=== PATIENT | female | born 1980 | race Caucasian/White ===

== ENCOUNTER 2016-12-04 10:29 | Emergency (ER) | payer OTHER ==
[~2016-12-04] VITALS: Ht 160 cm; Wt 52.0 kg
[~2016-12-04 10:29] MED LIST: ACET-1256 PO; IMT100 PO; METH500T37 PO; ONDA-63 PO; PRT/40 PO; SUCR5SUS PO; TRAM-10 PO
[2016-12-04 10:33] VITALS: TEMP 37; Ht 160 cm; Wt 52.0 kg
[2016-12-04] MEDS ORDERED: XYLOCAINE 1%/SOD BICARB 20 ML VIAL INFIL ONE (10:44)
[2016-12-04] MEDS ORDERED: HYDROCODONE/ACETAMOPHEN 5/325MG TAB PO ONE (11:45)
[2016-12-04] MEDS ORDERED: CEPHALEXIN MONOHYDRATE 250 MG CAP PO ONE (11:45)
[2016-12-04] MEDS ORDERED: ONDANSETRON 4MG OD TAB ONE (11:49)
[2016-12-04] MEDS ORDERED: HYDR-5688 PO (12:19)
[2016-12-04] MEDS ORDERED: CEPH500C PO (12:19)
--- NOTE | 2016-12-04 12:20 | EMERGENCY ROOM VISIT NOTE ---
ED Visit Note First contact with patient: 11:21 Chief Complaint: RIGHT Foot Laceration History of Present Illness: This patient is a 35-year-old female who presents to the Emergency Department this morning for evaluation of their RIGHT foot laceration. Patient sustained the laceration while stepping on broken glass in her garage at approximately 4:30 this morning. She did not feel the laceration was as bad at that point which delayed her visit to the emergency department. They report a moderate amount of bleeding initially. They deny any numbness or tingling into the distal extremity. They have tried nothing for the pain. Patient rates her current discomfort as an 8/10. Patient's Tetanus status is currently up-to-date. Medications: Reviewed and discussed with the patient. Allergies: Morphine PMH: No pertinent past medical history. SHx: Patient is a 35-year-old female who lives locally. ROS: All pertinent positive and negative review of systems are appropriately documented in the History of Present Illness. Physical Exam: VITAL SIGNS - Vital signs and nursing notes were reviewed. GENERAL - 35-year-old female appearing her stated age who is in no acute distress. Communicates well with provider and answers questions appropriately. SKIN - There is a 5.0 cm long laceration noted to the plantar surface of the mid foot. The edges gape apart with traction. No foreign bodies appreciated. Upon further examination there are no deep structures including vessel, tendon, or bony structures appreciated. There is no active bleeding noted. MUSCULOSKELETAL -full range of motion of the RIGHT foot and toes appreciated. + 5/5 strength appreciated bilaterally. NEUROLOGIC - Spinothalamic tract was found to be intact with ability to discriminate sharp versus dull sensation at the level of hip joint down do the great toe. No sensory defects of the dorsal column were appreciated utilizing light touch for evaluation. VASCULAR - Capillary refill was brisk. IMAGING: RIGHT FOOT MIN 3 VIEWS ROUTINE CLINICAL HISTORY: Right foot pain status post trauma. COMPARISON: None. DISCUSSION: No acute fractures are visualized. There is a mild first metatarsal bunion deformity. Soft tissue irregularity involving the mid plantar aspect of the foot may be secondary to a laceration. No radiopaque foreign bodies are evident. IMPRESSION: No fractures or dislocations are visualized. No radiopaque foreign bodies are evident. ED Course: Patient was seen and evaluated by myself. Patient was provided one Valatie for pain. Costs and benefits of performing primary wound closure versus no repair were discussed with the patient who verbalizes understanding. Verbal consent was obtained prior to performing the procedure. 5.0 cc of 1% buffered lidocaine was used to anesthetize the right foot laceration. The wound was cleansed and prepped in the typical sterile fashion utilizing normal saline and Betadine. The wound was sterilely draped. Once proper anesthetization was established, the wound was further examined and demonstrated a full-thickness laceration. No foreign bodies appreciated. No deep structures injured. The wound was copiously irrigated with normal saline and Betadine. The wound was closed using 9 simple, 4-0 nylon sutures with the wound edges being loosely approximated. Patient tolerated the procedure well. No complications were met. The wound was cleansed and dressed with a Bacitracin dressing. X-ray was obtained of the affected foot. No foreign bodies noted. Patient was treated with Keflex. She' ll follow closely with orthopedic surgery for evaluation secondary to extended laceration and delayed wound closure. She was provided postop shoe and crutches. Patient educated on worrisome symptoms for return visit to the Emergency Department. Patient discharged to home in good condition. Impression: RIGHT Foot Laceration with Delayed Closure Discharge Instructions: You have received 9 sutures on your RIGHT Foot. These sutures are NOT dissolvable and WILL need to be removed by a health care provider in 12-14 days. You can return to the Emergency Department or contact your Primary Care Provider to have the sutures removed. Please use the splint and crutches until you're able to ambulate without a limp. Please follow-up ortho as discussed. Proper wound care is essential for adequate wound healing and infection prevention. You can shower and clean the wound with soap and water. Do not scour over the wound, pat dry with a towel. Do not submerse the wound (i.e. bathe or dish wash) until the sutures have been removed. You can use an antibiotic ointment with a dressing over the wound for the next 3-4 days. After this time you may leave the wound dry and open to the air. If crust develops over the wound you can use a Q-tip to apply a 1:1 peroxide:water solution to clean the wound. Look for signs of infection of the wound including: increased pain, swelling, foul discharge, streaking, or increased temperature. If any of these are noticed you should return to the Emergency Department for further assessment and treatment. As with any laceration you may have received nerve damage to the surrounding tissues. This damage may or may not be permanent. You should keep the area covered with sunscreen for the first 6 months to 1 year when at risk for exposure to help minimize scarring. You can also use scar reducing creams or Vitamin E oil to help minimize scarring. You have been prescribed Valatie to be used for pain control. This is a narcotic medication. You cannot drive or consume alcohol while on this medicine. This medicine should only be used for pain that cannot be controlled with over-the- counter pain medicines. You were prescribed Keflex to be taken as prescribed. This is an antibiotic. All antibiotics have the potential to cause diarrhea. Stop this medication and contact a medical provider if you were to develop any significant adverse side effects including: wheezing, shortness of breath, passing out, vomiting, or a diffuse rash. Always take antibiotics as directed and COMPLETE the ENTIRE course regardless of the improvement of your symptoms. For pain control, you can use the following [id number] medicines (if >12 yo): - Regular strength (325mg/tab) Tylenol (acetaminophen) 2 tabs every 4-6 hours as needed. Do not exceed 12 tablets in a 24 hour period. Avoid taking more than 4 grams (4000 mg) of Tylenol per day. This includes any other sources of acetaminophen you may take on a regular basis. - Regular strength (200 mg/tab) Advil (ibuprofen) 1-2 tabs every 4-6 hours as needed. Do not exceed a dose of 3200 mg per day. Return to the emergency department if your symptoms worsen despite treatment course outlined above. 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 (2) Gastroesophageal reflux disease Status: Chronic (3) Hiatal hernia Status: Chronic (4) Major depressive disorder Status: Chronic (5) Migraines Status: Chronic Surgical Problems: (1) S/P lumpectomy of breast Status: Chronic Current/Historical Medications Scheduled Cephalexin Monohydrate (Keflex), 500 MG PO QID Methocarbamol (Robaxin), 500 MG PO DAILY Pantoprazole (Pantoprazole Sodium), 40 MG PO BID Scheduled PRN Acetaminophen (Tylenol), 1,000 MG PO Q6H PRN for Pain Hydrocodone/Acetaminophen 5MG/325MG (Valatie 5MG/325MG), 1-2 TABLET PO Q4H PRN for Pain Ondansetron (Ondansetron HCl), 8 MG PO Q12 PRN for Nausea or Vomiting Sumatriptan Succinate (Imitrex), 100 MG PO UD PRN for Migraine Allergies Coded Allergies: Morphine (Unverified Adverse Reaction, Unknown, "MAKES ME SICK(VOMITING)" , 12/04/16) Vital Signs Date Time Temp Pulse Resp B/P Pulse Ox O2 Delivery O2 Flow Rate FiO2 12/04/16 12:44 94 18 123/82 96 Room Air 12/04/16 10:33 37.0 117 16 118/77 95 Room Air Medications Administered Medications (Trade) Dose Ordered Sig/Salo Route Start Time Stop Time Status Last Admin Dose Admin Acetaminophen/ Hydrocodone Bitart (Valatie 5/325 Tab) 1 tab NOW ONCE PO 12/04/16 11:45 12/04/16 11:46 DC 12/04/16 11:41 1 TAB Cephalexin Monohydrate (Keflex Cap) 500 mg NOW ONCE PO 12/04/16 11:45 12/04/16 11:46 DC 12/04/16 11:41 500 MG Ondansetron HCl (Zofran Odt) 4 mg STK-MED ONCE .ROUTE 12/04/16 11:49 12/04/16 11:52 DC 12/04/16 11:56 4 MG Departure Information Impression Primary Impression: Laceration of foot Dispostion Home / Self-Care Condition GOOD Prescriptions Hydrocodone/Acetaminophen 5MG/325MG (Valatie 5MG/325MG) Tab 1-2 TABLET PO Q4H Y for Pain, #20 TAB For Initial Treatment Prov: Zay Yang PA-C 12/04/16 Cephalexin Monohydrate (Keflex) 500 Mg Cap 500 MG PO QID for 5 Days, #20 CAP Prov: Zay Yang PA-C 12/04/16 Referrals Nacho Forrseter III, CRNP (PCP) Enrique Anderson D.O. Patient Instructions ED Laceration Foot, [facility] Additional Instructions You have received 9 sutures on your RIGHT Foot. These sutures are NOT dissolvable and WILL need to be removed by a health care provider in 12-14 days. You can return to the Emergency Department or contact your Primary Care Provider to have the sutures removed. Please use the splint and crutches until you're able to ambulate without a limp. Please follow-up ortho as discussed. Proper wound care is essential for adequate wound healing and infection prevention. You can shower and clean the wound with soap and water. Do not scour over the wound, pat dry with a towel. Do not submerse the wound (i.e. bathe or dish wash) until the sutures have been removed. You can use an antibiotic ointment with a dressing over the wound for the next 3-4 days. After this time you may leave the wound dry and open to the air. If crust develops over the wound you can use a Q-tip to apply a 1:1 peroxide:water solution to clean the wound. Look for signs of infection of the wound including: increased pain, swelling, foul discharge, streaking, or increased temperature. If any of these are noticed you should return to the Emergency Department for further assessment and treatment. As with any laceration you may have received nerve damage to the surrounding tissues. This damage may or may not be permanent. You should keep the area covered with sunscreen for the first 6 months to 1 year when at risk for exposure to help minimize scarring. You can also use scar reducing creams or Vitamin E oil to help minimize scarring. You have been prescribed Valatie to be used for pain control. This is a narcotic medication. You cannot drive or consume alcohol while on this medicine. This medicine should only be used for pain that cannot be controlled with over-the- counter pain medicines. You were prescribed Keflex to be taken as prescribed. This is an antibiotic. All antibiotics have the potential to cause diarrhea. Stop this medication and contact a medical provider if you were to develop any significant adverse side effects including: wheezing, shortness of breath, passing out, vomiting, or a diffuse rash. Always take antibiotics as directed and COMPLETE the ENTIRE course regardless of the improvement of your symptoms. For pain control, you can use the following [id number]-xor-yfybrog medicines (if >12 yo): - Regular strength (325mg/tab) Tylenol (acetaminophen) 2 tabs every 4-6 hours as needed. Do not exceed 12 tablets in a 24 hour period. Avoid taking more than 4 grams (4000 mg) of Tylenol per day. This includes any other sources of acetaminophen you may take on a regular basis. - Regular strength (200 mg/tab) Advil (ibuprofen) 1-2 tabs every 4-6 hours as needed. Do not exceed a dose of 3200 mg per day. Return to the emergency department if your symptoms worsen despite treatment course outlined above. Problem Qualifiers Primary Impression: Laceration of foot Encounter type: initial encounter Laterality: right Qualified Codes: S91.311A - Laceration without foreign body, right foot, initial encounter
--- NOTE | 2016-12-04 12:38 | DIAGNOSTIC IMAGING REPORT ---
RIGHT FOOT MIN 3 VIEWS ROUTINE CLINICAL HISTORY: Right foot pain status post trauma. COMPARISON: None. DISCUSSION: No acute fractures are visualized. There is a mild first metatarsal bunion deformity. Soft tissue irregularity involving the mid plantar aspect of the foot may be secondary to a laceration. No radiopaque foreign bodies are evident. IMPRESSION: No fractures or dislocations are visualized. No radiopaque foreign bodies are evident. Electronically signed by: Willis Virgen M.D. 12/04/2016 12:36 PM Dictated Date/Time: 12/04/2016 12:35 PM
[2016-12-04 12:44] VITALS: BP 123/82; PULSE 94; O2SAT 96
== END 2016-12-04 12:47 | disposition home or self-care (01) ==
LOC: C.EDB 10:31 → C.EDD 12:47
DX: S91.311A Laceration without foreign body, right foot, initial encounter (principal); W25.XXXA Contact with sharp glass, initial encounter; Y92.015 Private garage of single-family (private) house as the place of occurrence of the external cause; K21.9 Gastro-esophageal reflux disease without esophagitis; F32.9 Major depressive disorder, single episode, unspecified; Z79.899 Other long term (current) drug therapy

== ENCOUNTER → 2016-12-19 | Outpatient (CLI) | payer OTHER ==
[~2016-12-19] MED LIST changes: +HYDR-5688 PO; -SUCR5SUS PO; -TRAM-10 PO
[2016-12-19 11:50] LABS: ALT/SGPT 29 U/L (12-78); BLOOD UREA NITROGEN 17 mg/dl (7-18); BUN/CREATININE RATIO 23.6 (10-20); CALCIUM 9.1 mg/dl (8.5-10.1); CARBON DIOXIDE 31 mmol/L (21-32); CHLORIDE 99 mmol/L (98-107); GLUCOSE 149 mg/dl (70-99); POTASSIUM 3.8 mmol/L (3.5-5.1); SODIUM 137 mmol/L (136-145)
[2016-12-19 12:01] LABS: ALB/GLOB RATIO 1.1 (0.9-2); ALKALINE PHOSPHATASE 104 U/L (45-117); AST/SGOT 24 U/L (15-37)
== END | disposition home or self-care (01) ==
LOC: C.LAB1850 10:12
PROVIDERS: ATTEND Nurse Practitioner Family
DX: F32.9 Major depressive disorder, single episode, unspecified (principal); R74.8 Abnormal levels of other serum enzymes; Z87.19 Personal history of other diseases of the digestive system

== ENCOUNTER → 2016-12-24 | Outpatient (CLI) | payer OTHER ==
[~2016-12-24] MED LIST changes: +PANT40TA2 PO; -PRT/40 PO
== END | disposition home or self-care (01) ==
LOC: C.PAPS 14:42
PROVIDERS: ATTEND Physician Assistant
DX: Z12.4 Encounter for screening for malignant neoplasm of cervix (principal)

== ENCOUNTER 2017-09-22 08:41 | Emergency (ER) | payer OTHER ==
[~2017-09-22] VITALS: Ht 160 cm; Wt 52.0 kg
[~2017-09-22 08:41] MED LIST changes: -HYDR-5688 PO
[2017-09-22 08:44] VITALS: TEMP 36.6; Ht 160 cm; Wt 52.0 kg
[2017-09-22] MEDS ORDERED: ONDANSETRON INJ 2 MG/ML 2 ML VIAL IV STA (08:50)
[2017-09-22] MEDS ORDERED: SODIUM CHLORIDE 0.9% 1000ML 1,000 ML IV STA ×2 (08:50→10:26)
--- NOTE | 2017-09-22 09:19 | EMERGENCY ROOM VISIT NOTE ---
History Report prepared by Sherif: Kourtney Savage Under the Supervision of: Dr. Austin Church M.D. First contact with patient: 08:47 Chief Complaint: GI ASSESSMENT Stated Complaint: EXTREME PAIN/VOMITING Nursing Triage Summary: pt ot the ED with c/o epigastric pain with n/v since yesterday History of Present Illness The patient is a 36 year old female who presents to the Emergency Room with complaints of constant epigastric pain beginning two days ago. The patient states she has also had nausea and vomiting. She rates her pain as a 9/10. She denies any blood in her vomit or stool. The patient has a history of pancreatitis. She reports she was supposed to have her gallbladder removed a year ago but didn't end up needing too because she changed her eating habits. The patient notes increased stress over the past two weeks. The patient notes decreased appetite but denies diarrhea or fever. She reports taking Tylenol, Zofran, and Protonix with no relief. She denies any chance of . She has been using some alcohol over the holidays. Source of History: patient Onset: two days ago Position: other (epigatric) Symptom Intensity: 9/10 Timing: constant Associated Symptoms: + nausea, + vomiting, No fevers, No diarrhea Review of Systems See HPI for pertinent positives & negatives. A total of 10 systems reviewed and were otherwise negative. Past Medical & Surgical Medical Problems: (1) Acute gallstone pancreatitis (2) Drug overdose (3) Epigastric abdominal pain (4) Gastroesophageal reflux disease (5) Hiatal hernia (6) Major depressive disorder (7) Migraines (8) Peptic ulcer disease (9) RUQ abdominal pain Surgical Problems: (1) S/P lumpectomy of breast Family History Cancer Diabetes mellitus Gastric ulcer Heart disease Hypertension FATHER Kidney disease Kidney stones Stroke FATHER Social History Smoking Status: Never Smoker Alcohol Use: occasionally Drug Use: none Marital Status: single Housing Status: lives alone Occupation Status: unemployed Current/Historical Medications Scheduled Cephalexin Monohydrate (Keflex), 500 MG PO TID Methocarbamol (Robaxin), 500 MG PO DAILY Pantoprazole (Pantoprazole Sodium), 40 MG PO BID Scheduled PRN Acetaminophen (Tylenol), 1,000 MG PO Q6H PRN for Pain Ondansetron (Ondansetron HCl), 8 MG PO Q12 PRN for Nausea or Vomiting Oxycodone Ir (Roxicodone Ir), 1-2 TAB PO Q4H PRN for Pain Promethazine Hcl (Phenergan), 25 MG PO Q6H PRN for Nausea Sumatriptan Succinate (Imitrex), 100 MG PO UD PRN for Migraine Allergies Coded Allergies: Morphine (Unverified Adverse Reaction, Unknown, "MAKES ME SICK(VOMITING)" , 09/22/17) Physical Exam Vital Signs Date Time Temp Pulse Resp B/P (MAP) Pulse Ox O2 Delivery O2 Flow Rate FiO2 09/22/17 10:23 86 18 129/8 98 Room Air 09/22/17 08:44 36.6 98 16 132/92 98 Room Air Physical Exam GENERAL: Patient is in no acute distress. HEENT: No acute trauma, normocephalic atraumatic, mucous membranes dry, no nasal congestion, no scleral icterus. NECK: No stridor, no adenopathy, no meningismus, trachea is midline. LUNGS: Clear to auscultation bilaterally, no wheeze, no rhonchi, breath sounds equal. HEART: Without murmurs gallops or rubs, regular rate and rhythm. ABDOMEN: Moderately tender to epigastric region. Soft, bowel sounds positive, no hernias, no peritonitis. EXTREMITIES: No cyanosis or edema, full range of motion of all the joints without pain or difficulty, no signs for acute trauma. NEUROLOGIC: Oriented x 3, no acute motor or sensory deficits, no focal weakness. SKIN: No rash, no jaundice, no diaphoresis. Medical Decision & Procedures ER Provider Diagnostic Interpretation: Radiology results as stated below per my review and radiologist interpretation: ABDOMEN 2VIEW W/PA CHEST RTN FINDINGS: Cardiomediastinal silhouette normal. Lungs and pleural spaces clear. Nonobstructive bowel gas pattern. No gross pneumoperitoneum. Allowing for bowel gas and stool, no calcifications to suggest nephrolithiasis. Multiple pelvic phleboliths noted. Osseous structures normal. IMPRESSION: 1. No acute cardiopulmonary disease. 2. No radiographic evidence of acute intra-abdominal pathology. Electronically signed by: Enrique Mast M.D. GALLBLADDER-ABD LIMITED FINDINGS: Pancreas: Visualized portions of the pancreatic head and body normal. Mildly prominent ducts though within the range of normal. Liver: Moderately hyperechogenic parenchyma with partial obscuration of the right hemidiaphragm, likely indicating moderate steatosis. The liver measures 16 cm in maximal sagittal dimension. No sonographic evidence of hepatic mass. Main portal vein patent with normal directional flow. Biliary: No intrahepatic biliary ductal dilatation. Common bile duct measures up to 6 mm in diameter. Gallbladder: Gallbladder sludge may be present. No evidence of gallstones, gallbladder wall thickening, gallbladder distention, or pericholecystic fluid or inflammatory change. Right kidney: Normal in appearance. No hydronephrosis. Ascites: None. IMPRESSION: 1. Hepatic steatosis. Correlate with liver function tests to exclude steatohepatitis as a cause for abdominal pain. 2. No cholelithiasis or biliary ductal dilatation. Electronically signed by: Enrique Mast M.D. Laboratory Results 09/22/17 09:10 Red Blood Count 4.54, Mean Corpuscular Volume 100.9, Mean Corpuscular Hemoglobin 34.4, Mean Corpuscular Hemoglobin Concent 34.1, Mean Platelet Volume 9.5, Neutrophils (%) (Auto) 63.5, Lymphocytes (%) (Auto) 21.6, Monocytes (%) ( Auto) 14.2, Eosinophils (%) (Auto) 0.2, Basophils (%) (Auto) 0.3, Neutrophils # (Auto) 4.11, Lymphocytes # (Auto) 1.40, Monocytes # (Auto) 0.92, Eosinophils # ( Auto) 0.01, Basophils # (Auto) 0.02 09/22/17 09:10 Test 09/22/17 09:10 09/22/17 10:42 White Blood Count 6.47 K/uL (4.8-10.8) Red Blood Count 4.54 M/uL (4.2-5.4) Hemoglobin 15.6 g/dL (12.0-16.0) Hematocrit 45.8 % (37-47) Mean Corpuscular Volume 100.9 fL (80-100) Mean Corpuscular Hemoglobin 34.4 pg (25-34) Mean Corpuscular Hemoglobin Concent 34.1 g/dl (32-36) Platelet Count 258 K/uL (130-400) Mean Platelet Volume 9.5 fL (7.4-10.4) Neutrophils (%) (Auto) 63.5 % Lymphocytes (%) (Auto) 21.6 % Monocytes (%) (Auto) 14.2 % Eosinophils (%) (Auto) 0.2 % Basophils (%) (Auto) 0.3 % Neutrophils # (Auto) 4.11 K/uL (1.4-6.5) Lymphocytes # (Auto) 1.40 K/uL (1.2-3.4) Monocytes # (Auto) 0.92 K/uL (0.11-0.59) Eosinophils # (Auto) 0.01 K/uL (0-0.5) Basophils # (Auto) 0.02 K/uL (0-0.2) RDW Standard Deviation 48.1 fL (36.4-46.3) RDW Coefficient of Variation 13.2 % (11.5-14.5) Immature Granulocyte % (Auto) 0.2 % Immature Granulocyte # (Auto) 0.01 K/uL (0.00-0.02) Urine Color SULY Urine Appearance CLOUDY (CLEAR) Urine pH 5.0 (4.5-7.5) Urine Specific [place] 1.043 (1.000-1.030) Urine Protein 1+ (NEG) Urine Glucose (UA) NEG (NEG) Urine Ketones 4+ (NEG) Urine Occult Blood 2+ (NEG) Urine Nitrite POS (NEG) Urine Bilirubin NEG (NEG) Urine Urobilinogen NEG (NEG) Urine Leukocyte Esterase TRACE (NEG) Urine WBC (Auto) 1-5 /hpf (0-5) Urine RBC (Auto) 10-30 /hpf (0-4) Urine Hyaline Casts (Auto) 1-5 /lpf (0-5) Urine Epithelial Cells (Auto) >30 /lpf (0-5) Urine Bacteria (Auto) 1+ (NEG) Urine Pathogenic Casts /lpf (0) Urine Mucus PRESENT (NONE PRSENT) Anion Gap 12.0 mmol/L (3-11) Est Creatinine Clear Calc Drug Dose 94.4 ml/min Estimated GFR () 130.1 Estimated GFR (Non- 112.3 BUN/Creatinine Ratio 13.2 (10-20) Calcium Level 8.8 mg/dl (8.5-10.1) Magnesium Level 2.0 mg/dl (1.8-2.4) Total Bilirubin 1.2 mg/dl (0.2-1) Direct Bilirubin 0.3 mg/dl (0-0.2) Aspartate Amino Transf (AST/SGOT) 155 U/L (15-37) Alanine Aminotransferase (ALT/SGPT) 136 U/L (12-78) Alkaline Phosphatase 193 U/L (45-117) Troponin I < 0.015 ng/ml (0-0.045) Total Protein 7.6 gm/dl (6.4-8.2) Albumin 4.1 gm/dl (3.4-5.0) Lipase 358 U/L (73-393) Human Chorionic Gonadotropin, Qual NEG (NEG) Hepatitis B Surface Antigen NEG (NEG) Hepatitis C Antibody NEG (NEG) Laboratory results reviewed by me. Medications Administered Medications (Trade) Dose Ordered Sig/Salo Route Start Time Stop Time Status Last Admin Dose Admin Ondansetron HCl (Zofran Inj) 4 mg NOW STAT IV 09/22/17 08:50 09/22/17 08:55 DC 09/22/17 09:20 4 MG Sodium Chloride 1,000 ml @ 999 mls/hr Q1H1M STAT IV 09/22/17 08:50 09/22/17 09:50 DC 09/22/17 09:21 999 MLS/HR Hydromorphone HCl (Dilaudid Inj) 1 mg Q30M PRN IV 09/22/17 09:00 09/22/17 12:00 DC 09/22/17 10:11 1 MG Promethazine HCl 12.5 mg/Sodium Chloride 50.5 ml @ 204 mls/hr NOW STAT IV 09/22/17 10:05 09/22/17 10:19 DC 09/22/17 10:23 204 MLS/HR Ceftriaxone Sodium (Rocephin Inj) 1 gm NOW STAT IV 09/22/17 10:13 09/22/17 10:14 DC 09/22/17 10:33 1 GM Sodium Chloride 1,000 ml @ 999 mls/hr Q1H1M STAT IV 09/22/17 10:26 09/22/17 11:26 DC 09/22/17 10:30 999 MLS/HR Promethazine HCl (Phenergan Tab) 100 mg NOW ONCE PO 09/22/17 11:30 09/22/17 11:31 DC 09/22/17 11:43 100 MG Oxycodone HCl (Roxicodone Immediate Rel 5MG Home Pack) 1 homepack UD ONCE PO 09/22/17 11:30 09/22/17 11:31 DC 09/22/17 11:42 1 HOMEPACK Oxycodone HCl (Roxicodone Immediate Rel 5MG Home Pack) 1 homepack UD ONCE PO 09/22/17 11:30 09/22/17 11:31 DC 09/22/17 11:44 1 HOMEPACK Cephalexin Monohydrate (Keflex 500MG Home Pack) 1 homepack NOW ONCE PO 09/22/17 11:30 09/22/17 11:31 DC 09/22/17 11:43 1 HOMEPACK ED Course 0849: The patient was evaluated in room B7. A complete history and physical exam was performed. 0850: Ordered Sodium Chloride 1000 ml @ 999 mls/hr IV, Zofran Inj 4 mg IV. 0900: Ordered Dilaudid Inj 1 mg IV. 1003: The patient is still vomiting. 1005: Ordered Promethazine HCl 12.5 mg/Sodium Chloride 50.5 ml @ 204 mls/hr IV. 1013: Ordered Rocephin Inj 1 gm IV. 1024: I updated the patient and she is feeling a little better. I talked to her about staying in the hospital and she would like to go home. She would like to talk to her GI doctor tomorrow. 1026: Ordered Sodium Chloride 1000 ml @ 999 mls/hr IV. 1109: The patient is feeling better and is resting comfortably. 1130: Ordered Cephalexin Monohydrate 1 homepack PO, Oxycodone HCl 1 homepack PO , Oxycodone HCl 1 homepack PO, Phenergan Tab 100 mg PO. 1140: The patient is doing well and would like to go home. 1145: Reevaluated the patient. Discussed results and discharge instructions: She verbalized understanding and agreement. The patient is ready for discharge. Medical Decision Differential diagnoses include: bowel obstruction, gastritis, pancreatitis, biliary colic, acute cholecystitis, UTI, dehydration, electrolyte imbalance, viral illness, food borne illness. There is no leukocytosis or concerning anemia. No significant electrolyte abnormality or kidney failure. No evidence for pancreatitis. EKG shows a sinus rhythm, no acute ischemia. Cardiac enzyme testing times one is not consistent with acute cardiac injury. Liver enzyme testing does show elevations consistent with a hepatitis. Obstruction series shows no bowel obstruction or free air, no pneumonia. Gallbladder ultrasound did not show evidence for acute cholecystitis or for gallstones. Urinalysis is suggestive of infection. Urine culture is pending. The patient received IV saline, IV Zofran and IV Dilaudid. She was given IV Phenergan and IV ceftriaxone. I talked to the patient about staying in the hospital because of the liver enzyme elevations, she does not want to stay. She will contact her GI doctor tomorrow. She wants to go home as it is . The patient will be discharged on Keflex for the urinary infection, Phenergan for nausea and oxycodone for pain. She will stick to a very bland diet. She will stay hydrated. If she is worsening, she has agreed to return for reassessment. I suspect her gallbladder is responsible for her presentation today although the UTI could be contributing. She has had issues similar to today's in the past. [place] Drug Monitoring Program Search Results: patient reviewed within database, no issues identified Medication Reconcilliation Current Medication List: was personally reviewed by me Blood Pressure Screening Patient's blood pressure: Elevated blood pressure Blood pressure disposition: Elevated BP felt to be situational Impression Primary Impression: Nausea & vomiting Additional Impressions: Dehydration Hepatitis UTI (urinary tract infection) Scribe Attestation The scribe's documentation has been prepared under my direction and personally reviewed by me in its entirety. I confirm that the note above accurately reflects all work, treatment, procedures, and medical decision making performed by me. Departure Information Dispostion Home / Self-Care Prescriptions Oxycodone Ir (Roxicodone Ir) 5 Mg Tab 1-2 TAB PO Q4H Y for Pain, #6 TAB Prov: Austin Church M.D. 09/22/17 Promethazine Hcl (Phenergan) 25 Mg Tab 25 MG PO Q6H Y for Nausea, #12 TAB Prov: Austin Church M.D. 09/22/17 Cephalexin Monohydrate (Keflex) 500 Mg Cap 500 MG PO TID for 7 Days, #21 CAP Prov: Austin Church M.D. 09/22/17 Referrals Nacho Forrester III, CRNP (PCP) Forms HOME CARE DOCUMENTATION FORM, IMPORTANT VISIT INFORMATION Patient Instructions My [facility] Additional Instructions phenergan 1 tab every 6 hours for nausea bland diet--crackers, soup, toast, gatorade oxy ir 1-2 tab every 4 hours for pain keflex 1 tab 3x per day for [address] Kelley tomorrow return for fever, worsening symptoms or persistent vomiting Problem Qualifiers
[2017-09-22] MEDS: HYDROmorphone INJ 2 MG/ML SYR/VIAL IV PRN ×2 (09:20→10:11)
[2017-09-22 09:25] LABS: BASO % 0.3 %; BASO ABS # 0.02 K/uL (0-0.2); COMPLETE YES; EOS % 0.2 %; HEMATOCRIT 45.8 % (37-47); IG% 0.2 %; LYMPH % 21.6 %; MEAN CELL VOLUME 100.9 fL (80-100); MEAN CORPUSCULAR HEMOGLOBIN 34.4 pg (25-34); MEAN CORPUSCULAR HGB CONC 34.1 g/dl (32-36); MEAN PLATELET VOLUME 9.5 fL (7.4-10.4); MONO % 14.2 %; NEUT % 63.5 %; PLATELET COUNT 258 K/uL (130-400); RED BLOOD COUNT 4.54 M/uL (4.2-5.4); WHITE BLOOD COUNT 6.47 K/uL (4.8-10.8)
[2017-09-22 09:29] LABS: URINE APPEARANCE CLOUDY (CLEAR); URINE EPITHELIAL CELL AUTO >30 /lpf (0-5); URINE NITRITE POS (NEG); URINE SPECIFIC GRAVITY 1.043 (1.000-1.030); UROBILINOGEN NEG (NEG)
[2017-09-22 09:39] LABS: MANUAL MICROSCOPIC REQUIRED? NO; REVIEW REQ? YES
[2017-09-22 09:41] LABS: ALT/SGPT 136 U/L (12-78); BLOOD UREA NITROGEN 9 mg/dl (7-18); BUN/CREATININE RATIO 13.2 (10-20); CALCIUM 8.8 mg/dl (8.5-10.1); CARBON DIOXIDE 28 mmol/L (21-32); CHLORIDE 93 mmol/L (98-107); CREATININE 0.67 mg/dl (0.60-1.20); GLUCOSE 97 mg/dl (70-99); POTASSIUM 3.5 mmol/L (3.5-5.1); SODIUM 133 mmol/L (136-145); URINE BILIRUBIN NEG (NEG); URINE COLOR AMBER
[2017-09-22 09:46] LABS: ALKALINE PHOSPHATASE 193 U/L (45-117); AST/SGOT 155 U/L (15-37)
[2017-09-22 09:50] LABS: URINE MUCUS PRESENT (NONE PRSENT)
[2017-09-22 09:52] LABS: ZZUR CULT IF INDIC CLEAN CATCH YES
[2017-09-22 09:53] LABS: PREG INTERNAL NEGATIVE QC NEG CLEAR BACKGROUND; PREG INTERNAL POSITIVE QC POS CONTROL LINE
[2017-09-22] MEDS ORDERED: PROMETHAZINE HCL INJ 12.5 MG in SODIUM CHLORIDE 0.9% 50ML 50 ML IV STA (10:05)
--- NOTE | 2017-09-22 10:06 | DIAGNOSTIC IMAGING REPORT ---
GALLBLADDER-ABD LIMITED CLINICAL HISTORY: 36 years-old Female presenting with ABDOMINAL PAIN/GI. TECHNIQUE: Real-time grayscale and limited color Doppler ultrasound imaging of the abdomen limited to the right upper quadrant was performed. COMPARISON: 08/16/2016. FINDINGS: Pancreas: Visualized portions of the pancreatic head and body normal. Mildly prominent ducts though within the range of normal. Liver: Moderately hyperechogenic parenchyma with partial obscuration of the right hemidiaphragm, likely indicating moderate steatosis. The liver measures 16 cm in maximal sagittal dimension. No sonographic evidence of hepatic mass. Main portal vein patent with normal directional flow. Biliary: No intrahepatic biliary ductal dilatation. Common bile duct measures up to 6 mm in diameter. Gallbladder: Gallbladder sludge may be present. No evidence of gallstones, gallbladder wall thickening, gallbladder distention, or pericholecystic fluid or inflammatory change. Right kidney: Normal in appearance. No hydronephrosis. Ascites: None. IMPRESSION: 1. Hepatic steatosis. Correlate with liver function tests to exclude steatohepatitis as a cause for abdominal pain. 2. No cholelithiasis or biliary ductal dilatation. Electronically signed by: Enrique Mast M.D. 09/22/2017 10:05 AM Dictated Date/Time: 09/22/2017 9:55 AM
--- NOTE | 2017-09-22 10:07 | DIAGNOSTIC IMAGING REPORT ---
ABDOMEN 2VIEW W/PA CHEST RTN CLINICAL HISTORY: 36 years-old Female presenting with vomiting, epigastric pain. TECHNIQUE: PA view of the chest and supine and upright views of the abdomen were obtained. COMPARISON: 02/25/2016. FINDINGS: Cardiomediastinal silhouette normal. Lungs and pleural spaces clear. Nonobstructive bowel gas pattern. No gross pneumoperitoneum. Allowing for bowel gas and stool, no calcifications to suggest nephrolithiasis. Multiple pelvic phleboliths noted. Osseous structures normal. IMPRESSION: 1. No acute cardiopulmonary disease. 2. No radiographic evidence of acute intra-abdominal pathology. Electronically signed by: Enrique Mast M.D. 09/22/2017 10:06 AM Dictated Date/Time: 09/22/2017 10:05 AM
[2017-09-22] MEDS ORDERED: CEFTRIAXONE SOD INJ 1 GM ADDVIAL IV STA (10:13)
[2017-09-22 10:23] VITALS: BP 129/8; PULSE 86; O2SAT 98
[2017-09-22] MEDS ORDERED: CEPHALEXIN 500MG HOME PACK 1 EA BTL PO ONE (11:30)
[2017-09-22] MEDS ORDERED: PROMETHAZINE HCL 25 MG TAB PO ONE (11:30)
[2017-09-22] MEDS ORDERED: OXYCODONE IR HOME PACK PO ONE ×2 (11:30)
[2017-09-22] MEDS ORDERED: CEPH500C PO (11:32)
[2017-09-22] MEDS ORDERED: PROM25TA9 PO (11:32)
[2017-09-22] MEDS ORDERED: OXYC1TAB3 PO (11:32)
[2017-09-22] MEDS ORDERED: EMPTY 8 DRAM VIAL ONE (11:34)
== END 2017-09-22 11:51 | disposition home or self-care (01) ==
LOC: C.EDB 08:43
DX: R11.2 Nausea with vomiting, unspecified (principal); E86.0 Dehydration; K75.9 Inflammatory liver disease, unspecified; N39.0 Urinary tract infection, site not specified; K21.9 Gastro-esophageal reflux disease without esophagitis; Z87.19 Personal history of other diseases of the digestive system; Z87.11 Personal history of peptic ulcer disease; Z80.9 Family history of malignant neoplasm, unspecified; Z83.3 Family history of diabetes mellitus; Z83.79 Family history of other diseases of the digestive system; Z82.49 Family history of ischemic heart disease and other diseases of the circulatory system; Z84.1 Family history of disorders of kidney and ureter; Z82.3 Family history of stroke

== ENCOUNTER 2018-04-26 16:18 | Emergency (ER) | payer OTHER ==
[~2018-04-26] VITALS: Ht 160 cm; Wt 50.7 kg
[2018-04-26 16:24] VITALS: O2SAT 100; Ht 160 cm; Wt 50.7 kg
[2018-04-26] MEDS ORDERED: SODIUM CHLORIDE 0.9% 1000ML 1,000 ML IV STA (16:36)
[2018-04-26] MEDS ORDERED: SODIUM CHLORIDE 0.9% 1000ML 1,000 ML IV ONE (16:36)
--- NOTE | 2018-04-26 16:37 | EMERGENCY ROOM VISIT NOTE ---
History Report prepared by Sherif: Singh Marmolejo Under the Supervision of: Dr. Fernando Euceda M.D. First contact with patient: 16:24 Chief Complaint: SYNCOPE Stated Complaint: SYNCOPE OR SEIZURE History of Present Illness The patient is a 37 year old female who presents to the Emergency Room with complaints of a resolved syncopal episode that occurred prior to arrival. 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 She reports she was at work today when she walked into the kitchen and felt warm. The patient notes the next thing she remembered she was on the ground with cooks around her. She states she does not remember being laid down. The patient reports she was told she was out for 1 minute. She notes she did not eat much yesterday, and she did not eat today. The patient states she was too nervous last night to sleep. She reports she recently started BuSpar and Zoloft a few days ago, and she has not felt herself. The patient notes she did not take BuSpar today. She states a history of migraines and used Imitrex a few days ago. The patient denies recent sickness, a history of these symptoms, a history of seizures, a history of heart problems, fevers, numbness, weakness, headache, biting her tongue, incontinent of urine, shortness of breath, chest pain, abdominal pain, control use, chance of , alcohol dependency, taking extra medication, and history of thyroid problems. 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 All other systems reviewed were negative unless otherwise stated in history. At least 10 were reviewed Past Medical & Surgical Medical Problems: (1) Acute gallstone pancreatitis (2) Drug overdose (3) Epigastric abdominal pain (4) Gastroesophageal reflux disease (5) Hiatal hernia (6) Major depressive disorder (7) Migraines (8) Peptic ulcer disease (9) RUQ abdominal pain Surgical Problems: (1) S/P lumpectomy of breast Old medical records were reviewed. Nurse's notes were reviewed and I agree with. Family History Cancer Diabetes mellitus Gastric ulcer Heart disease Hypertension FATHER Kidney disease Kidney stones Stroke FATHER Social History Smoking Status: Never Smoker Alcohol Use: occasionally Drug Use: none Marital Status: single Housing Status: lives alone Occupation Status: unemployed Current/Historical Medications Scheduled Buspirone HCl (Buspirone HCl), 5 MG PO BID Methocarbamol (Robaxin), 500 MG PO DAILY Pantoprazole (Pantoprazole Sodium), 40 MG PO BID Sertraline (Zoloft), 100 MG PO DAILY Scheduled PRN Acetaminophen (Tylenol), 1,000 MG PO Q6H PRN for Pain Ondansetron (Ondansetron HCl), 8 MG PO Q12 PRN for Nausea or Vomiting Sumatriptan Succinate (Imitrex), 100 MG PO UD PRN for Migraine Allergies Coded Allergies: Morphine (Unverified Adverse Reaction, Unknown, "MAKES ME SICK(VOMITING)" , 04/26/18) Physical Exam Vital Signs Date Time Temp Pulse Resp B/P (MAP) Pulse Ox O2 Delivery O2 Flow Rate FiO2 04/26/18 20:54 36.9 95 21 121/81 100 04/26/18 19:49 96 22 118/78 100 Room Air 04/26/18 18:36 99 18 118/77 99 Room Air 04/26/18 18:01 106 16 109/76 100 Room Air 04/26/18 16:56 122 18 137/82 100 Room Air 04/26/18 16:30 125 04/26/18 16:24 36.9 125 12 143/101 99 Room Air 04/26/18 16:24 100 Room Air Physical Exam General: Non-ill appearing, mildly shaking with movements, young female in no acute distress. HEENT: Normal cephalic atraumatic. Pupils are equal round and reactive to light. Extraocular movements are intact. Oropharynx is pink with moist mucous membranes. No swelling of the mouth or lips. Abrasion to the left lateral tongue. Neck: Supple with a midline trachea. No meningeal signs or stiffness, no JVD or bruits. No Stridor. Chest: Clear to auscultation bilaterally. No wheezes or rhonchi. No increased work of breathing. Heart: Tachycardic rate and regular rhythm. Abdomen: Soft nontender, nondistended without rebound guarding or rigidity. Extremities: No cyanosis clubbing or edema. No calf tenderness or assymetry Spine/Back. Non tender to palpation. No CVA tenderness Skin: Good turgor without rashes. Neurologic exam: Alert and oriented x3, answers questions appropriately. Cranial nerves two through 12 are intact. Motor and sensation are intact and symmetrical throughout. Medical Decision & Procedures ER Provider Diagnostic Interpretation: Radiology results as stated below per my review and radiologist interpretation: HEAD WITHOUT CONTRAST (CT) CT DOSE: 537.48 mGy.cm HISTORY: Mental status change seizure TECHNIQUE: Multiaxial CT images of the head were performed without the use of intravenous contrast. A dose lowering technique was utilized adhering to the principles of ALARA. Comparison: 08/14/2011 Findings: The paranasal sinuses and mastoid air cells are clear. The calvarium and skull base are intact. The ventricles and sulci are within normal limits. There is no mass, hematoma, midline shift, or acute infarct. Impression: No acute intracranial abnormality. The above report was generated using voice recognition software. It may contain grammatical, syntax or spelling errors. Electronically signed by: Mike Del Rio M.D. 04/26/2018 5:26 PM Dictated Date/Time: 04/26/2018 5:25 PM ECTOPIC CLINICAL HISTORY: eval for ectopic pain TECHNIQUE: Ultrasound COMPARISON STUDY: None FINDINGS: An intrauterine gestational sac is identified. A yolk sac is present. pole cannot be confirmed on this may be secondary to the very early gestational age of 5 weeks 2 days. The right ovary measures 2.9 cm. Left ovary measures 2.5 cm. Several small subcentimeter follicular cysts. IMPRESSION: Intrauterine gestational sac. A pole cannot be identified although this may be secondary to the early gestational age. Follow-up scanning in 2 weeks is suggested to confirm viability. The above report was generated using voice recognition software. It may contain grammatical, syntax or spelling errors. Electronically signed by: Mike Del Rio M.D. 04/26/2018 7:38 PM Dictated Date/Time: 04/26/2018 7:37 PM Laboratory Results 04/26/18 16:46 Red Blood Count 4.04, Mean Corpuscular Volume 97.5, Mean Corpuscular Hemoglobin 34.4, Mean Corpuscular Hemoglobin Concent 35.3, Mean Platelet Volume 9.0, Neutrophils (%) (Auto) 78.8, Lymphocytes (%) (Auto) 10.7, Monocytes (%) (Auto) 9.8, Eosinophils (%) (Auto) 0.1, Basophils (%) (Auto) 0.5, Neutrophils # (Auto) 5.78, Lymphocytes # (Auto) 0.79, Monocytes # (Auto) 0.72, Eosinophils # (Auto) 0.01, Basophils # (Auto) 0.04 04/26/18 16:46 Test 04/26/18 16:40 04/26/18 16:46 Urine Test POS (NEG) White Blood Count 7.35 K/uL (4.8-10.8) Red Blood Count 4.04 M/uL (4.2-5.4) Hemoglobin 13.9 g/dL (12.0-16.0) Hematocrit 39.4 % (37-47) Mean Corpuscular Volume 97.5 fL (80-100) Mean Corpuscular Hemoglobin 34.4 pg (25-34) Mean Corpuscular Hemoglobin Concent 35.3 g/dl (32-36) Platelet Count 244 K/uL (130-400) Mean Platelet Volume 9.0 fL (7.4-10.4) Neutrophils (%) (Auto) 78.8 % Lymphocytes (%) (Auto) 10.7 % Monocytes (%) (Auto) 9.8 % Eosinophils (%) (Auto) 0.1 % Basophils (%) (Auto) 0.5 % Neutrophils # (Auto) 5.78 K/uL (1.4-6.5) Lymphocytes # (Auto) 0.79 K/uL (1.2-3.4) Monocytes # (Auto) 0.72 K/uL (0.11-0.59) Eosinophils # (Auto) 0.01 K/uL (0-0.5) Basophils # (Auto) 0.04 K/uL (0-0.2) RDW Standard Deviation 44.2 fL (36.4-46.3) RDW Coefficient of Variation 12.5 % (11.5-14.5) Immature Granulocyte % (Auto) 0.1 % Immature Granulocyte # (Auto) 0.01 K/uL (0.00-0.02) Anion Gap 14.0 mmol/L (3-11) Est Creatinine Clear Calc Drug Dose 86.0 ml/min Estimated GFR () 125.2 Estimated GFR (Non- 108.1 BUN/Creatinine Ratio 10.5 (10-20) Calcium Level 8.5 mg/dl (8.5-10.1) Total Bilirubin 0.8 mg/dl (0.2-1) Direct Bilirubin 0.3 mg/dl (0-0.2) Aspartate Amino Transf (AST/SGOT) 176 U/L (15-37) Alanine Aminotransferase (ALT/SGPT) 144 U/L (12-78) Alkaline Phosphatase 180 U/L (45-117) Total Protein 7.0 gm/dl (6.4-8.2) Albumin 3.6 gm/dl (3.4-5.0) Lipase 175 U/L (73-393) Thyroid Stimulating Hormone (TSH) 3.220 uIu/ml (0.300-4.500) Human Chorionic Gonadotropin, Quant 9403 mIU/mL Laboratory studies as stated above per my review. Medications Administered Medications (Trade) Dose Ordered Sig/Salo Route Start Time Stop Time Status Last Admin Dose Admin Sodium Chloride 1,000 ml @ 999 mls/hr Q1H1M STAT IV 04/26/18 16:36 04/26/18 17:36 DC 04/26/18 16:50 999 MLS/HR Diphenhydramine HCl (Benadryl Cap) 25 mg NOW ONCE PO 04/26/18 19:00 04/26/18 19:01 DC 04/26/18 18:53 25 MG ECG Per My Interpretation Indication: syncope Rate (beats per minute): 123 Rhythm: sinus tachycardia Findings: no acute ischemic change, other (Low voltage) Comparison ECG Date: 02/22/2016 Change: Rate has increased. ED Course 1626: Past medical records reviewed. The patient was evaluated in room B06, and a complete history and physical examination were performed. 1636: Ordered Sodium Chloride 1000 ml @ 999 mls/hr IV 1730: I reevaluated the patient, answered all of her questions, and she appears comfortable. 174: I reevaluated the patient. She is comfortable and on her way to ultrasound. 0: Ordered Benadryl 25mg PO 1937: I attempted to reevaluate the patient. She was not back from ultrasound yet. 1958: I reevaluated the patient and updated her of her current test results. She is 100% sure she does not want to keep this . She is absolute sure she wants an . 2000: I discussed the patient's case with the pharmacist. I asked her to review the patient's medication. 2008: I discussed the patient's case with Dr. Brewer, [facility]. He will follow- up with the patient as an outpatient. 2024: I spoke with Betty, the pharmacist. She states if Zoloft is a starting dose, it should be lower to 25. She notes every psychiatric drug has a chance of a syncopal or seizure episode. The Robaxin is the worst for her , and she should stop it if she wants to continue the . 2032: Upon reevaluation, the patient is resting. I discussed the results and treatment plan with her. She verbalized agreement of the treatment plan. The patient was discharged home. Medical Decision Differentials include, but are not limited to; electrolyte or metabolic abnormality, syncope, seizure, medication side-effect, dehydration, endocrinological trouble, toxicology. This patient comes in as described above. She is at work and had an episode where she apparently got stiff and looked like she was in a pass out and they helped her to the ground. She does not remember it. There was no postictal period. She did have some mild abrasions on her tongue and she may have bit her tongue. There was no incontinence. She did not sleep last night and is also on Friday psychiatric medicine. At present she feels mildly diffusely weak but has a nonfocal neurologic exam. She has nothing to suggest stroke or TIA. She has nothing to suggest infection. She has no headache. There is no trauma. IV access established hydrated IV normal saline bolus. EKG was obtained as well as CAT scan of her head and multiple blood testing and chest x- ray. I have discussed her care with her mother who is at the bedside as well. She was reassessed frequently. She was found to have a positive urine test in light of this I did a serum and it was over 8000. CAT scan of her head was done and we shielded her abdomen it was negative. EKG shows tachycardia without any significantly prolonged QT. She was very anxious initially. She has mildly low potassium and sodium and she says this is chronic. None of these are levels that would cause her symptoms. Her liver functions are mildly elevated and again this appears to be chronic. She has no abdominal pain. Ultrasound shows gestational sac that is intrauterine but no definite pole. She has had some vaginal bleeding. She asked for anxiety medication and was given Benadryl here 25 mg. she seemed to calm down after this she had minimal tremor her vital signs normalized and she is no longer significantly tachycardic. At this point, I do not think is likely a serotonin syndrome and if it was it was of mild and she has no altered mental status or clonus. I did talk to our pharmacist and shesaid that multiple medications that she is on could all cause either syncope or seizure. The patient told me that the Zoloft and BuSpar was started on these recently. The pharmacist recommended cutting the Zoloft down to 25 mg. And I also recommend the patient hold the BuSpar. In regards to , I talked to Dr. Brewer and she is to follow-up with them is unclear whether this is going to be a viable . The patient expresses to me that she has no desire to keep this and is 100% certain. she wants to terminate the . She is going to follow- up with Dr. Brewer's office and they can refer her if that is her wish. She was Rh+. In regard to her psychiatric medications, I do think she is to follow- up with her regular doctor who prescribes these. At this point, I think this is more likely medication related and not from an underlying seizure disorder. I told her that she is to be careful over the next couple days to the recheck her and she should not do any activities where she could hurt herself if she ate passed out or had another seizure. This would include swimming and driving. She and the mother were happy the plan and she was discharged to home. Medication Reconcilliation Current Medication List: was personally reviewed by me Blood Pressure Screening Patient's blood pressure: Normal blood pressure Blood pressure disposition: Did not require urgent referral Consults Consulting Physician: Betty, the pharmacist Returned Call: 2000 I discussed the patient's case with the pharmacist. I asked her to review the patient's medication. 2024: I spoke with Betty, the pharmacist. She states if Zoloft is a starting dose, it should be lower to 25. She notes every psychiatric drug has a chance of a syncopal or seizure episode. The Robaxin is the worst for her , and she should stop it if she wants to continue the . Additional Consults: Time Called: 2002 Consulted Physician: Dr. Brewer, [facility] Returned Call: 2008 Additional Comments: I discussed the patient's case with Dr. Brewer, [facility]. He will follow-up with the patient as an outpatient. Impression Primary Impression: Syncope Additional Impression: Scribe Attestation The scribe's documentation has been prepared under my direction and personally reviewed by me in its entirety. I confirm that the note above accurately reflects all work, treatment, procedures, and medical decision making performed by me. Departure Information Dispostion Home / Self-Care Referrals Diane Sorenson MD (PCP) Forms HOME CARE DOCUMENTATION FORM, IMPORTANT VISIT INFORMATION Patient Instructions My [facility] Additional Instructions Rest. Drink plenty of fluids. Ensure that you sleep adequately Hold your BuSpar- take for now Decreased your Zoloft back to 25 mg from [address] or swim or do any other activities where if you passed out or had a seizure you could hurt others until rechecked and cleared by your doctor Follow-up with your [facility] this week for recheck and possibly referral for an . If you reconsider and want to keep the do not take the Robaxin because it is potentially harmful to the fetus Follow-up with your regular doctor this week on Friday or Friday for recheck and further medication changes Problem Qualifiers Additional Impression: Weeks of gestation: less than 8 weeks Qualified Codes: Z3A.01 - Less than 8 weeks gestation of
[2018-04-26] MEDS ORDERED: BSP/5 PO (16:50)
[2018-04-26] MEDS ORDERED: SERT-234 PO (16:50)
[2018-04-26 16:55] LABS: BASO % 0.5 %; BASO ABS # 0.04 K/uL (0-0.2); EOS % 0.1 %; EOS ABS # 0.01 K/uL (0-0.5); HEMATOCRIT 39.4 % (37-47); HEMOGLOBIN 13.9 g/dL (12.0-16.0); IG# 0.01 K/uL (0.00-0.02); LYMPH % 10.7 %; LYMPH ABS # 0.79 K/uL (1.2-3.4); MEAN CELL VOLUME 97.5 fL (80-100); MEAN CORPUSCULAR HEMOGLOBIN 34.4 pg (25-34); MEAN CORPUSCULAR HGB CONC 35.3 g/dl (32-36); MONO % 9.8 %; MONO ABS # 0.72 K/uL (0.11-0.59); NEUT % 78.8 %; NEUT ABS # 5.78 K/uL (1.4-6.5); PLATELET COUNT 244 K/uL (130-400); RED CELL DISTRIBUTION WIDTH CV 12.5 % (11.5-14.5); RED CELL DISTRIBUTION WIDTH SD 44.2 fL (36.4-46.3); WHITE BLOOD COUNT 7.35 K/uL (4.8-10.8)
[2018-04-26 17:27] LABS: ALBUMIN 3.6 gm/dl (3.4-5.0); CALCIUM 8.5 mg/dl (8.5-10.1); CREATININE 0.71 mg/dl (0.60-1.20); POTASSIUM 3.3 mmol/L (3.5-5.1)
--- NOTE | 2018-04-26 17:28 | DIAGNOSTIC IMAGING REPORT ---
HEAD WITHOUT CONTRAST (CT) CT DOSE: 537.48 mGy.cm HISTORY: Mental status change seizure TECHNIQUE: Multiaxial CT images of the head were performed without the use of intravenous contrast. A dose lowering technique was utilized adhering to the principles of ALARA. Comparison: 08/14/2011 Findings: The paranasal sinuses and mastoid air cells are clear. The calvarium and skull base are intact. The ventricles and sulci are within normal limits. There is no mass, hematoma, midline shift, or acute infarct. Impression: No acute intracranial abnormality. The above report was generated using voice recognition software. It may contain grammatical, syntax or spelling errors. Electronically signed by: Mike Del Rio M.D. 04/26/2018 5:26 PM Dictated Date/Time: 04/26/2018 5:25 PM
--- NOTE | 2018-04-26 19:39 | DIAGNOSTIC IMAGING REPORT ---
ECTOPIC CLINICAL HISTORY: eval for ectopic pain TECHNIQUE: Ultrasound COMPARISON STUDY: None FINDINGS: An intrauterine gestational sac is identified. A yolk sac is present. pole cannot be confirmed on this may be secondary to the very early gestational age of 5 weeks 2 days. The right ovary measures 2.9 cm. Left ovary measures 2.5 cm. Several small subcentimeter follicular cysts. IMPRESSION: Intrauterine gestational sac. A pole cannot be identified although this may be secondary to the early gestational age. Follow-up scanning in 2 weeks is suggested to confirm viability. The above report was generated using voice recognition software. It may contain grammatical, syntax or spelling errors. Electronically signed by: Mike Del Rio M.D. 04/26/2018 7:38 PM Dictated Date/Time: 04/26/2018 7:37 PM
[2018-04-26 20:54] VITALS: BP 121/81; PULSE 95; TEMP 36.9; O2SAT 100
== END 2018-04-26 20:55 | disposition home or self-care (01) ==
LOC: EDBD 16:18 → C.EDB 16:18
DX: R55 Syncope and collapse (principal); Z33.1 Pregnant state, incidental; F32.9 Major depressive disorder, single episode, unspecified; Z79.899 Other long term (current) drug therapy; Z88.5 Allergy status to narcotic agent

== ENCOUNTER → 2018-05-01 | Outpatient (CLI) | payer OTHER ==
[~2018-05-01] MED LIST changes: +BSP/5 PO; +SERT-234 PO
== END | disposition home or self-care (01) ==
LOC: C.LAB 10:08
PROVIDERS: ATTEND Obstetrics & Gynecology
DX: O20.0 Threatened abortion (principal); Z3A.00 Weeks of gestation of pregnancy not specified

== ENCOUNTER 2018-11-12 07:24 | Inpatient (IN) ==
[2018-11-12] MEDS ORDERED: SODIUM CHLORIDE 0.9% 1000ML 2,000 ML IV ONE (07:58)
[2018-11-12] MEDS ORDERED: ONDANSETRON INJ 2 MG/ML 2 ML VIAL IV STA ×2 (07:58→09:26)
[2018-11-12] MEDS ORDERED: HYDROmorphone INJ 1 MG/ML SYRINGE IV STA ×3 (07:58→10:08)
--- NOTE | 2018-11-12 08:18 | XRay Report ---
XR chest 1V portable CLINICAL HISTORY: epigastric pain COMPARISON STUDY: 09/22/2017 FINDINGS: The cardiac and mediastinal contours are normal. There is no evidence of focal pulmonary co nsolidation. There is no evidence of failure. No pleural effusions are visualized.[ There is no free intraperitoneal air. There are peritendinous calcifications present within each shoulder. This likely secondary to calcific tendinosis. IMPRESSION: No active disease in the chest. Electronically signed by: Willis Virgen M.D. 11/12/2018 8:17 AM
[2018-11-12 08:25] LABS: Basophils # (auto) 0.07 K/uL (0-0.2); Basophils % (auto) 1.1 %; Eosinophils % (auto) 1.5 %; Hemoglobin 14.3 g/dL (12.0-16.0); Immature Granulocytes # (auto) 0.01 K/uL (0.00-0.02); Immature Granulocytes % (auto) 0.2 %; Lymphocytes # (auto) 1.92 K/uL (1.2-3.4); Lymphocytes % (auto) 29.6 %; Mean Corpuscular Hgb Conc 33.3 g/dL (32-36); Mean Corpuscular Volume 102.1 fL (80-100); Mean Platelet Volume 9.5 fL (7.4-10.4); Monocytes # (auto) 0.58 K/uL (0.11-0.59); Neutrophils % (auto) 58.6 %; Platelet Count 275 K/uL (130-400); RDW Coefficient of Variation 13.2 % (11.5-14.5); RDW Standard Deviation 49.5 fL (36.4-46.3); Red Blood Count 4.21 M/uL (4.2-5.4); White Blood Count 6.48 K/uL (4.8-10.8)
[2018-11-12 08:42] LABS: Albumin Level 4.1 gm/dl (3.4-5.0); BUN Creatinine Ratio 10.8 (10-20); Calcium 8.6 mg/dl (8.5-10.1); Creatinine Clr Calc Pharmacy 94.2 ml/min; Est GFR (African American) 129.2; Est GFR (Non-African American) 111.5; Potassium 3.7 mmol/L (3.5-5.1)
[2018-11-12 08:45] LABS: Albumin Globulin Ratio 1.1 (0.9-2); Bilirubin,Total 0.4 mg/dl (0.2-1); Globulin 3.6 gm/dl (2.5-4.0); Total Protein 7.7 gm/dl (6.4-8.2)
[2018-11-12] MEDS ORDERED: IOVERSOL 100ml IV PRN (09:50)
--- NOTE | 2018-11-12 10:02 | CT Scan Report ---
CT abd pelvis IV con only CT DOSE: 295.00 mGy.cm HISTORY: Pancreatitis. Pain. eval for pancreatitis TECHNIQUE: Multiaxial CT images of the abdomen and pelvis were performed following the use of intrave nous contrast. A dose lowering technique was utilized adhering to the principles of ALARA. COMPARISON STUDY: 08/17/2016 FINDINGS: Lung bases are clear. Mild fatty replacement of the liver. Kidneys negative for hydronephro sis. Mild edematous change of the pancreatic head and uncinate process with a trace amount of peripancreat ic fluid. Interval cholecystectomy. Slight wall thickening transverse colon possibly reactive. No evidence for abscess collection or pseudocyst. Mid and lower abdominal bowel pattern is nonobstructive. Bladder is midline. Normal appendix. IMPRESSION: 1. Findings of developing pancreatitis primarily involving the pancreatic head and uncinate process. 2. Trace amount of peripancreatic infiltrative change with mild reactive edematous change of the rutledge sverse colonic wall. 3. No evidence for abscess collection or pseudocyst at the current time. 4. Fatty infiltration of liver. IMPRESSION: No significant abnormality identified within the abdomen or pelvis. The above report was generated using voice recognition software. It may contain grammatical, syntax or spelling errors. Electronically signed by: Mike Del Rio M.D. 11/12/2018 10:00 AM
--- NOTE | 2018-11-12 11:27 | History & Physical Report ---
Date of Service November 12, 2018 Assessment & Plan (1) Pancreatitis: 37 y/o F Hx Migraines, gastric ulcers, GERD, hiatal hernia, gall stone pancreatitis, depression. Presented with moderate to severe upper abdominal pain primarily in the epigastric region. Describes nausea without vomiting. Denies SOB, CP or fevers. Labs are notable for LFT elevation and an elevated lipase. A CT of the abdomen was obtained demonstrating developing pancreatitis primarily involving the pancreatic head and uncinate process. 1) Pancreatitis - she had a cholecystectomy and there is no evidence of obstruction on CT. Her LFTs are elevated however. We will request a GI consult. Triglyceride level is ordered as she does have evidence of a fatty liver. She will be kept NPO, provided with IVF, narcotics and antiemetics as needed. 2) History of GERD and ulcers - cont Protonix 3) Depression is in remission and not presently treated. Full code - Lovenox prophylaxis Total time for this admit including review of labs, meds, imaging, records - discussion with pt and ER attending - 35 min Present on Admission?: Yes History of Present Illness Chief Complaint: Abdominal pain Primary Care Provider: Diane Sorenson MD 37 y/o F Hx Migraines, gastric ulcers, GERD, hiatal hernia, gallstone pancreatitis, depression. Presented with moderate to severe upper abdominal pain primarily in the epigastric region. Describes nausea without vomiting. Denies SOB, CP or fevers. Labs are notable for LFT elevation and an elevated lipase. A CT of the abdomen was obtained demonstrating developing pancreatitis primarily involving the pancreatic head and uncinate process. 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 Family: Father with history of CAD/ID/CVA Grandmother with history of pancreatic CA and CAD/ID Allergies Allergy/AdvReac Type Severity Reaction Status Date / Time buspirone [From BuSpar] AdvReac Severe Unconscious Unverified 11/12/18 08:43 quetiapine [From Seroquel] AdvReac Severe Unconscious Unverified 11/12/18 08:43 morphine AdvReac Unknown "MAKES ME Unverified 11/12/18 08:43 SICK(VOMITING)" Home Medications Home Medications Medication Instructions Recorded Confirmed Type acetaminophen [Tylenol Arthritis 650 mg PO DAILY 11/12/18 11/12/18 History Pain] cyanocobalamin (vitamin B-12) 0 mcg PO QAM 11/12/18 11/12/18 History [Vitamin B-12] magnesium 0 mg PO QAM 11/12/18 11/12/18 History methocarbamol 500 mg PO QAM 11/12/18 11/12/18 History ondansetron 8 mg PO Q12H PRN 11/12/18 11/12/18 History pantoprazole [Protonix] 40 mg PO QAM 11/12/18 11/12/18 History pediatric multivitamin [Gummi Bear 1 tab PO QAM 11/12/18 11/12/18 History Multivitamin] riboflavin (vitamin B2) [Vitamin 0 mg PO QAM 11/12/18 11/12/18 History B-2] sumatriptan succinate [Imitrex] 100 mg PO UD PRN 11/12/18 11/12/18 History Past Med/Surg History Medical History Migraines (Chronic) Hiatal hernia (Chronic) Acute gallstone pancreatitis Pancreatitis Peptic ulcer disease Social History Feels Safe at Home: Yes Smoking Status: Former smoker Preferred Language: Syriac Review of Systems Gen: Denies fevers, night sweats, rigors, fatigue, malaise, weight loss/gain ENT: Denies congestion, throat pain, hearing loss Eyes: Denies acute visual changes CV: Denies CP, palpitations Pulmonary: Denies SOB, cough, wheezing GI: Nausea and abdominal pain as above Neuro: Denies acute or unilateral weakness, acute gait impairment, headache or acute visual changes Musculoskeletal: Denies joint pain, inflammation Endocrine: Denies polydipsia, polyuria Skin: Denies acute rashes or ulcers Physical Exam 2 Vital Signs (Past 24 Hours): Last Vital Signs Temp 36.5 C 11/12/18 07:32 Pulse 97 H 11/12/18 10:19 Resp 20 11/12/18 10:19 BP 122/90 11/12/18 10:19 Pulse Ox 98 11/12/18 10:19 Physical Exam: General: AAO x 3, no distress ENT: No erythema or exudates, no thrush Eyes: HANH, EOMI Head and neck: Normocephalic, atraumatic, No JVD, neck is supple. Chest/heart: Nontender, S1,2, RRR, no murmurs, no gallops Lungs: CTAB, no wheezing or crackles Abdomen: Tenderness is primarily epigastric Neuro: AAO x 3, speech is clear, no unilateral weakness or loss of sensation, coordination intact Musculoskeletal: No joint inflammation, muscle tenderness, FROM Skin: No acute rashes or ulcers Extremities: No clubbing, cyanosis, edema Results & Data Diagnostic Findings 1. Findings of developing pancreatitis primarily involving the pancreatic head and uncinate process. 2. Trace amount of peripancreatic infiltrative change with mild reactive edematous change of the transverse colonic wall. 3. No evidence for abscess collection or pseudocyst at the current time. 4. Fatty infiltration of liver. _ (1) Pancreatitis Acute pancreatitis complication: no infection or necrosis Chronicity: acute Pancreatitis type: unspecified pancreatitis type Qualified Code(s): K85.90 - Acute pancreatitis without necrosis or infection, unspecified
[2018-11-12 11:29] LABS: Appearance Urine Clear (Clear); Bilirubin Urine Negative (Negative); Color Urine Yellow; Glucose Urine UA Negative (Negative); Ketones Urine Negative (Negative); Leukocyte Esterase Urine Negative (Negative); Nitrite Urine Negative (Negative); Protein Urine Negative (Negative); Specific Gravity Urine > 1.045 (1.000-1.030); Urobilinogen Urine Negative (Negative)
[2018-11-12] MEDS ORDERED: HYDROmorphone INJ 0.5 MG/0.5 ML SYR ONE (12:17)
[2018-11-12] MEDS ORDERED: ZOLPIDEM TARTRATE 5 MG TAB PO PRN (13:37)
[2018-11-12 14:21] LABS: Prothrombin Time 10.3 Seconds (9.0-12.0)
[2018-11-12] MEDS ORDERED: LORazepam 0.5 MG/1 ML VIAL IV ONE (14:30)
[2018-11-12] MEDS: D5W AND LACTATED RINGERS 1,000 ML IV SCH ×3 (14:39→23:45)
--- NOTE | 2018-11-12 14:40 | Gastrointestinal Consultation ---
Date of Consultation November 12, 2018 Assessment & Plan (1) Pancreatitis: Pt is a 37y/o female w epigastric pain, n/v found to have LFTs, Lipase elevations and CT evidence of pancreatitis w/o abscess or pseudocyst. She is s/ p cholecystectomy, previous LFT elevation mild compared to currently. She has hx of PUD, gastritis but denies NSAIDs uses. Does take APAP on daily basis for migraines and admits to ETOH & marijuana uses. - Continue IVF resuscitation. - Obtain MRCP to r/o choledocholithiasis. - Tenatively made her NPO except sips and chip, NPO after midnight. If MRCP showed signs of choledocholithiasis will plan for ERCP tomorrow. This has been reviewed w pt. - Check Acetaminophen and ETOH level - Monitor LFTs - Recommend avoidance of ETOH. Present on Admission?: Yes Supervising Physician Co-Signing Physician Notes Late entry: Patient was seen and examined with MARYBEL Henry on 11/12. Her note reflects our findings and plan. ETOH. Imaging consistent with pancreatitis and pseudocyst. Having pain. Abd tender but exam otherwise normal. Needs adequate IVF resuscitation. PRN analgesia and anti-emetics. Bowel rest. Labs wiht 2:1 AST:ALT consistent with ETOH. AP and bili up a bit. Will await MRCP before additional plans for ERCP discussed. History of Present Illness Reason for Consultation: Pancreatitis Requesting Physician: Dr. Werner Jones Attending Physician: Dr. Jane Acosta History of Present Illness Pt is a 37 y/o female w PMHx of migraines, GERD, hx of gastric ulcer, gastritis , depression who presented to ED w c/o epigastric pain and n/v since last night. Did see some blood mixed in emesis after several bouts of vomiting but denies any shelly hematemesis. Denies any associated fever, chills, CP, SOB, bowel habit changes or sick contact. Upon eval found to have stable VS, no leukocytosis, or anemia. LFTs and Lipase were elevated: Tbili 0.4, AST 318, ALT 142, Alk phos 226, Lipase 1211. CT abd/pelvis w signs of edematous changes in pancreatic head and uncinate process w trace amt of peripancreatic fluid consistent w pancreatitis but no abscess or pseudocyst, + mild fatty liver, slight wall thickening transverse colon possibly reactive. She is s/p cholecystectomy 09/2017. Known hx of mild LFT elevation and hx of ? gallstone pancreatitis in the past. This time LFT elevation is worse than prior. Pt quit smoking tobacco 1 yr ago. She admits to smoke marijuana, said has medical card. 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 She takes Tylenol on daily basis for migraines. Hx of PUD and gastritis, denies any NSAIDs. Allergies Allergy/AdvReac Type Severity Reaction Status Date / Time buspirone [From BuSpar] AdvReac Severe Unconscious Unverified 11/12/18 08:43 quetiapine [From Seroquel] AdvReac Severe Unconscious Unverified 11/12/18 08:43 morphine AdvReac Unknown "MAKES ME Unverified 11/12/18 08:43 SICK(VOMITING)" Home Medications Home Medications Medication Instructions Recorded Confirmed Type acetaminophen [Tylenol Arthritis 650 mg PO DAILY 11/12/18 11/12/18 History Pain] cyanocobalamin (vitamin B-12) 0 mcg PO QAM 11/12/18 11/12/18 History [Vitamin B-12] magnesium 0 mg PO QAM 11/12/18 11/12/18 History methocarbamol 500 mg PO QAM 11/12/18 11/12/18 History ondansetron 8 mg PO Q12H PRN 11/12/18 11/12/18 History pantoprazole [Protonix] 40 mg PO QAM 11/12/18 11/12/18 History pediatric multivitamin [Gummi Bear 1 tab PO QAM 11/12/18 11/12/18 History Multivitamin] riboflavin (vitamin B2) [Vitamin 0 mg PO QAM 11/12/18 11/12/18 History B-2] sumatriptan succinate [Imitrex] 100 mg PO UD PRN 11/12/18 11/12/18 History Patient History Medical History Migraines (Chronic) Hiatal hernia (Chronic) Acute gallstone pancreatitis Pancreatitis (Acute) Peptic ulcer disease Arthritis Hepatitis Surgical History History of lumpectomy of right breast Social History Current Living Situation: Alone Feels Safe at Home: Yes Safety Concerns: Feels Safe At This Time Smoking Status: Former smoker Do You Dip or Chew Tobacco: No Smoking End Date: Sep, 2016 Second Hand Exposure: No Tobacco Cessation Education Requested by Patient: No Hx Alcohol Use: Yes Alcohol type: wine Alcohol Intake Frequency: other Hx Substance Use: Yes substance use type: marijuana Substance Use Type Other:: medically prescribed Beliefs That Will Affect Care: Moravian Moravian Beliefs: Mandaen Preferred Language: Lao Communication Ability: Effective Machine Hostler Required: No Review of Systems Constitutional: as per Subjective / HPI Respiratory: no cough and no dyspnea Cardiovascular: no chest pain, no lightheadedness and no edema Gastrointestinal: + abdominal pain (epigastric ), + nausea and + vomiting Physical Exam 2 Vital Signs (Past 24 Hours): Last Vital Signs Temp 36.8 C 11/12/18 13:47 Pulse 94 H 11/12/18 13:47 Resp 18 11/12/18 13:47 BP 126/88 11/12/18 13:47 Pulse Ox 96 11/12/18 13:47 Constitutional: well developed, well nourished, well groomed, cooperative and + in distress (c/o abd pain ) Eyes: PERRL, conjunctivae normal, anicteric sclerae ENMT: external ear and nose normal, oropharynx normal Respiratory: normal respiratory effort, lungs clear to auscultation Cardiovascular: RRR, no murmur, no edema Gastrointestinal (Abdomen): Inspection/Auscultation: + hypoactive bowel sounds Percussion/Palpation: + abdomen tender and abdomen soft; no guarding Skin: no rashes, warm and dry no jaundice Neurologic: Motor/Sensory: no asterixis Psychiatric: A+Ox3, euthymic affect Lymphatic: no lymphedema Results & Data Laboratory Results Laboratory Results - last 72 hr 11/12/18 11/12/18 11/12/18 08:10 08:10 08:10 WBC 6.48 RBC 4.21 Hgb 14.3 Hct 43.0 MCV 102.1 H MCH 34.0 MCHC 33.3 RDW Std Deviation 49.5 H RDW Coeff of Jessica 13.2 Plt Count 275 MPV 9.5 Immature Gran % (Auto) 0.2 Neut % (Auto) 58.6 Lymph % (Auto) 29.6 [place] % (Auto) 9.0 Eos % (Auto) 1.5 Baso % (Auto) 1.1 Immature Gran # (Auto) 0.01 Neut # (Auto) 3.80 Lymph # (Auto) 1.92 [place] # (Auto) 0.58 Eos # (Auto) 0.10 Baso # (Auto) 0.07 PT 10.3 INR 1.0 Sodium 140 Potassium 3.7 Chloride 104 Carbon Dioxide 26 Anion Gap 10.0 BUN 7 Creatinine 0.67 Est Cr Clr Drug Dosing 94.2 Est GFR ( Amer) 129.2 Est GFR (Non-Af Amer) 111.5 BUN/Creatinine Ratio 10.8 Glucose 133 H Calcium 8.6 Total Bilirubin 0.4 AST 318 H ALT 142 H Alkaline Phosphatase 226 H Total Protein 7.7 Albumin 4.1 Globulin 3.6 Albumin/Globulin Ratio 1.1 Lipase 1211 H Urine Color Urine Appearance Urine pH Ur Specific [place] Urine Protein Urine Glucose (UA) Urine Ketones Urine Blood Urine Nitrite Urine Bilirubin Urine Urobilinogen Ur Leukocyte Esterase POC Ur Test 11/12/18 11/12/18 11:10 11:10 WBC RBC Hgb Hct MCV MCH MCHC RDW Std Deviation RDW Coeff of Jessica Plt Count MPV Immature Gran % (Auto) Neut % (Auto) Lymph % (Auto) [place] % (Auto) Eos % (Auto) Baso % (Auto) Immature Gran # (Auto) Neut # (Auto) Lymph # (Auto) [place] # (Auto) Eos # (Auto) Baso # (Auto) PT INR Sodium Potassium Chloride Carbon Dioxide Anion Gap BUN Creatinine Est Cr Clr Drug Dosing Est GFR ( Amer) Est GFR (Non-Af Amer) BUN/Creatinine Ratio Glucose Calcium Total Bilirubin AST ALT Alkaline Phosphatase Total Protein Albumin Globulin Albumin/Globulin Ratio Lipase Urine Color Yellow Urine Appearance Clear Urine pH 5.0 Ur Specific [place] > 1.045 H Urine Protein Negative Urine Glucose (UA) Negative Urine Ketones Negative Urine Blood Negative Urine Nitrite Negative Urine Bilirubin Negative Urine Urobilinogen Negative Ur Leukocyte Esterase Negative POC Ur Test NEG Diagnostic Findings CT abd/pelvis w contrast as noted in HPI above
--- NOTE | 2018-11-12 14:45 | Emergency Department Note ---
Entered by Sharita Gonzales acting as a scribe for Fernando Euceda MD History of Present Illness General Chief complaint: Abdominal Pain Stated complaint: SICK/SEVERE PAIN Time Seen by Provider: 11/12/18 07:45 Source: patient Mode of arrival: ambulatory Limitations: no limitations History of Present Illness Provider complaint: abdominal pain Onset (ago): month(s) 1 Location: abdomen (mid upper) Pain Consistency: + other (persistent) Maximum Pain Intensity: 10 Quality: + other (persistent) Exacerbated By: + movement Associated symptoms: + other (vomiting blood. Denies: diarrhea, dark or bloody stools, difficulty moving bowels) The patient is a 37 year old female who presents to the Emergency Room with complaints of persistent, upper mid-abdominal pain beginning 1 month ago. She reports movement exacerbates the pain. The patient states she has been vomiting for 5 hours, and has been vomiting blood. She denies diarrhea, dark or bloody stools, or difficulty moving her bowels. The patient states her last bowel movement was about 1 hour ago, and was normal. She notes she was diagnosed with ulcers 1-2 years ago and had a cholecystectomy last year. The patient reports a history of pancreatitis. She sees Dr. Sorenson as her PCP. Home Medications Home Medications Medication Instructions Recorded Confirmed Type acetaminophen [Tylenol Arthritis 650 mg PO DAILY 11/12/18 11/12/18 History Pain] cyanocobalamin (vitamin B-12) 0 mcg PO QAM 11/12/18 11/12/18 History [Vitamin B-12] magnesium 0 mg PO QAM 11/12/18 11/12/18 History methocarbamol 500 mg PO QAM 11/12/18 11/12/18 History ondansetron 8 mg PO Q12H PRN 11/12/18 11/12/18 History pantoprazole [Protonix] 40 mg PO QAM 11/12/18 11/12/18 History pediatric multivitamin [Gummi Bear 1 tab PO QAM 11/12/18 11/12/18 History Multivitamin] riboflavin (vitamin B2) [Vitamin 0 mg PO QAM 11/12/18 11/12/18 History B-2] sumatriptan succinate [Imitrex] 100 mg PO UD PRN 11/12/18 11/12/18 History Allergies Allergy/AdvReac Type Severity Reaction Status Date / Time buspirone [From BuSpar] AdvReac Severe Unconscious Unverified 11/12/18 08:43 quetiapine [From Seroquel] AdvReac Severe Unconscious Unverified 11/12/18 08:43 morphine AdvReac Unknown "MAKES ME Unverified 11/12/18 08:43 SICK(VOMITING)" Past Med/Surg History Medical History Migraines (Chronic) Hiatal hernia (Chronic) Acute gallstone pancreatitis Pancreatitis (Acute) Peptic ulcer disease Arthritis Hepatitis Surgical History History of lumpectomy of right breast Social History Current Living Situation: Alone Feels Safe at Home: Yes Safety Concerns: Feels Safe At This Time Smoking Status: Former smoker Do You Dip or Chew Tobacco: No Smoking End Date: Sep, 2016 Second Hand Exposure: No Tobacco Cessation Education Requested by Patient: No Hx Alcohol Use: Yes Alcohol type: wine Alcohol Intake Frequency: other Hx Substance Use: Yes substance use type: marijuana Substance Use Type Other:: medically prescribed Beliefs That Will Affect Care: Roman Catholic Roman Catholic Beliefs: Islam Preferred Language: Bulgarian Communication Ability: Effective Pot Builder Required: No Review of Systems See HPI for pertinent positives & negatives. and A total of 10 systems reviewed and were otherwise negative Physical Exam Vital Signs Vital Signs - 24 hr 11/12/18 07:32 11/12/18 08:13 11/12/18 09:32 Temperature 36.5 C Temperature Source Oral Sepsis Recent Fever Within 48 Hours No Sepsis New/Unexplained Change in Mental Status No Sepsis Action Taken by Nursing No Action Required Pulse Rate 113 H Pulse Rate [Apical] 110 H Pulse Rhythm [Apical] Regular Pulse Strength [Apical] Normal Respiratory Rate 18 20 Respiratory Effort / Characteristics Non-Labored Spontaneous Respiratory Depth Normal Respiratory Pattern Blood Pressure 127/86 Blood Pressure [Right Arm] 133/81 Blood Pressure Mean 99 Blood Pressure Mean [Right Arm] 98 Blood Pressure Position Sitting Blood Pressure Position [Right Arm] Sitting Pulse Oximetry 100 99 Oxygen Delivery Method Room Air Room Air Room Air 11/12/18 10:19 11/12/18 10:30 11/12/18 11:06 Temperature Temperature Source Sepsis Recent Fever Within 48 Hours Sepsis New/Unexplained Change in Mental Status Sepsis Action Taken by Nursing Pulse Rate 103 H 101 H Pulse Rate [Apical] 97 H Pulse Rhythm [Apical] Regular Pulse Strength [Apical] Normal Respiratory Rate 20 16 15 Respiratory Effort / Characteristics Non-Labored Spontaneous Respiratory Depth Normal Respiratory Pattern Regular Blood Pressure Blood Pressure [Right Arm] 122/90 Blood Pressure Mean Blood Pressure Mean [Right Arm] 100 Blood Pressure Position Blood Pressure Position [Right Arm] Lying Pulse Oximetry 98 Oxygen Delivery Method Room Air 11/12/18 11:30 11/12/18 11:58 11/12/18 12:00 Temperature Temperature Source Sepsis Recent Fever Within 48 Hours Sepsis New/Unexplained Change in Mental Status Sepsis Action Taken by Nursing Pulse Rate 101 H 96 H 98 H Pulse Rate [Apical] Pulse Rhythm [Apical] Pulse Strength [Apical] Respiratory Rate 15 12 16 Respiratory Effort / Characteristics Respiratory Depth Respiratory Pattern Blood Pressure 120/85 Blood Pressure [Right Arm] Blood Pressure Mean 96 Blood Pressure Mean [Right Arm] Blood Pressure Position Blood Pressure Position [Right Arm] Pulse Oximetry Oxygen Delivery Method 11/12/18 12:01 11/12/18 12:07 11/12/18 13:22 Temperature Temperature Source Sepsis Recent Fever Within 48 Hours Sepsis New/Unexplained Change in Mental Status Sepsis Action Taken by Nursing Pulse Rate 90 Pulse Rate [Apical] 103 H Pulse Rhythm [Apical] Pulse Strength [Apical] Respiratory Rate 20 20 Respiratory Effort / Characteristics Respiratory Depth Respiratory Pattern Regular Blood Pressure 121/83 Blood Pressure [Right Arm] 120/85 Blood Pressure Mean Blood Pressure Mean [Right Arm] 96 Blood Pressure Position Blood Pressure Position [Right Arm] Pulse Oximetry 96 96 Oxygen Delivery Method Room Air Room Air Room Air 11/12/18 13:47 Temperature 36.8 C Temperature Source Oral Sepsis Recent Fever Within 48 Hours Sepsis New/Unexplained Change in Mental Status Sepsis Action Taken by Nursing Pulse Rate Pulse Rate [Apical] 94 H Pulse Rhythm [Apical] Pulse Strength [Apical] Respiratory Rate 18 Respiratory Effort / Characteristics Respiratory Depth Respiratory Pattern Blood Pressure Blood Pressure [Right Arm] 126/88 Blood Pressure Mean Blood Pressure Mean [Right Arm] 100 Blood Pressure Position Blood Pressure Position [Right Arm] Lying Pulse Oximetry 96 Oxygen Delivery Method Room Air General:Uncomfortable appearing young female complaining of epigastric pain. HEENT: Normal cephalic atraumatic. Pupils are equal round and reactive to light. Extraocular movements are intact. Oropharynx is pink with moist mucous membranes. No swelling of the mouth lips or tongue. Neck: Supple with a midline trachea. No meningeal signs or stiffness, no JVD or bruits. No Stridor. Chest: Clear to auscultation bilaterally. No wheezes or rhonchi. No increased work of breathing. Heart: regular rate and rhythm. Abdomen: Soft, nondistended without rebound guarding or rigidity. Mildly tender in epigastric area without peritonitis, no lower abdominal tenderness Extremities: No cyanosis clubbing or edema. No calf tenderness or assymetry Spine/Back. Non tender to palpation. No CVA tenderness Skin: Good turgor without rashes. Neurologic exam: Cranial nerves two through 12 are intact. Motor and sensation are intact and symmetrical throughout. Course 0749: Past medical records reviewed. The patient was evaluated in room B9, and a complete history and physical examination were performed. 0922: I reevaluated and updated the patient. 1008: Upon reevaluation, the patient is still having pain. 1054: I reviewed the patient's case with Dr. Jones, [facility] hospitalist. He will evaluate the patient for further management. 1057: Upon reevaluation, the patient is resting. I discussed test results. She verbalized agreement with the treatment plan. The patient will be admitted for further evaluation. Consultations Consultation #1: Dr. Jones, [facility] hospitalist. Time: 10:54 Administered Medications Dextrose/Lactated Ringer's (D5w And Lactated Ringers) 1,000 mls @ 175 mls/hr IV .Q5H43M [facility] Stop: 11/13/18 06:45 Last Admin: 11/12/18 14:39 Dose: 175 mls/hr Discontinued Medications Hydromorphone HCl (Dilaudid) 1 mg IV NOW STA Stop: 11/12/18 07:59 Last Admin: 11/12/18 08:14 Dose: 1 mg Hydromorphone HCl (Dilaudid) 1 mg IV NOW STA Stop: 11/12/18 09:23 Last Admin: 11/12/18 09:30 Dose: 1 mg Hydromorphone HCl (Dilaudid) 1 mg IV NOW STA Stop: 11/12/18 10:09 Last Admin: 11/12/18 10:16 Dose: 1 mg Hydromorphone HCl (Dilaudid) Confirm Administered Dose 0.5 mg .ROUTE .STK-MED ONE Stop: 11/12/18 12:18 Last Admin: 11/12/18 12:24 Dose: 0.5 mg Sodium Chloride (Nss 1000ml) 2,000 mls @ 999 mls/hr IV .Q2H1M ONE Stop: 11/12/18 09:58 Last Infusion: 11/12/18 10:19 Dose: 0 mls/hr Admin: 11/12/18 08:14 Dose: 999 mls/hr Ioversol (Optiray 320 100ml) 92 ml IV ONCE PRN PRN Reason: Interaction Checking Stop: 11/16/18 09:49 Last Admin: 11/12/18 09:51 Dose: 92 ml Ondansetron HCl (Zofran) 4 mg IV NOW STA Stop: 11/12/18 07:59 Last Admin: 11/12/18 08:14 Dose: 4 mg Ondansetron HCl (Zofran) 4 mg IV NOW STA Stop: 11/12/18 09:27 Last Admin: 11/12/18 09:30 Dose: 4 mg Medical Decision Making Differential Diagnosis Etiologies considered include peptic ulcer disease, GI bleed, varices, pancreatitis, viral illness, electrolyte or metabolic abnormality. Medical Records Attestation: I reviewed the patient's medical records. Home Medications Current Medication List: was personally reviewed by me Laboratory Data Attestation: I reviewed the patient's lab results. Result diagrams: 11/12/18 08:10 11/12/18 08:10 Lab Results 11/12/18 11/12/18 11/12/18 Range/Units 08:10 08:10 08:10 WBC 6.48 (4.8-10.8) K/uL RBC 4.21 (4.2-5.4) M/uL Hgb 14.3 (12.0-16.0) g/dL Hct 43.0 (37-47) % MCV 102.1 H (80-100) fL MCH 34.0 (25-34) pg MCHC 33.3 (32-36) g/dL RDW Std Deviation 49.5 H (36.4-46.3) fL RDW Coeff of Jessica 13.2 (11.5-14.5) % Plt Count 275 (130-400) K/uL MPV 9.5 (7.4-10.4) fL Immature Gran % (Auto) 0.2 % Neut % (Auto) 58.6 % Lymph % (Auto) 29.6 % Grayson % (Auto) 9.0 % Eos % (Auto) 1.5 % Baso % (Auto) 1.1 % Immature Gran # (Auto) 0.01 (0.00-0.02) K/uL Neut # (Auto) 3.80 (1.4-6.5) K/uL Lymph # (Auto) 1.92 (1.2-3.4) K/uL Grayson # (Auto) 0.58 (0.11-0.59) K/uL Eos # (Auto) 0.10 (0-0.5) K/uL Baso # (Auto) 0.07 (0-0.2) K/uL PT 10.3 (9.0-12.0) Seconds INR 1.0 (0.9-1.1) Sodium 140 (136-145) mmol/L Potassium 3.7 (3.5-5.1) mmol/L Chloride 104 (98-107) mmol/L Carbon Dioxide 26 (21-32) mmol/L Anion Gap 10.0 (3-11) BUN 7 (7-18) mg/dl Creatinine 0.67 (0.6-1.2) mg/dl Est Cr Clr Drug Dosing 94.2 ml/min Est GFR ( Amer) 129.2 Est GFR (Non-Af Amer) 111.5 BUN/Creatinine Ratio 10.8 (10-20) Glucose 133 H (70-99) mg/dl Calcium 8.6 (8.5-10.1) mg/dl Total Bilirubin 0.4 (0.2-1) mg/dl AST 318 H (15-37) U/L ALT 142 H (12-78) U/L Alkaline Phosphatase 226 H (45-117) U/L Total Protein 7.7 (6.4-8.2) gm/dl Albumin 4.1 (3.4-5.0) gm/dl Globulin 3.6 (2.5-4.0) gm/dl Albumin/Globulin Ratio 1.1 (0.9-2) Lipase 1211 H (73-393) U/L Urine Color Urine Appearance (Clear) Urine pH (4.5-7.5) Ur Specific [place] (1.000-1.030) Urine Protein (Negative) Urine Glucose (UA) (Negative) Urine Ketones (Negative) Urine Blood (Negative) Urine Nitrite (Negative) Urine Bilirubin (Negative) Urine Urobilinogen (Negative) Ur Leukocyte Esterase (Negative) POC Ur Test (NEG) 11/12/18 11/12/18 Range/Units 11:10 11:10 WBC (4.8-10.8) K/uL RBC (4.2-5.4) M/uL Hgb (12.0-16.0) g/dL Hct (37-47) % MCV (80-100) fL MCH (25-34) pg MCHC (32-36) g/dL RDW Std Deviation (36.4-46.3) fL RDW Coeff of Jessica (11.5-14.5) % Plt Count (130-400) K/uL MPV (7.4-10.4) fL Immature Gran % (Auto) % Neut % (Auto) % Lymph % (Auto) % Grayson % (Auto) % Eos % (Auto) % Baso % (Auto) % Immature Gran # (Auto) (0.00-0.02) K/uL Neut # (Auto) (1.4-6.5) K/uL Lymph # (Auto) (1.2-3.4) K/uL Grayson # (Auto) (0.11-0.59) K/uL Eos # (Auto) (0-0.5) K/uL Baso # (Auto) (0-0.2) K/uL PT (9.0-12.0) Seconds INR (0.9-1.1) Sodium (136-145) mmol/L Potassium (3.5-5.1) mmol/L Chloride (98-107) mmol/L Carbon Dioxide (21-32) mmol/L Anion Gap (3-11) BUN (7-18) mg/dl Creatinine (0.6-1.2) mg/dl Est Cr Clr Drug Dosing ml/min Est GFR ( Amer) Est GFR (Non-Af Amer) BUN/Creatinine Ratio (10-20) Glucose (70-99) mg/dl Calcium (8.5-10.1) mg/dl Total Bilirubin (0.2-1) mg/dl AST (15-37) U/L ALT (12-78) U/L Alkaline Phosphatase (45-117) U/L Total Protein (6.4-8.2) gm/dl Albumin (3.4-5.0) gm/dl Globulin (2.5-4.0) gm/dl Albumin/Globulin Ratio (0.9-2) Lipase (73-393) U/L Urine Color Yellow Urine Appearance Clear (Clear) Urine pH 5.0 (4.5-7.5) Ur Specific [place] > 1.045 H (1.000-1.030) Urine Protein Negative (Negative) Urine Glucose (UA) Negative (Negative) Urine Ketones Negative (Negative) Urine Blood Negative (Negative) Urine Nitrite Negative (Negative) Urine Bilirubin Negative (Negative) Urine Urobilinogen Negative (Negative) Ur Leukocyte Esterase Negative (Negative) POC Ur Test NEG (NEG) Imaging Data Radiologist's Impression: Radiology results as stated below per my review and the radiologist's interpretation: CT abd pelvis IV con only CT DOSE: 295.00 mGy.cm HISTORY: Pancreatitis. Pain. eval for pancreatitis TECHNIQUE: Multiaxial CT images of the abdomen and pelvis were performed following the use of intravenous contrast. A dose lowering technique was utilized adhering to the principles of ALARA. COMPARISON STUDY: 08/17/2016 FINDINGS: Lung bases are clear. Mild fatty replacement of the liver. Kidneys negative for hydronephrosis. Mild edematous change of the pancreatic head and uncinate process with a trace amount of peripancreatic fluid. Interval cholecystectomy. Slight wall thickening transverse colon possibly reactive. No evidence for abscess collection or pseudocyst. Mid and lower abdominal bowel pattern is nonobstructive. Bladder is midline. Normal appendix. IMPRESSION: 1. Findings of developing pancreatitis primarily involving the pancreatic head and uncinate process. 2. Trace amount of peripancreatic infiltrative change with mild reactive edematous change of the transverse colonic wall. 3. No evidence for abscess collection or pseudocyst at the current time. 4. Fatty infiltration of liver. IMPRESSION: No significant abnormality identified within the abdomen or pelvis. The above report was generated using voice recognition software. It may contain grammatical, syntax or spelling errors. Electronically signed by: Mike Del Rio M.D. 11/12/2018 10:00 AM XR chest 1V portable CLINICAL HISTORY: epigastric pain COMPARISON STUDY: 09/22/2017 FINDINGS: The cardiac and mediastinal contours are normal. There is no evidence of focal pulmonary consolidation. There is no evidence of failure. No pleural effusions are visualized.[ There is no free intraperitoneal air. There are peritendinous calcifications present within each shoulder. This likely secondary to calcific tendinosis. IMPRESSION: No active disease in the chest. Electronically signed by: Willis Virgen M.D. 11/12/2018 8:17 AM ECG Data Attestation: I personally reviewed and interpreted this ECG as follows: Indication: abdominal pain Rate (beats per minute): 103 Rhythm: sinus tachycardia Findings: no PAC, no PVC, no ST depression and no ST elevation Comparison ECG Date: from (04/26/18) Change: the following changes noted (Rate has decreased slightly) Blood Pressure Blood Pressure Findings: Normal blood pressure Blood Pressure Disposition: did not require urgent referral MDM Narrative This patient comes in as described above. She has epigastric abdominal pain and vomiting. on my exam she looks very uncomfortable and is asking for pain medication. she is in no respiratory distress but appears in a significant discomfort. IV access was established and we worked quickly to give her relief. She was given several liters of IV normal saline for hydration while she was here. she also receive Dilaudid 1 mg IV and Zofran 4 mg IV. She did require multiple additional doses of Dilaudid IV and Zofran IV. Chest x-ray is unremarkable specifically is no free air. Her lipase is elevated at over 1100 consistent with pancreatitis. I did a CAT scan with IV contrast is also consistent with pancreatitis, there is no pseudocyst seen. She has no significant electrolyte or metabolic abnormalities otherwise. She has had her gallbladder removed previously. She denies that she drinks significant amounts of alcohol. There is been no trauma. I do think she needs to be admitted/ observe for IV hydration, IV pain medication, and further treatment and evaluation of her pancreatitis and abdominal pain. I have consulted Dr. Lorenz to see her in the ER for these measures. Impression & Plan Pancreatitis, Epigastric abdominal pain, Vomiting, Acute dehydration Discharge Plan Visit Data *Final* Discharge Date/Time: 11/12/18 13:22 Chief Complaint: Abdominal Pain Stated Complaint: SICK/SEVERE PAIN ED Provider: Fernando Euceda Discharge Problem: Pancreatitis, Epigastric abdominal pain, Vomiting, Acute dehydration Patient Disposition: Admitted As Inpatient Discharge Instructions Interventions: ED Discharge Assessment Last Done: 11/12/18 13:22 The scribe's documentation has been prepared under my direction and personally reviewed by me in its entirety. I confirm that the note above accurately reflects all work, treatment, procedures, and medical decision making performed by me.
[2018-11-12] MEDS: ONDANSETRON INJ 2 MG/ML 2 ML VIAL IV PRN ×2 (15:38→21:37)
[2018-11-12] MEDS: HYDROmorphone INJ 0.5 MG/0.5 ML SYR IV PRN ×3 (16:34→23:44)
[2018-11-12] MEDS: ENOXAPARIN INJ 30 MG/0.3 ML SYR SQ SCH (16:36)
--- NOTE | 2018-11-12 16:38 | Magnetic Resonance Report ---
MR MRCP HISTORY: r/o gallstone pancreatitis TECHNIQUE: MRCP was performed without intravenous contrast according to standard departmental protoco l. COMPARISON STUDY: Abdomen and pelvis CT 11/12/2018. FINDINGS: The lung bases appear clear. The liver, spleen, adrenal glands, and kidneys are unremarkabl e. No retroperitoneal lymphadenopathy. There is edema surrounding the pancreatic head and duodenum co nsistent with acute pancreatitis. The common bile duct is normal in course and caliber measuring up t o 6 mm. No stones identified within the common bile duct. The main pancreatic duct is normal in calib er. The distal main pancreatic duct is suboptimally evaluated due to the edematous pancreatic head bu t appears to demonstrate normal course. No definite evidence for pancreas divisum. IMPRESSION: 1. Redemonstration of the acute pancreatitis. 2. Normal caliber common bile duct. No stones identified within the common bile duct. 3. The visualized main pancreatic duct appears normal in course and caliber. Of note, the distal main pancreatic duct is suboptimally evaluated due to the edematous pancreatic head. However, no evidence for pancreas divisum. Electronically signed by: Bunny Doherty M.D. 11/12/2018 4:37 PM
[2018-11-12] MEDS: PANTOprazole 40 MG in SYRINGE 0 ML IV SCH (21:36)
[2018-11-13] MEDS ORDERED: PROMETHAZINE HCL 12.5 MG in SODIUM CHLORIDE 0.9% 50 ML IV ONE (00:15)
[2018-11-13] MEDS: HYDROmorphone INJ 0.5 MG/0.5 ML SYR IV PRN ×4 (03:39→17:39)
[2018-11-13] MEDS: ONDANSETRON INJ 2 MG/ML 2 ML VIAL IV PRN ×3 (03:47→17:38)
[2018-11-13 04:43] LABS: Amphetamines+Metham, Urine Neg (Neg); Barbiturates, Urine Neg (Neg); Benzodiazepine, Urine Neg (Neg); Cocaine, Urine Neg (Neg); MDMA (Ecstacy), Urine Neg (Neg); Methadone, Urine Neg (Neg); Opiate, Urine Pos (Neg); Phencyclidine, Urine Neg (Neg)
[2018-11-13] MEDS ORDERED: INDOMETHACIN 50 MG SUPP PR SCH (06:00)
[2018-11-13 06:45] LABS: Albumin Level 2.9 gm/dl (3.4-5.0); Bilirubin Direct 0.2 mg/dl (0-0.2); Bilirubin,Total 0.6 mg/dl (0.2-1); Calcium 7.1 mg/dl (8.5-10.1); Creatinine Clr Calc Pharmacy 128.8 ml/min; Est GFR (African American) 143.2; Est GFR (Non-African American) 123.6; Potassium 3.1 mmol/L (3.5-5.1); Total Protein 5.7 gm/dl (6.4-8.2)
[2018-11-13] MEDS ORDERED: PROMETHAZINE HCL 25 MG in SODIUM CHLORIDE 0.9% 50 ML IV ONE (08:15)
[2018-11-13] MEDS: POTASSIUM CHLORIDE / WTR 10 MEQ/100 ML PLCT IV SCH ×6 (09:06→13:47)
[2018-11-13] MEDS: PANTOprazole 40 MG in SYRINGE 0 ML IV SCH ×2 (10:28→20:33)
[2018-11-13] MEDS ORDERED: PANTOprazole 40 MG in SYRINGE 0 ML IV SCH (11:00)
[2018-11-13] MEDS: LACTATED RINGER'S 1,000 ML IV SCH ×3 (11:27→20:32)
[2018-11-13] MEDS ORDERED: LORazepam 0.5 MG TAB PO STA (13:18)
[2018-11-13] MEDS ORDERED: INDOMETHACIN 50 MG SUPP PR ONE (13:30)
--- NOTE | 2018-11-13 17:08 | Hospitalist Progress Note ---
Date of Service November 13, 2018 Assessment & Plan (1) Pancreatitis: 37 y/o F Hx Migraines, gastric ulcers, GERD, hiatal hernia, gallstone pancreatitis, depression admitted November 12, 2018 because of acute pancreatitis per report: has moderate to severe upper abdominal pain primarily in the epigastric region. asso nausea without vomiting. A CT of the abdomen was obtained demonstrating developing pancreatitis primarily involving the pancreatic head and uncinate process. Pancreatitis hx of cholecystectomy and there is no evidence of obstruction on CT. 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 Full code - Lovenox prophylaxis Primary Care Provider: Diane Sorenson MD Subjective Report nauseated during this morning required Phenergan in addition to Zofran Still has abdominal pain, no vomiting denies diarrhea, denies blood per rectum Review of Systems Constitutional: Positive weakness, or fatigue Respiratory: no cough, sputum, wheezing, or dyspnea on exertion Cardiac: No chest pain, No orthopnea, No PND, No claudication, No palpitations , Abdomen: See HPI Musculoskeletal: No joint pain, No muscle pain, No swelling, No calf pain, No problem reported : No dysuria, No urinary frequency, No incontinence, No hematuria Neurologic: No paralysis, No weakness, No numbness/tingling, No vertigo, No balance problems Psychiatric: Poor mild anxious, no depression symptoms, No anhedonism, Heme: No abnormal bleeding/bruising, No clotting problems, Skin: No rash, No itch, No new/changing skin lesions, Physical Exam 2 Vital Signs (Past 24 Hours): Last Vital Signs Temp 37.0 C 11/13/18 15:50 Pulse 88 11/13/18 15:50 Resp 20 11/13/18 15:50 BP 128/84 11/13/18 15:50 Pulse Ox 97 11/13/18 15:50 Physical Exam: General: Mildly anxious, repolarization, AAO x 3, no distress ENT: No erythema or exudates, no thrush Eyes: HANH, EOMI Head and neck: Normocephalic, atraumatic, No JVD, neck is supple. Chest/heart: Nontender, S1,2, RRR, no murmurs, no gallops Lungs: CTAB, no wheezing or crackles Abdomen: mild Tenderness is primarily epigastric area Neuro: AAO x 3, speech is clear, no unilateral weakness or loss of sensation, coordination intact Musculoskeletal: No joint inflammation, muscle tenderness, FROM Skin: No acute rashes or ulcers Extremities: No clubbing, cyanosis, edema Results & Data Laboratory Results Laboratory Results - last 24 hr 11/13/18 11/13/18 11/13/18 05:29 05:29 05:29 Sodium 135 L Potassium 3.1 L D Chloride 100 Carbon Dioxide 29 Anion Gap 6.0 BUN 4 L Creatinine 0.49 L Est Cr Clr Drug Dosing 128.8 Est GFR ( Amer) 143.2 Est GFR (Non-Af Amer) 123.6 BUN/Creatinine Ratio 8.0 L Glucose 114 H Calcium 7.1 L D Total Bilirubin 0.6 Direct Bilirubin 0.2 AST 104 H ALT 78 Alkaline Phosphatase 151 H Total Protein 5.7 L D Albumin 2.9 L Triglycerides 155 H Lipase 346 Urine Opiates Screen Ur Methadone, Qual Urine Barbiturates Ur Phencyclidine (PCP) U Amphetamin/Meth Scrn MDMA (Ecstasy) Screen U Benzodiazepines Scrn Ur Cocaine Metabolite U Marijuana (THC) Screen 11/13/18 Unknown Sodium Potassium Chloride Carbon Dioxide Anion Gap BUN Creatinine Est Cr Clr Drug Dosing Est GFR ( Amer) Est GFR (Non-Af Amer) BUN/Creatinine Ratio Glucose Calcium Total Bilirubin Direct Bilirubin AST ALT Alkaline Phosphatase Total Protein Albumin Triglycerides Lipase Urine Opiates Screen Pos H Ur Methadone, Qual Neg Urine Barbiturates Neg Ur Phencyclidine (PCP) Neg U Amphetamin/Meth Scrn Neg MDMA (Ecstasy) Screen Neg U Benzodiazepines Scrn Neg Ur Cocaine Metabolite Neg U Marijuana (THC) Screen Pos H _ (1) Pancreatitis Acute pancreatitis complication: no infection or necrosis Chronicity: acute Pancreatitis type: unspecified pancreatitis type Qualified Code(s): K85.90 - Acute pancreatitis without necrosis or infection, unspecified
[2018-11-13] MEDS: ENOXAPARIN INJ 30 MG/0.3 ML SYR SQ SCH (17:39)
[2018-11-14] MEDS: ONDANSETRON INJ 2 MG/ML 2 ML VIAL IV PRN ×2 (00:21→06:25)
[2018-11-14] MEDS: HYDROmorphone INJ 0.5 MG/0.5 ML SYR IV PRN ×2 (00:21→06:24)
[2018-11-14] MEDS: LACTATED RINGER'S 1,000 ML IV SCH ×2 (01:35→05:52)
[2018-11-14 05:59] LABS: Basophils # (auto) 0.02 K/uL (0-0.2); Basophils % (auto) 0.3 %; Eosinophils # (auto) 0.15 K/uL (0-0.5); Eosinophils % (auto) 2.5 %; Hematocrit (blood only) 37.1 % (37-47); Hemoglobin 12.3 g/dL (12.0-16.0); Lymphocytes # (auto) 2.23 K/uL (1.2-3.4); Lymphocytes % (auto) 37.8 %; Mean Corpuscular Hgb Conc 33.2 g/dL (32-36); Mean Corpuscular Volume 102.5 fL (80-100); Mean Platelet Volume 9.5 fL (7.4-10.4); Monocytes % (auto) 10.2 %; Neutrophils % (auto) 49.2 %; Platelet Count 204 K/uL (130-400); RDW Coefficient of Variation 12.5 % (11.5-14.5); RDW Standard Deviation 47.5 fL (36.4-46.3); Red Blood Count 3.62 M/uL (4.2-5.4)
[2018-11-14 06:34] LABS: BUN Creatinine Ratio 2.5 (10-20); Bilirubin Direct 0.3 mg/dl (0-0.2); Bilirubin,Total 0.8 mg/dl (0.2-1); Calcium 8.3 mg/dl (8.5-10.1); Creatinine Clr Calc Pharmacy 121.3 ml/min; Est GFR (African American) 140.5; Est GFR (Non-African American) 121.2; Magnesium 1.4 mg/dl (1.8-2.4); Phosphorus 3.1 mg/dl (2.5-4.9); Potassium 3.4 mmol/L (3.5-5.1); Total Protein 5.9 gm/dl (6.4-8.2)
[2018-11-14] MEDS ORDERED: MAGNESIUM SULFATE / D5W 1 GM/100 ML BAG IV ONE (08:00)
[2018-11-14] MEDS: PANTOprazole 40 MG in SYRINGE 0 ML IV SCH (08:17)
--- NOTE | 2018-11-14 08:30 | Gastroenterology Progress Note ---
Date of Service November 14, 2018 Assessment & Plan (1) Pancreatitis: Pt is a 37y/o female w epigastric pain, n/v found to have LFTs, Lipase elevations and CT evidence of pancreatitis w/o abscess or pseudocyst. She is s/ p cholecystectomy, previous LFT elevation mild compared to currently. She has hx of PUD, gastritis but denies NSAIDs uses. Does take APAP on daily basis for migraines and admits to ETOH & marijuana uses. Labs consistent with ETOH pancreatitis. No CBD obstruction on imaging. - Will manage conservatively. - no plan for EUS or ERCP as an inpatient. Will arrange an outpatient EUS in 8 weeks to further evaluate the pancreas and ducts. - Please call with questions. - Needs to refrain from ETOH and APAP, and NSAIDS Subjective Less pain. Mild nausea. hungry Physical Exam 2 Vital Signs (Past 24 Hours): Last Vital Signs Temp 36.8 C 11/14/18 08:12 Pulse 81 11/14/18 08:12 Resp 18 11/14/18 08:12 BP 116/80 11/14/18 08:12 Pulse Ox 96 11/14/18 08:12 Constitutional: well developed, well nourished, well groomed, cooperative and + in distress (c/o abd pain ) Eyes: PERRL, conjunctivae normal, anicteric sclerae ENMT: external ear and nose normal, oropharynx normal Respiratory: normal respiratory effort, lungs clear to auscultation Cardiovascular: RRR, no murmur, no edema Gastrointestinal (Abdomen): Inspection/Auscultation: + hypoactive bowel sounds Percussion/Palpation: + abdomen tender and abdomen soft; no guarding Skin: no rashes, warm and dry no jaundice Neurologic: Motor/Sensory: no asterixis Psychiatric: A+Ox3, euthymic affect Lymphatic: no lymphedema
[2018-11-14] MEDS ORDERED: LORazepam 0.5 MG TAB PO STA (08:56)
[2018-11-14] MEDS ORDERED: LORazepam 0.5 MG TAB ONE (09:03)
--- NOTE | 2018-11-14 16:00 | Discharge Summary ---
Date of Service November 14, 2018 Admission HPI Per Admitting Provider 37 y/o F Hx Migraines, gastric ulcers, GERD, hiatal hernia, gallstone pancreatitis, depression. Presented with moderate to severe upper abdominal pain primarily in the epigastric region. Describes nausea without vomiting. Denies SOB, CP or fevers. Labs are notable for LFT elevation and an elevated lipase. A CT of the abdomen was obtained demonstrating developing pancreatitis primarily involving the pancreatic head and uncinate process. 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 Family: Father with history of CAD/OH/CVA Grandmother with history of pancreatic CA and CAD/OH Principal Diagnosis no Discharge Data Allergies Allergy/AdvReac Type Severity Reaction Status Date / Time buspirone [From BuSpar] AdvReac Severe Unconscious Unverified 11/12/18 08:43 quetiapine [From Seroquel] AdvReac Severe Unconscious Unverified 11/12/18 08:43 morphine AdvReac Unknown "MAKES ME Unverified 11/12/18 08:43 SICK(VOMITING)" Consultations 11/12/18 10:09 ED Decision to Admit Stat 11/12/18 13:37 Consult Gastroenterology Routine Procedures Performed Operation Date: 11/13/18 13:30 <No data on this case meets the specified criteria> Ordered Studies 11/12/18 09:25 CT abd pelvis IV con only Stat 11/12/18 14:26 MR MRCP Stat 11/12/18 14:44 FL fluoroscopy <1hr Routine Hospital Course (1) Pancreatitis: 37 y/o F Hx Migraines, gastric ulcers, GERD, hiatal hernia, gallstone pancreatitis, depression admitted November 12, 2018 because of acute pancreatitis per report: has moderate to severe upper abdominal pain primarily in the epigastric region. asso nausea without vomiting. A CT of the abdomen was obtained demonstrating developing pancreatitis primarily involving the pancreatic head and uncinate process. Pancreatitis , likely alcoholic pancreatitis Hx of cholecystectomy and there is no evidence of obstruction on CT. hx of alcohol intake GI on case, treated symptomatically, was on NPO, provided with IVF, narcotics and antiemetics as needed, follow-up lipase which has been resolved,, GI feel do not need ERCP in this admission History of GERD and ulcers - cont Protonix Depression is in remission and not presently treated. Today advance diet, patient tolerated well, up and walk, feeling okay to discharge home, has adviced to continue Protonix, adn to follow up with your primary care physician in 1 week, check labs of bmp, mag in the follow up visit, also advised to follow-up with GI service In this hospitalization has counseling about alcohol abstinence, discussed about inpatient or outpatient alcohol rehab, offered help, patient said she will discuss with PCP Full code - Lovenox prophylaxis Primary Care Provider: Diane Sorenson MD Subjective upon discharge: no more n/c, no abdominal pain, denies diarrhea, denies blood per rectum Has been up and walk Review of Systems upon discharge Constitutional: Positive weakness, or fatigue Respiratory: no cough, sputum, wheezing, or dyspnea on exertion Cardiac: No chest pain, No orthopnea, No PND, No claudication, No palpitations , Abdomen: See HPI Musculoskeletal: No joint pain, No muscle pain, No swelling, No calf pain, No problem reported : No dysuria, No urinary frequency, No incontinence, No hematuria Neurologic: No paralysis, No weakness, No numbness/tingling, No vertigo, No balance problems Psychiatric: mild anxious, no depression symptoms, No anhedonism, Heme: No abnormal bleeding/bruising, No clotting problems, Skin: No rash, No itch, No new/changing skin lesions, Physical Exam upon discharge General: Mildly anxious, repolarization, AAO x 3, no distress ENT: No erythema or exudates, no thrush Eyes: HANH, EOMI Head and neck: Normocephalic, atraumatic, No JVD, neck is supple. Chest/heart: Nontender, S1,2, RRR, no murmurs, no gallops Lungs: CTAB, no wheezing or crackles Abdomen: mild Tenderness is primarily epigastric area Neuro: AAO x 3, speech is clear, no unilateral weakness or loss of sensation, coordination intact Musculoskeletal: No joint inflammation, muscle tenderness, FROM Skin: No acute rashes or ulcers Extremities: No clubbing, cyanosis, edema Lab data upon discharge Laboratory Results - last 24 hr 11/14/18 11/14/18 11/14/18 05:23 05:23 07:54 WBC 5.90 RBC 3.62 L Hgb 12.3 Hct 37.1 MCV 102.5 H MCH 34.0 MCHC 33.2 RDW Std Deviation 47.5 H RDW Coeff of Jessica 12.5 Plt Count 204 MPV 9.5 Immature Gran % (Auto) 0.0 Neut % (Auto) 49.2 Lymph % (Auto) 37.8 Nicol[place] % (Auto) 10.2 Eos % (Auto) 2.5 Baso % (Auto) 0.3 Immature Gran # (Auto) 0.00 Neut # (Auto) 2.90 Lymph # (Auto) 2.23 [place] # (Auto) 0.60 H Eos # (Auto) 0.15 Baso # (Auto) 0.02 Sodium 136 Potassium 3.4 L Chloride 100 Carbon Dioxide 30 Anion Gap 6.0 BUN 1 L Creatinine 0.52 L Est Cr Clr Drug Dosing 121.3 Est GFR ( Amer) 140.5 Est GFR (Non-Af Amer) 121.2 BUN/Creatinine Ratio 2.5 L Glucose 83 Calcium 8.3 L D Phosphorus 3.1 Magnesium 1.4 L 1.3 L Total Bilirubin 0.8 Direct Bilirubin 0.3 H AST 80 H ALT 65 Alkaline Phosphatase 161 H Total Protein 5.9 L Albumin 3.0 L Lipase 264 Total Time Total Time Spent Total Time Spent (In Minutes): 35 Total Time Includes: Examination of the Patient, Discharge Planning, Medication Reconciliation and Communication With Other Providers Discharge Plan Discharge Items Patient Disposition: Home - Self-Care Reason For Visit: PANCREATITIS Discharge Diagnosis: alcoholic pancreatitis Condition: Fair Discharge Goals: Decrease discomfort, Diagnostic testing and Improve disease control Activity: Resume your previous activity Non-emergency contact: Primary Care Provider and Electronic Tester Call non-emergency contact if: you have any medication questions Diet: Low Fat Addtl Provider Instructions: you have alcoholic Pancreatitis you have History of GERD and ulcers - continue Protonix you need to follow up with your primary care physician in 1 week, check labs of bmp, mag in the follow up visit take medication as instructed, never overdose or any misuse, or take with alcohol, or illicit drug, because misuse of medicine may cause organ damage or , call me, or your primary care physician if have questions of discharge medicaitons. - call your primary care physician, or go to local emergency room if has any fever/chill, chest pain, shortness of breathing, nausea/vomiting/abdominal pain , facial droop/slurry speech/local weakness, or if has any questions. - fall precaution - diet as instructed - you need to follow up with your subspecialist, such as Dr. Crawley Gastroenteroligit in 3-4 weeks Prescriptions: New ondansetron HCl [Zofran] 4 mg tablet 4 mg PO Q8H Qty: 7 RF: 0 tramadol 50 mg tablet 50 mg PO Q8H PRN (Reason: pain) Qty: 7 RF: 0 Continue methocarbamol 500 mg Tablet 500 mg PO QAM RF: 0 riboflavin (vitamin B2) [Vitamin B-2] 25 mg Tablet PO QAM RF: 0 sumatriptan succinate [Imitrex] 100 mg Tablet 100 mg PO UD PRN (Reason: Migraine Headache) RF: 0 pediatric multivitamin [Gummi Bear Multivitamin] Tablet,Chewable 1 tab PO QAM RF: 0 cyanocobalamin (vitamin B-12) [Vitamin B-12] 1,000 mcg Tablet PO QAM RF: 0 ondansetron 8 mg Tablet,Disintegrating 8 mg PO Q12H PRN (Reason: Nausea And Vomiting) RF: 0 pantoprazole [Protonix] 40 mg Tablet,Delayed Release (Dr/Ec) 40 mg PO QAM RF: 0 magnesium 30 mg Tablet PO QAM RF: 0 Discontinued acetaminophen [Tylenol Arthritis Pain] 650 mg Tablet Extended Release 650 mg PO DAILY RF: 0 Stand-Alone Forms: [facility] Discharge Orders: Discharge Order (Routine); Ordered 11/14/18 Ordered By: Jesse Marquez Admission Data Admit Date/Time: 11/12/18 11:48 Attending Provider: Jesse Marquez Admit Provider: Werner Jones Primary Care Provider: Diane Sorenson Other Providers: Werner Jones ; Jane Acosta Service: Medical Other Interventions: Discharge Summary Assessment (RN) Last Done: 11/14/18 12:55 DC Date/Time DO NOT enter until pt leaves facility: 11/14/18 13:20
[2018-11-17 15:32] LABS: Hydrocodone Urine NEGATIVE NG/ML (CUTOFF=50); Hydromor Urine 3910 NG/ML (CUTOFF=50); Marijuana Quant, GCMS Urine 324 NG/ML (CUTOFF=5); Morphine Urine NEGATIVE NG/ML (CUTOFF=50); Norhydrocodone Conf Ur NEGATIVE NG/ML (CUTOFF=50); Noroxycodone Urine NEGATIVE NG/ML (CUTOFF=50); Oxycodone Urine NEGATIVE NG/ML (CUTOFF=50)
== END 2018-11-14 13:20 | disposition home or self-care (01) | DRG 440 ==
LOC: ED 07:24 → 4E 11:48 → SUATTDRO 11:48 → 4E 13:22

== ENCOUNTER 2019-06-28 08:46 | Inpatient (IN) ==
[2019-06-28] MEDS ORDERED: ACETAMINOPHEN 1,000 MG/100 ML VIAL IV STA (09:39)
[2019-06-28] MEDS ORDERED: SODIUM CHLORIDE 0.9% 1000ML 1,000 ML IV ONE (09:39)
[2019-06-28] MEDS ORDERED: ONDANSETRON INJ 2 MG/ML 2 ML VIAL IV STA (09:39)
[2019-06-28] MEDS ORDERED: KETOROLAC TROMETHAMINE 15 MG/ML VIAL IV STA (09:39)
--- NOTE | 2019-06-28 09:52 | XRay Report ---
XR chest 1V portable CLINICAL HISTORY: Chest pain. COMPARISON STUDY: Chest radiograph March 15, 2019. FINDINGS: Lung volumes are normal. Lungs are clear. There is no pneumothorax or pleural effusion. Car diac size is normal. Mediastinal contours are normal. There is no evidence for pulmonary edema. IMPRESSION: No acute cardiopulmonary findings. Electronically signed by: José Miguel Bruno M.D. 06/28/2019 9:51 AM
[2019-06-28 09:55] LABS: Basophils # (auto) 0.02 K/uL (0-0.2); Basophils % (auto) 0.3 %; Eosinophils # (auto) 0.15 K/uL (0-0.5); Eosinophils % (auto) 2.5 %; Hematocrit (blood only) 47.7 % (37-47); Immature Granulocytes # (auto) 0.01 K/uL (0.00-0.02); Immature Granulocytes % (auto) 0.2 %; Lymphocytes % (auto) 23.6 %; Mean Corpuscular Hemoglobin 34.8 pg (25-34); Mean Corpuscular Hgb Conc 33.5 g/dL (32-36); Mean Corpuscular Volume 103.7 fL (80-100); Monocytes # (auto) 0.42 K/uL (0.11-0.59); Monocytes % (auto) 7.1 %; Neutrophils # (auto) 3.93 K/uL (1.4-6.5); Neutrophils % (auto) 66.3 %; Platelet Count 349 K/uL (130-400); RDW Standard Deviation 48.6 fL (36.4-46.3); White Blood Count 5.93 K/uL (4.8-10.8)
[2019-06-28] MEDS: HYDROmorphone INJ 0.5 MG/0.5 ML SYR IV PRN ×3 (10:07→12:56)
[2019-06-28 10:10] LABS: Alanine Aminotransferase 69 U/L (12-78); Albumin Level 3.6 gm/dl (3.4-5.0); Aspartate Aminotransferase 64 U/L (15-37); BUN Creatinine Ratio 6.9 (10-20); Blood Urea Nitrogen 5 mg/dl (7-18); Carbon Dioxide 30 mmol/L (21-32); Chloride 101 mmol/L (98-107); Creatinine Clr Calc Pharmacy 94.7 ml/min; Est GFR (Non-African American) 111.3; Glucose 130 mg/dl (70-99); Lipase 238 U/L (73-393); Magnesium 1.6 mg/dl (1.8-2.4); Potassium 2.9 mmol/L (3.5-5.1); Sodium 140 mmol/L (136-145)
[2019-06-28 10:15] LABS: Alkaline Phosphatase 329 U/L (45-117); Bilirubin,Total 0.6 mg/dl (0.2-1); Globulin 3.6 gm/dl (2.5-4.0); Total Protein 7.2 gm/dl (6.4-8.2); Troponin I < 0.015 ng/ml (0-0.045)
[2019-06-28 10:23] LABS: Pregnancy Test, Serum Negative (Negative)
[2019-06-28 10:33] LABS: Appearance Urine Clear (Clear); Bilirubin Urine Negative (Negative); Blood Urine 1+ (Negative); Color Urine Yellow; Glucose Urine UA Negative (Negative); Ketones Urine Negative (Negative); Leukocyte Esterase Urine Negative (Negative); Nitrite Urine Negative (Negative); Protein Urine Negative (Negative); Specific Gravity Urine 1.004 (1.000-1.030); Urobilinogen Urine Negative (Negative)
[2019-06-28 10:42] LABS: RBC Urine 0-4 /hpf (0-4)
[2019-06-28 10:43] LABS: Bacteria Urine 2+ (Negative)
[2019-06-28] MEDS ORDERED: IOVERSOL 100ml IV PRN (10:43)
[2019-06-28] MEDS ORDERED: POTASSIUM CHLORIDE / WTR 10 MEQ/100 ML PLCT IV ONE (11:09)
[2019-06-28] MEDS ORDERED: MAGNESIUM SULFATE / D5W 1 GM/100 ML BAG IV ONE (11:09)
--- NOTE | 2019-06-28 11:23 | CT Scan Report ---
CT OF THE ABDOMEN AND PELVIS WITH CONTRAST CLINICAL HISTORY: Epigastric pain. Possible pancreatitis. COMPARISON STUDY: CT of the abdomen and pelvis and MRCP November 12, 2018.] Ultrasound March 15, 2019 . TECHNIQUE: Following IV administration of 94 mL of Optiray-320, axial images of the abdomen and pelvi s were obtained from the lung bases to the proximal femurs. Images were reviewed in the axial, sagitt al, and coronal planes. IV contrast was administered without complication. Automated exposure contro l was utilized for the study. A dose lowering technique was utilized adhering to the principles of A KELLEE. CT DOSE: 290.87 mGycm FINDINGS: Lung bases are unremarkable. No pneumatosis, free air or portal venous gas is present. Comm on bile duct is mildly dilated, measuring 8 mm, following cholecystectomy. There is no pancreatic stephy raoul dilatation. There is minimal infiltration adjacent to the duodenum. Note is made of nonocclusive thrombus which measures 1.1 cm within the proximal main portal vein. This finding is new since CT of November 12, 2018. There is also mild narrowing at the portosplenic confluence. Superior mesenteric v ein and splenic vein are patent. There has been interval development of a 1.4 cm cystic lesion within the pancreatic neck and a 0.9 cm cystic lesion within the pancreatic head since CT of November 12 019. No additional lesions are noted. The spleen, adrenal glands and kidneys are normal. There is no hydronephrosis. The appendix is normal. No evidence for a bowel obstruction. No suspicious osseous le sions are present. IMPRESSION: 1. Mild infiltration adjacent to the duodenum, a nonspecific finding which be correlated with lipase level. 2. Interval development of nonocclusive thrombus within the main portal vein since CT of November 12, 2018. 3. Two small cystic pancreatic lesions, new since CT of November 12, 2018. These favor intrapancreati c pseudocysts. Mild mass effect upon the portosplenic confluence. An underlying neoplasm is considere d unlikely however short-term imaging follow-up or EUS is recommended to exclude this possibility. 4. Mild dilatation of the common bile duct measuring 8 mm. Electronically signed by: José Miguel Bruno M.D. 06/28/2019 11:22 AM
[2019-06-28] MEDS ORDERED: ENOXAPARIN 1 MG/KG SQ SCH (12:30)
[2019-06-28 12:35] LABS: INR 1.1 (0.9-1.1); Partial Thromboplastin Ratio 0.9; Partial Thromboplastin Time 25.4 Seconds (21.0-31.0); Prothrombin Time 10.9 Seconds (9.0-12.0)
--- NOTE | 2019-06-28 12:48 | History & Physical Report ---
Date of Service June 28, 2019 Assessment & Plan (1) Portal vein thrombosis: Admit to PCU on telemetry for observation Vital signs every 4 hours Started Lovenox therapeutic dose 1 mg/kg twice a day then start Warfarin Would repeat ultrasound of the abdomen the recommendation of the CT scan pain management. replenish lytes Start banana bag Continue with thiamine, folic acid, pantoprazole 40 mg BID [facility] protocol for impending alcohol withdrawal DVT ppx -Lovenox 1 mg /kg BID for portal thrombosis. Possibly due to liver cirrhoiss. Liver sono pending. hematology consult for unexpected thrombosis in young pt. Full code. Present on Admission?: Yes (2) Hypomagnesemia: Monitor Magnesium and replenish as needed. Present on Admission?: Yes (3) Acute hypokalemia: Monitor K, and replanish as needed. Most likely due to persistent vomiting. Present on Admission?: Yes (4) Alcohol abuse: Pt advised to quit drinking alcohol and join AA. [facility] banana bag, Famotidine 20 mg IV BID support Present on Admission?: Yes (5) Migraines: stable now, continue home meds as needed. Present on Admission?: Yes (6) Urinary tract infection: F/u Ucx started ceftriaxone empirically. Present on Admission?: Yes History of Present Illness Chief Complaint: partal vein thrombosis Primary Care Provider: Norberto Harrington DO Patient is a 38 years old female with past medical history of migraine, posttraumatic stress disorder, hiatal hernia, gallstone pancreatitis, alcohol abuse, GERD, acne vulgaris, who presents with severe abdominal pain that started this morning and it was worsening. Patient is unable to eat anything to have dry heaves. She is not vomiting in the present. Patient says she had one bowel movement this morning that it was diarrhea but normal in color patient reports there is no blood in there. Patient says she feels miserable. 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 She did mention that she drank a lot hard liquors in the past week, but did not drink anything in the past few days. Patient denies fever chills headache, chest pain, frequency, urgency, shortness of breath, hematuria, hematemesis, hematochezia, hemoptysis. Labs are reviewed: WBC 5.93, hemoglobin 16, hematocrit 47.7, platelets 349, PT 10.9, INR 1.1, APTT 25.4. Sodium 140, potassium 2.9, chloride 101, BUN 5, creatinine 0.66 EGFR one 1.3, glucose 130, magnesium 1.6, AST 64, ALT 69, alkaline phosphatase 329, troponin 0 0.015, beta- hCG negative, lipase 238. Patient has 5-10 white blood cells in urine, 2+ bacteria negative, negative nitrates, negative leukocyte esterase. Chest x- rays: No cardiopulmonary finding. Abdominal CT: Mild infiltration adjacent to the duodenum, a nonspecific finding which could be correlated with lipase level. Interval development of nonocclusive thrombus with the main portal vein since CT scan of November 12, 2018. 2 small cystic pancreatic lesion. New since CT of November 12, 2018. These favor intra-pancreatic pseudocysts. Mild mass affect upon the portal splenic confluence. A an underlying neoplasm is considered unlikely however short-term imaging follow-up or ultrasound is recommended. Mild dilatation of the common bile duct measuring 8 mm. Decision was made to admit patient for observation on telemetry to treat portal vein thrombosis with anticoagulation. Allergies Allergy/AdvReac Type Severity Reaction Status Date / Time buspirone [From BuSpar] Allergy Severe Unconscious, Verified 06/28/19 09:26 seizures quetiapine [From Seroquel] Allergy Severe Unconscious, Verified 06/28/19 09:26 seizures citalopram [From Celexa] AdvReac Intermediate Vomiting Verified 06/28/19 09:26 fluoxetine [From Prozac] AdvReac Intermediate VIOLENT Verified 06/28/19 09:26 VOMITING morphine AdvReac Intermediate "MAKES ME Verified 06/28/19 09:26 SICK(VOMITING)" vilazodone [From Viibryd] AdvReac Vomiting Verified 06/28/19 09:26 Home Medications Home Medications Medication Instructions Recorded Confirmed Type methocarbamol 500 mg tablet 500 mg PO BID PRN tab 03/16/19 06/28/19 History multivitamin 1 tab PO DAILY 03/18/19 06/28/19 History thiamine HCl (vitamin B1) [Vitamin 100 mg PO DAILY 03/18/19 06/28/19 History B-1] clindamycin HCl 300 mg capsule 300 mg PO QID #28 cap 03/26/19 06/28/19 Rx sumatriptan 100 mg tablet 100 mg PO UD PRN #30 tab 04/28/19 06/28/19 Rx ondansetron 4 mg disintegrating 4 mg PO Q6H #120 tab 05/14/19 06/28/19 Rx tablet cyanocobalamin (vit B-12) 250 mcg 250 mcg PO DAILY 06/01/19 06/28/19 History tablet magnesium oxide 400 mg (241.3 mg 400 mg PO DAILY tab 06/01/19 06/28/19 History magnesium) tablet medroxyprogesterone 150 mg/mL 150 mg IM .COMPLEX ml 06/01/19 06/28/19 History intramuscular suspension clonazepam 1 mg tablet 1 mg PO QID PRN #120 tab 06/28/19 Rx naproxen 500 mg tablet 500 mg PO BID #60 tab 06/28/19 Rx pantoprazole 40 mg tablet,delayed 40 mg PO BID #180 tab 06/28/19 Rx release Past Med/Surg History Medical History Back pain, chronic (Acute) Chronic neck pain (Acute) Depression with anxiety (Chronic) Insomnia (Acute) PTSD (post-traumatic stress disorder) (Acute) Migraines (Chronic) Hiatal hernia (Chronic) Acute gallstone pancreatitis Peptic ulcer disease 2 YEARS AGO DX Acne GERD (gastroesophageal reflux disease) 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) Liver enzyme elevation Pancreatitis alcoholic Panic attacks Surgical History "LAST APRIL" History of cholecystectomy History of esophagogastroduodenoscopy (EGD) History of lumpectomy of right breast BENIGN History of tooth extraction Family History Father Family history of diabetes mellitus Myocardial infarction Stroke Hypertension Grandfather (Maternal) Family history of diabetes mellitus Grandmother (Maternal) Family history of diabetes mellitus Hypertension Cancer Mother Hypothyroidism Grandfather Cancer Heart problem Social History Preferred Language: Burkinan Communication Ability: Effective 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 Operator Required: No Beliefs That Will Affect Care: None marital status: Single Current Living Situation: Parent current occupational status: unemployed Other Information That Helps Us Care for You: Yes (has counsellor) Feels Safe at Home: Yes Safety Concerns: Feels Safe At This Time Smoking Status: Current every day smoker Tobacco Type: cigarettes ; Cigarettes Per Day: 7 ; Do You Dip or Chew Tobacco: No ; Second Hand Exposure: No ; Tobacco Cessation Education Requested by Patient: No Hx Alcohol Use: Yes Alcohol type: wine Hx Substance Use: No Dental Care, Regularly: Yes Physical Activity Frequency: Does not Exercise Seatbelt Use: always Sunscreen Use: Yes Review of Systems Review of Systems: All systems reviewed & are unremarkable except as noted in HPI & below Physical Exam Constitutional: WD/WN, vitals as above well developed and + ill appearing Eyes: PERRL, conjunctivae normal, anicteric sclerae ENMT: external ear and nose normal, oropharynx normal Neck: trachea midline, no thyromegaly Respiratory: normal respiratory effort, lungs clear to auscultation Cardiovascular: RRR, no murmur, no edema Chest (Breasts): normal inspection/palpation of breasts Gastrointestinal (Abdomen): Inspection/Auscultation: abdomen normal to inspection and normal bowel sounds Percussion/Palpation: + abdomen tender, abdomen soft and normal to percussion Musculoskeletal: no cyanosis or clubbing, extremities motor strength 5/5 Skin: no rashes, warm and dry Neurologic: patellar DTR's 2+ bilat, sensation intact Psychiatric: A+Ox3, euthymic affect Lymphatic: no cervical or axillary lymphadenopathy Results & Data Vital Signs (Past 12 Hours) Vital Signs Temp Pulse Resp BP Pulse Ox 06/28/19 10:31 94 H 16 113/74 95 06/28/19 10:19 88 17 109/84 96 06/28/19 09:46 99 06/28/19 08:55 36.7 C 119 H 16 102/69 100 Code Status & VTE Plan Code Status Full code VTE Prophylaxis Plan VTE Prophylaxis will be ordered: Yes PG Care Time/CCT Total # of Minutes Spent Total Time Spent with Patient: Total time spent is greater than 50% in coordination of care (as documented) at patient's floor/unit and/or counseling patient:
[2019-06-28] MEDS ORDERED: cefTRIAXone SODIUM 1,000 MG/50 ML BAG IV STA (13:24)
[2019-06-28] MEDS ORDERED: LORazepam 1 MG/2 ML VIAL IV PRN (13:24)
[2019-06-28] MEDS ORDERED: ALUMINUM/MAGNESIUM SUSP 30 ML UDC PO PRN (13:24)
[2019-06-28] MEDS ORDERED: ZOLPIDEM TARTRATE 5 MG TAB PO PRN (13:24)
[2019-06-28] MEDS ORDERED: ACETAMINOPHEN 325 MG TAB PO PRN (13:24)
[2019-06-28] MEDS ORDERED: POLYETHYLENE (MIRALAX) 17 GM PACK PO PRN (13:24)
[2019-06-28] MEDS ORDERED: MAGNESIUM HYDROXIDE SUSP 30 ML UDC PO PRN (13:24)
[2019-06-28] MEDS ORDERED: MULTI-VITAMIN INFUSION 10 ML, THIAMINE HCL 100 MG, FOLIC ACID 1 MG in SODIUM CHLORIDE 0... IV ONE (13:24)
[2019-06-28] MEDS ORDERED: SUMAtriptan succinate 100 MG TAB PO PRN (13:24)
[2019-06-28 13:39] LABS: Amphetamines+Metham, Urine Neg (Neg); Barbiturates, Urine Neg (Neg); Benzodiazepine, Urine Neg (Neg); Cocaine, Urine Neg (Neg); MDMA (Ecstacy), Urine Neg (Neg); Methadone, Urine Neg (Neg); Opiate, Urine Pos (Neg); Phencyclidine, Urine Neg (Neg)
[2019-06-28] MEDS ORDERED: PROMETHAZINE HCL 25 MG in SODIUM CHLORIDE 0.9% 50 ML IV STA (13:41)
[2019-06-28 14:46] LABS: Folate (Folic Acid) 8.77 ng/ml (>5.38)
[2019-06-28] MEDS: PANTOprazole 40 MG TAB PO SCH ×2 (16:08→20:34)
[2019-06-28] MEDS: NSS + 20MEQ KCL 20 MEQ/1,000 ML BAG IV SCH (16:08)
[2019-06-28] MEDS: ENOXAPARIN INJ 60 MG/0.6 ML SYR SQ SCH ×2 (16:10→20:34)
[2019-06-28] MEDS: HYDROmorphone INJ 1 MG/ML SYRINGE IV PRN ×2 (16:15→20:33)
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
[2019-06-28] MEDS: ONDANSETRON INJ 2 MG/ML 2 ML VIAL IV PRN (18:09)
[2019-06-28] MEDS: clonazePAM 1 MG TAB PO PRN (20:46)
[2019-06-28] MEDS: FAMOTIDINE 20 MG in SYRINGE 3 ML IV SCH (20:46)
[2019-06-28] MEDS: PROMETHAZINE HCL 25 MG in SODIUM CHLORIDE 0.9% 50 ML IV PRN (20:47)
[2019-06-28] MEDS ORDERED: FAMOTIDINE 10 MG/ML 2ML VIAL IV SCH (21:00)
[2019-06-29] MEDS: HYDROmorphone INJ 1 MG/ML SYRINGE IV PRN ×7 (00:38→23:29)
[2019-06-29] MEDS: ONDANSETRON INJ 2 MG/ML 2 ML VIAL IV PRN ×2 (00:38→19:40)
[2019-06-29] MEDS: PROMETHAZINE HCL 25 MG in SODIUM CHLORIDE 0.9% 50 ML IV PRN (04:40)
[2019-06-29] MEDS: NSS + 20MEQ KCL 20 MEQ/1,000 ML BAG IV SCH (05:03)
[2019-06-29 07:01] LABS: INR 1.1 (0.9-1.1); Prothrombin Time 11.4 Seconds (9.0-12.0)
[2019-06-29 07:03] LABS: Basophils # (auto) 0.04 K/uL (0-0.2); Basophils % (auto) 0.5 %; Eosinophils # (auto) 0.37 K/uL (0-0.5); Hematocrit (blood only) 38.5 % (37-47); Hemoglobin 12.6 g/dL (12.0-16.0); Immature Granulocytes # (auto) 0.01 K/uL (0.00-0.02); Immature Granulocytes % (auto) 0.1 %; Lymphocytes # (auto) 2.46 K/uL (1.2-3.4); Lymphocytes % (auto) 33.3 %; Mean Corpuscular Hemoglobin 34.7 pg (25-34); Mean Corpuscular Hgb Conc 32.7 g/dL (32-36); Mean Corpuscular Volume 106.1 fL (80-100); Mean Platelet Volume 9.9 fL (7.4-10.4); Monocytes # (auto) 0.41 K/uL (0.11-0.59); Monocytes % (auto) 5.5 %; Neutrophils % (auto) 55.6 %; Platelet Count 277 K/uL (130-400); RDW Standard Deviation 50.7 fL (36.4-46.3); Red Blood Count 3.63 M/uL (4.2-5.4); White Blood Count 7.39 K/uL (4.8-10.8)
[2019-06-29 07:24] LABS: Alanine Aminotransferase 43 U/L (12-78); Albumin Level 2.6 gm/dl (3.4-5.0); Aspartate Aminotransferase 31 U/L (15-37); BUN Creatinine Ratio 5.9 (10-20); Blood Urea Nitrogen 2 mg/dl (7-18); Calcium 7.7 mg/dl (8.5-10.1); Carbon Dioxide 27 mmol/L (21-32); Chloride 108 mmol/L (98-107); Creatinine Clr Calc Pharmacy 164.4 ml/min; Est GFR (African American) > 150.0; Est GFR (Non-African American) 133.4; Glucose 70 mg/dl (70-99); Magnesium 1.8 mg/dl (1.8-2.4); Potassium 3.2 mmol/L (3.5-5.1); Sodium 143 mmol/L (136-145)
[2019-06-29 07:28] LABS: Alkaline Phosphatase 200 U/L (45-117); Bilirubin,Total 0.4 mg/dl (0.2-1); Globulin 2.7 gm/dl (2.5-4.0); Total Protein 5.3 gm/dl (6.4-8.2)
[2019-06-29] MEDS: FAMOTIDINE 20 MG in SYRINGE 3 ML IV SCH ×2 (08:19→21:11)
[2019-06-29] MEDS: FOLIC ACID 1 MG in SYRINGE 9.8 ML IV SCH (08:20)
[2019-06-29] MEDS: PANTOprazole 40 MG TAB PO SCH ×2 (08:20→19:45)
[2019-06-29] MEDS: ENOXAPARIN INJ 60 MG/0.6 ML SYR SQ SCH ×2 (08:20→19:44)
[2019-06-29] MEDS: clonazePAM 1 MG TAB PO PRN (08:21)
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
[2019-06-29] MEDS ORDERED: THIAMINE HCL 100 MG in SYRINGE 9 ML IV SCH (09:00)
[2019-06-29] MEDS ORDERED: cefTRIAXone SODIUM 1,000 MG/50 ML BAG IV SCH (09:00)
[2019-06-29] MEDS ORDERED: MAGNESIUM SULFATE / D5W 1 GM/100 ML BAG IV ONE (09:26)
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
--- NOTE | 2019-06-29 09:37 | Ultrasound Report ---
ULTRASOUND RIGHT UPPER QUADRANT ABDOMEN CLINICAL HISTORY: Alcohol abuse. Portal vein thrombus. COMPARISON STUDY: Abdominal CT dated 06/28/2019. TECHNIQUE: Real-time, grayscale, and color flow sonography of the right upper quadrant of the abdomen was performed. Images are reviewed in the transverse and longitudinal planes. FINDINGS: Liver: The liver is normal in size and demonstrates heterogeneously increased echotexture consistent with steatosis. Mild nodularity of the hepatic surface contour suggests early change of cirrhosis. Th ere is no intrahepatic biliary ductal dilatation. The main portal vein is patent. Gallbladder: The gallbladder is surgically absent. The common bile duct measures up to 0.8 cm in diam eter. Pancreas: Visualized portions of the pancreatic head and body are normal in appearance. The splenic v ein appears patent. Right kidney: Survey images of the right kidney demonstrate normal size and echotexture. There is no hydronephrosis. Ascites: None. IMPRESSION: 1. The liver shows evidence of steatosis an early changes of cirrhosis. 2. Status post cholecystectomy. 3. The portal vein thrombus seen by CT was not visualized by ultrasound. This was much better assesse d on yesterday's CT scan. Electronically signed by: Austin Hines M.D. 06/29/2019 9:36 AM
[2019-06-29] MEDS: POTASSIUM CHLORIDE / WTR 10 MEQ/100 ML PLCT IV SCH ×4 (09:57→14:00)
[2019-06-29] MEDS ORDERED: WARFARIN SOD 10 MG TAB PO STA (11:46)
[2019-06-29] MEDS: CYANOCOBALAMIN 500 MCG TABLET (VITAMIN B-12) PO SCH ×2 (12:18→19:45)
[2019-06-29] MEDS: THIAMINE HCL 500 MG in SODIUM CHLORIDE 0.9% 50 ML IV SCH ×2 (15:06→23:29)
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
[2019-06-29] MEDS ORDERED: Nursing to Pharmacy Communication ONE (15:42)
[2019-06-30] MEDS: PROMETHAZINE HCL 25 MG in SODIUM CHLORIDE 0.9% 50 ML IV PRN ×3 (00:08→18:26)
[2019-06-30 07:06] LABS: Basophils # (auto) 0.03 K/uL (0-0.2); Basophils % (auto) 0.5 %; Eosinophils # (auto) 0.37 K/uL (0-0.5); Eosinophils % (auto) 5.8 %; Hematocrit (blood only) 38.7 % (37-47); Hemoglobin 12.9 g/dL (12.0-16.0); Immature Granulocytes # (auto) 0.01 K/uL (0.00-0.02); Immature Granulocytes % (auto) 0.2 %; Lymphocytes # (auto) 1.84 K/uL (1.2-3.4); Lymphocytes % (auto) 28.9 %; Mean Corpuscular Hemoglobin 34.9 pg (25-34); Mean Corpuscular Hgb Conc 33.3 g/dL (32-36); Mean Corpuscular Volume 104.6 fL (80-100); Monocytes # (auto) 0.57 K/uL (0.11-0.59); Neutrophils # (auto) 3.54 K/uL (1.4-6.5); Neutrophils % (auto) 55.6 %; Platelet Count 233 K/uL (130-400); RDW Standard Deviation 49.7 fL (36.4-46.3); White Blood Count 6.36 K/uL (4.8-10.8)
[2019-06-30 07:18] LABS: INR 1.2 (0.9-1.1); Prothrombin Time 11.8 Seconds (9.0-12.0)
[2019-06-30] MEDS: CYANOCOBALAMIN 500 MCG TABLET (VITAMIN B-12) PO SCH ×2 (07:28→20:58)
[2019-06-30] MEDS: PANTOprazole 40 MG TAB PO SCH ×2 (07:28→20:57)
[2019-06-30] MEDS: clonazePAM 1 MG TAB PO PRN ×2 (07:28→12:00)
[2019-06-30] MEDS: ENOXAPARIN INJ 60 MG/0.6 ML SYR SQ SCH ×2 (07:29→20:57)
[2019-06-30] MEDS: ONDANSETRON INJ 2 MG/ML 2 ML VIAL IV PRN ×2 (07:31→20:56)
[2019-06-30] MEDS: FAMOTIDINE 20 MG in SYRINGE 3 ML IV SCH (07:38)
[2019-06-30] MEDS: FOLIC ACID 1 MG in SYRINGE 9.8 ML IV SCH (07:39)
[2019-06-30 07:41] LABS: Alanine Aminotransferase 38 U/L (12-78); Albumin Level 2.7 gm/dl (3.4-5.0); Aspartate Aminotransferase 37 U/L (15-37); BUN Creatinine Ratio 4.1 (10-20); Blood Urea Nitrogen 2 mg/dl (7-18); Calcium 8.6 mg/dl (8.5-10.1); Carbon Dioxide 27 mmol/L (21-32); Chloride 106 mmol/L (98-107); Creatinine Clr Calc Pharmacy 160.2 ml/min; Est GFR (African American) > 150.0; Est GFR (Non-African American) 132.3; Glucose 78 mg/dl (70-99); Potassium 3.5 mmol/L (3.5-5.1); Sodium 139 mmol/L (136-145)
[2019-06-30 07:44] LABS: Alkaline Phosphatase 195 U/L (45-117); Bilirubin,Total 0.3 mg/dl (0.2-1); Globulin 2.8 gm/dl (2.5-4.0); Total Protein 5.5 gm/dl (6.4-8.2)
[2019-06-30] MEDS ORDERED: THIAMINE HCL 200 MG in SODIUM CHLORIDE 0.9% 50 ML IV SCH (09:00)
[2019-06-30] MEDS: THIAMINE HCL 500 MG in SODIUM CHLORIDE 0.9% 50 ML IV SCH (09:41)
[2019-06-30] MEDS: HYDROmorphone INJ 1 MG/ML SYRINGE IV PRN ×4 (09:41→20:56)
--- NOTE | 2019-06-30 14:13 | Family Medicine Progress Note ---
Date of Service June 30, 2019 Assessment & Plan (1) Portal vein thrombosis: Gely is a 38-year-old female with a past medical history of migraines, PTSD, gallstone pancreatitis, alcohol abuse, and anxiety who presented with several days of severe abdominal pain and decreased appetite into has been found to have a portal vein thrombosis on admission. Portal vein thrombosis CTA/P: Mild duodenal infiltration, nonocclusive thrombus of the main portal vein new since 11/12/2018, 2 small cystic pancreatic lesions new since 11/12/2018 suggestive of intrapancreatic pseudocysts. Mild mass-effect on portal splenic confluence. Dilation of common bile duct to 8 mm. Heme-onc consulted. Suspect due to compression, family history of thrombosis suggests possible genetic coagulopathy. Therapeutic Lovenox 1mpk twice daily, bridge to warfarin. Family history of coagulopathy. Recommend screening for factor V Leiden, prothrombin, and antiphospholipid antibodies per heme-onc. May screen for protein C, protein S, and Antithrombin III once she has completed and come off anticoagulation. Appreciate recommendations. Abdominal pain Ultrasound shows fatty liver changes with mild cirrhosis CT results as above Lipase normal Pain control with APAP 650 mg p.o. every 4 hours (no recent active alcohol use), received 1 dose of Toradol in the ED. Hydromorphone 1 mg IV ordered for breakthrough - Zofran/Phenergan for nausea PRN - PO intake improving History of alcohol abuse - AWSS/CIWA scoring protocol. No Chlordiazepoxide/Gabapentin protocol at this time. No history of withdrawal symptoms, reported last drink several days ago. Discussed with nursing staff who expressed concern for hallucinations/AMS - Thiamine high dose protocol. 500mg IV TID x1 day --> 200mg IV QD x1 day --> 100mg PO daily Folic acid 1mg daily - On clonazepam QID PRN [employer]. Protonix 40 mg p.o. twice daily, famotidine 20 mg IV twice daily Occult blood pending PTSD/anxiety Pt has substantial psychosocial stress Discussed with patient, feels overwhelmed at this time and would like to follow-up with her therapist Pt requested to speak with psychiatry while admitted, on further discussion with care team would like to followup with her outpatient provider and declines to be seen by inpt psych at this time. Migraines Continue [employer]IST sumatriptan as needed Asymptomatic Bacteruria UA suggestive of infection UC ng - No abx at this time Hypomagnesemia, acute hypokalemia MG 1.6 on admit, received 1 g magnesium in ED - Potassium normalized today, mg normalized today BMP daily FEN GI: Regular Diet DVT prophylaxis: On therapeutic Lovenox CODE STATUS: Full code Disposition: Ongoing Supervising Physician Co-Signing Physician Notes I personally examined the patient and verified all hammonds points of history and exam, discussed case, and agree with decision making with Dr Myers. Overall feeling better. Back pain significantly better, abdominal pain and nausea also a good deal better. Still anxious but seems more calm. Vitals noted, in general she is awake and alert pleasant for less anxious and in no distress. HEENT normal cephalic atraumatic mucous members moist. Breathing unlabored no accessory muscle use good effort. Skin shows no rashes no pallor or icterus. Portal vein thrombosislikely relates to distorted anatomy of the portal venous system as it goes around her pancreatic cysts. Continue Lovenox bridge to Coumadin Abdominal pain/back pain either relates to above, gastritis, or boththis is improving. Continue management for both.. She probably has some degree of chronic pancreatitis, but with a normal lipase, there is really not likely much of any acute. Anxiety/PTSDreassurance, supportive care. Doing better today. Was unable to get back in with her prior therapist, asks if psychiatry can help her with the referral process Otherwise as above Subjective Gely reports she feels better today. She continues to have some abdominal pain and nausea, but improved from prior. Denies fever, chills, sweats. No chest pain, chest pressure, shortness of breath, dyspnea this morning. No signs of bleeding. No questions or concerns at time of visit this morning. Would like to followup with her outpatient psychiatrist, declines psych evaluation here today. Review of Systems Review of Systems: Constitutional: Denies fever, chills. Endorses anxiety Eyes: Denies vision change ENT: Denies ear pain, sore throat, sinus pain Cardiovascular: Denies Chest pain, chest pressure, extremely swollen Respiratory: Denies shortness of breath, cough, sputum production, difficulty breathing Gastrointestinal: Endorses abdominal pain, nausea as noted in subjective. Denies constipation, diarrhea Genitourinary: Denies dysuria/urinary symptoms Musculoskeletal: Endorses back pain, chronic, as noted in HPI Integumentary:Denies rash, lesions, bruising Neurological: Denies headache today. denies numbness, tingling, focal weakness Physical Exam Physical Exam: General: A&Ox3. Mood 'anxious'. Appears anxious. Cooperative. Follows commands. No tremors. Not responding to internal stimuli. HEENT: Atraumatic, normocephalic. Pupils equal and reactive to light and accommodation. EOM intact. Visual acuity grossly intact. Pulm: CTAB A&P. -wheezes, -rales, -rhonchi. Symmetrical chest rise. No increase work of breathing. No respiratory distress. Cardiac: RRR, -mrg. Radial pulses intact and symmetrical. Abdominal: Mild Epigastric tenderness to palpation. Mild Upper/lower quadrant tenderness to palpation, improved from prior. Nondistended, soft. No rebound tenderness. Aparicio's negative. Results & Data Vital Signs (Past 12 Hours) Vital Signs Temp Pulse Pulse Resp BP Pulse Ox 06/30/19 10:59 36.4 C L 83 20 119/83 99 06/30/19 08:00 77 06/30/19 07:48 36.9 C 87 20 124/86 100 06/30/19 02:58 36.6 C 69 16 123/85 93 PG Care Time/CCT Total # of Minutes Spent Total Time Spent with Patient: Total time spent is greater than 50% in coordination of care (as documented) at patient's floor/unit and/or counseling patient: Resident Activity Tracking Resident Involvement: Resident Care Provided Care Provided: Adult Hospital Medicine
[2019-06-30] MEDS ORDERED: WARFARIN SOD 10 MG TAB PO ONE (16:00)
[2019-06-30] MEDS ORDERED: WARFARIN SOD 5 MG TAB PO SCH (16:00)
[2019-06-30] MEDS: FAMOTIDINE 20 MG TAB PO SCH (20:57)
[2019-07-01] MEDS: PROMETHAZINE HCL 25 MG in SODIUM CHLORIDE 0.9% 50 ML IV PRN ×3 (00:29→14:19)
[2019-07-01] MEDS: HYDROmorphone INJ 1 MG/ML SYRINGE IV PRN ×7 (00:30→22:50)
[2019-07-01] MEDS: ONDANSETRON INJ 2 MG/ML 2 ML VIAL IV PRN (05:02)
[2019-07-01 07:22] LABS: Basophils # (auto) 0.05 K/uL (0-0.2); Basophils % (auto) 0.8 %; Eosinophils # (auto) 0.33 K/uL (0-0.5); Eosinophils % (auto) 5.1 %; Hematocrit (blood only) 40.8 % (37-47); Hemoglobin 13.4 g/dL (12.0-16.0); Immature Granulocytes # (auto) 0.01 K/uL (0.00-0.02); Immature Granulocytes % (auto) 0.2 %; Lymphocytes # (auto) 1.84 K/uL (1.2-3.4); Lymphocytes % (auto) 28.5 %; Mean Corpuscular Hemoglobin 34.5 pg (25-34); Mean Corpuscular Hgb Conc 32.8 g/dL (32-36); Mean Corpuscular Volume 105.2 fL (80-100); Mean Platelet Volume 9.8 fL (7.4-10.4); Monocytes # (auto) 0.64 K/uL (0.11-0.59); Monocytes % (auto) 9.9 %; Neutrophils # (auto) 3.58 K/uL (1.4-6.5); Neutrophils % (auto) 55.5 %; Platelet Count 231 K/uL (130-400); RDW Coefficient of Variation 13.1 % (11.5-14.5); RDW Standard Deviation 50.7 fL (36.4-46.3); Red Blood Count 3.88 M/uL (4.2-5.4); White Blood Count 6.45 K/uL (4.8-10.8)
[2019-07-01 07:29] LABS: INR 1.6 (0.9-1.1)
[2019-07-01] MEDS: PANTOprazole 40 MG TAB PO SCH ×2 (07:47→22:45)
[2019-07-01] MEDS: CYANOCOBALAMIN 500 MCG TABLET (VITAMIN B-12) PO SCH ×2 (07:47→22:45)
[2019-07-01] MEDS: FOLIC ACID 1 MG TAB PO SCH (07:47)
[2019-07-01] MEDS: FAMOTIDINE 20 MG TAB PO SCH ×2 (07:47→22:45)
[2019-07-01] MEDS: ENOXAPARIN INJ 60 MG/0.6 ML SYR SQ SCH (07:48)
[2019-07-01 07:51] LABS: Albumin Level 2.9 gm/dl (3.4-5.0); BUN Creatinine Ratio 4.3 (10-20); Calcium 8.7 mg/dl (8.5-10.1); Creatinine Clr Calc Pharmacy 127.5 ml/min; Est GFR (African American) 142.2; Est GFR (Non-African American) 122.7; Potassium 3.8 mmol/L (3.5-5.1)
[2019-07-01 07:53] LABS: Bilirubin,Total 0.2 mg/dl (0.2-1); Globulin 2.9 gm/dl (2.5-4.0); Total Protein 5.8 gm/dl (6.4-8.2)
[2019-07-01] MEDS ORDERED: THIAMINE HCL 200 MG in SODIUM CHLORIDE 0.9% 50 ML IV SCH (09:00)
[2019-07-01] MEDS ORDERED: THIAMINE HCL 100 MG TAB PO SCH (09:00)
[2019-07-01 10:49] LABS: Codeine Urine NEGATIVE NG/ML (CUTOFF=50); Hydrocodone Urine NEGATIVE NG/ML (CUTOFF=50); Hydromor Urine 802 NG/ML (CUTOFF=50); Marijuana Quant, GCMS Urine 309 NG/ML (CUTOFF=5); Morphine Urine NEGATIVE NG/ML (CUTOFF=50); Norhydrocodone Conf Ur NEGATIVE NG/ML (CUTOFF=50); Noroxycodone Urine NEGATIVE NG/ML (CUTOFF=50); Oxycodone Urine NEGATIVE NG/ML (CUTOFF=50); Oxymorph Urine NEGATIVE NG/ML (CUTOFF=50)
[2019-07-01] MEDS: ONDANSETRON INJ 2 MG/ML 2 ML VIAL IV SCH ×2 (12:12→19:25)
[2019-07-01] MEDS: clonazePAM 1 MG TAB PO PRN ×2 (12:16→17:00)
--- NOTE | 2019-07-01 13:32 | Gastrointestinal Consultation ---
Date of Consultation July 01, 2019 Assessment & Plan (1) Abdominal pain: EGD tomorrow by Dr. Willett. This is needed to r/o ulcers, potential bleeding lesions in light of anticoagulation for PVT and t/o r/o esophageal varices and portal hypertensive gastropathy in light of US with suggestion of early cirrhosis. If esophageal varices are present, we would like to band those, therefore, will hold anticoagulation until after EGD. Further recommendations to follow EGD. Add: I interviewed and examined pt, reviewed chart and labs. Pt with h/o heavy alcohol, prior episode of alcoholic pancreatitis now with 2 weeks of chest pain that worsens with deep breath and marked nausea that worsens with PO. She also has a h/o heavy NSAID use. She had CT on admission which shows pseudocyst x 2 in the panc head, thrombosis of portal vein adjacent to pancreas. Imaging does not show ascites/bowel wall thickening, varices, splenomegaly or bowel wall thickening. Her labs show recent onset of alk phos with normal bili; normal lipase; nl WBC/plts. On my exam today, is anxious and intermittently crying, she has no ascites, abd tenderness, lower extrem edema. I reviewed her films with radiologist. 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 Agree with hypercoag w/u suggested by heme; would recommend consideration for PNH and myeloprolif sydnrome as well, but will defer to heme. Agree with anticoagulation; pt needs variceal screening as well and serologic w/u for liver disease as well. Discussed need for EtOH cessation; PCP has d/w pt as well. She reports food intolerance; although mesenteric ischemia (gastroparesis?) is possible, I suspect that this is may be more likely related to NSAID enteropathy, chan given lack of other imaging findings suggestive of mesenteric ischemia. 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 Will request MRCP to look for ampullary obstruction or ductal disruption; of note, she has no amaury dil or PD dilation on imaging. - Regarding LFT elevation: Her alk phos elevation is likely related to portal cholangiopathy. MRCP will evaluate this. Will hold anti-coag overnight pending EGD. Of note, she initially described pleuritic CP to me, although she is an inconsistent historian. Would ask primary service to consider PE protocol CT. Present on Admission?: Yes (2) Cirrhosis of liver: US with suggestion of early cirrhosis. Regarding cause of cirrhosis: - Will need ongoing OP GI. Present on Admission?: Yes History of Present Illness Reason for Consultation: persist stomach pain, past hematemesis, ?EGD Requesting Physician: Dr. Enrique Myers Attending Physician: Narinder Calhoun, History of Present Illness Ms. Nadja Pete is a 38 yr old female with a hx of anxiety, pancreatitis, migraines, chronic pain, PTSD and increased alcohol intake. When asked about alcohol intake, she reports significantly decreasing her intake which currently is about 2 beers/week. She presented on 06/28 for abdominal pain. GI is consulted for abdominal pain. Ms. Pete tells Dr. Willett and I that she has had abdominal pain for a few weeks, much worse in the last two days, radiating to the mid/upper back and associated with nausea. Pain is worse after eating. On one occasion she vomited up a small amt of coffee grounds type emesis. On arrival Hb 16, US suggests early cirrhosis; Non contrast CT of the abdomen/pelvis with nonocclusive thrombus within the main portal vein, two small cystic pancreatic lesions, (? pseudocysts) and mild mass effect upon the portosplenic confluence. Since arrival, pain continues, w/o gross GI bleeding. Hb with dilutional effect 16->13.4. Placed on warfarin and enoxaparin. INR today 1.6. BUN has not been elevated. Most recent prior endoscopy in August 2017 for abdominal pain by Dr. Soliz with gastritis. In 2015, she underwent EUS for f/u pancreatitis with gallbladder sludge, no other significant abnormalities and in 09/2017 underwent Lap Choley. Allergies Allergy/AdvReac Type Severity Reaction Status Date / Time buspirone [From BuSpar] Allergy Severe Unconscious, Verified 06/28/19 09:26 seizures quetiapine [From Seroquel] Allergy Severe Unconscious, Verified 06/28/19 09:26 seizures citalopram [From Celexa] AdvReac Intermediate Vomiting Verified 06/28/19 09:26 fluoxetine [From Prozac] AdvReac Intermediate VIOLENT Verified 06/28/19 09:26 VOMITING morphine AdvReac Intermediate "MAKES ME Verified 06/28/19 09:26 SICK(VOMITING)" [facility] AdvReac Vomiting Verified 06/28/19 09:26 Home Medications Home Medications Medication Instructions Recorded Confirmed Type methocarbamol 500 mg tablet 500 mg PO BID PRN tab 03/16/19 06/28/19 History multivitamin 1 tab PO DAILY 03/18/19 06/28/19 History thiamine HCl (vitamin B1) [Vitamin 100 mg PO DAILY 03/18/19 06/28/19 History B-1] clindamycin HCl 300 mg capsule 300 mg PO QID #28 cap 03/26/19 06/28/19 Rx sumatriptan 100 mg tablet 100 mg PO UD PRN #30 tab 04/28/19 06/28/19 Rx cyanocobalamin (vit B-12) 250 mcg 250 mcg PO DAILY 06/01/19 06/28/19 History tablet magnesium oxide 400 mg (241.3 mg 400 mg PO DAILY tab 06/01/19 06/28/19 History magnesium) tablet medroxyprogesterone 150 mg/mL 150 mg IM .COMPLEX ml 06/01/19 06/28/19 History intramuscular suspension clonazepam 1 mg tablet 1 mg PO QID PRN #120 tab 06/28/19 Rx naproxen 500 mg tablet 500 mg PO BID #60 tab 06/28/19 Rx pantoprazole 40 mg tablet,delayed 40 mg PO BID #180 tab 06/28/19 Rx release ondansetron 4 mg disintegrating 4 mg PO Q6H #120 tab 06/29/19 Rx tablet cyanocobalamin (vitamin B-12) 500 mcg PO BID 30 Days #60 tab 07/01/19 Rx enoxaparin 60 mg SUBCUT BID 5 Days #10 syr 07/01/19 Rx folic acid 1 mg PO QAM 30 Days #30 tab 07/01/19 Rx thiamine HCl (vitamin B1) [Vitamin 100 mg PO DAILY 30 Days #30 tab 07/01/19 Rx B-1] warfarin [Coumadin] 5 mg PO DAILY@1600 30 Days #3 tab 07/01/19 Rx Patient History Medical History Back pain, chronic (Acute) Chronic neck pain (Acute) Depression with anxiety (Chronic) Insomnia (Acute) PTSD (post-traumatic stress disorder) (Acute) Migraines (Chronic) Hiatal hernia (Chronic) Acute gallstone pancreatitis Peptic ulcer disease 2 YEARS AGO DX Acne GERD (gastroesophageal reflux disease) Kidney failure 2009 (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) Liver enzyme elevation Pancreatitis alcoholic Panic attacks Surgical History "LAST APRIL" History of cholecystectomy History of esophagogastroduodenoscopy (EGD) History of lumpectomy of right breast BENIGN History of tooth extraction Family History Father Family history of diabetes mellitus Myocardial infarction Stroke Hypertension Grandfather (Maternal) Family history of diabetes mellitus Grandmother (Maternal) Family history of diabetes mellitus Hypertension Cancer Mother Hypothyroidism Grandfather Cancer Heart problem Social History Preferred Language: Togolese Communication Ability: Effective Real Estate Representative Required: No Beliefs That Will Affect Care: None marital status: Single Current Living Situation: Parent current occupational status: unemployed Feels Safe at Home: Yes Smoking Status: Current every day smoker Tobacco Type: cigarettes ; Cigarettes Per Day: 7 ; Second Hand Exposure: No ; Hx Alcohol Use: Yes Alcohol type: wine Hx Substance Use: No Dental Care, Regularly: Yes Physical Activity Frequency: Does not Exercise Seatbelt Use: always Sunscreen Use: Yes Review of Systems Review of Systems: ROS: Gen: + stress/anxiety. Reports 7 lbs weight loss in about 2 weeks. Denies weakness, fevers Eyes: No eye redness, or pain, no recent vision changes Resp: No SOB, no cough Cardio: No palpitations/irregular beats, no chest pain GI: + upper abdomen pain, + nausea, one episode of vomiting. : Denies pain on urination Skin: No jaundice, itching or new rashes Physical Exam Constitutional: WD/WN, vitals as above Eyes: PERRL, conjunctivae normal, anicteric sclerae ENMT: external ear and nose normal, oropharynx normal Neck: trachea midline, no thyromegaly Respiratory: normal respiratory effort, lungs clear to auscultation Cardiovascular: RRR, no murmur, no edema Gastrointestinal (Abdomen): Inspection/Auscultation: abdomen normal to inspection and normal bowel sounds; abdomen not distended Percussion/Palpation: + abdomen tender (mild, upper abdomen) and abdomen soft; no hepatosplenomegaly Skin: no jaundice cystic acne Neurologic: PERRL, EOMI, accommodation nl, no face palsy, no dysarthria Psychiatric: Orientation: alert and oriented x 3 Tearful at times Lymphatic: no cervical or axillary lymphadenopathy Results & Data Vital Signs (Past 12 Hours) Vital Signs Temp Pulse Resp BP Pulse Ox 07/01/19 11:27 36.8 C 86 18 109/74 96 07/01/19 07:09 36.4 C L 73 18 117/81 97 07/01/19 03:08 36.5 C 89 17 116/81 94 Diagnostic Findings Non contrast CT abd/pelvis 07/28/19: Mild nodularity of the hepatic surface contour suggests early change of cirrhosis. 1. Mild infiltration adjacent to the duodenum, a nonspecific finding which be correlated with lipase level. 2. Interval development of nonocclusive thrombus within the main portal vein since CT of November 12, 2018. 3. Two small cystic pancreatic lesions, new since CT of November 12, 2018. These favor intrapancreatic pseudocysts. Mild mass effect upon the portosplenic confluence. An underlying neoplasm is considered unlikely however short-term imaging follow-up or EUS is recommended to exclude this possibility. 4. Mild dilatation of the common bile duct measuring 8 mm. Liver US 06/28/19: 1. The liver shows evidence of steatosis an early changes of cirrhosis. 2. Status post cholecystectomy. 3. The portal vein thrombus seen by CT was not visualized by ultrasound. This was much better assessed on yesterday's CT scan. (1) Abdominal pain Abdominal location: unspecified location Qualified Code(s): R10.9 - Unspecified abdominal pain
--- NOTE | 2019-07-01 13:40 | Family Medicine Progress Note ---
Date of Service July 01, 2019 Assessment & Plan (1) Portal vein thrombosis: Gely is a 38-year-old female with a past medical history of migraines, PTSD, gallstone pancreatitis, alcohol abuse, and anxiety who presented with several days of severe abdominal pain and decreased appetite into has been found to have a portal vein thrombosis on admission. Portal vein thrombosis CTA/P: Mild duodenal infiltration, nonocclusive thrombus of the main portal vein new since 11/12/2018, 2 small cystic pancreatic lesions new since 11/12/2018 suggestive of intrapancreatic pseudocysts. Mild mass-effect on portal splenic confluence. Dilation of common bile duct to 8 mm. Heme-onc consulted. Suspect due to compression, family history of thrombosis suggests possible genetic coagulopathy. Therapeutic Lovenox 1mpk twice daily, bridging to warfarin. - Warfarin 5mg PO daily Family history of coagulopathy. Recommend screening for factor V Leiden, prothrombin, and antiphospholipid antibodies per heme-onc. May screen for protein C, protein S, and Antithrombin III once she has completed and come off anticoagulation. Appreciate recommendations. Abdominal pain Ultrasound shows fatty liver changes with mild cirrhosis CT results as above Lipase normal Pain control with APAP 650 mg p.o. every 4 hours (no recent active alcohol use), received 1 dose of Toradol in the ED. Hydromorphone 1 mg IV ordered for breakthrough - Zofran CIRO for nausea, phenergan PRN - Persistent epigastric pain limiting PO intake with hx of hematemesis and high NSAID use. Occult blood still pending. GI Consulted. - NPO @ 0000, EGD tomorrow History of alcohol abuse - AWSS/CIWA scoring protocol. No Chlordiazepoxide/Gabapentin protocol at this time. No history of withdrawal symptoms, reported last drink several days ago. Discussed with nursing staff who expressed concern for hallucinations/AMS - Thiamine high dose protocol. 500mg IV TID x1 day --> 200mg IV QD x1 day --> 100mg PO daily Folic acid 1mg daily - On clonazepam QID PRN OPHTHALMIC ASST. Protonix 40 mg p.o. twice daily, famotidine 20 mg IV twice daily PTSD/anxiety Pt endorses high psychosocial stress Pt requested to speak with psychiatry on admission admitted, on further discussion with care team would like to followup with her outpatient provider and declines to be seen by inpt psych at this time. Migraines Continue OPHTHALMIC ASST sumatriptan as needed Asymptomatic Bacteruria UA suggestive of infection UC ng - No abx at this time Hypomagnesemia, acute hypokalemia, improved MG 1.6 on admit, received 1 g magnesium in ED BMP daily FEN GI: Regular Diet, NPO if pending EGD per GI DVT prophylaxis: On therapeutic Lovenox CODE STATUS: Full code Disposition: Ongoing Supervising Physician Co-Signing Physician Notes I personally examined the patient and verified all hammonds points of history and exam, discussed case, and agree with decision making with Dr Myers. Pain generally seems better, although still present. Her biggest problem is that the nausea seems to have gotten worse to the point that she is really not able to eat anything. Vitals noted, in general she is awake and alert pleasant but anxious and in no distress. HEENT normal cephalic atraumatic mucous members moist. Breathing unlabored no accessory muscle use good effort. Skin shows no rashes no pallor or icterus. Epigastric tenderness to palpation without guarding rebound or rigidity. Portal vein thrombosislikely relates to distorted anatomy of the portal venous system as it goes around her pancreatic cysts. Continue Lovenox bridge to Coumadin (okay to hold for EGD) Abdominal pain/back pain and nausea either relates to above, gastritis, or bothpain is improved, exam does not show any catastrophes, but nausea is worseninghence GI consult, anticipate EGD, appreciate further assistance as well.. She probably has some degree of chronic pancreatitis, but with a normal lipase, there is really not likely much of any acute. Anxiety/PTSDreassurance, supportive care. Will need outpatient follow-up in this regard. Otherwise as above Lacho Wick is seen at the bedside today. She reports she felt well this morning, but as soon as he tried to eat she continued to have severe epigastric abdominal pain. He is unable to tolerate more than a couple of bites of food due to her stomach pain. She has been getting tonics twice daily and famotidine. She is frustrated by her pain. She reports she has had multiple EGDs in the past, but the last was over a year and a half ago. She reports she has had hematemesis in the past, none since admission. She had been taking high doses of NSAIDs for pain prior to admission. Denies fever, chills, sweats, shortness of breath, difficulty breathing, chest pain, chest pressure. She has not yet had a bowel movement, has not noticed any bright red blood per rectum or melena recently. Review of Systems Review of Systems: Constitutional: Denies fever, chills. Endorses anxiety Eyes: Denies vision change ENT: Denies ear pain, sore throat, sinus pain Cardiovascular: Denies Chest pain, chest pressure, extremely swollen Respiratory: Denies shortness of breath, cough, sputum production, difficulty breathing Gastrointestinal: Endorses abdominal pain, as noted in subjective. Endorses nausea. Denies constipation, diarrhea. Endorses small hematemesis in the month prior to admission. Genitourinary: Denies dysuria/urinary symptoms Musculoskeletal: Endorses back pain, chronic, as noted in HPI Integumentary:Denies rash, lesions, bruising Neurological: Denies headache today. denies numbness, tingling, focal weakness Physical Exam Physical Exam: General: A&Ox3. Appears anxious. Cooperative. Follows commands. No tremors. Not responding to internal stimuli. HEENT: Atraumatic, normocephalic. Pupils equal and reactive to light and accommodation. Visual acuity grossly intact. Pulm: CTAB A&P. -wheezes, -rales, -rhonchi. Symmetrical chest rise. No increase work of breathing. No respiratory distress. Cardiac: RRR, -mrg. Radial pulses intact and symmetrical. Abdominal: Epigastric tenderness to palpation. Nondistended, soft. No rebound tenderness. Nonrigid. Aparicio's negative. Results & Data Vital Signs (Past 12 Hours) Vital Signs Temp Pulse Resp BP Pulse Ox 07/01/19 11:27 36.8 C 86 18 109/74 96 07/01/19 07:09 36.4 C L 73 18 117/81 97 07/01/19 03:08 36.5 C 89 17 116/81 94 PG Care Time/CCT Total # of Minutes Spent Total Time Spent with Patient: Total time spent is greater than 50% in coordination of care (as documented) at patient's floor/unit and/or counseling patient: Resident Activity Tracking Resident Involvement: Resident Care Provided Care Provided: Adult Hospital Medicine
[2019-07-01] MEDS: WARFARIN SOD 5 MG TAB PO SCH (16:49)
[2019-07-01] MEDS ORDERED: LORazepam 1 MG/2 ML VIAL IV SCH (17:00)
[2019-07-01] MEDS ORDERED: LORazepam 1 MG/2 ML VIAL IV PRN (17:00)
[2019-07-01] MEDS: METHOCARBAMOL 500 MG TABLET PO PRN (22:46)
--- NOTE | 2019-07-01 22:52 | Magnetic Resonance Report ---
MR MRCP CLINICAL HISTORY: Pancreatitis and portal vein thrombosis. Evaluate for malignancy. COMPARISON STUDY: 11/12/2018, CT scan dated 06/28/2019 FINDINGS: A breath-hold MRCP was performed. MIP images were acquired. The gallbladder is surgically absent. There is no intra or extrahepatic biliary ductal dilatation. There is irregular narrowing of the distal common bile duct. There is no pancreatic ductal edema. There is mild enlargement of the pancreatic head. There is peripancreatic edema surrounding the pancr eatic head. There are 2 dominant T2 bright pancreatic head lesions measuring 14 mm and 9 mm respectiv maty. There is equivocal thrombus at the splenoportal venous confluence IMPRESSION: 1. Mild enlargement of the pancreatic head with peripancreatic edema 2. There are 2 dominant T2 bright pancreatic head lesions, possibly representing the sequela of pancr eatitis (intrapancreatic pseudocyst) 3. Irregular narrowing of the distal common bile duct without evidence for proximal ductal dilatation . While this likely is the sequela of pancreatitis, neoplasm cannot be excluded. 4. No evidence of pancreatic ductal dilatation 5. Surgically absent gallbladder 6. Probable small portal vein thrombus Electronically signed by: Willis Virgen M.D. 07/01/2019 10:51 PM
[2019-07-02] MEDS: PROMETHAZINE HCL 25 MG in SODIUM CHLORIDE 0.9% 50 ML IV PRN ×3 (00:13→17:13)
[2019-07-02] MEDS: ONDANSETRON INJ 2 MG/ML 2 ML VIAL IV SCH ×4 (01:00→18:56)
[2019-07-02] MEDS: HYDROmorphone INJ 1 MG/ML SYRINGE IV PRN ×6 (01:02→20:07)
[2019-07-02] MEDS: FOLIC ACID 1 MG TAB PO SCH (08:47)
[2019-07-02] MEDS: FAMOTIDINE 20 MG TAB PO SCH ×2 (08:48→20:50)
[2019-07-02] MEDS: PANTOprazole 40 MG TAB PO SCH ×2 (08:48→20:51)
[2019-07-02] MEDS: THIAMINE HCL 100 MG TAB PO SCH (08:49)
[2019-07-02] MEDS: CYANOCOBALAMIN 500 MCG TABLET (VITAMIN B-12) PO SCH ×2 (08:49→20:52)
[2019-07-02 09:43] LABS: Prothrombin Time 19.6 Seconds (9.0-12.0)
--- NOTE | 2019-07-02 10:46 | Anesthesiology Consultation ---
Date of Service July 02, 2019 Assessment & Plan (1) Encounter for pre-operative examination: Chart Review Chart Review: Acceptable Risk for Surgery and Patient NOT seen in Pre Admission Testing Consults Requested none History Surgery Operation Date: 07/02/19 09:00 Proposed Procedures p Esophagogastroduodenoscopy Dr Otto Willett Height/Weight Height: 5 ft 3 in Weight: 56.6 kg Allergies Allergy/AdvReac Type Severity Reaction Status Date / Time buspirone [From BuSpar] Allergy Severe Unconscious, Verified 07/02/19 11:19 seizures quetiapine [From Seroquel] Allergy Severe Unconscious, Verified 07/02/19 11:19 seizures citalopram [From Celexa] AdvReac Intermediate Vomiting Verified 07/02/19 11:19 fluoxetine [From Prozac] AdvReac Intermediate VIOLENT Verified 07/02/19 11:19 VOMITING morphine AdvReac Intermediate "MAKES ME Verified 07/02/19 11:19 SICK(VOMITING)" vilazodone [From Viibryd] AdvReac Vomiting Verified 07/02/19 11:19 Medications Home Medications Medication Instructions Recorded Confirmed Last Taken methocarbamol 500 mg tablet 500 mg PO BID PRN tab 03/16/19 06/28/19 06/27/19 multivitamin 1 tab PO DAILY 03/18/19 06/28/19 06/27/19 thiamine HCl (vitamin B1) [Vitamin 100 mg PO DAILY 03/18/19 06/28/19 06/27/19 B-1] clindamycin HCl 300 mg capsule 300 mg PO QID #28 cap 03/26/19 06/28/19 06/27/19 sumatriptan 100 mg tablet 100 mg PO UD PRN #30 tab 04/28/19 06/28/19 06/27/19 cyanocobalamin (vit B-12) 250 mcg 250 mcg PO DAILY 06/01/19 06/28/19 06/27/19 tablet magnesium oxide 400 mg (241.3 mg 400 mg PO DAILY tab 06/01/19 06/28/19 06/27/19 magnesium) tablet medroxyprogesterone 150 mg/mL 150 mg IM .COMPLEX ml 06/01/19 06/28/19 06/27/19 intramuscular suspension clonazepam 1 mg tablet 1 mg PO QID PRN #120 tab 06/28/19 Unknown naproxen 500 mg tablet 500 mg PO BID #60 tab 06/28/19 Unknown pantoprazole 40 mg tablet,delayed 40 mg PO BID #180 tab 06/28/19 Unknown release ondansetron 4 mg disintegrating 4 mg PO Q6H #120 tab 06/29/19 Unknown tablet cyanocobalamin (vitamin B-12) 500 mcg PO BID 30 Days #60 tab 07/01/19 Unknown enoxaparin 60 mg SUBCUT BID 5 Days #10 syr 07/01/19 Unknown folic acid 1 mg PO QAM 30 Days #30 tab 07/01/19 Unknown thiamine HCl (vitamin B1) [Vitamin 100 mg PO DAILY 30 Days #30 tab 07/01/19 Unknown B-1] warfarin [Coumadin] 5 mg PO DAILY@1600 30 Days #3 tab 07/01/19 Unknown Active Medications Generic Name Dose Route Start Last Admin Trade Name Freq PRN Reason Stop Dose Admin Acetaminophen 650 mg 06/28/19 13:24 07/02/19 02:32 Tylenol PO 07/28/19 13:23 650 mg Q4H PRN Administration Pain or Fever Clonazepam 1 mg 06/28/19 20:08 07/01/19 17:00 Klonopin PO 07/28/19 20:07 1 mg QID PRN Administration anxiety Cyanocobalamin 500 mcg 06/29/19 10:00 07/02/19 08:49 Vitamin B-12 PO 07/05/19 21:01 500 mcg BID CIRO Administration Enoxaparin Sodium 60 mg 06/28/19 14:00 07/01/19 07:48 Lovenox SQ 07/28/19 13:59 60 mg BID CIRO Administration Famotidine 20 mg 06/30/19 21:00 07/02/19 08:48 Pepcid PO 07/30/19 20:59 20 mg BID CIRO Administration Folic Acid 1 mg 07/01/19 09:00 07/02/19 08:47 Folvite PO 07/31/19 08:59 1 mg QAM CIRO Administration Promethazine HCl 25 mg/ Sodium 51 mls @ 204 mls/hr 06/28/19 17:45 07/02/19 00:40 Chloride IV 07/28/19 17:44 Infused Q4H PRN Infusion Nausea And Vomiting Ondansetron HCl 4 mg 07/01/19 13:00 07/02/19 06:15 Zofran IV 07/31/19 12:59 4 mg Q6H CIRO Administration Pantoprazole Sodium 40 mg 06/28/19 13:24 07/02/19 08:48 Protonix PO 07/28/19 13:23 40 mg BID CIRO Administration Thiamine HCl 100 mg 07/02/19 09:00 07/02/19 08:49 Vitamin B-1 PO 08/01/19 08:59 100 mg DAILY CIRO Administration Warfarin Sodium 5 mg 07/01/19 16:00 07/01/19 16:49 Coumadin PO 07/31/19 15:59 5 mg DAILY@1600 CIRO Administration Past Medical History Medical History Back pain, chronic (Acute) Chronic neck pain (Acute) Depression with anxiety (Chronic) Insomnia (Acute) PTSD (post-traumatic stress disorder) (Acute) Migraines (Chronic) Hiatal hernia (Chronic) Acute gallstone pancreatitis Peptic ulcer disease 2 YEARS AGO DX Acne GERD (gastroesophageal reflux disease) 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) Liver enzyme elevation Pancreatitis alcoholic Panic attacks Exercise / Class Metabolic Activity II 4-5 Yardwork/Stairs/Walk up hill Past Family History Family History Father Family history of diabetes mellitus Myocardial infarction Stroke Hypertension Grandfather (Maternal) Family history of diabetes mellitus Grandmother (Maternal) Family history of diabetes mellitus Hypertension Cancer Mother Hypothyroidism Grandfather Cancer Heart problem Past Surgical History Surgical History "LAST APRIL" History of cholecystectomy History of esophagogastroduodenoscopy (EGD) History of lumpectomy of right breast BENIGN History of tooth extraction Past Anesthesia History No Hx of Anesthesia Complications and Difficult Airway History of PONV No Hx of PONV and No Hx of Motion Sickness Social History Smoking Status: Current every day smoker tobacco type: cigarettes Smoking cigarettes per day: 7 Do You Dip or Chew Tobacco: No Hx Alcohol Use: Yes Alcohol type: wine alcohol intake frequency: a few times a month Alcohol Intake Frequency Comment: last drink a few days ago per patient history Hx Substance Use: No substance use type: prescription drug Substance Use Type Other:: medically prescribed Last Used Substance: Unknown Physical Exam Vital Signs Last Vital Signs Temp 36.9 C 07/02/19 06:47 Pulse 80 07/02/19 06:47 Resp 20 07/02/19 06:47 BP 105/72 07/02/19 06:47 Pulse Ox 96 07/02/19 06:47 Testing Laboratory Results 07/01/19 07:10 07/01/19 07:10 PT 19.6 Seconds (9.0-12.0) H 07/02/19 09:03 INR 2.0 (0.9-1.1) H 07/02/19 09:03 APTT 25.4 Seconds (21.0-31.0) 06/28/19 09:37 Urine Color Yellow 06/28/19 09:37 Urine Appearance Clear (Clear) 06/28/19 09:37 Urine pH 7.0 (4.5-7.5) 06/28/19 09:37 Ur Specific Hayden 1.004 (1.000-1.030) 06/28/19 09:37 Urine Protein Negative (Negative) 06/28/19 09:37 Urine Glucose (UA) Negative (Negative) 06/28/19 09:37 Urine Ketones Negative (Negative) 06/28/19 09:37 Urine Nitrite Negative (Negative) 06/28/19 09:37 Ur Leukocyte Esterase Negative (Negative) 06/28/19 09:37 Urine RBC 0-4 /hpf (0-4) 06/28/19 09:37 Urine WBC 5-10 /hpf (0-5) H 06/28/19 09:37 Ur Epithelial Cells 10-20 /lpf (0-5) H 06/28/19 09:37 06/28/19 09:37 Urine Culture - Final Urine,Clean Catch Three types of organisms present, all low counts probable skin abhishek. No further identifications or sensitivities to follow. Electrocardiogram Date: 06/28/19 Findings: + NSR @ (92) Normal sinus rhythm Nonspecific T wave abnormality When compared with ECG of 15-MAR-2019 14:11, No significant change Confirmed by Damion Gallardo ([id number]) on 06/28/2019 7:00:23 PM Chest X-Ray Date: 06/28/19 XR chest 1V portable CLINICAL HISTORY: Chest pain. COMPARISON STUDY: Chest radiograph March 15, 2019. FINDINGS: Lung volumes are normal. Lungs are clear. There is no pneumothorax or pleural effusion. Cardiac size is normal. Mediastinal contours are normal. There is no evidence for pulmonary edema. IMPRESSION: No acute cardiopulmonary findings.
--- NOTE | 2019-07-02 11:12 | History & Physical Report ---
Date of Service July 02, 2019 History of Present Illness Primary Care Provider: Norberto Harrington DO Portal vein thrombosis, abd pain CV: RRR Resp: CTA Abd: soft, mild tendrness epigastrium Extrem: no edema A/P: Plan EGD for variceal screen, r/o PUD Allergies Allergy/AdvReac Type Severity Reaction Status Date / Time buspirone [From BuSpar] Allergy Severe Unconscious, Verified 06/28/19 09:26 seizures quetiapine [From Seroquel] Allergy Severe Unconscious, Verified 06/28/19 09:26 seizures citalopram [From Celexa] AdvReac Intermediate Vomiting Verified 06/28/19 09:26 fluoxetine [From Prozac] AdvReac Intermediate VIOLENT Verified 06/28/19 09:26 VOMITING morphine AdvReac Intermediate "MAKES ME Verified 06/28/19 09:26 SICK(VOMITING)" vilazodone [From Viibryd] AdvReac Vomiting Verified 06/28/19 09:26 Home Medications Home Medications Medication Instructions Recorded Confirmed Type methocarbamol 500 mg tablet 500 mg PO BID PRN tab 03/16/19 06/28/19 History multivitamin 1 tab PO DAILY 03/18/19 06/28/19 History thiamine HCl (vitamin B1) [Vitamin 100 mg PO DAILY 03/18/19 06/28/19 History B-1] clindamycin HCl 300 mg capsule 300 mg PO QID #28 cap 03/26/19 06/28/19 Rx sumatriptan 100 mg tablet 100 mg PO UD PRN #30 tab 04/28/19 06/28/19 Rx cyanocobalamin (vit B-12) 250 mcg 250 mcg PO DAILY 06/01/19 06/28/19 History tablet magnesium oxide 400 mg (241.3 mg 400 mg PO DAILY tab 06/01/19 06/28/19 History magnesium) tablet medroxyprogesterone 150 mg/mL 150 mg IM .COMPLEX ml 06/01/19 06/28/19 History intramuscular suspension clonazepam 1 mg tablet 1 mg PO QID PRN #120 tab 06/28/19 Rx naproxen 500 mg tablet 500 mg PO BID #60 tab 06/28/19 Rx pantoprazole 40 mg tablet,delayed 40 mg PO BID #180 tab 06/28/19 Rx release ondansetron 4 mg disintegrating 4 mg PO Q6H #120 tab 06/29/19 Rx tablet cyanocobalamin (vitamin B-12) 500 mcg PO BID 30 Days #60 tab 07/01/19 Rx enoxaparin 60 mg SUBCUT BID 5 Days #10 syr 07/01/19 Rx folic acid 1 mg PO QAM 30 Days #30 tab 07/01/19 Rx thiamine HCl (vitamin B1) [Vitamin 100 mg PO DAILY 30 Days #30 tab 07/01/19 Rx B-1] warfarin [Coumadin] 5 mg PO DAILY@1600 30 Days #3 tab 07/01/19 Rx Past Med/Surg History Medical History Back pain, chronic (Acute) Chronic neck pain (Acute) Depression with anxiety (Chronic) Insomnia (Acute) PTSD (post-traumatic stress disorder) (Acute) Migraines (Chronic) Hiatal hernia (Chronic) Acute gallstone pancreatitis Peptic ulcer disease 2 YEARS AGO DX Acne GERD (gastroesophageal reflux disease) 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) Liver enzyme elevation Pancreatitis alcoholic Panic attacks Surgical History "LAST APRIL" History of cholecystectomy History of esophagogastroduodenoscopy (EGD) History of lumpectomy of right breast BENIGN History of tooth extraction Family History Father Family history of diabetes mellitus Myocardial infarction Stroke Hypertension Grandfather (Maternal) Family history of diabetes mellitus Grandmother (Maternal) Family history of diabetes mellitus Hypertension Cancer Mother Hypothyroidism Grandfather Cancer Heart problem Social History Preferred Language: Syriac Communication Ability: Effective Laboratory Miller Required: No Beliefs That Will Affect Care: None marital status: Single Current Living Situation: Parent current occupational status: unemployed Feels Safe at Home: Yes Smoking Status: Current every day smoker Tobacco Type: cigarettes ; Cigarettes Per Day: 7 ; Second Hand Exposure: No ; Hx Alcohol Use: Yes Alcohol type: wine Hx Substance Use: No Dental Care, Regularly: Yes Physical Activity Frequency: Does not Exercise Seatbelt Use: always Sunscreen Use: Yes Results & Data Vital Signs (Past 12 Hours) Vital Signs Temp Pulse Resp BP BP Pulse Ox 07/02/19 06:47 36.9 C 80 20 105/72 96 07/01/19 23:53 36.4 C L 73 20 104/71 98 Code Status & VTE Plan VTE Prophylaxis Plan VTE Prophylaxis will be ordered: Yes
[2019-07-02] MEDS ORDERED: MIDAZOLAM HCL 1 MG/ML 2ML VIAL ONE (11:15)
[2019-07-02] MEDS ORDERED: LIDOCAINE HCL 2% 2 ML VIAL/AMP(20MG/ML) INFIL ONE (11:16)
[2019-07-02] MEDS ORDERED: PROPOFOL IV EMULSION 10 MG/ML 20 ML VIAL IV ONE (11:16)
[2019-07-02] MEDS ORDERED: ONDANSETRON INJ 2 MG/ML 2 ML VIAL ONE (11:16)
--- NOTE | 2019-07-02 11:46 | GI REPORT ---
Patient Name: Nadja Pete Procedure Date: 07/02/2019 11:24 AM Date of : 1980 Admit Type: Inpatient Age: 38 Gender: Female Attending MD: Gala Willett MD Procedure: Upper GI endoscopy Providers: Gala Willett MD Referring MD: Narinder Calhoun Indications: Portal hypertension rule out esophageal varices Medicines: See the Anesthesia note for documentation of the administered medications Complications: No immediate complications. Estimated Blood Loss: Estimated blood loss: none. Procedure: Pre-Anesthesia Assessment: - ASA Grade Assessment: III - A patient with severe systemic disease. After obtaining informed consent, the endoscope was passed under direct vision. Throughout the procedure, the patient's blood pressure, pulse, and oxygen saturations were monitored continuously. The Endoscope was introduced through the mouth, and advanced to the fourth part of duodenum. The upper GI endoscopy was accomplished without difficulty. The patient tolerated the procedure well. Findings: There was a faint GE junction ring; otherwise the examined esophagus was normal. Mild edema of body of stomach, possibly consistent with portal gastropathy. The remainder of the stomach was normal. There were no gastric varices. The duodenum was normal. The ampulla appeared grossly normal when evaluated with a forward viewing scope. The duodenum was deeply intubated; and there was no obstruction or duodenitis. Impression: No esophageal or gastric varices. No gastric or duodenal ulcer. No evidence of gastric outlet obstruction or duodenitis. Recommendation: - Discharge patient to floor. - Resume anticoagulation. - Diet as tolerated. - [facility]. Mick Whitmore MD 07/02/2019 11:45:44 AM This report has been signed electronically. Note Initiated On: 07/02/2019 11:24 AM Number of Addenda: 0 I attest to the content of the Intraoperative Record and orders documented therein, exceptions below {[id number]}
--- NOTE | 2019-07-02 12:46 | Gastroenterology Progress Note ---
Date of Service July 02, 2019 Subjective Pt continues to have nausea and subxiphoid pain. On exam, she remains anxious appearing. She has tenderness with light palpation in epigastrium. Labs reviewed MRI reviewed with radiologist -- there is no apparent stricture of PD and no Fluid collection do not appear connected to the main PD, and there is no ductal disruption. CBD is focally narrowed. A/P: Abdominal pain CT showing pseudocyst/WOPN in head x 2, imaging suggests groove pancreatitis/pancreatitis of head No PD dilation PVT just above confluence of PVT and splenic vein Unremarkable EGD without varices, GOO - DDX persistent nausea - related to chronic pain, functional d/o, cannabinoid hyperemesis, gastric emptying delay. Agree with PPI BID. Will try to advance diet and begin scheduled Reglan at low dose; will monitor for possible worsening anxiety/depression. if she fails reglan, would consider Remeron. - Regarding PVT - presumably related to pancreatitis. As mentioned yesterday, would consider w/u MPS and PNH, but will defer to heme. Agree with anti-coag. - Regarding alk phos elevation - likely related to CBD compression by chornic panc. I was concerned about portal cholangiopathy, but this seems much less likely in absence of other ssx of portal HTN. Her bili is normal; no need for intervention. Results & Data Vital Signs (Past 12 Hours) Vital Signs Temp Pulse Pulse Resp BP BP Pulse Ox 07/02/19 12:17 73 20 123/85 97 07/02/19 12:04 75 20 112/76 95 07/02/19 11:52 87 16 97/55 L 96 07/02/19 11:09 37.1 C 92 H 92 H 18 127/74 95 07/02/19 06:47 36.9 C 80 20 105/72 96
--- NOTE | 2019-07-02 14:05 | Anesthesiology Progress Note ---
Date of Service July 02, 2019 Anesthesia Post Procedure Vital Signs Vital Signs: Temp Pulse Pulse Resp BP BP Pulse Ox 07/02/19 12:17 73 20 123/85 97 07/02/19 12:04 75 20 112/76 95 07/02/19 11:52 87 16 97/55 L 96 07/02/19 11:09 37.1 C 92 H 92 H 18 127/74 95 07/02/19 06:47 36.9 C 80 20 105/72 96 07/01/19 23:53 36.4 C L 73 20 104/71 98 07/01/19 15:16 36.4 C L 96 H 18 105/76 97 Pain Intensity Right Upper Abdomen: Pain Intensity: 4 Bilateral Back: Pain Intensity: 5 Medial Generalized: Pain Intensity: 5 Transfer of Care Handoff Completed per policy Notes Mental Status: alert / awake / arousable and participated in evaluation Patient Amnestic to Procedure: Yes Nausea / Vomiting: adequately controlled Pain: adequately controlled Airway Patency, RR, SpO2: stable & adequate BP & HR: stable & adequate Hydration State: stable & adequate Anesthetic Complications: no major complications apparent and Pt Satisfied with anesthetic care
--- NOTE | 2019-07-02 16:04 | Family Medicine Progress Note ---
Date of Service July 02, 2019 Assessment & Plan (1) Portal vein thrombosis: Gely is a 38-year-old female with a past medical history of migraines, PTSD, gallstone pancreatitis, alcohol abuse, and anxiety who presented with several days of severe abdominal pain and decreased appetite into has been found to have a portal vein thrombosis on admission. Portal vein thrombosis CTA/P: Mild duodenal infiltration, nonocclusive thrombus of the main portal vein new since 11/12/2018, 2 small cystic pancreatic lesions new since 11/12/2018 suggestive of intrapancreatic pseudocysts. Mild mass-effect on portal splenic confluence. Dilation of common bile duct to 8 mm. Heme-onc consulted. Suspect due to compression, family history of thrombosis suggests possible genetic coagulopathy. Therapeutic Lovenox 1mpk twice daily, bridging to warfarin. D/c Lovenox 07/03/2019. - Warfarin 5mg PO daily Family history of coagulopathy. Recommend screening for factor V Leiden, prothrombin, and antiphospholipid antibodies per heme-onc. May screen for protein C, protein S, and Antithrombin III once she has completed and come off anticoagulation. Appreciate recommendations. Abdominal pain 2/2 Chronic Pancreatitis & PVT Ultrasound shows fatty liver changes with mild cirrhosis CT results as above Pain control with APAP 650 mg p.o. every 4 hours (no recent active alcohol use), received 1 dose of Toradol in the ED. Hydromorphone 0.5 mg IV ordered for breakthrough - Zofran CIRO for nausea/phenergan PRN. - Persistent epigastric pain limiting PO intake with hx of hematemesis and high NSAID use. GI Consulted. - EGD shows no ulceration, no gastritis. MRCP consistent with chronic pancreatitis - Creon 3caps OPENED with meals History of alcohol abuse -No history of withdrawal symptoms, reported last drink several days prior to admission. 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 Protonix 40 mg p.o. twice daily, famotidine 20 mg IV twice daily PTSD/anxiety Pt endorses high psychosocial stress Pt requested to speak with psychiatry on admission admitted, on further discussion with care team would like to followup with her outpatient provider and declines to be seen by inpt psych at this time. - Added remeron daily. - Pt allergic to buspar Migraines Continue IRON INSTALLER sumatriptan as needed Asymptomatic Bacteruria UA suggestive of infection UC ng - No abx at this time Hypomagnesemia, acute hypokalemia, improved MG 1.6 on admit, received 1 g magnesium in ED BMP daily FEN GI: Regular Diet DVT prophylaxis: Warfarin, Lovenox as above CODE STATUS: Full code Disposition: Ongoing Supervising Physician Co-Signing Physician Notes I personally examined the patient and verified all hammonds points of history and exam, discussed case, and agree with decision making with Dr Myers. Nauseated not able to eat well. Extremely anxious. Case discussed with GI, input greatly appreciated. Vitals noted, in general she is awake and alert and very anxious. HEENT normoephalic atraumatic mucous members moist. Breathing unlabored no accessory muscle use good effort. Skin shows no rashes no pallor or icterus. Portal vein thrombosislikely relates to distorted anatomy of the portal venous system as it goes around her pancreatic cysts. Today will be the last day of overlap with Lovenox to Coumadin, her INR is therapeutic. Continue Coumadin and follow INR. Epigastric pain and nauseaseems like it probably relates to the portal vein thrombosis as well as chronic pancreatitis as well as her severe anxiety. For the portal vein thrombosis she is now adequately anticoagulated, but symptoms will take a while, for the chronic pancreatitis, we have recommended alcohol cessation and after discussion with GI will initiate pancreatic enzyme supplementation in the hopes that it may help her symptoms some. For the anxiety, see below Anxiety/PTSDextensive discussions, tried to start to change her perspective on feelings of panic, as right now she seems to mostly try to run from or suppress themand this leads to her being on a never-ending cycle of looking to find a medicine to quiet her anxiety sensation. We discussed the nature of panic attacks, and the fact that while they feel like they will kill you they will not, and that it would be okay to not have to constantly suppress the symptomsespecially given that that would then leave her at high risk for alcohol abuse relapse after she is out of the hospital. Further we discussed the up cycle that often happens with benzodiazepines followed by physical dependence, followed by worsening anxiety making benzodiazepines only generally an acceptable option for extremely intermittent rare use. We discussed the right now certainly would not be the right time to start to wean her current benzos. Will give trial of Remeron given that it may help some, and hopefully will help with her anxiety some. Definitely will need extensive outpatient follow-up. Otherwise as above Subjective Gely is seen at the bedside today. She reports she is extremely anxious, and has had abdominal pain difficult to control with Dilaudid and Phenergan. She reports that during her MRI last night she did not notice any unusual abdominal pain. She denies fever, chills, sweats. Continues to endorse intermittent stomach pain and difficulty tolerating p.o. Redirects conversation to Phenergan and Dilaudid dosing regimens, discussed anxiety at length and that her pain was likely a combination of from her pancreatitis, venous thrombosis, and also anxiety but that regular use of Phenergan and benzodiazepines are likely to worsen her anxiety in the long run despite providing short-term relief. Review of Systems Review of Systems: Constitutional: Denies fever, chills. Endorses anxiety Eyes: Denies vision change ENT: Denies ear pain, sore throat, sinus pain Cardiovascular: Denies Chest pain, chest pressure, extremely swollen Respiratory: Denies shortness of breath, cough, sputum production, difficulty breathing Gastrointestinal: Endorses abdominal pain, as noted in subjective. Endorses nausea. Genitourinary: Denies dysuria/urinary symptoms Integumentary:Denies rash, lesions, bruising Neurological: Denies headache. denies numbness, tingling, focal weakness Physical Exam Physical Exam: General: A&Ox3. Appears anxious, tearful. Cooperative. Follows commands. No tremors. Not responding to internal stimuli. HEENT: Atraumatic, normocephalic. Pupils equal and reactive to light and accommodation. Visual acuity grossly intact. Pulm: CTAB A&P. -wheezes, -rales, -rhonchi. Symmetrical chest rise. No increase work of breathing. No respiratory distress. Cardiac: RRR, -mrg. Radial pulses intact and symmetrical. Abdominal: Epigastric tenderness to palpation. Nondistended, soft. No rebound tenderness. Nonrigid. Aparicio's negative. Results & Data Vital Signs (Past 12 Hours) Vital Signs Temp Pulse Pulse Resp BP BP Pulse Ox 07/02/19 15:49 36.5 C 71 18 114/50 L 93 07/02/19 12:17 73 20 123/85 97 07/02/19 12:04 75 20 112/76 95 07/02/19 11:52 87 16 97/55 L 96 07/02/19 11:09 37.1 C 92 H 92 H 18 127/74 95 07/02/19 06:47 36.9 C 80 20 105/72 96 PG Care Time/CCT Total # of Minutes Spent Total Time Spent with Patient: Total time spent is greater than 50% in coordination of care (as documented) at patient's floor/unit and/or counseling patient: Resident Activity Tracking Resident Involvement: Resident Care Provided Care Provided: Adult Hospital Medicine
[2019-07-02] MEDS: PANCREAZE (LIPASE 10,500U) CAP PO SCH (17:12)
[2019-07-02] MEDS: WARFARIN SOD 5 MG TAB PO SCH (17:12)
[2019-07-02] MEDS: METOCLOPRAMIDE HCL 5 MG TABLET PO SCH (20:49)
[2019-07-02] MEDS ORDERED: MIRTAZAPINE TAB 15 MG TAB PO SCH (21:00)
[2019-07-02] MEDS: ENOXAPARIN INJ 60 MG/0.6 ML SYR SQ SCH (22:07)
[2019-07-03] MEDS: ONDANSETRON INJ 2 MG/ML 2 ML VIAL IV SCH ×2 (00:36→06:40)
[2019-07-03] MEDS: HYDROmorphone INJ 1 MG/ML SYRINGE IV PRN ×3 (00:37→07:37)
[2019-07-03] MEDS: clonazePAM 1 MG TAB PO PRN (06:40)
[2019-07-03] MEDS: METHOCARBAMOL 500 MG TABLET PO PRN (06:49)
[2019-07-03] MEDS: THIAMINE HCL 100 MG TAB PO SCH (07:38)
[2019-07-03] MEDS: FOLIC ACID 1 MG TAB PO SCH (07:38)
[2019-07-03] MEDS: CYANOCOBALAMIN 500 MCG TABLET (VITAMIN B-12) PO SCH (07:38)
[2019-07-03] MEDS: METOCLOPRAMIDE HCL 5 MG TABLET PO SCH (07:38)
[2019-07-03] MEDS: PANTOprazole 40 MG TAB PO SCH (07:38)
[2019-07-03] MEDS: FAMOTIDINE 20 MG TAB PO SCH (07:39)
[2019-07-03] MEDS: PANCREAZE (LIPASE 10,500U) CAP PO SCH (07:39)
[2019-07-03 09:15] LABS: INR 2.2 (0.9-1.1); Prothrombin Time 21.4 Seconds (9.0-12.0)
--- NOTE | 2019-07-03 09:57 | Discharge Summary ---
Date of Service July 03, 2019 Admission HPI Per Admitting Provider Patient is a 38 years old female with past medical history of migraine, posttraumatic stress disorder, hiatal hernia, gallstone pancreatitis, alcohol abuse, GERD, acne vulgaris, who presents with severe abdominal pain that started this morning and it was worsening. Patient is unable to eat anything to have dry heaves. She is not vomiting in the present. Patient says she had one bowel movement this morning that it was diarrhea but normal in color patient reports there is no blood in there. Patient says she feels miserable. 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 She did mention that she drank a lot hard liquors in the past week, but did not drink anything in the past few days. Patient denies fever chills headache, chest pain, frequency, urgency, shortness of breath, hematuria, hematemesis, hematochezia, hemoptysis. Labs are reviewed: WBC 5.93, hemoglobin 16, hematocrit 47.7, platelets 349, PT 10.9, INR 1.1, APTT 25.4. Sodium 140, potassium 2.9, chloride 101, BUN 5, creatinine 0.66 EGFR one 1.3, glucose 130, magnesium 1.6, AST 64, ALT 69, alkaline phosphatase 329, troponin 0 0.015, beta- hCG negative, lipase 238. Patient has 5-10 white blood cells in urine, 2+ bacteria negative, negative nitrates, negative leukocyte esterase. Chest x- rays: No cardiopulmonary finding. Abdominal CT: Mild infiltration adjacent to the duodenum, a nonspecific finding which could be correlated with lipase level. Interval development of nonocclusive thrombus with the main portal vein since CT scan of November 12, 2018. 2 small cystic pancreatic lesion. New since CT of November 12, 2018. These favor intra-pancreatic pseudocysts. Mild mass affect upon the portal splenic confluence. A an underlying neoplasm is considered unlikely however short-term imaging follow-up or ultrasound is recommended. Mild dilatation of the common bile duct measuring 8 mm. Decision was made to admit patient for observation on telemetry to treat portal vein thrombosis with anticoagulation. Admission Exam Per Admitting Provider Constitutional: WD/WN, vitals as above well developed and + ill appearing Eyes: PERRL, conjunctivae normal, anicteric sclerae ENMT: external ear and nose normal, oropharynx normal Neck: trachea midline, no thyromegaly Respiratory: normal respiratory effort, lungs clear to auscultation Cardiovascular: RRR, no murmur, no edema Chest (Breasts): normal inspection/palpation of breasts Gastrointestinal (Abdomen): Inspection/Auscultation: abdomen normal to inspection and normal bowel sounds Percussion/Palpation: + abdomen tender, abdomen soft and normal to percussion Musculoskeletal: no cyanosis or clubbing, extremities motor strength 5/5 Skin: no rashes, warm and dry Neurologic: patellar DTR's 2+ bilat, sensation intact Psychiatric: A+Ox3, euthymic affect Lymphatic: no cervical or axillary lymphadenopathy Principal Diagnosis Portal vein thrombosis Pancreatitis Discharge Exam General: Alert, oriented. No acute distress resting comfortably in bed. HEENT: NC/AT, PERRLA, EOMI, oropharynx moist. Chest: Nontender to palpation. CV: RRR, Normal s1, s2. No murmurs appreciated Resp: Breath sounds clear bilaterally, no increased effort of breathing. No crackles/rhonchi/rales. Abdomen: BS+. Soft, nontender, nondistended. No guarding. No organomegaly appreciated. Extremities: No edema in lower extremities bilaterally. No calf tenderness bilaterally. Discharge Data Allergies Allergy/AdvReac Type Severity Reaction Status Date / Time buspirone [From BuSpar] Allergy Severe Unconscious, Verified 07/02/19 11:19 seizures quetiapine [From Seroquel] Allergy Severe Unconscious, Verified 07/02/19 11:19 seizures citalopram [From Celexa] AdvReac Intermediate Vomiting Verified 07/02/19 11:19 fluoxetine [From Prozac] AdvReac Intermediate VIOLENT Verified 07/02/19 11:19 VOMITING morphine AdvReac Intermediate "MAKES ME Verified 07/02/19 11:19 SICK(VOMITING)" vilazodone [From Viibryd] AdvReac Vomiting Verified 07/02/19 11:19 Consultations 06/28/19 11:36 ED Decision to Admit Stat 06/28/19 13:24 Consult Case Management - Discharge Planning Routine 06/28/19 13:33 Consult Hematology Routine 06/29/19 10:24 Consult Psychiatry Routine 07/01/19 11:59 Consult Gastroenterology Routine Procedures Performed Operation Date: 07/02/19 09:00 Actual Procedures p Esophagogastroduodenoscopy - Gala Willett Ordered Studies 06/28/19 09:39 CT abd pelvis IV con only Stat 06/29/19 01:54 US liver Routine 07/01/19 15:34 MR MRCP Routine Hospital Course (1) Portal vein thrombosis: Gely is a 38-year-old female with a PMHx of alcohol abuse, gallstone pancreatitis, migraines, PTSD and anxiety who presented with several days of severe abdominal pain and decreased appetite. Was admitted on on Jun 28 for portal vein thrombosis and discharged on Jul 03. Portal vein thrombosis CTA/P: Mild duodenal infiltration, nonocclusive thrombus of the main portal vein new since 11/12/2018, 2 small cystic pancreatic lesions new since 11/12/2018 suggestive of intrapancreatic pseudocysts. Mild mass-effect on portal splenic confluence. Dilation of common bile duct to 8 mm. Heme-onc consulted. Suspect due to compression, family history of thrombosis suggests possible genetic coagulopathy. Therapeutic Lovenox 1mg/kg twice daily while hospitalized and bridging to warfarin. D/c Lovenox 07/03/2019. - Warfarin 5mg PO daily, also after discharge. Close PCP and anticoagulation clinic followup advised-appts scheduled after discharge. Family history of coagulopathy. Recommend screening for factor V Leiden, prothrombin, and antiphospholipid antibodies per heme-onc. May screen for prote in C, protein S, and Antithrombin III once she has completed and come off anticoagulation. Abdominal pain 2/2 Chronic Pancreatitis & Portal vein thrombosis Ultrasound shows fatty liver changes with mild cirrhosis CT results as above Pain control with APAP 650 mg p.o. every 4 hours (no recent active alcohol use), received 1 dose of Toradol in the ED. Hydromorphone 0.5 mg IV ordered for breakthrough - Zofran CIRO for nausea/phenergan PRN. - Persistent epigastric pain limiting PO intake with hx of hematemesis and high NSAID use. GI Consulted. - EGD shows no ulceration, no gastritis. MRCP consistent with chronic pancreatitis - Creon 3caps OPENED with meals-discharged with prescription. -Was able to tolerate meals on discharge with mild nausea. History of alcohol abuse -No history of withdrawal symptoms, reported last drink several days prior to admission. 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 Protonix 40 mg p.o. twice daily, famotidine 20 mg IV twice daily -discharged with thiamine, folic acid and Vit b12 therapy PTSD/anxiety Pt endorses high psychosocial stress Pt requested to speak with psychiatry on admission admitted, on further discussion with care team would like to followup with her outpatient provider and declines to be seen by inpt psych at this time. - Added remeron daily while hospitalized- and discharged with it as well. - Pt allergic to buspar Migraines Continue RELATIONSHIP SPECIALIST sumatriptan as needed Asymptomatic Bacteruria UA suggestive of infection UC ng - No abx at this time Hypomagnesemia, acute hypokalemia -Resolved on discharge. Total Time Total Time Spent Total Time Spent (In Minutes): 30 Discharge Plan Discharge Items Patient Disposition: Home - Self-Care Reason For Visit: ABDOMINAL PAIN, PORTAL VEIN THROMBOSIS Discharge Diagnosis: Portal Vein Thrombosis Activity: Per Instructions section Non-emergency contact: Primary Care Provider and Cutter Grinder Operator Call non-emergency contact if: you have any medication questions, your symptoms worsen, your pain is not controlled, your pain is worsening, your pain is unusual for you, your pain is concerning for you and you have a fever Follow-up/Referrals: [facility] [Provider Group] - 07/05/19 8:45 am (Please, follow up at [facility] on FridayJuly 05 at 9:00 am (arrive 8:45 am). *The clinic is located in the rear of this [facility]. Park BEHIND the hospital in [address] and enter via [facility]. If you need to change this appointment, call the clinic at [phone].) Norberto Harrington, DO [Primary Care Provider] - 07/06/19 9:15 am (Please, follow up with Dr. Norberto Harrington on FridayJuly 06 at 9:15 am. *If you need to change this appointment, call the office at [phone]. ) Diet: Regular Addtl Attending Provider Instructions: You were seen in the hospital for abdominal pain. You were found to have a portal vein thrombosis, a type of blood clot. You have been treated with a blood thinner, and will need to remain on a blood thinner for at least 3-6 months. You were clinically improving at time of discharge, but will require close followup with your primary care provider. You will also need the thinness of your blood to be checked and have your blood thinner adjusted as needed at regular followup appointments, as noted below. You have had medication changes as noted below. You have been prescribed a blood thinner, warfarin. Please take warfarin 5mg daily in the afternoon. This medication is a blood thinner. You will bleed more easily while on this medication, if you get a small cut apply direct pressure for at least 10 minutes WITHOUT checking the wound (checking to early can cause the clot to break off and restart from scratch). If you have persistent bleeding or more than small bleeding please call you primary care physician, or call 911 for transport to the emergency department if you are concerned. Your dose of warfarin will need to be adjusted. Please followup with the anticoagulation clinic as below for blood checks and medication adjustments. You're scheduled with the anticoagulation clinic, starting friday, to keep a close follow up of your PT/INR (how thin your blood is on the coumadin) - please keep all of these appointments so that the coumadin can be as closely regulated as possible (which minimizes the risk of progressing the clot or of having higher risk of bleeding). To clarify - when Dr Myers was first putting together your discharge instructions and prescriptions, we were going to still need a period of overlap where you would have been on both the coumadin (which you'll still be taking) and the enoxaparin (the injectable blood thinner we were using until your blood was thin enough on the coumadin). your blood is now thin enough that the enoxaparin is not needed; we removed it from your med list, but when you get to the pharmacy they may still have it listed with you -- let them know that you do not need it//don't picking table worker that particular medicine. You have been prescribed vitamin B12, thiamine, and folic acid. Please take vitamin B12 500 mcg twice daily, folic acid 1 mg daily, and thiamine 100 mg daily. You have had a followup appointment scheduled for you with your primary care physician, Dr. Harrington, on 07/06/2019 at 9:15 AM. If you need to cancel or change this appointment, please call his office at [phone]. You have had a followup appointment scheduled for you with the anticoagulation clinic on 07/05/2019 at 8:45am. They will help you adjust your warfarin and check your blood thinness. If you need to cancel or change this appointment, please call their office at [phone]. We'll also want you closely following with [facility] throughout this situation. Please call this coming week to get scheduled. If you develop any fevers, chills, sweats, lightheadedness, dizziness, chest pain, chest pressure, shortness of breath, difficulty breathing, bleeding, worsening abdominal pain, bloody vomit, bloody or black bowel movements, or other new or concerning symptoms please contact your primary care physician at the number above, or call 911 for transport and evaluation in the emergency department if you are concerned. We've started pancreatic enzyme supplements to try to help with some of the nausea/food intolerance - take them at each meal (before you eat) and to try to reduce the pain, we'll have you open the capsule before taking it, as taking it "uncoated" may have a better chance at reducing the pain. We've prescribed phenergan to take as needed for nausea, please be careful when you take it as it certainly can cause sedation (ie definitely don't drive when you take it) We're giving trial to the remeron to try to help your appetite some, as well as hopefully help quell the anxiety, even a little. We definitely support you getting back involved with counselling for your anxiety. As we discussed, while it's hard to do, start to try to work on not feeling like you have to suppress the anxious feelings; in the long run you'll be able to get ahead of things more if you work through the feelings (although, admittedly, that can be quite painful; but if your main strategy for the anxiety is to suppress it at all costs, you'll be really unlikely to ever truly improve things. also, as we discussed, try to limit the use of the clonazepam - remember the analogy we made about coffee and not being a morning person --> once somebody's body "gets used" to medicines like clonazepam in their system, it can be truly impossible to distinguish if you feel anxious because you feel anxious, or if you feel anxious because your brain cells are starting to show subtle hints of clonazepam withdrawal) Pending Studies at Discharge: Yes Studies:: INR Checks Stand-Alone Forms: Call Back Authorization, [facility] Medications and DC Order Prescriptions: New thiamine HCl (vitamin B1) [Vitamin B-1] 100 mg Tablet 100 mg PO DAILY 30 Days Qty: 30 RF: 1 cyanocobalamin (vitamin B-12) 500 mcg Tablet 500 mcg PO BID 30 Days Qty: 60 RF: 1 warfarin [Coumadin] 5 mg Tablet 5 mg PO DAILY@1600 30 Days Qty: 3 RF: 1 folic acid 1 mg Tablet 1 mg PO QAM 30 Days Qty: 30 RF: 1 promethazine 25 mg tablet 25 mg PO TID PRN (Reason: nausea) Qty: 30 RF: 0 mirtazapine 15 mg Tablet 15 mg PO HS Qty: 30 RF: 0 Creon 36,000-114,000- 180,000 unit Capsule,Delayed Release(Dr/Ec) 3 cap PO AC Qty: 270 RF: 0 Continued sumatriptan succinate [Imitrex] 100 mg tablet 100 mg PO UD PRN (Reason: Migraine Headache) Qty: 30 RF: 5 naproxen 500 mg tablet 500 mg PO BID Qty: 60 RF: 2 clonazepam 1 mg tablet 1 mg PO QID PRN (Reason: anxiety) Qty: 120 RF: 0 pantoprazole [Protonix] 40 mg tablet,delayed release (DR/EC) 40 mg PO BID Qty: 180 RF: 0 ondansetron 4 mg tablet,disintegrating 4 mg PO Q6H Qty: 120 RF: 1 Vitamin B-12 250 mcg tablet 250 mcg PO DAILY RF: 0 magnesium oxide 400 mg (241.3 mg magnesium) tablet 400 mg PO DAILY RF: 0 medroxyprogesterone 150 mg/mL suspension 150 mg IM .COMPLEX RF: 0 methocarbamol 500 mg tablet 500 mg PO BID PRN (Reason: PAIN) RF: 0 multivitamin Tablet 1 tab PO DAILY RF: 0 thiamine HCl (vitamin B1) [Vitamin B-1] 100 mg Tablet 100 mg PO DAILY RF: 0 Discontinued clindamycin HCl 300 mg capsule 300 mg PO QID Qty: 28 RF: 0 Discharge Orders: Discharge Order (Routine); Ordered 07/03/19 Ordered By: Narinder Calhoun Admission Data Admit Date/Time: 06/29/19 15:26 Attending Provider: Narinder Calhoun Admit Provider: Kori Anderson Primary Care Provider: Norberto Harrington. Other Providers: Kori Anderson ; Rey Garcia ; Gil Obando I ; Gala Willett Other Interventions: Discharge Summary Assessment (RN) Last Done: 07/03/19 11:11 DC Date/Time DO NOT enter until pt leaves facility: 07/03/19 11:28 Supervising Physician Co-Signing Physician Notes I personally examined the patient and verified all hammonds points of history and exam, discussed case, and agree with decision making with Dr Carbajal. Eating much better! Slept well! Feeling reasonably well and would like to go home. Does still have some epigastric discomfort and nausea but doing much better than before. Vitals noted, in general she is awake and alert extremely pleasant, walking around the room and looking out the window. No distress.. HEENT normoephalic atraumatic mucous members moist. Breathing unlabored no accessory muscle use good effort. Skin shows no rashes no pallor or icterus. Portal vein thrombosislikely relates to distorted anatomy of the portal venous system as it goes around her pancreatic cysts. Had Lovenox bridging for 5 days, now therapeutic INR. Continue Coumadin. Next INR Friday. Epigastric pain and nauseaseems like it probably relates to the portal vein thrombosis as well as chronic pancreatitis as well as her severe anxiety. For the portal vein thrombosis she is now adequately anticoagulated, but symptoms will take a while, for the chronic pancreatitis, we have recommended alcohol cessation and pancreatic enzyme supplementationseems to be helping symptoms some. For the anxiety, see below Anxiety/PTSDextensive discussions, tried to start to change her perspective on feelings of panic, as right now she seems to mostly try to run from or suppress themand this leads to her being on a never-ending cycle of looking to find a medicine to quiet her anxiety sensation. We discussed the nature of panic attacks, and the fact that while they feel like they will kill you they will not, and that it would be okay to not have to constantly suppress the symptomsespecially given that that would then leave her at high risk for alc ohol abuse relapse after she is out of the hospital. Further, yesterday we discussed the up cycle that often happens with benzodiazepines followed by physical dependence, followed by worsening anxiety making benzodiazepines only generally an acceptable option for extremely intermittent rare use. We discussed the right now certainly would not be the right time to start to wean her current benzos. Remeron seems to be helping with sleep, and may be with appetite, hopefully it may start to help with anxiety and depression some. In regards to thinking her way through her panic attacks, we did discuss that if anything seemed truly worrisome it would certainly be okay to be evaluated, but I also recommended getting a pulse oximeter for home, so that if she feels like she cannot breathe, but sees that her pulse ox is actually okay, and it may help her think her way through some of her episodes. Otherwise as above Resident Activity Tracking Resident Involvement: Resident Care Provided Care Provided: Adult Hospital Medicine
[2019-07-06] MEDS ORDERED: CYANOCOBALAMIN 500 MCG TABLET (VITAMIN B-12) PO SCH (09:00)
== END 2019-07-03 11:28 | disposition home or self-care (01) | DRG 441 ==
LOC: ED 08:46 → 2S 08:46 → SUATTDRO 12:23 → 2S 13:13 → 4W 07-01 14:52

== ENCOUNTER 2019-09-10 01:44 | Inpatient (IN) ==
[2019-09-10] MEDS ORDERED: DiphenhydrAMINE HCL 50 MG/ML VIAL IV STA (02:05)
[2019-09-10] MEDS ORDERED: ACETAMINOPHEN 1,000 MG/100 ML VIAL IV STA (02:05)
[2019-09-10] MEDS ORDERED: DICYCLOMINE HCL 10 MG/ML 2 ML AMP/VIAL IM ONE (02:05)
[2019-09-10] MEDS ORDERED: PROCHLORPERAZINE 2 ML IV ONE (02:05)
[2019-09-10] MEDS ORDERED: SODIUM CHLORIDE 0.9% 1000ML 1,000 ML IV SCH (02:15)
[2019-09-10 02:35] LABS: Appearance Urine Clear (Clear); Bacteria Urine Automated 2+ (Negative); Bilirubin Urine Negative (Negative); Blood Urine Negative (Negative); Color Urine Yellow; Epithelial Cell Urine Auto >30 /lpf (0-5); Glucose Urine UA Negative (Negative); Ketones Urine Trace (Negative); Leukocyte Esterase Urine Trace (Negative); Nitrite Urine Negative (Negative); Protein Urine Trace (Negative); Specific Gravity Urine 1.023 (1.000-1.030); Urobilinogen Urine Negative (Negative); pH Urine 5.5 (4.5-7.5)
[2019-09-10 02:36] LABS: Basophils # (auto) 0.05 K/uL (0-0.2); Basophils % (auto) 0.3 %; Eosinophils # (auto) 0.43 K/uL (0-0.5); Eosinophils % (auto) 2.6 %; Hematocrit (blood only) 41.1 % (37-47); Hemoglobin 13.7 g/dL (12.0-16.0); Immature Granulocytes # (auto) 0.04 K/uL (0.00-0.02); Immature Granulocytes % (auto) 0.2 %; Lymphocytes # (auto) 2.26 K/uL (1.2-3.4); Lymphocytes % (auto) 13.9 %; Mean Corpuscular Hemoglobin 33.2 pg (25-34); Mean Corpuscular Hgb Conc 33.3 g/dL (32-36); Mean Corpuscular Volume 99.5 fL (80-100); Mean Platelet Volume 9.1 fL (7.4-10.4); Monocytes # (auto) 1.15 K/uL (0.11-0.59); Monocytes % (auto) 7.1 %; Neutrophils # (auto) 12.37 K/uL (1.4-6.5); Neutrophils % (auto) 75.9 %; Platelet Count 431 K/uL (130-400); RDW Coefficient of Variation 12.9 % (11.5-14.5); RDW Standard Deviation 46.8 fL (36.4-46.3); Red Blood Count 4.13 M/uL (4.2-5.4)
[2019-09-10 02:42] LABS: INR 2.4 (0.9-1.1); Partial Thromboplastin Ratio 1.2; Partial Thromboplastin Time 31.8 Seconds (21.0-31.0); Prothrombin Time 23.1 Seconds (9.0-12.0)
[2019-09-10 02:51] LABS: Alanine Aminotransferase 16 U/L (12-78); Albumin Level 3.6 gm/dl (3.4-5.0); Aspartate Aminotransferase 14 U/L (15-37); BUN Creatinine Ratio 16.6 (10-20); Blood Urea Nitrogen 10 mg/dl (7-18); Calcium 9.1 mg/dl (8.5-10.1); Carbon Dioxide 28 mmol/L (21-32); Chloride 110 mmol/L (98-107); Creatinine Clr Calc Pharmacy 100.8 ml/min; Est GFR (African American) 131.6; Est GFR (Non-African American) 113.6; Glucose 117 mg/dl (70-99); Potassium 3.9 mmol/L (3.5-5.1); Sodium 142 mmol/L (136-145)
[2019-09-10 02:56] LABS: Alkaline Phosphatase 111 U/L (45-117); Bilirubin,Total 0.2 mg/dl (0.2-1); Globulin 3.5 gm/dl (2.5-4.0); Total Protein 7.1 gm/dl (6.4-8.2); Troponin I < 0.015 ng/ml (0-0.045)
[2019-09-10] MEDS ORDERED: HYDROmorphone INJ 1 MG/ML SYRINGE IV STA (03:00)
[2019-09-10] MEDS ORDERED: IOVERSOL 100ml IV PRN (03:56)
[2019-09-10 04:02] LABS: Amphetamines+Metham, Urine Neg (Neg); Barbiturates, Urine Neg (Neg); Benzodiazepine, Urine Neg (Neg); Cocaine, Urine Neg (Neg); MDMA (Ecstacy), Urine Neg (Neg); Methadone, Urine Neg (Neg); Opiate, Urine Neg (Neg); Phencyclidine, Urine Neg (Neg)
--- NOTE | 2019-09-10 05:36 | History & Physical Report ---
Date of Service September 10, 2019 Assessment & Plan (1) Acute pancreatitis: Recurrent acute pancreatitis/alcohol abuse/history acute alcoholic pancreatitis/history of acute gallstone pancreatitis/pancreatic head pseudocyst- Given additional 1 L IV fluid bolus, then normal saline plus KCl 20 mEq at 200 mils per hour. Initial lipase 20,030 Full liquid diet. Follow serial CBC with differential, chemistry profile, lipase. Famotidine 20 mg IV every [address] Willett, who has seen her in the hospital in the past Present on Admission?: Yes (2) Cirrhosis of liver: As noted above, and per gastroenterology Present on Admission?: Yes (3) Alcohol abuse: Place on SS Present on Admission?: Yes (4) Portal vein thrombosis: Continue warfarin. INR therapeutic at 2.4 Present on Admission?: Yes (5) Pancreatic pseudocyst: As noted above. Present on Admission?: Yes (6) Nausea and vomiting: Zofran 4 mg IV every 6 hours PRN Present on Admission?: Yes (7) Abdominal pain: tramadol 50mg po q4h prn moderate pain Present on Admission?: Yes History of Present Illness Chief Complaint: Patient presents to the emergency department with severe abdominal discomfort with nausea and vomiting. Primary Care Provider: Diane Sorenson MD The patient is a 38-year-old female with a past medical history including alcoholic liver cirrhosis, alcohol abuse, portal vein thrombosis, alcoholic panc reatitis, depression with anxiety, PTSD, hiatal hernia, peptic ulcer disease and migraines. She reports that she had not been drinking for a while, but went to lunch with a girlfriend today and had 2 drinks, and developed severe pain shortly thereafter. In the emergency department, patient underwent laboratories showing a lipase of 20,030, and CT of abdomen pelvis suggestive of acute interstitial pancreatitis with at least 3 intra-parenchymal pancreatic pseudocysts. Allergies Allergy/AdvReac Type Severity Reaction Status Date / Time buspirone [From BuSpar] Allergy Severe Unconscious, Verified 09/10/19 04:32 seizures quetiapine [From Seroquel] Allergy Severe Unconscious, Verified 09/10/19 04:32 seizures citalopram [From Celexa] AdvReac Intermediate Vomiting Verified 09/10/19 04:32 fluoxetine [From Prozac] AdvReac Intermediate VIOLENT Verified 09/10/19 04:32 VOMITING morphine AdvReac Intermediate "MAKES ME Verified 09/10/19 04:32 SICK(VOMITING)" vilazodone [From Viibryd] AdvReac Vomiting Verified 09/10/19 04:32 Home Medications Home Medications Medication Instructions Recorded Confirmed Type methocarbamol 500 mg tablet 500 mg PO BID PRN tab 03/16/19 09/10/19 History multivitamin 1 tab PO DAILY 03/18/19 09/10/19 History sumatriptan succinate 100 mg tablet 100 mg PO UD PRN #30 tab 04/28/19 09/10/19 Rx magnesium oxide 400 mg (241.3 mg 400 mg PO DAILY tab 06/01/19 09/10/19 History magnesium) tablet pantoprazole 40 mg tablet,delayed 40 mg PO BID #180 tab 06/28/19 09/10/19 Rx release ondansetron 4 mg disintegrating 4 mg PO Q6H #120 tab 06/29/19 09/10/19 Rx tablet Creon 3 cap PO AC #270 cap 07/03/19 09/10/19 Rx medroxyprogesterone 150 mg/mL 150 mg IM .COMPLEX #1 ml 07/12/19 09/10/19 Rx intramuscular suspension mirtazapine 15 mg tablet 15 mg PO HS #30 tab 08/04/19 09/10/19 Rx promethazine 25 mg tablet 25 mg PO TID PRN #30 tab 08/06/19 09/10/19 Rx clonazepam 1 mg tablet 1 mg PO QID PRN #30 tab 08/09/19 09/10/19 Rx cyanocobalamin (vitamin B-12) 500 500 mcg PO BID #60 tab 08/10/19 09/10/19 Rx mcg tablet thiamine HCl (vitamin B1) 100 mg 100 mg PO DAILY #30 tab 08/10/19 09/10/19 Rx tablet clindamycin phosphate 1 % topical 1 appln TOP BID #30 gm 08/30/19 09/10/19 Rx gel folic acid 1 mg tablet 1 mg PO QAM 30 Days #30 tab 09/02/19 09/10/19 Rx warfarin 5 mg tablet 5 mg PO DAILY 30 Days #30 tab 09/03/19 09/10/19 Rx baclofen 10 mg tablet 10 mg PO TID #30 tab 09/08/19 09/10/19 Rx diclofenac sodium 1 % topical gel 2 gm TOP QID #100 gm 09/08/19 09/10/19 Rx Past Med/Surg History Family History (Updated 07/12/19 @ 14:13 by MARYBEL Osborne) Father Family history of diabetes mellitus Myocardial infarction Stroke Hypertension Grandfather (Maternal) Family history of diabetes mellitus Grandmother (Maternal) Family history of diabetes mellitus Hypertension Cancer Mother Hypothyroidism Grandfather Cancer Heart problem Social History (Updated 07/12/19 @ 14:13 by MARYBEL Osborne) Preferred Language: Spanish Communication Ability: Effective Visual Impairment: No Limitations Hearing Ability: Normal [employer] Worker Required: No Beliefs That Will Affect Care: None marital status: Single Current Living Situation: Parent current occupational status: employed Feels Safe at Home: Yes Smoking Status: Current every day smoker Tobacco Type: cigarettes ; Cigarettes Per Day: 7 ; Second Hand Exposure: No ; Hx Alcohol Use: Yes Alcohol type: wine Hx Substance Use: No Childhood Exposure to Second-Hand Smoke: No Dental Care, Regularly: Yes Physical Activity Frequency: Does not Exercise Seatbelt Use: always Sunscreen Use: Yes Do you think of yourself as: straight/heterosexual Review of Systems Review of Systems: The patient denies chest pain, palpitations, shortness of breath, dyspnea on exertion, cough, lower extremity swelling, sore throat, fevers, chills, sweats, diarrhea , constipation, blood in urine or stool, dysuria, urinary frequency or urgency, lightheadedness, dizziness, headache, memory loss, loss of consciousness, rash, imbalance, focal or generalized weakness, numbness or tingling in arms or legs, neck pain, or night sweats. The review of systems is otherwise negative other than for that already noted above, and at least 10 systems have been reviewed. Physical Exam Physical Exam: The patient is awake, alert and oriented 3, looks chronically ill, normocephalic and atraumatic, lying in bed and in no acute distress. HEENT--PERRL, EOMI, mucous membranes and oropharynx dry. Neck--supple. No JVD. No bruits. Thyroid normal, trachea midline, no adenopathy. Heart--normal S1 and S2. No murmurs, rubs or gallops. Lungs--clear bilaterally, no respiratory distress, no accessory muscle use. Abdomen--normal bowel sounds and soft. Generalized tenderness. Extremities--no cyanosis or clubbing. No edema. Dermatologic--normal skin turgor, normal color, no abnormal lymph nodes, no rash. Neurologic--cranial nerves II through XII grossly intact. Rheumatologic--normal range of motion. Psychiatric--normal affect. Results & Data Vital Signs (Past 12 Hours) Vital Signs Temp Pulse Resp BP Pulse Ox 09/10/19 05:00 85 16 126/83 96 09/10/19 04:30 84 13 119/79 96 09/10/19 04:00 92 H 15 121/84 96 09/10/19 03:30 90 14 123/81 94 09/10/19 03:11 96 09/10/19 03:00 85 15 125/101 H 99 09/10/19 02:39 100 09/10/19 02:30 80 17 129/89 100 09/10/19 02:22 86 16 118/78 100 09/10/19 01:52 97.3 F L 91 H 24 137/92 100 Laboratory Results Laboratory Results WBC 16.30 K/uL (4.8-10.8) H 09/10/19 02:14 RBC 4.13 M/uL (4.2-5.4) L 09/10/19 02:14 Hgb 13.7 g/dL (12.0-16.0) 09/10/19 02:14 Hct 41.1 % (37-47) 09/10/19 02:14 MCV 99.5 fL (80-100) 09/10/19 02:14 MCH 33.2 pg (25-34) 09/10/19 02:14 MCHC 33.3 g/dL (32-36) 09/10/19 02:14 RDW Std Deviation 46.8 fL (36.4-46.3) H 09/10/19 02:14 RDW Coeff of Jessica 12.9 % (11.5-14.5) 09/10/19 02:14 Plt Count 431 K/uL (130-400) H 09/10/19 02:14 MPV 9.1 fL (7.4-10.4) 09/10/19 02:14 Immature Gran % (Auto) 0.2 % 09/10/19 02:14 Neut % (Auto) 75.9 % 09/10/19 02:14 Lymph % (Auto) 13.9 % 09/10/19 02:14 [place] % (Auto) 7.1 % 09/10/19 02:14 Eos % (Auto) 2.6 % 09/10/19 02:14 Baso % (Auto) 0.3 % 09/10/19 02:14 Immature Gran # (Auto) 0.04 K/uL (0.00-0.02) H 09/10/19 02:14 Neut # (Auto) 12.37 K/uL (1.4-6.5) H 09/10/19 02:14 Lymph # (Auto) 2.26 K/uL (1.2-3.4) 09/10/19 02:14 [place] # (Auto) 1.15 K/uL (0.11-0.59) H 09/10/19 02:14 Eos # (Auto) 0.43 K/uL (0-0.5) 09/10/19 02:14 Baso # (Auto) 0.05 K/uL (0-0.2) 09/10/19 02:14 PT 23.1 Seconds (9.0-12.0) H 09/10/19 02:14 INR 2.4 (0.9-1.1) H 09/10/19 02:14 APTT 31.8 Seconds (21.0-31.0) H 09/10/19 02:14 PTT Ratio 1.2 09/10/19 02:14 Sodium 142 mmol/L (136-145) 09/10/19 02:14 Potassium 3.9 mmol/L (3.5-5.1) 09/10/19 02:14 Chloride 110 mmol/L (98-107) H 09/10/19 02:14 Carbon Dioxide 28 mmol/L (21-32) 09/10/19 02:14 Anion Gap 4.0 (3-11) 09/10/19 02:14 BUN 10 mg/dl (7-18) 09/10/19 02:14 Creatinine 0.62 mg/dl (0.6-1.2) 09/10/19 02:14 Est Cr Clr Drug Dosing 100.8 ml/min 09/10/19 02:14 Est GFR ( Amer) 131.6 09/10/19 02:14 Est GFR (Non-Af Amer) 113.6 09/10/19 02:14 BUN/Creatinine Ratio 16.6 (10-20) 09/10/19 02:14 Glucose 117 mg/dl (70-99) H 09/10/19 02:14 Calcium 9.1 mg/dl (8.5-10.1) 09/10/19 02:14 Total Bilirubin 0.2 mg/dl (0.2-1) 09/10/19 02:14 AST 14 U/L (15-37) L 09/10/19 02:14 ALT 16 U/L (12-78) 09/10/19 02:14 Alkaline Phosphatase 111 U/L (45-117) 09/10/19 02:14 Troponin I < 0.015 ng/ml (0-0.045) 09/10/19 02:14 Total Protein 7.1 gm/dl (6.4-8.2) 09/10/19 02:14 Albumin 3.6 gm/dl (3.4-5.0) 09/10/19 02:14 Globulin 3.5 gm/dl (2.5-4.0) 09/10/19 02:14 Albumin/Globulin Ratio 1.0 (0.9-2) 09/10/19 02:14 Lipase 33520 U/L (73-393) H 09/10/19 02:14 Urine Color Yellow 09/10/19 02:15 Urine Appearance Clear (Clear) 09/10/19 02:15 Urine pH 5.5 (4.5-7.5) 09/10/19 02:15 Ur Specific [place] 1.023 (1.000-1.030) 09/10/19 02:15 Urine Protein Trace (Negative) H 09/10/19 02:15 Urine Glucose (UA) Negative (Negative) 09/10/19 02:15 Urine Ketones Trace (Negative) H 09/10/19 02:15 Urine Blood Negative (Negative) 09/10/19 02:15 Urine Nitrite Negative (Negative) 09/10/19 02:15 Urine Bilirubin Negative (Negative) 09/10/19 02:15 Urine Urobilinogen Negative (Negative) 09/10/19 02:15 Ur Leukocyte Esterase Trace (Negative) H 09/10/19 02:15 Urine WBC (Auto) 10-30 /hpf (0-5) H 09/10/19 02:15 Urine RBC (Auto) 5-10 /hpf (0-4) H 09/10/19 02:15 U Hyaline Cast (Auto) 5-10 /lpf (0-5) H 09/10/19 02:15 U Epithel Cells (Auto) >30 /lpf (0-5) H 09/10/19 02:15 Urine Bacteria (Auto) 2+ (Negative) H 09/10/19 02:15 POC Ur Test NEG (NEG) 09/10/19 02:15 Urine Opiates Screen Neg (Neg) 09/10/19 02:15 Ur Methadone, Qual Neg (Neg) 09/10/19 02:15 Urine Barbiturates Neg (Neg) 09/10/19 02:15 Ur Phencyclidine (PCP) Neg (Neg) 09/10/19 02:15 U Amphetamin/Meth Scrn Neg (Neg) 09/10/19 02:15 MDMA (Ecstasy) Screen Neg (Neg) 09/10/19 02:15 U Benzodiazepines Scrn Neg (Neg) 09/10/19 02:15 Ur Cocaine Metabolite Neg (Neg) 09/10/19 02:15 U Marijuana (THC) Screen Pos (Neg) H 09/10/19 02:15 Diagnostic Findings [facility] Patient: ADA DYSON (Female) : 78 test: [id number] Status: ER Date: 09/10/19 03:59 Room #: History: GENERALIZED ABDOMINAL PAIN, APPENDIX PRESENT Slices: [phone] Priors: Tech: Mary Ellen Desai @ [id number] Exams: CT ABDOMEN & PELVIS With Contrast Contrast: IV Amt: 93 CC'S Accession Numbers: [id number] Preliminary Findings Only See Final Report For Complete Findings CT ABDOMEN & PELVIS With Contrast: Mild inflammatory changes around the pancreatic head suggestive of acute interstitial pancreatitis. Correlate with lipase levels. There are at least 3 intraparenchymal pseudocysts in the pancreatic head the largest measuring 1.9 cm on image 3-166. Mucosal thickening in the right hemicolon, possibly mild nonspecific colitis in the appropriate clinical setting. Cholecystectomy. Radiologist: Abhi Bob MD Study ready at 04:06 and initial results transmitted at 04:31 *This report constitutes a preliminary interpretation only. Non-acute findings felt to be unrelated to the clinical presentation may not be discussed in this report. The study will be interpreted and a final report will be generated by the local Radiologist the following shift. To reach the hospital radiology department call [phone]. If a discrepancy is found between the preliminary and final interpretations of this study, please notify us via our Client Portal at [email or web address] under QA Exams.You can also fax this report with a description of the discrepancy, or include the final report, to our daytime fax number [phone].If faxing, please indicate the severity of discrepancy using one of the following categories: [ ] 1 - Agree/Informational [ ] 2 - Unlikely to Affect Management [ ] 3 - Possible Eventual Change of Management [ ] 4 - Probable Immediate Change of Management For all other patient related information, please fax us at [phone]. [id number] Code Status & VTE Plan Code Status Full code VTE Prophylaxis Plan VTE Prophylaxis will be ordered: Yes PG Care Time/CCT Total # of Minutes Spent Total Time Spent with Patient: Total time spent is greater than 50% in coordination of care (as documented) at patient's floor/unit and/or counseling patient: (1) Acute pancreatitis Acute pancreatitis complication: unspecified Pancreatitis type: unspecified pancreatitis type Qualified Code(s): K85.90 - Acute pancreatitis without necrosis or infection, unspecified
[2019-09-10] MEDS ORDERED: LORazepam 1 MG TAB PO PRN (05:46)
[2019-09-10] MEDS ORDERED: TRAMADOL HCL 50 MG TABLET PO PRN (05:53)
[2019-09-10] MEDS ORDERED: ONDANSETRON HOME PACK 4MG OD TAB PO ONE (06:00)
--- NOTE | 2019-09-10 06:26 | Emergency Department Note ---
History of Present Illness General Chief complaint: Chest Pain Stated complaint: CHEST PAIN,STOMACH Time Seen by Provider: 09/10/19 01:58 History of Present Illness Maximum Pain Intensity: 7 This is a 38-year-old female presenting to the emergency department for evaluation of diffuse abdominal pain worsening over the past several hours. The patient has significant nausea with scant emesis. She reports a recent diagnosis of portal venous thrombosis and has been on Coumadin for this. She states that she had this diagnosis in June, and did not drink any alcohol until today, when she had 2 drinks around lunchtime. The patient has not had fevers or chills. No chest pain, chest tightness, or shortness of breath. She does have a past history of somatic disorder and has been on long-term opioids in the past. There is concern for alcohol and marijuana use/abuse. The patient rates her current discomfort a 10/10, sharp, and diffuse. She denies chance of . Home Medications Home Medications Medication Instructions Recorded Confirmed Type methocarbamol 500 mg tablet 500 mg PO BID PRN tab 03/16/19 09/10/19 History multivitamin 1 tab PO DAILY 03/18/19 09/10/19 History sumatriptan succinate 100 mg tablet 100 mg PO UD PRN #30 tab 04/28/19 09/10/19 Rx magnesium oxide 400 mg (241.3 mg 400 mg PO DAILY tab 06/01/19 09/10/19 History magnesium) tablet pantoprazole 40 mg tablet,delayed 40 mg PO BID #180 tab 06/28/19 09/10/19 Rx release ondansetron 4 mg disintegrating 4 mg PO Q6H #120 tab 06/29/19 09/10/19 Rx tablet Creon 3 cap PO AC #270 cap 07/03/19 09/10/19 Rx medroxyprogesterone 150 mg/mL 150 mg IM .COMPLEX #1 ml 07/12/19 09/10/19 Rx intramuscular suspension mirtazapine 15 mg tablet 15 mg PO HS #30 tab 08/04/19 09/10/19 Rx promethazine 25 mg tablet 25 mg PO TID PRN #30 tab 08/06/19 09/10/19 Rx clonazepam 1 mg tablet 1 mg PO QID PRN #30 tab 08/09/19 09/10/19 Rx cyanocobalamin (vitamin B-12) 500 500 mcg PO BID #60 tab 08/10/19 09/10/19 Rx mcg tablet thiamine HCl (vitamin B1) 100 mg 100 mg PO DAILY #30 tab 08/10/19 09/10/19 Rx tablet clindamycin phosphate 1 % topical 1 appln TOP BID #30 gm 08/30/19 09/10/19 Rx gel folic acid 1 mg tablet 1 mg PO QAM 30 Days #30 tab 09/02/19 09/10/19 Rx warfarin 5 mg tablet 5 mg PO DAILY 30 Days #30 tab 09/03/19 09/10/19 Rx baclofen 10 mg tablet 10 mg PO TID #30 tab 09/08/19 09/10/19 Rx diclofenac sodium 1 % topical gel 2 gm TOP QID #100 gm 09/08/19 09/10/19 Rx ondansetron 4 mg PO Q6H PRN #12 tab 09/10/19 Rx Allergies Allergy/AdvReac Type Severity Reaction Status Date / Time buspirone [From BuSpar] Allergy Severe Unconscious, Verified 09/10/19 04:32 seizures quetiapine [From Seroquel] Allergy Severe Unconscious, Verified 09/10/19 04:32 seizures citalopram [From Celexa] AdvReac Intermediate Vomiting Verified 09/10/19 04:32 fluoxetine [From Prozac] AdvReac Intermediate VIOLENT Verified 09/10/19 04:32 VOMITING morphine AdvReac Intermediate "MAKES ME Verified 09/10/19 04:32 SICK(VOMITING)" vilazodone [From Viibryd] AdvReac Vomiting Verified 09/10/19 04:32 Past Med/Surg History Medical History Acne Acute gallstone pancreatitis Back pain, chronic (Acute) Chronic neck pain (Acute) Depression with anxiety (Chronic) GERD (gastroesophageal reflux disease) Hiatal hernia (Chronic) Insomnia (Acute) Kidney failure 2009 (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 Gala Willett History of lumpectomy of right breast BENIGN History of tooth extraction Family History Father Family history of diabetes mellitus Myocardial infarction Stroke Hypertension Grandfather (Maternal) Family history of diabetes mellitus Grandmother (Maternal) Family history of diabetes mellitus Hypertension Cancer Mother Hypothyroidism Grandfather Cancer Heart problem Social History Preferred Language: Ch[place] Communication Ability: Effective Visual Impairment: No Limitations Hearing Ability: Normal Window Shade Cutter And Mounter Required: No Beliefs That Will Affect Care: None marital status: Single Current Living Situation: Alone current occupational status: employed Feels Safe at Home: Yes Smoking Status: Current some day smoker Tobacco Type: cigarettes ; Cigarettes Per Day: 7 ; Second Hand Exposure: No ; Hx Alcohol Use: Yes Alcohol type: beer Hx Substance Use: Yes substance use type: marijuana and prescription drug Substance Use Type Other:: medically prescribed Last Used Substance: Unknown Childhood Exposure to Second-Hand Smoke: No Dental Care, Regularly: Yes Physical Activity Frequency: Does not Exercise Seatbelt Use: always Sunscreen Use: Yes Do you think of yourself as: straight/heterosexual Review of Systems A total of 10 systems reviewed and were otherwise negative Physical Exam Vital Signs Vital Signs - 24 hr 09/10/19 01:52 09/10/19 02:22 09/10/19 02:30 Temperature 36.3 C L Temperature Source Oral Pulse Rate 91 H 86 80 Pulse Rate from SpO2 Sensor 88 79 Pulse Rhythm Regular Respiratory Rate 24 16 17 Respiratory Effort / Characteristics Non-Labored Spontaneous Respiratory Depth Normal Respiratory Pattern Regular Blood Pressure 137/92 118/78 129/89 Blood Pressure Mean 107 86 100 Pulse Oximetry 100 100 100 Oxygen Delivery Method Room Air Sepsis Recent Fever Within 48 Hours No Sepsis New/Unexplained Change in Mental Status No Sepsis Action Taken by Nursing No Action Required 09/10/19 02:39 09/10/19 03:00 09/10/19 03:11 Temperature Temperature Source Pulse Rate 85 Pulse Rate from SpO2 Sensor 84 Pulse Rhythm Respiratory Rate 15 Respiratory Effort / Characteristics Respiratory Depth Respiratory Pattern Blood Pressure 125/101 H Blood Pressure Mean 107 Pulse Oximetry 100 99 96 Oxygen Delivery Method Room Air Room Air Sepsis Recent Fever Within 48 Hours Sepsis New/Unexplained Change in Mental Status Sepsis Action Taken by Nursing 09/10/19 03:30 09/10/19 04:00 09/10/19 04:30 Temperature Temperature Source Pulse Rate 90 92 H 84 Pulse Rate from SpO2 Sensor 89 92 H 84 Pulse Rhythm Respiratory Rate 14 15 13 Respiratory Effort / Characteristics Respiratory Depth Respiratory Pattern Blood Pressure 123/81 121/84 119/79 Blood Pressure Mean 91 90 82 Pulse Oximetry 94 96 96 Oxygen Delivery Method Sepsis Recent Fever Within 48 Hours Sepsis New/Unexplained Change in Mental Status Sepsis Action Taken by Nursing 09/10/19 05:00 Temperature Temperature Source Pulse Rate 85 Pulse Rate from SpO2 Sensor 86 Pulse Rhythm Respiratory Rate 16 Respiratory Effort / Characteristics Respiratory Depth Respiratory Pattern Blood Pressure 126/83 Blood Pressure Mean 88 Pulse Oximetry 96 Oxygen Delivery Method Sepsis Recent Fever Within 48 Hours Sepsis New/Unexplained Change in Mental Status Sepsis Action Taken by Nursing VITALS: Vitals are noted on the nurse's note and reviewed by myself. Vital signs stable. GENERAL: Well-developed, well-nourished, white female who appears in moderate to severe discomfort secondary to her stated complaint. Patient is cooperative with the examination. HEAD: Normocephalic atraumatic. EYES: Pupils equal round and reactive to light and accommodation. Conjunctivae without injection, sclerae without icterus. Extraocular movements intact. NECK: Supple without nuchal rigidity. No lymphadenopathy. No thyromegaly. Cervical spine is nontender. HEART: Regular rate and rhythm without murmurs gallops or rubs. LUNGS: Clear to auscultation bilaterally without wheezes, rales or rhonchi. No retractions or accessory muscle use. ABDOMEN: Positive normal bowel sounds x 4. Soft with diffuse tenderness. No distinct point tenderness. MUSCULOSKELETAL: No muscle atrophy, erythema, or edema noted. Full range of motion in all extremities. NEURO: Patient was alert and oriented to person place and time. CN II through XII grossly intact SKIN: The skin was without rashes, erythema, edema, or bruising. Capillary refill less than 2 seconds. Course Administered Medications Lipase/Protease/Amylase (Pancreaze (Lipase 10,500u)) 3 cap PO AC [facility]O Stop: 10/10/19 07:29 Last Admin: 09/10/19 16:00 Dose: 3 cap Documented by: [id number] Admin: 09/10/19 11:27 Dose: 3 cap Documented by: [id number] Admin: 09/10/19 08:02 Dose: 3 cap Documented by: [id number] Baclofen (Lioresal) 10 mg PO TID [facility] Stop: 10/10/19 08:59 Last Admin: 09/10/19 20:17 Dose: Not Given Documented by: [id number] Admin: 09/10/19 13:06 Dose: 10 mg Documented by: [id number] Admin: 09/10/19 08:40 Dose: 10 mg Documented by: [id number] Cyanocobalamin (Vitamin B-12) 500 mcg PO BID [facility] Stop: 10/10/19 08:59 Last Admin: 09/10/19 20:15 Dose: 500 mcg Documented by: [id number] Admin: 09/10/19 08:41 Dose: 500 mcg Documented by: [id number] Diclofenac Sodium (Voltaren 1% Top) 2 gm EXT QID [facility] Stop: 10/10/19 08:59 Last Admin: 09/10/19 20:15 Dose: Not Given Documented by: [id number] Admin: 09/10/19 16:02 Dose: Not Given Documented by: [id number] Admin: 09/10/19 12:39 Dose: 2 gm Documented by: [id number] Admin: 09/10/19 09:23 Dose: Not Given Documented by: [id number] Folic Acid (Folvite) 1 mg PO QAM [facility] Stop: 10/10/19 08:59 Last Admin: 09/10/19 08:40 Dose: 1 mg Documented by: [id number] Hydromorphone HCl (Dilaudid) 0.5 mg IV Q4 PRN PRN Reason: Pain Stop: 09/24/19 09:59 Last Admin: 09/10/19 18:33 Dose: 0.5 mg Documented by: [id number] Admin: 09/10/19 14:25 Dose: 0.5 mg Documented by: [id number] Admin: 09/10/19 10:15 Dose: 0.5 mg Documented by: [id number] Lactated Ringer's (Lr) 1,000 mls @ 200 mls/hr IV .Q5H [facility] Stop: 10/10/19 11:59 Last Admin: 09/10/19 21:41 Dose: 200 mls/hr Documented by: [id number] Infusion: 09/10/19 21:41 Dose: 200 mls/hr Documented by: [id number] Admin: 09/10/19 17:06 Dose: 200 mls/hr Documented by: [id number] Infusion: 09/10/19 17:06 Dose: 200 mls/hr Documented by: [id number] Admin: 09/10/19 12:34 Dose: 200 mls/hr Documented by: [id number] Ioversol (Optiray 320 100ml) 93 ml IV ONCE PRN PRN Reason: Interaction Checking Stop: 09/14/19 03:55 Last Admin: 09/10/19 03:56 Dose: 93 ml Documented by: [id number] Magnesium Oxide (Mag-Ox) 400 mg PO DAILY [facility]O Stop: 10/10/19 08:59 Last Admin: 09/10/19 08:40 Dose: 400 mg Documented by: [id number] Mirtazapine (Remeron) 15 mg PO HS [facility] Stop: 10/10/19 20:59 Last Admin: 09/10/19 20:15 Dose: 15 mg Documented by: [id number] Miscellaneous (Order Awaiting Action) 1 ea N/A QS [facility] Stop: 10/10/19 07:59 Last Admin: 09/10/19 16:00 Dose: Not Given Documented by: [id number] Admin: 09/10/19 07:58 Dose: Not Given Documented by: [id number] Multivitamins (Multivitamin Tab) 1 tab PO DAILY [facility] Stop: 10/10/19 08:59 Last Admin: 09/10/19 08:41 Dose: 1 tab Documented by: [id number] Ondansetron HCl (Zofran) 4 mg IV Q6H PRN PRN Reason: Nausea Stop: 10/10/19 07:09 Last Admin: 09/10/19 20:20 Dose: 4 mg Documented by: [id number] Admin: 09/10/19 14:25 Dose: 4 mg Documented by: [id number] Admin: 09/10/19 07:44 Dose: 4 mg Documented by: [id number] Pantoprazole Sodium (Protonix) 40 mg PO BID [facility] Stop: 10/10/19 08:59 Last Admin: 09/10/19 20:15 Dose: 40 mg Documented by: [id number] Admin: 09/10/19 08:41 Dose: 40 mg Documented by: [id number] Thiamine HCl (Vitamin B-1) 100 mg PO DAILY [facility] Stop: 10/10/19 08:59 Last Admin: 09/10/19 08:40 Dose: 100 mg Documented by: [id number] Tramadol HCl (Ultram) 50 mg PO Q4H PRN PRN Reason: Moderate Pain Stop: 10/10/19 05:52 Last Admin: 09/10/19 07:50 Dose: 50 mg Documented by: [id number] Warfarin Sodium (Coumadin) 5 mg PO DAILY@1600 [facility] Stop: 10/10/19 15:59 Last Admin: 09/10/19 16:01 Dose: 5 mg Documented by: [id number] Discontinued Medications Dicyclomine HCl (Bentyl) 20 mg IM NOW ONE Stop: 09/10/19 02:06 Last Admin: 09/10/19 02:12 Dose: 20 mg Documented by: [id number] Diphenhydramine HCl (Benadryl) 50 mg IV NOW STA Stop: 09/10/19 02:06 Last Admin: 09/10/19 02:11 Dose: 50 mg Documented by: [id number] Hydromorphone HCl (Dilaudid) 1 mg IV NOW STA Stop: 09/10/19 03:01 Last Admin: 09/10/19 03:06 Dose: 1 mg Documented by: [id number] Sodium Chloride (Nss 1000ml) 1,000 mls @ 999 mls/hr IV .Q1H1M [facility] Stop: 09/10/19 03:15 Last Infusion: 09/10/19 03:58 Dose: 0 mls/hr Documented by: [id number] Admin: 09/10/19 02:12 Dose: 999 mls/hr Documented by: [id number] Prochlorperazine (Compazine) 2 mls @ 1 mls/min IV ONE ONE Stop: 09/10/19 02:06 Last Admin: 09/10/19 02:12 Dose: 1 mls/min Documented by: [id number] Acetaminophen (Ofirmev) 1,000 mg in 100 mls @ 400 mls/hr IV NOW STA Stop: 09/10/19 02:19 Last Infusion: 09/10/19 02:38 Dose: 0 mls/hr Documented by: [id number] Admin: 09/10/19 02:11 Dose: 400 mls/hr Documented by: [id number] Sodium Chloride (Nss 1000ml) 1,000 mls @ 999 mls/hr IV .Q1H1M ONE Stop: 09/10/19 08:30 Last Infusion: 09/10/19 08:29 Dose: 0 mls/hr Documented by: [id number] Admin: 09/10/19 07:28 Dose: 999 mls/hr Documented by: [id number] Potassium Chloride/Sodium Chloride (Normal Saline W/20 Meq Kcl) 20 meq in 1,000 mls @ 200 mls/hr IV .Q5H [facility] Stop: 10/10/19 08:29 Last Infusion: 09/10/19 14:57 Dose: 0 mls/hr Documented by: [id number] Infusion: 09/10/19 12:34 Dose: 0 mls/hr Documented by: [id number] Admin: 09/10/19 08:38 Dose: 200 mls/hr Documented by: [id number] Ondansetron HCl (Zofran Odt 4mg Home Pack) 1 homepack PO NOW ONE Stop: 09/10/19 06:01 Last Admin: 09/10/19 06:30 Dose: Not Given Documented by: [id number] Medical Decision Making Differential Diagnosis Differential diagnosis: Etiologies such as biliary colic, cholecystitis, hepatitis, pancreatitis, cardiac disease, pancreatitis, gastritis, peptic ulcer disease, appendicitis, cystitis, diverticulitis, mesenteric ischemia, inflammatory bowel disease, ileus, bowel obstruction, testicular/adnexal torsion, aortic pathology, shingles, as well as others were considered Laboratory Data Result diagrams: 09/10/19 02:14 09/10/19 02:14 Lab Results 09/10/19 09/10/19 09/10/19 Range/Units 02:14 02:14 02:14 WBC 16.30 H (4.8-10.8) K/uL RBC 4.13 L (4.2-5.4) M/uL Hgb 13.7 (12.0-16.0) g/dL Hct 41.1 (37-47) % MCV 99.5 (80-100) fL MCH 33.2 (25-34) pg MCHC 33.3 (32-36) g/dL RDW Std Deviation 46.8 H (36.4-46.3) fL RDW Coeff of Jessica 12.9 (11.5-14.5) % Plt Count 431 H (130-400) K/uL MPV 9.1 (7.4-10.4) fL Immature Gran % (Auto) 0.2 % Neut % (Auto) 75.9 % Lymph % (Auto) 13.9 % [place] % (Auto) 7.1 % Eos % (Auto) 2.6 % Baso % (Auto) 0.3 % Immature Gran # (Auto) 0.04 H (0.00-0.02) K/uL Neut # (Auto) 12.37 H (1.4-6.5) K/uL Lymph # (Auto) 2.26 (1.2-3.4) K/uL [place] # (Auto) 1.15 H (0.11-0.59) K/uL Eos # (Auto) 0.43 (0-0.5) K/uL Baso # (Auto) 0.05 (0-0.2) K/uL PT 23.1 H (9.0-12.0) Seconds INR 2.4 H (0.9-1.1) APTT 31.8 H (21.0-31.0) Seconds PTT Ratio 1.2 Sodium 142 (136-145) mmol/L Potassium 3.9 (3.5-5.1) mmol/L Chloride 110 H (98-107) mmol/L Carbon Dioxide 28 (21-32) mmol/L Anion Gap 4.0 (3-11) BUN 10 (7-18) mg/dl Creatinine 0.62 (0.6-1.2) mg/dl Est Cr Clr Drug Dosing 100.8 ml/min Est GFR ( Amer) 131.6 Est GFR (Non-Af Amer) 113.6 BUN/Creatinine Ratio 16.6 (10-20) Glucose 117 H (70-99) mg/dl Calcium 9.1 (8.5-10.1) mg/dl Total Bilirubin 0.2 (0.2-1) mg/dl AST 14 L (15-37) U/L ALT 16 (12-78) U/L Alkaline Phosphatase 111 (45-117) U/L Troponin I < 0.015 (0-0.045) ng/ml Total Protein 7.1 (6.4-8.2) gm/dl Albumin 3.6 (3.4-5.0) gm/dl Globulin 3.5 (2.5-4.0) gm/dl Albumin/Globulin Ratio 1.0 (0.9-2) Lipase [id number] H (73-393) U/L Urine Color Urine Appearance (Clear) Urine pH (4.5-7.5) Ur Specific [place] (1.000-1.030) Urine Protein (Negative) Urine Glucose (UA) (Negative) Urine Ketones (Negative) Urine Blood (Negative) Urine Nitrite (Negative) Urine Bilirubin (Negative) Urine Urobilinogen (Negative) Ur Leukocyte Esterase (Negative) Urine WBC (Auto) (0-5) /hpf Urine RBC (Auto) (0-4) /hpf U Hyaline Cast (Auto) (0-5) /lpf U Epithel Cells (Auto) (0-5) /lpf Urine Bacteria (Auto) (Negative) POC Ur Test (NEG) Urine Opiates Screen (Neg) Ur Methadone, Qual (Neg) Urine Barbiturates (Neg) Ur Phencyclidine (PCP) (Neg) U Amphetamin/Meth Scrn (Neg) MDMA (Ecstasy) Screen (Neg) U Benzodiazepines Scrn (Neg) Ur Cocaine Metabolite (Neg) U Marijuana (THC) Screen (Neg) 09/10/19 09/10/19 09/10/19 Range/Units 02:15 02:15 02:15 WBC (4.8-10.8) K/uL RBC (4.2-5.4) M/uL Hgb (12.0-16.0) g/dL Hct (37-47) % MCV (80-100) fL MCH (25-34) pg MCHC (32-36) g/dL RDW Std Deviation (36.4-46.3) fL RDW Coeff of Jessica (11.5-14.5) % Plt Count (130-400) K/uL MPV (7.4-10.4) fL Immature Gran % (Auto) % Neut % (Auto) % Lymph % (Auto) % [place] % (Auto) % Eos % (Auto) % Baso % (Auto) % Immature Gran # (Auto) (0.00-0.02) K/uL Neut # (Auto) (1.4-6.5) K/uL Lymph # (Auto) (1.2-3.4) K/uL [place] # (Auto) (0.11-0.59) K/uL Eos # (Auto) (0-0.5) K/uL Baso # (Auto) (0-0.2) K/uL PT (9.0-12.0) Seconds INR (0.9-1.1) APTT (21.0-31.0) Seconds PTT Ratio Sodium (136-145) mmol/L Potassium (3.5-5.1) mmol/L Chloride (98-107) mmol/L Carbon Dioxide (21-32) mmol/L Anion Gap (3-11) BUN (7-18) mg/dl Creatinine (0.6-1.2) mg/dl Est Cr Clr Drug Dosing ml/min Est GFR ( Amer) Est GFR (Non-Af Amer) BUN/Creatinine Ratio (10-20) Glucose (70-99) mg/dl Calcium (8.5-10.1) mg/dl Total Bilirubin (0.2-1) mg/dl AST (15-37) U/L ALT (12-78) U/L Alkaline Phosphatase (45-117) U/L Troponin I (0-0.045) ng/ml Total Protein (6.4-8.2) gm/dl Albumin (3.4-5.0) gm/dl Globulin (2.5-4.0) gm/dl Albumin/Globulin Ratio (0.9-2) Lipase (73-393) U/L Urine Color Yellow Urine Appearance Clear (Clear) Urine pH 5.5 (4.5-7.5) Ur Specific [place] 1.023 (1.000-1.030) Urine Protein Trace H (Negative) Urine Glucose (UA) Negative (Negative) Urine Ketones Trace H (Negative) Urine Blood Negative (Negative) Urine Nitrite Negative (Negative) Urine Bilirubin Negative (Negative) Urine Urobilinogen Negative (Negative) Ur Leukocyte Esterase Trace H (Negative) Urine WBC (Auto) 10-30 H (0-5) /hpf Urine RBC (Auto) 5-10 H (0-4) /hpf U Hyaline Cast (Auto) 5-10 H (0-5) /lpf U Epithel Cells (Auto) >30 H (0-5) /lpf Urine Bacteria (Auto) 2+ H (Negative) POC Ur Test NEG (NEG) Urine Opiates Screen Neg (Neg) Ur Methadone, Qual Neg (Neg) Urine Barbiturates Neg (Neg) Ur Phencyclidine (PCP) Neg (Neg) U Amphetamin/Meth Scrn Neg (Neg) MDMA (Ecstasy) Screen Neg (Neg) U Benzodiazepines Scrn Neg (Neg) Ur Cocaine Metabolite Neg (Neg) U Marijuana (THC) Screen Pos H (Neg) Imaging Data Radiologist's Impression: Preliminary Findings Only See Final Report For Complete Findings CT ABDOMEN & PELVIS With Contrast: Mild inflammatory changes around the pancreatic head suggestive of acute interstitial pancreatitis. Correlate with lipase levels. There are at least 3 intraparenchymal pseudocysts in the pancreatic head the largest measuring 1.9 cm on image 3-166. Mucosal thickening in the right hemicolon, possibly mild nonspecific colitis in the appropriate clinical setting. Cholecystectomy. MDM Narrative Physical exam and history were performed. Nursing notes, EMR, and Medication List were personally reviewed. Patient appears to have general abdominal pain bringing her to the ER tonight. IV access was established and labs were obtained. The patient was placed on the cardiac rehabilitation program director. She was given IV Tylenol, IV Benadryl, IV Compazine, and IM Bentyl. She was hydrated with normal saline. Because of her symptoms she was sent to CT scan for further evaluation. The patient's blood work is as above and was reviewed. She does have an elevated white blood cell count of 16,000. She does not have significant electrolyte imbalance. Her INR is 2.4. Transaminases are not diagnostic. The patient does have a markedly elevated lipase of greater than 20,000. CT scan was reviewed by myself and radiology, and does appear consistent with an acute pancreatitis. Because of this the patient was given 1 mg IV Dilaudid. The patient remained in stable condition while here in the ER. We did continue to hydrate her. I discussed the case with the on-call hospitalist, who agreed to admit the patient. Evidently the patient had significant reservation about being admitted, and it took several hours for her to make a definitive decision about signing out AMA versus coming into the hospital. Ultimately she did sign AMA paperwork, and only after her IV was removed and she was given discharge paperwork, did she decide to stay in the hospital. A second IV was placed and the hospitalist team was contacted once again. Please see their dictation for further patient course, plan, and disposition. The chart was completed utilizing [employer] Speech Voice Recognition Software. Grammatical errors, random word insertions, pronoun errors, and incomplete sentences are an occasional consequence of this system due to software limitations, ambient noise, and hardware issues. Any formal questions or concerns about the content, text, or information contained within the body of this dictation should be directly addressed to the provider for clarification. . Impression & Plan Acute pancreatitis, Abdominal pain, Nausea and vomiting Discharge Plan Visit Data *Final* Discharge Date/Time: 09/10/19 05:55 Chief Complaint: Chest Pain Stated Complaint: CHEST PAIN,STOMACH ED Provider: Narinder Leyva ED Midlevel Provider: Gilbert Aguilera Discharge Problem: Acute pancreatitis, Abdominal pain, Nausea and vomiting Patient Disposition: Admitted As Inpatient Condition: Fair Discharge Instructions Interventions: ED Discharge Assessment Last Done: 09/10/19 05:55 Discharge Problem: Acute pancreatitis Qualifiers: Pancreatitis type: unspecified pancreatitis type Acute pancreatitis complication: unspecified Qualified Code(s): K85.90 - Acute pancreatitis without necrosis or infection, unspecified
[2019-09-10] MEDS ORDERED: MAGNESIUM HYDROXIDE SUSP 30 ML UDC PO PRN (07:10)
[2019-09-10] MEDS ORDERED: clonazePAM 1 MG TAB PO PRN (07:10)
[2019-09-10] MEDS ORDERED: PROMETHAZINE HCL 25 MG TAB PO PRN (07:10)
[2019-09-10] MEDS ORDERED: ALUMINUM/MAGNESIUM SUSP 30 ML UDC PO PRN (07:10)
[2019-09-10] MEDS ORDERED: ONDANSETRON 4 MG TAB PO PRN (07:10)
[2019-09-10] MEDS ORDERED: SUMAtriptan succinate 100 MG TAB PO PRN (07:10)
--- NOTE | 2019-09-10 07:12 | CT Scan Report ---
CT abd pelvis IV con only CLINICAL HISTORY: generalized abd pains COMPARISON STUDY: 06/28/2019 TECHNIQUE: The patient was scanned in a dynamic helical fashion during intravenous and ministration o f 93 cc of Optiray 320. A dose lowering technique was utilized adhering to the principles of ALARA. CT DOSE: 337.67 mGy.cm FINDINGS: Lower chest: There are dependent atelectatic changes. Liver: The contrast-enhanced liver is normal in size, contour, and attenuation. There is no intrahepa tic biliary ductal dilatation. The hepatic veins and portal veins are patent. Gallbladder: Surgically absent Spleen: Normal in size and attenuation. Pancreas: There is mild edema surrounding the pancreatic head. There is an enlarging 17 mm cystic les ion within the pancreatic head. There is a persistent 11 mm cystic lesion at the pancreatic head neck junction. There is no significant pancreatic ductal dilatation. Adrenal glands: Unremarkable. Kidneys: There is symmetric renal cortical enhancement. The kidneys are normal in size without hydron ephrosis. Bowel: There are no transition zones indicate bowel obstruction. There is no evidence of acute divert iculitis. The appendix appears normal. There is borderline bowel wall thickening involving the right colon. Peritoneum: There is no intraperitoneal free air or abdominal ascites. Vasculature: The abdominal aorta is normal in course and caliber. Adenopathy: None. Pelvic viscera: There is an 18 mm left ovarian follicle Skeletal structures: No destructive osseous lesions are seen. IMPRESSION: 1. Stable 11 mm cystic lesion at the pancreatic head neck junction 2. Enlarging cystic lesion within the pancreatic head measuring 17 mm. 3. Subtle inflammatory changes around the pancreatic head consistent with acute interstitial pancreat itis. 4. The pancreatic cystic lesions while nonspecific likely represent pseudocysts. Short-term follow-up will be necessary. 5. No evidence of bowel obstruction. No evidence of free air 6. Borderline bowel wall thickening involving the right colon Electronically signed by: Willis Virgen M.D. 09/10/2019 7:11 AM
[2019-09-10] MEDS ORDERED: SODIUM CHLORIDE 0.9% 1000ML 1,000 ML IV ONE (07:30)
[2019-09-10] MEDS: ONDANSETRON INJ 2 MG/ML 2 ML VIAL IV PRN ×3 (07:44→20:20)
[2019-09-10] MEDS: PANCREAZE (LIPASE 10,500U) CAP PO SCH ×3 (08:02→16:00)
[2019-09-10] MEDS ORDERED: NSS + 20MEQ KCL 20 MEQ/1,000 ML BAG IV SCH (08:30)
[2019-09-10] MEDS: MAGNESIUM OXIDE 400 MG TAB PO SCH (08:40)
[2019-09-10] MEDS: FOLIC ACID 1 MG TAB PO SCH (08:40)
[2019-09-10] MEDS: BACLOFEN 10 MG TAB PO SCH ×4 (08:40→20:17)
[2019-09-10] MEDS: THIAMINE HCL 100 MG TAB PO SCH (08:40)
[2019-09-10] MEDS: CYANOCOBALAMIN 500 MCG TABLET (VITAMIN B-12) PO SCH ×2 (08:41→20:15)
[2019-09-10] MEDS: PANTOprazole 40 MG TAB PO SCH ×2 (08:41→20:15)
[2019-09-10] MEDS: MULTIVITAMIN TAB PO SCH (08:41)
[2019-09-10] MEDS: DICLOFENAC SOD 1% GEL 100 GM TUBE EXT SCH ×4 (09:23→20:15)
[2019-09-10] MEDS: HYDROmorphone INJ 0.5 MG/0.5 ML SYR IV PRN ×4 (10:15→22:26)
--- NOTE | 2019-09-10 10:51 | Gastrointestinal Consultation ---
Date of Consultation September 10, 2019 Assessment & Plan (1) Acute pancreatitis: (2) Pancreatic pseudocyst: Pt is a 38 y/o female w suspected ETOH pancreatitis w pseudocyst formation - CL diet - Continue LR @ 200ml/hr - Antiemetics and analgesics prn - Abstain from ETOH and marijuana products recommended - Plan for EUS eval in 4-6 weeks time Supervising Physician Co-Signing Physician Notes I saw and evaluated the patient. She presents with acute pancreatitis thought to be related to alcohol use. The patient reports that she still has epigastric pain but it is slowly improving. Imaging studies do show a 17 mm cyst in the pancreatic head. Physical examination No obvious distress Mild epigastric tenderness Impression: Patient admitted with acute pancreatitis thought to be related to alcohol use. Would recommend continued IV hydration over the next 24 hours. If the patient starts to improve then you could slowly advance her to a low-fat diet in the next 24 to 48 hours. We should plan to do a follow-up endoscopic ultrasound in about 6 to 8 weeks given the pancreatic cysts seen during the recent CT scan. History of Present Illness Reason for Consultation: Pancreatitis Requesting Physician: Dr. Armand Salgado Attending Physician: Dr. Lisset Perez History of Present Illness Pt is a 38 y/o female who presented w c/o epigastric abd pain associated w nausea, vomiting. She has hx of fatty liver, ? early cirrhosis changes, PVT on Coumadin, hx of ETOH abuse, recurrent pancreatitis w pseudocyst formation. She had abstained from ETOH since June but had 2 beers yesterday at lunch w a girlfriend. Pain started then. She denies any associated bowel habit changes. Upon eval noted, WBC up 16K, H/H normal, BUN/Cr, LFTs are normal. Lipase was >20K, down to 12K today. She had CT abd/pelvis which showed 11mm cystic lesion on pancreas head neck junction, enlarging cystic lesion within pancreas head 17mm, + inflammatory changes in pancreas head consistent w acute interstitial pancreatitis. No signs of bowel obstruction or free air. + borderline bowel wall thickening on R colon. This AM she is still c/o diffuse abd pain, no n/v this AM. Is passing flatus but no bowel movements. + ETOH intake yesterday after being abstinent since June. She does use medical marijuana, denies any new meds or other illicit drugs, herbal supplements, NSAIDs. EGD 10/4/19 - no signs of varices, gastritis, duodenitis. Last EUS in 2016 - gallbladder sludge; she is s/p cholecystectomy in 2018 Allergies Allergy/AdvReac Type Severity Reaction Status Date / Time buspirone [From BuSpar] Allergy Severe Unconscious, Verified 09/10/19 04:32 seizures quetiapine [From Seroquel] Allergy Severe Unconscious, Verified 09/10/19 04:32 seizures citalopram [From Celexa] AdvReac Intermediate Vomiting Verified 09/10/19 04:32 fluoxetine [From Prozac] AdvReac Intermediate VIOLENT Verified 09/10/19 04:32 VOMITING morphine AdvReac Intermediate "MAKES ME Verified 09/10/19 04:32 SICK(VOMITING)" vilazodone [From Viibryd] AdvReac Vomiting Verified 09/10/19 04:32 Home Medications Home Medications Medication Instructions Recorded Confirmed Type methocarbamol 500 mg tablet 500 mg PO BID PRN tab 03/16/19 09/10/19 History multivitamin 1 tab PO DAILY 03/18/19 09/10/19 History sumatriptan succinate 100 mg tablet 100 mg PO UD PRN #30 tab 04/28/19 09/10/19 Rx magnesium oxide 400 mg (241.3 mg 400 mg PO DAILY tab 06/01/19 09/10/19 History magnesium) tablet pantoprazole 40 mg tablet,delayed 40 mg PO BID #180 tab 06/28/19 09/10/19 Rx release ondansetron 4 mg disintegrating 4 mg PO Q6H #120 tab 06/29/19 09/10/19 Rx tablet Creon 3 cap PO AC #270 cap 07/03/19 09/10/19 Rx medroxyprogesterone 150 mg/mL 150 mg IM .COMPLEX #1 ml 07/12/19 09/10/19 Rx intramuscular suspension mirtazapine 15 mg tablet 15 mg PO HS #30 tab 08/04/19 09/10/19 Rx promethazine 25 mg tablet 25 mg PO TID PRN #30 tab 08/06/19 09/10/19 Rx clonazepam 1 mg tablet 1 mg PO QID PRN #30 tab 08/09/19 09/10/19 Rx cyanocobalamin (vitamin B-12) 500 500 mcg PO BID #60 tab 08/10/19 09/10/19 Rx mcg tablet thiamine HCl (vitamin B1) 100 mg 100 mg PO DAILY #30 tab 08/10/19 09/10/19 Rx tablet clindamycin phosphate 1 % topical 1 appln TOP BID #30 gm 08/30/19 09/10/19 Rx gel folic acid 1 mg tablet 1 mg PO QAM 30 Days #30 tab 09/02/19 09/10/19 Rx warfarin 5 mg tablet 5 mg PO DAILY 30 Days #30 tab 09/03/19 09/10/19 Rx baclofen 10 mg tablet 10 mg PO TID #30 tab 09/08/19 09/10/19 Rx diclofenac sodium 1 % topical gel 2 gm TOP QID #100 gm 09/08/19 09/10/19 Rx ondansetron 4 mg PO Q6H PRN #12 tab 09/10/19 Rx Patient History Medical History Acne Acute gallstone pancreatitis Back pain, chronic (Acute) Chronic neck pain (Acute) Depression with anxiety (Chronic) GERD (gastroesophageal reflux disease) Hiatal hernia (Chronic) Insomnia (Acute) 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 Gala Willett History of lumpectomy of right breast BENIGN History of tooth extraction Family History Father Family history of diabetes mellitus Myocardial infarction Stroke Hypertension Grandfather (Maternal) Family history of diabetes mellitus Grandmother (Maternal) Family history of diabetes mellitus Hypertension Cancer Mother Hypothyroidism Grandfather Cancer Heart problem Social History Preferred Language: French Communication Ability: Effective Visual Impairment: No Limitations Hearing Ability: Normal Retail Team Leader Required: No Beliefs That Will Affect Care: None marital status: Single Current Living Situation: Alone current occupational status: employed Feels Safe at Home: Yes Smoking Status: Current some day smoker Tobacco Type: cigarettes ; Cigarettes Per Day: 7 ; Second Hand Exposure: No ; Hx Alcohol Use: Yes Alcohol type: beer Hx Substance Use: Yes substance use type: marijuana and prescription drug Substance Use Type Other:: medically prescribed Last Used Substance: Unknown Childhood Exposure to Second-Hand Smoke: No Dental Care, Regularly: Yes Physical Activity Frequency: Does not Exercise Seatbelt Use: always Sunscreen Use: Yes Do you think of yourself as: straight/heterosexual Review of Systems Review of Systems: All systems reviewed & are unremarkable except as noted in HPI & below Physical Exam Constitutional: WD/WN, vitals as above + in distress (c/o abd pain) Eyes: PERRL, conjunctivae normal, anicteric sclerae ENMT: external ear and nose normal, oropharynx normal Respiratory: normal respiratory effort, lungs clear to auscultation Cardiovascular: RRR, no murmur, no edema Gastrointestinal (Abdomen): Inspection/Auscultation: normal bowel sounds Percussion/Palpation: + abdomen tender (diffuse) and abdomen soft Skin: no rashes, warm and dry no jaundice Psychiatric: A+Ox3, euthymic affect Lymphatic: no lymphedema Results & Data Vital Signs (Past 12 Hours) Vital Signs Temp Pulse Pulse Resp BP BP Pulse Ox 09/10/19 07:17 36.6 C 67 18 119/80 97 09/10/19 07:00 37.1 C 84 16 141/92 H 100 09/10/19 05:55 74 16 119/82 97 09/10/19 05:30 82 13 119/82 96 09/10/19 05:00 85 16 126/83 96 09/10/19 04:30 84 13 119/79 96 09/10/19 04:00 92 H 15 121/84 96 09/10/19 03:30 90 14 123/81 94 09/10/19 03:11 96 09/10/19 03:00 85 15 125/101 H 99 09/10/19 02:39 100 09/10/19 02:30 80 17 129/89 100 09/10/19 02:22 86 16 118/78 100 09/10/19 01:52 36.3 C L 91 H 24 137/92 100 (1) Acute pancreatitis Acute pancreatitis complication: unspecified Pancreatitis type: unspecified pancreatitis type Qualified Code(s): K85.90 - Acute pancreatitis without necrosis or infection, unspecified
[2019-09-10] MEDS: LACTATED RINGER'S 1,000 ML IV SCH ×3 (12:34→21:41)
[2019-09-10] MEDS: WARFARIN SOD 5 MG TAB PO SCH (16:01)
[2019-09-10] MEDS: MIRTAZAPINE TAB 15 MG TAB PO SCH (20:15)
[2019-09-11] MEDS: LACTATED RINGER'S 1,000 ML IV SCH ×5 (01:27→20:19)
[2019-09-11] MEDS: HYDROmorphone INJ 0.5 MG/0.5 ML SYR IV PRN ×5 (02:54→21:46)
[2019-09-11] MEDS: ONDANSETRON INJ 2 MG/ML 2 ML VIAL IV PRN ×3 (07:37→20:07)
[2019-09-11] MEDS: THIAMINE HCL 100 MG TAB PO SCH (07:40)
[2019-09-11] MEDS: BACLOFEN 10 MG TAB PO SCH ×3 (07:40→20:08)
[2019-09-11] MEDS: PANCREAZE (LIPASE 10,500U) CAP PO SCH ×3 (07:40→17:25)
[2019-09-11] MEDS: PANTOprazole 40 MG TAB PO SCH ×2 (07:40→20:08)
[2019-09-11] MEDS: MULTIVITAMIN TAB PO SCH (07:40)
[2019-09-11] MEDS: FOLIC ACID 1 MG TAB PO SCH (07:41)
[2019-09-11] MEDS: CYANOCOBALAMIN 500 MCG TABLET (VITAMIN B-12) PO SCH ×2 (07:41→20:08)
[2019-09-11] MEDS: MAGNESIUM OXIDE 400 MG TAB PO SCH (07:41)
[2019-09-11] MEDS: DICLOFENAC SOD 1% GEL 100 GM TUBE EXT SCH ×4 (07:42→20:08)
[2019-09-11 09:21] LABS: Basophils # (auto) 0.03 K/uL (0-0.2); Basophils % (auto) 0.3 %; Eosinophils # (auto) 0.37 K/uL (0-0.5); Eosinophils % (auto) 4.2 %; Hematocrit (blood only) 35.7 % (37-47); Hemoglobin 11.7 g/dL (12.0-16.0); Immature Granulocytes # (auto) 0.01 K/uL (0.00-0.02); Immature Granulocytes % (auto) 0.1 %; Lymphocytes # (auto) 2.06 K/uL (1.2-3.4); Lymphocytes % (auto) 23.5 %; Mean Corpuscular Hemoglobin 32.4 pg (25-34); Mean Corpuscular Hgb Conc 32.8 g/dL (32-36); Mean Corpuscular Volume 98.9 fL (80-100); Mean Platelet Volume 9.1 fL (7.4-10.4); Monocytes # (auto) 0.78 K/uL (0.11-0.59); Monocytes % (auto) 8.9 %; Neutrophils # (auto) 5.53 K/uL (1.4-6.5); Platelet Count 327 K/uL (130-400); RDW Coefficient of Variation 12.6 % (11.5-14.5); RDW Standard Deviation 45.8 fL (36.4-46.3); Red Blood Count 3.61 M/uL (4.2-5.4); White Blood Count 8.78 K/uL (4.8-10.8)
--- NOTE | 2019-09-11 09:39 | Gastroenterology Progress Note ---
Date of Service September 11, 2019 Supervising Physician Co-Signing Physician Notes Would continue current inpatient plan outpatient EUS will be scheduled for her - she will be contacted by our office for this to be scheduled. Advance diet as tolerated. Subjective No acute complaints She doesn't like her tray of food so not eating this morning pain is improved with a pain shot this am Review of Systems Review of Systems: All systems reviewed & are unremarkable except as noted in HPI & below Physical Exam Physical Exam: Well nourished fm in nad Constitutional: WD/WN, vitals as above Eyes: PERRL, conjunctivae normal, anicteric sclerae Respiratory: normal respiratory effort, lungs clear to auscultation Cardiovascular: RRR, no murmur, no edema Gastrointestinal (Abdomen): normal bowel sounds, soft, nontender, no hepatosplenomegaly Musculoskeletal: no cyanosis or clubbing, extremities motor strength 5/5 Skin: no rashes, warm and dry Neurologic: CN's II-XI intact bilaterally Results & Data Vital Signs (Past 12 Hours) Vital Signs Temp Pulse Resp BP Pulse Ox 09/11/19 07:29 36.9 C 69 19 139/83 97 09/11/19 03:28 37.1 C 72 15 120/80 94 09/10/19 23:30 37.1 C 83 15 126/80 97 CBC reviewed
[2019-09-11 09:42] LABS: INR 2.1 (0.9-1.1); Partial Thromboplastin Ratio 1.3; Partial Thromboplastin Time 34.8 Seconds (21.0-31.0)
[2019-09-11 10:02] LABS: Albumin Globulin Ratio 0.9 (0.9-2); Albumin Level 2.6 gm/dl (3.4-5.0); BUN Creatinine Ratio 6.2 (10-20); Bilirubin,Total 0.5 mg/dl (0.2-1); Calcium 8.3 mg/dl (8.5-10.1); Creatinine Clr Calc Pharmacy 132.9 ml/min; Est GFR (African American) 144.2; Est GFR (Non-African American) 124.4; Total Protein 5.6 gm/dl (6.4-8.2)
[2019-09-11] MEDS: WARFARIN SOD 5 MG TAB PO SCH (17:24)
--- NOTE | 2019-09-11 17:24 | Hospitalist Progress Note ---
Date of Service September 11, 2019 Assessment & Plan (1) Acute pancreatitis: Recurrent acute pancreatitis/alcohol abuse/history acute alcoholic pancreatitis/history of acute gallstone pancreatitis/pancreatic head pseudocyst- Continue normal saline plus KCl 20 mEq at 200 mils per hour. Initial lipase 20,030-->517 Discharge home tomorrow Advance diet as tolerated Pressure GI recommendations (2) Cirrhosis of liver: As noted above, and per gastroenterology (3) Alcohol abuse: Place on AWSS (4) Portal vein thrombosis: Continue warfarin. INR therapeutic at 2.4 (5) Pancreatic pseudocyst: As noted above. (6) Nausea and vomiting: Improving, continue Zofran 4 mg IV every 6 hours PRN (7) Abdominal pain: Improving , continue tramadol 50mg po q4h prn moderate pain Subjective Patient seen and examined at the bedside. No acute event overnight. She is improving slowly and she reports her abdominal pain with being little bit better. Patient denies fever, chills, chest pain, shortness of breath, significant abdominal pain, frequency, urgency, diarrhea. Tolerated a low-fat for today. Review of Systems Review of Systems: All systems reviewed & are unremarkable except as noted in HPI & below Physical Exam Constitutional: WD/WN, vitals as above + in distress (c/o abd pain) Eyes: PERRL, conjunctivae normal, anicteric sclerae ENMT: external ear and nose normal, oropharynx normal Respiratory: normal respiratory effort, lungs clear to auscultation Cardiovascular: RRR, no murmur, no edema Gastrointestinal (Abdomen): normal bowel sounds, soft, nontender, no hepatosplenomegaly Inspection/Auscultation: normal bowel sounds Percussion/Palpation: + abdomen tender (diffuse) and abdomen soft Musculoskeletal: no cyanosis or clubbing, extremities motor strength 5/5 Skin: no rashes, warm and dry no jaundice Neurologic: CN's II-XI intact bilaterally Psychiatric: A+Ox3, euthymic affect Lymphatic: no lymphedema Results & Data Vital Signs (Past 12 Hours) Vital Signs Temp Pulse Resp BP BP Pulse Ox 09/11/19 15:20 37.2 C 80 16 114/75 98 09/11/19 11:54 36.7 C 66 18 133/86 98 09/11/19 07:29 36.9 C 69 19 139/83 97 PG Care Time/CCT Total # of Minutes Spent Total Time Spent with Patient: Total time spent is greater than 50% in coordination of care (as documented) at patient's floor/unit and/or counseling patient: (1) Acute pancreatitis Acute pancreatitis complication: unspecified Pancreatitis type: unspecified pancreatitis type Qualified Code(s): K85.90 - Acute pancreatitis without necrosis or infection, unspecified
[2019-09-11] MEDS: POTASSIUM CHLORIDE 20 MEQ TABCR PO SCH (18:53)
[2019-09-11] MEDS: MIRTAZAPINE TAB 15 MG TAB PO SCH (20:08)
[2019-09-12] MEDS: LACTATED RINGER'S 1,000 ML IV SCH ×2 (01:27→06:38)
[2019-09-12] MEDS: HYDROmorphone INJ 0.5 MG/0.5 ML SYR IV PRN ×2 (02:11→06:41)
[2019-09-12 05:25] LABS: Basophils # (auto) 0.02 K/uL (0-0.2); Basophils % (auto) 0.2 %; Eosinophils # (auto) 0.39 K/uL (0-0.5); Eosinophils % (auto) 4.7 %; Hematocrit (blood only) 37.7 % (37-47); Hemoglobin 12.6 g/dL (12.0-16.0); Immature Granulocytes # (auto) 0.01 K/uL (0.00-0.02); Immature Granulocytes % (auto) 0.1 %; Lymphocytes # (auto) 2.29 K/uL (1.2-3.4); Lymphocytes % (auto) 27.5 %; Mean Corpuscular Hemoglobin 32.4 pg (25-34); Mean Corpuscular Hgb Conc 33.4 g/dL (32-36); Mean Corpuscular Volume 96.9 fL (80-100); Mean Platelet Volume 9.4 fL (7.4-10.4); Monocytes # (auto) 0.87 K/uL (0.11-0.59); Monocytes % (auto) 10.4 %; Neutrophils # (auto) 4.75 K/uL (1.4-6.5); Neutrophils % (auto) 57.1 %; Platelet Count 340 K/uL (130-400); RDW Coefficient of Variation 12.7 % (11.5-14.5); RDW Standard Deviation 44.6 fL (36.4-46.3); Red Blood Count 3.89 M/uL (4.2-5.4); White Blood Count 8.33 K/uL (4.8-10.8)
[2019-09-12 05:33] LABS: INR 1.9 (0.9-1.1); Prothrombin Time 18.8 Seconds (9.0-12.0)
[2019-09-12 05:56] LABS: Albumin Level 2.8 gm/dl (3.4-5.0); BUN Creatinine Ratio 4.1 (10-20); Calcium 8.8 mg/dl (8.5-10.1); Creatinine Clr Calc Pharmacy 117.9 ml/min; Est GFR (African American) 138.6; Est GFR (Non-African American) 119.6; Potassium 3.8 mmol/L (3.5-5.1)
[2019-09-12 05:59] LABS: Albumin Globulin Ratio 0.9 (0.9-2); Bilirubin,Total 0.4 mg/dl (0.2-1); Total Protein 5.8 gm/dl (6.4-8.2)
[2019-09-12] MEDS: PANCREAZE (LIPASE 10,500U) CAP PO SCH (06:39)
[2019-09-12 07:47] VITALS: BP 136/81; PULSE 70; TEMP 98.4; O2SAT 96
[2019-09-12] MEDS: THIAMINE HCL 100 MG TAB PO SCH (09:28)
[2019-09-12] MEDS: POTASSIUM CHLORIDE 20 MEQ TABCR PO SCH (09:28)
[2019-09-12] MEDS: FOLIC ACID 1 MG TAB PO SCH (09:28)
[2019-09-12] MEDS: MULTIVITAMIN TAB PO SCH (09:29)
[2019-09-12] MEDS: BACLOFEN 10 MG TAB PO SCH (09:29)
[2019-09-12] MEDS: CYANOCOBALAMIN 500 MCG TABLET (VITAMIN B-12) PO SCH (09:29)
[2019-09-12] MEDS: DICLOFENAC SOD 1% GEL 100 GM TUBE EXT SCH (09:29)
[2019-09-12] MEDS: PANTOprazole 40 MG TAB PO SCH (09:29)
[2019-09-12] MEDS: MAGNESIUM OXIDE 400 MG TAB PO SCH (09:30)
--- NOTE | 2019-09-12 09:34 | Gastroenterology Progress Note ---
Date of Service September 12, 2019 Supervising Physician Co-Signing Physician Notes Admitted with pancreatitis- clinically improving Outpatient EUS will be arranged for her in 4-6 weeks (the [facility] GI office will contact her to schedule) OK to dc home from a gi perspective. Subjective no acute complaints Pain is improved Moving her bowels Feels like she pulled a muscle in her left upper chest Review of Systems Review of Systems: All systems reviewed & are unremarkable except as noted in HPI & below Physical Exam Physical Exam: Well nourished female in nad Constitutional: WD/WN, vitals as above well developed and well nourished; no acute distress Eyes: PERRL, conjunctivae normal, anicteric sclerae Gastrointestinal (Abdomen): normal bowel sounds, soft, nontender, no hepatosplenomegaly Skin: no rashes, warm and dry Neurologic: CN's II-XI intact bilaterally Psychiatric: A+Ox3, euthymic affect Results & Data Vital Signs (Past 12 Hours) Vital Signs Temp Pulse Resp BP Pulse Ox 09/12/19 07:46 36.9 C 70 18 136/81 96 09/11/19 23:27 36.7 C 77 18 114/76 95 labs reviewed - no signficant changes no new imaging
--- NOTE | 2019-09-12 11:47 | Hospitalist Progress Note ---
Date of Service September 12, 2019 Assessment & Plan (1) Acute pancreatitis: Recurrent acute pancreatitis/alcohol abuse/history acute alcoholic pancreatitis/history of acute gallstone pancreatitis/pancreatic head pseudocyst- Continue normal saline plus KCl 20 mEq at 200 mils per hour. Initial lipase 20,030-->517-->278 Discharge home today Left upper chest pain is atypical and resolved. Tolerated low-fat without issues Follow-up GI recommendations, and outpatient follow-up Follow-up with PCP within 7 days. (2) Cirrhosis of liver: As noted above, and per gastroenterology (3) Alcohol abuse: Place on AWSS (4) Portal vein thrombosis: Continue warfarin. INR subtherapeutic 1.9. Possibly patient missed the dose. Continue currently prescribed warfarin 5 mg p.o. daily and follow-up with Coumadin clinic within 3 days with new INR result. Adjust warfarin as needed per Coumadin clinic to achieve therapeutic INR of 2-3 for portal vein thrombosis. (5) Pancreatic pseudocyst: As noted above. (6) Nausea and vomiting: Improving, continue Zofran 4 mg IV every 6 hours PRN (7) Abdominal pain: Improving , continue tramadol 50mg po q4h prn moderate pain Subjective Pt is seen and examined at the bedside. No acute event over night. She is feeling much better. Patient had bowel movements. She complained of atypical left upper chest pain but that is now better. Patient denies fever, chills, abdominal pain, frequency, urgency, hematuria, dysuria. Review of Systems Review of Systems: All systems reviewed & are unremarkable except as noted in HPI & below Physical Exam Constitutional: WD/WN, vitals as above well developed Eyes: PERRL, conjunctivae normal, anicteric sclerae ENMT: external ear and nose normal, oropharynx normal Neck: trachea midline, no thyromegaly Respiratory: normal respiratory effort, lungs clear to auscultation Cardiovascular: RRR, no murmur, no edema Vessels: dorsalis pedis pulses present Gastrointestinal (Abdomen): normal bowel sounds, soft, nontender, no hepatosplenomegaly Inspection/Auscultation: normal bowel sounds Percussion/Palpation: abdomen soft Musculoskeletal: no cyanosis or clubbing, extremities motor strength 5/5 Skin: no rashes, warm and dry Neurologic: patellar DTR's 2+ bilat, sensation intact CN's II-XI intact bilaterally Psychiatric: A+Ox3, euthymic affect Genitourinary: no vaginal lesions, no adnexal mass Lymphatic: no cervical or axillary lymphadenopathy Results & Data Vital Signs (Past 12 Hours) Vital Signs Temp Pulse Resp BP Pulse Ox 09/12/19 07:46 36.9 C 70 18 136/81 96 PG Care Time/CCT Total # of Minutes Spent Total Time Spent with Patient: Total time spent is greater than 50% in coordination of care (as documented) at patient's floor/unit and/or counseling patient: (1) Acute pancreatitis Acute pancreatitis complication: unspecified Pancreatitis type: unspecified pancreatitis type Qualified Code(s): K85.90 - Acute pancreatitis without necrosis or infection, unspecified
--- NOTE | 2019-09-12 11:49 | Discharge Summary ---
Date of Service September 12, 2019 Admission HPI Per Admitting Provider The patient is a 38-year-old female with a past medical history including alcoholic liver cirrhosis, alcohol abuse, portal vein thrombosis, alcoholic pancreatitis, depression with anxiety, PTSD, hiatal hernia, peptic ulcer disease and migraines. She reports that she had not been drinking for a while, but went to lunch with a girlfriend today and had 2 drinks, and developed severe pain shortly thereafter. In the emergency department, patient underwent laboratories showing a lipase of 20,030, and CT of abdomen pelvis suggestive of acute interstitial pancreatitis with at least 3 intra-parenchymal pancreatic ps eudocysts. Principal Diagnosis none Discharge Exam Constitutional WD/WN, vitals as above well developed Eyes PERRL, conjunctivae normal, anicteric sclerae ENMT external ear and nose normal, oropharynx normal Neck trachea midline, no thyromegaly Respiratory normal respiratory effort, lungs clear to auscultation Cardiovascular RRR, no murmur, no edema Vessels: dorsalis pedis pulses present Gastrointestinal (Abdomen) normal bowel sounds, soft, nontender, no hepatosplenomegaly Inspection/Auscultation: normal bowel sounds Percussion/Palpation: abdomen soft Musculoskeletal no cyanosis or clubbing, extremities motor strength 5/5 Skin no rashes, warm and dry no jaundice Neurologic patellar DTR's 2+ bilat, sensation intact CN's II-XI intact bilaterally Psychiatric A+Ox3, euthymic affect Genitourinary no vaginal lesions, no adnexal mass Lymphatic no cervical or axillary lymphadenopathy no lymphedema Discharge Data Allergies Allergy/AdvReac Type Severity Reaction Status Date / Time buspirone [From BuSpar] Allergy Severe Unconscious, Verified 09/10/19 04:32 seizures quetiapine [From Seroquel] Allergy Severe Unconscious, Verified 09/10/19 04:32 seizures citalopram [From Celexa] AdvReac Intermediate Vomiting Verified 09/10/19 04:32 fluoxetine [From Prozac] AdvReac Intermediate VIOLENT Verified 09/10/19 04:32 VOMITING morphine AdvReac Intermediate "MAKES ME Verified 09/10/19 04:32 SICK(VOMITING)" vilazodone [From Viibryd] AdvReac Vomiting Verified 09/10/19 04:32 Consultations 09/10/19 04:38 ED Decision to Admit Stat 09/10/19 07:10 Consult Gastroenterology Routine Ordered Studies 09/10/19 02:05 CT abd pelvis IV con only Urgent Hospital Course (1) Acute pancreatitis: Recurrent acute pancreatitis/alcohol abuse/history acute alcoholic pancre atitis/history of acute gallstone pancreatitis/pancreatic head pseudocyst- Continue normal saline plus KCl 20 mEq at 200 mils per hour. Initial lipase 20,030-->517-->278 Discharge home today Left upper chest pain is atypical and resolved. Tolerated low-fat without issues Follow-up GI recommendations, and outpatient follow-up Follow-up with PCP within 7 days. (2) Cirrhosis of liver: As noted above, and per gastroenterology (3) Alcohol abuse: Place on SS (4) Portal vein thrombosis: Continue warfarin. INR subtherapeutic 1.9. Possibly patient missed the dose. Continue currently prescribed warfarin 5 mg p.o. daily and follow-up with Coumadin clinic within 3 days with new INR result. Adjust warfarin as needed per Coumadin clinic to achieve therapeutic INR of 2-3 for portal vein thrombosis. (5) Pancreatic pseudocyst: As noted above. (6) Nausea and vomiting: Improving, continue Zofran 4 mg IV every 6 hours PRN (7) Abdominal pain: Improving , continue tramadol 50mg po q4h prn moderate pain Total Time Total Time Spent Total Time Spent (In Minutes): over 30 min Discharge Plan Discharge Items Patient Disposition: Home - Self-Care Reason For Visit: PANCREATITIS Discharge Diagnosis: ACUTE ON CHRONIC PANCREATITIS Condition on Discharge: Good Health Concerns: Slightly Subtherapeutic INR of 1.9, needs to continue Warfarin 5 mg PO daily and follow up with Coumadin Clinic within 3 days. Activity: Resume your previous activity Non-emergency contact: Primary Care Provider and Railroad Inspector Call non-emergency contact if: you have any medication questions, your symptoms worsen, your pain is not controlled, your pain is worsening, your pain is unusual for you, your pain is concerning for you, you have a fever, your temperature is above 101 and your temperature is above 101.5 Follow-up/Referrals: Diane Sorenson MD [Primary Care Provider] - Diet: Low Fat Addtl Attending Provider Instructions: Please follow up with property damage claims adjustor as scheduled. Follow up with PCP within 7 days. Continue Warfarin as prescribed and follow up with warfarin clinic within next 3 days. Your INR is 1.9-slightly subtherapeutic today and needs to be between 2-3. Pending Studies at Discharge: No Stand-Alone Forms: Call Back Authorization, My [facility], Smoking Cessation Medications and DC Order Prescriptions: New ondansetron 4 mg tablet,disintegrating 4 mg PO Q6H PRN (Reason: nausea and vomiting) Qty: 12 RF: 0 Continued warfarin 5 mg tablet 5 mg PO DAILY 30 Days Qty: 30 RF: 0 sumatriptan succinate [Imitrex] 100 mg tablet 100 mg PO UD PRN (Reason: Migraine Headache) Qty: 30 RF: 5 pantoprazole [Protonix] 40 mg tablet,delayed release (DR/EC) 40 mg PO BID Qty: 180 RF: 0 ondansetron 4 mg tablet,disintegrating 4 mg PO Q6H Qty: 120 RF: 1 mirtazapine 15 mg tablet 15 mg PO HS Qty: 30 RF: 0 promethazine 25 mg tablet 25 mg PO TID PRN (Reason: nausea) Qty: 30 RF: 0 clonazepam 1 mg tablet 1 mg PO QID PRN (Reason: anxiety) Qty: 30 RF: 0 cyanocobalamin (vitamin B-12) [Vitamin B-12] 500 mcg tablet 500 mcg PO BID Qty: 60 RF: 5 thiamine HCl (vitamin B1) [Vitamin B-1] 100 mg tablet 100 mg PO DAILY Qty: 30 RF: 5 clindamycin phosphate 1 % gel 1 appln TOP BID Qty: 30 RF: 5 magnesium oxide 400 mg (241.3 mg magnesium) tablet 400 mg PO DAILY RF: 0 medroxyprogesterone 150 mg/mL suspension 150 mg IM .COMPLEX Qty: 1 RF: 4 folic acid 1 mg tablet 1 mg PO QAM 30 Days Qty: 30 RF: 1 diclofenac sodium 1 % gel 2 gm TOP QID Qty: 100 RF: 2 baclofen 10 mg tablet 10 mg PO TID Qty: 30 RF: 2 multivitamin Tablet 1 tab PO DAILY RF: 0 Creon 36,000-114,000- 180,000 unit Capsule,Delayed Release(Dr/Ec) 3 cap PO AC Qty: 270 RF: 0 Discontinued methocarbamol 500 mg tablet 500 mg PO BID PRN (Reason: PAIN) RF: 0 Hold Instructions: Home Medication placed on hold at Doctor's office Discharge Orders: Discharge Order (Routine); Ordered 09/12/19 Ordered By: Kori Anderson Admission Data Admit Date/Time: 09/10/19 05:25 Attending Provider: Kori Anderson Admit Provider: Arnoldo Gore Primary Care Provider: Diane Sorenson Other Providers: Arnoldo Gore ; Gala Willett
[2019-09-12 13:34] LABS: Marijuana Quant, GCMS Urine 1090 ng/mL (<5)
== END 2019-09-12 12:27 | disposition home or self-care (01) | DRG 438 ==
LOC: ED 01:44 → 3W 05:25 → SUATTDRO 05:25 → 3W 05:55
DX: Z82.49 Family history of ischemic heart disease and other diseases of the circulatory system; Z88.8 Allergy status to other drugs, medicaments and biological substances; K86.3 Pseudocyst of pancreas; K85.20 Alcohol induced acute pancreatitis without necrosis or infection; F41.8 Other specified anxiety disorders; I81 Portal vein thrombosis; F10.20 Alcohol dependence, uncomplicated; Z88.5 Allergy status to narcotic agent; F43.10 Post-traumatic stress disorder, unspecified; Z79.01 Long term (current) use of anticoagulants; F17.210 Nicotine dependence, cigarettes, uncomplicated; K70.30 Alcoholic cirrhosis of liver without ascites; Z83.3 Family history of diabetes mellitus; F12.90 Cannabis use, unspecified, uncomplicated

== ENCOUNTER 2019-11-12 18:13 | Inpatient (IN) ==
[2019-11-12] MEDS ORDERED: SODIUM CHLORIDE 0.9% 1000ML 1,000 ML IV ONE (19:01)
[2019-11-12] MEDS ORDERED: DiphenhydrAMINE HCL 50 MG/ML VIAL IV STA (19:06)
[2019-11-12] MEDS ORDERED: METOCLOPRAMIDE HCL INJ 5 MG/ML 2 ML VIAL IV STA (19:06)
[2019-11-12] MEDS ORDERED: FAMOTIDINE 20MG IV PUSH 20 MG/5 ML SYR IV STA (19:06)
--- NOTE | 2019-11-12 19:29 | XRay Report ---
SINGLE VIEW CHEST CLINICAL HISTORY: Atypical chest pain. FINDINGS: An AP, portable, upright chest radiograph is compared to study dated 06/28/2019. The cardiom ediastinal silhouette is unremarkable. The lungs and pleural spaces are clear. No pneumothorax is see n. The bony thorax is grossly intact. IMPRESSION: No active disease in the chest. ACT 112: Negative or not required by law. Electronically signed by: Austin Hines M.D. 11/12/2019 7:28 PM
[2019-11-12 19:52] LABS: Basophils # (auto) 0.01 K/uL (0-0.2); Basophils % (auto) 0.1 %; Hematocrit (blood only) 41.9 % (37-47); Hemoglobin 14.3 g/dL (12.0-16.0); Immature Granulocytes % (auto) 0.7 %; Lymphocytes # (auto) 2.18 K/uL (1.2-3.4); Lymphocytes % (auto) 15.6 %; Mean Corpuscular Hemoglobin 32.4 pg (25-34); Mean Corpuscular Hgb Conc 34.1 g/dL (32-36); Mean Platelet Volume 9.3 fL (7.4-10.4); Monocytes # (auto) 1.44 K/uL (0.11-0.59); Monocytes % (auto) 10.3 %; Neutrophils # (auto) 10.23 K/uL (1.4-6.5); Neutrophils % (auto) 73.3 %; Platelet Count 285 K/uL (130-400); RDW Coefficient of Variation 13.2 % (11.5-14.5); RDW Standard Deviation 45.9 fL (36.4-46.3); Red Blood Count 4.41 M/uL (4.2-5.4); White Blood Count 13.96 K/uL (4.8-10.8)
[2019-11-12 20:07] LABS: Appearance Urine Cloudy (Clear); Bacteria Urine Automated 1+ (Negative); Bilirubin Urine Negative (Negative); Blood Urine Trace (Negative); Color Urine Dark Yellow; Epithelial Cell Urine Auto >30 /lpf (0-5); Glucose Urine UA Negative (Negative); Ketones Urine Negative (Negative); Leukocyte Esterase Urine Negative (Negative); Nitrite Urine Negative (Negative); Protein Urine Trace (Negative); Specific Gravity Urine 1.031 (1.000-1.030); Urobilinogen Urine Negative (Negative)
[2019-11-12 20:14] LABS: Partial Thromboplastin Ratio 1.4; Prothrombin Time 72.4 Seconds (9.0-12.0)
[2019-11-12 20:16] LABS: Alanine Aminotransferase 40 U/L (12-78); Albumin Level 3.5 gm/dl (3.4-5.0); Aspartate Aminotransferase 38 U/L (15-37); BUN Creatinine Ratio 25.5 (10-20); Bilirubin Direct < 0.1 mg/dl (0-0.2); Blood Urea Nitrogen 19 mg/dl (7-18); Calcium 8.8 mg/dl (8.5-10.1); Carbon Dioxide 27 mmol/L (21-32); Chloride 103 mmol/L (98-107); Creatinine Clr Calc Pharmacy 83.3 ml/min; Est GFR (African American) 116.4; Est GFR (Non-African American) 100.4; Glucose 120 mg/dl (70-99); Lipase 704 U/L (73-393); Magnesium 2.1 mg/dl (1.8-2.4); Potassium 3.1 mmol/L (3.5-5.1); Pregnancy Test, Serum Negative (Negative); Sodium 139 mmol/L (136-145)
[2019-11-12 20:18] LABS: INR 8.2 (0.9-1.1)
[2019-11-12 20:24] LABS: Albumin Globulin Ratio 1.1 (0.9-2); Alkaline Phosphatase 111 U/L (45-117); Bilirubin,Total 0.5 mg/dl (0.2-1); Globulin 3.3 gm/dl (2.5-4.0); Phosphorus 2.5 mg/dl (2.5-4.9); Total Protein 6.8 gm/dl (6.4-8.2); Troponin I < 0.015 ng/ml (0-0.045)
[2019-11-12] MEDS ORDERED: IOVERSOL 100ml IV PRN (20:46)
--- NOTE | 2019-11-12 21:12 | CT Scan Report ---
CT SCAN OF THE ABDOMEN AND PELVIS WITH IV CONTRAST CLINICAL HISTORY: Upper abdominal pain. COMPARISON STUDY: Abdominal CT dated 09/10/2019. TECHNIQUE: Following the IV administration of 94 cc of Optiray 320, CT scan of the abdomen and pelvi s is performed from the lung bases to the proximal femora. Images are reviewed in the axial, sagittal , and coronal planes. IV contrast was administered without complication. A dose lowering technique wa s utilized adhering to the principles of ALARA. CT DOSE: 304.99 mGy.cm FINDINGS: Lung bases: The heart is normal in size and without pericardial effusion. The lung bases are clear no ting dependent atelectasis. Liver: The contrast-enhanced liver is enlarged, measuring 20.1 cm in length. Hepatic attenuation is s lightly heterogeneous.. There is no intrahepatic biliary ductal dilatation. The hepatic veins and por raoul veins are patent. Gallbladder: Surgically absent noting clips in the gallbladder fossa. Spleen: Normal in size and attenuation. Pancreas: There is inflammatory stranding identified around the pancreas, greatest involving the panc reatic head and neck. There is heterogeneously diminished enhancement of the pancreatic head and neck . The pancreatic cystic lesions seen on 06/28/2019 are no longer well-visualized. The pancreatic duct is normal in caliber. No organized peripancreatic fluid collection is identified on today's examinati on. The splenic vein is patent. Adrenal glands: Unremarkable. Kidneys: The contrast enhanced kidneys are normal in size and without hydronephrosis. The kidneys enh ance symmetrically. Small nonobstructing renal calculi are noted. Abdominal vasculature: The abdominal aorta is normal in course and caliber noting scattered foci of a therosclerotic calcification. Bowel: There is no bowel obstruction. Moderate fecal retention is noted in the colon. The appendix is well-visualized and normal. Peritoneum: There is no intraperitoneal free air or abdominal ascites. There is a small fat-containin g umbilical hernia. A naval piercing is noted. Lymphadenopathy: None. Pelvic viscera: The bladder is normal as visualized. Uterine fibroids are suspected. No adnexal lesio n is seen. Small ovarian follicles are incidentally noted. Skeletal structures: No lytic or blastic lesions are seen. IMPRESSION: 1. Findings are consistent with acute pancreatitis. 2. There is heterogeneously diminished perfusion of the pancreatic head and neck. Necrotizing pancrea titis is not excluded. 3. Small pancreatic cystic foci seen on prior examinations are no longer well delineated. 4. The liver is enlarged and mildly heterogeneous. 5. Suspect uterine fibroids. 6. Additional findings as above. ACT 112: Negative or not required by law. Electronically signed by: Austin Hines M.D. 11/12/2019 9:11 PM
[2019-11-12] MEDS ORDERED: MoRPHine SULFATE 10 MG/ML CARP/VIAL IV STA (22:19)
[2019-11-12] MEDS ORDERED: PROCHLORPERAZINE 2 ML IV ONE (22:19)
[2019-11-12] MEDS ORDERED: CAPSAICIN CR 0.075% 60 GM TUBE EXT STA ×2 (22:21→22:39)
--- NOTE | 2019-11-12 23:50 | Emergency Department Note ---
Entered by Sonido Cabello acting as a scribe for Bunny Israel MD History of Present Illness General Chief complaint: Abdominal Pain Stated complaint: SEVERE STOMACH PAIN, CHEST PAIN Time Seen by Provider: 11/12/19 18:45 Source: patient History of Present Illness Onset (ago): hour(s) 5 Location: abdomen Pain Consistency: + other (worsening) Maximum Pain Intensity: 10 Relieved By: + none Associated symptoms: + denies other symptoms (diarrhea), + nausea/vomiting and + shortness of breath; no fever/chills The patient is a 38 year old F who presents to the Emergency Room with co mplaints of worsening abdominal pain that started 5 hours ago. The patient states that yesterday, she had an emotional breakdown due to stress. She notes that she woke up today feeling normal. She adds that her pain started 5 hours ago. She notes that the last time she ate was yesterday. She adds that this is normal for her. She states that she is also currently experiencing shortness of breath, vomiting, and nausea. She denies currently experiencing a fever, chills, and diarrhea. She states that she has a history of a clot in her portal vein. She adds that she was diagnosed on June 2019. She notes that she does not know what caused her clot. She states that she is currently on Coumadin. She notes that her Coumadin check, last Friday, revealed an INR level of 2.9. She states that her INR level was 8.9 today. She notes that she fell, one month ago, on her driveway but no falls recently. She adds that she has a history of pancreatitis, a cholecystectomy, alcohol use, smoking, and medical marijuana use. She states that she only drinks alcohol socially. She adds that she uses medical marijuana once per day. Home Medications Home Medications Medication Instructions Recorded Confirmed Type multivitamin 1 tab PO DAILY 03/18/19 11/12/19 History clonazepam 0.5 mg PO TID PRN 11/10/19 11/12/19 History folic acid 1 mg PO DAILY 11/10/19 11/12/19 History [id number] [Creon] 3 cap PO TID PRN 11/10/19 11/12/19 History mecobalamin (vitamin B12) [B12 1,000 mcg PO PM 11/10/19 11/12/19 History Active] medroxyprogesterone 150 mg IM Q16W 11/10/19 11/12/19 History mirtazapine 15 mg PO HS 11/10/19 11/12/19 History omeprazole 10 mg PO DAILY 11/10/19 11/12/19 History oxycodone-acetaminophen [Percocet] 1 tab PO BID PRN 11/10/19 11/12/19 History promethazine 25 mg PO DAILY PRN 11/10/19 11/12/19 History warfarin 5 mg PO DAILY 11/10/19 11/12/19 History Allergies Allergy/AdvReac Type Severity Reaction Status Date / Time buspirone [From BuSpar] Allergy Severe Unconscious, Verified 11/12/19 18:56 seizures quetiapine [From Seroquel] Allergy Severe Unconscious, Verified 11/12/19 18:56 seizures citalopram [From Celexa] AdvReac Intermediate Vomiting Verified 11/12/19 18:56 fluoxetine [From Prozac] AdvReac Intermediate VIOLENT Verified 11/12/19 18:56 VOMITING morphine AdvReac Intermediate "MAKES ME Verified 11/12/19 18:56 SICK(VOMITING)" vilazodone [From Viibryd] AdvReac Vomiting Verified 11/12/19 18:56 Past Med/Surg History Medical History Acne Acute gallstone pancreatitis (Resolved) Acute pancreatitis (Inactive) Alcohol abuse Back pain, chronic (Acute) Chronic neck pain (Acute) Depression with anxiety (Chronic) GERD (gastroesophageal reflux disease) Hiatal hernia (Chronic) Insomnia (Acute) 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 Gala Willett History of lumpectomy of right breast BENIGN History of tooth extraction Family History Father Family history of diabetes mellitus Myocardial infarction Stroke Hypertension Grandfather (Maternal) Family history of diabetes mellitus Grandmother (Maternal) Family history of diabetes mellitus Hypertension Cancer Mother Hypothyroidism Grandfather Cancer Heart problem Denies family history of Ovarian cancer Prostate cancer Breast cancer Colorectal cancer Social History Preferred Language: Yemeni Communication Ability: Effective Visual Impairment: No Limitations Hearing Ability: Normal Creel Operator Required: No Beliefs That Will Affect Care: None marital status: Single Current Living Situation: Family current occupational status: employed Other Information That Helps Us Care for You: No Feels Safe at Home: Yes Safety Concerns: Feels Safe At This Time Smoking Status: Unknown if ever smoked Hx Alcohol Use: No Hx Substance Use: No Childhood Exposure to Second-Hand Smoke: No Dental Care, Regularly: Yes Physical Activity Frequency: Does not Exercise Seatbelt Use: always Sunscreen Use: Yes Do you think of yourself as: straight/heterosexual Review of Systems See HPI for pertinent positives & negatives. and A total of 10 systems reviewed and were otherwise negative Physical Exam Vital Signs Vital Signs - 24 hr 11/12/19 18:28 11/12/19 20:06 11/12/19 21:00 Temperature 37.5 C Temperature Source Oral Pulse Rate 57 L 47 L Pulse Rate [Apical] Pulse Rate from SpO2 Sensor 48 L Pulse Rhythm Regular Pulse Strength Normal Respiratory Rate 22 21 Respiratory Effort / Characteristics Non-Labored Spontaneous Respiratory Depth Normal Respiratory Pattern Regular Blood Pressure 147/95 H 158/94 H Blood Pressure [Left Arm] Blood Pressure Mean 112 104 Blood Pressure Mean [Left Arm] Blood Pressure Position Sitting Pulse Oximetry 99 98 98 Oxygen Delivery Method Room Air Room Air Sepsis Recent Fever Within 48 Hours No Sepsis New/Unexplained Change in Mental Status No Sepsis Action Taken by Nursing No Action Required 11/12/19 22:28 11/12/19 23:00 Temperature Temperature Source Pulse Rate Pulse Rate [Apical] 52 L 50 L Pulse Rate from SpO2 Sensor Pulse Rhythm Pulse Strength Respiratory Rate 17 18 Respiratory Effort / Characteristics Respiratory Depth Normal Respiratory Pattern Blood Pressure Blood Pressure [Left Arm] 164/83 H 140/86 Blood Pressure Mean Blood Pressure Mean [Left Arm] 110 104 Blood Pressure Position Pulse Oximetry 99 94 Oxygen Delivery Method Room Air Room Air Sepsis Recent Fever Within 48 Hours Sepsis New/Unexplained Change in Mental Status Sepsis Action Taken by Nursing GENERAL: Awake, alert, uncomfortable-appearing, in NAD. HENT: Normocephalic, atraumatic. Oropharynx with dry mucous membranes and other mcgrath unremarkable. EYES: Normal conjunctiva. Sclera non-icteric. NECK: Supple. No nuchal rigidity. FROM. No JVD. RESPIRATORY: CTAB CARDIAC: Regular rate, normal rhythm. Extremities warm and well perfused. Pulses equal. ABDOMEN: Soft, non-distended. Mild epigastric tenderness to palpation. No reboun d or guarding. No masses. RECTAL: Deferred. MUSCULOSKELETAL: Chest examination reveals no tenderness. The back is symmetrical on inspection without obvious abnormality. There is no CVA tenderness to palpation. No joint edema. LOWER EXTREMITIES: Calves are equal size bilaterally and non-tender. No edema. No discoloration. NEURO: Normal sensorium. No sensory or motor deficits noted. SKIN: No rash or jaundice noted. Course Course 1853: The patient was evaluated in room C5. A complete history and physical exam was performed. 2312: I reviewed the patient's case with Dr. Bojorquez, [facility] Hospitalist. He will evaluate the patient for further management. Administered Medications Clonazepam (Klonopin) 0.5 mg PO TID PRN PRN Reason: anxiety Stop: 12/13/19 11:59 Last Admin: 11/13/19 12:53 Dose: 0.5 mg Documented by: [id number] Hydromorphone HCl (Dilaudid) 0.5 mg IV Q3H PRN PRN Reason: Moderate Pain Stop: 11/27/19 01:27 Last Admin: 11/13/19 22:33 Dose: 0.5 mg Documented by: [id number] Hydromorphone HCl (Dilaudid) 1 mg IV Q3H PRN PRN Reason: Severe Pain Stop: 11/27/19 01:27 Last Admin: 11/13/19 14:50 Dose: 1 mg Documented by: [id number] Admin: 11/13/19 10:10 Dose: 1 mg Documented by: [id number] Admin: 11/13/19 06:16 Dose: 1 mg Documented by: [id number] Admin: 11/13/19 02:22 Dose: 1 mg Documented by: [id number] Lactated Ringer's (Lr) 1,000 mls @ 250 mls/hr IV .Q4H CIRO Stop: 12/13/19 01:27 Last Admin: 11/14/19 00:46 Dose: 250 mls/hr Documented by: [id number] Infusion: 11/14/19 00:28 Dose: 250 mls/hr Documented by: [id number] Admin: 11/13/19 20:28 Dose: 250 mls/hr Documented by: [id number] Infusion: 11/13/19 20:28 Dose: 250 mls/hr Documented by: [id number] Admin: 11/13/19 16:33 Dose: 250 mls/hr Documented by: [id number] Infusion: 11/13/19 16:33 Dose: 250 mls/hr Documented by: [id number] Admin: 11/13/19 13:03 Dose: 250 mls/hr Documented by: [id number] Infusion: 11/13/19 13:00 Dose: 250 mls/hr Documented by: [id number] Admin: 11/13/19 09:00 Dose: 250 mls/hr Documented by: [id number] Infusion: 11/13/19 09:00 Dose: 250 mls/hr Documented by: [id number] Admin: 11/13/19 06:14 Dose: 250 mls/hr Documented by: [id number] Infusion: 11/13/19 06:11 Dose: 250 mls/hr Documented by: [id number] Admin: 11/13/19 02:11 Dose: 250 mls/hr Documented by: [id number] Famotidine 20 mg/ Syringe 5 mls @ 2.5 mls/min IV BID CIRO Stop: 12/13/19 01:27 Last Admin: 11/13/19 20:29 Dose: 2.5 mls/min Documented by: [id number] Admin: 11/13/19 08:59 Dose: 2.5 mls/min Documented by: [id number] Admin: 11/13/19 02:22 Dose: 2.5 mls/min Documented by: [id number] Ketorolac Tromethamine (Toradol) 15 mg IV Q6H PRN PRN Reason: Mild pain/fever Stop: 11/18/19 01:27 Last Admin: 11/13/19 20:28 Dose: 15 mg Documented by: [id number] Mirtazapine (Remeron) 15 mg PO HS CIRO Stop: 12/13/19 20:59 Last Admin: 11/13/19 20:29 Dose: 15 mg Documented by: [id number] Ondansetron HCl (Zofran) 4 mg IV Q6H PRN PRN Reason: nausea or vomiting Stop: 12/13/19 01:27 Last Admin: 11/13/19 16:26 Dose: 4 mg Documented by: [id number] Admin: 11/13/19 10:10 Dose: 4 mg Documented by: [id number] Admin: 11/13/19 02:23 Dose: 4 mg Documented by: [id number] Discontinued Medications Capsaicin (Zostrix) 1 appln EXT NOW STA Stop: 11/12/19 22:40 Last Admin: 11/12/19 23:00 Dose: 1 appln Documented by: [id number] Diphenhydramine HCl (Benadryl) 25 mg IV NOW STA Stop: 11/12/19 19:07 Last Admin: 11/12/19 19:51 Dose: 25 mg Documented by: [id number] Diphenhydramine HCl (Benadryl Capsule) 25 mg PO NOW STA Stop: 11/14/19 00:12 Last Admin: 11/14/19 00:21 Dose: 25 mg Documented by: [id number] Sodium Chloride (Nss 1000ml) 1,000 mls @ 999 mls/hr IV .Q1H1M ONE Stop: 11/12/19 20:01 Last Infusion: 11/12/19 21:10 Dose: 0 mls/hr Documented by: [id number] Admin: 11/12/19 19:52 Dose: 999 mls/hr Documented by: [id number] Famotidine (Pepcid 20mg Iv Push) 20 mg in 5 mls @ 2.5 mls/min IV NOW STA Stop: 11/12/19 19:07 Last Admin: 11/12/19 19:51 Dose: 2.5 mls/min Documented by: [id number] Prochlorperazine (Compazine) 2 mls @ 1 mls/min IV ONE ONE Stop: 11/12/19 22:20 Last Admin: 11/12/19 22:28 Dose: 1 mls/min Documented by: [id number] Thiamine HCl 100 mg/ Syringe 10 mls @ 2 mls/min IV QAM CIRO Stop: 12/13/19 08:59 Last Admin: 11/13/19 08:59 Dose: 2 mls/min Documented by: [id number] Folic Acid 1 mg/ Syringe 10 mls @ 5 mls/min IV QAM CIRO Stop: 12/13/19 08:59 Last Admin: 11/13/19 08:59 Dose: 5 mls/min Documented by: [id number] Potassium Chloride (K Jose / Wtr) 10 meq in 100 mls @ 100 mls/hr IV Q1H CIRO Stop: 11/13/19 03:59 Last Infusion: 11/13/19 04:52 Dose: 0 mls/hr Documented by: [id number] Admin: 11/13/19 03:31 Dose: 100 mls/hr Documented by: [id number] Infusion: 11/13/19 03:22 Dose: 100 mls/hr Documented by: [id number] Admin: 11/13/19 02:22 Dose: 100 mls/hr Documented by: [id number] Ioversol (Optiray 320 100ml) 94 ml IV ONCE PRN PRN Reason: Interaction Checking Stop: 11/16/19 20:45 Last Admin: 11/12/19 20:46 Dose: 1 ml Documented by: [id number] Metoclopramide HCl (Reglan) 10 mg IV NOW STA Stop: 11/12/19 19:07 Last Admin: 11/12/19 19:51 Dose: 10 mg Documented by: [id number] Morphine Sulfate (Morphine Sulfate) 6 mg IV NOW STA Stop: 11/12/19 22:20 Last Admin: 11/12/19 22:28 Dose: 6 mg Documented by: [id number] Medical Decision Making Differential Diagnosis Differential diagnosis: Etiologies such as appendicitis, diverticulitis, PUD, biliary pathology, UTI, pancreatitis, obstruction, mesenteric ischemia, aortic pathology, infections, inflammatory bowel disease, renal colic, as well as others were entertained. Medical Records Attestation: I reviewed the patient's medical records. Home Medications Current Medication List: was personally reviewed by me Laboratory Data Attestation: I reviewed the patient's lab results. Result diagrams: 11/13/19 06:25 11/13/19 06:25 Lab Results 11/12/19 11/12/19 11/12/19 Range/Units 19:41 19:41 19:41 WBC 13.96 H (4.8-10.8) K/uL RBC 4.41 (4.2-5.4) M/uL Hgb 14.3 (12.0-16.0) g/dL Hct 41.9 (37-47) % MCV 95.0 (80-100) fL MCH 32.4 (25-34) pg MCHC 34.1 (32-36) g/dL RDW Std Deviation 45.9 (36.4-46.3) fL RDW Coeff of Jessica 13.2 (11.5-14.5) % Plt Count 285 (130-400) K/uL MPV 9.3 (7.4-10.4) fL Immature Gran % (Auto) 0.7 % Neut % (Auto) 73.3 % Lymph % (Auto) 15.6 % [place] % (Auto) 10.3 % Eos % (Auto) 0.0 % Baso % (Auto) 0.1 % Immature Gran # (Auto) 0.10 H (0.00-0.02) K/uL Neut # (Auto) 10.23 H (1.4-6.5) K/uL Lymph # (Auto) 2.18 (1.2-3.4) K/uL [place] # (Auto) 1.44 H (0.11-0.59) K/uL Eos # (Auto) 0.00 (0-0.5) K/uL Baso # (Auto) 0.01 (0-0.2) K/uL PT 72.4 H (9.0-12.0) Seconds INR 8.2 H* (0.9-1.1) APTT 37.0 H (21.0-31.0) Seconds PTT Ratio 1.4 Sodium 139 (136-145) mmol/L Potassium 3.1 L D (3.5-5.1) mmol/L Chloride 103 (98-107) mmol/L Carbon Dioxide 27 (21-32) mmol/L Anion Gap 8.0 (3-11) BUN 19 H (7-18) mg/dl Creatinine 0.75 (0.6-1.2) mg/dl Est Cr Clr Drug Dosing 83.3 ml/min Est GFR ( Amer) 116.4 Est GFR (Non-Af Amer) 100.4 BUN/Creatinine Ratio 25.5 H (10-20) Glucose 120 H (70-99) mg/dl Calcium 8.8 (8.5-10.1) mg/dl Phosphorus 2.5 (2.5-4.9) mg/dl Magnesium 2.1 (1.8-2.4) mg/dl Total Bilirubin 0.5 (0.2-1) mg/dl Direct Bilirubin < 0.1 (0-0.2) mg/dl AST 38 H (15-37) U/L ALT 40 (12-78) U/L Alkaline Phosphatase 111 (45-117) U/L Troponin I < 0.015 (0-0.045) ng/ml Total Protein 6.8 (6.4-8.2) gm/dl Albumin 3.5 (3.4-5.0) gm/dl Globulin 3.3 (2.5-4.0) gm/dl Albumin/Globulin Ratio 1.1 (0.9-2) Lipase 704 H (73-393) U/L TSH 3.260 (0.300-4.500) uIu/ml HCG, Qual (Negative) Urine Color Urine Appearance (Clear) Urine pH (4.5-7.5) Ur Specific [place] (1.000-1.030) Urine Protein (Negative) Urine Glucose (UA) (Negative) Urine Ketones (Negative) Urine Blood (Negative) Urine Nitrite (Negative) Urine Bilirubin (Negative) Urine Urobilinogen (Negative) Ur Leukocyte Esterase (Negative) Urine WBC (Auto) (0-5) /hpf Urine RBC (Auto) (0-4) /hpf U Hyaline Cast (Auto) (0-5) /lpf U Epithel Cells (Auto) (0-5) /lpf Urine Bacteria (Auto) (Negative) Ethyl Alcohol mg/dL (0-3) mg/dl 11/12/19 11/12/19 11/12/19 Range/Units 19:41 19:41 19:54 WBC (4.8-10.8) K/uL RBC (4.2-5.4) M/uL Hgb (12.0-16.0) g/dL Hct (37-47) % MCV (80-100) fL MCH (25-34) pg MCHC (32-36) g/dL RDW Std Deviation (36.4-46.3) fL RDW Coeff of Jessica (11.5-14.5) % Plt Count (130-400) K/uL MPV (7.4-10.4) fL Immature Gran % (Auto) % Neut % (Auto) % Lymph % (Auto) % [place] % (Auto) % Eos % (Auto) % Baso % (Auto) % Immature Gran # (Auto) (0.00-0.02) K/uL Neut # (Auto) (1.4-6.5) K/uL Lymph # (Auto) (1.2-3.4) K/uL [place] # (Auto) (0.11-0.59) K/uL Eos # (Auto) (0-0.5) K/uL Baso # (Auto) (0-0.2) K/uL PT (9.0-12.0) Seconds INR (0.9-1.1) APTT (21.0-31.0) Seconds PTT Ratio Sodium (136-145) mmol/L Potassium (3.5-5.1) mmol/L Chloride (98-107) mmol/L Carbon Dioxide (21-32) mmol/L Anion Gap (3-11) BUN (7-18) mg/dl Creatinine (0.6-1.2) mg/dl Est Cr Clr Drug Dosing ml/min Est GFR ( Amer) Est GFR (Non-Af Amer) BUN/Creatinine Ratio (10-20) Glucose (70-99) mg/dl Calcium (8.5-10.1) mg/dl Phosphorus (2.5-4.9) mg/dl Magnesium (1.8-2.4) mg/dl Total Bilirubin (0.2-1) mg/dl Direct Bilirubin (0-0.2) mg/dl AST (15-37) U/L ALT (12-78) U/L Alkaline Phosphatase (45-117) U/L Troponin I (0-0.045) ng/ml Total Protein (6.4-8.2) gm/dl Albumin (3.4-5.0) gm/dl Globulin (2.5-4.0) gm/dl Albumin/Globulin Ratio (0.9-2) Lipase (73-393) U/L TSH (0.300-4.500) uIu/ml HCG, Qual Negative (Negative) Urine Color Dark Yellow Urine Appearance Cloudy A (Clear) Urine pH 6.0 (4.5-7.5) Ur Specific [place] 1.031 H (1.000-1.030) Urine Protein Trace H (Negative) Urine Glucose (UA) Negative (Negative) Urine Ketones Negative (Negative) Urine Blood Trace H (Negative) Urine Nitrite Negative (Negative) Urine Bilirubin Negative (Negative) Urine Urobilinogen Negative (Negative) Ur Leukocyte Esterase Negative (Negative) Urine WBC (Auto) 1-5 (0-5) /hpf Urine RBC (Auto) 5-10 H (0-4) /hpf U Hyaline Cast (Auto) 1-5 (0-5) /lpf U Epithel Cells (Auto) >30 H (0-5) /lpf Urine Bacteria (Auto) 1+ H (Negative) Ethyl Alcohol mg/dL < 3.0 (0-3) mg/dl Imaging Data Radiologist's Impression: Radiology results as stated below per my review and the radiologist's interpretation: CT SCAN OF THE ABDOMEN AND PELVIS WITH IV CONTRAST CLINICAL HISTORY: Upper abdominal pain. COMPARISON STUDY: Abdominal CT dated 09/10/2019. TECHNIQUE: Following the IV administration of 94 cc of Optiray 320, CT scan of the abdomen and pelvis is performed from the lung bases to the proximal femora. Images are reviewed in the axial, sagittal, and coronal planes. IV contrast was administered without complication. A dose lowering technique was utilized adhering to the principles of ALARA. CT DOSE: 304.99 mGy.cm FINDINGS: Lung bases: The heart is normal in size and without pericardial effusion. The lung bases are clear noting dependent atelectasis. Liver: The contrast-enhanced liver is enlarged, measuring 20.1 cm in length. Hepatic attenuation is slightly heterogeneous.. There is no intrahepatic biliary ductal dilatation. The hepatic veins and portal veins are patent. Gallbladder: Surgically absent noting clips in the gallbladder fossa. Spleen: Normal in size and attenuation. Pancreas: There is inflammatory stranding identified around the pancreas, greatest involving the pancreatic head and neck. There is heterogeneously diminished enhancement of the pancreatic head and neck. The pancreatic cystic lesions seen on 06/28/2019 are no longer well-visualized. The pancreatic duct is normal in caliber. No organized peripancreatic fluid collection is identified on today's examination. The splenic vein is patent. Adrenal glands: Unremarkable. Kidneys: The contrast enhanced kidneys are normal in size and without hydronephrosis. The kidneys enhance symmetrically. Small nonobstructing renal calculi are noted. Abdominal vasculature: The abdominal aorta is normal in course and caliber noting scattered foci of atherosclerotic calcification. Bowel: There is no bowel obstruction. Moderate fecal retention is noted in the colon. The appendix is well-visualized and normal. Peritoneum: There is no intraperitoneal free air or abdominal ascites. There is a small fat-containing umbilical hernia. A naval piercing is noted. Lymphadenopathy: None. Pelvic viscera: The bladder is normal as visualized. Uterine fibroids are suspected. No adnexal lesion is seen. Small ovarian follicles are incidentally noted. Skeletal structures: No lytic or blastic lesions are seen. IMPRESSION: 1. Findings are consistent with acute pancreatitis. 2. There is heterogeneously diminished perfusion of the pancreatic head and neck. Necrotizing pancreatitis is not excluded. 3. Small pancreatic cystic foci seen on prior examinations are no longer well delineated. 4. The liver is enlarged and mildly heterogeneous. 5. Suspect uterine fibroids. 6. Additional findings as above. ACT 112: Negative or not required by law. Electronically signed by: Austin Hines M.D. 11/12/2019 9:11 PM SINGLE VIEW CHEST CLINICAL HISTORY: Atypical chest pain. FINDINGS: An AP, portable, upright chest radiograph is compared to study dated 06/28/2019. The cardiomediastinal silhouette is unremarkable. The lungs and pleural spaces are clear. No pneumothorax is seen. The bony thorax is grossly intact. IMPRESSION: No active disease in the chest. ACT 112: Negative or not required by law. Electronically signed by: Austin Hines M.D. 11/12/2019 7:28 PM ECG Data Attestation: I personally reviewed and interpreted this ECG as follows: Indication: + abdominal pain Rate (beats per minute): 49 Rhythm: + sinus bradycardia ECG [place]: + Normal ECG ST segments: no ST depression and no ST elevation ECG Findings: + Other (QTc 390, QRS 84); no PACs and no PVCs Blood Pressure Blood Pressure Findings: Elevated blood pressure Blood Pressure Disposition: elevated BP felt to be situational MDM Narrative The patient is a pleasant 38-year-old woman with a past medical history of alcohol abuse, alcoholic liver cirrhosis, portal vein thrombosis on Coumadin, history of pancreatitis who presents emergency department with acute onset epigastric pain per HPI. On arrival the patient is uncomfortable no acute dist ress, afebrile stable vital signs. Exam the patient has mild epigastric tenderness without guarding or rebound. EKG without overt acute ischemia. Chest x-ray negative for acute process. WBC 13.9, nonspecific. H/H and platelets within normal limits. INR is elevated at 8.2 however no evidence of active bleeding. Potassium 3.1. Chemistry without acidosis. Electrolytes otherwise unremarkable. AST slightly elevated at 38. The bilirubin within normal limits. Troponin negative/undetectable. Lipase 700. UA without convincing evidence of infection with epithelial cells present in the patient denying urinary symptoms. CT the abdomen pelvis performed and demonstrates findings suggestive of pancreatitis although somewhat similar from her CT performed in August. Given the patient's elevated lipase, while improved from her initial value of 20K this past August symptoms, certainly could be related to a flare of her pancreatitis. Patient denied any significant improvement after IV fluid hydration, Reglan, Pepcid. Patient was given additional medications including morphine and Compazine. However given the patient does report using marijuana daily she was additionally provided with topical capsaicin for possibility of a component of cannabinoid hyperemesis. Case was discussed [place] Bojorquez, [facility] [place], who evaluate the patient for admission. Impression & Plan Pancreatitis, Marijuana use, Cirrhosis of liver, Hypokalemia Discharge Plan Visit Data *Final* Discharge Date/Time: 11/13/19 01:14 Chief Complaint: Abdominal Pain Stated Complaint: SEVERE STOMACH PAIN, CHEST PAIN ED Provider: Bunny Israel Discharge Problem: Pancreatitis, Marijuana use, Cirrhosis of liver, Hypokalemia Patient Disposition: Admitted As Inpatient Discharge Instructions Interventions: ED Discharge Assessment Last Done: 11/13/19 01:14 Discharge Problem: Pancreatitis Qualifiers: Chronicity: chronic Pancreatitis type: unspecified pancreatitis type Qualified Code(s): K86.1 - Other chronic pancreatitis The scribe's documentation has been prepared under my direction and personally reviewed by me in its entirety. I confirm that the note above accurately reflects all work, treatment, procedures, and medical decision making performed by me.
--- NOTE | 2019-11-13 00:20 | History & Physical Report ---
Date of Service November 13, 2019 Assessment & Plan (1) Acute on chronic pancreatitis: Admit tele NPO Follow lipase level LR@250 Pain and nausea control DVT prophylaxis = SCDs and covered by warfarin. Hold Creon due to NPO (2) Cirrhosis of liver: (3) Portal vein thrombosis: Warfarin on hold due to INR of 8.2. No active bleeding. Will monitor INR daily. (4) Depression with anxiety: Remeron and clonazepam on hold due to NPO (5) Alcohol abuse: ETOH withdrawal precautions with IV Ativan prn IV Folic acid and IV Thiamine ordered. (6) Hypokalemia: replaced 10meq K-rider x2. recheck in am. History of Present Illness 38 y/o female presented to the ED with worsening epigastric pain of 5 hours duration. Pain was associated with nausea and vomiting. She also noted SOB. No chest pain, cough, F/C, diarrhea, dysuria or hematuria. She has been drinking ETOH this week but had none today. Primary Care Provider: Norberto Harrington, Allergies Allergy/AdvReac Type Severity Reaction Status Date / Time buspirone [From BuSpar] Allergy Severe Unconscious, Verified 11/12/19 18:56 seizures quetiapine [From Seroquel] Allergy Severe Unconscious, Verified 11/12/19 18:56 seizures citalopram [From Celexa] AdvReac Intermediate Vomiting Verified 11/12/19 18:56 fluoxetine [From Prozac] AdvReac Intermediate VIOLENT Verified 11/12/19 18:56 VOMITING morphine AdvReac Intermediate "MAKES ME Verified 11/12/19 18:56 SICK(VOMITING)" vilazodone [From Viibryd] AdvReac Vomiting Verified 11/12/19 18:56 Home Medications Home Medications Medication Instructions Recorded Confirmed Type multivitamin 1 tab PO DAILY 03/18/19 11/12/19 History clonazepam 0.5 mg PO TID PRN 11/10/19 11/12/19 History folic acid 1 mg PO DAILY 11/10/19 11/12/19 History [id number] [Creon] 3 cap PO TID PRN 11/10/19 11/12/19 History mecobalamin (vitamin B12) [B12 1,000 mcg PO PM 11/10/19 11/12/19 History Active] medroxyprogesterone 150 mg IM Q16W 11/10/19 11/12/19 History mirtazapine 15 mg PO HS 11/10/19 11/12/19 History omeprazole 10 mg PO DAILY 11/10/19 11/12/19 History oxycodone-acetaminophen [Percocet] 1 tab PO BID PRN 11/10/19 11/12/19 History promethazine 25 mg PO DAILY PRN 11/10/19 11/12/19 History warfarin 5 mg PO DAILY 11/10/19 11/12/19 History Past Med/Surg History Medical History Acne Acute gallstone pancreatitis (Resolved) Acute pancreatitis (Inactive) Alcohol abuse Back pain, chronic (Acute) Chronic neck pain (Acute) Depression with anxiety (Chronic) GERD (gastroesophageal reflux disease) Hiatal hernia (Chronic) Insomnia (Acute) 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 Gala Willett History of lumpectomy of right breast BENIGN History of tooth extraction Family History Father Family history of diabetes mellitus Myocardial infarction Stroke Hypertension Grandfather (Maternal) Family history of diabetes mellitus Grandmother (Maternal) Family history of diabetes mellitus Hypertension Cancer Mother Hypothyroidism Grandfather Cancer Heart problem Denies family history of Ovarian cancer Prostate cancer Breast cancer Colorectal cancer Social History Preferred Language: Jordanian Communication Ability: Effective Visual Impairment: No Limitations Hearing Ability: Normal Dental Amalgam Processor Required: No Beliefs That Will Affect Care: None marital status: Single Current Living Situation: Alone current occupational status: employed Feels Safe at Home: Yes Smoking Status: Current every day smoker Tobacco Type: cigarettes ; Cigarettes Per Day: 7 ; Second Hand Exposure: No ; Hx Alcohol Use: Yes Alcohol type: beer Hx Substance Use: Yes substance use type: marijuana and prescription drug Substance Use Type Other:: medically prescribed Last Used Substance: Unknown Childhood Exposure to Second-Hand Smoke: No Dental Care, Regularly: Yes Physical Activity Frequency: Does not Exercise Seatbelt Use: always Sunscreen Use: Yes Do you think of yourself as: straight/heterosexual Review of Systems Review of Systems: All systems reviewed & are unremarkable except as noted in HPI & below Physical Exam Physical Exam: General- adult female, NAD Head- atraumatic Eyes- PERRL, EOMI, anicteric ENT- oropharynx clear Neck- supple, no JVD, no adenopathy, no thyromegaly. Lungs- CTA b/l no R/R/W Heart- regular rhythm; no murmur, no gallop, no rub appreciated Abdomen- normal bowel sounds, soft, + tenderness to the epigastric region. Extremities- no pretibial edema, no calf tenderness; peripheral pulses intact Neuro- alert, oriented x 3; PERRL, EOMI; country singer II-XII grossly intact, non-focal. Skin- warm & dry Results & Data Vital Signs (Past 12 Hours) Vital Signs Temp Pulse Pulse Resp BP BP Pulse Ox 11/12/19 23:00 50 L 18 140/86 94 11/12/19 22:28 52 L 17 164/83 H 99 11/12/19 21:00 47 L 21 158/94 H 98 11/12/19 20:06 98 11/12/19 18:28 37.5 C 57 L 22 147/95 H 99 Laboratory Results Laboratory Results WBC 13.96 K/uL (4.8-10.8) H 11/12/19 19:41 RBC 4.41 M/uL (4.2-5.4) 11/12/19 19:41 Hgb 14.3 g/dL (12.0-16.0) 11/12/19 19:41 Hct 41.9 % (37-47) 11/12/19 19:41 MCV 95.0 fL (80-100) 11/12/19 19:41 MCH 32.4 pg (25-34) 11/12/19 19:41 MCHC 34.1 g/dL (32-36) 11/12/19 19:41 RDW Std Deviation 45.9 fL (36.4-46.3) 11/12/19 19:41 RDW Coeff of Jessica 13.2 % (11.5-14.5) 11/12/19 19:41 Plt Count 285 K/uL (130-400) 11/12/19 19:41 MPV 9.3 fL (7.4-10.4) 11/12/19 19:41 Immature Gran % (Auto) 0.7 % 11/12/19 19:41 Neut % (Auto) 73.3 % 11/12/19 19:41 Lymph % (Auto) 15.6 % 11/12/19 19:41 [place] % (Auto) 10.3 % 11/12/19 19:41 Eos % (Auto) 0.0 % 11/12/19 19:41 Baso % (Auto) 0.1 % 11/12/19 19:41 Immature Gran # (Auto) 0.10 K/uL (0.00-0.02) H 11/12/19 19:41 Neut # (Auto) 10.23 K/uL (1.4-6.5) H 11/12/19 19:41 Lymph # (Auto) 2.18 K/uL (1.2-3.4) 11/12/19 19:41 [place] # (Auto) 1.44 K/uL (0.11-0.59) H 11/12/19 19:41 Eos # (Auto) 0.00 K/uL (0-0.5) 11/12/19 19: Baso # (Auto) 0.01 K/uL (0-0.2) 11/12/19 19:41 PT 72.4 Seconds (9.0-12.0) H 11/12/19 19:41 INR 8.2 (0.9-1.1) H* 11/12/19 19:41 APTT 37.0 Seconds (21.0-31.0) H 11/12/19 19:41 PTT Ratio 1.4 11/12/19 19:41 Sodium 139 mmol/L (136-145) 11/12/19 19:41 Potassium 3.1 mmol/L (3.5-5.1) L D 11/12/19 19:41 Chloride 103 mmol/L (98-107) 11/12/19 19:41 Carbon Dioxide 27 mmol/L (21-32) 11/12/19 19:41 Anion Gap 8.0 (3-11) 11/12/19 19:41 BUN 19 mg/dl (7-18) H 11/12/19 19:41 Creatinine 0.75 mg/dl (0.6-1.2) 11/12/19 19:41 Est Cr Clr Drug Dosing 83.3 ml/min 11/12/19 19:41 Est GFR ( Amer) 116.4 11/12/19 19:41 Est GFR (Non-Af Amer) 100.4 11/12/19 19:41 BUN/Creatinine Ratio 25.5 (10-20) H 11/12/19 19:41 Glucose 120 mg/dl (70-99) H 11/12/19 19:41 Calcium 8.8 mg/dl (8.5-10.1) 11/12/19 19:41 Phosphorus 2.5 mg/dl (2.5-4.9) 11/12/19 19:41 Magnesium 2.1 mg/dl (1.8-2.4) 11/12/19 19:41 Total Bilirubin 0.5 mg/dl (0.2-1) 11/12/19 19:41 Direct Bilirubin < 0.1 mg/dl (0-0.2) 11/12/19 19:41 AST 38 U/L (15-37) H 11/12/19 19:41 ALT 40 U/L (12-78) 11/12/19 19:41 Alkaline Phosphatase 111 U/L (45-117) 11/12/19 19:41 Troponin I < 0.015 ng/ml (0-0.045) 11/12/19 19:41 Total Protein 6.8 gm/dl (6.4-8.2) 11/12/19 19:41 Albumin 3.5 gm/dl (3.4-5.0) 11/12/19 19:41 Globulin 3.3 gm/dl (2.5-4.0) 11/12/19 19:41 Albumin/Globulin Ratio 1.1 (0.9-2) 11/12/19 19:41 Lipase 704 U/L (73-393) H 11/12/19 19:41 TSH 3.260 uIu/ml (0.300-4.500) 11/12/19 19:41 HCG, Qual Negative (Negative) 11/12/19 19:41 Urine Color Dark Yellow 11/12/19 19:54 Urine Appearance Cloudy (Clear) A 11/12/19 19:54 Urine pH 6.0 (4.5-7.5) 11/12/19 19:54 Ur Specific [place] 1.031 (1.000-1.030) H 11/12/19 19:54 Urine Protein Trace (Negative) H 11/12/19 19:54 Urine Glucose (UA) Negative (Negative) 11/12/19 19:54 Urine Ketones Negative (Negative) 11/12/19 19:54 Urine Blood Trace (Negative) H 11/12/19 19:54 Urine Nitrite Negative (Negative) 11/12/19 19:54 Urine Bilirubin Negative (Negative) 11/12/19 19:54 Urine Urobilinogen Negative (Negative) 11/12/19 19:54 Ur Leukocyte Esterase Negative (Negative) 11/12/19 19:54 Urine WBC (Auto) 1-5 /hpf (0-5) 11/12/19 19:54 Urine RBC (Auto) 5-10 /hpf (0-4) H 11/12/19 19:54 U Hyaline Cast (Auto) 1-5 /lpf (0-5) 11/12/19 19:54 U Epithel Cells (Auto) >30 /lpf (0-5) H 11/12/19 19:54 Urine Bacteria (Auto) 1+ (Negative) H 11/12/19 19:54 Ethyl Alcohol mg/dL < 3.0 mg/dl (0-3) 11/12/19 19:41 Diagnostic Findings [place], [place] [phone] CT Scan Report Patient: ADA DYSON Date: 11/12/19 MR#: [id number]: [address] [facility] Acct ID:[id number]: Date: 1980City Zip: [place] [address] Age: 38Location: ED Sex: F Room/Bed: Att Phy:Diagnosis: SEVERE STOMACH PAIN, CHEST PAIN Felicitas Phy: Norberto Harrington GrahamSilvina, DOService Date: 11/12/19 [facility] Phy:Interpreting Phy: Austin Hines MD Admit Phy: Ordering Phy: Bunny Israel M.D. cc: ~ CT SCAN OF THE ABDOMEN AND PELVIS WITH IV CONTRAST CLINICAL HISTORY: Upper abdominal pain. COMPARISON STUDY: Abdominal CT dated 09/10/2019. TECHNIQUE: Following the IV administration of 94 cc of Optiray 320, CT scan of the abdomen and pelvis is performed from the lung bases to the proximal femora. Images are reviewed in the axial, sagittal, and coronal planes. IV contrast was administered without complication. A dose lowering technique was utilized adhering to the principles of ALARA. CT DOSE: 304.99 mGy.cm FINDINGS: Lung bases: The heart is normal in size and without pericardial effusion. The lung bases are clear noting dependent atelectasis. Liver: The contrast-enhanced liver is enlarged, measuring 20.1 cm in length. Hepatic attenuation is slightly heterogeneous.. There is no intrahepatic biliary ductal dilatation. The hepatic veins and portal veins are patent. Gallbladder: Surgically absent noting clips in the gallbladder fossa. Spleen: Normal in size and attenuation. Pancreas: There is inflammatory stranding identified around the pancreas, greatest involving the pancreatic head and neck. There is heterogeneously diminished enhancement of the pancreatic head and neck. The pancreatic cystic lesions seen on 06/28/2019 are no longer well-visualized. The pancreatic duct is normal in caliber. No organized peripancreatic fluid collection is identified on today's examination. The splenic vein is patent. Adrenal glands: Unremarkable. Kidneys: The contrast enhanced kidneys are normal in size and without hydrone phrosis. The kidneys enhance symmetrically. Small nonobstructing renal calculi are noted. Abdominal vasculature: The abdominal aorta is normal in course and caliber noting scattered foci of atherosclerotic calcification. Bowel: There is no bowel obstruction. Moderate fecal retention is noted in the colon. The appendix is well-visualized and normal. Peritoneum: There is no intraperitoneal free air or abdominal ascites. There is a small fat-containing umbilical hernia. A naval piercing is noted. Lymphadenopathy: None. Pelvic viscera: The bladder is normal as visualized. Uterine fibroids are suspected. No adnexal lesion is seen. Small ovarian follicles are incidentally noted. Skeletal structures: No lytic or blastic lesions are seen. IMPRESSION: 1. Findings are consistent with acute pancreatitis. 2. There is heterogeneously diminished perfusion of the pancreatic head and neck. Necrotizing pancreatitis is not excluded. 3. Small pancreatic cystic foci seen on prior examinations are no longer well delineated. 4. The liver is enlarged and mildly heterogeneous. 5. Suspect uterine fibroids. 6. Additional findings as above. ACT 112: Negative or not required by law. Electronically signed by: Austin Hines M.D. 11/12/2019 9:11 PM Dictated: 11/12/192102 Transcribed: 11/12/192102 Code Status & VTE Plan VTE Prophylaxis Plan VTE Prophylaxis will be ordered: Yes PG Care Time/CCT Total # of Minutes Spent Total Time Spent: 55 Total Time Spent with Patient: Total time spent is greater than 50% in coordination of care (as documented) at patient's floor/unit and/or counseling patient: Coding Level of Care Code 59403 Initial Inpt Care Lvl 3 Diagnoses Acute on chronic pancreatitis K85.90; K86.1 Cirrhosis of liver K74.60 Portal vein thrombosis I81 Depression with anxiety F41.8 Alcohol abuse F10.10 Hypokalemia E87.6
[2019-11-13] MEDS ORDERED: ATIVAN IV ALCOHOL WITHDRAWL IV PRN (01:28)
[2019-11-13] MEDS ORDERED: LORazepam 2 MG/4 ML VIAL IV PRN (01:28)
[2019-11-13] MEDS ORDERED: LORazepam 1 MG/2 ML VIAL IV PRN (01:28)
[2019-11-13] MEDS ORDERED: LORazepam 3 MG/6 ML VIAL IV PRN (01:28)
[2019-11-13] MEDS ORDERED: HydrALAZINE HCL 20 MG/ML VIAL IV PRN (01:56)
[2019-11-13] MEDS: LACTATED RINGER'S 1,000 ML IV SCH ×6 (02:11→20:28)
[2019-11-13] MEDS: FAMOTIDINE 20 MG in SYRINGE 3 ML IV SCH ×3 (02:22→20:29)
[2019-11-13] MEDS: POTASSIUM CHLORIDE / WTR 10 MEQ/100 ML PLCT IV SCH ×2 (02:22→03:31)
[2019-11-13] MEDS: HYDROmorphone INJ 1 MG/ML SYRINGE IV PRN ×4 (02:22→14:50)
[2019-11-13] MEDS: ONDANSETRON INJ 2 MG/ML 2 ML VIAL IV PRN ×3 (02:23→16:26)
[2019-11-13 07:09] LABS: Hematocrit (blood only) 38.5 % (37-47); Hemoglobin 12.8 g/dL (12.0-16.0); Mean Corpuscular Hemoglobin 31.8 pg (25-34); Mean Corpuscular Hgb Conc 33.2 g/dL (32-36); Mean Corpuscular Volume 95.8 fL (80-100); Mean Platelet Volume 9.4 fL (7.4-10.4); Platelet Count 260 K/uL (130-400); RDW Coefficient of Variation 13.2 % (11.5-14.5); RDW Standard Deviation 46.1 fL (36.4-46.3); Red Blood Count 4.02 M/uL (4.2-5.4)
[2019-11-13 07:30] LABS: INR 4.4 (0.9-1.1); Prothrombin Time 40.9 Seconds (9.0-12.0)
[2019-11-13 08:02] LABS: Calcium 8.3 mg/dl (8.5-10.1); Creatinine Clr Calc Pharmacy 127.5 ml/min; Est GFR (African American) 142.2; Est GFR (Non-African American) 122.7; Potassium 3.7 mmol/L (3.5-5.1)
[2019-11-13] MEDS ORDERED: FOLIC ACID 1 MG in SYRINGE 9.8 ML IV SCH (09:00)
[2019-11-13] MEDS ORDERED: THIAMINE HCL 100 MG in SYRINGE 9 ML IV SCH (09:00)
--- NOTE | 2019-11-13 11:56 | Gastrointestinal Consultation ---
Date of Consultation November 13, 2019 Assessment & Plan (1) Acute alcoholic pancreatitis: Very Mild attack, already feels better. Her labs are at the best this time, no leukocytosis or signs of sepsis to suggest necrotizing pancreatitis, the CT scan changes are likely related to recurrent pancreatitis in the head area. Recent EUS on 09/2019 showed changes of chronic pancreatitis in HOP area. Start clear liquid diet. Advance as tolerated. Strict alcohol cessation. No PVT on current CT scan, please discuss with Hematology duration of her AC. Currently has supreatherpeutic level. Prior Pseudocysts resolved, no ductal dilation and LFTs normal hence no evidence of biliary etiology. Elevated AST is likely related to alcoholic liver disease. Doubt prior impression of Groove pancreatitis. Recall GI if needed. (2) Portal vein thrombosis: (3) Abnormal LFTs: History of Present Illness Reason for Consultation: Acute pancreatitis Requesting Physician: Palma Gastelum MD Attending Physician: Saji Fuentes MD History of Present Illness 38 years old female patient with medical history of recurrent pancreatitis due to Alcohol use for the last few years, she is s/p cholecystectomy, Hx of PVT currently on Coumadin, presented to the hospital with acute epigastric abdominal pain, nausea and vomiting since last night, no fever or chills, no diarrhea or rectal bleeding. CT scan this time showed acute pancreatitis, resolution of the prior pancreatic cysts, perfusion changes ? necrosis, no biliary ductal dilation. She already feels better now, her symptoms resolved since admission, no abdominal pain, feels hungry. She is still drinking alcohol and drank Beer last week. Allergies Allergy/AdvReac Type Severity Reaction Status Date / Time buspirone [From BuSpar] Allergy Severe Unconscious, Verified 11/12/19 18:56 seizures quetiapine [From Seroquel] Allergy Severe Unconscious, Verified 11/12/19 18:56 seizures citalopram [From Celexa] AdvReac Intermediate Vomiting Verified 11/12/19 18:56 fluoxetine [From Prozac] AdvReac Intermediate VIOLENT Verified 11/12/19 18:56 VOMITING morphine AdvReac Intermediate "MAKES ME Verified 11/12/19 18:56 SICK(VOMITING)" vilazodone [From Viibryd] AdvReac Vomiting Verified 11/12/19 18:56 Home Medications Home Medications Medication Instructions Recorded Confirmed Type multivitamin 1 tab PO DAILY 03/18/19 11/12/19 History clonazepam 0.5 mg PO TID PRN 11/10/19 11/12/19 History folic acid 1 mg PO DAILY 11/10/19 11/12/19 History [id number]-[id number] [Creon] 3 cap PO TID PRN 11/10/19 11/12/19 History mecobalamin (vitamin B12) [B12 1,000 mcg PO PM 11/10/19 11/12/19 History Active] medroxyprogesterone 150 mg IM Q16W 11/10/19 11/12/19 History mirtazapine 15 mg PO HS 11/10/19 11/12/19 History omeprazole 10 mg PO DAILY 11/10/19 11/12/19 History oxycodone-acetaminophen [Percocet] 1 tab PO BID PRN 11/10/19 11/12/19 History promethazine 25 mg PO DAILY PRN 11/10/19 11/12/19 History warfarin 5 mg PO DAILY 11/10/19 11/12/19 History Patient History Medical History Acne Acute gallstone pancreatitis (Resolved) Acute pancreatitis (Inactive) Alcohol abuse Back pain, chronic (Acute) Chronic neck pain (Acute) Depression with anxiety (Chronic) GERD (gastroesophageal reflux disease) Hiatal hernia (Chronic) Insomnia (Acute) 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 Gala Willett History of lumpectomy of right breast BENIGN History of tooth extraction Family History Father Family history of diabetes mellitus Myocardial infarction Stroke Hypertension Grandfather (Maternal) Family history of diabetes mellitus Grandmother (Maternal) Family history of diabetes mellitus Hypertension Cancer Mother Hypothyroidism Grandfather Cancer Heart problem Denies family history of Ovarian cancer Prostate cancer Breast cancer Colorectal cancer Social History Preferred Language: Egyptian Communication Ability: Effective Visual Impairment: No Limitations Hearing Ability: Normal Ceramic Capacitor Processor Required: No Beliefs That Will Affect Care: None marital status: Single Current Living Situation: Family current occupational status: employed Other Information That Helps Us Care for You: No Feels Safe at Home: Yes Safety Concerns: Feels Safe At This Time Smoking Status: Unknown if ever smoked Hx Alcohol Use: No Hx Substance Use: No Childhood Exposure to Second-Hand Smoke: No Dental Care, Regularly: Yes Physical Activity Frequency: Does not Exercise Seatbelt Use: always Sunscreen Use: Yes Do you think of yourself as: straight/heterosexual Review of Systems Constitutional: no fever, no chills, no fatigue and no weight loss Eyes: no eye pain and no worsening vision Ear, Nose, Mouth, Throat: no tinnitus, no dizziness, no nasal discharge and no epistaxis Respiratory: no cough, no dyspnea, no dyspnea on exertion and no wheezing Cardiovascular: no chest pain, no orthopnea, no palpitations and no edema Gastrointestinal: as per Subjective / HPI Genitourinary: no dysuria, no urinary frequency, no urinary incontinence and no hematuria Musculoskeletal: no stiffness and no myalgia Neurologic: no localized weakness, no paralysis, no tremor(s) and no headache(s) Endocrine: no polydipsia and no polyuria Hematologic / Lymphatic: no easy bleeding and no night sweats Physical Exam Constitutional: + well hydrated, cooperative and comfortable Eyes: PERRL, conjunctivae normal, anicteric sclerae ENMT: external ear and nose normal, oropharynx normal Neck: normal visual inspection and trachea midline Respiratory: normal respiratory effort, lungs clear to auscultation Auscultation: no wheezes Cardiovascular: RRR, no murmur, no edema Gastrointestinal (Abdomen): normal bowel sounds, soft, nontender, no hepatosplenomegaly Musculoskeletal: no cyanosis or clubbing, extremities motor strength 5/5 Skin: no rashes, warm and dry Neurologic: awake; no focal motor deficits Motor/Sensory: no tremor Results & Data ([facility]) Vital Signs (Past 12 Hours) Vital Signs Temp Pulse Pulse Pulse Resp BP Pulse Ox 11/13/19 08:00 36.4 C L 58 L 18 131/76 93 11/13/19 07:15 56 L 11/13/19 03:04 48 L 11/13/19 02:11 37.2 C 50 L 19 149/85 H 95 11/13/19 01:46 36.9 C 50 L 18 152/89 H 98 11/13/19 00:50 48 L 18 151/84 H 95 11/13/19 00:19 52 L 18 152/89 H 95 Laboratory Results Laboratory Results - last 24 hr 11/12/19 11/12/19 11/12/19 19:41 19:41 19:41 WBC 13.96 H RBC 4.41 Hgb 14.3 Hct 41.9 MCV 95.0 MCH 32.4 MCHC 34.1 RDW Std Deviation 45.9 RDW Coeff of Jessica 13.2 Plt Count 285 MPV 9.3 Immature Gran % (Auto) 0.7 Neut % (Auto) 73.3 Lymph % (Auto) 15.6 [place] % (Auto) 10.3 Eos % (Auto) 0.0 Baso % (Auto) 0.1 Immature Gran # (Auto) 0.10 H Neut # (Auto) 10.23 H Lymph # (Auto) 2.18 [place] # (Auto) 1.44 H Eos # (Auto) 0.00 Baso # (Auto) 0.01 PT 72.4 H INR 8.2 H* APTT 37.0 H PTT Ratio 1.4 Sodium 139 Potassium 3.1 L D Chloride 103 Carbon Dioxide 27 Anion Gap 8.0 BUN 19 H Creatinine 0.75 Est Cr Clr Drug Dosing 83.3 Est GFR ( Amer) 116.4 Est GFR (Non-Af Amer) 100.4 BUN/Creatinine Ratio 25.5 H Glucose 120 H Calcium 8.8 Phosphorus 2.5 Magnesium 2.1 Total Bilirubin 0.5 Direct Bilirubin < 0.1 AST 38 H ALT 40 Alkaline Phosphatase 111 Troponin I < 0.015 Total Protein 6.8 Albumin 3.5 Globulin 3.3 Albumin/Globulin Ratio 1.1 Lipase 704 H TSH 3.260 HCG, Qual Urine Color Urine Appearance Urine pH Ur Specific [place] Urine Protein Urine Glucose (UA) Urine Ketones Urine Blood Urine Nitrite Urine Bilirubin Urine Urobilinogen Ur Leukocyte Esterase Urine WBC (Auto) Urine RBC (Auto) U Hyaline Cast (Auto) U Epithel Cells (Auto) Urine Bacteria (Auto) Ethyl Alcohol mg/dL 11/12/19 11/12/19 11/12/19 19:41 19:41 19:54 WBC RBC Hgb Hct MCV MCH MCHC RDW Std Deviation RDW Coeff of Jessica Plt Count MPV Immature Gran % (Auto) Neut % (Auto) Lymph % (Auto) [place] % (Auto) Eos % (Auto) Baso % (Auto) Immature Gran # (Auto) Neut # (Auto) Lymph # (Auto) [place] # (Auto) Eos # (Auto) Baso # (Auto) PT INR APTT PTT Ratio Sodium Potassium Chloride Carbon Dioxide Anion Gap BUN Creatinine Est Cr Clr Drug Dosing Est GFR ( Amer) Est GFR (Non-Af Amer) BUN/Creatinine Ratio Glucose Calcium Phosphorus Magnesium Total Bilirubin Direct Bilirubin AST ALT Alkaline Phosphatase Troponin I Total Protein Albumin Globulin Albumin/Globulin Ratio Lipase TSH HCG, Qual Negative Urine Color Dark Yellow Urine Appearance Cloudy A Urine pH 6.0 Ur Specific [place] 1.031 H Urine Protein Trace H Urine Glucose (UA) Negative Urine Ketones Negative Urine Blood Trace H Urine Nitrite Negative Urine Bilirubin Negative Urine Urobilinogen Negative Ur Leukocyte Esterase Negative Urine WBC (Auto) 1-5 Urine RBC (Auto) 5-10 H U Hyaline Cast (Auto) 1-5 U Epithel Cells (Auto) >30 H Urine Bacteria (Auto) 1+ H Ethyl Alcohol mg/dL < 3.0 11/13/19 11/13/19 11/13/19 06:25 06:25 06:25 WBC 9.70 RBC 4.02 L Hgb 12.8 Hct 38.5 MCV 95.8 MCH 31.8 MCHC 33.2 RDW Std Deviation 46.1 RDW Coeff of Jessica 13.2 Plt Count 260 MPV 9.4 Immature Gran % (Auto) Neut % (Auto) Lymph % (Auto) [place] % (Auto) Eos % (Auto) Baso % (Auto) Immature Gran # (Auto) Neut # (Auto) Lymph # (Auto) [place] # (Auto) Eos # (Auto) Baso # (Auto) PT 40.9 H INR 4.4 H APTT PTT Ratio Sodium 135 L Potassium 3.7 D Chloride 104 Carbon Dioxide 27 Anion Gap 5.0 BUN 13 Creatinine 0.49 L Est Cr Clr Drug Dosing 127.5 Est GFR ( Amer) 142.2 Est GFR (Non-Af Amer) 122.7 BUN/Creatinine Ratio 26.0 H Glucose 121 H Calcium 8.3 L Phosphorus Magnesium Total Bilirubin Direct Bilirubin AST ALT Alkaline Phosphatase Troponin I Total Protein Albumin Globulin Albumin/Globulin Ratio Lipase 1060 H TSH HCG, Qual Urine Color Urine Appearance Urine pH Ur Specific [place] Urine Protein Urine Glucose (UA) Urine Ketones Urine Blood Urine Nitrite Urine Bilirubin Urine Urobilinogen Ur Leukocyte Esterase Urine WBC (Auto) Urine RBC (Auto) U Hyaline Cast (Auto) U Epithel Cells (Auto) Urine Bacteria (Auto) Ethyl Alcohol mg/dL
[2019-11-13] MEDS: clonazePAM 0.5 MG TAB PO PRN (12:53)
--- NOTE | 2019-11-13 13:16 | Hospitalist Progress Note ---
Date of Service November 13, 2019 Assessment & Plan (1) Acute on chronic pancreatitis: - Reports episodes in the past - H/O alcohol abuse -- States she did quit drinking but due to social stressors she does admit to resumption of intake prior to this episode - CT - acute pancreatitis; heterogeneously diminished perfusion of the pancreatic head and neck; small pancreatic cystic foci on prior exam no longer well delineated; liver enlarged and mildly heterogenous; uterine fibroids noted - Had EUS on 09/2019 - pancreatic parenchymal abnormalities consisting of hyperechoic foci and shadowing foci were noted in pancreatic head - Lipase slightly increased from 700 to 1000 on AM labs - however clinically improving and will monitor - Started a clear liquid diet and will monitor tolerance; pain/nausea control ordered - LR at 250 mL/hr - Mild elevation of AST - likely related to alcohol consumption - GI consulted - appreciate input - favors mild pancreatitis - unlikely necrotizing - no leukocytosis no fever (2) Cirrhosis of liver: - In the setting of alcohol use - CT shows enlarged liver; slightly heterogenous - Encouraged alcohol cessation - patient agrees this needs to occur and reports stopping but recently resumed due to acute stressors (3) Portal vein thrombosis: - CT on admission reveals patent hepatic and portal veins - Diagnosed initially Jun 2019 - was evaluated by heme/onc and question culprit being compression from cysts/recurrent pancreatitis; mother did have a DVT/PE after surgery but no other family history of clots; was to have some hypercoaguable studies completed but I cannot find results and plan to run additional ones when off anticoagulation - Per Heme/Onc the plan was to F/U in November to discuss cessation of anticoagulation - Dr. Garcia recommending 3-6 months treatment - can arrange F/U - INR currently supratherapeutic at 4.4 which is improved from 8.2 - hold Warfarin today - Patient is on Depo and did discuss BC as a possible contributor to clot formation. Could consider IUD or lower dose BC but still this could be a risk factor for clot formation (4) Depression with anxiety: - Acute anxiety - requiring recent ED visit however also associated with alcohol consumption -- Reports have a stalker and had issues with this individual previously and he recent came back around. She is utilizing services through the [facility] and she feels this helps. She expresses guilt for resorting to alcohol consumption when she has increased stress/anxiety. She however expresses hope and excitement to get back to her job on Friday. She denies SI/HI - Continue Remeron 15 mg HS; Clonazepam PRN (5) Alcohol abuse: - AWSS protocol with Ativan if needed - some anxiety noted especially when discussing her current social situation however no tremor, sweats, etc to suggest active withdrawal at this time - Continue folic acid and thiamine Admission and Anticipated Discharge Date Admission Date: November 13, 2019 Anticipated date of discharge: 11/15/19 Supervising Physician Co-Signing Physician Notes PA Supervision Note: I did not personally see or examine the patient today, but I verified all hammonds points of JOJO Mojica's assessment and plan with the following exceptions/additions: None Subjective Reports feeling better today compared to yesterday. She reports she feels hungry and pain is getting better controlled that she can relax some. Her Lipase did trend up some but again clinically feeling better. She does report she has quit drinking but due to increased stress/anxiety she does report resorting to drinking alcohol to cope with the situation. She states she had a full nervous breakdown just a couple days ago. She was seen in the ED for this episode. She however denies suicidal thoughts. She feels guilt for relapsing but at the same time makes comments that she was able to stop this before so expresses hope. Review of Systems Constitutional: + fatigue; no fever, no chills and no anorexia Ear, Nose, Mouth, Throat: no nasal congestion and no sore throat Respiratory: no cough and no dyspnea Cardiovascular: no chest pain, no palpitations, no lightheadedness and no edema Gastrointestinal: + abdominal pain (improving) and + nausea (intermittent - currently resolved); no vomiting, no constipation and no diarrhea/loose stools Genitourinary: no dysuria Integumentary: no rash Physical Exam Constitutional: WD/WN, vitals as above Eyes: + anicteric sclerae ENMT: Ears: no hearing impairment Neck: trachea midline Respiratory: normal respiratory effort, lungs clear to auscultation Cardiovascular: RRR, no murmur, no edema Gastrointestinal (Abdomen): Inspection/Auscultation: + abnormal bowel sounds Percussion/Palpation: abdomen soft; abdomen nontender ecchymosis around lower abdomen due to Lovenox injections Musculoskeletal: Head/Neck/Chest: normocephalic and head atraumatic Skin: no rashes, warm and dry Neurologic: moves all extremities Psychiatric: A+Ox3, euthymic affect (mildly anxious) Results & Data ([facility]) Vital Signs (Past 12 Hours) Vital Signs Temp Pulse Pulse Pulse Resp BP Pulse Ox 11/13/19 12:00 36.8 C 61 18 145/87 H 97 11/13/19 08:00 36.4 C L 58 L 18 131/76 93 11/13/19 07:15 56 L 11/13/19 03:04 48 L 11/13/19 02:11 37.2 C 50 L 19 149/85 H 95 11/13/19 01:46 36.9 C 50 L 18 152/89 H 98 PG Care Time/CCT Total # of Minutes Spent Total Time Spent with Patient: Total time spent is greater than 50% in coordination of care (as documented) at patient's floor/unit and/or counseling patient: Coding Level of Care Code None Diagnoses Acute on chronic pancreatitis K85.90; K86.1 Cirrhosis of liver K74.60 Portal vein thrombosis I81 Depression with anxiety F41.8 Alcohol abuse F10.10
--- NOTE | 2019-11-13 19:38 | Electrocardiogram Report ---
Test Reason : Blood Pressure : / mmHG Vent. Rate : 049 BPM Atrial Rate : 049 BPM P-R Int : 124 ms QRS Dur : 084 ms QT Int : 432 ms P-R-T Axes : 069 076 071 degrees QTc Int : 390 ms Sinus bradycardia Otherwise normal ECG When compared with ECG of 10-SEP-2019 01:58, Vent. rate has decreased BY 29 BPM Confirmed by Niko Matthews ([id number]) on 11/13/2019 7:37:55 PM Referred By: REFERRED SELF Confirmed By:Niko Matthews
[2019-11-13] MEDS: KETOROLAC TROMETHAMINE 15 MG/ML VIAL IV PRN (20:28)
[2019-11-13] MEDS ORDERED: MIRTAZAPINE TAB 15 MG TAB PO SCH (21:00)
[2019-11-13] MEDS: HYDROmorphone INJ 0.5 MG/0.5 ML SYR IV PRN (22:33)
[2019-11-14] MEDS: LACTATED RINGER'S 1,000 ML IV SCH ×4 (00:46→12:29)
[2019-11-14] MEDS: HYDROmorphone INJ 0.5 MG/0.5 ML SYR IV PRN ×3 (03:21→13:54)
[2019-11-14 05:53] LABS: Hematocrit (blood only) 36.8 % (37-47); Hemoglobin 12.4 g/dL (12.0-16.0); Mean Corpuscular Hemoglobin 32.3 pg (25-34); Mean Corpuscular Hgb Conc 33.7 g/dL (32-36); Mean Corpuscular Volume 95.8 fL (80-100); Mean Platelet Volume 9.3 fL (7.4-10.4); Platelet Count 255 K/uL (130-400); RDW Coefficient of Variation 12.9 % (11.5-14.5); RDW Standard Deviation 45.1 fL (36.4-46.3); Red Blood Count 3.84 M/uL (4.2-5.4); White Blood Count 10.23 K/uL (4.8-10.8)
[2019-11-14 06:03] LABS: INR 1.6 (0.9-1.1); Prothrombin Time 15.9 Seconds (9.0-12.0)
[2019-11-14 06:25] LABS: BUN Creatinine Ratio 17.1 (10-20); Calcium 8.3 mg/dl (8.5-10.1); Creatinine Clr Calc Pharmacy 151.2 ml/min; Est GFR (African American) 146.3; Est GFR (Non-African American) 126.2; Potassium 3.1 mmol/L (3.5-5.1)
[2019-11-14] MEDS: clonazePAM 0.5 MG TAB PO PRN (08:31)
[2019-11-14] MEDS: FAMOTIDINE 20 MG in SYRINGE 3 ML IV SCH (08:57)
[2019-11-14] MEDS ORDERED: THIAMINE HCL 100 MG TAB PO SCH (09:00)
[2019-11-14] MEDS ORDERED: FOLIC ACID 1 MG TAB PO SCH (09:00)
[2019-11-14] MEDS ORDERED: POTASSIUM CHLORIDE 20 MEQ TABCR PO ONE (09:45)
[2019-11-14] MEDS ORDERED: clonazePAM 1 MG TAB PO PRN (10:48)
[2019-11-14] MEDS ORDERED: clonazePAM 0.5 MG TAB PO STA (10:50)
[2019-11-14] MEDS: ONDANSETRON INJ 2 MG/ML 2 ML VIAL IV PRN (10:54)
[2019-11-14] MEDS: PANCREAZE (LIPASE 10,500U) CAP PO PRN ×2 (12:29→17:07)
[2019-11-14] MEDS: KETOROLAC TROMETHAMINE 15 MG/ML VIAL IV PRN (13:34)
[2019-11-14] MEDS ORDERED: PROMETHAZINE HCL 12.5 MG in SODIUM CHLORIDE 0.9% 50 ML IV STA (13:59)
[2019-11-14] MEDS ORDERED: WARFARIN SOD 5 MG TAB PO ONE (17:45)
[2019-11-14] MEDS ORDERED: ACETAMINOPHEN 325 MG TAB PO PRN (19:30)
--- NOTE | 2019-11-14 19:31 | Discharge Summary ---
Date of Service November 14, 2019 Admission HPI Per Admitting Provider 38 y/o female presented to the ED with worsening epigastric pain of 5 hours duration. Pain was associated with nausea and vomiting. She also noted SOB. No chest pain, cough, F/C, diarrhea, dysuria or hematuria. She has been drinking ETOH this week but had none today. Principal Diagnosis Acute on Chronic Pancreatitis Discharge Exam Constitutional WD/WN, vitals as above Eyes + anicteric sclerae ENMT Ears: no hearing impairment Neck trachea midline Respiratory normal respiratory effort, lungs clear to auscultation Cardiovascular RRR, no murmur, no edema Gastrointestinal (Abdomen) Inspection/Auscultation: normal bowel sounds Percussion/Palpation: abdomen soft; abdomen nontender Musculoskeletal Head/Neck/Chest: normocephalic and head atraumatic Skin no rashes, warm and dry Neurologic moves all extremities Psychiatric A+Ox3, euthymic affect (mildly anxious) Discharge Data Allergies Allergy/AdvReac Type Severity Reaction Status Date / Time buspirone [From BuSpar] Allergy Severe Unconscious, Verified 11/12/19 18:56 seizures quetiapine [From Seroquel] Allergy Severe Unconscious, Verified 11/12/19 18:56 seizures citalopram [From Celexa] AdvReac Intermediate Vomiting Verified 11/12/19 18:56 fluoxetine [From Prozac] AdvReac Intermediate VIOLENT Verified 11/12/19 18:56 VOMITING morphine AdvReac Intermediate "MAKES ME Verified 11/12/19 18:56 SICK(VOMITING)" vilazodone [From Viibryd] AdvReac Vomiting Verified 11/12/19 18:56 Consultations 11/12/19 22:19 ED Decision to Admit Stat 11/13/19 08:12 Consult Gastroenterology Routine Ordered Studies 11/12/19 19:01 CT abd pelvis IV con only Stat Hospital Course (1) Acute on chronic pancreatitis: - Reports episodes in the past - H/O alcohol abuse -- States she did quit drinking but due to social stressors she does admit to resumption of intake prior to this episode - CT - acute pancreatitis; heterogeneously diminished perfusion of the pancreatic head and neck; small pancreatic cystic foci on prior exam no longer well delineated; liver enlarged and mildly heterogenous; uterine fibroids noted - Had EUS on 09/2019 - pancreatic parenchymal abnormalities consisting of hyperechoic foci and shadowing foci were noted in pancreatic head - Lipase slightly increased from 700 to 1000 initially now normal - overall pain improved, some discomfort after eating fried josseline for lunch but tolerated dinner better -- However she is very stressed and anxious and I think increasing some issues with nausea/abdominal pain - improved with Phenergan -- Given recent alcohol consumption possibly some gastritis? she states she cannot tolerate chalky things so did not want a GI cocktail - Mild elevation of AST - likely related to alcohol consumption - GI consulted - appreciate input - favors mild pancreatitis - unlikely necrotizing - no leukocytosis no fever (2) Cirrhosis of liver: - In the setting of alcohol use - CT shows enlarged liver; slightly heterogenous - Encouraged alcohol cessation - patient agrees this needs to occur and reports stopping but recently resumed due to acute stressors (3) Portal vein thrombosis: - CT on admission reveals patent hepatic and portal veins - Diagnosed initially Jun 2019 - was evaluated by heme/onc and question culprit being compression from cysts/recurrent pancreatitis; mother did have a DVT/PE after surgery but no other family history of clots; was to have some hypercoaguable studies completed but I cannot find results and plan to run additional ones when off anticoagulation - Per Heme/Onc the plan was to F/U in November to discuss cessation of anticoagulation - Dr. Garcia recommending 3-6 months treatment - can arrange F/U - INR currently subtherapeutic at 1.6 will resume Warfarin 5 mg today - she is to have INR checked tomorrow and if still low can consider bridging however CT reveals resolution of clot - Patient is on Depo and did discuss BC as a possible contributor to clot formation. Could consider IUD or lower dose BC but still this could be a risk factor for clot formation - advised her to talk with her GYNE (4) Depression with anxiety: - Acute anxiety - requiring recent ED visit however also associated with alcohol consumption -- Reports have a stalker and had issues with this individual previously and he recent came back around. She is utilizing services through the [facility] and she feels this helps. She expresses guilt for resorting to alcohol consumption when she has increased stress/anxiety. She however expresses hope and excitement to get back to her job on Friday (still is anxious due to a lot of work). She denies SI/HI. She expresses a good support system in her mother - She does seem to have increased upset stomach when she starts getting anxious - however no vomiting or other symptoms - seems to calm down when she is able to calm down. Discussed staying until the AM to monitor but she would like to return home. Clinically she is well and can be safely D/Cd home. She does report acute stressors and anxiety but is clear minded and denies suicidal thoughts. - Continue Remeron 15 mg HS; Clonazepam PRN (5) Alcohol abuse: - AWSS protocol with Ativan utilized but not needed. Did use her Clonazepam - some anxiety noted especially when discussing her current social situation however no tremor, sweats, etc to suggest active withdrawal at this time - Continue folic acid and thiamine Total Time Total Time Spent Total Time Spent (In Minutes): Greater than 30 minutes Discharge Plan Discharge Items Patient Disposition: Home - Self-Care Reason For Visit: ACUTE ON CHRONIC PANCREATITIS Discharge Diagnosis: Acute on Chronic Pancreatitis Condition on Discharge: Fair Activity: Resume your previous activity Non-emergency contact: Primary Care Provider Call non-emergency contact if: you have any medication questions, your symptoms worsen and you have a fever Follow-up/Referrals: Norberto Harrington, [Primary Care Provider] - Rey Garcia [Physician] - (Can wait until Late Oct or November) Diet: Low Fat Addtl Attending Provider Instructions: Pancreatitis: - This was likely induced by alcohol which we have talked about during this stay. Continue to stay away from this. I know with added stress right now it can be difficult. But thankfully you have been able to avoid this before and therefore you can be successful again. Set backs happen but you just move on fro m here. I would encourage you to continue to use the [facility] as talking with someone is beneficial. - Thankfully some good news is your CAT scan shows resolution of some of the cysts on prior imaging in the pancreas. Continue to follow with the GI doctors for ongoing monitoring of the pancreas and the liver. - Recommend to continue a low fat diet and take your Creon. Keeping the diet on the project finance analyst side for a few days may be beneficial. Eat slowly to not feel overfilled. - Continue to drink plenty of water. You want to keep your urine a pale yellow to clear color. If it starts getting darker you know you need to drink more water - In regards to stopping drinking alcohol: We do recommend continuing a Folic acid supplement and a thiamine supplement. These are two things that tend to be missing in the diets when alcohol is used. Would recommend to continue these supplements. Portal Vein Clot: - Thankfully we do not see this on the CAT scan and likely it is resolved. You saw Dr. Garcia (blood doctor) when this was first diagnosed. Their thought was this was likely induced by having pancreatitis. Anything that causes a lot of inflammation over time can increase your risk of clots. His initial plan was to complete 3-4 months of anticoagulation and to see you in November. Recommend to get a follow-up appointment with him. - For now, would recommend continuing the coumadin and have your INR checked on Friday as you normally would. Your INR is 1.6 today - Will resume Warfarin 5 mg daily with level check tomorrow Pending Studies at Discharge: No Stand-Alone Forms: My [facility] Fromography, Smoking Cessation Medications and DC Order Prescriptions: New thiamine HCl (vitamin B1) [Vitamin B-1] 100 mg Tablet 100 mg PO QAM 30 Days Qty: 30 RF: 0 oxycodone-acetaminophen [Percocet] 5-325 mg tablet 1 tab PO Q8H PRN (Reason: pain) 3 Days Qty: 9 RF: 0 Continued multivitamin Tablet 1 tab PO DAILY RF: 0 medroxyprogesterone 150 mg/mL syringe 150 mg IM Q16W RF: 0 mirtazapine 15 mg tablet 15 mg PO HS RF: 0 promethazine 25 mg tablet 25 mg PO DAILY PRN (Reason: Nausea) RF: 0 folic acid 1 mg tablet 1 mg PO DAILY RF: 0 Creon 36,000-114,000- 180,000 unit capsule,delayed release(DR/EC) 3 cap PO TID PRN (Reason: Abdominal Discomfort) RF: 0 omeprazole 10 mg Capsule,Delayed Release(Dr/Ec) 10 mg PO DAILY RF: 0 warfarin 5 mg Tablet 5 mg PO DAILY RF: 0 B12 Active 1,000 mcg Tablet,Chewable 1,000 mcg PO PM RF: 0 Changed clonazepam 1 mg tablet 1 mg PO TID PRN (Reason: anxiety) Qty: 0 RF: 0 Discontinued oxycodone-acetaminophen [Percocet] 5-325 mg tablet 1 tab PO BID PRN (Reason: pain) RF: 0 Discharge Orders: Discharge Order (Routine); Ordered 11/14/19 Ordered By: Palma Gastelum Admission Data Admit Date/Time: 11/13/19 00:15 Attending Provider: Palma Gastelum Admit Provider: Thad Bojorquez Primary Care Provider: Norberto Harrington Other Providers: Thad Bojorquez ; Saji Soliz Other Interventions: Discharge Summary Assessment (RN) Last Done: 11/14/19 19:36 DC Date/Time DO NOT enter until pt leaves facility: 11/14/19 20:27 Coding Level of Care Code D/C Day Management >30 mins Diagnoses Acute on chronic pancreatitis K85.90; K86.1 Cirrhosis of liver K74.60 Portal vein thrombosis I81 Depression with anxiety F41.8 Alcohol abuse F10.10
[2019-11-14] MEDS ORDERED: clonazePAM 1 MG TAB PO ONE (20:15)
== END 2019-11-14 20:27 | disposition home or self-care (01) | DRG 438 ==
LOC: ED 18:13 → 2N 11-13 00:15 → SUATTDRO 11-13 00:15 → 2N 11-13 01:14

== ENCOUNTER 2021-04-12 17:17 | Inpatient (IN) ==
[2021-04-12] MEDS ORDERED: LACTATED RINGER'S 1,000 ML IV ONE (19:24)
[2021-04-12] MEDS ORDERED: HYDROmorphone INJ 1 MG/ML SYRINGE IV STA (19:28)
[2021-04-12] MEDS: ONDANSETRON INJ 2 MG/ML 2 ML VIAL IV STA ×2 (19:43→19:44)
[2021-04-12 19:46] LABS: Basophils # (auto) 0.04 K/uL (0-0.2); Basophils % (auto) 0.5 %; Eosinophils # (auto) 0.09 K/uL (0-0.5); Hemoglobin 16.2 g/dL (12.0-16.0); Immature Granulocytes # (auto) 0.02 K/uL (0.00-0.02); Immature Granulocytes % (auto) 0.2 %; Lymphocytes # (auto) 3.31 K/uL (1.2-3.4); Lymphocytes % (auto) 38.1 %; Mean Corpuscular Hemoglobin 33.1 pg (25-34); Mean Corpuscular Hgb Conc 33.8 g/dL (32-36); Mean Corpuscular Volume 98.2 fL (80-100); Mean Platelet Volume 9.4 fL (7.4-10.4); Monocytes # (auto) 0.77 K/uL (0.11-0.59); Monocytes % (auto) 8.9 %; Neutrophils # (auto) 4.46 K/uL (1.4-6.5); Neutrophils % (auto) 51.3 %; Platelet Count 499 K/uL (130-400); RDW Coefficient of Variation 13.7 % (11.5-14.5); RDW Standard Deviation 49.1 fL (36.4-46.3); Red Blood Count 4.89 M/uL (4.2-5.4); White Blood Count 8.69 K/uL (4.8-10.8)
[2021-04-12 20:31] LABS: Albumin Globulin Ratio 1.1 (0.9-2); Albumin Level 4.5 gm/dl (3.4-5.0); BUN Creatinine Ratio 13.9 (10-20); Calcium 9.1 mg/dl (8.5-10.1); Creatinine Clr Calc Pharmacy 75.6 ml/min; Est GFR (African American) 104.6 ml/min; Est GFR (Non-African American) 90.2 ml/min; Globulin 4.1 gm/dl (2.5-4.0); Potassium 4.1 mmol/L (3.5-5.1); Total Protein 8.6 gm/dl (6.4-8.2)
--- NOTE | 2021-04-12 20:31 | Emergency Department Note ---
ED Visit Note This patient was seen in concert with Dr. Cuba and we discussed and agreed upon the history, physical, assessment and plan. See attending's note for details. Resident Activity Tracking Resident Involvement: Resident Care Provided Care Provided: Adult ED
[2021-04-12] MEDS ORDERED: FAMOTIDINE 20MG IV PUSH 20 MG/5 ML SYR IV STA (20:56)
--- NOTE | 2021-04-12 20:59 | Emergency Department Note ---
Impression & Plan Acute upper abdominal pain, Colitis, Nausea, vomiting, and diarrhea, Alcohol abuse ED Provider Note INFORMANT: Patient ED PROVIDER(S): Harjinder Cuba MD CHIEF COMPLAINT: Abdominal pain PLAN: Disposition: Admitted Condition: Good Outpatient prescription management: none Referral: None MEDICAL DECISION MAKING: Patient presented because of abdominal pain. She has a history of pancreatitis. She also has history of chronic alcohol abuse. A work-up was initiated. The patient's CBC, chemistry panel, LFTs and lipase were rather unremarkable. Her alcohol level was moderately elevated. The patient underwent CT imaging of the abdomen pelvis with IV and oral contrast. She received 2 doses of IV Dilaudid. The patient received several doses of IV Zofran. She had 2 episodes of vomiting in the emergency department. She underwent CT imaging and was found to have suspected colitis of the transverse colon. This would fit with her nausea, diarrhea, and location of pain. The patient was given additional nausea medication with Reglan and Benadryl. The patient denies any history of withdrawal however she was moderately tachycardic. She was given a banana bag and a dose of IV Ativan. As she is still nauseated and symptomatic the patient cannot be discharged. Consultation was made with Dr. Arnoldo Gore of the [facility] service. Patient was evaluated in the ER for further management. The patient was seen and examined with , resident physician. We discussed the case and treatments ordered, reviewed the results, and determine the disposition. I have been directly involved with the management and disposition as well as independently evaluated the patient as documented in this note. Triage Nursing notes reviewed and agree them. Vital Signs: reviewed and remarkable for no significant abnormalities Differential diagnosis: Pancreatitis, complication of alcohol abuse, appendicitis, ovarian cyst, ovarian torsion, ectopic , TOA, PID, infections, diverticulitis, UTI, obstruction, mesenteric ischemia, aortic pathology, inflammatory bowel disease, renal colic, PUD, biliary pathology, hernia, volvulus, constipation, as well as other pathologies. Diagnostics interpreted by me: ECG: none Cardiac Monitoring: Cardiac monitoring ordered by me: The patient was placed on continuous cardiac monitoring and observed. It revealed a normal sinus rhythm at 94 beats per minute without ectopy or evidence of dysrhythmia. Imaging studies: CT scan of the abdomen pelvis raises concerns for colitis. I refer you to the EMR for further details. HPI: The patient is a 40 year old female who presents to the Emergency Room with complaints of abdominal pain. This started 3 days ago and is severe and sharp. The patient also notes the following associated symptoms, nausea, vomiting. The patient has found no relieving factors. Current pain is rated as 10+/10. Hx of ETOH abuse and pancreatitis. Pt denies LOC, headache, fevers, chills, diaphoresis, visual changes, neck pain, chest pain, breathing difficulties, back pain, melena, hematochezia, urinary symptoms, numbness, weakness, lymphadenopathy, rash, or other complaints. ROS: See above HPI for pertinent positives & negatives. A total of 10 systems reviewed and were otherwise negative. PAST MEDICAL HISTORY:See Below , pancreatitis PAST SURGICAL HISTORY:See Below, GB FAMILY HISTORY:See Below SOCIAL HISTORY:See Below, +etoh HOME MEDICATIONS:See Below ALLERGIES:See Below VITALS:See Below PHYSICAL EXAMINATION: GENERAL: Awake, alert, uncomfortable-appearing, in no distress HENT: Normocephalic, atraumatic. Oropharynx unremarkable. EYES: Normal conjunctiva. Sclera non-icteric. NECK: Inspection normal. Non-tender. Supple. No nuchal rigidity. FROM. No masses. RESPIRATORY: Clear to auscultation. No wheezes. No rales. Normal respiratory effort. CARDIAC: Tachycardic rate. Normal rhythm. No murmurs. No rubs. Extremities warm and well perfused. Pulses equal. No JVD. GI: Soft, non-distended. Minimal epigastric tenderness to palpation. No rebound or guarding. No masses. RECTAL: Deferred. MUSCULOSKELETAL: Atraumatic. Chest examination reveals no tenderness. The back is symmetrical on inspection without obvious abnormality. There is no CVA tenderness to palpation. No joint edema. LOWER EXTREMITIES: Calves are equal size bilaterally and non-tender. No edema. No discoloration. NEURO: Normal sensorium. No sensory or motor deficits noted. SKIN: No rash or jaundice noted. Harjinder Cuba MD Past Med/Surg History Medical History Acne Acute gallstone pancreatitis Acute on chronic pancreatitis Acute pancreatitis Alcohol abuse Anxiety and depression Back pain, chronic Chronic neck pain Cough GERD (gastroesophageal reflux disease) Hiatal hernia Insomnia Kidney failure 2009 (RESOLVED/SAW A MOVIE [employer]OR) Liver enzyme elevation Marijuana use Migraines Nausea Pancreatic pseudocyst Pancreatitis alcoholic Pancreatitis, alcoholic, acute Panic attacks Peptic ulcer disease 2 YEARS AGO DX PTSD (post-traumatic stress disorder) Sleeping difficulty Surgical History "LAST APRIL" History of breast biopsy History of cholecystectomy History of esophagogastroduodenoscopy (EGD) History of esophagogastroduodenoscopy (EGD) 07/02/19- Dr. Gala Willett History of lumpectomy of right breast BENIGN History of tooth extraction Family History Father Family history of diabetes mellitus Myocardial infarction Stroke Hypertension Grandfather (Maternal) Family history of diabetes mellitus Grandmother (Maternal) Family history of diabetes mellitus Hypertension Cancer Mother Hypothyroidism Grandfather (Paternal) Cancer Heart problem Grandmother (Paternal) Hypertension Denies family history of Ovarian cancer Prostate cancer Breast cancer Colorectal cancer Social History Smoking Status: Current every day smoker Tobacco Type: Cigarettes Cigarettes Per Day: 7; Second Hand Exposure: No; Hx Alcohol Use: No Hx Substance Use: No Preferred Language: Dominican Communication Ability: Effective Visual Impairment: No Limitations Hearing Ability: Normal Survey Technologist Required: No Beliefs That Will Affect Care: None marital status: Single Current Living Situation: Family current occupational status: employed Feels Safe at Home: Yes Childhood Exposure to Second-Hand Smoke: No Dental Care, Regularly: Yes Physical Activity Frequency: Does not Exercise Seatbelt Use: always Sunscreen Use: Yes Do you think of yourself as: straight/heterosexual Assistive Devices: None Allergies Allergies Allergy/AdvReac Type Severity Reaction Status Date / Time buspirone [From BuSpar] Allergy Severe Unconscious, Verified 04/12/21 20:05 seizures quetiapine [From Seroquel] Allergy Severe Unconscious, Verified 04/12/21 20:05 seizures citalopram [From Celexa] AdvReac Intermediate Vomiting Verified 04/12/21 20:05 morphine AdvReac Intermediate "MAKES ME Verified 04/12/21 20:05 SICK(VOMITING)" vilazodone [From Viibryd] AdvReac Vomiting Verified 04/12/21 20:05 Home Meds Home Medications Medication Instructions Recorded Confirmed multivitamin 1 tab PO DAILY 03/18/19 04/12/21 mecobalamin (vitamin B12) 1,000 1,000 mcg PO PM 11/10/19 04/12/21 mcg chewable tablet (B12 Active) benzoyl peroxide 5 % topical 1 appln TOP DAILY PRN gm 03/15/20 04/12/21 cleanser magnesium 200 mg tablet 200 mg PO DAILY 03/15/20 04/12/21 thiamine HCl (vitamin B1) 100 mg 100 mg PO DAILY 03/15/20 04/12/21 tablet cannabidiol 100 mg/mL oral solution 1 mg PO DAILY PRN 02/27/21 04/12/21 apixaban 5 mg tablet (Eliquis) 5 mg PO Q12 04/12/21 04/12/21 ondansetron 4 mg disintegrating 4 mg PO Q6H PRN 04/12/21 04/12/21 tablet Previous Rx's Medication Instructions Recorded [id number] 3 cap PO TID 90 Days #810 cap 09/20/20 36,000-114,000-180,000 unit capsule,delay rel (Creon) hydroxyzine HCl 25 mg tablet 25 mg PO Q6H PRN #60 tab 10/03/20 folic acid 1 mg tablet 1 mg PO DAILY #90 tab 10/31/20 sumatriptan succinate 100 mg 100 mg PO UD PRN #16 tab 12/22/20 tablet (Imitrex) pantoprazole 40 mg tablet,delayed 40 mg PO BID #180 tab 01/24/21 release fluoxetine 10 mg capsule 10 mg PO DAILY #90 cap 02/28/21 hydrocodone 2.5 mg-acetaminophen 1 tab PO Q6H PRN #20 tab 03/02/21 325 mg tablet hydrocodone 5 mg-acetaminophen 325 1 tab PO Q6H PRN #20 tab 03/15/21 mg tablet clonazepam 2 mg tablet 2 mg PO BID PRN #60 tab 04/09/21 promethazine 25 mg tablet 25 mg PO DAILY PRN #30 tab 04/09/21 Results & Data (ED) Vital Signs Vital Signs - 24 hr 04/12/21 17:40 04/12/21 20:00 04/12/21 20:30 Temperature 36.9 C Temperature Source Temporal Artery Scan Pulse Rate 133 H 102 H 104 H Pulse Rate from SpO2 Sensor 104 H 104 H Respiratory Rate 18 16 18 Blood Pressure 134/96 132/91 122/89 Blood Pressure Mean 108 104 100 Pulse Oximetry 97 96 96 Oxygen Delivery Method Room Air Room Air Room Air Sepsis Recent Fever Within 48 Hours No Sepsis New/Unexplained Change in Mental Status N/A Sepsis Action Taken by Nursing No Action Required 04/12/21 21:00 04/12/21 21:30 04/12/21 23:00 Temperature Temperature Source Pulse Rate 94 H 95 H 106 H Pulse Rate from SpO2 Sensor 94 H 96 H 105 H Respiratory Rate 18 18 14 Blood Pressure 125/86 123/91 135/99 Blood Pressure Mean 99 101 111 Pulse Oximetry 94 92 98 Oxygen Delivery Method Room Air Sepsis Recent Fever Within 48 Hours Sepsis New/Unexplained Change in Mental Status Sepsis Action Taken by Nursing 04/12/21 23:34 04/13/21 00:00 04/13/21 00:30 Temperature Temperature Source Pulse Rate 97 H 94 H 96 H Pulse Rate from SpO2 Sensor 96 H 94 H Respiratory Rate 15 10 L 11 L Blood Pressure 115/80 127/86 150/90 H Blood Pressure Mean 91 99 110 Pulse Oximetry 98 98 96 Oxygen Delivery Method Room Air Room Air Room Air Sepsis Recent Fever Within 48 Hours Sepsis New/Unexplained Change in Mental Status Sepsis Action Taken by Nursing 04/13/21 01:03 04/13/21 01:30 04/13/21 02:00 Temperature Temperature Source Pulse Rate 105 H 101 H 99 H Pulse Rate from SpO2 Sensor 100 H 101 H 99 H Respiratory Rate 21 10 L 13 Blood Pressure 140/90 125/95 111/88 Blood Pressure Mean 106 105 95 Pulse Oximetry 97 94 96 Oxygen Delivery Method Room Air Sepsis Recent Fever Within 48 Hours Sepsis New/Unexplained Change in Mental Status Sepsis Action Taken by Nursing 04/13/21 02:30 Temperature Temperature Source Pulse Rate 94 H Pulse Rate from SpO2 Sensor 95 H Respiratory Rate 12 Blood Pressure 130/96 Blood Pressure Mean 107 Pulse Oximetry 94 Oxygen Delivery Method Sepsis Recent Fever Within 48 Hours Sepsis New/Unexplained Change in Mental Status Sepsis Action Taken by Nursing Laboratory Data Result diagrams: 04/12/21 19:31 04/12/21 19:31 Lab Results 04/12/21 04/12/21 04/12/21 Range/Units 19:31 19:31 19:55 WBC 8.69 (4.8-10.8) K/uL RBC 4.89 (4.2-5.4) M/uL Hgb 16.2 H (12.0-16.0) g/dL Hct 48.0 H (37-47) % MCV 98.2 (80-100) fL MCH 33.1 (25-34) pg MCHC 33.8 (32-36) g/dL RDW Std Deviation 49.1 H (36.4-46.3) fL RDW Coeff of Jessica 13.7 (11.5-14.5) % Plt Count 499 H (130-400) K/uL MPV 9.4 (7.4-10.4) fL Immature Gran % (Auto) 0.2 % Neut % (Auto) 51.3 % Lymph % (Auto) 38.1 % [place] % (Auto) 8.9 % Eos % (Auto) 1.0 % Baso % (Auto) 0.5 % Neut # (Auto) 4.46 (1.4-6.5) K/uL Lymph # (Auto) 3.31 (1.2-3.4) K/uL [place] # (Auto) 0.77 H (0.11-0.59) K/uL Eos # (Auto) 0.09 (0-0.5) K/uL Baso # (Auto) 0.04 (0-0.2) K/uL Immature Gran # (Auto) 0.02 (0.00-0.02) K/uL Sodium 140 (136-145) mmol/L Potassium 4.1 (3.5-5.1) mmol/L Chloride 107 (98-107) mmol/L Carbon Dioxide 24 (21-32) mmol/L Anion Gap 9.0 (3-11) BUN 11 (7-18) mg/dl Creatinine 0.81 (0.6-1.2) mg/dl Est Cr Clr Drug Dosing 75.6 ml/min Est GFR ( Amer) 104.6 ml/min Est GFR (Non-Af Amer) 90.2 ml/min BUN/Creatinine Ratio 13.9 (10-20) Glucose 98 (70-99) mg/dl Calcium 9.1 (8.5-10.1) mg/dl Total Bilirubin 1.0 (0.2-1) mg/dl AST 149 H (15-37) U/L ALT 74 (12-78) U/L Alkaline Phosphatase 197 H (45-117) U/L Total Protein 8.6 H (6.4-8.2) gm/dl Albumin 4.5 (3.4-5.0) gm/dl Globulin 4.1 H (2.5-4.0) gm/dl Albumin/Globulin Ratio 1.1 (0.9-2) Lipase 160 (73-393) U/L Specimen Hemolysis Ethyl Alcohol mg/dL 201.0 H (0-3) mg/dl Administered Medications Hydromorphone HCl (Hydromorphone Inj 0.5 Mg/0.5 Ml Syr) 0.5 mg IV Q15M PRN PRN Reason: Pain Stop: 04/26/21 22:27 Last Admin: 04/12/21 23:06 Dose: 0.5 mg Documented by: [id number] Discontinued Medications Diphenhydramine HCl (Diphenhydramine 50 Mg/Ml Vial) 25 mg IV NOW STA Stop: 04/13/21 00:59 Last Admin: 04/13/21 01:04 Dose: 25 mg Documented by: [id number] Hydromorphone HCl (Hydromorphone Inj 1 Mg/Ml Syringe) 1 mg IV NOW STA Stop: 04/12/21 19:29 Last Admin: 04/12/21 19:44 Dose: 1 mg Documented by: [id number] Lactated Ringer's (Lr) 1,000 mls @ 999 mls/hr IV .Q1H1M ONE Stop: 04/12/21 20:24 Last Infusion: 04/12/21 20:45 Dose: 0 mls/hr Documented by: [id number] Admin: 04/12/21 19:44 Dose: 999 mls/hr Documented by: [id number] Famotidine (Pepcid 20mg Iv Push) 20 mg in 5 mls @ 2.5 mls/min IV NOW STA Stop: 04/12/21 20:57 Last Admin: 04/12/21 21:38 Dose: 2.5 mls/min Documented by: [id number] Lorazepam (Ativan) 1 mg in 2 mls @ 2 mls/min IV NOW STA Stop: 04/13/21 01:19 Last Admin: 04/13/21 01:46 Dose: 2 mls/min Documented by: [id number] Multivitamins 10 ml/ Thiamine HCl 100 mg/ Folic Acid 1 mg/Sodium Chloride 1,011.2 mls @ 1,011.2 mls/hr IV .Q1H ONE Stop: 04/13/21 02:17 Last Admin: 04/13/21 02:23 Dose: 1,011.2 mls/hr Documented by: [id number] Ioversol (Optiray 320 100ml) 94 ml IV ONCE ONE Stop: 04/12/21 23:00 Last Admin: 04/12/21 22:59 Dose: 94 ml Documented by: [id number] Metoclopramide HCl (Metoclopramide Hcl Inj 5 Mg/Ml 2 Ml Vial) 5 mg IV ONE ONE Stop: 04/13/21 00:59 Last Admin: 04/13/21 01:06 Dose: 5 mg Documented by: [id number] Ondansetron HCl (Ondansetron Inj 2 Mg/Ml 2 Ml Vial) 4 mg IV NOW STA Stop: 04/12/21 19:29 Last Admin: 04/12/21 19:44 Dose: 4 mg Documented by: [id number] Admin: 04/12/21 19:43 Dose: 4 mg Documented by: [id number] Ondansetron HCl (Ondansetron Inj 2 Mg/Ml 2 Ml Vial) 4 mg IV NOW STA Stop: 04/12/21 22:29 Last Admin: 04/12/21 23:03 Dose: 4 mg Documented by: [id number] Discharge Plan Visit Data Chief Complaint: Abdominal Pain Stated Complaint: ABDOMINAL PAIN ED Provider: Harjinder Cuba ED Midlevel Provider: Brenda Kingston Discharge Problem: Acute upper abdominal pain, Colitis, Nausea, vomiting, and diarrhea, Alcohol abuse Forms Stand Alone Forms: [facility] Prescriptions Prescriptions: No Action Creon 36,000-114,000- 180,000 unit capsule,delayed release(DR/EC) 3 cap PO TID 90 Days Qty: 810 RF: 1 folic acid 1 mg tablet 1 mg PO DAILY Qty: 90 RF: 1 sumatriptan succinate [Imitrex] 100 mg tablet 100 mg PO UD PRN (Reason: Migraine Headache) Qty: 16 RF: 4 pantoprazole 40 mg tablet,delayed release (DR/EC) 40 mg PO BID Qty: 180 RF: 1 hydrocodone-acetaminophen 2.5-325 mg tablet 1 tab PO Q6H PRN (Reason: pain) Qty: 20 RF: 0 hydrocodone-acetaminophen 5-325 mg tablet 1 tab PO Q6H PRN (Reason: pain) Qty: 20 RF: 0 clonazepam 2 mg tablet 2 mg PO BID PRN (Reason: anxiety) Qty: 60 RF: 0 promethazine 25 mg tablet 25 mg PO DAILY PRN (Reason: Nausea) Qty: 30 RF: 5 fluoxetine 10 mg capsule 10 mg PO DAILY Qty: 90 RF: 3 benzoyl peroxide 5 % cleanser 1 appln TOP DAILY PRN (Reason: Skin Cleansing) RF: 0 thiamine HCl (vitamin B1) 100 mg tablet 100 mg PO DAILY RF: 0 magnesium 200 mg tablet 200 mg PO DAILY RF: 0 hydroxyzine HCl 25 mg tablet 25 mg PO Q6H PRN (Reason: anxiety) Qty: 60 RF: 3 multivitamin Tablet 1 tab PO DAILY RF: 0 B12 Active 1,000 mcg Tablet,Chewable 1,000 mcg PO PM RF: 0 cannabidiol 100 mg/mL Solution 1 mg PO DAILY PRN (Reason: Pain) RF: 0 Eliquis 5 mg tablet 5 mg PO Q12 RF: 0 ondansetron 4 mg tablet,disintegrating 4 mg PO Q6H PRN (Reason: Nausea) RF: 0 Referrals Referrals: Diane Sorenson MD [Primary Care Provider] -
[2021-04-12] MEDS ORDERED: ONDANSETRON INJ 2 MG/ML 2 ML VIAL IV STA (22:28)
[2021-04-12] MEDS ORDERED: HYDROmorphone INJ 0.5 MG/0.5 ML SYR IV PRN (22:28)
[2021-04-12] MEDS ORDERED: OPTIRAY 320 100ml IV ONE (22:59)
[2021-04-13] MEDS ORDERED: METOCLOPRAMIDE HCL INJ 5 MG/ML 2 ML VIAL IV ONE (00:58)
[2021-04-13] MEDS ORDERED: diphenhydrAMINE 50 MG/ML VIAL IV STA (00:58)
[2021-04-13] MEDS ORDERED: LORazepam 1 MG/2 ML VIAL IV STA (01:18)
[2021-04-13] MEDS ORDERED: MULTI-VITAMIN INFUSION 10 ML, THIAMINE HCL 100 MG, FOLIC ACID 1 MG in SODIUM CHLORIDE 0... IV ONE (01:18)
--- NOTE | 2021-04-13 02:26 | History & Physical Report ---
Date of Service April 13, 2021 Assessment & Plan (1) Colitis: (2) Alcohol abuse: (3) Anxiety and depression: (4) Cirrhosis of liver: Plan: 40-year-old female past medical history significant for alcohol use disorder, anxiety, depression, portal vein thrombosis on chronic Xarelto, liver cirrhosis admitted for nonspecific colitis with precautionary monitoring per AWSS protocol. Colitis: CTAP with findings suggestive of nonspecific colitis. N.p.o. except meds, NSS at 100 cc/h. Stool studies sent. Zofran as needed for nausea, advance diet as tolerated. Alcohol use disorder, liver cirrhosis: History of alcohol use disorder and has been admitted in the past for AWSS protocol. Patient alcohol level 201, incongruous with reported alcohol use history. We will start AWSS risk protocol; no current complaints of hallucinations, agitation, anxiety. Continue thiamine, folate, multivitamin. History of portal vein thrombosis: Continue Eliquis. Pancreatic abnormality: CTAP with hypodensity noted at the pancreatic body as well as dystrophic calcification of the pancreatic head. MRI abdomen performed 02/2021 showed 1 cm T2 isointense nonenhancing nodule at the pancreatic head neck junction. Consider further imaging; MRI abdomen report recommended follow-up imaging in 6 months. Anxiety, depression: Continue home fluoxetine, hydroxyzine. CODE STATUS: Full code FEN: N.p.o. except meds and sips, IV fluids and vitamins as above DVT prophylaxis: Eliquis Dispo: MedSurg History of Present Illness Chief Complaint: Nausea, vomiting, diarrhea Primary Care Provider: Diane Sorenson MD 40-year-old female past medical history significant for alcohol use disorder, anxiety, depression, portal vein thrombosis on chronic Xarelto, liver cirrhosis presented to the ER for several days of nausea, vomiting, and diarrhea. Does not recall any specific food that incited these symptoms. Has not had a change in her alcohol use; reports 2 to 3 glasses of wine a day, last drink today (only had one drink today per patient). No associated shortness of breath, chest pain, dizziness or headaches, fevers. Does endorse some chills and general malaise. No abdominal pain. In the ER patient had CTAP which showed findings suggestive of possible colitis, stable known hypodensity at the pancreatic body. Lab work without leukocytosis, no electrolyte abnormalities, AST 149, normal INR, normal lipase, EtOH level of 201. Patient received medications for nausea and IV fluids. Allergies Allergy/AdvReac Type Severity Reaction Status Date / Time buspirone [From BuSpar] Allergy Severe Unconscious, Verified 04/12/21 20:05 seizures quetiapine [From Seroquel] Allergy Severe Unconscious, Verified 04/12/21 20:05 seizures citalopram [From Celexa] AdvReac Intermediate Vomiting Verified 04/12/21 20:05 morphine AdvReac Intermediate "MAKES ME Verified 04/12/21 20:05 SICK(VOMITING)" vilazodone [From Viibryd] AdvReac Vomiting Verified 04/12/21 20:05 Home Medications Medication Instructions Recorded Confirmed Type multivitamin 1 tab PO DAILY 03/18/19 04/12/21 History mecobalamin (vitamin B12) 1,000 1,000 mcg PO PM 11/10/19 04/12/21 History mcg chewable tablet (B12 Active) benzoyl peroxide 5 % topical 1 appln TOP DAILY PRN gm 03/15/20 04/12/21 History cleanser magnesium 200 mg tablet 200 mg PO DAILY 03/15/20 04/12/21 History thiamine HCl (vitamin B1) 100 mg 100 mg PO DAILY 03/15/20 04/12/21 History tablet sderfa-[id number]-[id number] 3 cap PO TID 90 Days #810 cap 09/20/20 04/12/21 Rx 36,000-114,000-180,000 unit capsule,delay rel (Creon) hydroxyzine HCl 25 mg tablet 25 mg PO Q6H PRN #60 tab 10/03/20 04/12/21 Rx folic acid 1 mg tablet 1 mg PO DAILY #90 tab 10/31/20 04/12/21 Rx sumatriptan succinate 100 mg 100 mg PO UD PRN #16 tab 12/22/20 04/12/21 Rx tablet (Imitrex) pantoprazole 40 mg tablet,delayed 40 mg PO BID #180 tab 01/24/21 04/12/21 Rx release cannabidiol 100 mg/mL oral solution 1 mg PO DAILY PRN 02/27/21 04/12/21 History fluoxetine 10 mg capsule 10 mg PO DAILY #90 cap 02/28/21 04/12/21 Rx hydrocodone 2.5 mg-acetaminophen 1 tab PO Q6H PRN #20 tab 03/02/21 04/12/21 Rx 325 mg tablet hydrocodone 5 mg-acetaminophen 325 1 tab PO Q6H PRN #20 tab 03/15/21 04/12/21 Rx mg tablet clonazepam 2 mg tablet 2 mg PO BID PRN #60 tab 04/09/21 04/12/21 Rx promethazine 25 mg tablet 25 mg PO DAILY PRN #30 tab 04/09/21 04/12/21 Rx apixaban 5 mg tablet (Eliquis) 5 mg PO Q12 04/12/21 04/12/21 History ondansetron 4 mg disintegrating 4 mg PO Q6H PRN 04/12/21 04/12/21 History tablet Past Med/Surg History Medical History Acne Acute gallstone pancreatitis Acute on chronic pancreatitis Acute pancreatitis Alcohol abuse Anxiety and depression Back pain, chronic Chronic neck pain Cough GERD (gastroesophageal reflux disease) Hiatal hernia Insomnia 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 Gala Willett History of lumpectomy of right breast BENIGN History of tooth extraction Family History Father Family history of diabetes mellitus Myocardial infarction Stroke Hypertension Grandfather (Maternal) Family history of diabetes mellitus Grandmother (Maternal) Family history of diabetes mellitus Hypertension Cancer Mother Hypothyroidism Grandfather (Paternal) Cancer Heart problem Grandmother (Paternal) Hypertension Denies family history of Ovarian cancer Prostate cancer Breast cancer Colorectal cancer Social History Smoking Status: Current every day smoker Tobacco Type: Cigarettes Cigarettes Per Day: 7; Second Hand Exposure: No; Do You Dip or Chew Tobacco: No; Hx Alcohol Use: Yes Alcohol type: wine Hx Substance Use: Yes Last Used Substance: Days (ago) Last Used Substance Other:: MEDICAL MARIJAUNA PRESCRIBED Substance Use Type Other:: medicinal marijuana Preferred Language: German Communication Ability: Effective Visual Impairment: No Limitations Hearing Ability: Normal 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: No Beliefs That Will Affect Care: None marital status: Single Current Living Situation: Parent current occupational status: employed Other Information That Helps Us Care for You: No Feels Safe at Home: Yes Safety Concerns: Feels Safe At This Time Childhood Exposure to Second-Hand Smoke: No Dental Care, Regularly: Yes Physical Activity Frequency: Does not Exercise Seatbelt Use: always Sunscreen Use: Yes Do you think of yourself as: straight/heterosexual Assistive Devices: None Review of Systems Review of Systems: All systems reviewed & are unremarkable except as noted in HPI & below Constitutional: + malaise; no fever and no chills Respiratory: no cough and no dyspnea Cardiovascular: no chest pain, no palpitations and no edema Gastrointestinal: + nausea, + vomiting and + diarrhea/loose stools; no abdominal pain and no constipation Genitourinary: no dysuria and no hematuria Physical Exam Constitutional: WD/WN, vitals as above Eyes: PERRL, conjunctivae normal, anicteric sclerae ENMT: external ear and nose normal, oropharynx normal Neck: normal visual inspection Respiratory: normal respiratory effort, lungs clear to auscultation Cardiovascular: RRR, no murmur, no edema Gastrointestinal (Abdomen): normal bowel sounds, soft, nontender, no hepatos plenomegaly Musculoskeletal: no cyanosis or clubbing, extremities motor strength 5/5 Skin: no rashes, warm and dry Neurologic: Normal speech. No tremors. Psychiatric: A+Ox3, euthymic affect Results & Data Results & Data ([facility]) Vital Signs (Past 12 Hours) Vital Signs Temp Pulse Resp BP Pulse Ox 04/13/21 01:03 105 H 21 140/90 97 04/13/21 00:30 96 H 11 L 150/90 H 96 04/13/21 00:00 94 H 10 L 127/86 98 04/12/21 23:34 97 H 15 115/80 98 04/12/21 23:00 106 H 14 135/99 98 04/12/21 21:30 95 H 18 123/91 92 04/12/21 21:00 94 H 18 125/86 94 04/12/21 20:30 104 H 18 122/89 96 04/12/21 20:00 102 H 16 132/91 96 04/12/21 17:40 36.9 C 133 H 18 134/96 97 Code Status & VTE Plan VTE Prophylaxis Plan VTE Prophylaxis will be ordered: Yes Supervising Physician Co-Signing Physician Notes Attending addendum: I have physically seen this patient, have supervised the medical residents activities, and agree with the H&P unless as otherwise noted. Assessment and Plan: Alcohol withdrawal/alcohol abuse- AWSS protocol with IV Ativan Folic acid 1 mg p.o. daily Thiamine 100 mg p.o. daily Nephrocaps one p.o. daily Nonspecific colitis- N.p.o. except meds NSS 100 mils per hour Follow stool studies Zofran 4 mg IV every 6 hours as needed Portal vein thrombosis- Continue Eliquis Pancreatic lesion- Work-up as noted Remaining orders and notations as noted Resident Activity Tracking Resident Involvement: Resident Care Provided Care Provided: Adult Hospital Medicine
[2021-04-13] MEDS ORDERED: LORazepam 1 MG TAB PO PRN (05:53)
[2021-04-13] MEDS ORDERED: PROMETHAZINE HCL 25 MG TAB PO PRN (05:53)
[2021-04-13] MEDS ORDERED: HYDROCODONE/ACETAMOPHEN 5/325MG TAB PO PRN (05:53)
[2021-04-13] MEDS: SODIUM CHLORIDE 0.9% 1000ML 1,000 ML IV SCH ×2 (06:11→16:17)
[2021-04-13] MEDS: ONDANSETRON INJ 2 MG/ML 2 ML VIAL IV PRN ×3 (06:35→23:25)
[2021-04-13] MEDS: clonazePAM 1 MG TAB PO PRN ×2 (08:06→19:51)
[2021-04-13] MEDS: PANCREAZE (LIPASE 10,500U) CAP PO SCH ×3 (08:07→17:41)
[2021-04-13] MEDS: MULTIVITAMIN TAB PO SCH (08:07)
[2021-04-13] MEDS: APIXABAN 5 MG TABLET PO SCH ×2 (08:08→22:10)
[2021-04-13] MEDS: FLUoxetine HCL 10 MG CAP PO SCH (08:08)
[2021-04-13] MEDS: PANTOprazole 40 MG TAB PO SCH ×2 (08:08→22:10)
[2021-04-13] MEDS: THIAMINE HCL 100 MG TAB PO SCH (08:08)
[2021-04-13] MEDS: FOLIC ACID 1 MG TAB PO SCH (08:08)
--- NOTE | 2021-04-13 08:09 | CT Scan Report ---
CT abd pelvis oral and IV con CLINICAL HISTORY: Abdominal pain. History of chronic pancreatitis. COMPARISON STUDY: CT scan dated 11/12/2019, MRI dated 03/08/2021 TECHNIQUE: The patient was scanned following administration of dilute oral contrast. The patient had difficulty tolerating oral contrast and vomited some of the orally administered contrast. The patient was then scanned in a dynamic helical fashion during intravenous administration of 93 cc of Optiray 320. A dose lowering technique was utilized adhering to the principles of ALARA. CT DOSE: 264.10 mGy.cm FINDINGS: Lower chest: The heart is normal in size and configuration, without pericardial effusion. The lung ba ses and pleural spaces are clear. Liver: The contrast-enhanced liver is normal in size, contour, and attenuation. There is no intrahepa tic biliary ductal dilatation. The hepatic veins and portal veins are patent. Gallbladder: Surgically absent Spleen: Normal in size and attenuation. Pancreas: There is an indeterminate 12 mm lesion within the pancreas at the head neck junction. This appears smaller than a corresponding cystic lesion as visualized on a CT scan performed May 9. There are pancreatic head calcifications Adrenal glands: Unremarkable. Kidneys: There is symmetric renal cortical enhancement. The kidneys are normal in size without hydron ephrosis. Bowel: There are no transition zones indicate bowel obstruction. The appendix appears normal. There i s no acute diverticulitis. There is borderline pancreatic colonic wall thickening. This could be seco ndary to incomplete distention or a subtle colitis. Peritoneum: There is no intraperitoneal free air or abdominal ascites. Vasculature: The abdominal aorta is normal in course and caliber. Adenopathy: None. Pelvic viscera: There is an indwelling IUD. There is a 2 cm right ovarian follicle. Skeletal structures: No destructive osseous lesions are seen. IMPRESSION: 1. No evidence of bowel obstruction. No evidence of free air 2. Pancreatic head calcifications, likely secondary to chronic pancreatitis 3. Indeterminate 12 mm hypodense lesion within the pancreas head neck junction. It should be noted th at on a prior CT scan performed May 2019, there is a corresponding 14 mm cystic lesion at the s cj location. This would tend to favor a post inflammatory lesion. Close follow-up is however warrant ed. 4. Normal appendix 5. Mild colonic wall thickening, a finding which could represent underdistention, or a infectious/inf lammatory colitis ACT 112: Negative or not required by law. Electronically signed by: Willis Virgen M.D. 04/13/2021 8:08 AM
[2021-04-13] MEDS: LORazepam 1 MG TAB PO PRN (17:41)
[2021-04-13] MEDS: hydrOXYzine HCl 25 MG TAB PO PRN (18:31)
--- NOTE | 2021-04-13 23:55 | Communication Note ---
Date of Service: April 13, 2021 Saw patient early afternoon today. Was resting comfortably. Main complaint was that of anxiety. Multiple stressors outside of the hospital. No stool since getting to the floor. Nausea improved. No further vomiting. Asks for something to eat. Doesn't want clears or full liquids. VSS, afebrile gen - NAD mouth - MM dry heart - RRR, s1 s2 lungs - CTA b/l abd - mildly distended, BS+, NT ext - no edema labs reviewed imaging reviewed A/P: N/V/D c/w gastroenteritis. CT evidence of colitis. viral? c diff? bacterial? other? Chronic alcohol abuse - could have alcoholic gastritis causing abd pain and N/V. Allow limited amount of crackers/powerade/gatorade. If she does well can try tray of low fiber food. Cont IVF. Labs in am. await stool studies. Camilo Guajardo MD
[2021-04-14] MEDS: SODIUM CHLORIDE 0.9% 1000ML 1,000 ML IV SCH ×2 (01:56→12:55)
[2021-04-14] MEDS: hydrOXYzine HCl 25 MG TAB PO PRN ×2 (02:05→13:08)
[2021-04-14] MEDS: ONDANSETRON INJ 2 MG/ML 2 ML VIAL IV PRN (05:47)
--- NOTE | 2021-04-14 06:01 | Billing Data ---
Date of Service April 14, 2021 Coding Level of Care Code 81262 Initial Inpt Care Lvl 3
[2021-04-14 06:13] LABS: Basophils # (auto) 0.02 K/uL (0-0.2); Basophils % (auto) 0.3 %; Eosinophils # (auto) 0.15 K/uL (0-0.5); Eosinophils % (auto) 2.6 %; Hematocrit (blood only) 34.7 % (37-47); Hemoglobin 11.4 g/dL (12.0-16.0); Immature Granulocytes # (auto) 0.01 K/uL (0.00-0.02); Immature Granulocytes % (auto) 0.2 %; Lymphocytes % (auto) 45.1 %; Mean Corpuscular Hemoglobin 32.5 pg (25-34); Mean Corpuscular Hgb Conc 32.9 g/dL (32-36); Mean Corpuscular Volume 98.9 fL (80-100); Mean Platelet Volume 9.4 fL (7.4-10.4); Monocytes # (auto) 0.68 K/uL (0.11-0.59); Monocytes % (auto) 11.8 %; Platelet Count 326 K/uL (130-400); RDW Coefficient of Variation 13.6 % (11.5-14.5); RDW Standard Deviation 48.9 fL (36.4-46.3); Red Blood Count 3.51 M/uL (4.2-5.4); White Blood Count 5.76 K/uL (4.8-10.8)
[2021-04-14 06:48] LABS: Albumin Globulin Ratio 1.3 (0.9-2); BUN Creatinine Ratio 6.7 (10-20); Bilirubin,Total 1.1 mg/dl (0.2-1); Calcium 7.9 mg/dl (8.5-10.1); Creatinine Clr Calc Pharmacy 122.5 ml/min; Est GFR (African American) 139.3 ml/min; Est GFR (Non-African American) 120.2 ml/min; Globulin 2.3 gm/dl (2.5-4.0); Potassium 3.3 mmol/L (3.5-5.1); Total Protein 5.3 gm/dl (6.4-8.2)
[2021-04-14] MEDS: PANCREAZE (LIPASE 10,500U) CAP PO SCH ×2 (08:26→12:26)
[2021-04-14] MEDS: FLUoxetine HCL 10 MG CAP PO SCH (08:27)
[2021-04-14] MEDS: MULTIVITAMIN TAB PO SCH (08:27)
[2021-04-14] MEDS: THIAMINE HCL 100 MG TAB PO SCH (08:28)
[2021-04-14] MEDS: PANTOprazole 40 MG TAB PO SCH (08:28)
[2021-04-14] MEDS: FOLIC ACID 1 MG TAB PO SCH (08:28)
[2021-04-14] MEDS: APIXABAN 5 MG TABLET PO SCH (08:28)
[2021-04-14] MEDS: clonazePAM 1 MG TAB PO PRN (08:32)
[2021-04-14] MEDS ORDERED: POTASSIUM CHLORIDE CRTAB 20 MEQ TABCR PO STA (08:41)
[2021-04-14] MEDS ORDERED: THIAMINE HCL 100 MG TAB PO SCH (09:00)
[2021-04-14] MEDS: LORazepam 1 MG TAB PO PRN (12:20)
--- NOTE | 2021-04-14 13:12 | Discharge Summary ---
Date of Service date of admission - April 13, 2021 date of discharge - April 14, 2021 Admission HPI Per Admitting Provider 40-year-old female past medical history significant for alcohol use disorder, anxiety, depression, portal vein thrombosis on chronic Xarelto, liver cirrhosis presented to the ER for several days of nausea, vomiting, and diarrhea. Does not recall any specific food that incited these symptoms. Has not had a change in her alcohol use; reports 2 to 3 glasses of wine a day, last drink today (only had one drink today per patient). No associated shortness of breath, chest pain, dizziness or headaches, fevers. Does endorse some chills and general malaise. No abdominal pain. In the ER patient had CTAP which showed findings suggestive of possible colitis, stable known hypodensity at the pancreatic body. Lab work without leukocytosis, no electrolyte abnormalities, AST 149, normal INR, normal lipase, EtOH level of 201. Patient received medications for nausea and IV fluids. Principal Diagnosis colitis Discharge Exam gen: NAD, tearful at times, no evidence of withdrawal mouth: MMM heart: RRR, s1 s2, no murmur lungs: CTA b/l abd: soft, NT, ND, BS+, no HSM ext: no edema, pulses 2+ b/l psych: a/o x 3 Discharge Data Allergies Allergy/AdvReac Type Severity Reaction Status Date / Time buspirone [From BuSpar] Allergy Severe Unconscious, Verified 04/12/21 20:05 seizures quetiapine [From Seroquel] Allergy Severe Unconscious, Verified 04/12/21 20:05 seizures citalopram [From Celexa] AdvReac Intermediate Vomiting Verified 04/12/21 20:05 fluoxetine AdvReac Intermediate Migraine Verified 04/17/21 10:58 morphine AdvReac Intermediate "MAKES ME Verified 04/12/21 20:05 SICK(VOMITING)" vilazodone [From Viibryd] AdvReac Vomiting Verified 04/12/21 20:05 Ordered Studies Abdomen/Pelvis CT 04/12/21 20:16 CT abd pelvis oral and IV con CLINICAL HISTORY: Abdominal pain. History of chronic pancreatitis. COMPARISON STUDY: CT scan dated 11/12/2019, MRI dated 03/08/2021 TECHNIQUE: The patient was scanned following administration of dilute oral contrast. The patient had difficulty tolerating oral contrast and vomited some of the orally administered contrast. The patient was then scanned in a dynamic helical fashion during intravenous administration of 93 cc of Optiray 320. A dose lowering technique was utilized adhering to the principles of ALARA. CT DOSE: 264.10 mGy.cm FINDINGS: Lower chest: The heart is normal in size and configuration, without pericardial effusion. The lung bases and pleural spaces are clear. Liver: The contrast-enhanced liver is normal in size, contour, and attenuation. There is no intrahepatic biliary ductal dilatation. The hepatic veins and portal veins are patent. Gallbladder: Surgically absent Spleen: Normal in size and attenuation. Pancreas: There is an indeterminate 12 mm lesion within the pancreas at the head neck junction. This appears smaller than a corresponding cystic lesion as visualized on a CT scan performed May 2019. There are pancreatic head calcifications Adrenal glands: Unremarkable. Kidneys: There is symmetric renal cortical enhancement. The kidneys are normal in size without hydronephrosis. Bowel: There are no transition zones indicate bowel obstruction. The appendix appears normal. There is no acute diverticulitis. There is borderline pancreatic colonic wall thickening. This could be secondary to incomplete distention or a subtle colitis. Peritoneum: There is no intraperitoneal free air or abdominal ascites. Vasculature: The abdominal aorta is normal in course and caliber. Adenopathy: None. Pelvic viscera: There is an indwelling IUD. There is a 2 cm right ovarian follicle. Skeletal structures: No destructive osseous lesions are seen. IMPRESSION: 1. No evidence of bowel obstruction. No evidence of free air 2. Pancreatic head calcifications, likely secondary to chronic pancreatitis 3. Indeterminate 12 mm hypodense lesion within the pancreas head neck junction. It should be noted that on a prior CT scan performed May 2019, there is a corresponding 14 mm cystic lesion at the same location. This would tend to favor a post inflammatory lesion. Close follow-up is however warranted. 4. Normal appendix 5. Mild colonic wall thickening, a finding which could represent underdistention, or a infectious/inflammatory colitis ACT 112: Negative or not required by law. Electronically signed by: Willis Virgen M.D. 04/13/2021 8:08 AM Hospital Course (1) Colitis: (2) Anxiety and depression: (3) Smoker: (4) Pancreatic pseudocyst: (5) Abnormal LFTs: (6) Cirrhosis of liver: (7) Portal vein thrombosis: (8) Insomnia: (9) Hypokalemia: (10) Chronic pancreatitis: The patient's brief hospital stay was marked by fairly rapid improvement in all GI symptoms including her nausea, emesis, and diarrhea. CT abd/pelvis showed evidence of mild colitis, chronic pancreatitis, and what appears to be a small pancreatic cyst (12mm). The latter is likely chronic as it was present in 2019 on prior imaging. Stool culture was negative. Giardia testing was negative. She was able to tolerate a diet prior to discharge. She was given a prescription for c diff testing if her diarrhea persists. However, given the self-limited nature of her diarrhea, it is quite possible that the etiology was viral. She will remain on eliquis for prior history of PVT, creon for chronic pancreatitis, and potassium supplementation (K level was 3.3 while here). She was given a list of resources in the community available for individuals that are struggling with alcohol dependence. She was also given a list of possible counselors in the community. Finally, liver function tests were mildly elevated likely due to acute alcoholic hepatitis. The LFTs improved prior to discharge. She has close follow-up with her PCP shortly after discharge. Total Time Total Time Spent Total Time Spent (In Minutes): 35 Discharge Plan Discharge Items Patient Disposition: Home - Self-Care Reason For Visit: NAUSEA, VOMITING, DIARRHEA Discharge Diagnosis: 1. nausea, vomiting, and diarrhea due to colitis. Cause of colitis likely an infection. Most cases of colitis are caused by viruses but bacteria can also cause it. No bacteria thus far found. 2. chronic pancreatitis 3. cirrhosis of the liver Activity: Resume your previous activity Non-emergency contact: Primary Care Provider Call non-emergency contact if: you have any medication questions, your symptoms worsen and you have a fever Follow-up/Referrals: [facility] [Provider Group] (please stop by their office to establish care for medication management and counseling Patient needs to make a hospital follow up herself.) Diane Sorenson MD [Primary Care Provider] - 04/17/21 (see Dr Sorenson on Friday, 04/17 as scheduled Patient states she has a virtual appt with Dr. Sorenson on 04/17/21) Diet: Low Fiber Ambulatory Orders: Cdiff Toxin B Gene (2yr or >) (Routine) Timeframe: 2 Days Location: Determined by Patient Ordered By: Camilo Johnston Attending Provider Instructions: Ms Pete, You were admitted to the hospital for a GI illness. You were dehydrated and on CT scan of the abdomen you had evidence of colitis. Colitis is a medical term for an ill/sick/inflamed colon. Most cases of colitis are caused by infections - either due to viruses or bacteria. Your stool culture for bacteria is thus far negative. If your diarrhea comes back please collect a stool sample and drop it off to the lab at the hospital. We will check you for an infection called c.diff. Continue your usual medications including your potassium supplement. For counseling some options include - * [facility] in [place]; they can prescribe medications for your depression/anxiety/sleep and provide counseling * [facility]; [facility] - [phone] * [facility]; [facility] - [phone] I strongly encourage you to seek out one of the options for alcohol assistance as provided by our social services manager. Focus on good hydration today and tomorrow as you continue to recover. Consider taking a probiotic supplement ([id number]) for a week or two as your bowels completely recover. Return to [facility] if - * you have fevers over 100 degrees * you have severe abdominal pain * you have vomiting and can't keep anything down * you have bloody stools * any other concerns Feel better! Dr Guajardo Pending Studies at Discharge: Yes Studies:: Stool culture for bacteria but thus far negative Stand-Alone Forms: My [facility], Smoking Cessation Medications and DC Order Prescriptions: New potassium chloride [Klor-Con M20] 20 mEq tablet,ER particles/crystals 20 meq PO DAILY Qty: 1 RF: 0 Continued Creon 36,000-114,000- 180,000 unit capsule,delayed release(DR/EC) 3 cap PO TID 90 Days Qty: 810 RF: 1 sumatriptan succinate [Imitrex] 100 mg tablet 100 mg PO UD PRN (Reason: Migraine Headache) Qty: 16 RF: 4 pantoprazole 40 mg tablet,delayed release (DR/EC) 40 mg PO BID Qty: 180 RF: 1 clonazepam 2 mg tablet 2 mg PO BID PRN (Reason: anxiety) Qty: 60 RF: 0 promethazine 25 mg tablet 25 mg PO DAILY PRN (Reason: Nausea) Qty: 30 RF: 5 benzoyl peroxide 5 % cleanser 1 appln TOP DAILY PRN (Reason: Skin Cleansing) RF: 0 magnesium 200 mg tablet 200 mg PO DAILY RF: 0 multivitamin Tablet 1 tab PO DAILY RF: 0 B12 Active 1,000 mcg Tablet,Chewable 1,000 mcg PO PM RF: 0 cannabidiol 100 mg/mL Solution 1 mg PO DAILY PRN (Reason: Pain) RF: 0 Eliquis 5 mg tablet 5 mg PO Q12 RF: 0 ondansetron 4 mg tablet,disintegrating 4 mg PO Q6H PRN (Reason: Nausea) RF: 0 Discontinued hydrocodone-acetaminophen 2.5-325 mg tablet 1 tab PO Q6H PRN (Reason: pain) Qty: 20 RF: 0 fluoxetine 10 mg capsule 10 mg PO DAILY Qty: 90 RF: 3 No Action folic acid 1 mg tablet 1 mg PO DAILY Qty: 90 RF: 1 thiamine HCl (vitamin B1) 100 mg tablet 200 mg PO DAILY RF: 0 hydroxyzine HCl 50 mg tablet 50 mg PO Q6H PRN (Reason: anxiety) Qty: 60 RF: 3 Discharge Orders: Discharge Order (Routine); Ordered 04/14/21 Ordered By: Camilo Herrera/Other Patient Handouts: Low-Fiber Diet, Understanding Colitis Admission Data Admit Date/Time: 04/13/21 02:24 Attending Provider: Camilo Guajardo Admit Provider: Christianne Harrison Primary Care Provider: Diane Sorenson Other Providers: Brenda Kingston ; Christianne Harrison Other Interventions: Discharge Summary Assessment (RN) Last Done: 04/14/21 13:21 Coding Level of Care Code D/C DAY MANAGEMENT >30 MINS Diagnoses Colitis K52.9 Anxiety and depression F41.9; F32.9 Smoker F17.200 Pancreatic pseudocyst K86.3 Abnormal LFTs R94.5 Cirrhosis of liver K74.60 Portal vein thrombosis I81 Insomnia G47.00 Hypokalemia E87.6 Chronic pancreatitis K86.1
== END 2021-04-14 13:57 | disposition home or self-care (01) | DRG 392 ==
LOC: ED 17:17 → 3E 04-13 02:24 → SUATTDRO 04-13 02:24 → 3E 04-13 05:15
DX: F41.9 Anxiety disorder, unspecified; Z88.8 Allergy status to other drugs, medicaments and biological substances; F10.130 Alcohol abuse with withdrawal, uncomplicated; Z79.899 Other long term (current) drug therapy; F17.210 Nicotine dependence, cigarettes, uncomplicated; K52.9 Noninfective gastroenteritis and colitis, unspecified; Z86.718 Personal history of other venous thrombosis and embolism; Z79.01 Long term (current) use of anticoagulants; Z88.5 Allergy status to narcotic agent; F32.9 Major depressive disorder, single episode, unspecified; K70.30 Alcoholic cirrhosis of liver without ascites; Y90.7 Blood alcohol level of 200-239 mg/100 ml; K86.0 Alcohol-induced chronic pancreatitis

== ENCOUNTER 2022-04-10 12:10 | Inpatient (IN) ==
[2022-04-10] MEDS ORDERED: ONDANSETRON INJ 2 MG/ML 2 ML VIAL IV STA (13:04)
--- NOTE | 2022-04-10 13:09 | Emergency Department Note ---
History of Present Illness General Chief complaint: Vomiting Stated complaint: Vomit, Nausea Time Seen by Provider: 04/10/22 12:57 Source: patient History of Present Illness Provider complaint: Vomiting Onset (ago): month(s) Location: abdomen Pain Consistency: + intermittent Quality: + other (Vomiting) Relieved By: + none Associated symptoms: + nausea/vomiting and + other (Weight loss); no chest pain, no cough, no fever/chills or no shortness of breath This is a 41-year-old female presents with 1 month of vomiting. She states that she has trouble keeping things down. She is hardly able to eat anything. She throws up anytime she tries to eat. She is lost 22 pounds over the past month. She believes this is likely due to benzodiazepine withdrawal. She has been on Klonopin for Hanni anxiety and her doctor has been weaning her off of it for over 2 months now. She called her doctor today and states that she told her to go to the emergency department. She denies any abdominal pain. She has had no fevers, cough or cold symptoms, chest pain, shortness of breath or urinary symptoms. She does state that she is extremely anxious since being tapered on the benzodiazepine. She has a lot of stressors in her life. She denies any drug or alcohol use. She does states she uses medical marijuana. She denies any suicidal or homicidal ideation. She states she is trying to get into see a psychiatrist. Home Medications Medication Instructions Recorded Confirmed Type multivitamin 1 tab PO DAILY 03/18/19 04/10/22 History mecobalamin (vitamin B12) 1,000 1,000 mcg PO PM 11/10/19 04/10/22 History mcg chewable tablet (B12 Active) magnesium 200 mg tablet 200 mg PO DAILY 03/15/20 04/10/22 History cannabidiol 100 mg/mL oral solution 1 mg PO HS PRN Pain 02/27/21 04/10/22 History apixaban 5 mg tablet (Eliquis) 5 mg PO Q12 04/12/21 04/10/22 History potassium chloride 20 mEq 20 meq PO DAILY #1 tab 04/14/21 04/10/22 Rx tablet,extended release(part/cryst) (Klor-Con M) thiamine HCl (vitamin B1) 100 mg 200 mg PO DAILY 04/17/21 03/28/22 History tablet [id number] 3 cap PO TID Abdominal Discomfort 06/05/21 04/10/22 Rx 36,000-114,000-180,000 unit 90 days #810 caps capsule,delay rel (Creon) melatonin 10 mg capsule 10 mg PO HS PRN Insomnia 09/04/21 04/10/22 History clindamycin phosphate 1 % topical See Rx Instructions .Route 10/02/21 04/10/22 Rx gel .COMPLEX #30 grams hydroxyzine HCl 50 mg tablet 50 mg PO Q6H PRN anxiety #60 tabs 12/18/21 04/10/22 Rx sumatriptan succinate 100 mg 100 mg PO .COMPLEX PRN Migraine 12/18/21 04/10/22 Rx tablet (Imitrex) Headache #16 tabs ondansetron 4 mg disintegrating 4 mg PO Q6H PRN Nausea #30 tabs 02/15/22 04/10/22 Rx tablet baclofen 20 mg tablet 20 mg PO TID PRN muscle spasm and 03/22/22 04/10/22 Rx headaches #90 tabs folic acid 1 mg tablet 1 mg PO DAILY #90 tabs 03/22/22 04/10/22 Rx pantoprazole 40 mg tablet,delayed 40 mg PO BID #180 tabs 03/22/22 04/10/22 Rx release clonazepam 0.5 mg tablet See Rx Instructions PO .COMPLEX 04/05/22 04/10/22 Rx anxiety #45 tabs escitalopram oxalate 10 mg tablet 10 mg PO DAILY #30 tabs 04/10/22 Rx pantoprazole 20 mg tablet,delayed 20 mg PO DAILY #20 tabs 04/10/22 Rx release (Protonix) promethazine 12.5 mg tablet 12.5 mg PO QID PRN allergy 04/10/22 Rx symptoms #10 tabs promethazine 25 mg tablet 25 - 50 mg PO Q6H PRN Nausea 04/10/22 04/10/22 History Allergies Allergy/AdvReac Type Severity Reaction Status Date / Time buspirone [From BuSpar] Allergy Severe Unconscious, Verified 04/10/22 16:46 seizures quetiapine [From Seroquel] Allergy Severe Unconscious, Verified 04/10/22 16:46 seizures citalopram [From Celexa] AdvReac Intermediate Vomiting Verified 04/10/22 16:46 fluoxetine AdvReac Intermediate Migraine Verified 04/10/22 16:46 morphine AdvReac Intermediate "MAKES ME Verified 04/10/22 16:46 SICK(VOMITING)" vilazodone [From Viibryd] AdvReac Vomiting Verified 04/10/22 16:46 Past Med/Surg History Medical History Acne Acute gallstone pancreatitis Acute on chronic pancreatitis Acute pancreatitis Alcohol abuse Anxiety and depression Back pain, chronic Chronic neck pain GERD (gastroesophageal reflux disease) Hiatal hernia Insomnia Kidney failure 2009 (RESOLVED/SAW A [employer]) Liver enzyme elevation Marijuana use Migraines Nausea Pancreatic pseudocyst Pancreatitis alcoholic Pancreatitis, alcoholic, acute Panic attacks Peptic ulcer disease 2 YEARS AGO DX PTSD (post-traumatic stress disorder) Sleeping difficulty Toe fracture, left Surgical History "LAST APRIL" History of breast biopsy History of cholecystectomy History of esophagogastroduodenoscopy (EGD) History of esophagogastroduodenoscopy (EGD) 07/02/19- Dr. Gala Willett History of lumpectomy of right breast BENIGN History of tooth extraction Family History Father Family history of diabetes mellitus Myocardial infarction Stroke Hypertension Grandfather (Maternal) Family history of diabetes mellitus Grandmother (Maternal) Family history of diabetes mellitus Hypertension Cancer Mother Hypothyroidism Grandfather (Paternal) Cancer Heart problem Grandmother (Paternal) Hypertension Denies family history of Ovarian cancer Prostate cancer Breast cancer Colorectal cancer Social History Smoking Status: Current every day smoker Tobacco Type: Cigarettes Cigarettes Per Day: 7; Second Hand Exposure: No; Hx Alcohol Use: No Hx Substance Use: Yes Last Used Substance: Days (ago) Last Used Substance Other:: MEDICAL MARIJAUNA PRESCRIBED Substance Use Type Other:: medicinal marijuana Preferred Language: Gibraltarian Communication Ability: Effective Visual Impairment: No Limitations Hearing Ability: Normal Game Attendant Required: No Beliefs That Will Affect Care: None marital status: Single Current Living Situation: Parent current occupational status: employed Feels Safe at Home: Yes Childhood Exposure to Second-Hand Smoke: No Dental Care, Regularly: Yes Physical Activity Frequency: Does not Exercise Seatbelt Use: always Sunscreen Use: Yes Do you think of yourself as: straight/heterosexual Assistive Devices: None Review of Systems See HPI for pertinent positives & negatives. and A total of 10 systems reviewed and were otherwise negative Physical Exam Vital Signs Vital Signs - 24 hr 04/10/22 12:11 04/10/22 13:11 04/10/22 16:25 Temperature 36.6 C Temperature Source Temporal Artery Scan Pulse Rate 136 H Respiratory Rate 18 Blood Pressure 148/89 H Blood Pressure [Left Arm] 125/86 Blood Pressure Mean 108 Blood Pressure Mean [Left Arm] 99 Pulse Oximetry 95 Oxygen Delivery Method Room Air Sepsis Recent Fever Within 48 Hours No Sepsis New/Unexplained Change in Mental Status No Sepsis Action Taken by Nursing No Action Required Constitutional: Vital signs reviewed. Eyes: Pupils are equal round reactive to light. Conjunctiva are noninjected. ENT: Pharynx is clear without erythema or exudate. Mucous membranes are dry. Neck supple without meningeal signs. Respiratory: Clear to auscultation bilaterally. Breath sounds are equal bilaterally. Cardiovascular: Tachycardic. Regular rate. GI: Soft, nondistended and nontender. Bowel sounds are present. Musculoskeletal: No peripheral edema. No lower extremity tenderness. Integumentary: No cyanosis. or jaundice. Neurological: The patient is awake and alert. No focal deficits. Psychiatric: Anxious. Course Administered Medications Discontinued Medications Sodium Chloride (Nss 1000ml) 1,000 mls @ 999 mls/hr IV .Q1H1M CIRO Stop: 04/10/22 14:15 Last Infusion: 04/10/22 14:32 Dose: 0 mls/hr Documented By: Admin: 04/10/22 13:22 Dose: 999 mls/hr Documented By: AP Promethazine HCl (Phenergan) 12.5 mg in 50.5 mls @ 202 mls/hr IV NOW STA Stop: 04/10/22 14:27 Last Infusion: 04/10/22 15:02 Dose: 0 mls/hr Documented By: Admin: 04/10/22 14:42 Dose: 202 mls/hr Documented By: LUZ MARIA Promethazine HCl (Phenergan) 12.5 mg in 50.5 mls @ 202 mls/hr IV NOW STA Stop: 04/10/22 16:41 Last Admin: 04/10/22 16:54 Dose: 202 mls/hr Documented By: LUZ MARIA Sodium Chloride (Nss 1000ml) 500 mls @ 999 mls/hr IV .Q31M ONE Stop: 04/10/22 16:57 Last Admin: 04/10/22 16:55 Dose: 999 mls/hr Documented By: LUZ MARIA Ioversol (Optiray 320 100ml) 93 ml IV ONCE ONE Stop: 04/10/22 15:11 Last Admin: 04/10/22 15:10 Dose: 93 ml Documented By: FAVIO Lorazepam (Lorazepam 2 Mg/1 Ml Vial) 0.5 mg IV NOW STA; Protocol Stop: 04/10/22 14:49 Last Admin: 04/10/22 15:00 Dose: 0.5 mg Documented By: LUZ MARIA Ondansetron HCl (Ondansetron Inj 2 Mg/Ml 2 Ml Vial) 4 mg IV NOW STA Stop: 04/10/22 13:05 Last Admin: 04/10/22 13: Dose: 4 mg Documented By: LUZ MARIA Medical Decision Making Differential Diagnosis Benzodiazepine withdrawal, dehydration, metabolic derangement, gastritis, TEVIN Medical Records Attestation: I reviewed the patient's medical records. I did perform a limited focused review of portions of the patient's old chart on the electronic medical record. The patient was seen by her doctor on March 28 for similar symptoms. She has been complaining of withdrawing from her Klonopin. She complained of tachycardia into the 140s and significant increase in her anxiety and stressors at home.. She also saw her doctor on February 27. She is being tapered very slowly over months from her clonazepam and she was recommended to see a psychiatrist. Home Medications Current Medication List: was personally reviewed by me Laboratory Data Attestation: I reviewed the patient's lab results. Result diagrams: 04/10/22 12:38 04/10/22 12:38 Lab Results 04/10/22 04/10/22 04/10/22 Range/Units 12:38 12:38 12:38 WBC 8.58 (4.8-10.8) K/ul RBC 4.65 (3.93-5.22) M/uL Hgb 15.1 (12.0-16.0) g/dl Hct 43.4 (34.1-44.9) % MCV 93.3 (80.0-100.0) fL MCH 32.5 (25.0-34.0) pg MCHC 34.8 (32.0-36.0) g/dL RDW Std Deviation 52.6 H (36.4-46.3) fL RDW Coeff of Jessica 15.3 H (11.5-14.5) % Plt Count 247 (130-400) K/uL MPV 10.7 (9.4-12.3) fL Immature Gran % (Auto) 0.2 % Neut % (Auto) 71.6 % Lymph % (Auto) 16.7 % Crosby % (Auto) 10.6 % Eos % (Auto) 0.2 % Baso % (Auto) 0.7 % Neut # (Auto) 6.14 (1.4-6.5) K/uL Lymph # (Auto) 1.43 (1.2-3.4) K/uL Crosby # (Auto) 0.91 H (0.24-0.82) K/uL Eos # (Auto) 0.02 (0-0.50) K/uL Baso # (Auto) 0.06 (0-0.2) K/uL Immature Gran # (Auto) 0.02 (0.00-0.02) K/uL Sodium 137 (136-145) mmol/L Potassium 3.7 (3.5-5.1) mmol/L Chloride 100 (98-107) mmol/L Carbon Dioxide 23 (21-32) mmol/L Anion Gap 14 H (3-11) BUN 8 (6-23) mg/dl Creatinine 0.76 (0.6-1.2) mg/dl Est Cr Clr Drug Dosing 79.8 ml/min Est GFR ( Amer) 112.1 ml/min Est GFR (Non-Af Amer) 96.8 ml/min BUN/Creatinine Ratio 10.5 (10-20) Glucose 152 H (70-99(Fasting)) mg/dl Calcium 8.4 L (8.5-10.1) mg/dl Magnesium 1.8 (1.7-2.4) mg/dl Total Bilirubin 0.8 (0.2-1.0) mg/dl AST 208 H (13-39) U/L ALT 97 H (7-52) U/L Alkaline Phosphatase 286 H (34-104) U/L Total Protein 6.3 (6.0-8.3) gm/dl Albumin 3.6 (3.4-5.0) gm/dl Globulin 2.7 (2.5-4.0) gm/dl Albumin/Globulin Ratio 1.3 (0.9-2) Lipase 102 H (11-82) U/L TSH 4.321 (0.300-4.500) uIu/ml HCG, Qual (Negative) Urine Color Urine Appearance (Clear) Urine pH (4.5-7.5) Ur Specific [employer] (1.000-1.030) Urine Protein (Negative) Urine Glucose (UA) (Negative) Urine Ketones (Negative) Urine Blood (Negative) Urine Nitrite (Negative) Urine Bilirubin (Negative) Urine Urobilinogen (Negative) Ur Leukocyte Esterase (Negative) Urine WBC (Auto) (0-5) /hpf Urine RBC (Auto) (0-4) /hpf U Hyaline Cast (Auto) (0-5) /lpf U Epithel Cells (Auto) (0-5) /lpf Urine Bacteria (Auto) (Negative) 04/10/22 04/10/22 04/10/22 Range/Units 12:38 12:38 15:11 WBC (4.8-10.8) K/ul RBC (3.93-5.22) M/uL Hgb (12.0-16.0) g/dl Hct (34.1-44.9) % MCV (80.0-100.0) fL MCH (25.0-34.0) pg MCHC (32.0-36.0) g/dL RDW Std Deviation (36.4-46.3) fL RDW Coeff of Jessica (11.5-14.5) % Plt Count (130-400) K/uL MPV (9.4-12.3) fL Immature Gran % (Auto) % Neut % (Auto) % Lymph % (Auto) % Crosby % (Auto) % Eos % (Auto) % Baso % (Auto) % Neut # (Auto) (1.4-6.5) K/uL Lymph # (Auto) (1.2-3.4) K/uL [place]by # (Auto) (0.24-0.82) K/uL Eos # (Auto) (0-0.50) K/uL Baso # (Auto) (0-0.2) K/uL Immature Gran # (Auto) (0.00-0.02) K/uL Sodium (136-145) mmol/L Potassium (3.5-5.1) mmol/L Chloride (98-107) mmol/L Carbon Dioxide (21-32) mmol/L Anion Gap (3-11) BUN (6-23) mg/dl Creatinine (0.6-1.2) mg/dl Est Cr Clr Drug Dosing ml/min Est GFR ( Amer) ml/min Est GFR (Non-Af Amer) ml/min BUN/Creatinine Ratio (10-20) Glucose (70-99(Fasting)) mg/dl Calcium (8.5-10.1) mg/dl Magnesium (1.7-2.4) mg/dl Total Bilirubin (0.2-1.0) mg/dl AST (13-39) U/L ALT (7-52) U/L Alkaline Phosphatase (34-104) U/L Total Protein (6.0-8.3) gm/dl Albumin (3.4-5.0) gm/dl Globulin (2.5-4.0) gm/dl Albumin/Globulin Ratio (0.9-2) Lipase (11-82) U/L TSH (0.300-4.500) uIu/ml HCG, Qual Negative (Negative) Urine Color Dark Yellow Dark Yellow Urine Appearance Cloudy A Clear (Clear) Urine pH 7.0 7.5 (4.5-7.5) Ur Specific [employer] 1.026 1.022 (1.000-1.030) Urine Protein 1+ H Trace H (Negative) Urine Glucose (UA) Negative Negative (Negative) Urine Ketones 1+ H Trace H (Negative) Urine Blood Trace H Negative (Negative) Urine Nitrite Negative Negative (Negative) Urine Bilirubin Negative Negative (Negative) Urine Urobilinogen Negative Negative (Negative) Ur Leukocyte Esterase Trace H Trace H (Negative) Urine WBC (Auto) 10-30 H 5-10 H (0-5) /hpf Urine RBC (Auto) 5-10 H 0-4 (0-4) /hpf U Hyaline Cast (Auto) 10-30 H 5-10 H (0-5) /lpf U Epithel Cells (Auto) >30 H >30 H (0-5) /lpf Urine Bacteria (Auto) 4+ H 1+ H (Negative) Imaging Data Radiologist's Impression: Abdomen/Pelvis CT 04/10/22 14:13 CT SCAN OF THE ABDOMEN AND PELVIS WITH IV CONTRAST CLINICAL HISTORY: Nausea and vomiting. Clinical concern for acute pancreatitis. COMPARISON STUDY: Abdominal CT dated 04/12/2021. TECHNIQUE: Following the IV administration of 93 cc of Optiray 320, CT scan of the abdomen and pelvis is performed from the lung bases to the proximal femora. Images are reviewed in the axial, sagittal, and coronal planes. IV contrast was administered without complication. A dose lowering technique was utilized adhering to the principles of ALARA. There is streak artifact from a naval piercing. CT DOSE: 442.07 mGycm FINDINGS: Lung bases: The heart is normal in size and without pericardial effusion. The lung bases are clear. Liver: The contrast-enhanced liver is enlarged, measuring 20 cm in length. The liver demonstrates diffusely diminished attenuation consistent with severe hepatic steatosis. There is no intrahepatic biliary ductal dilatation. The hepatic veins and portal veins are patent. Gallbladder: Surgically absent noting clips in the gallbladder fossa. Spleen: Normal in size and attenuation. Pancreas: The pancreas is atrophic for age. Calcifications in the region of the pancreatic head are unchanged and suggest chronic pancreatitis. There is no peripancreatic fluid or inflammation. The duct is normal in caliber. The low- attenuation lesion in the pancreatic neck seen on 04/10/2021 is no longer identified and there is more focal glandular atrophy at this site. A 1.4 cm low- attenuation focus adjacent to uncinate process on image #166 has also decreased in size from previous. This is also likely inflammatory. Adrenal glands: Unremarkable. Kidneys: The contrast enhanced kidneys are normal in size and without hydronephrosis. The kidneys enhance symmetrically. There are punctate nonobstructing renal calculi seen bilaterally. Abdominal vasculature: The abdominal aorta is normal in course and caliber noting mild to moderate atherosclerotic calcification. Bowel: The gastric mucosa appears thickened and hyperemic suggesting gastritis. There is no bowel obstruction. Submucosal fat deposition throughout the colon is nonspecific but has been described in the setting of chronic inflammation. The appendix is well-visualized and normal. Peritoneum: There is no intraperitoneal free air or abdominal ascites. Lymphadenopathy: None. Pelvic viscera: The bladder is decompressed and not well assessed. The uterus is normal as visualized noting an intrauterine device in place. There are small ovarian follicles. Skeletal structures: No lytic or blastic lesions are seen. IMPRESSION: 1. The pancreas is atrophic with chronic parenchymal changes as above and evidence of chronic pancreatitis. There is no CT evidence of acute pancreatitis on today's examination. 2. Hepatomegaly and severe hepatic steatosis. 3. Findings suggest gastritis. Clinical correlation will be required. 4. Bilateral nephrolithiasis. 5. Additional findings as above.. ACT 112: Negative or not required by law. Electronically signed by: Austin Hines M.D. 04/10/2022 3:30 PM ECG Data Attestation: I personally reviewed and interpreted this ECG as follows: Indication: + tachycardia Rate (beats per minute): 117 Rhythm: + sinus tachycardia ECG [place]: + Normal ECG ST segments: no ST elevation ECG Findings: no PVCs Comparison ECG Date: from (August 06, 2021) Change: no significant change MDM Narrative I did evaluate the patient as noted above. She is presenting with severe anxiety with vomiting and intermittent diarrhea. She has no abdominal pain. She has been complaining of weight loss over the past month. She has been sick for a month and she has been placed on a tapering dose of clonazepam over the past 2 months. IV access was established. I did treat her with a liter normal saline IV and Zofran IV. She was given phenergan as well because she was still nauseated. I did place an order for continuous cardiac monitoring. The monitor showed sinus tachycardia at a rate of 116 bpm. I did order and personally review the patient's 12-lead EKG as described above. She has sinus tachycardia without acute ischemia. I did order a urine analysis. Urine analysis looks contaminated. She has been having intermittent diarrhea. A repeat urinalysis was obtained and this showed similar signs of contamination with greater than 30 epithelial cells but less signs of infection. She denies having any urinary symptoms and so I did not feel antibiotics were indicated, especially since they would likely worsen her vomiting and diarrhea. She I did order and review the patient's blood work as noted in the electronic medical record. CBC shows no leukocytosis or anemia. Platelets are 247. CMP demonstrates elevation of her AST and ALT at 208 and 97. Her alk phos is 286. TSH is within normal limits. Serum test is negative. Lipase is elevated at 102. She is followed by [facility] gastroenterology for history of chronic pancreatitis. She has not had exacerbation since she stopped drinking alcohol. I did order a CT of the abdomen and pelvis. She would not go to the CAT scan without anxiety medicine and so she could have an Ativan 0.5 mg IV. I did review the images myself as well as the radiology report as described above. She appears to have gastritis on CT. She does have hepatomegaly and hepatic steatosis. There are no findings of acute pancreatitis. The pancreas is atrophic and consistent with chronic pancreatitis. I did reassess the patient. She states that she is too sick to go home. She is extremely nauseated. She did request some Coca-Cola. I did explain to her that there is currently no indication for hospitalization but the patient stated that she could not go home. She then vomited several times in the ED. She stated there was some blood in the vomitus but she had flushed it down the toilet. She is still tachycardic. Her blood pressure is normal. She was given Phenergan 12.5 mg IV. I did continue her on normal saline and discussed case with the hospitalist and case management social worker. Impression & Plan Chronic pancreatitis, Abnormal LFTs, Gastritis, Anxiety, Diarrhea, Intractable vomiting Discharge Plan Visit Data Chief Complaint: Vomiting Stated Complaint: Vomit, Nausea ED Provider: Damian Sharma Discharge Problem: Chronic pancreatitis, Abnormal LFTs, Gastritis, Anxiety, Diarrhea, Intractable vomiting Patient Disposition: Being Evaluated by Hospitalist Condition: Good Discharge Instructions Javier/Other Patient Handouts: ED [facility] Vomiting Activity Restrictions/Additional Instructions: You have been examined and treated today on an emergency basis only. This is not a substitute for, or an effort to provide, complete comprehensive medical care. It is impossible to recognize and treat all injuries or illnesses in a single emergency department visit. It is therefore important that you follow up closely with your physician tomorrow. Call as soon as possible for an appointment. Discuss any test results from today with your doctor which may include incidental findings not brought up by the physician today. Return for worsening symptoms or if you develop fever, abdominal pain or any other concerning symptoms. Forms Stand Alone Forms: [facility], Virtual Emergency Department, Important Visit Information Prescriptions Prescriptions: New promethazine 12.5 mg tablet 12.5 mg PO QID PRN (Reason: allergy symptoms) Qty: 10 0RF Rx Instructions: 3 doses during day; last dose no later than 4 hr before bedtime pantoprazole [Protonix] 20 mg tablet,delayed release (DR/EC) 20 mg PO DAILY Qty: 20 0RF No Action Creon 36,000-114,000- 180,000 unit capsule,delayed release(DR/EC) 3 cap PO TID 90 Days Qty: 810 3RF clindamycin phosphate 1 % gel See Rx Instructions .ROUTE .COMPLEX Qty: 30 0RF Dose Instruction: APPLY TOPICALLY DAILY FOR ACNE Rx Instructions: APPLY TOPICALLY DAILY FOR ACNE hydroxyzine HCl 50 mg tablet 50 mg PO Q6H PRN (Reason: anxiety) Qty: 60 3RF sumatriptan succinate [Imitrex] 100 mg tablet 100 mg PO .COMPLEX PRN (Reason: Migraine Headache) Qty: 16 4RF Rx Instructions: TAKE 1 TAB BY MOUTH NEEDED xMIGRAINE HEADACHE, may repeat 100mg x1 2 hrs after 1st dose. Max 200mg/24hr ondansetron 4 mg tablet,disintegrating 4 mg PO Q6H PRN (Reason: Nausea) Qty: 30 0RF folic acid 1 mg tablet 1 mg PO DAILY Qty: 90 1RF baclofen 20 mg tablet 20 mg PO TID PRN (Reason: muscle spasm and headaches) Qty: 90 0RF pantoprazole 40 mg tablet,delayed release (DR/EC) 40 mg PO BID Qty: 180 1RF clonazepam 0.5 mg tablet See Rx Instructions PO .COMPLEX Qty: 45 0RF Rx Instructions: PO; 0.25mg in am and 0.5mg in pm PO; escitalopram oxalate 10 mg tablet 10 mg PO DAILY Qty: 30 5RF magnesium 200 mg tablet 200 mg PO DAILY thiamine HCl (vitamin B1) 100 mg tablet 200 mg PO DAILY melatonin 10 mg capsule 10 mg PO HS PRN (Reason: Insomnia) multivitamin Tablet 1 tab PO DAILY B12 Active 1,000 mcg Tablet,Chewable 1,000 mcg PO PM cannabidiol 100 mg/mL Solution 1 mg PO HS PRN (Reason: Pain) Label Comments: Patient has card Eliquis 5 mg tablet 5 mg PO Q12 potassium chloride [Klor-Con M20] 20 mEq tablet,ER particles/crystals 20 meq PO DAILY Qty: 1 0RF promethazine 25 mg tablet 25 - 50 mg PO Q6H PRN (Reason: Nausea) Referrals Referrals: Diane Sorenson MD [Primary Care Provider] -
[2022-04-10] MEDS ORDERED: SODIUM CHLORIDE 0.9% 1000ML 1,000 ML IV SCH (13:15)
[2022-04-10 13:19] LABS: Basophils # (auto) 0.06 K/uL (0-0.2); Basophils % (auto) 0.7 %; Eosinophils # (auto) 0.02 K/uL (0-0.50); Eosinophils % (auto) 0.2 %; Hematocrit (blood only) 43.4 % (34.1-44.9); Hemoglobin 15.1 g/dl (12.0-16.0); Immature Granulocytes # (auto) 0.02 K/uL (0.00-0.02); Immature Granulocytes % (auto) 0.2 %; Lymphocytes # (auto) 1.43 K/uL (1.2-3.4); Lymphocytes % (auto) 16.7 %; Mean Corpuscular Hemoglobin 32.5 pg (25.0-34.0); Mean Corpuscular Hgb Conc 34.8 g/dL (32.0-36.0); Mean Corpuscular Volume 93.3 fL (80.0-100.0); Mean Platelet Volume 10.7 fL (9.4-12.3); Monocytes # (auto) 0.91 K/uL (0.24-0.82); Monocytes % (auto) 10.6 %; Neutrophils # (auto) 6.14 K/uL (1.4-6.5); Neutrophils % (auto) 71.6 %; Platelet Count 247 K/uL (130-400); RDW Coefficient of Variation 15.3 % (11.5-14.5); RDW Standard Deviation 52.6 fL (36.4-46.3); Red Blood Count 4.65 M/uL (3.93-5.22); White Blood Count 8.58 K/ul (4.8-10.8)
[2022-04-10 13:26] LABS: Pregnancy Test, Serum Negative (Negative)
[2022-04-10 13:29] LABS: Albumin Level 3.6 gm/dl (3.4-5.0); Bilirubin,Total 0.8 mg/dl (0.2-1.0); Calcium 8.4 mg/dl (8.5-10.1); Magnesium 1.8 mg/dl (1.7-2.4); Potassium 3.7 mmol/L (3.5-5.1)
[2022-04-10 13:35] LABS: Albumin Globulin Ratio 1.3 (0.9-2); Appearance Urine Cloudy (Clear); BUN Creatinine Ratio 10.5 (10-20); Bacteria Urine Automated 4+ (Negative); Bilirubin Urine Negative (Negative); Blood Urine Trace (Negative); Color Urine Dark Yellow; Creatinine Clr Calc Pharmacy 79.8 ml/min; Epithelial Cell Urine Auto >30 /lpf (0-5); Est GFR (African American) 112.1 ml/min; Est GFR (Non-African American) 96.8 ml/min; Globulin 2.7 gm/dl (2.5-4.0); Glucose Urine UA Negative (Negative); Ketones Urine 1+ (Negative); Leukocyte Esterase Urine Trace (Negative); Nitrite Urine Negative (Negative); Protein Urine 1+ (Negative); Specific Gravity Urine 1.026 (1.000-1.030); Total Protein 6.3 gm/dl (6.0-8.3); Urobilinogen Urine Negative (Negative)
[2022-04-10] MEDS ORDERED: PROMETHAZINE 12.5 MG/50.5 ML BAG IV STA ×2 (14:13→16:27)
--- NOTE | 2022-04-10 14:45 | Electrocardiogram Report ---
Test Reason : Blood Pressure : / mmHG Vent. Rate : 117 BPM Atrial Rate : 117 BPM P-R Int : 134 ms QRS Dur : 072 ms QT Int : 304 ms P-R-T Axes : 054 067 031 degrees QTc Int : 424 ms Sinus tachycardia Possible Left atrial enlargement Borderline ECG When compared with ECG of 06-AUG-2021 12:17, No significant change was found Confirmed by Magen Mello ([id number]) on 04/10/2022 2:44:42 PM Referred By: REFERRED SELF Confirmed By:Salvador Mello
[2022-04-10] MEDS ORDERED: LORazepam 2 MG/1 ML VIAL IV STA (14:48)
[2022-04-10] MEDS ORDERED: OPTIRAY 320 100ml IV ONE (15:10)
--- NOTE | 2022-04-10 15:32 | CT Scan Report ---
CT SCAN OF THE ABDOMEN AND PELVIS WITH IV CONTRAST CLINICAL HISTORY: Nausea and vomiting. Clinical concern for acute pancreatitis. COMPARISON STUDY: Abdominal CT dated 04/12/2021. TECHNIQUE: Following the IV administration of 93 cc of Optiray 320, CT scan of the abdomen and pelvi s is performed from the lung bases to the proximal femora. Images are reviewed in the axial, sagittal , and coronal planes. IV contrast was administered without complication. A dose lowering technique wa s utilized adhering to the principles of ALARA. There is streak artifact from a naval piercing. CT DOSE: 442.07 mGycm FINDINGS: Lung bases: The heart is normal in size and without pericardial effusion. The lung bases are clear. Liver: The contrast-enhanced liver is enlarged, measuring 20 cm in length. The liver demonstrates dif fusely diminished attenuation consistent with severe hepatic steatosis. There is no intrahepatic bili trish ductal dilatation. The hepatic veins and portal veins are patent. Gallbladder: Surgically absent noting clips in the gallbladder fossa. Spleen: Normal in size and attenuation. Pancreas: The pancreas is atrophic for age. Calcifications in the region of the pancreatic head are u nchanged and suggest chronic pancreatitis. There is no peripancreatic fluid or inflammation. The duct is normal in caliber. The low-attenuation lesion in the pancreatic neck seen on 04/10/2021 is no long er identified and there is more focal glandular atrophy at this site. A 1.4 cm low-attenuation focus adjacent to uncinate process on image #166 has also decreased in size from previous. This is also lik maty inflammatory. Adrenal glands: Unremarkable. Kidneys: The contrast enhanced kidneys are normal in size and without hydronephrosis. The kidneys enh ance symmetrically. There are punctate nonobstructing renal calculi seen bilaterally. Abdominal vasculature: The abdominal aorta is normal in course and caliber noting mild to moderate at herosclerotic calcification. Bowel: The gastric mucosa appears thickened and hyperemic suggesting gastritis. There is no bowel obs truction. Submucosal fat deposition throughout the colon is nonspecific but has been described in the setting of chronic inflammation. The appendix is well-visualized and normal. Peritoneum: There is no intraperitoneal free air or abdominal ascites. Lymphadenopathy: None. Pelvic viscera: The bladder is decompressed and not well assessed. The uterus is normal as visualized noting an intrauterine device in place. There are small ovarian follicles. Skeletal structures: No lytic or blastic lesions are seen. IMPRESSION: 1. The pancreas is atrophic with chronic parenchymal changes as above and evidence of chronic pancrea titis. There is no CT evidence of acute pancreatitis on today's examination. 2. Hepatomegaly and severe hepatic steatosis. 3. Findings suggest gastritis. Clinical correlation will be required. 4. Bilateral nephrolithiasis. 5. Additional findings as above.. ACT 112: Negative or not required by law. Electronically signed by: Austin Hines M.D. 04/10/2022 3:30 PM
[2022-04-10 15:50] LABS: Appearance Urine Clear (Clear); Bacteria Urine Automated 1+ (Negative); Bilirubin Urine Negative (Negative); Blood Urine Negative (Negative); Color Urine Dark Yellow; Epithelial Cell Urine Auto >30 /lpf (0-5); Glucose Urine UA Negative (Negative); Ketones Urine Trace (Negative); Leukocyte Esterase Urine Trace (Negative); Nitrite Urine Negative (Negative); RBC Urine Automated 0-4 /hpf (0-4); Specific Gravity Urine 1.022 (1.000-1.030); Urobilinogen Urine Negative (Negative); pH Urine 7.5 (4.5-7.5)
[2022-04-10 16:03] LABS: Protein Urine Trace (Negative)
[2022-04-10] MEDS ORDERED: SODIUM CHLORIDE 0.9% 1000ML 500 ML IV ONE (16:27)
[2022-04-10] MEDS ORDERED: PANTOprazole 40 MG in SYRINGE 0 ML IV ONE (16:48)
--- NOTE | 2022-04-10 17:58 | History & Physical Report ---
Date of Service April 10, 2022 Assessment & Plan (1) Gastritis: Plan: Gastritis with nausea and vomiting that she has been unable to control at home - clear bland diet- no carbonated beverages - Protonix 40mg IV BID, Carafate 1GM now then TID- can increase if needed - Continue CREON - Exacerbated with ETOH use, poor diet choices, Says her marijuana has not changed and she does not get vomiting from this - Consider GI consultation or discuss with her [facility] gastro - Thiamin 300mg IV TID - Urine TOX screen pending (2) GERD (gastroesophageal reflux disease): Plan: As above (3) Anxiety: Plan: Continue with her Clonazepam and her Hydroxyzine - avoid further dosing as she is being weaned off - If remaining inpatient consider psych consultation - may benefit with casework supervisor to get her appointment scheduled (4) Chronic migraine: Plan: Continue sumitritan (5) Chronic pancreatitis: Plan: Continue Creon - lipase 102 likely related to her volume status - ringers lactate overnight (6) Cirrhosis of liver: Plan: Chronic- AST 208 ALT 97 - increased from previous with normal bilirubin - hydrate and control nausea as above, follow in morning History of Present Illness Chief Complaint: "I'm so sick" Primary Care Provider: Diane Sorenson MD 41 YOF with medcial history of: Acne, anxiety, benzodiazepine withdraw, back pain, gastroenteritis, chronic pancreatitis, pancreatic cyst. Patient comes to the EMD today for complaints of nausea with vomiting, abdominal pain that has been ongoing for the past 2 weeks. She was treated with multiple antinausea medications and CT scan of her abdomen and pelvis. Upon getting ready for discharge patient reportedly had some blood in her emisis. Her CT scan of her abdomen reveals gastritis. Overall the patient has had chronic nausea and vomitting secondary to her chronic pancreatitis- she follows with [facility], she has follow up with them in 6 months. She has not reached out to them since her onset of her symptoms. The patient endorses that she has only draink 1-2 sips of alcohol to help calm her nerves and stomach down over the past couple of days. Endorses that she had Vodka and Pedialyte. She endorses continuing to smoke, as well as medical marijuana. She states that she has been referred to psych at [place], but has been "playing phone tag" and has yet to get an appointment. She endorses 15 pound weight loss over the past 3 weeks. She last tried to eat Friday and has tried gingerale and coke as her fluids. Patient has multiple agents exacerbating her previous symptoms. Will observe overnight. Her lipase is 102 and is likely reflective of her hydration status. Change her Protonix to BID IV 40mg with dose now, initiate Carfate, will tier her antinausea medications, would greatly benefit from follow up of her GI and evaluation by psychiatry as she could benefit with better coping strategies. COVID test: Pending on admission Allergies Allergy/AdvReac Type Severity Reaction Status Date / Time buspirone [From BuSpar] Allergy Severe Unconscious, Verified 04/10/22 16:46 seizures quetiapine [From Seroquel] Allergy Severe Unconscious, Verified 04/10/22 16:46 seizures citalopram [From Celexa] AdvReac Intermediate Vomiting Verified 04/10/22 16:46 fluoxetine AdvReac Intermediate Migraine Verified 04/10/22 16:46 morphine AdvReac Intermediate "MAKES ME Verified 04/10/22 16:46 SICK(VOMITING)" vilazodone [From Viibryd] AdvReac Vomiting Verified 04/10/22 16:46 Home Medications Medication Instructions Recorded Confirmed Type multivitamin 1 tab PO DAILY 03/18/19 04/10/22 History mecobalamin (vitamin B12) 1,000 1,000 mcg PO PM 11/10/19 04/10/22 History mcg chewable tablet (B12 Active) magnesium 200 mg tablet 200 mg PO DAILY 03/15/20 04/10/22 History cannabidiol 100 mg/mL oral solution 1 mg PO HS PRN Pain 02/27/21 04/10/22 History apixaban 5 mg tablet (Eliquis) 5 mg PO Q12 04/12/21 04/10/22 History potassium chloride 20 mEq 20 meq PO DAILY #1 tab 04/14/21 04/10/22 Rx tablet,extended release(part/cryst) (Klor-Con M) thiamine HCl (vitamin B1) 100 mg 200 mg PO DAILY 04/17/21 03/28/22 History tablet [id number] 3 cap PO TID Abdominal Discomfort 06/05/21 04/10/22 Rx 36,000-114,000-180,000 unit 90 days #810 caps capsule,delay rel (Creon) melatonin 10 mg capsule 10 mg PO HS PRN Insomnia 09/04/21 04/10/22 History clindamycin phosphate 1 % topical See Rx Instructions .Route 10/02/21 04/10/22 Rx gel .COMPLEX #30 grams hydroxyzine HCl 50 mg tablet 50 mg PO Q6H PRN anxiety #60 tabs 12/18/21 04/10/22 Rx sumatriptan succinate 100 mg 100 mg PO .COMPLEX PRN Migraine 12/18/21 04/10/22 Rx tablet (Imitrex) Headache #16 tabs ondansetron 4 mg disintegrating 4 mg PO Q6H PRN Nausea #30 tabs 02/15/22 04/10/22 Rx tablet baclofen 20 mg tablet 20 mg PO TID PRN muscle spasm and 03/22/22 04/10/22 Rx headaches #90 tabs folic acid 1 mg tablet 1 mg PO DAILY #90 tabs 03/22/22 04/10/22 Rx pantoprazole 40 mg tablet,delayed 40 mg PO BID #180 tabs 03/22/22 04/10/22 Rx release clonazepam 0.5 mg tablet See Rx Instructions PO .COMPLEX 04/05/22 04/10/22 Rx anxiety #45 tabs escitalopram oxalate 10 mg tablet 10 mg PO DAILY #30 tabs 04/10/22 Rx pantoprazole 20 mg tablet,delayed 20 mg PO DAILY #20 tabs 04/10/22 Rx release (Protonix) promethazine 12.5 mg tablet 12.5 mg PO QID PRN allergy 04/10/22 Rx symptoms #10 tabs promethazine 25 mg tablet 25 - 50 mg PO Q6H PRN Nausea 04/10/22 04/10/22 History Past Med/Surg History Medical History Acne Acute gallstone pancreatitis Acute on chronic pancreatitis Acute pancreatitis Alcohol abuse Anxiety and depression Back pain, chronic Chronic neck pain GERD (gastroesophageal reflux disease) Hiatal hernia Insomnia Kidney failure 2009 (RESOLVED/SAW A [employer]LLING [employer]) Liver enzyme elevation Marijuana use Migraines Nausea Pancreatic pseudocyst Pancreatitis alcoholic Pancreatitis, alcoholic, acute Panic attacks Peptic ulcer disease 2 YEARS AGO DX PTSD (post-traumatic stress disorder) Sleeping difficulty Toe fracture, left Surgical History "LAST APRIL" History of breast biopsy History of cholecystectomy History of esophagogastroduodenoscopy (EGD) History of esophagogastroduodenoscopy (EGD) 07/02/19- Dr. Gala Willett History of lumpectomy of right breast BENIGN History of tooth extraction Family History Father Family history of diabetes mellitus Myocardial infarction Stroke Hypertension Grandfather (Maternal) Family history of diabetes mellitus Grandmother (Maternal) Family history of diabetes mellitus Hypertension Cancer Mother Hypothyroidism Grandfather (Paternal) Cancer Heart problem Grandmother (Paternal) Hypertension Denies family history of Ovarian cancer Prostate cancer Breast cancer Colorectal cancer Social History Smoking Status: Current every day smoker Tobacco Type: Cigarettes Cigarettes Per Day: 7; Second Hand Exposure: No; Hx Alcohol Use: No Hx Substance Use: Yes Last Used Substance: Days (ago) Last Used Substance Other:: MEDICAL MARIJAUNA PRESCRIBED Substance Use Type Other:: medicinal marijuana Preferred Language: Bahraini Communication Ability: Effective Visual Impairment: No Limitations Hearing Ability: Normal Yardage Estimator Required: No Beliefs That Will Affect Care: None marital status: Single Current Living Situation: Parent current occupational status: employed Feels Safe at Home: Yes Childhood Exposure to Second-Hand Smoke: No Dental Care, Regularly: Yes Physical Activity Frequency: Does not Exercise Seatbelt Use: always Sunscreen Use: Yes Do you think of yourself as: straight/heterosexual Assistive Devices: None Review of Systems Review of Systems: REVIEW OF SYSTEMS: Constitutional: No fever, sweats or chills Eyes: No diplopia, no worsening or blurred vision ENT: normal hearing, no trouble swallowing Respiratory: No cough, sputum, dyspnea at rest or on exertion Cardiovascular: No chest pain, tightness or palpitations Abdomen: (+) pain, nausea, vomiting, NO diarrhea or constipation Musculoskeletal: No joint pain, calf pain, swelling Neurologic: No weakness, numbness/tingling, or balance problems Psychiatric: (+) anxiety or depression Skin:(+) acne Physical Exam Physical Exam: PHYSICAL EXAM: General: awake, alert, Head: Normocephalic, atraumatic ENT: PERRL, EOMI, no pharyngeal exudate, mucous membranes dry, poor dentition Neuro: AAO x 3, speech clear and appropriate, strength intact bilaterally 5/5, sensation intact and equal all extremities and dermatomes, no pronator drift Chest: equal rise and fall of the chest, no accessory muscle use, no heaves or thrills, Clear to auscultation, on room air, Cardiac: Regular rate and rhythm, telemetry reviewed, skin warm dry, cap refill <3 seconds, peripheral pulses +2 no JVD, no murmur, no edema GI: NABS x 4 quadrants, soft, tender to palpation upper gastric, no rebound, guarding or tenderness : Spontaneously voiding, no pain, no CVA tenderness, Extremities: Normal inspection, no peripheral edema or erythema, calfs nontender to palpation Psych: visible agitation and fixated on antinausea medication Skin: no rash or erythema Results & Data Results & Data ([facility]) Vital Signs (Past 12 Hours) Vital Signs Temp Pulse Resp BP BP Pulse Ox O2 Del Method 04/10/22 16:25 125/86 04/10/22 13:11 Room Air 04/10/22 12:11 36.6 C 136 H 18 148/89 H 95 Laboratory Results Abnormal lab results 04/10/22 04/10/22 04/10/22 Range/Units 12:38 12:38 12:38 RDW Std Deviation 52.6 H (36.4-46.3) fL RDW Coeff of Jessica 15.3 H (11.5-14.5) % Ritchie # (Auto) 0.91 H (0.24-0.82) K/uL Anion Gap 14 H (3-11) Glucose 152 H (70-99(Fasting)) mg/dl Calcium 8.4 L (8.5-10.1) mg/dl AST 208 H (13-39) U/L ALT 97 H (7-52) U/L Alkaline Phosphatase 286 H (34-104) U/L Lipase 102 H (11-82) U/L Urine Appearance Cloudy A (Clear) Urine Protein 1+ H (Negative) Urine Ketones 1+ H (Negative) Urine Blood Trace H (Negative) Ur Leukocyte Esterase Trace H (Negative) Urine WBC (Auto) 10-30 H (0-5) /hpf Urine RBC (Auto) 5-10 H (0-4) /hpf U Hyaline Cast (Auto) 10-30 H (0-5) /lpf U Epithel Cells (Auto) >30 H (0-5) /lpf Urine Bacteria (Auto) 4+ H (Negative) 04/10/22 Range/Units 15:11 RDW Std Deviation (36.4-46.3) fL RDW Coeff of Jessica (11.5-14.5) % Ritchie # (Auto) (0.24-0.82) K/uL Anion Gap (3-11) Glucose (70-99(Fasting)) mg/dl Calcium (8.5-10.1) mg/dl AST (13-39) U/L ALT (7-52) U/L Alkaline Phosphatase (34-104) U/L Lipase (11-82) U/L Urine Appearance (Clear) Urine Protein Trace H (Negative) Urine Ketones Trace H (Negative) Urine Blood (Negative) Ur Leukocyte Esterase Trace H (Negative) Urine WBC (Auto) 5-10 H (0-5) /hpf Urine RBC (Auto) (0-4) /hpf U Hyaline Cast (Auto) 5-10 H (0-5) /lpf U Epithel Cells (Auto) >30 H (0-5) /lpf Urine Bacteria (Auto) 1+ H (Negative) Diagnostic Findings Abdomen/Pelvis CT 04/10/22 14:13 CT SCAN OF THE ABDOMEN AND PELVIS WITH IV CONTRAST CLINICAL HISTORY: Nausea and vomiting. Clinical concern for acute pancreatitis. COMPARISON STUDY: Abdominal CT dated 04/12/2021. TECHNIQUE: Following the IV administration of 93 cc of Optiray 320, CT scan of the abdomen and pelvis is performed from the lung bases to the proximal femora. Images are reviewed in the axial, sagittal, and coronal planes. IV contrast was administered without complication. A dose lowering technique was utilized adhering to the principles of ALARA. There is streak artifact from a naval piercing. CT DOSE: 442.07 mGycm FINDINGS: Lung bases: The heart is normal in size and without pericardial effusion. The lung bases are clear. Liver: The contrast-enhanced liver is enlarged, measuring 20 cm in length. The liver demonstrates diffusely diminished attenuation consistent with severe hep atic steatosis. There is no intrahepatic biliary ductal dilatation. The hepatic veins and portal veins are patent. Gallbladder: Surgically absent noting clips in the gallbladder fossa. Spleen: Normal in size and attenuation. Pancreas: The pancreas is atrophic for age. Calcifications in the region of the pancreatic head are unchanged and suggest chronic pancreatitis. There is no peripancreatic fluid or inflammation. The duct is normal in caliber. The low- attenuation lesion in the pancreatic neck seen on 04/10/2021 is no longer identified and there is more focal glandular atrophy at this site. A 1.4 cm low- attenuation focus adjacent to uncinate process on image #166 has also decreased in size from previous. This is also likely inflammatory. Adrenal glands: Unremarkable. Kidneys: The contrast enhanced kidneys are normal in size and without hydronephrosis. The kidneys enhance symmetrically. There are punctate nonobstructing renal calculi seen bilaterally. Abdominal vasculature: The abdominal aorta is normal in course and caliber noting mild to moderate atherosclerotic calcification. Bowel: The gastric mucosa appears thickened and hyperemic suggesting gastritis. There is no bowel obstruction. Submucosal fat deposition throughout the colon is nonspecific but has been described in the setting of chronic inflammation. The appendix is well-visualized and normal. Peritoneum: There is no intraperitoneal free air or abdominal ascites. Lymphadenopathy: None. Pelvic viscera: The bladder is decompressed and not well assessed. The uterus is normal as visualized noting an intrauterine device in place. There are small ovarian follicles. Skeletal structures: No lytic or blastic lesions are seen. IMPRESSION: 1. The pancreas is atrophic with chronic parenchymal changes as above and evidence of chronic pancreatitis. There is no CT evidence of acute pancreatitis on today's examination. 2. Hepatomegaly and severe hepatic steatosis. 3. Findings suggest gastritis. Clinical correlation will be required. 4. Bilateral nephrolithiasis. 5. Additional findings as above.. ACT 112: Negative or not required by law. Electronically signed by: Austin Hines M.D. 04/10/2022 3:30 PM Medications Administered Home Medications multivitamin 1 tab PO DAILY 03/18/19 [History Confirmed 04/10/22] mecobalamin (vitamin B12) 1,000 mcg chewable tablet (B12 Active) 1,000 mcg PO PM 11/10/19 [History Confirmed 04/10/22] magnesium 200 mg tablet 200 mg PO DAILY 03/15/20 [History Confirmed 04/10/22] cannabidiol 100 mg/mL oral solution 1 mg PO HS PRN Pain 02/27/21 [History Confirmed 04/10/22] apixaban 5 mg tablet (Eliquis) 5 mg PO Q12 04/12/21 [History Confirmed 04/10/22] potassium chloride 20 mEq tablet,extended release(part/cryst) (Klor-Con M) 20 meq PO DAILY #1 tab 04/14/21 [Rx Confirmed 04/10/22] thiamine HCl (vitamin B1) 100 mg tablet 200 mg PO DAILY 04/17/21 [History Confirmed 03/28/22] bussol-jnrdqsry-jvhhwek 36,000-114,000-180,000 unit capsule,delay rel (Creon) 3 cap PO TID Abdominal Discomfort 90 days #810 caps 06/05/21 [Rx Confirmed 04/10/22] melatonin 10 mg capsule 10 mg PO HS PRN Insomnia 09/04/21 [History Confirmed 04/10/22] clindamycin phosphate 1 % topical gel See Rx Instructions .Route .COMPLEX #30 grams 10/02/21 [Rx Confirmed 04/10/22] hydroxyzine HCl 50 mg tablet 50 mg PO Q6H PRN anxiety #60 tabs 12/18/21 [Rx Confirmed 04/10/22] sumatriptan succinate 100 mg tablet (Imitrex) 100 mg PO .COMPLEX PRN Migraine Headache #16 tabs 12/18/21 [Rx Confirmed 04/10/22] ondansetron 4 mg disintegrating tablet 4 mg PO Q6H PRN Nausea #30 tabs 02/15/22 [Rx Confirmed 04/10/22] baclofen 20 mg tablet 20 mg PO TID PRN muscle spasm and headaches #90 tabs 03/22/22 [Rx Confirmed 04/10/22] folic acid 1 mg tablet 1 mg PO DAILY #90 tabs 03/22/22 [Rx Confirmed 04/10/22] pantoprazole 40 mg tablet,delayed release 40 mg PO BID #180 tabs 03/22/22 [Rx Confirmed 04/10/22] clonazepam 0.5 mg tablet See Rx Instructions PO .COMPLEX anxiety #45 tabs 04/05/22 [Rx Confirmed 04/10/22] escitalopram oxalate 10 mg tablet 10 mg PO DAILY #30 tabs 04/10/22 [Rx] pantoprazole 20 mg tablet,delayed release (Protonix) 20 mg PO DAILY #20 tabs 04/10/22 [Rx] promethazine 12.5 mg tablet 12.5 mg PO QID PRN allergy symptoms #10 tabs 04/10/22 [Rx] promethazine 25 mg tablet 25 - 50 mg PO Q6H PRN Nausea 04/10/22 [History Confirmed 04/10/22] Discontinued Medications Sodium Chloride (Nss 1000ml) 1,000 mls @ 999 mls/hr IV .Q1H1M CIRO Stop: 04/10/22 14:15 Last Infusion: 04/10/22 14:32 Dose: 0 mls/hr Documented By: Admin: 04/10/22 13:22 Dose: 999 mls/hr Documented By: AP Promethazine HCl (Phenergan) 12.5 mg in 50.5 mls @ 202 mls/hr IV NOW STA Stop: 04/10/22 14:27 Last Infusion: 04/10/22 15:02 Dose: 0 mls/hr Documented By: Admin: 04/10/22 14:42 Dose: 202 mls/hr Documented By: AP Promethazine HCl (Phenergan) 12.5 mg in 50.5 mls @ 202 mls/hr IV NOW STA Stop: 04/10/22 16:41 Last Admin: 04/10/22 16:54 Dose: 202 mls/hr Documented By: AP Sodium Chloride (Nss 1000ml) 500 mls @ 999 mls/hr IV .Q31M ONE Stop: 04/10/22 16:57 Last Admin: 04/10/22 16:55 Dose: 999 mls/hr Documented By: LUZ MARIA Ioversol (Optiray 320 100ml) 93 ml IV ONCE ONE Stop: 04/10/22 15:11 Last Admin: 04/10/22 15:10 Dose: 93 ml Documented By: ALMAF Lorazepam (Lorazepam 2 Mg/1 Ml Vial) 0.5 mg IV NOW STA; Protocol Stop: 04/10/22 14:49 Last Admin: 04/10/22 15:00 Dose: 0.5 mg Documented By: LUZ MARIA Ondansetron HCl (Ondansetron Inj 2 Mg/Ml 2 Ml Vial) 4 mg IV NOW STA Stop: 04/10/22 13:05 Last Admin: 04/10/22 13:22 Dose: 4 mg Documented By: AP ECG Additional Comments: Sinus tachycardia Possible Left atrial enlargement Borderline ECG When compared with ECG of 06-AUG-2021 12:17, No significant change was found Code Status & VTE Plan Code Status CODE: DNR/DNI VTE: SCDS, ambulation VTE Prophylaxis Plan VTE Prophylaxis will be ordered: Yes Supervising Physician Co-Signing Physician Notes Discussed case with MATERIAL MAN and reviewed documentation, agree with his note above. Patient presented with intractable nausea, was admitted to be discharged but then had an episode hematemesis. Plan to treat with IV Protonix twice daily along with Carafate. Consult GI with consideration for EGD. Hemoglobin appropriate, continue to monitor. PG Care Time/CCT Total # of Minutes Spent Total Time Spent with Patient: Total time spent is greater than 50% in coordination of care (as documented) at patient's floor/unit and/or counseling patient: Coding Level of Care Code INT OBSERVATION CARE 50M LVL 2 Diagnoses Gastritis K29.70 GERD (gastroesophageal reflux disease) K21.9 Anxiety F41.9 Chronic migraine G43.709 Chronic pancreatitis K86.1 Cirrhosis of liver K74.60
[2022-04-10 20:05] LABS: Amphetamines+Metham, Urine Neg (Neg); Barbiturates, Urine Neg (Neg); Benzodiazepine, Urine Neg (Neg); Cocaine, Urine Neg (Neg); MDMA (Ecstacy), Urine Neg (Neg); Methadone, Urine Neg (Neg); Opiate, Urine Neg (Neg); Phencyclidine, Urine Neg (Neg)
[2022-04-10] MEDS ORDERED: SUMAtriptan succinate 100 MG TAB PO PRN (21:18)
[2022-04-10] MEDS ORDERED: SUCRALFATE 1 GM TAB PO STA (21:18)
[2022-04-10] MEDS ORDERED: hydrOXYzine HCl 25 MG TAB PO PRN (21:18)
[2022-04-10] MEDS: clonazePAM 0.5 MG TAB PO SCH (21:54)
[2022-04-10] MEDS: PANTOprazole 40 MG in SYRINGE 0 ML IV SCH (21:57)
[2022-04-10] MEDS: LACTATED RINGER'S 1,000 ML IV SCH (22:00)
[2022-04-10] MEDS: ONDANSETRON INJ 2 MG/ML 2 ML VIAL IV PRN (22:01)
[2022-04-10] MEDS: APIXABAN 5 MG TABLET PO SCH (22:04)
[2022-04-10] MEDS: PANCREAZE (LIPASE 10,500U) CAP PO SCH (22:04)
[2022-04-10] MEDS: MAGNESIUM SULFATE / D5W 1 GM/100 ML BAG IV SCH (22:13)
[2022-04-10] MEDS: THIAMINE HCL 300 MG in SODIUM CHLORIDE 0.9% 50 ML IV SCH (22:49)
[2022-04-10] MEDS: METOCLOPRAMIDE HCL INJ 5 MG/ML 2 ML VIAL IV PRN (22:49)
[2022-04-11] MEDS: MAGNESIUM SULFATE / D5W 1 GM/100 ML BAG IV SCH (00:11)
[2022-04-11] MEDS: PROMETHAZINE HCL 12.5 MG in SODIUM CHLORIDE 0.9% 50 ML IV PRN ×3 (02:46→20:30)
[2022-04-11] MEDS: ONDANSETRON INJ 2 MG/ML 2 ML VIAL IV PRN ×3 (05:00→22:14)
[2022-04-11] MEDS: THIAMINE HCL 300 MG in SODIUM CHLORIDE 0.9% 50 ML IV SCH ×3 (05:02→21:05)
[2022-04-11 05:29] LABS: Basophils # (auto) 0.05 K/uL (0-0.2); Basophils % (auto) 0.9 %; Eosinophils # (auto) 0.15 K/uL (0-0.50); Eosinophils % (auto) 2.6 %; Hematocrit (blood only) 36.2 % (34.1-44.9); Hemoglobin 12.3 g/dl (12.0-16.0); Immature Granulocytes # (auto) 0.01 K/uL (0.00-0.02); Immature Granulocytes % (auto) 0.2 %; Lymphocytes # (auto) 1.73 K/uL (1.2-3.4); Lymphocytes % (auto) 29.7 %; Mean Corpuscular Hemoglobin 32.3 pg (25.0-34.0); Mean Platelet Volume 10.4 fL (9.4-12.3); Monocytes # (auto) 0.59 K/uL (0.24-0.82); Monocytes % (auto) 10.1 %; Neutrophils % (auto) 56.5 %; Platelet Count 192 K/uL (130-400); RDW Coefficient of Variation 15.2 % (11.5-14.5); Red Blood Count 3.81 M/uL (3.93-5.22); White Blood Count 5.83 K/ul (4.8-10.8)
[2022-04-11] MEDS: LACTATED RINGER'S 1,000 ML IV SCH ×2 (06:03→14:19)
[2022-04-11 06:15] LABS: Albumin Level 2.9 gm/dl (3.4-5.0); BUN Creatinine Ratio 7.7 (10-20); Bilirubin Direct 0.3 mg/dl (0-0.2); Calcium 7.5 mg/dl (8.5-10.1); Creatinine Clr Calc Pharmacy 93.3 ml/min; Est GFR (African American) 126.9 ml/min; Est GFR (Non-African American) 109.5 ml/min; Magnesium 2.3 mg/dl (1.7-2.4); Phosphorus 2.8 mg/dl (2.5-4.9); Potassium 3.4 mmol/L (3.5-5.1); Total Protein 4.9 gm/dl (6.0-8.3)
[2022-04-11] MEDS: METOCLOPRAMIDE HCL INJ 5 MG/ML 2 ML VIAL IV PRN ×2 (07:28→18:49)
[2022-04-11] MEDS: BACLOFEN 20 MG TAB PO PRN ×3 (07:31→23:33)
--- NOTE | 2022-04-11 08:30 | Hospitalist Progress Note ---
Date of Service April 11, 2022 Assessment & Plan (1) Gastritis: Plan: Gastritis with nausea and vomiting that she has been unable to control at home Does have history of medical marijuana use for her anxiety -- consider cyclic vomiting (states MMJ use not changed and does not get vomiting from this, however would still consider) Try topical capsaicin to see if any increased benefit CTAP with evidence for chronic pancreatitis, no evidence for acute pancreatitis. +Gastritis. Hepatomegaly and severe hepatic steatosis. Bilateral nephrolithiasis. Continue Protonix 40mg IV BID, added Carafate TID Clear diet -- advance as tolerated LR @ 125cc/hr -- will complete after current bag for ~2.5L total volume as patient wanting to try advancing diet. +nausea but no further emesis 04/11 Antiemetics prn -- Zofran, Phenergan, Reglan prn Follows with [facility] -- discussed no acute inpatient plans for scope given stability and likely outpatient basis and patient ok w/ holding GI consult for now given will be [facility] and will f/u [facility] Regarding alcohol use -- continue IV thiamine daily. Added folate/B12 Continue Creon for chronic pancreatitis Educated to avoid ETOH use. Tox screen without alcohol but does endorse "sips" at home for nerves Also, patient denied "urinary symptoms" per say, but n/v and cx + x2 --> give Rocephin IV x 1 today, Keflex PO tomorrow and monitor response. Lot of patient's symptoms do also seem to be related to panic attacks/anxiety wh ile decreasing her outpatient benzodiazepines Tachycardic/abd discomfort/nausea/vomiting/sweaty palms and endorsed prior issues with anxiety/panic attacks. Issues with getting into psych outpatient Psych liason consulted and assisting to see about sooner outpatient follow up care Had been on cymbalta earlier this year, short term. Recent prozac use in February, discontinued due to no effect. Would help with benzo withdrawal if effective Currently on klonopin 0.25mg QAM, 0.5mg QPM (prior 2mg BID dosing in past). Given 0.25mg x 1 dose this morning and discussed Vistaril increase to avoid backpedaling work of PCP. Patient agreeable Increased Vistaril to 75mg and made scheduled three times daily Continued monitoring (2) Anxiety: Plan: Previously on larger amounts of Klonopin 2mg BID, recently titrating down with PCP and currently on 0.25mg QAM, 0.5mg QPM Additional 0.25mg x 1 given this morning but discussed not wanting to backpedal Previously trial/weaned off cymbalta per PCP notes. Patient also stated trial Prozac, discontinued in February On Vistaril prn --> discussed changing to 75mg TID scheduled and monitor Also uses [facility] for her anxiety symptoms -- added topical capsaicin ?effective for possible cyclic vomiting syndrome Psych liaison consulted to see about assisting patient with follow up care TSH wnl B12/folate wnl but continue supp given etoh use Melatonin HS Monitor (3) Portal vein thrombosis: Plan: Hx portal vein thrombosis, continues on eliquis 5mg BID ?further imaging if issues persist however NON-TENDER ON EXAM (4) Chronic pancreatitis: Plan: Continue Creon - lipase 102 likely related to her volume status, LR overnight, wanting to eat and d/c IVF this afternoon (5) Cirrhosis of liver: Plan: Chronic- AST 208 ALT 97, ALP 286 on admit Increased from prior levels -- hydration with IVF as above, likely from etoh use as well TB wnl -- hx cholecystectomy LFTs improved --> AST 151, ALT 68, ALP 224 Check hepatitis panel Encourage cessation from alcohol use Monitor (6) GERD (gastroesophageal reflux disease): Plan: As above, protonix BID and would continue with carafate at d/c F/u [facility] at d/c (7) Chronic migraine: Plan: Continue sumitritan (8) Hypokalemia: Plan: K 3.4 on AM labs, likely from GI losses from prior n/v 2K riders ordered given nausea/v reported to nursing however denied any vomiting to myself Mag wnl Monitor in AM Plan continued inpatient stay possible d/c in next 24-48 hours Admission and Anticipated Discharge Date Admission Date: April 10, 2022 Subjective patient evaluated this afternoon +nausea but no emesis. generalized abdominal discomfort, no pain. Discussed THC use -- has MMJ card. States never tried capcacisin in the past but discussed cyclic vomiting syndrome. Agreeable to try topical agent to see if effective. Lost friend this morning -- of friend called after not showing up to court and had been for 2 weeks. She states her anxiety has been increasingly worse and PCP titrating outpatient. Got 1x 0.25mg dose in addition to 0.25mg QAM dose and discussed wanting to avoid back peddling PCP w/ titration and discussed vistaril use (of note, states duloxetine was a while back, prozac this summer d/c abrupt in February after GI symptoms and no help with anxiety). She does discuss was on higher dose opiates for back pain in past and titrated off successfully as she didn't want to be on them any longer. Discussed increasing Vistaril and monitor anxiety, psych liaison also consulted. Having issues getting into f/u with [facility]. Nowhere w/ [facility]. She is very frustrated and feeling like needing psychiatry follow up. No SI/HI currently. Appreciative for time spent discussing with patient/providing reassurance. Avoiding GI consult currently and discussed continuing PPI BID and carafate and can have usual f/u [facility] for outpatient scope in follow up unless symptoms change. No fever/chills, chest pain (outside of tightness w/ panic attacks), no dysuria or burning however repeat UA still w/ bacteria and will treat given n/v and monitor response. Agreeable. Review of Systems Review of Systems: All systems reviewed & are unremarkable except as noted in HPI & below Physical Exam Physical Exam: General: WD/WN female, looks older than state, NAD but tearful about anxiety symptoms/panic attack HEENT: head normocephalic, atraumatic, eyes anicteric, mmm, trachea midline without deviation Resp: CTAB, no w/c/r on room air CV: tachycardic (rate 104bpm), regular, no m/r/g, no calf edema/tenderness, pulses palpable GI: +BS, soft, nontender : no murillo MSK/Neuro: moves all extremities, no focal deficit Psych: aox3, anxious appearing but cooperative Skin: warm, dry Results & Data Results & Data ([facility]) Vital Signs (Past 12 Hours) Vital Signs Temp Pulse Resp BP BP BP Pulse Ox 04/11/22 07:15 36.7 C 106 H 16 132/94 99 04/10/22 23:10 129/88 04/10/22 21:37 96 H 115/81 04/10/22 21:19 36.8 C 101 H 18 158/107 H 98 04/10/22 21:01 111/93 04/10/22 21:01 97 04/10/22 21:00 93 04/10/22 20:30 92 O2 Del Method 04/11/22 07:15 Room Air 04/10/22 23:10 04/10/22 21:37 04/10/22 21:19 Room Air 04/10/22 21:01 04/10/22 21:01 04/10/22 21:00 04/10/22 20:30 Laboratory Results 04/11/22 04/11/22 04/10/22 Range/Units 05:12 05:12 17:50 WBC 5.83 (4.8-10.8) K/ul RBC 3.81 L (3.93-5.22) M/uL Hgb 12.3 (12.0-16.0) g/dl Hct 36.2 (34.1-44.9) % MCV 95.0 (80.0-100.0) fL MCH 32.3 (25.0-34.0) pg MCHC 34.0 (32.0-36.0) g/dL RDW Std Deviation 53.0 H (36.4-46.3) fL RDW Coeff of Jessica 15.2 H (11.5-14.5) % Plt Count 192 (130-400) K/uL MPV 10.4 (9.4-12.3) fL Immature Gran % (Auto) 0.2 % Neut % (Auto) 56.5 % Lymph % (Auto) 29.7 % [place] % (Auto) 10.1 % Eos % (Auto) 2.6 % Baso % (Auto) 0.9 % Neut # (Auto) 3.30 (1.4-6.5) K/uL Lymph # (Auto) 1.73 (1.2-3.4) K/uL [place] # (Auto) 0.59 (0.24-0.82) K/uL Eos # (Auto) 0.15 (0-0.50) K/uL Baso # (Auto) 0.05 (0-0.2) K/uL Immature Gran # (Auto) 0.01 (0.00-0.02) K/uL Sodium 135 L (136-145) mmol/L Potassium 3.4 L (3.5-5.1) mmol/L Chloride 103 (98-107) mmol/L Carbon Dioxide 26 (21-32) mmol/L Anion Gap 6 (3-11) BUN 5 L (6-23) mg/dl Creatinine 0.65 (0.6-1.2) mg/dl Est Cr Clr Drug Dosing 93.3 ml/min Est GFR ( Amer) 126.9 ml/min Est GFR (Non-Af Amer) 109.5 ml/min BUN/Creatinine Ratio 7.7 L (10-20) Glucose 90 (70-99(Fasting)) mg/dl Calcium 7.5 L (8.5-10.1) mg/dl Phosphorus 2.8 (2.5-4.9) mg/dl Magnesium 2.3 (1.7-2.4) mg/dl Total Bilirubin 1.0 (0.2-1.0) mg/dl Direct Bilirubin 0.3 H (0-0.2) mg/dl AST 151 H (13-39) U/L ALT 68 H (7-52) U/L Alkaline Phosphatase 224 H (34-104) U/L Total Protein 4.9 L D (6.0-8.3) gm/dl Albumin 2.9 L (3.4-5.0) gm/dl Globulin (2.5-4.0) gm/dl Albumin/Globulin Ratio (0.9-2) Lipase (11-82) U/L TSH (0.300-4.500) uIu/ml HCG, Qual (Negative) Urine Color Urine Appearance (Clear) Urine pH (4.5-7.5) Ur Specific [place] (1.000-1.030) Urine Protein (Negative) Urine Glucose (UA) (Negative) Urine Ketones (Negative) Urine Blood (Negative) Urine Nitrite (Negative) Urine Bilirubin (Negative) Urine Urobilinogen (Negative) Ur Leukocyte Esterase (Negative) Urine WBC (Auto) (0-5) /hpf Urine RBC (Auto) (0-4) /hpf U Hyaline Cast (Auto) (0-5) /lpf U Epithel Cells (Auto) (0-5) /lpf Urine Bacteria (Auto) (Negative) Urine Opiates Screen (Neg) Ur Methadone, Qual (Neg) Urine Barbiturates (Neg) Ur Phencyclidine (PCP) (Neg) U Amphetamin/Meth Scrn (Neg) MDMA (Ecstasy) Screen (Neg) U Benzodiazepines Scrn (Neg) Ur Cocaine Metabolite (Neg) U Marijuana (THC) Screen (Neg) U Marijuana THC Carboxy Drug Screen Comment SARS-CoV-2, RNA, NAAT NEGATIVE (NEGATIVE) 04/10/22 04/10/22 04/10/22 Range/Units 15:11 12:38 12:38 WBC (4.8-10.8) K/ul RBC (3.93-5.22) M/uL Hgb (12.0-16.0) g/dl Hct (34.1-44.9) % MCV (80.0-100.0) fL MCH (25.0-34.0) pg MCHC (32.0-36.0) g/dL RDW Std Deviation (36.4-46.3) fL RDW Coeff of Jessica (11.5-14.5) % Plt Count (130-400) K/uL MPV (9.4-12.3) fL Immature Gran % (Auto) % Neut % (Auto) % Lymph % (Auto) % [place] % (Auto) % Eos % (Auto) % Baso % (Auto) % Neut # (Auto) (1.4-6.5) K/uL Lymph # (Auto) (1.2-3.4) K/uL [place] # (Auto) (0.24-0.82) K/uL Eos # (Auto) (0-0.50) K/uL Baso # (Auto) (0-0.2) K/uL Immature Gran # (Auto) (0.00-0.02) K/uL Sodium (136-145) mmol/L Potassium (3.5-5.1) mmol/L Chloride (98-107) mmol/L Carbon Dioxide (21-32) mmol/L Anion Gap (3-11) BUN (6-23) mg/dl Creatinine (0.6-1.2) mg/dl Est Cr Clr Drug Dosing ml/min Est GFR ( Amer) ml/min Est GFR (Non-Af Amer) ml/min BUN/Creatinine Ratio (10-20) Glucose (70-99(Fasting)) mg/dl Calcium (8.5-10.1) mg/dl Phosphorus (2.5-4.9) mg/dl Magnesium (1.7-2.4) mg/dl Total Bilirubin (0.2-1.0) mg/dl Direct Bilirubin (0-0.2) mg/dl AST (13-39) U/L ALT (7-52) U/L Alkaline Phosphatase (34-104) U/L Total Protein (6.0-8.3) gm/dl Albumin (3.4-5.0) gm/dl Globulin (2.5-4.0) gm/dl Albumin/Globulin Ratio (0.9-2) Lipase (11-82) U/L TSH (0.300-4.500) uIu/ml HCG, Qual (Negative) Urine Color Dark Yellow Urine Appearance Clear (Clear) Urine pH 7.5 (4.5-7.5) Ur Specific [place] 1.022 (1.000-1.030) Urine Protein Trace H (Negative) Urine Glucose (UA) Negative (Negative) Urine Ketones Trace H (Negative) Urine Blood Negative (Negative) Urine Nitrite Negative (Negative) Urine Bilirubin Negative (Negative) Urine Urobilinogen Negative (Negative) Ur Leukocyte Esterase Trace H (Negative) Urine WBC (Auto) 5-10 H (0-5) /hpf Urine RBC (Auto) 0-4 (0-4) /hpf U Hyaline Cast (Auto) 5-10 H (0-5) /lpf U Epithel Cells (Auto) >30 H (0-5) /lpf Urine Bacteria (Auto) 1+ H (Negative) Urine Opiates Screen Neg (Neg) Ur Methadone, Qual Neg (Neg) Urine Barbiturates Neg (Neg) Ur Phencyclidine (PCP) Neg (Neg) U Amphetamin/Meth Scrn Neg (Neg) MDMA (Ecstasy) Screen Neg (Neg) U Benzodiazepines Scrn Neg (Neg) Ur Cocaine Metabolite Neg (Neg) U Marijuana (THC) Screen Pos H (Neg) U Marijuana THC Carboxy Pending Drug Screen Comment Pending SARS-CoV-2, RNA, NAAT (NEGATIVE) 04/10/22 04/10/22 04/10/22 Range/Units 12:38 12:38 12:38 WBC (4.8-10.8) K/ul RBC (3.93-5.22) M/uL Hgb (12.0-16.0) g/dl Hct (34.1-44.9) % MCV (80.0-100.0) fL MCH (25.0-34.0) pg MCHC (32.0-36.0) g/dL RDW Std Deviation (36.4-46.3) fL RDW Coeff of Jessica (11.5-14.5) % Plt Count (130-400) K/uL MPV (9.4-12.3) fL Immature Gran % (Auto) % Neut % (Auto) % Lymph % (Auto) % [place] % (Auto) % Eos % (Auto) % Baso % (Auto) % Neut # (Auto) (1.4-6.5) K/uL Lymph # (Auto) (1.2-3.4) K/uL [place] # (Auto) (0.24-0.82) K/uL Eos # (Auto) (0-0.50) K/uL Baso # (Auto) (0-0.2) K/uL Immature Gran # (Auto) (0.00-0.02) K/uL Sodium (136-145) mmol/L Potassium (3.5-5.1) mmol/L Chloride (98-107) mmol/L Carbon Dioxide (21-32) mmol/L Anion Gap (3-11) BUN (6-23) mg/dl Creatinine (0.6-1.2) mg/dl Est Cr Clr Drug Dosing ml/min Est GFR ( Amer) ml/min Est GFR (Non-Af Amer) ml/min BUN/Creatinine Ratio (10-20) Glucose (70-99(Fasting)) mg/dl Calcium (8.5-10.1) mg/dl Phosphorus (2.5-4.9) mg/dl Magnesium (1.7-2.4) mg/dl Total Bilirubin (0.2-1.0) mg/dl Direct Bilirubin (0-0.2) mg/dl AST (13-39) U/L ALT (7-52) U/L Alkaline Phosphatase (34-104) U/L Total Protein (6.0-8.3) gm/dl Albumin (3.4-5.0) gm/dl Globulin (2.5-4.0) gm/dl Albumin/Globulin Ratio (0.9-2) Lipase (11-82) U/L TSH 4.321 (0.300-4.500) uIu/ml HCG, Qual Negative (Negative) Urine Color Dark Yellow Urine Appearance Cloudy A (Clear) Urine pH 7.0 (4.5-7.5) Ur Specific [place] 1.026 (1.000-1.030) Urine Protein 1+ H (Negative) Urine Glucose (UA) Negative (Negative) Urine Ketones 1+ H (Negative) Urine Blood Trace H (Negative) Urine Nitrite Negative (Negative) Urine Bilirubin Negative (Negative) Urine Urobilinogen Negative (Negative) Ur Leukocyte Esterase Trace H (Negative) Urine WBC (Auto) 10-30 H (0-5) /hpf Urine RBC (Auto) 5-10 H (0-4) /hpf U Hyaline Cast (Auto) 10-30 H (0-5) /lpf U Epithel Cells (Auto) >30 H (0-5) /lpf Urine Bacteria (Auto) 4+ H (Negative) Urine Opiates Screen (Neg) Ur Methadone, Qual (Neg) Urine Barbiturates (Neg) Ur Phencyclidine (PCP) (Neg) U Amphetamin/Meth Scrn (Neg) MDMA (Ecstasy) Screen (Neg) U Benzodiazepines Scrn (Neg) Ur Cocaine Metabolite (Neg) U Marijuana (THC) Screen (Neg) U Marijuana THC Carboxy Drug Screen Comment SARS-CoV-2, RNA, NAAT (NEGATIVE) 04/10/22 04/10/22 Range/Units 12:38 12:38 WBC 8.58 (4.8-10.8) K/ul RBC 4.65 (3.93-5.22) M/uL Hgb 15.1 (12.0-16.0) g/dl Hct 43.4 (34.1-44.9) % MCV 93.3 (80.0-100.0) fL MCH 32.5 (25.0-34.0) pg MCHC 34.8 (32.0-36.0) g/dL RDW Std Deviation 52.6 H (36.4-46.3) fL RDW Coeff of Jessica 15.3 H (11.5-14.5) % Plt Count 247 (130-400) K/uL MPV 10.7 (9.4-12.3) fL Immature Gran % (Auto) 0.2 % Neut % (Auto) 71.6 % Lymph % (Auto) 16.7 % [place] % (Auto) 10.6 % Eos % (Auto) 0.2 % Baso % (Auto) 0.7 % Neut # (Auto) 6.14 (1.4-6.5) K/uL Lymph # (Auto) 1.43 (1.2-3.4) K/uL [place] # (Auto) 0.91 H (0.24-0.82) K/uL Eos # (Auto) 0.02 (0-0.50) K/uL Baso # (Auto) 0.06 (0-0.2) K/uL Immature Gran # (Auto) 0.02 (0.00-0.02) K/uL Sodium 137 (136-145) mmol/L Potassium 3.7 (3.5-5.1) mmol/L Chloride 100 (98-107) mmol/L Carbon Dioxide 23 (21-32) mmol/L Anion Gap 14 H (3-11) BUN 8 (6-23) mg/dl Creatinine 0.76 (0.6-1.2) mg/dl Est Cr Clr Drug Dosing 79.8 ml/min Est GFR ( Amer) 112.1 ml/min Est GFR (Non-Af Amer) 96.8 ml/min BUN/Creatinine Ratio 10.5 (10-20) Glucose 152 H (70-99(Fasting)) mg/dl Calcium 8.4 L (8.5-10.1) mg/dl Phosphorus (2.5-4.9) mg/dl Magnesium 1.8 (1.7-2.4) mg/dl Total Bilirubin 0.8 (0.2-1.0) mg/dl Direct Bilirubin (0-0.2) mg/dl AST 208 H (13-39) U/L ALT 97 H (7-52) U/L Alkaline Phosphatase 286 H (34-104) U/L Total Protein 6.3 (6.0-8.3) gm/dl Albumin 3.6 (3.4-5.0) gm/dl Globulin 2.7 (2.5-4.0) gm/dl Albumin/Globulin Ratio 1.3 (0.9-2) Lipase 102 H (11-82) U/L TSH (0.300-4.500) uIu/ml HCG, Qual (Negative) Urine Color Urine Appearance (Clear) Urine pH (4.5-7.5) Ur Specific [place] (1.000-1.030) Urine Protein (Negative) Urine Glucose (UA) (Negative) Urine Ketones (Negative) Urine Blood (Negative) Urine Nitrite (Negative) Urine Bilirubin (Negative) Urine Urobilinogen (Negative) Ur Leukocyte Esterase (Negative) Urine WBC (Auto) (0-5) /hpf Urine RBC (Auto) (0-4) /hpf U Hyaline Cast (Auto) (0-5) /lpf U Epithel Cells (Auto) (0-5) /lpf Urine Bacteria (Auto) (Negative) Urine Opiates Screen (Neg) Ur Methadone, Qual (Neg) Urine Barbiturates (Neg) Ur Phencyclidine (PCP) (Neg) U Amphetamin/Meth Scrn (Neg) MDMA (Ecstasy) Screen (Neg) U Benzodiazepines Scrn (Neg) Ur Cocaine Metabolite (Neg) U Marijuana (THC) Screen (Neg) U Marijuana THC Carboxy Drug Screen Comment SARS-CoV-2, RNA, NAAT (NEGATIVE) Diagnostic Findings Abdomen/Pelvis CT 04/10/22 14:13 CT SCAN OF THE ABDOMEN AND PELVIS WITH IV CONTRAST CLINICAL HISTORY: Nausea and vomiting. Clinical concern for acute pancreatitis. COMPARISON STUDY: Abdominal CT dated 04/12/2021. TECHNIQUE: Following the IV administration of 93 cc of Optiray 320, CT scan of the abdomen and pelvis is performed from the lung bases to the proximal femora. Images are reviewed in the axial, sagittal, and coronal planes. IV contrast was administered without complication. A dose lowering technique was utilized adhering to the principles of ALARA. There is streak artifact from a naval piercing. CT DOSE: 442.07 mGycm FINDINGS: Lung bases: The heart is normal in size and without pericardial effusion. The lung bases are clear. Liver: The contrast-enhanced liver is enlarged, measuring 20 cm in length. The liver demonstrates diffusely diminished attenuation consistent with severe hepatic steatosis. There is no intrahepatic biliary ductal dilatation. The hepatic veins and portal veins are patent. Gallbladder: Surgically absent noting clips in the gallbladder fossa. Spleen: Normal in size and attenuation. Pancreas: The pancreas is atrophic for age. Calcifications in the region of the pancreatic head are unchanged and suggest chronic pancreatitis. There is no peripancreatic fluid or inflammation. The duct is normal in caliber. The low- attenuation lesion in the pancreatic neck seen on 04/10/2021 is no longer honey ntified and there is more focal glandular atrophy at this site. A 1.4 cm low- attenuation focus adjacent to uncinate process on image #166 has also decreased in size from previous. This is also likely inflammatory. Adrenal glands: Unremarkable. Kidneys: The contrast enhanced kidneys are normal in size and without hydronephrosis. The kidneys enhance symmetrically. There are punctate nonobstructing renal calculi seen bilaterally. Abdominal vasculature: The abdominal aorta is normal in course and caliber noting mild to moderate atherosclerotic calcification. Bowel: The gastric mucosa appears thickened and hyperemic suggesting gastritis. There is no bowel obstruction. Submucosal fat deposition throughout the colon is nonspecific but has been described in the setting of chronic inflammation. The appendix is well-visualized and normal. Peritoneum: There is no intraperitoneal free air or abdominal ascites. Lymphadenopathy: None. Pelvic viscera: The bladder is decompressed and not well assessed. The uterus is normal as visualized noting an intrauterine device in place. There are small ovarian follicles. Skeletal structures: No lytic or blastic lesions are seen. IMPRESSION: 1. The pancreas is atrophic with chronic parenchymal changes as above and evidence of chronic pancreatitis. There is no CT evidence of acute pancreatitis on today's examination. 2. Hepatomegaly and severe hepatic steatosis. 3. Findings suggest gastritis. Clinical correlation will be required. 4. Bilateral nephrolithiasis. 5. Additional findings as above.. ACT 112: Negative or not required by law. Electronically signed by: Austin Hines M.D. 04/10/2022 3:30 PM PG Care Time/CCT Total # of Minutes Spent Total Time Spent with Patient: Total time spent is greater than 50% in coordination of care (as documented) at patient's floor/unit and/or counseling patient: Coding Level of Care Code 61688 Subseq Obs Care Lvl 3 Diagnoses Gastritis K29.70 Anxiety F41.9 Portal vein thrombosis I81 Chronic pancreatitis K86.1 Cirrhosis of liver K74.60 GERD (gastroesophageal reflux disease) K21.9 Chronic migraine G43.709 Hypokalemia E87.6
[2022-04-11] MEDS ORDERED: clonazePAM 0.25 MG TAB PO STA (08:43)
[2022-04-11] MEDS: clonazePAM 0.25 MG TAB PO SCH (08:48)
[2022-04-11] MEDS: APIXABAN 5 MG TABLET PO SCH ×2 (08:48→20:12)
[2022-04-11] MEDS: PANTOprazole 40 MG in SYRINGE 0 ML IV SCH ×2 (08:49→20:13)
[2022-04-11] MEDS: SUCRALFATE 1 GM TAB PO SCH ×3 (08:50→16:11)
[2022-04-11 09:20] LABS: Folate (Folic Acid) > 22.30 ng/ml (>5.38); Vitamin B12 > 1500 pg/ml (180-914)
[2022-04-11] MEDS: PANCREAZE (LIPASE 10,500U) CAP PO SCH ×3 (09:41→16:10)
[2022-04-11] MEDS: POTASSIUM CHLORIDE / WTR 10 MEQ/100 ML PLCT IV SCH ×2 (09:45→10:45)
[2022-04-11] MEDS: CYANOCOBALAMIN (B-12) 500 MCG TABLET PO SCH (10:34)
[2022-04-11] MEDS: FOLIC ACID 1 MG in SYRINGE 9.8 ML IV SCH (10:34)
[2022-04-11] MEDS ORDERED: cefTRIAXone SODIUM 1,000 MG in DEXTROSE 5% 50 ML IV ONE (12:30)
[2022-04-11] MEDS: hydrOXYzine HCl 25 MG TAB PO PRN ×2 (14:37→22:14)
[2022-04-11] MEDS: CAPSAICIN CR 0.075% 60 GM TUBE EXT SCH ×2 (15:01→20:13)
[2022-04-11] MEDS: clonazePAM 0.5 MG TAB PO SCH (20:12)
[2022-04-12] MEDS: METOCLOPRAMIDE HCL INJ 5 MG/ML 2 ML VIAL IV PRN ×3 (01:52→23:15)
[2022-04-12] MEDS: ONDANSETRON INJ 2 MG/ML 2 ML VIAL IV PRN ×3 (04:46→21:36)
[2022-04-12] MEDS: THIAMINE HCL 300 MG in SODIUM CHLORIDE 0.9% 50 ML IV SCH ×3 (05:45→23:09)
[2022-04-12] MEDS: CAPSAICIN CR 0.075% 60 GM TUBE EXT SCH ×3 (07:45→19:59)
[2022-04-12 08:21] LABS: HBSAG NON-REACTIVE (NON-REACTIVE); Hepatitis A Antibody IgM NON-REACTIVE (NON-REACTIVE); Hepatitis B Core Antibody IgM NON-REACTIVE (NON-REACTIVE)
--- NOTE | 2022-04-12 08:25 | Hospitalist Progress Note ---
Date of Service April 12, 2022 Assessment & Plan (1) Gastritis: Plan: Gastritis with nausea and vomiting that she has been unable to control at home Does have history of medical marijuana use for her anxiety -- consider cyclic vomiting (states MMJ use not changed and does not get vomiting from this, however would still consider) Try topical capsaicin to see if any increased benefit CTAP with evidence for chronic pancreatitis, no evidence for acute pancreatitis. +Gastritis. Hepatomegaly and severe hepatic steatosis. Bilateral nephrolithiasis. PPI IV BID -- will transition to PO as diet advance to bland and no further emesis Continue carafate No further IVF Antiemetics prn Follows with [facility] -- discussed no acute inpatient plans for scope given stability and likely outpatient basis and patient ok w/ holding GI consult for now given will be [facility] and will f/u [facility] Regarding alcohol use -- denies recent use but prior reports "sips" for nerves Continue thiamine, folate, B12 Continue creon, continued etoh cessation encouraged LFTs elevated on admit --> trending down but ALP still about the same. Vit D checked/normal (kidney stones on imaging), s/p cholecystectomy Electrolyte replacement --K 3.2, ordered 40meq (on PO supp at home) Will give dose spironolactone 12.5mg x 1 given elevated BPs as well Tx for UTI (denied "symptoms" but n/v/frequency 04/11) urine cx staph species-- rocephin x 1 on 04/11, complete course with Keflex Continued inpatient monitoring (2) Anxiety: Plan: Previously on larger amounts of Klonopin 2mg BID, recently titrating down with PCP and currently on 0.25mg QAM, 0.5mg QPM Additional 0.5mg x 1 given this morning but discussed not wanting to backpedal Previously trial/weaned off Cymbalta per PCP notes. Patient also stated trial Prozac, discontinued in February TSH wnl, B12/folate wnl given etoh hx Also uses MMJ for anxiety symptoms at home. Did try topical capsaicin x1, burning, discontinued On Vistaril 50mg tid prn --> increased to 75mg TID scheduled and can further titrate outpt f/u Psych liaison consulted -- outpt f/u [facility] for April 24 -- psych provider agree to continue current Klonopin dosing 0.25mg QAM, 0.5mg PM (3) Portal vein thrombosis: Plan: Hx portal vein thrombosis, continues on eliquis 5mg BID ?further imaging if issues persist however NON-TENDER ON EXAM (4) Chronic pancreatitis: Plan: Continue Creon - lipase 102 likely related to her volume status, LR overnight, wanting to eat and d/c IVF this afternoon No abdominal pain reported (5) Cirrhosis of liver: Plan: Chronic elevations- AST 208 ALT 97, ALP 286 on admit Increased from prior levels -- hydration with IVF as above, likely from etoh use as well as n/v prior to admit TB wnl -- hx cholecystectomy LFTs improved --> AST 116, AST 68, however ALP 250 (vit d wnl) INR 1.1 (blood tinge emesis in ER on admit, non further, hgb stable) Encourage cessation from alcohol use although reports has not drank like prior Given spironolactone 12.5mg x 1 today for elevated BP (reportedly asymptomatic but consistently elevated) however should help with hypokalemia as well Consider daily spironolactone at d/c vs discussion with [facility] in follow up (6) GERD (gastroesophageal reflux disease): Plan: As above, protonix BID and would continue with carafate at d/c F/u [facility] at d/c (7) Chronic migraine: Plan: Continue sumitritan (8) Hypokalemia: Plan: K 3.2 on AM labs, likely from GI losses from prior n/v and is on daily supplementation at home 40meq PO ordered. Mag wnl with persistent HTN -- ?if ever checked for primary aldosteronism given HTN as well however given dose spironolactone so results may be skewed if checked. Monitor AM labs but resumed 20meq PO QAM given taking improved PO Plan continued inpatient stay likely d/c next 24-48 hours Admission and Anticipated Discharge Date Admission Date: April 10, 2022 Subjective Patient evaluated this morning. Ate turkey and mashed potatoes/gravy last evening. No further emesis, no abdominal pain but does have some nausea. Given dose 0.5mg Klonopin this morning and psych working for outpatient tx. Had trial capsaicin but had abdominal burning, will not continue. Denies using any extra benzo outpatient off street. Discussed MMJ and inpatient topical/tinctures if have/can contact security to bring in future. No one able to bring. No fever/chills, chest pain. Does have occasional tightness w/ panic symptoms. No abdominal pain, vomiting or dysuria reported today. Discussed carafate to help relining of esophagus as well as PPI and continued abstinence of alcohol which she states she has been since last July. Was able to sleep some last night, approx 1-2 hours and felt like best sleep she has gotten in a while and thankful for that with the increased dose of vistaril and will continue. Repeat EKG w/ acceptable QTC Working on outpt psych follow up but will monitor on diet and consider d/c over the weekend. Review of Systems Review of Systems: All systems reviewed & are unremarkable except as noted in HPI & below Physical Exam Physical Exam: General: WD/WN female, looks older than state, NAD sitting up in bed HEENT: head normocephalic, atraumatic, eyes anicteric, mmm, trachea midline without deviation Resp: CTAB, no w/c/r on room air CV: regular (96bpm) rate and rhythm, no m/r/g, no calf edema GI: +BS, soft, nontender : no Chinchilla MSK/Neuro: moves all extremities, no focal deficit Psych: aox3, anxious but much more calm today Skin: warm, dry Results & Data Results & Data ([facility]) Vital Signs (Past 12 Hours) Vital Signs Temp Pulse Resp BP BP Pulse Ox O2 Del Method 04/12/22 07:34 36.4 C L 112 H 16 119/91 96 Room Air 04/11/22 22:20 36.8 C 103 H 16 134/89 96 Room Air Laboratory Results 04/12/22 04/12/22 04/12/22 Range/Units 08:13 08:13 08:13 WBC 7.45 (4.8-10.8) K/ul RBC 4.50 (3.93-5.22) M/uL Hgb 14.5 (12.0-16.0) g/dl Hct 42.6 (34.1-44.9) % MCV 94.7 (80.0-100.0) fL MCH 32.2 (25.0-34.0) pg MCHC 34.0 (32.0-36.0) g/dL RDW Std Deviation 54.2 H (36.4-46.3) fL RDW Coeff of Jessica 15.6 H (11.5-14.5) % Plt Count 245 (130-400) K/uL MPV 10.8 (9.4-12.3) fL Immature Gran % (Auto) 0.4 % Neut % (Auto) 59.5 % Lymph % (Auto) 28.7 % Mcleod % (Auto) 8.7 % Eos % (Auto) 2.0 % Baso % (Auto) 0.7 % Neut # (Auto) 4.43 (1.4-6.5) K/uL Lymph # (Auto) 2.14 (1.2-3.4) K/uL Mcleod # (Auto) 0.65 (0.24-0.82) K/uL Eos # (Auto) 0.15 (0-0.50) K/uL Baso # (Auto) 0.05 (0-0.2) K/uL Immature Gran # (Auto) 0.03 H (0.00-0.02) K/uL PT 11.4 (9.0-12.0) Seconds INR 1.1 (0.9-1.1) Sodium (136-145) mmol/L Potassium (3.5-5.1) mmol/L Chloride (98-107) mmol/L Carbon Dioxide (21-32) mmol/L Anion Gap (3-11) BUN (6-23) mg/dl Creatinine (0.6-1.2) mg/dl Est Cr Clr Drug Dosing ml/min Est GFR ( Amer) ml/min Est GFR (Non-Af Amer) ml/min BUN/Creatinine Ratio (10-20) Glucose (70-99(Fasting)) mg/dl Calcium (8.5-10.1) mg/dl Magnesium (1.7-2.4) mg/dl Total Bilirubin (0.2-1.0) mg/dl Direct Bilirubin (0-0.2) mg/dl AST (13-39) U/L ALT (7-52) U/L Alkaline Phosphatase (34-104) U/L Total Protein (6.0-8.3) gm/dl Albumin (3.4-5.0) gm/dl 25-OH Vitamin D Total 41.9 (30-100) ng/ml Hepatitis A IgM Ab (NON-REACTIVE) Hep Bs Antigen (NON-REACTIVE) Hep Bs Ag Confirmation Hep B Core IgM Ab (NON-REACTIVE) Hepatitis C Ab (EIA) (NON-REACTIVE) Hep C Ab Signal/Cutoff (<1.00) 04/12/22 04/11/22 Range/Units 08:13 13:06 WBC (4.8-10.8) K/ul RBC (3.93-5.22) M/uL Hgb (12.0-16.0) g/dl Hct (34.1-44.9) % MCV (80.0-100.0) fL MCH (25.0-34.0) pg MCHC (32.0-36.0) g/dL RDW Std Deviation (36.4-46.3) fL RDW Coeff of Jessica (11.5-14.5) % Plt Count (130-400) K/uL MPV (9.4-12.3) fL Immature Gran % (Auto) % Neut % (Auto) % Lymph % (Auto) % Mcleod % (Auto) % Eos % (Auto) % Baso % (Auto) % Neut # (Auto) (1.4-6.5) K/uL Lymph # (Auto) (1.2-3.4) K/uL Mcleod # (Auto) (0.24-0.82) K/uL Eos # (Auto) (0-0.50) K/uL Baso # (Auto) (0-0.2) K/uL Immature Gran # (Auto) (0.00-0.02) K/uL PT (9.0-12.0) Seconds INR (0.9-1.1) Sodium 140 (136-145) mmol/L Potassium 3.2 L (3.5-5.1) mmol/L Chloride 103 (98-107) mmol/L Carbon Dioxide 27 (21-32) mmol/L Anion Gap 10 (3-11) BUN 2 L (6-23) mg/dl Creatinine 0.67 (0.6-1.2) mg/dl Est Cr Clr Drug Dosing 90.5 ml/min Est GFR ( Amer) 125.7 ml/min Est GFR (Non-Af Amer) 108.4 ml/min BUN/Creatinine Ratio 3.0 L (10-20) Glucose 119 H (70-99(Fasting)) mg/dl Calcium 8.2 L (8.5-10.1) mg/dl Magnesium 2.0 (1.7-2.4) mg/dl Total Bilirubin 0.8 (0.2-1.0) mg/dl Direct Bilirubin 0.2 (0-0.2) mg/dl AST 116 H (13-39) U/L ALT 68 H (7-52) U/L Alkaline Phosphatase 250 H (34-104) U/L Total Protein 6.4 D (6.0-8.3) gm/dl Albumin 3.6 (3.4-5.0) gm/dl 25-OH Vitamin D Total (30-100) ng/ml Hepatitis A IgM Ab NON-REACTIVE (NON-REACTIVE) Hep Bs Antigen NON-REACTIVE (NON-REACTIVE) Hep Bs Ag Confirmation TNP Hep B Core IgM Ab NON-REACTIVE (NON-REACTIVE) Hepatitis C Ab (EIA) NON-REACTIVE (NON-REACTIVE) Hep C Ab Signal/Cutoff 0.00 (<1.00) PG Care Time/CCT Total # of Minutes Spent Total Time Spent with Patient: Total time spent is greater than 50% in coordination of care (as documented) at patient's floor/unit and/or counseling patient: Coding Level of Care Code 58857 Subseq Obs Care Lvl 3 Diagnoses Gastritis K29.70 Anxiety F41.9 Portal vein thrombosis I81 Chronic pancreatitis K86.1 Cirrhosis of liver K74.60 GERD (gastroesophageal reflux disease) K21.9 Chronic migraine G43.709 Hypokalemia E87.6
[2022-04-12] MEDS: hydrOXYzine HCl 25 MG TAB PO PRN ×2 (08:50→15:13)
[2022-04-12] MEDS: clonazePAM 0.25 MG TAB PO SCH (08:50)
[2022-04-12] MEDS: SUCRALFATE 1 GM TAB PO SCH ×3 (08:51→17:25)
[2022-04-12] MEDS: FOLIC ACID 1 MG in SYRINGE 9.8 ML IV SCH (08:51)
[2022-04-12] MEDS: APIXABAN 5 MG TABLET PO SCH ×2 (08:51→20:01)
[2022-04-12] MEDS: CYANOCOBALAMIN (B-12) 500 MCG TABLET PO SCH (08:52)
[2022-04-12] MEDS: PANCREAZE (LIPASE 10,500U) CAP PO SCH ×3 (08:53→17:25)
[2022-04-12] MEDS: PANTOprazole 40 MG in SYRINGE 0 ML IV SCH (08:53)
[2022-04-12 09:03] LABS: Basophils # (auto) 0.05 K/uL (0-0.2); Basophils % (auto) 0.7 %; Eosinophils # (auto) 0.15 K/uL (0-0.50); Hematocrit (blood only) 42.6 % (34.1-44.9); Hemoglobin 14.5 g/dl (12.0-16.0); Immature Granulocytes # (auto) 0.03 K/uL (0.00-0.02); Immature Granulocytes % (auto) 0.4 %; Lymphocytes # (auto) 2.14 K/uL (1.2-3.4); Lymphocytes % (auto) 28.7 %; Mean Corpuscular Hemoglobin 32.2 pg (25.0-34.0); Mean Corpuscular Volume 94.7 fL (80.0-100.0); Mean Platelet Volume 10.8 fL (9.4-12.3); Monocytes # (auto) 0.65 K/uL (0.24-0.82); Monocytes % (auto) 8.7 %; Neutrophils # (auto) 4.43 K/uL (1.4-6.5); Neutrophils % (auto) 59.5 %; Platelet Count 245 K/uL (130-400); RDW Coefficient of Variation 15.6 % (11.5-14.5); RDW Standard Deviation 54.2 fL (36.4-46.3); White Blood Count 7.45 K/ul (4.8-10.8)
[2022-04-12 09:08] LABS: INR 1.1 (0.9-1.1); Prothrombin Time 11.4 Seconds (9.0-12.0)
[2022-04-12 09:47] LABS: Albumin Level 3.6 gm/dl (3.4-5.0); Bilirubin Direct 0.2 mg/dl (0-0.2); Bilirubin,Total 0.8 mg/dl (0.2-1.0); Calcium 8.2 mg/dl (8.5-10.1); Creatinine Clr Calc Pharmacy 90.5 ml/min; Est GFR (African American) 125.7 ml/min; Est GFR (Non-African American) 108.4 ml/min; Potassium 3.2 mmol/L (3.5-5.1); Total Protein 6.4 gm/dl (6.0-8.3)
[2022-04-12] MEDS ORDERED: POTASSIUM CHLORIDE CRTAB 20 MEQ TABCR PO STA (09:49)
[2022-04-12] MEDS ORDERED: clonazePAM 0.5 MG TAB PO STA (10:59)
[2022-04-12] MEDS: cephALEXin 500 MG CAP PO SCH ×3 (13:08→23:16)
[2022-04-12] MEDS: BACLOFEN 20 MG TAB PO PRN (13:15)
[2022-04-12] MEDS ORDERED: STAT IV STA (14:18)
[2022-04-12] MEDS ORDERED: SPIRONOLACTONE 12.5 MG TAB PO ONE (14:30)
[2022-04-12] MEDS ORDERED: CALCIUM GLUCONATE 10% 1,000 MG in DEXTROSE 5% 50 ML IV ONE (14:45)
[2022-04-12] MEDS: PROMETHAZINE HCL 12.5 MG in SODIUM CHLORIDE 0.9% 50 ML IV PRN (17:41)
--- NOTE | 2022-04-12 18:10 | Electrocardiogram Report ---
Test Reason : Blood Pressure : / mmHG Vent. Rate : 093 BPM Atrial Rate : 093 BPM P-R Int : 148 ms QRS Dur : 070 ms QT Int : 370 ms P-R-T Axes : 060 028 027 degrees QTc Int : 460 ms Normal sinus rhythm Low voltage QRS Nonspecific T wave abnormality Prolonged QT Abnormal ECG When compared with ECG of 10-APR-2022 13:27, T wave inversion now evident in Anterior leads Confirmed by Magen Mello [id number] on 04/12/2022 6:09:54 PM Referred By: REFERRED SELF Confirmed By:Salvador Mello
[2022-04-12] MEDS: PANTOprazole 40 MG TAB PO SCH (20:01)
[2022-04-12] MEDS: clonazePAM 0.5 MG TAB PO SCH (20:01)
[2022-04-12] MEDS ORDERED: ACETAMINOPHEN 1,000 MG/100 ML VIAL IV ONE (22:01)
[2022-04-12] MEDS: MELATONIN 3 MG TAB PO PRN (22:32)
[2022-04-12] MEDS ORDERED: ALUMINUM/MAGNESIUM SUSP 18 ML, LIDOCAINE VISCOUS 2% SOLN 6 ML, BARCODE IDENTIFIER 1 EACH PO ONE (23:30)
[2022-04-13] MEDS: BACLOFEN 20 MG TAB PO PRN (00:55)
[2022-04-13] MEDS: THIAMINE HCL 300 MG in SODIUM CHLORIDE 0.9% 50 ML IV SCH ×3 (05:30→21:09)
[2022-04-13] MEDS: hydrOXYzine HCl 25 MG TAB PO PRN ×2 (05:33→15:29)
[2022-04-13] MEDS: cephALEXin 500 MG CAP PO SCH ×4 (05:34→23:32)
[2022-04-13] MEDS ORDERED: ALUMINUM/MAGNESIUM SUSP 18 ML, LIDOCAINE VISCOUS 2% SOLN 6 ML, BARCODE IDENTIFIER 1 EACH PO ONE (05:38)
[2022-04-13] MEDS: PROMETHAZINE HCL 12.5 MG in SODIUM CHLORIDE 0.9% 50 ML IV PRN (06:07)
[2022-04-13 07:07] LABS: Basophils # (auto) 0.04 K/uL (0-0.2); Basophils % (auto) 0.7 %; Eosinophils # (auto) 0.13 K/uL (0-0.50); Eosinophils % (auto) 2.2 %; Hematocrit (blood only) 38.6 % (34.1-44.9); Hemoglobin 13.1 g/dl (12.0-16.0); Immature Granulocytes # (auto) 0.03 K/uL (0.00-0.02); Immature Granulocytes % (auto) 0.5 %; Lymphocytes # (auto) 1.75 K/uL (1.2-3.4); Mean Corpuscular Hemoglobin 32.8 pg (25.0-34.0); Mean Corpuscular Hgb Conc 33.9 g/dL (32.0-36.0); Mean Corpuscular Volume 96.7 fL (80.0-100.0); Mean Platelet Volume 10.4 fL (9.4-12.3); Monocytes # (auto) 0.71 K/uL (0.24-0.82); Monocytes % (auto) 12.2 %; Neutrophils # (auto) 3.17 K/uL (1.4-6.5); Neutrophils % (auto) 54.4 %; Platelet Count 182 K/uL (130-400); RDW Coefficient of Variation 15.4 % (11.5-14.5); Red Blood Count 3.99 M/uL (3.93-5.22); White Blood Count 5.83 K/ul (4.8-10.8)
[2022-04-13 07:35] LABS: Albumin Level 3.1 gm/dl (3.4-5.0); BUN Creatinine Ratio 3.3 (10-20); Bilirubin Direct 0.2 mg/dl (0-0.2); Bilirubin,Total 0.6 mg/dl (0.2-1.0); Calcium 8.1 mg/dl (8.5-10.1); Est GFR (African American) 130.3 ml/min; Est GFR (Non-African American) 112.4 ml/min; Magnesium 1.8 mg/dl (1.7-2.4); Potassium 3.6 mmol/L (3.5-5.1); Total Protein 5.5 gm/dl (6.0-8.3)
[2022-04-13] MEDS: PANCREAZE (LIPASE 10,500U) CAP PO SCH ×3 (08:14→17:37)
[2022-04-13] MEDS: APIXABAN 5 MG TABLET PO SCH ×2 (08:14→21:07)
[2022-04-13] MEDS: FOLIC ACID 1 MG in SYRINGE 9.8 ML IV SCH (08:14)
[2022-04-13] MEDS: CYANOCOBALAMIN (B-12) 500 MCG TABLET PO SCH (08:15)
[2022-04-13] MEDS: SUCRALFATE 1 GM TAB PO SCH ×3 (08:15→17:36)
[2022-04-13] MEDS: PANTOprazole 40 MG TAB PO SCH (08:16)
[2022-04-13] MEDS: clonazePAM 0.25 MG TAB PO SCH (08:21)
[2022-04-13] MEDS: CAPSAICIN CR 0.075% 60 GM TUBE EXT SCH ×2 (08:24→13:47)
--- NOTE | 2022-04-13 08:45 | Hospitalist Progress Note ---
Date of Service April 13, 2022 Assessment & Plan (1) Pancreatitis: Plan: admitted w/ gastritis/nausea/vomiting, no evidence on initial imaging however repeated for 9/10 epigastric pain See below (2) Gastritis: Plan: Gastritis with nausea and vomiting that she has been unable to control at home Does have history of medical marijuana use for her anxiety -- consider cyclic vomiting (states MMJ use not changed and does not get vomiting from this however still considered) Capsacin ineffective Initial CTAP on admit with evidence for gastritis, no evidence for acute pancreatitis Antiemetics provided, diet advanced and was tolerating with some nausea however with increased abdominal pain (WAS NOT HAVING PAIN PRIOR) and repeat CTAP requested AM 04/13 CTAP consistent w/ acute on chronic pancreatitis, no abscess. Lipase 152 ?if increased dose of vistaril as used for anxiety culprit however was improving her anxiety symptoms Make NPO LR @ 125cc/hr for now Change Protonix back to IV BID, continue carafate for gastritis Pain control -- allergy to morphine, IV dilaudid available but limit to as needed 0.5-1mg as needed Follows with [facility] and was planning for outpatient follow up but given next pancreatitis while not drinking in hospital likely medication related but consult placed per patient request to see about changing follow up as she states difficulty with follow up at [facility] and timing and elevated LFTs although improving and patient s/p cholecystectomy. ?stricture/need for EUS/ERCP Supportive care/electrolyte replacement as needed Monitor lab (3) Anxiety: Plan: Previously on larger amounts of Klonopin 2mg BID, recently titrating down with PCP and currently on 0.25mg QAM, 0.5mg QPM. Previously trial/weaned off Cymbalta per PCP notes. Patient also stated trial Prozac, discontinued in February TSH wnl, B12/folate wnl given etoh hx Additional 0.5mg x 1 given AM 7/15 but discussed not wanting to backpedal and patient was having improvement in anxiety with increased Vistaril while inpatient * increased to 75mg TID scheduled and can further titrate outpt f/u however now with acute on chronic pancreatitis and could be from such? changed back to 50mg dosing and changed to prn however anxiety symptoms were improved on increased dose Also uses MMJ for anxiety symptoms at home. Did try topical capsaicin x1, burning, discontinued Psych liaison consulted -- outpt f/u [place] for April 24 -- psych provider agree to continue current Klonopin dosing 0.25mg QAM, 0.5mg PM (4) Portal vein thrombosis: Plan: Hx portal vein thrombosis, continues on eliquis 5mg BID ?further imaging --> consulted GI and defer repeat imaging for such to them given remains on AC w/ eliquis (5) Chronic pancreatitis: Plan: Continue Creon No evidence on initial imaging and was only having nausea --> NOW w/ pain 04/13 and repeat imaging consistent with such See above Monitor levels in AM (6) Cirrhosis of liver: Plan: Chronic elevations- AST 208 ALT 97, ALP 286 on admit which were increased from prior CTAP w/o acute pancreatitis/issue on admit TB wnl in pt w/ hx emery Hep panel negative, added CMV/EBV INR 1.1 LFTs improving and will monitor Given spironolactone 12.5mg x 1 04/12, 04/13 and to help with BP/hypokalemia No ascites on imaging/exam Monitor BP (7) GERD (gastroesophageal reflux disease): Plan: As above, protonix BID and would continue with carafate at d/c (8) Chronic migraine: Plan: Continue sumatriptan prn but would be cautious w/ BP (9) Hypokalemia: Plan: Low, on supp at home K stable on AM labs (given spironolactone as above) ?primary db given HTN however testing to be skewed if obtained given already given dose spironolactone. Consider in outpt f/u BMP in AM Tx for UTI (denied "symptoms" but n/v/frequency 04/11) urine cx staph species-- rocephin x 1 on 04/11, complete course with Keflex Plan continued inpatient stay likely d/c next 24-48 hours Admission and Anticipated Discharge Date Admission Date: April 10, 2022 Subjective patient evaluated this morning having abdominal disomforts for about four hours, epigastric and esophageal in nature. No radiation. Nauseated but no emesis this morning (reported last evening), repeat imaging for diffuse abdominal pain reveals pancreatitis.Made NPO and pain medication and IVF ordered and GI consulted. Patient feeling relieved about help but frustrated as not drinking. Discussed could be from increasing her dose of vistaril however the increase has helped with anxiety symptoms. Review of Systems Review of Systems: All systems reviewed & are unremarkable except as noted in HPI & below Physical Exam Physical Exam: General: WD/WN female, mildly uncomfortable, NAD HEENT: head normocephalic, atraumatic, eyes anicteric, mmm, trachea midline without deviation Resp: CTAB, no w/c/r on room air CV: regular (95bpm) rate and rhythm, no m/r/g, no calf edema GI: +BS, diffusely tender, increased in epigastric region, no guarding/rebound : no Chinchilla MSK/Neuro: moves all extremities, no focal deficit Psych: aox3, cooperative Results & Data Results & Data ([facility]) Vital Signs (Past 12 Hours) Vital Signs Temp Pulse Resp BP BP Pulse Ox O2 Del Method 04/13/22 07:31 36.7 C 95 H 16 125/94 95 Room Air 04/12/22 22:27 36.8 C 105 H 18 133/93 97 Room Air Laboratory Results 04/13/22 04/13/22 04/13/22 Range/Units 10:34 10:34 06:54 WBC (4.8-10.8) K/ul RBC (3.93-5.22) M/uL Hgb (12.0-16.0) g/dl Hct (34.1-44.9) % MCV (80.0-100.0) fL MCH (25.0-34.0) pg MCHC (32.0-36.0) g/dL RDW Std Deviation (36.4-46.3) fL RDW Coeff of Jessica (11.5-14.5) % Plt Count (130-400) K/uL MPV (9.4-12.3) fL Immature Gran % (Auto) % Neut % (Auto) % Lymph % (Auto) % [place] % (Auto) % Eos % (Auto) % Baso % (Auto) % Neut # (Auto) (1.4-6.5) K/uL Lymph # (Auto) (1.2-3.4) K/uL [place] # (Auto) (0.24-0.82) K/uL Eos # (Auto) (0-0.50) K/uL Baso # (Auto) (0-0.2) K/uL Immature Gran # (Auto) (0.00-0.02) K/uL Sodium (136-145) mmol/L Potassium (3.5-5.1) mmol/L Chloride (98-107) mmol/L Carbon Dioxide (21-32) mmol/L Anion Gap (3-11) BUN (6-23) mg/dl Creatinine (0.6-1.2) mg/dl Est Cr Clr Drug Dosing ml/min Est GFR ( Amer) ml/min Est GFR (Non-Af Amer) ml/min BUN/Creatinine Ratio (10-20) Glucose (70-99(Fasting)) mg/dl POC Glucose (70-99) mg/dl Calcium (8.5-10.1) mg/dl Magnesium (1.7-2.4) mg/dl Total Bilirubin (0.2-1.0) mg/dl Direct Bilirubin (0-0.2) mg/dl AST (13-39) U/L ALT (7-52) U/L Alkaline Phosphatase (34-104) U/L Total Protein (6.0-8.3) gm/dl Albumin (3.4-5.0) gm/dl Lipase 152 H (11-82) U/L Renin Activity CMV IgM Ab Pending CMV IgG Ab/TORCH Pending EBV Capsid Ag IgG Ab Pending EBV Capsid Ag IgM Ab Pending EBV Nuclear Antigen Ab Pending EBV Antibody Interp Pending 04/13/22 04/13/22 04/13/22 Range/Units 06:54 06:54 06:54 WBC 5.83 (4.8-10.8) K/ul RBC 3.99 (3.93-5.22) M/uL Hgb 13.1 (12.0-16.0) g/dl Hct 38.6 (34.1-44.9) % MCV 96.7 (80.0-100.0) fL MCH 32.8 (25.0-34.0) pg MCHC 33.9 (32.0-36.0) g/dL RDW Std Deviation 55.0 H (36.4-46.3) fL RDW Coeff of Jessica 15.4 H (11.5-14.5) % Plt Count 182 (130-400) K/uL MPV 10.4 (9.4-12.3) fL Immature Gran % (Auto) 0.5 % Neut % (Auto) 54.4 % Lymph % (Auto) 30.0 % [place] % (Auto) 12.2 % Eos % (Auto) 2.2 % Baso % (Auto) 0.7 % Neut # (Auto) 3.17 (1.4-6.5) K/uL Lymph # (Auto) 1.75 (1.2-3.4) K/uL [place] # (Auto) 0.71 (0.24-0.82) K/uL Eos # (Auto) 0.13 (0-0.50) K/uL Baso # (Auto) 0.04 (0-0.2) K/uL Immature Gran # (Auto) 0.03 H (0.00-0.02) K/uL Sodium 138 (136-145) mmol/L Potassium 3.6 (3.5-5.1) mmol/L Chloride 105 (98-107) mmol/L Carbon Dioxide 28 (21-32) mmol/L Anion Gap 5 (3-11) BUN 2 L (6-23) mg/dl Creatinine 0.60 (0.6-1.2) mg/dl Est Cr Clr Drug Dosing 101.0 ml/min Est GFR ( Amer) 130.3 ml/min Est GFR (Non-Af Amer) 112.4 ml/min BUN/Creatinine Ratio 3.3 L (10-20) Glucose 108 H (70-99(Fasting)) mg/dl POC Glucose (70-99) mg/dl Calcium 8.1 L (8.5-10.1) mg/dl Magnesium 1.8 (1.7-2.4) mg/dl Total Bilirubin 0.6 (0.2-1.0) mg/dl Direct Bilirubin 0.2 (0-0.2) mg/dl AST 93 H (13-39) U/L ALT 52 (7-52) U/L Alkaline Phosphatase 198 H (34-104) U/L Total Protein 5.5 L (6.0-8.3) gm/dl Albumin 3.1 L (3.4-5.0) gm/dl Lipase (11-82) U/L Renin Activity Pending CMV IgM Ab CMV IgG Ab/TORCH EBV Capsid Ag IgG Ab EBV Capsid Ag IgM Ab EBV Nuclear Antigen Ab EBV Antibody Interp 04/13/22 Range/Units 05:37 WBC (4.8-10.8) K/ul RBC (3.93-5.22) M/uL Hgb (12.0-16.0) g/dl Hct (34.1-44.9) % MCV (80.0-100.0) fL MCH (25.0-34.0) pg MCHC (32.0-36.0) g/dL RDW Std Deviation (36.4-46.3) fL RDW Coeff of Jessica (11.5-14.5) % Plt Count (130-400) K/uL MPV (9.4-12.3) fL Immature Gran % (Auto) % Neut % (Auto) % Lymph % (Auto) % [place] % (Auto) % Eos % (Auto) % Baso % (Auto) % Neut # (Auto) (1.4-6.5) K/uL Lymph # (Auto) (1.2-3.4) K/uL [place] # (Auto) (0.24-0.82) K/uL Eos # (Auto) (0-0.50) K/uL Baso # (Auto) (0-0.2) K/uL Immature Gran # (Auto) (0.00-0.02) K/uL Sodium (136-145) mmol/L Potassium (3.5-5.1) mmol/L Chloride (98-107) mmol/L Carbon Dioxide (21-32) mmol/L Anion Gap (3-11) BUN (6-23) mg/dl Creatinine (0.6-1.2) mg/dl Est Cr Clr Drug Dosing ml/min Est GFR ( Amer) ml/min Est GFR (Non-Af Amer) ml/min BUN/Creatinine Ratio (10-20) Glucose (70-99(Fasting)) mg/dl POC Glucose 101 H (70-99) mg/dl Calcium (8.5-10.1) mg/dl Magnesium (1.7-2.4) mg/dl Total Bilirubin (0.2-1.0) mg/dl Direct Bilirubin (0-0.2) mg/dl AST (13-39) U/L ALT (7-52) U/L Alkaline Phosphatase (34-104) U/L Total Protein (6.0-8.3) gm/dl Albumin (3.4-5.0) gm/dl Lipase (11-82) U/L Renin Activity CMV IgM Ab CMV IgG Ab/TORCH EBV Capsid Ag IgG Ab EBV Capsid Ag IgM Ab EBV Nuclear Antigen Ab EBV Antibody Interp Diagnostic Findings Abdomen/Pelvis CT 04/13/22 09:[address] WITH IV CONTRAST CT DOSE: 278.40 mGy.cm HISTORY: hx pancreatitis/cyst, inc nausea/mid abdominal pain TECHNIQUE: Multiaxial CT images of the abdomen and pelvis were performed following the use of intravenous contrast. A dose lowering technique was utilized adhering to the principles of ALARA. COMPARISON STUDY: Abdomen and pelvis CT 04/10/2022. FINDINGS: A stable 3 mm nodule within the right middle lobe on image 21. This is likely benign given the long-term stability. Mild dependent changes seen within the lung bases. No pneumoperitoneum. No pneumatosis. No fractures within the visualized osseous structures. Hepatomegaly and hepatic steatosis again noted. Prior cholecystectomy. The main portal vein is patent. The spleen, adrenal glands, and kidneys are unremarkable. No hydronephrosis. No retroperitoneal lymphadenopathy. Normal caliber abdominal aorta. Punctate calcification at the uncinate process of the pancreas is again noted. There is minimal peripancreatic edema at the head an uncinate process of the pancreas which has developed in the interval. This is consistent with mild acute on chronic pancreatitis. Stable 1.4 cm cystic focus at the uncinate process of the pancreas. Minimal enhancement within the common bile duct wall remains unchanged and is likely reactive. The common bile duct is normal in caliber. Gastric wall thickening is likely due to underdistention. No adjacent inflammatory change to suggest a gastritis. No pelvic lymphadenopathy or pelvic free fluid. Small ovarian cysts measuring up to 1 cm. An intrauterine device is in good position. The bladder is decompressed but appears unremarkable. No bowel wall thickening or obstruction. Normal appendix. Mild submucosal fat deposition within the colon is likely chronic. IMPRESSION: 1. Interval development of mild peripancreatic inflammatory change/edema at the head/uncinate process of the pancreas. This is consistent with a mild acute pancreatitis. 2. No bowel wall thickening or obstruction. 3. Normal appendix. 4. Hepatic steatosis. 5. Prior cholecystectomy. ACT 112: Negative or not required by law. Electronically signed by: Bunny Doherty M.D. 04/13/2022 10:28 AM PG Care Time/CCT Total # of Minutes Spent Total Time Spent with Patient: Total time spent is greater than 50% in coordination of care (as documented) at patient's floor/unit and/or counseling patient: Coding Level of Care Code 50167 Subseq Hosp Care Lvl 3 Diagnoses Pancreatitis K85.90 Gastritis K29.70 Anxiety F41.9 Portal vein thrombosis I81 Chronic pancreatitis K86.1 Cirrhosis of liver K74.60 GERD (gastroesophageal reflux disease) K21.9 Chronic migraine G43.709 Hypokalemia E87.6
[2022-04-13] MEDS ORDERED: POTASSIUM CHLORIDE CRTAB 20 MEQ TABCR PO SCH (09:00)
[2022-04-13] MEDS ORDERED: MAGNESIUM OXIDE 400 MG TAB PO SCH (09:00)
[2022-04-13] MEDS: SPIRONOLACTONE 12.5 MG TAB PO SCH (09:26)
[2022-04-13] MEDS ORDERED: OPTIRAY 320 100ml IV ONE (10:20)
--- NOTE | 2022-04-13 10:32 | CT Scan Report ---
ABDOMEN AND PELVIS CT WITH IV CONTRAST CT DOSE: 278.40 mGy.cm HISTORY: hx pancreatitis/cyst, inc nausea/mid abdominal pain TECHNIQUE: Multiaxial CT images of the abdomen and pelvis were performed following the use of intrave nous contrast. A dose lowering technique was utilized adhering to the principles of ALARA. COMPARISON STUDY: Abdomen and pelvis CT 04/10/2022. FINDINGS: A stable 3 mm nodule within the right middle lobe on image 21. This is likely benign given the long-term stability. Mild dependent changes seen within the lung bases. No pneumoperitoneum. No p neumatosis. No fractures within the visualized osseous structures. Hepatomegaly and hepatic steatosis again noted. Prior cholecystectomy. The main portal vein is patent. The spleen, adrenal glands, and kidneys are unremarkable. No hydronephrosis. No retroperitoneal lymphadenopathy. Normal caliber abdom inal aorta. Punctate calcification at the uncinate process of the pancreas is again noted. There is m inimal peripancreatic edema at the head an uncinate process of the pancreas which has developed in e interval. This is consistent with mild acute on chronic pancreatitis. Stable 1.4 cm cystic focus at the uncinate process of the pancreas. Minimal enhancement within the common bile duct wall remains u nchanged and is likely reactive. The common bile duct is normal in caliber. Gastric wall thickening i s likely due to underdistention. No adjacent inflammatory change to suggest a gastritis. No pelvic ly mphadenopathy or pelvic free fluid. Small ovarian cysts measuring up to 1 cm. An intrauterine device is in good position. The bladder is decompressed but appears unremarkable. No bowel wall thickening o r obstruction. Normal appendix. Mild submucosal fat deposition within the colon is likely chronic. IMPRESSION: 1. Interval development of mild peripancreatic inflammatory change/edema at the head/uncinate process of the pancreas. This is consistent with a mild acute pancreatitis. 2. No bowel wall thickening or obstruction. 3. Normal appendix. 4. Hepatic steatosis. 5. Prior cholecystectomy. ACT 112: Negative or not required by law. Electronically signed by: Bunny Doherty M.D. 04/13/2022 10:28 AM
[2022-04-13] MEDS: LACTATED RINGER'S 1,000 ML IV SCH ×2 (11:02→19:43)
[2022-04-13] MEDS: METOCLOPRAMIDE HCL INJ 5 MG/ML 2 ML VIAL IV PRN ×2 (11:04→22:43)
[2022-04-13] MEDS ORDERED: MoRPHine SULFATE 2 MG/ML CARP IV PRN (11:46)
[2022-04-13] MEDS ORDERED: MoRPHine SULFATE 2 MG/ML CARP IV STA (11:46)
[2022-04-13] MEDS ORDERED: HYDROmorphone INJ 1 MG/ML SYRINGE ONE (12:06)
[2022-04-13] MEDS ORDERED: HYDROmorphone INJ 1 MG/ML SYRINGE IV ONE (12:08)
[2022-04-13 12:56] LABS: Marijuana Quant, GCMS Urine 265 ng/mL (<5)
[2022-04-13] MEDS: HYDROmorphone INJ 1 MG/ML SYRINGE IV PRN (17:40)
[2022-04-13] MEDS: SUCRALFATE 1 GM/10 ML UDC PO SCH ×2 (18:33→21:06)
[2022-04-13] MEDS: ONDANSETRON INJ 2 MG/ML 2 ML VIAL IV PRN (19:43)
[2022-04-13] MEDS ORDERED: SUCRALFATE 1 GM/10 ML UDC PO SCH (21:00)
[2022-04-13] MEDS: clonazePAM 0.5 MG TAB PO SCH (21:06)
[2022-04-13] MEDS: PANTOprazole 40 MG in SYRINGE 0 ML IV SCH (21:06)
[2022-04-13] MEDS: HYDROmorphone INJ 0.5 MG/0.5 ML SYR IV PRN (22:43)
[2022-04-13] MEDS: MELATONIN 3 MG TAB PO PRN (23:33)
[2022-04-14] MEDS: ONDANSETRON INJ 2 MG/ML 2 ML VIAL IV PRN (04:03)
[2022-04-14] MEDS: hydrOXYzine HCl 25 MG TAB PO PRN ×2 (04:03→12:06)
[2022-04-14] MEDS: cephALEXin 500 MG CAP PO SCH ×3 (05:15→16:44)
[2022-04-14] MEDS: HYDROmorphone INJ 0.5 MG/0.5 ML SYR IV PRN ×4 (05:15→21:18)
[2022-04-14] MEDS: THIAMINE HCL 300 MG in SODIUM CHLORIDE 0.9% 50 ML IV SCH ×3 (05:21→21:56)
[2022-04-14 07:11] LABS: Basophils # (auto) 0.05 K/uL (0-0.2); Basophils % (auto) 0.8 %; Eosinophils # (auto) 0.12 K/uL (0-0.50); Eosinophils % (auto) 1.8 %; Hematocrit (blood only) 35.2 % (34.1-44.9); Hemoglobin 11.6 g/dl (12.0-16.0); Immature Granulocytes # (auto) 0.03 K/uL (0.00-0.02); Immature Granulocytes % (auto) 0.5 %; Lymphocytes # (auto) 1.77 K/uL (1.2-3.4); Lymphocytes % (auto) 27.3 %; Mean Platelet Volume 10.5 fL (9.4-12.3); Monocytes # (auto) 0.77 K/uL (0.24-0.82); Monocytes % (auto) 11.9 %; Neutrophils # (auto) 3.75 K/uL (1.4-6.5); Neutrophils % (auto) 57.7 %; Platelet Count 186 K/uL (130-400); RDW Coefficient of Variation 15.6 % (11.5-14.5); RDW Standard Deviation 55.9 fL (36.4-46.3); Red Blood Count 3.63 M/uL (3.93-5.22); White Blood Count 6.49 K/ul (4.8-10.8)
[2022-04-14 07:51] LABS: Albumin Globulin Ratio 1.4 (0.9-2); Albumin Level 2.8 gm/dl (3.4-5.0); BUN Creatinine Ratio 6.3 (10-20); Bilirubin,Total 0.5 mg/dl (0.2-1.0); Calcium 7.8 mg/dl (8.5-10.1); Creatinine Clr Calc Pharmacy 126.3 ml/min; Est GFR (African American) 140.2 ml/min; Magnesium 1.7 mg/dl (1.7-2.4); Potassium 3.2 mmol/L (3.5-5.1); Total Protein 4.8 gm/dl (6.0-8.3)
[2022-04-14] MEDS: PANTOprazole 40 MG in SYRINGE 0 ML IV SCH ×2 (08:23→21:16)
[2022-04-14] MEDS: METOCLOPRAMIDE HCL INJ 5 MG/ML 2 ML VIAL IV PRN (08:23)
--- NOTE | 2022-04-14 08:23 | Gastrointestinal Consultation ---
Date of Consultation April 14, 2022 Assessment & Plan (1) Pancreatitis, chronic: Patient with a history of chronic pancreatitis, as her lipase is relatively normal today and she has no abdominal pain this is not likely related to her present admission. I would suggest that she follow-up with her usual GI prov ider at [facility] to determine if any further interventions are needed with regard to her chronic pancreatitis. (2) Nausea: Patient also has nausea, based on her history I wonder if this is related to a medication such as her cannabis use or perhaps of her antidepressant medications.'s having a psychiatrist involved in her care would be of some benefit for her. for the present time there would be no plan for endoscopic evaluation. I would recommend that the patient discontinue use of cannabis, alcohol and follow-up with her psychiatry provider to determine if any of her other medications such as Lexapro could be associated with her nausea. Please call with any questions or concerns GI to sign off History of Present Illness Reason for Consultation: Chronic pancreatitis Attending Physician: Damian Del Castillo MD History of Present Illness The patient is a 41-year-old female followed by [facility] and at [facility]. [facility] therefore we were asked to see the patient for assistance while an inpatient. Has a long history of substance abuse which includes the use of alcohol and had previously been seen by [facility] for chronic pancreatitis, pancreatic duct stricture and pseudocyst. He was doing fairly well until her clonazepam was being reduced by her psychiatry provider at which time she appears to have relapsed with alcohol use. Notes that her abdominal pain is significantly improved today. she also uses cannabis for control of anxiety. Her main complaint this morning includes nausea. Allergies Allergy/AdvReac Type Severity Reaction Status Date / Time buspirone [From BuSpar] Allergy Severe Unconscious, Verified 04/10/22 16:46 seizures quetiapine [From Seroquel] Allergy Severe Unconscious, Verified 04/10/22 16:46 seizures citalopram [From Celexa] AdvReac Intermediate Vomiting Verified 04/10/22 16:46 fluoxetine AdvReac Intermediate Migraine Verified 04/10/22 16:46 morphine AdvReac Intermediate "MAKES ME Verified 04/10/22 16:46 SICK(VOMITING)" vilazodone [From Viibryd] AdvReac Vomiting Verified 04/10/22 16:46 Home Medications Medication Instructions Recorded Confirmed Type multivitamin 1 tab PO DAILY 03/18/19 04/10/22 History mecobalamin (vitamin B12) 1,000 1,000 mcg PO PM 11/10/19 04/10/22 History mcg chewable tablet (B12 Active) magnesium 200 mg tablet 200 mg PO DAILY 03/15/20 04/10/22 History cannabidiol 100 mg/mL oral solution 1 mg PO HS PRN Pain 02/27/21 04/10/22 History apixaban 5 mg tablet (Eliquis) 5 mg PO Q12 04/12/21 04/10/22 History potassium chloride 20 mEq 20 meq PO DAILY #1 tab 04/14/21 04/10/22 Rx tablet,extended release(part/cryst) (Klor-Con M) thiamine HCl (vitamin B1) 100 mg 200 mg PO DAILY 04/17/21 03/28/22 History tablet [id number]-[id number] 3 cap PO TID Abdominal Discomfort 06/05/21 04/10/22 Rx 36,000-114,000-180,000 unit 90 days #810 caps capsule,delay rel (Creon) melatonin 10 mg capsule 10 mg PO HS PRN Insomnia 09/04/21 04/10/22 History clindamycin phosphate 1 % topical See Rx Instructions .Route 10/02/21 04/10/22 Rx gel .COMPLEX #30 grams hydroxyzine HCl 50 mg tablet 50 mg PO Q6H PRN anxiety #60 tabs 12/18/21 04/10/22 Rx sumatriptan succinate 100 mg 100 mg PO .COMPLEX PRN Migraine 12/18/21 04/10/22 Rx tablet (Imitrex) Headache #16 tabs ondansetron 4 mg disintegrating 4 mg PO Q6H PRN Nausea #30 tabs 02/15/22 04/10/22 Rx tablet baclofen 20 mg tablet 20 mg PO TID PRN muscle spasm and 03/22/22 04/10/22 Rx headaches #90 tabs folic acid 1 mg tablet 1 mg PO DAILY #90 tabs 03/22/22 04/10/22 Rx pantoprazole 40 mg tablet,delayed 40 mg PO BID #180 tabs 03/22/22 04/10/22 Rx release clonazepam 0.5 mg tablet See Rx Instructions PO .COMPLEX 04/05/22 04/10/22 Rx anxiety #45 tabs escitalopram oxalate 10 mg tablet 10 mg PO DAILY #30 tabs 04/10/22 Rx pantoprazole 20 mg tablet,delayed 20 mg PO DAILY #20 tabs 04/10/22 Rx release (Protonix) promethazine 12.5 mg tablet 12.5 mg PO QID PRN allergy 04/10/22 Rx symptoms #10 tabs promethazine 25 mg tablet 25 - 50 mg PO Q6H PRN Nausea 04/10/22 04/10/22 History Patient History Medical History Acne Acute gallstone pancreatitis Acute on chronic pancreatitis Acute pancreatitis Alcohol abuse Anxiety and depression Back pain, chronic Chronic neck pain GERD (gastroesophageal reflux disease) Hiatal hernia Insomnia Kidney failure 2009 (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 Gala Willett History of lumpectomy of right breast BENIGN History of tooth extraction Family History Father Family history of diabetes mellitus Myocardial infarction Stroke Hypertension Grandfather (Maternal) Family history of diabetes mellitus Grandmother (Maternal) Family history of diabetes mellitus Hypertension Cancer Mother Hypothyroidism Grandfather (Paternal) Cancer Heart problem Grandmother (Paternal) Hypertension Denies family history of Ovarian cancer Prostate cancer Breast cancer Colorectal cancer Social History Smoking Status: Current every day smoker Tobacco Type: Cigarettes Cigarettes Per Day: 7; Second Hand Exposure: No; Do You Dip or Chew Tobacco: No; Tobacco Cessation Education Requested by Patient: No Hx Alcohol Use: Yes (swig of wine or vodka a day for the past month) Alcohol type: wine and hard liquor Hx Substance Use: Yes Last Used Substance: Days (ago) Last Used Substance Other:: [facility] PRESCRIBED Substance Use Type Other:: Smokes Kurt Preferred Language: [place] Communication Ability: Effective Visual Impairment: No Limitations Hearing Ability: Normal Skilled Nursing Facilities Professional Required: No Beliefs That Will Affect Care: None marital status: Single Current Living Situation: Parent Current Living Situation Comment: lives at home with mom current occupational status: employed How many Children do You have: 0 Other Information That Helps Us Care for You: No Feels Safe at Home: No Is there a partner from a previous relationship who is making you feel unsafe now?: No Any Concerns about Your Family Situation: Yes (Mom has had 2 falls in the passed few weeks) Would You Like to Speak to Someone About Your Situation: No Safety Concerns: Feels Safe At This Time Childhood Exposure to Second-Hand Smoke: No Dental Care, Regularly: Yes Physical Activity Frequency: Does not Exercise Seatbelt Use: always Sunscreen Use: Yes Do you think of yourself as: straight/heterosexual Assistive Devices: None Review of Systems Constitutional: no sweats, no malaise and no weight loss Eyes: no diplopia Ear, Nose, Mouth, Throat: no ear pain Respiratory: no cough, no change in sputum and no dyspnea Cardiovascular: no chest pain with activity Gastrointestinal: + nausea; no abdominal pain and no bloating Genitourinary: no urinary frequency Musculoskeletal: no radicular pain Psychiatric: + change in appetite; no hopelessness and no suicidal ideation Endocrine: no polydipsia Hematologic / Lymphatic: no coagulopathy Physical Exam Constitutional: WD/WN, vitals as above Eyes: PERRL, conjunctivae normal, anicteric sclerae ENMT: external ear and nose normal, oropharynx normal Respiratory: Auscultation: + diminished lung sounds; no crackles and no rales Cardiovascular: Rate/Rhythm: regular rate and regular rhythm Gastrointestinal (Abdomen): Percussion/Palpation: abdomen soft; abdomen nontender, no guarding and no hepatosplenomegaly Skin: no rashes, warm and dry Results & Data ([facility]) Vital Signs (Past 12 Hours) Vital Signs Temp Pulse Resp BP Pulse Ox O2 Del Method 04/14/22 07:08 36.7 C 87 16 120/82 94 Room Air Laboratory Results Laboratory Results - last 24 hr 04/10/22 04/13/22 04/13/22 12:38 06:54 10:34 WBC RBC Hgb Hct MCV MCH MCHC RDW Std Deviation RDW Coeff of Jessica Plt Count MPV Immature Gran % (Auto) Neut % (Auto) Lymph % (Auto) [place] % (Auto) Eos % (Auto) Baso % (Auto) Neut # (Auto) Lymph # (Auto) [place] # (Auto) Eos # (Auto) Baso # (Auto) Immature Gran # (Auto) Sodium Potassium Chloride Carbon Dioxide Anion Gap BUN Creatinine Est Cr Clr Drug Dosing Est GFR ( Amer) Est GFR (Non-Af Amer) BUN/Creatinine Ratio Glucose Calcium Magnesium Total Bilirubin AST ALT Alkaline Phosphatase Total Protein Albumin Globulin Albumin/Globulin Ratio Lipase 152 H U Marijuana THC Carboxy 265 H Drug Screen Comment SEE NOTE CMV IgM Ab CMV IgG Ab/TORCH EBV Capsid Ag IgG Ab Pending EBV Capsid Ag IgM Ab Pending EBV Nuclear Antigen Ab Pending EBV Antibody Interp Pending 04/13/22 04/14/22 04/14/22 10:34 05:44 05:44 WBC 6.49 RBC 3.63 L Hgb 11.6 L Hct 35.2 MCV 97.0 MCH 32.0 MCHC 33.0 RDW Std Deviation 55.9 H RDW Coeff of Jessica 15.6 H Plt Count 186 MPV 10.5 Immature Gran % (Auto) 0.5 Neut % (Auto) 57.7 Lymph % (Auto) 27.3 [place] % (Auto) 11.9 Eos % (Auto) 1.8 Baso % (Auto) 0.8 Neut # (Auto) 3.75 Lymph # (Auto) 1.77 [place] # (Auto) 0.77 Eos # (Auto) 0.12 Baso # (Auto) 0.05 Immature Gran # (Auto) 0.03 H Sodium 136 Potassium 3.2 L Chloride 104 Carbon Dioxide 26 Anion Gap 6 BUN 3 L Creatinine 0.48 L Est Cr Clr Drug Dosing 126.3 Est GFR ( Amer) 140.2 Est GFR (Non-Af Amer) 121.0 BUN/Creatinine Ratio 6.3 L Glucose 86 Calcium 7.8 L Magnesium 1.7 Total Bilirubin 0.5 AST 81 H ALT 47 Alkaline Phosphatase 177 H Total Protein 4.8 L Albumin 2.8 L Globulin 2.0 L Albumin/Globulin Ratio 1.4 Lipase 94 H U Marijuana THC Carboxy Drug Screen Comment CMV IgM Ab Pending CMV IgG Ab/TORCH Pending EBV Capsid Ag IgG Ab EBV Capsid Ag IgM Ab EBV Nuclear Antigen Ab EBV Antibody Interp Diagnostic Findings ABDOMEN AND PELVIS CT WITH IV CONTRAST CT DOSE: 278.40 mGy.cm HISTORY: hx pancreatitis/cyst, inc nausea/mid abdominal pain TECHNIQUE: Multiaxial CT images of the abdomen and pelvis were performed following the use of intravenous contrast. A dose lowering technique was utilized adhering to the principles of ALARA. COMPARISON STUDY: Abdomen and pelvis CT 04/10/2022. FINDINGS: A stable 3 mm nodule within the right middle lobe on image 21. This is likely benign given the long-term stability. Mild dependent changes seen within the lung bases. No pneumoperitoneum. No pneumatosis. No fractures within the visualized osseous structures. Hepatomegaly and hepatic steatosis again noted. Prior cholecystectomy. The main portal vein is patent. The spleen, adrenal glands, and kidneys are unremarkable. No hydronephrosis. No retroperitoneal lymp hadenopathy. Normal caliber abdominal aorta. Punctate calcification at the uncinate process of the pancreas is again noted. There is minimal peripancreatic edema at the head an uncinate process of the pancreas which has developed in the interval. This is consistent with mild acute on chronic pancreatitis. Stable 1.4 cm cystic focus at the uncinate process of the pancreas. Minimal enhancement within the common bile duct wall remains unchanged and is likely reactive. The common bile duct is normal in caliber. Gastric wall thickening is likely due to underdistention. No adjacent inflammatory change to suggest a gastritis. No pelvic lymphadenopathy or pelvic free fluid. Small ovarian cysts measuring up to 1 cm. An intrauterine device is in good position. The bladder is decompressed but appears unremarkable. No bowel wall thickening or obstruction. Normal appendix. Mild submucosal fat deposition within the colon is likely chronic. IMPRESSION: 1. Interval development of mild peripancreatic inflammatory change/edema at the head/uncinate process of the pancreas. This is consistent with a mild acute pancreatitis. 2. No bowel wall thickening or obstruction. 3. Normal appendix. 4. Hepatic steatosis. 5. Prior cholecystectomy.
[2022-04-14] MEDS: PANCREAZE (LIPASE 10,500U) CAP PO SCH ×3 (08:24→16:44)
[2022-04-14] MEDS: SUCRALFATE 1 GM/10 ML UDC PO SCH ×4 (08:24→21:17)
[2022-04-14] MEDS: FOLIC ACID 1 MG in SYRINGE 9.8 ML IV SCH (08:24)
[2022-04-14] MEDS: SPIRONOLACTONE 12.5 MG TAB PO SCH (08:24)
[2022-04-14] MEDS: clonazePAM 0.25 MG TAB PO SCH (08:25)
[2022-04-14] MEDS: APIXABAN 5 MG TABLET PO SCH ×2 (08:25→21:16)
[2022-04-14] MEDS: POTASSIUM CHLORIDE / WTR 10 MEQ/100 ML PLCT IV SCH ×2 (08:33→09:54)
[2022-04-14] MEDS ORDERED: clonazePAM 0.5 MG TAB PO STA (09:40)
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
[2022-04-14] MEDS: HYDROmorphone INJ 1 MG/ML SYRINGE IV PRN (12:06)
--- NOTE | 2022-04-14 14:01 | Hospitalist Progress Note ---
Date of Service April 14, 2022 Assessment & Plan (1) Pancreatitis: Plan: admitted w/ gastritis/nausea/vomiting. CT repeated on 04/13/22 for 9/10 epigastric pain. This showed mild acute pancreatitis. ? related to Vistaril. Patient continues to c/o severe abdominal pain this morning, however, she denied pain with palpation of the abdomen on exam today. She feels anxiety may be contributing to her pain. See below. Patient stated this AM that she had been alcohol use free since July 2021 after attending rehab, but notes that over the past month she has been drinking "sips" here and there to cope with her anxiety. Patient evaluated by GI this AM. Noted to have chronic pancreatitis, but not felt to be a factor this admission as he lipase was relatively normal. It was noted that the patient was without abdominal pain during her GI visit this morning as well. It was recommended that the patient f/u with her usual GI provider in [place] upon discharge. (2) Gastritis: Plan: Gastritis with nausea and vomiting that she has been unable to control at home x 1 month. Patient does have history of medical marijuana use for her anxiety -- consider cyclic vomiting (states MMJ use not changed and does not get vomiting from this however still considered). Capsaicin ineffective Patient currently NPO for concerns of pancreatitis. She continues to c/o nausea, but denies vomiting. Will advance to a clear liquid diet today. Continue to advance if doing well. Lipase improved to 94 this AM. Change Protonix IV BID, continue carafate for gastritis Phenergan and Zofran ordered for nausea. Pain control -- allergy to morphine, IV dilaudid available but limit to as needed 0.5-1mg as needed----> decreased to 0.5mg order only on 04/14/22-- will try to wean off Follows with [facility]. Will need outpatient follow-up. Supportive care/electrolyte replacement as needed. Monitor labs. Repeat AST, ALT, Lipase, and BMP in AM. (3) Anxiety: Plan: Previously on larger amounts of Klonopin 2mg BID, recently titrating down with PCP and currently on 0.25mg QAM, 0.5mg QPM. Previously trial/weaned off Cymbalta per PCP notes. Patient also stated trial Prozac, discontinued in February TSH wnl, B12/folate wnl given etoh hx Additional 0.5mg x 1 given AM 04/14 as the patient felt she was having a panic attack and worsening anxiety. Psychiatric consult placed. Patient seen by Dr. Pike 04/14/22. It was recommended she continue mirtazapine 7.5 mg nightly in addition to Klonopin 0.25 mg qAM and 0.5 mg HS. Goal is to continue ongoing g radual taper over time. Dr. Pike did recommend if patient needed additionally dosed with Klonopin, it only be for 0.25 mg as to not exceed her previous dosing of 2 mg/day dose. Patient was having improvement in anxiety with increased Vistaril while inpatient * increased to 75mg TID scheduled and can further titrate outpt f/u --however now with acute on chronic pancreatitis and could be from such? changed back to 50mg dosing and changed to prn however anxiety symptoms were improved on increased dose--COULD CONSIDER INCREASING DOSE SINCE GI has ruled out acute Pancreatitis? Also uses MMJ for anxiety symptoms at home. Did try topical capsaicin x1, burning, discontinued Psych liaison consulted -- outpt f/u [facility] for April 24 -- psych provider agree to continue current Klonopin dosing 0.25mg QAM, 0.5mg PM (4) Portal vein thrombosis: Plan: Hx portal vein thrombosis, continues on eliquis 5mg BID ?further imaging --> consulted GI and defer repeat imaging for such to them given remains on AC w/ eliquis Follow-up with GI at [place] upon discharge. (5) Chronic pancreatitis: Plan: Continue Creon No evidence on initial imaging and was only having nausea --> Severe pain 04/13 and repeat imaging consistent with such See above Monitor levels in AM. Follow-up with [place] [facility] upon discharge. (6) Cirrhosis of liver: Plan: Chronic elevations- AST 208 ALT 97, ALP 286 on admit which were increased from prior CTAP w/o acute pancreatitis/issue on admit TB wnl in pt w/ hx emery Hep panel negative, added CMV/EBV pending INR 1.1 LFTs improving and will monitor. Given spironolactone 12.5mg x 1 04/12, 04/13 and to help with BP/hypokalemia No ascites on imaging/exam Monitor BP Patient admits to drinking "sips" of alcohol over the past month due to increased anxiety. She otherwise reports she had been alcohol free since discharge from rehab on July 2021. (7) GERD (gastroesophageal reflux disease): Plan: As above, protonix BID and would continue with carafate at d/c (8) Chronic migraine: Plan: Continue sumatriptan prn but would be cautious w/ BP (9) Hypokalemia: Plan: Low, on supp at home. Oral supplement held as she is currently NPO. Potassium decreased to 3.2 this AM. 20 MEQ K rider ordered. Repeat in AM. Plan Tx for UTI (denied "symptoms" but n/v/frequency 04/11) urine cx staph species-- rocephin x 1 on 04/11, complete course with Keflex continued inpatient stay likely d/c next 24-48 hours if anxiety and pain improving. Admission and Anticipated Discharge Date Admission Date: April 13, 2022 Subjective 41-year-old female admitted with pancreatitis and gastritis. Patient complaining of persistent nausea and abdominal pain this morning. She denies vomiting. She is currently NPO. Patient seen by GI Dr. Perez this morning. Pancreatitis not felt to be related to her present admission as lipase was improved to 94 this morning, and she had no abdominal pain when visited by GI. Suspected that her nausea was medication or cannabis induced. Patient c/o severe anxiety to me this AM, and felt she was experiencing a panic attack. She has an order for Klonopin. She is scheduled to f/u with [facility] for psychiatry on 04/24/22. She is open to a psychiatry consult while inpatient. Review of Systems Constitutional: no fever and no chills Respiratory: no dyspnea Cardiovascular: no chest pain Gastrointestinal: + abdominal pain and + nausea; no vomiting Genitourinary: no dysuria Neurologic: no dizziness Psychiatric: + anxiety and + panic attacks Physical Exam Physical Exam: Temp Pulse Resp BP Pulse Ox O2 Del Method 36.7 C 87 16 120/82 94 04/14/22 07:08 04/14/22 07:08 04/14/22 07:08 04/14/22 07:08 04/14/22 07:08 04/14/22 07:08 Patient is afebrile. Vital signs stable. Constitutional: + overweight; no acute distress Eyes: + anicteric sclerae ENMT: Ears: no hearing impairment Neck: normal visual inspection Respiratory: normal respiratory effort, lungs clear to auscultation Cardiovascular: Rate/Rhythm: regular rate and regular rhythm Vessels: no JVD Extremities: no edema Gastrointestinal (Abdomen): Inspection/Auscultation: normal bowel sounds Percussion/Palpation: abdomen soft; abdomen nontender Musculoskeletal: Head/Neck/Chest: normocephalic and head atraumatic Psychiatric: Orientation: alert, oriented x 3 and cooperative Eye Contact: good eye contact Affect: + anxious affect Results & Data Results & Data ([facility]) Vital Signs (Past 12 Hours) Vital Signs Temp Pulse Resp BP Pulse Ox O2 Del Method 04/14/22 07:08 36.7 C 87 16 120/82 94 Room Air PG Care Time/CCT Total # of Minutes Spent Total Time Spent with Patient: Total time spent is greater than 50% in coordination of care (as documented) at patient's floor/unit and/or counseling patient: Coding Level of Care Code 51557 Subseq Hosp Care Lvl 2 Medical Decision Making Moderate Complexity Diagnoses Pancreatitis K85.90 Gastritis K29.70 Anxiety F41.9 Portal vein thrombosis I81 Chronic pancreatitis K86.1 Cirrhosis of liver K74.60 GERD (gastroesophageal reflux disease) K21.9 Chronic migraine G43.709 Hypokalemia E87.6
[2022-04-14] MEDS: PROMETHAZINE HCL 12.5 MG in SODIUM CHLORIDE 0.9% 50 ML IV PRN (16:20)
[2022-04-14] MEDS ORDERED: MIRTAZAPINE TAB 15 MG TAB PO SCH (21:00)
[2022-04-14] MEDS: clonazePAM 0.5 MG TAB PO SCH (21:16)
[2022-04-14] MEDS: MELATONIN 3 MG TAB PO PRN (21:18)
[2022-04-15] MEDS: cephALEXin 500 MG CAP PO SCH ×3 (00:02→12:55)
[2022-04-15] MEDS: hydrOXYzine HCl 25 MG TAB PO PRN ×3 (00:04→13:40)
[2022-04-15] MEDS: HYDROmorphone INJ 0.5 MG/0.5 ML SYR IV PRN ×3 (05:48→13:39)
[2022-04-15] MEDS: ONDANSETRON INJ 2 MG/ML 2 ML VIAL IV PRN (05:48)
[2022-04-15] MEDS: THIAMINE HCL 300 MG in SODIUM CHLORIDE 0.9% 50 ML IV SCH ×2 (06:06→13:38)
[2022-04-15] MEDS: SUCRALFATE 1 GM/10 ML UDC PO SCH ×2 (09:00→12:56)
[2022-04-15] MEDS: PANCREAZE (LIPASE 10,500U) CAP PO SCH ×2 (09:00→12:56)
[2022-04-15] MEDS: FOLIC ACID 1 MG in SYRINGE 9.8 ML IV SCH (09:00)
[2022-04-15] MEDS: clonazePAM 0.25 MG TAB PO SCH (09:00)
[2022-04-15] MEDS: SPIRONOLACTONE 12.5 MG TAB PO SCH (09:00)
[2022-04-15] MEDS: PANTOprazole 40 MG in SYRINGE 0 ML IV SCH (09:00)
[2022-04-15] MEDS: APIXABAN 5 MG TABLET PO SCH (09:00)
[2022-04-15 09:42] LABS: BUN Creatinine Ratio 3.3 (10-20); Est GFR (African American) 130.3 ml/min; Est GFR (Non-African American) 112.4 ml/min
[2022-04-15] MEDS: METOCLOPRAMIDE HCL INJ 5 MG/ML 2 ML VIAL IV PRN (10:29)
[2022-04-15 13:22] LABS: CMV IgG Antibody <0.60 U/mL; CMV IgM Antibody <30.00 AU/mL
--- NOTE | 2022-04-15 13:35 | Discharge Summary ---
Date of Service April 15, 2022 Admission HPI Per Admitting Provider 41 YOF with medcial history of: Acne, anxiety, benzodiazepine withdraw, back pain, gastroenteritis, chronic pancreatitis, pancreatic cyst. Patient comes to the EMD today for complaints of nausea with vomiting, abdominal pain that has been ongoing for the past 2 weeks. She was treated with multiple antinausea medications and CT scan of her abdomen and pelvis. Upon getting ready for discharge patient reportedly had some blood in her emisis. Her CT scan of her abdomen reveals gastritis. Overall the patient has had chronic nausea and vomitting secondary to her chronic pancreatitis- she follows with [facility], she has follow up with them in 6 months. She has not reached out to them since her onset of her symptoms. The patient endorses that she has only draink 1-2 sips of alcohol to help calm her nerves and stomach down over the past couple of days. Endorses that she had Vodka and Pedialyte. She endorses continuing to smoke, as well as medical marijuana. She states that she has been referred to psych at [facility], but has been "playing phone tag" and has yet to get an appointment. She endorses 15 pound weight loss over the past 3 weeks. She last tried to eat Friday and has tried gingerale and coke as her fluids. Patient has multiple agents exacerbating her previous symptoms. Will observe overnight. Her lipase is 102 and is likely reflective of her hydration status. Change her Protonix to BID IV 40mg with dose now, initiate Carfate, will tier her antinausea medications, would greatly benefit from follow up of her GI and evaluation by psychiatry as she could benefit with better coping strategies. COVID test: Pending on admission Principal Diagnosis Pancreatitis Gastritis Anxiety Discharge Exam The patient appeared stable Vital signs as documented. Lungs are clear to auscultation and appear unlabored Cardiac exam, Rhythm is regular.. No murmurs, rubs or gallops. Abdominal exam reveals normal bowel sounds, soft non tender, no masses Extremities are nonedematous and both pedal pulses are normal. Neurologic exam is alert and oriented, no focal loss of strength or sensation Skin is without bruises or rashes Psychologically is with anxiety and concerns for substance abuse has psychiatry follow up scheuled Discharge Data Allergies Allergy/AdvReac Type Severity Reaction Status Date / Time buspirone [From BuSpar] Allergy Severe Unconscious, Verified 04/10/22 16:46 seizures quetiapine [From Seroquel] Allergy Severe Unconscious, Verified 04/10/22 16:46 seizures citalopram [From Celexa] AdvReac Intermediate Vomiting Verified 04/10/22 16:46 fluoxetine AdvReac Intermediate Migraine Verified 04/10/22 16:46 morphine AdvReac Intermediate "MAKES ME Verified 04/10/22 16:46 SICK(VOMITING)" vilazodone [From Viibryd] AdvReac Vomiting Verified 04/10/22 16:46 Consultations 04/10/22 16:27 ED Decision to Admit Stat 04/13/22 10:55 Consult Gastroenterology Routine 04/14/22 09:45 Consult Psychiatry Routine Ordered Studies 04/10/22 14:13 CT abd pelvis IV con only Stat 04/13/22 09:33 CT Abd and Pelvis [CT abd pelvis IV con only] Urgent Hospital Course (1) Pancreatitis: admitted w/ gastritis/nausea/vomiting, no evidence on initial imaging however repeated for 9/10 epigastric pain no evidence of chemical pancreatitis seen on lab work on the day of discharge (2) Gastritis: Does have history of medical marijuana use for her anxiety -- consider cyclic vomiting (states MMJ use not changed and does not get vomiting from this however still considered) Capsacin ineffective Initial CTAP on admit with evidence for gastritis, no evidence for acute pancre atitis treating symptomatically remains on PPI Follows with [facility] GI patient s/p cholecystectomy.maybe functional abdominal pain (3) Anxiety: Previously on larger amounts of Klonopin 2mg BID, recently titrating down with PCP and currently on 0.25mg QAM, 0.5mg QPM. Previously trial/weaned off Cymbalta per PCP notes. Patient also stated trial Prozac, discontinued in February TSH wnl, B12/folate wnl given etoh hx pt had poor response to vistaril, in the end will re increase clonazepam for symptom control to have patient out of hospital and hopefully [facility] will take the hand off and help decide if Psych liaison consulted -- outpt f/u [facility] for April 24 -- psych provider agree to continue current Klonopin dosing 0.25mg QAM, 0.5mg PM (4) Portal vein thrombosis: Hx portal vein thrombosis, continues on eliquis 5mg BID ?further imaging --> consulted GI and defer repeat imaging for such to them given remains on AC w/ eliquis (5) Chronic pancreatitis: Continue Creon No evidence on initial imaging and was only having nausea --> NOW w/ pain 04/13 and repeat imaging consistent with such See above Monitor levels in AM (6) Cirrhosis of liver: Chronic elevations- AST 208 ALT 97, ALP 286 on admit which were increased from prior CTAP w/o acute pancreatitis/issue on admit TB wnl in pt w/ hx emery Hep panel negative, added CMV/EBV INR 1.1 LFTs improving and will monitor Given spironolactone 12.5mg (7) GERD (gastroesophageal reflux disease): As above, protonix BID (8) Chronic migraine: Continue sumatriptan prn but would be cautious w/ BP (9) Hypokalemia: replete Tx for UTI (denied "symptoms" butfrequency 04/11) urine cx staph species-- rocephin x 1 on 04/11, complete course with Keflex Total Time Total Time Spent Total Time Spent (In Minutes): It required greater than 30 minutes to prepare this patient for discharge Discharge Plan Discharge Items Patient Disposition: Home - Self-Care Reason For Visit: NAUSEA,VOMITING,HEMATEMISIS? Discharge Diagnosis: pancreatitis anxiety chronic portal vein thrombosis Condition on Discharge: Good Activity: Resume your previous activity Non-emergency contact: Primary Care Provider Call non-emergency contact if: your symptoms worsen and you have a fever Follow-up/Referrals: Diane Sorenson MD [Primary Care Provider] - 04/18/22 9:20 am Diet: Low Fat [place] Attending Provider Instructions: please take your medicines carefully, follow up with Dr Pace soon after discharge [facility] [employer] Provider Instructions: Psychiatry: [facility] follow-up appointment on April 24. -Consider utilizing the mobile [email or web address] to track and reduce the frequency and intensity of your panic attacks using a cognitive behavioral therapy approach. Pending Studies at Discharge: No Stand-Alone Forms: My Simply [employer], Smoking Cessation Medications and DC Order Prescriptions: New promethazine 12.5 mg tablet 12.5 mg PO QID PRN (Reason: allergy symptoms) Qty: 10 0RF Rx Instructions: 3 doses during day; last dose no later than 4 hr before bedtime pantoprazole [Protonix] 20 mg tablet,delayed release (DR/EC) 20 mg PO DAILY Qty: 20 0RF cephalexin 500 mg Capsule 500 mg PO Q6 Qty: 12 0RF spironolactone 25 mg Tablet 12.5 mg PO DAILY Qty: 30 0RF mirtazapine 15 mg Tablet 7.5 mg PO HS Qty: 30 2RF clonazepam 1 mg tablet 1 mg PO BID Qty: 30 0RF Continued Creon 36,000-114,000- 180,000 unit capsule,delayed release(DR/EC) 3 cap PO TID 90 Days Qty: 810 3RF clindamycin phosphate 1 % gel See Rx Instructions .ROUTE .COMPLEX Qty: 30 0RF Dose Instruction: APPLY TOPICALLY DAILY FOR ACNE Rx Instructions: APPLY TOPICALLY DAILY FOR ACNE hydroxyzine HCl 50 mg tablet 50 mg PO Q6H PRN (Reason: anxiety) Qty: 60 3RF sumatriptan succinate [Imitrex] 100 mg tablet 100 mg PO .COMPLEX PRN (Reason: Migraine Headache) Qty: 16 4RF Rx Instructions: TAKE 1 TAB BY MOUTH NEEDED xMIGRAINE HEADACHE, may repeat 100mg x1 2 hrs after 1st dose. Max 200mg/24hr ondansetron 4 mg tablet,disintegrating 4 mg PO Q6H PRN (Reason: Nausea) Qty: 30 0RF folic acid 1 mg tablet 1 mg PO DAILY Qty: 90 1RF baclofen 20 mg tablet 20 mg PO TID PRN (Reason: muscle spasm and headaches) Qty: 90 0RF pantoprazole 40 mg tablet,delayed release (DR/EC) 40 mg PO BID Qty: 180 1RF thiamine HCl (vitamin B1) 100 mg tablet 200 mg PO DAILY melatonin 10 mg capsule 10 mg PO HS PRN (Reason: Insomnia) multivitamin Tablet 1 tab PO DAILY B12 Active 1,000 mcg Tablet,Chewable 1,000 mcg PO PM Eliquis 5 mg tablet 5 mg PO Q12 potassium chloride [Klor-Con M20] 20 mEq tablet,ER particles/crystals 20 meq PO DAILY Qty: 1 0RF Discontinued clonazepam 0.5 mg tablet See Rx Instructions PO .COMPLEX Qty: 45 0RF Rx Instructions: PO; 0.25mg in am and 0.5mg in pm PO; escitalopram oxalate 10 mg tablet 10 mg PO DAILY Qty: 30 5RF magnesium 200 mg tablet 200 mg PO DAILY cannabidiol 100 mg/mL Solution 1 mg PO HS PRN (Reason: Pain) Label Comments: Patient has card promethazine 25 mg tablet 25 - 50 mg PO Q6H PRN (Reason: Nausea) Discharge Orders: Discharge Order (Routine); Ordered 04/15/22 Ordered By: Damian Del Castillo Admission Data Admit Date/Time: 04/13/22 15:11 Attending Provider: Damian Del Castillo Admit Provider: Eliot Soliman Primary Care Provider: Diane Sorenson Other Providers: Eliot Soliman ; Lisset Perez ; Pam Pike ; Laura Grant ; Yi Singh Other Interventions: Discharge Summary Assessment (RN) Last Done: 04/15/22 15:15 Coding Level of Care Code D/C DAY MANAGEMENT >30 MINS Diagnoses Pancreatitis K85.90 Gastritis K29.70 Anxiety F41.9 Portal vein thrombosis I81 Chronic pancreatitis K86.1 Cirrhosis of liver K74.60 GERD (gastroesophageal reflux disease) K21.9 Chronic migraine G43.709 Hypokalemia E87.6
[2022-04-15 13:42] LABS: EBV Nuclear Ag Antibody <18.00 U/mL
[2022-04-15] MEDS ORDERED: clonazePAM 1 MG TAB PO SCH (21:00)
== END 2022-04-15 15:29 | disposition home or self-care (01) | DRG 438 ==
LOC: ED 12:10 → 3W 12:10 → SUATTDRO 17:18 → 3W 21:04

== ENCOUNTER 2022-04-18 03:41 | Inpatient (IN) ==
[2022-04-18 04:28] LABS: Appearance Urine Clear (Clear); Bilirubin Urine Negative (Negative); Blood Urine Negative (Negative); Color Urine Yellow; Glucose Urine UA Negative (Negative); Ketones Urine 2+ (Negative); Leukocyte Esterase Urine Negative (Negative); Nitrite Urine Negative (Negative); Protein Urine Negative (Negative); Urobilinogen Urine Negative (Negative); pH Urine >= 9.0 (4.5-7.5)
[2022-04-18 04:39] LABS: Basophils # (auto) 0.04 K/uL (0-0.2); Basophils % (auto) 0.6 %; Eosinophils # (auto) 0.09 K/uL (0-0.50); Eosinophils % (auto) 1.4 %; Hematocrit (blood only) 35.9 % (34.1-44.9); Immature Granulocytes # (auto) 0.03 K/uL (0.00-0.02); Immature Granulocytes % (auto) 0.5 %; Lymphocytes # (auto) 1.78 K/uL (1.2-3.4); Lymphocytes % (auto) 27.9 %; Mean Corpuscular Hemoglobin 32.4 pg (25.0-34.0); Mean Corpuscular Hgb Conc 33.4 g/dL (32.0-36.0); Mean Platelet Volume 9.8 fL (9.4-12.3); Monocytes # (auto) 1.06 K/uL (0.24-0.82); Monocytes % (auto) 16.6 %; Neutrophils # (auto) 3.39 K/uL (1.4-6.5); Platelet Count 314 K/uL (130-400); RDW Coefficient of Variation 15.8 % (11.5-14.5); RDW Standard Deviation 56.3 fL (36.4-46.3); White Blood Count 6.39 K/ul (4.8-10.8)
[2022-04-18 04:59] LABS: Albumin Globulin Ratio 1.3 (0.9-2); Albumin Level 3.1 gm/dl (3.4-5.0); BUN Creatinine Ratio 13.6 (10-20); Bilirubin,Total 0.5 mg/dl (0.2-1.0); Calcium 8.2 mg/dl (8.5-10.1); Creatinine Clr Calc Pharmacy 137.8 ml/min; Est GFR (African American) 144.3 ml/min; Est GFR (Non-African American) 124.5 ml/min; Globulin 2.4 gm/dl (2.5-4.0); Potassium 3.5 mmol/L (3.5-5.1); Total Protein 5.5 gm/dl (6.0-8.3)
[2022-04-18 05:11] LABS: Pregnancy Test, Serum Negative (Negative)
[2022-04-18] MEDS ORDERED: PROMETHAZINE 25 MG/51 ML BAG IV STA (06:50)
[2022-04-18] MEDS ORDERED: FAMOTIDINE 20MG IV PUSH 20 MG/5 ML SYR IV STA (06:50)
[2022-04-18] MEDS ORDERED: SODIUM CHLORIDE 0.9% 1000ML 1,000 ML IV ONE (06:50)
[2022-04-18] MEDS ORDERED: KETOROLAC 30 MG/ML VIAL IV STA (06:50)
--- NOTE | 2022-04-18 06:56 | Emergency Department Note ---
History of Present Illness General Chief complaint: Pain (Generalized) Stated complaint: HARD TO BREATHE, PAIN Time Seen by Provider: 04/18/22 06:35 History of Present Illness Maximum Pain Intensity: 10 41-year-old female presents to the ED with a chief complaint of ongoing epigastric pain, nausea and vomiting. The patient states that she was admitted last week for the same and discharged on Friday. The patient reports some additional nausea and vomiting starting on Friday, 2 days ago. She reports epigastric abdominal pain that radiates into her back. Previous history of alcoholism. Previous history of anxiety. She has been taking her home medications without much improvement. She states that the only thing that helped her when she was here was IV Dilaudid and IV Phenergan. She states that she was unhappy with the care that she received here. Home Medications Medication Instructions Recorded Confirmed Type multivitamin 1 tab PO DAILY 03/18/19 04/10/22 History mecobalamin (vitamin B12) 1,000 1,000 mcg PO PM 11/10/19 04/10/22 History mcg chewable tablet (B12 Active) apixaban 5 mg tablet (Eliquis) 5 mg PO Q12 04/12/21 04/10/22 History potassium chloride 20 mEq 20 meq PO DAILY #1 tab 04/14/21 04/10/22 Rx tablet,extended release(part/cryst) (Klor-Con M) thiamine HCl (vitamin B1) 100 mg 200 mg PO DAILY 04/17/21 03/28/22 History tablet [id number] 3 cap PO TID Abdominal Discomfort 06/05/21 04/10/22 Rx 36,000-114,000-180,000 unit 90 days #810 caps capsule,delay rel (Creon) melatonin 10 mg capsule 10 mg PO HS PRN Insomnia 09/04/21 04/10/22 History clindamycin phosphate 1 % topical See Rx Instructions .Route 10/02/21 04/10/22 Rx gel .COMPLEX #30 grams hydroxyzine HCl 50 mg tablet 50 mg PO Q6H PRN anxiety #60 tabs 12/18/21 04/10/22 Rx sumatriptan succinate 100 mg 100 mg PO .COMPLEX PRN Migraine 12/18/21 04/10/22 Rx tablet (Imitrex) Headache #16 tabs ondansetron 4 mg disintegrating 4 mg PO Q6H PRN Nausea #30 tabs 02/15/22 04/10/22 Rx tablet folic acid 1 mg tablet 1 mg PO DAILY #90 tabs 03/22/22 04/10/22 Rx pantoprazole 40 mg tablet,delayed 40 mg PO BID #180 tabs 03/22/22 04/10/22 Rx release pantoprazole 20 mg tablet,delayed 20 mg PO DAILY #20 tabs 04/10/22 Rx release (Protonix) promethazine 12.5 mg tablet 12.5 mg PO QID PRN allergy 04/10/22 Rx symptoms #10 tabs cephalexin 500 mg capsule 500 mg PO Q6 #12 caps 04/15/22 Rx clonazepam 1 mg tablet 1 mg PO BID #30 tabs 04/15/22 Rx mirtazapine 15 mg tablet 7.5 mg PO HS #30 tabs 04/15/22 Rx spironolactone 25 mg tablet 12.5 mg PO DAILY #30 tabs 04/15/22 Rx baclofen 20 mg tablet See Rx Instructions .Route 04/16/22 Rx .COMPLEX #90 tabs Allergies Allergy/AdvReac Type Severity Reaction Status Date / Time buspirone [From BuSpar] Allergy Severe Unconscious, Verified 04/10/22 16:46 seizures quetiapine [From Seroquel] Allergy Severe Unconscious, Verified 04/10/22 16:46 seizures citalopram [From Celexa] AdvReac Intermediate Vomiting Verified 04/10/22 16:46 fluoxetine AdvReac Intermediate Migraine Verified 04/10/22 16:46 morphine AdvReac Intermediate "MAKES ME Verified 04/10/22 16:46 SICK(VOMITING)" vilazodone [From Viibryd] AdvReac Vomiting Verified 04/10/22 16:46 Past Med/Surg History Medical History Acne Acute gallstone pancreatitis Acute on chronic pancreatitis Acute pancreatitis Alcohol abuse Anxiety and depression Back pain, chronic Chronic neck pain GERD (gastroesophageal reflux disease) Hiatal hernia Insomnia Kidney failure 2009 (RESOLVED/SAW A DIRECT[employer] OF [employer]NAG[employer]) Liver enzyme elevation Marijuana use Migraines Nausea Pancreatic pseudocyst Pancreatitis alcoholic Pancreatitis, alcoholic, acute Panic attacks Peptic ulcer disease 2 YEARS AGO DX PTSD (post-traumatic stress disorder) Sleeping difficulty Toe fracture, left Surgical History "LAST APRIL" History of breast biopsy History of cholecystectomy History of esophagogastroduodenoscopy (EGD) History of esophagogastroduodenoscopy (EGD) 07/02/19- Dr. Gala Willett History of lumpectomy of right breast BENIGN History of tooth extraction Family History Father Family history of diabetes mellitus Myocardial infarction Stroke Hypertension Grandfather (Maternal) Family history of diabetes mellitus Grandmother (Maternal) Family history of diabetes mellitus Hypertension Cancer Mother Hypothyroidism Grandfather (Paternal) Cancer Heart problem Grandmother (Paternal) Hypertension Denies family history of Ovarian cancer Prostate cancer Breast cancer Colorectal cancer Social History Smoking Status: Current every day smoker Tobacco Type: Cigarettes Cigarettes Per Day: 7; Second Hand Exposure: No; Hx Alcohol Use: Yes (swig of wine or vodka a day for the past month) Alcohol type: wine and hard liquor Hx Substance Use: Yes Last Used Substance: Days (ago) Last Used Substance O ther:: MEDICAL MARIJAUNA PRESCRIBED Substance Use Type Other:: Smokes Marijuanna Preferred Language: Irish Communication Ability: Effective Visual Impairment: No Limitations Hearing Ability: Normal Refrigeration Operator Required: No Beliefs That Will Affect Care: None marital status: Single Current Living Situation: Parent Current Living Situation Comment: lives at home with mom current occupational status: employed How many Children do You have: 0 Feels Safe at Home: Yes Childhood Exposure to Second-Hand Smoke: No Dental Care, Regularly: Yes Physical Activity Frequency: Does not Exercise Seatbelt Use: always Sunscreen Use: Yes Do you think of yourself as: straight/heterosexual Assistive Devices: None Review of Systems A total of 10 systems reviewed and were otherwise negative Physical Exam Vital Signs Vital Signs - 24 hr 04/18/22 03:44 04/18/22 06:39 Temperature 36.6 C Temperature Source Temporal Artery Scan Pulse Rate 107 H Pulse Rate [Finger] 87 Respiratory Rate 18 20 Respiratory Effort / Characteristics Non-Labored Spontaneous Non-Labored Spontaneous Respiratory Depth Normal Respiratory Pattern Regular Blood Pressure 144/97 H Blood Pressure [Right Arm] 144/95 H Blood Pressure Mean 112 Blood Pressure Mean [Right Arm] 111 Pulse Oximetry 97 96 Oxygen Delivery Method Room Air Room Air Sepsis Recent Fever Within 48 Hours No Sepsis New/Unexplained Change in Mental Status N/A Sepsis Action Taken by Nursing No Action Required CONSTITUTIONAL/VITAL SIGNS: Reviewed / noted above. GENERAL: Non-toxic in appearance. INTEGUMENTARY: Warm, dry, and [place]. HEAD: Normocephalic. EYES: without scleral icterus or trauma. ENT/OROPHARYNX: clear and moist. LYMPHADENOPATHY/NECK: Is supple without lymphadenopathy or meningismus. RESPIRATORY: Clear to auscultation bilaterally. No increased work of breathing. CARDIOVASCULAR: Regular rate and rhythm. GI/ABDOMEN: Soft and mildly tender diffusely. No organomegaly or pulsatile mass. EXTREMITIES: Warm and well perfused. BACK: No CVA tenderness. NEUROLOGICAL: Intact without focal deficits. PSYCHIATRIC: normal affect. MUSCULOSKELETAL: Normally developed with good muscle tone. TRIAGE NURSING DOCUMENTATION REVIEWED. Course Administered Medications Discontinued Medications Promethazine HCl (Phenergan) 25 mg in 51 mls @ 204 mls/hr IV NOW STA Stop: 04/18/22 07:04 Last Infusion: 04/18/22 07:25 Dose: 0 mls/hr Documented By: Admin: 04/18/22 07:09 Dose: 204 mls/hr Documented By: LIDIA Famotidine (Pepcid 20mg Iv Push) 20 mg in 5 mls @ 2.5 mls/min IV NOW STA Stop: 04/18/22 06:51 Last Admin: 04/18/22 07:08 Dose: 2.5 mls/min Documented By: LIDIA Sodium Chloride (Nss 1000ml) 1,000 mls @ 999 mls/hr IV .Q1H1M ONE Stop: 04/18/22 07:50 Last Infusion: 04/18/22 08:39 Dose: 0 mls/hr Documented By: Admin: 04/18/22 07:08 Dose: 999 mls/hr Documented By: LIDIA Ketorolac Tromethamine (Ketorolac 30 Mg/Ml Vial) 30 mg IV NOW STA Stop: 04/18/22 06:51 Last Admin: 04/18/22 07:08 Dose: 30 mg Documented By: LIDIA Medical Decision Making Differential Diagnosis Differential considered: pancreatitis, hepatitis, acute cholecystitis, AAA, UTI, pyelonephritis, kidney stones, appendicitis, diverticulitis, shingles, bowel obstruction, mesenteric ischemia, intussusception,hernia, ovarian torsion, ruptured ovarian cyst,ectopic , . Medical Records Attestation: I reviewed the patient's medical records. Home Medications Current Medication List: was personally reviewed by me Laboratory Data Attestation: I reviewed the patient's lab results. Result diagrams: 04/18/22 04:15 04/18/22 04:15 Lab Results 04/18/22 04/18/22 04/18/22 Range/Units 04:15 04:15 04:15 WBC 6.39 (4.8-10.8) K/ul RBC 3.70 L (3.93-5.22) M/uL Hgb 12.0 (12.0-16.0) g/dl Hct 35.9 (34.1-44.9) % MCV 97.0 (80.0-100.0) fL MCH 32.4 (25.0-34.0) pg MCHC 33.4 (32.0-36.0) g/dL RDW Std Deviation 56.3 H (36.4-46.3) fL RDW Coeff of Jessica 15.8 H (11.5-14.5) % Plt Count 314 (130-400) K/uL MPV 9.8 (9.4-12.3) fL Immature Gran % (Auto) 0.5 % Neut % (Auto) 53.0 % Lymph % (Auto) 27.9 % [place] % (Auto) 16.6 % Eos % (Auto) 1.4 % Baso % (Auto) 0.6 % Neut # (Auto) 3.39 (1.4-6.5) K/uL Lymph # (Auto) 1.78 (1.2-3.4) K/uL [place] # (Auto) 1.06 H (0.24-0.82) K/uL Eos # (Auto) 0.09 (0-0.50) K/uL Baso # (Auto) 0.04 (0-0.2) K/uL Immature Gran # (Auto) 0.03 H (0.00-0.02) K/uL Sodium 138 (136-145) mmol/L Potassium 3.5 (3.5-5.1) mmol/L Chloride 104 (98-107) mmol/L Carbon Dioxide 27 (21-32) mmol/L Anion Gap 7 (3-11) BUN 6 (6-23) mg/dl Creatinine 0.44 L (0.6-1.2) mg/dl Est Cr Clr Drug Dosing 137.8 ml/min Est GFR ( Amer) 144.3 ml/min Est GFR (Non-Af Amer) 124.5 ml/min BUN/Creatinine Ratio 13.6 (10-20) Glucose 91 (70-99(Fasting)) mg/dl Calcium 8.2 L (8.5-10.1) mg/dl Total Bilirubin 0.5 (0.2-1.0) mg/dl AST 34 (13-39) U/L ALT 34 (7-52) U/L Alkaline Phosphatase 144 H (34-104) U/L Total Protein 5.5 L (6.0-8.3) gm/dl Albumin 3.1 L (3.4-5.0) gm/dl Globulin 2.4 L (2.5-4.0) gm/dl Albumin/Globulin Ratio 1.3 (0.9-2) Lipase 91 H (11-82) U/L HCG, Qual Negative (Negative) Urine Color Urine Appearance (Clear) Urine pH (4.5-7.5) Ur Specific [place] (1.000-1.030) Urine Protein (Negative) Urine Glucose (UA) (Negative) Urine Ketones (Negative) Urine Blood (Negative) Urine Nitrite (Negative) Urine Bilirubin (Negative) Urine Urobilinogen (Negative) Ur Leukocyte Esterase (Negative) 04/18/22 Range/Units 04:15 WBC (4.8-10.8) K/ul RBC (3.93-5.22) M/uL Hgb (12.0-16.0) g/dl Hct (34.1-44.9) % MCV (80.0-100.0) fL MCH (25.0-34.0) pg MCHC (32.0-36.0) g/dL RDW Std Deviation (36.4-46.3) fL RDW Coeff of Jessica (11.5-14.5) % Plt Count (130-400) K/uL MPV (9.4-12.3) fL Immature Gran % (Auto) % Neut % (Auto) % Lymph % (Auto) % [place] % (Auto) % Eos % (Auto) % Baso % (Auto) % Neut # (Auto) (1.4-6.5) K/uL Lymph # (Auto) (1.2-3.4) K/uL [place] # (Auto) (0.24-0.82) K/uL Eos # (Auto) (0-0.50) K/uL Baso # (Auto) (0-0.2) K/uL Immature Gran # (Auto) (0.00-0.02) K/uL Sodium (136-145) mmol/L Potassium (3.5-5.1) mmol/L Chloride (98-107) mmol/L Carbon Dioxide (21-32) mmol/L Anion Gap (3-11) BUN (6-23) mg/dl Creatinine (0.6-1.2) mg/dl Est Cr Clr Drug Dosing ml/min Est GFR ( Amer) ml/min Est GFR (Non-Af Amer) ml/min BUN/Creatinine Ratio (10-20) Glucose (70-99(Fasting)) mg/dl Calcium (8.5-10.1) mg/dl Total Bilirubin (0.2-1.0) mg/dl AST (13-39) U/L ALT (7-52) U/L Alkaline Phosphatase (34-104) U/L Total Protein (6.0-8.3) gm/dl Albumin (3.4-5.0) gm/dl Globulin (2.5-4.0) gm/dl Albumin/Globulin Ratio (0.9-2) Lipase (11-82) U/L HCG, Qual (Negative) Urine Color Yellow Urine Appearance Clear (Clear) Urine pH >= 9.0 H (4.5-7.5) Ur Specific [place] 1.020 (1.000-1.030) Urine Protein Negative (Negative) Urine Glucose (UA) Negative (Negative) Urine Ketones 2+ H (Negative) Urine Blood Negative (Negative) Urine Nitrite Negative (Negative) Urine Bilirubin Negative (Negative) Urine Urobilinogen Negative (Negative) Ur Leukocyte Esterase Negative (Negative) Imaging Data Radiologist's Impression: Chest X-Ray 04/18/22 04:54 XR chest 1V portable CLINICAL HISTORY: sob TECHNIQUE: Single frontal radiograph of the chest was obtained. Comparison: Comparison is made to chest radiograph 08/06/2021 FINDINGS: No lines and tubes are seen. The cardiomediastinal silhouette is normal. The lungs are clear. No evidence of pleural effusion or pneumothorax. IMPRESSION: No acute chest disease. ACT 112: Negative or not required by law. Electronically signed by: Armand Cohen M.D. 04/18/2022 8:05 AM Abdomen/Pelvis CT 04/18/22 06:[address] WITHOUT CONTRAST CT DOSE: 292.47 mGy.cm HISTORY: Epigastric abdominal pain. TECHNIQUE: Multiaxial CT images of the abdomen and pelvis were performed without contrast. A dose lowering technique was utilized adhering to the principles of ALARA. COMPARISON STUDY: Abdomen and pelvis CT 04/13/2022. FINDINGS: Stable 3 mm nodule within the right middle lobe on image 62. Interval development of a few small patchy groundglass airspace opacities within the lung bases. This may represent a viral pneumonitis. No pneumoperitoneum. No pneum atosis. No fractures within the visualized osseous structures. Severe hepatic steatosis. Cholecystectomy. The spleen and adrenal glands unremarkable. There are few punctate bilateral renal calculi. No ureteral calculi. No hydronephrosis. Mild peripancreatic inflammatory change/edema at the pancreatic head/uncinate process consistent with an acute pancreatitis. This remains unchanged. There are punctate calcifications at the uncinate process of the pancreas which are also unchanged. No retroperitoneal lymphadenopathy. Normal caliber abdominal aorta. The bladder is unremarkable. An intrauterine device appears in good position. Suboptimal evaluation for bowel pathology due to the lack of intravenous and oral contrast. However, there is no definite bowel wall thickening or obstruction. Normal appendix. Moderate well-formed stool within the colon. IMPRESSION: 1. No significant change in the mild peripancreatic inflammatory change/edema co nsistent with a mild acute pancreatitis. 2. Bilateral nephrolithiasis. No ureteral stones. No hydronephrosis. 3. Severe hepatic steatosis. 4. A few small patchy groundglass airspace opacities within the lung bases which are new from the prior study. This may represent a viral pneumonitis. ACT 112: Negative or not required by law. Electronically signed by: Bunny Doherty M.D. 04/18/2022 7:47 AM MDM Narrative 41-year-old female presents to the ED with a chief complaint of epigastric abdominal pain. The patient reports associated nausea and vomiting. She was discharged 2 days ago with the same. Diagnosis was gastritis. She did have a transient elevation of her lipase while here which she reports was related to Vistaril. The patient's exam today shows some mild diffuse abdominal tenderness. She reports severe pain although her appearance does not suggest the same. The patient CBC and chemistry panel was normal. A lipase was 91. hCG is negative. Urine shows 2+ ketones. Chest x-ray was negative for acute disease. CT scan shows no significant change from her previous CT scan from 5 days ago. Possibly some mild peripancreatic inflammatory changes. The patient was treated with IV fluids, IV Pepcid, IV Toradol and IV Compazine. She appears to be more comfortable but states that she is unable to go home because she feels so ill. I did speak with the hospitalist about the patient. They will bring her in for observation. Impression & Plan Abdominal pain, epigastric Discharge Plan Visit Data Chief Complaint: Pain (Generalized) Stated Complaint: HARD TO BREATHE, PAIN ED Provider: Leonel Mackenzie Discharge Problem: Abdominal pain, epigastric Patient Disposition: Being Evaluated by Hospitalist Forms Stand Alone Forms: My [facility] [employer] Prescriptions Prescriptions: No Action Creon 36,000-114,000- 180,000 unit capsule,delayed release(DR/EC) 3 cap PO TID 90 Days Qty: 810 3RF clindamycin phosphate 1 % gel See Rx Instructions .ROUTE .COMPLEX Qty: 30 0RF Dose Instruction: APPLY TOPICALLY DAILY FOR ACNE Rx Instructions: APPLY TOPICALLY DAILY FOR ACNE hydroxyzine HCl 50 mg tablet 50 mg PO Q6H PRN (Reason: anxiety) Qty: 60 3RF sumatriptan succinate [Imitrex] 100 mg tablet 100 mg PO .COMPLEX PRN (Reason: Migraine Headache) Qty: 16 4RF Rx Instructions: TAKE 1 TAB BY MOUTH NEEDED xMIGRAINE HEADACHE, may repeat 100mg x1 2 hrs after 1st dose. Max 200mg/24hr ondansetron 4 mg tablet,disintegrating 4 mg PO Q6H PRN (Reason: Nausea) Qty: 30 0RF folic acid 1 mg tablet 1 mg PO DAILY Qty: 90 1RF pantoprazole 40 mg tablet,delayed release (DR/EC) 40 mg PO BID Qty: 180 1RF baclofen 20 mg tablet See Rx Instructions .ROUTE .COMPLEX Qty: 90 0RF Dose Instruction: TAKE 1 TABLET BY MOUTH 3 TIMES A DAY NEEDED FOR MUSCLE SPASM Rx Instructions: TAKE 1 TABLET BY MOUTH 3 TIMES A DAY NEEDED FOR MUSCLE SPASM thiamine HCl (vitamin B1) 100 mg tablet 200 mg PO DAILY melatonin 10 mg capsule 10 mg PO HS PRN (Reason: Insomnia) multivitamin Tablet 1 tab PO DAILY B12 Active 1,000 mcg Tablet,Chewable 1,000 mcg PO PM Eliquis 5 mg tablet 5 mg PO Q12 potassium chloride [Klor-Con M20] 20 mEq tablet,ER particles/crystals 20 meq PO DAILY Qty: 1 0RF promethazine 12.5 mg tablet 12.5 mg PO QID PRN (Reason: allergy symptoms) Qty: 10 0RF Rx Instructions: 3 doses during day; last dose no later than 4 hr before bedtime pantoprazole [Protonix] 20 mg tablet,delayed release (DR/EC) 20 mg PO DAILY Qty: 20 0RF cephalexin 500 mg Capsule 500 mg PO Q6 Qty: 12 0RF spironolactone 25 mg Tablet 12.5 mg PO DAILY Qty: 30 0RF mirtazapine 15 mg Tablet 7.5 mg PO HS Qty: 30 2RF clonazepam 1 mg tablet 1 mg PO BID Qty: 30 0RF Referrals Referrals: Diane Sorenson MD [Primary Care Provider] -
--- NOTE | 2022-04-18 07:50 | CT Scan Report ---
ABDOMEN AND PELVIS CT WITHOUT CONTRAST CT DOSE: 292.47 mGy.cm HISTORY: Epigastric abdominal pain. TECHNIQUE: Multiaxial CT images of the abdomen and pelvis were performed without contrast. A dose lo wering technique was utilized adhering to the principles of ALARA. COMPARISON STUDY: Abdomen and pelvis CT 04/13/2022. FINDINGS: Stable 3 mm nodule within the right middle lobe on image 62. Interval development of a few small patchy groundglass airspace opacities within the lung bases. This may represent a viral pneumon itis. No pneumoperitoneum. No pneumatosis. No fractures within the visualized osseous structures. Sev ere hepatic steatosis. Cholecystectomy. The spleen and adrenal glands unremarkable. There are few pun ctate bilateral renal calculi. No ureteral calculi. No hydronephrosis. Mild peripancreatic inflammato ry change/edema at the pancreatic head/uncinate process consistent with an acute pancreatitis. This r emains unchanged. There are punctate calcifications at the uncinate process of the pancreas which are also unchanged. No retroperitoneal lymphadenopathy. Normal caliber abdominal aorta. The bladder is u nremarkable. An intrauterine device appears in good position. Suboptimal evaluation for bowel patholo gy due to the lack of intravenous and oral contrast. However, there is no definite bowel wall thicken ing or obstruction. Normal appendix. Moderate well-formed stool within the colon. IMPRESSION: 1. No significant change in the mild peripancreatic inflammatory change/edema consistent with a mild acute pancreatitis. 2. Bilateral nephrolithiasis. No ureteral stones. No hydronephrosis. 3. Severe hepatic steatosis. 4. A few small patchy groundglass airspace opacities within the lung bases which are new from the luna or study. This may represent a viral pneumonitis. ACT 112: Negative or not required by law. Electronically signed by: Bunny Doherty M.D. 04/18/2022 7:47 AM
--- NOTE | 2022-04-18 08:07 | XRay Report ---
XR chest 1V portable CLINICAL HISTORY: sob TECHNIQUE: Single frontal radiograph of the chest was obtained. Comparison: Comparison is made to chest radiograph 08/06/2021 FINDINGS: No lines and tubes are seen. The cardiomediastinal silhouette is normal. The lungs are clear. No evid ence of pleural effusion or pneumothorax. IMPRESSION: No acute chest disease. ACT 112: Negative or not required by law. Electronically signed by: Armand Cohen M.D. 04/18/2022 8:05 AM
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
[2022-04-18] MEDS ORDERED: MAGNESIUM HYDROXIDE SUSP 30 ML UDC PO PRN (12:13)
[2022-04-18] MEDS ORDERED: LORazepam 0.5 MG in SYRINGE 0.25 ML IV PRN (12:13)
[2022-04-18] MEDS ORDERED: MAGNESIUM SULFATE / D5W 1 GM/100 ML BAG IV ONE (12:13)
[2022-04-18] MEDS ORDERED: ALUMINUM/MAGNESIUM SUSP 30 ML UDC PO PRN (12:13)
[2022-04-18] MEDS ORDERED: BACLOFEN 20 MG TAB PO PRN (12:13)
[2022-04-18] MEDS ORDERED: NSS + 20MEQ KCL 20 MEQ/1,000 ML BAG IV SCH (12:13)
[2022-04-18] MEDS ORDERED: ACETAMINOPHEN 500 MG TAB PO SCH (12:13)
[2022-04-18] MEDS ORDERED: traMADol HCL 50 MG TABLET PO PRN (12:44)
[2022-04-18] MEDS: PANTOprazole 40 MG in SYRINGE 0 ML IV SCH (12:53)
[2022-04-18] MEDS: POLYETHYLENE (MIRALAX) 17 GM PACK PO SCH (13:03)
[2022-04-18] MEDS: SENNA 8.6 MG TAB PO SCH (13:03)
[2022-04-18] MEDS: DOCUSATE SODIUM 100 MG CAP PO SCH ×2 (13:03→20:30)
[2022-04-18] MEDS: PANCREAZE (LIPASE 10,500U) CAP PO SCH ×2 (13:21→20:30)
[2022-04-18] MEDS: ONDANSETRON INJ 2 MG/ML 2 ML VIAL IV PRN (14:36)
[2022-04-18] MEDS: HYDROmorphone INJ 0.5 MG/0.5 ML SYR IV PRN ×2 (15:35→21:52)
[2022-04-18] MEDS: LACTATED RINGER'S 1,000 ML IV SCH (18:11)
[2022-04-18] MEDS ORDERED: PROMETHAZINE HCL 12.5 MG in SODIUM CHLORIDE 0.9% 50 ML IV STA (18:50)
[2022-04-18 19:21] LABS: Influenza A virus by PCR Negative (Neg); Influenza B virus by PCR Negative (Neg); RSV by PCR Negative (Neg); SARS CoV2 RNA(COVID-19) InHosp NEGATIVE (Negative)
[2022-04-18] MEDS: APIXABAN 5 MG TABLET PO SCH (20:30)
[2022-04-18] MEDS: AMPICILLIN/SULBACTAM SOD 3,000 MG in 0.9 % SODIUM CHLORIDE 100 ML IV SCH (21:03)
[2022-04-18] MEDS: clonazePAM 1 MG TAB PO SCH (21:03)
[2022-04-18] MEDS: MELATONIN 3 MG TAB PO PRN (21:51)
[2022-04-19] MEDS: LACTATED RINGER'S 1,000 ML IV SCH ×3 (00:09→10:56)
[2022-04-19] MEDS: AMPICILLIN/SULBACTAM SOD 3,000 MG in 0.9 % SODIUM CHLORIDE 100 ML IV SCH ×4 (04:08→20:18)
[2022-04-19] MEDS: ONDANSETRON INJ 2 MG/ML 2 ML VIAL IV PRN (04:11)
[2022-04-19] MEDS: HYDROmorphone INJ 0.5 MG/0.5 ML SYR IV PRN ×4 (04:17→18:28)
[2022-04-19] MEDS: PROMETHAZINE HCL 12.5 MG in SODIUM CHLORIDE 0.9% 50 ML IV PRN ×3 (08:07→22:23)
[2022-04-19] MEDS: PANTOprazole 40 MG in SYRINGE 0 ML IV SCH (08:07)
[2022-04-19] MEDS: clonazePAM 1 MG TAB PO SCH ×2 (08:07→20:21)
[2022-04-19] MEDS: POLYETHYLENE (MIRALAX) 17 GM PACK PO SCH (08:09)
[2022-04-19] MEDS: SENNA 8.6 MG TAB PO SCH (08:09)
[2022-04-19] MEDS: PANCREAZE (LIPASE 10,500U) CAP PO SCH ×3 (08:09→20:24)
[2022-04-19] MEDS: FOLIC ACID 1 MG TAB PO SCH (08:09)
[2022-04-19] MEDS: ADVANCED PROBIOTIC 1250 MG CAPSULE PO SCH (08:09)
[2022-04-19] MEDS: DOCUSATE SODIUM 100 MG CAP PO SCH ×2 (08:09→20:27)
[2022-04-19] MEDS: APIXABAN 5 MG TABLET PO SCH ×2 (08:09→20:27)
[2022-04-19] MEDS: MULTIVITAMIN TAB PO SCH (08:09)
[2022-04-19] MEDS ORDERED: THIAMINE HCL 100 MG TAB PO SCH (09:00)
[2022-04-19 09:26] LABS: Hematocrit (blood only) 33.8 % (34.1-44.9); Hemoglobin 11.1 g/dl (12.0-16.0); Mean Corpuscular Hemoglobin 32.4 pg (25.0-34.0); Mean Corpuscular Hgb Conc 32.8 g/dL (32.0-36.0); Mean Corpuscular Volume 98.5 fL (80.0-100.0); Mean Platelet Volume 9.5 fL (9.4-12.3); Platelet Count 339 K/uL (130-400); RDW Coefficient of Variation 15.9 % (11.5-14.5); RDW Standard Deviation 57.8 fL (36.4-46.3); Red Blood Count 3.43 M/uL (3.93-5.22); White Blood Count 5.79 K/ul (4.8-10.8)
[2022-04-19 09:50] LABS: Albumin Globulin Ratio 1.4 (0.9-2); Albumin Level 2.6 gm/dl (3.4-5.0); Bilirubin,Total 0.4 mg/dl (0.2-1.0); Calcium 7.4 mg/dl (8.5-10.1); Creatinine Clr Calc Pharmacy 131.8 ml/min; Est GFR (African American) 142.2 ml/min; Est GFR (Non-African American) 122.7 ml/min; Globulin 1.9 gm/dl (2.5-4.0); Magnesium 1.6 mg/dl (1.7-2.4); Phosphorus 3.8 mg/dl (2.5-4.9); Potassium 3.3 mmol/L (3.5-5.1); Total Protein 4.5 gm/dl (6.0-8.3)
[2022-04-19] MEDS: POTASSIUM CHLORIDE 20 MEQ in LACTATED RINGER'S 1,000 ML IV SCH ×2 (10:55→18:28)
[2022-04-19] MEDS: MAGNESIUM SULFATE / D5W 1 GM/100 ML BAG IV SCH ×2 (10:55→12:54)
[2022-04-19] MEDS: POTASSIUM CHLORIDE CRTAB 20 MEQ TABCR PO SCH ×3 (10:56→20:26)
[2022-04-19] MEDS: hydrOXYzine HCl 25 MG TAB PO PRN (12:54)
[2022-04-19] MEDS: THIAMINE HCL 100 MG TAB PO SCH (20:25)
[2022-04-19] MEDS ORDERED: HYDROmorphone INJ 0.5 MG/0.5 ML SYR IV PRN (21:39)
--- NOTE | 2022-04-19 21:41 | Communication Note ---
Date of Service: April 19, 2022 changed dilaudid from q4hprn to q3hprn for severe pain I am removing the prn ativan order at this time as per her previous admission last week, team was attempting to titrate down the clonazepam (2mg BID in past, weaned to .5mg qam and .25mg qhs, but reincreased to 1mg BID at discharge in hopes of bridging to rehab. Unfortunately, readmitted prior to getting to rehab. She currently has 1mg clonazepam BID scheduled. Informed by nursing overnight of crackles and SOB. 99% sat. Stopped IV fluids. Day team to assess as during my visit patient was asleep.
[2022-04-19] MEDS: MELATONIN 3 MG TAB PO PRN (22:23)
[2022-04-20] MEDS ORDERED: ONDANSETRON INJ 2 MG/ML 2 ML VIAL IV STA (00:28)
[2022-04-20] MEDS: HYDROmorphone INJ 0.5 MG/0.5 ML SYR IV PRN ×7 (00:59→21:27)
[2022-04-20] MEDS: POTASSIUM CHLORIDE 20 MEQ in LACTATED RINGER'S 1,000 ML IV SCH (01:02)
[2022-04-20] MEDS: AMPICILLIN/SULBACTAM SOD 3,000 MG in 0.9 % SODIUM CHLORIDE 100 ML IV SCH ×4 (03:33→21:27)
[2022-04-20] MEDS: hydrOXYzine HCl 25 MG TAB PO PRN ×2 (03:39→13:01)
[2022-04-20] MEDS: PROMETHAZINE HCL 12.5 MG in SODIUM CHLORIDE 0.9% 50 ML IV PRN ×3 (04:55→22:07)
[2022-04-20 06:56] LABS: BUN Creatinine Ratio 4.7 (10-20); Calcium 7.7 mg/dl (8.5-10.1); Est GFR (African American) 145.4 ml/min; Est GFR (Non-African American) 125.5 ml/min; Potassium 3.9 mmol/L (3.5-5.1)
[2022-04-20] MEDS: THIAMINE HCL 100 MG TAB PO SCH ×2 (08:02→21:01)
[2022-04-20] MEDS: APIXABAN 5 MG TABLET PO SCH ×2 (08:02→21:03)
[2022-04-20] MEDS: clonazePAM 1 MG TAB PO SCH ×2 (08:02→21:09)
[2022-04-20] MEDS: FOLIC ACID 1 MG TAB PO SCH (08:03)
[2022-04-20] MEDS: MULTIVITAMIN TAB PO SCH (08:03)
[2022-04-20] MEDS: PANCREAZE (LIPASE 10,500U) CAP PO SCH ×3 (08:03→21:01)
[2022-04-20] MEDS: ADVANCED PROBIOTIC 1250 MG CAPSULE PO SCH (08:03)
[2022-04-20] MEDS: PANTOprazole 40 MG in SYRINGE 0 ML IV SCH (08:03)
[2022-04-20] MEDS: DOCUSATE SODIUM 100 MG CAP PO SCH ×2 (08:03→21:02)
[2022-04-20] MEDS: SENNA 8.6 MG TAB PO SCH (08:03)
[2022-04-20] MEDS: POLYETHYLENE (MIRALAX) 17 GM PACK PO SCH (08:04)
[2022-04-20] MEDS ORDERED: PROMETHAZINE HCL 12.5 MG in SODIUM CHLORIDE 0.9% 50 ML IV STA (09:54)
--- NOTE | 2022-04-20 10:17 | Hospitalist Progress Note ---
Date of Service April 19, 2022 Assessment & Plan (1) Acute on chronic pancreatitis: Plan: acute component improving biochemically and, although still having nausea/pain, she looks better today. ok to advance diet to full liquids only. cont LR. while here should have triglycerides checked - last was 2019. she denies any recent etoh intake. perhaps the pneumonia we see is viral and the same virus caused pancreatitis flare?? (2) Pancreatitis, chronic: Plan: follows with [facility] [place] about [id number] cont creon see #1 above (3) Alcohol use disorder, moderate, in early remission: Plan: no signs of withdrawal she admitted to etoh intake in small quantities to admitting provider but denies such with me Continue folic acid/MVI/thiamine but increase latter to BID dosing (4) Generalized anxiety disorder with panic attacks: Plan: SEVERE she reports having an appoint in about 5 days with outpatient psychiatry to address this has been weaning on her klonipin prior to this admission add hydroxyzine for additional prn anxiety relief insomnia is severe - will ask psych to see to help with DURAN and her insomnia (5) Nausea: Plan: PRN phenergan stop zofran 2nd to #1, #2 (6) Portal vein thrombosis: Plan: Continue Eliquis 5mg BID Diagnosed at [facility] more than 1yr ago (7) Hypokalemia: Plan: Repleted Resolved Replete low mag repeat bmp and mag in am (8) GERD (gastroesophageal reflux disease): Plan: PPI (9) Abnormal LFTs: Plan: LFTs stable today (10) Back pain, chronic: Plan: PT, OT (11) Smoker: Plan: Encourage cessation - current use is 1/2 PPD Daily marijuana use (medicinally - Patient has marijuana card) (12) Weight loss: Plan: Likely due to recurrent vomiting and poor nutrition in setting of chronic pancreatitis Can't rule out other factors contributing (13) Lower extremity weakness: Plan: Patient reports bilateral lower extremity weakness over the past several weeks with 2 falls PT / OT consult requested for evaluation and management MRI from 09/2021 [facility] only --- no foramen narrowing or other pathology B12 level (most recent) wnl Consider checking a lyme as chronic lyme can cause radiculitis of lumbar spine Send B1 level as this can cause neuropathy Neuropathy of legs may be from chronic etoh however (14) DVT prophylaxis: Plan: Eliquis 5mg BID Plan change to full admission status today Admission and Anticipated Discharge Date Admission Date: April 19, 2022 Subjective very anxious stressed out over various issues outside the hospital - lack of employment, her general health, getting the help she needs for her various physical/mental health issues, etc she is sleeping poorly agreeable to speaking w/ psychiatry here continues with mild abd pain centrally continues with nausea doesn't like full liquids - wants diet advanced no BM since admission no new complaints otherwise Review of Systems Review of Systems: gen - fatigue; no fevers/chills cv - no cp pulm - no dyspnea GI - no vomiting today Physical Exam Physical Exam: gen - NAD, anxious mouth - MMM heart - RRR, s1 s2, no murmur lungs - fine b/l basilar rales, no wheeze, no increased work of breathing abd - soft, minimal tenderness epigastric region, BS+, no HSM ext - no edema, pulses 2+ b/l psych - a/o x 3, no signs of etoh withdrawal, very anxious Results & Data Results & Data ([facility]) Vital Signs (Past 12 Hours) Vital Signs Temp Pulse Resp BP Pulse Ox O2 Del Method 04/20/22 07:20 Room Air 04/20/22 07:47 37.0 C 78 16 122/82 96 Room Air 04/20/22 00:56 99 Room Air 04/19/22 23:44 36.6 C 71 16 115/81 94 Room Air Laboratory Results BMP wnl mag low at 1.6 lipase wnl today PG Care Time/CCT Total # of Minutes Spent Total Time Spent with Patient: Total time spent is greater than 50% in coordination of care (as documented) at patient's floor/unit and/or counseling patient: Coding Level of Care Code 53656 Subseq Hosp Care Lvl 3 Diagnoses Acute on chronic pancreatitis K85.90; K86.1 Pancreatitis, chronic K86.1 Alcohol use disorder, moderate, in early remission F10.21 Generalized anxiety disorder with panic attacks F41.1; F41.0 Nausea R11.0 Portal vein thrombosis I81 Hypokalemia E87.6 GERD (gastroesophageal reflux disease) K21.9 Abnormal LFTs R79.89 Back pain, chronic M54.9; G89.29 Smoker F17.200 Weight loss R63.4 Lower extremity weakness R29.898 DVT prophylaxis Z29.9
--- NOTE | 2022-04-20 11:39 | Psychiatric Consultation ---
Date of Consultation April 20, 2022 Impression / Recommendations Impression 41 yo woman with worsening anxiety and depression in context of multiple recent psychosocial stressors, physical pain, nausea and panic attacks with Klonopin taper. Diagnostically consistent with DURAN and MDD. Encouragingly her anxiety has improved with slightly higher dose of scheduled Klonopin BID and responded well to initial doses of mirtazapine. Will restart mirtazapine at qhs, schedule melatonin and agree with continuing Klonopin BID, would avoid any further dose escalations or additional benzos. Re-reviewed potential side effects, risks, benefits for mirtazapine and she would like to restart this. No SI, acute risk of self-harm remains low. Counseled again on risks of concurrent Klonopin and alcohol use, she feels stable in her alcohol use recovery. If additional medications are needed for anxiety could consider Vistaril prn (she is currently recieving, during last admission was concern this may have prompted episode of worsened epigastric pain so would monitor if she is using extensively) or option to try propranolol 10mg BID prn for additional anxiolytic if needed. (1) Adjustment disorder with depressed mood: (2) Generalized anxiety disorder with panic attacks: (3) PTSD (post-traumatic stress disorder): (4) Insomnia: (5) Alcohol use disorder, moderate, in early remission: (6) Acute on chronic pancreatitis: Plan -Restart mirtazapine 7.5 mg qhs -scheduled melatonin 9mg qhs -continue with Klonopin 1mg BID -has outpt psych follow-up Risk Factors Assessment Do You Have Access To A Gun?: No Psych History Identifying Data 41 yo with history of anxiety, depression, alcohol use disorder in early re mission, and pancreatitis re-admitted medically for worsening pain and nausea after discharge on 04/15/22. Psychiatry consulted for recommendations regarding anxiety. Chief Complaint "I was discharged too early". History of Present Illness Nadja is known to me from her recent psychiatry consult on 04/14/22 for anxiety and depression at which time I recommended she start Remeron and continue with Klonopin taper but slowing down given heightened panic attacks and anxiety. She re-presents for similar symptoms of acute pain, nausea and new shortness of breath which she states developed about 1-2 days after discharge. She is discouraged that she had to be re-admitted but feels she is receiving good care and is glad that she is no longer having any issues breathing. Reviewed that she found the Remeron "amazing" after we started it last week and is hopeful that it will automatic glove turner and former to be a good long-term medication option for her, she liked that it helped with nausea, decreased anxiety and helped with sleep. She would like to restart this here. She also requested to have her melatonin scheduled. She feels her anxiety and panic attacks have improved with increased Klonopin of 1mg BID. Eventually she wants to taper to discontinuation but feels she needs the Klonopin for now given multiple recent stressors and physical symptoms-see consult note on 04/14/22 for prior history and recent stressors. Endorses depression, largely related to stressors and physical symptoms with PHQ-9 score of 22 but 0 for Q9. Denies SI. Reviewed interim history and she denies any alcohol use between discharge and re-admission noting that she removed all alcohol from the house to ensure she was not tempted to drink anything given her physical symptoms, remains confident and feeling stable in her recovery. Past Psychiatric History Previous Psych History: anxiety Outpatient Services: upcoming intake at [facility], therapy intake at [facility] Previous Psych Admissions: 2004 [facility] Do You Have Access To A Gun?: No History of Previous Suicide Attempt: Yes Describe Attempts in the Past: 2004 via overdose Past Medication Trials: multiple SSRI and SNRI trials with adverse side effects, hx seroquel and depakote many years ago, hx buspar with poor response Allergies Allergy/AdvReac Type Severity Reaction Status Date / Time buspirone [From BuSpar] Allergy Severe Unconscious, Verified 04/18/22 11:26 seizures quetiapine [From Seroquel] Allergy Severe Unconscious, Verified 04/18/22 11:26 seizures citalopram [From Celexa] AdvReac Intermediate Vomiting Verified 04/18/22 11:26 fluoxetine AdvReac Intermediate Migraine Verified 04/18/22 11:26 morphine AdvReac Intermediate "MAKES ME Verified 04/18/22 11:26 SICK(VOMITING)" vilazodone [From Viibryd] AdvReac Vomiting Verified 04/18/22 11:26 Home Medications Medication Instructions Recorded Confirmed Type multivitamin 1 tab PO DAILY 03/18/19 04/18/22 History mecobalamin (vitamin B12) 1,000 1,000 mcg PO PM 11/10/19 04/18/22 History mcg chewable tablet (B12 Active) apixaban 5 mg tablet (Eliquis) 5 mg PO Q12 04/12/21 04/18/22 History potassium chloride 20 mEq 20 meq PO DAILY #1 tab 04/14/21 04/18/22 Rx tablet,extended release(part/cryst) (Klor-Con M) thiamine HCl (vitamin B1) 100 mg 200 mg PO DAILY 04/17/21 04/18/22 History tablet [id number] 3 cap PO TID Abdominal Discomfort 06/05/21 04/18/22 Rx 36,000-114,000-180,000 unit 90 days #810 caps capsule,delay rel (Creon) melatonin 10 mg capsule 10 mg PO HS PRN Insomnia 09/04/21 04/18/22 History hydroxyzine HCl 50 mg tablet 50 mg PO Q6H PRN anxiety #60 tabs 12/18/21 04/18/22 Rx sumatriptan succinate 100 mg 100 mg PO .COMPLEX PRN Migraine 12/18/21 04/18/22 Rx tablet (Imitrex) Headache #16 tabs ondansetron 4 mg disintegrating 4 mg PO Q6H PRN Nausea #30 tabs 02/15/22 04/18/22 Rx tablet folic acid 1 mg tablet 1 mg PO DAILY #90 tabs 03/22/22 04/18/22 Rx pantoprazole 40 mg tablet,delayed 40 mg PO BID #180 tabs 03/22/22 04/18/22 Rx release pantoprazole 20 mg tablet,delayed 20 mg PO DAILY #20 tabs 04/10/22 04/18/22 Rx release (Protonix) promethazine 12.5 mg tablet 12.5 mg PO QID PRN allergy 04/10/22 04/18/22 Rx symptoms #10 tabs cephalexin 500 mg capsule 500 mg PO Q6 #12 caps 04/15/22 04/18/22 Rx clonazepam 1 mg tablet 1 mg PO BID #30 tabs 04/15/22 04/18/22 Rx mirtazapine 15 mg tablet 7.5 mg PO HS #30 tabs 04/15/22 04/18/22 Rx spironolactone 25 mg tablet 12.5 mg PO DAILY #30 tabs 04/15/22 04/18/22 Rx baclofen 20 mg tablet 20 mg PO TID PRN Muscle Spasm 04/18/22 04/18/22 History clindamycin phosphate 1 % topical 1 applic topical DAILY 04/18/22 04/18/22 History gel Substance Abuse History alcohol in early remission Personal History Living Arrangements: Home Employment Status: [employer] Intern Employed Beliefs That Will Affect Care: None Patient History Medical History Acne Acute gallstone pancreatitis Acute on chronic pancreatitis Acute pancreatitis Alcohol abuse Anxiety and depression Back pain, chronic Chronic neck pain GERD (gastroesophageal reflux disease) Hiatal hernia Insomnia Kidney failure 2009 (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 Gala Willett History of lumpectomy of right breast BENIGN History of tooth extraction Family History Father Family history of diabetes mellitus Myocardial infarction Stroke Hypertension Grandfather (Maternal) Family history of diabetes mellitus Grandmother (Maternal) Family history of diabetes mellitus Hypertension Cancer Mother Hypothyroidism Grandfather (Paternal) Cancer Heart problem Grandmother (Paternal) Hypertension Denies family history of Ovarian cancer Prostate cancer Breast cancer Colorectal cancer Social History Smoking Status: Current every day smoker Tobacco Type: Cigarettes Cigarettes Per Day: less than 1/2 pack a day; Second Hand Exposure: No; Hx Alcohol Use: Yes Alcohol type: hard liquor Hx Substance Use: Yes Last Used Substance: Just Prior to Arrival Last Used Substance Other:: [facility], [facility] PRESCRIBED Substance Use Type Other:: Smokes Marijuanna Preferred Language: Spanish Communication Ability: Effective Visual Impairment: No Limitations Hearing Ability: Normal Histology Tech Required: No Beliefs That Will Affect Care: None marital status: Single Current Living Situation: Parent Current Living Situation Comment: lives at home with mom current occupational status: employed How many Children do You have: 0 Feels Safe at Home: Yes Safety Concerns: Feels Safe At This Time Childhood Exposure to Second-Hand Smoke: No Dental Care, Regularly: Yes Physical Activity Frequency: Does not Exercise Seatbelt Use: always Sunscreen Use: Yes Do you think of yourself as: straight/heterosexual Assistive Devices: None Physical Exam Psychiatric: Orientation: alert and oriented x 3 Apperance: appropriately dressed and appropriately groomed Eye Contact: good eye contact Motor Behavior: no abnormal motor movements Speech: normal rate/rhythm/volume of speech Affect: + depressed affect Mood: + depressed mood and + anxious mood Thought Process: goal directed thought process Thought Content: reality based without delusions Suicidal Thoughts: denies suicidal thoughts Homicidal Thoughts: denies homicidal thoughts Hallucinations: no auditory hallucinations and no visual hallucinations Cognition: recent memory grossly intact, remote memory grossly intact, attention grossly intact and language grossly intact Estimated Intelligence: consistent with education level Insight: + fair insight Judgement: + fair judgement Vital Signs (Past 24 Hours): Last Vital Signs Temp 37.0 C 04/20/22 07:47 Pulse 78 04/20/22 07:47 Resp 16 04/20/22 07:47 BP 122/82 04/20/22 07:47 Pulse Ox 96 04/20/22 07:47 O2 Del Method 04/20/22 07:47 Review of Systems All systems reviewed & are unremarkable except as noted in HPI & below (endorses nausea, periods of high pain) Results & Data (PSY) Medications Administered Lipase/Protease/Amylase (Pancreaze (Lipase 10,500u) Cap) 3 cap PO TID CIRO Stop: 05/18/22 13:59 Last Admin: 04/20/22 08:03 Dose: 3 cap Documented By: [id number] Admin: 04/19/22 20:24 Dose: 3 cap Documented By: Admin: 04/19/22 14:12 Dose: 3 cap Documented By: [id number] Admin: 04/19/22 08:09 Dose: 3 cap Documented By: [id number] Admin: 04/18/22 20:30 Dose: 3 cap Documented By: Admin: 04/18/22 13:21 Dose: Not Given Documented By: ALMA Apixaban (Apixaban 5 Mg Tablet) 5 mg PO Q12 CIRO Stop: 05/18/22 20:59 Last Admin: 04/20/22 08:02 Dose: 5 mg Documented By: [id number] Admin: 04/19/22 20:27 Dose: 5 mg Documented By: Admin: 04/19/22 08:09 Dose: 5 mg Documented By: [id number] Admin: 04/18/22 20:30 Dose: 5 mg Documented By: NADINE Clonazepam (Clonazepam 1 Mg Tab) 1 mg PO BID CIRO Stop: 05/18/22 20:59 Last Admin: 04/20/22 08:02 Dose: 1 mg Documented By: [id number] Admin: 04/19/22 20:21 Dose: 1 mg Documented By: Admin: 04/19/22 08:07 Dose: 1 mg Documented By: [id number] Admin: 04/18/22 21:03 Dose: 1 mg Documented By: [email or web address] Docusate Sodium (Docusate Sodium 100 Mg Cap) 100 mg PO BID [facility] Stop: 05/18/22 12:12 Last Admin: 04/20/22 08:03 Dose: 100 mg Documented By: [id number] Admin: 04/19/22 20:27 Dose: 100 mg Documented By: Admin: 04/19/22 08:09 Dose: 100 mg Documented By: [id number] Admin: 04/18/22 20:30 Dose: 100 mg Documented By: Admin: 04/18/22 13:03 Dose: 100 mg Documented By: ALMA Folic Acid (Folic Acid 1 Mg Tab) 1 mg PO DAILY [facility] Stop: 05/19/22 08:59 Last Admin: 04/20/22 08:03 Dose: 1 mg Documented By: [id number] Admin: 04/19/22 08:09 Dose: 1 mg Documented By: [id number] Hydromorphone HCl (Hydromorphone Inj 0.5 Mg/0.5 Ml Syr) 0.5 mg IV Q3H PRN PRN Reason: Severe Pain Stop: 05/03/22 07:45 Last Admin: 04/20/22 11:33 Dose: 0.5 mg Documented By: [id number] Admin: 04/20/22 08:04 Dose: 0.5 mg Documented By: [id number] Admin: 04/20/22 03:59 Dose: 0.5 mg Documented By: Admin: 04/20/22 00:59 Dose: 0.5 mg Documented By: YEN Hydroxyzine HCl (Hydroxyzine Hcl 25 Mg Tab) 25 mg PO Q6H PRN PRN Reason: anxiety Stop: 05/19/22 12:42 Last Admin: 04/20/22 03:39 Dose: 25 mg Documented By: Admin: 04/19/22 12:54 Dose: 25 mg Documented By: [id number] Pantoprazole Sodium 40 mg/ (Syringe) 10 mls @ 5 mls/min IV DAILY CIRO Stop: 05/18/22 12:12 Last Admin: 04/20/22 08:03 Dose: 5 mls/min Documented By: [id number] Admin: 04/19/22 08:07 Dose: 5 mls/min Documented By: [id number] Admin: 04/18/22 12:53 Dose: Not Given Documented By: ALMA Lorazepam 0.5 mg/ Syringe 0.5 mls @ 2 mls/min IV Q6H PRN PRN Reason: Anxiety Stop: 05/18/22 12:12 Last Admin: 04/19/22 16:05 Dose: 2 mls/min Documented By: [id number] Ampicillin Sodium/Sulbactam Sodium 3,000 mg/ Sodium Chloride 108 mls @ 200 mls/hr IV Q6H CIRO; Protocol Stop: 04/25/22 20:59 Last Infusion: 04/20/22 08:37 Dose: 0 mls/hr Documented By: [id number] Admin: 04/20/22 08:02 Dose: 200 mls/hr Documented By: [id number] Infusion: 04/20/22 04:25 Dose: 0 mls/hr Documented By: Admin: 04/20/22 03:33 Dose: 200 mls/hr Documented By: Infusion: 04/19/22 20:57 Dose: 0 mls/hr Documented By: Admin: 04/19/22 20:18 Dose: 200 mls/hr Documented By: Infusion: 04/19/22 14:50 Dose: 0 mls/hr Documented By: [id number] Admin: 04/19/22 14:12 Dose: 200 mls/hr Documented By: [id number] Infusion: 04/19/22 09:43 Dose: 0 mls/hr Documented By: [id number] Admin: 04/19/22 09:09 Dose: 200 mls/hr Documented By: [id number] Infusion: 04/19/22 04:55 Dose: 0 mls/hr Documented By: Admin: 04/19/22 04:08 Dose: 200 mls/hr Documented By: Infusion: 04/18/22 21:51 Dose: 0 mls/hr Documented By: Admin: 04/18/22 21:03 Dose: 200 mls/hr Documented By: [email or web address] Promethazine HCl 12.5 mg/ (Sodium Chloride) 50.5 mls @ 202 mls/hr IV Q6H PRN PRN Reason: Nausea And Vomiting Stop: 05/19/22 07:44 Last Infusion: 04/20/22 05:22 Dose: 0 mls/hr Documented By: Admin: 04/20/22 04:55 Dose: 202 mls/hr Documented By: Infusion: 04/19/22 22:43 Dose: 0 mls/hr Documented By: Admin: 04/19/22 22:23 Dose: 202 mls/hr Documented By: Infusion: 04/19/22 16:20 Dose: 0 mls/hr Documented By: [id number] Admin: 04/19/22 16:05 Dose: 202 mls/hr Documented By: [id number] Infusion: 04/19/22 08:28 Dose: 0 mls/hr Documented By: [id number] Admin: 04/19/22 08:07 Dose: 202 mls/hr Documented By: [id number] Potassium Chloride 20 meq/ (Lactated Ringer's) 1,010 mls @ 150 mls/hr IV .Q6H44M CIRO Stop: 05/19/22 10:59 Last Infusion: 04/20/22 01:16 Dose: 0 mls/hr Documented By: Admin: 04/20/22 01:02 Dose: 150 mls/hr Documented By: Infusion: 04/20/22 01:02 Dose: 150 mls/hr Documented By: Admin: 04/19/22 18:28 Dose: 150 mls/hr Documented By: [id number] Infusion: 04/19/22 17:54 Dose: 0 mls/hr Documented By: [id number] Admin: 04/19/22 10:55 Dose: 150 mls/hr Documented By: [id number] Lactobacillus Acidophilus (Advanced Probiotic 1250 Mg Capsule) 2 cap PO DAILY CIRO Stop: 05/19/22 08:59 Last Admin: 04/20/22 08:03 Dose: 2 cap Documented By: [id number] Admin: 04/19/22 08:09 Dose: 2 cap Documented By: [id number] Melatonin (Melatonin 3 Mg Tab) 9 mg PO HSZ PRN PRN Reason: Insomnia Stop: 05/18/22 12:24 Last Admin: 04/19/22 22:23 Dose: 9 mg Documented By: Admin: 04/18/22 21:51 Dose: 9 mg Documented By: NADINE Multivitamins (Multivitamin Tab) 1 tab PO DAILY CIRO Stop: 05/19/22 08:59 Last Admin: 04/20/22 08:03 Dose: 1 tab Documented By: [id number] Admin: 04/19/22 08:09 Dose: 1 tab Documented By: [id number] Polyethylene Glycol (Polyethylene (Miralax) 17 Gm Pack) 17 gm PO DAILY CIRO Stop: 05/18/22 12:12 Last Admin: 04/20/22 08:04 Dose: 17 gm Documented By: [id number] Admin: 04/19/22 08:09 Dose: 17 gm Documented By: [id number] Admin: 04/18/22 13:03 Dose: 17 gm Documented By: ALMA Sennosides (Senna 8.6 Mg Tab) 8.6 mg PO QAM CIRO Stop: 05/18/22 12:12 Last Admin: 04/20/22 08:03 Dose: 8.6 mg Documented By: [id number] Admin: 04/19/22 08:09 Dose: 8.6 mg Documented By: [id number] Admin: 04/18/22 13:03 Dose: 8.6 mg Documented By: ALMA Thiamine HCl (Thiamine Hcl 100 Mg Tab) 200 mg PO BID CIRO Stop: 05/19/22 20:59 Last Admin: 04/20/22 08:02 Dose: 200 mg Documented By: [id number] Admin: 04/19/22 20:25 Dose: 200 mg Documented By: YEN Coding Level of Care Code 71431 Inpt Consult Level 3 Diagnoses Adjustment disorder with depressed mood F43.21 Generalized anxiety disorder with panic attacks F41.1; F41.0 PTSD (post-traumatic stress disorder) F43.10 Insomnia G47.00 Alcohol use disorder, moderate, in early remission F10.21 Acute on chronic pancreatitis K85.90; K86.1
[2022-04-20 11:57] LABS: Lyme Ab IgG w/WB Rflx Negative (Negative); Lyme Ab IgM w/WB Rflx Negative (Negative)
[2022-04-20] MEDS: MELATONIN 3 MG TAB PO SCH (21:03)
[2022-04-20] MEDS: MIRTAZAPINE TAB 15 MG TAB PO SCH (21:04)
[2022-04-21] MEDS: HYDROmorphone INJ 0.5 MG/0.5 ML SYR IV PRN ×7 (00:40→22:25)
[2022-04-21] MEDS: hydrOXYzine HCl 25 MG TAB PO PRN ×3 (03:24→20:06)
[2022-04-21] MEDS: AMPICILLIN/SULBACTAM SOD 3,000 MG in 0.9 % SODIUM CHLORIDE 100 ML IV SCH ×4 (03:24→21:06)
[2022-04-21] MEDS: PROMETHAZINE HCL 12.5 MG in SODIUM CHLORIDE 0.9% 50 ML IV PRN ×3 (05:07→20:23)
[2022-04-21] MEDS: clonazePAM 1 MG TAB PO SCH ×2 (08:23→21:04)
[2022-04-21] MEDS: MULTIVITAMIN TAB PO SCH (08:24)
[2022-04-21] MEDS: THIAMINE HCL 100 MG TAB PO SCH ×2 (08:24→21:03)
[2022-04-21] MEDS: PANCREAZE (LIPASE 10,500U) CAP PO SCH ×3 (08:24→21:04)
[2022-04-21] MEDS: PANTOprazole 40 MG in SYRINGE 0 ML IV SCH (08:24)
[2022-04-21] MEDS: SENNA 8.6 MG TAB PO SCH (08:24)
[2022-04-21] MEDS: DOCUSATE SODIUM 100 MG CAP PO SCH ×2 (08:25→21:05)
[2022-04-21] MEDS: FOLIC ACID 1 MG TAB PO SCH (08:25)
[2022-04-21] MEDS: APIXABAN 5 MG TABLET PO SCH ×2 (08:25→21:05)
[2022-04-21] MEDS: ADVANCED PROBIOTIC 1250 MG CAPSULE PO SCH (08:25)
[2022-04-21] MEDS: POLYETHYLENE (MIRALAX) 17 GM PACK PO SCH (08:26)
[2022-04-21] MEDS ORDERED: FOLIC ACID 400 MCG TAB PO SCH (09:00)
--- NOTE | 2022-04-21 09:44 | Hospitalist Progress Note ---
Date of Service April 20, 2022 Assessment & Plan (1) Acute on chronic pancreatitis: Plan: acute component resolved biochemically and improving clinically. ok to advance diet to low fat. fluids stopped. while here should have triglycerides checked - last was 2018. she denies any recent etoh intake. perhaps the pneumonia we see is viral and the same virus caused pancreatitis flare?? (2) Pancreatitis, chronic: Plan: follows with [facility] in [place] about [id number] cont creon see #1 above (3) Alcohol use disorder, moderate, in early remission: Plan: no signs of withdrawal she admitted to etoh intake in small quantities to admitting provider but denies such with me denied such with psychiatry team Continue folic acid/MVI/thiamine but increase latter to BID dosing while awaiting her B1 level (4) Generalized anxiety disorder with panic attacks: Plan: SEVERE she reports having an appoint in about 5 days with outpatient psychiatry to address this has been weaning on her klonipin prior to this admission added hydroxyzine for additional prn anxiety relief insomnia is severe as well psych saw in consult -added back remeron - appreciate their advice / recs (5) Nausea: Plan: PRN phenergan 2nd to #1, #2 improving keeping food/beverage down (6) Portal vein thrombosis: Plan: Continue Eliquis 5mg BID Diagnosed at [facility] more than 1yr ago (7) Hypokalemia: Plan: Repleted Resolved mag wnl today (8) GERD (gastroesophageal reflux disease): Plan: PPI (9) Abnormal LFTs: Plan: LFTs stable on last check (10) Back pain, chronic: Plan: PT, OT (11) Smoker: Plan: Encourage cessation - current use is 1/2 PPD Daily marijuana use (medicinally - Patient has marijuana card) (12) Weight loss: Plan: Likely due to recurrent vomiting and poor nutrition in setting of chronic pancreatitis Can't rule out other factors contributing (13) Lower extremity weakness: Plan: Patient reports bilateral lower extremity weakness over the past several weeks with 2 falls PT / OT consult requested for evaluation and management MRI from 09/2021 [facility] only --- no foramen narrowing or other pathology B12 level (most recent) wnl Lyme titer/screen negative B1 level pending (B1 def can cause neuropathy); while awaiting level - thiamine 200mg BID Neuropathy of legs may be from chronic etoh however (14) DVT prophylaxis: Plan: Eliquis 5mg BID Plan progressing Admission and Anticipated Discharge Date Admission Date: April 19, 2022 Subjective pt feeling better today wishes to advance diet ongoing pain, but no worse than previous, and no vomiting ongoing nausea, however, and is taking phenergan prn for such she slept better last pm - probably the best sleep she has had in several weeks scant cough no dyspnea no chest symptoms Review of Systems Review of Systems: gen - no fevers or chills cv - no chest pain or tightness pulm - scant cough at most GI - per HPI Physical Exam Physical Exam: gen - NAD, looks better today mouth - MMM heart - RRR, s1 s2, no murmur lungs - fine b/l basilar rales but improved from yesterday's exam, no wheeze, no increased work of breathing abd - soft, NT, ND, BS+, no HSM ext - no edema, pulses 2+ b/l psych - a/o x 3, no signs of etoh withdrawal, less anxious today Results & Data Results & Data ([facility]) Vital Signs (Past 12 Hours) Vital Signs Temp Pulse Resp BP Pulse Ox O2 Del Method 04/21/22 07:04 37.3 C 92 H 16 111/76 92 Room Air 04/20/22 22:15 36.8 C 83 16 102/70 92 Room Air Laboratory Results lyme negative mag wnl bmp wnl PG Care Time/CCT Total # of Minutes Spent Total Time Spent with Patient: Total time spent is greater than 50% in coordination of care (as documented) at patient's floor/unit and/or counseling patient: Coding Level of Care Code 95811 Subseq Hosp Care Lvl 2 Diagnoses Acute on chronic pancreatitis K85.90; K86.1 Pancreatitis, chronic K86.1 Alcohol use disorder, moderate, in early remission F10.21 Generalized anxiety disorder with panic attacks F41.1; F41.0 Nausea R11.0 Portal vein thrombosis I81 Hypokalemia E87.6 GERD (gastroesophageal reflux disease) K21.9 Abnormal LFTs R79.89 Back pain, chronic M54.9; G89.29 Smoker F17.200 Weight loss R63.4 Lower extremity weakness R29.898 DVT prophylaxis Z29.9
[2022-04-21 14:30] LABS: D Dimer 310 ug/L FEU (0-500)
[2022-04-21 14:37] LABS: Lipase 36 U/L (11-82); Triglycerides 98 mg/dl (0-150)
[2022-04-21] MEDS: MIRTAZAPINE TAB 15 MG TAB PO SCH (21:03)
[2022-04-21] MEDS: MELATONIN 3 MG TAB PO SCH (21:05)
--- NOTE | 2022-04-21 21:11 | Hospitalist Progress Note ---
Date of Service April 21, 2022 Assessment & Plan (1) Chest pain: Plan: Self-resolved this am. Trop neg. d-dimer neg (suspicion for VTE low due to Eliquis use). EKG is quite worrisome given the T wave inversions. Her chronic tobacco & etoh use are her CAD risk factors. I told her I do not want to blame her chest pain on anxiety in light of her EKG changes. Plan - NPO after MN tonight; stress echo in am. (2) Acute on chronic pancreatitis: Plan: acute component resolved biochemically and improving clinically. cont low fat diet. lipase again wnl. fluids stopped. triglycerides negative. pt reports no alcohol in some time. perhaps the pneumonia we see is viral and the same virus caused pancreatitis flare?? (3) Pancreatitis, chronic: Plan: follows with [facility] in [place] about [id number] cont creon see #1 above (4) Alcohol use disorder, moderate, in early remission: Plan: no signs of withdrawal she admitted to etoh intake in small quantities to admitting provider but denies such with me denied such with psychiatry team Continue folic acid/MVI/thiamine but increase latter to BID dosing while awaiting her B1 level (5) Generalized anxiety disorder with panic attacks: Plan: SEVERE she reports having an appoint in about 5 days with outpatient psychiatry to address this has been weaning on her klonipin prior to this admission added hydroxyzine for additional prn anxiety relief insomnia is severe as well psych saw in consult -added back remeron - appreciate their advice / recs (6) Nausea: Plan: PRN phenergan 2nd to #1, #2 improving (7) Portal vein thrombosis: Plan: Continue Eliquis 5mg BID Diagnosed at [facility] more than 1yr ago (8) Hypokalemia: Plan: Repleted Resolved (9) GERD (gastroesophageal reflux disease): Plan: continue PPI (10) Abnormal LFTs: Plan: LFTs stable on last check (11) Back pain, chronic: Plan: PT, OT (12) Smoker: Plan: Encourage cessation - current use is 1/2 PPD Daily marijuana use (medicinally - Patient has marijuana card) (13) Weight loss: Plan: Likely due to recurrent vomiting and poor nutrition in setting of chronic pancreatitis Can't rule out other factors contributing (14) Lower extremity weakness: Plan: Patient reports bilateral lower extremity weakness over the past several weeks with 2 falls PT / OT consult requested for evaluation and management MRI from 09/2021 [facility] only --- no foramen narrowing or other pathology B12 level (most recent) wnl Lyme titer/screen negative B1 level pending (B1 def can cause neuropathy); while awaiting level - thiamine 200mg BID Neuropathy of legs may be from chronic etoh however she is ambulating without difficulty this admission (15) DVT prophylaxis: Plan: Eliquis 5mg BID Plan stress echo in am Admission and Anticipated Discharge Date Admission Date: April 19, 2022 Subjective patient states that she had an episode of chest pain - about 0500/0600 this am - that lasted 1-2 hours substernal and a little to the left blames it on anxiety no reflux symptoms during the spell had a similar spell a few days ago which was associated with dyspnea no vomiting this am's episode self- resolved she has had other chest pain episodes over the last few weeks - again blames it on anxiety no family h/o CAD to her knowledge no family h/o PEs no pleuritic pain today tolerating her diet no vomiting - still some nausea and abd pain at times Review of Systems Review of Systems: gen - no fevers pulm - minimal/scant cough, no dyspnea GI - nausea, pain continue but not as severe; no diarrhea; no BM CV - see HPI psych - sleep is improved; less anxiety Physical Exam Physical Exam: gen - NAD, continues to look better each day mouth - MMM heart - RRR, s1 s2, no murmur chest - no pain to palpation over chest wall lungs - fine b/l basilar rales - mild at best today; no wheeze, no increased work of breathing abd - soft, NT, ND, BS+, no HSM ext - no edema, pulses 2+ b/l psych - a/o x 3, no signs of etoh withdrawal, no anxiety today Results & Data Results & Data ([facility]) Vital Signs (Past 12 Hours) Vital Signs Temp Pulse Resp BP Pulse Ox O2 Del Method 04/21/22 15:45 37.0 C 84 16 109/75 94 Room Air Laboratory Results Laboratory Results - last 24 hr 04/21/22 04/21/22 04/21/22 14:06 14:06 14:06 D-Dimer 310 Troponin I High Sens 2.7 Triglycerides 98 Lipase 36 Diagnostic Findings EKG - my reading - NSR, T wave inversions anteriorly - new in comparison to 2020 EKGs PG Care Time/CCT Total # of Minutes Spent Total Time Spent with Patient: Total time spent is greater than 50% in coordination of care (as documented) at patient's floor/unit and/or counseling patient: Coding Level of Care Code 00684 Subseq Hosp Care Lvl 2 Diagnoses Chest pain R07.9 Acute on chronic pancreatitis K85.90; K86.1 Pancreatitis, chronic K86.1 Alcohol use disorder, moderate, in early remission F10.21 Generalized anxiety disorder with panic attacks F41.1; F41.0 Nausea R11.0 Portal vein thrombosis I81 Hypokalemia E87.6 GERD (gastroesophageal reflux disease) K21.9 Abnormal LFTs R79.89 Back pain, chronic M54.9; G89.29 Smoker F17.200 Weight loss R63.4 Lower extremity weakness R29.898 DVT prophylaxis Z29.9
[2022-04-22] MEDS ORDERED: ONDANSETRON INJ 2 MG/ML 2 ML VIAL IV STA (00:11)
[2022-04-22] MEDS: AMPICILLIN/SULBACTAM SOD 3,000 MG in 0.9 % SODIUM CHLORIDE 100 ML IV SCH ×4 (03:05→21:07)
[2022-04-22] MEDS: HYDROmorphone INJ 0.5 MG/0.5 ML SYR IV PRN ×5 (03:12→21:23)
[2022-04-22] MEDS: PROMETHAZINE HCL 12.5 MG in SODIUM CHLORIDE 0.9% 50 ML IV PRN ×2 (03:39→22:04)
[2022-04-22] MEDS: hydrOXYzine HCl 25 MG TAB PO PRN ×2 (06:04→13:19)
[2022-04-22] MEDS: ONDANSETRON INJ 2 MG/ML 2 ML VIAL IV PRN ×2 (06:36→12:06)
[2022-04-22] MEDS: clonazePAM 1 MG TAB PO SCH ×2 (07:33→21:22)
[2022-04-22] MEDS: PANTOprazole 40 MG in SYRINGE 0 ML IV SCH (07:34)
[2022-04-22] MEDS: ADVANCED PROBIOTIC 1250 MG CAPSULE PO SCH (07:34)
[2022-04-22] MEDS: THIAMINE HCL 100 MG TAB PO SCH ×2 (07:35→21:09)
[2022-04-22] MEDS: PANCREAZE (LIPASE 10,500U) CAP PO SCH ×3 (07:35→21:08)
[2022-04-22] MEDS: APIXABAN 5 MG TABLET PO SCH ×2 (07:35→21:08)
[2022-04-22] MEDS: DOCUSATE SODIUM 100 MG CAP PO SCH ×2 (07:36→21:08)
[2022-04-22] MEDS: MULTIVITAMIN TAB PO SCH (07:36)
[2022-04-22] MEDS: SENNA 8.6 MG TAB PO SCH (07:36)
[2022-04-22] MEDS: POLYETHYLENE (MIRALAX) 17 GM PACK PO SCH (07:37)
[2022-04-22] MEDS: FOLIC ACID 1 MG TAB PO SCH (07:37)
--- NOTE | 2022-04-22 14:15 | Electrocardiogram Report ---
Test Reason : Blood Pressure : / mmHG Vent. Rate : 087 BPM Atrial Rate : 087 BPM P-R Int : 146 ms QRS Dur : 082 ms QT Int : 360 ms P-R-T Axes : 057 044 046 degrees QTc Int : 433 ms Normal sinus rhythm T wave abnormality, consider anterior ischemia Abnormal ECG When compared with ECG of 12-APR-2022 11:23, Nonspecific T wave abnormality now evident in Lateral leads Confirmed by Bry Quintana ([id number]) on 04/22/2022 2:14:45 PM Referred By: REFERRED SELF Confirmed By:Bry Quintana
--- NOTE | 2022-04-22 15:30 | XCELERA ---
[id number]___[id number]
[2022-04-22] MEDS ORDERED: KETOROLAC 30 MG/ML VIAL IV ONE (17:01)
[2022-04-22 17:31] LABS: Basophils # (auto) 0.05 K/uL (0-0.2); Basophils % (auto) 0.5 %; Eosinophils % (auto) 1.1 %; Hematocrit (blood only) 37.4 % (34.1-44.9); Hemoglobin 12.2 g/dl (12.0-16.0); Immature Granulocytes # (auto) 0.02 K/uL (0.00-0.02); Immature Granulocytes % (auto) 0.2 %; Lymphocytes # (auto) 2.04 K/uL (1.2-3.4); Lymphocytes % (auto) 21.9 %; Mean Corpuscular Hemoglobin 32.6 pg (25.0-34.0); Mean Corpuscular Hgb Conc 32.6 g/dL (32.0-36.0); Mean Platelet Volume 9.4 fL (9.4-12.3); Monocytes # (auto) 0.91 K/uL (0.24-0.82); Monocytes % (auto) 9.8 %; Neutrophils % (auto) 66.5 %; Platelet Count 463 K/uL (130-400); RDW Coefficient of Variation 15.7 % (11.5-14.5); RDW Standard Deviation 57.8 fL (36.4-46.3); Red Blood Count 3.74 M/uL (3.93-5.22); White Blood Count 9.32 K/ul (4.8-10.8)
[2022-04-22] MEDS ORDERED: KETOROLAC TROMETHAMINE 15 MG/ML VIAL IV ONE (17:45)
[2022-04-22 18:27] LABS: Anion Gap 5 (3-11); BUN Creatinine Ratio 2.6 (10-20); Blood Urea Nitrogen 2 mg/dl (6-23); C Reactive Protein < 0.50 mg/dl (0-0.5); Calcium 8.3 mg/dl (8.5-10.1); Carbon Dioxide 29 mmol/L (21-32); Chloride 104 mmol/L (98-107); Creatinine Clr Calc Pharmacy 79.8 ml/min; Est GFR (African American) 112.1 ml/min; Est GFR (Non-African American) 96.8 ml/min; Glucose 114 mg/dl (70-99(Fasting)); Potassium 3.6 mmol/L (3.5-5.1); Sodium 138 mmol/L (136-145)
--- NOTE | 2022-04-22 20:00 | Hospitalist Progress Note ---
Date of Service April 22, 2022 Assessment & Plan (1) Abnormal EKG: Plan: stress echo NEGATIVE for ischemia and no evidence of any structural heart disease. given her episodes of pleuritic chest pain x 1-2 weeks (which are worse with laying flat and improved sitting up) along with her abnormal EKGs I believe she has pericarditis. probably viral in etiology as her recent CT chest showed pulmonary infiltrates that had a viral appearance. the T wave inversions suggest she is in the "later stages" of pericarditis. gave dose of toradol today, and will start colchicine 0.6mg BID. will ask cardiology for their opinion tomorrow. (2) Chest pain: Plan: Trop neg. d-dimer neg (suspicion for VTE low due to Eliquis use). EKGs - T wave inversions -- but NEGATIVE stress echo today. see #1 above. (3) Acute on chronic pancreatitis: Plan: acute component resolved clinically & biochemically. cont low fat diet. last 2 lipase levels wnl. IV fluids d/c. triglycerides negative. pt reports no alcohol in some time. perhaps the pneumonia we see is viral and the same virus caused pancreatitis flare?? (4) Pancreatitis, chronic: Plan: follows with [facility] in [place] about [id number] cont creon see #1 above (5) Alcohol use disorder, moderate, in early remission: Plan: no signs of withdrawal she admitted to etoh intake in small quantities to admitting provider but denies such with me denied such with psychiatry team Continue folic acid/MVI/thiamine but increase latter to BID dosing while awaiting her B1 level (6) Generalized anxiety disorder with panic attacks: Plan: SEVERE she reports having an appoint in about 5 days with outpatient psychiatry to address this has been weaning on her klonipin prior to this admission added hydroxyzine for additional prn anxiety relief insomnia is severe as well psych saw in consult -added back remeron - appreciate their advice / recs (7) Nausea: Plan: PRN phenergan 2nd to pancreatitis improved (8) Portal vein thrombosis: Plan: Continue Eliquis 5mg BID Diagnosed at [facility] more than 1yr ago (9) Hypokalemia: Plan: Repleted Resolved (10) GERD (gastroesophageal reflux disease): Plan: continue PPI (11) Abnormal LFTs: Plan: most recent LFTs stable/wnl (12) Back pain, chronic: Plan: PT, OT (13) Smoker: Plan: Encourage cessation - current use is 1/2 PPD Daily marijuana use (medicinally - Patient has marijuana card) (14) Weight loss: Plan: Likely due to recurrent vomiting and poor nutrition in setting of chronic pancreatitis Can't rule out other factors contributing (15) Lower extremity weakness: Plan: Patient reports bilateral lower extremity weakness over the past several weeks with 2 falls PT / OT consult requested for evaluation and management MRI from 09/2021 [facility] only --- no foramen narrowing or other pathology B12 level (most recent) wnl Lyme titer/screen negative B1 level pending (B1 def can cause neuropathy); while awaiting level - thiamine 200mg BID Neuropathy of legs may be from chronic etoh however she is ambulating without difficulty this admission (16) DVT prophylaxis: Plan: Eliquis 5mg BID Plan watch overnight cardiology consult AM Admission and Anticipated Discharge Date Admission Date: April 19, 2022 Subjective patient states that during the stress test she had NO chest pain, chest pressure or dyspnea HOWEVER - she continues with mild pleuritic type pain - definitely worse when laying in bed does not note the pain when standing during my visit I placed her flat in bed she had pleuritic pain in her chest with such it got better upon raising the bed EKG obtained -- still with T wave abnormalities in the anterior leads; EKG changes NOT present earlier this month she has had the pleuritic pain for about 1-2 weeks no cough cont with mild nausea and mild stomach pain at times but no worse than previous and tolerating solids Review of Systems Review of Systems: gen - no fevers, no chills cv - see HPI pulm - no dyspnea, scant cough GI - no vomiting today Physical Exam Physical Exam: gen - NAD, looks good mouth - MMM heart - RRR, s1 s2, no murmur chest - no pain to palpation over chest wall lungs - fine b/l basilar rales are improved; no wheeze, no increased work of breathing abd - soft, NT, ND, BS+, no HSM ext - no edema, pulses 2+ b/l psych - a/o x 3, still no signs of etoh withdrawal Results & Data Results & Data ([facility]) Vital Signs (Past 12 Hours) Vital Signs Temp Pulse Resp BP Pulse Ox O2 Del Method 04/22/22 13:51 37.2 C 98 H 16 102/72 93 Room Air Laboratory Results Laboratory Results - last 24 hr 04/22/22 04/22/22 04/22/22 17:07 17:07 17:07 WBC 9.32 RBC 3.74 L Hgb 12.2 Hct 37.4 MCV 100.0 MCH 32.6 MCHC 32.6 RDW Std Deviation 57.8 H RDW Coeff of Jessica 15.7 H Plt Count 463 H MPV 9.4 Immature Gran % (Auto) 0.2 Neut % (Auto) 66.5 Lymph % (Auto) 21.9 Jack % (Auto) 9.8 Eos % (Auto) 1.1 Baso % (Auto) 0.5 Neut # (Auto) 6.20 Lymph # (Auto) 2.04 Jack # (Auto) 0.91 H Eos # (Auto) 0.10 Baso # (Auto) 0.05 Immature Gran # (Auto) 0.02 ESR 9 Sodium 138 Potassium 3.6 Chloride 104 Carbon Dioxide 29 Anion Gap 5 BUN 2 L Creatinine 0.76 Est Cr Clr Drug Dosing 79.8 Est GFR ( Amer) 112.1 Est GFR (Non-Af Amer) 96.8 BUN/Creatinine Ratio 2.6 L Glucose 114 H Calcium 8.3 L C-Reactive Protein < 0.50 Procalcitonin 04/22/22 17:07 WBC RBC Hgb Hct MCV MCH MCHC RDW Std Deviation RDW Coeff of Jessica Plt Count MPV Immature Gran % (Auto) Neut % (Auto) Lymph % (Auto) Jack % (Auto) Eos % (Auto) Baso % (Auto) Neut # (Auto) Lymph # (Auto) Jack # (Auto) Eos # (Auto) Baso # (Auto) Immature Gran # (Auto) ESR Sodium Potassium Chloride Carbon Dioxide Anion Gap BUN Creatinine Est Cr Clr Drug Dosing Est GFR ( Amer) Est GFR (Non-Af Amer) BUN/Creatinine Ratio Glucose Calcium C-Reactive Protein Procalcitonin 0.17 Diagnostic Findings EKG - my reading - anterior T wave flattening or inversions present; limb leads wnl; NSR in comparison to 2020 EKGs and EKGs in early March - T wave changes are new stress echo findings noted - neg for ischemia no pericardial effusion PG Care Time/CCT Total # of Minutes Spent Total Time Spent with Patient: Total time spent is greater than 50% in coordination of care (as documented) at patient's floor/unit and/or counseling patient: Coding Level of Care Code 76150 Subseq Hosp Care Lvl 3 Diagnoses Abnormal EKG R94.31 Chest pain R07.9 Acute on chronic pancreatitis K85.90; K86.1 Pancreatitis, chronic K86.1 Alcohol use disorder, moderate, in early remission F10.21 Generalized anxiety disorder with panic attacks F41.1; F41.0 Nausea R11.0 Portal vein thrombosis I81 Hypokalemia E87.6 GERD (gastroesophageal reflux disease) K21.9 Abnormal LFTs R79.89 Back pain, chronic M54.9; G89.29 Smoker F17.200 Weight loss R63.4 Lower extremity weakness R29.898 DVT prophylaxis Z29.9
[2022-04-22] MEDS: MELATONIN 3 MG TAB PO SCH (21:08)
[2022-04-22] MEDS: MIRTAZAPINE TAB 15 MG TAB PO SCH (21:09)
[2022-04-22] MEDS: COLCHICINE 0.6 MG TAB PO SCH (21:22)
[2022-04-23] MEDS: AMPICILLIN/SULBACTAM SOD 3,000 MG in 0.9 % SODIUM CHLORIDE 100 ML IV SCH ×4 (03:53→21:41)
[2022-04-23] MEDS: HYDROmorphone INJ 0.5 MG/0.5 ML SYR IV PRN ×5 (04:02→21:59)
[2022-04-23] MEDS: ONDANSETRON INJ 2 MG/ML 2 ML VIAL IV PRN ×3 (04:02→19:43)
[2022-04-23] MEDS: clonazePAM 1 MG TAB PO SCH ×2 (07:34→21:48)
[2022-04-23] MEDS: PANTOprazole 40 MG in SYRINGE 0 ML IV SCH (07:34)
[2022-04-23] MEDS: APIXABAN 5 MG TABLET PO SCH ×2 (07:35→21:50)
[2022-04-23] MEDS: COLCHICINE 0.6 MG TAB PO SCH (07:35)
[2022-04-23] MEDS: PANCREAZE (LIPASE 10,500U) CAP PO SCH ×3 (07:35→21:49)
[2022-04-23] MEDS: FOLIC ACID 1 MG TAB PO SCH (07:35)
[2022-04-23] MEDS: ADVANCED PROBIOTIC 1250 MG CAPSULE PO SCH (07:36)
[2022-04-23] MEDS: THIAMINE HCL 100 MG TAB PO SCH ×2 (07:36→21:50)
[2022-04-23] MEDS: SENNA 8.6 MG TAB PO SCH (07:36)
[2022-04-23] MEDS: MULTIVITAMIN TAB PO SCH (07:36)
[2022-04-23] MEDS: POLYETHYLENE (MIRALAX) 17 GM PACK PO SCH (07:36)
[2022-04-23] MEDS: DOCUSATE SODIUM 100 MG CAP PO SCH ×2 (07:37→21:50)
[2022-04-23] MEDS: PROMETHAZINE HCL 12.5 MG in SODIUM CHLORIDE 0.9% 50 ML IV PRN ×3 (07:45→23:46)
--- NOTE | 2022-04-23 10:49 | Cardiology Consultation ---
Date of Consultation April 23, 2022 Assessment & Plan (1) Atypical chest pain: (2) Abnormal EKG: (3) Alcohol abuse: (4) Portal vein thrombosis: (5) Anticoagulant long-term use: Plan 41-year-old woman with history of alcohol overuse and multiple gastrointestinal issues who is chronically anticoagulated (apixaban) for portal vein thrombosis, presents with nonspecific symptoms which include pleuritic chest pain. ECG does not show ischemic changes, troponin was normal, and her stress echocardiogram showed no ischemia at higher heart rates. Thus, ischemic heart disease is not an active consideration for her ongoing symptoms. Pulmonary emboli seem very unlikely given her chronic anticoagulation, normal right heart findings, and negative D-dimer. Reassured patient regarding the absence of evidence for cardiac or pulmonary vascular pathology. No further cardiac work-up in the absence of progressive or more characteristic symptoms. Thank you for this consultation History of Present Illness Reason for Consultation: ?pericarditis, pleuritic CP, abnl EKG Requesting Physician: Camilo Martin MD Attending Physician: Camilo Martin MD History of Present Illness 41-year-old with history of GERD, peptic ulcer disease, portal venous thrombosis (on apixaban chronically), pancreatitis in the setting of EtOH overuse, and other medical problems who has noted several weeks of abdominal and chest discomfort with nausea and occasional vomiting and who was readmitted 04/18/2022 for these symptoms after brief hospitalization where she was treated with narcotics and antiemetics, given her chest discomfort cardiology evaluation was pursued as part of her work-up. Evaluation this admission included a negative D-dimer, ECG with only nonspecific T wave flattening, negative troponin, and a stress echocardiogram performed yesterday which showed no evidence of ischemia at a low workload (4 minutes on the Woodrow protocol) but appropriate heart rate (89% maximum predicted heart rate). Resting echo showed EF 60 to 65% with normal right ventricular size and function and no significant valvular pathology or wall motion abnormalities. She still felt weak and somewhat nauseous this morning. She still has chest and abdominal discomfort without abdominal tenderness. Her chest discomfort at times and a pleuritic component (worse on inspiration) but not a positional component. No relationship of chest symptoms to activity. No new somatic complaints at the time of our evaluation this morning Allergies Allergy/AdvReac Type Severity Reaction Status Date / Time buspirone [From BuSpar] Allergy Severe Unconscious, Verified 04/18/22 11:26 seizures quetiapine [From Seroquel] Allergy Severe Unconscious, Verified 04/18/22 11:26 seizures citalopram [From Celexa] AdvReac Intermediate Vomiting Verified 04/18/22 11:26 fluoxetine AdvReac Intermediate Migraine Verified 04/18/22 11:26 morphine AdvReac Intermediate "MAKES ME Verified 04/18/22 11:26 SICK(VOMITING)" vilazodone [From Viibryd] AdvReac Vomiting Verified 04/18/22 11:26 Home Medications Medication Instructions Recorded Confirmed Type multivitamin 1 tab PO DAILY 03/18/19 04/18/22 History mecobalamin (vitamin B12) 1,000 1,000 mcg PO PM 11/10/19 04/18/22 History mcg chewable tablet (B12 Active) apixaban 5 mg tablet (Eliquis) 5 mg PO Q12 04/12/21 04/18/22 History potassium chloride 20 mEq 20 meq PO DAILY #1 tab 04/14/21 04/18/22 Rx tablet,extended release(part/cryst) (Klor-Con M) thiamine HCl (vitamin B1) 100 mg 200 mg PO DAILY 04/17/21 04/18/22 History tablet pqjits-[id number]-mzknvtv 3 cap PO TID Abdominal Discomfort 06/05/21 04/18/22 Rx 36,000-114,000-180,000 unit 90 days #810 caps capsule,delay rel (Creon) melatonin 10 mg capsule 10 mg PO HS PRN Insomnia 09/04/21 04/18/22 History hydroxyzine HCl 50 mg tablet 50 mg PO Q6H PRN anxiety #60 tabs 12/18/21 04/18/22 Rx sumatriptan succinate 100 mg 100 mg PO .COMPLEX PRN Migraine 12/18/21 04/18/22 Rx tablet (Imitrex) Headache #16 tabs ondansetron 4 mg disintegrating 4 mg PO Q6H PRN Nausea #30 tabs 02/15/2204/18 Rx tablet folic acid 1 mg tablet 1 mg PO DAILY #90 tabs 03/22/22 04/18/22 Rx pantoprazole 40 mg tablet,delayed 40 mg PO BID #180 tabs 06/24/22 07/21/22 Rx release pantoprazole 20 mg tablet,delayed 20 mg PO DAILY #20 tabs 04/10/22 04/18/22 Rx release (Protonix) promethazine 12.5 mg tablet 12.5 mg PO QID PRN allergy 04/10/22 04/18/22 Rx symptoms #10 tabs cephalexin 500 mg capsule 500 mg PO Q6 #12 caps 04/15/22 04/18/22 Rx clonazepam 1 mg tablet 1 mg PO BID #30 tabs 04/15/22 04/18/22 Rx mirtazapine 15 mg tablet 7.5 mg PO HS #30 tabs 04/15/22 04/18/22 Rx spironolactone 25 mg tablet 12.5 mg PO DAILY #30 tabs 04/15/22 04/18/22 Rx baclofen 20 mg tablet 20 mg PO TID PRN Muscle Spasm 04/18/22 04/18/22 History clindamycin phosphate 1 % topical 1 applic topical DAILY 04/18/22 04/18/22 History gel Patient History Medical History (Updated 04/23/22 @ 10:46 by Armando Cedillo MD) Acne Acute gallstone pancreatitis Acute on chronic pancreatitis Acute pancreatitis Alcohol abuse Anxiety and depression Back pain, chronic Chronic neck pain GERD (gastroesophageal reflux disease) Hiatal hernia Insomnia 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 Gala Willett History of lumpectomy of right breast BENIGN History of tooth extraction Family History Father Family history of diabetes mellitus Myocardial infarction Stroke Hypertension Grandfather (Maternal) Family history of diabetes mellitus Grandmother (Maternal) Family history of diabetes mellitus Hypertension Cancer Mother Hypothyroidism Grandfather (Paternal) Cancer Heart problem Grandmother (Paternal) Hypertension Denies family history of Ovarian cancer Prostate cancer Breast cancer Colorectal cancer Social History Smoking Status: Current every day smoker Tobacco Type: Cigarettes Cigarettes Per Day: less than 1/2 pack a day; Second Hand Exposure: No; Hx Alcohol Use: Yes Alcohol type: hard liquor Hx Substance Use: Yes Last Used Substance: Just Prior to Arrival Last Used Substance Other:: MEDICAL MARIJAUNA PRESCRIBED Substance Use Type Other:: Smokes Marijuanna Preferred Language: Peruvian Communication Ability: Effective Visual Impairment: No Limitations Hearing Ability: Normal Biological Lab Technician Required: No Beliefs That Will Affect Care: None marital status: Single Current Living Situation: Parent Current Living Situation Comment: lives at home with mom current occupational status: employed How many Children do You have: 0 Feels Safe at Home: Yes Safety Concerns: Feels Safe At This Time Childhood Exposure to Second-Hand Smoke: No Dental Care, Regularly: Yes Physical Activity Frequency: Does not Exercise Seatbelt Use: always Sunscreen Use: Yes Do you think of yourself as: straight/heterosexual Assistive Devices: None Physical Exam Physical Exam: Adult white female in no acute distress. Normotensive. Pulse 92 bpm and regular. Respirations unlabored. Skin: no ecchymoses or generalized lesions. HEENT: unremarkable. Neck: Jugular is pulse difficult to evaluate but not obviously elevated, no carotid bruits. Lungs: clear. Cardiac: regular rhythm, normal S1 and S2, no obvious murmur or gallop. No rub. Abdomen: Nondistended and nontender. Extremities: no edema, pulses intact. Neurologic: normal affect and conversation, nonfocal. Results & Data ([facility]) Vital Signs (Past 12 Hours) Vital Signs Temp Pulse Resp BP Pulse Ox O2 Del Method 04/23/22 07:27 98.1 F 92 H 16 109/77 94 Room Air Laboratory Results Normal electrolytes, BUN 2, creatinine 0.76. High-sensitivity troponin negative Diagnostic Findings ECG showed sinus rhythm with nonspecific cardial T wave flattening, otherwise unremarkable. Compared with admission ECG, no dynamic changes. Chest x-ray showed no acute process. Stress echocardiogram as noted in HPI. PG Care Time/CCT Total # of Minutes Spent Total Time Spent with Patient: Total time spent is greater than 50% in coordination of care (as documented) at patient's floor/unit and/or counseling patient: Coding Level of Care Code 38134 Inpt Consult Level 4 Diagnoses Atypical chest pain R07.89 Abnormal EKG R94.31 Alcohol abuse F10.10 Portal vein thrombosis I81 Anticoagulant long-term use Z79.01
--- NOTE | 2022-04-23 12:27 | Electrocardiogram Report ---
Test Reason : Blood Pressure : / mmHG Vent. Rate : 093 BPM Atrial Rate : 093 BPM P-R Int : 142 ms QRS Dur : 082 ms QT Int : 346 ms P-R-T Axes : 041 007 017 degrees QTc Int : 430 ms Normal sinus rhythm Left atrial enlargement Low voltage QRS Nonspecific T wave abnormality Anterior leads Abnormal ECG When compared with ECG of 21-APR-2022 14:42, No significant change Confirmed by Armando Cedillo ([id number]) on 04/23/2022 12:27:32 PM Referred By: REFERRED SELF Confirmed By:Armando Cedillo
--- NOTE | 2022-04-23 12:39 | Electrocardiogram Report ---
Test Reason : Blood Pressure : / mmHG Vent. Rate : 089 BPM Atrial Rate : 089 BPM P-R Int : 140 ms QRS Dur : 074 ms QT Int : 352 ms P-R-T Axes : 048 -05 002 degrees QTc Int : 428 ms Normal sinus rhythm Left atrial enlargement Low voltage QRS Nonspecific T wave abnormality Anterior leads Abnormal ECG When compared with ECG of 22-APR-2022 16:53, No significant change was found Confirmed by Armando Cedillo ([id number]) on 04/23/2022 12:38:44 PM Referred By: REFERRED SELF Confirmed By:Armando Cedillo
[2022-04-23] MEDS: hydrOXYzine HCl 25 MG TAB PO PRN ×2 (13:46→23:46)
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
[2022-04-23] MEDS: GABAPENTIN 100 MG CAP PO SCH ×2 (16:56→21:48)
[2022-04-23] MEDS ORDERED: POTASSIUM CHLORIDE CRTAB 20 MEQ TABCR PO STA (17:00)
[2022-04-23] MEDS: MELATONIN 3 MG TAB PO SCH (21:48)
[2022-04-23] MEDS: MIRTAZAPINE TAB 15 MG TAB PO SCH (21:51)
[2022-04-24] MEDS: HYDROmorphone INJ 0.5 MG/0.5 ML SYR IV PRN ×2 (06:20→11:18)
[2022-04-24] MEDS: PROMETHAZINE HCL 12.5 MG in SODIUM CHLORIDE 0.9% 50 ML IV PRN ×3 (06:23→22:10)
[2022-04-24 07:30] LABS: Albumin Globulin Ratio 1.3 (0.9-2); Albumin Level 2.9 gm/dl (3.4-5.0); BUN Creatinine Ratio 3.4 (10-20); Bilirubin,Total 0.3 mg/dl (0.2-1.0); Calcium 8.2 mg/dl (8.5-10.1); Creatinine Clr Calc Pharmacy 104.5 ml/min; Est GFR (African American) 131.8 ml/min; Est GFR (Non-African American) 113.7 ml/min; Globulin 2.2 gm/dl (2.5-4.0); Magnesium 1.8 mg/dl (1.7-2.4); Phosphorus 3.7 mg/dl (2.5-4.9); Potassium 3.9 mmol/L (3.5-5.1); Total Protein 5.1 gm/dl (6.0-8.3)
[2022-04-24] MEDS: PANTOprazole 40 MG in SYRINGE 0 ML IV SCH (08:27)
[2022-04-24] MEDS: THIAMINE HCL 100 MG TAB PO SCH ×2 (08:27→21:38)
[2022-04-24] MEDS: ADVANCED PROBIOTIC 1250 MG CAPSULE PO SCH (08:27)
[2022-04-24] MEDS: APIXABAN 5 MG TABLET PO SCH ×2 (08:28→21:40)
[2022-04-24] MEDS: PANCREAZE (LIPASE 10,500U) CAP PO SCH ×3 (08:28→21:40)
[2022-04-24] MEDS: DOCUSATE SODIUM 100 MG CAP PO SCH ×2 (08:28→21:39)
[2022-04-24] MEDS: SENNA 8.6 MG TAB PO SCH (08:29)
[2022-04-24] MEDS: FOLIC ACID 1 MG TAB PO SCH (08:29)
[2022-04-24] MEDS: MULTIVITAMIN TAB PO SCH (08:29)
[2022-04-24] MEDS: GABAPENTIN 100 MG CAP PO SCH ×3 (08:29→21:38)
[2022-04-24] MEDS: POLYETHYLENE (MIRALAX) 17 GM PACK PO SCH (08:29)
[2022-04-24] MEDS: clonazePAM 1 MG TAB PO SCH ×2 (08:33→21:33)
[2022-04-24] MEDS: AMPICILLIN/SULBACTAM SOD 3,000 MG in 0.9 % SODIUM CHLORIDE 100 ML IV SCH ×3 (09:29→21:34)
[2022-04-24] MEDS: ONDANSETRON INJ 2 MG/ML 2 ML VIAL IV PRN ×2 (10:22→17:45)
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
[2022-04-24] MEDS: hydrOXYzine HCl 25 MG TAB PO PRN (13:39)
[2022-04-24] MEDS: oxyCODONE HCL IR 5 MG TAB (IMMEDIATE RELEASE) PO PRN ×2 (14:59→19:33)
[2022-04-24] MEDS: MELATONIN 3 MG TAB PO SCH (21:33)
[2022-04-24] MEDS: MIRTAZAPINE TAB 15 MG TAB PO SCH (21:39)
[2022-04-25] MEDS: oxyCODONE HCL IR 5 MG TAB (IMMEDIATE RELEASE) PO PRN ×4 (00:40→13:04)
[2022-04-25] MEDS: ONDANSETRON INJ 2 MG/ML 2 ML VIAL IV PRN ×2 (00:41→08:43)
[2022-04-25] MEDS: AMPICILLIN/SULBACTAM SOD 3,000 MG in 0.9 % SODIUM CHLORIDE 100 ML IV SCH ×3 (03:52→14:29)
[2022-04-25] MEDS: PROMETHAZINE HCL 12.5 MG in SODIUM CHLORIDE 0.9% 50 ML IV PRN ×2 (04:50→13:44)
[2022-04-25 07:10] LABS: Albumin Globulin Ratio 1.4 (0.9-2); Albumin Level 2.9 gm/dl (3.4-5.0); BUN Creatinine Ratio 8.5 (10-20); Bilirubin,Total 0.2 mg/dl (0.2-1.0); Calcium 8.1 mg/dl (8.5-10.1); Creatinine Clr Calc Pharmacy 102.8 ml/min; Est GFR (Non-African American) 113.1 ml/min; Globulin 2.1 gm/dl (2.5-4.0); Potassium 3.9 mmol/L (3.5-5.1)
[2022-04-25] MEDS: clonazePAM 1 MG TAB PO SCH (08:27)
[2022-04-25] MEDS: THIAMINE HCL 100 MG TAB PO SCH (08:27)
[2022-04-25] MEDS: PANTOprazole 40 MG in SYRINGE 0 ML IV SCH (08:27)
[2022-04-25] MEDS: MULTIVITAMIN TAB PO SCH (08:27)
[2022-04-25] MEDS: ADVANCED PROBIOTIC 1250 MG CAPSULE PO SCH (08:27)
[2022-04-25] MEDS: SENNA 8.6 MG TAB PO SCH (08:27)
[2022-04-25] MEDS: PANCREAZE (LIPASE 10,500U) CAP PO SCH ×2 (08:28→13:04)
[2022-04-25] MEDS: APIXABAN 5 MG TABLET PO SCH (08:28)
[2022-04-25] MEDS: GABAPENTIN 100 MG CAP PO SCH ×2 (08:28→13:05)
[2022-04-25] MEDS: FOLIC ACID 1 MG TAB PO SCH (08:28)
[2022-04-25] MEDS: POLYETHYLENE (MIRALAX) 17 GM PACK PO SCH (08:28)
[2022-04-25] MEDS: DOCUSATE SODIUM 100 MG CAP PO SCH (08:28)
[2022-04-25] MEDS: hydrOXYzine HCl 25 MG TAB PO PRN (13:04)
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
== END 2022-04-25 17:36 | disposition home or self-care (01) | DRG 438 ==
LOC: 3E 03:41 → ED 03:41 → 3E 11:43 → SUATTDRO 04-19 19:30
DX: F43.10 Post-traumatic stress disorder, unspecified; M54.9 Dorsalgia, unspecified; K21.9 Gastro-esophageal reflux disease without esophagitis; G47.00 Insomnia, unspecified; Z88.5 Allergy status to narcotic agent; K86.0 Alcohol-induced chronic pancreatitis; Z83.3 Family history of diabetes mellitus; J12.9 Viral pneumonia, unspecified; J69.0 Pneumonitis due to inhalation of food and vomit; F12.90 Cannabis use, unspecified, uncomplicated; K70.30 Alcoholic cirrhosis of liver without ascites; Z97.5 Presence of (intrauterine) contraceptive device; F17.210 Nicotine dependence, cigarettes, uncomplicated; F10.21 Alcohol dependence, in remission; K85.20 Alcohol induced acute pancreatitis without necrosis or infection; K86.1 Other chronic pancreatitis; F41.0 Panic disorder [episodic paroxysmal anxiety]; I81 Portal vein thrombosis; R07.89 Other chest pain; E87.6 Hypokalemia; F41.1 Generalized anxiety disorder; I31.9 Disease of pericardium, unspecified; Z79.01 Long term (current) use of anticoagulants

== ENCOUNTER 2022-11-12 08:31 | Inpatient (IN) ==
[2022-11-12] MEDS ORDERED: ONDANSETRON INJ 2 MG/ML 2 ML VIAL IV STA (09:12)
[2022-11-12] MEDS ORDERED: SODIUM CHLORIDE 0.9% 1000ML 1,000 ML IV ONE (09:12)
[2022-11-12] MEDS ORDERED: FAMOTIDINE 20MG IV PUSH 20 MG/5 ML SYR IV STA (09:12)
[2022-11-12 10:01] LABS: Basophils # (auto) 0.07 K/uL (0-0.2); Basophils % (auto) 0.5 %; Eosinophils # (auto) 0.03 K/uL (0-0.50); Eosinophils % (auto) 0.2 %; Hematocrit (blood only) 44.3 % (37.0-47.0); Hemoglobin 15.3 g/dl (12.0-16.0); Immature Granulocytes # (auto) 0.06 K/uL (0.01-0.20); Immature Granulocytes % (auto) 0.4 %; Lymphocytes # (auto) 1.25 K/uL (1.2-3.4); Lymphocytes % (auto) 8.9 %; Mean Corpuscular Hemoglobin 31.2 pg (25.0-34.0); Mean Corpuscular Hgb Conc 34.5 g/dL (32.0-36.0); Mean Corpuscular Volume 90.4 fL (80.0-100.0); Mean Platelet Volume 9.5 fL (9.4-12.4); Monocytes # (auto) 0.98 K/uL (0.11-0.59); Neutrophils # (auto) 11.65 K/uL (1.40-6.50); Platelet Count 315 K/uL (130-400); RDW Coefficient of Variation 16.5 % (11.5-14.5); RDW Standard Deviation 54.9 fL (36.4-46.3); White Blood Count 14.04 K/ul (4.8-10.8)
[2022-11-12 10:16] LABS: Pregnancy Test, Serum Negative (Negative)
[2022-11-12 10:20] LABS: Albumin Level 4.2 gm/dl (3.4-5.0); Calcium 9.3 mg/dl (8.5-10.1); Potassium 3.7 mmol/L (3.5-5.1)
[2022-11-12] MEDS ORDERED: diphenhydrAMINE 50 MG/ML VIAL IV STA (10:22)
[2022-11-12] MEDS ORDERED: PROCHLORPERAZINE 2 ML IV ONE (10:22)
[2022-11-12] MEDS ORDERED: MULTI-VITAMIN INFUSION 10 ML, THIAMINE HCL 100 MG, FOLIC ACID 1 MG in SODIUM CHLORIDE 0... IV ONE (10:22)
[2022-11-12] MEDS ORDERED: LORazepam 2 MG/1 ML VIAL IV STA (10:22)
[2022-11-12 10:27] LABS: Albumin Globulin Ratio 1.3 (0.9-2); BUN Creatinine Ratio 22.4 (10-20); Creatinine Clr Calc Pharmacy 104.5 ml/min; Est GFR (African American) 131.8 ml/min; Est GFR (Non-African American) 113.7 ml/min; Globulin 3.2 gm/dl (2.5-4.0); Total Protein 7.4 gm/dl (6.0-8.3)
[2022-11-12] MEDS ORDERED: ACETAMINOPHEN 1,000 MG/100 ML VIAL IV STA (10:27)
[2022-11-12 10:39] LABS: Influenza A virus by PCR Negative (Neg); Influenza B virus by PCR Negative (Neg); RSV by PCR Negative (Neg); SARS CoV2 RNA(COVID-19) Ceph NEGATIVE (Negative)
[2022-11-12 10:43] LABS: Appearance Urine Clear (Clear); Bacteria Urine Automated Negative (Negative); Blood Urine 1+ (Negative); Color Urine Dark Yellow; Epithelial Cell Urine Auto >30 /lpf (0-5); Glucose Urine UA Negative (Negative); Ketones Urine 3+ (Negative); Leukocyte Esterase Urine Trace (Negative); Nitrite Urine Negative (Negative); Protein Urine Trace (Negative); Specific Gravity Urine 1.022 (1.000-1.030); Urobilinogen Urine Negative (Negative); pH Urine 5.5 (4.5-7.5)
[2022-11-12 10:44] LABS: Bilirubin Urine 1+ (Negative)
--- NOTE | 2022-11-12 10:53 | XRay Report ---
XR wrist RT min 3V routine CLINICAL HISTORY: pain fall TECHNIQUE: 4 views of the right wrist were obtained. Comparison: None available at the time of this dictation. FINDINGS: Redemonstration of a minimally displaced intra-articular fracture of the distal radius. Joint spaces are well-preserved. Soft tissue swelling is seen about the wrist. IMPRESSION: Redemonstration of minimally displaced intra-articular distal radial fracture with associated soft ti ssue swelling. ACT 112: Negative or not required by law. Electronically signed by: Armand Cohen M.D. 11/12/2022 10:52 AM
[2022-11-12] MEDS ORDERED: OPTIRAY 350 100ml IV ONE ×2 (11:01→14:00)
--- NOTE | 2022-11-12 11:11 | XRay Report ---
SINGLE VIEW CHEST CLINICAL HISTORY: Generalized abdominal pain. Nausea and vomiting FINDINGS: An AP, portable, upright chest radiograph is compared to study dated 04/18/2022. The cardiom ediastinal silhouette is unremarkable. There is left basilar consolidation with elevation of the left hemidiaphragm. The right lung appears clear. No large pleural effusion or pneumothorax is seen. The bony thorax is grossly intact. IMPRESSION: Left basilar consolidation could represent atelectasis and/or pneumonia. Clinical correla tion will be required and radiographic follow-up to resolution is recommended. ACT 112: Negative or not required by law. Electronically signed by: Austin Hines M.D. 11/12/2022 11:10 AM
--- NOTE | 2022-11-12 11:20 | CT Scan Report ---
CT SCAN OF THE ABDOMEN AND PELVIS WITH IV CONTRAST CLINICAL HISTORY: Nausea and vomiting. Upper abdominal pain. COMPARISON STUDY: Abdominal CT dated 04/18/2022. TECHNIQUE: Following the IV administration of 91 cc of Optiray 350, CT scan of the abdomen and pelvi s is performed from the lung bases to the proximal femora. Images are reviewed in the axial, sagittal , and coronal planes. IV contrast was administered without complication. A dose lowering technique wa s utilized adhering to the principles of ALARA. CT DOSE: 300.34 mGy.cm FINDINGS: Lung bases: The heart is normal in size and without pericardial effusion. There is elevation of the l eft hemidiaphragm with subsegmental atelectasis at the left lung base. Patchy ground glass consolidat ion is seen at the right lung base. No pleural effusion is identified. Liver: The contrast-enhanced liver is top normal in size and demonstrates diffusely diminished attenu ation indicating severe steatosis. There is no intrahepatic biliary ductal dilatation. The hepatic ve ins and portal veins are patent. Gallbladder: Surgically absent noting clips in the gallbladder fossa. Spleen: Normal in size and attenuation. Pancreas: There is moderate glandular atrophy of the pancreas. Calcifications within the pancreatic h ead suggests chronic pancreatitis. There is mild infiltration and fluid adjacent to the pancreatic he ad suggesting mild acute pancreatitis. The gland enhances throughout. The duct is normal in caliber. No organized peripancreatic fluid collection is seen. Adrenal glands: Unremarkable. Kidneys: The contrast enhanced kidneys are normal in size and without hydronephrosis. The kidneys enh ance symmetrically. Small bilateral nonobstructing renal calculi measuring up to [address] one is seen. Abdominal vasculature: The abdominal aorta is normal in course and caliber noting mild age advanced a therosclerotic calcification. Bowel: There is no bowel obstruction. Some mucosal fat deposition throughout the colon is nonspecific and has been described in the setting of chronic inflammation. Question mild diffuse wall thickening of the colon versus underdistention. The appendix is well-visualized and normal. Peritoneum: There is no intraperitoneal free air or abdominal ascites. There is a small fat-containin g umbilical hernia with a navel piercing in place. Lymphadenopathy: None. Pelvic viscera: The bladder is normal as visualized. The uterus is normal in appearance noting an int rauterine device in place. No adnexal lesion is seen. A 2.5 cm dominant follicle is noted in the left ovary. Skeletal structures: No lytic or blastic lesions are seen. IMPRESSION: 1. Findings suggest mild acute on chronic pancreatitis. Correlate with clinical and laboratory findin gs. 2. Severe hepatic steatosis. 3. Mild patchy groundglass consolidation is seen at the right lung base. Correlate clinically for sherrie dence of a mild infectious/inflammatory pneumonitis. 4. Underdistention versus mild wall thickening of the colon. Correlate clinically for evidence of a m ild nonspecific colitis. 5. Bilateral nephrolithiasis. 6. Additional findings as above. ACT 112: Negative or not required by law. Electronically signed by: Austin Hines M.D. 11/12/2022 11:19 AM
[2022-11-12] MEDS ORDERED: HYDROmorphone INJ 0.5 MG/0.5 ML SYR IV STA ×2 (12:19→15:13)
[2022-11-12] MEDS ORDERED: PROMETHAZINE 25 MG/51 ML BAG IV STA (12:19)
--- NOTE | 2022-11-12 12:49 | History & Physical Report ---
Date of Service November 12, 2022 Assessment & Plan (1) Chronic pancreatitis: Plan: Acute on chronic pancreatitis, 2nd to recent alcohol use -- last etoh in March -- reports several glasses of wine daily over the past year w/ father new dx parkinsons. Associated n/v, diarrhea, elevated LFTs 2nd to alcohol. Hx cholecystecomy ~>5 years ago. Lipase normal on admit but CTAP c/w mild acute on chronic pancreatitis Admit to medical Additional 1L LR bolus now, continue LR @150cc/hr x 2 additional L NPO I&O Pain control -- got 0.25mg diluadid in ER. Reports issues /w morphine (avoiding given elevated LFTs) ordered 0.5mg IV q4h mild-moderate pain, 1mg q4h severe pain -- first dose 0.5mg x1 NOW ordered given pain level on exam/discomfort Antiemetics prn Protonix IV BID in meantime -- stat dose Check lipid panel w/ AM labs given prior elevation in TRG level, also check A1c Checking procalcitonin level given WBC elevation however no fevers and holding off on any abx at this time -- checking CT chest given new elevation hemidiaphragm to ensure no compression. Did have prior elevation on imaging Monitor labs in AM (2) Abnormal LFTs: Plan: TB wnl, elevated LFTs likely 2nd to alcohol use. Hx cholecystectomy Check lipid/A1c w/ AM labs Holding home baclofen Using Dilaudid instead of morphine Avoid hepatotoxic medications Rec avoidance of alcohol use, urine DS pending AWSS scale to monitor for any DT, ativan available as needed Monitor LFTs on repeat (3) GERD (gastroesophageal reflux disease): Plan: on daily PPI at home -- placed on PPI IV BID hx PUD Follows with [facility] and will need outpt f/u (4) Wrist fracture: Plan: secondary to fall pain control as above continue brace consulted Dr Martinez given patient following w/ him and worsening displacement on imaging (5) Diarrhea: Plan: reported diarrhea imaging w/ nonspecific colitis check stool PCR/monitor diarrhea (6) Portal vein thrombosis: Plan: hx of such, remains on eliquis 5mg BID -- continued as not actively vomiting can repeat portal vein US if warranted but she states she sees them routinely and likely remain on lifelong (7) Anxiety and depression: Plan: on clonazepam 1mg TID -- will continue prn ativan available as well for AWSS will hold fluoxetine/mirtazapine for now given LFTs -- hopefully can resume tomorrow (8) Marijuana use: Plan: medical marijuana use, ?cyclic vomiting however she reports hasn't used in several weeks (9) Elevated hemidiaphragm: Plan: ct chest for eval Plan DVT proph : continue home Eliquis BID as long as no vomiting -- if occurs can utilize chemo proph w/ Lovenox SQ History of Present Illness Chief Complaint: intractable n/v, etoh use Primary Care Provider: Diane Sorenson MD 41yo w/ PMHx significant for pancreatitis (due to alochol use) presented to ER w/ intractable nausea/vomiting for the past week after relapsing on alcohol use after father recently diagnosed with Parkinson's. Last etoh relapse in March last year. Patient seen in [facility], stating 9-10/10 abdominal pain. Generalized weakness from poor PO intake, nausea and vomiting over the past week. Stated has been having a couple glasses of wine daily since the news w/ reports of having several glasses of wine daily for about a week. She does have medical marijuana but hasn't used in a couple weeks and has been trying to stop. Noted cough at home but no sputum production. No reported fever but did have some peeling of her skin and her mother told her her fever must have broken. + diarrhea, no bleeding. No recent sick contacts. FLU/RSV/COVID testing negative. She states she has not had much appetite in the past several days/poor PO intake. She also states she had fall at home when putting blanket on the hardwood floors for her dog and got up and fell onto her right wrist again, which she had been following with Dr Martinez for in the past. She is on eliquis for Hx of what sounds like portal vein thrombosis and has been taking. She routinely follows with GI, Nahed Aguilera from [facility]. Lipase normal but CTAP w/ findings suggestive of mild acute on chronic pancreatitis. Imaging also with concerns Mild patchy ground glass consolidation is seen at the right lung base. Correlate clinically for evidence of a mild infectious/inflammatory pneumonitis.Underdistention vs mild wall thickening of colon, ?mild nonspecific colitis. B/l nephrolithiasis. CXR w/ Left basilar consolidation could represent atelectasis and/or pneumonia. Clinical correlation will be required and radiographic follow-up to resolution is recommended -- given n/v, ?aspiration. Following w/ Dr Martinez for orthopedic concerns-- imaging R wrist w/ re- demonstration of minimally displaced intra-articular distal radial fracture with associated soft tissue swelling. WBC elevation to 14k on admit -- ? reactive from n/v -- added procalcitonin to labs. Chemistry w/ Na 135, Chl 92, Anion gap 19 (likely from alcohol), normal BUN/Cr. LFT elevation w/ normal TB 1.0, but AST 247, ALT 101, ALP 223. Lipase 28. UA does not appear infected, no bacteria. Given benadryl, compazine, ativan, hydromorphone .25mg IV in ER, thiamin/MV, famotidine. Getting CT chest w/ contrast for new elevation L hemidiaphragm. If negative would get MRI. Denies any current chills. No chest pain but does have some reflux. Nausea, but no current vomiting. NAD at present but mildly uncomfortable appearing and requesting medication at this time. Allergies Allergy/AdvReac Type Severity Reaction Status Date / Time buspirone [From BuSpar] Allergy Severe Unconscious, Verified 10/25/22 14:46 seizures quetiapine [From Seroquel] Allergy Severe Unconscious, Verified 10/25/22 14:46 seizures citalopram [From Celexa] AdvReac Intermediate Vomiting Verified 10/25/22 14:46 morphine AdvReac Intermediate "MAKES ME Verified 10/25/22 14:46 SICK(VOMITING)" vilazodone [From Viibryd] AdvReac Vomiting Verified 10/25/22 14:46 Home Medications Medication Instructions Recorded Confirmed Type multivitamin 1 tab PO DAILY 03/18/19 10/25/22 History mecobalamin (vitamin B12) 1,000 1,000 mcg PO PM 11/10/19 10/25/22 History mcg chewable tablet (B12 Active) apixaban 5 mg tablet (Eliquis) 5 mg PO Q12 04/12/21 10/25/22 History potassium chloride 20 mEq 20 meq PO DAILY #1 tab 04/14/21 10/25/22 Rx tablet,extended release(part/cryst) (Klor-Con M) thiamine HCl (vitamin B1) 100 mg 200 mg PO DAILY 04/17/21 10/25/22 History tablet melatonin 10 mg capsule 10 mg PO HS PRN Insomnia 09/04/21 10/25/22 History pantoprazole 40 mg tablet,delayed 40 mg PO DAILY #90 tabs 05/09/22 10/25/22 Rx release magnesium citrate 100 mg tablet 300 mg PO DAILY 05/23/22 10/25/22 History baclofen 5 mg tablet 5 mg PO BID #60 tabs 05/27/22 10/25/22 Rx mirtazapine 15 mg tablet 15 mg PO HS #30 tabs 07/04/22 10/25/22 Rx fluticasone propionate 50 1 spray intranasal BID #16 grams 07/18/22 10/25/22 Rx mcg/actuation nasal spray,suspension prochlorperazine maleate 5 mg 5 mg PO Q6H PRN nausea and 07/30/22 10/25/22 Rx tablet (Compazine) vomiting #20 tabs clindamycin phosphate 1 % topical 1 applic topical DAILY #30 grams 09/04/22 10/25/22 Rx gel folic acid 1 mg tablet 1 mg PO DAILY #90 tabs 09/04/22 10/25/22 Rx COVID-19 antigen test (COVID-19 #8 ea 09/13/22 10/25/22 Rx At-Home Test kit) [id number] 3 cap PO TID Abdominal Discomfort 09/16/22 10/25/22 Rx 36,000-114,000-180,000 unit 90 days #810 caps capsule,delay rel (Creon) ondansetron 4 mg disintegrating See Rx Instructions .Route 09/25/22 10/25/22 Rx tablet .COMPLEX #30 tabs methocarbamol 750 mg tablet 750 mg PO TID #90 tabs 10/04/22 10/25/22 Rx sumatriptan succinate 100 mg tablet See Rx Instructions .Route 10/04/22 10/25/22 Rx .COMPLEX #16 tabs promethazine 25 mg tablet See Rx Instructions .Route 10/18/22 10/25/22 Rx .COMPLEX #10 tabs clonazepam 1 mg tablet 1 mg PO TID #90 tabs 10/25/22 10/25/22 Rx fluoxetine 40 mg capsule 40 mg PO DAILY #30 caps 10/25/22 10/25/22 Rx baclofen 20 mg tablet See Rx Instructions .Route 11/01/22 Rx .COMPLEX #90 tabs Past Med/Surg History Medical History Acne Acute gallstone pancreatitis Acute pancreatitis Alcohol abuse Anxiety and depression Back pain, chronic Chronic neck pain Distal radius fracture, right Fracture of distal phalanx of finger Fracture of middle phalanx of finger of right hand Fracture of third metacarpal bone of right hand GERD (gastroesophageal reflux disease) Hiatal hernia Insomnia Kidney failure 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 Gala Willett History of lumpectomy of right breast BENIGN History of tooth extraction Family History Father Family history of diabetes mellitus Myocardial infarction Stroke Hypertension Grandfather (Maternal) Family history of diabetes mellitus Grandmother (Maternal) Family history of diabetes mellitus Hypertension Cancer Mother Hypothyroidism Grandfather (Paternal) Cancer Heart problem Grandmother (Paternal) Hypertension Denies family history of Ovarian cancer Prostate cancer Breast cancer Colorectal cancer Social History Smoking Status: Current every day smoker Tobacco Type: Cigarettes Cigarettes Per Day: less than 1/2 pack a day; Second Hand Exposure: No; Hx Alcohol Use: Yes Alcohol type: hard liquor Hx Substance Use: Yes Last Used Substance: Just Prior to Arrival Last Used Substance Other:: [facility] PRESCRIBED Substance Use Type Other:: Smokes Marijuanna Preferred Language: Togolese Communication Ability: Effective Visual Impairment: No Limitations Hearing Ability: Normal Construction Area Manager Required: No Beliefs That Will Affect Care: None marital status: Single Current Living Situation: Parent Current Living Situation Comment: lives at home with mom current occupational status: employed How many Children do You have: 0 Feels Safe at Home: Yes Childhood Exposure to Second-Hand Smoke: No Diet Comment: regular Dental Care, Regularly: Yes Physical Activity Frequency: Does not Exercise Seatbelt Use: always Sunscreen Use: Yes Do you think of yourself as: straight/heterosexual Assistive Devices: None Review of Systems Review of Systems: All systems reviewed & are unremarkable except as noted in HPI & below Physical Exam Physical Exam: General: WD female sitting up in bed, appears slightly older than stated age, mildly uncomfortable appearing HEENT: eyes anicteric, pupils equal in size/reactive to light, trachea midline without deviation Resp: bibasilar crackles, elevation L hemidiaphragm, no cough, no rales, 97% on RA CV: regular, slightly tachycardic 105bpm, no significant m/r/g, no pitting edema/calf tenderness, pulses palpable GI: +BS throughout, generalized discomfort reported but tender to palpation epigastric region, voluntary guarding at times but no rigidity or rebound : no murillo MSK: moves all extremities, no focal deficits, R wrist in brace, decreased ability to squeeze hand secondary to pain but pulses palpable, fingers mobile and sensation intact CN intact grossly Psych: AOx3, cooperative Skin: cool, dry, perfused Results & Data Results & Data ([facility]) Vital Signs (Past 12 Hours) Vital Signs Temp Pulse Resp BP Pulse Ox O2 Del Method 11/12/22 12:00 105 H 22 127/88 97 11/12/22 10:30 112 H 19 118/96 95 11/12/22 10:26 113 H 11/12/22 09:38 111 H 20 119/98 98 11/12/22 08:42 36.5 C 136 H 20 140/90 95 Room Air Laboratory Results 11/12/22 11/12/22 11/12/22 Range/Units 12:10 12:10 10:40 WBC (4.8-10.8) K/ul RBC (4.20-5.40) M/uL Hgb (12.0-16.0) g/dl Hct (37.0-47.0) % MCV (80.0-100.0) fL MCH (25.0-34.0) pg MCHC (32.0-36.0) g/dL RDW Std Deviation (36.4-46.3) fL RDW Coeff of Jessica (11.5-14.5) % Plt Count (130-400) K/uL MPV (9.4-12.4) fL Immature Gran % (Auto) % Neut % (Auto) % Lymph % (Auto) % [place] % (Auto) % Eos % (Auto) % Baso % (Auto) % Neut # (Auto) (1.40-6.50) K/uL Lymph # (Auto) (1.2-3.4) K/uL [place] # (Auto) (0.11-0.59) K/uL Eos # (Auto) (0-0.50) K/uL Baso # (Auto) (0-0.2) K/uL Immature Gran # (Auto) (0.01-0.20) K/uL Sodium (136-145) mmol/L Potassium (3.5-5.1) mmol/L Chloride (98-107) mmol/L Carbon Dioxide (21-32) mmol/L Anion Gap (3-11) BUN (6-23) mg/dl Creatinine (0.6-1.2) mg/dl Est Cr Clr Drug Dosing ml/min Est GFR ( Amer) ml/min Est GFR (Non-Af Amer) ml/min BUN/Creatinine Ratio (10-20) Glucose (70-99(Fasting)) mg/dl Calcium (8.5-10.1) mg/dl Total Bilirubin (0.2-1.0) mg/dl AST (13-39) U/L ALT (7-52) U/L Alkaline Phosphatase (34-104) U/L Total Protein (6.0-8.3) gm/dl Albumin (3.4-5.0) gm/dl Globulin (2.5-4.0) gm/dl Albumin/Globulin Ratio (0.9-2) Lipase (11-82) U/L Procalcitonin HCG, Qual (Negative) Urine Color Urine Appearance (Clear) Urine pH (4.5-7.5) Ur Specific [place] (1.000-1.030) Urine Protein (Negative) Urine Glucose (UA) (Negative) Urine Ketones (Negative) Urine Blood (Negative) Urine Nitrite (Negative) Urine Bilirubin (Negative) Urine Urobilinogen (Negative) Ur Leukocyte Esterase (Negative) Urine WBC (Auto) (0-5) /hpf Urine RBC (Auto) (0-4) /hpf U Hyaline Cast (Auto) (0-5) /lpf U Epithel Cells (Auto) (0-5) /lpf Urine Bacteria (Auto) (Negative) Urine Opiates Screen Neg (Neg) Ur Methadone, Qual Neg (Neg) Urine Barbiturates Neg (Neg) Ur Phencyclidine (PCP) Neg (Neg) U Amphetamin/Meth Scrn Neg (Neg) MDMA (Ecstasy) Screen Neg (Neg) U Benzodiazepines Scrn Neg (Neg) Ur Cocaine Metabolite Neg (Neg) U Marijuana (THC) Screen Pos H (Neg) U Marijuana THC Carboxy Pending Drug Screen Comment Pending Ethyl Alcohol mg/dL < 10.0 (<10.0) mg/dl SARS-CoV-2 (PCR) (Negative) Influenza Type A (PCR) (Neg) Influenza Type B (PCR) (Neg) RSV (RT-PCR) (Neg) 11/12/22 11/12/22 11/12/22 Range/Units 09:40 09:30 09:30 WBC (4.8-10.8) K/ul RBC (4.20-5.40) M/uL Hgb (12.0-16.0) g/dl Hct (37.0-47.0) % MCV (80.0-100.0) fL MCH (25.0-34.0) pg MCHC (32.0-36.0) g/dL RDW Std Deviation (36.4-46.3) fL RDW Coeff of Jessica (11.5-14.5) % Plt Count (130-400) K/uL MPV (9.4-12.4) fL Immature Gran % (Auto) % Neut % (Auto) % Lymph % (Auto) % [place] % (Auto) % Eos % (Auto) % Baso % (Auto) % Neut # (Auto) (1.40-6.50) K/uL Lymph # (Auto) (1.2-3.4) K/uL [place] # (Auto) (0.11-0.59) K/uL Eos # (Auto) (0-0.50) K/uL Baso # (Auto) (0-0.2) K/uL Immature Gran # (Auto) (0.01-0.20) K/uL Sodium (136-145) mmol/L Potassium (3.5-5.1) mmol/L Chloride (98-107) mmol/L Carbon Dioxide (21-32) mmol/L Anion Gap (3-11) BUN (6-23) mg/dl Creatinine (0.6-1.2) mg/dl Est Cr Clr Drug Dosing ml/min Est GFR ( Amer) ml/min Est GFR (Non-Af Amer) ml/min BUN/Creatinine Ratio (10-20) Glucose (70-99(Fasting)) mg/dl Calcium (8.5-10.1) mg/dl Total Bilirubin (0.2-1.0) mg/dl AST (13-39) U/L ALT (7-52) U/L Alkaline Phosphatase (34-104) U/L Total Protein (6.0-8.3) gm/dl Albumin (3.4-5.0) gm/dl Globulin (2.5-4.0) gm/dl Albumin/Globulin Ratio (0.9-2) Lipase (11-82) U/L Procalcitonin Pending HCG, Qual (Negative) Urine Color Dark Yellow Urine Appearance Clear (Clear) Urine pH 5.5 (4.5-7.5) Ur Specific [place] 1.022 (1.000-1.030) Urine Protein Trace H (Negative) Urine Glucose (UA) Negative (Negative) Urine Ketones 3+ H (Negative) Urine Blood 1+ H (Negative) Urine Nitrite Negative (Negative) Urine Bilirubin 1+ H (Negative) Urine Urobilinogen Negative (Negative) Ur Leukocyte Esterase Trace H (Negative) Urine WBC (Auto) 1-5 (0-5) /hpf Urine RBC (Auto) 5-10 H (0-4) /hpf U Hyaline Cast (Auto) 1-5 (0-5) /lpf U Epithel Cells (Auto) >30 H (0-5) /lpf Urine Bacteria (Auto) Negative (Negative) Urine Opiates Screen (Neg) Ur Methadone, Qual (Neg) Urine Barbiturates (Neg) Ur Phencyclidine (PCP) (Neg) U Amphetamin/Meth Scrn (Neg) MDMA (Ecstasy) Screen (Neg) U Benzodiazepines Scrn (Neg) Ur Cocaine Metabolite (Neg) U Marijuana (THC) Screen (Neg) U Marijuana THC Carboxy Drug Screen Comment Ethyl Alcohol mg/dL (<10.0) mg/dl SARS-CoV-2 (PCR) NEGATIVE (Negative) Influenza Type A (PCR) Negative (Neg) Influenza Type B (PCR) Negative (Neg) RSV (RT-PCR) Negative (Neg) 11/12/22 11/12/22 11/12/22 Range/Units 09:30 09:30 09:30 WBC 14.04 H (4.8-10.8) K/ul RBC 4.90 (4.20-5.40) M/uL Hgb 15.3 (12.0-16.0) g/dl Hct 44.3 (37.0-47.0) % MCV 90.4 (80.0-100.0) fL MCH 31.2 (25.0-34.0) pg MCHC 34.5 (32.0-36.0) g/dL RDW Std Deviation 54.9 H (36.4-46.3) fL RDW Coeff of Jessica 16.5 H (11.5-14.5) % Plt Count 315 (130-400) K/uL MPV 9.5 (9.4-12.4) fL Immature Gran % (Auto) 0.4 % Neut % (Auto) 83.0 % Lymph % (Auto) 8.9 % [place] % (Auto) 7.0 % Eos % (Auto) 0.2 % Baso % (Auto) 0.5 % Neut # (Auto) 11.65 H (1.40-6.50) K/uL Lymph # (Auto) 1.25 (1.2-3.4) K/uL [place] # (Auto) 0.98 H (0.11-0.59) K/uL Eos # (Auto) 0.03 (0-0.50) K/uL Baso # (Auto) 0.07 (0-0.2) K/uL Immature Gran # (Auto) 0.06 (0.01-0.20) K/uL Sodium 135 L (136-145) mmol/L Potassium 3.7 (3.5-5.1) mmol/L Chloride 92 L (98-107) mmol/L Carbon Dioxide 24 (21-32) mmol/L Anion Gap 19 H (3-11) BUN 13 (6-23) mg/dl Creatinine 0.58 L (0.6-1.2) mg/dl Est Cr Clr Drug Dosing 104.5 ml/min Est GFR ( Amer) 131.8 ml/min Est GFR (Non-Af Amer) 113.7 ml/min BUN/Creatinine Ratio 22.4 H (10-20) Glucose 119 H (70-99(Fasting)) mg/dl Calcium 9.3 (8.5-10.1) mg/dl Total Bilirubin 1.0 (0.2-1.0) mg/dl AST 247 H (13-39) U/L ALT 101 H (7-52) U/L Alkaline Phosphatase 223 H (34-104) U/L Total Protein 7.4 (6.0-8.3) gm/dl Albumin 4.2 (3.4-5.0) gm/dl Globulin 3.2 (2.5-4.0) gm/dl Albumin/Globulin Ratio 1.3 (0.9-2) Lipase 28 (11-82) U/L Procalcitonin HCG, Qual Negative (Negative) Urine Color Urine Appearance (Clear) Urine pH (4.5-7.5) Ur Specific [place] (1.000-1.030) Urine Protein (Negative) Urine Glucose (UA) (Negative) Urine Ketones (Negative) Urine Blood (Negative) Urine Nitrite (Negative) Urine Bilirubin (Negative) Urine Urobilinogen (Negative) Ur Leukocyte Esterase (Negative) Urine WBC (Auto) (0-5) /hpf Urine RBC (Auto) (0-4) /hpf U Hyaline Cast (Auto) (0-5) /lpf U Epithel Cells (Auto) (0-5) /lpf Urine Bacteria (Auto) (Negative) Urine Opiates Screen (Neg) Ur Methadone, Qual (Neg) Urine Barbiturates (Neg) Ur Phencyclidine (PCP) (Neg) U Amphetamin/Meth Scrn (Neg) MDMA (Ecstasy) Screen (Neg) U Benzodiazepines Scrn (Neg) Ur Cocaine Metabolite (Neg) U Marijuana (THC) Screen (Neg) U Marijuana THC Carboxy Drug Screen Comment Ethyl Alcohol mg/dL (<10.0) mg/dl SARS-CoV-2 (PCR) (Negative) Influenza Type A (PCR) (Neg) Influenza Type B (PCR) (Neg) RSV (RT-PCR) (Neg) Diagnostic Findings Abdomen/Pelvis CT 11/12/22 10:22 CT SCAN OF THE ABDOMEN AND PELVIS WITH IV CONTRAST CLINICAL HISTORY: Nausea and vomiting. Upper abdominal pain. COMPARISON STUDY: Abdominal CT dated 04/18/2022. TECHNIQUE: Following the IV administration of 91 cc of Optiray 350, CT scan of the abdomen and pelvis is performed from the lung bases to the proximal femora. Images are reviewed in the axial, sagittal, and coronal planes. IV contrast was administered without complication. A dose lowering technique was utilized adhering to the principles of ALARA. CT DOSE: 300.34 mGy.cm FINDINGS: Lung bases: The heart is normal in size and without pericardial effusion. There is elevation of the left hemidiaphragm with subsegmental atelectasis at the left lung base. Patchy ground glass consolidation is seen at the right lung base. No pleural effusion is identified. Liver: The contrast-enhanced liver is top normal in size and demonstrates diffusely diminished attenuation indicating severe steatosis. There is no intrahepatic biliary ductal dilatation. The hepatic veins and portal veins are patent. Gallbladder: Surgically absent noting clips in the gallbladder fossa. Spleen: Normal in size and attenuation. Pancreas: There is moderate glandular atrophy of the pancreas. Calcifications within the pancreatic head suggests chronic pancreatitis. There is mild infiltration and fluid adjacent to the pancreatic head suggesting mild acute pancreatitis. The gland enhances throughout. The duct is normal in caliber. No organized peripancreatic fluid collection is seen. Adrenal glands: Unremarkable. Kidneys: The contrast enhanced kidneys are normal in size and without hydronephrosis. The kidneys enhance symmetrically. Small bilateral nonobstructing renal calculi measuring up to 3 mm. No ureteral stone is seen. Abdominal vasculature: The abdominal aorta is normal in course and caliber noting mild age advanced atherosclerotic calcification. Bowel: There is no bowel obstruction. Some mucosal fat deposition throughout the colon is nonspecific and has been described in the setting of chronic inflammation. Question mild diffuse wall thickening of the colon versus underdistention. The appendix is well-visualized and normal. Peritoneum: There is no intraperitoneal free air or abdominal ascites. There is a small fat-containing umbilical hernia with a navel piercing in place. Lymphadenopathy: None. Pelvic viscera: The bladder is normal as visualized. The uterus is normal in appearance noting an intrauterine device in place. No adnexal lesion is seen. A 2.5 cm dominant follicle is noted in the left ovary. Skeletal structures: No lytic or blastic lesions are seen. IMPRESSION: 1. Findings suggest mild acute on chronic pancreatitis. Correlate with clinical and laboratory findings. 2. Severe hepatic steatosis. 3. Mild patchy groundglass consolidation is seen at the right lung base. Correlate clinically for evidence of a mild infectious/inflammatory pneumonitis. 4. Underdistention versus mild wall thickening of the colon. Correlate clinically for evidence of a mild nonspecific colitis. 5. Bilateral nephrolithiasis. 6. Additional findings as above. ACT 112: Negative or not required by law. Electronically signed by: Austin Hines M.D. 11/12/2022 11:19 AM Chest X-Ray 11/12/22 10:22 SINGLE VIEW CHEST CLINICAL HISTORY: Generalized abdominal pain. Nausea and vomiting FINDINGS: An AP, portable, upright chest radiograph is compared to study dated 04/18/2022. The cardiomediastinal silhouette is unremarkable. There is left basilar consolidation with elevation of the left hemidiaphragm. The right lung appears clear. No large pleural effusion or pneumothorax is seen. The bony thorax is grossly intact. IMPRESSION: Left basilar consolidation could represent atelectasis and/or pneumonia. Clinical correlation will be required and radiographic follow-up to resolution is recommended. ACT 112: Negative or not required by law. Electronically signed by: Austin Hines M.D. 11/12/2022 11:10 AM Wrist X-Ray 11/12/22 10:27 XR wrist RT min 3V routine CLINICAL HISTORY: pain fall TECHNIQUE: 4 views of the right wrist were obtained. Comparison: None available at the time of this dictation. FINDINGS: Redemonstration of a minimally displaced intra-articular fracture of the distal radius. Joint spaces are well-preserved. Soft tissue swelling is seen about the wrist. IMPRESSION: Redemonstration of minimally displaced intra-articular distal radial fracture with associated soft tissue swelling. ACT 112: Negative or not required by law. Electronically signed by: Armand Cohen M.D. 11/12/2022 10:52 AM Supervising Physician Co-Signing Physician Notes I personally saw and examined the patient. I verified all hammonds points and agree with Alva Diaz PA-C with the following exceptions and/or additions: 41 year old female presents to the ER with 2 week of epigastric pain O/E HS RRR, no murmurs, Chest CTAB, Abdo epigastric, no rebound or guarding A/P Acute on chronic alcoholic pancreatitis - Additional LR bolus, then 150ml/hr overnight. NPO. Pain and anti-nausea medications. Elevated left hemidiaphragm - Not present on prior CXR in March 2022. On review of Abdo MRI in Jun appears to be present on that. Therefore occurred somewhere inbetween those images. 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
[2022-11-12 13:00] LABS: Amphetamines+Metham, Urine Neg (Neg); Barbiturates, Urine Neg (Neg); Benzodiazepine, Urine Neg (Neg); Cocaine, Urine Neg (Neg); MDMA (Ecstacy), Urine Neg (Neg); Methadone, Urine Neg (Neg); Opiate, Urine Neg (Neg); Phencyclidine, Urine Neg (Neg)
[2022-11-12] MEDS ORDERED: PANTOprazole 40 MG in SYRINGE 0 ML IV ONE (13:21)
--- NOTE | 2022-11-12 14:16 | CT Scan Report ---
CT chest diagnostic w con CLINICAL HISTORY: new L hemidiaphragm elevation TECHNIQUE: Multidetector row helical CT of the chest was performed with intravenous contrast. Coronal and sagittal reformations were obtained. Automated dose lowering techniques and/or adjustment accord ing to patient size were utilized for this exam. CT DOSE: 223.26 mGycm Comparison: Comparison is made to chest radiograph 11/12/2022 FINDINGS: Lungs and pleura: An azygos fissure is incidentally noted. Atelectasis is seen in the left lower lobe corresponding to opacity seen on prior chest radiograph. There are a few groundglass opacities favor ing the upper lobes Heart and pericardium: Heart size is normal. No pericardial effusion. Vessels: Unremarkable. Mediastinum and bj: Unremarkable. Chest wall and lower neck: Unremarkable. Abdomen: For findings below the diaphragm, please refer to CT of the abdomen dated the same. Bones: Degenerative changes in the thoracic spine. Anterior wedge deformity of T12 is noted. IMPRESSION: A few groundglass opacities are seen. The upper lobes, these may represent infectious/inflammatory pr ocess. Previously noted left lower lung airspace opacity represents atelectasis. ACT 112: Negative or not required by law. Electronically signed by: Armand Cohen M.D. 11/12/2022 2:15 PM
--- NOTE | 2022-11-12 14:49 | Emergency Department Note ---
Impression & Plan Acute on chronic pancreatitis, Intractable nausea and vomiting, Transaminitis, Leukocytosis ED Provider Note NAME: ADA DYSON AGE: 41 SEX: F ARRIVES VIA: Walk-In INFORMANT: Patient ED PROVIDER(S): Bunny Israel MD CHIEF COMPLAINT: n/v, abdominal pain. PLAN: Disposition: Admit MEDICAL DECISION MAKING: The patient is a pleasant 41-year-old woman with a past medical history of alcohol abuse/dependence, chronic pancreatitis, migraines, marijuana use diso rder, portal vein thrombosis who presents to the emergency department via walk- in for evaluation of intractable nausea and vomiting over the past week with upper abdominal pain in the setting of having a relapse of her alcohol consumption over the past week which she attributes to receiving news that her father has Parkinson's disease. She reports that she had been sober since March when she had her last relapse. As an aside she reports she did have a mechanical fall when she tripped over her dog several days ago onto her right hand which she had injured in June where she suffered a third metacarpal fracture and distal radius fracture. She is worried this could be broken again and has been wearing a wrist lacer. She denies any fevers, chills, new cough, congestion. She reports having loose stool. She denies bloody or black stool. On arrival the patient is uncomfortable but no acute distress, afebrile heart in the 130s and vital signs otherwise stable. She appears clinically dry. She has mild epigastric discomfort without discrete tenderness. Chest x-ray with question of left basilar consolidation better characterized on CT of the abdomen pelvis and chest which suggest more likely left basilar atelectasis though note is made of bilateral upper lobe groundglass opacity suggestive of pneumonia. CT and pelvis further demonstrates acute on chronic pancreatitis. WBC 14K nonspecific. H/H and platelets within normal limits. Chemistry without metabolic acidosis, with bicarbonate of 24. BUN/creatinine> 20 consistent with the patient's clinically dry appearance. LFTs are elevated compared to recent but within prior range of values with AST, ALT and alk phos: 247, 101, 223, respectively. Lipase is not elevated. Procalcitonin is not significantly elevated. hCG negative. UA with 3+ ketones consistent with the patient's dehydration otherwise no convincing evidence of infection. Urine drug screen was positive for THC and otherwise unremarkable. Medical alcohol was undetectable. COVID-19, influenza and RSV PCR's were negative. Upon reevaluation patient denied any significant treatment following 2L IV fluid hydration, famotidine, Zofran, diphenhydramine, Compazine, Ativan. Heart rate had improved however. Given the patient's acute on chronic pancreatitis she did agree with plan for admission for further management. Of note, x-ray of the patient's right wrist today demonstrates her previously noted distal radius fracture. Case discussed with Alva Diaz, PAC with [facility] Li hospitalist, who will evaluate the patient for admission. Further management per admitting team. Triage Nursing notes reviewed and agree them. Prior/outside medical records reviewed Vital Signs: reviewed Differential diagnosis: Gastroenteritis, food borne illness, infections, appendicitis, diverticulitis, inflammatory bowel disease, obstruction, GI bleed, biliary pathology, volvulus, as well as other pathologies. ER treatment provided: See below. Diagnostics interpreted by me: ECG: None Cardiac Monitoring: An order for continuous cardiac monitoring was placed and demonstrated sinus tachycardia, 133 bpm, no ectopy. Laboratory studies: See below Imaging studies: See below Consultation(s): CAROLINE Trejo with [facility] hospitalist. HPI: The patient is a pleasant 41-year-old woman with a past medical history of alcohol abuse/dependence, chronic pancreatitis, migraines, marijuana use disorder, portal vein thrombosis who presents to the emergency department via walk-in for evaluation of intractable nausea and vomiting over the past week with upper abdominal pain in the setting of having a relapse of her alcohol consumption over the past week which she attributes to receiving news that her father has Parkinson's disease. She reports that she had been sober since March when she had her last relapse. As an aside she reports she did have a mechanical fall when she tripped over her dog several days ago onto her right hand which she had injured in June where she suffered a third metacarpal fracture and distal radius fracture. She is worried this could be broken again and has been wearing a wrist lacer. She denies any fevers, chills, new cough, congestion. She reports having loose stool. She denies bloody or black stool. ROS: See above HPI for pertinent positives & negatives. A total of 10 systems reviewed and were otherwise negative. VITALS:See Below PHYSICAL EXAMINATION: GENERAL: Awake, alert, uncomfortable-appearing, in no distress HENT: Normocephalic, atraumatic. Oropharynx with dry mucous membranes and otherwise unremarkable. EYES: Normal conjunctiva. Sclera non-icteric. NECK: Supple. No nuchal rigidity. FROM. No JVD. RESPIRATORY: Clear to auscultation. CARDIAC: Regular rate, normal rhythm. Extremities warm and well perfused. Pulses equal. ABDOMEN: Soft, non-distended. Mild epigastric discomfort without discrete tenderness to palpation. No rebound or guarding. No masses. RECTAL: Deferred. MUSCULOSKELETAL: Chest examination reveals no tenderness. The back is symmetrical on inspection without obvious abnormality. There is no CVA tenderness to palpation. No joint edema. Mild ttp of the dorsal radial aspect of the right wrist. LOWER EXTREMITIES: Calves are equal size bilaterally and non-tender. No edema. No discoloration. NEURO: Normal sensorium. No sensory or motor deficits noted. SKIN: No rash or jaundice noted. 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 Gala Willett History of lumpectomy of right breast BENIGN History of tooth extraction Family History Father Family history of diabetes mellitus Myocardial infarction Stroke Hypertension Grandfather (Maternal) Family history of diabetes mellitus Grandmother (Maternal) Family history of diabetes mellitus Hypertension Cancer Mother Hypothyroidism Grandfather (Paternal) Cancer Heart problem Grandmother (Paternal) Hypertension Denies family history of Ovarian cancer Prostate cancer Breast cancer Colorectal cancer Social History Smoking Status: Current every day smoker Tobacco Type: Cigarettes Cigarettes Per Day: less than 1/2 pack a day; Second Hand Exposure: No; Hx Alcohol Use: Yes Alcohol type: hard liquor Hx Substance Use: Yes Last Used Substance: Just Prior to Arrival Last Used Substance Other:: MEDICAL MARIJAUNA PRESCRIBED Substance Use Type Other:: Smokes Kurt Preferred Language: Yakut Communication Ability: Effective Visual Impairment: No Limitations Hearing Ability: Normal Wound Care Specialist Required: No Beliefs That Will Affect Care: None marital status: Single Current Living Situation: Parent Current Living Situation Comment: lives at home with mom current occupational status: employed How many Children do You have: 0 Feels Safe at Home: Yes Childhood Exposure to Second-Hand Smoke: No Diet Comment: regular Dental Care, Regularly: Yes Physical Activity Frequency: Does not Exercise Seatbelt Use: always Sunscreen Use: Yes Do you think of yourself as: straight/heterosexual Assistive Devices: None Allergies Allergies Allergy/AdvReac Type Severity Reaction Status Date / Time buspirone [From BuSpar] Allergy Severe Unconscious, Verified 10/25/22 14:46 seizures quetiapine [From Seroquel] Allergy Severe Unconscious, Verified 10/25/22 14:46 seizures citalopram [From Celexa] AdvReac Intermediate Vomiting Verified 10/25/22 14:46 morphine AdvReac Intermediate "MAKES ME Verified 10/25/22 14:46 SICK(VOMITING)" vilazodone [From Viibryd] AdvReac Vomiting Verified 10/25/22 14:46 Home Meds Home Medications Medication Instructions Recorded Confirmed multivitamin 1 tab PO DAILY 03/18/19 10/25/22 mecobalamin (vitamin B12) 1,000 1,000 mcg PO PM 11/10/19 10/25/22 mcg chewable tablet (B12 Active) apixaban 5 mg tablet (Eliquis) 5 mg PO Q12 04/12/21 10/25/22 thiamine HCl (vitamin B1) 100 mg 200 mg PO DAILY 04/17/21 10/25/22 tablet melatonin 10 mg capsule 10 mg PO HS PRN Insomnia 09/04/21 10/25/22 magnesium citrate 100 mg tablet 300 mg PO DAILY 05/23/22 10/25/22 Previous Rx's Medication Instructions Recorded potassium chloride 20 mEq 20 meq PO DAILY #1 tab 04/14/21 tablet,extended release(part/cryst) (Klor-Con M) pantoprazole 40 mg tablet,delayed 40 mg PO DAILY #90 tabs 05/09/22 release baclofen 5 mg tablet 5 mg PO BID #60 tabs 05/27/22 mirtazapine 15 mg tablet 15 mg PO HS #30 tabs 07/04/22 fluticasone propionate 50 1 spray intranasal BID #16 grams 07/18/22 mcg/actuation nasal spray,suspension prochlorperazine maleate 5 mg 5 mg PO Q6H PRN nausea and 07/30/22 tablet (Compazine) vomiting #20 tabs clindamycin phosphate 1 % topical 1 applic topical DAILY #30 grams 09/04/22 gel folic acid 1 mg tablet 1 mg PO DAILY #90 tabs 09/04/22 COVID-19 antigen test (COVID-19 #8 ea 09/13/22 At-Home Test kit) plhtth-[id number] 3 cap PO TID Abdominal Discomfort 09/16/22 36,000-114,000-180,000 unit 90 days #810 caps capsule,delay rel (Creon) ondansetron 4 mg disintegrating See Rx Instructions .Route 09/25/22 tablet .COMPLEX #30 tabs methocarbamol 750 mg tablet 750 mg PO TID #90 tabs 10/04/22 sumatriptan succinate 100 mg tablet See Rx Instructions .Route 10/04/22 .COMPLEX #16 tabs promethazine 25 mg tablet See Rx Instructions .Route 10/18/22 .COMPLEX #10 tabs clonazepam 1 mg tablet 1 mg PO TID #90 tabs 10/25/22 fluoxetine 40 mg capsule 40 mg PO DAILY #30 caps 10/25/22 baclofen 20 mg tablet See Rx Instructions .Route 11/01/22 .COMPLEX #90 tabs Results & Data (ED) Vital Signs Vital Signs - 24 hr 11/12/22 08:42 11/12/22 09:38 11/12/22 10:26 Temperature 36.5 C Temperature Source Temporal Artery Scan Pulse Rate 136 H 111 H 113 H Pulse Rate from SpO2 Sensor 109 H Respiratory Rate 20 20 Respiratory Effort / Characteristics Non-Labored Respiratory Depth Normal Blood Pressure 140/90 119/98 Blood Pressure Mean 106 105 Pulse Oximetry 95 98 Oxygen Delivery Method Room Air Sepsis Recent Fever Within 48 Hours No Sepsis New/Unexplained Change in Mental Status N/A Sepsis Action Taken by Nursing No Action Required 11/12/22 10:30 11/12/22 12:00 Temperature Temperature Source Pulse Rate 112 H 105 H Pulse Rate from SpO2 Sensor 113 H Respiratory Rate 19 22 Respiratory Effort / Characteristics Respiratory Depth Blood Pressure 118/96 127/88 Blood Pressure Mean 103 101 Pulse Oximetry 95 97 Oxygen Delivery Method Sepsis Recent Fever Within 48 Hours Sepsis New/Unexplained Change in Mental Status Sepsis Action Taken by Nursing Laboratory Data Attestation: I reviewed the patient's lab results. 11/12/22 09:30 11/12/22 09:30 Lab Results 11/12/22 11/12/22 11/12/22 Range/Units 09:30 09:30 09:30 WBC 14.04 H (4.8-10.8) K/ul RBC 4.90 (4.20-5.40) M/uL Hgb 15.3 (12.0-16.0) g/dl Hct 44.3 (37.0-47.0) % MCV 90.4 (80.0-100.0) fL MCH 31.2 (25.0-34.0) pg MCHC 34.5 (32.0-36.0) g/dL RDW Std Deviation 54.9 H (36.4-46.3) fL RDW Coeff of Jessica 16.5 H (11.5-14.5) % Plt Count 315 (130-400) K/uL MPV 9.5 (9.4-12.4) fL Immature Gran % (Auto) 0.4 % Neut % (Auto) 83.0 % Lymph % (Auto) 8.9 % [place] % (Auto) 7.0 % Eos % (Auto) 0.2 % Baso % (Auto) 0.5 % Neut # (Auto) 11.65 H (1.40-6.50) K/uL Lymph # (Auto) 1.25 (1.2-3.4) K/uL [place] # (Auto) 0.98 H (0.11-0.59) K/uL Eos # (Auto) 0.03 (0-0.50) K/uL Baso # (Auto) 0.07 (0-0.2) K/uL Immature Gran # (Auto) 0.06 (0.01-0.20) K/uL Sodium 135 L (136-145) mmol/L Potassium 3.7 (3.5-5.1) mmol/L Chloride 92 L (98-107) mmol/L Carbon Dioxide 24 (21-32) mmol/L Anion Gap 19 H (3-11) BUN 13 (6-23) mg/dl Creatinine 0.58 L (0.6-1.2) mg/dl Est Cr Clr Drug Dosing 104.5 ml/min Est GFR ( Amer) 131.8 ml/min Est GFR (Non-Af Amer) 113.7 ml/min BUN/Creatinine Ratio 22.4 H (10-20) Glucose 119 H (70-99(Fasting)) mg/dl Calcium 9.3 (8.5-10.1) mg/dl Total Bilirubin 1.0 (0.2-1.0) mg/dl AST 247 H (13-39) U/L ALT 101 H (7-52) U/L Alkaline Phosphatase 223 H (34-104) U/L Total Protein 7.4 (6.0-8.3) gm/dl Albumin 4.2 (3.4-5.0) gm/dl Globulin 3.2 (2.5-4.0) gm/dl Albumin/Globulin Ratio 1.3 (0.9-2) Lipase 28 (11-82) U/L Procalcitonin (0-0.5) ng/ml HCG, Qual Negative (Negative) Urine Color Urine Appearance (Clear) Urine pH (4.5-7.5) Ur Specific [place] (1.000-1.030) Urine Protein (Negative) Urine Glucose (UA) (Negative) Urine Ketones (Negative) Urine Blood (Negative) Urine Nitrite (Negative) Urine Bilirubin (Negative) Urine Urobilinogen (Negative) Ur Leukocyte Esterase (Negative) Urine WBC (Auto) (0-5) /hpf Urine RBC (Auto) (0-4) /hpf U Hyaline Cast (Auto) (0-5) /lpf U Epithel Cells (Auto) (0-5) /lpf Urine Bacteria (Auto) (Negative) Urine Opiates Screen (Neg) Ur Methadone, Qual (Neg) Urine Barbiturates (Neg) Ur Phencyclidine (PCP) (Neg) U Amphetamin/Meth Scrn (Neg) MDMA (Ecstasy) Screen (Neg) U Benzodiazepines Scrn (Neg) Ur Cocaine Metabolite (Neg) U Marijuana (THC) Screen (Neg) Ethyl Alcohol mg/dL (<10.0) mg/dl SARS-CoV-2 (PCR) (Negative) Influenza Type A (PCR) (Neg) Influenza Type B (PCR) (Neg) RSV (RT-PCR) (Neg) 11/12/22 11/12/22 11/12/22 Range/Units 09:30 09:30 09:40 WBC (4.8-10.8) K/ul RBC (4.20-5.40) M/uL Hgb (12.0-16.0) g/dl Hct (37.0-47.0) % MCV (80.0-100.0) fL MCH (25.0-34.0) pg MCHC (32.0-36.0) g/dL RDW Std Deviation (36.4-46.3) fL RDW Coeff of Jessica (11.5-14.5) % Plt Count (130-400) K/uL MPV (9.4-12.4) fL Immature Gran % (Auto) % Neut % (Auto) % Lymph % (Auto) % [place] % (Auto) % Eos % (Auto) % Baso % (Auto) % Neut # (Auto) (1.40-6.50) K/uL Lymph # (Auto) (1.2-3.4) K/uL [place] # (Auto) (0.11-0.59) K/uL Eos # (Auto) (0-0.50) K/uL Baso # (Auto) (0-0.2) K/uL Immature Gran # (Auto) (0.01-0.20) K/uL Sodium (136-145) mmol/L Potassium (3.5-5.1) mmol/L Chloride (98-107) mmol/L Carbon Dioxide (21-32) mmol/L Anion Gap (3-11) BUN (6-23) mg/dl Creatinine (0.6-1.2) mg/dl Est Cr Clr Drug Dosing ml/min Est GFR ( Amer) ml/min Est GFR (Non-Af Amer) ml/min BUN/Creatinine Ratio (10-20) Glucose (70-99(Fasting)) mg/dl Calcium (8.5-10.1) mg/dl Total Bilirubin (0.2-1.0) mg/dl AST (13-39) U/L ALT (7-52) U/L Alkaline Phosphatase (34-104) U/L Total Protein (6.0-8.3) gm/dl Albumin (3.4-5.0) gm/dl Globulin (2.5-4.0) gm/dl Albumin/Globulin Ratio (0.9-2) Lipase (11-82) U/L Procalcitonin 0.07 (0-0.5) ng/ml HCG, Qual (Negative) Urine Color Dark Yellow Urine Appearance Clear (Clear) Urine pH 5.5 (4.5-7.5) Ur Specific [place] 1.022 (1.000-1.030) Urine Protein Trace H (Negative) Urine Glucose (UA) Negative (Negative) Urine Ketones 3+ H (Negative) Urine Blood 1+ H (Negative) Urine Nitrite Negative (Negative) Urine Bilirubin 1+ H (Negative) Urine Urobilinogen Negative (Negative) Ur Leukocyte Esterase Trace H (Negative) Urine WBC (Auto) 1-5 (0-5) /hpf Urine RBC (Auto) 5-10 H (0-4) /hpf U Hyaline Cast (Auto) 1-5 (0-5) /lpf U Epithel Cells (Auto) >30 H (0-5) /lpf Urine Bacteria (Auto) Negative (Negative) Urine Opiates Screen (Neg) Ur Methadone, Qual (Neg) Urine Barbiturates (Neg) Ur Phencyclidine (PCP) (Neg) U Amphetamin/Meth Scrn (Neg) MDMA (Ecstasy) Screen (Neg) U Benzodiazepines Scrn (Neg) Ur Cocaine Metabolite (Neg) U Marijuana (THC) Screen (Neg) Ethyl Alcohol mg/dL (<10.0) mg/dl SARS-CoV-2 (PCR) NEGATIVE (Negative) Influenza Type A (PCR) Negative (Neg) Influenza Type B (PCR) Negative (Neg) RSV (RT-PCR) Negative (Neg) 11/12/22 11/12/22 Range/Units 10:40 12:10 WBC (4.8-10.8) K/ul RBC (4.20-5.40) M/uL Hgb (12.0-16.0) g/dl Hct (37.0-47.0) % MCV (80.0-100.0) fL MCH (25.0-34.0) pg MCHC (32.0-36.0) g/dL RDW Std Deviation (36.4-46.3) fL RDW Coeff of Jessica (11.5-14.5) % Plt Count (130-400) K/uL MPV (9.4-12.4) fL Immature Gran % (Auto) % Neut % (Auto) % Lymph % (Auto) % [place] % (Auto) % Eos % (Auto) % Baso % (Auto) % Neut # (Auto) (1.40-6.50) K/uL Lymph # (Auto) (1.2-3.4) K/uL [place] # (Auto) (0.11-0.59) K/uL Eos # (Auto) (0-0.50) K/uL Baso # (Auto) (0-0.2) K/uL Immature Gran # (Auto) (0.01-0.20) K/uL Sodium (136-145) mmol/L Potassium (3.5-5.1) mmol/L Chloride (98-107) mmol/L Carbon Dioxide (21-32) mmol/L Anion Gap (3-11) BUN (6-23) mg/dl Creatinine (0.6-1.2) mg/dl Est Cr Clr Drug Dosing ml/min Est GFR ( Amer) ml/min Est GFR (Non-Af Amer) ml/min BUN/Creatinine Ratio (10-20) Glucose (70-99(Fasting)) mg/dl Calcium (8.5-10.1) mg/dl Total Bilirubin (0.2-1.0) mg/dl AST (13-39) U/L ALT (7-52) U/L Alkaline Phosphatase (34-104) U/L Total Protein (6.0-8.3) gm/dl Albumin (3.4-5.0) gm/dl Globulin (2.5-4.0) gm/dl Albumin/Globulin Ratio (0.9-2) Lipase (11-82) U/L Procalcitonin (0-0.5) ng/ml HCG, Qual (Negative) Urine Color Urine Appearance (Clear) Urine pH (4.5-7.5) Ur Specific [place] (1.000-1.030) Urine Protein (Negative) Urine Glucose (UA) (Negative) Urine Ketones (Negative) Urine Blood (Negative) Urine Nitrite (Negative) Urine Bilirubin (Negative) Urine Urobilinogen (Negative) Ur Leukocyte Esterase (Negative) Urine WBC (Auto) (0-5) /hpf Urine RBC (Auto) (0-4) /hpf U Hyaline Cast (Auto) (0-5) /lpf U Epithel Cells (Auto) (0-5) /lpf Urine Bacteria (Auto) (Negative) Urine Opiates Screen Neg (Neg) Ur Methadone, Qual Neg (Neg) Urine Barbiturates Neg (Neg) Ur Phencyclidine (PCP) Neg (Neg) U Amphetamin/Meth Scrn Neg (Neg) MDMA (Ecstasy) Screen Neg (Neg) U Benzodiazepines Scrn Neg (Neg) Ur Cocaine Metabolite Neg (Neg) U Marijuana (THC) Screen Pos H (Neg) Ethyl Alcohol mg/dL < 10.0 (<10.0) mg/dl SARS-CoV-2 (PCR) (Negative) Influenza Type A (PCR) (Neg) Influenza Type B (PCR) (Neg) RSV (RT-PCR) (Neg) Administered Medications Clonazepam (Clonazepam 1 Mg Tab) 1 mg PO TID PRN PRN Reason: anxiety Stop: 12/12/22 15:12 Last Admin: 11/12/22 16:31 Dose: 1 mg Documented By: MACARIO Lactated Ringer's (Lr) 1,000 mls @ 150 mls/hr IV .Q6H40M CIRO Stop: 11/13/22 04:32 Last Admin: 11/12/22 16:14 Dose: 150 mls/hr Documented By: MACARIO Ondansetron HCl (Ondansetron Inj 2 Mg/Ml 2 Ml Vial) 4 mg IV Q4H PRN PRN Reason: Nausea Stop: 12/12/22 15:12 Last Admin: 11/12/22 16:32 Dose: 4 mg Documented By: MACARIO Discontinued Medications Diphenhydramine HCl (Diphenhydramine 50 Mg/Ml Vial) 25 mg IV NOW STA Stop: 11/12/22 10:23 Last Admin: 11/12/22 10:43 Dose: 25 mg Documented By: MARYJANE Hydromorphone HCl (Hydromorphone Inj 0.5 Mg/0.5 Ml Syr) 0.25 mg IV NOW STA Stop: 11/12/22 12:20 Last Admin: 11/12/22 12:43 Dose: 0.25 mg Documented By: KAPIL Hydromorphone HCl (Hydromorphone Inj 0.5 Mg/0.5 Ml Syr) 0.5 mg IV NOW STA Stop: 11/12/22 15:14 Last Admin: 11/12/22 15:35 Dose: 0.5 mg Documented By: MACARIO Sodium Chloride (Nss 1000ml) 1,000 mls @ 999 mls/hr IV .Q1H1M ONE Stop: 11/12/22 10:12 Last Infusion: 11/12/22 11:20 Dose: 0 mls/hr Documented By: Admin: 11/12/22 09:33 Dose: 999 mls/hr Documented By: MARYJANE Famotidine (Pepcid 20mg Iv Push) 20 mg in 5 mls @ 2.5 mls/min IV NOW STA Stop: 11/12/22 09:13 Last Admin: 11/12/22 09:34 Dose: 2.5 mls/min Documented By: MARYJANE Multivitamins 10 ml/ Thiamine HCl 100 mg/ Folic Acid 1 mg/Sodium Chloride 1,011.2 mls @ 1,011.2 mls/hr IV .Q1H ONE Stop: 11/12/22 11:21 Last Infusion: 11/12/22 14:04 Dose: 0 mls/hr Documented By: Admin: 11/12/22 11:27 Dose: 1,011.2 mls/hr Documented By: MARYJANE Prochlorperazine (Compazine) 2 mls @ 1 mls/min IV ONE ONE Stop: 11/12/22 10:23 Last Admin: 11/12/22 10:44 Dose: 1 mls/min Documented By: MARYJANE Acetaminophen (Ofirmev) 1,000 mg in 100 mls @ 400 mls/hr IV NOW STA Stop: 11/12/22 10:41 Last Infusion: 11/12/22 11:20 Dose: 0 mls/hr Documented By: Admin: 11/12/22 10:42 Dose: 400 mls/hr Documented By: MARYJANE Promethazine HCl (Phenergan) 25 mg in 51 mls @ 204 mls/hr IV NOW STA Stop: 11/12/22 12:33 Last Infusion: 11/12/22 14:04 Dose: 0 mls/hr Documented By: Admin: 11/12/22 12:44 Dose: 204 mls/hr Documented By: KAPIL Pantoprazole Sodium 40 mg/ (Syringe) 10 mls @ 5 mls/min IV NOW ONE Stop: 11/12/22 13:22 Last Admin: 11/12/22 16:53 Dose: Not Given Documented By: MACARIO Lactated Ringer's (Lr) 1,000 mls @ 999 mls/hr IV .Q1H1M ONE Stop: 11/12/22 16:13 Last Infusion: 11/12/22 17:15 Dose: 0 mls/hr Documented By: Admin: 11/12/22 16:14 Dose: 999 mls/hr Documented By: MACARIO Ioversol (Optiray 350 100ml) 91 ml IV ONCE ONE Stop: 11/12/22 11:02 Last Admin: 11/12/22 11:02 Dose: 91 ml Documented By: FAVIO Ioversol (Optiray 350 100ml) 94 ml IV ONCE ONE Stop: 11/12/22 14:01 Last Admin: 11/12/22 14:00 Dose: 94 ml Documented By: AURELIO Lorazepam (Lorazepam 2 Mg/1 Ml Vial) 1 mg IV NOW STA Stop: 11/12/22 10:23 Last Admin: 11/12/22 10:42 Dose: 1 mg Documented By: MARYJANE Ondansetron HCl (Ondansetron Inj 2 Mg/Ml 2 Ml Vial) 4 mg IV NOW STA Stop: 11/12/22 09:13 Last Admin: 11/12/22 09:35 Dose: 4 mg Documented By: MARYJANE Imaging Data Radiologist's Impression: Abdomen/Pelvis CT 11/12/22 10:22 CT SCAN OF THE ABDOMEN AND PELVIS WITH IV CONTRAST CLINICAL HISTORY: Nausea and vomiting. Upper abdominal pain. COMPARISON STUDY: Abdominal CT dated 04/18/2022. TECHNIQUE: Following the IV administration of 91 cc of Optiray 350, CT scan of the abdomen and pelvis is performed from the lung bases to the proximal femora. Images are reviewed in the axial, sagittal, and coronal planes. IV contrast was administered without complication. A dose lowering technique was utilized adhering to the principles of ALARA. CT DOSE: 300.34 mGy.cm FINDINGS: Lung bases: The heart is normal in size and without pericardial effusion. There is elevation of the left hemidiaphragm with subsegmental atelectasis at the left lung base. Patchy ground glass consolidation is seen at the right lung base. No pleural effusion is identified. Liver: The contrast-enhanced liver is top normal in size and demonstrates diffusely diminished attenuation indicating severe steatosis. There is no intrahepatic biliary ductal dilatation. The hepatic veins and portal veins are patent. Gallbladder: Surgically absent noting clips in the gallbladder fossa. Spleen: Normal in size and attenuation. Pancreas: There is moderate glandular atrophy of the pancreas. Calcifications within the pancreatic head suggests chronic pancreatitis. There is mild infiltration and fluid adjacent to the pancreatic head suggesting mild acute pancreatitis. The gland enhances throughout. The duct is normal in caliber. No organized peripancreatic fluid collection is seen. Adrenal glands: Unremarkable. Kidneys: The contrast enhanced kidneys are normal in size and without hydronephrosis. The kidneys enhance symmetrically. Small bilateral nonobstructing renal calculi measuring up to 3 mm. No ureteral stone is seen. Abdominal vasculature: The abdominal aorta is normal in course and caliber noting mild age advanced atherosclerotic calcification. Bowel: There is no bowel obstruction. Some mucosal fat deposition throughout the colon is nonspecific and has been described in the setting of chronic inflammation. Question mild diffuse wall thickening of the colon versus underdistention. The appendix is well-visualized and normal. Peritoneum: There is no intraperitoneal free air or abdominal ascites. There is a small fat-containing umbilical hernia with a navel piercing in place. Lymphadenopathy: None. Pelvic viscera: The bladder is normal as visualized. The uterus is normal in appearance noting an intrauterine device in place. No adnexal lesion is seen. A 2.5 cm dominant follicle is noted in the left ovary. Skeletal structures: No lytic or blastic lesions are seen. IMPRESSION: 1. Findings suggest mild acute on chronic pancreatitis. Correlate with clinical and laboratory findings. 2. Severe hepatic steatosis. 3. Mild patchy groundglass consolidation is seen at the right lung base. Correlate clinically for evidence of a mild infectious/inflammatory pneumonitis. 4. Underdistention versus mild wall thickening of the colon. Correlate clinically for evidence of a mild nonspecific colitis. 5. Bilateral nephrolithiasis. 6. Additional findings as above. ACT 112: Negative or not required by law. Electronically signed by: Austin Hines M.D. 11/12/2022 11:19 AM Chest X-Ray 11/12/22 10:22 SINGLE VIEW CHEST CLINICAL HISTORY: Generalized abdominal pain. Nausea and vomiting FINDINGS: An AP, portable, upright chest radiograph is compared to study dated 04/18/2022. The cardiomediastinal silhouette is unremarkable. There is left basilar consolidation with elevation of the left hemidiaphragm. The right lung appears clear. No large pleural effusion or pneumothorax is seen. The bony thorax is grossly intact. IMPRESSION: Left basilar consolidation could represent atelectasis and/or pneumonia. Clinical correlation will be required and radiographic follow-up to resolution is recommended. ACT 112: Negative or not required by law. Electronically signed by: Austin Hines M.D. 11/12/2022 11:10 AM Wrist X-Ray 11/12/22 10:27 XR wrist RT min 3V routine CLINICAL HISTORY: pain fall TECHNIQUE: 4 views of the right wrist were obtained. Comparison: None available at the time of this dictation. FINDINGS: Redemonstration of a minimally displaced intra-articular fracture of the distal radius. Joint spaces are well-preserved. Soft tissue swelling is seen about the wrist. IMPRESSION: Redemonstration of minimally displaced intra-articular distal radial fracture with associated soft tissue swelling. ACT 112: Negative or not required by law. Electronically signed by: Armand Cohen M.D. 11/12/2022 10:[address] 11/12/22 13:06 CT chest diagnostic w con CLINICAL HISTORY: new L hemidiaphragm elevation TECHNIQUE: Multidetector row helical CT of the chest was performed with intravenous contrast. Coronal and sagittal reformations were obtained. Automated dose lowering techniques and/or adjustment according to patient size were utilized for this exam. CT DOSE: 223.26 mGycm Comparison: Comparison is made to chest radiograph 11/12/2022 FINDINGS: Lungs and pleura: An azygos fissure is incidentally noted. Atelectasis is seen in the left lower lobe corresponding to opacity seen on prior chest radiograph. There are a few groundglass opacities favoring the upper lobes Heart and pericardium: Heart size is normal. No pericardial effusion. Vessels: Unremarkable. Mediastinum and bj: Unremarkable. Chest wall and lower neck: Unremarkable. Abdomen: For findings below the diaphragm, please refer to CT of the abdomen dated the same. Bones: Degenerative changes in the thoracic spine. Anterior wedge deformity of T12 is noted. IMPRESSION: A few groundglass opacities are seen. The upper lobes, these may represent infectious/inflammatory process. Previously noted left lower lung airspace opacity represents atelectasis. ACT 112: Negative or not required by law. Electronically signed by: Armand Cohen M.D. 11/12/2022 2:15 PM Discharge Plan Visit Data Chief Complaint: Abdominal Pain Stated Complaint: R WRIST PAIN ED Provider: Bunny Israel Discharge Problem: Acute on chronic pancreatitis, Intractable nausea and vomiting, Transaminitis, Leukocytosis Patient Disposition: Admitted As Inpatient Discharge Instructions Interventions: ED Discharge Assessment Last Done: 11/12/22 14:49
[2022-11-12] MEDS ORDERED: LORazepam 2 MG/1 ML VIAL IV PRN (15:13)
[2022-11-12] MEDS ORDERED: HYDROmorphone INJ 0.5 MG/0.5 ML SYR IV PRN (15:13)
[2022-11-12] MEDS ORDERED: LACTATED RINGER'S 1,000 ML IV ONE (15:13)
[2022-11-12] MEDS: LACTATED RINGER'S 1,000 ML IV SCH ×2 (16:14→21:57)
[2022-11-12] MEDS: clonazePAM 1 MG TAB PO PRN ×2 (16:31→23:59)
[2022-11-12] MEDS: ONDANSETRON INJ 2 MG/ML 2 ML VIAL IV PRN ×2 (16:32→20:25)
[2022-11-12 19:49] LABS: Magnesium 1.7 mg/dl (1.7-2.4)
[2022-11-12] MEDS: HYDROmorphone INJ 1 MG/ML SYRINGE IV PRN (20:17)
[2022-11-12] MEDS: PANTOprazole 40 MG in SYRINGE 0 ML IV SCH (20:17)
[2022-11-12] MEDS: APIXABAN 5 MG TABLET PO SCH (20:22)
[2022-11-12] MEDS ORDERED: MIRTAZAPINE TAB 15 MG TAB PO SCH (21:00)
[2022-11-13] MEDS ORDERED: PROMETHAZINE HCL 25 MG TAB PO ONE (00:06)
[2022-11-13] MEDS ORDERED: PROMETHAZINE HCL 12.5 MG in SODIUM CHLORIDE 0.9% 50 ML IV PRN (01:53)
[2022-11-13] MEDS: HYDROmorphone INJ 1 MG/ML SYRINGE IV PRN ×5 (03:22→23:46)
[2022-11-13] MEDS: ONDANSETRON INJ 2 MG/ML 2 ML VIAL IV PRN ×5 (03:25→23:46)
[2022-11-13 08:30] LABS: Basophils # (auto) 0.04 K/uL (0-0.2); Basophils % (auto) 0.6 %; Eosinophils % (auto) 2.8 %; Hematocrit (blood only) 39.5 % (37.0-47.0); Hemoglobin 13.3 g/dl (12.0-16.0); Immature Granulocytes # (auto) 0.03 K/uL (0.01-0.20); Immature Granulocytes % (auto) 0.4 %; Lymphocytes # (auto) 2.04 K/uL (1.2-3.4); Lymphocytes % (auto) 28.9 %; Mean Corpuscular Hemoglobin 31.4 pg (25.0-34.0); Mean Corpuscular Hgb Conc 33.7 g/dL (32.0-36.0); Mean Corpuscular Volume 93.2 fL (80.0-100.0); Mean Platelet Volume 9.8 fL (9.4-12.4); Monocytes # (auto) 0.64 K/uL (0.11-0.59); Monocytes % (auto) 9.1 %; Neutrophils % (auto) 58.2 %; Platelet Count 221 K/uL (130-400); RDW Coefficient of Variation 15.9 % (11.5-14.5); Red Blood Count 4.24 M/uL (4.20-5.40); White Blood Count 7.05 K/ul (4.8-10.8)
[2022-11-13 08:41] LABS: Prothrombin Time 10.9 Seconds (9.0-12.0)
[2022-11-13 08:53] LABS: Albumin Globulin Ratio 1.5 (0.9-2); Albumin Level 3.7 gm/dl (3.4-5.0); BUN Creatinine Ratio 10.6 (10-20); Bilirubin,Total 0.9 mg/dl (0.2-1.0); Calcium 8.6 mg/dl (8.5-10.1); Chol HDL Ratio 1.8 (0-5); Est GFR (African American) 141.2 ml/min; Est GFR (Non-African American) 121.8 ml/min; Globulin 2.5 gm/dl (2.5-4.0); Magnesium 1.6 mg/dl (1.7-2.4); Potassium 3.6 mmol/L (3.5-5.1); Total Protein 6.2 gm/dl (6.0-8.3)
[2022-11-13] MEDS ORDERED: FOLIC ACID 1 MG in SYRINGE 9.8 ML IV SCH (09:00)
[2022-11-13] MEDS ORDERED: THIAMINE HCL 100 MG in SYRINGE 9 ML IV SCH (09:00)
[2022-11-13 09:06] LABS: Thyroid Stimulating Hormone 5.896 uIu/ml (0.300-4.500)
[2022-11-13] MEDS: PANTOprazole 40 MG in SYRINGE 0 ML IV SCH ×2 (09:06→20:37)
[2022-11-13] MEDS: APIXABAN 5 MG TABLET PO SCH ×2 (09:06→20:37)
[2022-11-13 09:18] LABS: Vitamin B12 > 1500 pg/ml (180-914)
[2022-11-13 09:21] LABS: Vitamin D, 25 Hydrox 31.5 ng/ml (30-100)
[2022-11-13 09:41] LABS: T4 Free Thyroxine 0.88 ng/dl (0.61-1.60)
[2022-11-13] MEDS: clonazePAM 1 MG TAB PO PRN ×2 (10:35→15:52)
--- NOTE | 2022-11-13 15:37 | Hospitalist Progress Note ---
Date of Service November 13, 2022 Assessment & Plan (1) Chronic pancreatitis: Plan: Acute on chronic pancreatitis, 2nd to recent alcohol use this past week. ( last etoh prior was in March) Admitted to several glasses of wine daily over the past week. She states she was upset with her father's new dx parkinsons. Associated n/v, diarrhea, elevated LFTs 2nd to alcohol. Hx cholecystecomy ~>5 years ago. Lipase normal on admit but CTAP c/w mild acute on chronic pancreatitis Admit to medical Had several bags of LR in ER and last night Patient states urinating multiple times and clear Advanced diet from NPO to clears this AM and patient tolerated so then advanced to a low fat diet for dinner I&O Pain control -- got 0.25mg diluadid in ER. Reports issues /w morphine (avoiding given elevated LFTs) ordered 0.5mg IV q4h mild-moderate pain, 1mg q4h severe pain still has been requiring IV Dilaudid Antiemetics (Zofran) prn Protonix IV BID Lipid panel - TG level was normal at 91 Procalcitonin - 0.07 Patient stated that she takes Creon for her chronic pancreatitis and will order Creon one with meals Monitor labs in AM (2) Abnormal LFTs: Plan: TB wnl, elevated LFTs likely 2nd to alcohol use (AST>ALT) Hx cholecystectomy. Bilirubin normal Holding home baclofen Using Dilaudid instead of morphine Avoid hepatotoxic medications Rec avoidance of alcohol use Urine drug screen - + Marijuana LFTs improving but still elevated AWSS scale to monitor for any DT, ativan available as needed Monitor LFTs on repeat in AM (3) GERD (gastroesophageal reflux disease): Plan: on daily PPI at home -- placed on PPI IV BID hx PUD Follows with [facility] and will need outpt f/u May eventually need EUS to evaluate the pancreas further Also discussed fatty liver and the need to abstain from ALL Etoh and low fat diet and exercise for the hepatic steatosis (4) Wrist fracture: Plan: secondary to fall pain control as above continue brace consulted Dr Martinez given patient following w/ him and worsening displacement on imaging (5) Diarrhea: Plan: reported diarrhea imaging w/ nonspecific colitis check stool PCR/monitor diarrhea Resolved (6) Portal vein thrombosis: Plan: hx of such, remains on eliquis 5mg BID -- continued as not actively vomiting can repeat portal vein US if warranted but she states she sees them routinely and likely remain on lifelong (7) Anxiety and depression: Plan: on clonazepam 1mg TID -- will continue prn ativan available as well for AWSS Continue to hold fluoxetine/mirtazapine for now given LFTs -- hopefully can resume tomorrow (8) Marijuana use: Plan: medical marijuana use, ?cyclic vomiting however she reports hasn't used in several weeks Has not had any vomiting since admission and only mild nausea and resolves with Zofran + marijuana in UDS Marijuana THC Carboxy pending (9) Elevated hemidiaphragm: Plan: CT chest - A few groundglass opacities are seen. The upper lobes, these may represent infectious/inflammatory process. Previously noted left lower lung airspace opacity represents atelectasis. + tobacco abuse afebrile, procalcitonin 0.07, Saturating in mid 90s on RA (10) Hypomagnesemia: Plan: Replace today and repeat labs in AM Plan DVT proph : continue home Eliquis BID as long as no vomiting -- if occurs can utilize chemo proph w/ Lovenox SQ Admission and Anticipated Discharge Date Admission Date: November 12, 2022 Subjective Patient is awake in bed. She stated her abdominal pain is slightly improved and she was able to tolerate clear liquids. She had some nausea but no vomiting. She states her worse pain is her right wrist pain. She is wearing the thumb spica brace. A Consult was placed with Dr Martinez. Review of Systems Review of Systems: All ROS negative unless stated + above Physical Exam Constitutional: Patient sitting upright in bed. Neck: trachea midline, no thyromegaly Respiratory: normal respiratory effort, lungs clear to auscultation Cardiovascular: RRR, no murmur, no edema Gastrointestinal (Abdomen): + BS soft and mild tender to palpation epigastric area, no R/R. Some mild voluntary guarding Musculoskeletal: thumb spica brace right wrist Skin: no rashes, warm and dry Neurologic: PERRL, EOMI, accommodation nl, no face palsy, no dysarthria Psychiatric: A+Ox3, euthymic affect Apperance: appropriately dressed and appropriately groomed Mood: + anxious mood Results & Data Results & Data ([facility]) Vital Signs (Past 12 Hours) Vital Signs Temp Pulse Resp BP Pulse Ox O2 Del Method 11/13/22 15:33 36.7 C 102 H 16 112/76 94 Room Air 11/13/22 11:00 36.6 C 108 H 16 138/91 93 Room Air 11/13/22 08:48 36.7 C 104 H 18 138/91 94 Room Air 11/13/22 03:57 36.5 C 94 H 16 129/87 95 Room Air Laboratory Results Abnormal lab results 11/13/22 11/13/22 11/13/22 Range/Units 08:09 08:09 08:09 RDW Std Deviation 55.0 H (36.4-46.3) fL RDW Coeff of Jessica 15.9 H (11.5-14.5) % Hayes # (Auto) 0.64 H (0.11-0.59) K/uL Sodium 135 L (136-145) mmol/L Chloride 94 L (98-107) mmol/L BUN 5 L (6-23) mg/dl Creatinine 0.47 L (0.6-1.2) mg/dl Magnesium 1.6 L (1.7-2.4) mg/dl AST 170 H (13-39) U/L ALT 82 H (7-52) U/L Alkaline Phosphatase 186 H (34-104) U/L Vitamin B12 > 1500 H (180-914) pg/ml TSH (0.300-4.500) uIu/ml 11/13/22 Range/Units 08:09 RDW Std Deviation (36.4-46.3) fL RDW Coeff of Jessica (11.5-14.5) % Hayes # (Auto) (0.11-0.59) K/uL Sodium (136-145) mmol/L Chloride (98-107) mmol/L BUN (6-23) mg/dl Creatinine (0.6-1.2) mg/dl Magnesium (1.7-2.4) mg/dl AST (13-39) U/L ALT (7-52) U/L Alkaline Phosphatase (34-104) U/L Vitamin B12 (180-914) pg/ml TSH 5.896 H (0.300-4.500) uIu/ml PG Care Time/CCT Total # of Minutes Spent Total Time Spent with Patient: Total time spent is greater than 50% in coordination of care (as documented) at patient's floor/unit and/or counseling patient: Coding Level of Care Code 95577 SUB INP/OBS CARE 350MIN Diagnoses Chronic pancreatitis K86.1 Abnormal LFTs R94.5 GERD (gastroesophageal reflux disease) K21.9 Wrist fracture S62.109A Diarrhea R19.7 Portal vein thrombosis I81 Anxiety and depression F41.9; F32.9 Marijuana use F12.90 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
[2022-11-13] MEDS: MAGNESIUM OXIDE 400 MG TAB PO SCH (16:37)
[2022-11-14] MEDS: clonazePAM 1 MG TAB PO PRN ×2 (02:11→10:35)
[2022-11-14] MEDS: ONDANSETRON INJ 2 MG/ML 2 ML VIAL IV PRN ×3 (04:12→12:45)
[2022-11-14] MEDS: HYDROmorphone INJ 1 MG/ML SYRINGE IV PRN ×3 (04:13→12:44)
--- NOTE | 2022-11-14 07:01 | Orthopedic Consultation ---
Date of Service November 14, 2022 Assessment & Plan (1) Wrist fracture: She is doing with acute on chronic nondisplaced distal radius fracture and third metacarpal fracture. This can certainly be treated conservatively. She is already wearing a well fitted wrist splint. She is already scheduled to follow-up with Dr. Chaparro in the office in about a week. I do not see any surgical indications. I recommended that she keep her follow-up appointment and Dr. Chaparro can continue treatment of her wrist pain. History of Present Illness Reason for Consultation: Right wrist pain. Requesting Physician: . Attending Physician: Ariel Hong is a 41-year-old female who initially fell and injured her right wrist back in June. She has been followed up in our office by Dr. Chaparro. She had a small cortical fracture on the dorsal aspect of her distal radius and a minimally displaced third metacarpal fracture. She has been treated with cast and splint immobilization. She was doing better at her last visit in August. Unfortunately she fell again. She landed on her right outstretched hand. She reinjured her right wrist. She came to the emergency room and was admitted to the hospital for medical reasons. She is wearing a wrist splint. X-rays done on this most recent visit confirm a small cortical fracture on the dorsal aspect of the distal radius. Orthopedics was consulted to evaluate and treat.. Allergies Allergy/AdvReac Type Severity Reaction Status Date / Time buspirone [From BuSpar] Allergy Severe Unconscious, Verified 10/25/22 14:46 seizures quetiapine [From Seroquel] Allergy Severe Unconscious, Verified 10/25/22 14:46 seizures citalopram [From Celexa] AdvReac Intermediate Vomiting Verified 10/25/22 14:46 morphine AdvReac Intermediate "MAKES ME Verified 10/25/22 14:46 SICK(VOMITING)" vilazodone [From Viibryd] AdvReac Vomiting Verified 10/25/22 14:46 Home Medications Medication Instructions Recorded Confirmed Type multivitamin 1 tab PO DAILY 03/18/19 10/25/22 History mecobalamin (vitamin B12) 1,000 1,000 mcg PO PM 11/10/19 10/25/22 History mcg chewable tablet (B12 Active) apixaban 5 mg tablet (Eliquis) 5 mg PO Q12 04/12/21 10/25/22 History potassium chloride 20 mEq 20 meq PO DAILY #1 tab 04/14/21 10/25/22 Rx tablet,extended release(part/cryst) (Klor-Con M) thiamine HCl (vitamin B1) 100 mg 200 mg PO DAILY 04/17/21 10/25/22 History tablet melatonin 10 mg capsule 10 mg PO HS PRN Insomnia 09/04/21 10/25/22 History pantoprazole 40 mg tablet,delayed 40 mg PO DAILY #90 tabs 05/09/22 10/25/22 Rx release magnesium citrate 100 mg tablet 300 mg PO DAILY 05/23/22 10/25/22 History baclofen 5 mg tablet 5 mg PO BID #60 tabs 05/27/22 10/25/22 Rx mirtazapine 15 mg tablet 15 mg PO HS #30 tabs 07/04/22 10/25/22 Rx fluticasone propionate 50 1 spray intranasal BID #16 grams 07/18/22 10/25/22 Rx mcg/actuation nasal spray,suspension prochlorperazine maleate 5 mg 5 mg PO Q6H PRN nausea and 07/30/22 10/25/22 Rx tablet (Compazine) vomiting #20 tabs clindamycin phosphate 1 % topical 1 applic topical DAILY #30 grams 09/04/22 10/25/22 Rx gel folic acid 1 mg tablet 1 mg PO DAILY #90 tabs 09/04/22 10/25/22 Rx COVID-19 antigen test (COVID-19 #8 ea 09/13/22 10/25/22 Rx At-Home Test kit) [id number] 3 cap PO TID Abdominal Discomfort 09/16/22 10/25/22 Rx 36,000-114,000-180,000 unit 90 days #810 caps capsule,delay rel (Creon) ondansetron 4 mg disintegrating See Rx Instructions .Route 09/25/22 10/25/22 Rx tablet .COMPLEX #30 tabs methocarbamol 750 mg tablet 750 mg PO TID #90 tabs 10/04/22 10/25/22 Rx sumatriptan succinate 100 mg tablet See Rx Instructions .Route 10/04/22 10/25/22 Rx .COMPLEX #16 tabs promethazine 25 mg tablet See Rx Instructions .Route 10/18/22 10/25/22 Rx .COMPLEX #10 tabs clonazepam 1 mg tablet 1 mg PO TID #90 tabs 10/25/22 10/25/22 Rx fluoxetine 40 mg capsule 40 mg PO DAILY #30 caps 10/25/22 10/25/22 Rx baclofen 20 mg tablet See Rx Instructions .Route 11/01/22 Rx .COMPLEX #90 tabs Past Med/Surg History Medical History Acne Acute gallstone pancreatitis Acute pancreatitis Alcohol abuse Anxiety and depression Back pain, chronic Chronic neck pain Distal radius fracture, right Fracture of distal phalanx of finger Fracture of middle phalanx of finger of right hand Fracture of third metacarpal bone of right hand GERD (gastroesophageal reflux disease) Hiatal hernia Insomnia Kidney failure 2009 (RESOLVED/SAW A CURATOR HERBARIUM) Liver enzyme elevation Marijuana use MCL sprain of right knee Migraines Pancreatic pseudocyst Pancreatitis alcoholic Pancreatitis, alcoholic, acute Panic attacks Peptic ulcer disease 2 YEARS AGO DX PTSD (post-traumatic stress disorder) Sleeping difficulty Tendinitis of right rotator cuff Toe fracture, left Surgical History "LAST APRIL" History of breast biopsy History of cholecystectomy History of esophagogastroduodenoscopy (EGD) History of esophagogastroduodenoscopy (EGD) 07/02/19- Dr. Gala Willett History of lumpectomy of right breast BENIGN History of tooth extraction Family History Father Family history of diabetes mellitus Myocardial infarction Stroke Hypertension Grandfather (Maternal) Family history of diabetes mellitus Grandmother (Maternal) Family history of diabetes mellitus Hypertension Cancer Mother Hypothyroidism Grandfather (Paternal) Cancer Heart problem Grandmother (Paternal) Hypertension Denies family history of Ovarian cancer Prostate cancer Breast cancer Colorectal cancer Social History Smoking Status: Current every day smoker Tobacco Type: Cigarettes Cigarettes Per Day: less than 1/2 pack a day; Second Hand Exposure: No; Hx Alcohol Use: Yes Alcohol type: hard liquor Hx Substance Use: Yes Last Used Substance: Just Prior to Arrival Last Used Substance Other:: [facility] PRESCRIBED Substance Use Type Other:: Smokes Kurt Preferred Language: Albanian Communication Ability: Effective Visual Impairment: No Limitations Hearing Ability: Normal 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 Required: No Beliefs That Will Affect Care: None marital status: Single Current Living Situation: Parent Current Living Situation Comment: lives at home with mom current occupational status: employed How many Children do You have: 0 Feels Safe at Home: Yes Childhood Exposure to Second-Hand Smoke: No Diet Comment: regular Dental Care, Regularly: Yes Physical Activity Frequency: Does not Exercise Seatbelt Use: always Sunscreen Use: Yes Do you think of yourself as: straight/heterosexual Assistive Devices: None Review of Systems All systems reviewed & are unremarkable except as noted in HPI & below. Physical Exam On physical examination the right wrist, she is wearing a wrist splint. She has tenderness to palpation mostly over the radiocarpal joint. She is a little bit of pain over the third metacarpal but not as much. She has motion of all of her fingers but she says it is painful when she moves them.. Constitutional WD/WN, vitals as above Eyes PERRL, conjunctivae normal, anicteric sclerae ENMT external ear and nose normal, oropharynx normal Neck trachea midline, no thyromegaly Respiratory normal respiratory effort, lungs clear to auscultation Cardiovascular RRR, no murmur, no edema Gastrointestinal (Abdomen) normal bowel sounds, soft, nontender, no hepatosplenomegaly Skin no rashes, warm and dry Psychiatric A+Ox3, euthymic affect Results & Data Results & Data Laboratory Results . Diagnostic Findings X-rays of the right wrist do show a small nondisplaced cortical fracture of the dorsal aspect of the distal radius. It appears relatively unchanged from previous x-rays. There is also a oblique fracture of the third metacarpal. There is some healing on the AP x-rays. There is still slight displacement on the lateral x-rays.. PG Care Time/CCT Total # of Minutes Spent Total Time Spent with Patient: Total time spent is greater than 50% in coordination of care (as documented) at patient's floor/unit and/or counseling patient: Coding Level of Care Code INP/OBS CONSULT LVL 4, 60 MIN Diagnoses Wrist fracture S62.109A
[2022-11-14] MEDS ORDERED: PANCREAZE (LIPASE 10,500U) CAP PO SCH (07:30)
[2022-11-14] MEDS ORDERED: Nursing to Pharmacy Communication SCH (08:15)
[2022-11-14] MEDS: PANCREAZE (LIPASE 10,500U) CAP PO SCH ×2 (08:54→11:38)
[2022-11-14 08:57] LABS: Basophils # (auto) 0.03 K/uL (0-0.2); Basophils % (auto) 0.5 %; Eosinophils # (auto) 0.15 K/uL (0-0.50); Eosinophils % (auto) 2.3 %; Hematocrit (blood only) 40.6 % (37.0-47.0); Hemoglobin 13.7 g/dl (12.0-16.0); Immature Granulocytes # (auto) 0.03 K/uL (0.01-0.20); Immature Granulocytes % (auto) 0.5 %; Lymphocytes # (auto) 1.65 K/uL (1.2-3.4); Lymphocytes % (auto) 24.9 %; Mean Corpuscular Hemoglobin 31.4 pg (25.0-34.0); Mean Corpuscular Hgb Conc 33.7 g/dL (32.0-36.0); Mean Corpuscular Volume 92.9 fL (80.0-100.0); Mean Platelet Volume 10.2 fL (9.4-12.4); Monocytes # (auto) 0.59 K/uL (0.11-0.59); Monocytes % (auto) 8.9 %; Neutrophils # (auto) 4.17 K/uL (1.40-6.50); Neutrophils % (auto) 62.9 %; Platelet Count 207 K/uL (130-400); RDW Coefficient of Variation 15.9 % (11.5-14.5); RDW Standard Deviation 54.4 fL (36.4-46.3); Red Blood Count 4.37 M/uL (4.20-5.40); White Blood Count 6.62 K/ul (4.8-10.8)
[2022-11-14] MEDS ORDERED: THIAMINE HCL 100 MG TAB PO SCH (09:00)
[2022-11-14] MEDS ORDERED: FOLIC ACID 1 MG TAB PO SCH (09:00)
[2022-11-14 09:13] LABS: Albumin Globulin Ratio 1.4 (0.9-2); Albumin Level 3.6 gm/dl (3.4-5.0); BUN Creatinine Ratio 7.1 (10-20); Bilirubin Direct 0.2 mg/dl (0-0.2); Bilirubin,Total 0.7 mg/dl (0.2-1.0); Calcium 8.9 mg/dl (8.5-10.1); Creatinine Clr Calc Pharmacy 108.3 ml/min; Est GFR (African American) 133.3 ml/min; Globulin 2.6 gm/dl (2.5-4.0); Magnesium 1.6 mg/dl (1.7-2.4); Potassium 3.4 mmol/L (3.5-5.1); Total Protein 6.2 gm/dl (6.0-8.3)
[2022-11-14] MEDS: APIXABAN 5 MG TABLET PO SCH (09:29)
[2022-11-14] MEDS: MAGNESIUM OXIDE 400 MG TAB PO SCH (09:29)
[2022-11-14] MEDS: PANTOprazole 40 MG in SYRINGE 0 ML IV SCH (09:29)
--- NOTE | 2022-11-14 11:02 | Discharge Summary ---
Date of Service November 14, 2022 Admission HPI Per Admitting Provider 41yo w/ PMHx significant for pancreatitis (due to alochol use) presented to ER w/ intractable nausea/vomiting for the past week after relapsing on alcohol use after father recently diagnosed with Parkinson's. Last etoh relapse in March last year. Patient seen in C6, stating 9-10/10 abdominal pain. Generalized weakness from poor PO intake, nausea and vomiting over the past week. Stated has been having a couple glasses of wine daily since the news w/ reports of having several glasses of wine daily for about a week. She does have medical marijuana but hasn't used in a couple weeks and has been trying to stop. Noted cough at home but no sputum production. No reported fever but did have some peeling of her skin and her mother told her her fever must have broken. + diarrhea, no bleeding. No recent sick contacts. FLU/RSV/COVID testing negative. She states she has not had much appetite in the past several days/poor PO intake. She also states she had fall at home when putting blanket on the hardwood floors for her dog and got up and fell onto her right wrist again, which she had been following with Dr Martinez for in the past. She is on eliquis for Hx of what sounds like portal vein thrombosis and has been taking. She routinely follows with [facility], Nahed Aguilera from [facility]. Lipase normal but CTAP w/ findings suggestive of mild acute on chronic pancreatitis. Imaging also with concerns Mild patchy ground glass consolidation is seen at the right lung base. Correlate clinically for evidence of a mild infectious/inflammatory pneumonitis.Underdistention vs mild wall thickening of colon, ?mild nonspecific colitis. B/l nephrolithiasis. CXR w/ Left basilar consolidation could represent atelectasis and/or pneumonia. Clinical correlation will be required and radiographic follow-up to resolution is recommended -- given n/v, ?aspiration. Following w/ Dr Martinez for orthopedic concerns-- imaging R wrist w/ re- demonstration of minimally displaced intra-articular distal radial fracture with associated soft tissue swelling. WBC elevation to 14k on admit -- ? reactive from n/v -- added procalcitonin to labs. Chemistry w/ Na 135, Chl 92, Anion gap 19 (likely from alcohol), normal BUN/Cr. LFT elevation w/ normal TB 1.0, but AST 247, ALT 101, ALP 223. Lipase 28. UA does not appear infected, no bacteria. Given benadryl, compazine, ativan, hydromorphone .25mg IV in ER, thiamin/MV, famotidine. Getting CT chest w/ contrast for new elevation L hemidiaphragm. If negative would get MRI. Denies any current chills. No chest pain but does have some reflux. Nausea, but no current vomiting. NAD at present but mildly uncomfortable appearing and requesting medication at this time. Principal Diagnosis 1. Acute on chronic pancreatitis secondary to alcohol 2. Right wrist fracture POA 3. Pneumonitis Discharge Exam GENERAL: 41 yo Well-developed, well-nourished WF. NAD. LUNGS: Clear to auscultation bilaterally. CARDIOVASCULAR: Regular rate and rhythm. ABDOMEN: Soft, non-tender and non-distended. Bs normoactive x 4 quad. Discharge Data Allergies Allergy/AdvReac Type Severity Reaction Status Date / Time buspirone [From BuSpar] Allergy Severe Unconscious, Verified 11/15/22 09:01 seizures quetiapine [From Seroquel] Allergy Severe Unconscious, Verified 11/15/22 09:01 seizures citalopram [From Celexa] AdvReac Intermediate Vomiting Verified 11/15/22 09:01 morphine AdvReac Intermediate "MAKES ME Verified 11/15/22 09:01 SICK(VOMITING)" vilazodone [From Viibryd] AdvReac Vomiting Verified 11/15/22 09:01 Consultations 11/12/22 12:20 ED Decision to Admit Stat 11/12/22 13:17 Consult Orthopedic Surgery Routine Ordered Studies Abdomen/Pelvis CT 11/12/22 10:22 CT SCAN OF THE ABDOMEN AND PELVIS WITH IV CONTRAST CLINICAL HISTORY: Nausea and vomiting. Upper abdominal pain. COMPARISON STUDY: Abdominal CT dated 04/18/2022. TECHNIQUE: Following the IV administration of 91 cc of Optiray 350, CT scan of the abdomen and pelvis is performed from the lung bases to the proximal femora. Images are reviewed in the axial, sagittal, and coronal planes. IV contrast was administered without complication. A dose lowering technique was utilized adhering to the principles of ALARA. CT DOSE: 300.34 mGy.cm FINDINGS: Lung bases: The heart is normal in size and without pericardial effusion. There is elevation of the left hemidiaphragm with subsegmental atelectasis at the left lung base. Patchy ground glass consolidation is seen at the right lung base. No pleural effusion is identified. Liver: The contrast-enhanced liver is top normal in size and demonstrates diffusely diminished attenuation indicating severe steatosis. There is no intrahepatic biliary ductal dilatation. The hepatic veins and portal veins are patent. Gallbladder: Surgically absent noting clips in the gallbladder fossa. Spleen: Normal in size and attenuation. Pancreas: There is moderate glandular atrophy of the pancreas. Calcifications within the pancreatic head suggests chronic pancreatitis. There is mild infiltration and fluid adjacent to the pancreatic head suggesting mild acute pancreatitis. The gland enhances throughout. The duct is normal in caliber. No organized peripancreatic fluid collection is seen. Adrenal glands: Unremarkable. Kidneys: The contrast enhanced kidneys are normal in size and without hydronephrosis. The kidneys enhance symmetrically. Small bilateral nonobstructing renal calculi measuring up to 3 mm. No ureteral stone is seen. Abdominal vasculature: The abdominal aorta is normal in course and caliber noting mild age advanced atherosclerotic calcification. Bowel: There is no bowel obstruction. Some mucosal fat deposition throughout the colon is nonspecific and has been described in the setting of chronic inflammation. Question mild diffuse wall thickening of the colon versus underdistention. The appendix is well-visualized and normal. Peritoneum: There is no intraperitoneal free air or abdominal ascites. There is a small fat-containing umbilical hernia with a navel piercing in place. Lymphadenopathy: None. Pelvic viscera: The bladder is normal as visualized. The uterus is normal in appearance noting an intrauterine device in place. No adnexal lesion is seen. A 2.5 cm dominant follicle is noted in the left ovary. Skeletal structures: No lytic or blastic lesions are seen. IMPRESSION: 1. Findings suggest mild acute on chronic pancreatitis. Correlate with clinical and laboratory findings. 2. Severe hepatic steatosis. 3. Mild patchy groundglass consolidation is seen at the right lung base. Correlate clinically for evidence of a mild infectious/inflammatory pneumonitis. 4. Underdistention versus mild wall thickening of the colon. Correlate clinically for evidence of a mild nonspecific colitis. 5. Bilateral nephrolithiasis. 6. Additional findings as above. ACT 112: Negative or not required by law. Electronically signed by: Austin Hines M.D. 11/12/2022 11:19 AM Chest X-Ray 11/12/22 10:22 SINGLE VIEW CHEST CLINICAL HISTORY: Generalized abdominal pain. Nausea and vomiting FINDINGS: An AP, portable, upright chest radiograph is compared to study dated 04/18/2022. The cardiomediastinal silhouette is unremarkable. There is left basilar consolidation with elevation of the left hemidiaphragm. The right lung appears clear. No large pleural effusion or pneumothorax is seen. The bony thorax is grossly intact. IMPRESSION: Left basilar consolidation could represent atelectasis and/or pneumonia. Clinical correlation will be required and radiographic follow-up to resolution is recommended. ACT 112: Negative or not required by law. Electronically signed by: Austin Hines M.D. 11/12/2022 11:10 AM Wrist X-Ray 11/12/22 10:27 XR wrist RT min 3V routine CLINICAL HISTORY: pain fall TECHNIQUE: 4 views of the right wrist were obtained. Comparison: None available at the time of this dictation. FINDINGS: Redemonstration of a minimally displaced intra-articular fracture of the distal radius. Joint spaces are well-preserved. Soft tissue swelling is seen about the wrist. IMPRESSION: Redemonstration of minimally displaced intra-articular distal radial fracture with associated soft tissue swelling. ACT 112: Negative or not required by law. Electronically signed by: Armand Cohen M.D. 11/12/2022 10:[address] 11/12/22 13:06 CT chest diagnostic w con CLINICAL HISTORY: new L hemidiaphragm elevation TECHNIQUE: Multidetector row helical CT of the chest was performed with intravenous contrast. Coronal and sagittal reformations were obtained. Automated dose lowering techniques and/or adjustment according to patient size were utilized for this exam. CT DOSE: 223.26 mGycm Comparison: Comparison is made to chest radiograph 11/12/2022 FINDINGS: Lungs and pleura: An azygos fissure is incidentally noted. Atelectasis is seen in the left lower lobe corresponding to opacity seen on prior chest radiograph. There are a few groundglass opacities favoring the upper lobes Heart and pericardium: Heart size is normal. No pericardial effusion. Vessels: Unremarkable. Mediastinum and bj: Unremarkable. Chest wall and lower neck: Unremarkable. Abdomen: For findings below the diaphragm, please refer to CT of the abdomen dated the same. Bones: Degenerative changes in the thoracic spine. Anterior wedge deformity of T12 is noted. IMPRESSION: A few groundglass opacities are seen. The upper lobes, these may represent infectious/inflammatory process. Previously noted left lower lung airspace opacity represents atelectasis. ACT 112: Negative or not required by law. Electronically signed by: Armand Cohen M.D. 11/12/2022 2:15 PM Hospital Course (1) Chronic pancreatitis: Admitted to med/surg Had several bags of LR throughout hospitalization Patient states urinating multiple times and clear Kept NPO initially but has been advanced to low fat Pain control -- got 0.25mg diluadid in ER. Reports issues w/ morphine (avoiding given elevated LFTs) ordered 0.5mg IV q4h mild-moderate pain, 1mg q4h severe pain still has been requiring IV Dilaudid Antiemetics (Zofran) prn Protonix IV BID TG normal at 91 Resumed Creon Diet advancement tolerating, she will be discharged home today (2) Abnormal LFTs: TB wnl, elevated LFTs likely 2nd to alcohol use (AST>ALT) Hx cholecystectomy. Bilirubin normal Held home baclofen Using Dilaudid instead of morphine Avoid hepatotoxic medications Rec avoidance of alcohol use Urine drug screen - + Marijuana Also w/ hepatic steatosis, follow low fat diet and exercise LFTs slowly improving (3) GERD (gastroesophageal reflux disease): on daily PPI at home -- placed on PPI IV BID hx PUD Follows with [facility] --> has an o/p follow up scheduled with [facility] May eventually need EUS to evaluate the pancreas further (4) Wrist fracture: secondary to fall pain control & wrist splint consulted Dr Martinez - advised ongoing conservative management with wrist splint and f/u with Dr. Vyas (5) Diarrhea: reported diarrhea imaging w/ nonspecific colitis check stool PCR/monitor diarrhea Resolved (6) Portal vein thrombosis: hx of such, remains on eliquis 5mg BID -- continued as not actively vomiting can repeat portal vein US if warranted but she states she sees them routinely and likely remain on lifelong (7) Anxiety and depression: on clonazepam 1mg TID -- will continue prn ativan available as well for AWSS Fluoxetine and Mirtazapine were held d/t elevated LFTs, will resume upon dc (8) Marijuana use: medical marijuana use, ?cyclic vomiting however she reports hasn't used in several weeks Has not had any vomiting since admission and only mild nausea and resolves with Zofran + marijuana in UDS (9) Elevated hemidiaphragm: CT chest - A few groundglass opacities are seen. The upper lobes, these may represent infectious/inflammatory process. Previously noted left lower lung airspace opacity represents atelectasis. + tobacco abuse, afebrile, procalcitonin 0.07, normal wbc count, and normal O2 sats No need for antibiotics (10) Hypomagnesemia: Replacement ordered today Plan Patient is medically and hemodynamically stable for discharge home today. She has a follow up scheduled with GI which she has been told to keep as well as a follow up with ortho. She is to continue to wear her wrist splint and would avoid use of her right wrist for now or as otherwise instructed by orthopedics. She needs to abstain from alcohol also. She is to f/u with her pcp within 1 week. Plan of care has been d/w Dr. Chavez who has also seen and evaluated this patient and agrees with aforementioned. Total Time Total Time Spent Total Time Spent (In Minutes): >30 minutes Discharge Plan Discharge Items Patient Disposition: Home - Self-Care Reason For Visit: ACUTE ON CHRONIC PANCREATITIS Discharge Diagnosis: pancreatitis Activity: Resume your previous activity Non-emergency contact: Primary Care Provider and Engine Boss Call non-emergency contact if: you have any medication questions Follow-up/Referrals: Diane Sorenson MD [Primary Care Provider] - 11/20/22 12:00 pm Diet: Low Fat Addtl Attending Provider Instructions: You were hospitalized due to acute on chronic inflammation of the pancreas. You were placed on IV fluids, pain medications, and anti nausea medications. You were incidentally noted to have evidence of inflammation in your lungs; however, given you are not having respiratory symptoms, do not have a fever, or abnormal labs, this likely does not reflect a bacterial pneumonia and therefore will not be prescribed antibiotics. You have responded well to conservative treatment and your diet has been advanced, which you have continued to tolerate. You already have a follow up established with gastroenterology with Nahed Aguilera, please keep this appointment as scheduled. It is strongly advised that you continue to work on alcohol cessation. Keep your follow up as scheduled with Dr. Mckenzie (orthopedics) for your fractured wrist. Continue to use wrist splint that is currently in place. Prescription for Tramadol has been sent to your pharmacy. Use as directed, do not drive or operate machinery while taking this medication. You will need to follow up with your family physician/provider within 1 week of discharge. In the event that you have any questions or concerns following your discharge, feel free to contact the nonemergency number listed on your discharge paperwork. In the event of a medical emergency, call 911. Pending Studies at Discharge: No Stand-Alone Forms: [facility], Smoking Cessation Medications and DC Order Prescriptions: Continued pantoprazole 40 mg tablet,delayed release (DR/EC) 40 mg PO DAILY Qty: 90 1RF baclofen 5 mg tablet 5 mg PO BID Qty: 60 2RF Rx Instructions: Take 5mg pill with morning and pm dose of baclofen x tot of 70mg daily folic acid 1 mg tablet 1 mg PO DAILY Qty: 90 1RF Creon 36,000-114,000- 180,000 unit capsule,delayed release(DR/EC) 3 cap PO TID 90 Days Qty: 810 3RF methocarbamol 750 mg tablet 750 mg PO TID Qty: 90 1RF baclofen 20 mg tablet See Rx Instructions .ROUTE .COMPLEX Qty: 90 1RF Dose Instruction: TAKE 1 AND 1/2 TABLET BY MOUTH TWICE A DAY Rx Instructions: TAKE 1 AND 1/2 TABLET BY MOUTH TWICE A DAY fluticasone propionate 50 mcg/actuation spray,suspension 1 spray intranasal BID Qty: 16 0RF Rx Instructions: administer into each nostril clonazepam 1 mg tablet 1 mg PO TID Qty: 90 0RF fluoxetine 40 mg capsule 40 mg PO DAILY Qty: 30 5RF thiamine HCl (vitamin B1) 100 mg tablet 200 mg PO DAILY melatonin 10 mg capsule 10 mg PO HS PRN (Reason: Insomnia) magnesium citrate 100 mg tablet 300 mg PO DAILY prochlorperazine maleate [Compazine] 5 mg tablet 5 mg PO Q6H PRN (Reason: nausea and vomiting) Qty: 20 0RF mirtazapine 15 mg tablet 15 mg PO HS Qty: 30 5RF multivitamin Tablet 1 tab PO DAILY mecobalamin (vitamin B12) [B12 Active] 1,000 mcg Tablet,Chewable 1,000 mcg PO PM Eliquis 5 mg tablet 5 mg PO Q12 potassium chloride [Klor-Con M20] 20 mEq tablet,ER particles/crystals 20 meq PO DAILY Qty: 1 0RF No Action clindamycin phosphate 1 % gel 1 applic topical DAILY Qty: 30 1RF Rx Instructions: APPLY TOPICALLY DAILY FOR [facility] (DME) COVID-19 At-Home Test Kit See Rx Instructions .Route Qty: 8 0RF Rx Instructions: As directed/8 per month as needed ondansetron 4 mg tablet,disintegrating See Rx Instructions .ROUTE .COMPLEX Qty: 30 0RF Dose Instruction: TAKE 1 TABLET BY MOUTH EVERY 6 HOURS NEEDED FOR NAUSEA Rx Instructions: TAKE 1 TABLET BY MOUTH EVERY 6 HOURS NEEDED FOR NAUSEA promethazine 25 mg tablet See Rx Instructions .ROUTE .COMPLEX Qty: 10 0RF Dose Instruction: TAKE 1 TABLET BY MOUTH FOUR TIMES A DAY NEEDED FOR NAUSEA Rx Instructions: TAKE 1 TABLET BY MOUTH FOUR TIMES A DAY NEEDED FOR NAUSEA sumatriptan succinate 100 mg tablet See Rx Instructions .ROUTE .COMPLEX Qty: 16 4RF Dose Instruction: TAKE 1 TABLET BY MOUTH NEEDED FOR MIGRAINE/HEADACHE. MAY REPEAT 1 DOSE AFTER 1-2 HOURS Rx Instructions: TAKE 1 TABLET BY MOUTH NEEDED FOR MIGRAINE/HEADACHE. MAY REPEAT 1 DOSE AFTER 1-2 HOURS oxycodone 5 mg tablet 5 mg PO TID PRN (Reason: pain) Qty: 30 0RF Discharge Orders: Discharge Order (Routine); Ordered 11/14/22 Ordered By: Poly Wick Admission Data Admit Date/Time: 11/12/22 13:12 Attending Provider: Ariel Chavez Admit Provider: Camilo Martin Primary Care Provider: Diane Sorenson Other Providers: Fernando Martinez ; Camilo Martin Other Interventions: Discharge Summary Assessment (RN) Last Done: 11/14/22 13:59 Coding Level of Care Code HOSP INP/OBS DISCH >30 MIN Diagnoses Chronic pancreatitis K86.1 Abnormal LFTs R94.5 GERD (gastroesophageal reflux disease) K21.9 Wrist fracture S62.109A Diarrhea R19.7 Portal vein thrombosis I81 Anxiety and depression F41.9; F32.9 Marijuana use F12.90 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
[2022-11-14] MEDS ORDERED: MAGNESIUM SULFATE / D5W 1 GM/100 ML BAG IV ONE (11:20)
[2022-11-15 08:26] LABS: Marijuana Quant, GCMS Urine 35 ng/mL (<5)
== END 2022-11-14 14:46 | disposition home or self-care (01) | DRG 439 ==
LOC: 3W 08:31 → ED 08:31 → OBSVTOIN 13:12 → SUATTDRO 13:12 → 3W 14:49

== ENCOUNTER 2023-02-17 09:08 | Inpatient (IN) ==
[2023-02-17] MEDS ORDERED: ONDANSETRON INJ 2 MG/ML 2 ML VIAL IV STA ×2 (09:38→15:01)
[2023-02-17] MEDS ORDERED: SODIUM CHLORIDE 0.9% 1000ML 1,000 ML IV STA (09:38)
[2023-02-17] MEDS ORDERED: PANTOprazole 40 MG in SYRINGE 0 ML IV ONE (09:38)
[2023-02-17] MEDS ORDERED: fentaNYL citrate PF 100 MCG/2 ML VIAL IV PRN (09:38)
--- NOTE | 2023-02-17 09:42 | Emergency Department Note ---
Impression & Plan Acute pancreatitis, Abdominal pain, Nausea & vomiting ED Provider Note NAME: ADA DYSON AGE: 42 SEX: F : 1980 ARRIVES VIA: Walk-In INFORMANT: Patient, ED PROVIDER(S): Damon Tolliver DO CHIEF COMPLAINT: Vomiting HPI: The patient is a 42-year-old female who presented to the emergency department for an evaluation of abdominal pain nausea vomiting. The patient has a history of chronic alcohol abuse as well as pancreatitis. She did drink alcohol yesterday and thinks this is why she is having pain now. She denies having any hematemesis. She denies having any lower GI bleeding or black stool. Patient has not been seen by her family doctor for the symptoms. She denies having any fever. She denies having any recent trauma. She does have a history of gallstone pancreatitis as well. ROS: See above HPI for pertinent positives & negatives. A total of 10 systems reviewed and were otherwise negative. PAST MEDICAL HISTORY: See Below PAST SURGICAL HISTORY: See Below FAMILY HISTORY: See Below SOCIAL HISTORY: See Below HOME MEDICATIONS: See Below ALLERGIES: See Below VITALS: See Below PHYSICAL EXAMINATION: GENERAL: The patient is awake and alert. She is very anxious appearing. She appears to be uncomfortable. EYES: The conjunctivae are clear. The pupils are round and reactive. EARS, NOSE, MOUTH AND THROAT: The nose is without any evidence of any deformity. NECK: The neck is nontender and supple. RESPIRATORY: Normal respiratory effort is noted there is no evidence of wheezing rhonchi or rales CARDIOVASCULAR: Regular rate and rhythm noted there no murmurs rubs or gallops normal S1 normal S2. GASTROINTESTINAL: The abdomen is soft. Abdomen is nontender. MUSCULOSKELETAL/EXTREMITIES: There is no evidence of gross deformity full range of motion is noted in the hips and shoulders. SKIN: There is no obvious evidence of any rash. There are no petechiae, pallor or cyanosis noted. NEUROLOGIC: Patient is awake alert and oriented x3 strength is symmetric patellar reflexes are 2+ bilaterally MEDICAL DECISION MAKING: The patient is a 42-year-old female who presented to the emergency department for an evaluation of nausea vomiting and upper abdominal pain. She has a history of pancreatitis. She did admit to alcohol use over the weekend. The patient was treated with IV fluids and IV pain medication in the emergency department. She was reevaluated multiple times. She was found to have a very elevated white blood cell count. For this reason CT of the abdomen and pelvis was obtained. This appears to be consistent with pancreatitis. The patient was reevaluated multiple times. Given her findings I do feel the patient may be a better candidate for inpatient management. For this reason I discussed her condition with the on-call [facility]ist. They have agreed to evaluate the patient in the emergency department for further management and disposition. Triage Nursing notes reviewed. Prior medical records reviewed Vital Signs: reviewed and remarkable for tachycardia. Differential diagnosis: Gastroenteritis, food borne illness, infections, appendicitis, diverticulitis, inflammatory bowel disease, obstruction, GI bleed, biliary pathology, volvulus, as well as other pathologies. ER treatment provided: See below Diagnostics interpreted by me: ECG: EKG was obtained in the emergency department. My interpretation is normal sinus rhythm at 98 bpm. There is no ectopy. There is no acute ST segment abnormalities noted. This was compared to a tracing from April 23, 2022. No changes were noted. Cardiac Monitoring: An order was placed for continuous cardiac monitoring. The monitor shows a rate of 101 bpm with sinus tachycardia. Laboratory studies: As stated above and show below. Imaging studies: See below. Radiographic imaging was reviewed by myself Consultation(s): I discussed this case with Dr. Diaz who is on-call for the [facility]ist group. Past Med/Surg History Medical History (Updated 02/17/23 @ 13:51 by Damon Tolliver DO) Acne Acute gallstone pancreatitis Acute pancreatitis Alcohol abuse Anxiety and depression Back pain, chronic Chronic neck pain Distal radius fracture, right Fracture of distal phalanx of finger Fracture of middle phalanx of finger of right hand Fracture of third metacarpal bone of right hand GERD (gastroesophageal reflux disease) Hiatal hernia Insomnia Kidney failure 2009 (RESOLVED/SAW A [employer]) Liver enzyme elevation Marijuana use MCL sprain of right knee Migraines Pancreatic pseudocyst Pancreatitis alcoholic Pancreatitis, alcoholic, acute Panic attacks Peptic ulcer disease 2 YEARS AGO DX PTSD (post-traumatic stress disorder) Sleeping difficulty Tendinitis of right rotator cuff Toe fracture, left Surgical History "LAST APRIL" History of breast biopsy History of cholecystectomy History of esophagogastroduodenoscopy (EGD) History of esophagogastroduodenoscopy (EGD) 07/02/19- Dr. Gala Willett History of lumpectomy of right breast BENIGN History of tooth extraction Family History Father Family history of diabetes mellitus Myocardial infarction Stroke Hypertension Grandfather (Maternal) Family history of diabetes mellitus Grandmother (Maternal) Family history of diabetes mellitus Hypertension Cancer Mother Hypothyroidism Grandfather (Paternal) Cancer Heart problem Grandmother (Paternal) Hypertension Denies family history of Ovarian cancer Prostate cancer Breast cancer Colorectal cancer Social History Smoking Status: Current every day smoker Tobacco Type: Cigarettes Cigarettes Per Day: less than 1/2 pack a day; Second Hand Exposure: No; Do You Dip or Chew Tobacco: No; Hx Alcohol Use: No Hx Substance Use: Yes Last Used Substance: Just Prior to Arrival Last Used Substance Other:: [facility] PRESCRIBED Substance Use Type Other:: Smokes [employer] [facility] Preferred Language: [place] Communication Ability: Effective Visual Impairment: No Limitations Hearing Ability: Normal Electronic Technician Required: No Beliefs That Will Affect Care: None marital status: Single Current Living Situation: Parent Current Living Situation Comment: lives at home with mom current occupational status: employed How many Children do You have: 0 Feels Safe at Home: Yes Childhood Exposure to Second-Hand Smoke: No Diet: regular Diet Comment: regular Dental Care, Regularly: Yes Physical Activity Frequency: Does not Exercise Seatbelt Use: always Sunscreen Use: Yes Do you think of yourself as: straight/heterosexual Assistive Devices: None Allergies Allergies Allergy/AdvReac Type Severity Reaction Status Date / Time buspirone [From BuSpar] Allergy Severe Unconscious, Verified 02/17/23 12:57 seizures quetiapine [From Seroquel] Allergy Severe Unconscious, Verified 02/17/23 12:57 seizures citalopram [From Celexa] AdvReac Intermediate Vomiting Verified 02/17/23 12:57 morphine AdvReac Intermediate "MAKES ME Verified 02/17/23 12:57 SICK(VOMITING)" vilazodone [From Viibryd] AdvReac Vomiting Verified 02/17/23 12:57 Home Meds Home Medications Medication Instructions Recorded Confirmed multivitamin 1 tab PO QAM 03/18/19 02/17/23 mecobalamin (vitamin B12) 1,000 1,000 mcg PO QAM 11/10/19 02/17/23 mcg chewable tablet (B12 Active) apixaban 5 mg tablet (Eliquis) 5 mg PO Q12 04/12/21 02/17/23 thiamine HCl (vitamin B1) 100 mg 300 mg PO QAM 04/17/21 02/17/23 tablet melatonin 10 mg capsule 10 mg PO HS PRN Insomnia 09/04/21 02/17/23 magnesium citrate 100 mg tablet 100 mg PO QAM 05/23/22 02/17/23 baclofen 20 mg tablet See Rx Instructions .Route .COMPLEX 02/17/23 02/17/23 baclofen 5 mg tablet See Rx Instructions .Route .COMPLEX 02/17/23 02/17/23 clindamycin phosphate 1 % topical 1 applic topical DAILY PRN Acne 02/17/23 02/17/23 gel folic acid 1 mg tablet 1 mg PO QAM 02/17/23 02/17/23 potassium chloride 20 mEq 20 meq PO QAM 02/17/23 02/17/23 tablet,extended release(part/cryst) (Magnolia Chavez) Previous Rx's Medication Instructions Recorded fluticasone propionate 50 1 spray intranasal BID #16 grams 07/18/22 mcg/actuation nasal spray,suspension [id number] 3 cap PO TID Abdominal Discomfort 09/16/22 36,000-114,000-180,000 unit 90 days #810 caps capsule,delay rel (Creon) COVID-19 antigen test (COVID-19 #8 ea 11/18/22 At-Home Test kit) sumatriptan succinate 100 mg tablet See Rx Instructions .Route 11/18/22 .COMPLEX #16 tabs methocarbamol 750 mg tablet 750 mg PO TID #90 tabs 12/11/22 clonazepam 1 mg tablet 1 mg PO TID #90 tabs 01/09/23 ondansetron 4 mg disintegrating See Rx Instructions .Route 01/22/23 tablet .COMPLEX #30 tabs promethazine 25 mg tablet See Rx Instructions .Route 01/22/23 .COMPLEX #10 tabs pantoprazole 40 mg tablet,delayed 40 mg PO BID #180 tabs 01/23/23 release Results & Data (ED) Vital Signs Vital Signs - 24 hr 02/17/23 09:18 02/17/23 09:37 02/17/23 10:02 Temperature 36.5 C Temperature Source Temporal Artery Scan Pulse Rate 129 H Pulse Rate [Apical] 122 H 113 H Respiratory Rate 20 18 18 Respiratory Effort / Characteristics Non-Labored Spontaneous Spontaneous Respiratory Depth Normal Normal Blood Pressure 141/92 H Blood Pressure [Left Arm] 145/103 H 132/101 H Blood Pressure Mean 108 Blood Pressure Mean [Left Arm] 117 111 Pulse Oximetry 99 96 95 Oxygen Delivery Method Room Air Room Air Room Air Sepsis Recent Fever Within 48 Hours No Sepsis New/Unexplained Change in Mental Status No Sepsis Action Taken by Nursing No Action Required 02/17/23 09:46 02/17/23 11:00 02/17/23 11:27 Temperature Temperature Source Pulse Rate 120 H Pulse Rate [Apical] 97 H 109 H Respiratory Rate 18 18 Respiratory Effort / Characteristics Non-Labored Non-Labored Respiratory Depth Normal Normal Blood Pressure Blood Pressure [Left Arm] 145/97 H 122/94 Blood Pressure Mean Blood Pressure Mean [Left Arm] 113 103 Pulse Oximetry 95 96 Oxygen Delivery Method Room Air Room Air Sepsis Recent Fever Within 48 Hours Sepsis New/Unexplained Change in Mental Status Sepsis Action Taken by Nursing 02/17/23 13:12 02/17/23 13:47 Temperature Temperature Source Pulse Rate 101 H Pulse Rate [Apical] 105 H Respiratory Rate 18 Respiratory Effort / Characteristics Non-Labored Respiratory Depth Normal Blood Pressure Blood Pressure [Left Arm] 113/94 Blood Pressure Mean Blood Pressure Mean [Left Arm] 100 Pulse Oximetry 95 Oxygen Delivery Method Room Air Sepsis Recent Fever Within 48 Hours Sepsis New/Unexplained Change in Mental Status Sepsis Action Taken by Skilled Nursing Medications Current Medication List: was personally reviewed by me Laboratory Data Attestation: I reviewed the patient's lab results. 02/17/23 09:35 02/17/23 09:35 Lab Results 02/17/23 02/17/23 02/17/23 Range/Units 09:35 09:35 09:35 WBC 17.19 H (4.8-10.8) K/ul RBC 5.28 (4.20-5.40) M/uL Hgb 16.2 H (12.0-16.0) g/dl Hct 47.2 H (37.0-47.0) % MCV 89.4 (80.0-100.0) fL MCH 30.7 (25.0-34.0) pg MCHC 34.3 (32.0-36.0) g/dL RDW Std Deviation 59.0 H (36.4-46.3) fL RDW Coeff of Jessica 18.4 H (11.5-14.5) % Plt Count 329 (130-400) K/uL MPV 10.2 (9.4-12.4) fL Immature Gran % (Auto) 0.3 % Neut % (Auto) 86.1 % Lymph % (Auto) 9.5 % [place] % (Auto) 3.7 % Eos % (Auto) 0.1 % Baso % (Auto) 0.3 % Neut # (Auto) 14.78 H (1.40-6.50) K/uL Lymph # (Auto) 1.64 (1.2-3.4) K/uL [place] # (Auto) 0.64 H (0.11-0.59) K/uL Eos # (Auto) 0.02 (0-0.50) K/uL Baso # (Auto) 0.05 (0-0.2) K/uL Immature Gran # (Auto) 0.06 (0.01-0.20) K/uL Sodium 136 (136-145) mmol/L Potassium 3.3 L (3.5-5.1) mmol/L Chloride 93 L (98-107) mmol/L Carbon Dioxide 30 (21-32) mmol/L Anion Gap 13 H (3-11) BUN 10 (6-23) mg/dl Creatinine 0.74 (0.6-1.2) mg/dl Est Cr Clr Drug Dosing 81.1 ml/min Est GFR ( Amer) 115.0 ml/min Est GFR (Non-Af Amer) 99.2 ml/min BUN/Creatinine Ratio 13.5 (10-20) Glucose 139 H (70-99(Fasting)) mg/dl Calcium 9.5 (8.6-10.3) mg/dl Total Bilirubin 0.8 (0.2-1.0) mg/dl AST 59 H (13-39) U/L ALT 42 (7-52) U/L Alkaline Phosphatase 321 H (34-104) U/L Troponin I High Sens 4.4 (0-14) pg/ml Total Protein 7.8 (6.0-8.3) gm/dl Albumin 4.6 (3.4-5.0) gm/dl Globulin 3.2 (2.5-4.0) gm/dl Albumin/Globulin Ratio 1.4 (0.9-2) Lipase 71 (11-82) U/L HCG, Qual Negative (Negative) Urine Color Urine Appearance (Clear) Urine pH (4.5-7.5) Ur Specific [place] (1.000-1.030) Urine Protein (Negative) Urine Glucose (UA) (Negative) Urine Ketones (Negative) Urine Blood (Negative) Urine Nitrite (Negative) Urine Bilirubin (Negative) Urine Urobilinogen (Negative) Ur Leukocyte Esterase (Negative) Urine WBC (Auto) (0-5) /hpf Urine RBC (Auto) (0-4) /hpf U Hyaline Cast (Auto) (0-5) /lpf U Epithel Cells (Auto) (0-5) /lpf Urine Bacteria (Auto) (Negative) Ethyl Alcohol mg/dL (<10.0) mg/dl SARS-CoV-2, RNA, NAAT (NEGATIVE) 02/17/23 02/17/23 02/17/23 Range/Units 09:54 10:03 11:34 WBC (4.8-10.8) K/ul RBC (4.20-5.40) M/uL Hgb (12.0-16.0) g/dl Hct (37.0-47.0) % MCV (80.0-100.0) fL MCH (25.0-34.0) pg MCHC (32.0-36.0) g/dL RDW Std Deviation (36.4-46.3) fL RDW Coeff of Jessica (11.5-14.5) % Plt Count (130-400) K/uL MPV (9.4-12.4) fL Immature Gran % (Auto) % Neut % (Auto) % Lymph % (Auto) % [place] % (Auto) % Eos % (Auto) % Baso % (Auto) % Neut # (Auto) (1.40-6.50) K/uL Lymph # (Auto) (1.2-3.4) K/uL [place] # (Auto) (0.11-0.59) K/uL Eos # (Auto) (0-0.50) K/uL Baso # (Auto) (0-0.2) K/uL Immature Gran # (Auto) (0.01-0.20) K/uL Sodium (136-145) mmol/L Potassium (3.5-5.1) mmol/L Chloride (98-107) mmol/L Carbon Dioxide (21-32) mmol/L Anion Gap (3-11) BUN (6-23) mg/dl Creatinine (0.6-1.2) mg/dl Est Cr Clr Drug Dosing ml/min Est GFR ( Amer) ml/min Est GFR (Non-Af Amer) ml/min BUN/Creatinine Ratio (10-20) Glucose (70-99(Fasting)) mg/dl Calcium (8.6-10.3) mg/dl Total Bilirubin (0.2-1.0) mg/dl AST (13-39) U/L ALT (7-52) U/L Alkaline Phosphatase (34-104) U/L Troponin I High Sens (0-14) pg/ml Total Protein (6.0-8.3) gm/dl Albumin (3.4-5.0) gm/dl Globulin (2.5-4.0) gm/dl Albumin/Globulin Ratio (0.9-2) Lipase (11-82) U/L HCG, Qual (Negative) Urine Color Yellow Urine Appearance Clear (Clear) Urine pH 7.5 (4.5-7.5) Ur Specific [place] 1.024 (1.000-1.030) Urine Protein Negative (Negative) Urine Glucose (UA) Negative (Negative) Urine Ketones Negative (Negative) Urine Blood Trace H (Negative) Urine Nitrite Negative (Negative) Urine Bilirubin Negative (Negative) Urine Urobilinogen Negative (Negative) Ur Leukocyte Esterase Negative (Negative) Urine WBC (Auto) 1-5 (0-5) /hpf Urine RBC (Auto) 0-4 (0-4) /hpf U Hyaline Cast (Auto) 0 (0-5) /lpf U Epithel Cells (Auto) 0-5 (0-5) /lpf Urine Bacteria (Auto) Negative (Negative) Ethyl Alcohol mg/dL < 10.0 (<10.0) mg/dl SARS-CoV-2, RNA, NAAT NEGATIVE (NEGATIVE) Administered Medications Fentanyl Citrate (Fentanyl Citrate Pf 100 Mcg/2 Ml Vial) 50 mcg IV Q15M PRN PRN Reason: Pain Stop: 03/03/23 09:37 Last Admin: 02/17/23 09:57 Dose: 50 mcg Documented By: ELLI Hydromorphone HCl (Hydromorphone Inj 0.5 Mg/0.5 Ml Syr) 0.5 mg IV Q15M PRN PRN Reason: Pain Stop: 03/03/23 10:53 Last Admin: 02/17/23 10:59 Dose: 0.5 mg Documented By: ELLI Discontinued Medications Sodium Chloride (Nss 1000ml) 1,000 mls @ 999 mls/hr IV .Q1H1M STA Stop: 02/17/23 10:38 Last Infusion: 02/17/23 10:45 Dose: 0 mls/hr Documented By: Admin: 02/17/23 09:57 Dose: 999 mls/hr Documented By: ELLI Pantoprazole Sodium 40 mg/ (Syringe) 10 mls @ 5 mls/min IV NOW ONE Stop: 02/17/23 09:39 Last Admin: 02/17/23 10:38 Dose: 5 mls/min Documented By: ELLI Promethazine HCl 12.5 mg/ (Sodium Chloride) 50.5 mls @ 202 mls/hr IV NOW STA Stop: 02/17/23 12:43 Last Infusion: 02/17/23 13:12 Dose: 0 mls/hr Documented By: Admin: 02/17/23 12:57 Dose: 202 mls/hr Documented By: SARA Ioversol (Optiray 320 100ml) 89 ml IV ONCE ONE Stop: 02/17/23 11:23 Last Admin: 02/17/23 11:16 Dose: 89 ml Documented By: HATTIE Lorazepam (Lorazepam 2 Mg/1 Ml Vial) 1 mg IV NOW STA Stop: 02/17/23 12:30 Last Admin: 02/17/23 12:43 Dose: 1 mg Documented By: SARA Ondansetron HCl (Ondansetron Inj 2 Mg/Ml 2 Ml Vial) 4 mg IV NOW STA Stop: 02/17/23 09:39 Last Admin: 02/17/23 09:57 Dose: 4 mg Documented By: ELLI Imaging Data Attestation: I personally reviewed and interpreted this imaging study as follows: My Impression: CT of the abdomen and pelvis was obtained in the emergency department. My interpretation is no free air, no signs of obstruction, final report below. Radiologist's Impression: Abdomen/Pelvis CT 02/17/23 10:54 CT abd pelvis IV con only CLINICAL HISTORY: upper abd pain TECHNIQUE: Helical axial images of the abdomen and pelvis were obtained and displayed. Automated dose lowering techniques and/or adjustment according to patient size were utilized for this exam. This exam was performed with intravenous contrast. CT DOSE: 562.00 mGy.cm COMPARISON: Comparison is made to CT abdomen pelvis 11/12/2022 FINDINGS: Lower chest: Groundglass opacities are seen in the lower lungs. Atelectasis is noted at the left lung base. Liver: Hepatic steatosis is noted. Gallbladder and biliary tree: Patient is status post cholecystectomy. No intra- or extrahepatic biliary ductal dilation. Pancreas: Peripancreatic fat stranding is seen about the head and proximal body. No evidence of pancreatic necrosis. A few calcifications are seen. Spleen: Unremarkable. Adrenals: Unremarkable. Kidneys and ureters: Nonobstructive nephrolithiasis is seen. Bladder: Unremarkable. Reproductive organs: Intrauterine device is noted. Bowel: Unremarkable. Submucosal fat deposition throughout the colon is again seen, nonspecific. Mild prominence of the colonic wall is unchanged. Lymph nodes Retroperitoneal: Unremarkable. Pelvic: Unremarkable. Mesenteric: Unremarkable. Peritoneum: Normal. Vessels: Atherosclerotic calcifications are seen. Abdominal wall: Unremarkable. Bones: Degenerative changes in the visualized spine. IMPRESSION: 1. Pancreatitis without evidence of pancreatic necrosis or peripancreatic fluid collections. 2. Groundglass opacities in the right lower lung are somewhat more prominent than in the prior exam compatible with pneumonia. 3. Hepatic steatosis. 4. Status post cholecystectomy. 5. Normal appendix. 6. Additional findings as above. ACT 112: Negative or not required by law. Electronically signed by: Armand Cohen M.D. 02/17/2023 12:05 PM Discharge Plan Visit Data Chief Complaint: Vomiting Stated Complaint: VOMITING ED Provider: Damon Tolliver Discharge Problem: Acute pancreatitis, Abdominal pain, Nausea & vomiting Patient Disposition: Being Evaluated by Hospitalist Forms Stand Alone Forms: My [facility] [employer] Prescriptions Prescriptions: No Action Creon 36,000-114,000- 180,000 unit capsule,delayed release(DR/EC) 3 cap PO TID 90 Days Qty: 810 3RF (DME) COVID-19 At-Home Test Kit See Rx Instructions .Route Qty: 8 0RF Rx Instructions: As directed/8 per month as needed sumatriptan succinate 100 mg tablet See Rx Instructions .ROUTE .COMPLEX Qty: 16 4RF Dose Instruction: TAKE 1 TABLET BY MOUTH NEEDED FOR MIGRAINE/HEADACHE. MAY REPEAT 1 DOSE AFTER 1-2 HOURS Rx Instructions: TAKE 1 TABLET BY MOUTH NEEDED FOR MIGRAINE/HEADACHE. MAY REPEAT 1 DOSE AFTER 1-2 HOURS methocarbamol 750 mg tablet 750 mg PO TID Qty: 90 1RF ondansetron 4 mg tablet,disintegrating See Rx Instructions .ROUTE .COMPLEX Qty: 30 0RF Dose Instruction: TAKE 1 TABLET BY MOUTH EVERY 6 HOURS NEEDED FOR NAUSEA Rx Instructions: TAKE 1 TABLET BY MOUTH EVERY 6 HOURS NEEDED FOR NAUSEA promethazine 25 mg tablet See Rx Instructions .ROUTE .COMPLEX Qty: 10 0RF Dose Instruction: TAKE 1 TABLET BY MOUTH FOUR TIMES A DAY NEEDED FOR NAUSEA Rx Instructions: TAKE 1 TABLET BY MOUTH FOUR TIMES A DAY NEEDED FOR NAUSEA pantoprazole 40 mg tablet,delayed release (DR/EC) 40 mg PO BID Qty: 180 1RF fluticasone propionate 50 mcg/actuation spray,suspension 1 spray intranasal BID Qty: 16 0RF Rx Instructions: administer into each nostril thiamine HCl (vitamin B1) 100 mg tablet 300 mg PO QAM melatonin 10 mg capsule 10 mg PO HS PRN (Reason: Insomnia) magnesium citrate 100 mg tablet 100 mg PO QAM clonazepam 1 mg tablet 1 mg PO TID Qty: 90 0RF multivitamin Tablet 1 tab PO QAM mecobalamin (vitamin B12) [B12 Active] 1,000 mcg Tablet,Chewable 1,000 mcg PO QAM Eliquis 5 mg tablet 5 mg PO Q12 baclofen 20 mg tablet See Rx Instructions .ROUTE .COMPLEX Rx Instructions: Take 40mg by mouth w/ 5mg tablet twice daily to equal 45mg with each dose. potassium chloride [Klor-Con M20] 20 mEq tablet,ER particles/crystals 20 meq PO QAM clindamycin phosphate 1 % gel 1 applic topical DAILY PRN (Reason: Acne) Rx Instructions: APPLY TOPICALLY DAILY FOR ACNE folic acid 1 mg tablet 1 mg PO QAM baclofen 5 mg tablet See Rx Instructions .ROUTE .COMPLEX Rx Instructions: Take 5mg pill with 40mg dose of baclofen twice daily to equal 45mg with each dose Referrals Referrals: Diane Sorenson MD [Primary Care Provider] - Acute pancreatitis Qualifiers: Pancreatitis type: unspecified pancreatitis type Acute pancreatitis co mplication: unspecified Qualified Code(s): K85.90 - Acute pancreatitis without necrosis or infection, unspecified Abdominal pain Qualifiers: Abdominal location: epigastric Qualified Code(s): R10.13 - Epigastric pain Nausea & vomiting Qualifiers: Vomiting type: unspecified Qualified Code(s): R11.2 - Nausea with vomiting, unspecified
[2023-02-17 09:49] LABS: Basophils # (auto) 0.05 K/uL (0-0.2); Basophils % (auto) 0.3 %; Eosinophils # (auto) 0.02 K/uL (0-0.50); Eosinophils % (auto) 0.1 %; Hematocrit (blood only) 47.2 % (37.0-47.0); Hemoglobin 16.2 g/dl (12.0-16.0); Immature Granulocytes # (auto) 0.06 K/uL (0.01-0.20); Immature Granulocytes % (auto) 0.3 %; Lymphocytes # (auto) 1.64 K/uL (1.2-3.4); Lymphocytes % (auto) 9.5 %; Mean Corpuscular Hemoglobin 30.7 pg (25.0-34.0); Mean Corpuscular Hgb Conc 34.3 g/dL (32.0-36.0); Mean Corpuscular Volume 89.4 fL (80.0-100.0); Mean Platelet Volume 10.2 fL (9.4-12.4); Monocytes # (auto) 0.64 K/uL (0.11-0.59); Monocytes % (auto) 3.7 %; Neutrophils # (auto) 14.78 K/uL (1.40-6.50); Neutrophils % (auto) 86.1 %; Platelet Count 329 K/uL (130-400); RDW Coefficient of Variation 18.4 % (11.5-14.5); Red Blood Count 5.28 M/uL (4.20-5.40); White Blood Count 17.19 K/ul (4.8-10.8)
[2023-02-17 10:05] LABS: Pregnancy Test, Serum Negative (Negative)
[2023-02-17 10:11] LABS: Albumin Globulin Ratio 1.4 (0.9-2); Albumin Level 4.6 gm/dl (3.4-5.0); BUN Creatinine Ratio 13.5 (10-20); Bilirubin,Total 0.8 mg/dl (0.2-1.0); Calcium 9.5 mg/dl (8.6-10.3); Creatinine Clr Calc Pharmacy 81.1 ml/min; Est GFR (Non-African American) 99.2 ml/min; Globulin 3.2 gm/dl (2.5-4.0); Potassium 3.3 mmol/L (3.5-5.1); Total Protein 7.8 gm/dl (6.0-8.3)
[2023-02-17 10:16] LABS: Troponin I High Sensitivity 4.4 pg/ml (0-14)
[2023-02-17] MEDS: HYDROmorphone INJ 0.5 MG/0.5 ML SYR IV PRN ×2 (10:59→15:11)
[2023-02-17] MEDS ORDERED: OPTIRAY 320 100ml IV ONE (11:22)
--- NOTE | 2023-02-17 12:06 | CT Scan Report ---
CT abd pelvis IV con only CLINICAL HISTORY: upper abd pain TECHNIQUE: Helical axial images of the abdomen and pelvis were obtained and displayed. Automated dose lowering techniques and/or adjustment according to patient size were utilized for this exam. This e xam was performed with intravenous contrast. CT DOSE: 562.00 mGy.cm COMPARISON: Comparison is made to CT abdomen pelvis 11/12/2022 FINDINGS: Lower chest: Groundglass opacities are seen in the lower lungs. Atelectasis is noted at the left ryan g base. Liver: Hepatic steatosis is noted. Gallbladder and biliary tree: Patient is status post cholecystectomy. No intra- or extrahepatic bilia ry ductal dilation. Pancreas: Peripancreatic fat stranding is seen about the head and proximal body. No evidence of pancr eatic necrosis. A few calcifications are seen. Spleen: Unremarkable. Adrenals: Unremarkable. Kidneys and ureters: Nonobstructive nephrolithiasis is seen. Bladder: Unremarkable. Reproductive organs: Intrauterine device is noted. Bowel: Unremarkable. Submucosal fat deposition throughout the colon is again seen, nonspecific. Mild prominence of the colonic wall is unchanged. Lymph nodes Retroperitoneal: Unremarkable. Pelvic: Unremarkable. Mesenteric: Unremarkable. Peritoneum: Normal. Vessels: Atherosclerotic calcifications are seen. Abdominal wall: Unremarkable. Bones: Degenerative changes in the visualized spine. IMPRESSION: 1. Pancreatitis without evidence of pancreatic necrosis or peripancreatic fluid collections. 2. Groundglass opacities in the right lower lung are somewhat more prominent than in the prior exam compatible with pneumonia. 3. Hepatic steatosis. 4. Status post cholecystectomy. 5. Normal appendix. 6. Additional findings as above. ACT 112: Negative or not required by law. Electronically signed by: Armand Cohen M.D. 02/17/2023 12:05 PM
[2023-02-17 12:21] LABS: Appearance Urine Clear (Clear); Bacteria Urine Automated Negative (Negative); Bilirubin Urine Negative (Negative); Blood Urine Trace (Negative); Cast Urine Automated 0 /lpf (0-5); Color Urine Yellow; Epithelial Cell Urine Auto 0-5 /lpf (0-5); Glucose Urine UA Negative (Negative); Ketones Urine Negative (Negative); Leukocyte Esterase Urine Negative (Negative); Nitrite Urine Negative (Negative); Protein Urine Negative (Negative); RBC Urine Automated 0-4 /hpf (0-4); Specific Gravity Urine 1.024 (1.000-1.030); Urobilinogen Urine Negative (Negative); pH Urine 7.5 (4.5-7.5)
[2023-02-17] MEDS ORDERED: LORazepam 2 MG/1 ML VIAL IV STA (12:29)
[2023-02-17] MEDS ORDERED: PROMETHAZINE HCL 12.5 MG in SODIUM CHLORIDE 0.9% 50 ML IV STA (12:29)
--- NOTE | 2023-02-17 13:05 | History & Physical Report ---
Date of Service February 17, 2023 Assessment & Plan (1) Acute on chronic pancreatitis: Plan: Acute on Chronic pancreatitis With relapse of alcohol use approximately 1 week ago for several days, gradual progression of pain similar to prior pancreatitis pain since drinking alcohol MRI with and without contrast 06/2022 showed chronic pancreatitis, is on surveillance monitoring On admission leukocytosis new of 17.19, lipase is not elevated at 71. ALT is normal, trace AST elevation of 59 alk phos 321 and bilirubin is normal at 0.8. Patient does appear hemoconcentrated with elevated Hgb as well Potassium low at 3.3 CT-A/P: 1. Pancreatitis without evidence of pancreatic necrosis or peripancreatic fluid collections. 2. Groundglass opacities in the right lower lung are somewhat more prominent than in the prior exam compatible with pneumonia. 3. Hepatic steatosis.4. Status post cholecystectomy.5. Normal appendix.6. Additional findings as above. N.p.o. Acute pain control Dilaudid 0.25-0.5 mg every 4 hours scaled analgesia Zofran as needed Protonix IV twice daily due to concurrent GERD symptoms and anticoagulation history Pro-Rivera pending Alcohol on admission negative COVID-negative on admission UA bland on admission Avoid hepatotoxic medications N.p.o., LR 125 cc/h. Patient received initiated fluids resuscitation of 1 L NSS, appears slightly dry and mildly tachycardic, 500 cc additional bolus and then maintenance. Rebolus as needed on clinical reassessment No evidence of necrosis/peripancreatic fluid collections are noted. , GERD With? Exacerbation from alcohol No melena, no bright red blood per rectum, no bloody emesis Hemoglobin increased from prior, patient appears hemoconcentrated We will trend H&H, follow clinically for signs of melena/bleeding, continue PPI IV twice daily Patient is pending a EGD and gastric emptying study as outpatient in the next 2 weeks. No signs of acute bleeding on admission, suspect current symptoms are due to acute on chronic pancreatitis rather than gastroparesis. Bibasilar GGO, cough Present for about 1 week, mild without sputum production Patient feels flushed and intermittently feverish with her pain, denies fevers at home. No shortness of breath or difficulty breathing Given GGO's above and possibility for aspiration in the setting of alcohol use/vomiting will obtain CXR and Pro-Rivera, give 24hrs dose of empiric unasyn and hold additional pending fever curve/WBC pend/Pro-Rivera. Rocephin deferred 10/31 LR. Hepatic steatosis Negative AFP and fibrosis testing 06/2022 In the setting of alcohol us use Transaminitis is improved compared to prior We will trend CMP, if stable can start dose reduced Tylenol 2 g daily max tomorrow Ongoing nausea/vomiting Symptomatic care for pancreatitis as above Portal vein thrombosis, chronic Eliquis 5 mg twice daily held, patient is not able to keep pills down. Switched to heparin gtt. until tolerating p.o. DVT prophylaxis: Switched from DOAC to heparin CODE STATUS: Full code Disposition: Medical/telemetry Diet: N.p.o., LR (2) GERD (gastroesophageal reflux disease): (3) Generalized anxiety disorder with panic attacks: (4) PTSD (post-traumatic stress disorder): (5) Smoker: History of Present Illness Primary Care Provider: Diane Sorenson MD Nadja is a 42-year-old female with past medical history of chronic pancreatitis, gastritis, generalized anxiety disorder with panic on fluoxetine/clonazepam with recently discontinued mirtazapine 1 month ago, alcohol abuse, tobacco use, portal venous thrombosis on long-term anticoagulation with peptic ulcer disease and GERD last seen by GI on 11/18/2022 who noted she had slipped with regard to alcohol cessation and having 3 to 4 glasses of wine per day due to recent diagnosis of Parkinson's in her father. She not had melena/hematochezia at that time. Nadja reprots she has had a few days of abdominal pain similar to prior episodes of pancreatitis Reports she does not drink anymore but had a few mishap a few days ago with recurrence of pain then no ETOH for a while but then last week had some alcohol and started to get pain again. Notes that apast stalker popped back up in her life which caused her stress last week and started drinking again 4-5 days ago. Since then was drinking everyday wine ~3-4 glasses per day. Has chronic pancreatitis and notes does not take much to cause severe irritation of pain. Last drink yesterday 5pm. No hx of withdrawal. Prior to last week has had acid reflux with meals for which she sees GI as outpatient. Was pending an EGD this week as outpatient and nuclear gastric emptying study next week. She does not remember what day, does not have her demand planner with her. Was supposed to go to PT today for R repeat wrist fracture. no bloody or black bowel movements. No chest pain or chest pressure +severe abdominal pain in LUQ and epigastrum which is worsened with deep breathing Still taking eliquis. Missed her morning dose day and took only once yesterday b/c she was nauseus and vomiting. +mild cough x7 days 'didn't really notice much.' No sputum production Intermittent warmth/flushing and maybe feverish with lip peeling earlier in the week, no chills/night sweats "I don't need alcohol conversion. I made a mistake but now I'm in a lot of pain." Dilaudid helped in the past No dysuria Medical History: Reviewed Medications: Reviewed Surgical History: Reviewed Family history: Reviewed Allergies: Reviewed. Morphing makes nauseus/vomit. Social History: ETOH as noted. Cigarettes0.5ppd. Code Status: Full Code Allergies Allergy/AdvReac Type Severity Reaction Status Date / Time buspirone [From BuSpar] Allergy Severe Unconscious, Verified 02/17/23 12:57 seizures quetiapine [From Seroquel] Allergy Severe Unconscious, Verified 02/17/23 12:57 seizures citalopram [From Celexa] AdvReac Intermediate Vomiting Verified 02/17/23 12:57 morphine AdvReac Intermediate "MAKES ME Verified 02/17/23 12:57 SICK(VOMITING)" vilazodone [From Viibryd] AdvReac Vomiting Verified 02/17/23 12:57 Home Medications Medication Instructions Recorded Confirmed Type multivitamin 1 tab PO QAM 03/18/19 02/17/23 History mecobalamin (vitamin B12) 1,000 1,000 mcg PO QAM 11/10/19 02/17/23 History mcg chewable tablet (B12 Active) apixaban 5 mg tablet (Eliquis) 5 mg PO Q12 04/12/21 02/17/23 History thiamine HCl (vitamin B1) 100 mg 300 mg PO QAM 04/17/21 02/17/23 History tablet melatonin 10 mg capsule 10 mg PO HS PRN Insomnia 09/04/21 02/17/23 History magnesium citrate 100 mg tablet 100 mg PO QAM 05/23/22 02/17/23 History fluticasone propionate 50 1 spray intranasal BID #16 grams 07/18/22 02/17/23 Rx mcg/actuation nasal spray,suspension [id number] 3 cap PO TID Abdominal Discomfort 09/16/22 02/17/23 Rx 36,000-114,000-180,000 unit 90 days #810 caps capsule,delay rel (Creon) COVID-19 antigen test (COVID-19 #8 ea 11/18/22 01/24/23 Rx At-Home Test kit) sumatriptan succinate 100 mg tablet See Rx Instructions .Route 11/18/22 02/17/23 Rx .COMPLEX #16 tabs methocarbamol 750 mg tablet 750 mg PO TID #90 tabs 12/11/22 02/17/23 Rx clonazepam 1 mg tablet 1 mg PO TID #90 tabs 01/09/23 02/17/23 Rx ondansetron 4 mg disintegrating See Rx Instructions .Route 01/22/23 02/17/23 Rx tablet .COMPLEX #30 tabs promethazine 25 mg tablet See Rx Instructions .Route 01/22/23 02/17/23 Rx .COMPLEX #10 tabs pantoprazole 40 mg tablet,delayed 40 mg PO BID #180 tabs 01/23/23 02/17/23 Rx release baclofen 20 mg tablet See Rx Instructions .Route .COMPLEX 02/17/23 02/17/23 History baclofen 5 mg tablet See Rx Instructions .Route .COMPLEX 02/17/23 02/17/23 History clindamycin phosphate 1 % topical 1 applic topical DAILY PRN Acne 02/17/23 02/17/23 History gel folic acid 1 mg tablet 1 mg PO QAM 02/17/23 02/17/23 History potassium chloride 20 mEq 20 meq PO QAM 02/17/23 02/17/23 History tablet,extended release(part/cryst) (Klor-Con M) Past Med/Surg History Medical History (Updated 02/17/23 @ 13:20 by Enrique Myers MD) Acne Acute gallstone pancreatitis Acute pancreatitis Alcohol abuse Anxiety and depression Back pain, chronic Chronic neck pain Distal radius fracture, right Fracture of distal phalanx of finger Fracture of middle phalanx of finger of right hand Fracture of third metacarpal bone of right hand GERD (gastroesophageal reflux disease) Hiatal hernia Insomnia Kidney failure 2009 (RESOLVED/SAW A FREQUENCY CHECKER) Liver enzyme elevation Marijuana use MCL sprain of right knee Migraines Pancreatic pseudocyst Pancreatitis alcoholic Pancreatitis, alcoholic, acute Panic attacks Peptic ulcer disease 2 YEARS AGO DX PTSD (post-traumatic stress disorder) Sleeping difficulty Tendinitis of right rotator cuff Toe fracture, left Surgical History "LAST APRIL" History of breast biopsy History of cholecystectomy History of esophagogastroduodenoscopy (EGD) History of esophagogastroduodenoscopy (EGD) 07/02/19- Dr. Gala iWllett History of lumpectomy of right breast BENIGN History of tooth extraction Family History Father Family history of diabetes mellitus Myocardial infarction Stroke Hypertension Grandfather (Maternal) Family history of diabetes mellitus Grandmother (Maternal) Family history of diabetes mellitus Hypertension Cancer Mother Hypothyroidism Grandfather (Paternal) Cancer Heart problem Grandmother (Paternal) Hypertension Denies family history of Ovarian cancer Prostate cancer Breast cancer Colorectal cancer Social History Smoking Status: Current every day smoker Tobacco Type: Cigarettes Cigarettes Per Day: less than 1/2 pack a day; Second Hand Exposure: No; Do You Dip or Chew Tobacco: No; Hx Alcohol Use: No Hx Substance Use: Yes Last Used Substance: Just Prior to Arrival Last Used Substance Other:: [facility] PRESCRIBED Substance Use Type Other:: Smokes Marijuanna Preferred Language: Swedish Communication Ability: Effective Visual Impairment: No Limitations Hearing Ability: Normal Rn Transitional Required: No Beliefs That Will Affect Care: None marital status: Single Current Living Situation: Parent Current Living Situation Comment: lives at home with mom current occupational status: employed How many Children do You have: 0 Feels Safe at Home: Yes Childhood Exposure to Second-Hand Smoke: No Diet: regular Diet Comment: regular Dental Care, Regularly: Yes Physical Activity Frequency: Does not Exercise Seatbelt Use: always Sunscreen Use: Yes Do you think of yourself as: straight/heterosexual Assistive Devices: None Review of Systems Review of Systems: All systems reviewed & are unremarkable except as noted in HPI & below Physical Exam Physical Exam: General: A&Ox3. NAD. Cooperative. HEENT: Atraumatic, normocephalic. Pulm: CTAB A&P. -wheezes, -rales, -rhonchi. Symmetrical chest rise. No increased work of breathing. No respiratory distress. Cardiac: regular, tachycardic, -mrg. Radial pulses intact and symmetrical. Abdominal: +epigastric and LUQ TTP. No lower TTP. No rebound/guarding. BS present. Ext: Moves all extremities equally. Soft touch intact in hands and feet Results & Data Results & Data Vital Signs (Past 12 Hours) Vital Signs Temp Pulse Pulse Resp BP BP Pulse Ox 02/17/23 11:27 109 H 18 122/94 96 02/17/23 11:00 97 H 18 145/97 H 95 02/17/23 09:46 120 H 02/17/23 10:02 113 H 18 132/101 H 95 02/17/23 09:37 122 H 18 145/103 H 96 02/17/23 09:18 36.5 C 129 H 20 141/92 H 99 O2 Del Method 02/17/23 11:27 Room Air 02/17/23 11:00 Room Air 02/17/23 09:46 02/17/23 10:02 Room Air 02/17/23 09:37 Room Air 02/17/23 09:18 Room Air PG Care Time/CCT Total # of Minutes Spent Total Time Spent with Patient: Total time spent is greater than 50% in coordination of care (as documented) at patient's floor/unit and/or counseling patient: Coding Level of Care Code 56656 INT INP/OBS CARE 2/55MIN Diagnoses Acute on chronic pancreatitis K85.90; K86.1 GERD (gastroesophageal reflux disease) K21.9 Generalized anxiety disorder with panic attacks F41.1; F41.0 PTSD (post-traumatic stress disorder) F43.10 Smoker F17.200
[2023-02-17] MEDS ORDERED: Heparin IV Adult Wt-Based Standard *NO* Bolus Protocol IV SCH (13:52)
[2023-02-17] MEDS ORDERED: HEPARIN 25000 UNIT/500 ML D5W IV ONE (13:58)
[2023-02-17] MEDS: HEPARIN SODIUM/DEXTROSE 25,000 UNITS/500 ML BAG IV SCH (14:12)
--- NOTE | 2023-02-17 14:43 | Electrocardiogram Report ---
Test Reason : Blood Pressure : / mmHG Vent. Rate : 098 BPM Atrial Rate : 098 BPM P-R Int : 130 ms QRS Dur : 082 ms QT Int : 340 ms P-R-T Axes : 065 037 037 degrees QTc Int : 434 ms Normal sinus rhythm Normal ECG When compared with ECG of 23-APR-2022 08:26, Criteria for Inferior infarct are no longer Present T wave inversion no longer evident in Inferior leads Nonspecific T wave abnormality no longer evident in Anterior leads Confirmed by Damon Menendez ([id number]) on 02/17/2023 2:43:09 PM Referred By: REFERRED SELF Confirmed By:Damon Menendez
[2023-02-17 15:00] LABS: Partial Thromboplastin Time 29.2 Seconds (21.0-31.0); Prothrombin Time 10.9 Seconds (9.0-12.0)
[2023-02-17] MEDS ORDERED: LACTATED RINGER'S 500 ML IV ONE ×2 (15:39→20:08)
[2023-02-17] MEDS ORDERED: HYDROmorphone INJ 0.5 MG/0.5 ML SYR IV PRN (15:39)
[2023-02-17] MEDS: AMPICILLIN/SULBACTAM SOD 3,000 MG in 0.9 % SODIUM CHLORIDE 100 ML IV SCH ×2 (16:31→23:48)
[2023-02-17] MEDS: LORazepam 2 MG/1 ML VIAL IV PRN (17:33)
[2023-02-17] MEDS: LACTATED RINGER'S 1,000 ML IV SCH (17:34)
[2023-02-17] MEDS: HYDROmorphone INJ 1 MG/ML SYRINGE IV PRN ×2 (18:31→21:54)
[2023-02-17 20:53] LABS: Partial Thromboplastin Time 55.2 Seconds (21.0-31.0)
--- NOTE | 2023-02-17 20:59 | XRay Report ---
XR chest 2V PA/lateral HISTORY: ?aspiration COMPARISON: Abdomen and pelvis CT 02/17/2023. Chest x-ray 11/12/2022. FINDINGS: No pneumothorax. No pleural effusions. There is mild elevation left hemidiaphragm, unchange d. The heart is normal in size. Left basilar linear densities persist and favor scarring or subsegmen raoul atelectasis. There are hazy patchy airspace opacities within the right mid to lower lung zone. Th is is similar to the prior abdomen and pelvis CT and likely represents a pneumonia. IMPRESSION: Redemonstration of the hazy airspace opacities within the right mid to lower lung zone. This likely r epresents a pneumonia. ACT 112: Negative or not required by law. Electronically signed by: Bunny Doherty M.D. 02/17/2023 8:58 PM
[2023-02-17] MEDS: ONDANSETRON INJ 2 MG/ML 2 ML VIAL IV PRN (21:54)
[2023-02-17] MEDS: PANTOprazole 40 MG in SYRINGE 0 ML IV SCH (21:55)
[2023-02-18] MEDS ORDERED: HYDROmorphone INJ 0.5 MG/0.5 ML SYR IV STA (00:14)
[2023-02-18] MEDS: LACTATED RINGER'S 1,000 ML IV SCH ×5 (00:37→21:26)
[2023-02-18] MEDS: LORazepam 2 MG/1 ML VIAL IV PRN ×2 (00:51→18:30)
[2023-02-18] MEDS: HYDROmorphone INJ 1 MG/ML SYRINGE IV PRN ×5 (02:57→20:42)
[2023-02-18] MEDS: AMPICILLIN/SULBACTAM SOD 3,000 MG in 0.9 % SODIUM CHLORIDE 100 ML IV SCH ×2 (03:50→08:55)
[2023-02-18] MEDS: ONDANSETRON INJ 2 MG/ML 2 ML VIAL IV PRN ×3 (03:54→17:15)
[2023-02-18 07:19] LABS: Basophils # (auto) 0.03 K/uL (0-0.2); Basophils % (auto) 0.3 %; Eosinophils # (auto) 0.11 K/uL (0-0.50); Eosinophils % (auto) 1.2 %; Hematocrit (blood only) 35.9 % (37.0-47.0); Hemoglobin 11.7 g/dl (12.0-16.0); Immature Granulocytes # (auto) 0.05 K/uL (0.01-0.20); Immature Granulocytes % (auto) 0.5 %; Lymphocytes # (auto) 2.16 K/uL (1.2-3.4); Lymphocytes % (auto) 23.4 %; Mean Corpuscular Hemoglobin 30.5 pg (25.0-34.0); Mean Corpuscular Hgb Conc 32.6 g/dL (32.0-36.0); Mean Corpuscular Volume 93.5 fL (80.0-100.0); Mean Platelet Volume 10.3 fL (9.4-12.4); Monocytes % (auto) 4.3 %; Neutrophils # (auto) 6.49 K/uL (1.40-6.50); Neutrophils % (auto) 70.3 %; Platelet Count 218 K/uL (130-400); RDW Coefficient of Variation 17.7 % (11.5-14.5); RDW Standard Deviation 60.5 fL (36.4-46.3); Red Blood Count 3.84 M/uL (4.20-5.40); White Blood Count 9.24 K/ul (4.8-10.8)
[2023-02-18 07:26] LABS: Albumin Globulin Ratio 1.6 (0.9-2); Albumin Level 3.3 gm/dl (3.4-5.0); Bilirubin,Total 0.6 mg/dl (0.2-1.0); Calcium 8.6 mg/dl (8.6-10.3); Creatinine Clr Calc Pharmacy 105.3 ml/min; Est GFR (African American) 131.6 ml/min; Est GFR (Non-African American) 113.5 ml/min; Globulin 2.1 gm/dl (2.5-4.0); Magnesium 1.6 mg/dl (1.7-2.4); Potassium 3.3 mmol/L (3.5-5.1); Total Protein 5.4 gm/dl (6.0-8.3)
[2023-02-18 07:53] LABS: Partial Thromboplastin Ratio 2.3; Prothrombin Time 11.2 Seconds (9.0-12.0)
[2023-02-18 07:55] LABS: Partial Thromboplastin Time 65.4 Seconds (21.0-31.0)
[2023-02-18] MEDS: MAGNESIUM SULFATE / D5W 1 GM/100 ML BAG IV SCH ×2 (08:54→10:53)
[2023-02-18] MEDS: PANTOprazole 40 MG in SYRINGE 0 ML IV SCH ×2 (08:55→20:04)
[2023-02-18] MEDS: POTASSIUM CHLORIDE / WTR 10 MEQ/100 ML PLCT IV SCH ×2 (09:53→11:18)
--- NOTE | 2023-02-18 12:31 | Hospitalist Progress Note ---
Date of Service February 18, 2023 Assessment & Plan (1) Acute on chronic pancreatitis: Plan: Acute on Chronic pancreatitis With relapse of alcohol use approximately 1 week ago for several days, gradual progression of pain similar to prior pancreatitis pain since drinking alcohol; Alcohol on admission negative MRI with and without contrast 06/2022 showed chronic pancreatitis, is on surveillance monitoring On admission leukocytosis new of 17.19, lipase is not elevated at 71. ALT is normal, trace AST elevation of 59 alk phos 321 and bilirubin is normal at 0.8. Patient does appear hemoconcentrated with elevated Hgb as well CT-A/P: 1. Pancreatitis without evidence of pancreatic necrosis or peripancreatic fluid collections. 2. Groundglass opacities in the right lower lung are somewhat more prominent than in the prior exam compatible with pneumonia. 3. Hepatic steatosis.4. Status post cholecystectomy.5. Normal appendix.6. Additional findings as above. Acute pain control Dilaudid 0.25-0.5 mg every 4 hours scaled analgesia Zofran as needed Protonix IV twice daily due to concurrent GERD symptoms and anticoagulation history Patient received initiated fluids resuscitation of 1 L NSS, appears slightly dry and mildly tachycardic, 500 cc additional bolus and then maintenance. Cont. LR 200 cc/h. - started clear liquid diet, advance as tolerated. GERD With? Exacerbation from alcohol No melena, no bright red blood per rectum, no bloody emesis Trend H&H, follow clinically for signs of melena/bleeding, continue PPI IV twice daily Patient is pending a EGD and gastric emptying study as outpatient in the next 2 weeks. No signs of acute bleeding on admission, suspect current symptoms are due to acute on chronic pancreatitis vs gastroparesis. Bibasilar ground glass opacities, Cough acute on chronic cough present for about 1 week, mild without sputum production Given GGO's above and possibility for aspiration in the setting of alcohol use/vomiting - procal neg - given 1 dose unasyn on admission. Discontinued abx at this time due to low suspicion for bacterial pneumonia. - may need outpatient evaluation for chronic lung abnormalities including chest CT and PFTs. Hepatic steatosis Negative AFP and fibrosis testing 06/2022 In the setting of alcohol use Transaminitis is improved compared to prior Trend CMP, if stable can start dose reduced Tylenol 2 g daily max Portal vein thrombosis, chronic Eliquis 5 mg twice daily held, patient is not able to keep pills down. Switched to heparin gtt. until tolerating p.o. DVT prophylaxis: Switched from DOAC to heparin, cont. CODE STATUS: Full code Disposition: Med tele Diet: Clears (2) GERD (gastroesophageal reflux disease): (3) Generalized anxiety disorder with panic attacks: (4) PTSD (post-traumatic stress disorder): (5) Smoker: Admission and Anticipated Discharge Date Admission Date: February 17, 2023 Supervising Physician Co-Signing Physician Notes I personally examined the patient and verified all hammonds points of history and exam, discussed case, and agree with decision making with Dr Jimenez Feeling a bit better already. Pain improving. Upset with herself about her relapse. Vitals noted, in general she is awake and alert pleasant no distress. HEENT normocephalic atraumatic mucous membranes moist. Breathing unlabored no accessory muscle use good effort. Skin shows no rashes no pallor or icterus. Recurrent pancreatitisdue to alcohol. Offered empathy and supportshe is going to quit drinking again, and only suffered a small relapse due to high life stressors. IV fluids, supportive care, pain control, advance diet. Hopefully home soon. Otherwise as above. Subjective Patient seen at bedside this morning. Still a little nauseas but abd pain doing better. Would like to intake fluids orally and try to advance diet. No longer s ob. Denies chest pain, headache, vomiting, constipation, diarrhea, congestion. Review of Systems Review of Systems: All systems reviewed & are unremarkable except as noted in HPI & below Physical Exam Physical Exam: General: A&Ox3. NAD. Cooperative. HEENT: Atraumatic, normocephalic. Pulm: CTAB. -wheezes, -rales, -rhonchi. Symmetrical chest rise. No increased work of breathing. No respiratory distress. Cardiac: RRR, -mrg. Radial pulses intact and symmetrical. Abdominal: mild diffuse abd tenderness. No guarding. BS present. Results & Data Results & Data Vital Signs (Past 12 Hours) Vital Signs Temp Pulse Resp BP Pulse Ox O2 Del Method 02/18/23 07:40 36.7 C 99 H 18 120/84 93 Room Air Laboratory Results 02/18/23 02/18/23 02/18/23 Range/Units 06:45 06:45 06:45 WBC 9.24 (4.8-10.8) K/ul RBC 3.84 L (4.20-5.40) M/uL Hgb 11.7 L D (12.0-16.0) g/dl Hct 35.9 L (37.0-47.0) % MCV 93.5 (80.0-100.0) fL MCH 30.5 (25.0-34.0) pg MCHC 32.6 (32.0-36.0) g/dL RDW Std Deviation 60.5 H (36.4-46.3) fL RDW Coeff of Jessica 17.7 H (11.5-14.5) % Plt Count 218 (130-400) K/uL MPV 10.3 (9.4-12.4) fL Immature Gran % (Auto) 0.5 % Neut % (Auto) 70.3 % Lymph % (Auto) 23.4 % Garvin % (Auto) 4.3 % Eos % (Auto) 1.2 % Baso % (Auto) 0.3 % Neut # (Auto) 6.49 (1.40-6.50) K/uL Lymph # (Auto) 2.16 (1.2-3.4) K/uL Garvin # (Auto) 0.40 (0.11-0.59) K/uL Eos # (Auto) 0.11 (0-0.50) K/uL Baso # (Auto) 0.03 (0-0.2) K/uL Immature Gran # (Auto) 0.05 (0.01-0.20) K/uL PT 11.2 (9.0-12.0) Seconds INR 1.0 (0.9-1.1) APTT 65.4 H* (21.0-31.0) Seconds PTT Ratio 2.3 Sodium 139 (136-145) mmol/L Potassium 3.3 L (3.5-5.1) mmol/L Chloride 101 (98-107) mmol/L Carbon Dioxide 33 H (21-32) mmol/L Anion Gap 5 (3-11) BUN 4 L (6-23) mg/dl Creatinine 0.57 L (0.6-1.2) mg/dl Est Cr Clr Drug Dosing 105.3 ml/min Est GFR ( Amer) 131.6 ml/min Est GFR (Non-Af Amer) 113.5 ml/min BUN/Creatinine Ratio 7.0 L (10-20) Glucose 87 (70-99(Fasting)) mg/dl Calcium 8.6 (8.6-10.3) mg/dl Magnesium 1.6 L (1.7-2.4) mg/dl Total Bilirubin 0.6 (0.2-1.0) mg/dl AST 30 (13-39) U/L ALT 25 (7-52) U/L Alkaline Phosphatase 208 H (34-104) U/L Total Protein 5.4 L D (6.0-8.3) gm/dl Albumin 3.3 L (3.4-5.0) gm/dl Globulin 2.1 L (2.5-4.0) gm/dl Albumin/Globulin Ratio 1.6 (0.9-2) Procalcitonin (0-0.5) ng/ml 02/17/23 02/17/23 02/17/23 Range/Units 20:00 09:35 09:35 WBC (4.8-10.8) K/ul RBC (4.20-5.40) M/uL Hgb (12.0-16.0) g/dl Hct (37.0-47.0) % MCV (80.0-100.0) fL MCH (25.0-34.0) pg MCHC (32.0-36.0) g/dL RDW Std Deviation (36.4-46.3) fL RDW Coeff of Jessica (11.5-14.5) % Plt Count (130-400) K/uL MPV (9.4-12.4) fL Immature Gran % (Auto) % Neut % (Auto) % Lymph % (Auto) % Garvin % (Auto) % Eos % (Auto) % Baso % (Auto) % Neut # (Auto) (1.40-6.50) K/uL Lymph # (Auto) (1.2-3.4) K/uL Garvin # (Auto) (0.11-0.59) K/uL Eos # (Auto) (0-0.50) K/uL Baso # (Auto) (0-0.2) K/uL Immature Gran # (Auto) (0.01-0.20) K/uL PT 10.9 (9.0-12.0) Seconds INR 1.0 (0.9-1.1) APTT 55.2 H* 29.2 (21.0-31.0) Seconds PTT Ratio 2.0 1.0 Sodium (136-145) mmol/L Potassium (3.5-5.1) mmol/L Chloride (98-107) mmol/L Carbon Dioxide (21-32) mmol/L Anion Gap (3-11) BUN (6-23) mg/dl Creatinine (0.6-1.2) mg/dl Est Cr Clr Drug Dosing ml/min Est GFR ( Amer) ml/min Est GFR (Non-Af Amer) ml/min BUN/Creatinine Ratio (10-20) Glucose (70-99(Fasting)) mg/dl Calcium (8.6-10.3) mg/dl Magnesium (1.7-2.4) mg/dl Total Bilirubin (0.2-1.0) mg/dl AST (13-39) U/L ALT (7-52) U/L Alkaline Phosphatase (34-104) U/L Total Protein (6.0-8.3) gm/dl Albumin (3.4-5.0) gm/dl Globulin (2.5-4.0) gm/dl Albumin/Globulin Ratio (0.9-2) Procalcitonin < 0.05 (0-0.5) ng/ml Resident Activity Tracking Resident Involvement: Resident Care Provided Care Provided: Adult Hospital Medicine
[2023-02-18] MEDS: PROMETHAZINE HCL 25 MG TAB PO PRN (13:48)
[2023-02-18] MEDS: HEPARIN SODIUM/DEXTROSE 25,000 UNITS/500 ML BAG IV SCH (17:55)
--- NOTE | 2023-02-18 18:13 | Billing Data ---
Date of Service February 18, 2023 Coding Level of Care Code 31720 SUB INP/OBS CARE
[2023-02-18] MEDS: PANCREAZE (LIPASE 10,500U) CAP PO SCH (19:10)
[2023-02-18] MEDS: MELATONIN 3 MG TAB PO PRN (21:59)
[2023-02-19] MEDS: ONDANSETRON INJ 2 MG/ML 2 ML VIAL IV PRN (01:21)
[2023-02-19] MEDS: HYDROmorphone INJ 1 MG/ML SYRINGE IV PRN ×4 (01:21→17:51)
[2023-02-19] MEDS: LACTATED RINGER'S 1,000 ML IV SCH ×2 (02:48→07:43)
[2023-02-19] MEDS: LORazepam 2 MG/1 ML VIAL IV PRN (02:49)
[2023-02-19] MEDS: PROMETHAZINE HCL 25 MG TAB PO PRN (05:51)
[2023-02-19] MEDS: PANTOprazole 40 MG in SYRINGE 0 ML IV SCH (07:44)
[2023-02-19] MEDS: PANCREAZE (LIPASE 10,500U) CAP PO SCH ×3 (07:44→16:24)
[2023-02-19 08:23] LABS: Basophils # (auto) 0.03 K/uL (0-0.2); Basophils % (auto) 0.4 %; Eosinophils # (auto) 0.13 K/uL (0-0.50); Eosinophils % (auto) 1.6 %; Hematocrit (blood only) 35.7 % (37.0-47.0); Hemoglobin 11.4 g/dl (12.0-16.0); Immature Granulocytes # (auto) 0.04 K/uL (0.01-0.20); Immature Granulocytes % (auto) 0.5 %; Lymphocytes # (auto) 1.89 K/uL (1.2-3.4); Lymphocytes % (auto) 23.4 %; Mean Corpuscular Hemoglobin 29.7 pg (25.0-34.0); Mean Corpuscular Hgb Conc 31.9 g/dL (32.0-36.0); Mean Platelet Volume 10.3 fL (9.4-12.4); Monocytes # (auto) 0.46 K/uL (0.11-0.59); Monocytes % (auto) 5.7 %; Neutrophils # (auto) 5.54 K/uL (1.40-6.50); Neutrophils % (auto) 68.4 %; Platelet Count 208 K/uL (130-400); RDW Coefficient of Variation 17.7 % (11.5-14.5); RDW Standard Deviation 60.8 fL (36.4-46.3); Red Blood Count 3.84 M/uL (4.20-5.40); White Blood Count 8.09 K/ul (4.8-10.8)
[2023-02-19 08:44] LABS: Alanine Aminotransferase 26 U/L (7-52); Albumin Globulin Ratio 1.4 (0.9-2); Albumin Level 3.1 gm/dl (3.4-5.0); Alkaline Phosphatase 185 U/L (34-104); Anion Gap 6 (3-11); Aspartate Aminotransferase 34 U/L (13-39); Bilirubin,Total 0.4 mg/dl (0.2-1.0); Blood Urea Nitrogen < 2 mg/dl (6-23); Calcium 8.6 mg/dl (8.6-10.3); Carbon Dioxide 35 mmol/L (21-32); Chloride 99 mmol/L (98-107); Creatinine Clr Calc Pharmacy 113.2 ml/min; Est GFR (African American) 134.8 ml/min; Est GFR (Non-African American) 116.3 ml/min; Globulin 2.2 gm/dl (2.5-4.0); Glucose 97 mg/dl (70-99(Fasting)); Magnesium 1.7 mg/dl (1.7-2.4); Potassium 3.2 mmol/L (3.5-5.1); Sodium 140 mmol/L (136-145); Total Protein 5.3 gm/dl (6.0-8.3)
[2023-02-19] MEDS ORDERED: POTASSIUM CHLORIDE 20 MEQ/15 ML UDC PO STA (08:45)
[2023-02-19 09:12] LABS: Partial Thromboplastin Time 55.4 Seconds (21.0-31.0)
[2023-02-19] MEDS ORDERED: HYDROmorphone INJ 0.5 MG/0.5 ML SYR IV PRN (10:12)
[2023-02-19] MEDS ORDERED: ACETAMINOPHEN 325 MG TAB PO PRN (10:12)
--- NOTE | 2023-02-19 10:13 | Hospitalist Progress Note ---
Date of Service February 19, 2023 Assessment & Plan (1) Acute on chronic pancreatitis: Plan: #Acute on Chronic pancreatitis With relapse of alcohol use approximately 1 week ago for several days, gradual progression of pain similar to prior pancreatitis pain since drinking alcohol; Alcohol on admission negative MRI with and without contrast 06/2022 showed chronic pancreatitis, is on surveillance monitoring On admission leukocytosis new of 17.19, lipase is not elevated at 71. ALT is normal, trace AST elevation of 59 alk phos 321 and bilirubin is normal at 0.8. Patient did appear hemoconcentrated with elevated Hgb as well which has improved with fluids. CT-A/P: Pancreatitis without evidence of pancreatic necrosis or peripancreatic fluid collections. Acute pain control Dilaudid 0.5-1 mg every 6 hours scaled analgesia Zofran as needed Initially received fluids resuscitation of 1.5 L NSS and then maintenance. Fluids d/c'd, now tolerating some po intake. - advancing diet as tolerated. #GERD With? Exacerbation from alcohol No melena, no bright red blood per rectum, no bloody emesis Trend H&H, follow clinically for signs of melena/bleeding, continue PPI bid daily. Added pepcid and carafate. Patient is pending a EGD and gastric emptying study as outpatient in the next 2 weeks. No signs of acute bleeding on admission, suspect current symptoms are due to acute on chronic pancreatitis vs gastroparesis. #Bibasilar ground glass opacities #Atelectasis #Cough acute on chronic cough present for about 1 week, mild without sputum production - CT A/P: Groundglass opacities in the right lower lung are somewhat more prominent than in the prior exam compatible with pneumonia - CXR: atelectasis left lower lobe - procal neg - given 1 dose unasyn on admission. Discontinued abx at this time due to low suspicion for bacterial pneumonia. - may need outpatient evaluation for chronic lung abnormalities including chest CT and PFTs. Hepatic steatosis, chronic Negative AFP and fibrosis testing 06/2022 In the setting of alcohol use Transaminitis is improved compared to prior Trend CMP Portal vein thrombosis, chronic - heparin d/c'd - restarted home eliquis DVT prophylaxis: Eliquis CODE STATUS: full code Disposition: med tele Diet: low fat (2) GERD (gastroesophageal reflux disease): (3) Generalized anxiety disorder with panic attacks: (4) PTSD (post-traumatic stress disorder): (5) Smoker: Admission and Anticipated Discharge Date Admission Date: February 17, 2023 Supervising Physician Co-Signing Physician Notes I personally examined the patient and verified all hammonds points of history and exam, discussed case, and agree with decision making with Dr Jimenez Not tolerating p.o. intake well. Ate and then had nausea and abdominal pain afteralmost immediately. Vitals noted, in general she is awake and alert pleasant no distress. HEENT normocephalic atraumatic mucous membranes moist. Epigastric and left upper quadrant tenderness greater than elsewhere, no guarding rebound or rigidity no lower abdominal tenderness. Recurrent pancreatitisdue to alcohol. I suspect she also has some alcohol related gastritis given her immediate postprandial pain, overall mild appearance of pancreatitis, and epigastric tendernessProtonix twice daily, Pepcid twice daily, Carafate 4 times daily. Hopefully home soon. Subjective Patient seen at bedside this morning. Still a little nauseas but abd pain doing better. Able to keep down broth and some oral meds yesterday. Denies chest pain, sob, headache, vomiting, constipation, diarrhea. Review of Systems Review of Systems: All systems reviewed & are unremarkable except as noted in HPI & below Physical Exam Physical Exam: General: A&Ox3. NAD. Cooperative. HEENT: Atraumatic, normocephalic. Pulm: CTAB. Mildly diminished breath sounds left lower lobe. -wheezes, -rales, - rhonchi. Symmetrical chest rise. No increased work of breathing. No respiratory distress. Cardiac: RRR, -mrg. Radial pulses intact and symmetrical. Abdominal: Mild epigastric tenderness with deep palpation, soft, nondistended. No guarding. BS present. Results & Data Results & Data Vital Signs (Past 12 Hours) Vital Signs Temp Pulse Resp BP 02/19/23 07:54 36.5 C 98 H 18 120/83 Laboratory Results 02/19/23 02/19/23 02/19/23 Range/Units 08:00 08:00 08:00 WBC 8.09 (4.8-10.8) K/ul RBC 3.84 L (4.20-5.40) M/uL Hgb 11.4 L (12.0-16.0) g/dl Hct 35.7 L (37.0-47.0) % MCV 93.0 (80.0-100.0) fL MCH 29.7 (25.0-34.0) pg MCHC 31.9 L (32.0-36.0) g/dL RDW Std Deviation 60.8 H (36.4-46.3) fL RDW Coeff of Jessica 17.7 H (11.5-14.5) % Plt Count 208 (130-400) K/uL MPV 10.3 (9.4-12.4) fL Immature Gran % (Auto) 0.5 % Neut % (Auto) 68.4 % Lymph % (Auto) 23.4 % Garvin % (Auto) 5.7 % Eos % (Auto) 1.6 % Baso % (Auto) 0.4 % Neut # (Auto) 5.54 (1.40-6.50) K/uL Lymph # (Auto) 1.89 (1.2-3.4) K/uL Garvin # (Auto) 0.46 (0.11-0.59) K/uL Eos # (Auto) 0.13 (0-0.50) K/uL Baso # (Auto) 0.03 (0-0.2) K/uL Immature Gran # (Auto) 0.04 (0.01-0.20) K/uL APTT 55.4 H* (21.0-31.0) Seconds PTT Ratio 2.0 Sodium 140 (136-145) mmol/L Potassium 3.2 L (3.5-5.1) mmol/L Chloride 99 (98-107) mmol/L Carbon Dioxide 35 H (21-32) mmol/L Anion Gap 6 (3-11) BUN < 2 L (6-23) mg/dl Creatinine 0.53 L (0.6-1.2) mg/dl Est Cr Clr Drug Dosing 113.2 ml/min Est GFR ( Amer) 134.8 ml/min Est GFR (Non-Af Amer) 116.3 ml/min BUN/Creatinine Ratio TNP Glucose 97 (70-99(Fasting)) mg/dl Calcium 8.6 (8.6-10.3) mg/dl Magnesium 1.7 (1.7-2.4) mg/dl Total Bilirubin 0.4 (0.2-1.0) mg/dl AST 34 (13-39) U/L ALT 26 (7-52) U/L Alkaline Phosphatase 185 H (34-104) U/L Total Protein 5.3 L (6.0-8.3) gm/dl Albumin 3.1 L (3.4-5.0) gm/dl Globulin 2.2 L (2.5-4.0) gm/dl Albumin/Globulin Ratio 1.4 (0.9-2) Resident Activity Tracking Resident Involvement: Resident Care Provided Care Provided: [facility]
[2023-02-19] MEDS: APIXABAN 5 MG TABLET PO SCH ×2 (11:01→19:44)
[2023-02-19] MEDS: ONDANSETRON 4 MG OD TAB PO PRN ×3 (11:05→21:28)
[2023-02-19] MEDS: clonazePAM 1 MG TAB PO PRN ×2 (11:53→21:32)
[2023-02-19] MEDS ORDERED: ACETAMINOPHEN 500 MG TAB PO PRN (15:56)
[2023-02-19] MEDS ORDERED: FAMOTIDINE 40 MG TABLET PO SCH (16:00)
[2023-02-19] MEDS: SUCRALFATE 1 GM/10 ML UDC PO SCH ×2 (16:23→19:45)
[2023-02-19] MEDS ORDERED: FAMOTIDINE 20 MG in SYRINGE 3 ML IV ONE (19:19)
--- NOTE | 2023-02-19 19:20 | Billing Data ---
Date of Service February 19, 2023 Coding Level of Care Code 29892 SUB INP/OBS CARE
[2023-02-19] MEDS: PANTOprazole 40 MG TAB PO SCH (19:44)
[2023-02-19] MEDS: FAMOTIDINE 20 MG in SYRINGE 3 ML IV SCH (21:28)
[2023-02-19] MEDS: MELATONIN 3 MG TAB PO PRN (21:28)
[2023-02-20] MEDS: HYDROmorphone INJ 1 MG/ML SYRINGE IV PRN ×3 (00:27→13:16)
[2023-02-20] MEDS: ONDANSETRON 4 MG OD TAB PO PRN ×2 (05:26→10:14)
[2023-02-20] MEDS: PROMETHAZINE HCL 25 MG TAB PO PRN ×2 (07:26→13:19)
[2023-02-20] MEDS: PANCREAZE (LIPASE 10,500U) CAP PO SCH ×2 (08:16→11:54)
[2023-02-20] MEDS: PANTOprazole 40 MG TAB PO SCH (08:16)
[2023-02-20] MEDS: APIXABAN 5 MG TABLET PO SCH (08:16)
[2023-02-20] MEDS: SUCRALFATE 1 GM/10 ML UDC PO SCH ×2 (08:16→11:54)
[2023-02-20] MEDS: FAMOTIDINE 20 MG in SYRINGE 3 ML IV SCH (08:19)
[2023-02-20 09:15] LABS: Alanine Aminotransferase 27 U/L (7-52); Albumin Globulin Ratio 1.5 (0.9-2); Albumin Level 3.5 gm/dl (3.4-5.0); Alkaline Phosphatase 192 U/L (34-104); Anion Gap 6 (3-11); Aspartate Aminotransferase 27 U/L (13-39); Bilirubin,Total 0.4 mg/dl (0.2-1.0); Blood Urea Nitrogen < 2 mg/dl (6-23); Calcium 9.1 mg/dl (8.6-10.3); Carbon Dioxide 33 mmol/L (21-32); Chloride 98 mmol/L (98-107); Creatinine Clr Calc Pharmacy 115.4 ml/min; Est GFR (African American) 135.6 ml/min; Globulin 2.4 gm/dl (2.5-4.0); Glucose 88 mg/dl (70-99(Fasting)); Magnesium 1.8 mg/dl (1.7-2.4); Potassium 3.4 mmol/L (3.5-5.1); Sodium 137 mmol/L (136-145); Total Protein 5.9 gm/dl (6.0-8.3)
[2023-02-20] MEDS ORDERED: POTASSIUM CHLORIDE CRTAB 20 MEQ TABCR PO STA (09:20)
[2023-02-20 09:30] LABS: Basophils # (auto) 0.03 K/uL (0-0.2); Basophils % (auto) 0.4 %; Eosinophils # (auto) 0.12 K/uL (0-0.50); Eosinophils % (auto) 1.6 %; Hematocrit (blood only) 40.6 % (37.0-47.0); Hemoglobin 13.3 g/dl (12.0-16.0); Immature Granulocytes # (auto) 0.03 K/uL (0.01-0.20); Immature Granulocytes % (auto) 0.4 %; Lymphocytes # (auto) 2.12 K/uL (1.2-3.4); Lymphocytes % (auto) 27.4 %; Mean Corpuscular Hemoglobin 30.3 pg (25.0-34.0); Mean Corpuscular Hgb Conc 32.8 g/dL (32.0-36.0); Mean Corpuscular Volume 92.5 fL (80.0-100.0); Mean Platelet Volume 10.7 fL (9.4-12.4); Monocytes # (auto) 0.83 K/uL (0.11-0.59); Monocytes % (auto) 10.7 %; Neutrophils # (auto) 4.61 K/uL (1.40-6.50); Neutrophils % (auto) 59.5 %; Platelet Count 219 K/uL (130-400); RDW Coefficient of Variation 17.5 % (11.5-14.5); RDW Standard Deviation 59.7 fL (36.4-46.3); Red Blood Count 4.39 M/uL (4.20-5.40); White Blood Count 7.74 K/ul (4.8-10.8)
[2023-02-20] MEDS: clonazePAM 1 MG TAB PO PRN (10:14)
--- NOTE | 2023-02-20 13:01 | Discharge Summary ---
Date of Service February 20, 2023 Admission HPI Per Admitting Provider Nadja is a 42-year-old female with past medical history of chronic pancreatitis, gastritis, generalized anxiety disorder with panic on fluoxetine/clonazepam with recently discontinued mirtazapine 1 month ago, alcohol abuse, tobacco use, portal venous thrombosis on long-term anticoagulation with peptic ulcer disease and GERD last seen by GI on 11/18/2022 who noted she had slipped with regard to alcohol cessation and having 3 to 4 glasses of wine per day due to recent diagnosis of Parkinson's in her father. She not had melena/hematochezia at that time. Nadja reprots she has had a few days of abdominal pain similar to prior episodes of pancreatitis Reports she does not drink anymore but had a few mishap a few days ago with recurrence of pain then no ETOH for a while but then last week had some alcohol and started to get pain again. Notes that apast stalker popped back up in her life which caused her stress last week and started drinking again 4-5 days ago. Since then was drinking everyday wine ~3-4 glasses per day. Has chronic pancreatitis and notes does not take much to cause severe irritation of pain. Last drink yesterday 5pm. No hx of withdrawal. Prior to last week has had acid reflux with meals for which she sees GI as outpatient. Was pending an EGD this week as outpatient and nuclear gastric emptying study next week. She does not remember what day, does not have her mechanical planner with her. Was supposed to go to PT today for R repeat wrist fracture. no bloody or black bowel movements. No chest pain or chest pressure +severe abdominal pain in LUQ and epigastrum which is worsened with deep b reathing Still taking eliquis. Missed her morning dose day and took only once yesterday b/c she was nauseus and vomiting. +mild cough x7 days 'didn't really notice much.' No sputum production Intermittent warmth/flushing and maybe feverish with lip peeling earlier in the week, no chills/night sweats "I don't need alcohol conversion. I made a mistake but now I'm in a lot of pain." Dilaudid helped in the past No dysuria Medical History: Reviewed Medications: Reviewed Surgical History: Reviewed Family history: Reviewed Allergies: Reviewed. Morphing makes nauseus/vomit. Social History: ETOH as noted. Cigarettes0.5ppd. Code Status: Full Code Principal Diagnosis Alcohol induced pancreatitis and gastritis Discharge Exam General: A&Ox3. NAD. Cooperative. HEENT: Atraumatic, normocephalic. Pulm: CTAB. Mildly diminished breath sounds left lower lobe. -wheezes, -rales, - rhonchi. Symmetrical chest rise. No increased work of breathing. No respiratory distress. Cardiac: RRR, -mrg. Radial pulses intact and symmetrical. Abdominal: Mild epigastric tenderness with deep palpation, soft, nondistended. No guarding. BS present. Discharge Data Allergies Allergy/AdvReac Type Severity Reaction Status Date / Time buspirone [From BuSpar] Allergy Severe Unconscious, Verified 02/17/23 12:57 seizures quetiapine [From Seroquel] Allergy Severe Unconscious, Verified 02/17/23 12:57 seizures citalopram [From Celexa] AdvReac Intermediate Vomiting Verified 02/17/23 12:57 morphine AdvReac Intermediate "MAKES ME Verified 02/17/23 12:57 SICK(VOMITING)" vilazodone [From Viibryd] AdvReac Vomiting Verified 02/17/23 12:57 Consultations 02/17/23 12:42 ED Decision to Admit Stat Ordered Studies Laboratory Results WBC 7.74 K/ul (4.8-10.8) 02/20/23 07: RBC 4.39 M/uL (4.20-5.40) 02/20/23 07:28 Hgb 13.3 g/dl (12.0-16.0) 02/20/23 07:28 Hct 40.6 % (37.0-47.0) 02/20/23 07:28 MCV 92.5 fL (80.0-100.0) 02/20/23 07:28 MCH 30.3 pg (25.0-34.0) 02/20/23 07:28 MCHC 32.8 g/dL (32.0-36.0) 02/20/23 07:28 RDW Std Deviation 59.7 fL (36.4-46.3) H 02/20/23 07:28 RDW Coeff of Jessica 17.5 % (11.5-14.5) H 02/20/23 07:28 Plt Count 219 K/uL (130-400) 02/20/23 07:28 MPV 10.7 fL (9.4-12.4) 02/20/23 07:28 Immature Gran % (Auto) 0.4 % 02/20/23 07:28 Neut % (Auto) 59.5 % 02/20/23 07: Lymph % (Auto) 27.4 % 02/20/23 07:28 Sargent % (Auto) 10.7 % 02/20/23 07: Eos % (Auto) 1.6 % 02/20/23 07:28 Baso % (Auto) 0.4 % 02/20/23 07:28 Neut # (Auto) 4.61 K/uL (1.40-6.50) 02/20/23 07: Lymph # (Auto) 2.12 K/uL (1.2-3.4) 02/20/23 07:28 Sargent # (Auto) 0.83 K/uL (0.11-0.59) H 02/20/23 07: Eos # (Auto) 0.12 K/uL (0-0.50) 02/20/23 07:28 Baso # (Auto) 0.03 K/uL (0-0.2) 02/20/23 07: Immature Gran # (Auto) 0.03 K/uL (0.01-0.20) 02/20/23 07:28 PT 11.2 Seconds (9.0-12.0) 02/18/23 06:45 INR 1.0 (0.9-1.1) 02/18/23 06:45 APTT 55.4 Seconds (21.0-31.0) H* 02/19/23 08:00 PTT Ratio 2.0 02/19/23 08:00 Sodium 137 mmol/L (136-145) 02/20/23 07:28 Potassium 3.4 mmol/L (3.5-5.1) L 02/20/23 07: Chloride 98 mmol/L (98-107) 02/20/23 07: Carbon Dioxide 33 mmol/L (21-32) H 02/20/23 07:28 Anion Gap 6 (3-11) 02/20/23 07:28 BUN < 2 mg/dl (6-23) L 02/20/23 07:28 Creatinine 0.52 mg/dl (0.6-1.2) L 02/20/23 07:28 Est Cr Clr Drug Dosing 115.4 ml/min 02/20/23 07:28 Est GFR ( Amer) 135.6 ml/min 02/20/23 07:28 Est GFR (Non-Af Amer) 117.0 ml/min 02/20/23 07:28 BUN/Creatinine Ratio TNP 02/20/23 07:28 Glucose 88 mg/dl (70-99(Fasting)) 02/20/23 07:28 Calcium 9.1 mg/dl (8.6-10.3) 02/20/23 07: Magnesium 1.8 mg/dl (1.7-2.4) 02/20/23 07: Total Bilirubin 0.4 mg/dl (0.2-1.0) 02/20/23 07:28 AST 27 U/L (13-39) 02/20/23 07: ALT 27 U/L (7-52) 02/20/23 07:28 Alkaline Phosphatase 192 U/L (34-104) H 02/20/23 07:28 Troponin I High Sens 4.4 pg/ml (0-14) 02/17/23 09:35 Total Protein 5.9 gm/dl (6.0-8.3) L 02/20/23 07:28 Albumin 3.5 gm/dl (3.4-5.0) 02/20/23 07: Globulin 2.4 gm/dl (2.5-4.0) L 02/20/23 07:28 Albumin/Globulin Ratio 1.5 (0.9-2) 02/20/23 07:28 Lipase 71 U/L (11-82) 02/17/23 09:35 Procalcitonin < 0.05 ng/ml (0-0.5) 02/17/23 09:35 HCG, Qual Negative (Negative) 02/17/23 09:35 Urine Color Yellow 02/17/23 11:34 Urine Appearance Clear (Clear) 02/17/23 11:34 Urine pH 7.5 (4.5-7.5) 02/17/23 11:34 Ur Specific [place] 1.024 (1.000-1.030) 02/17/23 11:34 Urine Protein Negative (Negative) 02/17/23 11:34 Urine Glucose (UA) Negative (Negative) 02/17/23 11:34 Urine Ketones Negative (Negative) 02/17/23 11:34 Urine Blood Trace (Negative) H 02/17/23 11:34 Urine Nitrite Negative (Negative) 02/17/23 11:34 Urine Bilirubin Negative (Negative) 02/17/23 11:34 Urine Urobilinogen Negative (Negative) 02/17/23 11:34 Ur Leukocyte Esterase Negative (Negative) 02/17/23 11:34 Urine WBC (Auto) 1-5 /hpf (0-5) 02/17/23 11:34 Urine RBC (Auto) 0-4 /hpf (0-4) 02/17/23 11:34 U Hyaline Cast (Auto) 0 /lpf (0-5) 02/17/23 11:34 U Epithel Cells (Auto) 0-5 /lpf (0-5) 02/17/23 11:34 Urine Bacteria (Auto) Negative (Negative) 02/17/23 11:34 Ethyl Alcohol mg/dL < 10.0 mg/dl (<10.0) 02/17/23 09:54 SARS-CoV-2, RNA, NAAT NEGATIVE (NEGATIVE) 02/17/23 10:03 Impressions Abdomen/Pelvis CT 02/17/23 10:54 CT abd pelvis IV con only CLINICAL HISTORY: upper abd pain TECHNIQUE: Helical axial images of the abdomen and pelvis were obtained and displayed. Automated dose lowering techniques and/or adjustment according to patient size were utilized for this exam. This exam was performed with intravenous contrast. CT DOSE: 562.00 mGy.cm COMPARISON: Comparison is made to CT abdomen pelvis 11/12/2022 FINDINGS: Lower chest: Groundglass opacities are seen in the lower lungs. Atelectasis is noted at the left lung base. Liver: Hepatic steatosis is noted. Gallbladder and biliary tree: Patient is status post cholecystectomy. No intra- or extrahepatic biliary ductal dilation. Pancreas: Peripancreatic fat stranding is seen about the head and proximal body. No evidence of pancreatic necrosis. A few calcifications are seen. Spleen: Unremarkable. Adrenals: Unremarkable. Kidneys and ureters: Nonobstructive nephrolithiasis is seen. Bladder: Unremarkable. Reproductive organs: Intrauterine device is noted. Bowel: Unremarkable. Submucosal fat deposition throughout the colon is again seen, nonspecific. Mild prominence of the colonic wall is unchanged. Lymph nodes Retroperitoneal: Unremarkable. Pelvic: Unremarkable. Mesenteric: Unremarkable. Peritoneum: Normal. Vessels: Atherosclerotic calcifications are seen. Abdominal wall: Unremarkable. Bones: Degenerative changes in the visualized spine. IMPRESSION: 1. Pancreatitis without evidence of pancreatic necrosis or peripancreatic fluid collections. 2. Groundglass opacities in the right lower lung are somewhat more prominent than in the prior exam compatible with pneumonia. 3. Hepatic steatosis. 4. Status post cholecystectomy. 5. Normal appendix. 6. Additional findings as above. ACT 112: Negative or not required by law. Electronically signed by: Armand Cohen M.D. 02/17/2023 12:05 PM Chest X-Ray 02/17/23 15:39 XR chest 2V PA/lateral HISTORY: ?aspiration COMPARISON: Abdomen and pelvis CT 02/17/2023. Chest x-ray 11/12/2022. FINDINGS: No pneumothorax. No pleural effusions. There is mild elevation left hemidiaphragm, unchanged. The heart is normal in size. Left basilar linear densities persist and favor scarring or subsegmental atelectasis. There are hazy patchy airspace opacities within the right mid to lower lung zone. This is similar to the prior abdomen and pelvis CT and likely represents a pneumonia. IMPRESSION: Redemonstration of the hazy airspace opacities within the right mid to lower lung zone. This likely represents a pneumonia. ACT 112: Negative or not required by law. Electronically signed by: Bunny Doherty M.D. 02/17/2023 8:58 PM Hospital Course (1) Acute on chronic pancreatitis: #Acute on Chronic pancreatitis With relapse of alcohol use approximately 1 week ago for several days, gradual progression of pain similar to prior pancreatitis pain since drinking alcohol; Alcohol on admission negative MRI with and without contrast 06/2022 showed chronic pancreatitis, is on surveillance monitoring On admission leukocytosis new of 17.19, lipase is not elevated at 71. ALT is normal, trace AST elevation of 59 alk phos 321 and bilirubin is normal at 0.8. Patient did appear hemoconcentrated with elevated Hgb as well which has improved with fluids. CT-A/P: Pancreatitis without evidence of pancreatic necrosis or peripancreatic fluid collections. Discharge on zofran, phenergan, oxycodone, pantoprazole, famotidine, tylenol, carafate. Advance diet as tolerated. F/u pcp next week. #GERD #Gastritis With? Exacerbation from alcohol No melena, no bright red blood per rectum, no bloody emesis continue pantoprazole, pepcid, and carafate. Patient is pending a EGD and gastric emptying study as outpatient in the next 2 weeks. No signs of acute bleeding on admission, suspect current symptoms are due to acute on chronic pancreatitis vs gastritis. #Bibasilar ground glass opacities #Atelectasis #Cough acute on chronic cough present for about 1 week, mild without sputum production - CT A/P: Groundglass opacities in the right lower lung are somewhat more prominent than in the prior exam compatible with pneumonia - CXR: atelectasis left lower lobe - procal neg - given 1 dose unasyn on admission. Discontinued abx at this time due to low suspicion for bacterial pneumonia. - may need outpatient evaluation for chronic lung abnormalities including chest CT and PFTs. Hepatic steatosis, chronic Negative AFP and fibrosis testing 06/2022 In the setting of alcohol use Transaminitis is improved compared to prior Portal vein thrombosis, chronic - cont, home Eliquis Alcoholism -discussed cessation -good support system at home (2) GERD (gastroesophageal reflux disease): (3) Generalized anxiety disorder with panic attacks: (4) PTSD (post-traumatic stress disorder): (5) Smoker: Total Time Total Time Spent Total Time Spent (In Minutes): <30 Discharge Plan Discharge Items Patient Disposition: Home - Self-Care Reason For Visit: ACUTE ON CHRONIC PANCREATITIS Discharge Diagnosis: acute pancreatitis, gastritis Activity: Per Instructions section Non-emergency contact: Primary Care Provider and Interventional Physiatrist Call non-emergency contact if: you have any medication questions and your symptoms worsen Follow-up/Referrals: Diane Sorenson MD [Primary Care Provider] - Diet: Regular Addtl Attending Provider Instructions: You presented to the hospital with nausea and abdominal pain. We believe your symptoms are multifactorial including a mild case of pancreatitis along with gastritis which is irritation to your stomach lining both of which can be caused by alcohol use. Throughout your hospitalization it appears you have improved since when you first arrived therefore we will discharge you home on medications to relieve your nausea, pain, and stomach irritation. These medications will be listed below. You should follow-up with your primary care provider next week. We will also follow-up in a couple weeks to get your EGD and gastric emptying study. At home advance your diet as tolerated. Tylenol 1000mg three times a day Pherergan 25mg every 6 hours as needed Zofran 4mg every 4 hours as needed Oxycodone 5mg every 8 hours as needed Carafate syrup before meals Pantoprazole 40mg twice a day Famotidine 20mg twice a day Pending Studies at Discharge: No Stand-Alone Forms: My [facility] [employer], Smoking Cessation Medications and DC Order Prescriptions: New oxycodone 5 mg tablet 5 mg PO Q8H PRN (Reason: pain, severe) Qty: 10 0RF sucralfate 100 mg/mL Suspension 1 g PO QID 15 Days Qty: 600 0RF promethazine 25 mg Tablet 25 mg PO Q6H PRN (Reason: nausea and vomiting) Qty: 30 0RF famotidine 20 mg tablet 20 mg PO BID Qty: 30 0RF acetaminophen [Tylenol Extra Strength] 500 mg Tablet 1,000 mg PO Q8H PRN (Reason: pain) Qty: 30 0RF Continued Creon 36,000-114,000- 180,000 unit capsule,delayed release(DR/EC) 3 cap PO TID 90 Days Qty: 810 3RF (DME) COVID-19 At-Home Test Kit See Rx Instructions .Route Qty: 8 0RF Rx Instructions: As directed/8 per month as needed sumatriptan succinate 100 mg tablet See Rx Instructions .ROUTE .COMPLEX Qty: 16 4RF Dose Instruction: TAKE 1 TABLET BY MOUTH NEEDED FOR MIGRAINE/HEADACHE. MAY REPEAT 1 DOSE AFTER 1-2 HOURS Rx Instructions: TAKE 1 TABLET BY MOUTH NEEDED FOR MIGRAINE/HEADACHE. MAY REPEAT 1 DOSE AFTER 1-2 HOURS methocarbamol 750 mg tablet 750 mg PO TID Qty: 90 1RF fluticasone propionate 50 mcg/actuation spray,suspension 1 spray intranasal BID Qty: 16 0RF Rx Instructions: administer into each nostril thiamine HCl (vitamin B1) 100 mg tablet 300 mg PO QAM melatonin 10 mg capsule 10 mg PO HS PRN (Reason: Insomnia) magnesium citrate 100 mg tablet 100 mg PO QAM clonazepam 1 mg tablet 1 mg PO TID Qty: 90 0RF multivitamin Tablet 1 tab PO QAM mecobalamin (vitamin B12) [B12 Active] 1,000 mcg Tablet,Chewable 1,000 mcg PO QAM Eliquis 5 mg tablet 5 mg PO Q12 baclofen 20 mg tablet See Rx Instructions .ROUTE .COMPLEX Rx Instructions: Take 40mg by mouth w/ 5mg tablet twice daily to equal 45mg with each dose. potassium chloride [Klor-Con M20] 20 mEq tablet,ER particles/crystals 20 meq PO QAM clindamycin phosphate 1 % gel 1 applic topical DAILY PRN (Reason: Acne) Rx Instructions: APPLY TOPICALLY DAILY FOR ACNE folic acid 1 mg tablet 1 mg PO QAM baclofen 5 mg tablet See Rx Instructions .ROUTE .COMPLEX Rx Instructions: Take 5mg pill with 40mg dose of baclofen twice daily to equal 45mg with each dose pantoprazole 40 mg tablet,delayed release (DR/EC) 40 mg PO BID Qty: 30 1RF ondansetron 4 mg tablet,disintegrating See Rx Instructions .ROUTE .COMPLEX Qty: 30 0RF Dose Instruction: TAKE 1 TABLET BY MOUTH EVERY 6 HOURS NEEDED FOR NAUSEA Rx Instructions: TAKE 1 TABLET BY MOUTH EVERY 6 HOURS NEEDED FOR NAUSEA Discontinued promethazine 25 mg tablet See Rx Instructions .ROUTE .COMPLEX Qty: 10 0RF Dose Instruction: TAKE 1 TABLET BY MOUTH FOUR TIMES A DAY NEEDED FOR NAUSEA Rx Instructions: TAKE 1 TABLET BY MOUTH FOUR TIMES A DAY NEEDED FOR NAUSEA Discharge Orders: Discharge Order (Routine); Ordered 02/20/23 Ordered By: Gary Jimenez Admission Data Admit Date/Time: 02/17/23 13:16 Attending Provider: Narinder Calhoun Admit Provider: Enrique Myers Primary Care Provider: Diane Sorenson Other Providers: Enrique Myers ; Ariel Chavez Supervising Physician Co-Signing Physician Notes I personally examined the patient and verified all hammonds points of history and exam, discussed case, and agree with decision making with Dr Jimenez Doing better with p.o. intake, feels up to going home. Vitals noted, in general she is awake and alert pleasant no distress. HEENT normocephalic atraumatic mucous membranes moist. Breathing unlabored no accessory muscle use good effort. No focal neurologic deficits. Recurrent pancreatitisdue to alcohol. I suspect she also has some alcohol related gastritis given her immediate postprandial pain, overall mild appearance of pancreatitis, and epigastric tendernessdoing better. Discussed that I will probably take a week or so for her to feel back to normal, but that it would be safe for her to go home. From a pancreatitis standpointalcohol cessation. Oxycodone up to 3 times daily as needed (limited prescription provided) and Zofran as needed. From a gastritis standpoint, Zofran as needed as well, Protonix twice daily Pepcid twice daily and Carafate before every mealwean Carafate and acid suppression over the next 1-2 weeks as tolerated. Sees GI for an EGD in the near future as well Resident Activity Tracking Resident Involvement: Resident Care Provided Care Provided: Adult Hospital Medicine
--- NOTE | 2023-02-20 13:08 | Billing Data ---
Date of Service February 20, 2023 Coding Level of Care Code 33562 IN/OBS DISCH 30 MIN/LESS
== END 2023-02-20 14:36 | disposition home or self-care (01) | DRG 438 ==
LOC: ED 09:08 → EDINP 13:16 → SUATTDRO 13:16 → 3N 15:40

== ENCOUNTER 2023-08-18 06:11 | Inpatient (IN) ==
--- OUTSIDE RECORDS SUMMARY | 2023-08-18 06:17 | External Medical Summary | Continuity of Care Document ---
Author Name Unknown Organization [id number] Address [address] [place] [address] [id number] Care Team Providers Care Patrol Conductor Name Role Phone Sorenson Diane Whitlock Primary Care Physician [phone] [id number] Date(s): 08/11/23 - 08/11/23 [id number] Medicine [address] [place] [address] Encounter Diagnosis Hallux valgus, bilateral(Discharge Diagnosis) - 08/11/23 Metatarsalgia of both feet(Discharge Diagnosis) - 08/11/23 Callus(Discharge Diagnosis) - 08/11/23 Pain in both feet(Discharge Diagnosis) - 08/11/23 Discharge Disposition: Home or Self Care Attending Physician: JEFF Bai Christina L Referring Physician: DO Keller Thomas Allergies, Adverse Reactions, Alerts Substance Reaction Severity Status busPIRone Extreme weakness Active morphine vomiting Active CeleXA sick Active Assessment and Plan Extracted from: Title:Orthopaedics Office Visit Note Author:Deuce Lawrence DPM, Christina L Date:08/11/23 1.Hallux valgus, bilateral Discussed with patient that her calluses are not fungal in nature they are secondary to the way she walks from her bunions recommend Aquaphor twice per day with pumice stone or emery board shoes with wide soft supportcan consider bunion corrective surgery in the future patient declines at this time. Recommend follow-up in 6 months. 20-minute initial visit, 5 chart review, 15 minutes [id number] 2.Metatarsalgia of both feet 3.Callus 4.Pain in both feet Medications BACLOFEN 20 MG TABLET BACLOFEN 20 MG TABLET, TAKE 2 TABLETS BY MOUTH TWICE A DAY Start Date: 07/23/23 Status: Ordered calcium (as carbonate) 600 mg oral tablet Start: 06/13/22 14:52:00 EDT Start Date: 06/13/22 Status: Ordered clonazePAM 0.1 mg/mL oral suspension (compound) Start: 04/14/23 10:10:00 EDT, 36 each, TAKE 1 TABLET ORALLY THREE TIMES A DAY FOR 12 DAYS Start Date: 04/14/23 Status: Ordered Compazine 10 mg oral tablet Start: 11/18/22 13:29:00 EST, 1 tab, PO, tid, Disp# 30 tab, Refills: 0, PRN: as needed for nausea/vomiting, Pharmacy: [facility] [id number] Start Date: 11/18/22 Status: Ordered Creon 36,000 units oral delayed release capsule Start: 10/01/21 9:43:00 EST, 3 cap, PO, ac Start Date: 10/01/21 Status: Ordered cyanocobalamin 250 mcg oral tablet Start: 07/28/19 16:39:00 EDT, 1 tab, PO, Daily Start Date: 07/28/19 Status: Ordered Eliquis 5 mg oral tablet Start: 10/01/21 9:43:00 EST, 1 tab, PO, bid Start Date: 10/01/21 Status: Ordered FLUoxetine 40 mg oral capsule TAKE 1 CAPSULE BY MOUTH DAILY Start Date: 07/23/23 Status: Ordered folic acid 1 mg oral tablet Start: 10/01/21 9:43:00 EST, 1 tab, PO, Daily Start Date: 10/01/21 Status: Ordered Klor-Con M20 oral tablet, extended release Start: 10/01/21 9:43:00 EST, 1 tab, PO, Daily Start Date: 10/01/21 Status: Ordered magnesium oxide 250 mg oral tablet Start: 07/28/19 16:38:00 EDT, 1 tab, PO, Daily Start Date: 07/28/19 Status: Ordered melatonin Start: 05/30/22 8:54:00 EDT Start Date: 05/30/22 Status: Ordered multivitamin Start: 07/28/19 16:37:00 EDT, 1 tab, PO, Daily Start Date: 07/28/19 Status: Ordered ondansetron 4 mg oral tablet, disintegrating Start: 10/01/21 9:43:00 EST, 1 tab, PO, q8h, PRN: as needed for nausea/vomiting Start Date: 10/01/21 Status: Ordered pantoprazole 40 mg oral delayed release tablet Start: 10/01/21 9:43:00 EST, 1 tab, PO, bid Start Date: 10/01/21 Status: Ordered Robaxin-750 oral tablet Start: 06/13/22 14:50:00 EDT, 2 tab, PO, tid Start Date: 06/13/22 Status: Ordered sucralfate 1 g/10 mL oral suspension TAKE 10 ML BY MOUTH 4 TIMES A DAY Start Date: 07/23/23 Status: Ordered SUMAtriptan 100 mg oral tablet Start: 10/01/21 9:43:00 EST, 1 tab, PO, ONCE, PRN: as needed for migraine headache Start Date: 10/01/21 Status: Ordered Tylenol Start: 12/03/21 13:21:00 EST, PRN: as needed for pain Start Date: 12/03/21 Status: Ordered Vitamin B1 100 mg oral tablet 1 tab, PO, Daily Start Date: 07/28/19 Status: Ordered Vitamin D3 10,000 intl units (250 mcg) oral capsule Start: 07/23/23 9:49:00 EDT, 1 cap, PO, Daily Start Date: 07/23/23 Status: Ordered Mental Status 08/11/23 Barriers to Learning one year None evide nt Mandatory Health Literacy Documentation Yes Health Literacy Communication Barriers N ever Primary Language Welsh Problem List Condition Confirmation Course Effective Dates Status H ealth Status Informant Back pain Confirmed Active Callus Confirmed Active Chronic pancreatitis Confirmed Active Pancreatic cyst Confirmed Active Dysfunction of right rotator cuff Confirmed Active Pain in both feet Confirmed Active Gastroparesis Confirmed Active Hallux valgus, bilateral Confirmed Active Metatarsalgia of both feet Confirmed Active Neck pain Confirmed Active Portal vein thrombosis Confirmed Active Fatty liver Confirmed Active Common bile duct stricture Confirmed Active Tobacco user Confirmed Active Diagnosis Diagnosis Type Effective Dates Health Status Clinical Service Informant Metatarsalgia of both feet Discharge Diagnosis 08/11/23 Callus Discharge Diagnosis 08/11/23 Hallux valgus, bilateral Discharge Diagnosis 08/11/23 Pain in both feet Discharge Diagnosis 08/11/23 Procedures Procedure Date Related Diagnosis Body Site Status Gastric emptying study 1 07/09/[address] of abdomen and pelvis 2 05/16/23 Completed EKG finding 3 05/16/23 Completed Esophagogastroduodenoscopy 4 04/07/23 Completed Chest X-ray 5 02/17/[address] of abdomen and pelvis 6 02/17/23 Completed MRI of abdomen 7 07/05/22 Complete d Ultrasound 8 07/05/22 Completed Breast biopsy and related procedures--right breast Complet ed Cholecystectomy Completed Upper GI endoscopy Comple syeda 1IMPRESSION: Delayed gastric emptying as described above. 21) [id number] colonic and rectal wall thickening, consistent with proctocolitis. This may be related to to infectious etiology or inflammatory bowel. 2) Stomach not well distended with relative moderate gastric fold prominence. Underlying gastritis cannot be excluded. Recommend correlation wt clinical findings. 3) S/P cholecystectomy. Unchanged dilated extrahepatic/common bile duct. No calcified stones. 4) Unchagned punctate calcifications in the pancreatic head region, consistent with sequela prior pancreatitis/chronic pancreatitis. 5) Increased lelevated left hemidiaphragm, as noted above. 3Sinus tachycardia Otherwise normal ECG. 4EGD 2nd duod nl bx, antrum nl bx, erythema body bx, 5Redeomonstartion of the hazy airspace opacities within the right mid to lower lung zone. This likely represents a pneumonia 61) Pancreatitis without evidence of pancreatic necrosis or peripantreatic fluid collections. 2) Groundglass opacities in the right lower lung are somewhat more prominent than in the prior examcompatible with pneumonia. 3) Hepatic steatosis 4) S/P cholecystectomy 5) Normal appendix 6) Additional findings as above. 71) No change in smooth narrowing of the distal common bile duct and the pancreatic duct since MRI of March 08, 2021 2) Decrrease in conspicuity of the previously described nodule at the pancreatic head/nexk juntion MRI March 08, 2021. This likely reflected a peripancreatic lymph node. 3) SLight heterogeneity of the uncinate process which likley reflects swquela of chronic pancreatitis. 4) Caliber of CBD at the upper limits of normal following cholecystectomy. No CBD calculi 81) Mild hepatic steatosis 2) Prior cholecystectomy 3) The pancreas was obscured by overly gas pattern Social History Social History Type Response Smoking Status Current every day he juwan smoker Sex Female Ortho Outpt Note * JEFF Bai, Selene L: PERFORM Event Display: Ortho Outpt Note Authored Date: [id number] Primary Care Provider MD Sorenson Tania S Referring Provider DO Keller Thomas Chief Complaint left foot second and third burning sensation,, was concerned about a fungus. has since resolved since washing shoes History of Present Illness Is a very pleasant 42-year-old female presenting today for an initial evaluation of the left foot. Notes left foot second and third burning sensation was concerned about a fungus this has resolved since washing the shoes Patient works at [employer] There is a history of left foot pain months ago is when it occurrednot sure howhours it is painful it is under the left foot toe does not movesitting take his shoes off improves the pain shoes on will worsen the pain Past medical historyback pain pancreatitisfatty liver gastroparesishistory of portal vein thrombosis Medicationsreviewed and includes Eliquisfor portal vein thrombosis Historycholecystectomy breast biopsy Allergiesreviewed Social historypositive for smoking half pack per daydenies alcohol use denies a chemical tendency denies Family historyno pertinent positive Review of Systems Kidney stones decreased vision arthritis anxietystomach pain persistent vomiting blood thinner use patient takes Eliquis Physical Exam Problem focused bilateral feet: Dorsalis pedis pulse palpable 2-4, posterior tibial is palpable 2 out of 4, capillary fill less than 2 seconds, skin turgor tolerance of both feet pedal hair is present. Neurovascular statusgrossly intact to all digits of both feet. Skin clean dry and intact without maceration or breakdown there are no open wounds present. Bilaterally moderate to severe hallux valgus deformitywith dorsal medial exostosis nontender to patientthere is some hammering of second digit secondary to the bunion deformity. This is secondary to metatarsalgia. No metatarsal pain noted. Calluses present on the medial aspect of the hallux plantar medial aspect of the first metatarsal secondary to pressure recommend Aquaphor twice per day and use a pumice stone or emery board. There is an irritated area of the second interspace left footlikely secondary to neuroma-like symptoms from hallux valgus deformity currently nontender. Assessment/Plan 1.Hallux valgus, bilateral Discussed with patient that her calluses are not fungal in nature they are secondary to the way shewalks from her bunions recommend Aquaphor twice per day with pumice stone or emery board shoes withwide soft supportcan consider bunion corrective surgery in the future patient declines at this time. Recommend follow-up in 6 months. 20-minute initial visit, 5 chart review, 15 minutes [id number] 2.Metatarsalgia of both feet 3.Callus 4.Pain in both feet Problem List/Past Medical History Ongoing Abdominal pain Back pain Callus Chronic pancreatitis Common bile duct stricture Dysfunction of right rotator cuff Fatty liver Gastroparesis Hallux valgus, bilateral Metatarsalgia of both feet Neck pain Pain in both feet Pancreatic cyst Portal vein thrombosis Tobacco user Procedure/Surgical History Gastric emptying study (07/09/2023)EKG finding (05/16/2023)CT of abdomen and pelvis (05/16/2023)Esophagogastroduodenoscopy (04/07/2023)Chest X-ray (02/17/2023)CT of abdomen and pelvis (02/17/2023)MRI of abdomen (07/05/2022)Ultrasound (07/05/2022)Breast biopsy and related procedures--right breastUpper GI endoscopyCholecystectomy Medications acetaminophen(Tylenol), PRN apixaban(Eliquis 5 mg oral tablet), 5 mg= 1 tab, PO, bid calcium carbonate(calcium (as carbonate) 600 mg oral tablet) cholecalciferol(Vitamin D3 10,000 intl units (250 mcg) oral capsule), 250 mcg= 1 cap, PO, Daily clonazePAM(clonazePAM 0.1 mg/mL oral suspension (compound)) cyanocobalamin(cyanocobalamin 250 mcg oral tablet), 250 mcg= 1 tab, PO, Daily FLUoxetine(FLUoxetine 40 mg oral capsule) folic acid(folic acid 1 mg oral tablet), 1 mg= 1 tab, PO, Daily magnesium oxide(magnesium oxide 250 mg oral tablet), 250 mg= 1 tab, PO, Daily melatonin methocarbamol(Robaxin-750 oral tablet), 1500 mg= 2 tab, PO, tid multivitamin, 1 tab, PO, Daily ondansetron(ondansetron 4 mg oral tablet, disintegrating), 4 mg= 1 tab, PO, q8h, PRN pancrelipase(Creon 36,000 units oral delayed release capsule), 3 cap, PO, ac pantoprazole(pantoprazole 40 mg oral delayed release tablet), 40 mg= 1 tab, PO, bid potassium chloride(Klor-Con M20 oral tablet, extended release), 20 mEq= 1 tab, PO, Daily prochlorperazine(Compazine 10 mg oral tablet), 10 mg= 1 tab, PO, tid, PRN sucralfate(sucralfate 1 g/10 mL oral suspension) SUMAtriptan(SUMAtriptan 100 mg oral tablet), 100 mg= 1 tab, PO, ONCE, PRN thiamine(Vitamin B1 100 mg oral tablet), 100 mg= 1 tab, PO, Daily unlisted medication(BACLOFEN 20 MG TABLET) Allergies CeleXAsick busPIRoneExtreme weakness morphinevomiting Social History Smoking Status Current every day heavy smoker Family History Cancer: MGM and PGF. Diabetes: MGF and MGM. Heart attack: Father. Heart disease: PGF. Hypertension: Father and MGM. Hypothyroidism: Mother. Stroke: Father. Health Status Family Member(s) Recommendations Health Maintenance Pending(in the next year) OverDue Adult Influenza Vaccine due03/29/23and every 1year Due Adult COVID-19 Vaccination due08/11/23Unknown Frequency Adult Folic Acid Supplementation due08/11/23and every 3year Adult Tdap/Td Vaccine due08/11/23Unknown Frequency Cervical Cancer Screening due08/11/23Unknown Frequency Lipid Screening due08/11/23Unknown Frequency Due In Future Body Mass Index not due until07/22/24and every 1year Satisfied(in the past 1 year) Satisfied Body Mass Index on07/23/23.Satisfied by [facility] Erin Electronic Signature on File CC: Diane Sorenson MD [id number] [facility] [id number] * Electronically Reviewed/Signed by: Selene Bai DPM Author Signature Dt/Tm:08/11/2023 10:34 AM Division of Sports Medicine CLR * JEFF Bai, Selene Avery: PERFORM Event Display: Ortho Outpt Note Authored Date: [id number] Name:ADA DYSON Patient Number:[id number] :[id number] Date of Service:06/26/2023 patient was a no show today Electronic Signature on File Electronically Reviewed/Signed by: Selene Bai DPM Author Signature Dt/Tm:06/26/2023 03:19 PM Division of Sports Medicine CLR Patient Care team information Care Team Personnel Name: MD Delta, Diane Whitlock Position: Referring Member Role: Primary Care Provider Address: Address: [address] [place] [address], [place] [address] Care Team Related Persons Name: MANNY DYSON Address: home [address] [facility] [place], [place] [id number]
[2023-08-18] MEDS ORDERED: SODIUM CHLORIDE 0.9% 1,000 ML IV ONE (07:16)
[2023-08-18] MEDS ORDERED: DROPERIDOL 5 MG/2 ML VIAL IV STA (07:32)
[2023-08-18 07:33] LABS: Basophils # (auto) 0.05 K/uL (0.00-0.20); Basophils % (auto) 0.7 %; Eosinophils # (auto) 0.01 K/uL (0.00-0.50); Eosinophils % (auto) 0.1 %; Hematocrit (blood only) 42.5 % (37.0-47.0); Hemoglobin 14.3 g/dl (12.0-16.0); Immature Granulocytes # (auto) 0.03 K/uL (0.01-0.20); Immature Granulocytes % (auto) 0.4 %; Lymphocytes # (auto) 2.02 K/uL (1.20-3.40); Lymphocytes % (auto) 27.2 %; Mean Corpuscular Hemoglobin 29.7 pg (25.0-34.0); Mean Corpuscular Hgb Conc 33.6 g/dL (32.0-36.0); Mean Corpuscular Volume 88.4 fL (80.0-100.0); Mean Platelet Volume 9.7 fL (9.4-12.4); Monocytes # (auto) 0.51 K/uL (0.11-0.59); Monocytes % (auto) 6.9 %; Neutrophils % (auto) 64.7 %; Platelet Count 526 K/uL (130-400); RDW Coefficient of Variation 14.2 % (11.5-14.5); RDW Standard Deviation 46.2 fL (36.4-46.3); Red Blood Count 4.81 M/uL (4.20-5.40); White Blood Count 7.42 K/ul (4.8-10.8)
[2023-08-18 07:55] LABS: Albumin Level 4.2 gm/dl (3.4-5.0); Bilirubin Direct 0.1 mg/dl (0-0.2); Bilirubin,Total 0.4 mg/dl (0.2-1.0); Calcium 8.9 mg/dl (8.6-10.3); Potassium 3.1 mmol/L (3.5-5.1)
[2023-08-18 07:58] LABS: Pregnancy Test, Serum Negative (Negative)
[2023-08-18 08:01] LABS: BUN Creatinine Ratio 36.4 (10-20); Creatinine Clr Calc Pharmacy 90.9 ml/min; Est GFR (African American) 125.4 ml/min; Est GFR (Non-African American) 108.2 ml/min
--- NOTE | 2023-08-18 08:28 | Emergency Department Note ---
Impression & Plan Chronic pancreatitis ED Provider Note NAME: ADA DYSON AGE: 42 SEX: F : 1980 ARRIVES VIA: Walk-In INFORMANT: Patient, ED PROVIDER(S): Chauncey Garcia MD CHIEF COMPLAINT: Nausea vomiting, abdominal pain HPI: This is a 41-year-old female with history of cyclic vomiting syndrome, pancreatitis, alcohol use disorder, marijuana use disorder presenting for nausea vomiting. Patient states that over the past 3 days she has noticed increasing abdominal pain diffusely. She also notes vomiting persistently that over the past 3 days. She repeats she states this happened previously in the past. She notes that it feels somewhat like gastritis. He notes that she does smoke marijuana daily, which is less than previously. Otherwise she notes that she did drink alcohol last night and states that she has not drank alcohol since May otherwise. ROS: See above HPI for pertinent positives & negatives. A total of 10 systems reviewed and were otherwise negative. PAST MEDICAL HISTORY: See Below PAST SURGICAL HISTORY: See Below FAMILY HISTORY: See Below SOCIAL HISTORY: See Below HOME MEDICATIONS: See Below ALLERGIES: See Below VITALS: See Below PHYSICAL EXAMINATION: General: resting comfortably in no acute distress, dehydrated Head: Normocephalic and atraumatic Eyes: Normal inspection, extraocular muscles intact Ear, nose, throat: Normal external exam Neck: Normal range of motion Respiratory: lungs clear to auscultation bilaterally Cardiovascular: Regular rate/rhythm, no murmur GI: soft, nontender, no guarding or rebound Extremities: nontender, moves all extremities Neuro: The patient awake and alert, appropriately conversive, no focal deficits, symmetric faces Skin: Warm, dry, and intact MEDICAL DECISION MAKING: This is a 41-year-old female history of cyclic vomiting, pancreatitis, alcohol use, marijuana use disorder presenting for nausea vomiting and abdominal pain. Patient vital signs are reassuring upon arrival. Patient does appear somewhat clinically dehydrated. We will give fluid resuscitation, electrolyte repletion, droperidol for nausea vomiting. Patient's blood work is reviewed showing hypokalemia, will replete here. Otherwise thrombocytosis. Patient with slight anion gap, likely starvation versus alcoholic ketosis patient's alcohol is also elevated over 100. Give D5 NS. Patient has significant change from droperidol, will give Reglan. Patient request multiple times that she specifically needs Dilaudid for her pain as this helped in the past. Patient's lipase nonelevated here. After negative work-up, negative blood work and no nausea or vomiting here, patient continues to describe abdominal pain. Despite his reassuring exam, will do CT abdomen/pelvis. CT abdomen pelvis reveals a possible mild pancreatitis. No small bowel obstruction. Patient continues to have no emesis here. Will admit for pain control at this time. Triage Nursing notes reviewed. Prior medical records reviewed Vital Signs: reviewed and remarkable for no significant abnormalities Differential diagnosis: Appendicitis, ovarian cyst, ovarian torsion, ectopic , TOA, PID, diverticulitis, UTI, obstruction, mesenteric ischemia, aortic pathology, inflammatory bowel disease, renal colic, PUD, pancreatitis, biliary pathology, hernia, volvulus, constipation, as well as other pathologies. ER treatment provided: See below Diagnostics interpreted by me: ECG: None Cardiac Monitoring: An order was placed for continuous cardiac monitoring. The monitor shows a rate of 90 with sinus rhythm Laboratory studies: As stated above and show below. Imaging studies: See below. Radiographic imaging was reviewed by myself Consultation(s): None Past Med/Surg History Medical History Fracture of middle phalanx of finger of right hand Fracture of third metacarpal bone of right hand Distal radius fracture, right Fracture of distal phalanx of finger MCL sprain of right knee Toe fracture, left Sleeping difficulty Anxiety and depression Marijuana use Tendinitis of right rotator cuff Pancreatic pseudocyst Acute pancreatitis Alcohol abuse Pancreatitis alcoholic Acne Kidney failure 2009 (RESOLVED/SAW A [employer]ER) Liver enzyme elevation GERD (gastroesophageal reflux disease) Panic attacks Back pain, chronic Chronic neck pain Insomnia PTSD (post-traumatic stress disorder) Pancreatitis, alcoholic, acute Peptic ulcer disease 2 YEARS AGO DX Acute gallstone pancreatitis Hiatal hernia Migraines Surgical History History of breast biopsy History of esophagogastroduodenoscopy (EGD) 07/02/19- Dr. Gala Willett "LAST APRIL" History of esophagogastroduodenoscopy (EGD) History of cholecystectomy History of tooth extraction History of lumpectomy of right breast BENIGN Family History Father Family history of diabetes mellitus Myocardial infarction Stroke Hypertension Grandfather (Maternal) Family history of diabetes mellitus Grandmother (Maternal) Family history of diabetes mellitus Hypertension Cancer Mother Hypothyroidism Grandfather (Paternal) Cancer Heart problem Grandmother (Paternal) Hypertension Denies family history of Ovarian cancer Prostate cancer Breast cancer Colorectal cancer Social History Smoking Status: Current every day smoker Tobacco Type: Cigarettes Cigarettes Per Day: Half a pack a day.; Second Hand Exposure: Yes; Do You Dip or Chew Tobacco: No; Hx Alcohol Use: Yes Alcohol type: hard liquor Hx Substance Use: Yes Last Used Substance: Days (ago) Last Used Substance Other:: yesterday Substance Use Type Other:: Smokes Kurt Preferred Language: [place] Communication Ability: Effective Visual Impairment: No Limitations Hearing Ability: Normal 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 Beliefs That Will Affect Care: None marital status: Single Current Living Situation: Parent Current Living Situation Comment: lives at home with mom current occupational status: employed current occupation: at [employer] How many Children do You have: 0 Feels Safe at Home: Yes Childhood Exposure to Second-Hand Smoke: No Diet: regular Diet Comment: regular Dental Care, Regularly: Yes Physical Activity Frequency: Does not Exercise Seatbelt Use: always Sunscreen Use: Yes Do you think of yourself as: straight/heterosexual Assistive Devices: None Allergies Allergies Allergy/AdvReac Type Severity Reaction Status Date / Time buspirone [From BuSpar] Allergy Severe Unconscious, Verified 08/18/23 12:35 seizures quetiapine [From Seroquel] Allergy Severe Unconscious, Verified 08/18/23 12:35 seizures citalopram [From Celexa] AdvReac Intermediate Vomiting Verified 08/18/23 12:35 morphine AdvReac Intermediate "MAKES ME Verified 08/18/23 12:35 SICK(VOMITING)" vilazodone [From Viibryd] AdvReac Vomiting Verified 08/18/23 12:35 Home Meds Home Medications Medication Instructions Recorded Confirmed multivitamin 1 tab PO QAM 03/18/19 08/18/23 mecobalamin (vitamin B12) 1,000 1,000 mcg PO QAM 11/10/19 08/18/23 mcg chewable tablet (B12 Active) apixaban 5 mg tablet (Eliquis) 5 mg PO BID 04/12/21 08/18/23 thiamine HCl (vitamin B1) 100 mg 300 mg PO QAM 04/17/21 08/18/23 tablet magnesium citrate 100 mg tablet 100 mg PO QAM 05/23/22 08/18/23 clindamycin phosphate 1 % topical 1 applic topical DAILY PRN Acne 02/17/23 08/18/23 gel medical marijuana 1 puff inhalation HS PRN Sleep 05/21/23 08/18/23 melatonin 10 mg capsule 10 mg PO HS PRN Sleep 05/21/23 08/18/23 baclofen 20 mg tablet 20 mg PO BID 08/18/23 08/18/23 calcium carbonate 600 mg calcium 600 mg PO QAM 08/18/23 08/18/23 (1,500 mg) tablet cholecalciferol (vitamin D3) 250 250 mcg PO QAM 08/18/23 08/18/23 mcg (10,000 unit) capsule fluoxetine 40 mg capsule 40 mg PO QAM 08/18/23 08/18/23 methocarbamol 750 mg tablet 750 mg PO TID 08/18/23 08/18/23 ondansetron 4 mg disintegrating 4 mg PO Q6H PRN Nausea And Vomiting 08/18/23 08/18/23 tablet pantoprazole 40 mg tablet,delayed 40 mg PO BID 08/18/23 08/18/23 release promethazine 25 mg tablet 25 mg PO Q6H PRN Nausea And 08/18/23 08/18/23 Vomiting sucralfate 100 mg/mL oral 1,000 mg PO QID PRN stomach pain 08/18/23 08/18/23 suspension sumatriptan succinate 100 mg tablet 100 mg PO DAILY PRN 08/18/23 08/18/23 migraine/headache Previous Rx's Medication Instructions Recorded [id number] 3 cap PO TID Abdominal Discomfort 09/16/22 36,000-114,000-180,000 unit 90 days #810 caps capsule,delay rel (Creon) TENS unit and electrodes combo pack #1 ea 07/10/23 clonazepam 1 mg tablet 0.5 mg (1/2 x 1 mg) PO BID 30 days 07/22/23 #30 tabs potassium chloride 20 mEq 20 meq PO QAM #30 tabs 08/12/23 tablet,extended release(part/cryst) (Klor-Con M) folic acid 1 mg tablet See Rx Instructions .Route 08/18/23 .COMPLEX #90 tabs Results & Data (ED) Vital Signs Vital Signs - 24 hr 08/18/23 06:20 08/18/23 08:02 08/18/23 10:38 Temperature 36.5 C Temperature Source Temporal Artery Scan Pulse Rate 117 H Pulse Rate [Apical] 98 H 75 Pulse Rhythm [Apical] Pulse Strength [Apical] Respiratory Rate 18 16 16 Respiratory Effort / Characteristics Non-Labored Spontaneous Respiratory Depth Normal Respiratory Pattern Blood Pressure 123/85 Blood Pressure [Left Arm] 123/84 Blood Pressure Mean 97 Blood Pressure Mean [Left Arm] 97 Blood Pressure Position [Left Arm] Pulse Oximetry 100 98 96 Oxygen Delivery Method Room Air Room Air Room Air Sepsis New/Unexplained Change in Mental Status N/A Sepsis Action Taken by Nursing No Action Required 08/18/23 11:00 08/18/23 13:00 08/18/23 15:00 Temperature Temperature Source Pulse Rate Pulse Rate [Apical] 89 89 90 Pulse Rhythm [Apical] Regular Regular Regular Pulse Strength [Apical] Normal Normal Normal Respiratory Rate 20 18 20 Respiratory Effort / Characteristics Non-Labored Spontaneous Non-Labored Spontaneous Non-Labored Spontaneous Respiratory Depth Normal Normal Normal Respiratory Pattern Regular Regular Regular Blood Pressure Blood Pressure [Left Arm] 121/79 134/91 129/82 Blood Pressure Mean Blood Pressure Mean [Left Arm] 93 105 97 Blood Pressure Position [Left Arm] Sitting Sitting Sitting Pulse Oximetry 96 96 96 Oxygen Delivery Method Room Air Room Air Room Air Sepsis New/Unexplained Change in Mental Status Sepsis Action Taken by Nursing Laboratory Data 08/18/23 06:42 08/18/23 06:42 Lab Results 08/18/23 08/18/23 Range/Units 06:42 07:29 WBC 7.42 (4.8-10.8) K/ul RBC 4.81 (4.20-5.40) M/uL Hgb 14.3 (12.0-16.0) g/dl Hct 42.5 (37.0-47.0) % MCV 88.4 (80.0-100.0) fL MCH 29.7 (25.0-34.0) pg MCHC 33.6 (32.0-36.0) g/dL RDW Std Deviation 46.2 (36.4-46.3) fL RDW Coeff of Jessica 14.2 (11.5-14.5) % Plt Count 526 H (130-400) K/uL MPV 9.7 (9.4-12.4) fL Immature Gran % (Auto) 0.4 % Neut % (Auto) 64.7 % Lymph % (Auto) 27.2 % [place] % (Auto) 6.9 % Eos % (Auto) 0.1 % Baso % (Auto) 0.7 % Neut # (Auto) 4.80 (1.40-6.50) K/uL Lymph # (Auto) 2.02 (1.20-3.40) K/uL [place] # (Auto) 0.51 (0.11-0.59) K/uL Eos # (Auto) 0.01 (0.00-0.50) K/uL Baso # (Auto) 0.05 (0.00-0.20) K/uL Immature Gran # (Auto) 0.03 (0.01-0.20) K/uL Sodium 140 (136-145) mmol/L Potassium 3.1 L (3.5-5.1) mmol/L Chloride 102 (98-107) mmol/L Carbon Dioxide 23 (21-32) mmol/L Anion Gap 15 H (3-11) BUN 24 H (6-23) mg/dl Creatinine 0.66 (0.6-1.2) mg/dl Est Cr Clr Drug Dosing 90.9 ml/min Est GFR ( Amer) 125.4 ml/min Est GFR (Non-Af Amer) 108.2 ml/min BUN/Creatinine Ratio 36.4 H (10-20) Glucose 112 H (70-99(Fasting)) mg/dl Calcium 8.9 (8.6-10.3) mg/dl Phosphorus 1.9 L (2.5-4.9) mg/dl Magnesium 2.0 (1.7-2.4) mg/dl Total Bilirubin 0.4 (0.2-1.0) mg/dl Direct Bilirubin 0.1 (0-0.2) mg/dl AST 15 (13-39) U/L ALT 11 (7-52) U/L Alkaline Phosphatase 108 H (34-104) U/L Total Protein 7.0 (6.0-8.3) gm/dl Albumin 4.2 (3.4-5.0) gm/dl Lipase 27 (11-82) U/L HCG, Qual Negative (Negative) Urine Color Yellow Urine Appearance Clear (Clear) Urine pH 7.5 (4.5-7.5) Ur Specific [place] 1.029 (1.000-1.030) Urine Protein Trace H (Negative) Urine Glucose (UA) Negative (Negative) Urine Ketones Trace H (Negative) Urine Blood Negative (Negative) Urine Nitrite Negative (Negative) Urine Bilirubin Negative (Negative) Urine Urobilinogen Negative (Negative) Ur Leukocyte Esterase Negative (Negative) Urine WBC (Auto) 1-5 (0-5) /hpf Urine RBC (Auto) 5-10 H (0-4) /hpf U Hyaline Cast (Auto) 1-5 (0-5) /lpf U Epithel Cells (Auto) >30 H (0-5) /lpf Urine Bacteria (Auto) Negative (Negative) Ethyl Alcohol mg/dL 100.6 H (<10.0) mg/dl Administered Medications Lactated Ringer's (Lr) 1,000 mls @ 125 mls/hr IV .Q8H CIRO Stop: 08/19/23 13:59 Last Admin: 08/18/23 14:03 Dose: 125 mls/hr Documented By: QGV Discontinued Medications Droperidol (Droperidol 5 Mg/2 Ml Vial) 2.5 mg IV ONE STA Stop: 08/18/23 07:33 Last Admin: 08/18/23 08:01 Dose: 2.5 mg Documented By: BONY Hydromorphone HCl (Hydromorphone Inj 0.5 Mg/0.5 Ml Syr) 0.5 mg IV NOW STA Stop: 08/18/23 10:29 Last Admin: 08/18/23 10:35 Dose: 0.5 mg Documented By: BONY Hydromorphone HCl (Hydromorphone Inj 0.5 Mg/0.5 Ml Syr) 0.5 mg IV NOW STA Stop: 08/18/23 12:28 Last Admin: 08/18/23 13:03 Dose: 0.5 mg Documented By: WILLIE Sodium Chloride (Nss) 1,000 mls @ 999 mls/hr IV .Q1H1M ONE Stop: 08/18/23 08:16 Last Infusion: 08/18/23 09:46 Dose: Infused Documented By: Admin: 08/18/23 08:01 Dose: 999 mls/hr Documented By: KV Dextrose/Sodium Chloride (D5w And Nss) 1,000 mls @ 125 mls/hr IV .Q8H CIRO Stop: 09/17/23 08:44 Last Infusion: 08/18/23 14:04 Dose: Infused Documented By: Admin: 08/18/23 10:35 Dose: 125 mls/hr Documented By: KV Acetaminophen (Ofirmev) 1,000 mg in 100 mls @ 400 mls/hr IV NOW STA Stop: 08/18/23 09:52 Last Infusion: 08/18/23 10:09 Dose: Infused Documented By: Admin: 08/18/23 09:46 Dose: 400 mls/hr Documented By: KV Pantoprazole Sodium 40 mg/ (Syringe) 10 mls @ 5 mls/min IV NOW STA Stop: 08/18/23 13:51 Last Admin: 08/18/23 14:13 Dose: 5 mls/min Documented By: QGV Famotidine 20 mg/ Syringe 5 mls @ 2.5 mls/min IV ONE STA Stop: 08/18/23 13:51 Last Admin: 08/18/23 14:12 Dose: 2.5 mls/min Documented By: QGV Ioversol (Optiray 320 500ml) 97 ml IV ONCE ONE Stop: 08/18/23 12:05 Last Admin: 08/18/23 12:05 Dose: 97 ml Documented By: KSF Potassium Chloride (Potassium Chloride Crtab 20 Meq Tabcr) 40 meq PO NOW STA Stop: 08/18/23 08:43 Last Admin: 08/18/23 09:46 Dose: 40 meq Documented By: KV Imaging Data Radiologist's Impression: Abdomen/Pelvis CT 08/18/23 11:22 CT SCAN OF THE ABDOMEN AND PELVIS WITH IV CONTRAST CLINICAL HISTORY: Generalized abdominal pain. Nausea. Vomiting. COMPARISON STUDY: Abdominal CT dated 02/17/2023. TECHNIQUE: Following the IV administration of 97 cc of Optiray 320, CT scan of the abdomen and pelvis is performed from the lung bases to the proximal femora. Images are reviewed in the axial, sagittal, and coronal planes. IV contrast was administered without complication. A dose lowering technique was utilized adhering to the principles of ALARA. CT DOSE: 634.56 mGy.cm FINDINGS: Lung bases: The heart is normal in size and without pericardial effusion. There is left basilar scarring/atelectasis. A 3 mm right middle lobe pulmonary nodule on image #32 is unchanged. There is no airspace consolidation typical for pneumonia or pleural effusion. Liver: The contrast-enhanced liver is normal in size, contour, and attenuation. There is no intrahepatic biliary ductal dilatation. The hepatic veins and portal veins are patent. Gallbladder: Surgically absent noting clips in the gallbladder fossa. Spleen: Normal in size and attenuation. Pancreas: Parenchymal calcifications are again seen in the uncinate process with mild fatty infiltration. The pancreas is otherwise normal as imaged. The gland enhances throughout. The duct is normal in caliber and there is no peripancreatic fluid collection Adrenal glands: Small bilateral adrenal adenomas are unchanged. Kidneys: The contrast enhanced kidneys are normal in size and without hydronephrosis. The kidneys enhance symmetrically. There small nonobstructing left renal calculi measuring up to 3 mm. No right renal calculi are clearly seen on this contrast-enhanced examination. There is no ureteral stone. Abdominal vasculature: The abdominal aorta is normal in course and caliber noting mild to moderate atherosclerotic calcification. Bowel: There is no bowel obstruction. Submucosal fat deposition is seen throughout the colon. This is a nonspecific finding but is been described in the setting of chronic inflammation. No acute inflammation is identified. The appendix is well-visualized and normal. Peritoneum: There is no intraperitoneal free air or abdominal ascites. A navel piercing is noted. Lymphadenopathy: None. Pelvic viscera: The bladder is decompressed and grossly unremarkable. The uterus is normal as visualized noting an intrauterine device in place. No adnexal lesion is seen. Skeletal structures: No lytic or blastic lesions are seen. IMPRESSION: 1. Question mild acute pancreatitis. Correlate with clinical and laboratory findings. 2. There is no bowel obstruction. 3. Additional findings as above. ACT 112: Negative or not required by law. Electronically signed by: Austin Hines M.D. 08/18/2023 12:44 PM Discharge Plan Visit Data Chief Complaint: Vomiting Stated Complaint: CAN'T STOP VOMITING ED Provider: Chauncey Garcia Discharge Problem: Chronic pancreatitis Patient Disposition: Admitted As Inpatient Discharge Instructions Interventions: ED Discharge Assessment Last Done: 08/18/23 15:13 Forms Stand Alone Forms: [facility] [place] Prescriptions Prescriptions: No Action melatonin 10 mg capsule 10 mg PO HS PRN (Reason: Sleep) medical marijuana 1 puff inhalation HS PRN (Reason: Sleep) Rx Instructions: ROBERTO Milton 36,000-114,000- 180,000 unit capsule,delayed release(DR/EC) 3 cap PO TID 90 Days Qty: 810 3RF Rx Instructions: With meals clonazepam 1 mg tablet 0.5 mg PO BID 30 Days Qty: 30 0RF potassium chloride [Klor-Con M20] 20 mEq tablet,ER particles/crystals 20 meq PO QAM Qty: 30 2RF folic acid 1 mg tablet See Rx Instructions .ROUTE .COMPLEX Qty: 90 3RF Dose Instruction: TAKE 1 TABLET BY MOUTH EVERY DAY IN THE MORNING Rx Instructions: TAKE 1 TABLET BY MOUTH EVERY DAY IN THE MORNING thiamine HCl (vitamin B1) 100 mg tablet 300 mg PO QAM magnesium citrate 100 mg tablet 100 mg PO QAM (DME) TENS unit and electrodes Combo Pack See Rx Instructions .Route Qty: 1 0RF Rx Instructions: As directed multivitamin Tablet 1 tab PO QAM mecobalamin (vitamin B12) [B12 Active] 1,000 mcg Tablet,Chewable 1,000 mcg PO QAM Eliquis 5 mg tablet 5 mg PO BID clindamycin phosphate 1 % gel 1 applic topical DAILY PRN (Reason: Acne) Rx Instructions: APPLY TOPICALLY DAILY FOR ACNE fluoxetine 40 mg capsule 40 mg PO QAM sumatriptan succinate 100 mg tablet 100 mg PO DAILY PRN (Reason: migraine/headache) Rx Instructions: TAKE 1 TABLET BY MOUTH NEEDED FOR MIGRAINE/HEADACHE. MAY REPEAT 1 DOSE AFTER 1-2 HOURS sucralfate 100 mg/mL suspension 1,000 mg PO QID PRN (Reason: stomach pain) baclofen 20 mg tablet 20 mg PO BID Rx Instructions: TAKE 2 TABLETS BY MOUTH TWICE A DAY FOR 30 DAYS calcium carbonate 600 mg calcium (1,500 mg) tablet 600 mg PO QAM methocarbamol 750 mg tablet 750 mg PO TID Rx Instructions: TAKE 1 TABLET BY MOUTH THREE TIMES A DAY pantoprazole 40 mg tablet,delayed release (DR/EC) 40 mg PO BID promethazine 25 mg tablet 25 mg PO Q6H PRN (Reason: Nausea And Vomiting) Rx Instructions: TAKE 1 TABLET BY MOUTH EVERY 6 HOURS NEEDED FOR NAUSEA AND VOMITING ondansetron 4 mg tablet,disintegrating 4 mg PO Q6H PRN (Reason: Nausea And Vomiting) Rx Instructions: TAKE 1 TABLET BY MOUTH EVERY 6 HOURS NEEDED FOR NAUSEA cholecalciferol (vitamin D3) 250 mcg (10,000 unit) capsule 250 mcg PO QAM Referrals Referrals: Damian Keller DO [Primary Care Provider] -
[2023-08-18] MEDS ORDERED: POTASSIUM CHLORIDE CRTAB 20 MEQ TABCR PO STA (08:42)
[2023-08-18] MEDS ORDERED: D5W AND NSS 1,000 ML IV SCH (08:45)
[2023-08-18 08:55] LABS: Appearance Urine Clear (Clear); Bacteria Urine Automated Negative (Negative); Bilirubin Urine Negative (Negative); Blood Urine Negative (Negative); Color Urine Yellow; Epithelial Cell Urine Auto >30 /lpf (0-5); Glucose Urine UA Negative (Negative); Ketones Urine Trace (Negative); Leukocyte Esterase Urine Negative (Negative); Nitrite Urine Negative (Negative); Specific Gravity Urine 1.029 (1.000-1.030); Urobilinogen Urine Negative (Negative); pH Urine 7.5 (4.5-7.5)
[2023-08-18 09:07] LABS: Protein Urine Trace (Negative)
[2023-08-18] MEDS ORDERED: ACETAMINOPHEN 1,000 MG/100 ML VIAL IV STA (09:38)
[2023-08-18] MEDS ORDERED: HYDROmorphone INJ 0.5 MG/0.5 ML SYR IV STA ×2 (10:28→12:27)
[2023-08-18] MEDS ORDERED: OPTIRAY 320 500ml IV ONE (12:04)
--- NOTE | 2023-08-18 12:45 | CT Scan Report ---
CT SCAN OF THE ABDOMEN AND PELVIS WITH IV CONTRAST CLINICAL HISTORY: Generalized abdominal pain. Nausea. Vomiting. COMPARISON STUDY: Abdominal CT dated 02/17/2023. TECHNIQUE: Following the IV administration of 97 cc of Optiray 320, CT scan of the abdomen and pelvi s is performed from the lung bases to the proximal femora. Images are reviewed in the axial, sagittal , and coronal planes. IV contrast was administered without complication. A dose lowering technique wa s utilized adhering to the principles of ALARA. CT DOSE: 634.56 mGy.cm FINDINGS: Lung bases: The heart is normal in size and without pericardial effusion. There is left basilar scarr ing/atelectasis. A 3 mm right middle lobe pulmonary nodule on image #32 is unchanged. There is no air space consolidation typical for pneumonia or pleural effusion. Liver: The contrast-enhanced liver is normal in size, contour, and attenuation. There is no intrahepa tic biliary ductal dilatation. The hepatic veins and portal veins are patent. Gallbladder: Surgically absent noting clips in the gallbladder fossa. Spleen: Normal in size and attenuation. Pancreas: Parenchymal calcifications are again seen in the uncinate process with mild fatty infiltrat ion. The pancreas is otherwise normal as imaged. The gland enhances throughout. The duct is normal in caliber and there is no peripancreatic fluid collection Adrenal glands: Small bilateral adrenal adenomas are unchanged. Kidneys: The contrast enhanced kidneys are normal in size and without hydronephrosis. The kidneys enh ance symmetrically. There small nonobstructing left renal calculi measuring up to 3 mm. No right laura l calculi are clearly seen on this contrast-enhanced examination. There is no ureteral stone. Abdominal vasculature: The abdominal aorta is normal in course and caliber noting mild to moderate at herosclerotic calcification. Bowel: There is no bowel obstruction. Submucosal fat deposition is seen throughout the colon. This is a nonspecific finding but is been described in the setting of chronic inflammation. No acute inflamm ation is identified. The appendix is well-visualized and normal. Peritoneum: There is no intraperitoneal free air or abdominal ascites. A navel piercing is noted. Lymphadenopathy: None. Pelvic viscera: The bladder is decompressed and grossly unremarkable. The uterus is normal as visuali zed noting an intrauterine device in place. No adnexal lesion is seen. Skeletal structures: No lytic or blastic lesions are seen. IMPRESSION: 1. Question mild acute pancreatitis. Correlate with clinical and laboratory findings. 2. There is no bowel obstruction. 3. Additional findings as above. ACT 112: Negative or not required by law. Electronically signed by: Austin Hines M.D. 08/18/2023 12:44 PM
[2023-08-18] MEDS ORDERED: PANTOprazole 40 MG in SYRINGE 0 ML IV STA (13:50)
[2023-08-18] MEDS ORDERED: FAMOTIDINE 20 MG in SYRINGE 3 ML IV STA (13:50)
[2023-08-18] MEDS: LACTATED RINGER'S 1,000 ML IV SCH ×2 (14:03→23:13)
[2023-08-18 14:50] LABS: Phosphorus 1.9 mg/dl (2.5-4.9)
--- NOTE | 2023-08-18 14:52 | History & Physical Report ---
Date of Service August 18, 2023 Assessment & Plan (1) Acute pancreatitis: Plan: Epigastric pain with findings on CT. Possible no significant rise in lipase due to acute on chronic nature. Multiple prior triglyceride levels normal. Suspect alcohol induced. IV fluids, clear liquid diet, advance as tolerated Avoid alcohol (2) Gastritis: Plan: Not taken her usual pantoprazole for a few days due to N/V although managed to drink alcohol Pantoprazole 40mg IV BID, famotidine 20mg IV BID, Carafate (3) Cannabis use disorder: Plan: Cessation advised due to possiblity of causing cyclic vomiting syndrome (4) Alcohol intoxication: Plan: No current concern for withdrawal Will utilize AWSS and at risk lorazepam protocol with should be changed if she does start going through withdrawal (5) Nausea & vomiting: Plan: Differential gastritis/pancreatitis/gastroparesis (6) Generalized anxiety disorder with panic attacks: Plan: Continue her routine medications with fluoxetine and clonazepam (7) Portal vein thrombosis: Plan: History of such - continue Eliquis Plan VTE Prophylaxis - Eliquis Diet - clear liquid, advance as tolerated Disposition -observation to med/surg Admission and Anticipated Discharge Date Admission Date: August 18, 2023 History of Present Illness Chief Complaint: Abdominal pain Primary Care Provider: DO Kenrick Yatesivana Pete is a 42 year old female with alcohol use disorder and multiple admissions for pancreatitis who presents to the ER with abdominal pain. CT in the ER concerning for possible mild pancreatitis. She reports increasing abdominal pain over the last 2 days. Unable to keep down anything orally today. Her alcohol level was elevated on admission and she does admit to having a small glass of alcohol last night to help calm her stomach although denies use since May otherwise. She continues to smoke marijuana daily. No change in bowel movements. She reports this feels more like her gastritis than prior episodes of pancreatitis and she has not taken her pantoprazole for the last 2 days. Allergies Allergy/AdvReac Type Severity Reaction Status Date / Time buspirone [From BuSpar] Allergy Severe Unconscious, Verified 08/18/23 12:35 seizures quetiapine [From Seroquel] Allergy Severe Unconscious, Verified 08/18/23 12:35 seizures citalopram [From Celexa] AdvReac Intermediate Vomiting Verified 08/18/23 12:35 morphine AdvReac Intermediate "MAKES ME Verified 08/18/23 12:35 SICK(VOMITING)" vilazodone [From Viibryd] AdvReac Vomiting Verified 08/18/23 12:35 Home Medications Medication Instructions Recorded Confirmed Type multivitamin 1 tab PO QAM 03/18/19 08/18/23 History mecobalamin (vitamin B12) 1,000 1,000 mcg PO QAM 11/10/19 08/18/23 History mcg chewable tablet (B12 Active) apixaban 5 mg tablet (Eliquis) 5 mg PO BID 04/12/21 08/18/23 History thiamine HCl (vitamin B1) 100 mg 300 mg PO QAM 04/17/21 08/18/23 History tablet magnesium citrate 100 mg tablet 100 mg PO QAM 05/23/22 08/18/23 History vqloxw-xmoutgxh-tkowdsy 3 cap PO TID Abdominal Discomfort 09/16/22 08/18/23 Rx 36,000-114,000-180,000 unit 90 days #810 caps capsule,delay rel (Creon) clindamycin phosphate 1 % topical 1 applic topical DAILY PRN Acne 02/17/2307/31 History gel medical marijuana 1 puff inhalation HS PRN Sleep 05/21/23 08/18/23 History melatonin 10 mg capsule 10 mg PO HS PRN Sleep 05/21/23 08/18/23 History TENS unit and electrodes combo pack #1 ea 07/10/23 08/13/23 Rx clonazepam 1 mg tablet 0.5 mg (1/2 x 1 mg) PO BID 30 days 07/22/23 08/18/23 Rx #30 tabs potassium chloride 20 mEq 20 meq PO QAM #30 tabs 08/12/23 08/18/23 Rx tablet,extended release(part/cryst) (Klor-Con M) baclofen 20 mg tablet 20 mg PO BID 08/18/23 08/18/23 History calcium carbonate 600 mg calcium 600 mg PO QAM 08/18/23 08/18/23 History (1,500 mg) tablet cholecalciferol (vitamin D3) 250 250 mcg PO QAM 08/18/23 08/18/23 History mcg (10,000 unit) capsule fluoxetine 40 mg capsule 40 mg PO QAM 08/18/23 08/18/23 History folic acid 1 mg tablet See Rx Instructions .Route 08/18/23 Rx .COMPLEX #90 tabs methocarbamol 750 mg tablet 750 mg PO TID 08/18/23 08/18/23 History ondansetron 4 mg disintegrating 4 mg PO Q6H PRN Nausea And Vomiting 08/18/23 08/18/23 History tablet pantoprazole 40 mg tablet,delayed 40 mg PO BID 08/18/23 08/18/23 History release promethazine 25 mg tablet 25 mg PO Q6H PRN Nausea And 08/18/23 08/18/23 History Vomiting sucralfate 100 mg/mL oral 1,000 mg PO QID PRN stomach pain 08/18/23 08/18/23 History suspension sumatriptan succinate 100 mg tablet 100 mg PO DAILY PRN 08/18/23 08/18/23 History migraine/headache Past Med/Surg History Medical History Fracture of middle phalanx of finger of right hand Fracture of third metacarpal bone of right hand Distal radius fracture, right Fracture of distal phalanx of finger MCL sprain of right knee Toe fracture, left Sleeping difficulty Anxiety and depression Marijuana use Tendinitis of right rotator cuff Pancreatic pseudocyst Acute pancreatitis Alcohol abuse Pancreatitis alcoholic Acne Kidney failure 2009 (RESOLVED/SAW A [employer]ING [employer]ING [employer]) Liver enzyme elevation GERD (gastroesophageal reflux disease) Panic attacks Back pain, chronic Chronic neck pain Insomnia PTSD (post-traumatic stress disorder) Pancreatitis, alcoholic, acute Peptic ulcer disease 2 YEARS AGO DX Acute gallstone pancreatitis Hiatal hernia Migraines Surgical History History of breast biopsy History of esophagogastroduodenoscopy (EGD) 07/02/19- Dr. Gala Willett "LAST APRIL" History of esophagogastroduodenoscopy (EGD) History of cholecystectomy History of tooth extraction History of lumpectomy of right breast BENIGN Family History Father Family history of diabetes mellitus Myocardial infarction Stroke Hypertension Grandfather (Maternal) Family history of diabetes mellitus Grandmother (Maternal) Family history of diabetes mellitus Hypertension Cancer Mother Hypothyroidism Grandfather (Paternal) Cancer Heart problem Grandmother (Paternal) Hypertension Denies family history of Ovarian cancer Prostate cancer Breast cancer Colorectal cancer Social History Smoking Status: Current every day smoker Tobacco Type: Cigarettes Cigarettes Per Day: Half a pack a day.; Second Hand Exposure: Yes; Do You Dip or Chew Tobacco: No; Hx Alcohol Use: Yes Alcohol type: wine Hx Substance Use: Yes Last Used Substance: Days (ago) Last Used Substance Other:: yesterday Substance Use Type Other:: Smokes Dignajuanna Preferred Language: Greenlandic Communication Ability: Effective Visual Impairment: No Limitations Hearing Ability: Normal Clerk Carrier Required: No Beliefs That Will Affect Care: None marital status: Single Current Living Situation: Parent Current Living Situation Comment: lives at home with mom current occupational status: employed current occupation: at [employer] How many Children do You have: 0 Other Information That Helps Us Care for You: No Feels Safe at Home: Yes Safety Concerns: Feels Safe At This Time Childhood Exposure to Second-Hand Smoke: No Diet: regular Diet Comment: regular Dental Care, Regularly: Yes Physical Activity Frequency: Does not Exercise Seatbelt Use: always Sunscreen Use: Yes Do you think of yourself as: straight/heterosexual Assistive Devices: Glasses Review of Systems Review of Systems: All systems reviewed & are unremarkable except as noted in HPI & below Physical Exam Constitutional: WD/WN, vitals as above Eyes: + anicteric sclerae; normal pupil size ENMT: external ear and nose normal, oropharynx normal Neck: trachea midline, no thyromegaly Respiratory: normal respiratory effort, lungs clear to auscultation Cardiovascular: RRR, no murmur, no edema Gastrointestinal (Abdomen): Inspection/Auscultation: abdomen normal to inspection; abdomen not distended Percussion/Palpation: + abdomen tender (generalized but especially over epigastric area), + guarding and abdomen soft; abdomen not rigid Musculoskeletal: no cyanosis or clubbing, extremities motor strength 5/5 Skin: no rashes, warm and dry Neurologic: moves all extremities and awake; not confused Psychiatric: A+Ox3, euthymic affect Genitourinary: no CVA tenderness Results & Data Results & Data Vital Signs (Past 12 Hours) Vital Signs Temp Pulse Pulse Resp BP BP Pulse Ox 08/18/23 13:00 89 18 134/91 96 08/18/23 11:00 89 20 121/79 96 08/18/23 10:38 75 16 96 08/18/23 08:02 98 H 16 123/84 98 08/18/23 06:20 36.5 C 117 H 18 123/85 100 O2 Del Method 08/18/23 13:00 Room Air 08/18/23 11:00 Room Air 08/18/23 10:38 Room Air 08/18/23 08:02 Room Air 08/18/23 06:20 Room Air Laboratory Results Abnormal lab results 08/18/23 08/18/23 Range/Units 06:42 07:29 Plt Count 526 H (130-400) K/uL Potassium 3.1 L (3.5-5.1) mmol/L Anion Gap 15 H (3-11) BUN 24 H (6-23) mg/dl BUN/Creatinine Ratio 36.4 H (10-20) Glucose 112 H (70-99(Fasting)) mg/dl Alkaline Phosphatase 108 H (34-104) U/L Urine Protein Trace H (Negative) Urine Ketones Trace H (Negative) Urine RBC (Auto) 5-10 H (0-4) /hpf U Epithel Cells (Auto) >30 H (0-5) /lpf Ethyl Alcohol mg/dL 100.6 H (<10.0) mg/dl Diagnostic Findings CT SCAN OF THE ABDOMEN AND PELVIS WITH IV CONTRAST CLINICAL HISTORY: Generalized abdominal pain. Nausea. Vomiting. COMPARISON STUDY: Abdominal CT dated 02/17/2023. TECHNIQUE: Following the IV administration of 97 cc of Optiray 320, CT scan of the abdomen and pelvis is performed from the lung bases to the proximal femora. Images are reviewed in the axial, sagittal, and coronal planes. IV contrast was administered without complication. A dose lowering technique was utilized adhering to the principles of ALARA. CT DOSE: 634.56 mGy.cm FINDINGS: Lung bases: The heart is normal in size and without pericardial effusion. There is left basilar scarring/atelectasis. A 3 mm right middle lobe pulmonary nodule on image #32 is unchanged. There is no airspace consolidation typical for pneumonia or pleural effusion. Liver: The contrast-enhanced liver is normal in size, contour, and attenuation. There is no intrahepatic biliary ductal dilatation. The hepatic veins and portal veins are patent. Gallbladder: Surgically absent noting clips in the gallbladder fossa. Spleen: Normal in size and attenuation. Pancreas: Parenchymal calcifications are again seen in the uncinate process with mild fatty infiltration. The pancreas is otherwise normal as imaged. The gland enhances throughout. The duct is normal in caliber and there is no peripancreatic fluid collection Adrenal glands: Small bilateral adrenal adenomas are unchanged. Kidneys: The contrast enhanced kidneys are normal in size and without hydronephrosis. The kidneys enhance symmetrically. There small nonobstructing left renal calculi measuring up to 3 mm. No right renal calculi are clearly seen on this contrast-enhanced examination. There is no ureteral stone. Abdominal vasculature: The abdominal aorta is normal in course and caliber noting mild to moderate atherosclerotic calcification. Bowel: There is no bowel obstruction. Submucosal fat deposition is seen throughout the colon. This is a nonspecific finding but is been described in the setting of chronic inflammation. No acute inflammation is identified. The appendix is well-visualized and normal. Peritoneum: There is no intraperitoneal free air or abdominal ascites. A navel piercing is noted. Lymphadenopathy: None. Pelvic viscera: The bladder is decompressed and grossly unremarkable. The uterus is normal as visualized noting an intrauterine device in place. No adnexal lesion is seen. Skeletal structures: No lytic or blastic lesions are seen. IMPRESSION: 1. Question mild acute pancreatitis. Correlate with clinical and laboratory findings. 2. There is no bowel obstruction. 3. Additional findings as above. Medications Administered ER Medications Given: Normal saline 1000ml bolus Droperidol 2.5 mg IV Potassium 40 meq PO Acetaminophen 1000mg IV Dilaudid 0.5mg IV x2 Code Status & VTE Plan Code Status Full VTE Prophylaxis Plan VTE Prophylaxis will be ordered: Yes PG Care Time/CCT Total # of Minutes Spent Total Time Spent with Patient: Total time spent is greater than 50% in coordination of care (as documented) at patient's floor/unit and/or counseling patient: Coding Level of Care Code 01727 INT INP/OBS CARE 2MIN Diagnoses Acute pancreatitis K85.90 Acute pancreatitis complication: unspecified Pancreatitis type: unspecified pancreatitis type Acute alcoholic gastritis without hemorrhage K29.20 Gastritis type: alcoholic Chronicity: acute Gastritis bleeding: without bleeding Cannabis use disorder F12.90 Alcohol intoxication F10.920 Complication of substance-induced condition: uncomplicated Nausea & vomiting R11.2 Vomiting type: unspecified Generalized anxiety disorder with panic attacks F41.1; F41.0 Portal vein thrombosis I81 (1) Acute pancreatitis Acute pancreatitis complication: unspecified Pancreatitis type: unspecified pancreatitis type Qualified Code(s): K85.90 - Acute pancreatitis without necrosis or infection, unspecified (2) Gastritis Gastritis type: alcoholic Chronicity: acute Gastritis bleeding: without bleeding Qualified Code(s): K29.20 - Alcoholic gastritis without bleeding (4) Alcohol intoxication Complication of substance-induced condition: uncomplicated Qualified Code(s): F10.920 - Alcohol use, unspecified with intoxication, uncomplicated (5) Nausea & vomiting Vomiting type: unspecified Qualified Code(s): R11.2 - Nausea with vomiting, unspecified
[2023-08-18] MEDS ORDERED: LORazepam 1 MG in SYRINGE 0.5 ML IV PRN (16:56)
[2023-08-18] MEDS ORDERED: ONDANSETRON INJ 2 MG/ML 2 ML VIAL IV PRN (16:56)
[2023-08-18] MEDS ORDERED: HYDROmorphone INJ 0.5 MG/0.5 ML SYR IV PRN (17:42)
[2023-08-18] MEDS: HYDROmorphone INJ 0.5 MG/0.5 ML SYR IV PRN ×2 (18:43→21:56)
[2023-08-18] MEDS: PANCREAZE (LIPASE 10,500U) CAP PO SCH (21:13)
[2023-08-18] MEDS: SUCRALFATE 1 GM/10 ML UDC PO SCH (21:13)
[2023-08-18] MEDS: PANTOprazole 40 MG in SYRINGE 0 ML IV SCH (21:13)
[2023-08-18] MEDS: APIXABAN 5 MG TABLET PO SCH (21:14)
[2023-08-18] MEDS: FAMOTIDINE 20 MG in SYRINGE 3 ML IV SCH (21:14)
[2023-08-18] MEDS: METHOCARBAMOL 750 MG TABLET PO SCH (21:15)
[2023-08-18] MEDS: BACLOFEN 20 MG TAB PO SCH (21:15)
[2023-08-18] MEDS: PROMETHAZINE HCL 25 MG TAB PO PRN (21:16)
[2023-08-18] MEDS: clonazePAM 0.5 MG TAB PO SCH (21:17)
[2023-08-19] MEDS: HYDROmorphone INJ 0.5 MG/0.5 ML SYR IV PRN ×7 (01:07→22:53)
[2023-08-19] MEDS: PROMETHAZINE HCL 25 MG TAB PO PRN ×2 (03:35→13:25)
[2023-08-19] MEDS: LACTATED RINGER'S 1,000 ML IV SCH (07:28)
[2023-08-19] MEDS: BACLOFEN 20 MG TAB PO SCH ×2 (08:01→22:52)
[2023-08-19] MEDS: THIAMINE HCL 100 MG TAB PO SCH (08:02)
[2023-08-19] MEDS: FOLIC ACID 1 MG TAB PO SCH (08:02)
[2023-08-19] MEDS: PANCREAZE (LIPASE 10,500U) CAP PO SCH ×3 (08:02→17:10)
[2023-08-19] MEDS: APIXABAN 5 MG TABLET PO SCH ×2 (08:02→22:53)
[2023-08-19] MEDS: PANTOprazole 40 MG in SYRINGE 0 ML IV SCH ×2 (08:02→22:50)
[2023-08-19] MEDS: FLUoxetine HCL 20 MG CAP PO SCH (08:02)
[2023-08-19] MEDS: SUCRALFATE 1 GM/10 ML UDC PO SCH ×4 (08:03→22:51)
[2023-08-19] MEDS: METHOCARBAMOL 750 MG TABLET PO SCH ×3 (08:03→22:52)
[2023-08-19 08:06] LABS: Basophils # (auto) 0.05 K/uL (0.00-0.20); Basophils % (auto) 0.6 %; Eosinophils # (auto) 0.08 K/uL (0.00-0.50); Eosinophils % (auto) 0.9 %; Hematocrit (blood only) 37.7 % (37.0-47.0); Hemoglobin 12.5 g/dl (12.0-16.0); Immature Granulocytes # (auto) 0.02 K/uL (0.01-0.20); Immature Granulocytes % (auto) 0.2 %; Lymphocytes # (auto) 2.18 K/uL (1.20-3.40); Lymphocytes % (auto) 24.6 %; Mean Corpuscular Hemoglobin 29.6 pg (25.0-34.0); Mean Corpuscular Hgb Conc 33.2 g/dL (32.0-36.0); Mean Corpuscular Volume 89.3 fL (80.0-100.0); Mean Platelet Volume 9.7 fL (9.4-12.4); Monocytes # (auto) 0.76 K/uL (0.11-0.59); Monocytes % (auto) 8.6 %; Neutrophils # (auto) 5.78 K/uL (1.40-6.50); Neutrophils % (auto) 65.1 %; Platelet Count 402 K/uL (130-400); RDW Coefficient of Variation 14.3 % (11.5-14.5); RDW Standard Deviation 46.5 fL (36.4-46.3); Red Blood Count 4.22 M/uL (4.20-5.40); White Blood Count 8.87 K/ul (4.8-10.8)
[2023-08-19] MEDS: clonazePAM 0.5 MG TAB PO SCH ×2 (08:06→22:52)
[2023-08-19] MEDS: FAMOTIDINE 20 MG in SYRINGE 3 ML IV SCH ×2 (08:06→22:50)
[2023-08-19 09:05] LABS: Albumin Globulin Ratio 1.6 (0.9-2); Albumin Level 3.6 gm/dl (3.4-5.0); BUN Creatinine Ratio 9.4 (10-20); Bilirubin,Total 0.9 mg/dl (0.2-1.0); Calcium 8.4 mg/dl (8.6-10.3); Creatinine Clr Calc Pharmacy 113.2 ml/min; Est GFR (African American) 134.8 ml/min; Est GFR (Non-African American) 116.3 ml/min; Globulin 2.3 gm/dl (2.5-4.0); Potassium 3.3 mmol/L (3.5-5.1); Total Protein 5.9 gm/dl (6.0-8.3)
[2023-08-19] MEDS ORDERED: POTASSIUM CHLORIDE 20 MEQ in LACTATED RINGER'S 1,000 ML IV SCH (09:28)
[2023-08-19] MEDS: NICOTINE 21 MG/24 HR TDSY TD SCH (11:23)
[2023-08-19] MEDS: DICLOFENAC SOD 1% GEL 100 GM TUBE EXT SCH ×3 (13:21→22:51)
[2023-08-19] MEDS: GABAPENTIN 100 MG CAP PO SCH ×2 (13:21→22:53)
[2023-08-19] MEDS: ACETAMINOPHEN 500 MG TAB PO PRN (13:24)
--- NOTE | 2023-08-19 20:43 | Hospitalist Progress Note ---
Date of Service August 19, 2023 Assessment & Plan (1) Acute pancreatitis: Plan: acute on chronic acute - improving but would not advance to low fat diet today; full liquids is reasonable cont LR hydration pain meds prn cont creon for chronic pancreatitis (2) Gastritis: Plan: Could be contributing to her abdominal pain Continue pantoprazole 40mg IV BID, famotidine 20mg IV BID, Carafate (3) Cannabis use disorder: Plan: Cessation advised by admitting MD due to possibility of causing cyclic vomiting syndrome (4) Alcohol intoxication: Plan: No signs of etoh withdrawal today but continue AWSS and at risk lorazepam protocol for symptoms, if needed cont thiamine supplementation (5) Nausea & vomiting: Plan: Could be 1 or more of the following --> gastritis/pancreatitis/gastroparesis symptoms are improved allow full liquids diet anti-emetics as needed (6) Generalized anxiety disorder with panic attacks: Plan: Continue her routine medications with fluoxetine and clonazepam (7) Portal vein thrombosis: Plan: History of such - continue Eliquis (8) Degeneration of thoracolumbar intervertebral disc: Plan: follows with orthopedics, Dr Santana pain meds prn (9) Other cervical disc degeneration at C5-C6 level: Plan: pain meds prn (10) Chronic pancreatitis: Plan: cont creon (11) Hypokalemia: Plan: replace repeat BMP am mag level normal on 08/18 Admission and Anticipated Discharge Date Admission Date: August 18, 2023 Subjective pt c/o both abdominal pain - central - along with nausea abd pain is worse than the nausea fortunately no emesis since admission despite the pain she asks for a turkey sandwich and reports that the clear liquids does NOT make the abd pain worse has had stool today - no melena, no BRBPR denies fevers Review of Systems Review of Systems: gen - no fevers cv - no chest pain pulm - no dyspnea or cough GI - no vomiting Physical Exam Physical Exam: gen - NAD, no signs of withdrawal from etoh neck - no JVD mouth - MMM heart - RRR, s1 s2, no murmur lungs - CTA b/l abd - soft NT ND BS+; no HSM ext - no edema, pulses 2+ b/l Results & Data Results & Data Vital Signs (Past 12 Hours) Vital Signs Temp Pulse Resp BP Pulse Ox O2 Del Method 08/19/23 16:07 36.8 C 86 16 133/89 99 Room Air Laboratory Results Laboratory Results 08/18/23 08/19/23 06:42 07:51 WBC 8.87 RBC 4.22 Hgb 12.5 Hct 37.7 MCV 89.3 MCH 29.6 MCHC 33.2 RDW Std Deviation 46.5 H RDW Coeff of Jessica 14.3 Plt Count 402 H MPV 9.7 Immature Gran % (Auto) 0.2 Neut % (Auto) 65.1 Lymph % (Auto) 24.6 [place] % (Auto) 8.6 Eos % (Auto) 0.9 Baso % (Auto) 0.6 Neut # (Auto) 5.78 Lymph # (Auto) 2.18 [place] # (Auto) 0.76 H Eos # (Auto) 0.08 Baso # (Auto) 0.05 Immature Gran # (Auto) 0.02 Sodium 140 Potassium 3.3 L Chloride 105 Carbon Dioxide 31 Anion Gap 4 BUN 5 L Creatinine 0.53 L Est Cr Clr Drug Dosing 113.2 Est GFR ( Amer) 134.8 Est GFR (Non-Af Amer) 116.3 BUN/Creatinine Ratio 9.4 L Glucose 96 Calcium 8.4 L Phosphorus 1.9 L Magnesium 2.0 Total Bilirubin 0.9 D AST 27 ALT 16 Alkaline Phosphatase 120 H Total Protein 5.9 L Albumin 3.6 Globulin 2.3 L Albumin/Globulin Ratio 1.6 Lipase 14 PG Care Time/CCT Total # of Minutes Spent Total Time Spent with Patient: Total time spent is greater than 50% in coordination of care (as documented) at patient's floor/unit and/or counseling patient: Coding Level of Care Code 28442 SUB INP/OBS CARE MIN Diagnoses Acute pancreatitis K85.90 Acute pancreatitis complication: unspecified Pancreatitis type: unspecified pancreatitis type Acute alcoholic gastritis without hemorrhage K29.20 Chronicity: acute Gastritis bleeding: without bleeding Gastritis type: alcoholic Cannabis use disorder F12.90 Alcohol intoxication F10.920 Complication of substance-induced condition: uncomplicated Nausea & vomiting R11.2 Vomiting type: unspecified Generalized anxiety disorder with panic attacks F41.1; F41.0 Portal vein thrombosis I81 Degeneration of thoracolumbar intervertebral disc M51.35 Other cervical disc degeneration at C5-C6 level M50.322 Chronic pancreatitis K86.1 Hypokalemia E87.6 (1) Acute pancreatitis Acute pancreatitis complication: unspecified Pancreatitis type: unspecified pancreatitis type Qualified Code(s): K85.90 - Acute pancreatitis without necrosis or infection, unspecified (2) Gastritis Chronicity: acute Gastritis bleeding: without bleeding Gastritis type: alcoholic Qualified Code(s): K29.20 - Alcoholic gastritis without bleeding (4) Alcohol intoxication Complication of substance-induced condition: uncomplicated Qualified Code(s): F10.920 - Alcohol use, unspecified with intoxication, uncomplicated (5) Nausea & vomiting Vomiting type: unspecified Qualified Code(s): R11.2 - Nausea with vomiting, unspecified
[2023-08-20] MEDS: PROMETHAZINE HCL 25 MG TAB PO PRN ×3 (00:23→23:03)
[2023-08-20] MEDS: HYDROmorphone INJ 0.5 MG/0.5 ML SYR IV PRN ×6 (05:13→21:25)
[2023-08-20 06:39] LABS: Hematocrit (blood only) 39.1 % (37.0-47.0); Mean Corpuscular Hemoglobin 29.7 pg (25.0-34.0); Mean Corpuscular Hgb Conc 33.2 g/dL (32.0-36.0); Mean Corpuscular Volume 89.3 fL (80.0-100.0); Mean Platelet Volume 9.9 fL (9.4-12.4); Platelet Count 403 K/uL (130-400); RDW Coefficient of Variation 14.1 % (11.5-14.5); RDW Standard Deviation 45.5 fL (36.4-46.3); Red Blood Count 4.38 M/uL (4.20-5.40)
[2023-08-20 07:07] LABS: BUN Creatinine Ratio 9.1 (10-20); Calcium 8.7 mg/dl (8.6-10.3); Creatinine Clr Calc Pharmacy 109.1 ml/min; Est GFR (African American) 133.1 ml/min; Est GFR (Non-African American) 114.9 ml/min; Potassium 3.1 mmol/L (3.5-5.1)
[2023-08-20] MEDS: PANCREAZE (LIPASE 10,500U) CAP PO SCH ×3 (08:25→16:34)
[2023-08-20] MEDS: METHOCARBAMOL 750 MG TABLET PO SCH ×3 (08:26→21:22)
[2023-08-20] MEDS: BACLOFEN 20 MG TAB PO SCH ×2 (08:26→21:24)
[2023-08-20] MEDS: FOLIC ACID 1 MG TAB PO SCH (08:27)
[2023-08-20] MEDS: GABAPENTIN 100 MG CAP PO SCH ×3 (08:27→21:24)
[2023-08-20] MEDS: THIAMINE HCL 100 MG TAB PO SCH (08:27)
[2023-08-20] MEDS: FLUoxetine HCL 20 MG CAP PO SCH (08:27)
[2023-08-20] MEDS: APIXABAN 5 MG TABLET PO SCH ×2 (08:27→21:22)
[2023-08-20] MEDS: DICLOFENAC SOD 1% GEL 100 GM TUBE EXT SCH ×4 (08:28→21:24)
[2023-08-20] MEDS: SUCRALFATE 1 GM/10 ML UDC PO SCH ×4 (08:28→21:19)
[2023-08-20] MEDS: PANTOprazole 40 MG in SYRINGE 0 ML IV SCH ×2 (08:28→21:25)
[2023-08-20] MEDS: NICOTINE 21 MG/24 HR TDSY TD SCH (08:28)
[2023-08-20] MEDS: FAMOTIDINE 20 MG in SYRINGE 3 ML IV SCH ×2 (08:31→21:25)
[2023-08-20] MEDS: clonazePAM 0.5 MG TAB PO SCH ×2 (08:31→21:21)
[2023-08-20] MEDS: ACETAMINOPHEN 500 MG TAB PO PRN ×2 (09:54→16:33)
[2023-08-20] MEDS: POTASSIUM CHLORIDE CRTAB 20 MEQ TABCR PO SCH ×3 (09:56→21:23)
[2023-08-20] MEDS ORDERED: ALBUTEROL HFA 8 GM INHALER INH ONE (17:32)
--- NOTE | 2023-08-20 19:19 | XRay Report ---
TWO VIEW CHEST CLINICAL HISTORY: Dyspnea. FINDINGS: PA and lateral chest radiographs are compared to study dated 06/26/2023 and correlated with chest CT dated 07/03/2023. The cardiomediastinal silhouette is unremarkable. There is elevation of the left hemidiaphragm with left basilar scarring/atelectasis. This is similar to previous. The lungs an d pleural spaces are otherwise clear. An accessory azygos fissure is incidentally noted. There is no pneumothorax. The bony thorax appears intact. Cholecystectomy clips are noted in the right upper quad rant. IMPRESSION: No active disease in the chest. ACT 112: Negative or not required by law. Electronically signed by: Austin Hines M.D. 08/20/2023 7:18 PM
--- NOTE | 2023-08-20 21:08 | Hospitalist Progress Note ---
Date of Service August 20, 2023 Assessment & Plan (1) Acute pancreatitis: Plan: acute on chronic acute - improving/resolving; no tenderness; no N/V; can advance to low fat diet stop IV Fluids pain meds prn cont creon for chronic pancreatitis (2) Gastritis: Plan: Could be contributing to her abdominal pain Continue pantoprazole 40mg IV BID, famotidine 20mg IV BID, Carafate plan to convert to PO tomorrow (3) Cannabis use disorder: Plan: Cessation advised by admitting MD due to possibility of causing cyclic vomiting syndrome (4) Alcohol intoxication: Plan: No signs of etoh withdrawal today but continue AWSS and at risk lorazepam protocol for symptoms, if needed cont thiamine supplementation (5) Nausea & vomiting: Plan: resolved Could be 1 or more of the following --> gastritis/pancreatitis/gastroparesis symptoms are improved allow low fat diet anti-emetics as needed (6) Generalized anxiety disorder with panic attacks: Plan: Continue her routine medications with fluoxetine and clonazepam (7) Portal vein thrombosis: Plan: History of such - continue Eliquis 5mg BID (8) Degeneration of thoracolumbar intervertebral disc: Plan: follows with orthopedics, Dr Santana pain meds prn (9) Other cervical disc degeneration at C5-C6 level: Plan: pain meds prn added gabapentin 100mg TID ideally would do a short-course of PO steroids but with her gastritis and other GI issues will hold off for now already on large doses of muscle relaxers poor candidate for NSAIDs would send back to pain management at d/c for consideration of epidural steroid injection at C6 on left (10) Chronic pancreatitis: Plan: cont creon (11) Hypokalemia: Plan: replace - K-dur 40meq TID x 3 doses repeat BMP am (12) Chest pain, pleuritic: Plan: symptoms not c/w pericarditis EKG w/o ischemic changes not musculoskeletal esophageal in etiology? will follow cont acid reducers if symptoms persist consider echo, etc (13) Dyspnea: Plan: start with cxr, 2-view, and go from there albuterol 2 puffs now, then qid thereafter - given prior h/o asthma as well as smoking likely has bronchial inflammation Plan progressing home tomorrow? home 08/22? Admission and Anticipated Discharge Date Admission Date: August 20, 2023 Subjective c/o dyspnea and a pleuritic type central pain with deep breaths NOT worse when laying down in bed denies significant cough tolerating diet no vomiting moving bowels although stools are small still requiring dilaudid IV frequently Review of Systems Review of Systems: gen - no fevers or chills cv - see HPI; no orthopnea; no PND neck - c/o ongoing pain L side of neck with radiation of pain down the L arm - unchanged pulm - no cough; she states she had asthma as a child Physical Exam Physical Exam: gen - NAD, no signs of withdrawal from etoh neck - no JVD mouth - MMM chest - no reproducible pain to palpation along sternal border heart - RRR, s1 s2, no murmur; no rub lungs - CTA b/l; perhaps scant wheeze end-exp bases abd - soft NT ND BS+; no HSM ext - no edema, pulses 2+ b/l psych - a/o x 3 neuro - strength 5/5 x 4 exts Results & Data Results & Data Vital Signs (Past 12 Hours) Vital Signs Temp Pulse Resp BP Pulse Ox O2 Del Method 08/20/23 15:07 36.7 C 91 H 15 129/86 95 Room Air Laboratory Results Laboratory Results 08/20/23 06:01 WBC 9.10 RBC 4.38 Hgb 13.0 Hct 39.1 MCV 89.3 MCH 29.7 MCHC 33.2 RDW Std Deviation 45.5 RDW Coeff of Jessica 14.1 Plt Count 403 H MPV 9.9 Sodium 139 Potassium 3.1 L Chloride 102 Carbon Dioxide 31 Anion Gap 6 BUN 5 L Creatinine 0.55 L Est Cr Clr Drug Dosing 109.1 Est GFR ( Amer) 133.1 Est GFR (Non-Af Amer) 114.9 BUN/Creatinine Ratio 9.1 L Glucose 120 H Calcium 8.7 Magnesium C-Reactive Protein Diagnostic Findings EKG - my reading - NSR, no ST changes Chest X-Ray 08/20/23 17:26 TWO VIEW CHEST CLINICAL HISTORY: Dyspnea. FINDINGS: PA and lateral chest radiographs are compared to study dated 06/26/2023 and correlated with chest CT dated 07/03/2023. The cardiomediastinal silhouette is unremarkable. There is elevation of the left hemidiaphragm with left basilar scarring/atelectasis. This is similar to previous. The lungs and pleural spaces are otherwise clear. An accessory azygos fissure is incidentally noted. There is no pneumothorax. The bony thorax appears intact. Cholecystectomy clips are noted in the right upper quadrant. IMPRESSION: No active disease in the chest. ACT 112: Negative or not required by law. Electronically signed by: Austin Hines M.D. 08/20/2023 7:18 PM PG Care Time/CCT Total # of Minutes Spent Total Time Spent with Patient: Total time spent is greater than 50% in coordination of care (as documented) at patient's floor/unit and/or counseling patient: Coding Level of Care Code 45649 SUB INP/OBS CARE 3/50MIN Diagnoses Acute pancreatitis K85.90 Acute pancreatitis complication: unspecified Pancreatitis type: unspecified pancreatitis type Acute alcoholic gastritis without hemorrhage K29.20 Chronicity: acute Gastritis bleeding: without bleeding Gastritis type: alcoholic Cannabis use disorder F12.90 Alcohol intoxication F10.920 Complication of substance-induced condition: uncomplicated Nausea & vomiting R11.2 Vomiting type: unspecified Generalized anxiety disorder with panic attacks F41.1; F41.0 Portal vein thrombosis I81 Degeneration of thoracolumbar intervertebral disc M51.35 Other cervical disc degeneration at C5-C6 level M50.322 Chronic pancreatitis K86.1 Hypokalemia E87.6 Chest pain, pleuritic R07.81 Dyspnea R06.00 (1) Acute pancreatitis Acute pancreatitis complication: unspecified Pancreatitis type: unspecified pancreatitis type Qualified Code(s): K85.90 - Acute pancreatitis without necrosis or infection, unspecified (2) Gastritis Chronicity: acute Gastritis bleeding: without bleeding Gastritis type: alcoholic Qualified Code(s): K29.20 - Alcoholic gastritis without bleeding (4) Alcohol intoxication Complication of substance-induced condition: uncomplicated Qualified Code(s): F10.920 - Alcohol use, unspecified with intoxication, uncomplicated (5) Nausea & vomiting Vomiting type: unspecified Qualified Code(s): R11.2 - Nausea with vomiting, unspecified
[2023-08-20] MEDS: oxyCODONE HCL IR 5 MG TAB (IMMEDIATE RELEASE) PO PRN (23:02)
[2023-08-21] MEDS: oxyCODONE HCL IR 5 MG TAB (IMMEDIATE RELEASE) PO PRN ×4 (05:56→18:19)
[2023-08-21] MEDS: PROMETHAZINE HCL 25 MG TAB PO PRN ×2 (05:57→12:48)
[2023-08-21] MEDS: ALBUTEROL HFA 8 GM INHALER INH SCH ×4 (07:49→19:49)
[2023-08-21] MEDS: PANTOprazole 40 MG in SYRINGE 0 ML IV SCH (08:01)
[2023-08-21] MEDS: BACLOFEN 20 MG TAB PO SCH ×2 (08:02→20:05)
[2023-08-21] MEDS: METHOCARBAMOL 750 MG TABLET PO SCH ×3 (08:02→20:05)
[2023-08-21] MEDS: POTASSIUM CHLORIDE CRTAB 20 MEQ TABCR PO SCH (08:02)
[2023-08-21] MEDS: THIAMINE HCL 100 MG TAB PO SCH (08:02)
[2023-08-21] MEDS: NICOTINE 21 MG/24 HR TDSY TD SCH (08:02)
[2023-08-21] MEDS: APIXABAN 5 MG TABLET PO SCH ×2 (08:02→20:06)
[2023-08-21] MEDS: SUCRALFATE 1 GM/10 ML UDC PO SCH ×4 (08:02→20:03)
[2023-08-21] MEDS: GABAPENTIN 100 MG CAP PO SCH ×3 (08:02→20:03)
[2023-08-21] MEDS: PANCREAZE (LIPASE 10,500U) CAP PO SCH ×3 (08:02→18:16)
[2023-08-21] MEDS: FLUoxetine HCL 20 MG CAP PO SCH (08:02)
[2023-08-21] MEDS: FOLIC ACID 1 MG TAB PO SCH (08:02)
[2023-08-21] MEDS: DICLOFENAC SOD 1% GEL 100 GM TUBE EXT SCH ×5 (08:03→20:05)
[2023-08-21] MEDS: clonazePAM 0.5 MG TAB PO SCH ×2 (08:14→20:09)
[2023-08-21] MEDS: FAMOTIDINE 20 MG in SYRINGE 3 ML IV SCH (08:14)
[2023-08-21] MEDS: HYDROmorphone INJ 0.5 MG/0.5 ML SYR IV PRN ×4 (08:15→20:23)
[2023-08-21] MEDS: ACETAMINOPHEN 500 MG TAB PO PRN (10:12)
--- NOTE | 2023-08-21 12:51 | Electrocardiogram Report ---
Test Reason : Blood Pressure : / mmHG Vent. Rate : 096 BPM Atrial Rate : 096 BPM P-R Int : 138 ms QRS Dur : 082 ms QT Int : 342 ms P-R-T Axes : 064 026 043 degrees QTc Int : 432 ms Normal sinus rhythm Normal ECG When compared with ECG of 05-AUG-2023 01:18, No significant change was found Confirmed by Damon Menendez ([id number]) on 08/21/2023 12:50:27 PM Referred By: REFERRED SELF Confirmed By:Damon Menendez
[2023-08-21 13:17] LABS: C Reactive Protein 0.76 mg/dl (0-0.5); Calcium 9.2 mg/dl (8.6-10.3); Creatinine Clr Calc Pharmacy 89.6 ml/min; Est GFR (African American) 124.8 ml/min; Est GFR (Non-African American) 107.7 ml/min; Magnesium 1.8 mg/dl (1.7-2.4); Potassium 4.3 mmol/L (3.5-5.1)
--- NOTE | 2023-08-21 14:01 | Hospitalist Progress Note ---
Date of Service August 21, 2023 Assessment & Plan (1) Acute pancreatitis: Plan: acute on chronic acute - had been improving/resolving and abd pain/tenderness had resolved however, now having nausea and pain again with low fat diet continues to require frequent narcotics - both PO and IV if pain worsens/persists would need to downgrade diet and resume IV fluids checked KUB x-ray -- no fecal impaction or constipation prominent colonic gas -- mild, low-grade colonic ileus? follow for now cont creon for chronic pancreatitis repeat a lipase and LFTs in am (2) Gastritis: Plan: Could be contributing to her abdominal pain but doubt given the amount of acid reducers she is on (and also had been receiving IV pepcid) Continue pantoprazole 40mg BID and Carafate QID (3) Cannabis use disorder: Plan: Cessation advised by admitting MD due to possibility of causing cyclic vomiting syndrome (4) Alcohol intoxication: Plan: No signs of etoh withdrawal today but continue AWSS and at risk lorazepam protocol for symptoms, if needed cont thiamine supplementation did have elevated etoh level (100) at time of this admission (5) Nausea & vomiting: Plan: resolved now with nausea again Could be 1 or more of the following --> gastritis/pancreatitis/gastroparesis if symptoms worsen/persist then downgrade diet x-rays today of abdomen w/o obstruction (6) Generalized anxiety disorder with panic attacks: Plan: Continue her routine medications with fluoxetine and clonazepam (7) Portal vein thrombosis: Plan: History of such - continue Eliquis 5mg BID (8) Degeneration of thoracolumbar intervertebral disc: Plan: follows with orthopedics, Dr Santana pain meds prn (9) Other cervical disc degeneration at C5-C6 level: Plan: pain meds prn added gabapentin 100mg TID - started 08/19/23 plan to increase to 300mg TID starting in am tomorrow ideally would do a short-course of PO steroids but with her gastritis and other GI issues will hold off for now already on large doses of muscle relaxers poor candidate for NSAIDs would send back to pain management at d/c for consideration of epidural steroid injection at C6 on left (10) Chronic pancreatitis: Plan: cont creon calcifications of pancreas on CT a/p consistent with chronic pancreatitis (11) Hypokalemia: Plan: replaced resolved d/c K supplementation (12) Chest pain, pleuritic: Plan: symptoms not c/w pericarditis EKG w/o ischemic changes cxr negative not musculoskeletal esophageal in etiology? doubt given how much acid reduction she is on check echo to be complete if echo is negative and symptoms persist consider CTA chest (13) Dyspnea: Plan: suspect due to obstructive disease as her symptoms are improved with albuterol see #12 above Plan increase oxycodone to 10mg for neck/abdominal pain limit dilaudid usage if possible needs urine HCG Admission and Anticipated Discharge Date Admission Date: August 20, 2023 Subjective ate small amount of breakfast - had no problems with such ate Thanksgiving meal at lunch - ate large amount of food - felt sick and had mild abd pain following lunch she had a small stool this am she continues to require frequent dilaudid IV no fevers no hematemesis or coffee-ground emesis or melena stool continues with neck pain and frequent episodes of sharp, shooting pain encompassing the entire L arm down to the hand some pins/needles feeling has tried albuterol for her dyspnea/chest symptoms and albuterol IS helping [id number] her chest continues to feel tight Review of Systems Review of Systems: gen - no fevers or chills cv - no orthopnea pulm - no sputum GI - no vomiting today - just nausea - no LUTS Physical Exam Physical Exam: gen - NAD, no signs of withdrawal from etoh, comfortable-appearing neck - no JVD mouth - MMM heart - RRR, s1 s2, no murmur; no rub lungs - CTA b/l; good airation today; no rales; no wheezing; no increased work of breathing abd - soft NT ND BS+; no HSM ext - no edema, pulses 2+ b/l psych - a/o x 3 Results & Data Results & Data Vital Signs (Past 12 Hours) Vital Signs Temp Pulse Resp BP Pulse Ox O2 Del Method 08/21/23 10:49 16 98 Room Air 08/21/23 08:11 36.7 C 102 H 16 130/97 97 Room Air 08/21/23 07:53 98 H 16 97 Room Air Laboratory Results Laboratory Results - last 24 hr 08/21/23 12:41 Sodium 139 Potassium 4.3 D Chloride 103 Carbon Dioxide 30 Anion Gap 6 BUN 6 Creatinine 0.67 Est Cr Clr Drug Dosing 89.6 Est GFR ( Amer) 124.8 Est GFR (Non-Af Amer) 107.7 BUN/Creatinine Ratio 9.0 L Glucose 134 H Calcium 9.2 Magnesium 1.8 C-Reactive Protein 0.76 H Diagnostic Findings KUB X-Ray 08/21/23 13:52 XR KUB/Abdomen 1 view CLINICAL HISTORY: abd pain, constipation? TECHNIQUE: 1 view of the abdomen was obtained. Comparison: Comparison is made to abdomen radiograph 08/05/2023 FINDINGS: Lung bases are unremarkable. The osseous structures are grossly unremarkable. The bowel gas pattern is nonobstructive. Prominent colonic gas is seen. No significant stool burden is seen and no fecal impaction. IUD is incidentally noted. IMPRESSION: Prominent colonic gas with no evidence of fecal impaction or significant stool burden. ACT 112: Negative or not required by law. Electronically signed by: Armand Cohen M.D. 08/21/2023 2:19 PM PG Care Time/CCT Total # of Minutes Spent Total Time Spent with Patient: Total time spent is greater than 50% in coordination of care (as documented) at patient's floor/unit and/or counseling patient: Coding Level of Care Code 88164 SUB INP/OBS CARE 3/50MIN Diagnoses Acute pancreatitis K85.90 Acute pancreatitis complication: unspecified Pancreatitis type: unspecified pancreatitis type Acute alcoholic gastritis without hemorrhage K29.20 Chronicity: acute Gastritis bleeding: without bleeding Gastritis type: alcoholic Cannabis use disorder F12.90 Alcohol intoxication F10.920 Complication of substance-induced condition: uncomplicated Nausea & vomiting R11.2 Vomiting type: unspecified Generalized anxiety disorder with panic attacks F41.1; F41.0 Portal vein thrombosis I81 Degeneration of thoracolumbar intervertebral disc M51.35 Other cervical disc degeneration at C5-C6 level M50.322 Chronic pancreatitis K86.1 Hypokalemia E87.6 Chest pain, pleuritic R07.81 Dyspnea R06.00 (1) Acute pancreatitis Acute pancreatitis complication: unspecified Pancreatitis type: unspecified pancreatitis type Qualified Code(s): K85.90 - Acute pancreatitis without necrosis or infection, unspecified (2) Gastritis Chronicity: acute Gastritis bleeding: without bleeding Gastritis type: alcoholic Qualified Code(s): K29.20 - Alcoholic gastritis without bleeding (4) Alcohol intoxication Complication of substance-induced condition: uncomplicated Qualified Code(s): F10.920 - Alcohol use, unspecified with intoxication, uncomplicated (5) Nausea & vomiting Vomiting type: unspecified Qualified Code(s): R11.2 - Nausea with vomiting, unspecified
--- NOTE | 2023-08-21 14:21 | XRay Report ---
XR KUB/Abdomen 1 view CLINICAL HISTORY: abd pain, constipation? TECHNIQUE: 1 view of the abdomen was obtained. Comparison: Comparison is made to abdomen radiograph 08/05/2023 FINDINGS: Lung bases are unremarkable. The osseous structures are grossly unremarkable. The bowel gas pattern i s nonobstructive. Prominent colonic gas is seen. No significant stool burden is seen and no fecal imp action. IUD is incidentally noted. IMPRESSION: Prominent colonic gas with no evidence of fecal impaction or significant stool burden. ACT 112: Negative or not required by law. Electronically signed by: Armand Cohen M.D. 08/21/2023 2:19 PM
[2023-08-21] MEDS: PANTOprazole 40 MG TAB PO SCH (20:04)
[2023-08-22] MEDS: oxyCODONE HCL IR 5 MG TAB (IMMEDIATE RELEASE) PO PRN ×5 (01:43→18:39)
[2023-08-22] MEDS: PROMETHAZINE HCL 25 MG TAB PO PRN ×2 (01:43→16:20)
[2023-08-22] MEDS: HYDROmorphone INJ 0.5 MG/0.5 ML SYR IV PRN ×3 (02:38→11:58)
[2023-08-22 06:43] LABS: Basophils # (auto) 0.07 K/uL (0.00-0.20); Basophils % (auto) 0.5 %; Eosinophils # (auto) 0.19 K/uL (0.00-0.50); Eosinophils % (auto) 1.5 %; Hematocrit (blood only) 38.2 % (37.0-47.0); Hemoglobin 12.5 g/dl (12.0-16.0); Immature Granulocytes # (auto) 0.05 K/uL (0.01-0.20); Immature Granulocytes % (auto) 0.4 %; Lymphocytes # (auto) 3.38 K/uL (1.20-3.40); Mean Corpuscular Hemoglobin 29.6 pg (25.0-34.0); Mean Corpuscular Hgb Conc 32.7 g/dL (32.0-36.0); Mean Corpuscular Volume 90.3 fL (80.0-100.0); Mean Platelet Volume 9.7 fL (9.4-12.4); Monocytes # (auto) 0.94 K/uL (0.11-0.59); Monocytes % (auto) 7.2 %; Neutrophils # (auto) 8.36 K/uL (1.40-6.50); Neutrophils % (auto) 64.4 %; Platelet Count 387 K/uL (130-400); RDW Coefficient of Variation 14.4 % (11.5-14.5); RDW Standard Deviation 47.7 fL (36.4-46.3); Red Blood Count 4.23 M/uL (4.20-5.40); White Blood Count 12.99 K/ul (4.8-10.8)
[2023-08-22 07:09] LABS: Albumin Globulin Ratio 1.5 (0.9-2); Albumin Level 3.7 gm/dl (3.4-5.0); BUN Creatinine Ratio 13.7 (10-20); Bilirubin,Total 0.4 mg/dl (0.2-1.0); Calcium 9.2 mg/dl (8.6-10.3); Creatinine Clr Calc Pharmacy 117.7 ml/min; Est GFR (African American) 136.5 ml/min; Est GFR (Non-African American) 117.8 ml/min; Globulin 2.4 gm/dl (2.5-4.0); Potassium 4.2 mmol/L (3.5-5.1); Total Protein 6.1 gm/dl (6.0-8.3)
[2023-08-22 07:15] LABS: Troponin I High Sensitivity 2.7 pg/ml (0-14)
[2023-08-22] MEDS: ALBUTEROL HFA 8 GM INHALER INH SCH ×4 (07:31→19:54)
[2023-08-22] MEDS: PANTOprazole 40 MG TAB PO SCH ×2 (07:40→20:25)
[2023-08-22] MEDS: FOLIC ACID 1 MG TAB PO SCH (07:40)
[2023-08-22] MEDS: NICOTINE 21 MG/24 HR TDSY TD SCH (07:40)
[2023-08-22] MEDS: METHOCARBAMOL 750 MG TABLET PO SCH ×3 (07:40→20:24)
[2023-08-22] MEDS: BACLOFEN 20 MG TAB PO SCH ×2 (07:40→20:24)
[2023-08-22] MEDS: APIXABAN 5 MG TABLET PO SCH ×2 (07:40→20:25)
[2023-08-22] MEDS: FLUoxetine HCL 20 MG CAP PO SCH (07:40)
[2023-08-22] MEDS: DICLOFENAC SOD 1% GEL 100 GM TUBE EXT SCH ×4 (07:41→20:24)
[2023-08-22] MEDS: PANCREAZE (LIPASE 10,500U) CAP PO SCH ×3 (07:41→16:54)
[2023-08-22] MEDS: THIAMINE HCL 100 MG TAB PO SCH (07:41)
[2023-08-22] MEDS: clonazePAM 0.5 MG TAB PO SCH ×2 (07:41→20:24)
[2023-08-22] MEDS: SUCRALFATE 1 GM/10 ML UDC PO SCH ×4 (07:42→20:26)
[2023-08-22] MEDS: GABAPENTIN 300 MG CAP PO SCH ×3 (08:52→20:26)
[2023-08-22] MEDS: ACETAMINOPHEN 500 MG TAB PO PRN ×2 (09:01→17:03)
[2023-08-22 09:22] LABS: Pregnancy Test, Urine Negative (Negative)
--- NOTE | 2023-08-22 12:14 | XCELERA ---
[id number]
--- NOTE | 2023-08-22 19:15 | Hospitalist Progress Note ---
Date of Service August 22, 2023 Assessment & Plan (1) Acute pancreatitis: Plan: acute on chronic acute - symptoms largely resolved had good day today with no pain, tolerating diet, no vomiting if pain were to recur would need to downgrade diet and resume IV fluids cont creon for chronic pancreatitis of note - she denies chronic, daily pain from her chronic pancreatitis she denies chronic diarrhea/steatorrhea stop IV dilaudid just use oxycodone PO prn anti-emetics prn (2) Gastritis: Plan: 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 Continue pantoprazole 40mg BID and Carafate QID (3) Cannabis use disorder: Plan: Cessation advised by admitting MD due to possibility of causing cyclic vomiting syndrome (4) Alcohol intoxication: Plan: only potential sign of etoh withdrawal is mild tachycardic at times otherwise, no tremors, diaphoresis, chills, altered MS, etc cont thiamine supplementation did have elevated etoh level (100) at time of this admission (5) Nausea & vomiting: Plan: no vomiting - but remains with intermittent nausea -- suspect due to gastroparesis (not pancreatitis) recent x-rays today of abdomen w/o obstruction cont phenergan prn cont zofran prn (6) Generalized anxiety disorder with panic attacks: Plan: Continue her routine medications with fluoxetine and clonazepam (7) Portal vein thrombosis: Plan: History of such - continue Eliquis 5mg BID (8) Degeneration of thoracolumbar intervertebral disc: Plan: follows with orthopedics, Dr Santana pain meds prn (9) Other cervical disc degeneration at C5-C6 level: Plan: pain meds prn added gabapentin 100mg TID - started 08/19/23 plan to increase to 300mg TID today ideally would do a short-course of PO steroids but with her gastritis history and other GI issues will hold off for now already on large doses of muscle relaxers poor candidate for NSAIDs would send back to pain management at d/c for consideration of epidural steroid injection at C6 on left (10) Chronic pancreatitis: Plan: cont creon calcifications of pancreas on CT a/p consistent with chronic pancreatitis (11) Hypokalemia: Plan: replaced resolved (12) Chest pain, pleuritic: Plan: symptoms not c/w pericarditis EKG w/o ischemic changes cxr negative patient is on chronic Eliquis making VTE highly unlikely not musculoskeletal esophageal in etiology? doubt given how much acid reduction she is on checked echo - normal EF, normal valves, no effusion she reports improvement in all chest symptoms with albuterol suggesting a primary pulmonary cause of her symptoms (Bronchitis, etc) she is a current smoker and had asthma earlier in life could easily have obstructive lung disease (13) Dyspnea: Plan: suspect due to obstructive disease as her symptoms are improved with albuterol see #12 above Plan if she feels well tomorrow without any pain can d/c home on low fat diet Admission and Anticipated Discharge Date Admission Date: August 20, 2023 Subjective feeling good today minimal to no abdominal pain no pain with eating food or drinking fluids passing flatus no vomiting today tolerating diet still with nausea and continues with needing phenergan continues with neck pain radiating into the left arm (shooting pains / neuropathic pains from C6 radiculopathy) no better, no worse than prior visits she is hoping to go home soon but is worried about going home today denies any dizziness/lightheadedness Review of Systems Review of Systems: gen - no fevers or chills cv - no chest pain (has not recurred) pulm - dyspnea is improved GI - no coffee-ground emesis, no blood in stool Physical Exam Physical Exam: gen - NAD, no signs of withdrawal from etoh, comfortable-appearing - looks good today neck - no JVD mouth - MMM heart - RRR, s1 s2, no murmur; no rub lungs - CTA b/l; normal airation abd - soft NT ND BS+; no HSM ext - no edema, pulses 2+ b/l psych - a/o x 3 Results & Data Results & Data Vital Signs (Past 12 Hours) Vital Signs Temp Pulse Resp BP Pulse Ox O2 Del Method 08/22/23 16:09 99 H 16 98 Room Air 08/22/23 14:37 36.5 C 107 H 15 112/77 95 Room Air 08/22/23 11:57 115 H 18 96 Room Air 08/22/23 07:32 95 H 18 98 Room Air Laboratory Results Laboratory Results - last 24 hr 08/22/23 08/22/23 06:08 08:45 WBC 12.99 H RBC 4.23 Hgb 12.5 Hct 38.2 MCV 90.3 MCH 29.6 MCHC 32.7 RDW Std Deviation 47.7 H RDW Coeff of Jessica 14.4 Plt Count 387 MPV 9.7 Immature Gran % (Auto) 0.4 Neut % (Auto) 64.4 Lymph % (Auto) 26.0 Gordon % (Auto) 7.2 Eos % (Auto) 1.5 Baso % (Auto) 0.5 Neut # (Auto) 8.36 H Lymph # (Auto) 3.38 Gordon # (Auto) 0.94 H Eos # (Auto) 0.19 Baso # (Auto) 0.07 Immature Gran # (Auto) 0.05 Sodium 139 Potassium 4.2 Chloride 103 Carbon Dioxide 29 Anion Gap 7 BUN 7 Creatinine 0.51 L Est Cr Clr Drug Dosing 117.7 Est GFR ( Amer) 136.5 Est GFR (Non-Af Amer) 117.8 BUN/Creatinine Ratio 13.7 Glucose 98 Calcium 9.2 Total Bilirubin 0.4 AST 12 L ALT 9 Alkaline Phosphatase 110 H Troponin I High Sens 2.7 Total Protein 6.1 Albumin 3.7 Globulin 2.4 L Albumin/Globulin Ratio 1.5 Lipase 12 Urine Test Negative PG Care Time/CCT Total # of Minutes Spent Total Time Spent with Patient: Total time spent is greater than 50% in coordination of care (as documented) at patient's floor/unit and/or counseling patient: Coding Level of Care Code 61545 SUB INP/OBS CARE MIN Diagnoses Acute pancreatitis K85.90 Acute pancreatitis complication: unspecified Pancreatitis type: unspecified pancreatitis type Acute alcoholic gastritis without hemorrhage K29.20 Chronicity: acute Gastritis bleeding: without bleeding Gastritis type: alcoholic Cannabis use disorder F12.90 Alcohol intoxication F10.920 Complication of substance-induced condition: uncomplicated Nausea & vomiting R11.2 Vomiting type: unspecified Generalized anxiety disorder with panic attacks F41.1; F41.0 Portal vein thrombosis I81 Degeneration of thoracolumbar intervertebral disc M51.35 Other cervical disc degeneration at C5-C6 level M50.322 Chronic pancreatitis K86.1 Hypokalemia E87.6 Chest pain, pleuritic R07.81 Dyspnea R06.00 (1) Acute pancreatitis Acute pancreatitis complication: unspecified Pancreatitis type: unspecified pancreatitis type Qualified Code(s): K85.90 - Acute pancreatitis without necrosis or infection, unspecified (2) Gastritis Chronicity: acute Gastritis bleeding: without bleeding Gastritis type: alcoholic Qualified Code(s): K29.20 - Alcoholic gastritis without bleeding (4) Alcohol intoxication Complication of substance-induced condition: uncomplicated Qualified Code(s): F10.920 - Alcohol use, unspecified with intoxication, uncomplicated (5) Nausea & vomiting Vomiting type: unspecified Qualified Code(s): R11.2 - Nausea with vomiting, unspecified
[2023-08-23] MEDS: PROMETHAZINE HCL 25 MG TAB PO PRN ×3 (00:13→12:12)
[2023-08-23] MEDS: oxyCODONE HCL IR 5 MG TAB (IMMEDIATE RELEASE) PO PRN ×6 (00:13→20:45)
[2023-08-23] MEDS: ACETAMINOPHEN 500 MG TAB PO PRN ×3 (01:44→18:22)
[2023-08-23] MEDS: ALBUTEROL HFA 8 GM INHALER INH SCH ×4 (07:44→19:33)
[2023-08-23] MEDS: GABAPENTIN 300 MG CAP PO SCH ×3 (07:58→20:00)
[2023-08-23] MEDS: clonazePAM 0.5 MG TAB PO SCH ×2 (07:59→20:01)
[2023-08-23] MEDS: PANTOprazole 40 MG TAB PO SCH ×2 (07:59→20:02)
[2023-08-23] MEDS: FLUoxetine HCL 20 MG CAP PO SCH (07:59)
[2023-08-23] MEDS: NICOTINE 21 MG/24 HR TDSY TD SCH (08:00)
[2023-08-23] MEDS: APIXABAN 5 MG TABLET PO SCH ×2 (08:00→20:02)
[2023-08-23] MEDS: THIAMINE HCL 100 MG TAB PO SCH (08:00)
[2023-08-23] MEDS: FOLIC ACID 1 MG TAB PO SCH (08:00)
[2023-08-23] MEDS: DICLOFENAC SOD 1% GEL 100 GM TUBE EXT SCH ×4 (08:01→20:02)
[2023-08-23] MEDS: METHOCARBAMOL 750 MG TABLET PO SCH ×3 (08:01→19:59)
[2023-08-23] MEDS: SUCRALFATE 1 GM/10 ML UDC PO SCH ×4 (08:01→20:02)
[2023-08-23] MEDS: BACLOFEN 20 MG TAB PO SCH ×2 (08:02→19:59)
[2023-08-23] MEDS: PANCREAZE (LIPASE 10,500U) CAP PO SCH ×4 (08:02→16:34)
[2023-08-23 09:38] LABS: Basophils # (auto) 0.08 K/uL (0.00-0.20); Basophils % (auto) 0.8 %; Eosinophils # (auto) 0.19 K/uL (0.00-0.50); Eosinophils % (auto) 1.8 %; Hematocrit (blood only) 38.6 % (37.0-47.0); Hemoglobin 12.6 g/dl (12.0-16.0); Immature Granulocytes # (auto) 0.05 K/uL (0.01-0.20); Immature Granulocytes % (auto) 0.5 %; Lymphocytes # (auto) 2.63 K/uL (1.20-3.40); Lymphocytes % (auto) 24.7 %; Mean Corpuscular Hemoglobin 29.8 pg (25.0-34.0); Mean Corpuscular Hgb Conc 32.6 g/dL (32.0-36.0); Mean Corpuscular Volume 91.3 fL (80.0-100.0); Mean Platelet Volume 9.9 fL (9.4-12.4); Monocytes # (auto) 1.01 K/uL (0.11-0.59); Monocytes % (auto) 9.5 %; Neutrophils # (auto) 6.68 K/uL (1.40-6.50); Neutrophils % (auto) 62.7 %; Platelet Count 363 K/uL (130-400); RDW Coefficient of Variation 14.6 % (11.5-14.5); RDW Standard Deviation 48.8 fL (36.4-46.3); Red Blood Count 4.23 M/uL (4.20-5.40); White Blood Count 10.64 K/ul (4.8-10.8)
[2023-08-23] MEDS ORDERED: HYDROmorphone INJ 0.5 MG/0.5 ML SYR IV STA (13:18)
[2023-08-23] MEDS ORDERED: FAMOTIDINE 20 MG in SYRINGE 3 ML IV ONE (13:30)
[2023-08-23 14:24] LABS: Albumin Globulin Ratio 1.6 (0.9-2); Albumin Level 3.8 gm/dl (3.4-5.0); BUN Creatinine Ratio 13.1 (10-20); Bilirubin,Total 0.3 mg/dl (0.2-1.0); Calcium 9.6 mg/dl (8.6-10.3); Creatinine Clr Calc Pharmacy 98.4 ml/min; Est GFR (African American) 128.7 ml/min; Globulin 2.4 gm/dl (2.5-4.0); Total Protein 6.2 gm/dl (6.0-8.3)
[2023-08-23 15:16] LABS: Appearance Urine Clear (Clear); Bacteria Urine Automated Negative (Negative); Bilirubin Urine Negative (Negative); Blood Urine Negative (Negative); Cast Urine Automated 0 /lpf (0-5); Color Urine Yellow; Epithelial Cell Urine Auto >30 /lpf (0-5); Glucose Urine UA Negative (Negative); Ketones Urine Negative (Negative); Leukocyte Esterase Urine 2+ (Negative); Nitrite Urine Negative (Negative); Protein Urine Negative (Negative); RBC Urine Automated 0-4 /hpf (0-4); Specific Gravity Urine 1.005 (1.000-1.030); Urobilinogen Urine Negative (Negative); pH Urine 7.5 (4.5-7.5)
[2023-08-23] MEDS ORDERED: OPTIRAY 320 500ml IV ONE (17:45)
--- NOTE | 2023-08-23 18:56 | CT Scan Report ---
ABDOMEN AND PELVIS CT WITH IV AND ORAL CONTRAST CT DOSE: 578.44 mGy.cm HISTORY: ongoing abd pain, acute/chronic pancreatitis TECHNIQUE: Multiaxial CT images of the abdomen and pelvis were performed following the use of intrave nous and oral contrast. A dose lowering technique was utilized adhering to the principles of ALARA. COMPARISON STUDY: Abdomen and pelvis CT 08/18/2023. FINDINGS: Stable 3 mm right middle lobe nodule on image 34. There are few small groundglass airspace opacities seen within the right middle lobe and lingula which have progressed. Focal consolidation wi thin the base of the left lower lobe which may represent atelectasis. A pneumonia could also have a s imilar appearance. There is mild elevation of the left hemidiaphragm, unchanged no pneumoperitoneum. No pneumatosis. No acute fractures identified. The stomach is distended and filled with contrast. How ever, no transition point to suggest a gastric outlet obstruction. The small bowel is normal in cours e and caliber. No evidence for a bowel obstruction. Normal appendix. Moderate fecal retention. No bow el wall thickening. No pelvic free fluid or pelvic lymphadenopathy. The bladder is unremarkable. An i ntrauterine device is in good position. No retroperitoneal lymphadenopathy. Mild calcified plaque wit hin the normal caliber abdominal aorta. Prior cholecystectomy. The liver, spleen, and adrenal glands are within normal limits. Bilateral nephrolithiasis. No ureteral stones. No hydronephrosis. A cluster of calcifications seen within the uncinate process of the pancreas with minimal adjacent inflammator y change/edema. This is similar to the prior study and raises the possibility of a focal acute on chr onic pancreatitis. No peripancreatic fluid collections identified. There is mild mass effect at the p ortosplenic confluence from the adjacent pancreas. However, these venous structures appear patent. Th is is best seen on image 121. This has slightly progressed. This could be due to the suspected acute pancreatitis. However, consider follow-up endoscopic ultrasound to exclude the less likely possibilit y of underlying pancreatic lesion. IMPRESSION: 1. A cluster of calcifications seen within the uncinate process of the pancreas with minimal adjacent inflammatory change/edema. This is similar to the prior study and raises the possibility of a focal acute on chronic pancreatitis. No peripancreatic fluid collections identified. 2. The pancreatic head/uncinate process results in mild mass effect along the adjacent portosplenic c onfluence. However, these venous structures remain patent. This is likely due to the suspected acute pancreatitis. However, consider follow-up endoscopic ultrasound to exclude the less likely possibilit y of underlying pancreatic lesion. 3. Focal consolidation within the base of the left lower lobe which favors atelectasis. A pneumonia c ould also have a similar appearance. 4. Small groundglass airspace opacities within the right middle lobe and lingula. This may represent a viral pneumonitis. 5. Moderate fecal retention. 6. Bilateral nephrolithiasis. No hydronephrosis. 7. Additional findings as described above ACT 112: Negative or not required by law. Electronically signed by: Bunny Doherty M.D. 08/23/2023 6:54 PM
--- NOTE | 2023-08-23 19:40 | Hospitalist Progress Note ---
Date of Service August 23, 2023 Assessment & Plan (1) Abdominal pain: Plan: presumed due to acute on chronic pancreatitis. abd pain has improved/resolved, but now has returned despite multiple days of supportive care. appearance of pancreas largely unchanged from prior CT. LFTs and lipase along with CBC wnl today. urine HCG neg. u/a not suggestive of UTI. CT a/p findings noted - something other than focal acute pancreatitis of the pancreatic head ?? need for MRCP? plan - * downgrade diet to full liquids * restart fluids * pain meds * pepcid x 1 now in the event this is gastritis causing pain but doubt * strongly consider MRCP for more information (2) Acute pancreatitis: Plan: acute on chronic acute - see #1 above cont creon for chronic pancreatitis of note - she denies chronic, daily pain from her chronic pancreatitis she denies chronic diarrhea/steatorrhea (3) Chronic pancreatitis: Plan: cont creon calcifications of pancreas on CT a/p consistent with chronic pancreatitis (4) Pneumonia: Plan: b/l infiltrates on CT lung cuts today she had had cardiopulmonary symptoms earlier this week likely from the pneumonia seen today probably viral, but can't rule out bacterial start omnicef 300mg BID check a COVID test (5) Gastritis: Plan: 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 Continue pantoprazole 40mg BID and Carafate QID Pepcid x 1 now see #1 above (6) Cannabis use disorder: Plan: Cessation advised by admitting MD due to possibility of causing cyclic vomiting syndrome (7) Alcohol intoxication: Plan: only potential sign of etoh withdrawal is mild tachycardic at times otherwise, no tremors, diaphoresis, chills, altered MS, etc cont thiamine supplementation did have elevated etoh level (100) at time of this admission (8) Nausea & vomiting: Plan: no vomiting - but remains with intermittent nausea -- suspect due to gastroparesis +/- pancreatitis see #1 above cont phenergan prn (9) Generalized anxiety disorder with panic attacks: Plan: Continue her routine medications with fluoxetine and clonazepam (10) Portal vein thrombosis: Plan: History of such - continue Eliquis 5mg BID see CT a/p today - "mild mass effect along the adjacent portosplenic confluence. However, these venous structures remain patent." etiology?? consider MRCP as stated above (11) Degeneration of thoracolumbar intervertebral disc: Plan: follows with orthopedics, Dr Santana pain meds prn (12) Other cervical disc degeneration at C5-C6 level: Plan: pain meds prn added gabapentin 100mg TID - started 08/19/23 increased to 300mg TID 08/22/23 ideally would do a short-course of PO steroids but with her gastritis history and other GI issues will hold off for now already on large doses of muscle relaxers poor candidate for NSAIDs would send back to pain management at d/c for consideration of epidural steroid injection at C6 on left (13) Hypokalemia: Plan: replaced resolved (14) Chest pain, pleuritic: Plan: symptoms not c/w pericarditis EKG w/o ischemic changes cxr negative patient is on chronic Eliquis making VTE highly unlikely not musculoskeletal esophageal in etiology? doubt given how much acid reduction she is on checked echo - normal EF, normal valves, no effusion she reports improvement in all chest symptoms with albuterol suggesting a primary pulmonary cause of her symptoms (Bronchitis, etc) CT a/p - lung cuts show b/l pneumonia see above discussion thus, pain was likely due to whatever pathogen was causing pneumonia (15) Dyspnea: Plan: see "pneumonia" and "chest pain" above Plan no discharge due to #1 Admission and Anticipated Discharge Date Admission Date: August 20, 2023 Subjective patient reports recurrent abdominal pain she did not eat much breakfast, but did eat a full lunch eating lunch did not bring on any pain the pain is random, even had it at night last pm ongoing intermittent nausea no vomiting passing flatus no fevers denied any cardiopulmonary complaints Review of Systems Review of Systems: gen - no fevers or chills cv - no chest pain, no orthopnea musculo - ongoing neck pain neuro - ongoing radicular pain of left arm - no change GI - see subjective portion of note; no bloody stools, etc Physical Exam Physical Exam: gen - NAD, no signs of withdrawal from etoh, comfortable-appearing despite c/o abd pain neck - no JVD mouth - MMM heart - RRR, s1 s2, no murmur; no rub lungs - CTA b/l; normal airation abd - soft NT ND BS+; no HSM; no peritoneal signs ext - no edema, pulses 2+ b/l psych - a/o x 3 Results & Data Results & Data Vital Signs (Past 12 Hours) Vital Signs Temp Pulse Resp BP Pulse Ox O2 Del Method 08/23/23 19:34 98 H 16 94 Room Air 08/23/23 15:30 101 H 16 94 Room Air 08/23/23 15:06 36.8 C 94 H 16 110/77 98 Room Air 08/23/23 10:43 110 H 18 94 Room Air 08/23/23 07:50 36.6 C 92 H 16 121/84 96 Room Air 08/23/23 07:44 90 16 96 Room Air Laboratory Results Laboratory Results - last 24 hr 08/23/23 08/23/23 08/23/23 09:05 09:09 14:50 WBC 10.64 RBC 4.23 Hgb 12.6 Hct 38.6 MCV 91.3 MCH 29.8 MCHC 32.6 RDW Std Deviation 48.8 H RDW Coeff of Jessica 14.6 H Plt Count 363 MPV 9.9 Immature Gran % (Auto) 0.5 Neut % (Auto) 62.7 Lymph % (Auto) 24.7 [place] % (Auto) 9.5 Eos % (Auto) 1.8 Baso % (Auto) 0.8 Neut # (Auto) 6.68 H Lymph # (Auto) 2.63 [place] # (Auto) 1.01 H Eos # (Auto) 0.19 Baso # (Auto) 0.08 Immature Gran # (Auto) 0.05 Sodium 140 Potassium 4.0 Chloride 101 Carbon Dioxide 34 H Anion Gap 5 BUN 8 Creatinine 0.61 Est Cr Clr Drug Dosing 98.4 Est GFR ( Amer) 128.7 Est GFR (Non-Af Amer) 111.0 BUN/Creatinine Ratio 13.1 Glucose 80 Calcium 9.6 Total Bilirubin 0.3 AST 11 L ALT 8 Alkaline Phosphatase 98 Total Protein 6.2 Albumin 3.8 Globulin 2.4 L Albumin/Globulin Ratio 1.6 Lipase 7 L Urine Color Yellow Urine Appearance Clear Urine pH 7.5 Ur Specific [place] 1.005 Urine Protein Negative Urine Glucose (UA) Negative Urine Ketones Negative Urine Blood Negative Urine Nitrite Negative Urine Bilirubin Negative Urine Urobilinogen Negative Ur Leukocyte Esterase 2+ H Urine WBC (Auto) 5-10 H Urine RBC (Auto) 0-4 U Hyaline Cast (Auto) 0 U Epithel Cells (Auto) >30 H Urine Bacteria (Auto) Negative Diagnostic Findings Abdomen/Pelvis CT 11/25/23 14:[address] WITH IV AND ORAL CONTRAST CT DOSE: 578.44 mGy.cm HISTORY: ongoing abd pain, acute/chronic pancreatitis TECHNIQUE: Multiaxial CT images of the abdomen and pelvis were performed following the use of intravenous and oral contrast. A dose lowering technique was utilized adhering to the principles of ALARA. COMPARISON STUDY: Abdomen and pelvis CT 08/18/2023. FINDINGS: Stable 3 mm right middle lobe nodule on image 34. There are few small groundglass airspace opacities seen within the right middle lobe and lingula which have progressed. Focal consolidation within the base of the left lower lobe which may represent atelectasis. A pneumonia could also have a similar appearance. There is mild elevation of the left hemidiaphragm, unchanged no pneumoperitoneum. No pneumatosis. No acute fractures identified. The stomach is distended and filled with contrast. However, no transition point to suggest a gastric outlet obstruction. The small bowel is normal in course and caliber. No evidence for a bowel obstruction. Normal appendix. Moderate fecal retention. No bowel wall thickening. No pelvic free fluid or pelvic lymphadenopathy. The bladder is unremarkable. An intrauterine device is in good position. No retroperitoneal lymphadenopathy. Mild calcified plaque within the normal caliber abdominal aorta. Prior cholecystectomy. The liver, spleen, and adrenal glands are within normal limits. Bilateral nephrolithiasis. No ureteral stones. No hydronephrosis. A cluster of calcifications seen within the uncinate process of the pancreas with minimal adjacent inflammatory change/edema. This is similar to the prior study and raises the possibility of a focal acute on chronic pancreatitis. No peripancreatic fluid collections identified. There is mild mass effect at the portosplenic confluence from the adjacent pancreas. However, these venous structures appear patent. This is best seen on image 121. This has slightly progressed. This could be due to the suspected acute pancreatitis. However, consider follow-up endoscopic ultrasound to exclude the less likely possibility of underlying pancreatic lesion. IMPRESSION: 1. A cluster of calcifications seen within the uncinate process of the pancreas with minimal adjacent inflammatory change/edema. This is similar to the prior study and raises the possibility of a focal acute on chronic pancreatitis. No peripancreatic fluid collections identified. 2. The pancreatic head/uncinate process results in mild mass effect along the adjacent portosplenic confluence. However, these venous structures remain patent. This is likely due to the suspected acute pancreatitis. However, consider follow-up endoscopic ultrasound to exclude the less likely possibility of underlying pancreatic lesion. 3. Focal consolidation within the base of the left lower lobe which favors atelectasis. A pneumonia could also have a similar appearance. 4. Small groundglass airspace opacities within the right middle lobe and lingula. This may represent a viral pneumonitis. 5. Moderate fecal retention. 6. Bilateral nephrolithiasis. No hydronephrosis. 7. Additional findings as described above ACT 112: Negative or not required by law. Electronically signed by: Bunny Doherty M.D. 08/23/2023 6:54 PM PG Care Time/CCT Total # of Minutes Spent Total Time Spent with Patient: Total time spent is greater than 50% in coordination of care (as documented) at patient's floor/unit and/or counseling patient: Coding Level of Care Code 51044 SUB INP/OBS CARE 3/50MIN Diagnoses Abdominal pain R10.13 Abdominal location: epigastric Acute pancreatitis K85.90 Acute pancreatitis complication: unspecified Pancreatitis type: unspecified pancreatitis type Chronic pancreatitis K86.1 Pneumonia J18.9 Acute alcoholic gastritis without hemorrhage K29.20 Chronicity: acute Gastritis bleeding: without bleeding Gastritis type: alcoholic Cannabis use disorder F12.90 Alcohol intoxication F10.920 Complication of substance-induced condition: uncomplicated Nausea & vomiting R11.2 Vomiting type: unspecified Generalized anxiety disorder with panic attacks F41.1; F41.0 Portal vein thrombosis I81 Degeneration of thoracolumbar intervertebral disc M51.35 Other cervical disc degeneration at C5-C6 level M50.322 Hypokalemia E87.6 Chest pain, pleuritic R07.81 Dyspnea R06.00 (1) Abdominal pain Abdominal location: epigastric Qualified Code(s): R10.13 - Epigastric pain (2) Acute pancreatitis Acute pancreatitis complication: unspecified Pancreatitis type: unspecified pancreatitis type Qualified Code(s): K85.90 - Acute pancreatitis without necrosis or infection, unspecified (5) Gastritis Chronicity: acute Gastritis bleeding: without bleeding Gastritis type: alcoholic Qualified Code(s): K29.20 - Alcoholic gastritis without bleeding (7) Alcohol intoxication Complication of substance-induced condition: uncomplicated Qualified Code(s): F10.920 - Alcohol use, unspecified with intoxication, uncomplicated (8) Nausea & vomiting Vomiting type: unspecified Qualified Code(s): R11.2 - Nausea with vomiting, unspecified
[2023-08-23] MEDS: POLYETHYLENE (MIRALAX) 17 GM PACK PO SCH (19:59)
[2023-08-23] MEDS: SODIUM CHLORIDE 0.9% 1,000 ML IV SCH (19:59)
[2023-08-23] MEDS: CEFDINIR 300 MG CAP PO SCH (19:59)
[2023-08-23] MEDS: HYDROmorphone INJ 0.5 MG/0.5 ML SYR IV PRN ×2 (20:06→21:40)
[2023-08-24] MEDS: oxyCODONE HCL IR 5 MG TAB (IMMEDIATE RELEASE) PO PRN ×5 (01:07→23:48)
[2023-08-24] MEDS: HYDROmorphone INJ 0.5 MG/0.5 ML SYR IV PRN ×3 (04:51→21:57)
[2023-08-24] MEDS: ALBUTEROL HFA 8 GM INHALER INH SCH ×4 (06:58→20:19)
[2023-08-24] MEDS: PROMETHAZINE HCL 25 MG TAB PO PRN ×2 (07:27→14:02)
[2023-08-24] MEDS: SODIUM CHLORIDE 0.9% 1,000 ML IV SCH (07:28)
[2023-08-24] MEDS: DICLOFENAC SOD 1% GEL 100 GM TUBE EXT SCH ×4 (08:02→19:29)
[2023-08-24] MEDS: PANCREAZE (LIPASE 10,500U) CAP PO SCH ×3 (08:02→16:33)
[2023-08-24] MEDS: POLYETHYLENE (MIRALAX) 17 GM PACK PO SCH ×2 (08:05→19:29)
[2023-08-24] MEDS: GABAPENTIN 300 MG CAP PO SCH ×3 (08:06→19:30)
[2023-08-24] MEDS: PANTOprazole 40 MG TAB PO SCH ×2 (08:06→19:30)
[2023-08-24] MEDS: NICOTINE 21 MG/24 HR TDSY TD SCH (08:06)
[2023-08-24] MEDS: SUCRALFATE 1 GM/10 ML UDC PO SCH ×4 (08:06→19:29)
[2023-08-24] MEDS: clonazePAM 0.5 MG TAB PO SCH ×2 (08:06→19:28)
[2023-08-24] MEDS: METHOCARBAMOL 750 MG TABLET PO SCH ×3 (08:07→19:28)
[2023-08-24] MEDS: THIAMINE HCL 100 MG TAB PO SCH (08:07)
[2023-08-24] MEDS: FLUoxetine HCL 20 MG CAP PO SCH (08:07)
[2023-08-24] MEDS: FOLIC ACID 1 MG TAB PO SCH (08:07)
[2023-08-24] MEDS: APIXABAN 5 MG TABLET PO SCH ×2 (08:07→19:30)
[2023-08-24] MEDS: BACLOFEN 20 MG TAB PO SCH ×2 (08:07→19:28)
[2023-08-24] MEDS: CEFDINIR 300 MG CAP PO SCH ×2 (08:07→19:29)
--- NOTE | 2023-08-24 14:08 | Hospitalist Progress Note ---
Date of Service August 24, 2023 Assessment & Plan (1) Abdominal pain: Plan: presumed due to acute on chronic pancreatitis. abd pain has improved/resolved, but now has returned despite multiple days of supportive care. appearance of pancreas largely unchanged from prior CT. LFTs and lipase and CBCs remain normal. urine HCG neg. u/a not suggestive of UTI. CT a/p findings noted - something other than focal acute pancreatitis of the pancreatic head ?? pt was due for MRI abdomen with and w/o contrast - ordered by [facility] - will obtain this today. plan - * try low fat diet again * stop fluids * pain meds prn; wean dilaudid OFF (2) Acute pancreatitis: Plan: acute on chronic acute - see #1 above cont creon for chronic pancreatitis of note - she denies chronic, daily pain from her chronic pancreatitis she denies chronic diarrhea/steatorrhea (3) Chronic pancreatitis: Plan: cont creon calcifications of pancreas on CT a/p consistent with chronic pancreatitis (4) Pneumonia: Plan: b/l infiltrates on CT lung cuts yesterday URI symptoms likely viral; can't rule out bacterial cause she had had cardiopulmonary symptoms earlier this week likely from the pneumonia seen day #2 omnicef 300mg BID COVID test negative (5) Gastritis: Plan: 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 Continue pantoprazole 40mg BID and Carafate QID (6) Cannabis use disorder: Plan: Cessation advised by admitting MD due to possibility of causing cyclic vomiting syndrome (7) Alcohol intoxication: Plan: only potential sign of etoh withdrawal is mild tachycardic at times otherwise, no tremors, diaphoresis, chills, altered MS, etc cont thiamine supplementation did have elevated etoh level (100) at time of this admission (8) Nausea & vomiting: Plan: no vomiting - but remains with nausea -- suspect due to gastroparesis trial of reglan 5mg AC check EKG am - QTc see #1 above cont phenergan prn (9) Generalized anxiety disorder with panic attacks: Plan: Continue her routine medications with fluoxetine and clonazepam (10) Portal vein thrombosis: Plan: History of such - continue Eliquis 5mg BID see CT a/p today - "mild mass effect along the adjacent portosplenic confluence. However, these venous structures remain patent." etiology?? MRI abdomen (11) Degeneration of thoracolumbar intervertebral disc: Plan: follows with orthopedics, Dr Santana pain meds prn (12) Other cervical disc degeneration at C5-C6 level: Plan: pain meds prn added gabapentin 100mg TID - started 08/19/23 increased to 300mg TID 08/22/23 ideally would do a short-course of PO steroids but with her gastritis history and other GI issues will hold off for now already on large doses of muscle relaxers poor candidate for NSAIDs would send back to pain management at d/c for consideration of epidural steroid injection at C6 on left (13) Hypokalemia: Plan: replaced resolved (14) Chest pain, pleuritic: Plan: pain resolved symptoms were not c/w pericarditis EKG w/o ischemic changes cxr negative patient is on chronic Eliquis making VTE highly unlikely not musculoskeletal esophageal in etiology? doubt given how much acid reduction she is on checked echo - normal EF, normal valves, no effusion she reports improvement in all chest symptoms with albuterol suggesting a primary pulmonary cause of her symptoms (Bronchitis, etc) CT a/p - lung cuts show b/l pneumonia see above discussion thus, pain was likely due to whatever pathogen was causing pneumonia (15) Dyspnea: Plan: see "pneumonia" and "chest pain" above Plan no discharge today but hopefully tomorrow Admission and Anticipated Discharge Date Admission Date: August 20, 2023 Subjective pt reports that abd pain is better - 2-3/10 on pain scale at most the most painful area is her neck and left arm still with nausea - it is nearly constant taking phenergan multiple times each day tolerating full liquids w/o pain moved her bowels having more URI symptoms today Review of Systems Review of Systems: gen - no fevers cv - no pains pulm - coughing, no dyspnea GI - no vomiting despite the nausea Physical Exam Physical Exam: gen - NAD, no signs of withdrawal from etoh, comfortable-appearing, sniffling & coughing neck - no JVD mouth - MMM heart - RRR, s1 s2, no murmur; no rub lungs - CTA b/l; normal airation; scant rales bases abd - soft NT ND BS+; no HSM; no peritoneal signs ext - no edema, pulses 2+ b/l psych - a/o x 3 Results & Data Results & Data Vital Signs (Past 12 Hours) Vital Signs Temp Pulse Resp BP Pulse Ox O2 Del Method 08/24/23 11:33 102 H 18 91 Room Air 08/24/23 08:00 Room Air 08/24/23 07:04 36.7 C 97 H 16 122/86 95 Room Air 08/24/23 06:58 94 H 18 96 Room Air Laboratory Results Laboratory Results - last 48 hr 08/23/23 08/23/23 08/24/23 09:09 14:50 01:15 Sodium 140 Potassium 4.0 Chloride 101 Carbon Dioxide 34 H Anion Gap 5 BUN 8 Creatinine 0.61 Est Cr Clr Drug Dosing 98.4 Est GFR ( Amer) 128.7 Est GFR (Non-Af Amer) 111.0 BUN/Creatinine Ratio 13.1 Glucose 80 Calcium 9.6 Total Bilirubin 0.3 AST 11 L ALT 8 Alkaline Phosphatase 98 Total Protein 6.2 Albumin 3.8 Globulin 2.4 L Albumin/Globulin Ratio 1.6 Lipase 7 L Urine Color Yellow Urine Appearance Clear Urine pH 7.5 Ur Specific [place] 1.005 Urine Protein Negative Urine Glucose (UA) Negative Urine Ketones Negative Urine Blood Negative Urine Nitrite Negative Urine Bilirubin Negative Urine Urobilinogen Negative Ur Leukocyte Esterase 2+ H Urine WBC (Auto) 5-10 H Urine RBC (Auto) 0-4 U Hyaline Cast (Auto) 0 U Epithel Cells (Auto) >30 H Urine Bacteria (Auto) Negative SARS-CoV-2 (PCR) NEGATIVE PG Care Time/CCT Total # of Minutes Spent Total Time Spent with Patient: Total time spent is greater than 50% in coordination of care (as documented) at patient's floor/unit and/or counseling patient: Coding Level of Care Code 65991 SUB INP/OBS CARE 3/50MIN Diagnoses Abdominal pain R10.13 Abdominal location: epigastric Acute pancreatitis K85.90 Acute pancreatitis complication: unspecified Pancreatitis type: unspecified pancreatitis type Chronic pancreatitis K86.1 Pneumonia J18.9 Acute alcoholic gastritis without hemorrhage K29.20 Chronicity: acute Gastritis bleeding: without bleeding Gastritis type: alcoholic Cannabis use disorder F12.90 Alcohol intoxication F10.920 Complication of substance-induced condition: uncomplicated Nausea & vomiting R11.2 Vomiting type: unspecified Generalized anxiety disorder with panic attacks F41.1; F41.0 Portal vein thrombosis I81 Degeneration of thoracolumbar intervertebral disc M51.35 Other cervical disc degeneration at C5-C6 level M50.322 Hypokalemia E87.6 Chest pain, pleuritic R07.81 Dyspnea R06.00 (1) Abdominal pain Abdominal location: epigastric Qualified Code(s): R10.13 - Epigastric pain (2) Acute pancreatitis Acute pancreatitis complication: unspecified Pancreatitis type: unspecified pancreatitis type Qualified Code(s): K85.90 - Acute pancreatitis without necrosis or infection, unspecified (5) Gastritis Chronicity: acute Gastritis bleeding: without bleeding Gastritis type: alcoholic Qualified Code(s): K29.20 - Alcoholic gastritis without bleeding (7) Alcohol intoxication Complication of substance-induced condition: uncomplicated Qualified Code(s): F10.920 - Alcohol use, unspecified with intoxication, uncomplicated (8) Nausea & vomiting Vomiting type: unspecified Qualified Code(s): R11.2 - Nausea with vomiting, unspecified
[2023-08-24] MEDS ORDERED: clonazePAM 1 MG TAB PO STA (15:31)
[2023-08-24] MEDS ORDERED: GADOBUTROL 30ML VIAL IV ONE (16:07)
[2023-08-24] MEDS: METOCLOPRAMIDE HCL 5 MG TABLET PO SCH (16:32)
--- NOTE | 2023-08-24 17:23 | Magnetic Resonance Report ---
MR abdomen wo/w con CLINICAL HISTORY: acute/chronic pancreatitis, pancreatic head mass? TECHNIQUE: Multiplanar multisequence images were obtained of the abdomen with and without the adminis tration of contrast. COMPARISON: Comparison is made to CT abdomen pelvis 08/23/2023 FINDINGS: Lower chest: No acute abnormality Liver: Unremarkable. No focal lesions are seen. Gallbladder and biliary tree: Patient is status post cholecystectomy. Physiologic prominence of the b iliary ducts is noted. Pancreas: Mild susceptibility artifact about the pancreatic head compatible with calcifications. Spleen: Unremarkable. Adrenals: Unremarkable. Kidneys and ureters: Unremarkable. Bowel: Unremarkable. Lymph nodes Retroperitoneal: There is a 9 mm lymph node adjacent to the pancreatic head. Mesenteric: Unremarkable. Peritoneum: Normal Vessels: Mild narrowing of the portal splenic confluence is again seen with no mass lesions seen. Abdominal wall: Unremarkable. Bones: Unremarkable. IMPRESSION: 1. No acute abnormality and in particular no evidence of pancreatic head mass. Subcentimeter retrope ritoneal lymph nodes are seen. No acute abnormalities are seen. 2. Mild narrowing of the portal splenic confluence is again seen without evidence of mass lesion. 3. Findings suggestive of chronic pancreatitis. ACT 112: Negative or not required by law. Electronically signed by: Armand Cohen M.D. 08/24/2023 5:21 PM
[2023-08-25] MEDS: oxyCODONE HCL IR 5 MG TAB (IMMEDIATE RELEASE) PO PRN ×2 (04:06→10:35)
[2023-08-25] MEDS: HYDROmorphone INJ 0.5 MG/0.5 ML SYR IV PRN (05:28)
[2023-08-25] MEDS: ALBUTEROL HFA 8 GM INHALER INH SCH ×2 (07:25→11:44)
[2023-08-25 07:42] LABS: BUN Creatinine Ratio 14.8 (10-20); Calcium 9.5 mg/dl (8.6-10.3); Creatinine Clr Calc Pharmacy 111.1 ml/min; Est GFR (Non-African American) 115.6 ml/min; Potassium 3.6 mmol/L (3.5-5.1)
[2023-08-25] MEDS: DICLOFENAC SOD 1% GEL 100 GM TUBE EXT SCH ×2 (08:40→12:32)
[2023-08-25] MEDS: GABAPENTIN 300 MG CAP PO SCH ×2 (08:42→14:00)
[2023-08-25] MEDS: POLYETHYLENE (MIRALAX) 17 GM PACK PO SCH (08:42)
[2023-08-25] MEDS: PANTOprazole 40 MG TAB PO SCH (08:43)
[2023-08-25] MEDS: APIXABAN 5 MG TABLET PO SCH (08:43)
[2023-08-25] MEDS: BACLOFEN 20 MG TAB PO SCH (08:43)
[2023-08-25] MEDS: FLUoxetine HCL 20 MG CAP PO SCH (08:43)
[2023-08-25] MEDS: CEFDINIR 300 MG CAP PO SCH (08:44)
[2023-08-25] MEDS: METHOCARBAMOL 750 MG TABLET PO SCH ×2 (08:44→14:01)
[2023-08-25] MEDS: THIAMINE HCL 100 MG TAB PO SCH (08:45)
[2023-08-25] MEDS: NICOTINE 21 MG/24 HR TDSY TD SCH (08:45)
[2023-08-25] MEDS: FOLIC ACID 1 MG TAB PO SCH (08:45)
[2023-08-25] MEDS: METOCLOPRAMIDE HCL 5 MG TABLET PO SCH ×2 (08:46→12:32)
[2023-08-25] MEDS: SUCRALFATE 1 GM/10 ML UDC PO SCH ×2 (08:46→12:31)
[2023-08-25] MEDS: PANCREAZE (LIPASE 10,500U) CAP PO SCH ×2 (08:46→12:33)
[2023-08-25] MEDS: clonazePAM 0.5 MG TAB PO SCH (08:53)
--- NOTE | 2023-08-25 19:33 | Electrocardiogram Report ---
Test Reason : Blood Pressure : / mmHG Vent. Rate : 090 BPM Atrial Rate : 090 BPM P-R Int : 146 ms QRS Dur : 080 ms QT Int : 366 ms P-R-T Axes : 063 070 057 degrees QTc Int : 447 ms Normal sinus rhythm Normal ECG When compared with ECG of 20-AUG-2023 17:47, No significant change was found Confirmed by Magen Mello ([id number]) on 08/25/2023 7:32:52 PM Referred By: REFERRED SELF Confirmed By:Salvador Mello
--- NOTE | 2023-08-27 15:51 | Discharge Summary ---
Date of Service date of admission - August 18, 2023 date of discharge - August 25, 2023 Admission HPI Per Admitting Provider Nadja Pete is a 42 year old female with alcohol use disorder and multiple admissions for pancreatitis who presents to the ER with abdominal pain. CT in ER concerning for possible mild pancreatitis. She reports increasing abdominal pain over the last 2 days. Unable to keep down anything orally today. Her alcohol level was elevated on admission and she does admit to having a small glass of alcohol last night to help calm her stomach although denies use since May otherwise. She continues to smoke marijuana daily. No change in bowel movements. She reports this feels more like her gastritis than prior episodes of pancreatitis and she has not taken her pantoprazole for the last 2 days. Principal Diagnosis 1. acute on chronic pancreatitis 2. C6 radiculopathy on left 3. gastroparesis 4. mild pneumonia 5. constipation 6. h/o etoh abuse 7. h/o tobacco abuse Discharge Exam gen - NAD, no signs of withdrawal from etoh, comfortable-appearing, best she has looked since admission neck - no JVD mouth - MMM heart - RRR, s1 s2, no murmur; no rub lungs - CTA b/l; normal airation abd - soft NT ND BS+; no HSM; no peritoneal signs ext - no edema, pulses 2+ b/l psych - a/o x 3 Discharge Data Allergies Allergy/AdvReac Type Severity Reaction Status Date / Time buspirone [From BuSpar] Allergy Severe Unconscious, Verified 08/27/23 13:41 seizures quetiapine [From Seroquel] Allergy Severe Unconscious, Verified 08/27/23 13:41 seizures citalopram [From Celexa] AdvReac Intermediate Vomiting Verified 08/27/23 13:41 morphine AdvReac Intermediate "MAKES ME Verified 08/27/23 13:41 SICK(VOMITING)" vilazodone [From Viibryd] AdvReac Vomiting Verified 08/27/23 13:41 Procedures Performed Echocardiogram: EF 60-65% normal valve function no regional wall motion abnormalities no pericardial effusion Ordered Studies Abdomen/Pelvis CT 08/18/23 11:22 CT SCAN OF THE ABDOMEN AND PELVIS WITH IV CONTRAST CLINICAL HISTORY: Generalized abdominal pain. Nausea. Vomiting. COMPARISON STUDY: Abdominal CT dated 02/17/2023. TECHNIQUE: Following the IV administration of 97 cc of Optiray 320, CT scan of the abdomen and pelvis is performed from the lung bases to the proximal femora. Images are reviewed in the axial, sagittal, and coronal planes. IV contrast was administered without complication. A dose lowering technique was utilized adhering to the principles of ALARA. CT DOSE: 634.56 mGy.cm FINDINGS: Lung bases: The heart is normal in size and without pericardial effusion. There is left basilar scarring/atelectasis. A 3 mm right middle lobe pulmonary nodule on image #32 is unchanged. There is no airspace consolidation typical for pneumonia or pleural effusion. Liver: The contrast-enhanced liver is normal in size, contour, and attenuation. There is no intrahepatic biliary ductal dilatation. The hepatic veins and portal veins are patent. Gallbladder: Surgically absent noting clips in the gallbladder fossa. Spleen: Normal in size and attenuation. Pancreas: Parenchymal calcifications are again seen in the uncinate process with mild fatty infiltration. The pancreas is otherwise normal as imaged. The gland enhances throughout. The duct is normal in caliber and there is no peripanc reatic fluid collection Adrenal glands: Small bilateral adrenal adenomas are unchanged. Kidneys: The contrast enhanced kidneys are normal in size and without hydronephrosis. The kidneys enhance symmetrically. There small nonobstructing left renal calculi measuring up to 3 mm. No right renal calculi are clearly seen on this contrast-enhanced examination. There is no ureteral stone. Abdominal vasculature: The abdominal aorta is normal in course and caliber noting mild to moderate atherosclerotic calcification. Bowel: There is no bowel obstruction. Submucosal fat deposition is seen throug hout the colon. This is a nonspecific finding but is been described in the setting of chronic inflammation. No acute inflammation is identified. The appendix is well-visualized and normal. Peritoneum: There is no intraperitoneal free air or abdominal ascites. A navel piercing is noted. Lymphadenopathy: None. Pelvic viscera: The bladder is decompressed and grossly unremarkable. The uterus is normal as visualized noting an intrauterine device in place. No adnexal lesion is seen. Skeletal structures: No lytic or blastic lesions are seen. IMPRESSION: 1. Question mild acute pancreatitis. Correlate with clinical and laboratory findings. 2. There is no bowel obstruction. 3. Additional findings as above. ACT 112: Negative or not required by law. Electronically signed by: Austin Hines M.D. 08/18/2023 12:44 PM Chest X-Ray 08/20/23 17:26 TWO VIEW CHEST CLINICAL HISTORY: Dyspnea. FINDINGS: PA and lateral chest radiographs are compared to study dated 06/26/2023 and correlated with chest CT dated 07/03/2023. The cardiomediastinal silhouette is unremarkable. There is elevation of the left hemidiaphragm with left basilar scarring/atelectasis. This is similar to previous. The lungs and pleural spaces are otherwise clear. An accessory azygos fissure is incidentally noted. There is no pneumothorax. The bony thorax appears intact. Cholecystectomy clips are noted in the right upper quadrant. IMPRESSION: No active disease in the chest. ACT 112: Negative or not required by law. Electronically signed by: Austin Hines M.D. 08/20/2023 7:18 PM KUB X-Ray 08/21/23 13:52 XR KUB/Abdomen 1 view CLINICAL HISTORY: abd pain, constipation? TECHNIQUE: 1 view of the abdomen was obtained. Comparison: Comparison is made to abdomen radiograph 08/05/2023 FINDINGS: Lung bases are unremarkable. The osseous structures are grossly unremarkable. The bowel gas pattern is nonobstructive. Prominent colonic gas is seen. No significant stool burden is seen and no fecal impaction. IUD is incidentally noted. IMPRESSION: Prominent colonic gas with no evidence of fecal impaction or significant stool burden. ACT 112: Negative or not required by law. Electronically signed by: Armand Cohen M.D. 08/21/2023 2:19 PM Abdomen/Pelvis CT 08/23/23 14:[address] WITH IV AND ORAL CONTRAST CT DOSE: 578.44 mGy.cm HISTORY: ongoing abd pain, acute/chronic pancreatitis TECHNIQUE: Multiaxial CT images of the abdomen and pelvis were performed foll owing the use of intravenous and oral contrast. A dose lowering technique was utilized adhering to the principles of ALARA. COMPARISON STUDY: Abdomen and pelvis CT 08/18/2023. FINDINGS: Stable 3 mm right middle lobe nodule on image 34. There are few small groundglass airspace opacities seen within the right middle lobe and lingula which have progressed. Focal consolidation within the base of the left lower lobe which may represent atelectasis. A pneumonia could also have a similar appearance. There is mild elevation of the left hemidiaphragm, unchanged no pneumoperitoneum. No pneumatosis. No acute fractures identified. The stomach is distended and filled with contrast. However, no transition point to suggest a gastric outlet obstruction. The small bowel is normal in course and caliber. No evidence for a bowel obstruction. Normal appendix. Moderate fecal retention. No bowel wall thickening. No pelvic free fluid or pelvic lymphadenopathy. The bladder is unremarkable. An intrauterine device is in good position. No retroperitoneal lymphadenopathy. Mild calcified plaque within the normal caliber abdominal aorta. Prior cholecystectomy. The liver, spleen, and adrenal glands are within normal limits. Bilateral nephrolithiasis. No ureteral stones. No hydronephrosis. A cluster of calcifications seen within the uncinate process of the pancreas with minimal adjacent inflammatory change/edema. This is similar to the prior study and raises the possibility of a focal acute on chronic pancreatitis. No peripancreatic fluid collections identified. There is mild mass effect at the portosplenic confluence from the adjacent pancreas. However, these venous structures appear patent. This is best seen on image 121. This has slightly progressed. This could be due to the suspected acute pancreatitis. However, consider follow-up endoscopic ultrasound to exclude the less likely possibility of underlying pancreatic lesion. IMPRESSION: 1. A cluster of calcifications seen within the uncinate process of the pancreas with minimal adjacent inflammatory change/edema. This is similar to the prior study and raises the possibility of a focal acute on chronic pancreatitis. No peripancreatic fluid collections identified. 2. The pancreatic head/uncinate process results in mild mass effect along the adjacent portosplenic confluence. However, these venous structures remain patent. This is likely due to the suspected acute pancreatitis. However, consider follow-up endoscopic ultrasound to exclude the less likely possibility of underlying pancreatic lesion. 3. Focal consolidation within the base of the left lower lobe which favors atelectasis. A pneumonia could also have a similar appearance. 4. Small groundglass airspace opacities within the right middle lobe and lingula. This may represent a viral pneumonitis. 5. Moderate fecal retention. 6. Bilateral nephrolithiasis. No hydronephrosis. 7. Additional findings as described above ACT 112: Negative or not required by law. Electronically signed by: Bunny Doherty M.D. 08/23/2023 6:54 PM Abdomen MRI 08/24/23 14:06 MR abdomen wo/w con CLINICAL HISTORY: acute/chronic pancreatitis, pancreatic head mass? TECHNIQUE: Multiplanar multisequence images were obtained of the abdomen with and without the administration of contrast. COMPARISON: Comparison is made to CT abdomen pelvis 08/23/2023 FINDINGS: Lower chest: No acute abnormality Liver: Unremarkable. No focal lesions are seen. Gallbladder and biliary tree: Patient is status post cholecystectomy. Physiologic prominence of the biliary ducts is noted. Pancreas: Mild susceptibility artifact about the pancreatic head compatible with calcifications. Spleen: Unremarkable. Adrenals: Unremarkable. Kidneys and ureters: Unremarkable. Bowel: Unremarkable. Lymph nodes Retroperitoneal: There is a 9 mm lymph node adjacent to the pancreatic head. Mesenteric: Unremarkable. Peritoneum: Normal Vessels: Mild narrowing of the portal splenic confluence is again seen with no mass lesions seen. Abdominal wall: Unremarkable. Bones: Unremarkable. IMPRESSION: 1. No acute abnormality and in particular no evidence of pancreatic head mass. Subcentimeter retroperitoneal lymph nodes are seen. No acute abnormalities are seen. 2. Mild narrowing of the portal splenic confluence is again seen without evidence of mass lesion. 3. Findings suggestive of chronic pancreatitis. ACT 112: Negative or not required by law. Electronically signed by: Armand Cohen M.D. 08/24/2023 5:21 PM Hospital Course (1) Abdominal pain: At admission her pain was presumed due to acute on chronic pancreatitis based on her admission CT. Her abdominal pain had improved/resolved with bowel rest, IV fluids, pain meds, etc. Diet was resumed and ultimately advanced to low fat diet. She was tolerating such, but then her pain returned. A repeat CT abd/pelvis was obtained and the appearance of the pancreas was largely unchanged from prior CT done on day of admission. Despite her pain returning her LFTs, lipase and CBCs remained normal. Urine HCG neg. u/a not suggestive of UTI. Ms Pete was actually due for an outpatient MRI of the abdomen with contrast and, in light of ongoing abdominal pain, this was obtained. Results as above. Fortunately no pancreatic mass was seen. No new thrombus seen. No pseudocyst formation, necrosis, or other acute pathology was found on the MRI. She was advanced once again back to low fat diet. She was finally tolerating this prior to discharge. Nausea was better with reglan. Bowels were moving as well. She should follow-up with [facility] as outpatient. She should continue creon with meals. (2) Acute pancreatitis: acute on chronic see #1 above (3) Chronic pancreatitis: cont creon calcifications of pancreas on CT a/p consistent with chronic pancreatitis of note - she denies chronic, daily pain from her chronic pancreatitis she denies chronic diarrhea/steatorrhea (4) Pneumonia: About midway through the stay Ms Pete began to complain of chest tightness with mild dyspnea. Chest x-ray was negative. Echo was normal. EKG was normal. She had no symptoms/signs of pericarditis. She is on chronic Eliquis thus PE was unlikely. Symptoms improved with albuterol. When the repeat CT of the abd/pelvis was obtained due to ongoing abdominal pain b/l infiltrates were seen in the lung bases on the lung cuts. She also began to develop URI symptoms about this time. COVID testing was negative. The CT findings were suggestive of pneumonia. Although her symptoms & signs were likely viral, a bacterial cause could not be excluded. Thus, she was placed on omnicef 300mg BID x 7 days. She never had an O2 requirement while here. (5) Gastritis: 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 Continue pantoprazole 40mg BID and Carafate QID (6) Cannabis use disorder: Cessation advised by admitting MD due to possibility of causing cyclic vomiting syndrome (7) Alcohol intoxication: Patient had an elevated etoh level of 100 at time of admission. She did not show any significant signs of etoh withdrawal during the stay except for mild tachycardia. Otherwise, no tremors, diaphoresis, chills, altered MS, etc were seen. Cont thiamine supplementation. (8) Nausea & vomiting: No vomiting during the hospitalization but she had refractory nausea nearly the entire stay. Suspect her nausea was due to multiple factors but gastroparesis was probably the largest culprit. She was trialed on reglan 5mg AC with excellent results. EKG showed normal QTc. At discharge she was continued on reglan 5mg before meals. f/u with [facility]. (9) Generalized anxiety disorder with panic attacks: Continue her routine medications with fluoxetine and clonazepam (10) Portal vein thrombosis: History of such - continue Eliquis 5mg BID. CT a/p with "mild mass effect along the adjacent portosplenic confluence. However, these venous structures remain patent." MRI abdomen with contrast, however, did not show any worrisome arterial/venous abnormalities. (11) Degeneration of thoracolumbar intervertebral disc: follows with orthopedics, Dr Santana pain meds prn (12) Other cervical disc degeneration at C5-C6 level: pain meds prn added gabapentin 100mg TID - started 08/19/23 increased to 300mg TID 08/22/23 ideally would do a short-course of PO steroids but with her gastritis history and other GI issues I held off while here already on large doses of muscle relaxers poor candidate for NSAIDs would send back to pain management at d/c for consideration of epidural steroid injection at C6 on left (13) Hypokalemia: replaced resolved (14) Chest pain, pleuritic: pain resolved symptoms were not c/w pericarditis EKG w/o ischemic changes cxr negative patient is on chronic Eliquis making VTE highly unlikely not musculoskeletal esophageal in etiology? doubt given how much acid reduction she is on checked echo - normal EF, normal valves, no effusion she reported improvement in all chest symptoms with albuterol suggesting a primary pulmonary cause of her symptoms (Bronchitis, etc) CT a/p - lung cuts showed b/l pneumonia see above discussion thus, pain was likely due to her pneumonia (15) Dyspnea: see "pneumonia" and "chest pain" above (16) Tobacco abuse: counseled to quit nicoderm patch given at discharge Total Time Total Time Spent Total Time Spent (In Minutes): 50 Discharge Plan Discharge Items Patient Disposition: Home - Self-Care Reason For Visit: ACUTE/CHRONIC PANCREATITIS Discharge Diagnosis: 1. acute on chronic pancreatitis; the acute component is resolved 2. severe neck pain with left arm pain - suspected to be due to "pinched" nerve at C6 on the left 3. gastroparesis 4. mild pneumonia 5. constipation Activity: Per Instructions section Lifting: No more than 10 pounds Exercise/Sports: Wait until after follow-up appointment Driving/Machine Use: NO DRIVING if taking narcotic pain killer meds OR muscle relaxers Non-emergency contact: Primary Care Provider and Specialist Call non-emergency contact if: you have any medication questions, your symptoms worsen, your pain is not controlled and your pain is worsening Follow-up/Referrals: Eleuterio Lewis DO [Physician] - 08/29/23 1:20 pm (APPOINTMENT WITH [facility]) Leslie Herrera DO [Physician] - 09/02/23 8:30 am Damian Keller DO [Primary Care Provider] - 09/01/23 2:00 pm Diet: Low Fat Diet Comment: small meals are best with gastroparesis Addtl Attending Provider Instructions: Ms Pete, You were treated for acute on chronic pancreatitis. The acute pancreatitis caused much of your abdominal pain, vomiting, and some of the nausea. During your stay we also treated a mild pneumonia (seen on CT scan) with antibiotics, your gastroparesis, and started new medication for your neck problem. With time all of the above issues improved with the exception of your neck pain. Recommendations - 1. low fat diet due to pancreatitis and gastroparesis 2. metoclopramide 5mg about 30 minutes before meals; this medicine is for gastroparesis (see handouts) * please avoid using promethazine and ondansetron since you are now on metoclopramide 3. for constipation - ghgk-yxh-xvmdwke miralax once daily 4. for nerve pain from the pinched nerve in your neck - gabapentin 300mg three times each day 5. for pain that is not responding to bizb-fvy-zhezwmi tylenol or your muscle relaxers - * oxycodone 5mg every 4 hours as needed * this medication will make you constipated * it will also WORSEN your gastroparesis & nausea * do not drive a car if taking this medicine * do not drink alcohol with oxycodone as this could lead to lethargy or even 6. for pneumonia - cefdinir 300mg twice daily x 5 days, first dose tonight 7. albuterol - use with plastic spacer device - 2 puffs every 4 hours as needed for cough / shortness of breath / wheezing Please talk with your family doctor about ways to maintain sobriety from the alcohol and also ways to stay smoke-free. Return to [facility] if - * you have uncontrollable vomiting * you have uncontrolled pain in your abdomen, chest or neck * you have worsening shortness of breath * you have weakness of your arms or legs * any other concerns It was our pleasure to care for you! Pending Studies at Discharge: No Stand-Alone Forms: My [facility], Pain - Opioid Pain Management, Smoking Cessation Medications and DC Order Prescriptions: New polyethylene glycol 3350 [Miralax] 17 gram Powder In Packet 17 g PO DAILY Qty: 1 0RF Rx Instructions: purchase [id number]-[id number] metoclopramide HCl 5 mg Tablet 5 mg PO AC Qty: 30 0RF Rx Instructions: for nausea/gastroparesis gabapentin 300 mg Capsule 300 mg PO TID Qty: 30 0RF cefdinir 300 mg Capsule 300 mg PO BID 5 Days Qty: 10 0RF Continued medical marijuana 1 puff inhalation HS PRN (Reason: Sleep) Rx Instructions: VAPE Creon 36,000-114,000- 180,000 unit capsule,delayed release(DR/EC) 3 cap PO TID 90 Days Qty: 810 3RF Rx Instructions: With meals potassium chloride [Klor-Con M20] 20 mEq tablet,ER particles/crystals 20 meq PO QAM Qty: 30 2RF folic acid 1 mg tablet See Rx Instructions .ROUTE .COMPLEX Qty: 90 3RF Dose Instruction: TAKE 1 TABLET BY MOUTH EVERY DAY IN THE MORNING Rx Instructions: TAKE 1 TABLET BY MOUTH EVERY DAY IN THE MORNING thiamine HCl (vitamin B1) 100 mg tablet 300 mg PO QAM magnesium citrate 100 mg tablet 100 mg PO QAM (DME) TENS unit and electrodes Combo Pack See Rx Instructions .Route Qty: 1 0RF Rx Instructions: As directed multivitamin Tablet 1 tab PO QAM mecobalamin (vitamin B12) [B12 Active] 1,000 mcg Tablet,Chewable 1,000 mcg PO QAM Eliquis 5 mg tablet 5 mg PO BID clindamycin phosphate 1 % gel 1 applic topical DAILY PRN (Reason: Acne) Rx Instructions: APPLY TOPICALLY DAILY FOR ACNE sumatriptan succinate 100 mg tablet 100 mg PO DAILY PRN (Reason: migraine/headache) Rx Instructions: TAKE 1 TABLET BY MOUTH NEEDED FOR MIGRAINE/HEADACHE. MAY REPEAT 1 DOSE AFTER 1-2 HOURS sucralfate 100 mg/mL suspension 1,000 mg PO QID PRN (Reason: stomach pain) calcium carbonate 600 mg calcium (1,500 mg) tablet 600 mg PO QAM pantoprazole 40 mg tablet,delayed release (DR/EC) 40 mg PO BID cholecalciferol (vitamin D3) 250 mcg (10,000 unit) capsule 250 mcg PO QAM Changed baclofen 20 mg tablet 20 mg PO BID PRN (Reason: neck pain/muscle spasm) Qty: 1 0RF methocarbamol 750 mg tablet 750 mg PO TID PRN (Reason: muscle pain/spasm) Qty: 1 0RF Discontinued promethazine 25 mg tablet 25 mg PO Q6H PRN (Reason: Nausea And Vomiting) Rx Instructions: TAKE 1 TABLET BY MOUTH EVERY 6 HOURS NEEDED FOR NAUSEA AND VOMITING ondansetron 4 mg tablet,disintegrating 4 mg PO Q6H PRN (Reason: Nausea And Vomiting) Rx Instructions: TAKE 1 TABLET BY MOUTH EVERY 6 HOURS NEEDED FOR NAUSEA No Action methylprednisolone 4 mg tablets,dose pack 4 mg PO .COMPLEX Qty: 21 0RF Rx Instructions: 4 mg PO Use as directed; clonazepam 1 mg tablet 0.5 mg PO BID 30 Days Qty: 30 0RF albuterol sulfate [Ventolin HFA] 90 mcg/actuation HFA aerosol inhaler 2 puff inhalation Q4H PRN (Reason: cough/wheeze/shortness of breath) Qty: 1 0RF nicotine [Nicoderm CQ] 21 mg/24 hr patch 24 hour 21 mg transdermal QAM 7 Days Qty: 7 0RF ondansetron 4 mg tablet,disintegrating 4 mg PO Q6H PRN (Reason: Nausea And Vomiting) 30 Days Qty: 60 2RF Rx Instructions: TAKE 1 TABLET BY MOUTH EVERY 6 HOURS NEEDED FOR NAUSEA fluoxetine 60 mg tablet 60 mg PO QAM Qty: 90 3RF Discharge Orders: Discharge Order (Routine); Ordered 08/25/23 Ordered By: Camilo Herrera/Other Patient Handouts: Metoclopramide Oral Tablet, Gastroparesis, Understanding Pancreatitis Admission Data Admit Date/Time: 08/20/23 17:54 Attending Provider: Camilo Guajardo Admit Provider: Camilo Guajardo Primary Care Provider: Damian Keller Other Providers: Camilo Martin Other Interventions: Discharge Summary Assessment (RN) Last Done: 08/25/23 14:29 Coding Level of Care Code 51486 INP/OBS DISCH >30 MIN Diagnoses Abdominal pain R10.13 Abdominal location: epigastric Acute pancreatitis K85.90 Acute pancreatitis complication: unspecified Pancreatitis type: unspecified pancreatitis type Chronic pancreatitis K86.1 Pneumonia J18.9 Acute alcoholic gastritis without hemorrhage K29.20 Chronicity: acute Gastritis bleeding: without bleeding Gastritis type: alcoholic Cannabis use disorder F12.90 Alcohol intoxication F10.920 Complication of substance-induced condition: uncomplicated Nausea & vomiting R11.2 Vomiting type: unspecified Generalized anxiety disorder with panic attacks F41.1; F41.0 Portal vein thrombosis I81 Degeneration of thoracolumbar intervertebral disc M51.35 Other cervical disc degeneration at C5-C6 level M50.322 Hypokalemia E87.6 Chest pain, pleuritic R07.81 Dyspnea R06.00 Tobacco abuse Z72.0
== END 2023-08-25 15:02 | disposition home or self-care (01) | DRG 438 ==
LOC: ED 06:11 → 3E 06:11 → SUATTDRO 13:52 → 3E 15:13
DX: Z79.01 Long term (current) use of anticoagulants; Z79.899 Other long term (current) drug therapy; M51.35 Other intervertebral disc degeneration, thoracolumbar region; Z91.148 Patient's other noncompliance with medication regimen for other reason; E87.6 Hypokalemia; F10.90 Alcohol use, unspecified, uncomplicated; Z88.5 Allergy status to narcotic agent; K85.90 Acute pancreatitis without necrosis or infection, unspecified; M50.322 Other cervical disc degeneration at C5-C6 level; J18.9 Pneumonia, unspecified organism; T47.8X6A Underdosing of other agents primarily affecting gastrointestinal system, initial encounter; F41.1 Generalized anxiety disorder; F17.210 Nicotine dependence, cigarettes, uncomplicated; K29.70 Gastritis, unspecified, without bleeding; I81 Portal vein thrombosis; K86.1 Other chronic pancreatitis; F12.90 Cannabis use, unspecified, uncomplicated; Y90.5 Blood alcohol level of 100-119 mg/100 ml; Z88.8 Allergy status to other drugs, medicaments and biological substances; F41.0 Panic disorder [episodic paroxysmal anxiety]

== ENCOUNTER 2023-10-05 13:59 | Observation (INO) ==
[2023-10-05] MEDS ORDERED: ONDANSETRON INJ 2 MG/ML 2 ML VIAL IV STA (14:34)
[2023-10-05] MEDS ORDERED: SODIUM CHLORIDE 0.9% 1,000 ML IV STA (14:34)
--- NOTE | 2023-10-05 14:34 | ED Triage Note ---
Date of Service October 05, 2023 Provider in Triage Author: Nacho Us History of Present Illness This patient was briefly evaluated while in triage. An abbreviated physical exam was performed. This patient is a 42-year-old Female who presents to the ED for evaluation of persistent nausea, vomiting and diarrhea. The patient reports that her mother recently got flu, and the patient developed similar symptoms. Patient has generalized abdominal pain. Patient is able to keep mason alka down. Patient also reports notable weakness. The patient rates her discomfort a 5 out of 10. Physical Exam CONSTITUTIONAL: Healthy and well nourished. Patient does not appear toxic. HEENT: Mucous membranes are dry. RESPIRATORY: Clear to auscultation bilaterally with no wheezing, crackles, rhonchi or stridor. CARDIOVASCULAR: Regular rate and rhythm with no murmurs, rubs or gallops. GASTROINTESTINAL: Bowel sounds present in all quadrants. Patient has generalized abdominal tenderness to palpation. INTEGUMENTARY: No rash or other significant dermatologic conditions noted. HEMATOLOGIC: No ecchymosis or petechiae. PSYCHIATRIC: Positive affect. NEUROLOGIC: No focal neurologic deficits noted. Initial orders for labs and / or imaging were placed and patient was placed in the waiting area until a bed is available. Please see further documentation for the full ED course.
[2023-10-05 14:57] LABS: Eosinophils # (auto) 0.05 K/uL (0.00-0.50); Eosinophils % (auto) 0.5 %; Hematocrit (blood only) 42.5 % (37.0-47.0); Hemoglobin 14.5 g/dl (12.0-16.0); Immature Granulocytes # (auto) 0.03 K/uL (0.01-0.20); Immature Granulocytes % (auto) 0.3 %; Lymphocytes # (auto) 3.19 K/uL (1.20-3.40); Lymphocytes % (auto) 30.8 %; Mean Corpuscular Hemoglobin 28.7 pg (25.0-34.0); Mean Corpuscular Hgb Conc 34.1 g/dL (32.0-36.0); Mean Corpuscular Volume 84.2 fL (80.0-100.0); Mean Platelet Volume 9.2 fL (9.4-12.4); Monocytes # (auto) 0.97 K/uL (0.11-0.59); Monocytes % (auto) 9.4 %; Neutrophils # (auto) 6.01 K/uL (1.40-6.50); Platelet Count 561 K/uL (130-400); RDW Coefficient of Variation 14.9 % (11.5-14.5); RDW Standard Deviation 45.3 fL (36.4-46.3); Red Blood Count 5.05 M/uL (4.20-5.40); White Blood Count 10.35 K/ul (4.8-10.8)
[2023-10-05 15:12] LABS: Albumin Globulin Ratio 1.5 (0.9-2); Albumin Level 4.6 gm/dl (3.4-5.0); Bilirubin,Total 0.6 mg/dl (0.2-1.0); Calcium 9.3 mg/dl (8.6-10.3); Creatinine Clr Calc Pharmacy 82.2 ml/min; Est GFR (African American) 116.9 ml/min; Est GFR (Non-African American) 100.9 ml/min; Globulin 3.1 gm/dl (2.5-4.0); Potassium 4.3 mmol/L (3.5-5.1); Total Protein 7.7 gm/dl (6.0-8.3)
[2023-10-05 15:28] LABS: Influenza A virus by PCR Negative (Neg); Influenza B virus by PCR Negative (Neg); RSV by PCR Negative (Neg); SARS CoV2 RNA(COVID-19) Ceph NEGATIVE (Negative)
[2023-10-05] MEDS ORDERED: OPTIRAY 320 500ml IV ONE (16:56)
--- NOTE | 2023-10-05 17:11 | Emergency Department Note ---
Impression & Plan Nausea & vomiting, Abdominal pain ED Provider Note HISTORY OF PRESENT ILLNESS: Patient is a 42-year-old female presenting with vomiting, diarrhea and abdominal pain. Patient reports that her she has been around her mother who was sick with the flu last week. She reports that she started having nausea, vomiting and diarrhea starting 7 days ago. She reports she is not getting any better. Has been unable to tolerate oral intake. She also been having generalized abdominal pain. Locates the pain diffusely across her abdomen and states "it feels like when I last had ulcers." Denies any melena or hematochezia. She states she has been feeling persistently nauseous. Denies any headache or changes in vision. Reports a fever 2 days ago. Denies any dysuria or hematuria. Denies any chest pain or shortness of breath. ROS: as above PHYSICAL EXAM: Constitutional: Patient appears in no acute distress. HENT: Head: Normocephalic and atraumatic. Eyes: EOMI, PERRL Mouth/Throat: Mucous membranes moist. Neck: Trachea midline. Neck supple. Cardiovascular: Tachycardic with regular rhythm. No murmurs, rubs or gallops. Intact distal pulses. Pulmonary/Chest: No respiratory distress. Breath sounds clear and equal bilaterally. No wheezes or rales. Abdominal: Abdomen soft, no rebound or guarding. Generalized tenderness to palpation. Musculoskeletal: No edema, tenderness or deformity noted. Skin: Warm and dry. No rash, erythema, pallor or cyanosis Psychiatric: Appropriate mood and affect for situation. Neurological: Alert and keenly responsive. CN II-XII grossly intact, moving all extremities equally and fully. MDM: - Vitals signs showed tachycardic. - History obtained via patient. Patient presents with vomiting, diarrhea and abdominal pain. Patient reports that her mother was sick with the flu last week. She reports that 7 days ago she started having similar symptoms of nausea, vomiting and diarrhea. She complains of generalized abdominal pain. Reports a fever 2 days ago. Denies any dysuria or hematuria. Denies any chest pain or shortness of breath. - Chronic conditions affecting care: PUD; chronic pancreatitis; anxiety/depression - Differential diagnoses include, but are not limited to: viral syndrome; cholecystitis; appendicitis; small bowel obstruction; electrolyte abnormality; dehydration - Order placed for continuous cardiac monitoring. At this time, monitor showed rate of 95 bpm with normal sinus rhythm, per my interpretation. - External medical records reviewed. - Laboratory workup interpreted by myself showed normal WBC; stable electrolytes; slightly elevated anion gap (13); normal lipase - Anion gap elevation likely secondary to recurrent vomiting - Viral respiratory panel negative - CT abdomen/pelvis with IV contrast negative for acute pathology. Noted to have findings consistent with chronic pancreatitis, but no evidence of peripancreatic inflammation or pseudocyst. - Patient given 1L NS and 4 mg IV zofran in ER. On reassessment, she is still complaining of nausea and pain. Given 1.25 mg IV droperidol. - Discussed results with the patient. She reports she no longer drinks and has had chronic pancreatitis for a number of years. After the droperidol dosing, patient reports still feeling nauseous and having abdominal pain. Discussed discharge with the patient, but she reports that she feels too sick to go home and she cannot go home like [id number] "will just be back." - Discussion was had with manager [employer] marketing about patient's case and need for admission for observation - Hospitalist consulted for admission - Patient admitted to [facility] service for further evaluation and management. ASSESSMENT AND PLAN: Diagnosis: nausea and vomiting; abdominal pain Plan: admit Past Med/Surg History Medical History (Updated 10/05/23 @ 20:07 by Kavitha Salgado MD) Cervical spondylosis Cervical radiculopathy Fracture of middle phalanx of finger of right hand Fracture of third metacarpal bone of right hand Distal radius fracture, right Fracture of distal phalanx of finger MCL sprain of right knee Toe fracture, left Sleeping difficulty Anxiety and depression Marijuana use Tendinitis of right rotator cuff Pancreatic pseudocyst Acute pancreatitis Alcohol abuse Pancreatitis alcoholic Acne Kidney failure 2009 (RESOLVED/SAW A MEAT [employer]RI[employer]) Liver enzyme elevation GERD (gastroesophageal reflux disease) Panic attacks Back pain, chronic Chronic neck pain Insomnia PTSD (post-traumatic stress disorder) Pancreatitis, alcoholic, acute Peptic ulcer disease 2 YEARS AGO DX Acute gallstone pancreatitis Hiatal hernia Migraines Surgical History History of breast biopsy History of esophagogastroduodenoscopy (EGD) History of esophagogastroduodenoscopy (EGD) History of cholecystectomy History of tooth extraction History of lumpectomy of right breast Family History Father Family history of diabetes mellitus Myocardial infarction Stroke Hypertension Grandfather (Maternal) Family history of diabetes mellitus Grandmother (Maternal) Family history of diabetes mellitus Hypertension Cancer Mother Hypothyroidism Grandfather (Paternal) Cancer Heart problem Grandmother (Paternal) Hypertension Denies family history of Ovarian cancer Prostate cancer Breast cancer Colorectal cancer Social History Smoking Status: Never smoker Tobacco Type: Cigarettes Cigarettes Per Day: Half a pack a day.; Second Hand Exposure: Yes; Do You Dip or Chew Tobacco: No; Hx Alcohol Use: Yes Alcohol type: wine Hx Substance Use: Yes Last Used Substance: Days (ago) Last Used Substance Other:: yesterday Substance Use Type Other:: Smokes [facility] Preferred Language: Serbian Communication Ability: Effective Visual Impairment: No Limitations Hearing Ability: Normal Press Assistant Required: No Beliefs That Will Affect Care: None marital status: Single Current Living Situation: Parent Current Living Situation Comment: lives at home with mom current occupational status: employed current occupation: at [employer] How many Children do You have: 0 Feels Safe at Home: Yes Childhood Exposure to Second-Hand Smoke: No Diet: regular Diet Comment: regular Dental Care, Regularly: Yes Physical Activity Frequency: Does not Exercise Seatbelt Use: always Sunscreen Use: Yes Do you think of yourself as: straight/heterosexual Assistive Devices: None Allergies Allergies Allergy/AdvReac Type Severity Reaction Status Date / Time buspirone [From BuSpar] Allergy Severe Unconscious, Verified 09/24/23 15:06 seizures quetiapine [From Seroquel] Allergy Severe Unconscious, Verified 09/24/23 15:06 seizures citalopram [From Celexa] AdvReac Intermediate Vomiting Verified 09/24/23 15:06 morphine AdvReac Intermediate "MAKES ME Verified 09/24/23 15:06 SICK(VOMITING)" vilazodone [From Viibryd] AdvReac Vomiting Verified 09/24/23 15:06 Home Meds Home Medications Medication Instructions Recorded Confirmed multivitamin 1 tab PO QAM 03/18/19 09/24/23 mecobalamin (vitamin B12) 1,000 1,000 mcg PO QAM 11/10/19 09/24/23 mcg chewable tablet (B12 Active) apixaban 5 mg tablet (Eliquis) 5 mg PO BID 04/12/21 09/24/23 thiamine HCl (vitamin B1) 100 mg 300 mg PO QAM 04/17/21 09/24/23 tablet magnesium citrate 100 mg tablet 100 mg PO QAM 05/23/22 09/24/23 clindamycin phosphate 1 % topical 1 applic topical DAILY PRN Acne 02/17/23 09/24/23 gel medical marijuana 1 puff inhalation HS PRN Sleep 05/21/23 09/24/23 calcium carbonate 600 mg calcium 600 mg PO QAM 08/18/23 09/24/23 (1,500 mg) tablet cholecalciferol (vitamin D3) 250 250 mcg PO QAM 08/18/23 09/24/23 mcg (10,000 unit) capsule pantoprazole 40 mg tablet,delayed 40 mg PO BID 08/18/23 09/24/23 release sucralfate 100 mg/mL oral 1,000 mg PO QID PRN stomach pain 08/18/23 09/24/23 suspension sumatriptan succinate 100 mg tablet 100 mg PO DAILY PRN 08/18/23 09/24/23 migraine/headache Previous Rx's Medication Instructions Recorded [id number] 3 cap PO TID Abdominal Discomfort 09/16/22 36,000-114,000-180,000 unit 90 days #810 caps capsule,delay rel (Creon) TENS unit and electrodes combo pack #1 ea 07/10/23 potassium chloride 20 mEq 20 meq PO QAM #30 tabs 08/12/23 tablet,extended release(part/cryst) (Klor-Con M) folic acid 1 mg tablet See Rx Instructions .Route 08/18/23 .COMPLEX #90 tabs baclofen 20 mg tablet 20 mg PO BID PRN neck pain/muscle 08/25/23 spasm #1 tab albuterol sulfate 90 mcg/actuation 2 puff inhalation Q4H PRN 08/27/23 aerosol inhaler (Ventolin HFA) cough/wheeze/shortness of breath #1 inhaler fluoxetine 60 mg tablet 60 mg PO QAM #90 tabs 08/27/23 ondansetron 4 mg disintegrating 4 mg PO Q6H PRN Nausea And 08/27/23 tablet Vomiting 30 days #60 tabs gabapentin 600 mg tablet 600 mg PO TID 30 days #90 tabs 09/02/23 promethazine 25 mg tablet 25 mg PO Q6H PRN nausea and 09/08/23 vomiting #30 tabs methocarbamol 750 mg tablet See Rx Instructions .Route 09/09/23 .COMPLEX #90 tabs nicotine 14 mg/24 hr daily 1 patch transdermal Q24H #14 ea 09/12/23 transdermal patch metoclopramide HCl 5 mg tablet 5 mg PO AC #30 tabs 09/17/23 clonazepam 1 mg tablet 0.5 mg (1/2 x 1 mg) PO BID 30 days 09/23/23 #30 tabs nicotine (polacrilex) 4 mg gum 4 mg buccal Q2H #20 ea 09/24/23 pneumoc 20-savannah conj-dip cr(PF) 0.5 0.5 ml IM ONCE #0.5 mL 09/24/23 mL IM syringe (Prevnar 20 (PF)) Results & Data (ED) Vital Signs Vital Signs - 24 hr 10/05/23 14:33 10/05/23 17:55 10/05/23 19:18 Temperature 36.7 C Temperature Source Temporal Artery Scan Pulse Rate 135 H Pulse Rate [Radial] 96 H 95 H Pulse Rhythm [Radial] Regular Regular Pulse Strength [Radial] Normal Respiratory Rate 18 18 18 Respiratory Effort / Characteristics Non-Labored Spontaneous Non-Labored Non-Labored Spontaneous Respiratory Depth Normal Normal Normal Respiratory Pattern Regular Regular Blood Pressure 127/86 Blood Pressure [Left Arm] 130/89 123/91 Blood Pressure Mean 99 Blood Pressure Mean [Left Arm] 102 101 Blood Pressure Position Sitting Pulse Oximetry 96 97 100 Oxygen Delivery Method Room Air Room Air Room Air Sepsis Recent Fever Within 48 Hours No Sepsis New/Unexplained Change in Mental Status No Sepsis Action Taken by Nursing No Action Required Laboratory Data 10/05/23 14:38 10/05/23 14:38 Lab Results 10/05/23 10/05/23 Range/Units 14:38 14:44 WBC 10.35 (4.8-10.8) K/ul RBC 5.05 (4.20-5.40) M/uL Hgb 14.5 (12.0-16.0) g/dl Hct 42.5 (37.0-47.0) % MCV 84.2 (80.0-100.0) fL MCH 28.7 (25.0-34.0) pg MCHC 34.1 (32.0-36.0) g/dL RDW Std Deviation 45.3 (36.4-46.3) fL RDW Coeff of Jessica 14.9 H (11.5-14.5) % Plt Count 561 H (130-400) K/uL MPV 9.2 L (9.4-12.4) fL Immature Gran % (Auto) 0.3 % Neut % (Auto) 58.0 % Lymph % (Auto) 30.8 % [place] % (Auto) 9.4 % Eos % (Auto) 0.5 % Baso % (Auto) 1.0 % Neut # (Auto) 6.01 (1.40-6.50) K/uL Lymph # (Auto) 3.19 (1.20-3.40) K/uL [place] # (Auto) 0.97 H (0.11-0.59) K/uL Eos # (Auto) 0.05 (0.00-0.50) K/uL Baso # (Auto) 0.10 (0.00-0.20) K/uL Immature Gran # (Auto) 0.03 (0.01-0.20) K/uL Sodium 140 (136-145) mmol/L Potassium 4.3 (3.5-5.1) mmol/L Chloride 100 (98-107) mmol/L Carbon Dioxide 27 (21-32) mmol/L Anion Gap 13 H (3-11) BUN 19 (6-23) mg/dl Creatinine 0.73 (0.6-1.2) mg/dl Est Cr Clr Drug Dosing 82.2 ml/min Est GFR ( Amer) 116.9 ml/min Est GFR (Non-Af Amer) 100.9 ml/min BUN/Creatinine Ratio 26.0 H (10-20) Glucose 94 (70-99(Fasting)) mg/dl Calcium 9.3 (8.6-10.3) mg/dl Total Bilirubin 0.6 (0.2-1.0) mg/dl AST 22 (13-39) U/L ALT 7 (7-52) U/L Alkaline Phosphatase 149 H (34-104) U/L Total Protein 7.7 (6.0-8.3) gm/dl Albumin 4.6 (3.4-5.0) gm/dl Globulin 3.1 (2.5-4.0) gm/dl Albumin/Globulin Ratio 1.5 (0.9-2) Lipase 53 (11-82) U/L Adenovirus (PCR) Not Detected (NotDetected) B. pertussis DNA (PCR) Not Detected (NotDetected) B.parapertussis DNA PCR Not Detected (NotDetected) C. pneumoniae DNA (PCR) Not Detected (NotDetected) Coronavirus OC43 (PCR) Not Detected (NotDetected) Coronavirus HKU1 (PCR) Not Detected (NotDetected) Coronavirus 229E (PCR) Not Detected (NotDetected) SARS-CoV-2 (PCR) NEGATIVE Not Detected (Negative) Coronavirus NL63 (PCR) Not Detected (NotDetected) Human Metapneumovir PCR Not Detected (NotDetected) Influenza Type A (PCR) Negative Not Detected (Neg) Influenza Type B (PCR) Negative Not Detected (Neg) M. pneumoniae (PCR) Not Detected (NotDetected) Parainfluenza 1 (PCR) Not Detected (NotDetected) Parainfluenza 2 (PCR) Not Detected (NotDetected) Parainfluenza 3 (PCR) Not Detected (NotDetected) Parainfluenza 4 (PCR) Not Detected (NotDetected) RSV (RT-PCR) Negative (Neg) RSV (PCR) Not Detected (NotDetected) Entero/Rhino (PCR) Not Detected (NotDetected) Administered Medications Sodium Chloride (Nss) 1,000 mls @ 999 mls/hr IV .Q1H1M ONE Stop: 10/05/23 20:11 Last Admin: 10/05/23 19:20 Dose: 999 mls/hr Documented By: RAJINDER Discontinued Medications Droperidol (Droperidol 5 Mg/2 Ml Vial) 1.25 mg IV ONE STA Stop: 10/05/23 18:36 Last Admin: 10/05/23 19:21 Dose: 1.25 mg Documented By: RAJINDER Sodium Chloride (Nss) 1,000 mls @ 999 mls/hr IV .Q1H1M STA Stop: 10/05/23 15:34 Last Infusion: 10/05/23 18:15 Dose: Infused Documented By: Admin: 10/05/23 16:26 Dose: 999 mls/hr Documented By: RAJINDER Pantoprazole Sodium 40 mg/ (Syringe) 10 mls @ 5 mls/min IV NOW ONE Stop: 10/05/23 17:24 Last Admin: 10/05/23 18:27 Dose: 5 mls/min Documented By: ESTUARDO Ioversol (Optiray 320 500ml) 88 ml IV ONCE ONE Stop: 10/05/23 16:57 Last Admin: 10/05/23 16:57 Dose: 88 ml Documented By: DAVION Ondansetron HCl (Ondansetron Inj 2 Mg/Ml 2 Ml Vial) 4 mg IV NOW STA Stop: 10/05/23 14:35 Last Admin: 10/05/23 16:26 Dose: 4 mg Documented By: RAJINDER Imaging Data Radiologist's Impression: Abdomen/Pelvis CT 10/05/23 16:41 CT OF THE ABDOMEN AND PELVIS WITH CONTRAST CLINICAL HISTORY: Generalized abdominal pain and vomiting. COMPARISON STUDY: CT of the abdomen and pelvis August 23, 2023. MRI of the abdomen August 24, 2023. TECHNIQUE: Following IV administration of 88 mL of Optiray, axial images of the abdomen and pelvis were obtained from the lung bases to the proximal femurs. Images were reviewed in the axial, sagittal, and coronal planes. IV contrast was administered without complication. Automated exposure control was utilized for the study. A dose lowering technique was utilized adhering to the principles of ALARA. CT DOSE: 527.55 mGy.cm FINDINGS: Lung bases are unremarkable. No pneumatosis, free air or venous gas is present. There is no significant biliary ductal dilatation status post cholecystectomy. Calcifications within the pancreatic head and uncinate process are unchanged. Apparent subtle stranding adjacent the pancreas is similar to prior exams. No definite peripancreatic inflammation. There is no pancreatic ductal dilatation. No peripancreatic fluid collections are present. Subtle mass effect upon the portosplenic confluence remains unchanged. Intrauterine device is in place. No evidence for a bowel obstruction. Apparent wall thickening of the left colon is likely due to underdistention. The appendix is normal. There is no hydronephrosis. Spleen, adrenal glands, kidneys are unremarkable. IMPRESSION: 1. No acute process within the abdomen or pelvis. 2. Findings consistent with chronic pancreatitis. Equivocal adjacent stranding adjacent to the pancreas is similar to prior exams. No definite peripancreatic inflammation. No peripancreatic fluid collections. 3. No bowel obstruction. No definite bowel wall thickening. Equivocal left colon wall thickening is likely due to underdistention. ACT 112: Negative or not required by law. Electronically signed by: José Miguel Bruno M.D. 10/05/2023 5:19 PM Discharge Plan Visit Data Chief Complaint: GI Assessment Stated Complaint: VOMITING, FEVER. DIARRHEA ED Provider: Kavitha Salgado Discharge Problem: Nausea & vomiting, Abdominal pain Forms Stand Alone Forms: [facility] [employer] Prescriptions Prescriptions: No Action medical marijuana 1 puff inhalation HS PRN (Reason: Sleep) Rx Instructions: VAPE Creon 36,000-114,000- 180,000 unit capsule,delayed release(DR/EC) 3 cap PO TID 90 Days Qty: 810 3RF Rx Instructions: With meals potassium chloride [Klor-Con M20] 20 mEq tablet,ER particles/crystals 20 meq PO QAM Qty: 30 2RF folic acid 1 mg tablet See Rx Instructions .ROUTE .COMPLEX Qty: 90 3RF Dose Instruction: TAKE 1 TABLET BY MOUTH EVERY DAY IN THE MORNING Rx Instructions: TAKE 1 TABLET BY MOUTH EVERY DAY IN THE MORNING gabapentin 600 mg tablet 600 mg PO TID 30 Days Qty: 90 0RF promethazine 25 mg tablet 25 mg PO Q6H PRN (Reason: nausea and vomiting) Qty: 30 3RF methocarbamol 750 mg tablet See Rx Instructions .ROUTE .COMPLEX Qty: 90 0RF Dose Instruction: TAKE 1 TABLET BY MOUTH THREE TIMES A DAY Rx Instructions: TAKE 1 TABLET BY MOUTH THREE TIMES A DAY nicotine 14 mg/24 hr patch 24 hour 1 patch transdermal Q24H Qty: 14 1RF metoclopramide HCl 5 mg tablet 5 mg PO AC Qty: 30 0RF Rx Instructions: for nausea/gastroparesis clonazepam 1 mg tablet 0.5 mg PO BID 30 Days Qty: 30 0RF albuterol sulfate [Ventolin HFA] 90 mcg/actuation HFA aerosol inhaler 2 puff inhalation Q4H PRN (Reason: cough/wheeze/shortness of breath) Qty: 1 0RF ondansetron 4 mg tablet,disintegrating 4 mg PO Q6H PRN (Reason: Nausea And Vomiting) 30 Days Qty: 60 2RF Rx Instructions: TAKE 1 TABLET BY MOUTH EVERY 6 HOURS NEEDED FOR NAUSEA fluoxetine 60 mg tablet 60 mg PO QAM Qty: 90 3RF thiamine HCl (vitamin B1) 100 mg tablet 300 mg PO QAM magnesium citrate 100 mg tablet 100 mg PO QAM nicotine (polacrilex) 4 mg gum 4 mg buccal Q2H Qty: 20 0RF Prevnar 20 (PF) 0.5 mL syringe 0.5 ml IM ONCE Qty: 0.5 0RF (DME) TENS unit and electrodes Combo Pack See Rx Instructions .Route Qty: 1 0RF Rx Instructions: As directed multivitamin Tablet 1 tab PO QAM mecobalamin (vitamin B12) [B12 Active] 1,000 mcg Tablet,Chewable 1,000 mcg PO QAM Eliquis 5 mg tablet 5 mg PO BID clindamycin phosphate 1 % gel 1 applic topical DAILY PRN (Reason: Acne) Rx Instructions: APPLY TOPICALLY DAILY FOR ACNE sumatriptan succinate 100 mg tablet 100 mg PO DAILY PRN (Reason: migraine/headache) Rx Instructions: TAKE 1 TABLET BY MOUTH NEEDED FOR MIGRAINE/HEADACHE. MAY REPEAT 1 DOSE AFTER 1-2 HOURS sucralfate 100 mg/mL suspension 1,000 mg PO QID PRN (Reason: stomach pain) calcium carbonate 600 mg calcium (1,500 mg) tablet 600 mg PO QAM pantoprazole 40 mg tablet,delayed release (DR/EC) 40 mg PO BID cholecalciferol (vitamin D3) 250 mcg (10,000 unit) capsule 250 mcg PO QAM baclofen 20 mg tablet 20 mg PO BID PRN (Reason: neck pain/muscle spasm) Qty: 1 0RF Referrals Referrals: Kenzie Bhatt CRNP [Primary Care Provider] -
--- NOTE | 2023-10-05 17:21 | CT Scan Report ---
CT OF THE ABDOMEN AND PELVIS WITH CONTRAST CLINICAL HISTORY: Generalized abdominal pain and vomiting. COMPARISON STUDY: CT of the abdomen and pelvis August 23, 2023. MRI of the abdomen August 24. TECHNIQUE: Following IV administration of 88 mL of Optiray, axial images of the abdomen and pelvis we re obtained from the lung bases to the proximal femurs. Images were reviewed in the axial, sagittal, and coronal planes. IV contrast was administered without complication. Automated exposure control wa s utilized for the study. A dose lowering technique was utilized adhering to the principles of ALARA . CT DOSE: 527.55 mGy.cm FINDINGS: Lung bases are unremarkable. No pneumatosis, free air or venous gas is present. There is no significant biliary ductal dilatation status post cholecystectomy. Calcifications within the pancrea tic head and uncinate process are unchanged. Apparent subtle stranding adjacent the pancreas is simil ar to prior exams. No definite peripancreatic inflammation. There is no pancreatic ductal dilatation. No peripancreatic fluid collections are present. Subtle mass effect upon the portosplenic confluence remains unchanged. Intrauterine device is in place. No evidence for a bowel obstruction. Apparent wa ll thickening of the left colon is likely due to underdistention. The appendix is normal. There is no hydronephrosis. Spleen, adrenal glands, kidneys are unremarkable. IMPRESSION: 1. No acute process within the abdomen or pelvis. 2. Findings consistent with chronic pancreatitis. Equivocal adjacent stranding adjacent to the pancre as is similar to prior exams. No definite peripancreatic inflammation. No peripancreatic fluid collec tions. 3. No bowel obstruction. No definite bowel wall thickening. Equivocal left colon wall thickening is l ikely due to underdistention. ACT 112: Negative or not required by law. Electronically signed by: José Miguel Bruno M.D. 10/05/2023 5:19 PM
[2023-10-05] MEDS ORDERED: PANTOprazole 40 MG in SYRINGE 0 ML IV ONE (17:23)
[2023-10-05 17:51] LABS: Adenovirus PCR Not Detected (NotDetected); Bordetella parapertussis PCR Not Detected (NotDetected); Bordetella pertussis PCR Not Detected (NotDetected); Chlamydia pneumoniae PCR Not Detected (NotDetected); Coronavirus 229E PCR Not Detected (NotDetected); Coronavirus CoV-2 (COVID19)PCR Not Detected (NotDetected); Coronavirus HKU1 PCR Not Detected (NotDetected); Coronavirus NL63 PCR Not Detected (NotDetected); Coronavirus OC43PCR Not Detected (NotDetected); Human Metapneumovirus PCR Not Detected (NotDetected); Influenza A PCR Not Detected (NotDetected); Influenza B PCR Not Detected (NotDetected); Mycoplasma pneumoniae PCR Not Detected (NotDetected); Parainfluenza Virus 1 PCR Not Detected (NotDetected); Parainfluenza Virus 2 PCR Not Detected (NotDetected); Parainfluenza Virus 3 PCR Not Detected (NotDetected); Parainfluenza Virus 4 PCR Not Detected (NotDetected); Respiratory Syncytial VirusPCR Not Detected (NotDetected); Rhinovirus/Enterovirus PCR Not Detected (NotDetected)
[2023-10-05] MEDS ORDERED: DROPERIDOL 5 MG/2 ML VIAL IV STA (18:35)
[2023-10-05] MEDS ORDERED: SODIUM CHLORIDE 0.9% 1,000 ML IV ONE (19:11)
--- NOTE | 2023-10-05 20:38 | History & Physical Report ---
Date of Service October 05, 2023 Assessment & Plan (1) Intractable nausea and vomiting: Plan: Abdominal pain and N/V/D x 1 week Patient's mother was recently sick with the flu No leukocytosis; afebrile BioFire negative Lipase WNL UA negative; urine hCG ordered, pending Electrolytes WNL; continue to monitor in the setting of GI losses EKG ordered, pending Elevated alk phos at 149 Suspect N/V secondary to viral infection +/- chronic pancreatitis; ?SMA syndrome Continuous telemetry monitoring Continue IV fluid resuscitation with LR at 150 mL/hr x 3 Protonix 40 mg IV BID IV acetaminophen as needed for pain/fever IV Zofran as needed for nausea/vomiting A.m. CBC, BMP (2) Abdominal pain: Plan: Generalized abdominal pain Patient is s/p cholecystectomy Abdomen/pelvic CT revealed no acute processes within the abdomen; normal appendix Clinically, suspect hyperalgesia with components of malabsorption and/or gastroparesis (patient began Reglan after [facility] admission Jul 2023) Celiac disease panel ordered, pending Acetaminophen IV (as above) (3) Chronic pancreatitis: Plan: Continue Creon (4) Tobacco abuse: Plan: Current tobacco cigarette smoker; 0.5 PPD Expiratory rhonchi and productive cough on physical exam; suspect potential asthmatic bronchitis CXR ordered, pending Declined nicotine patch as it keeps her up at night Counseling regarding smoking cessation Albuterol as needed (5) History of ETOH abuse: Plan: Patient denies recent alcohol use Last drink Jul 2023 (6) Anticoagulant long-term use: Plan: Patient is on Eliquis BID for a DVT 6-7y ago, per patient She denies history of PEs (7) GERD (gastroesophageal reflux disease): Plan: Pantoprazole (as above) (8) Generalized anxiety disorder with panic attacks: Plan: Continue fluoxetine Recent discussions with PCP about tapering down on clonazepam (9) Chronic neck pain: Plan: Continue gabapentin, Robaxin Baclofen as needed (10) Polypharmacy: (11) Back pain, chronic: Plan Disposition: Admit to MedSurg telemetry Full code Full liquid diet as tolerated (recommend celiac diet pending screening) VTE PPx: Continue Eliquis History of Present Illness Chief Complaint: Abdominal pain, N/V/D Primary Care Provider: MARYBEL Fuentes is a 42yo female with PMH of chronic pancreatitis, s/p cholecystectomy, alcohol use disorder, anxiety with panic attacks, GERD, gastritis, current tobacco cigarette smoker, chronic migraine, chronic neck pain, chronic back pain, and insomnia. She presented for abdominal pain and N/V/D x 1 week. She reports that she was recently with her mother, who had the flu. Patient endorses generalized abdominal pain, and characterizes it as dull, achy, constant. She rates the pain 8/10 at time of admission. She has been taking Phenergan at home for nausea. She also tried taking Tylenol, but reports she was unable to keep it down. Not tolerating solids. Tolerating some liquids. Patient manages her own medications. She reports that she took her morning medications, and did not throw them up. She denies any recent changes in medications. Patient is on Eliquis for DVT PPx; history of DVT. In regard to LMP, patient reports that she uses an IUD and does not have regular menstrual cycles. Patient is a current everyday tobacco cigarette smoker; 0.5 PPD; she also smokes medical marijuana. She has a history of alcohol abuse, but reports that she has no recent alcohol use and that she quit drinking. Patient had pneumonia 6 weeks ago. Patient's vitals are stable at time of admission. ED course: Pantoprazole 40 mg IV Droperidol 1.25 mg IV Acetaminophen 1000 mg IV NSS 1000 mL IV ROS: Patient endorses intermittent fever, chills, dizziness, lightheadedness, productive cough (dark green), chest pain with coughing, generalized abdominal pain, N/V/D, and numbness/tingling going down left arm (due to pinched nerve in neck, per patient). Patient denies nightsweats, HOU, chest palpitations, SOB, hematemesis, hemoptysis, or blood in the stool/urine, burning with urination, or dysuria. Please see Dr. Gore's attestation for any changes to treatment plan. Allergies Allergy/AdvReac Type Severity Reaction Status Date / Time buspirone [From BuSpar] Allergy Severe Unconscious, Verified 09/24/23 15:06 seizures quetiapine [From Seroquel] Allergy Severe Unconscious, Verified 09/24/23 15:06 seizures citalopram [From Celexa] AdvReac Intermediate Vomiting Verified 09/24/23 15:06 morphine AdvReac Intermediate "MAKES ME Verified 09/24/23 15:06 SICK(VOMITING)" vilazodone [From Viibryd] AdvReac Vomiting Verified 09/24/23 15:06 Home Medications Medication Instructions Recorded Confirmed Type multivitamin 1 tab PO QAM 03/18/19 10/05/23 History mecobalamin (vitamin B12) 1,000 1,000 mcg PO QAM 11/10/19 10/05/23 History mcg chewable tablet (B12 Active) apixaban 5 mg tablet (Eliquis) 5 mg PO BID 04/12/21 10/05/23 History thiamine HCl (vitamin B1) 100 mg 300 mg PO QAM 04/17/21 10/05/23 History tablet magnesium citrate 100 mg tablet 100 mg PO QAM 05/23/22 10/05/23 History ueeqyk-opsksycz-rqcnaxx 3 cap PO TID Abdominal Discomfort 09/16/22 10/05/23 Rx 36,000-114,000-180,000 unit 90 days #810 caps capsule,delay rel (Creon) clindamycin phosphate 1 % topical 1 applic topical DAILY PRN Acne 02/17/23 10/05/23 History gel medical marijuana 1 puff inhalation HS PRN Sleep 05/21/23 09/24/23 History TENS unit and electrodes combo pack #1 ea 07/10/23 09/05/23 Rx potassium chloride 20 mEq 20 meq PO QAM #30 tabs 08/12/23 10/05/23 Rx tablet,extended release(part/cryst) (Klor-Con M) calcium carbonate 600 mg calcium 600 mg PO QAM 08/18/23 10/05/23 History (1,500 mg) tablet cholecalciferol (vitamin D3) 250 250 mcg PO QAM 08/18/23 10/05/23 History mcg (10,000 unit) capsule folic acid 1 mg tablet See Rx Instructions .Route 08/18/23 10/05/23 Rx .COMPLEX #90 tabs pantoprazole 40 mg tablet,delayed 40 mg PO BID 08/18/23 10/05/23 History release sumatriptan succinate 100 mg tablet 100 mg PO DAILY PRN 08/18/23 10/05/23 History migraine/headache baclofen 20 mg tablet 20 mg PO BID PRN neck pain/muscle 08/25/23 10/05/23 Rx spasm #1 tab albuterol sulfate 90 mcg/actuation 2 puff inhalation Q4H PRN 08/27/23 10/05/23 Rx aerosol inhaler (Ventolin HFA) cough/wheeze/shortness of breath #1 inhaler fluoxetine 60 mg tablet 60 mg PO QAM #90 tabs 08/27/23 10/05/23 Rx ondansetron 4 mg disintegrating 4 mg PO Q6H PRN Nausea And 08/27/23 10/05/23 Rx tablet Vomiting 30 days #60 tabs gabapentin 600 mg tablet 600 mg PO TID 30 days #90 tabs 09/02/23 10/05/23 Rx promethazine 25 mg tablet 25 mg PO Q6H PRN nausea and 09/08/23 10/05/23 Rx vomiting #30 tabs methocarbamol 750 mg tablet See Rx Instructions .Route 09/09/23 10/05/23 Rx .COMPLEX #90 tabs metoclopramide HCl 5 mg tablet 5 mg PO AC #30 tabs 09/17/23 10/05/23 Rx clonazepam 1 mg tablet 0.5 mg (1/2 x 1 mg) PO BID 30 days 09/23/23 10/05/23 Rx #30 tabs nicotine (polacrilex) 4 mg gum 4 mg buccal Q2H #20 ea 09/24/23 10/05/23 Rx Past Med/Surg History Medical History (Updated 10/05/23 @ 22:06 by Bunny Ramon PA-C) Cervical spondylosis Cervical radiculopathy Fracture of middle phalanx of finger of right hand Fracture of third metacarpal bone of right hand Distal radius fracture, right Fracture of distal phalanx of finger MCL sprain of right knee Toe fracture, left Sleeping difficulty Anxiety and depression Marijuana use Tendinitis of right rotator cuff Pancreatic pseudocyst Acute pancreatitis Alcohol abuse Pancreatitis alcoholic Acne Kidney failure 2009 (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) Liver enzyme elevation GERD (gastroesophageal reflux disease) Panic attacks Back pain, chronic Chronic neck pain Insomnia PTSD (post-traumatic stress disorder) Pancreatitis, alcoholic, acute Peptic ulcer disease 2 YEARS AGO DX Acute gallstone pancreatitis Hiatal hernia Migraines Surgical History History of breast biopsy History of esophagogastroduodenoscopy (EGD) History of esophagogastroduodenoscopy (EGD) History of cholecystectomy History of tooth extraction History of lumpectomy of right breast Family History Father Family history of diabetes mellitus Myocardial infarction Stroke Hypertension Grandfather (Maternal) Family history of diabetes mellitus Grandmother (Maternal) Family history of diabetes mellitus Hypertension Cancer Mother Hypothyroidism Grandfather (Paternal) Cancer Heart problem Grandmother (Paternal) Hypertension Denies family history of Ovarian cancer Prostate cancer Breast cancer Colorectal cancer Social History Smoking Status: Former smoker Tobacco Type: Cigarettes Cigarettes Per Day: Half a pack a day.; Second Hand Exposure: Yes; Do You Dip or Chew Tobacco: No; Hx Alcohol Use: No Hx Substance Use: Yes Last Used Substance: Hours (ago) Last Used Substance Other:: yesterday Substance Use Type Other:: Smokes Kurt Preferred Language: [place] Communication Ability: Effective Visual Impairment: No Limitations Hearing Ability: Normal 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 Beliefs That Will Affect Care: None marital status: Single Current Living Situation: Parent Current Living Situation Comment: lives at home with mom current occupational status: employed current occupation: at [employer] How many Children do You have: 0 Feels Safe at Home: Yes Safety Concerns: Feels Safe At This Time Childhood Exposure to Second-Hand Smoke: No Diet: regular Diet Comment: regular Dental Care, Regularly: Yes Physical Activity Frequency: Does not Exercise Seatbelt Use: always Sunscreen Use: Yes Do you think of yourself as: straight/heterosexual Assistive Devices: None Review of Systems Review of Systems: See HPI above Physical Exam Physical Exam: General: Anxious; patient appears in moderate abdominal pain; productive cough; diaphoretic; pallor; cooperative HEENT: normocephalic, atraumatic; no scleral icterus; PERRLA w/ EOMs intact; dry mucus membrane; vision and hearing grossly intact Neck: supple; no lymphadenopathy; trachea midline Skin: warm, dry without signs of tenting; no cyanosis; no rashes, bruising, lesions, or erythema noted CV: chest wall NTP; RRR; S1/S2 normal; no murmurs/rubs/gallops; pulses intact and symmetric at radial, DP, and PT Lungs: Mild respiratory distress; symmetrical chest wall expansion; expiratory rhonchi across all lung ramirez bilaterally; patient cannot take a deep breath without coughing ABD: Soft, NTP; BS present; no rebound/guarding; no distention; negative CVA tenderness MSK: no tics or fasciculations; no edema noted in the LEs b/l, nonerythematous Neuro: A&Ox3; anxious; normal mood and affect; fluent speech; no focal deficits; sensation grossly intact in the LEs B/L Results & Data Results & Data Vital Signs (Past 12 Hours) Vital Signs Temp Pulse Pulse Resp BP BP Pulse Ox 10/05/23 19:18 95 H 18 123/91 100 10/05/23 17:55 96 H 18 130/89 97 10/05/23 14:33 36.7 C 135 H 18 127/86 96 O2 Del Method 10/05/23 19:18 Room Air 10/05/23 17:55 Room Air 10/05/23 14:33 Room Air Laboratory Results Abnormal lab results 10/05/23 10/05/23 Range/Units 14:38 Unknown RDW Coeff of Jessica 14.9 H (11.5-14.5) % Plt Count 561 H (130-400) K/uL MPV 9.2 L (9.4-12.4) fL Turner # (Auto) 0.97 H (0.11-0.59) K/uL Anion Gap 13 H (3-11) BUN/Creatinine Ratio 26.0 H (10-20) Alkaline Phosphatase 149 H (34-104) U/L Ur Specific [place] > 1.045 H (1.000-1.030) Urine Ketones Trace H (Negative) Urine Blood Trace H (Negative) U Epithel Cells (Auto) >30 H (0-5) /lpf Diagnostic Findings Abdomen/Pelvis CT 10/05/23 16:41 CT OF THE ABDOMEN AND PELVIS WITH CONTRAST CLINICAL HISTORY: Generalized abdominal pain and vomiting. COMPARISON STUDY: CT of the abdomen and pelvis August 23, 2023. MRI of the abdomen August 24, 2023. TECHNIQUE: Following IV administration of 88 mL of Optiray, axial images of the abdomen and pelvis were obtained from the lung bases to the proximal femurs. Images were reviewed in the axial, sagittal, and coronal planes. IV contrast was administered without complication. Automated exposure control was utilized for the study. A dose lowering technique was utilized adhering to the principles of ALARA. CT DOSE: 527.55 mGy.cm FINDINGS: Lung bases are unremarkable. No pneumatosis, free air or venous gas is present. There is no significant biliary ductal dilatation status post cholecystectomy. Calcifications within the pancreatic head and uncinate process are unchanged. Apparent subtle stranding adjacent the pancreas is similar to prior exams. No definite peripancreatic inflammation. There is no pancreatic ductal dilatation. No peripancreatic fluid collections are present. Subtle mass effect upon the portosplenic confluence remains unchanged. Intrauterine device is in place. No evidence for a bowel obstruction. Apparent wall thickening of the left colon is likely due to underdistention. The appendix is normal. There is no hydronephrosis. Spleen, adrenal glands, kidneys are unremarkable. IMPRESSION: 1. No acute process within the abdomen or pelvis. 2. Findings consistent with chronic pancreatitis. Equivocal adjacent stranding adjacent to the pancreas is similar to prior exams. No definite peripancreatic inflammation. No peripancreatic fluid collections. 3. No bowel obstruction. No definite bowel wall thickening. Equivocal left colon wall thickening is likely due to underdistention. ACT 112: Negative or not required by law. Electronically signed by: José Miguel Bruno M.D. 10/05/2023 5:19 PM Code Status & VTE Plan Code Status Full code VTE Prophylaxis Plan VTE Prophylaxis will be ordered: Yes Supervising Physician Co-Signing Physician Notes Attending addendum: I have physically seen this patient, have supervised the BUFFY's activities, and agree with the H&P unless as otherwise noted. Assessment and Plan: Intractable nausea, vomiting and abdominal pain- Symptoms worsening over the past week BioFire test negative Patient is a chronic abdominal pain with nausea, with acute presentation this evening N.p.o. except medications overnight for now Pantoprazole 40 mg IV twice daily status post 2 L normal saline in the ED Give another liter of fluids LR bolus Then maintenance LR Repeat laboratories in a.m. Has not been assessed for gluten sensitive enteropathy, we will order those labs There may be an element of polypharmacy, as patient is on: Baclofen, clonazepam, folic acid, gabapentin, pancreatic enzymes, mag citrate, medical marijuana, methocarbamol, metoclopramide, promethazine. CT scan abdomen pelvis reveals chronic pancreatitis MRI of the abdomen on 08/24/2023 notes chronic pancreatitis Unlikely SMA syndrome or ischemic colitis with normal imaging as noted Gastric emptying scan on 07/09/2023 showed delayed gastric emptying Suspect a number of her issues are related to alcohol use history although none recently, she likely has some permanent injury Tobacco cessation is hammonds, as she continues to smoke Need to follow-up with gastroenterology Acetaminophen 1 g IV every 8 hours as needed for mild pain or fever Zofran 4 mg IV every 6 hours as needed PG Care Time/CCT Total # of Minutes Spent Total Time Spent with Patient: Total time spent is greater than 50% in coordination of care (as documented) at patient's floor/unit and/or counseling patient: Coding [place] [address] INT INP/OBS CARE 3/75MIN Patient Type Established Medical Decision Making High Complexity Diagnoses Intractable nausea and vomiting R11.2 Abdominal pain R10.9 Chronic pancreatitis K86.1 Tobacco abuse Z72.0 History of ETOH abuse F10.11 Anticoagulant long-term use Z79.01 GERD (gastroesophageal reflux disease) K21.9 Generalized anxiety disorder with panic attacks F41.1; F41.0 Chronic neck pain M54.2; G89.29 Polypharmacy Z79.899 Back pain, chronic M54.9; G89.29
[2023-10-05 20:50] LABS: Appearance Urine Clear (Clear); Bacteria Urine Automated Negative (Negative); Bilirubin Urine Negative (Negative); Blood Urine Trace (Negative); Cast Urine Automated 0 /lpf (0-5); Color Urine Yellow; Epithelial Cell Urine Auto >30 /lpf (0-5); Glucose Urine UA Negative (Negative); Ketones Urine Trace (Negative); Leukocyte Esterase Urine Negative (Negative); Nitrite Urine Negative (Negative); Protein Urine Negative (Negative); RBC Urine Automated 0-4 /hpf (0-4); Specific Gravity Urine > 1.045 (1.000-1.030); Urobilinogen Urine Negative (Negative); pH Urine 7.5 (4.5-7.5)
[2023-10-05] MEDS ORDERED: ACETAMINOPHEN 1,000 MG/100 ML VIAL IV STA (21:18)
[2023-10-05] MEDS ORDERED: LACTATED RINGER'S 1,000 ML IV ONE (21:37)
[2023-10-05] MEDS ORDERED: ALBUTEROL HFA 8 GM INHALER INH PRN (22:04)
[2023-10-05] MEDS ORDERED: SUMAtriptan succinate 100 MG TAB PO PRN (22:04)
[2023-10-05] MEDS: LACTATED RINGER'S 1,000 ML IV SCH (22:09)
[2023-10-05 22:45] LABS: Pregnancy Test, Urine Negative (Negative)
[2023-10-05] MEDS: METHOCARBAMOL 750 MG TABLET PO SCH (23:27)
[2023-10-06] MEDS ORDERED: PROCHLORPERAZINE 1 ML IV ONE (01:09)
[2023-10-06] MEDS ORDERED: PROCHLORPERAZINE 5 MG in SYRINGE 4 ML IV STA (01:10)
[2023-10-06] MEDS: ONDANSETRON INJ 2 MG/ML 2 ML VIAL IV PRN (04:41)
[2023-10-06] MEDS: LACTATED RINGER'S 1,000 ML IV SCH ×2 (05:54→12:14)
[2023-10-06 06:11] LABS: Basophils # (auto) 0.07 K/uL (0.00-0.20); Basophils % (auto) 0.9 %; Eosinophils # (auto) 0.06 K/uL (0.00-0.50); Eosinophils % (auto) 0.8 %; Hematocrit (blood only) 36.1 % (37.0-47.0); Hemoglobin 12.3 g/dl (12.0-16.0); Immature Granulocytes # (auto) 0.04 K/uL (0.01-0.20); Immature Granulocytes % (auto) 0.5 %; Lymphocytes # (auto) 1.88 K/uL (1.20-3.40); Lymphocytes % (auto) 23.8 %; Mean Corpuscular Hemoglobin 28.4 pg (25.0-34.0); Mean Corpuscular Hgb Conc 34.1 g/dL (32.0-36.0); Mean Corpuscular Volume 83.4 fL (80.0-100.0); Mean Platelet Volume 9.3 fL (9.4-12.4); Monocytes # (auto) 0.76 K/uL (0.11-0.59); Monocytes % (auto) 9.6 %; Neutrophils # (auto) 5.09 K/uL (1.40-6.50); Neutrophils % (auto) 64.4 %; Platelet Count 409 K/uL (130-400); RDW Coefficient of Variation 14.6 % (11.5-14.5); RDW Standard Deviation 44.7 fL (36.4-46.3); Red Blood Count 4.33 M/uL (4.20-5.40)
[2023-10-06 06:24] LABS: BUN Creatinine Ratio 19.1 (10-20); Calcium 8.2 mg/dl (8.6-10.3); Creatinine Clr Calc Pharmacy 140.7 ml/min; Est GFR (African American) 140.2 ml/min; Potassium 3.5 mmol/L (3.5-5.1)
[2023-10-06] MEDS: ACETAMINOPHEN 1,000 MG/100 ML VIAL IV PRN (06:36)
--- NOTE | 2023-10-06 07:11 | XRay Report ---
XR chest 1V portable CLINICAL HISTORY: Productive cough, expiratory wheeze TECHNIQUE: Single frontal radiograph of the chest was obtained. Comparison: Comparison is made to chest radiograph 08/20/2023 FINDINGS: No lines and tubes are seen. The cardiomediastinal silhouette is normal. Peribronchial thickening is seen. Elevation of left hemidiaphragm again seen. No evidence of pleural effusion or pneumothorax. IMPRESSION: Peribronchial thickening is seen compatible with infectious/inflammatory airways disease or viral pne umonia. No shlely consolidation is seen. ACT 112: Negative or not required by law. Electronically signed by: Armand Cohen M.D. 10/06/2023 7:10 AM
--- NOTE | 2023-10-06 08:06 | Hospitalist Progress Note ---
Date of Service October 06, 2023 Assessment & Plan (1) Intractable nausea and vomiting: Plan: Abdominal pain and N/V/D x 1 week Patient's mother was recently sick with the flu BioFire negative Lipase WNL( ct abd pelvis suggests ch pancreatitis) UA negative; urine hCG negative Suspect N/V secondary to viral infection +/- chronic pancreatitis; supportive care and symptom relief. Patient required increased dosing of parenteral medications continued hydration with IV fluid and nausea relief with antiemetics Will check urine tox for cannabis hyperemesis syndrome (2) Abdominal pain: Plan: Generalized abdominal pain Patient is s/p cholecystectomy Abdomen/pelvic CT revealed no acute processes within the abdomen; normal appendix Clinically, suspect hyperalgesia with components of malabsorption and/or gastroparesis (patient began Reglan after [facility] admission Jul 2023) Celiac disease panel ordered, pending Acetaminophen IV (as above) (3) Chronic pancreatitis: Plan: Continue Creon (4) Tobacco abuse: Plan: Current tobacco cigarette smoker; 0.5 PPD Expiratory rhonchi and productive cough on physical exam; suspect potential asthmatic bronchitis CXR ordered, pending Declined nicotine patch as it keeps her up at night Counseling regarding smoking cessation Albuterol as needed (5) History of ETOH abuse: Plan: Patient denies recent alcohol use Last drink Jul 2023 Admission alcohol level is negative (6) Anticoagulant long-term use: Plan: Patient is on Eliquis BID for a DVT 6-7y ago, per patient She denies history of PEs (7) GERD (gastroesophageal reflux disease): Plan: Pantoprazole (as above) (8) Generalized anxiety disorder with panic attacks: Plan: Continue fluoxetine Recent discussions with PCP about tapering down on clonazepam (9) Chronic neck pain: Plan: Continue gabapentin, Robaxin Baclofen as needed Plan Full code Full liquid diet as tolerated (recommend celiac diet pending screening) VTE PPx: Continue Eliquis Admission and Anticipated Discharge Date Admission Date: October 05, 2023 Subjective pt with complaints of both abdominal pain and nausea and vomiting Patient states her family the same symptoms with nausea vomiting abdominal pain over the last week. Patient carries a history of chronic pancreatitis. Patient denies recent alcohol use. Physical Exam 2 Physical Exam: Awake in mild distress Abdomen is most tender centrally no rebound no guarding hypoactive bowel sounds Results & Data Results & Data Vital Signs (Past 12 Hours) Vital Signs Temp Pulse Pulse Pulse Resp BP Pulse Ox 10/06/23 04:43 91 H 16 135/93 96 10/06/23 01:45 90 14 140/83 94 10/05/23 23:20 98 H 10/05/23 22:27 98 H 12 122/86 96 10/05/23 22:12 96 10/05/23 22:09 97.5 F L 96 H 14 122/86 97 O2 Del Method 10/06/23 04:43 Room Air 10/06/23 01:45 Room Air 10/05/23 23:20 10/05/23 22:27 Room Air 10/05/23 22:12 Room Air 10/05/23 22:09 Room Air Laboratory Results Reviewed CBC reviewed chemistry PG Care Time/CCT Total # of Minutes Spent Total Time Spent with Patient: Total time spent is greater than 50% in coordination of care (as documented) at patient's floor/unit and/or counseling patient: Coding Level of Care Code 66154 SUB INP/OBS CARE 2/35MIN Diagnoses Intractable nausea and vomiting R11.2 Abdominal pain R10.9 Chronic pancreatitis K86.1 Tobacco abuse Z72.0 History of ETOH abuse F10.11 Anticoagulant long-term use Z79.01 GERD (gastroesophageal reflux disease) K21.9 Generalized anxiety disorder with panic attacks F41.1; F41.0 Chronic neck pain M54.2; G89.29
[2023-10-06] MEDS: FOLIC ACID 1 MG TAB PO SCH (08:45)
[2023-10-06] MEDS: clonazePAM 0.5 MG TAB PO SCH ×2 (08:45→20:38)
[2023-10-06] MEDS: APIXABAN 5 MG TABLET PO SCH ×2 (08:45→20:39)
[2023-10-06] MEDS: GABAPENTIN 600 MG TAB PO SCH ×3 (08:46→20:39)
[2023-10-06] MEDS: BACLOFEN 20 MG TAB PO PRN (08:46)
[2023-10-06] MEDS: THIAMINE HCL 100 MG TAB PO SCH (08:47)
[2023-10-06] MEDS: METOCLOPRAMIDE HCL 5 MG TABLET PO SCH ×3 (08:47→16:52)
[2023-10-06] MEDS: MAGNESIUM OXIDE 400 MG TAB PO SCH (08:49)
[2023-10-06] MEDS: FLUoxetine HCL 20 MG CAP PO SCH (08:49)
[2023-10-06] MEDS: METHOCARBAMOL 750 MG TABLET PO SCH ×3 (08:50→20:39)
[2023-10-06] MEDS: POTASSIUM CHLORIDE CRTAB 20 MEQ TABCR PO SCH (08:51)
[2023-10-06] MEDS: PANCREAZE (LIPASE 10,500U) CAP PO SCH ×3 (08:51→17:45)
[2023-10-06] MEDS ORDERED: HYDROmorphone INJ 1 MG/ML SYRINGE IV PRN (09:58)
[2023-10-06] MEDS ORDERED: DROPERIDOL 5 MG/2 ML VIAL IV PRN (09:58)
[2023-10-06] MEDS: PANTOprazole 40 MG in SYRINGE 0 ML IV SCH ×2 (10:18→20:23)
[2023-10-06] MEDS: HYDROmorphone INJ 0.5 MG/0.5 ML SYR IV PRN ×3 (10:55→19:10)
[2023-10-06 20:05] LABS: Amphetamines+Metham, Urine Neg (Neg); Barbiturates, Urine Neg (Neg); Benzodiazepine, Urine Neg (Neg); Cocaine, Urine Neg (Neg); MDMA (Ecstacy), Urine Neg (Neg); Marijuana, Urine Pos (Neg); Methadone, Urine Neg (Neg); Opiate, Urine Neg (Neg); Phencyclidine, Urine Neg (Neg)
[2023-10-06] MEDS: FAMOTIDINE 20 MG in SYRINGE 3 ML IV SCH (20:23)
[2023-10-06] MEDS: MELATONIN 3 MG TAB PO PRN (20:47)
[2023-10-07] MEDS: HYDROmorphone INJ 0.5 MG/0.5 ML SYR IV PRN ×6 (00:14→23:57)
[2023-10-07] MEDS: ONDANSETRON INJ 2 MG/ML 2 ML VIAL IV PRN ×3 (03:15→20:19)
[2023-10-07] MEDS: ACETAMINOPHEN 1,000 MG/100 ML VIAL IV PRN (03:15)
[2023-10-07 06:39] LABS: Basophils # (auto) 0.09 K/uL (0.00-0.20); Basophils % (auto) 1.2 %; Eosinophils # (auto) 0.19 K/uL (0.00-0.50); Eosinophils % (auto) 2.5 %; Immature Granulocytes # (auto) 0.02 K/uL (0.01-0.20); Immature Granulocytes % (auto) 0.3 %; Lymphocytes # (auto) 3.21 K/uL (1.20-3.40); Lymphocytes % (auto) 41.5 %; Mean Corpuscular Hemoglobin 28.7 pg (25.0-34.0); Mean Corpuscular Hgb Conc 33.3 g/dL (32.0-36.0); Mean Corpuscular Volume 86.1 fL (80.0-100.0); Mean Platelet Volume 9.3 fL (9.4-12.4); Monocytes # (auto) 0.86 K/uL (0.11-0.59); Monocytes % (auto) 11.1 %; Neutrophils # (auto) 3.36 K/uL (1.40-6.50); Neutrophils % (auto) 43.4 %; Platelet Count 376 K/uL (130-400); RDW Coefficient of Variation 14.8 % (11.5-14.5); Red Blood Count 4.18 M/uL (4.20-5.40); White Blood Count 7.73 K/ul (4.8-10.8)
[2023-10-07 06:56] LABS: BUN Creatinine Ratio 6.5 (10-20); Calcium 8.5 mg/dl (8.6-10.3); Creatinine Clr Calc Pharmacy 96.8 ml/min; Est GFR (Non-African American) 110.4 ml/min; Potassium 3.2 mmol/L (3.5-5.1)
[2023-10-07] MEDS: PANCREAZE (LIPASE 10,500U) CAP PO SCH ×3 (08:16→17:28)
[2023-10-07] MEDS: METOCLOPRAMIDE HCL 5 MG TABLET PO SCH ×3 (08:16→17:29)
[2023-10-07] MEDS: PANTOprazole 40 MG in SYRINGE 0 ML IV SCH ×2 (08:17→21:00)
[2023-10-07] MEDS: FAMOTIDINE 20 MG in SYRINGE 3 ML IV SCH ×2 (08:18→21:00)
[2023-10-07] MEDS: clonazePAM 0.5 MG TAB PO SCH ×2 (08:46→21:00)
[2023-10-07] MEDS: METHOCARBAMOL 750 MG TABLET PO SCH ×3 (08:47→20:59)
[2023-10-07] MEDS: POTASSIUM CHLORIDE CRTAB 20 MEQ TABCR PO SCH (08:47)
[2023-10-07] MEDS: THIAMINE HCL 100 MG TAB PO SCH (08:47)
[2023-10-07] MEDS: MAGNESIUM OXIDE 400 MG TAB PO SCH (08:48)
[2023-10-07] MEDS: FOLIC ACID 1 MG TAB PO SCH (08:48)
[2023-10-07] MEDS: APIXABAN 5 MG TABLET PO SCH ×2 (08:48→21:00)
[2023-10-07] MEDS: FLUoxetine HCL 20 MG CAP PO SCH (08:48)
[2023-10-07] MEDS: GABAPENTIN 600 MG TAB PO SCH ×3 (08:48→21:00)
[2023-10-07] MEDS ORDERED: MAGNESIUM SULFATE / D5W 1 GM/100 ML BAG IV ONE (17:26)
--- NOTE | 2023-10-07 17:27 | Hospitalist Progress Note ---
Date of Service October 07, 2023 Assessment & Plan (1) Intractable nausea and vomiting: Plan: Abdominal pain and N/V/D x 1 week Patient's mother was recently sick with the flu BioFire negative Lipase WNL( ct abd pelvis suggests ch pancreatitis) UA negative; urine hCG negative Suspect N/V secondary to viral infection +/- chronic pancreatitis; supportive care and symptom relief. Patient required increased dosing of parenteral medications continued hydration with IV fluid and nausea relief with antiemetics urine tox is positive for thc, for cannabis hyperemesis syndrome (2) Abdominal pain: Plan: Generalized abdominal pain Patient is s/p cholecystectomy Abdomen/pelvic CT revealed no acute processes within the abdomen; normal appendix Clinically, suspect hyperalgesia with components of malabsorption and/or gastroparesis (patient began Reglan after [facility] admission Jul 2023) Celiac disease panel ordered, pending Acetaminophen IV (as above) (3) Chronic pancreatitis: Plan: Continue Creon (4) Tobacco abuse: Plan: Current tobacco cigarette smoker; 0.5 PPD Expiratory rhonchi and productive cough on physical exam; suspect potential asthmatic bronchitis CXR ordered, pending Declined nicotine patch as it keeps her up at night Counseling regarding smoking cessation Albuterol as needed (5) History of ETOH abuse: Plan: Patient denies recent alcohol use Last drink Jul 2023 Admission alcohol level is negative (6) Anticoagulant long-term use: Plan: Patient is on Eliquis BID for a DVT 6-7y ago, per patient She denies history of PEs (7) GERD (gastroesophageal reflux disease): Plan: Pantoprazole (as above) (8) Generalized anxiety disorder with panic attacks: Plan: Continue fluoxetine Recent discussions with PCP about tapering down on clonazepam (9) Chronic neck pain: Plan: Continue gabapentin, Robaxin Baclofen as needed Plan Full code Full liquid diet as tolerated (recommend celiac diet pending screening) VTE PPx: Continue Eliquis Admission and Anticipated Discharge Date Admission Date: October 05, 2023 Subjective pt with continued complaints of both abdominal pain and nausea and vomiting, initially wanted to be discharged but then had recurrence of pain Patient states her family the same symptoms with nausea vomiting abdominal pain over the last week. Patient carries a history of chronic pancreatitis. Patient denies recent alcohol use. Physical Exam Physical Exam: Awake in mild distress Abdomen remains tender centrally without rebound or guarding hypoactive bowel sounds Results & Data Results & Data Vital Signs (Past 12 Hours) Vital Signs Temp Pulse Pulse Resp BP Pulse Ox O2 Del Method 10/07/23 16:42 97.5 F L 77 16 114/80 95 Room Air 10/07/23 15:37 89 10/07/23 13:00 98.1 F 98 H 16 132/88 94 Room Air 10/07/23 08:00 98.2 F 80 16 109/75 94 Room Air 10/07/23 07:47 85 Laboratory Results review cbc review chemistry PG Care Time/CCT Total # of Minutes Spent Total Time Spent with Patient: Total time spent is greater than 50% in coordination of care (as documented) at patient's floor/unit and/or counseling patient: Coding Level of Care Code 44808 SUB INP/OBS CARE 2/35MIN Diagnoses Intractable nausea and vomiting R11.2 Abdominal pain R10.9 Chronic pancreatitis K86.1 Tobacco abuse Z72.0 History of ETOH abuse F10.11 Anticoagulant long-term use Z79.01 GERD (gastroesophageal reflux disease) K21.9 Generalized anxiety disorder with panic attacks F41.1; F41.0 Chronic neck pain M54.2; G89.29
[2023-10-07] MEDS: POTASSIUM CHLORIDE / WTR 10 MEQ/100 ML PLCT IV SCH ×3 (17:59→20:04)
[2023-10-07] MEDS: MELATONIN 3 MG TAB PO PRN (21:00)
[2023-10-08] MEDS: ACETAMINOPHEN 1,000 MG/100 ML VIAL IV PRN (01:14)
[2023-10-08] MEDS: HYDROmorphone INJ 0.5 MG/0.5 ML SYR IV PRN ×4 (04:01→20:13)
[2023-10-08] MEDS: ONDANSETRON INJ 2 MG/ML 2 ML VIAL IV PRN ×2 (06:18→18:45)
[2023-10-08 07:47] LABS: BUN Creatinine Ratio 5.3 (10-20); Calcium 8.7 mg/dl (8.6-10.3); Creatinine Clr Calc Pharmacy 105.3 ml/min; Est GFR (African American) 131.6 ml/min; Est GFR (Non-African American) 113.5 ml/min; Potassium 3.8 mmol/L (3.5-5.1)
[2023-10-08 07:50] LABS: Basophils # (auto) 0.07 K/uL (0.00-0.20); Basophils % (auto) 0.8 %; Eosinophils # (auto) 0.24 K/uL (0.00-0.50); Eosinophils % (auto) 2.6 %; Hematocrit (blood only) 38.6 % (37.0-47.0); Hemoglobin 12.2 g/dl (12.0-16.0); Immature Granulocytes # (auto) 0.02 K/uL (0.01-0.20); Immature Granulocytes % (auto) 0.2 %; Lymphocytes # (auto) 3.53 K/uL (1.20-3.40); Lymphocytes % (auto) 38.9 %; Mean Corpuscular Hemoglobin 28.8 pg (25.0-34.0); Mean Corpuscular Hgb Conc 31.6 g/dL (32.0-36.0); Mean Platelet Volume 9.9 fL (9.4-12.4); Monocytes # (auto) 0.85 K/uL (0.11-0.59); Monocytes % (auto) 9.4 %; Neutrophils # (auto) 4.37 K/uL (1.40-6.50); Neutrophils % (auto) 48.1 %; Platelet Count 387 K/uL (130-400); RDW Coefficient of Variation 15.1 % (11.5-14.5); Red Blood Count 4.24 M/uL (4.20-5.40); White Blood Count 9.08 K/ul (4.8-10.8)
[2023-10-08] MEDS: PANCREAZE (LIPASE 10,500U) CAP PO SCH ×3 (08:13→17:09)
[2023-10-08] MEDS: METOCLOPRAMIDE HCL 5 MG TABLET PO SCH ×3 (08:13→17:09)
[2023-10-08] MEDS: PANTOprazole 40 MG in SYRINGE 0 ML IV SCH ×2 (08:14→20:19)
[2023-10-08] MEDS: FAMOTIDINE 20 MG in SYRINGE 3 ML IV SCH ×2 (08:14→21:10)
[2023-10-08] MEDS: METHOCARBAMOL 750 MG TABLET PO SCH ×3 (09:11→20:19)
[2023-10-08] MEDS: clonazePAM 0.5 MG TAB PO SCH ×2 (09:11→20:12)
[2023-10-08] MEDS: MAGNESIUM OXIDE 400 MG TAB PO SCH (09:11)
[2023-10-08] MEDS: FOLIC ACID 1 MG TAB PO SCH (09:12)
[2023-10-08] MEDS: FLUoxetine HCL 20 MG CAP PO SCH (09:12)
[2023-10-08] MEDS: POTASSIUM CHLORIDE CRTAB 20 MEQ TABCR PO SCH (09:12)
[2023-10-08] MEDS: GABAPENTIN 600 MG TAB PO SCH ×3 (09:13→20:19)
[2023-10-08] MEDS: APIXABAN 5 MG TABLET PO SCH ×2 (09:13→20:19)
[2023-10-08] MEDS: THIAMINE HCL 100 MG TAB PO SCH (09:13)
[2023-10-08 12:42] LABS: IgA Serum 327 mg/dL (47-310); Tis Trans IgA <1.0 U/mL
--- NOTE | 2023-10-08 17:50 | Hospitalist Progress Note ---
Date of Service October 08, 2023 Assessment & Plan (1) Intractable nausea and vomiting: Plan: Abdominal pain and N/V/D x 1 week Patient's mother was recently sick with the flu BioFire negative, repeat covid test as now pt states mother has covid at home Lipase WNL( ct abd pelvis suggests ch pancreatitis) UA negative; urine hCG negative Suspect N/V secondary to viral infection +/- chronic pancreatitis; supportive care and symptom relief. Patient required increased dosing of parenteral medications continued hydration with IV fluid and nausea relief with antiemetics urine tox is positive for thc, for cannabis hyperemesis syndrome (2) Abdominal pain: Plan: Generalized abdominal pain Patient is s/p cholecystectomy Abdomen/pelvic CT revealed no acute processes within the abdomen; normal appendix Clinically, suspect hyperalgesia with components of malabsorption and/or gastroparesis (patient began Reglan after [facility] admission Jul 2023) Celiac disease panel ordered, pending Acetaminophen IV (as above) (3) Chronic pancreatitis: Plan: Continue Creon (4) Tobacco abuse: Plan: Current tobacco cigarette smoker; 0.5 PPD Expiratory rhonchi and productive cough on physical exam; suspect potential asthmatic bronchitis CXR ordered, pending Declined nicotine patch as it keeps her up at night Counseling regarding smoking cessation Albuterol as needed (5) History of ETOH abuse: Plan: Patient denies recent alcohol use Last drink Jul 2023 Admission alcohol level is negative (6) Anticoagulant long-term use: Plan: Patient is on Eliquis BID for a DVT 6-7y ago, per patient She denies history of PEs (7) GERD (gastroesophageal reflux disease): Plan: Pantoprazole (as above) (8) Generalized anxiety disorder with panic attacks: Plan: Continue fluoxetine Recent discussions with PCP about tapering down on clonazepam (9) Chronic neck pain: Plan: Continue gabapentin, Robaxin Baclofen as needed Plan Full code advancing diet VTE PPx: Continue Eliquis Admission and Anticipated Discharge Date Admission Date: October 05, 2023 Subjective pt with continued complaints of abdominal pain improved nausea Patient states her family the same symptoms with nausea vomiting abdominal pain over the last week. Patient carries a history of chronic pancreatitis. Patient denies recent alcohol use. states mother has covid, ordered test as pt is cohorted Physical Exam Physical Exam: Awake in mild distress Abdomen remains tender centrally without rebound or guarding hypoactive bowel sounds lungs are clear Results & Data Results & Data Vital Signs (Past 12 Hours) Vital Signs Temp Pulse Pulse Resp BP BP Pulse Ox 10/08/23 16:39 97.5 F L 89 18 126/89 96 10/08/23 11:21 98.2 F 90 18 127/87 98 10/08/23 07:53 98.2 F 90 18 122/81 92 10/08/23 07:27 76 O2 Del Method 10/08/23 16:39 Room Air 10/08/23 11:21 Room Air 10/08/23 07:53 Room Air 10/08/23 07:27 Laboratory Results reviewed cbc reviewed chemistry ordered covid test PG Care Time/CCT Total # of Minutes Spent Total Time Spent with Patient: Total time spent is greater than 50% in coordination of care (as documented) at patient's floor/unit and/or counseling patient: Coding Level of Care Code 53692 SUB INP/OBS CARE 2/35MIN Diagnoses Intractable nausea and vomiting R11.2 Abdominal pain R10.9 Chronic pancreatitis K86.1 Tobacco abuse Z72.0 History of ETOH abuse F10.11 Anticoagulant long-term use Z79.01 GERD (gastroesophageal reflux disease) K21.9 Generalized anxiety disorder with panic attacks F41.1; F41.0 Chronic neck pain M54.2; G89.29
[2023-10-08] MEDS: MELATONIN 3 MG TAB PO PRN (20:23)
[2023-10-08] MEDS: BACLOFEN 20 MG TAB PO PRN (22:23)
[2023-10-09] MEDS: HYDROmorphone INJ 0.5 MG/0.5 ML SYR IV PRN ×3 (00:46→08:56)
[2023-10-09] MEDS: METOCLOPRAMIDE HCL 5 MG TABLET PO SCH ×2 (06:32→11:47)
[2023-10-09] MEDS: FLUoxetine HCL 20 MG CAP PO SCH (07:59)
[2023-10-09] MEDS: PANCREAZE (LIPASE 10,500U) CAP PO SCH ×2 (07:59→11:47)
[2023-10-09] MEDS: THIAMINE HCL 100 MG TAB PO SCH (08:00)
[2023-10-09] MEDS: FAMOTIDINE 20 MG in SYRINGE 3 ML IV SCH (08:00)
[2023-10-09] MEDS: FOLIC ACID 1 MG TAB PO SCH (08:00)
[2023-10-09] MEDS: GABAPENTIN 600 MG TAB PO SCH (08:00)
[2023-10-09] MEDS: METHOCARBAMOL 750 MG TABLET PO SCH (08:00)
[2023-10-09] MEDS: MAGNESIUM OXIDE 400 MG TAB PO SCH (08:00)
[2023-10-09] MEDS: APIXABAN 5 MG TABLET PO SCH (08:00)
[2023-10-09] MEDS: clonazePAM 0.5 MG TAB PO SCH (08:03)
[2023-10-09] MEDS: POTASSIUM CHLORIDE CRTAB 20 MEQ TABCR PO SCH (08:03)
[2023-10-09] MEDS: PANTOprazole 40 MG in SYRINGE 0 ML IV SCH (08:04)
[2023-10-09 08:27] LABS: Marijuana Quant, GCMS Urine 73 ng/mL (<5)
[2023-10-09] MEDS: ONDANSETRON INJ 2 MG/ML 2 ML VIAL IV PRN (08:56)
--- NOTE | 2023-10-09 15:05 | Discharge Summary ---
Date of Service October 09, 2023 Admission HPI Per Admitting Provider Nadja is a 42yo female with PMH of chronic pancreatitis, s/p cholecystectomy, alcohol use disorder, anxiety with panic attacks, GERD, gastritis, current tobacco cigarette smoker, chronic migraine, chronic neck pain, chronic back pain, and insomnia. She presented for abdominal pain and N/V/D x 1 week. She reports that she was recently with her mother, who had the flu. Patient endorses generalized abdominal pain, and characterizes it as dull, achy, constant. She rates the pain 8/10 at time of admission. She has been taking Phenergan at home for nausea. She also tried taking Tylenol, but reports she was unable to keep it down. Not tolerating solids. Tolerating some liquids. Patient manages her own medications. She reports that she took her morning medications, and did not throw them up. She denies any recent changes in medications. Patient is on Eliquis for DVT PPx; history of DVT. In regard to LMP, patient reports that she uses an IUD and does not have regular menstrual cycles. Patient is a current everyday tobacco cigarette smoker; 0.5 PPD; she also smokes medical marijuana. She has a history of alcohol abuse, but reports that she has no recent alcohol use and that she quit drinking. Patient had pneumonia 6 weeks ago. Patient's vitals are stable at time of admission. ED course: Pantoprazole 40 mg IV Droperidol 1.25 mg IV Acetaminophen 1000 mg IV NSS 1000 mL IV ROS: Patient endorses intermittent fever, chills, dizziness, lightheadedness, productive cough (dark green), chest pain with coughing, generalized abdominal pain, N/V/D, and numbness/tingling going down left arm (due to pinched nerve in neck, per patient). Patient denies nightsweats, HOU, chest palpitations, SOB, hematemesis, hemoptysis, or blood in the stool/urine, burning with urination, or dysuria. Please see Dr. Gore's attestation for any changes to treatment plan. Principal Diagnosis intractable nausea vomiting and abdominal pain viral gastroenteritis Discharge Exam awake alert and appropriate abd is soft and mildly tender no rebound no guarding Discharge Data Allergies Allergy/AdvReac Type Severity Reaction Status Date / Time buspirone [From BuSpar] Allergy Severe Unconscious, Verified 09/24/23 15:06 seizures quetiapine [From Seroquel] Allergy Severe Unconscious, Verified 09/24/23 15:06 seizures citalopram [From Celexa] AdvReac Intermediate Vomiting Verified 09/24/23 15:06 morphine AdvReac Intermediate "MAKES ME Verified 09/24/23 15:06 SICK(VOMITING)" vilazodone [From Viibryd] AdvReac Vomiting Verified 09/24/23 15:06 Consultations 10/05/23 20:02 ED Decision to Admit Stat Ordered Studies 10/05/23 16:41 CT Abd and Pelvis [CT abd pelvis IV con only] Stat Hospital Course (1) Intractable nausea and vomiting: Abdominal pain and N/V/D x 1 week Patient's mother was recently sick with the flu-> now covid + BioFire negative, repeat covid test as now pt states mother has covid at home Lipase WNL( ct abd pelvis suggests ch pancreatitis) UA negative; urine hCG negative covid negative Suspect N/V secondary to viral infection +/- chronic pancreatitis; supportive care and symptom relief. Patient required increased dosing of parenteral medications continued hydration with IV fluid and nausea relief with antiemetics urine tox is positive for thc, ? cannabis hyperemesis syndrome (2) Abdominal pain: Generalized abdominal pain Patient is s/p cholecystectomy Abdomen/pelvic CT revealed no acute processes within the abdomen; normal appendix Clinically, suspect hyperalgesia with components of malabsorption and/or gastroparesis (patient began Reglan after [facility] admission Jul 2023) Celiac disease panel ordered, negative Acetaminophen IV (as above) (3) Chronic pancreatitis: Continue Creon (4) Tobacco abuse: Current tobacco cigarette smoker; 0.5 PPD Expiratory rhonchi and productive cough on physical exam; suspect potential asthmatic bronchitis CXR ordered, pending Declined nicotine patch as it keeps her up at night Counseling regarding smoking cessation (5) History of ETOH abuse: Patient denies recent alcohol use Last drink Jul 2023 Admission alcohol level is negative (6) Anticoagulant long-term use: Patient is on Eliquis BID for a DVT 6-7y ago, per patient She denies history of PEs (7) GERD (gastroesophageal reflux disease): Pantoprazole (as above) (8) Generalized anxiety disorder with panic attacks: Continue fluoxetine Recent discussions with PCP about tapering down on clonazepam (9) Chronic neck pain: Continue gabapentin, Robaxin Baclofen as needed Plan Full code Total Time Total Time Spent Total Time Spent (In Minutes): It required greater than 30 minutes to prepare this patient for discharge. Discharge Plan Discharge Items Patient Disposition: Home - Self-Care Reason For Visit: N/V/D, ABDOMINAL PAIN Discharge Diagnosis: viral gastroenteritis intractable nausea and vomiting Activity: Resume your previous activity Non-emergency contact: Primary Care Provider Call non-emergency contact if: your symptoms worsen Follow-up/Referrals: Kenzie Bhatt CRNP [Primary Care Provider] - Diet: Low Fiber Addtl Attending Provider Instructions: please eat a bland, low fiber diet keep hydrated, and take pain medications spraingly as they can cause constipation follow up with your family doctor Pending Studies at Discharge: No Stand-Alone Forms: My [employer], Smoking Cessation Medications and DC Order Prescriptions: New oxycodone 5 mg tablet 5 mg PO TID PRN (Reason: pain) Qty: 20 0RF Continued medical marijuana 1 puff inhalation HS PRN (Reason: Sleep) Rx Instructions: VAPE Creon 36,000-114,000- 180,000 unit capsule,delayed release(DR/EC) 3 cap PO TID 90 Days Qty: 810 3RF Rx Instructions: With meals folic acid 1 mg tablet See Rx Instructions .ROUTE .COMPLEX Qty: 90 3RF Dose Instruction: TAKE 1 TABLET BY MOUTH EVERY DAY IN THE MORNING Rx Instructions: TAKE 1 TABLET BY MOUTH EVERY DAY IN THE MORNING promethazine 25 mg tablet 25 mg PO Q6H PRN (Reason: nausea and vomiting) Qty: 30 3RF metoclopramide HCl 5 mg tablet 5 mg PO AC Qty: 30 0RF Rx Instructions: for nausea/gastroparesis clonazepam 1 mg tablet 0.5 mg PO BID 30 Days Qty: 30 0RF potassium chloride [Klor-Con M20] 20 mEq tablet,ER particles/crystals 20 meq PO QAM Qty: 90 3RF methocarbamol 750 mg tablet See Rx Instructions .ROUTE .COMPLEX Qty: 90 0RF Dose Instruction: TAKE 1 TABLET BY MOUTH THREE TIMES A DAY Rx Instructions: TAKE 1 TABLET BY MOUTH THREE TIMES A DAY gabapentin 600 mg tablet 600 mg PO TID 30 Days Qty: 90 0RF sumatriptan succinate 100 mg tablet 100 mg PO DAILY PRN (Reason: migraine/headache) Qty: 20 0RF Rx Instructions: TAKE 1 TABLET BY MOUTH NEEDED FOR MIGRAINE/HEADACHE. MAY REPEAT 1 DOSE AFTER 1-2 HOURS albuterol sulfate [Ventolin HFA] 90 mcg/actuation HFA aerosol inhaler 2 puff inhalation Q4H PRN (Reason: cough/wheeze/shortness of breath) Qty: 1 0RF ondansetron 4 mg tablet,disintegrating 4 mg PO Q6H PRN (Reason: Nausea And Vomiting) 30 Days Qty: 60 2RF Rx Instructions: TAKE 1 TABLET BY MOUTH EVERY 6 HOURS NEEDED FOR NAUSEA fluoxetine 60 mg tablet 60 mg PO QAM Qty: 90 3RF thiamine HCl (vitamin B1) 100 mg tablet 300 mg PO QAM magnesium citrate 100 mg tablet 100 mg PO QAM nicotine (polacrilex) 4 mg gum 4 mg buccal Q2H Qty: 20 0RF (DME) TENS unit and electrodes Combo Pack See Rx Instructions .Route Qty: 1 0RF Rx Instructions: As directed multivitamin Tablet 1 tab PO QAM mecobalamin (vitamin B12) [B12 Active] 1,000 mcg Tablet,Chewable 1,000 mcg PO QAM Eliquis 5 mg tablet 5 mg PO BID clindamycin phosphate 1 % gel 1 applic topical DAILY PRN (Reason: Acne) Rx Instructions: APPLY TOPICALLY DAILY FOR ACNE calcium carbonate 600 mg calcium (1,500 mg) tablet 600 mg PO QAM pantoprazole 40 mg tablet,delayed release (DR/EC) 40 mg PO BID cholecalciferol (vitamin D3) 250 mcg (10,000 unit) capsule 250 mcg PO QAM baclofen 20 mg tablet 20 mg PO BID PRN (Reason: neck pain/muscle spasm) Qty: 1 0RF Discharge Orders: Discharge Order (Routine); Ordered 10/09/23 Ordered By: Damian Del Castillo Admission Data Admit Date/Time: 10/05/23 21:37 Attending Provider: Damian Del Castillo Admit Provider: Arnoldo Gore Primary Care Provider: Kenzie Bhatt Other Providers: Arnoldo Gore Other Interventions: Discharge Summary Assessment (RN) Last Done: 10/09/23 11:32 Coding Level of Care Code 91042 INP/OBS DISCH >30 MIN Diagnoses Intractable nausea and vomiting R11.2 Abdominal pain R10.9 Chronic pancreatitis K86.1 Tobacco abuse Z72.0 History of ETOH abuse F10.11 Anticoagulant long-term use Z79.01 GERD (gastroesophageal reflux disease) K21.9 Generalized anxiety disorder with panic attacks F41.1; F41.0 Chronic neck pain M54.2; G89.29
== END 2023-10-09 13:36 | disposition home or self-care (01) | DRG 392 ==
LOC: ED 13:59 → SUATTDRO 21:37 → EDINP 21:37 → INTOOBSV 21:37 → 2N 22:05 → 3N 10-08 22:20

== ENCOUNTER 2023-12-12 11:29 | Observation (INO) ==
[2023-12-12 12:30] LABS: Basophils # (auto) 0.05 K/uL (0.00-0.20); Basophils % (auto) 0.5 %; Eosinophils # (auto) 0.01 K/uL (0.00-0.50); Eosinophils % (auto) 0.1 %; Immature Granulocytes # (auto) 0.04 K/uL (0.01-0.20); Immature Granulocytes % (auto) 0.4 %; Lymphocytes # (auto) 2.33 K/uL (1.20-3.40); Lymphocytes % (auto) 23.1 %; Mean Corpuscular Hemoglobin 27.8 pg (25.0-34.0); Mean Corpuscular Hgb Conc 33.3 g/dL (32.0-36.0); Mean Corpuscular Volume 83.3 fL (80.0-100.0); Mean Platelet Volume 9.5 fL (9.4-12.4); Monocytes # (auto) 0.98 K/uL (0.11-0.59); Monocytes % (auto) 9.7 %; Neutrophils # (auto) 6.69 K/uL (1.40-6.50); Neutrophils % (auto) 66.2 %; Platelet Count 541 K/uL (130-400); RDW Coefficient of Variation 16.4 % (11.5-14.5); RDW Standard Deviation 48.9 fL (36.4-46.3); Red Blood Count 4.68 M/uL (4.20-5.40)
[2023-12-12 12:39] LABS: Pregnancy Test, Serum Negative (Negative)
[2023-12-12 12:41] LABS: Albumin Globulin Ratio 1.3 (0.9-2); Albumin Level 4.2 gm/dl (3.4-5.0); BUN Creatinine Ratio 14.9 (10-20); Bilirubin,Total 0.3 mg/dl (0.2-1.0); Calcium 8.7 mg/dl (8.6-10.3); Creatinine Clr Calc Pharmacy 101.4 ml/min; Est GFR (African American) 124.8 ml/min; Est GFR (Non-African American) 107.7 ml/min; Globulin 3.2 gm/dl (2.5-4.0); Potassium 3.4 mmol/L (3.5-5.1); Total Protein 7.4 gm/dl (6.0-8.3)
[2023-12-12 12:52] LABS: Magnesium 1.6 mg/dl (1.7-2.4)
[2023-12-12] MEDS: KETOROLAC TROMETHAMINE 15 MG/ML VIAL IV ONE (14:25)
[2023-12-12] MEDS: ONDANSETRON INJ 2 MG/ML 2 ML VIAL IV STA (14:26)
[2023-12-12] MEDS: HYDROmorphone INJ 0.5 MG/0.5 ML SYR IV STA ×2 (14:26→15:58)
--- NOTE | 2023-12-12 14:26 | Emergency Department Note ---
ED Provider Note History of Present Illness Chief Complaint: Abdominal Pain Stated Complaint: THROWING UP SINCE SUN/ABDOMINAL PAIN Time Seen by Provider: 12/12/23 13:18 42-year-old female, history of chronic pancreatitis, s/p cholecystectomy, alcohol use disorder, anxiety with panic attacks, GERD, gastritis, current tobacco cigarette smoker, chronic migraine, chronic neck pain, chronic back pain, and insomnia, who presents to the emergency department with complaint of ongoing abdominal pain, nausea and vomiting. The patient reports that she was seen in the emergency department a few weeks ago with similar symptoms. The patient reports that her symptoms never really resolved after last her last ED visit. 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 Patient reports that she had to be admitted earlier this year with similar symptoms. Patient denies any recurrent alcohol consumption. She has not noticed any blood in her stools. She denies any coffee-ground emesis. Patient reports that she is unable to keep Tylenol down. She cannot take NSAIDs because she is currently on apixaban. Patient does smoke medical marijuana. The patient rates her overall discomfort a 10 out of 10. It is noted that her triage summary indicates that she did not have any complaint of pain at that time. The patient reports that she did follow-up with [facility], and does have a colonoscopy scheduled for next week. Home Medications Medication Instructions Recorded Confirmed Type multivitamin 1 tab PO QAM 03/18/19 12/12/23 History mecobalamin (vitamin B12) 1,000 1,000 mcg PO QAM 11/10/19 12/12/23 History mcg chewable tablet (B12 Active) thiamine HCl (vitamin B1) 100 mg 300 mg PO QAM 04/17/21 12/12/23 History tablet magnesium citrate 100 mg tablet 100 mg PO QAM 05/23/22 12/12/23 History clindamycin phosphate 1 % topical 1 applic topical DAILY PRN Acne 02/17/23 12/12/23 History gel medical marijuana 1 puff inhalation HS PRN Sleep 05/21/23 12/12/23 History TENS unit and electrodes combo pack #1 ea 07/10/23 10/22/23 Rx calcium carbonate 600 mg calcium 600 mg PO QAM 08/18/23 12/12/23 History (1,500 mg) tablet cholecalciferol (vitamin D3) 250 250 mcg PO QAM 08/18/23 12/12/23 History mcg (10,000 unit) capsule folic acid 1 mg tablet See Rx Instructions .Route 08/18/23 12/12/23 Rx .COMPLEX #90 tabs pantoprazole 40 mg tablet,delayed 40 mg PO BID 08/18/23 12/12/23 History release baclofen 20 mg tablet 20 mg PO BID PRN neck pain/muscle 08/25/23 12/12/23 Rx spasm #1 tab albuterol sulfate 90 mcg/actuation 2 puff inhalation Q4H PRN 08/27/23 12/12/23 Rx aerosol inhaler (Ventolin HFA) cough/wheeze/shortness of breath #1 inhaler ondansetron 4 mg disintegrating 4 mg PO Q6H PRN Nausea And 08/27/23 12/12/23 Rx tablet Vomiting 30 days #60 tabs promethazine 25 mg tablet 25 mg PO Q6H PRN nausea and 09/08/23 12/12/23 Rx vomiting #30 tabs nicotine (polacrilex) 4 mg gum 4 mg buccal Q2H #20 ea 09/24/23 12/12/23 Rx potassium chloride 20 mEq 20 meq PO QAM #90 tabs 10/06/23 12/12/23 Rx tablet,extended release(part/cryst) (Klor-Con M) sumatriptan succinate 100 mg tablet 100 mg PO DAILY PRN 10/07/23 12/12/23 Rx migraine/headache #20 tabs lyakgv-[id number]-wyepefp 3 cap PO TID Abdominal Discomfort 10/23/23 12/12/23 Rx 36,000-114,000-180,000 unit 90 days #810 caps capsule,delay rel (Creon) oxycodone 5 mg tablet 5 mg PO TID PRN pain #10 tabs 10/28/23 12/12/23 Rx apixaban 5 mg tablet (Eliquis) 5 mg PO BID #90 tabs 11/17/23 12/12/23 Rx gabapentin 600 mg tablet 600 mg PO TID 30 days #90 tabs 11/17/23 12/12/23 Rx methocarbamol 750 mg tablet See Rx Instructions .Route 11/17/23 12/12/23 Rx .COMPLEX #90 tabs nicotine See Rx Instructions transdermal 11/19/23 12/12/23 Rx 21mg/24hr-14mg/24hr-7mg/24hr daily .COMPLEX #56 patches transderm patches,sequentl nicotine 21 mg/24 hr daily 1 patch transdermal DAILY 6 weeks 12/03/23 12/12/23 Rx transdermal patch #28 ea nicotine 7 mg/24 hr daily 1 patch transdermal Q24H 2 weeks 12/03/23 12/12/23 Rx transdermal patch #14 ea trazodone 50 mg tablet 50 mg PO DAILY #30 tabs 12/03/23 12/12/23 Rx clonazepam 0.5 mg tablet 0.75 mg (1.5 x 0.5 mg) PO DAILY 8 12/05/23 12/12/23 Rx days #12 tabs Allergies Allergy/AdvReac Type Severity Reaction Status Date / Time buspirone [From BuSpar] Allergy Severe Unconscious, Verified 12/03/23 09:06 seizures quetiapine [From Seroquel] Allergy Severe Unconscious, Verified 12/03/23 09:06 seizures citalopram [From Celexa] AdvReac Intermediate Vomiting Verified 12/03/23 09:06 morphine AdvReac Intermediate "MAKES ME Verified 12/03/23 09:06 SICK(VOMITING)" vilazodone [From Viibryd] AdvReac Vomiting Verified 12/03/23 09:06 Past Med/Surg History Medical History (Updated 12/12/23 @ 18:47 by Nacho Us) History of DVT (deep vein thrombosis) Cervical spondylosis Cervical radiculopathy Fracture of middle phalanx of finger of right hand Fracture of third metacarpal bone of right hand Distal radius fracture, right Fracture of distal phalanx of finger MCL sprain of right knee Toe fracture, left Sleeping difficulty Anxiety and depression Marijuana use Tendinitis of right rotator cuff Pancreatic pseudocyst Acute pancreatitis Alcohol abuse Pancreatitis alcoholic Acne 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 Gala Willett "LAST APRIL" History of esophagogastroduodenoscopy (EGD) History of cholecystectomy History of tooth extraction History of lumpectomy of right breast BENIGN Family History Father Family history of diabetes mellitus Myocardial infarction Stroke Hypertension Grandfather (Maternal) Family history of diabetes mellitus Grandmother (Maternal) Family history of diabetes mellitus Hypertension Cancer Mother Hypothyroidism Grandfather (Paternal) Cancer Heart problem Grandmother (Paternal) Hypertension Denies family history of Ovarian cancer Prostate cancer Breast cancer Colorectal cancer Social History Smoking Status: Never smoker Tobacco Type: Cigarettes Cigarettes Per Day: Half a pack a day.; Second Hand Exposure: Yes; Do You Dip or Chew Tobacco: No; Hx Alcohol Use: No Hx Substance Use: Yes Last Used Substance: Hours (ago) Last Used Substance Other:: yesterday Substance Use Type Other:: Smokes Kurt Preferred Language: British Communication Ability: Effective Visual Impairment: No Limitations Hearing Ability: Normal History Card Clerk Required: No Beliefs That Will Affect Care: None marital status: Single Current Living Situation: Parent Current Living Situation Comment: lives at home with mom current occupational status: employed current occupation: at [employer] How many Children do You have: 0 Feels Safe at Home: Yes Childhood Exposure to Second-Hand Smoke: No Diet: regular Diet Comment: regular Dental Care, Regularly: Yes Physical Activity Frequency: Does not Exercise Seatbelt Use: always Sunscreen Use: Yes Do you think of yourself as: straight/heterosexual Assistive Devices: Glasses Physical Exam Vital Signs Vital Signs - 24 hr 12/12/23 11:38 12/12/23 14:32 12/12/23 15:07 Temperature 36.3 C L Temperature Source Temporal Artery Scan Pulse Rate 136 H Pulse Rate [Finger] 105 H 98 H Pulse Rate from SpO2 Sensor Respiratory Rate 16 18 18 Respiratory Effort / Characteristics Non-Labored Non-Labored Respiratory Depth Normal Normal Respiratory Pattern Regular Regular Blood Pressure 126/92 Blood Pressure [Right Arm] 123/99 148/99 H Blood Pressure Mean 103 Blood Pressure Mean [Right Arm] 107 115 Pulse Oximetry 98 100 100 Oxygen Delivery Method Room Air Room Air Sepsis Recent Fever Within 48 Hours No Sepsis New/Unexplained Change in Mental Status No Sepsis Action Taken by Nursing No Action Required 12/12/23 16:26 12/12/23 16:26 12/12/23 17:00 Temperature Temperature Source Pulse Rate 91 H 98 H 109 H Pulse Rate [Finger] Pulse Rate from SpO2 Sensor 97 H 110 H Respiratory Rate 14 19 Respiratory Effort / Characteristics Respiratory Depth Respiratory Pattern Blood Pressure 132/94 150/104 H Blood Pressure [Right Arm] Blood Pressure Mean 106 119 Blood Pressure Mean [Right Arm] Pulse Oximetry 96 96 Oxygen Delivery Method Room Air Room Air Sepsis Recent Fever Within 48 Hours Sepsis New/Unexplained Change in Mental Status Sepsis Action Taken by Nursing CONSTITUTIONAL: Healthy and well nourished. Alert and oriented X 3. Patient appears in moderate discomfort. HEENT: No scleral icterus or conjunctival injection. Mucous membranes are dry. RESPIRATORY: Clear to auscultation bilaterally with no wheezing, crackles, rhonchi or stridor. CARDIOVASCULAR: Regular rate and rhythm with no murmurs, rubs or gallops. GASTROINTESTINAL: Bowel sounds present in all quadrants. Patient has generalized abdominal tenderness to palpation without rigidity, guarding or rebound. Negative McBurney's point tenderness. Negative CVA tenderness. MUSCULOSKELETAL: Full range of motion of all joints without discomfort. INTEGUMENTARY: No rash or other significant dermatologic conditions noted. HEMATOLOGIC: No ecchymosis or petechiae. PSYCHIATRIC: Flat affect, with occasional crying. NEUROLOGIC: No focal neurologic deficits noted. Course Course Patient history and physical exam were performed. Nurses notes were reviewed. I did review outside medical records, showing that the patient was admitted to our facility on 10/05/2023 with similar symptoms. It was suggested that she may have had a viral gastroenteritis. I also question the possibility of hyperemesis syndrome. Further review of medical record shows that the patient was here in the emergency department 12 days ago with similar symptoms. She did have CT of the abdomen and pelvis that was concerning for possible nonspecific colitis, otherwise no other acute findings were noted. The patient does have history of chronic pancreatitis, however her laboratory studies from her visit on 11/30/2023 did not show any concerning findings, including an elevated lipase or LFTs. Initial orders were placed per nursing protocol, with a higher volume of high acuity patients at the time that the patient presented to the emergency department. IV access was established, and labs were drawn. Prior to being placed in a room, I did review the patient's labs, showing a normal white count. No anemia is noted. Further review of labs shows a mild hypokalemia that will not need corrected. Creatinine and remaining electrolytes are normal. Magnesium is 1.6. LFTs and lipase continue to remain normal. Serum hCG was negative. Alcohol level was 33, indicating continued and recent alcohol use. Upon my presentation to the room, the patient reports that she can no longer tolerate the pain and nausea. She reports that when she was last in the emergency department, she only received IV Toradol which did not help with her pain, and left the emergency department in severe discomfort. Review of prior medical record shows that the patient does have a history of polypharmacy abuse. I also queried the [place] Drug Monitoring Prescription Program shows that the patient receives regular prescriptions for clonazepam from her PCP. The patient also recently had other opioid prescriptions provided by [facility]. Until further labs and imaging to be completed, I did order some IV Dilaudid, Toradol and Zofran. I did initially offer IV morphine, but the patient reports that it does not work. CT with IV contrast of the abdomen and pelvis shows a pancolitis without obstructive findings, evidence for worsening pancreatitis or other concerning findings. Urinalysis did not show hematuria or signs of infection. Urine drug screen was positive for marijuana, with known use of medical marijuana. Upon reevaluation, the patient reported persistent pain and nausea, without any relief with medications provided. The patient was ordered additional IV Dilaudid and Phenergan. The case was then discussed with our Manager Trade, as well as the [facility] service, who did come to the emergency department for further evaluation. Please see their dictation for further treatment and final disposition. Administered Medications Discontinued Medications Hydromorphone HCl (Hydromorphone Inj 0.5 Mg/0.5 Ml Syr) 0.5 mg IV NOW STA Stop: 12/12/23 14:12 Last Admin: 12/12/23 14:26 Dose: 0.5 mg Documented By: FRANTZ Hydromorphone HCl (Hydromorphone Inj 0.5 Mg/0.5 Ml Syr) 0.5 mg IV NOW STA Stop: 12/12/23 15:40 Last Admin: 03/15/24 15:58 Dose: 0.5 mg Documented By: YARA Sodium Chloride (Nss) 1,000 mls @ 999 mls/hr IV .Q1H1M ONE Stop: 12/12/23 15:11 Last Infusion: 12/12/23 17:24 Dose: Infused Documented By: Admin: 12/12/23 14:27 Dose: 999 mls/hr Documented By: FRANTZ Promethazine HCl (Phenergan) 25 mg in 51 mls @ 204 mls/hr IV NOW STA Stop: 12/12/23 15:53 Last Infusion: 12/12/23 17:24 Dose: Infused Documented By: Admin: 12/12/23 15:58 Dose: 204 mls/hr Documented By: YARA Acetaminophen (Ofirmev) 1,000 mg in 100 mls @ 400 mls/hr IV NOW STA Stop: 12/12/23 18:33 Last Admin: 12/12/23 18:28 Dose: 400 mls/hr Documented By: YARA Ioversol (Optiray 320 100ml) 93 ml IV ONCE ONE Stop: 12/12/23 14:54 Last Admin: 12/12/23 14:53 Dose: 93 ml Documented By: JESÚS Ketorolac Tromethamine (Ketorolac Tromethamine 15 Mg/Ml Vial) 10 mg IV NOW ONE Stop: 12/12/23 14:12 Last Admin: 12/12/23 14:25 Dose: 10 mg Documented By: FRANTZ Ondansetron HCl (Ondansetron Inj 2 Mg/Ml 2 Ml Vial) 4 mg IV NOW STA Stop: 12/12/23 14:12 Last Admin: 12/12/23 14:26 Dose: 4 mg Documented By: FRANTZ Medical Decision Making Medical Records Attestation: I reviewed the patient's medical records. Laboratory Data Attestation: I reviewed the patient's lab results. 12/12/23 11:50 12/12/23 11:50 Lab Results 12/12/23 12/12/23 12/12/23 Range/Units 11:50 12:01 14:33 WBC 10.10 (4.8-10.8) K/ul RBC 4.68 (4.20-5.40) M/uL Hgb 13.0 (12.0-16.0) g/dl Hct 39.0 (37.0-47.0) % MCV 83.3 (80.0-100.0) fL MCH 27.8 (25.0-34.0) pg MCHC 33.3 (32.0-36.0) g/dL RDW Std Deviation 48.9 H (36.4-46.3) fL RDW Coeff of Jessica 16.4 H (11.5-14.5) % Plt Count 541 H (130-400) K/uL MPV 9.5 (9.4-12.4) fL Immature Gran % (Auto) 0.4 % Neut % (Auto) 66.2 % Lymph % (Auto) 23.1 % Mcpherson % (Auto) 9.7 % Eos % (Auto) 0.1 % Baso % (Auto) 0.5 % Neut # (Auto) 6.69 H (1.40-6.50) K/uL Lymph # (Auto) 2.33 (1.20-3.40) K/uL Mcpherson # (Auto) 0.98 H (0.11-0.59) K/uL Eos # (Auto) 0.01 (0.00-0.50) K/uL Baso # (Auto) 0.05 (0.00-0.20) K/uL Immature Gran # (Auto) 0.04 (0.01-0.20) K/uL Sodium 138 (136-145) mmol/L Potassium 3.4 L (3.5-5.1) mmol/L Chloride 101 (98-107) mmol/L Carbon Dioxide 22 (21-32) mmol/L Anion Gap 15 H (3-11) BUN 10 (6-23) mg/dl Creatinine 0.67 (0.6-1.2) mg/dl Est Cr Clr Drug Dosing 101.4 ml/min Est GFR ( Amer) 124.8 ml/min Est GFR (Non-Af Amer) 107.7 ml/min BUN/Creatinine Ratio 14.9 (10-20) Glucose 110 H (70-99(Fasting)) mg/dl Calcium 8.7 (8.6-10.3) mg/dl Magnesium 1.6 L (1.7-2.4) mg/dl Total Bilirubin 0.3 (0.2-1.0) mg/dl AST 18 (13-39) U/L ALT 14 (7-52) U/L Alkaline Phosphatase 112 H (34-104) U/L Total Protein 7.4 (6.0-8.3) gm/dl Albumin 4.2 (3.4-5.0) gm/dl Globulin 3.2 (2.5-4.0) gm/dl Albumin/Globulin Ratio 1.3 (0.9-2) Lipase 16 (11-82) U/L HCG, Qual Negative (Negative) Urine Color Dark Yellow Urine Appearance Cloudy A (Clear) Urine pH 8.5 H (4.5-7.5) Ur Specific [place] 1.026 (1.000-1.030) Urine Protein 1+ H (Negative) Urine Glucose (UA) Negative (Negative) Urine Ketones 1+ H (Negative) Urine Blood Negative (Negative) Urine Nitrite Negative (Negative) Urine Bilirubin Negative (Negative) Urine Urobilinogen Negative (Negative) Ur Leukocyte Esterase Negative (Negative) Urine WBC (Auto) 1-5 (0-5) /hpf Urine RBC (Auto) 10-30 H (0-4) /hpf U Hyaline Cast (Auto) 1-5 (0-5) /lpf U Epithel Cells (Auto) >30 H (0-5) /lpf Urine Bacteria (Auto) Negative (Negative) Urine Opiates Screen Neg (Neg) Ur Methadone, Qual Neg (Neg) Urine Barbiturates Neg (Neg) Ur Phencyclidine (PCP) Neg (Neg) U Amphetamin/Meth Scrn Neg (Neg) MDMA (Ecstasy) Screen Neg (Neg) U Benzodiazepines Scrn Neg (Neg) Ur Cocaine Metabolite Neg (Neg) U Marijuana (THC) Screen Pos H (Neg) Ethyl Alcohol mg/dL 33.1 H (<10.0) mg/dl Imaging Data Attestation: I personally reviewed and interpreted this imaging study as follows: My Impression: My interpretation of the CT with IV contrast of the abdomen and pelvis shows a pancolitis without evidence for bowel obstruction, worsening pancreatic dilatation, appendicitis or diverticulitis. Additional findings are as indicated in the following radiologist report, which was reviewed with concurrence. Radiologist's Impression: Abdomen/Pelvis CT 12/12/23 14:[address] WITH IV CONTRAST CT DOSE: 755.69 mGy.cm HISTORY: Acute generalized abdominal pain Abd pain TECHNIQUE: Multiaxial CT images of the abdomen and pelvis were performed following the IV administration of 93 cc of Optiray, A dose lowering technique was utilized adhering to the principles of ALARA. COMPARISON STUDY: CT 11/30/2023 FINDINGS: Clear lung bases. No free air. There is no significant biliary ductal dilatation status post cholecystectomy. Calcifications within the pancreatic head and uncinate process are unchanged. [place] subtle stranding adjacent the pancreas is similar to prior exams. No definite peripancreatic inflammation. There is no pancreatic ductal dilatation. No peripancreatic fluid collections are present. Intrauterine device is in place. 2.7 cm dominant right ovarian follicle. Atherosclerosis of the aorta. No evidence for a bowel obstruction. Ahaustral fold pattern is again seen throughout the majority of the large bowel with circumferential wall thickening. The small bowel is within normal limits. The appendix is normal. There are a few nonobstructing calculi in the inferior pole left kidney measuring up to 4 mm. Punctate nonobstructing calculus inferior pole right kidney. Decompressed urinary bladder with wall thickening. There is no hydronephrosis. Spleen, and adrenal glands are unremarkable. IMPRESSION: 1. Findings are again suggestive of a nonspecific pancolitis which is similar to the 11/30/2023 exam. 2. No bowel obstruction or pneumoperitoneum. 3. Evidence of chronic pancreatitis. 4. Normal appendix. 5. Left nephrolithiasis. 6. Cholecystectomy. ACT 112: Negative or not required by law. The above report was generated using voice recognition software. It may contain grammatical, syntax or spelling errors. Electronically signed by: Zachary Amezcua M.D. 12/12/2023 3:28 PM [facility] Narrative See ED Course section for further details of today's visit. The patient presents the emergency department with complaint of ongoing abdominal pain, nausea and vomiting that she is unable to control at home with oral Phenergan. The patient was admitted to our facility 2 months ago with similar symptoms. The patient did have outpatient follow-up with [facility], and has a colonoscopy scheduled for next week. The patient was administered IV Dilaudid and both Zofran and Phenergan without any significant relief. I did reach out to the hospitalist service for further evaluation. Workup today does show a pancolitis on CT imaging. No obstruction is noted. Laboratory studies also do not show evidence for acute on chronic pancreatitis, cholecystitis, hepatitis, UTI or electrolyte abnormality. The patient is afebrile and does not have any leukocytosis to suggest infectious etiology. Serum was negative. Impression Intractable abdominal pain, Chronic pancreatitis, Nausea and vomiting, Pancolitis, Alcohol use disorder Discharge Plan Visit Data Chief Complaint: Abdominal Pain Stated Complaint: THROWING UP SINCE SUN/ABDOMINAL PAIN ED Provider: Laina Weaver ED Midlevel Provider: Nacho Us Discharge Problem: Intractable abdominal pain, Chronic pancreatitis, Nausea and vomiting, Pancolitis, Alcohol use disorder Forms Stand Alone Forms: [employer] [facility] [employer] Prescriptions Prescriptions: No Action medical marijuana 1 puff inhalation HS PRN (Reason: Sleep) Rx Instructions: VAPE folic acid 1 mg tablet See Rx Instructions .ROUTE .COMPLEX Qty: 90 3RF Dose Instruction: TAKE 1 TABLET BY MOUTH EVERY DAY IN THE MORNING Rx Instructions: TAKE 1 TABLET BY MOUTH EVERY DAY IN THE MORNING promethazine 25 mg tablet 25 mg PO Q6H PRN (Reason: nausea and vomiting) Qty: 30 3RF potassium chloride [Klor-Con M20] 20 mEq tablet,ER particles/crystals 20 meq PO QAM Qty: 90 3RF sumatriptan succinate 100 mg tablet 100 mg PO DAILY PRN (Reason: migraine/headache) Qty: 20 0RF Rx Instructions: TAKE 1 TABLET BY MOUTH NEEDED FOR MIGRAINE/HEADACHE. MAY REPEAT 1 DOSE AFTER 1-2 HOURS Creon 36,000-114,000- 180,000 unit capsule,delayed release(DR/EC) 3 cap PO TID 90 Days Qty: 810 3RF Rx Instructions: With meals Eliquis 5 mg tablet 5 mg PO BID Qty: 90 3RF gabapentin 600 mg tablet 600 mg PO TID 30 Days Qty: 90 3RF methocarbamol 750 mg tablet See Rx Instructions .ROUTE .COMPLEX Qty: 90 0RF Dose Instruction: TAKE 1 TABLET BY MOUTH THREE TIMES A DAY Rx Instructions: TAKE 1 TABLET BY MOUTH THREE TIMES A DAY nicotine 21-14-7 mg/24 hr patch, TD daily, sequential See Rx Instructions transdermal .COMPLEX Qty: 56 0RF Rx Instructions: apply 1-21 mg NICOTINE PATCH daily for 28 days; follow with 1-14 mg PATCH daily for 14 days, then 1-7mg PATCH daily for 14 days transdermal nicotine 7 mg/24 hr patch 24 hour 1 patch transdermal Q24H 14 Days Qty: 14 0RF Rx Instructions: 14 mg/day) for 6 weeks, followed by (7 mg/day) for 2 weeks. clonazepam 0.5 mg tablet 0.75 mg PO DAILY 8 Days Qty: 12 0RF Rx Instructions: take 0.5 mg in am and 0.25 mg in pm albuterol sulfate [Ventolin HFA] 90 mcg/actuation HFA aerosol inhaler 2 puff inhalation Q4H PRN (Reason: cough/wheeze/shortness of breath) Qty: 1 0RF ondansetron 4 mg tablet,disintegrating 4 mg PO Q6H PRN (Reason: Nausea And Vomiting) 30 Days Qty: 60 2RF Rx Instructions: TAKE 1 TABLET BY MOUTH EVERY 6 HOURS NEEDED FOR NAUSEA thiamine HCl (vitamin B1) 100 mg tablet 300 mg PO QAM magnesium citrate 100 mg tablet 100 mg PO QAM nicotine (polacrilex) 4 mg gum 4 mg buccal Q2H Qty: 20 0RF oxycodone 5 mg tablet 5 mg PO TID PRN (Reason: pain) Qty: 10 0RF (DME) TENS unit and electrodes Combo Pack See Rx Instructions .Route Qty: 1 0RF Rx Instructions: As directed trazodone 50 mg tablet 50 mg PO DAILY Qty: 30 2RF nicotine 21 mg/24 hr patch 24 hour 1 patch transdermal DAILY 42 Days Qty: 28 1RF Rx Instructions: 14 mg/day for 6 weeks, followed 7 mg/day for 2 weeks. multivitamin Tablet 1 tab PO QAM mecobalamin (vitamin B12) [B12 Active] 1,000 mcg Tablet,Chewable 1,000 mcg PO QAM clindamycin phosphate 1 % gel 1 applic topical DAILY PRN (Reason: Acne) Rx Instructions: APPLY TOPICALLY DAILY FOR ACNE calcium carbonate 600 mg calcium (1,500 mg) tablet 600 mg PO QAM pantoprazole 40 mg tablet,delayed release (DR/EC) 40 mg PO BID cholecalciferol (vitamin D3) 250 mcg (10,000 unit) capsule 250 mcg PO QAM baclofen 20 mg tablet 20 mg PO BID PRN (Reason: neck pain/muscle spasm) Qty: 1 0RF Referrals Referrals: Kenzie Bhatt CRNP [Primary Care Provider] - Discharge Problem: Chronic pancreatitis Qualifiers: Pancreatitis type: unspecified pancreatitis type Qualified Code(s): K86.1 - Other chronic pancreatitis Nausea and vomiting Qualifiers: Vomiting type: unspecified Qualified Code(s): R11.2 - Nausea with vomiting, unspecified
[2023-12-12] MEDS: SODIUM CHLORIDE 0.9% 1,000 ML IV ONE (14:27)
[2023-12-12 14:50] LABS: Appearance Urine Cloudy (Clear); Bacteria Urine Automated Negative (Negative); Bilirubin Urine Negative (Negative); Blood Urine Negative (Negative); Color Urine Dark Yellow; Epithelial Cell Urine Auto >30 /lpf (0-5); Glucose Urine UA Negative (Negative); Ketones Urine 1+ (Negative); Leukocyte Esterase Urine Negative (Negative); Nitrite Urine Negative (Negative); Specific Gravity Urine 1.026 (1.000-1.030); Urobilinogen Urine Negative (Negative); pH Urine 8.5 (4.5-7.5)
[2023-12-12] MEDS: OPTIRAY 320 100ml IV ONE (14:53)
[2023-12-12 14:58] LABS: Protein Urine 1+ (Negative)
[2023-12-12 15:13] LABS: Amphetamines+Metham, Urine Neg (Neg); Barbiturates, Urine Neg (Neg); Benzodiazepine, Urine Neg (Neg); Cocaine, Urine Neg (Neg); MDMA (Ecstacy), Urine Neg (Neg); Marijuana, Urine Pos (Neg); Methadone, Urine Neg (Neg); Opiate, Urine Neg (Neg); Phencyclidine, Urine Neg (Neg)
--- NOTE | 2023-12-12 15:30 | CT Scan Report ---
ABDOMEN AND PELVIS CT WITH IV CONTRAST CT DOSE: 755.69 mGy.cm HISTORY: Acute generalized abdominal pain Abd pain TECHNIQUE: Multiaxial CT images of the abdomen and pelvis were performed following the IV administrat ion of 93 cc of Optiray, A dose lowering technique was utilized adhering to the principles of ALARA. COMPARISON STUDY: CT 11/30/2023 FINDINGS: Clear lung bases. No free air. There is no significant biliary ductal dilatation status pos t cholecystectomy. Calcifications within the pancreatic head and uncinate process are unchanged. [place] subtle stranding adjacent the pancreas is similar to prior exams. No definite peripancreatic inf lammation. There is no pancreatic ductal dilatation. No peripancreatic fluid collections are present. Intrauterine device is in place. 2.7 cm dominant right ovarian follicle. Atherosclerosis of the aorta . No evidence for a bowel obstruction. Ahaustral fold pattern is again seen throughout the majority o f the large bowel with circumferential wall thickening. The small bowel is within normal limits. The appendix is normal. There are a few nonobstructing calculi in the inferior pole left kidney measuring up to 4 mm. Punctate nonobstructing calculus inferior pole right kidney. Decompressed urinary bladde r with wall thickening. There is no hydronephrosis. Spleen, and adrenal glands are unremarkable. IMPRESSION: 1. Findings are again suggestive of a nonspecific pancolitis which is similar to the 11/30/2023 exam. 2. No bowel obstruction or pneumoperitoneum. 3. Evidence of chronic pancreatitis. 4. Normal appendix. 5. Left nephrolithiasis. 6. Cholecystectomy. ACT 112: Negative or not required by law. The above report was generated using voice recognition software. It may contain grammatical, syntax o r spelling errors. Electronically signed by: Zachary Amezcua M.D. 12/12/2023 3:28 PM
[2023-12-12] MEDS: PROMETHAZINE 25 MG/51 ML BAG IV STA (15:58)
--- NOTE | 2023-12-12 17:42 | History & Physical Report ---
Date of Service December 12, 2023 Assessment & Plan (1) Intractable abdominal pain: Plan: Epigastric pain and N/V/D since Wednesday 12/06 Hx of recent [place] admission for similar symptoms; at that time, suspected hyperalgesia with components of malabsorption and/or gastroparesis Patient follows with [facility], and has an appointment scheduled for next week No leukocytosis; afebrile Mildly elevated alk phos at 112 EKG ordered/pending; follow electrolytes in the setting of GI losses PCR stool ordered, pending IV fluid resuscitation with LR at 150 mL/hr x3 Pantoprazole 40mg IV BID Acetaminophen 1000 mg IV q8h as needed for pain 13 Dilaudid 0.51.0 IV q4h as needed for breakthrough pain Zofran as needed for nausea and vomiting A.m. CBC, BMP, mag (2) Pancolitis: Plan: A/P CT revealed nonspecific pancolitis; s/p cholecystectomy; normal appendix Gastroenterology consulted Pain control (as above) (3) Chronic pancreatitis: Plan: Continue Creon Lipase WNL (4) Marijuana use: Plan: Marijuana + on arrival Patient endorses using medical marijuana at home Unclear if this is contributing to emesis (5) Tobacco abuse: Plan: Current everyday tobacco cigarette smoker; 0.5 PPD Counseling on smoking cessation Daily nicotine patch application/removal while inpatient (6) History of ETOH abuse: Plan: Ethyl alcohol level elevated at 33 on arrival She reports she mistakenly drank her mother's [place] the morning of 12/11 (7) History of DVT (deep vein thrombosis): Plan: Continue Eliquis (8) Hypomagnesemia: Plan: 1.6 on arrival; repleted Follow a.m. mag (9) Chronic neck pain: Plan: Continue gabapentin, Robaxin Baclofen as needed (10) Polypharmacy: Plan Disposition: Admit to [facility] telemetry Full code Clear liquid diet and advance as tolerated VTE PPx: On Eliquis History of Present Illness Chief Complaint: Abdominal pain and N/V/D Primary Care Provider: MARYBEL Fuentes is a 42-year-old female with PMH of chronic pancreatitis, s/p cholecystectomy, alcohol use disorder, anxiety with panic attacks, gastritis, GERD, chronic migraines, chronic neck pain, chronic back pain, insomnia, and current tobacco cigarette use. She presented for worsening epigastric pain, and intractable nausea/vomiting since Wednesday 12/06. She reports that the pain has been a constant, dull achy pain, with occasional shooting pain in her epigastric region. She does endorse mild back pain but believes this is secondary to vomiting. No radiation between the shoulder blades or down into the lower stomach. She rates the pain as 7/10 after receiving pain medication in the ED; 10/10 at worst. Pain is better when sitting up. Patient has not been tolerating solids, but has been tolerating fluids at home. She notes that she has been taking Tylenol for the pain, but this does not help; she is unable to take Aleve, Advil, or NSAIDs due to history of blood clots; on Eliquis. Patient took her morning medications, but immediately threw them up; she is concerned that she has had trouble keeping down her medications such as Eliquis. Only recent change in medication is that she stopped Prozac. No recent change in diet. She reports she has vomited around 20 times since Friday. No hemoptysis. Patient has used some medical marijuana this past week. She is also a current everyday tobacco cigarette smoker; 0.5 PPD. She does endorse accidental alcohol use this morning; reportedly drink some of her mom's Yulee which was in a karly jar. She follows with [facility] gastroenterology, and does have an appointment for colonoscopy next week. Patient is hypertensive at 150/104, and tachycardic at 109 bpm at time of admission. ED course: Hydromorphone 0.5 mg x 2 Toradol 10 mg NSS 1000 mL Phenergan 25 mg Zofran 4 mg ROS: Patient endorses intractable epigastric pain, nausea and vomiting. Patient denies fever, chills, night sweats, body aches, headache, dizziness, chest pain, chest palpitations, cough, SOB, urinary symptoms, blood in urine or stool, or numbness/tingling/pain in the arms or legs. Allergies Allergy/AdvReac Type Severity Reaction Status Date / Time buspirone [From BuSpar] Allergy Severe Unconscious, Verified 12/03/23 09:06 seizures quetiapine [From Seroquel] Allergy Severe Unconscious, Verified 12/03/23 09:06 seizures citalopram [From Celexa] AdvReac Intermediate Vomiting Verified 12/03/23 09:06 morphine AdvReac Intermediate "MAKES ME Verified 12/03/23 09:06 SICK(VOMITING)" vilazodone [From Viibryd] AdvReac Vomiting Verified 12/03/23 09:06 Home Medications Medication Instructions Recorded Confirmed Type multivitamin 1 tab PO QAM 03/18/19 12/12/23 History mecobalamin (vitamin B12) 1,000 1,000 mcg PO QAM 11/10/19 12/12/23 History mcg chewable tablet (B12 Active) thiamine HCl (vitamin B1) 100 mg 300 mg PO QAM 04/17/21 12/12/23 History tablet magnesium citrate 100 mg tablet 100 mg PO QAM 05/23/22 12/12/23 History clindamycin phosphate 1 % topical 1 applic topical DAILY PRN Acne 02/17/23 12/12/23 History gel medical marijuana 1 puff inhalation HS PRN Sleep 05/21/23 12/12/23 History TENS unit and electrodes combo pack #1 ea 07/10/23 10/22/23 Rx calcium carbonate 600 mg calcium 600 mg PO QAM 08/18/23 12/12/23 History (1,500 mg) tablet cholecalciferol (vitamin D3) 250 250 mcg PO QAM 08/18/23 12/12/23 History mcg (10,000 unit) capsule folic acid 1 mg tablet See Rx Instructions .Route 08/18/23 12/12/23 Rx .COMPLEX #90 tabs pantoprazole 40 mg tablet,delayed 40 mg PO BID 08/18/23 12/12/23 History release baclofen 20 mg tablet 20 mg PO BID PRN neck pain/muscle 08/25/23 12/12/23 Rx spasm #1 tab albuterol sulfate 90 mcg/actuation 2 puff inhalation Q4H PRN 08/27/23 12/12/23 Rx aerosol inhaler (Ventolin HFA) cough/wheeze/shortness of breath #1 inhaler ondansetron 4 mg disintegrating 4 mg PO Q6H PRN Nausea And 08/27/23 12/12/23 Rx tablet Vomiting 30 days #60 tabs promethazine 25 mg tablet 25 mg PO Q6H PRN nausea and 09/08/23 12/12/23 Rx vomiting #30 tabs nicotine (polacrilex) 4 mg gum 4 mg buccal Q2H #20 ea 09/24/23 12/12/23 Rx potassium chloride 20 mEq 20 meq PO QAM #90 tabs 10/06/23 12/12/23 Rx tablet,extended release(part/cryst) (Klor-Con M) sumatriptan succinate 100 mg tablet 100 mg PO DAILY PRN 10/07/23 12/12/23 Rx migraine/headache #20 tabs abepch-lifxlznm-kxqchio 3 cap PO TID Abdominal Discomfort 10/23/23 12/12/23 Rx 36,000-114,000-180,000 unit 90 days #810 caps capsule,delay rel (Creon) oxycodone 5 mg tablet 5 mg PO TID PRN pain #10 tabs 10/28/23 12/12/23 Rx apixaban 5 mg tablet (Eliquis) 5 mg PO BID #90 tabs 11/17/23 12/12/23 Rx gabapentin 600 mg tablet 600 mg PO TID 30 days #90 tabs 11/17/23 12/12/23 Rx methocarbamol 750 mg tablet See Rx Instructions .Route 11/17/23 12/12/23 Rx .COMPLEX #90 tabs nicotine See Rx Instructions transdermal 11/19/23 12/12/23 Rx 21mg/24hr-14mg/24hr-7mg/24hr daily .COMPLEX #56 patches transderm patches,sequentl nicotine 21 mg/24 hr daily 1 patch transdermal DAILY 6 weeks 12/03/23 12/12/23 Rx transdermal patch #28 ea nicotine 7 mg/24 hr daily 1 patch transdermal Q24H 2 weeks 12/03/23 12/12/23 Rx transdermal patch #14 ea trazodone 50 mg tablet 50 mg PO DAILY #30 tabs 12/03/23 12/12/23 Rx clonazepam 0.5 mg tablet 0.75 mg (1.5 x 0.5 mg) PO DAILY 8 12/05/23 12/12/23 Rx days #12 tabs Past Med/Surg History Medical History (Updated 12/12/23 @ 18:47 by Nacho Us) History of DVT (deep vein thrombosis) Cervical spondylosis Cervical radiculopathy Fracture of middle phalanx of finger of right hand Fracture of third metacarpal bone of right hand Distal radius fracture, right Fracture of distal phalanx of finger MCL sprain of right knee Toe fracture, left Sleeping difficulty Anxiety and depression Marijuana use Tendinitis of right rotator cuff Pancreatic pseudocyst Acute pancreatitis Alcohol abuse Pancreatitis alcoholic Acne Kidney failure 2009 (RESOLVED/SAW A DIELECTRIC TESTER) Liver enzyme elevation GERD (gastroesophageal reflux disease) Panic attacks Back pain, chronic Chronic neck pain Insomnia PTSD (post-traumatic stress disorder) Pancreatitis, alcoholic, acute Peptic ulcer disease 2 YEARS AGO DX Acute gallstone pancreatitis Hiatal hernia Migraines Surgical History History of breast biopsy History of esophagogastroduodenoscopy (EGD) 07/02/19- Dr. Gala Willett "LAST APRIL" History of esophagogastroduodenoscopy (EGD) History of cholecystectomy History of tooth extraction History of lumpectomy of right breast BENIGN Family History Father Family history of diabetes mellitus Myocardial infarction Stroke Hypertension Grandfather (Maternal) Family history of diabetes mellitus Grandmother (Maternal) Family history of diabetes mellitus Hypertension Cancer Mother Hypothyroidism Grandfather (Paternal) Cancer Heart problem Grandmother (Paternal) Hypertension Denies family history of Ovarian cancer Prostate cancer Breast cancer Colorectal cancer Social History Smoking Status: Never smoker Tobacco Type: Cigarettes Cigarettes Per Day: Half a pack a day.; Second Hand Exposure: Yes; Do You Dip or Chew Tobacco: No; Hx Alcohol Use: No Hx Substance Use: Yes Last Used Substance: Hours (ago) Last Used Substance Other:: yesterday Substance Use Type Other:: Smokes Kurt Preferred Language: [place] Communication Ability: Effective Visual Impairment: No Limitations Hearing Ability: Normal Stevedoring Supervisor Required: No Beliefs That Will Affect Care: None marital status: Single Current Living Situation: Parent Current Living Situation Comment: lives at home with mom current occupational status: employed current occupation: at [employer] How many Children do You have: 0 Feels Safe at Home: Yes Childhood Exposure to Second-Hand Smoke: No Diet: regular Diet Comment: regular Dental Care, Regularly: Yes Physical Activity Frequency: Does not Exercise Seatbelt Use: always Sunscreen Use: Yes Do you think of yourself as: straight/heterosexual Assistive Devices: Glasses Review of Systems Review of Systems: See HPI above Physical Exam Physical Exam: General: Moderate physical distress secondary to epigastric pain; pallor; anxious; non-toxic appearing; cooperative; SpO2 96% on RA HEENT: normocephalic, atraumatic; PERRLA; moist mucus membrane; vision and hearing grossly intact Neck: supple; no lymphadenopathy; trachea midline Skin: warm, dry without signs of tenting; no cyanosis; no rashes, bruising, lesions, or erythema noted CV: chest wall NTP; RR, tachycardic at 107 bpm; S1/S2 normal; no murmurs/rubs/gallops; pulses intact and symmetric at radial, DP, and PT Lungs: no acute respiratory distress; symmetrical chest wall expansion; clear br eath sounds across all lung ramirez w/o adventitious sounds; no wheezing ABD: Epigastric region TTP; hyperactive bowel sounds present; no rebound/guarding; no distention; no rashes, bruising, or signs of active bleeding on the abdomen MSK: no tics or fasciculations; no edema noted in the LEs b/l, nonerythematous Neuro: A&Ox3; normal mood and affect; fluent speech; no focal deficits; sensation grossly intact in the LEs b/l Results & Data Results & Data Vital Signs (Past 12 Hours) Vital Signs Temp Pulse Pulse Resp BP BP Pulse Ox 12/12/23 17:00 109 H 19 150/104 H 96 12/12/23 16:26 98 H 14 132/94 96 12/12/23 16:26 91 H 12/12/23 15:07 98 H 18 148/99 H 100 12/12/23 14:32 105 H 18 123/99 100 12/12/23 11:38 36.3 C L 136 H 16 126/92 98 O2 Del Method 12/12/23 17:00 Room Air 12/12/23 16:26 Room Air 12/12/23 16:26 12/12/23 15:07 Room Air 12/12/23 14:32 Room Air 12/12/23 11:38 Laboratory Results Abnormal lab results 12/12/23 12/12/23 12/12/23 Range/Units 11:50 12:01 14:33 RDW Std Deviation 48.9 H (36.4-46.3) fL RDW Coeff of Jessica 16.4 H (11.5-14.5) % Plt Count 541 H (130-400) K/uL Neut # (Auto) 6.69 H (1.40-6.50) K/uL Charles # (Auto) 0.98 H (0.11-0.59) K/uL Potassium 3.4 L (3.5-5.1) mmol/L Anion Gap 15 H (3-11) Glucose 110 H (70-99(Fasting)) mg/dl Magnesium 1.6 L (1.7-2.4) mg/dl Alkaline Phosphatase 112 H (34-104) U/L Urine Appearance Cloudy A (Clear) Urine pH 8.5 H (4.5-7.5) Urine Protein 1+ H (Negative) Urine Ketones 1+ H (Negative) Urine RBC (Auto) 10-30 H (0-4) /hpf U Epithel Cells (Auto) >30 H (0-5) /lpf U Marijuana (THC) Screen Pos H (Neg) Ethyl Alcohol mg/dL 33.1 H (<10.0) mg/dl Diagnostic Findings Abdomen/Pelvis CT 12/12/23 14:[address] WITH IV CONTRAST CT DOSE: 755.69 mGy.cm HISTORY: Acute generalized abdominal pain Abd pain TECHNIQUE: Multiaxial CT images of the abdomen and pelvis were performed following the IV administration of 93 cc of Optiray, A dose lowering technique was utilized adhering to the principles of ALARA. COMPARISON STUDY: CT 11/30/2023 FINDINGS: Clear lung bases. No free air. There is no significant biliary ductal dilatation status post cholecystectomy. Calcifications within the pancreatic head and uncinate process are unchanged. [place] subtle stranding adjacent the pancreas is similar to prior exams. No definite peripancreatic inflammation. There is no pancreatic ductal dilatation. No peripancreatic fluid collections are present. Intrauterine device is in place. 2.7 cm dominant right ovarian follicle. Atherosclerosis of the aorta. No evidence for a bowel obstruction. Ahaustral fold pattern is again seen throughout the majority of the large bowel with circumferential wall thickening. The small bowel is within normal limits. The appendix is normal. There are a few nonobstructing calculi in the inferior pole left kidney measuring up to 4 mm. Punctate nonobstructing calculus inferior pole right kidney. Decompressed urinary bladder with wall thickening. There is no hydronephrosis. Spleen, and adrenal glands are unremarkable. IMPRESSION: 1. Findings are again suggestive of a nonspecific pancolitis which is similar to the 11/30/2023 exam. 2. No bowel obstruction or pneumoperitoneum. 3. Evidence of chronic pancreatitis. 4. Normal appendix. 5. Left nephrolithiasis. 6. Cholecystectomy. ACT 112: Negative or not required by law. The above report was generated using voice recognition software. It may contain grammatical, syntax or spelling errors. Electronically signed by: Zachary Amezcua M.D. 12/12/2023 3:28 PM Code Status & VTE Plan Code Status Full code VTE Prophylaxis Plan VTE Prophylaxis will be ordered: Yes Supervising Physician Co-Signing Physician Notes Patient seen and examined, chart reviewed, case discussed with Bunny Ramon and I agree with the assessment and plan as above except as otherwise noted Labs and images reviewed 42yo F with a pmhx of chronic pancreatitis, etoh/tobacco use in recovery, s/p emery, marijuana, gastritis, and recurrent gastroparesis and abdominal pain which typically impoves with IV antiemetics and pain control. Current pain is similar to prior. IMproving with meds. NO leukocytosis. CT with nonspecific pancolotitis similar to 11/29, no evidence of obstruction or perforation. +chornic pancreatitis. Patient has had pancolitis on prior CT although this was not present prior to event. Bio fire has been ordered. She follows with [facility] and is scheduled for a colonoscopy next month. Did bedside assessment she reports that she felt a little bit better with initial meds but is having return of nausea. She feels she has had a little diarrhea but her symptoms are mostly nausea and vomiting predominant. Abdomen is with diffuse mild tenderness although soft and she denies rebound tenderness. There is no guarding/rigidity. Agree w/ assessment and management above. PG Care Time/CCT Total # of Minutes Spent Total Time Spent with Patient: Total time spent is greater than 50% in coordination of care (as documented) at patient's floor/unit and/or counseling patient: C[place] [address] INT INP/OBS CARE 3/75MIN Patient Type Established History Comprehensive Exam Comprehensive Medical Decision Making High Complexity Diagnoses Intractable abdominal pain R10.9 Pancolitis K51.00 Chronic pancreatitis K86.1 Marijuana use F12.90 Tobacco abuse Z72.0 History of ETOH abuse F10.11 History of DVT (deep vein thrombosis) Z86.718 Hypomagnesemia E83.42 Chronic neck pain M54.2; G89.29 Polypharmacy Z79.899
[2023-12-12] MEDS: ACETAMINOPHEN 1,000 MG/100 ML VIAL IV STA (18:28)
[2023-12-12] MEDS: LACTATED RINGER'S 1,000 ML IV SCH (18:48)
[2023-12-12] MEDS: MAGNESIUM SULFATE / D5W 1 GM/100 ML BAG IV SCH (18:48)
[2023-12-12] MEDS: POTASSIUM CHLORIDE / WTR 10 MEQ/100 ML PLCT IV ONE (18:48)
[2023-12-12] MEDS ORDERED: ALBUTEROL HFA 8 GM INHALER INH PRN (20:18)
[2023-12-12] MEDS ORDERED: NALOXONE HCL 0.4 MG/1 ML VIAL/CARP IV PRN (20:18)
[2023-12-12] MEDS: HYDROmorphone INJ 1 MG/ML SYRINGE IV STA (20:19)
[2023-12-12] MEDS: clonazePAM 0.5 MG TAB PO SCH (21:16)
[2023-12-12] MEDS: METHOCARBAMOL 750 MG TABLET PO SCH (21:16)
[2023-12-12] MEDS: APIXABAN 5 MG TABLET PO SCH (21:17)
[2023-12-12] MEDS: GABAPENTIN 600 MG TAB PO SCH (21:17)
[2023-12-12] MEDS: PANCREAZE (LIPASE 10,500U) CAP PO SCH (21:18)
[2023-12-12] MEDS: PANTOprazole 40 MG in SYRINGE 0 ML IV SCH (21:20)
[2023-12-12] MEDS: ONDANSETRON INJ 2 MG/ML 2 ML VIAL IV PRN (22:54)
[2023-12-13] MEDS: HYDROmorphone INJ 0.5 MG/0.5 ML SYR IV PRN (01:08)
[2023-12-13] MEDS: PROMETHAZINE 12.5 MG/50.5 ML BAG IV STA (04:35)
[2023-12-13 05:10] LABS: Basophils # (auto) 0.04 K/uL (0.00-0.20); Basophils % (auto) 0.5 %; Eosinophils # (auto) 0.07 K/uL (0.00-0.50); Eosinophils % (auto) 0.8 %; Hematocrit (blood only) 35.3 % (37.0-47.0); Hemoglobin 11.2 g/dl (12.0-16.0); Immature Granulocytes # (auto) 0.02 K/uL (0.01-0.20); Immature Granulocytes % (auto) 0.2 %; Lymphocytes # (auto) 3.23 K/uL (1.20-3.40); Lymphocytes % (auto) 38.6 %; Mean Corpuscular Hemoglobin 27.7 pg (25.0-34.0); Mean Corpuscular Hgb Conc 31.7 g/dL (32.0-36.0); Mean Corpuscular Volume 87.4 fL (80.0-100.0); Mean Platelet Volume 9.4 fL (9.4-12.4); Monocytes # (auto) 1.03 K/uL (0.11-0.59); Monocytes % (auto) 12.3 %; Neutrophils # (auto) 3.98 K/uL (1.40-6.50); Neutrophils % (auto) 47.6 %; Platelet Count 423 K/uL (130-400); RDW Coefficient of Variation 16.5 % (11.5-14.5); Red Blood Count 4.04 M/uL (4.20-5.40); White Blood Count 8.37 K/ul (4.8-10.8)
[2023-12-13 05:15] LABS: BUN Creatinine Ratio 15.9 (10-20); Calcium 7.7 mg/dl (8.6-10.3); Creatinine Clr Calc Pharmacy 107.8 ml/min; Est GFR (African American) 127.3 ml/min; Est GFR (Non-African American) 109.9 ml/min; Magnesium 2.3 mg/dl (1.7-2.4); Potassium 3.1 mmol/L (3.5-5.1)
[2023-12-13] MEDS: ACETAMINOPHEN 1,000 MG/100 ML VIAL IV PRN (07:41)
[2023-12-13] MEDS: CYANOCOBALAMIN (B-12) 500 MCG TABLET PO SCH (08:00)
[2023-12-13] MEDS: FOLIC ACID 1 MG TAB PO SCH (08:00)
[2023-12-13] MEDS: traZODone HCL 50 MG TAB PO SCH (08:02)
[2023-12-13] MEDS: THIAMINE HCL 100 MG TAB PO SCH (08:02)
[2023-12-13] MEDS: POTASSIUM CHLORIDE CRTAB 20 MEQ TABCR PO SCH (08:02)
--- NOTE | 2023-12-13 08:06 | Hospitalist Progress Note ---
Date of Service December 13, 2023 Assessment & Plan (1) Intractable abdominal pain: Plan: Epigastric pain and N/V/D since Wednesday 12/06 Hx of recent [place] admission for similar symptoms; at that time, suspected hyperalgesia with components of malabsorption and/or gastroparesis Patient follows with [facility], and has an appointment scheduled for next week PCR stool ordered, pending IV fluid resuscitation with nss with potassium as his hypokalemic, magnesium normal after repletion Dilaudid 0.51.0 IV q3h as needed for breakthrough pain, caution as history of substance abuse since persistent pancolitis, confirmed on imaging, will likely benefit from GI eval not clear if inpt or outpt H/o chronic pancreatitis does not fit as acute issue and serum lipase is normal hypokalemia, will add potassium to ivf (2) Marijuana use: Plan: Marijuana + on arrival Patient endorses using medical marijuana at home Unclear if this is contributing to emesis/hyperemesis issues (3) Tobacco abuse: Plan: Current everyday tobacco cigarette smoker; 0.5 PPD Counseling on smoking cessation Daily nicotine patch application/removal while inpatient (4) History of ETOH abuse: Plan: Ethyl alcohol level elevated at 33 on arrival She reports she mistakenly drank her mother's [place] the morning of 12/11 (5) History of DVT (deep vein thrombosis): Plan: Continue chronic Eliquis (6) Chronic neck pain: Plan: Continue gabapentin, Robaxin Baclofen as needed Plan Full code Clear liquid diet and advance as tolerated VTE PPx: On Eliquis Admission and Anticipated Discharge Date Admission Date: December 12, 2023 Subjective pt states she feels improved only now with epigastric pain no lower quadrant pain or diarrhea at present Physical Exam Physical Exam: awake and alert abd is nabs, soft mild epigastric tenderness no rebound no guarding Results & Data Results & Data Vital Signs (Past 12 Hours) Vital Signs Pulse Pulse Pulse Resp BP Pulse Ox Pulse Ox 12/13/23 07:23 92 H 12/13/23 03:17 94 12/13/23 03:00 77 77 16 142/90 H 94 12/13/23 01:00 81 16 120/82 97 12/12/23 22:00 85 20 159/98 H 93 12/12/23 20:17 94 H O2 Del Method O2 Del Method 12/13/23 07:23 12/13/23 03:17 Room Air 12/13/23 03:00 Room Air 12/13/23 01:00 Room Air 12/12/23 22:00 Room Air 12/12/23 20:17 Laboratory Results review cbc review chemistry PG Care Time/CCT Total # of Minutes Spent Total Time Spent with Patient: Total time spent is greater than 50% in coordination of care (as documented) at patient's floor/unit and/or counseling patient: Coding Level of Care Code 55864 SUB INP/OBS CARE 3/50MIN Diagnoses Intractable abdominal pain R10.9 Marijuana use F12.90 Tobacco abuse Z72.0 History of ETOH abuse F10.11 History of DVT (deep vein thrombosis) Z86.718 Chronic neck pain M54.2; G89.29
[2023-12-13] MEDS: POTASSIUM CHLORIDE 40 MEQ in SODIUM CHLORIDE 0.9% 1,000 ML IV SCH (09:03)
[2023-12-13] MEDS: NICOTINE 14 MG/24 HR PATCH TD SCH (09:03)
[2023-12-13] MEDS: HYDROmorphone INJ 1 MG/ML SYRINGE IV PRN (10:09)
--- NOTE | 2023-12-13 10:32 | Consultation ---
Date of Consultation December 13, 2023 History of Present Illness Attending Physician: Damian Del Castillo MD History of Present Illness 42 yo F with PMH sig alcoholic use disorder, with h/o chronic abd pain followed by [facility], with prior dx of chronic panc, gastroparesis. She is now admitted for abd pain, n/v x 1 week. Pain localized to epigastrium, described as severe sharp constant pain that does not radiate and may worsen with PO intake. She has moderate nausea and vomiting with attempts at eating solid food; she is able to tolerate liquids. H/o chronic constipation; last BM this am and was described as complete. No NSAIDs. + MJ use. + recent alcohol use. + tobacco use. Denies chronic narcotics. Prev on Reglan - caused twitching. She is on Creon, baclofen, Zofran, BID PPI, Phenergan at home. Frequent ER visits, last was 11/29 and 10/[address] x 3 this year. ER VS sig for HTN/tachy, no fever. ER labs significant for + alcohol level. WBC WNL. Hgb 11 with normal MCV, baseline 12. AP slighltly increased, AST 18/ALT 14, Lipase WNL. CT is unremarkable - on my read, pancreas is WNL; retained solid food in stomach without abd distention; colon wall thick/submucosal fat dep that appears chronic at least since 08/21. At present, she reports severe epigastric pain and mild nausea. On exam, She appears comfortable but anxious. She is drinking fluids during my interview. She has mild grimes facies, facial plethora. Mouth is pink, slightly dry, no thrush. Her abdomen is not tympanic and not tender on deep palpation. Her skin is slightly dry. No edema. A/P: Chronic abdominal pain - DDX = functional pain; alcoholic gastritis; pain related to chronic panc, although no imaging evidence of chronic panc; gastroparesis; cannabinoid hyperemesis. - Emycin x 1 for gastroparesis. Can use Emend 125 mg IV x 1 if she has persistent nausea. I discussed need for abstinence from alcohol, tobacco; I also encouraged abstinance from MJ. Colon wall thick - F/u with primary GI for consideration for outpt colonoscopy. Allergies Allergy/AdvReac Type Severity Reaction Status Date / Time buspirone [From BuSpar] Allergy Severe Unconscious, Verified 12/03/23 09:06 seizures quetiapine [From Seroquel] Allergy Severe Unconscious, Verified 12/03/23 09:06 seizures citalopram [From Celexa] AdvReac Intermediate Vomiting Verified 12/03/23 09:06 morphine AdvReac Intermediate "MAKES ME Verified 12/03/23 09:06 SICK(VOMITING)" vilazodone [From Viibryd] AdvReac Vomiting Verified 12/03/23 09:06 Home Medications Medication Instructions Recorded Confirmed Type multivitamin 1 tab PO QAM 03/18/19 12/12/23 History mecobalamin (vitamin B12) 1,000 1,000 mcg PO QAM 11/10/19 12/12/23 History mcg chewable tablet (B12 Active) thiamine HCl (vitamin B1) 100 mg 300 mg PO QAM 04/17/21 12/12/23 History tablet magnesium citrate 100 mg tablet 100 mg PO QAM 05/23/22 12/12/23 History clindamycin phosphate 1 % topical 1 applic topical DAILY PRN Acne 02/17/23 12/12/23 History gel medical marijuana 1 puff inhalation HS PRN Sleep 05/21/23 12/12/23 History TENS unit and electrodes combo pack #1 ea 07/10/23 10/22/23 Rx calcium carbonate 600 mg calcium 600 mg PO QAM 08/18/23 12/12/23 History (1,500 mg) tablet cholecalciferol (vitamin D3) 250 250 mcg PO QAM 08/18/23 12/12/23 History mcg (10,000 unit) capsule folic acid 1 mg tablet See Rx Instructions .Route 08/18/23 12/12/23 Rx .COMPLEX #90 tabs pantoprazole 40 mg tablet,delayed 40 mg PO BID 08/18/23 12/12/23 History release baclofen 20 mg tablet 20 mg PO BID PRN neck pain/muscle 08/25/23 12/12/23 Rx spasm #1 tab albuterol sulfate 90 mcg/actuation 2 puff inhalation Q4H PRN 08/27/23 12/12/23 Rx aerosol inhaler (Ventolin HFA) cough/wheeze/shortness of breath #1 inhaler ondansetron 4 mg disintegrating 4 mg PO Q6H PRN Nausea And 08/27/23 12/12/23 Rx tablet Vomiting 30 days #60 tabs promethazine 25 mg tablet 25 mg PO Q6H PRN nausea and 09/08/23 12/12/23 Rx vomiting #30 tabs nicotine (polacrilex) 4 mg gum 4 mg buccal Q2H #20 ea 09/24/23 12/12/23 Rx potassium chloride 20 mEq 20 meq PO QAM #90 tabs 10/06/23 12/12/23 Rx tablet,extended release(part/cryst) (Klor-Con M) sumatriptan succinate 100 mg tablet 100 mg PO DAILY PRN 10/07/23 12/12/23 Rx migraine/headache #20 tabs drqtei-ecfkkgbg-tnvtyrt 3 cap PO TID Abdominal Discomfort 10/23/23 12/12/23 Rx 36,000-114,000-180,000 unit 90 days #810 caps capsule,delay rel (Creon) oxycodone 5 mg tablet 5 mg PO TID PRN pain #10 tabs 10/28/23 12/12/23 Rx apixaban 5 mg tablet (Eliquis) 5 mg PO BID #90 tabs 11/17/23 12/12/23 Rx gabapentin 600 mg tablet 600 mg PO TID 30 days #90 tabs 11/17/23 12/12/23 Rx methocarbamol 750 mg tablet See Rx Instructions .Route 11/17/23 12/12/23 Rx .COMPLEX #90 tabs nicotine See Rx Instructions transdermal 11/19/23 12/12/23 Rx 21mg/24hr-14mg/24hr-7mg/24hr daily .COMPLEX #56 patches transderm patches,sequentl nicotine 21 mg/24 hr daily 1 patch transdermal DAILY 6 weeks 12/03/23 12/12/23 Rx transdermal patch #28 ea nicotine 7 mg/24 hr daily 1 patch transdermal Q24H 2 weeks 12/03/23 12/12/23 Rx transdermal patch #14 ea trazodone 50 mg tablet 50 mg PO DAILY #30 tabs 12/03/23 12/12/23 Rx clonazepam 0.5 mg tablet 0.75 mg (1.5 x 0.5 mg) PO DAILY 8 12/05/23 12/12/23 Rx days #12 tabs Patient History Medical History (Updated 12/12/23 @ 18:47 by Nacho Us) History of DVT (deep vein thrombosis) Cervical spondylosis Cervical radiculopathy Fracture of middle phalanx of finger of right hand Fracture of third metacarpal bone of right hand Distal radius fracture, right Fracture of distal phalanx of finger MCL sprain of right knee Toe fracture, left Sleeping difficulty Anxiety and depression Marijuana use Tendinitis of right rotator cuff Pancreatic pseudocyst Acute pancreatitis Alcohol abuse Pancreatitis alcoholic Acne Kidney failure 2009 (RESOLVED/SAW A IRRIGATOR SPRINKLING SYSTEM) Liver enzyme elevation GERD (gastroesophageal reflux disease) Panic attacks Back pain, chronic Chronic neck pain Insomnia PTSD (post-traumatic stress disorder) Pancreatitis, alcoholic, acute Peptic ulcer disease 2 YEARS AGO DX Acute gallstone pancreatitis Hiatal hernia Migraines Surgical History History of breast biopsy History of esophagogastroduodenoscopy (EGD) 07/02/19- Dr. Gala Willett "LAST APRIL" History of esophagogastroduodenoscopy (EGD) History of cholecystectomy History of tooth extraction History of lumpectomy of right breast BENIGN Family History Father Family history of diabetes mellitus Myocardial infarction Stroke Hypertension Grandfather (Maternal) Family history of diabetes mellitus Grandmother (Maternal) Family history of diabetes mellitus Hypertension Cancer Mother Hypothyroidism Grandfather (Paternal) Cancer Heart problem Grandmother (Paternal) Hypertension Denies family history of Ovarian cancer Prostate cancer Breast cancer Colorectal cancer Social History Smoking Status: Former smoker Tobacco Type: Cigarettes Cigarettes Per Day: Half a pack a day.; Second Hand Exposure: Yes; Do You Dip or Chew Tobacco: No; Hx Alcohol Use: No Hx Substance Use: Yes Last Used Substance: Hours (ago) Last Used Substance Other:: yesterday Substance Use Type Other:: Smokes Marijuanna Preferred Language: Kyrgyz Communication Ability: Effective Visual Impairment: No Limitations Hearing Ability: Normal Director Of Entertainment Required: No Beliefs That Will Affect Care: None marital status: Single Current Living Situation: Parent Current Living Situation Comment: lives at home with mom current occupational status: employed current occupation: at [employer] How many Children do You have: 0 Other Information That Helps Us Care for You: No Feels Safe at Home: Yes Safety Concerns: Feels Safe At This Time Childhood Exposure to Second-Hand Smoke: No Diet: regular Diet Comment: regular Dental Care, Regularly: Yes Physical Activity Frequency: Does not Exercise Seatbelt Use: always Sunscreen Use: Yes Do you think of yourself as: straight/heterosexual Assistive Devices: None Results & Data Vital Signs (Past 12 Hours) Vital Signs Pulse Pulse Pulse Resp BP BP Pulse Ox 12/13/23 07:23 92 H 12/13/23 07:00 88 16 142/93 H 95 12/13/23 03:17 12/13/23 03:00 77 77 16 142/90 H 94 12/13/23 01:00 81 16 120/82 97 Pulse Ox O2 Del Method O2 Del Method 12/13/23 07:23 12/13/23 07:00 12/13/23 03:17 94 Room Air 12/13/23 03:00 Room Air 12/13/23 01:00 Room Air
--- NOTE | 2023-12-13 13:30 | Electrocardiogram Report ---
Test Reason : Blood Pressure : / mmHG Vent. Rate : 084 BPM Atrial Rate : 084 BPM P-R Int : 144 ms QRS Dur : 088 ms QT Int : 368 ms P-R-T Axes : 058 015 023 degrees QTc Int : 434 ms Normal sinus rhythm Normal ECG When compared with ECG of 25-AUG-2023 05:34, Nonspecific T wave abnormality now evident in Anterior leads Confirmed by Damon Menendez ([id number]) on 12/13/2023 1:29:59 PM Referred By: REFERRED SELF Confirmed By:Damon Menendez
[2023-12-13] MEDS: SUCRALFATE 1 GM/10 ML UDC PO SCH (13:33)
[2023-12-13] MEDS: HYDROmorphone INJ 0.5 MG/0.5 ML SYR IV STA (13:45)
[2023-12-13] MEDS: clonazePAM 0.5 MG TAB PO SCH (20:08)
[2023-12-14] MEDS: PROMETHAZINE HCL 12.5 MG in SODIUM CHLORIDE 0.9% 50 ML IV STA ×2 (03:55→19:58)
[2023-12-14 07:07] LABS: Basophils # (auto) 0.06 K/uL (0.00-0.20); Basophils % (auto) 0.8 %; Eosinophils # (auto) 0.09 K/uL (0.00-0.50); Eosinophils % (auto) 1.2 %; Hemoglobin 10.8 g/dl (12.0-16.0); Immature Granulocytes # (auto) 0.02 K/uL (0.01-0.20); Immature Granulocytes % (auto) 0.3 %; Lymphocytes # (auto) 2.92 K/uL (1.20-3.40); Lymphocytes % (auto) 39.4 %; Mean Corpuscular Hgb Conc 31.8 g/dL (32.0-36.0); Mean Corpuscular Volume 88.1 fL (80.0-100.0); Mean Platelet Volume 9.2 fL (9.4-12.4); Monocytes # (auto) 0.84 K/uL (0.11-0.59); Monocytes % (auto) 11.3 %; Neutrophils # (auto) 3.49 K/uL (1.40-6.50); Platelet Count 414 K/uL (130-400); RDW Coefficient of Variation 16.6 % (11.5-14.5); RDW Standard Deviation 52.7 fL (36.4-46.3); Red Blood Count 3.86 M/uL (4.20-5.40); White Blood Count 7.42 K/ul (4.8-10.8)
[2023-12-14 07:32] LABS: Creatinine Clr Calc Pharmacy 119.1 ml/min; Est GFR (African American) 131.6 ml/min; Est GFR (Non-African American) 113.5 ml/min
[2023-12-14] MEDS: BACLOFEN 10 MG TAB PO PRN (09:23)
[2023-12-14] MEDS: LACTATED RINGER'S 1,000 ML IV SCH (12:00)
--- NOTE | 2023-12-14 12:10 | Hospitalist Progress Note ---
Date of Service December 14, 2023 Assessment & Plan (1) Intractable abdominal pain: Plan: Epigastric pain and N/V/D since Wednesday 12/06 Hx of recent [place] admission for similar symptoms; at that time, suspected hyperalgesia possibly related to cannabis use, with components of malabsorption and/or gastroparesis Patient follows with [facility], and has an appointment scheduled for next week possible outpatient colonoscopy. Despite colitis seen on imaging no significant stool output is noted. PCR stool ordered, pending Dilaudid 0.51.0 IV q3h as needed for breakthrough pain, caution as history of substance abuse Additional liter of lactated Ringer's ordered for 12/14/2023 H/o chronic pancreatitis does not fit as acute issue and serum lipase is normal hypokalemia, did add potassium to ivf (2) Marijuana use: Plan: Marijuana + on arrival Patient endorses using medical marijuana at home Unclear if this is contributing to emesis/hyperemesis issues (3) Tobacco abuse: Plan: Current everyday tobacco cigarette smoker; 0.5 PPD Counseling on smoking cessation Daily nicotine patch application/removal while inpatient (4) History of ETOH abuse: Plan: Ethyl alcohol level elevated at 33 on arrival She reports she mistakenly drank her mother's [place] the morning of 12/11 (5) History of DVT (deep vein thrombosis): Plan: Continue chronic Eliquis (6) Chronic neck pain: Plan: Continue gabapentin, Robaxin Baclofen as needed Plan Full code Patient wishes to advance diet from clear liquid VTE PPx: On Eliquis Admission and Anticipated Discharge Date Admission Date: December 12, 2023 Subjective Patient feels slightly better. Nauseous but wants to try to eat. Abdominal pain is reduced. She had 1 bowel movement prior to them being able to collect a sample. No bowel movement since 12/13/2023 Physical Exam Physical Exam: awake and alert abd is nabs, soft no guarding no rebound. Mild epigastric tenderness has resolved Results & Data Results & Data Vital Signs (Past 12 Hours) Vital Signs Temp Pulse Pulse Resp BP BP Pulse Ox 12/14/23 11:42 98.2 F 109 H 18 122/76 91 12/14/23 09:00 99 H 12/14/23 07:55 97.3 F L 95 H 20 123/89 93 12/14/23 03:31 97.5 F L 89 20 131/88 95 12/14/23 00:27 97.5 F L 95 H 20 125/89 94 O2 Del Method 12/14/23 11:42 Room Air 12/14/23 09:00 12/14/23 07:55 Room Air 12/14/23 03:31 Room Air 12/14/23 00:27 Room Air Laboratory Results Reviewed CBC reviewed chemistry PG Care Time/CCT Total # of Minutes Spent Total Time Spent with Patient: Total time spent is greater than 50% in coordination of care (as documented) at patient's floor/unit and/or counseling patient: Coding Level of Care Code 71583 SUB INP/OBS CARE 2/35MIN Diagnoses Intractable abdominal pain R10.9 Marijuana use F12.90 Tobacco abuse Z72.0 History of ETOH abuse F10.11 History of DVT (deep vein thrombosis) Z86.718 Chronic neck pain M54.2; G89.29
[2023-12-14] MEDS: hydrOXYzine HCl 25 MG TAB PO PRN (16:04)
[2023-12-14] MEDS: SUMAtriptan succinate 100 MG TAB PO PRN (17:02)
[2023-12-14] MEDS ORDERED: Nursing to Pharmacy Communication SCH (17:15)
[2023-12-14] MEDS: traZODone HCL 50 MG TAB PO SCH (21:07)
[2023-12-15 06:45] LABS: Basophils # (auto) 0.07 K/uL (0.00-0.20); Basophils % (auto) 0.8 %; Eosinophils # (auto) 0.12 K/uL (0.00-0.50); Eosinophils % (auto) 1.4 %; Hematocrit (blood only) 35.7 % (37.0-47.0); Immature Granulocytes # (auto) 0.03 K/uL (0.01-0.20); Immature Granulocytes % (auto) 0.4 %; Lymphocytes # (auto) 2.62 K/uL (1.20-3.40); Lymphocytes % (auto) 30.9 %; Mean Corpuscular Hemoglobin 27.7 pg (25.0-34.0); Mean Corpuscular Hgb Conc 30.8 g/dL (32.0-36.0); Mean Corpuscular Volume 89.9 fL (80.0-100.0); Mean Platelet Volume 9.3 fL (9.4-12.4); Monocytes # (auto) 0.92 K/uL (0.11-0.59); Monocytes % (auto) 10.8 %; Neutrophils # (auto) 4.72 K/uL (1.40-6.50); Neutrophils % (auto) 55.7 %; Platelet Count 393 K/uL (130-400); RDW Standard Deviation 53.1 fL (36.4-46.3); Red Blood Count 3.97 M/uL (4.20-5.40); White Blood Count 8.48 K/ul (4.8-10.8)
[2023-12-15 07:04] LABS: BUN Creatinine Ratio 6.7 (10-20); Calcium 8.5 mg/dl (8.6-10.3); Creatinine Clr Calc Pharmacy 113.2 ml/min; Est GFR (African American) 129.4 ml/min; Est GFR (Non-African American) 111.6 ml/min; Potassium 3.9 mmol/L (3.5-5.1)
[2023-12-15] MEDS: PROMETHAZINE HCL 12.5 MG in SODIUM CHLORIDE 0.9% 50 ML IV PRN (14:51)
[2023-12-15 15:47] LABS: Marijuana Quant, GCMS Urine 2969 ng/mL (<5)
--- NOTE | 2023-12-15 18:41 | Hospitalist Progress Note ---
Date of Service December 15, 2023 Assessment & Plan (1) Intractable abdominal pain: Plan: Epigastric pain and N/V/D since Wednesday 12/06, now much improved, still not eating well, did have some headache Hx of recent [place] admission for similar symptoms; at that time, suspected hyperalgesia possibly related to cannabis use, with components of malabsorption and/or gastroparesis Patient follows with [facility], and has an appointment scheduled for next week possible outpatient colonoscopy. Despite colitis seen on imaging no significant stool output is noted. PCR stool ordered,sample not given Dilaudid 0.51.0 IV q3h as needed for breakthrough pain, caution as history of substance abuse H/o chronic pancreatitis does not fit as acute issue and serum lipase is normal (2) Marijuana use: Plan: Marijuana + on arrival Patient endorses using medical marijuana at home Unclear if this is contributing to emesis/hyperemesis issues (3) Tobacco abuse: Plan: Current everyday tobacco cigarette smoker; 0.5 PPD Counseling on smoking cessation Daily nicotine patch application/removal while inpatient (4) History of ETOH abuse: Plan: Ethyl alcohol level elevated at 33 on arrival She reports she mistakenly drank her mother's [place] the morning of 12/11 (5) History of DVT (deep vein thrombosis): Plan: Continue chronic Eliquis (6) Chronic neck pain: Plan: Continue gabapentin, Robaxin Baclofen as needed Plan Full code Patient wishes to advance diet from clear liquid VTE PPx: On Eliquis Admission and Anticipated Discharge Date Admission Date: December 12, 2023 Subjective pt does have a headache today typical of her migraines, requests Imitrex Physical Exam Physical Exam: awake and alert abd is nabs, soft no guarding no rebound. Mild epigastric tenderness has resolved Results & Data Results & Data Vital Signs (Past 12 Hours) Vital Signs Temp Pulse Pulse Resp BP BP Pulse Ox 12/15/23 15:12 115 H 12/15/23 15:08 98.6 F 106 H 18 119/84 91 12/15/23 11:33 98.6 F 110 H 18 120/84 92 12/15/23 08:50 12/15/23 08:31 135/89 12/15/23 07:53 98.2 F 93 H 18 140/90 95 12/15/23 07:07 90 O2 Del Method 12/15/23 15:12 12/15/23 15:08 Room Air 12/15/23 11:33 Room Air 12/15/23 08:50 Room Air 12/15/23 08:31 12/15/23 07:53 Room Air 12/15/23 07:07 Laboratory Results review cbc review chemistry PG Care Time/CCT Total # of Minutes Spent Total Time Spent with Patient: Total time spent is greater than 50% in coordination of care (as documented) at patient's floor/unit and/or counseling patient: Coding Level of Care Code 18652 SUB INP/OBS CARE 2/35MIN Diagnoses Intractable abdominal pain R10.9 Marijuana use F12.90 Tobacco abuse Z72.0 History of ETOH abuse F10.11 History of DVT (deep vein thrombosis) Z86.718 Chronic neck pain M54.2; G89.29
[2023-12-16] MEDS: oxyCODONE HCL IR 5 MG TAB (IMMEDIATE RELEASE) PO PRN (14:52)
--- NOTE | 2023-12-16 18:30 | Hospitalist Progress Note ---
Date of Service December 16, 2023 Assessment & Plan (1) Intractable abdominal pain: Plan: Epigastric pain and N/V/D since Wednesday 12/06, now much improved, eating regular food, some headache Hx of recent [facility] [place] for similar symptoms; at that time, suspected hyperalgesia possibly related to cannabis use, with components of malabsorption and/or gastroparesis Patient follows with [facility], and has an appointment scheduled for next week possible outpatient colonoscopy. Despite colitis seen on imaging no significant stool output is noted. PCR stool ordered,sample not given Dilaudid 0.51.0 IV q3h as needed for breakthrough pain, caution as history of substance abuse H/o chronic pancreatitis does not fit as acute issue and serum lipase is normal (2) Marijuana use: Plan: Marijuana + on arrival Patient endorses using medical marijuana at home Unclear if this is contributing to emesis/hyperemesis issues (3) Tobacco abuse: Plan: Current everyday tobacco cigarette smoker; 0.5 PPD Counseling on smoking cessation Daily nicotine patch application/removal while inpatient (4) History of ETOH abuse: Plan: Ethyl alcohol level elevated at 33 on arrival She reports she mistakenly drank her mother's [place] the morning of 12/11 (5) History of DVT (deep vein thrombosis): Plan: Continue chronic Eliquis (6) Chronic neck pain: Plan: Continue gabapentin, Robaxin Baclofen as needed Plan Full code Patient wishes to advance diet from clear liquid VTE PPx: On Eliquis Admission and Anticipated Discharge Date Admission Date: December 12, 2023 Subjective pt does have a headache today typical of her migraines, requests Imitrex headache with little help from imitrex will try oxycodone Physical Exam Physical Exam: awake and alert, does not appear to be in sig distress abd is nabs, soft no guarding no rebound. Mild epigastric tenderness has resolved Results & Data Results & Data Vital Signs (Past 12 Hours) Vital Signs Temp Pulse Pulse Resp BP Pulse Ox O2 Del Method 12/16/23 15:17 98.4 F 101 H 20 113/76 91 Room Air 12/16/23 14:40 104 H 12/16/23 11:13 98.2 F 113 H 18 126/89 92 Room Air 12/16/23 07:52 Room Air 12/16/23 07:49 98.2 F 88 18 106/75 94 Room Air 12/16/23 07:00 93 H PG Care Time/CCT Total # of Minutes Spent Total Time Spent with Patient: Total time spent is greater than 50% in coordination of care (as documented) at patient's floor/unit and/or counseling patient: Coding Level of Care Code 46519 SUB INP/OBS CARE 2/35MIN Diagnoses Intractable abdominal pain R10.9 Marijuana use F12.90 Tobacco abuse Z72.0 History of ETOH abuse F10.11 History of DVT (deep vein thrombosis) Z86.718 Chronic neck pain M54.2; G89.29
[2023-12-17] MEDS: clonazePAM 0.25 MG OD TAB PO SCH (09:35)
--- NOTE | 2023-12-17 09:50 | Hospitalist Progress Note ---
Date of Service December 17, 2023 Assessment & Plan (1) Intractable abdominal pain: Plan: Epigastric pain and N/V/D since Wednesday 12/06, now much improved although still regularly taking Dilaudid ?secondary to gastroparesis +/- chronic pancreatitis (serum lipase does not rule this out) For gastroparesis would certainly recommend reducing/stopping opiates and on discussion with her she clearly cannot go home until she can demonstrate she can manage without the intravenous dilaudid - will therefore reduce this but highly encouraged not to use. Patient follows with [facility], and has an appointment scheduled for next week possible outpatient colonoscopy. Despite colitis seen on imaging no significant stool output is noted. (2) Marijuana use: Plan: Marijuana + on arrival Patient endorses using medical marijuana at home Unclear if this is contributing to emesis/hyperemesis issues - recommend cessation (3) Tobacco abuse: Plan: Current everyday tobacco cigarette smoker; 0.5 PPD Counseling on smoking cessation Daily nicotine patch application/removal while inpatient (4) History of ETOH abuse: Plan: Ethyl alcohol level elevated at 33 on arrival She reports she mistakenly drank her mother's [place] the morning of 12/11 ?lead to exacerbation of her chronic pancreatitis (5) History of DVT (deep vein thrombosis): Plan: Continue chronic Eliquis (6) Chronic neck pain: Plan: Continue gabapentin, Robaxin (she notes this should be prescribed PRN not regularly) Baclofen as needed Plan VTE Prophyalxis - Eliquis Diet - low fat Disposition - stable for transfer to med/surg, possible discharge tomorrow Admission and Anticipated Discharge Date Admission Date: December 12, 2023 Anticipated date of discharge: 12/18/23 Subjective Reports improved symptoms since admission. Discussed recurrent episodes with the patient and her perception of what is going on. Reports she was on no medications other than pantoprazole prior to three years ago. Notably has very severe episodes which start with both vomiting and abdominal pain at the same time. Per records from certified pest control technician she was having EGD/EUS performed 2019 with dilated pancreatic duct on Cts and chronic pancreatitis changes. History of portal vein thrombosis. Suspected abdominal pain likely multifactorial from both her gastroparesis as well as chronic pancreatitis. Review of Systems Review of Systems: All systems reviewed & are unremarkable except as noted in HPI & below Physical Exam Constitutional: WD/WN, vitals as above Respiratory: normal respiratory effort, lungs clear to auscultation Cardiovascular: RRR, no murmur, no edema Gastrointestinal (Abdomen): Inspection/Auscultation: abdomen normal to inspection Percussion/Palpation: + abdomen tender (epigastric) and abdomen soft; no guarding and abdomen not rigid Psychiatric: A+Ox3, euthymic affect Results & Data Results & Data Vital Signs (Past 12 Hours) Vital Signs Temp Pulse Pulse Resp BP Pulse Ox O2 Del Method 12/17/23 08:00 Room Air 12/17/23 07:34 36.4 C 92 H 16 103/66 92 Room Air 12/17/23 07:00 91 H 12/17/23 03:13 36.8 C 89 16 102/71 94 Room Air 12/17/23 00:43 99 H 12/16/23 23:03 36.7 C 93 H 16 114/78 94 Room Air PG Care Time/CCT Total # of Minutes Spent Total Time Spent with Patient: Total time spent is greater than 50% in coordination of care (as documented) at patient's floor/unit and/or counseling patient: Coding Level of Care Code 07599 SUB INP/OBS CARE 2/35MIN Diagnoses Intractable abdominal pain R10.9 Marijuana use F12.90 Tobacco abuse Z72.0 History of ETOH abuse F10.11 History of DVT (deep vein thrombosis) Z86.718 Chronic neck pain M54.2; G89.29
[2023-12-17 13:25] LABS: Albumin Globulin Ratio 1.4 (0.9-2); Albumin Level 3.8 gm/dl (3.4-5.0); BUN Creatinine Ratio 7.7 (10-20); Bilirubin,Total 0.3 mg/dl (0.2-1.0); Calcium 9.1 mg/dl (8.6-10.3); Creatinine Clr Calc Pharmacy 104.5 ml/min; Est GFR (Non-African American) 108.7 ml/min; Globulin 2.7 gm/dl (2.5-4.0); Magnesium 1.8 mg/dl (1.7-2.4); Phosphorus 3.7 mg/dl (2.5-4.9); Potassium 4.3 mmol/L (3.5-5.1); Total Protein 6.5 gm/dl (6.0-8.3)
[2023-12-17] MEDS ORDERED: METHOCARBAMOL 750 MG TABLET PO PRN (14:43)
[2023-12-17] MEDS: PANTOprazole 40 MG TAB PO SCH (20:42)
[2023-12-18] MEDS: HYDROmorphone INJ 0.5 MG/0.5 ML SYR IV PRN (00:46)
--- NOTE | 2023-12-18 08:36 | Discharge Summary ---
Date of Service December 18, 2023 Admission HPI Per Admitting Provider Nadja is a 42-year-old female with PMH of chronic pancreatitis, s/p cholecystectomy, alcohol use disorder, anxiety with panic attacks, gastritis, GERD, chronic migraines, chronic neck pain, chronic back pain, insomnia, and current tobacco cigarette use. She presented for worsening epigastric pain, and intractable nausea/vomiting since Wednesday 12/06. She reports that the pain has been a constant, dull achy pain, with occasional shooting pain in her epigastric region. She does endorse mild back pain but believes this is secondary to vomiting. No radiation between the shoulder blades or down into the lower stom ach. She rates the pain as 7/10 after receiving pain medication in the ED; 10/10 at worst. Pain is better when sitting up. Patient has not been tolerating solids, but has been tolerating fluids at home. She notes that she has been taking Tylenol for the pain, but this does not help; she is unable to take Aleve, Advil, or NSAIDs due to history of blood clots; on Eliquis. Patient took her morning medications, but immediately threw them up; she is concerned that she has had trouble keeping down her medications such as Eliquis. Only recent change in medication is that she stopped Prozac. No recent change in diet. She reports she has vomited around 20 times since Friday. No hemoptysis. Patient has used some medical marijuana this past week. She is also a current everyday tobacco cigarette smoker; 0.5 PPD. She does endorse accidental alcohol use this morning; reportedly drink some of her mom's [place] which was in a karly jar. She follows with [facility] gastroenterology, and does have an appointment for colonoscopy next week. Patient is hypertensive at 150/104, and tachycardic at 109 bpm at time of admission. ED course: Hydromorphone 0.5 mg x 2 Toradol 10 mg NSS 1000 mL Phenergan 25 mg Zofran 4 mg ROS: Patient endorses intractable epigastric pain, nausea and vomiting. Patient denies fever, chills, night sweats, body aches, headache, dizziness, chest pain, chest palpitations, cough, SOB, urinary symptoms, blood in urine or stool, or numbness/tingling/pain in the arms or legs. Principal Diagnosis Intractable abdominal pain Gastritis/gastroparesis/chronic pancreatitis/pancolitis Discharge Exam Constitutional WD/WN, vitals as above Gastrointestinal (Abdomen) normal bowel sounds, soft, nontender, no hepatosplenomegaly Discharge Data Allergies Allergy/AdvReac Type Severity Reaction Status Date / Time buspirone [From BuSpar] Allergy Severe Unconscious, Verified 12/03/23 09:06 seizures quetiapine [From Seroquel] Allergy Severe Unconscious, Verified 12/03/23 09:06 seizures citalopram [From Celexa] AdvReac Intermediate Vomiting Verified 12/03/23 09:06 morphine AdvReac Intermediate "MAKES ME Verified 12/03/23 09:06 SICK(VOMITING)" vilazodone [From Viibryd] AdvReac Vomiting Verified 12/03/23 09:06 Consultations 12/12/23 15:48 ED Decision to Admit Stat 12/12/23 23:08 Consult Gastroenterology Routine Ordered Studies 12/12/23 14:11 CT Abd and Pelvis [CT abd pelvis IV con only] Stat IMPRESSION: 1. Findings are again suggestive of a nonspecific pancolitis which is similar to the 11/30/2023 exam. 2. No bowel obstruction or pneumoperitoneum. 3. Evidence of chronic pancreatitis. 4. Normal appendix. 5. Left nephrolithiasis. 6. Cholecystectomy. Hospital Course (1) Intractable abdominal pain: Nadja Ryan is a 43 year old female admitted to [facility] from December 11 - 2023 due to intractable abdominal pain, nausea and vomiting. Previously this pain has been put down to chronic pancreatitis and gastr oparesis. Recommend complete cessation of alcohol. Chronic cannabis use can also lead to hyperemesis and recommend discussing cessation with your special needs librarian. Pancolitis noted on CT and she should follow up with her special needs librarian for planned colonoscopy. Continue ondansetron/Phenergan as needed for nausea and oxycodone for pain. Continue to use Carafate before each meal and at night. (2) Marijuana use: (3) Tobacco abuse: (4) History of ETOH abuse: (5) History of DVT (deep vein thrombosis): (6) Chronic neck pain: Total Time Total Time Spent Total Time Spent (In Minutes): 35 Discharge Plan Discharge Items Patient Disposition: Home - Self-Care Reason For Visit: THROWING UP SINCE SUN/ABDOMINAL PAIN Discharge Diagnosis: Intractable abdominal pain Gastritis/gastroparesis Activity: Resume your previous activity Non-emergency contact: Ekg Tech Call non-emergency contact if: you have any medication questions and your symptoms worsen Follow-up/Referrals: Kenzie Bhatt CRNP [Primary Care Provider] - 12/25/23 1:00 pm (APPOINTMENT WITH DR READ) Diet: Low Fat Addtl Attending Provider Instructions: You were admitted to [facility] from December 11 - 2023 due to intractable abdominal pain, nausea and vomiting. Previously this pain has been put down to chronic pancreatitis and gastroparesis. Recommend complete cessation of alcohol. Chronic cannabis use can also lead to hyperemesis and recommend discussing cessation with your special needs librarian. Please follow up with your special needs librarian for planned colonoscopy. Continue ondansetron/Phenergan as needed for nausea and oxycodone for pain. Continue to use Carafate before each meal and at night. Pending Studies at Discharge: No Stand-Alone Forms: [facility], Pain - Opioid Pain Management, Work/School Release, Smoking Cessation Medications and DC Order Prescriptions: Continued medical marijuana 1 puff inhalation HS PRN (Reason: Sleep) Rx Instructions: VAPE folic acid 1 mg tablet See Rx Instructions .ROUTE .COMPLEX Qty: 90 3RF Dose Instruction: TAKE 1 TABLET BY MOUTH EVERY DAY IN THE MORNING Rx Instructions: TAKE 1 TABLET BY MOUTH EVERY DAY IN THE MORNING potassium chloride [Klor-Con M20] 20 mEq tablet,ER particles/crystals 20 meq PO QAM Qty: 90 3RF sumatriptan succinate 100 mg tablet 100 mg PO DAILY PRN (Reason: migraine/headache) Qty: 20 0RF Rx Instructions: TAKE 1 TABLET BY MOUTH NEEDED FOR MIGRAINE/HEADACHE. MAY REPEAT 1 DOSE AFTER 1-2 HOURS Creon 36,000-114,000- 180,000 unit capsule,delayed release(DR/EC) 3 cap PO TID 90 Days Qty: 810 3RF Rx Instructions: With meals Eliquis 5 mg tablet 5 mg PO BID Qty: 90 3RF gabapentin 600 mg tablet 600 mg PO TID 30 Days Qty: 90 3RF nicotine 21-14-7 mg/24 hr patch, TD daily, sequential See Rx Instructions transdermal .COMPLEX Qty: 56 0RF Rx Instructions: apply 1-21 mg NICOTINE PATCH daily for 28 days; follow with 1-14 mg PATCH daily for 14 days, then 1-7mg PATCH daily for 14 days transdermal nicotine 7 mg/24 hr patch 24 hour 1 patch transdermal Q24H 14 Days Qty: 14 0RF Rx Instructions: 14 mg/day) for 6 weeks, followed by (7 mg/day) for 2 weeks. clonazepam 0.5 mg tablet 0.75 mg PO DAILY 14 Days Qty: 21 0RF Rx Instructions: take 0.5 mg in am and 0.25 mg in pm albuterol sulfate [Ventolin HFA] 90 mcg/actuation HFA aerosol inhaler 2 puff inhalation Q4H PRN (Reason: cough/wheeze/shortness of breath) Qty: 1 0RF thiamine HCl (vitamin B1) 100 mg tablet 300 mg PO QAM magnesium citrate 100 mg tablet 100 mg PO QAM nicotine (polacrilex) 4 mg gum 4 mg buccal Q2H Qty: 20 0RF (DME) TENS unit and electrodes Combo Pack See Rx Instructions .Route Qty: 1 0RF Rx Instructions: As directed nicotine 21 mg/24 hr patch 24 hour 1 patch transdermal DAILY 42 Days Qty: 28 1RF Rx Instructions: 14 mg/day for 6 weeks, followed 7 mg/day for 2 weeks. multivitamin Tablet 1 tab PO QAM mecobalamin (vitamin B12) [B12 Active] 1,000 mcg Tablet,Chewable 1,000 mcg PO QAM clindamycin phosphate 1 % gel 1 applic topical DAILY PRN (Reason: Acne) Rx Instructions: APPLY TOPICALLY DAILY FOR ACNE calcium carbonate 600 mg calcium (1,500 mg) tablet 600 mg PO QAM cholecalciferol (vitamin D3) 250 mcg (10,000 unit) capsule 250 mcg PO QAM promethazine 25 mg tablet 25 mg PO Q6H PRN (Reason: nausea and vomiting) Qty: 30 3RF ondansetron 4 mg tablet,disintegrating 4 mg PO Q6H PRN (Reason: Nausea And Vomiting) 30 Days Qty: 60 2RF Rx Instructions: TAKE 1 TABLET BY MOUTH EVERY 6 HOURS NEEDED FOR NAUSEA Changed trazodone 50 mg tablet 50 mg PO HS Qty: 30 2RF oxycodone 5 mg tablet 5 mg PO Q4H PRN (Reason: pain) Qty: 20 0RF Discontinued methocarbamol 750 mg tablet See Rx Instructions .ROUTE .COMPLEX Qty: 90 0RF Dose Instruction: TAKE 1 TABLET BY MOUTH THREE TIMES A DAY Rx Instructions: TAKE 1 TABLET BY MOUTH THREE TIMES A DAY No Action pantoprazole 40 mg tablet,delayed release (DR/EC) 40 mg PO BID Qty: 60 5RF baclofen 20 mg tablet 20 mg PO TID PRN (Reason: neck pain/muscle spasm) Qty: 20 0RF Discharge Orders: Discharge Order (Routine); Ordered 12/18/23 Ordered By: Camilo Martin Admission Data Admit Date/Time: 12/12/23 18:12 Attending Provider: Camilo Martin Admit Provider: Enrique Myers Primary Care Provider: Kenzie Bhatt Other Providers: Gala Willett Other Interventions: Discharge Summary Assessment (RN) Last Done: 12/18/23 11:30 Coding Level of Care Code 43249 INP/OBS DISCH >30 MIN Diagnoses Intractable abdominal pain R10.9 Marijuana use F12.90 Tobacco abuse Z72.0 History of ETOH abuse F10.11 History of DVT (deep vein thrombosis) Z86.718 Chronic neck pain M54.2; G89.29
== END 2023-12-18 12:31 | disposition home or self-care (01) | DRG 392 ==
LOC: ED 11:29 → EDINP 18:12 → SUATTDRO 18:12 → INTOOBSV 18:12 → 2N 20:18 → 3N 12-17 21:49

== ENCOUNTER 2024-11-25 17:08 | Inpatient (IN) ==
[2024-11-25 18:00] LABS: Basophils # (auto) 0.12 K/uL (0.00-0.20); Basophils % (auto) 1.1 %; Eosinophils # (auto) 0.06 K/uL (0.00-0.50); Eosinophils % (auto) 0.5 %; Hematocrit (blood only) 40.1 % (37.0-47.0); Immature Granulocytes # (auto) 0.04 K/uL (0.01-0.20); Immature Granulocytes % (auto) 0.4 %; Lymphocytes # (auto) 3.49 K/uL (1.20-3.40); Mean Corpuscular Hemoglobin 29.7 pg (25.0-34.0); Mean Corpuscular Hgb Conc 34.9 g/dL (32.0-36.0); Mean Corpuscular Volume 85.1 fL (80.0-100.0); Mean Platelet Volume 8.6 fL (9.4-12.4); Monocytes # (auto) 0.89 K/uL (0.11-0.59); Monocytes % (auto) 7.9 %; Neutrophils # (auto) 6.64 K/uL (1.40-6.50); Neutrophils % (auto) 59.1 %; Platelet Count 535 K/uL (130-400); RDW Coefficient of Variation 14.6 % (11.5-14.5); RDW Standard Deviation 45.8 fL (36.4-46.3); Red Blood Count 4.71 M/uL (4.20-5.40); White Blood Count 11.24 K/ul (4.8-10.8)
[2024-11-25 18:10] LABS: Albumin Globulin Ratio 1.9 (0.9-2); Albumin Level 4.3 gm/dl (3.4-5.0); BUN Creatinine Ratio 34.4 (10-20); Bilirubin,Total 0.6 mg/dl (0.2-1.0); Calcium 8.5 mg/dl (8.6-10.3); Creatinine Clr Calc Pharmacy 97.4 ml/min; Globulin 2.3 gm/dl (2.5-4.0); Potassium 3.7 mmol/L (3.5-5.1); Total Protein 6.6 gm/dl (6.0-8.3)
[2024-11-25 18:12] LABS: Pregnancy Test, Serum Negative (Negative)
[2024-11-25] MEDS: OPTIRAY 320 100ml IV ONE (18:59)
[2024-11-25] MEDS: KETOROLAC TROMETHAMINE 15 MG/ML VIAL IV STA (19:24)
[2024-11-25] MEDS: ONDANSETRON INJ 2 MG/ML 2 ML VIAL IV STA (19:24)
[2024-11-25] MEDS: SODIUM CHLORIDE 0.9% 1,000 ML IV ONE (19:24)
[2024-11-25] MEDS: ACETAMINOPHEN 1,000 MG/100 ML VIAL IV STA (19:27)
--- NOTE | 2024-11-25 19:35 | CT Scan Report ---
EXAM: CT Angiography Abdomen and Pelvis With Intravenous Contrast INDICATION: Worsening nausea, vomiting and pain. TECHNIQUE: Axial computed tomographic angiography images of the abdomen and pelvis with intravenous contrast. Sagittal and coronal reformatted images were created and reviewed. This CT exam was performed using one or more of the following dose reduction techniques: automated exposure control, adjustment of the mA and/or kV according to patient size, and/or use of iterative reconstruction technique. MIP reconstructed images were created and reviewed. CONTRAST: 94ml of Optiray 320 was administered intravenously. COMPARISON: 08/18/2023 FINDINGS: VASCULATURE: Aorta: Atherosclerotic calcification of the aorta and branches. No aneurysm. Celiac trunk and mesenteric arteries: No acute change noted. No occlusion or significant stenosis. Renal arteries: No acute change noted. No occlusion or significant stenosis. Iliac arteries: No acute change noted. No occlusion or significant stenosis. Lung bases: No abnormality noted. No mass. No consolidation. ABDOMEN: Liver: Normal size and contour. Hypodense typical of steatosis. No mass or ductal dilation. Gallbladder and bile ducts: Cholecystectomy. No ductal dilation or stone noted. Pancreas: Stable chronic proximal pancreatic calcifications. The pancreas otherwise appears normal. No ductal dilation. Spleen: No abnormality noted. No splenomegaly. Adrenals: No abnormality noted. No mass. Kidneys and ureters: 3 mm nonobstructing left lower pole kidney stone. Stomach and bowel: No abnormality noted. No obstruction. No mucosal thickening. PELVIS: Appendix: Well seen and appears normal. Bladder: No abnormality noted. No mass. Reproductive: No significant abnormality noted. ABDOMEN and PELVIS: Intraperitoneal space: No abnormality noted. No significant fluid collection. No free air. Bones/joints: No acute or atypical chronic changes. Soft tissues: No abnormality noted. Lymph nodes: No abnormality noted. No enlarged lymph nodes. Tubes, lines and devices: Intrauterine contraceptive device in good position. IMPRESSION: 1. No acute abnormality. 2. Proximal pancreatic calcifications consistent with chronic pancreatitis. No acute pancreatitis. ACT 112: Negative or not required by law. Electronically signed by Kamala Webster 11-25-2024 7:34 PM
[2024-11-25] MEDS: PROMETHAZINE 12.5 MG/50.5 ML BAG IV STA (20:19)
[2024-11-25] MEDS: oxyCODONE HCL IR 5 MG TAB (IMMEDIATE RELEASE) PO STA (20:20)
[2024-11-25 20:36] LABS: Appearance Urine Clear (Clear); Bacteria Urine Automated None Seen (None Seen); Bilirubin Urine Negative (Negative); Blood Urine Negative (Negative); Cast Urine Automated 0-2 /lpf (0-2); Color Urine Yellow; Epithelial Cell Urine Auto 0-2 /hpf (0-2); Glucose Urine UA Negative (Negative); Ketones Urine 1+ (Negative); Leukocyte Esterase Urine Negative (Negative); Nitrite Urine Negative (Negative); Protein Urine Trace (Negative); Specific Gravity Urine > 1.045 (1.000-1.030); Urobilinogen Urine Negative (Negative); WBC Urine Automated 0-5 /hpf (0-5); pH Urine >= 9.0 (4.5-7.5)
--- NOTE | 2024-11-25 20:53 | Emergency Department Note ---
ED Provider Note History of Present Illness Chief Complaint: Vomiting Stated Complaint: VOMITING, DIARRHEA Time Seen by Provider: 11/25/24 18:43 Source: patient Mode of arrival: ambulatory Limitations: no limitations Patient is a 43-year-old female who presents to the emergency department with complaints of diffuse abdominal pain, vomiting, and diarrhea. Patient states that her symptoms have been ongoing for over 3 weeks but the pain is worsened today. Patient states that she has been so nauseous that she has not been able to hold down the pain medications that she takes at home. Patient has a history of chronic pancreatitis and back pain that she takes oxycodone for at home. Patient states that she has also been having streaks of bright red blood in her stool from time to time. Patient was seen by her primary care physician for same symptoms but was not diagnosed with any particular cause. Patient notes that she sees a branch assistant but did not contact her branch assistant for the symptoms. Home Medications Medication Instructions Recorded Confirmed Type clindamycin phosphate 1 % topical 1 applic topical DAILY PRN Acne 02/17/23 11/25/24 History gel medical marijuana 1 puff inhalation UD PRN 05/21/23 11/18/24 History Sleep/stomach issues/anxiety TENS unit and electrodes combo pack #1 ea 07/10/23 11/18/24 Rx cholecalciferol (vitamin D3) 250 250 mcg PO QAM 08/18/23 11/25/24 History mcg (10,000 unit) capsule [id number] 3 cap PO TID Abdominal Discomfort 10/23/23 11/25/24 Rx 36,000-114,000-180,000 unit 90 days #810 caps capsule,delay rel (Creon) mecobalamin (vitamin B12) 1,000 1,000 mcg PO QAM #100 tabs 01/20/24 11/25/24 Rx mcg chewable tablet (B12 Active) clotrimazole-betamethasone 1 1 applic EXT BID #30 grams 02/23/24 11/25/24 Rx %-0.05 % topical cream apixaban 5 mg tablet (Eliquis) 5 mg PO BID #90 tabs 06/22/24 11/25/24 Rx sumatriptan succinate 100 mg tablet 100 mg PO DAILY PRN 07/19/24 11/25/24 Rx migraine/headache #20 tabs gabapentin 600 mg tablet 600 mg PO TID 30 days #90 tabs 07/30/24 11/25/24 Rx levonorgestrel 21 mcg/24 hr (up to intrauterine 08/16/24 11/18/24 History 8 years) 52 mg intrauterine device (Mirena) promethazine 25 mg tablet 25 mg PO Q6H PRN nausea and 08/24/24 11/25/24 Rx vomiting #30 tabs ondansetron 4 mg disintegrating 4 mg PO Q6H PRN Nausea And 09/01/24 11/25/24 Rx tablet Vomiting 30 days #60 tabs folic acid 1 mg tablet 1 mg PO DAILY #90 tabs 09/27/24 11/25/24 Rx fluoxetine 40 mg capsule 40 mg PO DAILY #90 caps 10/11/24 11/25/24 Rx pantoprazole 40 mg tablet,delayed 40 mg PO BID #180 tabs 10/11/24 11/25/24 Rx release baclofen 20 mg tablet 20 mg PO TID PRN neck pain/muscle 10/20/24 11/25/24 Rx spasm #270 tabs clonazepam 0.5 mg tablet 0.25 mg (1/2 x 0.5 mg) PO BID PRN 11/16/24 11/25/24 Rx anxiety 28 days #22 tabs albuterol sulfate 90 mcg/actuation 2 puff inhalation Q4H PRN 11/18/24 11/25/24 Rx aerosol inhaler (Ventolin HFA) cough/wheeze/shortness of breath #1 inhaler methocarbamol 750 mg tablet 750 mg PO TID PRN pain #90 tabs 11/24/24 11/25/24 Rx oxycodone 5 mg tablet 5 mg PO Q8H PRN pain 2 weeks #42 11/24/24 11/25/24 Rx tabs Allergies Allergy/AdvReac Type Severity Reaction Status Date / Time buspirone [From BuSpar] Allergy Severe Unconscious, Verified 11/18/24 09:32 seizures quetiapine [From Seroquel] Allergy Severe Unconscious, Verified 11/18/24 09:32 seizures citalopram [From Celexa] AdvReac Intermediate Vomiting Verified 11/18/24 09:32 morphine AdvReac Intermediate Vomiting Verified 11/18/24 09:32 metoclopramide AdvReac Unknown "Twitchy" Verified 11/18/24 09:32 vilazodone [From Viibryd] AdvReac Vomiting Verified 11/18/24 09:32 Past Med/Surg History Problem List (Updated 11/26/24 @ 00:22 by MARYBEL Whyte) Nausea & vomiting (Acute) History of gastritis History of alcohol abuse Restless leg syndrome Medical marijuana use Chronic prescription opiate use Chronic prescription benzodiazepine use Chronic abdominal pain (Acute) Chronic pain syndrome Right ankle sprain Tendinitis of both rotator cuffs Gastroparesis Intertrigo Low serum cortisol level Other cervical disc degeneration at C6-C7 level Degeneration of thoracolumbar intervertebral disc T12-L1 Other cervical disc degeneration at C5-C6 level Elevated hemidiaphragm Generalized anxiety disorder with panic attacks Portal vein thrombosis (~2018) Dental decay Hiatal hernia (Chronic) Medical History Gastritis Chronic pancreatitis Per records Pancreatic pseudocyst Pancolitis Adjustment disorder with depressed mood Per records History of seizure due to alcohol withdrawal 2020, "from either alcohol or clonazepam" PTSD (post-traumatic stress disorder) Hx of migraines Iron deficiency anemia Insomnia Hiatal hernia Nocturnal hypoxia Noted during previous hospitalizations per patient, plan for future sleep study (not scheduled until 07/2024 per patient) Degeneration of thoracolumbar intervertebral disc History of colitis Cervical radiculopathy Cervical spondylosis Anxiety and depression Tendinitis of right rotator cuff Ongoing Acne Cream every 4-6 months GERD (gastroesophageal reflux disease) Panic attacks hx Peptic ulcer disease hx Surgical History H/O oral surgery History of breast biopsy History of esophagogastroduodenoscopy (EGD) 2017 History of cholecystectomy History of tooth extraction History of lumpectomy of right breast "benign" Family History Father Family history of diabetes mellitus Myocardial infarction Stroke Hypertension Grandfather (Maternal) Family history of diabetes mellitus Grandmother (Maternal) Family history of diabetes mellitus Hypertension Cancer Mother Hypothyroidism Grandfather (Paternal) Cancer Heart problem Grandmother (Paternal) Hypertension Denies family history of Ovarian cancer Prostate cancer Breast cancer Colorectal cancer Social History Smoking Status: Current every day smoker Tobacco Type: Cigarettes Age Started Using Tobacco: 15; packs per day: 0.5; Cigarettes Per Day: 10+ cigs/day; Second Hand Exposure: No; Do You Dip or Chew Tobacco: No; Hx Alcohol Use: No (No current/recent ETOH use x months) Hx Substance Use: Yes Substance Use Type Other:: Smokes Ayleenanna Preferred Language: Azerbaijani Communication Ability: Effective Visual Impairment: No Limitations Hearing Ability: Normal 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: No Beliefs That Will Affect Care: None marital status: Single Current Living Situation: Parent Current Living Situation Comment: lives at home with mom current occupational status: employed current occupation: at [employer] How many Children do You have: 0 Feels Safe at Home: Yes Childhood Exposure to Second-Hand Smoke: No Diet: regular Diet Comment: regular Dental Care, Regularly: Yes Physical Activity Frequency: Does not Exercise Seatbelt Use: always Sunscreen Use: Yes Do you think of yourself as: straight/heterosexual Assistive Devices: None Physical Exam Vital Signs Vital Signs - 24 hr 11/25/24 17:23 11/25/24 19:36 11/25/24 19:45 Temperature 36.7 C Temperature Source Temporal Artery Scan Pulse Rate 120 H 87 Pulse Rate [Apical] 87 Respiratory Rate 18 20 Blood Pressure 120/90 Blood Pressure [Left Arm] 125/97 Blood Pressure Mean 100 Blood Pressure Mean [Left Arm] 106 Pulse Oximetry 97 100 Oxygen Delivery Method Room Air Room Air Sepsis Recent Fever Within 48 Hours No Sepsis New/Unexplained Change in Mental Status No Sepsis Action Taken by Nursing No Action Required 11/25/24 21:02 Temperature Temperature Source Pulse Rate Pulse Rate [Apical] 85 Respiratory Rate 20 Blood Pressure Blood Pressure [Left Arm] 129/91 Blood Pressure Mean Blood Pressure Mean [Left Arm] 103 Pulse Oximetry 93 Oxygen Delivery Method Room Air Sepsis Recent Fever Within 48 Hours Sepsis New/Unexplained Change in Mental Status Sepsis Action Taken by Nursing VITAL SIGNS - Vital signs and nursing notes were reviewed. GENERAL -43-year-old female appearing her stated age who is in no acute distress. Communicates well with provider and answers questions appropriately. HEAD - NC/AT. EYES - PERRL with EOMI bilaterally. Conjunctiva pink and moist with no injection noted. LUNGS - Chest wall symmetric without accessory muscle use, intercostals retractions, or central cyanosis. Breath sounds clear throughout all ramirez. No wheezes, rales, or rhonchi appreciated. CARDIAC - RRR with S1/S2. No murmur, rubs, or gallops appreciated. ABDOMEN - Abdominal contour without pulsations or visible masses. Negative Jimi's or Jones Soria's Signs. BS normoactive all four quadrants. Increased tenderness to palpation appreciated across her entire abdomen. No palpable masses, hepatosplenomegaly, or ascites noted. NEUROLOGIC - Sensory intact to light touch throughout. PSYCH - A&Ox3 and cooperates fully with examiner. Pt is very pleasant and interacts well with examiner. Course Administered Medications Sodium Chloride (Nss) 1,000 mls @ 80 mls/hr IV .[id number] CIRO Stop: 11/26/24 22:29 Last Admin: 11/25/24 23:24 Dose: 80 mls/hr Documented By: TABITHA Nicotine (Nicotine 7 Mg/24 Hr Tdsy) 1 patch TD DAILY CIRO Stop: 12/25/24 21:59 Last Admin: 11/25/24 22:21 Dose: Not Given Documented By: TOYA Discontinued Medications Capsaicin (Capsaicin Cr 0.075% 60 Gm Tube) 1 appln EXT NOW STA Stop: 11/25/24 21:56 Last Admin: 11/25/24 22:20 Dose: 1 appln Documented By: TOYA Diphenhydramine HCl (Diphenhydramine 50 Mg/Ml Vial) 25 mg IV NOW STA Stop: 11/25/24 21:56 Last Admin: 11/25/24 22:19 Dose: 25 mg Documented By: TOYA Acetaminophen (Ofirmev) 1,000 mg in 100 mls @ 400 mls/hr IV NOW STA Stop: 11/25/24 19:04 Last Infusion: 11/25/24 20:00 Dose: Infused Documented By: Admin: 11/25/24 19:27 Dose: 400 mls/hr Documented By: TABITHA Sodium Chloride (Nss) 1,000 mls @ 999 mls/hr IV .Q1H1M ONE Stop: 11/25/24 19:50 Last Infusion: 11/25/24 20:35 Dose: Infused Documented By: Admin: 11/25/24 19:24 Dose: 999 mls/hr Documented By: TABITHA Promethazine HCl (Phenergan) 12.5 mg in 50.5 mls @ 202 mls/hr IV NOW STA Stop: 11/25/24 20:24 Last Infusion: 11/25/24 20:35 Dose: Infused Documented By: Admin: 11/25/24 20:19 Dose: 202 mls/hr Documented By: TOYA Pantoprazole Sodium (Protonix) 40 mg in 10 mls @ 5 mls/min IV NOW ONE Stop: 11/25/24 21:56 Last Admin: 11/25/24 22:20 Dose: 5 mls/min Documented By: TOYA Famotidine (Pepcid 20mg Iv Push) 20 mg in 5 mls @ 2.5 mls/min IV NOW STA Stop: 11/25/24 21:56 Last Admin: 11/25/24 22:20 Dose: 2.5 mls/min Documented By: TOYA Ioversol (Optiray 320 100ml) 94 ml IV ONCE ONE Stop: 11/25/24 19:00 Last Admin: 11/25/24 18:59 Dose: 94 ml Documented By: AURELIO Ketorolac Tromethamine (Ketorolac Tromethamine 15 Mg/Ml Vial) 15 mg IV NOW STA Stop: 11/25/24 18:51 Last Admin: 11/25/24 19:24 Dose: 15 mg Documented By: TABITHA Ondansetron HCl (Ondansetron Inj 2 Mg/Ml 2 Ml Vial) 4 mg IV NOW STA Stop: 11/25/24 18:51 Last Admin: 11/25/24 19:24 Dose: 4 mg Documented By: TABITHA Oxycodone HCl (Oxycodone Hcl Ir 5 Mg Tab (Immediate Release)) 10 mg PO NOW STA Stop: 11/25/24 20:11 Last Admin: 11/25/24 20:20 Dose: 10 mg Documented By: TOYA Medical Decision Making Differential Diagnosis Differential diagnoses includes gastritis, gastroenteritis, IBS, small bowel obstruction, pancreatitis, peritonitis, constipation, abdominal abcess, UTI, pyelonephritis, kidney stone, among others. Medical Records Attestation: I reviewed the patient's medical records. Home Medications was personally reviewed by me Laboratory Data Attestation: I reviewed the patient's lab results. 11/25/24 17:32 11/25/24 17:32 Lab Results 11/25/24 11/25/24 Range/Units 17:32 20:12 WBC 11.24 H (4.8-10.8) K/ul RBC 4.71 (4.20-5.40) M/uL Hgb 14.0 (12.0-16.0) g/dl Hct 40.1 (37.0-47.0) % MCV 85.1 (80.0-100.0) fL MCH 29.7 (25.0-34.0) pg MCHC 34.9 (32.0-36.0) g/dL RDW Std Deviation 45.8 (36.4-46.3) fL RDW Coeff of Jessica 14.6 H (11.5-14.5) % Plt Count 535 H (130-400) K/uL MPV 8.6 L (9.4-12.4) fL Immature Gran % (Auto) 0.4 % Neut % (Auto) 59.1 % Lymph % (Auto) 31.0 % [place] % (Auto) 7.9 % Eos % (Auto) 0.5 % Baso % (Auto) 1.1 % Neut # (Auto) 6.64 H (1.40-6.50) K/uL Lymph # (Auto) 3.49 H (1.20-3.40) K/uL [place] # (Auto) 0.89 H (0.11-0.59) K/uL Eos # (Auto) 0.06 (0.00-0.50) K/uL Baso # (Auto) 0.12 (0.00-0.20) K/uL Immature Gran # (Auto) 0.04 (0.01-0.20) K/uL Sodium 137 (136-145) mmol/L Potassium 3.7 (3.5-5.1) mmol/L Chloride 100 (98-107) mmol/L Carbon Dioxide 26 (21-32) mmol/L Anion Gap 11 (3-11) BUN 21 (6-23) mg/dl Creatinine 0.61 (0.6-1.2) mg/dl Est Cr Clr Drug Dosing 97.4 ml/min eGFR 112.99 BUN/Creatinine Ratio 34.4 H (10-20) Glucose 121 H (70-99(Fasting)) mg/dl Calcium 8.5 L (8.6-10.3) mg/dl Magnesium 1.9 (1.7-2.4) mg/dl Total Bilirubin 0.6 (0.2-1.0) mg/dl AST 20 (13-39) U/L ALT 12 (7-52) U/L Alkaline Phosphatase 121 H (34-104) U/L Total Protein 6.6 (6.0-8.3) gm/dl Albumin 4.3 (3.4-5.0) gm/dl Globulin 2.3 L (2.5-4.0) gm/dl Albumin/Globulin Ratio 1.9 (0.9-2) Lipase 39 (11-82) U/L HCG, Qual Negative (Negative) Urine Color Yellow Urine Appearance Clear (Clear) Urine pH >= 9.0 H (4.5-7.5) Ur Specific [place] > 1.045 H (1.000-1.030) Urine Protein Trace H (Negative) Urine Glucose (UA) Negative (Negative) Urine Ketones 1+ H (Negative) Urine Blood Negative (Negative) Urine Nitrite Negative (Negative) Urine Bilirubin Negative (Negative) Urine Urobilinogen Negative (Negative) Ur Leukocyte Esterase Negative (Negative) Urine WBC (Auto) 0-5 (0-5) /hpf Urine RBC (Auto) 3-5 H (0-2) /hpf U Hyaline Cast (Auto) 0-2 (0-2) /lpf U Epithel Cells (Auto) 0-2 (0-2) /hpf Urine Bacteria (Auto) None Seen (None Seen) Imaging Data Radiologist's Impression: Abdomen/Pelvis CT 11/25/24 18:50 EXAM: CT Angiography Abdomen and Pelvis With Intravenous Contrast INDICATION: Worsening nausea, vomiting and pain. TECHNIQUE: Axial computed tomographic angiography images of the abdomen and pelvis with intravenous contrast. Sagittal and coronal reformatted images were created and reviewed. This CT exam was performed using one or more of the following dose reduction techniques: automated exposure control, adjustment of the mA and/or kV according to patient size, and/or use of iterative reconstruction technique. MIP reconstructed images were created and reviewed. CONTRAST: 94ml of Optiray 320 was administered intravenously. COMPARISON: 08/18/2023 FINDINGS: VASCULATURE: Aorta: Atherosclerotic calcification of the aorta and branches. No aneurysm. Celiac trunk and mesenteric arteries: No acute change noted. No occlusion or significant stenosis. Renal arteries: No acute change noted. No occlusion or significant stenosis. Iliac arteries: No acute change noted. No occlusion or significant stenosis. Lung bases: No abnormality noted. No mass. No consolidation. ABDOMEN: Liver: Normal size and contour. Hypodense typical of steatosis. No mass or ductal dilation. Gallbladder and bile ducts: Cholecystectomy. No ductal dilation or stone noted. Pancreas: Stable chronic proximal pancreatic calcifications. The pancreas otherwise appears normal. No ductal dilation. Spleen: No abnormality noted. No splenomegaly. Adrenals: No abnormality noted. No mass. Kidneys and ureters: 3 mm nonobstructing left lower pole kidney stone. Stomach and bowel: No abnormality noted. No obstruction. No mucosal thickening. PELVIS: Appendix: Well seen and appears normal. Bladder: No abnormality noted. No mass. Reproductive: No significant abnormality noted. ABDOMEN and PELVIS: Intraperitoneal space: No abnormality noted. No significant fluid collection. No free air. Bones/joints: No acute or atypical chronic changes. Soft tissues: No abnormality noted. Lymph nodes: No abnormality noted. No enlarged lymph nodes. Tubes, lines and devices: Intrauterine contraceptive device in good position. IMPRESSION: 1. No acute abnormality. 2. Proximal pancreatic calcifications consistent with chronic pancreatitis. No acute pancreatitis. ACT 112: Negative or not required by law. Electronically signed by Kamala Webster 11-25-2024 7:34 PM MDM Narrative Patient is a 43-year-old female who presents to the emergency department with complaints of diffuse abdominal pain, vomiting, and diarrhea. Patient states that her symptoms have been ongoing for over 3 weeks but the pain is worsened today. Patient states that she has been so nauseous that she has not been able to hold down the pain medications that she takes at home. Patient has a history of chronic pancreatitis and back pain that she takes oxycodone for at home. Patient states that she has also been having streaks of bright red blood in her stool from time to time. Patient was seen by her primary care physician for same symptoms but was not diagnosed with any particular cause. Patient notes that she sees a branch assistant but did not contact her branch assistant for the symptoms. Patient was evaluated by myself and findings were noted in the physical exam above. Patient was ordered IV placement, lab work, urinalysis, CT of the abdomen and pelvis, as well as a dose of IV Tylenol, Toradol, and Zofran for symptoms. Patient's lab work resulted with a mildly elevated white blood cell count of 11.24. Patient had no evidence of anemia with a hemoglobin of 14.0 and hematocrit of 40.1. Patient had no evidence of electrolyte imbalance. Patient also had a serum qualitative hCG that was negative. Patient's urinalysis was not indicative of infection. Patient's alkaline phosphatase was elevated at 121 and otherwise had normal liver function tests. Patient CT of the abdomen and pelvis was completed and interpreted by radiology to show no acute abnormality. Patient had proximal pancreatic calcifications that are consistent with her history of chronic pancreatitis however there is no evidence of acute pancreatitis. Upon reevaluation the patient states that she still having significant pain and nausea. Patient was given a dose of Phenergan as well as a dose of her likely prescribed oxycodone. I discussed all of these findings and the results of the lab work as well as the imaging with the patient who verbalized understanding. I discussed with the patient that I could send her home with some Zofran to help with her nausea and some home care instructions for symptom control at home and she could follow-up with her primary care physician and branch assistant in the outpatient setting. Patient states that she does not feel comfortable or safe going home as she states that she is scared that she is not going to be able to control her pain and nausea at home. [facility] hospitalist group was consulted for admission to the hospital. Dr. Quesada excepted this patient for admission under his hospitalist service. Please refer to [facility] hospitalist group's documentation for further evaluation and management of this patient. Impression Chronic abdominal pain, Nausea & vomiting Discharge Plan Visit Data Chief Complaint: Vomiting Stated Complaint: VOMITING, DIARRHEA ED Provider: Harjinder [place] ED Midlevel Provider: Risa Griffith Discharge Problem: Chronic abdominal pain, Nausea & vomiting Patient Disposition: Admitted As Inpatient Discharge Instructions Interventions: ED Discharge Assessment Last Done: 11/25/24 23:46 Discharge Problem: Nausea & vomiting Qualifiers: Vomiting type: unspecified Qualified Code(s): R11.2 - Nausea with vomiting, unspecified
--- NOTE | 2024-11-25 21:40 | History & Physical Report ---
Date of Service November 25, 2024 Assessment & Plan (1) Intractable abdominal pain: (2) Nausea & vomiting: (3) Hematochezia: (4) Gastritis: (5) Chronic prescription opiate use: (6) Chronic pancreatitis: (7) Leukocytosis: (8) Tobacco abuse: Plan Patient is a 43-year-old female with a past medical history of chronic pancreatitis, gastritis, portal vein thrombosis on Eliquis, tobacco use, medical marijuana use, chronic opioid dependence, history of alcohol abuse. She presented to the ED due to nausea, vomiting, diarrhea, and intractable abdominal pain for approximately 1 month. For the past day she has been unable to keep down any p.o. intake. She also endorses hematochezia. She has been admitted for IV nausea control, and GI eval and may consider colonoscopy. #Intractable abdominal pain/nausea/vomiting/diarrhea/hematochezia differential includes but not limited to gastritis, cannabis hyperemesis syndrome, chronic pancreatitis, lower GI bleed AP CT showed chronic pancreatitis, no acute changes consult GI - patient reports was to have coloscopy outpatient several weeks ago, NPO after midnight nausea control with IV Zofran, IV Phenergan, and IV Benadryl famotidine and Protonix IV cannabis hyperemesis syndrome - capsaicin QID prn abd pain - IV Tylenol 1G prn, see opioid use below and defer further NSAIDs with bleeding dehydration (Bun/Cr 34.4, urine specific gravity >1.045, urine pH >9.0) - received 1L NSS bolus in ED, continue fluid resuscitation with NSS at 80 mL/hour overnight #chronic opioid use disorder PCP noted patient is not to have any additional opioids unless cleared by PCP Was given 10 Mg oxycodone in ED for abdominal pain will continue home pain regimen with oxycodone 5 Mg every 8 as needed, baclofen, methocarbamol, gabapentin 600mg TID defer any additional opioid use #chronic pancreatitis hx of alcohol abuse; denies current alcohol use lipase 39; trend continue creon #leukocytosis WBC 11.24 chronic elevated, at baseline #tobacco abuse nicotine patch ordered Chronic stable diagnoses: thrombocytosis - plt count 535 on admission depression/anxiety - continue fluoxetine 11/27, hold for npo h/o portal vein thrombosis in 2018 - hold Eliquis with possible colonoscopy VTE ppx: SCDs, defer chemical ppx with hematochezia Diet: clear, NPO after midnight Dispo: med surg Admission and Anticipated Discharge Date Admission Date: 11/25/24 History of Present Illness Chief Complaint: vomiting Primary Care Provider: Radha Alicea MD Patient is a 43-year-old female with a past medical history of chronic pancreatitis, gastritis, portal vein thrombosis on Eliquis, tobacco use, medical marijuana use, chronic opioid dependence, history of alcohol abuse. She presented to the ED due to nausea, vomiting, diarrhea, and intractable abdominal pain for approximately 1 month. For the past day she has been unable to keep down any p.o. intake. She also endorses hematochezia. She has been admitted for IV nausea control, and GI eval and may consider colonoscopy. Patient seen at bedside with her mother present. She stated 3 to 4 weeks ago she developed this nausea, vomiting, and diarrhea which did stop approximately a week ago but returned 2 days ago and was severe. She stated her abdominal pain is 9/10. The pain is in her anterior abdomen and through to her back, this feels more painful than her typical chronic pancreatitis pain. She has been unable to keep down any p.o. intake today including her home medications. She also endorses blood in stool stating that it is streaky and multiple trips with each bowel movement. She denies any diffuse blood filling the toilet. She thinks that it could be hemorrhoids. She was supposed to have a colonoscopy a few weeks ago however did not go because of the nausea and vomiting. She stated she has had multiple EGDs in the past that did show a history of ulcers. Her most recent may have been in May. She follows with GI at [facility]. She stated she currently feels feverish and is wanting, however feels she needs a nicotine patch. She also endorses a cough with some sputum production. Patient denies rhinorrhea, sore throat. She stated that she typically smokes half a pack of cigarettes per day. She also smokes medical marijuana daily and last smoked around 11 AM this morning. She no longer drinks alcohol. She received 10 Mg oxycodone p.o. in ED, requesting more pain medication on admission. She stated her nausea has improved with ED course however still present. She is due for her evening medications including Eliquis. She wishes to be full code. Allergies Allergy/AdvReac Type Severity Reaction Status Date / Time buspirone [From BuSpar] Allergy Severe Unconscious, Verified 11/18/24 09:32 seizures quetiapine [From Seroquel] Allergy Severe Unconscious, Verified 11/18/24 09:32 seizures citalopram [From Celexa] AdvReac Intermediate Vomiting Verified 11/18/24 09:32 morphine AdvReac Intermediate Vomiting Verified 11/18/24 09:32 metoclopramide AdvReac Unknown "Twitchy" Verified 11/18/24 09:32 vilazodone [From Viibryd] AdvReac Vomiting Verified 11/18/24 09:32 Home Medications Medication Instructions Recorded Confirmed Type clindamycin phosphate 1 % topical 1 applic topical DAILY PRN Acne 02/17/23 11/25/24 History gel medical marijuana 1 puff inhalation UD PRN 05/21/23 11/18/24 History Sleep/stomach issues/anxiety TENS unit and electrodes combo pack #1 ea 07/10/23 11/18/24 Rx cholecalciferol (vitamin D3) 250 250 mcg PO QAM 08/18/23 11/25/24 History mcg (10,000 unit) capsule qthddz-tuufcend-gdjxwus 3 cap PO TID Abdominal Discomfort 10/23/23 11/25/24 Rx 36,000-114,000-180,000 unit 90 days #810 caps capsule,delay rel (Creon) mecobalamin (vitamin B12) 1,000 1,000 mcg PO QAM #100 tabs 01/20/24 11/25/24 Rx mcg chewable tablet (B12 Active) clotrimazole-betamethasone 1 1 applic EXT BID #30 grams 02/23/24 11/25/24 Rx %-0.05 % topical cream apixaban 5 mg tablet (Eliquis) 5 mg PO BID #90 tabs 06/22/24 11/25/24 Rx sumatriptan succinate 100 mg tablet 100 mg PO DAILY PRN 07/19/24 11/25/24 Rx migraine/headache #20 tabs gabapentin 600 mg tablet 600 mg PO TID 30 days #90 tabs 07/30/24 11/25/24 Rx levonorgestrel 21 mcg/24 hr (up to intrauterine 08/16/24 11/18/24 History 8 years) 52 mg intrauterine device (Mirena) promethazine 25 mg tablet 25 mg PO Q6H PRN nausea and 08/24/24 11/25/24 Rx vomiting #30 tabs ondansetron 4 mg disintegrating 4 mg PO Q6H PRN Nausea And 09/01/24 11/25/24 Rx tablet Vomiting 30 days #60 tabs folic acid 1 mg tablet 1 mg PO DAILY #90 tabs 09/27/24 11/25/24 Rx fluoxetine 40 mg capsule 40 mg PO DAILY #90 caps 10/11/24 11/25/24 Rx pantoprazole 40 mg tablet,delayed 40 mg PO BID #180 tabs 10/11/24 11/25/24 Rx release baclofen 20 mg tablet 20 mg PO TID PRN neck pain/muscle 10/20/24 11/25/24 Rx spasm #270 tabs clonazepam 0.5 mg tablet 0.25 mg (1/2 x 0.5 mg) PO BID PRN 11/16/24 11/25/24 Rx anxiety 28 days #22 tabs albuterol sulfate 90 mcg/actuation 2 puff inhalation Q4H PRN 11/18/24 11/25/24 Rx aerosol inhaler (Ventolin HFA) cough/wheeze/shortness of breath #1 inhaler methocarbamol 750 mg tablet 750 mg PO TID PRN pain #90 tabs 11/24/24 11/25/24 Rx oxycodone 5 mg tablet 5 mg PO Q8H PRN pain 2 weeks #42 11/24/24 11/25/24 Rx tabs Past Med/Surg History Problem List (Updated 11/26/24 @ 04:38 by Taylor Lindsay PA-C) Tobacco abuse Leukocytosis Gastritis Chronic pancreatitis Per records Hematochezia Intractable abdominal pain Nausea & vomiting (Acute) History of gastritis History of alcohol abuse Restless leg syndrome Medical marijuana use Chronic prescription opiate use Chronic prescription benzodiazepine use Chronic abdominal pain (Acute) Chronic pain syndrome Right ankle sprain Tendinitis of both rotator cuffs Gastroparesis Intertrigo Low serum cortisol level Other cervical disc degeneration at C6-C7 level Degeneration of thoracolumbar intervertebral disc T12-L1 Other cervical disc degeneration at C5-C6 level Elevated hemidiaphragm Generalized anxiety disorder with panic attacks Portal vein thrombosis (~2019) Dental decay Hiatal hernia (Chronic) Medical History Gastritis Chronic pancreatitis Per records Pancreatic pseudocyst Pancolitis Adjustment disorder with depressed mood Per records History of seizure due to alcohol withdrawal 2020, "from either alcohol or clonazepam" PTSD (post-traumatic stress disorder) Hx of migraines Iron deficiency anemia Insomnia Hiatal hernia Nocturnal hypoxia Noted during previous hospitalizations per patient, plan for future sleep study (not scheduled until 07/2024 per patient) Degeneration of thoracolumbar intervertebral disc History of colitis Cervical radiculopathy Cervical spondylosis Anxiety and depression Tendinitis of right rotator cuff Ongoing Acne Cream every 4-6 months GERD (gastroesophageal reflux disease) Panic attacks hx Peptic ulcer disease hx Surgical History H/O oral surgery History of breast biopsy History of esophagogastroduodenoscopy (EGD) 2016 History of cholecystectomy History of tooth extraction History of lumpectomy of right breast "benign" Family History Father Family history of diabetes mellitus Myocardial infarction Stroke Hypertension Grandfather (Maternal) Family history of diabetes mellitus Grandmother (Maternal) Family history of diabetes mellitus Hypertension Cancer Mother Hypothyroidism Grandfather (Paternal) Cancer Heart problem Grandmother (Paternal) Hypertension Denies family history of Ovarian cancer Prostate cancer Breast cancer Colorectal cancer Social History Smoking Status: Current every day smoker Tobacco Type: Cigarettes Age Started Using Tobacco: 15; packs per day: 0.5; Cigarettes Per Day: 12; Second Hand Exposure: No; Do You Dip or Chew Tobacco: No; Hx Alcohol Use: No Hx Substance Use: Yes Last Used Substance: Hours (ago) Substance Use Type Other:: Smokes Pixtaanna Preferred Language: Polish Communication Ability: Effective Visual Impairment: No Limitations Hearing Ability: Normal Telegraph Office Manager Required: No Beliefs That Will Affect Care: None marital status: Single Current Living Situation: Parent Current Living Situation Comment: lives w/ mother and dog current occupational status: employed current occupation: at [employer] How many Children do You have: 0 Other Information That Helps Us Care for You: No Feels Safe at Home: Yes Childhood Exposure to Second-Hand Smoke: No Diet: regular Diet Comment: regular Dental Care, Regularly: Yes Physical Activity Frequency: Does not Exercise Seatbelt Use: always Sunscreen Use: Yes Do you think of yourself as: straight/heterosexual Assistive Devices: None Review of Systems Review of Systems: see HPI Physical Exam Physical Exam: The patient is awake, alert and oriented 3, well developed and well nourished, normocephalic and atraumatic, in no acute distress. Diaphoretic. HEENT- EOMI, mucous membranes dry. Hearing grossly intact. Heart-normal S1 and S2. No murmurs, rubs or gallops. Lungs-clear bilaterally, no respiratory distress, no accessory muscle use. Abdomen-normal bowel sounds and soft. No ascites noted. Tender to palpations RUQ and LUQ. Extremities- no clubbing, cyanosis, or edema. Rheumatologic-normal range of motion. Psychiatric-normal affect. Results & Data Results & Data Vital Signs (Past 12 Hours) Vital Signs Temp Pulse Pulse Resp BP BP Pulse Ox 11/25/24 21:02 85 20 129/91 93 11/25/24 19:45 87 11/25/24 19:36 87 20 125/97 100 11/25/24 17:23 36.7 C 120 H 18 120/90 97 O2 Del Method 11/25/24 21:02 Room Air 11/25/24 19:45 11/25/24 19:36 Room Air 11/25/24 17:23 Room Air Laboratory Results Reviewed CBC, CMP, lipase, HcG, UA, mag Diagnostic Findings CT AP Medications Administered ED - Oxycodone 10 Mg, Zofran 4 Mg IV, Toradol 15 Mg IV, Tylenol 1G IV, 1L NSS bolus, Phenergan 12.5 Mg IV Admissioncapsaicin, Benadryl 25 Mg IV, Protonix IV, famotidine IV ECG Additional Comments: ordered Code Status & VTE Plan Code Status full code VTE Prophylaxis Plan VTE Prophylaxis will be ordered: Yes Supervising Physician Co-Signing Physician Notes Attending addendum: I have physically seen this patient, have supervised the BUFFY's activities, and agree with the H&P unless as otherwise noted. Assessment and Plan: Patient is a 43-year-old female with past medical history including chronic pancreatitis, gastritis, portal vein thrombosis on Eliquis, tobacco use, medical marijuana use, chronic opioid dependence, and history of alcohol abuse. She presents to the emergency department with nausea, vomiting, diarrhea and intractable abdominal pain for approximately 1 month. She reports that she has been unable to keep any food or medications down during this interval Intractable abdominal pain, nausea, vomiting, diarrhea, hematochezia- differential includes not limited to gastritis, cannabis hyperemesis syndrome, chronic pancreatitis, and GI bleed CT scan abdomen pelvis consistent with chronic pancreatitis, without acute changes Control nausea with Zofran IV, Phenergan IV and Benadryl IV as noted Famotidine IV Protonix IV for acid reduction Cannabis hyperemesis syndrome-capsaicin 4 times daily as needed Acetaminophen 1 g IV every 8 hours as needed for mild pain or fever Status post 1 L normal saline bolus in ED Continue NSS at 80 mL/h x 1 L overnight Chronic opioid use disorder- Continue outpatient dosing of oxycodone, baclofen, methocarbamol, gabapentin Chronic pancreatitis- History of alcohol abuse, denies current alcohol use Lipase 39 Continue Creon Remaining orders and notations as noted PG Care Time/CCT Total # of Minutes Spent Total Time Spent with Patient: Total time spent is greater than 50% in coordination of care (as documented) at patient's floor/unit and/or counseling patient: Coding Level of Care Code 61522 INT INP/OBS CARE 3/75MIN Diagnoses Intractable abdominal pain R10.9 Nausea & vomiting R11.2 Vomiting type: unspecified Hematochezia K92.1 Acute alcoholic gastritis without hemorrhage K29.50 Chronicity: chronic Gastritis bleeding: without bleeding Gastritis type: unspecified gastritis Chronic prescription opiate use Z79.891 Chronic pancreatitis K86.1 Pancreatitis type: unspecified pancreatitis type Leukocytosis D72.829 Tobacco abuse Z72.0 (2) Nausea & vomiting Vomiting type: unspecified Qualified Code(s): R11.2 - Nausea with vomiting, unspecified (4) Gastritis Chronicity: chronic Gastritis bleeding: without bleeding Gastritis type: unspecified gastritis Qualified Code(s): K29.50 - Unspecified chronic gastritis without bleeding (6) Chronic pancreatitis Pancreatitis type: unspecified pancreatitis type Qualified Code(s): K86.1 - Other chronic pancreatitis
[2024-11-25] MEDS ORDERED: CAPSAICIN CR 0.075% 60 GM TUBE EXT PRN (21:55)
[2024-11-25] MEDS: diphenhydrAMINE 50 MG/ML VIAL IV STA (22:19)
[2024-11-25] MEDS: FAMOTIDINE 20MG IV PUSH 20 MG/5 ML SYR IV STA (22:20)
[2024-11-25] MEDS: PANTOprazole 40 MG/10 ML SYR IV ONE (22:20)
[2024-11-25] MEDS: CAPSAICIN CR 0.075% 60 GM TUBE EXT STA (22:20)
[2024-11-25] MEDS: NICOTINE 7 MG/24 HR TDSY TD SCH (22:21)
[2024-11-25 22:35] LABS: Magnesium 1.9 mg/dl (1.7-2.4)
[2024-11-25] MEDS: SODIUM CHLORIDE 0.9% 1,000 ML IV SCH (23:24)
[2024-11-26] MEDS: diphenhydrAMINE 50 MG/ML VIAL IV PRN (00:44)
[2024-11-26] MEDS: oxyCODONE HCL IR 5 MG TAB (IMMEDIATE RELEASE) PO PRN (00:44)
[2024-11-26] MEDS: clonazePAM 0.5 MG TAB PO PRN (00:50)
[2024-11-26] MEDS: ACETAMINOPHEN 1,000 MG/100 ML VIAL IV PRN (02:18)
[2024-11-26] MEDS: PROMETHAZINE 12.5 MG/50.5 ML BAG IV PRN (02:37)
[2024-11-26] MEDS: KETOROLAC TROMETHAMINE 15 MG/ML VIAL IV ONE (06:35)
[2024-11-26] MEDS: METHOCARBAMOL 750 MG TABLET PO PRN (06:37)
[2024-11-26 06:52] LABS: Basophils # (auto) 0.08 K/uL (0.00-0.20); Basophils % (auto) 0.9 %; Eosinophils # (auto) 0.15 K/uL (0.00-0.50); Eosinophils % (auto) 1.7 %; Hematocrit (blood only) 34.9 % (37.0-47.0); Hemoglobin 12.1 g/dl (12.0-16.0); Immature Granulocytes # (auto) 0.02 K/uL (0.01-0.20); Immature Granulocytes % (auto) 0.2 %; Lymphocytes % (auto) 36.5 %; Mean Corpuscular Hemoglobin 30.1 pg (25.0-34.0); Mean Corpuscular Hgb Conc 34.7 g/dL (32.0-36.0); Mean Corpuscular Volume 86.8 fL (80.0-100.0); Monocytes # (auto) 1.33 K/uL (0.11-0.59); Monocytes % (auto) 14.7 %; Neutrophils # (auto) 4.15 K/uL (1.40-6.50); Platelet Count 442 K/uL (130-400); RDW Coefficient of Variation 14.8 % (11.5-14.5); RDW Standard Deviation 47.1 fL (36.4-46.3); Red Blood Count 4.02 M/uL (4.20-5.40); White Blood Count 9.03 K/ul (4.8-10.8)
[2024-11-26 07:27] LABS: Albumin Globulin Ratio 1.5 (0.9-2); Albumin Level 3.3 gm/dl (3.4-5.0); BUN Creatinine Ratio 32.1 (10-20); Globulin 2.2 gm/dl (2.5-4.0); Magnesium 1.7 mg/dl (1.7-2.4); Potassium 3.1 mmol/L (3.5-5.1); Total Protein 5.5 gm/dl (6.0-8.3)
[2024-11-26] MEDS: PANCREAZE (LIPASE 16,800U) CAP PO SCH (09:45)
[2024-11-26] MEDS: GABAPENTIN 600 MG TAB PO SCH (09:46)
[2024-11-26] MEDS: PANTOprazole 40 MG/10 ML SYR IV SCH (09:51)
[2024-11-26] MEDS: ONDANSETRON INJ 2 MG/ML 2 ML VIAL IV PRN (10:15)
--- NOTE | 2024-11-26 12:06 | Gastrointestinal Consultation ---
Date of Consultation November 26, 2024 Assessment & Plan (1) Chronic pancreatitis: (2) Gastritis: Plan Patient admitted with 1 month history of abdominal pain, nausea, vomiting, diarrhea, and hematochezia. She has a history of chronic pancreatitis. She had EGD 04/2024 showing gastritis and is planned for colonoscopy next month with [facility]. She did have GES in the past suggestive of delayed gastric emptying though does have narcotics listed on her medications and a history of opioid dependence - unclear if this would have effected results of testing. - continue with protonix 40mg IV bid. continue with famotidine 20mg IV bid. - we discussed a trial of carafate but she tells me she does not want to take this and this doesn't work. - she asked about pain medications for pain control. I told her she would have to address with her hospitalist. - I will discuss case further with Dr. May. Further recommendations to follow. Supervising Physician Co-Signing Physician Notes Persistent nausea and vomiting. High probability that there is a component of the delayed gastric emptying related to her narcotics plus or minus pancreatitis. Also strong probability of marijuana hyperemesis syndrome. Main management of her nausea and vomiting this situation will be to minimize narcotics though that is not likely. However she seems to be open to stopping marijuana. I do not think a repeat upper endoscopy at this point will be of any benefit. Does not want Carafate treat with PPI and H2 stephany. The hematochezia does not to seem to be associated with any development of anemia does not appear to be progressive and can wait for outpatient colonoscopy. We will reassess and reevaluate if there is evidence of persistent or worsened hematochezia History of Present Illness Reason for Consultation: hematochezia, abdominal pain, nausea, vomiting. Requesting Physician: Taylor VELAZQUEZ Attending Physician: Camilo Guajardo MD History of Present Illness Patient is a 43 year old female with a past medical history of chronic pancreatitis, gastritis, portal vein thrombosis on Eliquis, tobacco use, medical marijuana use, chronic opioid dependence, history of alcohol abuse who presented to the ED on 11/25 with complaints of nausea, vomiting, diarrhea, and intractable abdominal pain for approximately 1 month. She was not tolerating oral intake prior to admission. She also admits to some mild brbpr related to moving her bowels that she feels may be hemorrhoidal. She has been having upwards of 4 bowel movements daily. no melena. patient does use eliquis for history of portal vein thrombosis. she denies any current alcohol use. no nsaids. She had EGD 04/2024 with [facility] showing gastritis. she tells me she was supposed to have a colonoscopy with [facility] earlier this month, but she cancelled due to not feeling well. she has this rescheduled for November. Stool studies shown c diff gene positive, but toxin negative. stools negative for salmonella/shigella/campylobacter/shiga. 11/25/24 hgb 14, hct 40.1, platelets 535, wbc 11.2. alk phos 121, rest of LFTs wnl. lipase 39. 11/25/24 CT No acute abnormality. Proximal pancreatic calcifications consistent with chronic pancreatitis. No acute pancreatitis. Allergies Allergy/AdvReac Type Severity Reaction Status Date / Time buspirone [From BuSpar] Allergy Severe Unconscious, Verified 11/18/24 09:32 seizures quetiapine [From Seroquel] Allergy Severe Unconscious, Verified 11/18/24 09:32 seizures citalopram [From Celexa] AdvReac Intermediate Vomiting Verified 11/18/24 09:32 morphine AdvReac Intermediate Vomiting Verified 11/18/24 09:32 metoclopramide AdvReac Unknown "Twitchy" Verified 11/18/24 09:32 vilazodone [From Viibryd] AdvReac Vomiting Verified 11/18/24 09:32 Home Medications Medication Instructions Recorded Confirmed Type clindamycin phosphate 1 % topical 1 applic topical DAILY PRN Acne 02/17/23 11/25/24 History gel medical marijuana 1 puff inhalation UD PRN 05/21/23 11/18/24 History Sleep/stomach issues/anxiety TENS unit and electrodes combo pack #1 ea 07/10/23 11/18/24 Rx cholecalciferol (vitamin D3) 250 250 mcg PO QAM 08/18/23 11/25/24 History mcg (10,000 unit) capsule wsvvqi-gexwfgan-bodwldv 3 cap PO TID Abdominal Discomfort 10/23/23 11/25/24 Rx 36,000-114,000-180,000 unit 90 days #810 caps capsule,delay rel (Creon) mecobalamin (vitamin B12) 1,000 1,000 mcg PO QAM #100 tabs 01/20/24 11/25/24 Rx mcg chewable tablet (B12 Active) clotrimazole-betamethasone 1 1 applic EXT BID #30 grams 02/23/24 11/25/24 Rx %-0.05 % topical cream apixaban 5 mg tablet (Eliquis) 5 mg PO BID #90 tabs 06/22/24 11/25/24 Rx sumatriptan succinate 100 mg tablet 100 mg PO DAILY PRN 07/19/24 11/25/24 Rx migraine/headache #20 tabs gabapentin 600 mg tablet 600 mg PO TID 30 days #90 tabs 07/30/24 11/25/24 Rx levonorgestrel 21 mcg/24 hr (up to intrauterine 08/16/24 11/18/24 History 8 years) 52 mg intrauterine device (Mirena) promethazine 25 mg tablet 25 mg PO Q6H PRN nausea and 08/24/24 11/25/24 Rx vomiting #30 tabs ondansetron 4 mg disintegrating 4 mg PO Q6H PRN Nausea And 09/01/24 11/25/24 Rx tablet Vomiting 30 days #60 tabs folic acid 1 mg tablet 1 mg PO DAILY #90 tabs 09/27/24 11/25/24 Rx fluoxetine 40 mg capsule 40 mg PO DAILY #90 caps 10/11/24 11/25/24 Rx pantoprazole 40 mg tablet,delayed 40 mg PO BID #180 tabs 10/11/24 11/25/24 Rx release baclofen 20 mg tablet 20 mg PO TID PRN neck pain/muscle 10/20/24 11/25/24 Rx spasm #270 tabs clonazepam 0.5 mg tablet 0.25 mg (1/2 x 0.5 mg) PO BID PRN 11/16/24 11/25/24 Rx anxiety 28 days #22 tabs albuterol sulfate 90 mcg/actuation 2 puff inhalation Q4H PRN 11/18/24 11/25/24 Rx aerosol inhaler (Ventolin HFA) cough/wheeze/shortness of breath #1 inhaler methocarbamol 750 mg tablet 750 mg PO TID PRN pain #90 tabs 11/24/24 11/25/24 Rx oxycodone 5 mg tablet 5 mg PO Q8H PRN pain 2 weeks #42 11/24/24 11/25/24 Rx tabs Patient History Medical History Gastritis Chronic pancreatitis Per records Pancreatic pseudocyst Pancolitis Adjustment disorder with depressed mood Per records History of seizure due to alcohol withdrawal 2020, "from either alcohol or clonazepam" PTSD (post-traumatic stress disorder) Hx of migraines Iron deficiency anemia Insomnia Hiatal hernia Nocturnal hypoxia Noted during previous hospitalizations per patient, plan for future sleep study (not scheduled until 07/2024 per patient) Degeneration of thoracolumbar intervertebral disc History of colitis Cervical radiculopathy Cervical spondylosis Anxiety and depression Tendinitis of right rotator cuff Ongoing Acne Cream every 4-6 months GERD (gastroesophageal reflux disease) Panic attacks hx Peptic ulcer disease hx Surgical History H/O oral surgery History of breast biopsy History of esophagogastroduodenoscopy (EGD) 2016 History of cholecystectomy History of tooth extraction History of lumpectomy of right breast "benign" Family History Father Family history of diabetes mellitus Myocardial infarction Stroke Hypertension Grandfather (Maternal) Family history of diabetes mellitus Grandmother (Maternal) Family history of diabetes mellitus Hypertension Cancer Mother Hypothyroidism Grandfather (Paternal) Cancer Heart problem Grandmother (Paternal) Hypertension Denies family history of Ovarian cancer Prostate cancer Breast cancer Colorectal cancer Social History Smoking Status: Current every day smoker Tobacco Type: Cigarettes Age Started Using Tobacco: 15; packs per day: 0.5; Cigarettes Per Day: 12; Second Hand Exposure: No; Do You Dip or Chew Tobacco: No; Hx Alcohol Use: No Hx Substance Use: Yes Last Used Substance: Hours (ago) Substance Use Type Other:: Smokes Marijuanna Preferred Language: Vincentian Communication Ability: Effective Visual Impairment: No Limitations Hearing Ability: Normal Final Inspector Paper Required: No Beliefs That Will Affect Care: None marital status: Single Current Living Situation: Parent Current Living Situation Comment: lives w/ mother and dog current occupational status: employed current occupation: at [employer] How many Children do You have: 0 Other Information That Helps Us Care for You: No Feels Safe at Home: Yes Childhood Exposure to Second-Hand Smoke: No Diet: regular Diet Comment: regular Dental Care, Regularly: Yes Physical Activity Frequency: Does not Exercise Seatbelt Use: always Sunscreen Use: Yes Do you think of yourself as: straight/heterosexual Assistive Devices: None Review of Systems Review of Systems: All systems reviewed & are unremarkable except as noted in HPI & below Physical Exam Constitutional: WD/WN, vitals as above Respiratory: normal respiratory effort, lungs clear to auscultation Cardiovascular: Rate/Rhythm: regular rate and regular rhythm Gastrointestinal (Abdomen): mild diffuse tenderness, no guarding, soft, normal bowel sounds. Psychiatric: Orientation: alert and oriented x 3 Results & Data Vital Signs (Past 12 Hours) Vital Signs Temp Pulse Resp BP Pulse Ox O2 Del Method 11/26/24 07:29 98.4 F 74 16 114/77 98 Room Air 11/26/24 00:10 97.5 F L 99 H 18 126/84 97 Room Air Coding Level of Care Code 68840 IN/OBS CONSULT LVL 4,60M Diagnoses Chronic pancreatitis K86.1 Pancreatitis type: unspecified pancreatitis type Acute alcoholic gastritis without hemorrhage K29.50 Chronicity: chronic Gastritis bleeding: without bleeding Gastritis type: unspecified gastritis (1) Chronic pancreatitis Pancreatitis type: unspecified pancreatitis type Qualified Code(s): K86.1 - Other chronic pancreatitis (2) Gastritis Chronicity: chronic Gastritis bleeding: without bleeding Gastritis type: unspecified gastritis Qualified Code(s): K29.50 - Unspecified chronic gastritis without bleeding
[2024-11-26] MEDS: FAMOTIDINE 20MG IV PUSH 20 MG/5 ML SYR IV SCH (14:07)
--- NOTE | 2024-11-26 15:41 | Hospitalist Progress Note ---
Date of Service November 26, 2024 Assessment & Plan (1) Intractable abdominal pain: (2) Nausea & vomiting: (3) Chronic prescription opiate use: (4) Chronic pancreatitis: (5) Leukocytosis: (6) Tobacco abuse: Plan Patient is a 43-year-old female with a past medical history of chronic pancreatitis, gastritis, portal vein thrombosis on Eliquis, tobacco use, medical marijuana use, chronic opioid dependence, history of alcohol abuse. She presented to the ED due to nausea, vomiting, diarrhea, and intractable abdominal pain for approximately [address] A/P showed chronic pancreatitis but no acute changes. She was admitted for IV nausea control, and GI eval. #Intractable abdominal pain/nausea/vomiting/diarrhea Suspect this is multifocal: gastroparesis, cannabis hyperemesis syndrome, chronic pancreatitis, functional abdominal pain and pain seeking behavior GI consulted - continue Protonix and famotidine twice daily. Patient declined Carafate nausea control with IV Zofran, IV Phenergan, and IV Benadryl Dehydration treated with 2 L of IV fluids. Now tolerating p.o. History of gastroparesisdid not tolerate Reglan, will trial erythromycin before meals Marijuana cessation encouraged, declined further capsaicin cream. #chronic opioid use disorder Continue home pain regimen with oxycodone 5 Mg every 8 as needed, baclofen, methocarbamol, gabapentin 600mg TID Defer any additional opioid use- this is strictly managed her PCP, hx of polysubstance of abuse reported to RN #chronic pancreatitis hx of alcohol abuse; reports sober since 12/2023 - congratulated lipase negative x2, Continue creon #tobacco abuse nicotine patch ordered Thrombocytosis - plt count 535 on admission depression/anxiety - continue fluoxetine 11/27, hold for npo h/o portal vein thrombosis in 2018 - hold Eliquis with possible colonoscopy Dispo: continued inpatient stay DVT proh: elqiuis held, SCDs Admission and Anticipated Discharge Date Admission Date: November 25, 2024 Supervising Physician Co-Signing Physician Notes Attending Attestation - Chart reviewed, care plan d/w JOJO Figueroa. I agree w/ the hammonds components of her documentation. Appreciate GI consultation. Camilo Guajardo MD Subjective patient seen lying in bed. Last with the patient from the hallway she was smiling and moving around in the bed, when I entered the room she mainly became tearful and said her pain was so terrible. We had a long discussion, stating that this pain is not much different than her chronic pain at home but she was unable to keep food or medicine down and that is when she decided to come in. There is an empty lunch tray on her bedside table and says that she was able to tolerate lunch Her abdominal pain is mainly in the epigastric area, eating does not usually seem to make it worse. She seems to be understanding that opioids are not going to help her in the long run but just wants the pain to be improved. Did not tolerate Reglan, has not tried anything else in the past for her gastroparesis reports more stress recently, changing jobs. But feels like her mental health has been controlled has to get a new counselor. Review of Systems Review of Systems: All systems reviewed & are unremarkable except as noted in Subjective Physical Exam Physical Exam: General: NAD, VS as above, Sitting up in bed Resp: normal respiratory effort, lungs clear to auscultation CV: RRR, no murmur, Abd: normal bowel sounds, soft. No guarding or rebound. No trigger points identified. Patient does report that some areas are tender but that she is not making faces or wincing in pain. Extremities: Moves all extremities, no edema Neuro: A&O x3, Skin: intact, no lesions noted Results & Data Results & Data Vital Signs (Past 12 Hours) Vital Signs Temp Pulse Resp BP Pulse Ox O2 Del Method 11/26/24 14:15 97.9 F 84 16 114/78 98 Room Air 11/26/24 07:29 98.4 F 74 16 114/77 98 Room Air Laboratory Results CBC and chemistry reviewed Diagnostic Findings CT abdomen pelvis reviewed PG Care Time/CCT Total # of Minutes Spent Total Time Spent with Patient: Total time spent is greater than 50% in coordination of care (as documented) at patient's floor/unit and/or counseling patient: Coding Level of Care Code 90327 SUB INP/OBS CARE 3/50MIN Diagnoses Intractable abdominal pain R10.9 Nausea & vomiting R11.2 Vomiting type: unspecified Chronic prescription opiate use Z79.891 Chronic pancreatitis K86.1 Pancreatitis type: unspecified pancreatitis type Leukocytosis D72.829 Tobacco abuse Z72.0 (2) Nausea & vomiting Vomiting type: unspecified Qualified Code(s): R11.2 - Nausea with vomiting, unspecified (4) Chronic pancreatitis Pancreatitis type: unspecified pancreatitis type Qualified Code(s): K86.1 - Other chronic pancreatitis
[2024-11-26] MEDS: ERYTHROMYCIN ETHYLSUCC SUSP 200 MG/5 ML 100 ML BTL PO SCH (18:14)
[2024-11-26] MEDS ORDERED: Nursing to Pharmacy Communication SCH (18:30)
[2024-11-26] MEDS: POTASSIUM CHLORIDE CRTAB 20 MEQ TABCR PO STA (19:35)
--- NOTE | 2024-11-26 21:16 | Electrocardiogram Report ---
Test Reason : Blood Pressure : */* mmHG Vent. Rate : 118 BPM Atrial Rate : 118 BPM P-R Int : 132 ms QRS Dur : 72 ms QT Int : 314 ms P-R-T Axes : 75 64 68 degrees QTcB Int : 440 ms Sinus tachycardia Otherwise normal ECG When compared with ECG of 23-Feb-2024 12:13, No significant change was found Confirmed by Damion Gallardo ([id number]) on 11/26/2024 9:15:51 PM Referred By: REFERRED SELF Confirmed By: Damion Gallardo
[2024-11-27] MEDS: ALBUTEROL HFA 8 GM INHALER INH PRN (03:00)
[2024-11-27] MEDS: BACLOFEN 20 MG TAB PO PRN (03:57)
[2024-11-27] MEDS: KETOROLAC TROMETHAMINE 15 MG/ML VIAL IV PRN (04:38)
[2024-11-27] MEDS: FOLIC ACID 1 MG TAB PO SCH (08:44)
[2024-11-27] MEDS: FLUoxetine HCL 20 MG CAP PO SCH (08:44)
--- NOTE | 2024-11-27 10:06 | Hospitalist Progress Note ---
Date of Service November 27, 2024 Assessment & Plan (1) Intractable abdominal pain: (2) Nausea & vomiting: (3) Hematochezia: (4) Gastritis: (5) Chronic prescription opiate use: (6) Chronic pancreatitis: (7) Leukocytosis: (8) Tobacco abuse: Plan Patient is a 43-year-old female with a past medical history of chronic pancreatitis, gastritis, portal vein thrombosis on Eliquis, tobacco use, medical marijuana use, chronic opioid dependence, history of alcohol abuse. She presented to the ED due to nausea, vomiting, diarrhea, and intractable abdominal pain for approximately [address] A/P showed chronic pancreatitis but no acute changes. She was admitted for IV nausea control, and GI eval. #Intractable abdominal pain/nausea/vomiting/diarrhea Suspect this is multifocal: gastroparesis, cannabis hyperemesis syndrome, chronic pancreatitis, functional abdominal pain and pain seeking behavior GI consulted - continue Protonix and famotidine twice daily. Patient declined Carafate. No plan for inpatient colonoscopy so Eliquis resumed nausea control with IV Zofran, IV Phenergan, and IV Benadryl Dehydration treated with 2 L of IV fluids. Now tolerating p.o. History of gastroparesisdid not tolerate Reglan, will trial erythromycin before meals - has not seemed to worsen any symptoms we will continue. Marijuana cessation encouraged, declined further capsaicin cream. #chronic opioid use disorder Continue home pain regimen with oxycodone 5 Mg every 8 as needed, baclofen, methocarbamol, gabapentin 600mg TID Defer any additional opioid use- this is strictly managed her PCP, hx of polysubstance of abuse reported to RN Will increase oxycodone 5mg q6H for the next day to see if there is any change of her pain - however caution with this shelter. Deferring IV opioids #chronic pancreatitis hx of alcohol abuse; reports sober since 12/2023 - congratulated lipase negative x2, Continue creon #tobacco abuse nicotine patch ordered Thrombocytosis - plt count 535 on admission depression/anxiety - continue fluoxetine 3/1, clonazepam. 1 additional dose given 3/1 of clonazepam given increased anxiety and frustration with overnight nurse h/o portal vein thrombosis in 2018 - hold Eliquis with possible colonoscopy Dispo: continued inpatient stay DVT proh: elqiuis Admission and Anticipated Discharge Date Admission Date: November 25, 2024 Supervising Physician Co-Signing Physician Notes Attending Attestation - Chart reviewed, care plan d/w JOJO Figueroa. I agree w/ the hammonds components of her documentation. Camilo Guajardo MD Subjective Patient seen lying in bed - very frustrated about her overnight nurse, claiming that they were calling her a drug user. She did not sleep well. Her pain is about the same, has not noticed a difference with the erythromycin, but also has not felt like things are worse. She did tolerate her breakfast this morning. Review of Systems Review of Systems: All systems reviewed & are unremarkable except as noted in Subjective Physical Exam Physical Exam: General: NAD, VS as above, Sitting up in bed and then ambulating around the room, very tearful and anxious throughout the visit Resp: normal respiratory effort, lungs clear to auscultation CV: RRR, no murmur, Abd: normal bowel sounds, soft. No guarding or rebound. Patient does report that some areas are tender but that she is not making faces or wincing in pain and continues to talk throughout all of this. Extremities: Moves all extremities, no edema Neuro: A&O x3, Skin: intact, no lesions noted Results & Data Results & Data Vital Signs (Past 12 Hours) Vital Signs Temp Pulse Resp BP Pulse Ox O2 Del Method 11/27/24 09:40 103 H 20 99 Room Air 11/27/24 07:42 98.6 F 80 20 131/84 97 Room Air 11/27/24 03:01 69 20 99 Room Air PG Care Time/CCT Total # of Minutes Spent Total Time Spent with Patient: Total time spent is greater than 50% in coordination of care (as documented) at patient's floor/unit and/or counseling patient: Coding Level of Care Code 61457 SUB INP/OBS CARE 235MIN Diagnoses Intractable abdominal pain R10.9 Nausea & vomiting R11.2 Vomiting type: unspecified Hematochezia K92.1 Acute alcoholic gastritis without hemorrhage K29.50 Chronicity: chronic Gastritis bleeding: without bleeding Gastritis type: unspecified gastritis Chronic prescription opiate use Z79.891 Chronic pancreatitis K86.1 Pancreatitis type: unspecified pancreatitis type Leukocytosis D72.829 Tobacco abuse Z72.0 (2) Nausea & vomiting Vomiting type: unspecified Qualified Code(s): R11.2 - Nausea with vomiting, unspecified (4) Gastritis Chronicity: chronic Gastritis bleeding: without bleeding Gastritis type: unspecified gastritis Qualified Code(s): K29.50 - Unspecified chronic gastritis without bleeding (6) Chronic pancreatitis Pancreatitis type: unspecified pancreatitis type Qualified Code(s): K86.1 - Other chronic pancreatitis
[2024-11-27] MEDS: APIXABAN 5 MG TABLET PO SCH (10:52)
[2024-11-27] MEDS: clonazePAM 0.25 MG OD TAB PO STA (12:19)
[2024-11-27 14:56] VITALS: O2SAT 98
[2024-11-27] MEDS ORDERED: ACETAMINOPHEN 500 MG TAB PO PRN (16:38)
[2024-11-27 20:13] VITALS: TEMP 98.4
[2024-11-27] MEDS: oxyCODONE HCL IR 5 MG TAB (IMMEDIATE RELEASE) PO PRN (20:57)
[2024-11-28 07:18] VITALS: BP 127/83; PULSE 84; RESP 16
--- NOTE | 2024-11-28 09:58 | Discharge Summary ---
Discharge Summary Date of Service November 28, 2024 Principal Dx & Hospital Course #1 = Principal Diagnosis (1) Intractable abdominal pain: (2) Nausea & vomiting: (3) Hematochezia: (4) Gastritis: (5) Chronic prescription opiate use: (6) Chronic pancreatitis: (7) Leukocytosis: (8) Tobacco abuse: Plan #Intractable abdominal pain/nausea/vomiting/diarrhea/ gastroparesis Patient is a 43-year-old female with a past medical history of chronic pancreatitis, gastritis, portal vein thrombosis on Eliquis, tobacco use, medical marijuana use, chronic opioid dependence, history of alcohol abuse. She presented to the ED due to nausea, vomiting, diarrhea, and intractable abdominal pain for approximately [address] A/P showed chronic pancreatitis but no acute changes. She was admitted for IV nausea control, and GI eval. Suspect her pain is multifocal: gastroparesis, cannabis hyperemesis syndrome, chronic pancreatitis, functional abdominal pain. GI was consulted, rec outpatient colonoscopy, continue protonix and pepcid. Initiated on Erythromycin for gastroparesis. Pain improved with IV nausea control, IVFs, and erythromycin. Recommend stopping marijuana use. Erythromycin prescribed. GI follow up on discharge. Referred to [facility] per pt request. #chronic opioid use disorder Continue home pain regimen with oxycodone 5 Mg every 8 as needed, baclofen, methocarbamol, gabapentin 600mg TID Defer any additional opioid use- this is strictly managed her PCP - did give one extra dose of oxycodone while inpatient, but this was not continued on discharge. #chronic pancreatitis -hx of alcohol abuse; reports sober since 12/2023. lipase negative x2, Continue creon #tobacco abuse - tolerated nicotine patch well during admission, rec cessation Thrombocytosis - plt count 535 on admission depression/anxiety - continue fluoxetine 11/27, clonazepam. h/o portal vein thrombosis in 2018 - Eliquis resumed Dispo: discharge to home today, PCP follow up and GI referral Notes For Next Care Provider Medication Changes From Visit erythromycin before meals Admission HPI Per Admitting Provider Patient is a 43-year-old female with a past medical history of chronic pancreatitis, gastritis, portal vein thrombosis on Eliquis, tobacco use, medical marijuana use, chronic opioid dependence, history of alcohol abuse. She presented to the ED due to nausea, vomiting, diarrhea, and intractable abdominal pain for approximately 1 month. For the past day she has been unable to keep down any p.o. intake. She also endorses hematochezia. She has been admitted for IV nausea control, and GI eval and may consider colonoscopy. Patient seen at bedside with her mother present. She stated 3 to 4 weeks ago she developed this nausea, vomiting, and diarrhea which did stop approximately a week ago but returned 2 days ago and was severe. She stated her abdominal pain is 9/10. The pain is in her anterior abdomen and through to her back, this feels more painful than her typical chronic pancreatitis pain. She has been unable to keep down any p.o. intake today including her home medications. She also endorses blood in stool stating that it is streaky and multiple trips with each bowel movement. She denies any diffuse blood filling the toilet. She thinks that it could be hemorrhoids. She was supposed to have a colonoscopy a few weeks ago however did not go because of the nausea and vomiting. She stated she has had multiple EGDs in the past that did show a history of ulcers. Her most recent may have been in May. She follows with GI at [facility]. She stated she currently feels feverish and is wanting, however feels she needs a nicotine patch. She also endorses a cough with some sputum production. Patient denies rhinorrhea, sore throat. She stated that she typically smokes half a pack of cigarettes per day. She also smokes medical marijuana daily and last smoked around 11 AM this morning. She no longer drinks alcohol. She received 10 Mg oxycodone p.o. in ED, requesting more pain medication on admission. She stated her nausea has improved with ED course however still present. She is due for her evening medications including Eliquis. She wishes to be full code. Discharge Exam General: NAD, VS as above, sitting in bed, much more calm today Resp: normal respiratory effort, lungs clear to auscultation CV: RRR, no murmur, Abd: normal bowel sounds, soft. No guarding or rebound. Extremities: Moves all extremities, Neuro: A&O x3, Skin: intact, no lesions noted Discharge Plan Discharge Items Patient Disposition: Home - Self-Care Reason For Visit: INTRACTABLE ABD PAIN,VOMITING,HEMOTOCHEZIA Discharge Diagnosis: chronic pancreatitis nausea and vomiting resolved Activity: Resume your previous activity Driving/Machine Use: No limitations Non-emergency contact: Primary Care Provider Call non-emergency contact if: you have any medication questions, your symptoms worsen, your pain is worsening, your pain is concerning for you and your temperature is above 101 Follow-up/Referrals: Radha Alicea MD [Primary Care Provider] - (follow up within one week ) Belén Gustafson CRNP [Nurse Practitioner] - (new pt - chronic abd pain, needs colo. gastroparesis, chronic pancreatitis) Diet: Regular Addtl Attending Provider Instructions: Ms. Pete, You were hospitalized after having worsening of your chronic abdominal pain. Fortunately, you did not have acute pancreatitis, and CT of your abdomen did not have any acute findings. Your pain improved after IV fluids, nausea medication, starting erythromycin and improving your anxiety. Your GI pain is complex and multifactoral including but not limited to - gastrop aresis, chronic pancreatitis, marijuana use and anxiety. Recommendations: * Continue your home medications and close follow up with your PCP to continue to wean off some of them * Stop use marijuana * Continue erythromycin before meals to help with your gastroparesis * Phenergan sent to your pharmacy * You were started on IV pepcid (famotidine) during your hospital stay. If you felt that this was helpful for you (this can help with acid reflux) it can be purchased over the counter. I have placed a referral to [facility] - they should be contacting you. If you do not hear from them by Friday 12/01 please call the number above. Activity: You can do normal everyday activities as your body allows. Take rest breaks if you feel tired. Do not overexert. Stop activity if you have pain, shortness of breath or feel dizzy. Follow-up appointments: Make an appointment with your primary care physician within one week of discharge. A copy of this summary will be sent to them. Every time you see your primary care physician, or any other doctor, bring your medication list, and a list of questions. CONTACT YOUR PRIMARY CARE PROVIDER if you experience any of the following: Shortness of breath or difficulty breathing Fevers or chills Feeling tired with normal activity or experiencing dizziness or fainting Difficulty following your treatment plan, or difficulty taking medications CALL 911 OR GO TO THE EMERGENCY DEPARTMENT if you experience any of the following: Severe abdominal pain or nausea/vomiting Severe chest pain, or chest pain that radiates (moves) to your jaw or arm Sudden, severe shortness of breath or difficulty breathing Thank you for allowing us to participate in your care. Pending Studies at Discharge: No Stand-Alone Forms: [facility], Work/School Release, Smoking Cessation Medications and DC Order Prescriptions: New erythromycin ethylsuccinate [E.E.S. Granules] 200 mg/5 mL Suspension For Reconstitution 200 mg PO AC 30 Days Qty: 450 0RF Continued Creon 36,000-114,000- 180,000 unit capsule,delayed release(DR/EC) 3 cap PO TID 90 Days Qty: 810 3RF Rx Instructions: With meals mecobalamin (vitamin B12) [B12 Active] 1,000 mcg tablet,chewable 1,000 mcg PO QAM Qty: 100 0RF Eliquis 5 mg tablet 5 mg PO BID Qty: 90 3RF gabapentin 600 mg tablet 600 mg PO TID 30 Days Qty: 90 3RF ondansetron 4 mg tablet,disintegrating 4 mg PO Q6H PRN (Reason: Nausea And Vomiting) 30 Days Qty: 60 2RF Rx Instructions: TAKE 1 TABLET BY MOUTH EVERY 6 HOURS NEEDED FOR NAUSEA folic acid 1 mg tablet 1 mg PO DAILY Qty: 90 3RF baclofen 20 mg tablet 20 mg PO TID PRN (Reason: neck pain/muscle spasm) Qty: 270 3RF clonazepam 0.5 mg tablet 0.25 mg PO BID PRN (Reason: anxiety) 28 Days Qty: 22 0RF Rx Instructions: 4wk supply albuterol sulfate [Ventolin HFA] 90 mcg/actuation HFA aerosol inhaler 2 puff inhalation Q4H PRN (Reason: cough/wheeze/shortness of breath) Qty: 1 0RF methocarbamol 750 mg tablet 750 mg PO TID PRN (Reason: pain) Qty: 90 1RF oxycodone 5 mg tablet 5 mg PO Q8H PRN (Reason: pain) 14 Days Qty: 42 0RF (DME) TENS unit and electrodes Combo Pack See Rx Instructions .Route Qty: 1 0RF Rx Instructions: As directed pantoprazole 40 mg tablet,delayed release (DR/EC) 40 mg PO BID Qty: 180 3RF fluoxetine 40 mg capsule 40 mg PO DAILY Qty: 90 3RF sumatriptan succinate 100 mg tablet 100 mg PO DAILY PRN (Reason: migraine/headache) Qty: 20 3RF Rx Instructions: TAKE 1 TABLET BY MOUTH NEEDED FOR MIGRAINE/HEADACHE. MAY REPEAT 1 DOSE AFTER 1-2 HOURS Mirena 21 mcg/24hr (up to 8 yrs) 52 mg intrauterine device intrauterine clindamycin phosphate 1 % gel 1 applic topical DAILY PRN (Reason: Acne) Rx Instructions: APPLY TOPICALLY DAILY FOR ACNE cholecalciferol (vitamin D3) 250 mcg (10,000 unit) capsule 250 mcg PO QAM clotrimazole-betamethasone 1-0.05 % Cream 1 applic EXT BID Qty: 30 0RF Rx Instructions: apply in thin amounts to rash on chest wall; stop after 5-7 days. promethazine 25 mg tablet 25 mg PO Q6H PRN (Reason: nausea and vomiting) Qty: 12 0RF Discontinued medical marijuana 1 puff inhalation UD PRN (Reason: Sleep/stomach issues/anxiety) Rx Instructions: VAPE Discharge Orders: Discharge Order (Routine); Ordered 11/28/24 Ordered By: Anai Herrera/Other Patient Handouts: Gastroparesis Admission Data Admit Date/Time: 11/27/24 10:03 Attending Provider: Camilo Guajardo Admit Provider: Arnoldo Gore Primary Care Provider: Radha Alicea Other Providers: Arnoldo Gore; Tashia Bautista Hospital Stay Data Consultations 11/25/24 21:40 ED Decision to Admit Stat 11/26/24 00:15 Consult Gastroenterology Routine Diagnostic Imagining Performed Abdomen/Pelvis CT 11/25/24 18:50 EXAM: CT Angiography Abdomen and Pelvis With Intravenous Contrast INDICATION: Worsening nausea, vomiting and pain. TECHNIQUE: Axial computed tomographic angiography images of the abdomen and pelvis with intravenous contrast. Sagittal and coronal reformatted images were created and reviewed. This CT exam was performed using one or more of the following dose reduction techniques: automated exposure control, adjustment of the mA and/or kV according to patient size, and/or use of iterative reconstruction technique. MIP reconstructed images were created and reviewed. CONTRAST: 94ml of Optiray 320 was administered intravenously. COMPARISON: 08/18/2023 FINDINGS: VASCULATURE: Aorta: Atherosclerotic calcification of the aorta and branches. No aneurysm. Celiac trunk and mesenteric arteries: No acute change noted. No occlusion or significant stenosis. Renal arteries: No acute change noted. No occlusion or significant stenosis. Iliac arteries: No acute change noted. No occlusion or significant stenosis. Lung bases: No abnormality noted. No mass. No consolidation. ABDOMEN: Liver: Normal size and contour. Hypodense typical of steatosis. No mass or ductal dilation. Gallbladder and bile ducts: Cholecystectomy. No ductal dilation or stone noted. Pancreas: Stable chronic proximal pancreatic calcifications. The pancreas otherwise appears normal. No ductal dilation. Spleen: No abnormality noted. No splenomegaly. Adrenals: No abnormality noted. No mass. Kidneys and ureters: 3 mm nonobstructing left lower pole kidney stone. Stomach and bowel: No abnormality noted. No obstruction. No mucosal thickening. PELVIS: Appendix: Well seen and appears normal. Bladder: No abnormality noted. No mass. Reproductive: No significant abnormality noted. ABDOMEN and PELVIS: Intraperitoneal space: No abnormality noted. No significant fluid collection. No free air. Bones/joints: No acute or atypical chronic changes. Soft tissues: No abnormality noted. Lymph nodes: No abnormality noted. No enlarged lymph nodes. Tubes, lines and devices: Intrauterine contraceptive device in good position. IMPRESSION: 1. No acute abnormality. 2. Proximal pancreatic calcifications consistent with chronic pancreatitis. No acute pancreatitis. ACT 112: Negative or not required by law. Electronically signed by Kamala Webster 11-25-2024 7:34 PM Pending Results Patient Have Any Pending Studies at Discharge: No Discharge Instructions Given to Patient (Per Discharging Provider) Ms. Pete, You were hospitalized after having worsening of your chronic abdominal pain. Fortunately, you did not have acute pancreatitis, and CT of your abdomen did not have any acute findings. Your pain improved after IV fluids, nausea medication, starting erythromycin and improving your anxiety. Your GI pain is complex and multifactoral including but not limited to - gastroparesis, chronic pancreatitis, marijuana use and anxiety. Recommendations: * Continue your home medications and close follow up with your PCP to continue to wean off some of them * Stop use marijuana * Continue erythromycin before meals to help with your gastroparesis * Phenergan sent to your pharmacy * You were started on IV pepcid (famotidine) during your hospital stay. If you felt that this was helpful for you (this can help with acid reflux) it can be purchased over the counter. I have placed a referral to [facility] - they should be contacting you. If you do not hear from them by Friday 12/01 please call the number above. Activity: You can do normal everyday activities as your body allows. Take rest breaks if you feel tired. Do not overexert. Stop activity if you have pain, shortness of breath or feel dizzy. Follow-up appointments: Make an appointment with your primary care physician within one week of discharge. A copy of this summary will be sent to them. Every time you see your primary care physician, or any other doctor, bring your medication list, and a list of questions. CONTACT YOUR PRIMARY CARE PROVIDER if you experience any of the following: Shortness of breath or difficulty breathing Fevers or chills Feeling tired with normal activity or experiencing dizziness or fainting Difficulty following your treatment plan, or difficulty taking medications CALL 911 OR GO TO THE EMERGENCY DEPARTMENT if you experience any of the following: Severe abdominal pain or nausea/vomiting Severe chest pain, or chest pain that radiates (moves) to your jaw or arm Sudden, severe shortness of breath or difficulty breathing Thank you for allowing us to participate in your care. Total Time Total Time Spent Total Time Spent (In Minutes): Time spent day of discharge 36 minutes including direct patient care, medication reconciliation, documentation, review of labs and images, and coordination of care. Coding Level of Care Code 99540 INP/OBS DISCH >30 MIN Diagnoses Intractable abdominal pain R10.9 Nausea & vomiting R11.2 Vomiting type: unspecified Hematochezia K92.1 Acute alcoholic gastritis without hemorrhage K29.50 Chronicity: chronic Gastritis bleeding: without bleeding Gastritis type: unspecified gastritis Chronic prescription opiate use Z79.891 Chronic pancreatitis K86.1 Pancreatitis type: unspecified pancreatitis type Leukocytosis D72.829 Tobacco abuse Z72.0
== END 2024-11-28 12:30 | disposition home or self-care (01) | DRG 438 ==
LOC: SUATTDRO → 3E 17:08 → ED 17:08 → SUATTDRO 22:26 → 3E 23:46

== ENCOUNTER 2024-12-22 11:51 | Observation (INO) ==
--- NOTE | 2024-12-22 12:36 | Emergency Department Note ---
History of Present Illness General Chief complaint: Back Injury/Pain Stated complaint: STOMACH PAIN, BREATHING HURTS, BACK PAIN Time Seen by Provider: 12/22/24 12:05 History of Present Illness Maximum Pain Intensity: 8 This is a 43-year-old female that presents to the emergency department via private vehicle with complaints of "diarrhea, vomiting, right flank pain, abdominal pain, chest pain". The patient notes similar symptoms to when she was admitted here late October. She notes that she felt better for a few days and then the symptoms have returned. She continues now with diarrhea, vomiting, intermittent abdominal pain, intermittent chest pain and right flank/right upper back pain. The patient does note she is able to drink fluids and eat some foods but does continue to intermittently vomit. No blood in the stool. No blood in the vomit. No history of ulcerative colitis or Crohn's. She does note history of gastroparesis. Home Medications Medication Instructions Recorded Confirmed Type clindamycin phosphate 1 % topical 1 applic topical DAILY PRN Acne 02/17/23 12/22/24 History gel TENS unit and electrodes combo pack #1 ea 07/10/23 12/02/24 Rx cholecalciferol (vitamin D3) 250 250 mcg PO QAM 08/18/23 12/22/24 History mcg (10,000 unit) capsule [id number] 3 cap PO TID Abdominal Discomfort 10/23/23 12/22/24 Rx 36,000-114,000-180,000 unit 90 days #810 caps capsule,delay rel (Creon) mecobalamin (vitamin B12) 1,000 1,000 mcg PO QAM #100 tabs 01/20/24 12/22/24 Rx mcg chewable tablet (B12 Active) clotrimazole-betamethasone 1 1 applic EXT BID #30 grams 02/23/24 12/22/24 Rx %-0.05 % topical cream apixaban 5 mg tablet (Eliquis) 5 mg PO BID #90 tabs 06/22/24 12/22/24 Rx sumatriptan succinate 100 mg tablet 100 mg PO DAILY PRN 07/19/24 12/22/24 Rx migraine/headache #20 tabs gabapentin 600 mg tablet 600 mg PO TID 30 days #90 tabs 07/30/24 12/22/24 Rx levonorgestrel 21 mcg/24 hr (up to 1 device intrauterine DIRECTED 08/16/24 12/22/24 History 8 years) 52 mg intrauterine device (Mirena) folic acid 1 mg tablet 1 mg PO DAILY #90 tabs 09/27/24 12/22/24 Rx pantoprazole 40 mg tablet,delayed 40 mg PO BID #180 tabs 10/11/24 12/22/24 Rx release baclofen 20 mg tablet 20 mg PO TID PRN neck pain/muscle 10/20/24 12/22/24 Rx spasm #270 tabs albuterol sulfate 90 mcg/actuation 2 puff inhalation Q4H PRN 11/18/24 12/22/24 Rx aerosol inhaler (Ventolin HFA) cough/wheeze/shortness of breath #1 inhaler methocarbamol 750 mg tablet 750 mg PO TID PRN pain #90 tabs 11/24/24 12/22/24 Rx erythromycin ethylsuccinate 200 200 mg (5 mL) PO AC 30 days #450 mL 11/28/24 12/22/24 Rx mg/5 mL oral powder for suspension (E.E.S. Granules) promethazine 25 mg tablet 25 mg PO Q6H PRN nausea and 11/28/24 12/22/24 Rx vomiting #12 tabs clonazepam 0.5 mg tablet 0.25 mg (1/2 x 0.5 mg) PO BID PRN 12/10/24 12/22/24 Rx anxiety 28 days #22 tabs ondansetron 4 mg disintegrating 4 mg PO Q6H PRN Nausea And 12/21/24 12/22/24 Rx tablet Vomiting 30 days #60 tabs oxycodone 5 mg tablet 5 mg PO Q8H PRN pain 2 weeks #42 12/21/24 12/22/24 Rx tabs Allergies Allergy/AdvReac Type Severity Reaction Status Date / Time buspirone [From BuSpar] Allergy Severe Unconscious, Verified 12/02/24 14:42 seizures quetiapine [From Seroquel] Allergy Severe Unconscious, Verified 12/02/24 14:42 seizures citalopram [From Celexa] AdvReac Intermediate Vomiting Verified 12/02/24 14:42 morphine AdvReac Intermediate Vomiting Verified 12/02/24 14:42 metoclopramide AdvReac Unknown "Twitchy" Verified 12/02/24 14:42 vilazodone [From Viibryd] AdvReac Vomiting Verified 12/02/24 14:42 Past Med/Surg History Problem List (Updated 12/22/24 @ 16:08 by Nabeel Au PA-C) Hypocalcemia (Acute) Hypomagnesemia (Acute) Hypokalemia (Acute) Pancolitis (Acute) Tobacco abuse Leukocytosis Gastritis Chronic pancreatitis (Acute) Per records Hematochezia Intractable abdominal pain Nausea & vomiting (Acute) History of gastritis History of alcohol abuse Restless leg syndrome Medical marijuana use Chronic prescription opiate use Chronic prescription benzodiazepine use Chronic abdominal pain (Acute) Chronic pain syndrome Right ankle sprain Tendinitis of both rotator cuffs Gastroparesis Intertrigo Low serum cortisol level Other cervical disc degeneration at C6-C7 level Degeneration of thoracolumbar intervertebral disc T12-L1 Other cervical disc degeneration at C5-C6 level Elevated hemidiaphragm Generalized anxiety disorder with panic attacks Portal vein thrombosis (~2019) Dental decay Hiatal hernia (Chronic) Medical History Pancreatic pseudocyst Pancolitis Adjustment disorder with depressed mood Per records History of seizure due to alcohol withdrawal 2020, "from either alcohol or clonazepam" PTSD (post-traumatic stress disorder) Hx of migraines Iron deficiency anemia Insomnia Hiatal hernia Nocturnal hypoxia Noted during previous hospitalizations per patient, plan for future sleep study (not scheduled until 07/2024 per patient) Degeneration of thoracolumbar intervertebral disc History of colitis Cervical radiculopathy Cervical spondylosis Anxiety and depression Tendinitis of right rotator cuff Ongoing Acne Cream every 4-6 months GERD (gastroesophageal reflux disease) Panic attacks hx Peptic ulcer disease hx Surgical History H/O oral surgery History of breast biopsy History of esophagogastroduodenoscopy (EGD) 2017 History of cholecystectomy History of tooth extraction History of lumpectomy of right breast "benign" Family History Father Family history of diabetes mellitus Myocardial infarction Stroke Hypertension Grandfather (Maternal) Family history of diabetes mellitus Grandmother (Maternal) Family history of diabetes mellitus Hypertension Cancer Mother Hypothyroidism Grandfather (Paternal) Cancer Heart problem Grandmother (Paternal) Hypertension Denies family history of Ovarian cancer Prostate cancer Breast cancer Colorectal cancer Social History Smoking Status: Current every day smoker Tobacco Type: Cigarettes Age Started Using Tobacco: 15; packs per day: 0.5; Cigarettes Per Day: 12; Second Hand Exposure: No; Do You Dip or Chew Tobacco: No; Hx Alcohol Use: No Hx Substance Use: Yes Last Used Substance: Hours (ago) Substance Use Type Other:: Smokes Kurt Preferred Language: Chadian Communication Ability: Effective Visual Impairment: No Limitations Hearing Ability: Normal Production Administrative Assistant Required: No Beliefs That Will Affect Care: None marital status: Single Current Living Situation: Parent Current Living Situation Comment: lives w/ mother and dog current occupational status: employed current occupation: at [employer] How many Children do You have: 0 Feels Safe at Home: Yes Childhood Exposure to Second-Hand Smoke: No Diet: regular Diet Comment: regular Dental Care, Regularly: Yes Physical Activity Frequency: Does not Exercise Seatbelt Use: always Sunscreen Use: Yes Do you think of yourself as: straight/heterosexual Assistive Devices: None Review of Systems A total of 10 systems reviewed and were otherwise negative Physical Exam Vital Signs Vital Signs - 24 hr 12/22/24 11:55 12/22/24 12:48 12/22/24 12:52 Temperature 36.2 C L Temperature Source Skin Pulse Rate 97 H 102 H 96 H Pulse Rate [Apical] Respiratory Rate 18 20 Respiratory Effort / Characteristics Non-Labored Spontaneous Respiratory Depth Normal Respiratory Pattern Regular Blood Pressure 117/67 Blood Pressure [Left Arm] Blood Pressure Mean 83 Blood Pressure Mean [Left Arm] Pulse Oximetry 95 98 Oxygen Delivery Method Room Air Room Air Sepsis Recent Fever Within 48 Hours No Sepsis New/Unexplained Change in Mental Status N/A Sepsis Action Taken by Nursing No Action Required 12/22/24 12:55 12/22/24 14:00 Temperature Temperature Source Pulse Rate Pulse Rate [Apical] 89 83 Respiratory Rate 17 17 Respiratory Effort / Characteristics Respiratory Depth Respiratory Pattern Blood Pressure Blood Pressure [Left Arm] 113/88 117/81 Blood Pressure Mean Blood Pressure Mean [Left Arm] 96 93 Pulse Oximetry 96 97 Oxygen Delivery Method Room Air Room Air Sepsis Recent Fever Within 48 Hours Sepsis New/Unexplained Change in Mental Status Sepsis Action Taken by Nursing VITAL SIGNS - Vital signs and nursing notes were reviewed. Stable and afebrile. GENERAL -43-year-old female appearing her stated age who is in no acute distress. Communicates well with provider and answers questions appropriately. SKIN - Without rashes. No meningeal or petechial rash. HEAD - NC/AT. EYES - PERRL with EOMI bilaterally. Sclera anicteric. EARS - No deformities of external structures noted on gross examination bilaterally. NOSE - Midline and without cyanosis. No epistaxis or purulent drainage noted. MOUTH/OROPHARYNX - Without perioral cyanosis. NECK - Neck with FROM. No nuchal rigidity. LUNGS - Chest wall symmetric without accessory muscle use, intercostals retractions, or central cyanosis. Normal vesicular breath sounds CTA B/L. No wheezes, rales, or rhonchi appreciated. CARDIAC - RRR ABDOMEN - Abdominal contour normal without pulsations or visible masses. BS normoactive all four quadrants. There is generalized abdominal tenderness to palpation. No guarding. No rigidity. EXTREMITIES - No clubbing or peripheral cyanosis. +5/5 strength noted in UE/LE bilaterally. NEUROLOGIC - Cranial nerves II through XII grossly intact. PSYCH -alert, oriented and pleasant on examination Course Administered Medications Discontinued Medications Hydromorphone HCl (Hydromorphone Inj 0.5 Mg/0.5 Ml Syr) 0.5 mg IV NOW STA Stop: 12/22/24 12:39 Last Admin: 12/22/24 12:51 Dose: 0.5 mg Documented By: ARLET Hydromorphone HCl (Hydromorphone Inj 0.5 Mg/0.5 Ml Syr) 0.25 mg IV NOW STA Stop: 12/22/24 14:00 Last Admin: 12/22/24 14:13 Dose: 0.25 mg Documented By: ARLET Sodium Chloride (Nss) 1,000 mls @ 500 mls/hr IV .Q2H ONE Stop: 12/22/24 15:58 Last Admin: 12/22/24 14:13 Dose: 500 mls/hr Documented By: ARLET Magnesium Sulfate/Dextrose (Magnesium Sulfate / D5w) 1 gm in 100 mls @ 100 mls/hr IV NOW STA Stop: 12/22/24 15:38 Last Admin: 12/22/24 15:15 Dose: 100 mls/hr Documented By: ARLET Potassium Chloride (K Jose / Wtr) 10 meq in 100 mls @ 100 mls/hr IV ONE ONE Stop: 12/22/24 15:38 Last Admin: 12/22/24 15:06 Dose: 100 mls/hr Documented By: ARLET Thiamine HCl 100 mg/ Syringe 10 mls @ 2 mls/min IV NOW STA Stop: 12/22/24 15:06 Last Admin: 12/22/24 15:41 Dose: 2 mls/min Documented By: THERESE Folic Acid 1 mg/ Syringe 10 mls @ 5 mls/min IV NOW STA Stop: 12/22/24 15:03 Last Admin: 12/22/24 15:41 Dose: 5 mls/min Documented By: THERESE Ioversol (Optiray 320 125ml) 117 ml IV ONCE ONE Stop: 12/22/24 14:52 Last Admin: 12/22/24 14:52 Dose: 117 ml Documented By: HATTIE Ondansetron HCl (Ondansetron Inj 2 Mg/Ml 2 Ml Vial) 4 mg IV NOW STA Stop: 12/22/24 12:39 Last Admin: 12/22/24 12:50 Dose: 4 mg Documented By: ARLET Medical Decision Making Laboratory Data 12/22/24 13:30 12/22/24 13:30 Lab Results 12/22/24 12/22/24 Range/Units 12:40 13:30 WBC 8.82 (4.8-10.8) K/ul RBC 4.13 L (4.20-5.40) M/uL Hgb 12.4 (12.0-16.0) g/dl Hct 37.4 (37.0-47.0) % MCV 90.6 (80.0-100.0) fL MCH 30.0 (25.0-34.0) pg MCHC 33.2 (32.0-36.0) g/dL RDW Std Deviation 48.2 H (36.4-46.3) fL RDW Coeff of Jessica 14.8 H (11.5-14.5) % Plt Count 310 (130-400) K/uL MPV 10.1 (9.4-12.4) fL Immature Gran % (Auto) 0.2 % Neut % (Auto) 53.1 % Lymph % (Auto) 37.4 % [place] % (Auto) 7.9 % Eos % (Auto) 0.9 % Baso % (Auto) 0.5 % Neut # (Auto) 4.68 (1.40-6.50) K/uL Lymph # (Auto) 3.30 (1.20-3.40) K/uL [place] # (Auto) 0.70 H (0.11-0.59) K/uL Eos # (Auto) 0.08 (0.00-0.50) K/uL Baso # (Auto) 0.04 (0.00-0.20) K/uL Immature Gran # (Auto) 0.02 (0.01-0.20) K/uL PT 11.6 (9.0-12.0) Seconds INR 1.1 (0.9-1.1) APTT 30 (21-31) Seconds PTT Ratio 1.1 Sodium 135 L (136-145) mmol/L Potassium 2.8 L (3.5-5.1) mmol/L Chloride 98 (98-107) mmol/L Carbon Dioxide 29 (21-32) mmol/L Anion Gap 8 (3-11) BUN 9 (6-23) mg/dl Creatinine 0.67 (0.6-1.2) mg/dl Est Cr Clr Drug Dosing 84.2 ml/min eGFR 110.46 BUN/Creatinine Ratio 13.4 (10-20) Glucose 118 H (70-99(Fasting)) mg/dl Calcium 8.2 L (8.6-10.3) mg/dl Magnesium 1.6 L (1.7-2.4) mg/dl Total Bilirubin 0.6 (0.2-1.0) mg/dl AST 21 (13-39) U/L ALT 16 (7-52) U/L Alkaline Phosphatase 135 H (34-104) U/L Troponin I High Sens < 2.3 (0-14) pg/ml Total Protein 6.2 (6.0-8.3) gm/dl Albumin 3.9 (3.4-5.0) gm/dl Globulin 2.3 L (2.5-4.0) gm/dl Albumin/Globulin Ratio 1.7 (0.9-2) Lipase 45 (11-82) U/L TSH 2.600 (0.300-4.500) uIu/ml HCG, Qual Negative (Negative) Urine Color Dark Yellow Urine Appearance Clear (Clear) Urine pH 6.0 (4.5-7.5) Ur Specific [place] 1.025 (1.000-1.030) Urine Protein Trace H (Negative) Urine Glucose (UA) Negative (Negative) Urine Ketones Trace H (Negative) Urine Blood Trace H (Negative) Urine Nitrite Negative (Negative) Urine Bilirubin 1+ H (Negative) Urine Urobilinogen Negative (Negative) Ur Leukocyte Esterase Trace H (Negative) Urine WBC (Auto) 6-10 H (0-5) /hpf Urine RBC (Auto) 6-10 H (0-2) /hpf U Hyaline Cast (Auto) 3-5 H (0-2) /lpf U Epithel Cells (Auto) 6-10 H (0-2) /hpf Urine Bacteria (Auto) 3+ H (None Seen) Imaging Data Radiologist's Impression: Abdomen/Pelvis CT 12/22/24 12:[address] WITH IV CONTRAST CT DOSE: 807.87 mGy.cm HISTORY: Acute right chest and upper abdominal pain Upper abd pain, chest pain, R back/flank pain TECHNIQUE: Multiaxial CT images of the abdomen and pelvis were performed following the IV administration of 117 cc of Optiray, A dose lowering technique was utilized adhering to the principles of ALARA. COMPARISON STUDY: CT chest of same day, CT abdomen and pelvis 11/25/2024 FINDINGS: CTA chest dictated separately. Left hemidiaphragm elevation with bibasilar atelectasis. There is no pneumatosis or pneumoperitoneum. Unremarkable spleen, and right adrenal gland. Stable 8 mm hypodense left adrenal gland lesion suggestive of a probable adenoma. Hepatic steatosis with mild hepatomegaly. Cholecystectomy. There is patency of the hepatic and portal veins. Unchanged uncinate process calcifications of the pancreas suggestive of chronic pancreatitis. Equivocal stranding adjacent to the uncinate process is similar to prior. Nonobstructing calculus inferior pole left kidney measure up to 4 mm. 3 mm nonobstructing right renal calculus. Urinary bladder wall thickening with partial distention. IUD within the mid uterus. Atherosclerosis of the aorta. No lymphadenopathy. Wall thickening with partial distention of the stomach. There is diffuse wall thickening throughout the large bowel and rectum is partially fluid-filled. Noninflamed appendix. Normal small bowel. No acute fracture. IMPRESSION: 1. Findings compatible with a nonspecific pancolitis, likely infectious or inflammatory. 2. No bowel obstruction or pneumoperitoneum. 3. Evidence of chronic pancreatitis. 4. Nonobstructing bilateral nephrolithiasis. ACT 112: Negative or not required by law. The above report was generated using voice recognition software. It may contain grammatical, syntax or spelling errors. Electronically signed by: Zachary Amezcua M.D. 12/22/2024 3:26 PM Chest CTA 12/22/24 12:39 CT angio chest PE protocol CT DOSE: 808 HISTORY: Upper abd pain, chest pain, R back/flank pain. TECHNIQUE: Multiple CTA images of the chest were obtained after the intravenous administration of 120 ml Optiray. Coronal and sagittal MIPS were obtained from the axial data set and were submitted for review. All measurements were obtained according to NASCET criteria. A dose lowering technique was utilized adhering to the principles of ALARA. COMPARISON STUDY: 07/03/2023 FINDINGS: There is minimally increased groundglass and reticular opacity inferiorly at the left lower lung lobe, scarring/atelectasis or mild pneumonitis. No other pulmonary consolidation, pleural effusion, or pneumothorax. No enlarged adenopathy. No pericardial effusion. No thoracic aortic dissection or aneurysm. No pulmonary embolism. No acute osseous findings seen. IMPRESSION: 1. No pulmonary embolism seen. 2. Otherwise as described. ACT 112: Negative or not required by law. The above report was generated using voice recognition software. It may contain grammatical, syntax or spelling errors. Electronically signed by: Kevin Knox M.D. 12/22/2024 3:19 PM [facility] Narrative Patient was seen and evaluated as above in room B11. Review was performed of triage nursing notes and vital signs. I did review pertinent previous visits and patient history. After obtaining a thorough history and physical examination the above work up was performed. Patient presents to us today with the above-stated complaint. She is tired appearing on examination. No active vomiting. Vital signs stable. Options of care were discussed with the patient. IV access was established. Labs were drawn. An EKG was performed and per my interpretation reveals normal sinus rhythm at a rate of 97 bpm. QTc 431. QRS 84. No ST elevation on this rhythm tracing. Labs reveal no leukocytosis or concerning anemia. Coags normal. Mild hyponatremia 135. Hypokalemia 2.8. Hyperglycemia 118. Hypocalcemia 8.2 with hypomagnesemia 1.6. Troponin negative. Lipase normal. TSH was euthyroid state. hCG negative. Urinalysis reveals what is likely a contaminated sample however culture is pending. CTA of the chest as well as IV contrasted abdomen/pelvis was ordered to further assess the patient's symptoms. It was felt that the benefit outweighed risk. CT imaging as above. Pancolitis noted. Stool study ordered however patient has not given a sample yet. Patient while here was medicated with IV fluids, IV analgesia, IV antiemetics, IV electrolyte repletion. I do believe the patient would benefit from hospitalization for further evaluation and management. Case discussed with the hospitalist service. Please refer to further documentation regarding her stay. GCS: 15 In the evaluation and treatment of this patient the following differential diagnoses were entertained: Bowel obstruction, appendicitis, cholecystitis, pancreatitis, dissection, PE, MA, colitis, among others. Impression & Plan Pancolitis, Chronic pancreatitis, Nausea & vomiting, Hypokalemia, Hypomagnesemia, Hypocalcemia Discharge Plan Visit Data Chief Complaint: Back Injury/Pain Stated Complaint: STOMACH PAIN, BREATHING HURTS, BACK PAIN ED Provider: Damon Tolliver ED Midlevel Provider: Nabeel Au Discharge Problem: Pancolitis, Chronic pancreatitis, Nausea & vomiting, Hypokalemia, Hypomagnesemia, Hypocalcemia Patient Disposition: Admitted As Inpatient Condition: Good Forms Stand Alone Forms: [facility] [employer] Prescriptions Prescriptions: No Action Creon 36,000-114,000- 180,000 unit capsule,delayed release(DR/EC) 3 cap PO TID 90 Days Qty: 810 3RF Rx Instructions: With meals mecobalamin (vitamin B12) [B12 Active] 1,000 mcg tablet,chewable 1,000 mcg PO QAM Qty: 100 0RF Eliquis 5 mg tablet 5 mg PO BID Qty: 90 3RF gabapentin 600 mg tablet 600 mg PO TID 30 Days Qty: 90 3RF folic acid 1 mg tablet 1 mg PO DAILY Qty: 90 3RF baclofen 20 mg tablet 20 mg PO TID PRN (Reason: neck pain/muscle spasm) Qty: 270 3RF albuterol sulfate [Ventolin HFA] 90 mcg/actuation HFA aerosol inhaler 2 puff inhalation Q4H PRN (Reason: cough/wheeze/shortness of breath) Qty: 1 0RF methocarbamol 750 mg tablet 750 mg PO TID PRN (Reason: pain) Qty: 90 1RF clonazepam 0.5 mg tablet 0.25 mg PO BID PRN (Reason: anxiety) 28 Days Qty: 22 0RF Rx Instructions: 4wk supply ondansetron 4 mg tablet,disintegrating 4 mg PO Q6H PRN (Reason: Nausea And Vomiting) 30 Days Qty: 60 2RF Rx Instructions: TAKE 1 TABLET BY MOUTH EVERY 6 HOURS NEEDED FOR NAUSEA oxycodone 5 mg tablet 5 mg PO Q8H PRN (Reason: pain) 14 Days Qty: 42 0RF (DME) TENS unit and electrodes Combo Pack See Rx Instructions .Route Qty: 1 0RF Rx Instructions: As directed pantoprazole 40 mg tablet,delayed release (DR/EC) 40 mg PO BID Qty: 180 3RF sumatriptan succinate 100 mg tablet 100 mg PO DAILY PRN (Reason: migraine/headache) Qty: 20 3RF Rx Instructions: TAKE 1 TABLET BY MOUTH NEEDED FOR MIGRAINE/HEADACHE. MAY REPEAT 1 DOSE AFTER 1-2 HOURS Mirena 21 mcg/24hr (up to 8 yrs) 52 mg intrauterine device 1 device intrauterine DIRECTED clindamycin phosphate 1 % gel 1 applic topical DAILY PRN (Reason: Acne) Rx Instructions: APPLY TOPICALLY DAILY FOR ACNE cholecalciferol (vitamin D3) 250 mcg (10,000 unit) capsule 250 mcg PO QAM clotrimazole-betamethasone 1-0.05 % Cream 1 applic EXT BID Qty: 30 0RF Rx Instructions: apply in thin amounts to rash on chest wall; stop after 5-7 days. erythromycin ethylsuccinate [E.E.S. Granules] 200 mg/5 mL Suspension For Reconstitution 200 mg PO AC 30 Days Qty: 450 0RF promethazine 25 mg tablet 25 mg PO Q6H PRN (Reason: nausea and vomiting) Qty: 12 0RF Referrals Referrals: Radha Alicea MD [Primary Care Provider] -
[2024-12-22] MEDS: ONDANSETRON INJ 2 MG/ML 2 ML VIAL IV STA (12:50)
[2024-12-22] MEDS: HYDROmorphone INJ 0.5 MG/0.5 ML SYR IV STA ×3 (12:51→16:15)
[2024-12-22 13:11] LABS: Appearance Urine Clear (Clear); Bacteria Urine Automated 3+ (None Seen); Bilirubin Urine 1+ (Negative); Blood Urine Trace (Negative); Color Urine Dark Yellow; Glucose Urine UA Negative (Negative); Ketones Urine Trace (Negative); Leukocyte Esterase Urine Trace (Negative); Nitrite Urine Negative (Negative); Protein Urine Trace (Negative); Specific Gravity Urine 1.025 (1.000-1.030); Urobilinogen Urine Negative (Negative)
[2024-12-22 14:04] LABS: Basophils # (auto) 0.04 K/uL (0.00-0.20); Basophils % (auto) 0.5 %; Eosinophils # (auto) 0.08 K/uL (0.00-0.50); Eosinophils % (auto) 0.9 %; Hematocrit (blood only) 37.4 % (37.0-47.0); Hemoglobin 12.4 g/dl (12.0-16.0); Immature Granulocytes # (auto) 0.02 K/uL (0.01-0.20); Immature Granulocytes % (auto) 0.2 %; Lymphocytes % (auto) 37.4 %; Mean Corpuscular Hgb Conc 33.2 g/dL (32.0-36.0); Mean Corpuscular Volume 90.6 fL (80.0-100.0); Mean Platelet Volume 10.1 fL (9.4-12.4); Monocytes % (auto) 7.9 %; Neutrophils # (auto) 4.68 K/uL (1.40-6.50); Neutrophils % (auto) 53.1 %; Platelet Count 310 K/uL (130-400); RDW Coefficient of Variation 14.8 % (11.5-14.5); RDW Standard Deviation 48.2 fL (36.4-46.3); Red Blood Count 4.13 M/uL (4.20-5.40); White Blood Count 8.82 K/ul (4.8-10.8)
[2024-12-22] MEDS: SODIUM CHLORIDE 0.9% 1,000 ML IV ONE (14:13)
[2024-12-22 14:21] LABS: Pregnancy Test, Serum Negative (Negative)
[2024-12-22 14:26] LABS: Alanine Aminotransferase 16 U/L (7-52); Albumin Globulin Ratio 1.7 (0.9-2); Albumin Level 3.9 gm/dl (3.4-5.0); Alkaline Phosphatase 135 U/L (34-104); Anion Gap 8 (3-11); Aspartate Aminotransferase 21 U/L (13-39); BUN Creatinine Ratio 13.4 (10-20); Bilirubin,Total 0.6 mg/dl (0.2-1.0); Blood Urea Nitrogen 9 mg/dl (6-23); Calcium 8.2 mg/dl (8.6-10.3); Carbon Dioxide 29 mmol/L (21-32); Chloride 98 mmol/L (98-107); Creatinine Clr Calc Pharmacy 84.2 ml/min; Globulin 2.3 gm/dl (2.5-4.0); Glucose 118 mg/dl (70-99(Fasting)); Lipase 45 U/L (11-82); Magnesium 1.6 mg/dl (1.7-2.4); Potassium 2.8 mmol/L (3.5-5.1); Sodium 135 mmol/L (136-145); Total Protein 6.2 gm/dl (6.0-8.3)
[2024-12-22 14:33] LABS: Troponin I High Sensitivity < 2.3 pg/ml (0-14)
[2024-12-22 14:37] LABS: INR 1.1 (0.9-1.1); Partial Thromboplastin Ratio 1.1; Partial Thromboplastin Time 30 Seconds (21-31); Prothrombin Time 11.6 Seconds (9.0-12.0)
[2024-12-22] MEDS: OPTIRAY 320 125ml IV ONE (14:52)
--- NOTE | 2024-12-22 14:52 | Electrocardiogram Report ---
Test Reason : Blood Pressure : */* mmHG Vent. Rate : 97 BPM Atrial Rate : 97 BPM P-R Int : 150 ms QRS Dur : 84 ms QT Int : 340 ms P-R-T Axes : 78 61 64 degrees QTcB Int : 431 ms Normal sinus rhythm Normal ECG When compared with ECG of 25-Nov-2024 17:28, No significant change was found Confirmed by Damon Menendez ([id number]) on 12/22/2024 2:52:15 PM Referred By: REFERRED SELF Confirmed By: Damon Menendez
[2024-12-22] MEDS: POTASSIUM CHLORIDE / WTR 10 MEQ/100 ML PLCT IV ONE (15:06)
[2024-12-22] MEDS: MAGNESIUM SULFATE / D5W 1 GM/100 ML BAG IV STA (15:15)
--- NOTE | 2024-12-22 15:21 | CT Scan Report ---
CT angio chest PE protocol CT DOSE: 808 HISTORY: Upper abd pain, chest pain, R back/flank pain. TECHNIQUE: Multiple CTA images of the chest were obtained after the intravenous administration of 120 ml Optiray. Coronal and sagittal MIPS were obtained from the axial data set and were submitted for review. All measurements were obtained according to NASCET criteria. A dose lowering technique was u tilized adhering to the principles of ALARA. COMPARISON STUDY: 07/03/2023 FINDINGS: There is minimally increased groundglass and reticular opacity inferiorly at the left lower lung lobe, scarring/atelectasis or mild pneumonitis. No other pulmonary consolidation, pleural effus ion, or pneumothorax. No enlarged adenopathy. No pericardial effusion. No thoracic aortic dissection or aneurysm. No pulmonary embolism. No acute osseous findings seen. IMPRESSION: 1. No pulmonary embolism seen. 2. Otherwise as described. ACT 112: Negative or not required by law. The above report was generated using voice recognition software. It may contain grammatical, syntax o r spelling errors. Electronically signed by: Kevin Knox M.D. 12/22/2024 3:19 PM
--- NOTE | 2024-12-22 15:28 | CT Scan Report ---
ABDOMEN AND PELVIS CT WITH IV CONTRAST CT DOSE: 807.87 mGy.cm HISTORY: Acute right chest and upper abdominal pain Upper abd pain, chest pain, R back/flank pain TECHNIQUE: Multiaxial CT images of the abdomen and pelvis were performed following the IV administrat ion of 117 cc of Optiray, A dose lowering technique was utilized adhering to the principles of ALARA . COMPARISON STUDY: CT chest of same day, CT abdomen and pelvis 11/25/2024 FINDINGS: CTA chest dictated separately. Left hemidiaphragm elevation with bibasilar atelectasis. The re is no pneumatosis or pneumoperitoneum. Unremarkable spleen, and right adrenal gland. Stable 8 mm h ypodense left adrenal gland lesion suggestive of a probable adenoma. Hepatic steatosis with mild hepa tomegaly. Cholecystectomy. There is patency of the hepatic and portal veins. Unchanged uncinate proce ss calcifications of the pancreas suggestive of chronic pancreatitis. Equivocal stranding adjacent to the uncinate process is similar to prior. Nonobstructing calculus inferior pole left kidney measure up to 4 mm. 3 mm nonobstructing right renal calculus. Urinary bladder wall thickening with partial distention. IUD within the mid uterus. Athero sclerosis of the aorta. No lymphadenopathy. Wall thickening with partial distention of the stomach. There is diffuse wall thickening throughout t he large bowel and rectum is partially fluid-filled. Noninflamed appendix. Normal small bowel. No acu te fracture. IMPRESSION: 1. Findings compatible with a nonspecific pancolitis, likely infectious or inflammatory. 2. No bowel obstruction or pneumoperitoneum. 3. Evidence of chronic pancreatitis. 4. Nonobstructing bilateral nephrolithiasis. ACT 112: Negative or not required by law. The above report was generated using voice recognition software. It may contain grammatical, syntax o r spelling errors. Electronically signed by: Zachary Amezcua M.D. 12/22/2024 3:26 PM
[2024-12-22] MEDS: THIAMINE HCL 100 MG in SYRINGE 9 ML IV STA (15:41)
[2024-12-22] MEDS: FOLIC ACID 1 MG in SYRINGE 9.8 ML IV STA (15:41)
--- NOTE | 2024-12-22 15:48 | History & Physical Report ---
Date of Service December 22, 2024 Assessment & Plan (1) Pancolitis: (2) Nausea & vomiting: (3) Intractable abdominal pain: Plan Nadja is a 43-year-old female with PMH of gastroparesis, intractable N/V/D, and chronic pancreatitis. She presented on 12/22 for acute worsening of her N/V /D, as well as new onset of pleuritic CP and right lower back pain. Patient is coming in for new pancolitis noted on abdomen/pelvic CT; given recent hospitalization and there is some concern for C. difficile infection. #Pancolitis A/P CT compatible with nonspecific pancolitis; no bowel obstruction Infectious v. Inflammatory; no history of IBD Patient does have history of nonspecific pancolitis and November 2023 Stool PCR/C. difficile testing ordered, pending GI consult appreciated #Intractable nausea/vomiting/diarrhea Suspect this is multifocal: Pancolitis, gastroparesis, chronic pancreatitis, + cannabis hyperemesis syndrome Protonix 40 mg IV BID Famotidine 20 mg IV BID IV antiemetics (Zofran, Compazine, Benadryl) Capsaicin QID PRN Continue to encourage marijuana sensation #Gastroparesis Has not tolerated Reglan in the past; would avoid Reglan use as patient notes facial twitches in the past, which may have been signs for early EPS Continue erythromycin p.o. before meals #Hypokalemia/hypomagnesemia Suspect secondary to GI losses; continue repletion #Chronic pain syndrome Okay to continue oxycodone 5 mg p.o. q8h PRN Continue gabapentin 600 mg TID Continue baclofen, methocarbamol as needed Would not escalate pain control above current regimen #Chronic pancreatitis Secondary to history of alcohol abuse Lipase WNL Continue Creon with meals #Right lower back pain/pleuritic CP Chest CT on arrival revealed no pulmonary embolism Non-hypoxic on arrival Pain control (as above) Continuous pulse oximetry #History of portal vein thrombosis in 2018 Continue Eliquis #Current everyday tobacco cigarette smoker Nicotine patch PRN Disposition: Admit to MedSurg Full code Clear liquid diet with plan to advance as tolerated VTE PPx: Eliquis History of Present Illness Chief Complaint: Ongoing N/V/D, right lower back pain, pleuritic CP Primary Care Provider: Radha Alicea MD Nadja is a 43-year-old female with PMH of alcohol abuse (in remission), chronic pancreatitis, portal vein thrombosis (on Eliquis), tobacco abuse, medical marijuana use, gastroparesis, and chronic pain syndrome. She presented on 12/22 for N/V/D x 2 months with acute worsening of right lower back pain, epigastric pain, and pleuritic chest pain x 2 days. Patient was recently admitted at [facility] from 11/25 to 11/28 for intractable nausea and vomiting. She reports that she felt good upon discharge for approximately 3 days, then developed N/V/D again. She currently has a referral to [facility] which is scheduled for March 08 of this year. However, her pain became so severe that she often felt like she could not breathe. Pain is located epigastric, and she describes it as "needles" jabbing into her stomach. She rates it 8/10 at present and 10/10 at worst. Vomiting exacerbates the pain. Patient has been taking oxycodone 5 mg (3 tablets/day), gabapentin (2 tablets/day), baclofen (1 to 2 tablets/day), and methocarbamol (3 tablets/day) for her pain. She has been taking Zofran and Phenergan p.o. for her nausea at home, which does alleviate the nausea. She is currently tolerating both solids and liquids, and mainly has been sticking to bland foods such as mac & cheese and toast. However, her difficulty breathing, right sided back pain, and pleuritic CP is new. No sick contacts. Patient took her regular morning medicine today; no recent changes since discharge. She has tried to cut back on both her marijuana use and tobacco cigarette smoking; smokes approximately half PPD. She denies any recreational drug use besides medical marijuana. She denies any recent alcohol use. The blood in her stool that she came in with during her last admission has resolved. She is having diarrhea most mornings which is liquid in consistency. No melena. Patient reports that Reglan has not worked for her in the past, and she was told to stop taking it once she started developing "twitches". Patient's vitals are stable at time admission. ED course: NSS 500 mL IV Dilaudid 0.5 mg IV Zofran 4 mg IV Magnesium sulfate 1 g IV K rider 10 mEq IV Thiamine 100 mg IV Folic acid 1 mg IV ROS: Patient endorses fever (2 nights ago; resolved), epigastric pain, pleuritic CP, SOB at rest and with exertion, right sided back pain, N/V/D, and neuropathy in the left arm. Patient denies chills, night-sweats, blood in the urine, hematochezia (resolved during last hospitalization), burning with urination, dysuria, and melena. Allergies Allergy/AdvReac Type Severity Reaction Status Date / Time buspirone [From BuSpar] Allergy Severe Unconscious, Verified 12/02/24 14:42 seizures quetiapine [From Seroquel] Allergy Severe Unconscious, Verified 12/02/24 14:42 seizures citalopram [From Celexa] AdvReac Intermediate Vomiting Verified 12/02/24 14:42 morphine AdvReac Intermediate Vomiting Verified 12/02/24 14:42 metoclopramide AdvReac Unknown "Twitchy" Verified 12/02/24 14:42 vilazodone [From Viibryd] AdvReac Vomiting Verified 12/02/24 14:42 Home Medications Medication Instructions Recorded Confirmed Type clindamycin phosphate 1 % topical 1 applic topical DAILY PRN Acne 02/17/23 12/22/24 History gel TENS unit and electrodes combo pack #1 ea 07/10/23 12/02/24 Rx cholecalciferol (vitamin D3) 250 250 mcg PO QAM 08/18/23 12/22/24 History mcg (10,000 unit) capsule [id number]-wuctwac 3 cap PO TID Abdominal Discomfort 10/23/23 12/22/24 Rx 36,000-114,000-180,000 unit 90 days #810 caps capsule,delay rel (Creon) mecobalamin (vitamin B12) 1,000 1,000 mcg PO QAM #100 tabs 01/20/24 12/22/24 Rx mcg chewable tablet (B12 Active) clotrimazole-betamethasone 1 1 applic EXT BID #30 grams 02/23/24 12/22/24 Rx %-0.05 % topical cream apixaban 5 mg tablet (Eliquis) 5 mg PO BID #90 tabs 06/22/24 12/22/24 Rx sumatriptan succinate 100 mg tablet 100 mg PO DAILY PRN 07/19/24 12/22/24 Rx migraine/headache #20 tabs gabapentin 600 mg tablet 600 mg PO TID 30 days #90 tabs 07/30/24 12/22/24 Rx levonorgestrel 21 mcg/24 hr (up to 1 device intrauterine DIRECTED 08/16/24 12/22/24 History 8 years) 52 mg intrauterine device (Mirena) folic acid 1 mg tablet 1 mg PO DAILY #90 tabs 09/27/24 12/22/24 Rx pantoprazole 40 mg tablet,delayed 40 mg PO BID #180 tabs 10/11/24 12/22/24 Rx release baclofen 20 mg tablet 20 mg PO TID PRN neck pain/muscle 10/20/24 12/22/24 Rx spasm #270 tabs albuterol sulfate 90 mcg/actuation 2 puff inhalation Q4H PRN 11/18/24 12/22/24 Rx aerosol inhaler (Ventolin HFA) cough/wheeze/shortness of breath #1 inhaler methocarbamol 750 mg tablet 750 mg PO TID PRN pain #90 tabs 11/24/24 12/22/24 Rx erythromycin ethylsuccinate 200 200 mg (5 mL) PO AC 30 days #450 mL 11/28/24 12/22/24 Rx mg/5 mL oral powder for suspension (E.E.S. Granules) promethazine 25 mg tablet 25 mg PO Q6H PRN nausea and 11/28/24 12/22/24 Rx vomiting #12 tabs clonazepam 0.5 mg tablet 0.25 mg (1/2 x 0.5 mg) PO BID PRN 12/10/24 12/22/24 Rx anxiety 28 days #22 tabs ondansetron 4 mg disintegrating 4 mg PO Q6H PRN Nausea And 12/21/24 12/22/24 Rx tablet Vomiting 30 days #60 tabs oxycodone 5 mg tablet 5 mg PO Q8H PRN pain 2 weeks #42 12/21/24 12/22/24 Rx tabs Past Med/Surg History Problem List (Updated 12/22/24 @ 16:08 by Nabeel Au PA-C) Hypocalcemia (Acute) Hypomagnesemia (Acute) Hypokalemia (Acute) Pancolitis (Acute) Tobacco abuse Leukocytosis Gastritis Chronic pancreatitis (Acute) Per records Hematochezia Intractable abdominal pain Nausea & vomiting (Acute) History of gastritis History of alcohol abuse Restless leg syndrome Medical marijuana use Chronic prescription opiate use Chronic prescription benzodiazepine use Chronic abdominal pain (Acute) Chronic pain syndrome Right ankle sprain Tendinitis of both rotator cuffs Gastroparesis Intertrigo Low serum cortisol level Other cervical disc degeneration at C6-C7 level Degeneration of thoracolumbar intervertebral disc T12-L1 Other cervical disc degeneration at C5-C6 level Elevated hemidiaphragm Generalized anxiety disorder with panic attacks Portal vein thrombosis (~2018) Dental decay Hiatal hernia (Chronic) Medical History Pancreatic pseudocyst Pancolitis Adjustment disorder with depressed mood Per records History of seizure due to alcohol withdrawal 2020, "from either alcohol or clonazepam" PTSD (post-traumatic stress disorder) Hx of migraines Iron deficiency anemia Insomnia Hiatal hernia Nocturnal hypoxia Noted during previous hospitalizations per patient, plan for future sleep study (not scheduled until 07/2024 per patient) Degeneration of thoracolumbar intervertebral disc History of colitis Cervical radiculopathy Cervical spondylosis Anxiety and depression Tendinitis of right rotator cuff Ongoing Acne Cream every 4-6 months GERD (gastroesophageal reflux disease) Panic attacks hx Peptic ulcer disease hx Surgical History H/O oral surgery History of breast biopsy History of esophagogastroduodenoscopy (EGD) 2017 History of cholecystectomy History of tooth extraction History of lumpectomy of right breast "benign" Family History Father Family history of diabetes mellitus Myocardial infarction Stroke Hypertension Grandfather (Maternal) Family history of diabetes mellitus Grandmother (Maternal) Family history of diabetes mellitus Hypertension Cancer Mother Hypothyroidism Grandfather (Paternal) Cancer Heart problem Grandmother (Paternal) Hypertension Denies family history of Ovarian cancer Prostate cancer Breast cancer Colorectal cancer Social History Smoking Status: Current every day smoker Tobacco Type: Cigarettes Age Started Using Tobacco: 15; packs per day: 0.5; Cigarettes Per Day: 12; Second Hand Exposure: No; Do You Dip or Chew Tobacco: No; Hx Alcohol Use: No Hx Substance Use: Yes Last Used Substance: Hours (ago) Substance Use Type Other:: Smokes Kurt Preferred Language: Urdu Communication Ability: Effective Visual Impairment: No Limitations Hearing Ability: Normal Color Maker Dyer Required: No Beliefs That Will Affect Care: None marital status: Single Current Living Situation: Parent Current Living Situation Comment: lives w/ mother and dog current occupational status: employed current occupation: at [employer] How many Children do You have: 0 Feels Safe at Home: Yes Childhood Exposure to Second-Hand Smoke: No Diet: regular Diet Comment: regular Dental Care, Regularly: Yes Physical Activity Frequency: Does not Exercise Seatbelt Use: always Sunscreen Use: Yes Do you think of yourself as: straight/heterosexual Assistive Devices: None Review of Systems Review of Systems: See HPI above Physical Exam Physical Exam: General: Moderate distress secondary to epigastric pain; pleasant affect; non- toxic appearing; cooperative; SpO2 97% on RA HEENT: normocephalic, atraumatic; no scleral icterus; PERRLA; vision and hearing grossly intact Neck: supple; no lymphadenopathy; trachea midline Skin: warm, dry without signs of tenting; no cyanosis; no rashes, bruising, lesions, or erythema noted CV: chest wall NTP; RRR; S1/S2 normal; no murmurs/rubs/gallops; pulses intact and symmetric at radial, DP, and PT Lungs: no acute respiratory distress; symmetrical chest wall expansion; clear breath sounds across all lung ramirez w/o adventitious sounds; no wheezing ABD: Soft; abdomen is mildly tender to palpation in all 4 quadrants, but mainly TTP in the epigastric region; BS present; no rebound/guarding; no distention; no rashes or bruises noted on the abdomen or flanks bilaterally MSK: no tics or fasciculations; no edema noted in the LEs b/l, nonerythematous Back: Upper spine NTP; right lower back is TTP; positive CVA tenderness on the right side Neuro: A&Ox3; normal mood and affect; fluent speech; no focal deficits; sensation grossly intact and symmetric in lower extremity bilaterally Results & Data Results & Data Vital Signs (Past 12 Hours) Vital Signs Temp Pulse Pulse Resp BP BP Pulse Ox 12/22/24 14:00 83 17 117/81 97 12/22/24 12:55 89 17 113/88 96 12/22/24 12:52 96 H 12/22/24 12:48 102 H 20 98 12/22/24 11:55 36.2 C L 97 H 18 117/67 95 O2 Del Method 12/22/24 14:00 Room Air 12/22/24 12:55 Room Air 12/22/24 12:52 12/22/24 12:48 Room Air 12/22/24 11:55 Room Air Laboratory Results Abnormal lab results 12/22/24 12/22/24 Range/Units 12:40 13:30 RBC 4.13 L (4.20-5.40) M/uL RDW Std Deviation 48.2 H (36.4-46.3) fL RDW Coeff of Jessica 14.8 H (11.5-14.5) % [place] # (Auto) 0.70 H (0.11-0.59) K/uL Sodium 135 L (136-145) mmol/L Potassium 2.8 L (3.5-5.1) mmol/L Glucose 118 H (70-99(Fasting)) mg/dl Calcium 8.2 L (8.6-10.3) mg/dl Magnesium 1.6 L (1.7-2.4) mg/dl Alkaline Phosphatase 135 H (34-104) U/L Globulin 2.3 L (2.5-4.0) gm/dl Urine Protein Trace H (Negative) Urine Ketones Trace H (Negative) Urine Blood Trace H (Negative) Urine Bilirubin 1+ H (Negative) Ur Leukocyte Esterase Trace H (Negative) Urine WBC (Auto) 6-10 H (0-5) /hpf Urine RBC (Auto) 6-10 H (0-2) /hpf U Hyaline Cast (Auto) 3-5 H (0-2) /lpf U Epithel Cells (Auto) 6-10 H (0-2) /hpf Urine Bacteria (Auto) 3+ H (None Seen) Diagnostic Findings Abdomen/Pelvis CT 12/22/24 12:[address] WITH IV CONTRAST CT DOSE: 807.87 mGy.cm HISTORY: Acute right chest and upper abdominal pain Upper abd pain, chest pain, R back/flank pain TECHNIQUE: Multiaxial CT images of the abdomen and pelvis were performed following the IV administration of 117 cc of Optiray, A dose lowering technique was utilized adhering to the principles of ALA. COMPARISON STUDY: CT chest of same day, CT abdomen and pelvis 11/25/2024 FINDINGS: CTA chest dictated separately. Left hemidiaphragm elevation with bibasilar atelectasis. There is no pneumatosis or pneumoperitoneum. Unremarkable spleen, and right adrenal gland. Stable 8 mm hypodense left adrenal gland lesion suggestive of a probable adenoma. Hepatic steatosis with mild hepatomegaly. Cholecystectomy. There is patency of the hepatic and portal veins. Unchanged uncinate process calcifications of the pancreas suggestive of chronic pancreatitis. Equivocal stranding adjacent to the uncinate process is similar to prior. Nonobstructing calculus inferior pole left kidney measure up to 4 mm. 3 mm nonobstructing right renal calculus. Urinary bladder wall thickening with partial distention. IUD within the mid uterus. Atherosclerosis of the aorta. No lymphadenopathy. Wall thickening with partial distention of the stomach. There is diffuse wall thickening throughout the large bowel and rectum is partially fluid-filled. Noninflamed appendix. Normal small bowel. No acute fracture. IMPRESSION: 1. Findings compatible with a nonspecific pancolitis, likely infectious or inflammatory. 2. No bowel obstruction or pneumoperitoneum. 3. Evidence of chronic pancreatitis. 4. Nonobstructing bilateral nephrolithiasis. ACT 112: Negative or not required by law. The above report was generated using voice recognition software. It may contain grammatical, syntax or spelling errors. Electronically signed by: Zachary Amezcua M.D. 12/22/2024 3:26 PM Chest CTA 12/22/24 12:39 CT angio chest PE protocol CT DOSE: 808 HISTORY: Upper abd pain, chest pain, R back/flank pain. TECHNIQUE: Multiple CTA images of the chest were obtained after the intravenous administration of 120 ml Optiray. Coronal and sagittal MIPS were obtained from the axial data set and were submitted for review. All measurements were obtained according to NASCET criteria. A dose lowering technique was utilized adhering to the principles of ALARA. COMPARISON STUDY: 07/03/2023 FINDINGS: There is minimally increased groundglass and reticular opacity inferiorly at the left lower lung lobe, scarring/atelectasis or mild pneumonitis. No other pulmonary consolidation, pleural effusion, or pneumothorax. No enlarged adenopathy. No pericardial effusion. No thoracic aortic dissection or aneurysm. No pulmonary embolism. No acute osseous findings seen. IMPRESSION: 1. No pulmonary embolism seen. 2. Otherwise as described. ACT 112: Negative or not required by law. The above report was generated using voice recognition software. It may contain grammatical, syntax or spelling errors. Electronically signed by: Kevin Knox M.D. 12/22/2024 3:19 PM ECG Additional Comments: ECG revealed NSR at 97 bpm; QTc 431 Code Status & VTE Plan Code Status Full code VTE Prophylaxis Plan VTE Prophylaxis will be ordered: Yes Supervising Physician Co-Signing Physician Notes Patient seen and examined, chart reviewed, case discussed with Bunny Ramon PA-C and I agree with the assessment and plan as above except as otherwise noted Labs and images reviewed. CTA/P with nonspecific pancolitis, stool studies pending. CTA chest with no evidence of PE. Hypomagnesemic/hypokalemic consistent with GI losses. UA contaminated versus infected appearing, no urinary symptoms 43-year-old female with past medical history of recurrent nausea/vomiting/diarrhea, pancolitis, gastroparesis, chronic pain syndrome, chronic pancreatitis, portal venous thrombosis, alcohol abuse who presents with recurrent low back pain, pleuritic/inspiratory pain, and nausea/vomiting. She has been dealing with gastroparesis, nausea, vomiting, and inconsistent bowel movements with intermittent diarrhea for the last 2 months progressively worsening. She was pending a colonoscopy next month with [facility] [place], [place], she reports she is currently following with Jeremi Braswell locally. She reports she has never had pancolitis before, this finding is new. Per chart review patient did have some nonspecific colitis through majority of the large bowel 11/2023. Denies prior history of IBD/UC/Crohn's. Has had some hematochezia in the past that she thought was hemorrhoids. Does have a history of portal vein thrombosis. History of C. difficile gene positive toxin negative in the past. If testing is pending if positive treat with vancomycin. Does have a history of chronic pancreatitis. Denies any recent alcohol use. No evidence of acute pancreatitis on CT, lipase is normal. PG Care Time/CCT Total # of Minutes Spent Total Time Spent with Patient: Total time spent is greater than 50% in coordination of care (as documented) at patient's floor/unit and/or counseling patient: [place] [address] INT INP/OBS CARE 3/75MIN Patient Type Established Medical Decision Making High Complexity Diagnoses Pancolitis K51.00 Nausea & vomiting R11.2 Intractable abdominal pain R10.9
[2024-12-22] MEDS: POTASSIUM CHLORIDE / WTR 10 MEQ/100 ML PLCT IV SCH (18:09)
[2024-12-22] MEDS ORDERED: CAPSAICIN CR 0.075% 60 GM TUBE EXT PRN (19:28)
[2024-12-22] MEDS ORDERED: MELATONIN 3 MG TAB PO PRN (19:28)
[2024-12-22] MEDS ORDERED: SUMAtriptan succinate 100 MG TAB PO PRN (19:28)
[2024-12-22] MEDS ORDERED: ALBUTEROL HFA 8 GM INHALER INH PRN (19:28)
[2024-12-22] MEDS: clonazePAM 0.5 MG TAB PO PRN (20:05)
[2024-12-22] MEDS: oxyCODONE HCL IR 5 MG TAB (IMMEDIATE RELEASE) PO PRN (20:11)
[2024-12-22] MEDS: GABAPENTIN 600 MG TAB PO SCH (20:11)
[2024-12-22] MEDS: PANTOprazole 40 MG/10 ML SYR IV SCH (20:12)
[2024-12-22] MEDS: FAMOTIDINE 20MG IV PUSH 20 MG/5 ML SYR IV SCH (20:12)
[2024-12-22] MEDS: METHOCARBAMOL 750 MG TABLET PO PRN (20:39)
[2024-12-22] MEDS: APIXABAN 5 MG TABLET PO SCH (20:39)
[2024-12-22] MEDS: PANCREAZE (LIPASE 10,500U) CAP PO SCH (20:39)
[2024-12-22] MEDS: ERYTHROMYCIN ETHYLSUCC SUSP 200 MG/5 ML 100 ML BTL PO SCH (20:40)
[2024-12-22] MEDS: diphenhydrAMINE 50 MG/ML VIAL IV PRN (22:11)
[2024-12-23] MEDS: ONDANSETRON INJ 2 MG/ML 2 ML VIAL IV PRN (03:36)
[2024-12-23] MEDS: BACLOFEN 20 MG TAB PO PRN (04:05)
[2024-12-23] MEDS: ACETAMINOPHEN 325 MG TAB PO PRN (04:30)
[2024-12-23] MEDS: PROCHLORPERAZINE 5 MG in SYRINGE 4 ML IV PRN (05:09)
[2024-12-23 07:33] VITALS: RESP 16; TEMP 97.8
[2024-12-23 07:41] LABS: Basophils # (auto) 0.05 K/uL (0.00-0.20); Basophils % (auto) 0.8 %; Eosinophils # (auto) 0.24 K/uL (0.00-0.50); Eosinophils % (auto) 3.7 %; Hematocrit (blood only) 32.8 % (37.0-47.0); Hemoglobin 10.8 g/dl (12.0-16.0); Immature Granulocytes # (auto) 0.01 K/uL (0.01-0.20); Immature Granulocytes % (auto) 0.2 %; Lymphocytes # (auto) 2.58 K/uL (1.20-3.40); Lymphocytes % (auto) 39.4 %; Mean Corpuscular Hemoglobin 30.3 pg (25.0-34.0); Mean Corpuscular Hgb Conc 32.9 g/dL (32.0-36.0); Mean Corpuscular Volume 91.9 fL (80.0-100.0); Mean Platelet Volume 9.7 fL (9.4-12.4); Monocytes # (auto) 0.72 K/uL (0.11-0.59); Neutrophils # (auto) 2.94 K/uL (1.40-6.50); Neutrophils % (auto) 44.9 %; Platelet Count 282 K/uL (130-400); RDW Coefficient of Variation 14.9 % (11.5-14.5); RDW Standard Deviation 50.6 fL (36.4-46.3); Red Blood Count 3.57 M/uL (4.20-5.40); White Blood Count 6.54 K/ul (4.8-10.8)
[2024-12-23 08:00] LABS: Anion Gap 3 (3-11); BUN Creatinine Ratio 4.8 (10-20); Blood Urea Nitrogen 3 mg/dl (6-23); Carbon Dioxide 30 mmol/L (21-32); Chloride 109 mmol/L (98-107); Creatinine Clr Calc Pharmacy 88.1 ml/min; Glucose 99 mg/dl (70-99(Fasting)); Potassium 3.3 mmol/L (3.5-5.1); Sodium 142 mmol/L (136-145)
[2024-12-23] MEDS: POTASSIUM CHLORIDE / WTR 10 MEQ/100 ML PLCT IV SCH (09:33)
[2024-12-23] MEDS: NICOTINE 14 MG/24 HR PATCH TD SCH (09:56)
[2024-12-23] MEDS: POTASSIUM CHLORIDE CRTAB 20 MEQ TABCR PO STA (09:57)
[2024-12-23] MEDS: FOLIC ACID 1 MG TAB PO SCH (09:58)
--- NOTE | 2024-12-23 11:15 | Gastrointestinal Consultation ---
Date of Consultation December 23, 2024 Assessment & Plan (1) Pancolitis: (2) Chronic pancreatitis: (3) Cannabinoid hyperemesis syndrome: (4) Abdominal pain: Plan From a pancolitis perspective, this finding has been noted on CT examinations before at [facility]. She was advised in 2022 and 2023 to have a colonoscopy to follow-up on this. In April 2024, she declined to schedule a colonoscopy per [facility] documentation. She had an appointment last week with [facility] for a colonoscopy and she did not end up proceeding with this. Obtain stool studies as ordered by hospitalist team to exclude C diff and other infectious causes of colitis. Will need eventual colonoscopy, however at the present time I do not think she would proceed with a bowel prep due to her complaints of abdominal pain, nausea, & vomiting. Will need to ensure she does eventually get coordinated for a colonoscopy. From a long-term perspective regarding her chronic GI complaints, the patient has had poor continuity of GI care since 2018, alternating between [facility] and [facility]. As for her chronic pancreatitis, she should continue to monitor this with her outpatient GI specialist, avoid alcohol, & continue her Creon. As for her gastroparesis, it appears that someone has her on Erythromycin. I do wonder if her chronic narcotic use is driving this diagnosis. Due to her ongoing gastroparesis and chronic pancreatitis with pancreatic & CBD duct strictures, she needs to be seeing a GI group that offers EUS/ERCP as well as motility and continuity of care needs to be emphasized. It appears she has been scheduled with [facility] for January, but we will reach out to her referring provider with these recommendations so that she can be arranged with a team capable of meeting each of her needs. She notes that she has an upcoming appointment with [facility] in February 2025 and she should proceed with that. Will obtain a Celiac panel as I've not found results of one in [facility] or [facility] charts. She can continue Protonix; she previously refused Carafate. History of Present Illness Reason for Consultation: "Pancolitis" Attending Physician: Camilo Guajardo MD History of Present Illness Patient is a 43 yo female with extensive GI medical history who has jumped between [facility] & [facility] since 2018. She presents for another admission to [facility] due to epigastric pain, nausea and vomiting. Her known medical history includes chronic pancreatitis due to alcohol use, pancreatic pseduocyst, pancreatic duct & CBD stricture, Gastroparesis in the setting of chronic narcotic use, and cannabinoid hyperemesis. Home medication list includes Apixiban for her portal vein thrombus, Baclofen for neck pain, Erythromycin for gastroparesis, Gabapentin for pain, Creon for her chronic pancreatitis, Methocarbamol for pain, Zofran for nausea, Oxycodone for pain, Protonix for her ongoing GI complaints, Promethazine for nausea. Her CT scan during this admission indicates concern for colitis, unfortunately was not enhanced with oral contrast. She is not having diarrhea or rectal bleeding. Of note, she had this finding in 2022 at [facility] on CT imaging. [facility] doctors evaluated at that time in April 2023 and recommended she have an EGD & colonoscopy. She returned her care to [facility] after that for some time, she was then referred to pain management due to their concerns for her pain and ongoing narcotic use. She did eventually return to [facility] in 2023 and had a negative EGD. However, per documentation in [facility], on 05/28/24 she refused the colonoscopy that they wanted to do to investigate the previous findings of colitis as well as her complaints. During this hospitalization, her H/H is 10.8/32.8. LFTs are unremarkable. CTA is negative. CT abdomen/pelvis with IV contrast only showed question of pancolitis. I did perform a thorough chart review dating back to 2018. Findings are as follow: * Since 2019, she has had 22 CT scans of the abdomen/pelvis that I can see available in our system either performed at [facility] or scanned from [facility]. She has had at least 5 MRI/MRCP since 2019 to monitor her pancreatic pseudocyst. * In 2018, she began seeing [facility] due to an admission for alcohol pancreatitis. She had a negative EGD during that admission, but was advised to have an outpatient EUS. * In 2019, she had an EUS performed by Dr. Kelley of [facility] that did indicate findings consistent with chronic pancreatitis and a pseudocyst. * In 2019, she was again hospitalized at [facility] for alcoholic pancreatitis and her portal vein thrombus * In March 2020, she saw Dr. Bennie Almeida at [facility] for another opinion. He was unaware that she had had an EUS, so he ordered another. This repeat EUS again showed chronic pancreatitis and pseudocyst. Biopsies were benign. * In 2020, she followed up with [facility] at [facility]. At that time, it was advised she have surveillance MRIs q 6 months, abstain from alcohol, and take Creon. * In 2021, she again followed up with [facility] at [facility]. At that time, they advised continued MRI surveillance to decide if ERCP was necessary. They did not feel this was necessary based on results. * In 2021, she was admitted to the hospital and again saw [facility]. At that time, Dr. Perez recommended cessation of alcohol & marijuana, discussed not only her chronic pancreatitis but her cannabinoid hyperemesis syndrome. He recommended psych follow-up. * Shortly after that hospital visit in 2021, she switched back to [facility] in [place]; She was advised to have a follow-up MRI in 6 months to reassess the pseudocyst. * In 2022, she again saw Nahed NO of [facility]. At this visit, she was referred for main management evaluation, however it does not appear she followed through with this consult at that time. * She saw Nahed NO again in 2022 and once again the recommendation of pain management was advised due to concerns of chronic narcotic use, overlapping with Phenergan use as part of her anti-emetic protocol. * Once again in 2022, she had another visit with Nahed NO and was again advised to see pain management. * She went to [facility] shortly after in 2022 and was evaluated by GI due to CT findings of proctocolitis. In April 2023, she was told to have an outpatient colonoscopy. * In May 2023, she saw Dr. Kraus at [facility] and was told to follow-up as an outpatient for scopes as well as cannabinoid hyperemesis syndrome. * In June 2023, she returned to [facility] service with Nahed NO. She had a positive gastric emptying study and was referred to [facility] in [place], [place] to be evaluated by their gastroparesis clinic. I do not have records of whether she followed through with this recommendation. * I do have a gap in her GI records from June 2023-April 2024. I am not sure where she was seeking care at that time, but was not being seen by [facility] either. * In April 2024, there is documentation in [facility] system that they attempted to schedule patient for EGD & colonoscopy. She refused the colonoscopy, but agreed to EGD. In May 2024, she had an unremarkable EGD with [facility] GI. Several weeks ago, she was seen by Ernie Yap PA-C and Dr. May while she was admitted at [facility] for n/v concerns. Carafate was offered for her gastritis and she declined. She was advised to proceed with her outpatient colonoscopy that was scheduled for last week with [facility] GI. She tells me today she did not go through with this procedure. She expresses frustration that no one has done anything for her. She notes her primary care has arranged her to see a GI specialist at [facility] as she has not been satisfied with her care from [facility], [facility] in [place], or [facility] in [place], [place]. She notes her appointment is scheduled for February 2025. She shares with me today that her home narcotics are not sufficient to control her pain and she's frustrated that she's not receiving something further in the hospital. Allergies Allergy/AdvReac Type Severity Reaction Status Date / Time buspirone [From BuSpar] Allergy Severe Unconscious, Verified 12/02/24 14:42 seizures quetiapine [From Seroquel] Allergy Severe Unconscious, Verified 12/02/24 14:42 seizures citalopram [From Celexa] AdvReac Intermediate Vomiting Verified 12/02/24 14:42 morphine AdvReac Intermediate Vomiting Verified 12/02/24 14:42 metoclopramide AdvReac Unknown "Twitchy" Verified 12/02/24 14:42 capsaicin AdvReac Redness of Verified 12/22/24 22:15 Skin vilazodone [From Viibryd] AdvReac Vomiting Verified 12/02/24 14:42 Home Medications Medication Instructions Recorded Confirmed Type clindamycin phosphate 1 % topical 1 applic topical DAILY PRN Acne 02/17/23 12/22/24 History gel TENS unit and electrodes combo pack #1 ea 07/10/23 12/02/24 Rx cholecalciferol (vitamin D3) 250 250 mcg PO QAM 08/18/23 12/22/24 History mcg (10,000 unit) capsule yewsih-[id number]-umwxhdy 3 cap PO TID Abdominal Discomfort 10/23/23 12/22/24 Rx 36,000-114,000-180,000 unit 90 days #810 caps capsule,delay rel (Creon) mecobalamin (vitamin B12) 1,000 1,000 mcg PO QAM #100 tabs 01/20/24 12/22/24 Rx mcg chewable tablet (B12 Active) clotrimazole-betamethasone 1 1 applic EXT BID #30 grams 02/23/24 12/22/24 Rx %-0.05 % topical cream apixaban 5 mg tablet (Eliquis) 5 mg PO BID #90 tabs 06/22/24 12/22/24 Rx sumatriptan succinate 100 mg tablet 100 mg PO DAILY PRN 07/19/24 12/22/24 Rx migraine/headache #20 tabs gabapentin 600 mg tablet 600 mg PO TID 30 days #90 tabs 07/30/24 12/22/24 Rx levonorgestrel 21 mcg/24 hr (up to 1 device intrauterine DIRECTED 08/16/24 12/22/24 History 8 years) 52 mg intrauterine device (Mirena) folic acid 1 mg tablet 1 mg PO DAILY #90 tabs 09/27/24 12/22/24 Rx pantoprazole 40 mg tablet,delayed 40 mg PO BID #180 tabs 10/11/24 12/22/24 Rx release baclofen 20 mg tablet 20 mg PO TID PRN neck pain/muscle 10/20/24 12/22/24 Rx spasm #270 tabs albuterol sulfate 90 mcg/actuation 2 puff inhalation Q4H PRN 11/18/24 12/22/24 Rx aerosol inhaler (Ventolin HFA) cough/wheeze/shortness of breath #1 inhaler methocarbamol 750 mg tablet 750 mg PO TID PRN pain #90 tabs 11/24/24 12/22/24 Rx erythromycin ethylsuccinate 200 200 mg (5 mL) PO AC 30 days #450 mL 11/28/24 12/22/24 Rx mg/5 mL oral powder for suspension (E.E.S. Granules) promethazine 25 mg tablet 25 mg PO Q6H PRN nausea and 11/28/24 12/22/24 Rx vomiting #12 tabs clonazepam 0.5 mg tablet 0.25 mg (1/2 x 0.5 mg) PO BID PRN 12/10/24 12/22/24 Rx anxiety 28 days #22 tabs oxycodone 5 mg tablet 5 mg PO Q8H PRN pain 2 weeks #42 12/21/24 12/22/24 Rx tabs ondansetron 4 mg disintegrating 4 mg PO Q6H PRN Nausea And 12/23/24 Rx tablet Vomiting 30 days #60 tabs Patient History Medical History Pancreatic pseudocyst Pancolitis Adjustment disorder with depressed mood Per records History of seizure due to alcohol withdrawal 2020, "from either alcohol or clonazepam" PTSD (post-traumatic stress disorder) Hx of migraines Iron deficiency anemia Insomnia Hiatal hernia Nocturnal hypoxia Noted during previous hospitalizations per patient, plan for future sleep study (not scheduled until 07/2024 per patient) Degeneration of thoracolumbar intervertebral disc History of colitis Cervical radiculopathy Cervical spondylosis Anxiety and depression Tendinitis of right rotator cuff Ongoing Acne Cream every 4-6 months GERD (gastroesophageal reflux disease) Panic attacks hx Peptic ulcer disease hx Surgical History H/O oral surgery History of breast biopsy History of esophagogastroduodenoscopy (EGD) 2017 History of cholecystectomy History of tooth extraction History of lumpectomy of right breast "benign" Family History Father Family history of diabetes mellitus Myocardial infarction Stroke Hypertension Grandfather (Maternal) Family history of diabetes mellitus Grandmother (Maternal) Family history of diabetes mellitus Hypertension Cancer Mother Hypothyroidism Grandfather (Paternal) Cancer Heart problem Grandmother (Paternal) Hypertension Denies family history of Ovarian cancer Prostate cancer Breast cancer Colorectal cancer Social History Smoking Status: Current every day smoker Tobacco Type: Cigarettes Age Started Using Tobacco: 15; packs per day: 0.5; Cigarettes Per Day: 12; Second Hand Exposure: No; Do You Dip or Chew Tobacco: No; Hx Alcohol Use: Yes Alcohol type: wine Hx Substance Use: Yes Last Used Substance: Unknown Substance Use Type Other:: Smokes Dignajuanna Preferred Language: Romanian Communication Ability: Effective Visual Impairment: No Limitations Hearing Ability: Normal Group Manager Required: No Beliefs That Will Affect Care: None marital status: Single Current Living Situation: Parent Current Living Situation Comment: family, mother current occupational status: employed current occupation: at [employer] How many Children do You have: 0 Feels Safe at Home: Yes Safety Concerns: Feels Safe At This Time Childhood Exposure to Second-Hand Smoke: No Diet: regular Diet Comment: regular Dental Care, Regularly: Yes Physical Activity Frequency: Does not Exercise Seatbelt Use: always Sunscreen Use: Yes Do you think of yourself as: straight/heterosexual Assistive Devices: None Review of Systems Constitutional: no fever and no chills Respiratory: no cough and no dyspnea Cardiovascular: no chest pain Gastrointestinal: + abdominal pain, + nausea and + vomitin g Physical Exam Constitutional: well developed; no acute distress Respiratory: normal respiratory effort Gastrointestinal (Abdomen): Inspection/Auscultation: abdomen normal to inspection and normal bowel sounds Percussion/Palpation: + abdomen tender, + guarding and abdomen soft Psychiatric: Orientation: alert and oriented x 3 Results & Data Vital Signs (Past 12 Hours) Vital Signs Temp Pulse Pulse Resp BP Pulse Ox O2 Del Method 12/23/24 07:32 36.6 C 69 16 104/76 96 Room Air 12/23/24 07:09 69 12/23/24 04:26 36.5 C 71 20 130/95 99 Room Air PG Care Time/CCT Total # of Minutes Spent Total Time Spent with Patient: Total time spent is greater than 50% in coordination of care (as documented) at patient's floor/unit and/or counseling patient: Between patient encounter and in depth chart review, 87 minutes were spent in the care of this patient. Coding Level of Care Code 43416 IN/OBS CONSULT LVL 5,80M Diagnoses Pancolitis K51.00 Chronic pancreatitis K86.1 Cannabinoid hyperemesis syndrome R11.2; F12.90 Abdominal pain R10.9 Abdominal location: unspecified location (4) Abdominal pain Abdominal location: unspecified location Qualified Code(s): R10.9 - Unspecified abdominal pain
[2024-12-23 12:53] LABS: C Reactive Protein < 0.50 mg/dl (0-0.5)
--- NOTE | 2024-12-23 14:49 | Discharge Summary ---
Discharge Summary Date of Service December 23, 2024 Principal Dx & Hospital Course #1 = Principal Diagnosis (1) Pancolitis: (2) Nausea & vomiting: (3) Intractable abdominal pain: Plan #Pancolitis | N/V/D | Gastroparesis | Chronic pancreatitis Nadja is a 43-year-old female with PMH of gastroparesis, intractable N/V/D, and chronic pancreatitis. She presented on 12/22 for acute worsening of her N/V/D, as well as new onset of pleuritic CP and right lower back pain. Chest CTA without PE. CT A/P with nonspecific pancolitis; no bowel obstruction. See GI consultation from this admission, this is not a new finding for her. Agree with [facility] referral, celiac panel is testing, do feel that colonscopy could be of benefit outpatient if patient can tolerate prep. Nadja had not been taking the erythromycin at home due to taste. Did feel like it was helping, when she took it for the first two days. Symptoms improved after able to get some sleep (after reciving benadryl). Discussed lifestyle modifications (continue cut back on marijuana use, staying upright and walking after meals, mixing erythromcyin with a little juice) to help with gastroparesis symptoms, until she is able to see tertiary care. Keep PCP appointment tomorrow. No change to home nausea/pain regimen. #Hypokalemia/hypomagnesemia Suspect secondary to GI losses- replaced IV and PO #Chronic pain syndrome Continue home regimen - no esceation whle inpatient #Right lower back pain/pleuritic CP Chest CT on arrival revealed no pulmonary embolism. Non hypoxic. Pain improved. #History of portal vein thrombosis in 2018 Continue Eliquis #Current everyday tobacco cigarette smoker Nicotine patch PRN. Recommend cessation. Disposition:discharge to home today Notes For Next Care Provider recommend faxing GI consultation from this admission with her [facility] referral Admission HPI Per Admitting Provider Nadja is a 43-year-old female with PMH of alcohol abuse (in remission), chronic pancreatitis, portal vein thrombosis (on Eliquis), tobacco abuse, medical marijuana use, gastroparesis, and chronic pain syndrome. She presented on 12/22 for N/V/D x 2 months with acute worsening of right lower back pain, epigastric pain, and pleuritic chest pain x 2 days. Patient was recently admitted at [facility] from 11/25 to 11/28 for intractable nausea and vomiting. She repo rts that she felt good upon discharge for approximately 3 days, then developed N/V/D again. She currently has a referral to [facility] which is scheduled for March 08 of this year. However, her pain became so severe that she often felt like she could not breathe. Pain is located epigastric, and she describes it as "needles" jabbing into her stomach. She rates it 8/10 at present and 10/10 at worst. Vomiting exacerbates the pain. Patient has been taking oxycodone 5 mg (3 tablets/day), gabapentin (2 tablets/day), baclofen (1 to 2 tablets/day), and methocarbamol (3 tablets/day) for her pain. She has been taking Zofran and Phenergan p.o. for her nausea at home, which does alleviate the nausea. She is currently tolerating both solids and liquids, and mainly has been sticking to bland foods such as mac & cheese and toast. However, her difficulty breathing, right sided back pain, and pleuritic CP is new. No sick contacts. Patient took her regular morning medicine today; no recent changes since discharge. She has tried to cut back on both her marijuana use and tobacco cigarette smoking; smokes approximately half PPD. She denies any recreational drug use besides medical marijuana. She denies any recent alcohol use. The blood in her stool that she came in with during her last admission has resolved. She is having diarrhea most mornings which is liquid in consistency. No melena. Patient reports that Reglan has not worked for her in the past, and she was told to stop taking it once she started developing "twitches". Patient's vitals are stable at time admission. ED course: NSS 500 mL IV Dilaudid 0.5 mg IV Zofran 4 mg IV Magnesium sulfate 1 g IV K rider 10 mEq IV Thiamine 100 mg IV Folic acid 1 mg IV ROS: Patient endorses fever (2 nights ago; resolved), epigastric pain, pleuritic CP, SOB at rest and with exertion, right sided back pain, N/V/D, and neuropathy in the left arm. Patient denies chills, night-sweats, blood in the urine, hematochezia (resolved during last hospitalization), burning with urination, dysuria, and melena. Discharge Exam General: NAD, VS as above, appears better than I have seen her on prior admission Resp: normal respiratory effort, lungs clear to auscultation CV: RRR, no murmur, Abd: normal bowel sounds, non tender, no hepatosplenomegaly Extremities: Moves all extremities, no edema Neuro: A&O x3, Skin: intact, no lesions noted Discharge Plan Discharge Items Patient Disposition: Home - Self-Care Reason For Visit: INTRACTABLE N/V, BACK PAIN, PLEURITIC CP Discharge Diagnosis: chronic GI pain Condition on Discharge: Good Activity: Resume your previous activity Non-emergency contact: Primary Care Provider Call non-emergency contact if: you have any medication questions and your pain is worsening Follow-up/Referrals: Radha Alicea MD [Primary Care Provider] - (keep appointment scheduled tomorrow ) Diet: Regular Addtl Attending Provider Instructions: Kenrickrmhina, You were hospitalized after having worsening of your chronic GI pain with associated pleuritic lung pain. Thankfully, your scans did not show any blood clot in your lungs or any other acute abnormalities. You were seen by the GI team here who unfortunately does not have much more to offer you and agreed with the referral to [facility]. You should continue to go through that process. We discussed different life style modifications that can help you manage your gastroparesis at home until you are able to see the specialist. This includes: - Mixing erythromycin with juice so that you are able to take it before meals - walking after meals to help promote digestion, even with for 10 minutes - Not eating for 2 hours before bed/lying flat - Smaller meals are going to be more tolerated with your gastroparesis - keep a food diary to see if there are trigger foods that make your symptoms worse and try to avoid these - continue to cut back and eventually reach marijuana cessation - tobacco sensation will also help your symptoms I understand your frustration with your disease process and this probably feels like a Band-Aid to your chronic problem but unfortunately we do not have the specialist care to provide you in this area. Please keep your PCP appointment tomorrow. no changes to your home medications. Take care! Pending Studies at Discharge: Yes ( Celiac testing) Stand-Alone Forms: My [facility] [employer], Work/School Release, Smoking Cessation Medications and DC Order Prescriptions: Continued Creon 36,000-114,000- 180,000 unit capsule,delayed release(DR/EC) 3 cap PO TID 90 Days Qty: 810 3RF Rx Instructions: With meals mecobalamin (vitamin B12) [B12 Active] 1,000 mcg tablet,chewable 1,000 mcg PO QAM Qty: 100 0RF Eliquis 5 mg tablet 5 mg PO BID Qty: 90 3RF gabapentin 600 mg tablet 600 mg PO TID 30 Days Qty: 90 3RF folic acid 1 mg tablet 1 mg PO DAILY Qty: 90 3RF baclofen 20 mg tablet 20 mg PO TID PRN (Reason: neck pain/muscle spasm) Qty: 270 3RF albuterol sulfate [Ventolin HFA] 90 mcg/actuation HFA aerosol inhaler 2 puff inhalation Q4H PRN (Reason: cough/wheeze/shortness of breath) Qty: 1 0RF methocarbamol 750 mg tablet 750 mg PO TID PRN (Reason: pain) Qty: 90 1RF clonazepam 0.5 mg tablet 0.25 mg PO BID PRN (Reason: anxiety) 28 Days Qty: 22 0RF Rx Instructions: 4wk supply oxycodone 5 mg tablet 5 mg PO Q8H PRN (Reason: pain) 14 Days Qty: 42 0RF (DME) TENS unit and electrodes Combo Pack See Rx Instructions .Route Qty: 1 0RF Rx Instructions: As directed pantoprazole 40 mg tablet,delayed release (DR/EC) 40 mg PO BID Qty: 180 3RF sumatriptan succinate 100 mg tablet 100 mg PO DAILY PRN (Reason: migraine/headache) Qty: 20 3RF Rx Instructions: TAKE 1 TABLET BY MOUTH NEEDED FOR MIGRAINE/HEADACHE. MAY REPEAT 1 DOSE AFTER 1-2 HOURS Mirena 21 mcg/24hr (up to 8 yrs) 52 mg intrauterine device 1 device intrauterine DIRECTED clindamycin phosphate 1 % gel 1 applic topical DAILY PRN (Reason: Acne) Rx Instructions: APPLY TOPICALLY DAILY FOR ACNE cholecalciferol (vitamin D3) 250 mcg (10,000 unit) capsule 250 mcg PO QAM clotrimazole-betamethasone 1-0.05 % Cream 1 applic EXT BID Qty: 30 0RF Rx Instructions: apply in thin amounts to rash on chest wall; stop after 5-7 days. erythromycin ethylsuccinate [E.E.S. Granules] 200 mg/5 mL Suspension For Reconstitution 200 mg PO AC 30 Days Qty: 450 0RF promethazine 25 mg tablet 25 mg PO Q6H PRN (Reason: nausea and vomiting) Qty: 12 0RF No Action ondansetron 4 mg tablet,disintegrating 4 mg PO Q6H PRN (Reason: Nausea And Vomiting) 30 Days Qty: 60 2RF Rx Instructions: TAKE 1 TABLET BY MOUTH EVERY 6 HOURS NEEDED FOR NAUSEA Discharge Orders: Discharge Order (Routine); Ordered 12/23/24 Ordered By: Anai Figueroa Admission Data Admit Date/Time: 12/22/24 16:28 Attending Provider: Camilo Guajardo Admit Provider: Enrique Myers Primary Care Provider: Radha Alicea Other Providers: Jeremías May Other Interventions: Discharge Summary Assessment (RN) Last Done: 12/23/24 15:09 Hospital Stay Data Consultations 12/22/24 15:43 ED Decision to Admit Stat 12/22/24 16:30 Consult Gastroenterology Routine Diagnostic Imagining Performed Abdomen/Pelvis CT 12/22/24 12:[address] WITH IV CONTRAST CT DOSE: 807.87 mGy.cm HISTORY: Acute right chest and upper abdominal pain Upper abd pain, chest pain, R back/flank pain TECHNIQUE: Multiaxial CT images of the abdomen and pelvis were performed following the IV administration of 117 cc of Optiray, A dose lowering technique was utilized adhering to the principles of ALARA. COMPARISON STUDY: CT chest of same day, CT abdomen and pelvis 11/25/2024 FINDINGS: CTA chest dictated separately. Left hemidiaphragm elevation with bibasilar atelectasis. There is no pneumatosis or pneumoperitoneum. Unremarkable spleen, and right adrenal gland. Stable 8 mm hypodense left adrenal gland lesion suggestive of a probable adenoma. Hepatic steatosis with mild hepatomegaly. Chol ecystectomy. There is patency of the hepatic and portal veins. Unchanged uncinate process calcifications of the pancreas suggestive of chronic pancreatitis. Equivocal stranding adjacent to the uncinate process is similar to prior. Nonobstructing calculus inferior pole left kidney measure up to 4 mm. 3 mm nonobstructing right renal calculus. Urinary bladder wall thickening with partial distention. IUD within the mid uterus. Atherosclerosis of the aorta. No lymphadenopathy. Wall thickening with partial distention of the stomach. There is diffuse wall thickening throughout the large bowel and rectum is partially fluid-filled. Noninflamed appendix. Normal small bowel. No acute fracture. IMPRESSION: 1. Findings compatible with a nonspecific pancolitis, likely infectious or inflammatory. 2. No bowel obstruction or pneumoperitoneum. 3. Evidence of chronic pancreatitis. 4. Nonobstructing bilateral nephrolithiasis. ACT 112: Negative or not required by law. The above report was generated using voice recognition software. It may contain grammatical, syntax or spelling errors. Electronically signed by: Zachary Amezcua M.D. 12/22/2024 3:26 PM Chest CTA 12/22/24 12:39 CT angio chest PE protocol CT DOSE: 808 HISTORY: Upper abd pain, chest pain, R back/flank pain. TECHNIQUE: Multiple CTA images of the chest were obtained after the intravenous administration of 120 ml Optiray. Coronal and sagittal MIPS were obtained from the axial data set and were submitted for review. All measurements were obtained according to NASCET criteria. A dose lowering technique was utilized adhering to the principles of ALARA. COMPARISON STUDY: 07/03/2023 FINDINGS: There is minimally increased groundglass and reticular opacity inferiorly at the left lower lung lobe, scarring/atelectasis or mild pneumonitis. No other pulmonary consolidation, pleural effusion, or pneumothorax. No enlarged adenopathy. No pericardial effusion. No thoracic ao rtic dissection or aneurysm. No pulmonary embolism. No acute osseous findings seen. IMPRESSION: 1. No pulmonary embolism seen. 2. Otherwise as described. ACT 112: Negative or not required by law. The above report was generated using voice recognition software. It may contain grammatical, syntax or spelling errors. Electronically signed by: Kevin Knox M.D. 12/22/2024 3:19 PM Pending Results Patient Have Any Pending Studies at Discharge: Yes ( Celiac testing) Discharge Instructions Given to Patient (Per Discharging Provider) Deena, You were hospitalized after having worsening of your chronic GI pain with associated pleuritic lung pain. Thankfully, your scans did not show any blood clot in your lungs or any other acute abnormalities. You were seen by the GI team here who unfortunately does not have much more to offer you and agreed with the referral to [facility]. You should continue to go through that process. We discussed different life style modifications that can help you manage your gastroparesis at home until you are able to see the specialist. This includes: - Mixing erythromycin with juice so that you are able to take it before meals - walking after meals to help promote digestion, even with for 10 minutes - Not eating for 2 hours before bed/lying flat - Smaller meals are going to be more tolerated with your gastroparesis - keep a food diary to see if there are trigger foods that make your symptoms worse and try to avoid these - continue to cut back and eventually reach marijuana cessation - tobacco sensation will also help your symptoms I understand your frustration with your disease process and this probably feels like a Band-Aid to your chronic problem but unfortunately we do not have the specialist care to provide you in this area. Please keep your PCP appointment tomorrow. no changes to your home medications. Take care! Supervising Physician Co-Signing Physician Notes Attending Attestation & Discharge Note: Chart reviewed in detail, care plan d/w JOJO Figueroa. I agree w/ the hammonds components of her discharge documentation. Of note - I did not perform a bedside visit or perform physical exam on day of discharge. 43yo female with h/o of alcohol abuse in remission, chronic pancreatitis, prior portal vein thrombosis on Eliquis, tobacco abuse, medical marijuana use, gastroparesis, and chronic pain syndrome. Presented nausea/emesis/diarrhea x 2 months with acute worsening of right lower back pain, epigastric pain, and pleuritic chest pain x 2 days. CTA chest was negative for PE or aortic dissection despite the pleuritic chest pain. CT a/p showed a nonspecific pancolitis. This finding has been seen on multiple CTs dating back to 2023. [facility] was consulted regarding her acute/chronic GI symptoms and the abnormal CT a/p finding of pancolitis. Per [facility] she has been previously counseled by other non-[facility] providers in 2022 and 2023 to have colonoscopy. By report she had declined to have colonoscopy despite recommendations to undergo one. Further, she was scheduled to have outpatient colonoscopy via the [facility] system in November 2024 but this did not take place. [facility] sent a celiac panel and this returned negative. Patient was restarted on erythromycin for her gastroparesis. She was encouraged to take such as it has given her efficacy in the past. QTc on EKG this admission was 430msec. She will need to f/u with either [facility] or [facility] to reschedule her colonoscopy in the very near-future. In addition, she has an appt scheduled with [facility] specialty GI in February 2025 for her complex GI issues. Camilo Guajardo MD Total Time Total Time Spent Total Time Spent (In Minutes): Time spent day of discharge 50 minutes including direct patient care, medication reconciliation, documentation, review of labs and images, and coordination of care. discussed case with ONDINA Thomas BUFFY Coding Level of Care Code 61124 INP/OBS DISCH >30 MIN Diagnoses Pancolitis K51.00 Nausea & vomiting R11.2 Intractable abdominal pain R10.9
[2024-12-23 15:12] VITALS: BP 128/89; PULSE 82; O2SAT 99
[2024-12-25 02:22] LABS: IgA Serum 391 mg/dL (47-310); Tis Trans IgA <1.0 U/mL
== END 2024-12-23 15:40 | disposition home or self-care (01) ==
LOC: ED 11:51 → SUATTDRO 16:28 → EDINP 16:28 → INTOOBSV 16:28 → EDINP 19:11

== ENCOUNTER 2025-04-01 05:14 | Observation (INO) ==
--- NOTE | 2025-04-01 05:45 | Emergency Department Note ---
Impression & Plan Acute pancreatitis, Intractable abdominal pain, Intractable vomiting with nausea, Elevated LFTs ED Provider Note Name: ADA DYSON Age: 44 Sex: Female Arrives Via: Walk-In Informant: Patient ED Provider: Jesse Leach MD Chief Complaint: Abdominal pain Impression: As per impressions above Medical Decision Makin-year-old female with longstanding abdominal pain arrives for evaluation of severe epigastric pain vomiting and inability to keep down medications or food or fluids for the last week. She is severely uncomfortable on arrival and does have tenderness palpation over the epigastrium. Review of chart reveals extensive workup for this many times in the past with almost 15 CTs of the abdomen pelvis within the last 2 years. IV was established she was given some IV fluids along with medications for nausea and pain. She was given a further dose of IV pain medication as minimal improvement from first round of medications. Laboratory workup revealing somewhat increased white blood cell count. I will note that she had a colitis on the first CT 2 weeks ago and did have some diarrhea which she states has persisted. Symptoms though are more epigastric rather than diffuse Labs reveal elevated lipase from baseline. I do feel this is likely acute pancreatitis given her symptoms. She also does have some diffuse elevation of LFTs. This is consistent with recurrent repetitive vomiting and her dehydration status. Bilirubin is somewhat elevated but she has bumped it previously and in this setting I am not convinced that this would represent truly obstructive pathology. Triage/Nursing Notes reviewed by Me External Chart Review by me: I reviewed a PCP note from 03/21/2025 reviewing patient's past medical history and recent history as well. Differential:Pancreatitis, gastritis, gastroparesis, ischemia, obstruction, pancreatitis, biliary pathology, multiple other pathologies considered Vital Signs: reviewed and remarkable for tachycardia Interventions: Normal saline bolus 1 L IV, morphine IV x 2, Compazine IV, Benadryl IV, Zofran IV Labs:ED labs Reviewed by me and remarkable for elevated white blood cell count along with elevated LFTs and lipase. Consults:Dr. Guajardo of the [facility] service who will further evaluate and manage Plan: Disposition:Hospitalization. Condition: Good History of Present Illness: 44-year-old female arrives for evaluation epigastric pain. Patient with long history gastroparesis and gastritis. She notes she was hospitalized 2 weeks ago for severe symptoms. After going home she started vomiting shortly thereafter. She notes she has been having epigastric pain and vomiting since then. Unable to keep down even Pedialyte at this point. Unable to keep down any medications due to vomiting. Due to worsening pain, lightheadedness with standing, weakness, patient arrives to the ER for further evaluation. Past Medical History:See Below Home Medications:See Below Allergies:See Below -though states she can tolerate morphine Vitals:Blood Pressure: 125/88, Pulse 134, RR 18, T 36.4C, O2 100% on RA Physical Exam: GENERAL: Patient is severely uncomfortable appearing and in severe distress. Writhing on the bed RESPIRATORY: No dyspnea. Clear to auscultation and equal bilaterally. CARDIOVASCULAR: Tachy.No murmur appreciated. GASTROINTESTINAL: Epigastric tenderness to palpation BACK: No midline tenderness, no CVA tenderness EXTREMITIES: Normal motion all extremities, no cyanosis, no edema. NEUROLOGIC: Alert and oriented. No focal neurologic deficits appreciated SKIN: No rash, no jaundice, no diaphoresis. PSYCH: Appropriate GCS: 15 ED Course: Times/Reassessments: Gradually improving and pain agreeable to hospitalization. Jesse Leach MD Past Med/Surg History Problem List (Updated 04/01/25 @ 07:35 by Jesse Leach MD) Elevated LFTs (Acute) Intractable vomiting with nausea (Acute) Intractable abdominal pain (Acute) Acute pancreatitis (Acute) Acute colitis Acute dehydration (Acute) Hypomagnesemia (Acute) Intractable nausea and vomiting (Acute) Calcific tendinitis of right shoulder Cannabinoid hyperemesis syndrome Hypocalcemia (Acute) Hypomagnesemia (Acute) Hypokalemia (Acute) Pancolitis (Acute) Tobacco abuse Leukocytosis Hematochezia Intractable abdominal pain Nausea & vomiting (Acute) History of gastritis History of alcohol abuse Restless leg syndrome Medical marijuana use Chronic prescription opiate use Chronic prescription benzodiazepine use Chronic abdominal pain (Acute) Chronic pain syndrome Right ankle sprain Tendinitis of both rotator cuffs Intertrigo Gastroparesis Low serum cortisol level Other cervical disc degeneration at C6-C7 level Degeneration of thoracolumbar intervertebral disc T12-L1 Other cervical disc degeneration at C5-C6 level Elevated hemidiaphragm Generalized anxiety disorder with panic attacks Portal vein thrombosis (~2019) Gastritis Dental decay Chronic pancreatitis (Acute) Per records Hiatal hernia (Chronic) Medical History Medical marijuana use Chronic pancreatitis Chronic abdominal pain Portal vein thrombosis (2019) on eliquis Gastroparesis per pt is severe, following with Harjinder Longoria Pancreatic pseudocyst Pancolitis Adjustment disorder with depressed mood Per records History of seizure due to alcohol withdrawal 2020, "from either alcohol or clonazepam" PTSD (post-traumatic stress disorder) Hx of migraines Iron deficiency anemia Insomnia Hiatal hernia Nocturnal hypoxia Noted during previous hospitalizations per patient, plan for future sleep study (not scheduled until 07/2024 per patient) Degeneration of thoracolumbar intervertebral disc History of colitis Cervical radiculopathy Cervical spondylosis Anxiety and depression Tendinitis of right rotator cuff Ongoing Acne Cream every 4-6 months GERD (gastroesophageal reflux disease) Panic attacks hx Peptic ulcer disease hx Surgical History H/O oral surgery History of breast biopsy History of esophagogastroduodenoscopy (EGD) History of cholecystectomy History of tooth extraction History of lumpectomy of right breast Family History Father Family history of diabetes mellitus Myocardial infarction Hypertension Stroke Grandfather (Maternal) Family history of diabetes mellitus Grandmother (Maternal) Family history of diabetes mellitus Cancer Hypertension Mother Hypothyroidism Grandfather (Paternal) Heart problem Cancer Grandmother (Paternal) Hypertension Other No family history of adverse response to anesthesia Denies family history of Ovarian cancer Prostate cancer Breast cancer Colorectal cancer Social History Smoking Status: Current every day smoker Tobacco Type: Cigarettes Age Started Using Tobacco: 15; packs per day: 0.5; Cigarettes Per Day: <1ppd; Second Hand Exposure: No; Do You Dip or Chew Tobacco: No; Hx Alcohol Use: No Hx Substance Use: No Preferred Language: French Communication Ability: Effective Visual Impairment: No Limitations Hearing Ability: Normal Water Conservationist Required: No Beliefs That Will Affect Care: None marital status: Single Current Living Situation: Parent Current Living Situation Comment: family, mother current occupational status: employed current occupation: at [employer] How many Children do You have: 0 Feels Safe at Home: Yes Childhood Exposure to Second-Hand Smoke: No Diet: regular Diet Comment: regular Dental Care, Regularly: Yes Physical Activity Frequency: Does not Exercise Seatbelt Use: always Sunscreen Use: Yes Do you think of yourself as: straight/heterosexual Assistive Devices: Denture - Upper Allergies Allergies Allergy/AdvReac Type Severity Reaction Status Date / Time buspirone [From BuSpar] Allergy Severe Unconscious, Verified 03/21/25 09:28 seizures quetiapine [From Seroquel] Allergy Severe Unconscious, Verified 03/21/25 09:28 seizures capsaicin AdvReac Intermediate Redness of Verified 03/21/25 09:28 Skin citalopram [From Celexa] AdvReac Intermediate Vomiting Verified 03/21/25 09:28 morphine AdvReac Intermediate Vomiting Verified 03/21/25 09:28 vilazodone [From Viibryd] AdvReac Intermediate Vomiting Verified 03/21/25 09:28 metoclopramide AdvReac Unknown "Twitchy" Verified 03/21/25 09:28 Home Meds Home Medications Medication Instructions Recorded Confirmed cholecalciferol (vitamin D3) 250 250 mcg PO QAM 08/18/23 03/21/25 mcg (10,000 unit) capsule levonorgestrel 21 mcg/24 hr (up to 1 device intrauterine DIRECTED 08/16/24 03/21/25 8 years) 52 mg intrauterine device (Mirena) folic acid 1 mg tablet 1 mg PO QAM 02/17/25 03/21/25 Previous Rx's Medication Instructions Recorded mecobalamin (vitamin B12) 1,000 1,000 mcg PO QAM #100 tabs 01/20/24 mcg chewable tablet (B12 Active) pantoprazole 40 mg tablet,delayed 40 mg PO BID #180 tabs 10/11/24 release baclofen 20 mg tablet 20 mg PO TID PRN neck pain/muscle 10/20/24 spasm #270 tabs ondansetron 4 mg disintegrating 4 mg PO Q6H PRN Nausea And 12/23/24 tablet Vomiting 30 days #60 tabs [id number]-vkfjbpja-xrwlwed 3 cap PO TID Abdominal Discomfort 01/07/25 36,000-114,000-180,000 unit 90 days #810 caps capsule,delay rel (Creon) apixaban 5 mg tablet (Eliquis) 5 mg PO BID #90 tabs 01/12/25 peg 3350-sod sulf,holfl-bpa-ogw See Rx Instructions PO .COMPLEX #2 01/28/25 178.7-7.3-0.5-1.12-0.9 gram oral mL soln (Suflave) sumatriptan succinate 100 mg tablet 100 mg PO DAILY PRN 02/03/25 migraine/headache #20 tabs fluoxetine 60 mg tablet 60 mg PO DAILY #30 tabs 03/07/25 gabapentin 600 mg tablet 600 mg PO TID PRN Pain #90 tabs 03/11/25 clonazepam 0.5 mg tablet 0.25 mg (1/2 x 0.5 mg) PO BID PRN 03/15/25 anxiety 28 days #22 tabs prednisone 10 mg tablet See Rx Instructions .Route 03/20/25 .COMPLEX #12 tabs oxycodone 5 mg tablet 5 mg PO TID PRN pain 2 weeks #32 03/28/25 tabs methocarbamol 750 mg tablet 750 mg PO TID PRN pain #90 tabs 03/30/25 promethazine 25 mg tablet 25 mg PO Q6H PRN nausea and 03/31/25 vomiting #12 tabs Results & Data (ED) Vital Signs Vital Signs - 24 hr 04/01/25 05:19 04/01/25 07:15 Temperature 36.4 C L Temperature Source Temporal Artery Scan Pulse Rate 134 H Pulse Rate [Finger] 99 H Pulse Rhythm [Finger] Regular Respiratory Rate 18 18 Respiratory Effort / Characteristics Non-Labored Spontaneous Non-Labored Spontaneous Respiratory Depth Normal Normal Respiratory Pattern Regular Regular Blood Pressure 125/88 Blood Pressure [Right Arm] 120/93 Blood Pressure Mean 100 Blood Pressure Mean [Right Arm] 102 Blood Pressure Position Sitting Blood Pressure Position [Right Arm] Sitting Pulse Oximetry 100 99 Oxygen Delivery Method Room Air Sepsis Recent Fever Within 48 Hours No Sepsis New/Unexplained Change in Mental Status N/A Sepsis Action Taken by Nursing No Action Required Laboratory Data 04/01/25 06:01 04/01/25 06:01 Lab Results 04/01/25 Range/Units 06:01 WBC 15.88 H (4.8-10.8) K/ul RBC 4.93 (4.20-5.40) M/uL Hgb 15.2 (12.0-16.0) g/dl Hct 42.8 (37.0-47.0) % MCV 86.8 (80.0-100.0) fL MCH 30.8 (25.0-34.0) pg MCHC 35.5 (32.0-36.0) g/dL RDW Std Deviation 47.0 H (36.4-46.3) fL RDW Coeff of Jessica 14.7 H (11.5-14.5) % Plt Count 465 H (130-400) K/uL MPV 9.3 L (9.4-12.4) fL Immature Gran % (Auto) 0.4 % Neut % (Auto) 85.9 % Lymph % (Auto) 8.2 % Briscoe % (Auto) 5.3 % Eos % (Auto) 0.0 % Baso % (Auto) 0.2 % Neut # (Auto) 13.65 H (1.40-6.50) K/uL Lymph # (Auto) 1.30 (1.20-3.40) K/uL Briscoe # (Auto) 0.84 H (0.11-0.59) K/uL Eos # (Auto) 0.00 (0.00-0.50) K/uL Baso # (Auto) 0.03 (0.00-0.20) K/uL Immature Gran # (Auto) 0.06 (0.01-0.20) K/uL PT 10.9 (9.0-12.0) Seconds INR 1.0 (0.9-1.1) APTT 29 (21-31) Seconds PTT Ratio 1.1 Sodium 136 (136-145) mmol/L Potassium 3.1 L (3.5-5.1) mmol/L Chloride 98 (98-107) mmol/L Carbon Dioxide 23 (21-32) mmol/L Anion Gap 15 H (3-11) BUN 17 (6-23) mg/dl Creatinine 0.66 (0.6-1.2) mg/dl Est Cr Clr Drug Dosing 87.7 ml/min eGFR 110.17 BUN/Creatinine Ratio 25.8 H (10-20) Glucose 142 H (70-99(Fasting)) mg/dl Calcium 8.8 (8.6-10.3) mg/dl Magnesium 1.6 L (1.7-2.4) mg/dl Total Bilirubin 1.9 H (0.2-1.0) mg/dl AST 140 H (13-39) U/L ALT 67 H (7-52) U/L Alkaline Phosphatase 162 H (34-104) U/L Total Protein 6.6 (6.0-8.3) gm/dl Albumin 4.1 (3.4-5.0) gm/dl Globulin 2.5 (2.5-4.0) gm/dl Albumin/Globulin Ratio 1.6 (0.9-2) Amylase 61 (25-115) U/L Lipase 350 H (11-82) U/L HCG, Qual Negative (Negative) Ethyl Alcohol mg/dL < 10.0 (<10.0) mg/dl Administered Medications Discontinued Medications Diphenhydramine HCl (Diphenhydramine 50 Mg/Ml Vial) 50 mg IV NOW STA Stop: 04/01/25 05:42 Last Admin: 04/01/25 06:03 Dose: 50 mg Documented By: MARBELLA Prochlorperazine (Compazine) 1 mls @ 1 mls/min IV ONE ONE Stop: 04/01/25 05:42 Last Admin: 04/01/25 06:03 Dose: 1 mls/min Documented By: MARBELLA Sodium Chloride (Nss) 1,000 mls @ 999 mls/hr IV .Q1H1M ONE Stop: 04/01/25 06:42 Last Infusion: 04/01/25 07:26 Dose: Infused Documented By: Admin: 04/01/25 06:04 Dose: 999 mls/hr Documented By: MARBELLA Morphine Sulfate (Morphine Sulfate 4 Mg/Ml 1 Ml Carp\\Vial) 4 mg IV NOW STA Stop: 04/01/25 05:42 Last Admin: 04/01/25 06:03 Dose: 4 mg Documented By: MARBELLA Morphine Sulfate (Morphine Sulfate 10 Mg/Ml Carp/Vial) 6 mg IV NOW STA Stop: 04/01/25 06:20 Last Admin: 04/01/25 06:39 Dose: 6 mg Documented By: DAVIS Ondansetron HCl (Ondansetron Inj 2 Mg/Ml 2 Ml Vial) 4 mg IV NOW STA Stop: 04/01/25 06:20 Last Admin: 04/01/25 06:39 Dose: 4 mg Documented By: DAVIS Discharge Plan Visit Data Chief Complaint: GI Assessment Stated Complaint: TROUBLE BREATHING,VOMITING ED Provider: Jesse Leach Discharge Problem: Acute pancreatitis, Intractable abdominal pain, Intractable vomiting with nausea, Elevated LFTs Patient Disposition: Admitted As Inpatient Condition: Fair Forms Stand Alone Forms: My [facility] Prescriptions Prescriptions: No Action mecobalamin (vitamin B12) [B12 Active] 1,000 mcg tablet,chewable 1,000 mcg PO QAM Qty: 100 0RF baclofen 20 mg tablet 20 mg PO TID PRN (Reason: neck pain/muscle spasm) Qty: 270 3RF ondansetron 4 mg tablet,disintegrating 4 mg PO Q6H PRN (Reason: Nausea And Vomiting) 30 Days Qty: 60 2RF Rx Instructions: TAKE 1 TABLET BY MOUTH EVERY 6 HOURS NEEDED FOR NAUSEA Creon 36,000-114,000- 180,000 unit capsule,delayed release(DR/EC) 3 cap PO TID 90 Days Qty: 810 3RF Rx Instructions: With meals Eliquis 5 mg tablet 5 mg PO BID Qty: 90 3RF Suflave 178.7-7.3-0.5 gram recon soln See Rx Instructions PO .COMPLEX Qty: 2 0RF Rx Instructions: orally; orally; TAKE FIRST DOSE AT 6 PM AND SECOND DOSE 6 HOURS PRIOR TO PROCEDURE BIN: [id number] N: 2000 GROUP: [id number] gabapentin 600 mg tablet 600 mg PO TID PRN (Reason: Pain) Qty: 90 0RF clonazepam 0.5 mg tablet 0.25 mg PO BID PRN (Reason: anxiety) 28 Days Qty: 22 0RF Rx Instructions: 4wk supply oxycodone 5 mg tablet 5 mg PO TID PRN (Reason: pain) 14 Days Qty: 32 0RF methocarbamol 750 mg tablet 750 mg PO TID PRN (Reason: pain) Qty: 90 1RF promethazine 25 mg tablet 25 mg PO Q6H PRN (Reason: nausea and vomiting) Qty: 12 0RF pantoprazole 40 mg tablet,delayed release (DR/EC) 40 mg PO BID Qty: 180 3RF fluoxetine 60 mg tablet 60 mg PO DAILY Qty: 30 11RF Mirena 21 mcg/24hr (up to 8 yrs) 52 mg intrauterine device 1 device intrauterine DIRECTED sumatriptan succinate 100 mg tablet 100 mg PO DAILY PRN (Reason: migraine/headache) Qty: 20 3RF Rx Instructions: TAKE 1 TABLET BY MOUTH NEEDED FOR MIGRAINE/HEADACHE. MAY REPEAT 1 DOSE AFTER 1-2 HOURS cholecalciferol (vitamin D3) 250 mcg (10,000 unit) capsule 250 mcg PO QAM folic acid 1 mg tablet 1 mg PO QAM prednisone 10 mg tablet See Rx Instructions .ROUTE .COMPLEX Qty: 12 0RF Rx Instructions: 10 mg orally 3 times a day for 2 days, then 10 mg twice a day for 2 days, then 10 mg once a day for 2 days, then stop Referrals Referrals: Radha Alicea MD [Primary Care Provider] - Discharge Problem: Acute pancreatitis Qualifiers: Pancreatitis type: unspecified pancreatitis type Acute pancreatitis complication: unspecified Qualified Code(s): K85.90 - Acute pancreatitis without necrosis or infection, unspecified
[2025-04-01] MEDS: PROCHLORPERAZINE 1 ML IV ONE (06:03)
[2025-04-01] MEDS: diphenhydrAMINE 50 MG/ML VIAL IV STA (06:03)
[2025-04-01] MEDS: MoRPHine SULFATE 4 MG/ML 1 ML CARP\\VIAL IV STA (06:03)
[2025-04-01] MEDS: SODIUM CHLORIDE 0.9% 1,000 ML IV ONE (06:04)
[2025-04-01 06:29] LABS: Hematocrit (blood only) 42.8 % (37.0-47.0); Hemoglobin 15.2 g/dl (12.0-16.0); Immature Granulocytes # (auto) 0.06 K/uL (0.01-0.20); Immature Granulocytes % (auto) 0.4 %; Mean Corpuscular Hemoglobin 30.8 pg (25.0-34.0); Mean Corpuscular Volume 86.8 fL (80.0-100.0); Platelet Count 465 K/uL (130-400); RDW Standard Deviation 47.0 fL (36.4-46.3); Red Blood Count 4.93 M/uL (4.20-5.40); White Blood Count 15.88 K/ul (4.8-10.8)
[2025-04-01] MEDS: ONDANSETRON INJ 2 MG/ML 2 ML VIAL IV STA (06:39)
[2025-04-01] MEDS: MoRPHine SULFATE 10 MG/ML CARP/VIAL IV STA (06:39)
[2025-04-01 06:52] LABS: Pregnancy Test, Serum Negative (Negative)
[2025-04-01 06:54] LABS: Alanine Aminotransferase 67.0 U/L (7-52); Albumin Globulin Ratio 1.6 (0.9-2); Alkaline Phosphatase 162.0 U/L (34-104); Amylase 61.0 U/L (25-115); Anion Gap 15.0 (3-11); Bilirubin,Total 1.9 mg/dl (0.2-1.0); Blood Urea Nitrogen 17.0 mg/dl (6-23); Calcium 8.8 mg/dl (8.6-10.3); Carbon Dioxide 23.0 mmol/L (21-32); Chloride 98.0 mmol/L (98-107); Creatinine Clr Calc Pharmacy 87.7 ml/min; Globulin 2.5 gm/dl (2.5-4.0); Glucose 142.0 mg/dl (70-99(Fasting)); Lipase 350.0 U/L (11-82); Magnesium 1.6 mg/dl (1.7-2.4); Potassium 3.1 mmol/L (3.5-5.1); Sodium 136.0 mmol/L (136-145); Total Protein 6.6 gm/dl (6.0-8.3)
[2025-04-01 07:04] LABS: INR 1.0 (0.9-1.1); Partial Thromboplastin Time 29 Seconds (21-31); Prothrombin Time 10.9 Seconds (9.0-12.0)
[2025-04-01] MEDS ORDERED: MoRPHine SULFATE 10 MG/ML CARP/VIAL IV PRN (07:36)
[2025-04-01 07:49] LABS: Appearance Urine Clear (Clear); Bacteria Urine Automated 1+ (None Seen); Cast Urine Automated 0-2 /lpf (0-2); Glucose Urine UA Negative (Negative); WBC Urine Automated 0-5 /hpf (0-5)
--- NOTE | 2025-04-01 07:52 | History & Physical Report ---
Date of Service April 01, 2025 Assessment & Plan (1) Intractable vomiting with nausea: (2) Acute on chronic pancreatitis: (3) Elevated LFTs: (4) Acute dehydration: (5) Hypomagnesemia: (6) Hypokalemia: (7) Tobacco abuse: (8) History of alcohol abuse: (9) Medical marijuana use: (10) Gastroparesis: (11) Portal vein thrombosis: (12) Hx of migraines: (13) Candidiasis of mouth and esophagus: Plan 44yo female with history of chronic pancreatitis, prior alcohol dependence with abstinence since November 2023, chronic tobacco dependence, history of pancreatic pseudocyst, recent hospitalization in February 2025 for diarrhea/colitis, gastroparesis, PVT on Eliquis, and medical THC use who presents from home with refractory upper abdominal pain, nausea, emesis, diarrhea, and inability to eat/drink. Patient reports she was discharged on 03/20 from our hospital after having been diagnosed with colitis. She was eating/drinking normally for about 48 hours after getting home but then her GI symptoms returned - initially abdominal pain, followed by severe nausea with vomiting. #acute on chronic pancreatitis with abnormal LFTs - -patient reports abstinence from etoh since early 2023 -the elevated lipase with the elevated LFTs is concerning for passed gallstone or sludge vs bile duct stricture or narrowing vs pancreatic duct/pancreatic head abnormalities vs combo of factors vs other -her lipase has not been elevated in quite some time, and the same thing for her LFTs -plan: -NPO except meds -copious IV hydration (will use LR to start) -IV dilaudid prn -pepcid IV x 1 now followed by IV protonix 40mg BID -IV anti-emetics prn -just had CT a/p about 2 weeks ago, and has had numerous CTs over the last year - defer on repeat CT -will plan on MRCP now to exclude biliary obstruction and/or pancreatic duct abnormalities -GI consultation if MRCP is abnormal -repeat LFTs and lipase in AM #dehydration - -2nd to nausea/vomiting/diarrhea/poor PO intake -s/p IV fluid bolus in the ER; will start LR at 125ml/hr now -serial labs #recent hospitalization for mild colitis - -CT earlier in February with mild colitis -infectious work-up -- c diff + stool Biofire - all negative -diarrhea has improved since that time without specific Rx (took steroids but only briefly) -etiology uncertain #gastroparesis - -intolerant of reglan (TD side effects by report) -zofran/phenergan prn #h/o PVT - -as long as her MRCP does not show something that would require GI or surgical intervention will resume Eliquis 5mg BID later tonight #chronic medical THC use - noted #chronic tobacco dependence - -nicoderm patch daily #hypomagnesemia - -2nd to vomiting, diarrhea, and poor PO intake -IV mag sulfate 2gm IV x 1 -repeat level AM #hypokalemia - -replace with 30meq of IV KCL now -replace low mag -then will need KCL added to basal fluids -low K 2nd to vomiting, diarrhea, poor PO intake #recent cough, chest symptoms - -obtain 2-view CXR -obtain EKG -O2 sats noted to be normal; lung exam normal #DVT proph - -Eliquis 5mg BID #candidiasis of mouth - -nystatin solution 5ml QID swish/spit pt's mother updated at bedside History of Present Illness Chief Complaint: abdominal pain, nausea, vomiting, diarrhea, unable to eat/drink Primary Care Provider: Radha Alicea MD 44yo female with history of chronic pancreatitis, prior alcohol dependence with abstinence since November 2023, chronic tobacco dependence, history of pancreatic pseudocyst, recent hospitalization in February 2025 for diarrhea/colitis, gastroparesis, PVT on Eliquis, and medical THC use who presents from home with refractory upper abdominal pain, nausea, emesis, diarrhea, and inability to eat/drink. Patient reports she was discharged on 03/20 from our hospital and was eating/drinking normally for about 48 hours after getting home. However, her GI symptoms then returned - initially abdominal pain, then ultimately nausea with vomiting. The abdominal pain is in the high epigastric region and does radiate to the mid-back. Her recent diarrhea did improve after the February hospitalization. She was prescribed prednisone at time of hospital discharge but she did not complete the prednisone taper. She was to have a f/u appointment with [facility] [place] on 03/21 but unfortunately did not make it to that appointment. She was last able to eat & keep solids down earlier this week - probably about Friday. Last liquid intake that she kept down was about Friday. The vomiting became essentially constant since Friday and, given the concomitant abdominal pain, she came [facility] for evaluation early this am. Use of oxycodone at home provided NO pain relief the last few days. Denies any fevers. Denies any recent infectious symptoms/illness - although she had a recent cough for about 2 weeks that has resolved. Denies any alcohol intake since November 2023. Denies any recent change in her medicines. Allergies Allergy/AdvReac Type Severity Reaction Status Date / Time buspirone [From BuSpar] Allergy Severe Unconscious, Verified 03/21/25 09:28 seizures quetiapine [From Seroquel] Allergy Severe Unconscious, Verified 03/21/25 09:28 seizures capsaicin AdvReac Intermediate Redness of Verified 03/21/25 09:28 Skin citalopram [From Celexa] AdvReac Intermediate Vomiting Verified 03/21/25 09:28 morphine AdvReac Intermediate Vomiting Verified 03/21/25 09:28 vilazodone [From Viibryd] AdvReac Intermediate Vomiting Verified 03/21/25 09:28 metoclopramide AdvReac Unknown "Twitchy" Verified 03/21/25 09:28 Home Medications Medication Instructions Recorded Confirmed Type cholecalciferol (vitamin D3) 250 250 mcg PO QAM 08/18/23 04/01/25 History mcg (10,000 unit) capsule mecobalamin (vitamin B12) 1,000 1,000 mcg PO QAM #100 tabs 01/20/24 04/01/25 Rx mcg chewable tablet (B12 Active) levonorgestrel 21 mcg/24 hr (up to 1 device intrauterine DIRECTED 08/16/24 04/01/25 History 8 years) 52 mg intrauterine device (Mirena) pantoprazole 40 mg tablet,delayed 40 mg PO BID #180 tabs 10/11/24 04/01/25 Rx release baclofen 20 mg tablet 20 mg PO TID PRN neck pain/muscle 10/20/24 04/01/25 Rx spasm #270 tabs ondansetron 4 mg disintegrating 4 mg PO Q6H PRN Nausea And 12/23/24 04/01/25 Rx tablet Vomiting 30 days #60 tabs shktav-qnczbfof-cadcvzk 3 cap PO TID Abdominal Discomfort 01/07/25 04/01/25 Rx 36,000-114,000-180,000 unit 90 days #810 caps capsule,delay rel (Creon) apixaban 5 mg tablet (Eliquis) 5 mg PO BID #90 tabs 01/12/25 04/01/25 Rx peg 3350-sod sulf,[id number]-rwg-dmp See Rx Instructions PO .COMPLEX #2 01/28/25 04/01/25 Rx 178.7-7.3-0.5-1.12-0.9 gram oral mL soln (Suflave) sumatriptan succinate 100 mg tablet 100 mg PO DAILY PRN 02/03/25 04/01/25 Rx migraine/headache #20 tabs folic acid 1 mg tablet 1 mg PO QAM 02/17/25 04/01/25 History fluoxetine 60 mg tablet 60 mg PO DAILY #30 tabs 03/07/25 04/01/25 Rx gabapentin 600 mg tablet 600 mg PO TID PRN Pain #90 tabs 03/11/25 04/01/25 Rx clonazepam 0.5 mg tablet 0.25 mg (1/2 x 0.5 mg) PO BID PRN 03/15/25 04/01/25 Rx anxiety 28 days #22 tabs oxycodone 5 mg tablet 5 mg PO TID PRN pain 2 weeks #32 03/28/25 04/01/25 Rx tabs methocarbamol 750 mg tablet 750 mg PO TID PRN pain #90 tabs 03/30/25 04/01/25 Rx promethazine 25 mg tablet 25 mg PO Q6H PRN nausea and 03/31/25 04/01/25 Rx vomiting #12 tabs Past Med/Surg History Problem List (Updated 04/01/25 @ 23:41 by Camilo Guajardo MD) Candidiasis of mouth and esophagus Chronic alcoholic pancreatitis Elevated LFTs (Acute) Intractable vomiting with nausea (Acute) Intractable abdominal pain (Acute) Acute pancreatitis (Acute) Acute colitis Acute dehydration (Acute) Hypomagnesemia (Acute) Intractable nausea and vomiting (Acute) Calcific tendinitis of right shoulder Cannabinoid hyperemesis syndrome Hypocalcemia (Acute) Hypomagnesemia (Acute) Hypokalemia (Acute) Pancolitis (Acute) Tobacco abuse Leukocytosis Hematochezia Intractable abdominal pain Nausea & vomiting (Acute) History of gastritis History of alcohol abuse Restless leg syndrome Medical marijuana use Chronic prescription opiate use Chronic prescription benzodiazepine use Chronic abdominal pain (Acute) Chronic pain syndrome Right ankle sprain Tendinitis of both rotator cuffs Intertrigo Gastroparesis Low serum cortisol level Other cervical disc degeneration at C6-C7 level Degeneration of thoracolumbar intervertebral disc T12-L1 Other cervical disc degeneration at C5-C6 level Elevated hemidiaphragm Generalized anxiety disorder with panic attacks Portal vein thrombosis (~2019) Gastritis Dental decay Chronic pancreatitis (Acute) Per records Hiatal hernia (Chronic) Medical History Medical marijuana use Chronic pancreatitis Chronic abdominal pain Portal vein thrombosis (2019) on eliquis Gastroparesis per pt is severe, following with [facility] Pancreatic pseudocyst Pancolitis Adjustment disorder with depressed mood Per records History of seizure due to alcohol withdrawal 2020, "from either alcohol or clonazepam" PTSD (post-traumatic stress disorder) Hx of migraines Iron deficiency anemia Insomnia Hiatal hernia Nocturnal hypoxia Noted during previous hospitalizations per patient, plan for future sleep study (not scheduled until 07/2024 per patient) Degeneration of thoracolumbar intervertebral disc History of colitis Cervical radiculopathy Cervical spondylosis Anxiety and depression Tendinitis of right rotator cuff Ongoing Acne Cream every 4-6 months GERD (gastroesophageal reflux disease) Panic attacks hx Peptic ulcer disease hx Surgical History H/O oral surgery History of breast biopsy History of esophagogastroduodenoscopy (EGD) 2017 History of cholecystectomy History of tooth extraction History of lumpectomy of right breast "benign" Family History Father Family history of diabetes mellitus Myocardial infarction Hypertension Stroke Grandfather (Maternal) Family history of diabetes mellitus Grandmother (Maternal) Family history of diabetes mellitus Cancer Hypertension Mother Hypothyroidism Grandfather (Paternal) Heart problem Cancer Grandmother (Paternal) Hypertension Other No family history of adverse response to anesthesia Denies family history of Ovarian cancer Prostate cancer Breast cancer Colorectal cancer Social History Smoking Status: Current every day smoker Tobacco Type: Cigarettes Age Started Using Tobacco: 15; packs per day: 0.5; Cigarettes Per Day: 10-15; Second Hand Exposure: No; Do You Dip or Chew Tobacco: No; Hx Alcohol Use: No Hx Substance Use: Yes Last Used Substance: Hours (ago) Last Used Substance Other:: last used yesterday Substance Use Type Other:: medical card for sleep/anx Preferred Language: Luxembourgish Communication Ability: Effective Visual Impairment: No Limitations Hearing Ability: Normal Him Coder Required: No Beliefs That Will Affect Care: None marital status: Single Current Living Situation: Parent Current Living Situation Comment: home with mother and dog current occupational status: employed current occupation: at [employer] How many Children do You have: 0 Other Information That Helps Us Care for You: No Feels Safe at Home: Yes Safety Concerns: Feels Safe At This Time Childhood Exposure to Second-Hand Smoke: No Diet: regular Diet Comment: regular Dental Care, Regularly: Yes Physical Activity Frequency: Does not Exercise Seatbelt Use: always Sunscreen Use: Yes Do you think of yourself as: straight/heterosexual Assistive Devices: Denture - Upper Assistive Devices Comment: dentures at home Review of Systems Review of Systems: gen - no fevers or chills; small amount of weight loss since last hospitalization; unable to eat/drink eyes - some visual changes with her last migraine (earlier this week) HENT - very dry mucous membranes, no URI symptoms neck - chronic neck pain CV - lower chest discomfort near the junction with the epigastric region; no edema pulm - recent cough - now resolved; no dyspnea GI - no hematemesis, no coffee-ground emesis; ongoing abdominal pain for several weeks; ongoing diarrhea but somewhat improved; nausea/vomiting; no blood in stool; no melena stool - no dysuria musculo - no joint pains skin - no rash endo - no diabetes neuro - headache (migraine) this week on Friday - takes imitrex prn for such Physical Exam Physical Exam: gen - uncomfortable appearing; awake/alert; looks thin, chronically unwell & malnourished eyes - PERRL HENT - MM very dry, thrush plaques on buccal mucosa; edentulous neck - no JVD, no lymph nodes heart - tachy, s1 s2, no murmur lungs - CTA b/l, no rales, no wheeze abd - soft, tender epigastric region, BS+, mildly tender RUQ at junction with high epigastric region; nontender lower quadrants; ND; no peritoneal signs ext - no edema, pulses b/l feet 2+ b neuro - no facial droop; strength 5/5 x 4 exts; DTRs 2+ b/l upper & lower exts skin - no rash, no jaundice psych - a/o x 3 musculo - no joint synovitis Results & Data Results & Data Vital Signs (Past 12 Hours) Vital Signs Temp Pulse Pulse Resp BP BP Pulse Ox 04/01/25 07:15 99 H 18 120/93 99 04/01/25 05:19 36.4 C L 134 H 18 125/88 100 O2 Del Method 04/01/25 07:15 Room Air 04/01/25 05:19 Laboratory Results Laboratory Results - last 24 hr 04/01/25 04/01/25 06:01 07:35 WBC 15.88 H RBC 4.93 Hgb 15.2 Hct 42.8 MCV 86.8 MCH 30.8 MCHC 35.5 RDW Std Deviation 47.0 H RDW Coeff of Jessica 14.7 H Plt Count 465 H MPV 9.3 L Immature Gran % (Auto) 0.4 Neut % (Auto) 85.9 Lymph % (Auto) 8.2 [place] % (Auto) 5.3 Eos % (Auto) 0.0 Baso % (Auto) 0.2 Neut # (Auto) 13.65 H Lymph # (Auto) 1.30 [place] # (Auto) 0.84 H Eos # (Auto) 0.00 Baso # (Auto) 0.03 Immature Gran # (Auto) 0.06 PT 10.9 INR 1.0 APTT 29 PTT Ratio 1.1 Sodium 136 Potassium 3.1 L Chloride 98 Carbon Dioxide 23 Anion Gap 15 H BUN 17 Creatinine 0.66 Est Cr Clr Drug Dosing 87.7 eGFR 110.17 BUN/Creatinine Ratio 25.8 H Glucose 142 H Calcium 8.8 Magnesium 1.6 L Total Bilirubin 1.9 H AST 140 H ALT 67 H Alkaline Phosphatase 162 H Total Protein 6.6 Albumin 4.1 Globulin 2.5 Albumin/Globulin Ratio 1.6 Amylase 61 Lipase 350 H HCG, Qual Negative Urine Color [place] Urine Appearance Clear Urine pH 6.5 Ur Specific [place] 1.028 Urine Protein 1+ H Urine Glucose (UA) Negative Urine Ketones 2+ H Urine Blood 1+ H Urine Nitrite Negative Urine Bilirubin 1+ H Urine Urobilinogen Negative Ur Leukocyte Esterase Trace H Urine WBC (Auto) 0-5 Urine RBC (Auto) 11-20 H U Hyaline Cast (Auto) 0-2 U Epithel Cells (Auto) 6-10 H Urine Bacteria (Auto) 1+ H Urine Comment Urine Opiates Screen Pos H U Codeine Confrm GC/MS Pending Ur Morphine (GC/MS) Pending Ur Hydrocodone (GC/MS) Pending Ur Norhydrocodone Pending Ur Noroxycodone Pending Urine Oxycodone (GC/MS) Pending U Oxymorphone GC/MS Pending Ur Methadone, Qual Neg Ur Hydromorphone (GC/MS) Pending Urine Fentanyl Screen Neg Urine Barbiturates Neg Ur Phencyclidine (PCP) Neg U Amphetamin/Meth Scrn Neg MDMA (Ecstasy) Screen Neg U Benzodiazepines Scrn Neg Ur Cocaine Metabolite Neg U Marijuana (THC) Screen Pos H U Marijuana THC Carboxy Pending Drug Screen Comment Pending Ethyl Alcohol mg/dL < 10.0 PG Care Time/CCT Total # of Minutes Spent Total Time Spent with Patient: Total time spent is greater than 50% in coordination of care (as documented) at patient's floor/unit and/or counseling patient: Coding Level of Care Code 38091 INT INP/OBS CARE 3/75MIN Diagnoses Intractable vomiting with nausea R11.2 Acute on chronic pancreatitis K85.90; K86.1 Elevated LFTs R79.89 Acute dehydration E86.0 Hypomagnesemia E83.42 Hypokalemia E87.6 Tobacco abuse Z72.0 History of alcohol abuse F10.11 Medical marijuana use Z79.899 Gastroparesis K31.84 Portal vein thrombosis I81 Hx of migraines Z86.69 Candidiasis of mouth and esophagus B37.81; B37.0
[2025-04-01 08:18] LABS: Amphetamines+Metham, Urine Neg (Neg); MDMA (Ecstacy), Urine Neg (Neg); Marijuana, Urine Pos (Neg)
[2025-04-01] MEDS: POTASSIUM CHLORIDE / WTR 10 MEQ/100 ML PLCT IV SCH (08:41)
[2025-04-01] MEDS: MAGNESIUM SULFATE / D5W 1 GM/100 ML BAG IV SCH (08:41)
[2025-04-01] MEDS: LACTATED RINGER'S 1,000 ML IV SCH (08:41)
[2025-04-01] MEDS: HYDROmorphone INJ 0.5 MG/0.5 ML SYR IV STA (08:44)
[2025-04-01] MEDS: FAMOTIDINE 20MG IV PUSH 20 MG/5 ML SYR IV STA (08:44)
--- NOTE | 2025-04-01 09:05 | XRay Report ---
HISTORY: Chest pain. TECHNIQUE: PA and lateral views of the chest. COMPARISON: Chest radiograph dated 11/18/2024. FINDINGS: No focal lung consolidation. No pneumothorax or pleural effusion. Normal heart size. Left-sided aortic arch. Midline trachea. No acute osseous abnormality. Right upper quadrant surgical clips. IMPRESSION: No acute cardiopulmonary findings. Electronically signed by Harjinder Zaragoza 04-01-2025 09:02 AM
[2025-04-01] MEDS: PROMETHAZINE 25 MG/51 ML BAG IV STA (10:03)
[2025-04-01] MEDS ORDERED: [UNRECOGNIZED DRUG - OTHER] IU SCH (11:01)
[2025-04-01] MEDS ORDERED: LEVONORGESTREL IU SCH (11:01)
--- NOTE | 2025-04-01 11:09 | Magnetic Resonance Report ---
HISTORY: Abdominal pain. Nausea, vomiting, and diarrhea. Chronic pancreatitis. TECHNIQUE: MR imaging of the abdomen without contrast utilizing MRCP protocol. Rotating 3D MIP reconstructions are provided. COMPARISON: MRCP dated 07/01/2019. FINDINGS: The gallbladder is surgically absent.Mildly dilated common bile duct measuring up to1.3 cm in diameter. abrupt caliber change of the common bile duct at the level of the pancreatic head On series 3 image 15. Enlargement and masslike appearance of the pancreatic head is poorly evaluated without contrast. The pancreatic duct is not significantly dilated. There is inflammation along the body and tail of the pancreas. Mild inflammation in the splenic hilum and along the spleen. Inflammation extends along the left perirenal fascia. No peripancreatic fluid collection or pseudocyst. The liver, spleen, kidneys, and adrenal glands are unremarkable. The stomach and duodenum are unremarkable. Included small and large bowel loops are unremarkable. The lung bases are clear. Soft tissues of the body wall are unremarkable. IMPRESSION: * Findings of acute pancreatitis with peripancreatic edema along the body and tail of the pancreas. Inflammatory fluid is also seen involving the splenic hilum and extending inferiorly along the perirenal fascia. * Dilated common bile duct measuring up to 1.3 cm in diameter with abrupt caliber change at the level of the pancreatic head on series 3 image 15. Associated enlargement and masslike appearance of the pancreatic head. This could be due to edema from acute pancreatitis or underlying pancreatic head mass. This could be further evaluated with contrast-enhanced abdominal MRI utilizing pancreatic mass protocol and/or MRCP. * Gallbladder is surgically absent. * Additional findings as above. Electronically signed by Harjinder Zaragoza 04-01-2025 11:09 AM
[2025-04-01] MEDS: HYDROmorphone INJ 0.5 MG/0.5 ML SYR IV PRN (11:49)
[2025-04-01] MEDS: NICOTINE 21 MG/24 HR TDSY TD SCH (12:41)
[2025-04-01] MEDS: NYSTATIN SUSP 500,000 U/5 ML UDC PO SCH (12:41)
[2025-04-01] MEDS: PANTOprazole 40 MG/10 ML SYR IV SCH (12:41)
[2025-04-01] MEDS: ONDANSETRON INJ 2 MG/ML 2 ML VIAL IV PRN (14:01)
[2025-04-01] MEDS: PROMETHAZINE 12.5 MG/50.5 ML BAG IV PRN (15:57)
[2025-04-01] MEDS: APIXABAN 5 MG TABLET PO SCH (20:01)
--- NOTE | 2025-04-01 21:12 | Gastrointestinal Consultation ---
Date of Consultation April 01, 2025 Assessment & Plan (1) Elevated LFTs: Suspect mildly elevated LFTs are related to pancreatitis flare causing extrinsic compression of the distal common bile duct from inflammation. Less likely neoplastic process. LFTs should normalize as pancreatitis improves. If persi stent elevation after flare resolved would consider and endoscopic ultrasound to assess pancreatic inflammation versus mass. (2) Chronic alcoholic pancreatitis: Clinical picture consistent with a flare of her underlying chronic pancreatitis. No evidence of pseudocyst or other complication. Ultimately may need repeat imaging to rule out neoplastic process. Which I think is unlikely. She should continue her abstinence and encouraged her to stop smoking. Can have clear liquid diet as tolerated for now. History of Present Illness Reason for Consultation: Pancreatitis Attending Physician: Camilo Guajardo MD History of Present Illness Patient has a long history of alcohol induced chronic pancreatitis and was doing well for a year and has been abstinent from alcohol. She presented today with a several day history of abdominal pain nausea and vomiting consistent with a flare of her pancreatitis. She denies hematemesis melena fever or chills. She continues to smoke cigarettes. CT scan imaging consistent with pancreatitis. Lipase is elevated. She has a history of gastroparesis and gastritis in the past. Allergies Allergy/AdvReac Type Severity Reaction Status Date / Time buspirone [From BuSpar] Allergy Severe Unconscious, Verified 03/21/25 09:28 seizures quetiapine [From Seroquel] Allergy Severe Unconscious, Verified 03/21/25 09:28 seizures capsaicin AdvReac Intermediate Redness of Verified 03/21/25 09:28 Skin citalopram [From Celexa] AdvReac Intermediate Vomiting Verified 03/21/25 09:28 morphine AdvReac Intermediate Vomiting Verified 03/21/25 09:28 vilazodone [From Viibryd] AdvReac Intermediate Vomiting Verified 03/21/25 09:28 metoclopramide AdvReac Unknown "Twitchy" Verified 03/21/25 09:28 Home Medications Medication Instructions Recorded Confirmed Type cholecalciferol (vitamin D3) 250 250 mcg PO QAM 08/18/23 04/01/25 History mcg (10,000 unit) capsule mecobalamin (vitamin B12) 1,000 1,000 mcg PO QAM #100 tabs 01/20/24 04/01/25 Rx mcg chewable tablet (B12 Active) levonorgestrel 21 mcg/24 hr (up to 1 device intrauterine DIRECTED 08/16/24 04/01/25 History 8 years) 52 mg intrauterine device (Mirena) pantoprazole 40 mg tablet,delayed 40 mg PO BID #180 tabs 10/11/24 04/01/25 Rx release baclofen 20 mg tablet 20 mg PO TID PRN neck pain/muscle 10/20/24 04/01/25 Rx spasm #270 tabs ondansetron 4 mg disintegrating 4 mg PO Q6H PRN Nausea And 12/23/24 04/01/25 Rx tablet Vomiting 30 days #60 tabs kgovzq-[id number]-yjehzit 3 cap PO TID Abdominal Discomfort 01/07/25 04/01/25 Rx 36,000-114,000-180,000 unit 90 days #810 caps capsule,delay rel (Creon) apixaban 5 mg tablet (Eliquis) 5 mg PO BID #90 tabs 01/12/25 04/01/25 Rx peg 3350-sod sulf,[id number]-oef-wfi See Rx Instructions PO .COMPLEX #2 01/28/25 04/01/25 Rx 178.7-7.3-0.5-1.12-0.9 gram oral mL soln (Suflave) sumatriptan succinate 100 mg tablet 100 mg PO DAILY PRN 02/03/25 04/01/25 Rx migraine/headache #20 tabs folic acid 1 mg tablet 1 mg PO QAM 02/17/25 04/01/25 History fluoxetine 60 mg tablet 60 mg PO DAILY #30 tabs 03/07/25 04/01/25 Rx gabapentin 600 mg tablet 600 mg PO TID PRN Pain #90 tabs 03/11/25 04/01/25 Rx clonazepam 0.5 mg tablet 0.25 mg (1/2 x 0.5 mg) PO BID PRN 03/15/25 04/01/25 Rx anxiety 28 days #22 tabs oxycodone 5 mg tablet 5 mg PO TID PRN pain 2 weeks #32 03/28/25 04/01/25 Rx tabs methocarbamol 750 mg tablet 750 mg PO TID PRN pain #90 tabs 03/30/25 04/01/25 Rx promethazine 25 mg tablet 25 mg PO Q6H PRN nausea and 03/31/25 04/01/25 Rx vomiting #12 tabs Patient History Medical History Medical marijuana use Chronic pancreatitis Chronic abdominal pain Portal vein thrombosis (2019) on eliquis Gastroparesis per pt is severe, following with [facility] Pancreatic pseudocyst Pancolitis Adjustment disorder with depressed mood Per records History of seizure due to alcohol withdrawal 2020, "from either alcohol or clonazepam" PTSD (post-traumatic stress disorder) Hx of migraines Iron deficiency anemia Insomnia Hiatal hernia Nocturnal hypoxia Noted during previous hospitalizations per patient, plan for future sleep study (not scheduled until 07/2024 per patient) Degeneration of thoracolumbar intervertebral disc History of colitis Cervical radiculopathy Cervical spondylosis Anxiety and depression Tendinitis of right rotator cuff Ongoing Acne Cream every 4-6 months GERD (gastroesophageal reflux disease) Panic attacks hx Peptic ulcer disease hx Surgical History H/O oral surgery History of breast biopsy History of esophagogastroduodenoscopy (EGD) 2017 History of cholecystectomy History of tooth extraction History of lumpectomy of right breast "benign" Family History Father Family history of diabetes mellitus Myocardial infarction Hypertension Stroke Grandfather (Maternal) Family history of diabetes mellitus Grandmother (Maternal) Family history of diabetes mellitus Cancer Hypertension Mother Hypothyroidism Grandfather (Paternal) Heart problem Cancer Grandmother (Paternal) Hypertension Other No family history of adverse response to anesthesia Denies family history of Ovarian cancer Prostate cancer Breast cancer Colorectal cancer Social History Smoking Status: Current every day smoker Tobacco Type: Cigarettes Age Started Using Tobacco: 15; packs per day: 0.5; Cigarettes Per Day: 10-15; Second Hand Exposure: No; Do You Dip or Chew Tobacco: No; Hx Alcohol Use: No Hx Substance Use: Yes Last Used Substance: Hours (ago) Last Used Substance Other:: last used yesterday Substance Use Type Other:: medical card for sleep/anx Preferred Language: Burmese Communication Ability: Effective Visual Impairment: No Limitations Hearing Ability: Normal Slps Required: No Beliefs That Will Affect Care: None marital status: Single Current Living Situation: Parent Current Living Situation Comment: home with mother and dog current occupational status: employed current occupation: at [employer] How many Children do You have: 0 Other Information That Helps Us Care for You: No Feels Safe at Home: Yes Safety Concerns: Feels Safe At This Time Childhood Exposure to Second-Hand Smoke: No Diet: regular Diet Comment: regular Dental Care, Regularly: Yes Physical Activity Frequency: Does not Exercise Seatbelt Use: always Sunscreen Use: Yes Do you think of yourself as: straight/heterosexual Assistive Devices: Denture - Upper Assistive Devices Comment: dentures at home Review of Systems Review of Systems: No fever No chills No SOB No CP Generalized abdominal pain Physical Exam Physical Exam: Eyes; anicteric HENT No masses Chest clear to A Cor S1, S2 physiologic Abd: softer mild epigastric tenderness no masses Ext no edema Results & Data Vital Signs (Past 12 Hours) Vital Signs Temp Pulse Pulse Resp BP BP Pulse Ox 04/01/25 20:09 36.9 C 95 H 16 137/105 H 95 04/01/25 15:34 37.0 C 93 H 20 127/87 97 04/01/25 13:00 92 H 04/01/25 11:03 36.6 C 92 H 16 147/97 H 99 04/01/25 11:02 88 04/01/25 09:28 94 H 18 131/89 98 O2 Del Method 04/01/25 20:09 Room Air 04/01/25 15:34 Room Air 04/01/25 13:00 04/01/25 11:03 Room Air 04/01/25 11:02 04/01/25 09:28 Room Air Laboratory Results Laboratory Results - last 48 hr 04/01/25 04/01/25 06:01 07:35 WBC 15.88 H RBC 4.93 Hgb 15.2 Hct 42.8 MCV 86.8 MCH 30.8 MCHC 35.5 RDW Std Deviation 47.0 H RDW Coeff of Jessica 14.7 H Plt Count 465 H MPV 9.3 L Immature Gran % (Auto) 0.4 Neut % (Auto) 85.9 Lymph % (Auto) 8.2 [place] % (Auto) 5.3 Eos % (Auto) 0.0 Baso % (Auto) 0.2 Neut # (Auto) 13.65 H Lymph # (Auto) 1.30 [place] # (Auto) 0.84 H Eos # (Auto) 0.00 Baso # (Auto) 0.03 Immature Gran # (Auto) 0.06 PT 10.9 INR 1.0 APTT 29 PTT Ratio 1.1 Sodium 136 Potassium 3.1 L Chloride 98 Carbon Dioxide 23 Anion Gap 15 H BUN 17 Creatinine 0.66 Est Cr Clr Drug Dosing 87.7 eGFR 110.17 BUN/Creatinine Ratio 25.8 H Glucose 142 H Calcium 8.8 Magnesium 1.6 L Total Bilirubin 1.9 H AST 140 H ALT 67 H Alkaline Phosphatase 162 H Total Protein 6.6 Albumin 4.1 Globulin 2.5 Albumin/Globulin Ratio 1.6 Amylase 61 Lipase 350 H HCG, Qual Negative Urine Color Garvin Urine Appearance Clear Urine pH 6.5 Ur Specific Glidden 1.028 Urine Protein 1+ H Urine Glucose (UA) Negative Urine Ketones 2+ H Urine Blood 1+ H Urine Nitrite Negative Urine Bilirubin 1+ H Urine Urobilinogen Negative Ur Leukocyte Esterase Trace H Urine WBC (Auto) 0-5 Urine RBC (Auto) 11-20 H U Hyaline Cast (Auto) 0-2 U Epithel Cells (Auto) 6-10 H Urine Bacteria (Auto) 1+ H Urine Comment Urine Opiates Screen Pos H Ur Methadone, Qual Neg Urine Fentanyl Screen Neg Urine Barbiturates Neg Ur Phencyclidine (PCP) Neg U Amphetamin/Meth Scrn Neg MDMA (Ecstasy) Screen Neg U Benzodiazepines Scrn Neg Ur Cocaine Metabolite Neg U Marijuana (THC) Screen Pos H Ethyl Alcohol mg/dL < 10.0 Diagnostic Findings Cholangiopancreatography MRI 04/01/25 08:25 HISTORY: Abdominal pain. Nausea, vomiting, and diarrhea. Chronic pancreatitis. TECHNIQUE: MR imaging of the abdomen without contrast utilizing MRCP protocol. Rotating 3D MIP reconstructions are provided. COMPARISON: MRCP dated 07/01/2019. FINDINGS: The gallbladder is surgically absent.Mildly dilated common bile duct measuring up to1.3 cm in diameter. abrupt caliber change of the common bile duct at the level of the pancreatic head On series 3 image 15. Enlargement and masslike appearance of the pancreatic head is poorly evaluated without contrast. The pancreatic duct is not significantly dilated. There is inflammation along the body and tail of the pancreas. Mild inflammation in the splenic hilum and along the spleen. Inflammation extends along the left perirenal fascia. No peripancreatic fluid collection or pseudocyst. The liver, spleen, kidneys, and adrenal glands are unremarkable. The stomach and duodenum are unremarkable. Included small and large bowel loops are unremarkable. The lung bases are clear. Soft tissues of the body wall are unremarkable. IMPRESSION: * Findings of acute pancreatitis with peripancreatic edema along the body and tail of the pancreas. Inflammatory fluid is also seen involving the splenic hilum and extending inferiorly along the perirenal fascia. * Dilated common bile duct measuring up to 1.3 cm in diameter with abrupt caliber change at the level of the pancreatic head on series 3 image 15. Associated enlargement and masslike appearance of the pancreatic head. This could be due to edema from acute pancreatitis or underlying pancreatic head mass. This could be further evaluated with contrast-enhanced abdominal MRI utilizing pancreatic mass protocol and/or MRCP. * Gallbladder is surgically absent. * Additional findings as above. Electronically signed by Harjinder Zaragoza 04-01-2025 11:09 AM Chest X-Ray 04/01/25 08:26 HISTORY: Chest pain. TECHNIQUE: PA and lateral views of the chest. COMPARISON: Chest radiograph dated 11/18/2024. FINDINGS: No focal lung consolidation. No pneumothorax or pleural effusion. Normal heart size. Left-sided aortic arch. Midline trachea. No acute osseous abnormality. Right upper quadrant surgical clips. IMPRESSION: No acute cardiopulmonary findings. Electronically signed by Harjinder Zaragoza 04-01-2025 09:02 AM PG Care Time/CCT Total # of Minutes Spent Total Time Spent with Patient: Total time spent is greater than 50% in coordination of care (as documented) at patient's floor/unit and/or counseling patient: Coding Level of Care Code 84197 INT INP/OBS CARE 2/55MIN Diagnoses Elevated LFTs R79.89 Chronic alcoholic pancreatitis K86.0
[2025-04-01] MEDS: GABAPENTIN 600 MG TAB PO PRN (21:39)
--- NOTE | 2025-04-02 06:39 | Gastroenterology Progress Note ---
Date of Service April 02, 2025 Assessment & Plan (1) Chronic alcoholic pancreatitis: Plan: Presents with exacerbation of chronic pancreatitis. Slowly improving. No vomiting. Tolerating clear liquids. Continue clear liquids. Admission and Anticipated Discharge Date Admission Date: April 01, 2025 Subjective Still complaining of abdominal pain no shortness of breath no chest pain no vomiting Physical Exam Physical Exam: No acute distress Respiratory rate regular Cardiac rhythm regular Abdomen soft mild epigastric tenderness no rebound no guarding Results & Data Results & Data Vital Signs (Past 12 Hours) Vital Signs Temp Pulse Pulse Resp BP Pulse Ox O2 Del Method 04/02/25 02:40 37 C 91 H 16 124/84 95 Room Air 04/01/25 21:59 36.8 C 92 H 18 147/92 H 96 Room Air 04/01/25 21:52 92 H 04/01/25 20:09 36.9 C 95 H 16 137/105 H 95 Room Air PG Care Time/CCT Total # of Minutes Spent Total Time Spent with Patient: Total time spent is greater than 50% in coordination of care (as documented) at patient's floor/unit and/or counseling patient: Coding Level of Care Code 88127 SUB INP/OBS CARE 2/35MIN Diagnoses Chronic alcoholic pancreatitis K86.0
[2025-04-02 06:40] LABS: Hematocrit (blood only) 33.7 % (37.0-47.0); Hemoglobin 11.2 g/dl (12.0-16.0); Immature Granulocytes # (auto) 0.05 K/uL (0.01-0.20); Immature Granulocytes % (auto) 0.5 %; Mean Corpuscular Hemoglobin 30.6 pg (25.0-34.0); Mean Corpuscular Volume 92.1 fL (80.0-100.0); Platelet Count 320 K/uL (130-400); RDW Standard Deviation 52.0 fL (36.4-46.3); Red Blood Count 3.66 M/uL (4.20-5.40); White Blood Count 10.38 K/ul (4.8-10.8)
[2025-04-02 06:56] LABS: Alanine Aminotransferase 34.0 U/L (7-52); Albumin Globulin Ratio 1.6 (0.9-2); Alkaline Phosphatase 107.0 U/L (34-104); Anion Gap 4.0 (3-11); Bilirubin,Total 1.0 mg/dl (0.2-1.0); Blood Urea Nitrogen 4.0 mg/dl (6-23); Calcium 7.7 mg/dl (8.6-10.3); Carbon Dioxide 31.0 mmol/L (21-32); Chloride 103.0 mmol/L (98-107); Creatinine Clr Calc Pharmacy 113.0 ml/min; Globulin 1.8 gm/dl (2.5-4.0); Glucose 85.0 mg/dl (70-99(Fasting)); Lipase 144.0 U/L (11-82); Magnesium 1.9 mg/dl (1.7-2.4); Potassium 3.4 mmol/L (3.5-5.1); Sodium 138.0 mmol/L (136-145); Total Protein 4.7 gm/dl (6.0-8.3)
[2025-04-02] MEDS: BACLOFEN 20 MG TAB PO PRN (08:34)
[2025-04-02] MEDS: REMOVE NICODERM PATCH SCH (08:34)
[2025-04-02] MEDS: POTASSIUM CHLORIDE CRTAB 20 MEQ TABCR PO SCH (09:27)
--- NOTE | 2025-04-02 14:18 | Hospitalist Progress Note ---
Date of Service April 02, 2025 Assessment & Plan (1) Intractable vomiting with nausea: (2) Acute on chronic pancreatitis: (3) Elevated LFTs: (4) Acute dehydration: (5) Hypomagnesemia: (6) Hypokalemia: (7) Tobacco abuse: (8) History of alcohol abuse: (9) Medical marijuana use: (10) Gastroparesis: (11) Portal vein thrombosis: (12) Hx of migraines: (13) Candidiasis of mouth and esophagus: (14) Abnormal MRI of abdomen: Plan 44yo female with history of chronic pancreatitis, prior alcohol dependence with abstinence since November 2023, chronic tobacco dependence, history of pancreatic pseudocyst, recent hospitalization in February 2025 for diarrhea/colitis, gastroparesis, PVT on Eliquis, and medical THC use who presents from home with refractory upper abdominal pain, nausea, emesis, diarrhea, and inability to eat/drink. Patient reports she was discharged on 03/20 from our hospital after having been diagnosed with colitis. She was eating/drinking normally for about 48 hours after getting home but then her GI symptoms returned - initially abdominal pain, followed by severe nausea with vomiting. #acute on chronic pancreatitis with abnormal LFTs - -MRCP c/w acute pancreatitis -patient reports abstinence from etoh since early 2023 -clinically & biochemically improved -allow clear liquid diet -can reduce fluid rate to 60ml/hr -repeat LFTs and lipase in AM -to be complete check a triglyceride level in am #abnormal MRCP of pancreatic head - -pancreatic head appearance is abnormal, perhaps 2nd to pancreatitis -appreciate consult by Dr Woodward from GI -EUS may be needed in the future to further assess the pancreas -patient made aware of abnormal pancreas on MRCP #dehydration - -2nd to nausea/vomiting/diarrhea/poor PO intake pre-admission -MUCH improved s/p copious hydration since admission -tolerating clears; can reduce fluid rate to 60ml/hr -repeat BMP am #recent hospitalization for mild colitis - -CT earlier in February with mild colitis -infectious work-up -- c diff + stool Biofire - all negative -diarrhea has improved since that time without specific Rx (took steroids but only briefly) -etiology uncertain #gastroparesis - -intolerant of reglan (TD side effects by report) -zofran/phenergan prn #h/o PVT - -cont Eliquis 5mg BID #chronic medical THC use - noted #chronic tobacco dependence - -nicoderm patch daily #hypomagnesemia - -2nd to vomiting, diarrhea, and poor PO intake -s/p IV mag sulfate replacement with normalization -will recommend mag oxide 400mg daily upon discharge to home; this may even help with migraine prevention #hypokalemia - -improved -add PO KCL -recheck BMP am #recent cough, chest symptoms - -lungs clear on exam with normal O2 sats -cxr without infiltrates #DVT proph - -Eliquis 5mg BID #candidiasis of mouth - -improved -cont nystatin solution 5ml QID swish/spit pt's mother updated at bedside once again today Admission and Anticipated Discharge Date Admission Date: April 01, 2025 Subjective patient feeling much better today abd pain improved no further vomiting occasional nausea 1 stool - liquid actually has appetite today - asks if she can have mashed potatoes she asks if she should take supplemental mag/K at home pt's mother at bedside tele overnight wnl (NSR) Review of Systems Review of Systems: cv - no chest pain or discomfort pulm - no dyspnea or ROSENBAUM Physical Exam Physical Exam: gen - looks much better today, NAD HENT - MMM; thrush plaques on buccal mucosa and tongue improved; edentulous neck - no JVD heart - RRR, s1 s2, no murmur lungs - CTA b/l, no rales, no wheeze abd - soft, nontender, BS+, ND; no peritoneal signs; no HSM ext - no edema, pulses b/l feet 2+ b psych - a/o x 3 Results & Data Results & Data Vital Signs (Past 12 Hours) Vital Signs Temp Pulse Pulse Resp BP Pulse Ox O2 Del Method 04/02/25 12:11 37.1 C 103 H 18 139/98 94 Room Air 04/02/25 10:57 89 04/02/25 02:40 37 C 91 H 16 124/84 95 Room Air Laboratory Results Laboratory Results - last 24 hr 04/02/25 05:31 WBC 10.38 RBC 3.66 L Hgb 11.2 L D Hct 33.7 L MCV 92.1 D MCH 30.6 MCHC 33.2 RDW Std Deviation 52.0 H RDW Coeff of Jessica 15.6 H Plt Count 320 MPV 9.6 Immature Gran % (Auto) 0.5 Neut % (Auto) 69.1 Lymph % (Auto) 21.6 [place] % (Auto) 7.4 Eos % (Auto) 1.0 Baso % (Auto) 0.4 Neut # (Auto) 7.18 H Lymph # (Auto) 2.24 [place] # (Auto) 0.77 H Eos # (Auto) 0.10 Baso # (Auto) 0.04 Immature Gran # (Auto) 0.05 Sodium 138 Potassium 3.4 L Chloride 103 Carbon Dioxide 31 Anion Gap 4 BUN 4 L Creatinine 0.52 L Est Cr Clr Drug Dosing 113.0 eGFR 116.69 BUN/Creatinine Ratio 7.7 L Glucose 85 Calcium 7.7 L Magnesium 1.9 Total Bilirubin 1.0 D AST 42 H ALT 34 Alkaline Phosphatase 107 H Total Protein 4.7 L D Albumin 2.9 L Globulin 1.8 L Albumin/Globulin Ratio 1.6 Lipase 144 H Diagnostic Findings Cholangiopancreatography MRI 04/01/25 08:25 HISTORY: Abdominal pain. Nausea, vomiting, and diarrhea. Chronic pancreatitis. TECHNIQUE: MR imaging of the abdomen without contrast utilizing MRCP protocol. Rotating 3D MIP reconstructions are provided. COMPARISON: MRCP dated 07/01/2019. FINDINGS: The gallbladder is surgically absent.Mildly dilated common bile duct measuring up to1.3 cm in diameter. abrupt caliber change of the common bile duct at the level of the pancreatic head On series 3 image 15. Enlargement and masslike appearance of the pancreatic head is poorly evaluated without contrast. The pancreatic duct is not significantly dilated. There is inflammation along the body and tail of the pancreas. Mild inflammation in the splenic hilum and along the spleen. Inflammation extends along the left perirenal fascia. No peripancreatic fluid collection or pseudocyst. The liver, spleen, kidneys, and adrenal glands are unremarkable. The stomach and duodenum are unremarkable. Included small and large bowel loops are unremarkable. The lung bases are clear. Soft tissues of the body wall are unremarkable. IMPRESSION: * Findings of acute pancreatitis with peripancreatic edema along the body and tail of the pancreas. Inflammatory fluid is also seen involving the splenic hilum and extending inferiorly along the perirenal fascia. * Dilated common bile duct measuring up to 1.3 cm in diameter with abrupt caliber change at the level of the pancreatic head on series 3 image 15. Associated enlargement and masslike appearance of the pancreatic head. This could be due to edema from acute pancreatitis or underlying pancreatic head mass. This could be further evaluated with contrast-enhanced abdominal MRI utilizing pancreatic mass protocol and/or MRCP. * Gallbladder is surgically absent. * Additional findings as above. Electronically signed by Harjinder Zaragoza 04-01-2025 11:09 AM Chest X-Ray 04/01/25 08:26 HISTORY: Chest pain. TECHNIQUE: PA and lateral views of the chest. COMPARISON: Chest radiograph dated 11/18/2024. FINDINGS: No focal lung consolidation. No pneumothorax or pleural effusion. Normal heart size. Left-sided aortic arch. Midline trachea. No acute osseous abnormality. Right upper quadrant surgical clips. IMPRESSION: No acute cardiopulmonary findings. Electronically signed by Harjinder Zaragoza 04-01-2025 09:02 AM PG Care Time/CCT Total # of Minutes Spent Total Time Spent with Patient: Total time spent is greater than 50% in coordination of care (as documented) at patient's floor/unit and/or counseling patient: Coding Level of Care Code 10015 SUB INP/OBS CARE 2/35MIN Diagnoses Intractable vomiting with nausea R11.2 Acute on chronic pancreatitis K85.90; K86.1 Elevated LFTs R79.89 Acute dehydration E86.0 Hypomagnesemia E83.42 Hypokalemia E87.6 Tobacco abuse Z72.0 History of alcohol abuse F10.11 Medical marijuana use Z79.899 Gastroparesis K31.84 Portal vein thrombosis I81 Hx of migraines Z86.69 Candidiasis of mouth and esophagus B37.81; B37.0 Abnormal MRI of abdomen R93.5
[2025-04-02] MEDS: clonazePAM 0.25 MG OD TAB PO PRN (21:26)
[2025-04-03 05:55] LABS: Hematocrit (blood only) 34.6 % (37.0-47.0); Hemoglobin 11.2 g/dl (12.0-16.0)
[2025-04-03 06:30] LABS: Alanine Aminotransferase 29.0 U/L (7-52); Albumin Globulin Ratio 1.5 (0.9-2); Alkaline Phosphatase 101.0 U/L (34-104); Anion Gap 4.0 (3-11); Bilirubin,Total 0.8 mg/dl (0.2-1.0); Blood Urea Nitrogen 2.0 mg/dl (6-23); Calcium 8.1 mg/dl (8.6-10.3); Carbon Dioxide 31.0 mmol/L (21-32); Chloride 103.0 mmol/L (98-107); Creatinine Clr Calc Pharmacy 110.9 ml/min; Globulin 2.1 gm/dl (2.5-4.0); Glucose 90.0 mg/dl (70-99(Fasting)); Lipase 95.0 U/L (11-82); Potassium 3.7 mmol/L (3.5-5.1); Sodium 138.0 mmol/L (136-145); Total Protein 5.2 gm/dl (6.0-8.3); Triglycerides 65.0 mg/dl (0-150)
[2025-04-03] MEDS: PANCREAZE (LIPASE 10,500U) CAP PO SCH (08:05)
--- NOTE | 2025-04-03 08:58 | Gastroenterology Progress Note ---
Date of Service April 03, 2025 Assessment & Plan (1) Chronic alcoholic pancreatitis: Plan: Resolving pancreatitis flare. Okay to advance diet to low-fat as tolerated. Admission and Anticipated Discharge Date Admission Date: April 01, 2025 Subjective Better today less abdominal pain no nausea no vomiting Physical Exam Physical Exam: No acute distress Respiratory rate regular Cardiac rhythm regular Abdomen soft less tender Results & Data Results & Data Vital Signs (Past 12 Hours) Vital Signs Temp Pulse Pulse Resp BP Pulse Ox O2 Del Method 04/03/25 08:05 36.4 C L 98 H 18 113/71 96 Room Air 04/03/25 07:31 77 04/03/25 01:59 36.8 C 78 18 154/95 H 98 Room Air 04/02/25 21:58 37 C 90 18 134/88 98 Room Air 04/02/25 21:46 88 Laboratory Results Laboratory Results - last 48 hr 04/02/25 04/03/25 05:31 05:27 WBC 10.38 RBC 3.66 L Hgb 11.2 L D 11.2 L Hct 33.7 L 34.6 L MCV 92.1 D MCH 30.6 MCHC 33.2 RDW Std Deviation 52.0 H RDW Coeff of Jessica 15.6 H Plt Count 320 MPV 9.6 Immature Gran % (Auto) 0.5 Neut % (Auto) 69.1 Lymph % (Auto) 21.6 [place] % (Auto) 7.4 Eos % (Auto) 1.0 Baso % (Auto) 0.4 Neut # (Auto) 7.18 H Lymph # (Auto) 2.24 [place] # (Auto) 0.77 H Eos # (Auto) 0.10 Baso # (Auto) 0.04 Immature Gran # (Auto) 0.05 Sodium 138 138 Potassium 3.4 L 3.7 Chloride 103 103 Carbon Dioxide 31 31 Anion Gap 4 4 BUN 4 L 2 L Creatinine 0.52 L 0.53 L Est Cr Clr Drug Dosing 113.0 110.9 eGFR 116.69 116.16 BUN/Creatinine Ratio 7.7 L 3.8 L Glucose 85 90 Calcium 7.7 L 8.1 L Magnesium 1.9 Total Bilirubin 1.0 D 0.8 AST 42 H 26 ALT 34 29 Alkaline Phosphatase 107 H 101 Total Protein 4.7 L D 5.2 L Albumin 2.9 L 3.1 L Globulin 1.8 L 2.1 L Albumin/Globulin Ratio 1.6 1.5 Triglycerides 65 Lipase 144 H 95 H PG Care Time/CCT Total # of Minutes Spent Total Time Spent with Patient: Total time spent is greater than 50% in coordination of care (as documented) at patient's floor/unit and/or counseling patient: Coding Level of Care Code 38786 SUB INP/OBS CARE 2/35MIN Diagnoses Chronic alcoholic pancreatitis K86.0
--- NOTE | 2025-04-03 14:21 | Electrocardiogram Report ---
Test Reason : Blood Pressure : */* mmHG Vent. Rate : 88 BPM Atrial Rate : 88 BPM P-R Int : 142 ms QRS Dur : 80 ms QT Int : 354 ms P-R-T Axes : 72 51 65 degrees QTcB Int : 428 ms Normal sinus rhythm Normal ECG When compared with ECG of 22-Dec-2024 12:45, No significant change was found Confirmed by Bry Quintana ([id number]) on 04/03/2025 2:20:37 PM Referred By: REFERRED SELF Confirmed By: Bry Quintana
--- NOTE | 2025-04-03 20:40 | Hospitalist Progress Note ---
Date of Service April 03, 2025 Assessment & Plan (1) Intractable vomiting with nausea: (2) Acute on chronic pancreatitis: (3) Elevated LFTs: (4) Acute dehydration: (5) Hypomagnesemia: (6) Hypokalemia: (7) Tobacco abuse: (8) History of alcohol abuse: (9) Medical marijuana use: (10) Gastroparesis: (11) Portal vein thrombosis: (12) Hx of migraines: (13) Candidiasis of mouth and esophagus: (14) Abnormal MRI of abdomen: Plan 44yo female with history of chronic pancreatitis, prior alcohol dependence with abstinence since November 2023, chronic tobacco dependence, history of pancreatic pseudocyst, recent hospitalization in February 2025 for diarrhea/colitis, gastroparesis, PVT on Eliquis, and medical THC use who presents from home with refractory upper abdominal pain, nausea, emesis, diarrhea, and inability to eat/drink. Patient reports she was discharged on 03/20 from our hospital after having been diagnosed with colitis. She was eating/drinking normally for about 48 hours after getting home but then her GI symptoms returned - initially abdominal pain, followed by severe nausea with vomiting. #acute on chronic pancreatitis with abnormal LFTs - -MRCP c/w acute pancreatitis -patient reports abstinence from etoh since early 2023 -continued to improve clinically & biochemically; lipase nearly normal today -trigs normal (<100) -allow low fat diet -can stop fluids later today -lipase in AM -appreciate GI assistance -Creon w/ meals resumed #abnormal MRCP of pancreatic head - -pancreatic head appearance is abnormal, perhaps 2nd to pancreatitis -appreciate consult by Dr Woodward from GI -EUS may be needed in the future to further assess the pancreas -patient made aware of abnormal pancreas on MRCP #dehydration - -2nd to nausea/vomiting/diarrhea/poor PO intake pre-admission -resolved -stop IV fluids #recent hospitalization for mild colitis - -CT earlier in February with mild colitis -infectious work-up -- c diff + stool Biofire - all negative -diarrhea has improved since that time without specific Rx (took steroids but only briefly) -etiology uncertain #gastroparesis - -intolerant of reglan (TD side effects by report) -zofran/phenergan prn #h/o PVT - -cont Eliquis 5mg BID #chronic medical THC use - noted #chronic tobacco dependence - -nicoderm patch daily #hypomagnesemia - -2nd to vomiting, diarrhea, and poor PO intake -s/p IV mag sulfate replacement with normalization -will recommend mag oxide 400mg daily upon discharge to home; this may even help with migraine prevention -repeat mag in am #hypokalemia - -improved -recheck BMP am -can stop K supplement #recent cough, chest symptoms - -lungs clear on exam with normal O2 sats -cxr without infiltrates -no pulm complaints since admission #DVT proph - -Eliquis 5mg BID #candidiasis of mouth - -improved/resolved -cont nystatin solution 5ml QID swish/spit a few more days then stop pt's mother updated at bedside yesterday may shower if desired transition to PO pain meds in am and wean off IV dilaudid Admission and Anticipated Discharge Date Admission Date: April 01, 2025 Subjective tolerating low fat diet no vomiting occasional nausea no vomiting since prior to admission passing flatus mouth feels much better with nystatin asks about a shower no dyspnea tele overnight wnl Review of Systems Review of Systems: gen - no fevers cv - no cp pulm - no [facility] - abd pain improved Physical Exam Physical Exam: gen - looks well, NAD, comfortable, awake/alert HENT - MMM; thrush plaques on buccal mucosa and tongue resolved; edentulous neck - no JVD heart - RRR, s1 s2, no murmur lungs - CTA b/l, no rales, no wheeze abd - soft, nontender, BS+, ND; no peritoneal signs; no HSM ext - no edema, pulses b/l feet 2+ b psych - a/o x 3 Results & Data Results & Data Vital Signs (Past 12 Hours) Vital Signs Temp Pulse Pulse Resp BP BP Pulse Ox 04/03/25 20:16 36.6 C 94 H 14 145/99 H 97 04/03/25 15:32 36.8 C 92 H 18 137/94 97 04/03/25 12:59 100 H 04/03/25 12:18 36.8 C 78 17 125/87 98 O2 Del Method 04/03/25 20:16 Room Air 04/03/25 15:32 Room Air 04/03/25 12:59 04/03/25 12:18 Room Air Laboratory Results Laboratory Results 04/03/25 05:27 Hgb 11.2 L Hct 34.6 L Sodium 138 Potassium 3.7 Chloride 103 Carbon Dioxide 31 Anion Gap 4 BUN 2 L Creatinine 0.53 L Est Cr Clr Drug Dosing 110.9 eGFR 116.16 BUN/Creatinine Ratio 3.8 L Glucose 90 Calcium 8.1 L Total Bilirubin 0.8 AST 26 ALT 29 Alkaline Phosphatase 101 Total Protein 5.2 L Albumin 3.1 L Globulin 2.1 L Albumin/Globulin Ratio 1.5 Triglycerides 65 Lipase 95 H PG Care Time/CCT Total # of Minutes Spent Total Time Spent with Patient: Total time spent is greater than 50% in coordination of care (as documented) at patient's floor/unit and/or counseling patient: Coding Level of Care Code 74498 SUB INP/OBS CARE 2/35MIN Diagnoses Intractable vomiting with nausea R11.2 Acute on chronic pancreatitis K85.90; K86.1 Elevated LFTs R79.89 Acute dehydration E86.0 Hypomagnesemia E83.42 Hypokalemia E87.6 Tobacco abuse Z72.0 History of alcohol abuse F10.11 Medical marijuana use Z79.899 Gastroparesis K31.84 Portal vein thrombosis I81 Hx of migraines Z86.69 Candidiasis of mouth and esophagus B37.81; B37.0 Abnormal MRI of abdomen R93.5
[2025-04-04 09:52] LABS: Anion Gap 8 (3-11); Blood Urea Nitrogen < 2 mg/dl (6-23); Calcium 9.0 mg/dl (8.6-10.3); Carbon Dioxide 30 mmol/L (21-32); Chloride 101 mmol/L (98-107); Creatinine Clr Calc Pharmacy 101.3 ml/min; Glucose 116 mg/dl (70-99(Fasting)); Lipase 107 U/L (11-82); Magnesium 1.9 mg/dl (1.7-2.4); Potassium 3.9 mmol/L (3.5-5.1); Sodium 139 mmol/L (136-145)
--- NOTE | 2025-04-04 10:10 | Gastroenterology Progress Note ---
Date of Service April 04, 2025 Assessment & Plan (1) Chronic alcoholic pancreatitis: Plan: Objectively improving. Patient has outpatient follow-up with [facility] due to her ongoing need for biliary services related to her chronic pancreatitis. Previous EUS/ERCPs performed at [facility] and [facility] prior to that. (2) Elevated LFTs: Plan: Bilirubin, AST, & ALT all have normalized. Like due to compression of CBD from inflammation associated with pancreatitis flare. Admission and Anticipated Discharge Date Admission Date: April 01, 2025 Supervising Physician Co-Signing Physician Notes I saw and examined this patient with our nurse practitioner and agree with her assessment and plan. Send recurrent abdominal pain today despite feeling better yesterday. Back on clear liquid diet. Recommend trying to advance her diet tomorrow if her symptoms improved. I believe this is a flare of her underlying chronic pancreatitis. Continue her PPI and pancreatic enzyme replacement. Subjective Patient is a 44 yo female hospitalized for chronic pancreatitis & elevated LFTs. Patient is tearful due to epigastric pain. She notes it's not worsening, but not improving. She did not feel that it worsened with advancement of her diet. She notes an upcoming appointment with [facility] for her biliary needs. She notes that her insurance wouldn't pay for her to go to [facility] as she originally had planned and she did not want to return to [place]. Review of Systems Gastrointestinal: + abdominal pain Physical Exam Constitutional: well developed and well nourished; no acute distress Respiratory: normal respiratory effort, lungs clear to auscultation Cardiovascular: Rate/Rhythm: regular rate Gastrointestinal (Abdomen): Inspection/Auscultation: abdomen normal to inspection; abdomen not distended Percussion/Palpation: + abdomen tender Psychiatric: tearful Results & Data Results & Data Vital Signs (Past 12 Hours) Vital Signs Temp Pulse Pulse Resp BP Pulse Ox O2 Del Method 04/04/25 07:55 36.4 C L 85 18 119/81 95 Room Air 04/04/25 07:03 87 04/04/25 04:26 36.7 C 93 H 20 139/94 99 Room Air 04/03/25 23:59 36.9 C 90 20 128/86 93 Room Air PG Care Time/CCT Total # of Minutes Spent Total Time Spent with Patient: Total time spent is greater than 50% in coordination of care (as documented) at patient's floor/unit and/or counseling patient: Coding Level of Care Code 82334 SUB INP/OBS CARE MIN Diagnoses Chronic alcoholic pancreatitis K86.0 Elevated LFTs R79.89
[2025-04-04] MEDS: HYDROmorphone INJ 0.5 MG/0.5 ML SYR IV PRN ×2 (11:36→16:22)
[2025-04-04] MEDS: SODIUM CHLORIDE 0.9% 1,000 ML IV SCH (15:21)
--- NOTE | 2025-04-04 16:12 | Hospitalist Progress Note ---
Date of Service April 04, 2025 Assessment & Plan (1) Acute on chronic pancreatitis: (2) Intractable vomiting with nausea: (3) Elevated LFTs: (4) Acute dehydration: (5) Hypomagnesemia: (6) Hypokalemia: (7) Tobacco abuse: (8) History of alcohol abuse: (9) Medical marijuana use: (10) Gastroparesis: (11) Portal vein thrombosis: (12) Hx of migraines: (13) Candidiasis of mouth and esophagus: (14) Abnormal MRI of abdomen: (15) Ileus: Plan 44yo female with history of chronic pancreatitis, prior alcohol dependence with abstinence since November 2023, chronic tobacco dependence, history of pancreatic pseudocyst, recent hospitalization in February 2025 for diarrhea/colitis, gastropa resis, PVT on Eliquis, and medical THC use who presents from home with refractory upper abdominal pain, nausea, emesis, diarrhea, and inability to eat/drink. Patient reports she was discharged on 03/20 from our hospital after having been diagnosed with colitis. She was eating/drinking normally for about 48 hours after getting home but then her GI symptoms returned - initially abdominal pain, followed by severe nausea with vomiting. #acute on chronic pancreatitis with abnormal LFTs - -MRCP c/w acute pancreatitis -patient reports abstinence from etoh since early 2023 -had improved clinically & biochemically on 04/03 but much worse today with increasing pain, nausea, etc. -trigs normal (<100) -downgrade diet to full liquids -resume IV fluids at 50ml/hr -appreciate GI assistance -cont Creon w/ meals resumed -some of her worsening symptoms could be ileus-related as seen on KUB #ileus - -2nd to acute pancreatitis -narcotics will make worse as well -downgrade diet to full liquids -keep K/mag wnl -walking will help -KUB findings d/w patient #abnormal MRCP of pancreatic head - -pancreatic head appearance is abnormal, perhaps 2nd to pancreatitis -appreciate consult by Dr Woodward from GI -EUS may be needed in the future to further assess the pancreas -patient made aware of abnormal pancreas on MRCP -I corresponded [facility] who will help arrange outpatient [facility] GI f/u #dehydration - -2nd to nausea/vomiting/diarrhea/poor PO intake pre-admission -had resolved and fluids were stopped; but, due to downgrade in diet, will resume IV fluids #recent hospitalization for mild colitis - -CT earlier in February with mild colitis -infectious work-up -- c diff + stool Biofire - all negative -diarrhea has improved since that time without specific Rx (took steroids but only briefly) -etiology uncertain #gastroparesis - -intolerant of reglan (TD side effects by report) -zofran/phenergan prn #h/o PVT - -cont Eliquis 5mg BID #chronic medical THC use - noted #chronic tobacco dependence - -nicoderm patch daily #hypomagnesemia - -2nd to vomiting, diarrhea, and poor PO intake -s/p IV mag sulfate replacement with normalization -will recommend mag oxide 400mg daily upon discharge to home; this may even help with migraine prevention -repeat mag today wnl #hypokalemia - -resolved #recent cough, chest symptoms - -resolved -lungs clear on exam with normal O2 sats -cxr without infiltrates -no pulm complaints since admission #DVT proph - -Eliquis 5mg BID #candidiasis of mouth - -resolved -cont nystatin solution 5ml QID swish/spit a few more days then stop Admission and Anticipated Discharge Date Admission Date: April 01, 2025 Subjective patient reports she had a terrible night was up most of the night with pain needed IV dilaudid frequently since last pm did not eat breakfast due to pain & nausea no vomiting did not eat lunch passing flatus, but minimal stool patient very upset today - tearful/crying she is very frustrated by the worsening of her abdominal pain overnight pain in abdomen is the same pain that brought her to the hospital Review of Systems Review of Systems: cv - no chest pain pulm - no dyspnea gen - no fevers Physical Exam Physical Exam: gen - looks much worse today; crying/tearful; uncomfortable HENT - MMM; thrush plaques on buccal mucosa and tongue resolved; edentulous neck - no JVD heart - RRR, s1 s2, no murmur lungs - CTA b/l, no rales, no wheeze abd - soft, despite report of pain her abdomen is nontender, BS+, ND; no peritoneal signs; no HSM ext - no edema, pulses b/l feet 2+ b Results & Data Results & Data Vital Signs (Past 12 Hours) Vital Signs Temp Pulse Pulse Resp BP Pulse Ox O2 Del Method 04/04/25 15:45 36.6 C 101 H 18 119/82 91 Room Air 04/04/25 14:35 93 H 04/04/25 11:22 36.8 C 95 H 18 121/81 98 Room Air 04/04/25 07:55 36.4 C L 85 18 119/81 95 Room Air 04/04/25 07:03 87 04/04/25 04:26 36.7 C 93 H 20 139/94 99 Room Air Laboratory Results Laboratory Results - last 24 hr 04/04/25 09:20 Sodium 139 Potassium 3.9 Chloride 101 Carbon Dioxide 30 Anion Gap 8 BUN < 2 L Creatinine 0.58 L Est Cr Clr Drug Dosing 101.3 eGFR 113.66 BUN/Creatinine Ratio TNP Glucose 116 H Calcium 9.0 Magnesium 1.9 Lipase 107 H Diagnostic Findings KUB X-Ray 04/04/25 16:07 Clinical history: Pain 2 views of the abdomen were obtained Findings: Gas is seen within mildly prominent small and large bowel loops, which may be due to ileus. No definite renal or ureteral calculi are seen. Calcifications within the pelvis likely represent phleboliths. No osseous abnormality is seen. Surgical clips are seen consistent with prior cholecystectomy. An IUD is present Impression: Suspected mild ileus ACT 112: Positive. There are findings on this exam that require communication between the performing entity and the patient following Patient Test Result Information Act ([place] ACT 112) guidelines. Electronically signed by Pepe Anderson 04-04-2025 5:20 PM PG Care Time/CCT Total # of Minutes Spent Total Time Spent with Patient: Total time spent is greater than 50% in coordination of care (as documented) at patient's floor/unit and/or counseling patient: Coding Level of Care Code 95613 SUB INP/OBS CARE 2/35MIN Diagnoses Acute on chronic pancreatitis K85.90; K86.1 Intractable vomiting with nausea R11.2 Elevated LFTs R79.89 Acute dehydration E86.0 Hypomagnesemia E83.42 Hypokalemia E87.6 Tobacco abuse Z72.0 History of alcohol abuse F10.11 Medical marijuana use Z79.899 Gastroparesis K31.84 Portal vein thrombosis I81 Hx of migraines Z86.69 Candidiasis of mouth and esophagus B37.81; B37.0 Abnormal MRI of abdomen R93.5 Ileus K56.7
[2025-04-04] MEDS: FAMOTIDINE 20MG IV PUSH 20 MG/5 ML SYR IV STA (16:44)
--- NOTE | 2025-04-04 17:21 | XRay Report ---
Clinical history: Pain 2 views of the abdomen were obtained Findings: Gas is seen within mildly prominent small and large bowel loops, which may be due to ileus. No definite renal or ureteral calculi are seen. Calcifications within the pelvis likely represent phleboliths. No osseous abnormality is seen. Surgical clips are seen consistent with prior cholecystectomy. An IUD is present Impression: Suspected mild ileus ACT 112: Positive. There are findings on this exam that require communication between the performing entity and the patient following Patient Test Result Information Act ([place] ACT 112) guidelines. Electronically signed by Pepe Anderson 04-04-2025 5:20 PM
[2025-04-05 07:17] LABS: Hematocrit (blood only) 34.1 % (37.0-47.0); Hemoglobin 11.2 g/dl (12.0-16.0); Immature Granulocytes # (auto) 0.02 K/uL (0.01-0.20); Immature Granulocytes % (auto) 0.3 %; Mean Corpuscular Hemoglobin 30.9 pg (25.0-34.0); Mean Corpuscular Volume 94.2 fL (80.0-100.0); Platelet Count 326 K/uL (130-400); RDW Standard Deviation 55.9 fL (36.4-46.3); Red Blood Count 3.62 M/uL (4.20-5.40); White Blood Count 7.58 K/ul (4.8-10.8)
[2025-04-05 07:44] LABS: Alanine Aminotransferase 21 U/L (7-52); Albumin Globulin Ratio 1.5 (0.9-2); Alkaline Phosphatase 96 U/L (34-104); Anion Gap 5 (3-11); Bilirubin,Total 0.5 mg/dl (0.2-1.0); Blood Urea Nitrogen < 2 mg/dl (6-23); Calcium 8.3 mg/dl (8.6-10.3); Carbon Dioxide 32 mmol/L (21-32); Chloride 103 mmol/L (98-107); Creatinine Clr Calc Pharmacy 106.9 ml/min; Globulin 2.2 gm/dl (2.5-4.0); Glucose 96 mg/dl (70-99(Fasting)); Potassium 3.6 mmol/L (3.5-5.1); Sodium 140 mmol/L (136-145); Total Protein 5.4 gm/dl (6.0-8.3)
[2025-04-05] MEDS: clonazePAM 0.25 MG OD TAB PO PRN (13:09)
--- NOTE | 2025-04-05 14:10 | Gastroenterology Progress Note ---
Date of Service April 05, 2025 Assessment & Plan (1) Ileus: (2) Chronic pancreatitis: Plan Difficult clinical scenario with significant struggles with pain control, though I do feel that narcotics are likely contributing to the ileus. Continue with restricted diet and supportive care. Will discuss further with Dr. Woodward who will advise further regarding her plan. Admission and Anticipated Discharge Date Admission Date: April 01, 2025 Supervising Physician Co-Signing Physician Notes I saw and examined this patient with our nurse practitioner and agree with her assessment and plan. Persistent abdominal pain consistent with chronic pancreatitis. May be element of ileus due to narcotic analgesic. Try to switch to non-narcotic analgesic if possible. Could try to switch to oral pain meds such as tramadol which is less likely the cause and ileus. Hopefully her symptoms will resolve soon. Subjective Patient is 44 yo female with pancreatitis (chronic) and ileus. She notes significant abdominal pain. She does not like the foods on a liquid diet, but was not able to tolerate more food due to worsening pain. She has had loose stools. A KUB shows an ileus. Review of Systems Constitutional: no fever and no chills Cardiovascular: no chest pain Gastrointestinal: + abdominal pain Physical Exam Gastrointestinal (Abdomen): normal bowel sounds, soft, nontender, no hepatosplenomegaly Results & Data Results & Data Vital Signs (Past 12 Hours) Vital Signs Temp Pulse Pulse Resp BP Pulse Ox O2 Del Method 04/05/25 11:26 36.9 C 97 H 18 124/92 97 Room Air 04/05/25 07:16 36.8 C 88 18 121/86 97 Room Air 04/05/25 07:00 91 H 04/05/25 03:30 36.3 C L 89 20 130/80 98 Room Air PG Care Time/CCT Total # of Minutes Spent Total Time Spent with Patient: Total time spent is greater than 50% in coordination of care (as documented) at patient's floor/unit and/or counseling patient: Coding Level of Care Code 23007 SUB INP/OBS CARE 2/35MIN Diagnoses Ileus K56.7 Chronic pancreatitis K86.1
--- NOTE | 2025-04-05 16:29 | Hospitalist Progress Note ---
Date of Service April 05, 2025 Assessment & Plan (1) Acute on chronic pancreatitis: (2) Intractable vomiting with nausea: (3) Elevated LFTs: (4) Acute dehydration: (5) Hypomagnesemia: (6) Hypokalemia: (7) Tobacco abuse: (8) History of alcohol abuse: (9) Medical marijuana use: (10) Gastroparesis: (11) Portal vein thrombosis: (12) Hx of migraines: (13) Candidiasis of mouth and esophagus: (14) Abnormal MRI of abdomen: (15) Ileus: Plan 44yo female with history of chronic pancreatitis, prior alcohol dependence with abstinence since November 2023, chronic tobacco dependence, history of pancreatic pseudocyst, recent hospitalization in February 2025 for diarrhea/colitis, gastropa resis, PVT on Eliquis, and medical THC use who presents from home with refractory upper abdominal pain, nausea, emesis, diarrhea, and inability to eat/drink. Patient reports she was discharged on 03/20 from our hospital after having been diagnosed with colitis. She was eating/drinking normally for about 48 hours after getting home but then her GI symptoms returned - initially abdominal pain, followed by severe nausea with vomiting. #acute on chronic pancreatitis with abnormal LFTs - -MRCP c/w acute pancreatitis -patient reports abstinence from etoh since early 2023 -trigs normal (<100) -had improved clinically & biochemically on 04/03 but then her GI symptoms worsened significantly on 04/04 -possibly due to development of ileus, possibly due to the ongoing pancreatitis -either way downgraded diet to full liquids and remains on IVF -appreciate GI assistance -cont Creon w/ meals #ileus - -2nd to acute pancreatitis -narcotics will worsen too -cont full liquids - no advancement today -passing flatus but no stool -keep K/mag wnl ; recheck both in am -continue walking as tolerated #abnormal MRCP of pancreatic head - -pancreatic head appearance is abnormal, perhaps 2nd to pancreatitis -appreciate consult by Dr Woodward from GI -EUS may be needed in the future to further assess the pancreas -patient made aware of abnormal pancreas on MRCP -[facility] who will help arrange outpatient [facility] GI f/u #dehydration - -2nd to nausea/vomiting/diarrhea/poor PO intake pre-admission -resolved #recent hospitalization for mild colitis - -CT earlier in February with mild colitis -infectious work-up -- c diff + stool Biofire - all negative -diarrhea has improved since that time without specific Rx (took steroids but only briefly) -etiology uncertain #gastroparesis - -intolerant of reglan (TD side effects by report) -zofran/phenergan prn #h/o PVT - -cont Eliquis 5mg BID #chronic medical THC use - noted #chronic tobacco dependence - -nicoderm patch daily #hypomagnesemia - -2nd to vomiting, diarrhea, and poor PO intake -s/p IV mag sulfate replacement with normalization -will recommend mag oxide 400mg daily upon discharge to home; this may even help with migraine prevention -repeat mag today wnl #hypokalemia - -resolved #recent cough, chest symptoms - -resolved -lungs clear on exam with normal O2 sats -cxr without infiltrates #DVT proph - -Eliquis 5mg BID #candidiasis of mouth - -resolved -cont nystatin solution 5ml QID swish/spit a few more days then stop Admission and Anticipated Discharge Date Admission Date: April 01, 2025 Subjective tele overnight wnl (NSR or mild sinus tach only) passing flatus no stool overnight or today she states "I'm having another bad day" reports ongoing abdominal pain reports ongoing nausea no emesis despite her report of her GI symptoms she requests dietary advancement she does not like the full liquids diet - she does not eat/drink dairy products Review of Systems Review of Systems: cv - no chest pain pulm - no dyspnea GI - feels the same as yesterday - voiding w/o difficulty Physical Exam Physical Exam: gen - depressed/flat affect today, but answers questions; comfortable HENT - MMM; thrush plaques resolved neck - no JVD heart - RRR, s1 s2, no murmur lungs - CTA b/l, no rales, no wheeze abd - soft, again nontender to palpation, BS+, ND; no peritoneal signs; no HSM ext - no edema, pulses b/l feet 2+ Results & Data Results & Data Vital Signs (Past 12 Hours) Vital Signs Temp Pulse Pulse Resp BP Pulse Ox O2 Del Method 04/05/25 15:19 36.7 C 95 H 18 107/74 95 Room Air 04/05/25 14:46 93 H 04/05/25 11:26 36.9 C 97 H 18 124/92 97 Room Air 04/05/25 07:16 36.8 C 88 18 121/86 97 Room Air 04/05/25 07:00 91 H Laboratory Results Laboratory Results - last 24 hr 04/05/25 06:37 WBC 7.58 RBC 3.62 L Hgb 11.2 L Hct 34.1 L MCV 94.2 MCH 30.9 MCHC 32.8 RDW Std Deviation 55.9 H RDW Coeff of Jessica 16.1 H Plt Count 326 MPV 9.5 Immature Gran % (Auto) 0.3 Neut % (Auto) 48.0 Lymph % (Auto) 37.9 [place] % (Auto) 10.3 Eos % (Auto) 3.0 Baso % (Auto) 0.5 Neut # (Auto) 3.64 Lymph # (Auto) 2.87 [place] # (Auto) 0.78 H Eos # (Auto) 0.23 Baso # (Auto) 0.04 Immature Gran # (Auto) 0.02 Sodium 140 Potassium 3.6 Chloride 103 Carbon Dioxide 32 Anion Gap 5 BUN < 2 L Creatinine 0.55 L Est Cr Clr Drug Dosing 106.9 eGFR 115.12 BUN/Creatinine Ratio TNP Glucose 96 Calcium 8.3 L Total Bilirubin 0.5 AST 17 ALT 21 Alkaline Phosphatase 96 Total Protein 5.4 L Albumin 3.2 L Globulin 2.2 L Albumin/Globulin Ratio 1.5 PG Care Time/CCT Total # of Minutes Spent Total Time Spent with Patient: Total time spent is greater than 50% in coordination of care (as documented) at patient's floor/unit and/or counseling patient: Coding Level of Care Code 40383 SUB INP/OBS CARE 2/35MIN Diagnoses Acute on chronic pancreatitis K85.90; K86.1 Intractable vomiting with nausea R11.2 Elevated LFTs R79.89 Acute dehydration E86.0 Hypomagnesemia E83.42 Hypokalemia E87.6 Tobacco abuse Z72.0 History of alcohol abuse F10.11 Medical marijuana use Z79.899 Gastroparesis K31.84 Portal vein thrombosis I81 Hx of migraines Z86.69 Candidiasis of mouth and esophagus B37.81; B37.0 Abnormal MRI of abdomen R93.5 Ileus K56.7
[2025-04-06 08:24] LABS: Anion Gap 4 (3-11); Blood Urea Nitrogen < 2 mg/dl (6-23); Calcium 8.5 mg/dl (8.6-10.3); Carbon Dioxide 32 mmol/L (21-32); Chloride 107 mmol/L (98-107); Creatinine Clr Calc Pharmacy 113.0 ml/min; Glucose 89 mg/dl (70-99(Fasting)); Magnesium 1.9 mg/dl (1.7-2.4); Potassium 3.8 mmol/L (3.5-5.1); Sodium 143 mmol/L (136-145)
[2025-04-06] MEDS: LIDOCAINE VISCOUS 2% 15 ML UDC MT ONE (11:35)
[2025-04-06] MEDS: ALUMINUM/MAGNESIUM SUSP 30 ML UDC PO STA (11:35)
--- NOTE | 2025-04-06 12:21 | Communication Note ---
Date of Service: April 06, 2025 Patient is a 44 yo female with chronic pancreatitis and ileus. Patient is very upset due to her current pain management. She was reportedly given oxycodone ( per the active order) but wanted Dilaudid instead. This morning she was threatening to leave and requested to be given a new nurse. From a GI standpoint, she does have an outpatient appointment to address her chronic pancreatitis next week. She has required EUS & ERCP in the past. She reported worsening abdominal pain when she advanced her diet, but does not like the food options for the liquid diet. Overall pain management seems to be the primary reason for admission at the present time. Will discuss further with Dr. Woodward who will round on patient this afternoon.
--- NOTE | 2025-04-06 17:51 | Hospitalist Progress Note ---
Date of Service April 06, 2025 Assessment & Plan (1) Acute on chronic pancreatitis: (2) Elevated LFTs: (3) Hypomagnesemia: (4) Hypokalemia: (5) Medical marijuana use: (6) Gastroparesis: (7) Portal vein thrombosis: (8) Candidiasis of mouth and esophagus: Plan 44yo female with history of chronic pancreatitis, prior alcohol dependence with abstinence since November 2023, chronic tobacco dependence, history of pancreatic pseudocyst, recent hospitalization in February 2025 for diarrhea/colitis, gastroparesis, PVT on Eliquis, and medical THC use who presents from home with refractory upper abdominal pain, nausea, emesis, diarrhea, and inability to eat/drink. Patient reports she was discharged on 03/20 from our hospital after having been diagnosed with colitis. She was eating/drinking normally for about 48 hours after getting home but then her GI symptoms returned - initially abdominal pain, followed by severe nausea with vomiting. #acute on chronic pancreatitis with abnormal LFTs - -MRCP c/w acute pancreatitis. Elevated bilirubin, AST/ALT and alk phos essentially normalized 24 hours after presentation -patient reports abstinence from etoh since early 2023 -trigs normal (<100) -had improved clinically & biochemically on 04/03 but then her GI symptoms worsened significantly on 04/04 possibly due to development of ileus, possibly due to the ongoing pancreatitis -cont Creon w/ meals still with significant pain and receiving IV and p.o. opioids -may be slightly better today consider bland diet since she will not take anything from the full liquid menu #ileus - -2nd to acute pancreatitis -narcotics will worsen too -passing flatus but no stool, no distention on exam today and no vomiting since the ED -keep K/mag wnl - potassium 3.8 and magnesium 1.9 both of which are normal today - encouraged ambulation in the hallway #abnormal MRCP of pancreatic head - -pancreatic head appearance is abnormal, perhaps 2nd to pancreatitis -appreciate consult by Dr Woodward from GI -EUS may be needed in the future to further assess the pancreas -patient made aware of abnormal pancreas on MRCP -I corresponded with the [facility] Nurse Navigator who will help arrange outpatient [facility] GI f/u #recent hospitalization for mild colitis - -CT earlier in February with mild colitis -infectious work-up -- c diff + stool Biofire - all negative -diarrhea has improved since that time without specific Rx (took steroids but only briefly) #gastroparesis - -intolerant of reglan (TD side effects by report) -zofran/phenergan prn #h/o PVT - -cont Eliquis 5mg BID #chronic medical THC use - noted #chronic tobacco dependence - -nicoderm patch daily #hypomagnesemia - -2nd to vomiting, diarrhea, and poor PO intake - replaced and resolved oral magnesium supplement at home if she can tolerate it #hypokalemia - -resolved #recent cough, chest symptoms - - chest x-ray clear and no hypoxia. resolved #candidiasis of mouth - -resolved -cont nystatin solution 5ml QID swish/spit a few more days then stop #DVT proph - -Eliquis 5mg BID Admission and Anticipated Discharge Date Admission Date: April 01, 2025 Subjective for me this morning she reported some improvement in her abdominal pain though still significant. She did get some sleep last night which is better. She has not vomited. She is tolerating a clear liquid diet and drinking a lot without nausea. She states that she is passing a significant amount of gas, abdominal is not distended later in a.m. was upset with RN at bedside because oral pain medication was offered prior to going to IV, which is appropriate and corresponds with current orders shortly after reported chest pain which resolved with GI cocktail Physical Exam 2 Physical Exam: Last 24h vitals reviewed GEN: no acute distress, sleeping aroused to gentle tactile stimulation HEENT: pupils equal, sclerae anicteric, moist MM RESP: normal WOB, CTAB CV: reg no mrg ABD: soft, tender to palpation in epigastric area without rebound rigidity or guarding, bowel sounds hypotonic, not distended : no murillo SKIN: warm and dry, no generalized rashes NEURO: AOx person, place, and situation. Face symmetric, speech normal, moves 4 ext spontaneously and equally Results & Data Results & Data Vital Signs (Past 12 Hours) Vital Signs Temp Pulse Pulse Resp BP BP Pulse Ox 04/06/25 13:02 99 H 04/06/25 11:13 36.7 C 118 H 18 120/86 95 04/06/25 11:00 04/06/25 07:34 36.9 C 96 H 18 130/91 97 04/06/25 07:30 84 Pulse Ox O2 Del Method O2 Del Method 04/06/25 13:02 04/06/25 11:13 Room Air 04/06/25 11:00 95 Room Air 04/06/25 07:34 Room Air 04/06/25 07:30 Laboratory Results 04/05/25 06:37 04/06/25 06:41 PG Care Time/CCT Total # of Minutes Spent Total Time Spent with Patient: Total time spent is greater than 50% in coordination of care (as documented) at patient's floor/unit and/or counseling patient: Coding Level of Care Code 50970 SUB INP/OBS CARE 2/35MIN Diagnoses Acute on chronic pancreatitis K85.90; K86.1 Elevated LFTs R79.89 Hypomagnesemia E83.42 Hypokalemia E87.6 Medical marijuana use Z79.899 Gastroparesis K31.84 Portal vein thrombosis I81 Candidiasis of mouth and esophagus B37.81; B37.0
[2025-04-07 12:59] LABS: Hydrocodone Urine NEGATIVE ng/mL (<50); Hydromor Urine NEGATIVE ng/mL (<50); Marijuana Quant, GCMS Urine 492 ng/mL (<5); Noroxycodone Urine >10000 ng/mL (<50); Oxymorph Urine 1220 ng/mL (<50)
--- NOTE | 2025-04-07 13:33 | Gastroenterology Progress Note ---
Date of Service April 07, 2025 Assessment & Plan (1) Chronic pancreatitis: Plan: -Continue pancreatic enzymes -Continue pain control per primary team -Continue dietary advancement -Continue to move and walk while hospitalized -Patient has an upcoming appointment with [facility] Admission and Anticipated Discharge Date Admission Date: April 01, 2025 Supervising Physician Co-Signing Physician Notes I saw and examined this patient with our nurse practitioner and agree with her assessment and plan. Improved today less pain. Diet being advanced to low-fat diet. If she tolerates diet probable discharge in the next 24 hours. Subjective Patient has had improvement of her abdominal pain from the time of admission. She is moving her bowels and is up moving out of bed. Review of Systems Gastrointestinal: + abdominal pain (improving) Physical Exam Constitutional: well developed Gastrointestinal (Abdomen): normal bowel sounds, soft, nontender, no hepatosplenomegaly Psychiatric: Orientation: alert and oriented x 3 Results & Data Results & Data Vital Signs (Past 12 Hours) Vital Signs Temp Pulse Resp BP BP Pulse Ox O2 Del Method 04/07/25 10:16 36.8 C 79 16 128/87 120/86 97 04/07/25 07:46 36.8 C 79 16 128/87 97 Room Air 04/07/25 05:01 36.9 C 83 18 114/75 96 Room Air PG Care Time/CCT Total # of Minutes Spent Total Time Spent with Patient: Total time spent is greater than 50% in coordination of care (as documented) at patient's floor/unit and/or counseling patient: Coding Level of Care Code 37560 SUB INP/OBS CARE 2/35MIN Diagnoses Chronic pancreatitis K86.1
--- NOTE | 2025-04-07 17:11 | Hospitalist Progress Note ---
Date of Service April 07, 2025 Assessment & Plan (1) Acute on chronic pancreatitis: (2) Elevated LFTs: (3) Hypomagnesemia: (4) Hypokalemia: (5) Medical marijuana use: (6) Gastroparesis: (7) Portal vein thrombosis: (8) Candidiasis of mouth and esophagus: Plan 44yo female with history of chronic pancreatitis, prior alcohol dependence with abstinence since November 2023, chronic tobacco dependence, history of pancreatic pseudocyst, recent hospitalization in February 2025 for diarrhea/colitis, gastroparesis, PVT on Eliquis, and medical THC use who presents from home with refractory upper abdominal pain, nausea, emesis, diarrhea, and inability to eat/drink. Patient reports she was discharged on 03/20 from our hospital after having been diagnosed with colitis. She was eating/drinking normally for about 48 hours after getting home but then her GI symptoms returned - initially abd ominal pain, followed by severe nausea with vomiting. #acute on chronic pancreatitis with abnormal LFTs - -MRCP c/w acute pancreatitis. Elevated bilirubin, AST/ALT and alk phos essentially normalized 24 hours after presentation -patient reports abstinence from etoh since early 2023 -trigs normal (<100) -had improved clinically & biochemically on 04/03 but then her GI symptoms worsened significantly on 04/04 possibly due to development of ileus, possibly due to the ongoing pancreatitis -cont Creon w/ meals improving try advance diet to low fat, working on transition to oral pain medications -has follow up with [facility] soon #ileus - -2nd to acute pancreatitis and/or opioid side effects -resolved #abnormal MRCP of pancreatic head - -pancreatic head appearance is abnormal, perhaps 2nd to pancreatitis -appreciate consult by Dr Woodward from GI -EUS may be needed in the future to further assess the pancreas -patient made aware of abnormal pancreas on MRCP -[facility] GI follow up is scheduled #recent hospitalization for mild colitis - -CT earlier in February with mild colitis -infectious work-up -- c diff + stool Biofire - all negative -diarrhea has improved since that time without specific Rx (took steroids but only briefly) -GI follow up #gastroparesis - -intolerant of reglan (TD side effects by report) -zofran/phenergan prn #h/o PVT - -cont Eliquis 5mg BID #chronic medical THC use - noted #chronic tobacco dependence - -nicoderm patch daily #hypomagnesemia - -2nd to vomiting, diarrhea, and poor PO intake - replaced and resolved oral magnesium supplement at home if she can tolerate it - would not try until diarrhea completely resolved. discussed with her #hypokalemia - -resolved. AM BMP. discharge on oral potassium supplement #recent cough, chest symptoms - - chest x-ray clear and no hypoxia. resolved #candidiasis of mouth - treated with nystatin S/S -resolved #DVT proph - -Eliquis 5mg BID She has turned the corner and hoping for discharge home tomorrow Admission and Anticipated Discharge Date Admission Date: April 01, 2025 Subjective improved though upper abdomen still painful and still has nausea used a lot less IV opioid past 36h had BM yesterday and several today hungry Physical Exam Physical Exam: Last 24h vitals reviewed GEN: awake sitting on EOB HEENT: pupils equal, sclerae anicteric, moist MM RESP: normal WOB CV: ABD: soft, tender to palpation in right side of epigastric area without rebound rigidity or guarding, bowel sounds active, not distended : no murillo SKIN: warm and dry, no generalized rashes NEURO: AOx person, place, and situation. Face symmetric, speech normal, moves 4 ext spontaneously and equally Results & Data Results & Data Vital Signs (Past 12 Hours) Vital Signs Temp Pulse Resp BP BP Pulse Ox O2 Del Method 04/07/25 15:16 36.6 C 86 17 129/87 98 Room Air 04/07/25 10:16 36.8 C 79 16 128/87 120/86 97 04/07/25 07:46 36.8 C 79 16 128/87 97 Room Air PG Care Time/CCT Total # of Minutes Spent Total Time Spent with Patient: Total time spent is greater than 50% in coordination of care (as documented) at patient's floor/unit and/or counseling patient: Coding Level of Care Code 72407 SUB INP/OBS CARE 2/35MIN Diagnoses Acute on chronic pancreatitis K85.90; K86.1 Elevated LFTs R79.89 Hypomagnesemia E83.42 Hypokalemia E87.6 Medical marijuana use Z79.899 Gastroparesis K31.84 Portal vein thrombosis I81 Candidiasis of mouth and esophagus B37.81; B37.0
--- NOTE | 2025-04-07 18:49 | Electrocardiogram Report ---
Test Reason : Blood Pressure : */* mmHG Vent. Rate : 112 BPM Atrial Rate : 112 BPM P-R Int : 132 ms QRS Dur : 78 ms QT Int : 318 ms P-R-T Axes : 69 43 45 degrees QTcB Int : 434 ms Sinus tachycardia Otherwise normal ECG When compared with ECG of 01-Apr-2025 08:35, No significant change was found Confirmed by Magen Mello [id number] on 04/07/2025 6:49:13 PM Referred By: REFERRED SELF Confirmed By: Magen Mello
[2025-04-07 20:42] VITALS: RESP 16
[2025-04-08 07:08] VITALS: BP 126/82; PULSE 86; TEMP 98.6; O2SAT 93
[2025-04-08 08:25] LABS: Anion Gap 3.0 (3-11); Blood Urea Nitrogen 2.0 mg/dl (6-23); Calcium 8.7 mg/dl (8.6-10.3); Carbon Dioxide 32.0 mmol/L (21-32); Chloride 109.0 mmol/L (98-107); Creatinine Clr Calc Pharmacy 125.0 ml/min; Glucose 85.0 mg/dl (70-99(Fasting)); Potassium 3.9 mmol/L (3.5-5.1); Sodium 144.0 mmol/L (136-145)
--- NOTE | 2025-04-08 11:26 | Gastroenterology Progress Note ---
Date of Service April 08, 2025 Assessment & Plan (1) Chronic alcoholic pancreatitis: Plan: Continue pancreatic enzymes prior to meals/snacks upon discharge. Patient did have an appointment with [facility] scheduled, but the outpatient [facility] chart notes she has no-showed/cancelled many appointments and there is not a current planned appointment listed. There is documentation in [facility] that Dr. Perez requested her hospital imaging and felt she would likely require EUS in 4-6 weeks. Perhaps case management can ensure she has a firm office visit with their team before she is discharged. Will sign off from a GI standpoint. Please re- consult if there is an unexpected change. Admission and Anticipated Discharge Date Admission Date: April 01, 2025 Supervising Physician Co-Signing Physician Notes I saw and examined this patient with our nurse practitioner and agree with her assessment and plan. Not see patient prior to discharge. Clinically is improved and will follow-up as an outpatient with her GI physician. Subjective Patient is a 44 yo female with chronic pancreatitis. She received IV Dilaudid prior to my arrival today and is sleeping soundly in bed. Physical Exam Constitutional: no acute distress Respiratory: normal respiratory effort Cardiovascular: Rate/Rhythm: regular rate Gastrointestinal (Abdomen): Inspection/Auscultation: abdomen normal to inspection Percussion/Palpation: abdomen soft Psychiatric: Orientation: alert and oriented x 3 Results & Data Results & Data Vital Signs (Past 12 Hours) Vital Signs Temp Pulse Resp BP Pulse Ox O2 Del Method 04/08/25 07:05 37.0 C 86 16 126/82 93 Room Air PG Care Time/CCT Total # of Minutes Spent Total Time Spent with Patient: Total time spent is greater than 50% in coordination of care (as documented) at patient's floor/unit and/or counseling patient: Coding Level of Care Code 18041 SUB INP/OBS CARE 2/35MIN Diagnoses Chronic alcoholic pancreatitis K86.0
--- NOTE | 2025-04-08 17:57 | Discharge Summary ---
Discharge Summary Date of Service April 08, 2025 Principal Dx & Hospital Course #1 = Principal Diagnosis (1) Acute on chronic pancreatitis: (2) Elevated LFTs: (3) Medical marijuana use: (4) Gastroparesis: (5) Portal vein thrombosis: (6) Candidiasis of mouth and esophagus: Plan 44yo female with history of chronic pancreatitis, prior alcohol dependence with abstinence since November 2023, chronic tobacco dependence, history of pancreatic pseudocyst, recent hospitalization in February 2025 for diarrhea/colitis, gastroparesis, PVT on Eliquis, and medical THC use who presents from home with refractory upper abdominal pain, nausea, emesis, diarrhea, and inability to eat/drink. Patient reports she was discharged on 03/20 from our hospital after having been diagnosed with colitis. She was eating/drinking normally for about 48 hours after getting home but then her GI symptoms returned - initially abdominal pain, followed by severe nausea with vomiting. #acute on chronic pancreatitis with abnormal LFTs - -MRCP c/w acute pancreatitis. Elevated bilirubin, AST/ALT and alk phos essentially normalized 24 hours after presentation -patient reports abstinence from etoh since early 2023 -trigs normal (<100) -had improved clinically & biochemically on 04/03 but then her GI symptoms worsened significantly on 04/04 possibly due to development of ileus, possibly due to the ongoing pancreatitis -started to improve again a few days later, having stools, and able to advance to low fat diet -cont Creon w/ meals improving try advance diet to low fat, working on transition to oral pain medications -has follow up with [facility] - we scheduled the appt for her 04/20. Anticipate EUS to follow up MRCP findings -she is needing increased opioid doses because of acute pancreatitis pain. taking 10 mg oxycodone multiple times a day at this point, though much less overall opioids than a few days ago (30%) -wrote Rx for oxycodone 10 mg #30 which should be a 5-7 days supply -chronic oxycodone is 5 mg tid prn [place] [facility] [place] - sent a message #ileus - -2nd to acute pancreatitis and/or opioid side effects -resolved #abnormal MRCP of pancreatic head - -pancreatic head appearance is abnormal, perhaps 2nd to pancreatitis -appreciate consult by Dr Woodward from GI -EUS may be needed in the future to further assess the pancreas -patient made aware of abnormal pancreas on MRCP -[facility] follow up is scheduled #recent hospitalization for mild colitis - -CT earlier in February with mild colitis -infectious work-up -- c diff + stool Biofire - all negative -diarrhea has improved since that time without specific Rx (took steroids but only briefly) -GI follow up #gastroparesis - #chronic medical THC use - possibly cannabis hyperemesis syndrome -intolerant of reglan (TD side effects by report) -explained effect of opioids on nausea, gastric emptying, bowel function -zofran/phenergan prn #h/o portal venous thrombosis - -cont Eliquis 5mg BID #chronic tobacco dependence - -nicoderm patch daily #hypomagnesemia - -2nd to vomiting, diarrhea, and poor PO intake - replaced and resolved oral magnesium supplement at home if she can tolerate it - would not try until diarrhea completely resolved. discussed with her #hypokalemia - -resolved. AM BMP. discharge on oral potassium supplement #recent cough, chest symptoms - - chest x-ray clear and no hypoxia. resolved #candidiasis of mouth - treated with nystatin S/S -resolved Notes For Next Care Provider GI follow up Considering colonoscopy, EUS Admission HPI Per Admitting Provider 44yo female with history of chronic pancreatitis, prior alcohol dependence with abstinence since November 2023, chronic tobacco dependence, history of pancreatic pseudocyst, recent hospitalization in February 2025 for diarrhea/colitis, gastroparesis, PVT on Eliquis, and medical THC use who presents from home with refractory upper abdominal pain, nausea, emesis, diarrhea, and inability to eat/drink. Patient reports she was discharged on 03/20 from our hospital and was eating/drinking normally for about 48 hours after getting home. However, her GI symptoms then returned - initially abdominal pain, then ultimately nausea with vomiting. The abdominal pain is in the high epigastric region and does radiate to the mid-back. Her recent diarrhea did improve after the February hospitalization. She was prescribed prednisone at time of hospital discharge but she did not complete the prednisone taper. She was to have a f/u appointment with [facility] on 03/21 but unfortunately did not make it to that appointment. She was last able to eat & keep solids down earlier this week - probably about Friday. Last liquid intake that she kept down was about Friday. The vomiting became essentially constant since Friday and, given the concomitant abdominal pain, she came to [facility] for evaluation early this am. Use of oxycodone at home provided NO pain relief the last few days. Denies any fevers. Denies any recent infectious symptoms/illness - although she had a recent cough for about 2 weeks that has resolved. Denies any alcohol intake since November 2023. Denies any recent change in her medicines. Discharge Exam Last 24h vitals reviewed GEN: sleeping deeply but eventually aroused and alert HEENT: pupils equal and reactive but dilated RESP: normal WOB CV: reg ABD: soft, much less tender to palpation in right side of epigastric area no rrg, ND, +BT : no murillo SKIN: warm and dry, no generalized rashes NEURO: AOx person, place, and situation. Face symmetric, speech normal, moves 4 ext spontaneously and equally Discharge Plan Discharge Items Patient Disposition: Home - Self-Care Reason For Visit: ACUTE/CHRONIC PANCREATITIS Discharge Diagnosis: Acute on chronic pancreatitis Condition on Discharge: Fair Activity: Resume your previous activity Non-emergency contact: Primary Care Provider Call non-emergency contact if: you have any medication questions and your symptoms worsen Follow-up/Referrals: Radha Alicea MD [Primary Care Provider] - 04/26/25 1:30 pm Veronica Britt CRNP [Outside Practitioners] - 04/20/25 11:00 am (Please arrive 15 minutes prior to scheduled appointment GI follow up) Diet: Low Fat Addtl Attending Provider Instructions: You were treated for acute pancreatitis Stay on a low fat diet at least until your abdominal pain is improved. Avoid all alcohol - any amount could trigger a pancreatitis flare in your case Follow up with [facility] as scheduled 04/20 at [address] operate heavy machinery while taking opioid medications, they are sedating Try to wean the dose down to your baseline as soon as possible, to prevent problems like flaring up your gastroparesis or causing bowels to slow down It was a pleasure taking care of you in the hospital, Scarlett Millan MD Pending Studies at Discharge: No Stand-Alone Forms: My [facility], Pain - Opioid Pain Management, Work/School Release, Smoking Cessation Medications and DC Order Prescriptions: Shawn Milton 36,000-114,000- 180,000 unit Capsule,Delayed Release(Dr/Ec) 3 cap PO AC Qty: 180 0RF oxycodone 10 mg tablet 10 mg PO Q4H PRN (Reason: pain) Qty: 30 0RF ondansetron 4 mg tablet,disintegrating 4 mg PO Q6H PRN (Reason: nausea and vomiting) Qty: 30 0RF Continued mecobalamin (vitamin B12) [B12 Active] 1,000 mcg tablet,chewable 1,000 mcg PO QAM Qty: 100 0RF baclofen 20 mg tablet 20 mg PO TID PRN (Reason: neck pain/muscle spasm) Qty: 270 3RF ondansetron 4 mg tablet,disintegrating 4 mg PO Q6H PRN (Reason: Nausea And Vomiting) 30 Days Qty: 60 2RF Rx Instructions: TAKE 1 TABLET BY MOUTH EVERY 6 HOURS NEEDED FOR NAUSEA Creon 36,000-114,000- 180,000 unit capsule,delayed release(DR/EC) 3 cap PO TID 90 Days Qty: 810 3RF Rx Instructions: With meals Eliquis 5 mg tablet 5 mg PO BID Qty: 90 3RF gabapentin 600 mg tablet 600 mg PO TID PRN (Reason: Pain) Qty: 90 0RF clonazepam 0.5 mg tablet 0.25 mg PO BID PRN (Reason: anxiety) 28 Days Qty: 22 0RF Rx Instructions: 4wk supply methocarbamol 750 mg tablet 750 mg PO TID PRN (Reason: pain) Qty: 90 1RF promethazine 25 mg tablet 25 mg PO Q6H PRN (Reason: nausea and vomiting) Qty: 12 0RF oxycodone 5 mg tablet 5 mg PO TID PRN (Reason: pain) 14 Days Qty: 32 0RF pantoprazole 40 mg tablet,delayed release (DR/EC) 40 mg PO BID Qty: 180 3RF fluoxetine 60 mg tablet 60 mg PO DAILY Qty: 30 11RF Mirena 21 mcg/24hr (up to 8 yrs) 52 mg intrauterine device 1 device intrauterine DIRECTED sumatriptan succinate 100 mg tablet 100 mg PO DAILY PRN (Reason: migraine/headache) Qty: 20 3RF Rx Instructions: TAKE 1 TABLET BY MOUTH NEEDED FOR MIGRAINE/HEADACHE. MAY REPEAT 1 DOSE AFTER 1-2 HOURS cholecalciferol (vitamin D3) 250 mcg (10,000 unit) capsule 250 mcg PO QAM folic acid 1 mg tablet 1 mg PO QAM Discontinued Suflave 178.7-7.3-0.5 gram recon soln See Rx Instructions PO .COMPLEX Qty: 2 0RF Rx Instructions: orally; orally; TAKE FIRST DOSE AT 6 PM AND SECOND DOSE 6 HOURS PRIOR TO PROCEDURE BIN: [id number] PCN: [id number] GROUP: [id number] Discharge Orders: Discharge Order (Routine); Ordered 04/08/25 Ordered By: Scarlett Millan Admission Data Admit Date/Time: 04/01/25 08:31 Attending Provider: Scarlett Millan Admit Provider: Camilo Guajardo Primary Care Provider: Radha Alicea Other Providers: Camilo Guajardo; Italo Woodward I Other Interventions: Discharge Summary Assessment (RN) Last Done: 04/07/25 10:16 Hospital Stay Data Consultations 04/01/25 07:19 ED Decision to Admit Stat 04/01/25 15:25 Consult Gastroenterology Routine Diagnostic Imagining Performed 04/01/25 08:25 MR MRCP Stat Pending Results Patient Have Any Pending Studies at Discharge: No Discharge Instructions Given to Patient (Per Discharging Provider) You were treated for acute pancreatitis Stay on a low fat diet at least until your abdominal pain is improved. Avoid all alcohol - any amount could trigger a pancreatitis flare in your case Follow up with [facility] as scheduled 04/20 at [address] operate heavy machinery while taking opioid medications, they are sedating Try to wean the dose down to your baseline as soon as possible, to prevent problems like flaring up your gastroparesis or causing bowels to slow down It was a pleasure taking care of you in the hospital, Scarlett Millan MD Total Time Total Time Spent Total Time Spent (In Minutes): I personally spent: 45 minutes today on clinical care activities including: reviewing chart notes and vital signs reviewing labs discussion with collection systems consultant(s) management scientist discussion with acute care surgeon to arrange tight follow-up examining and counseling the patient communication to primary care writing prescriptions, discharge instructions documentation Coding Level of Care Code 12574 INP/OBS DISCH >30 MIN Diagnoses Acute on chronic pancreatitis K85.90; K86.1 Elevated LFTs R79.89 Medical marijuana use Z79.899 Gastroparesis K31.84 Portal vein thrombosis I81 Candidiasis of mouth and esophagus B37.81; B37.0
== END 2025-04-08 14:15 | disposition home or self-care (01) | DRG 438 ==
LOC: ED 05:14 → 2W 08:31 → INTOOBSV 08:31 → SUATTDRO 08:31 → 2W 10:27 → 3E 04-07 11:37

== ENCOUNTER 2025-05-19 09:08 | Inpatient (IN) ==
[2025-05-19 09:50] LABS: Hematocrit (blood only) 44.2 % (37.0-47.0); Hemoglobin 14.8 g/dl (12.0-16.0); Immature Granulocytes # (auto) 0.01 K/uL (0.01-0.20); Immature Granulocytes % (auto) 0.1 %; Mean Corpuscular Hemoglobin 29.9 pg (25.0-34.0); Mean Corpuscular Volume 89.3 fL (80.0-100.0); Platelet Count 410 K/uL (130-400); RDW Standard Deviation 49.8 fL (36.4-46.3); Red Blood Count 4.95 M/uL (4.20-5.40); White Blood Count 8.63 K/ul (4.8-10.8)
--- NOTE | 2025-05-19 09:50 | XRay Report ---
XR chest 1V portable CLINICAL HISTORY: Chest pain, nonspecific COMPARISON STUDY: 04/01/2025 FINDINGS: Heart size and pulmonary vasculature are normal. Stable mildly hyperexpanded lungs. No cons olidation or pleural effusion. No pneumothorax. IMPRESSION: No acute findings. ACT 112: Negative or not required by law. Electronically signed by: Kevin Knox M.D. 05/19/2025 9:49 AM
[2025-05-19] MEDS: ONDANSETRON INJ 2 MG/ML 2 ML VIAL IV STA (09:55)
[2025-05-19] MEDS: SODIUM CHLORIDE 0.9% 1,000 ML IV STA (09:55)
[2025-05-19 10:09] LABS: Alanine Aminotransferase 77.0 U/L (7-52); Albumin Globulin Ratio 1.3 (0.9-2); Alkaline Phosphatase 351.0 U/L (34-104); Anion Gap 18.0 (3-11); Bilirubin,Total 0.6 mg/dl (0.2-1.0); Blood Urea Nitrogen 8.0 mg/dl (6-23); Calcium 9.3 mg/dl (8.6-10.3); Carbon Dioxide 20.0 mmol/L (21-32); Chloride 99.0 mmol/L (98-107); Creatinine Clr Calc Pharmacy 80.4 ml/min; Globulin 3.5 gm/dl (2.5-4.0); Glucose 134.0 mg/dl (70-99(Fasting)); Lipase 31.0 U/L (11-82); Potassium 4.3 mmol/L (3.5-5.1); Sodium 137.0 mmol/L (136-145); Total Protein 8.0 gm/dl (6.0-8.3)
[2025-05-19] MEDS: LORazepam 1 MG/1 ML SYR ED Inj Use IV STA (10:42)
[2025-05-19 10:48] LABS: Appearance Urine Clear (Clear); Bacteria Urine Automated None Seen (None Seen); Cast Urine Automated 0-2 /lpf (0-2); Epithelial Cell Urine Auto 0-2 /hpf (0-2); Glucose Urine UA Negative (Negative); RBC Urine Automated 0-2 /hpf (0-2); WBC Urine Automated 0-5 /hpf (0-5)
[2025-05-19 10:51] LABS: Magnesium 2.2 mg/dl (1.7-2.4)
[2025-05-19] MEDS: OPTIRAY 320 100ml IV ONE (11:08)
--- NOTE | 2025-05-19 11:37 | CT Scan Report ---
CT SCAN OF THE ABDOMEN AND PELVIS WITH IV CONTRAST CLINICAL HISTORY: Abdominal pain. COMPARISON STUDY: CT of the abdomen and pelvis March 18, 2025, MRCP April 01, 2025 and KUB April 04, 2025 TECHNIQUE: Following the IV administration of 94 cc of Optiray 320, CT scan of the abdomen and pelvi s is performed from the lung bases to the proximal femora. Images are reviewed in the axial, sagittal , and coronal planes. IV contrast was administered without complication. A dose lowering technique wa s utilized adhering to the principles of ALARA. CT DOSE: 367.45 mGy.cm FINDINGS: Visualized portions of the lung bases are unremarkable. There is no pneumatosis, free air o r portal venous gas. There are no hepatic lesions. There is hepatic steatosis. Mild biliary ductal di latation is unchanged. The common bile duct measures 1 cm in caliber. This is likely related to previ ous cholecystectomy. There is no pancreatic ductal dilatation. Hypodensity within the pancreatic head and uncinate process with associated multifocal calcifications is similar to prior exam. There is mi nimal adjacent stranding. This was also shown on prior exam. No well-defined lesion is identified by CT. Spleen, adrenal glands and kidneys are unremarkable with exception of small bilateral renal calcu li. There are no ureteral calculi. There is no hydronephrosis. Bladder is mildly distended. The appen charles is normal. There is no evidence for a bowel obstruction. The right colon is fluid-filled with mil d wall thickening, decreased compared to prior CT. Major vasculature is patent. IMPRESSION: 1. Hypodensity with associated multifocal calcifications within the pancreatic head and uncinate proc ess suggestive of the sequela of chronic pancreatitis. No lesion identified however imaging follow-up to ensure stability is recommended to exclude the less likely possibility of an underlying mass. No change in minimal adjacent infiltration which may be chronic however acute on chronic pancreatitis co uld appear similar. Findings could be correlated as lipase level. 2. No change in biliary ductal dilatation. This is likely related to cholecystectomy although correla tion with obstructive liver function tests is recommended. 3. Hepatic steatosis. 4. No bowel obstruction. Normal appendix. 5. Mildly fluid-filled right colon with minimal wall thickening, decreased since prior exam. This may represent a mild colitis. ACT 112: Negative or not required by law. Electronically signed by: José Miguel Bruno M.D. 05/19/2025 11:36 AM
[2025-05-19 11:41] LABS: Amphetamines+Metham, Urine Neg (Neg); MDMA (Ecstacy), Urine Neg (Neg); Marijuana, Urine Pos (Neg)
--- NOTE | 2025-05-19 12:05 | Emergency Department Note ---
Impression & Plan Alcohol abuse, Alcohol withdrawal, Benzodiazepine withdrawal ED Provider Note CHIEF COMPLAINT: Withdrawal from clonazepam and oxycodone HISTORY OF PRESENTING ILLNESS: Patient is a 44-year-old female presents to the emergency department today for complaints of clonazepam and oxycodone withdrawal. She reports that her PCP cut her off of both medications and is refusing to fill her prescription. After speaking with her PCP it appears that the patient was admitted to [facility] in March and had tested positive for alcohol and marijuana which was a breech of her contract for controlled substances. The PCP had reached out to get to appointments scheduled and the patient was a no-show for both appointments. The PCP office has reached out multiple times without any response from the patient. Her last prescription for clonazepam was picked up on 05/14/2025 and was a tapering dose from the PCP to decrease severe medical withdrawal complications. Her last oxycodone was filled on and was an 11-day supply. According to the patient she has not been taking the titrating dose as she should be. She denies chest pain, sob, breathing difficulties, abdominal pain, headache, fevers/chills, blood in stool or urine, any recent illness, or any recent travel. REVIEW OF SYSTEMS: See HPI for pertinent positives and pertinent negatives. ALLERGIES: See below MEDICATIONS: See below PAST MEDICAL HISTORY: See below PHYSICAL EXAM: VITAL SIGNS - Vital signs and nursing notes were reviewed. Patient noted to be hypertensive and tachycardic. GENERAL - No acute distress. Patient is very tearful and upset. Communicates well with provider and answers questions appropriately. HEAD - NC/AT. EYES - PERRL with EOMI bilaterally. Sclera anicteric. Palpebral conjunctiva pink and moist with no injection noted. EARS - No deformities of external structures noted on gross examination bilaterally. No pain elicited with palpation of the tragus bilaterally. External auditory canals without discharge or otorrhea. Tympanic membranes pearly vergara without retraction or bulging. No fluid or purulent material visualized behind the TM. MOUTH/OROPHARYNX - Without perioral cyanosis. Buccal mucosa pink and moist and without leukoplakia. Tongue midline with equal elevation of palate bilaterally. No tonsillar hypertrophy, erythema, or exudates noted. NECK - Neck with FROM. Supple to palpation. No nuchal rigidity. LUNGS - Chest wall symmetric without accessory muscle use, intercostals retractions, or central cyanosis. Normal vesicular breath sounds CTA B/L. No wheezes, rales, or rhonchi appreciated. CARDIAC - RRR with S1/S2. No murmur, rubs, or gallops appreciated. ABDOMEN - Abdominal contour is without pulsations or visible masses. Negative Cullens or Jones Turners Signs. BS normoactive all four quadrants. No tenderness to palpation appreciated all 4 quadrants. No guarding. No rebound Tenderness. Negative Vovsings. Negative [place]. No palpable masses, hepatosplenomegaly, or ascites noted. NEUROLOGIC -no tremors. Sensation intact. Cranial nerves II through XII grossly intact. Sensory intact to light touch throughout. PSYCH - A&Ox3 and cooperates fully with examiner. Pt is very pleasant and interacts well with examiner. DIFFERENTIAL DIAGNOSIS: Alcohol withdrawal, opiate withdrawal, clonazepam withdrawal, chronic versus acute pancreatitis, anxiety, depression, among others. ED COURSE AND MEDICAL DECISION MAKING: HISTORY FROM INDEPENDENT HISTORIAN: History was provided by the patient and her mother who is a secondary historian at the bedside. MONITOR: Continuous teletypesetter monitor: Order was placed for continuous teletypesetter monitor. Patient was placed on the teletypesetter monitor and continuous pulse ox. Patient was noted to be in normal sinus rhythm at an initial rate of 105 bpm per my interpretation. EKG: EKG was interpreted by myself as sinus tachycardia at a rate of 139 bpm. INTERPRETATION OF LABS: I interpreted the labs with full lab results as below in the lab section of this note. Laboratory results pertinent to the emergent complaint are discussed in the MDM section below. The patient was advised to follow up with their PCP and/or specialist(s) for further outpatient monitoring and management of any abnormal results. INTERPRETATION OF IMAGING: Imaging studies were interpreted by myself and read by radiology as per the imaging section of this note. The patient was advised to follow up with their PCP and/or specialist(s) for further outpatient management of any non-emergent abnormal findings. CHRONIC MEDICAL/SOCIAL CONDITIONS AFFECTING CARE: No social concerns were identified as barriers to patients care. EXTERNAL RECORDS REVIEWED: Patient's multiple primary care visits related to controlled substance prescriptions from 03/21/2025, 04/12/2025, 04/22/2025. I also reviewed her admission from [facility] from 04/19/2025. ESCALATION OF CARE CONSIDERED: I considered admission on this patient for alcohol withdrawal and benzodiazepine withdrawal. SUMMARY: I examined the patient for complaints of benzodiazepine and opioid withdrawal. A physical exam and history were performed. Nursing notes, EMR, and medication list were personally reviewed. CBC showed no leukocytosis, anemia. Platelet count was 410 which appears to be relatively consistent with patient's previous lab work. CMP showed no emergent findings but a carbon dioxide of 20, anion gap of 18, glucose of 134, AST of 164, ALT of 77, alkaline phosphatase of 351. Urinalysis showed no signs of infection. UDS tested positive for opiates and marijuana. Alcohol level was 304.3. I did discuss all the above findings with the patient. She does report her last known alcoholic beverage was around 7 AM this morning after she had drank multiple drinks of wine. She was unable to elaborate on the specific amount and when she started drinking. The patient does appear to be in denial of the alcohol use disorder. She is not interested in any rehab after admission to the hospital. CT of the abdomen and pelvis did show multifocal calcifications of the pancreatic head. There is minimal adjacent infiltration which could be chronic versus acute pancreatitis. Lipase level was in normal. There was no changes to the biliary ductal dilation, no hepatic stenosis, no bowel obstruction, normal appendix. There was mildly fluid-filled right colon with minimal wall thickening likely could represent a mild colitis. Patient has been hospitalized for colitis in the past. The patient was given 1 L normal saline, 4 mg of Zofran, 1 mg of Ativan with improvement in anxiety. I did speak with Josefina Hinton who accepts the patient for admission to the hospital. Care was transferred at this time. DIAGNOSIS: Mild colitis, alcohol withdrawal, benzodiazepine withdrawal, opioid withdrawal TREATMENT PLAN/DISCHARGE INSTRUCTIONS: Admit to hospitalist services Past Med/Surg History Problem List (Updated 05/19/25 @ 13:23 by MARYBEL Stanton) Benzodiazepine withdrawal (Acute) Alcohol withdrawal (Acute) Alcohol abuse (Acute) Ileus Abnormal MRI of abdomen Candidiasis of mouth and esophagus Chronic alcoholic pancreatitis Elevated LFTs (Acute) Intractable vomiting with nausea (Acute) Intractable abdominal pain (Acute) Acute pancreatitis (Acute) Acute colitis Acute dehydration (Acute) Hypomagnesemia (Acute) Intractable nausea and vomiting (Acute) Calcific tendinitis of right shoulder Cannabinoid hyperemesis syndrome Hypocalcemia (Acute) Hypomagnesemia (Acute) Hypokalemia (Acute) Pancolitis (Acute) Tobacco abuse Leukocytosis Hematochezia Intractable abdominal pain Nausea & vomiting (Acute) History of gastritis History of alcohol abuse Restless leg syndrome Medical marijuana use Chronic prescription opiate use Chronic prescription benzodiazepine use Chronic abdominal pain (Acute) Chronic pain syndrome Right ankle sprain Tendinitis of both rotator cuffs Intertrigo Gastroparesis Low serum cortisol level Other cervical disc degeneration at C6-C7 level Degeneration of thoracolumbar intervertebral disc T12-L1 Other cervical disc degeneration at C5-C6 level Elevated hemidiaphragm Generalized anxiety disorder with panic attacks Portal vein thrombosis (~2019) Gastritis Dental decay Chronic pancreatitis (Acute) Per records Hiatal hernia (Chronic) Medical History Medical marijuana use Chronic pancreatitis Chronic abdominal pain Portal vein thrombosis (2019) on eliquis Gastroparesis per pt is severe, following with [facility] Pancreatic pseudocyst Pancolitis Adjustment disorder with depressed mood Per records History of seizure due to alcohol withdrawal 2020, "from either alcohol or clonazepam" PTSD (post-traumatic stress disorder) Hx of migraines Iron deficiency anemia Insomnia Hiatal hernia Nocturnal hypoxia Noted during previous hospitalizations per patient, plan for future sleep study (not scheduled until 07/2024 per patient) Degeneration of thoracolumbar intervertebral disc History of colitis Cervical radiculopathy Cervical spondylosis Anxiety and depression Tendinitis of right rotator cuff Ongoing Acne Cream every 4-6 months GERD (gastroesophageal reflux disease) Panic attacks hx Peptic ulcer disease hx Surgical History H/O oral surgery History of breast biopsy History of esophagogastroduodenoscopy (EGD) 2017 History of cholecystectomy History of tooth extraction History of lumpectomy of right breast "benign" Family History Father Family history of diabetes mellitus Myocardial infarction Hypertension Stroke Grandfather (Maternal) Family history of diabetes mellitus Grandmother (Maternal) Family history of diabetes mellitus Cancer Hypertension Mother Hypothyroidism Grandfather (Paternal) Heart problem Cancer Grandmother (Paternal) Hypertension Other No family history of adverse response to anesthesia Denies family history of Ovarian cancer Prostate cancer Breast cancer Colorectal cancer Social History Smoking Status: Current every day smoker Tobacco Type: Cigarettes Age Started Using Tobacco: 15; packs per day: 0.5; Cigarettes Per Day: 10-15; Second Hand Exposure: No; Do You Dip or Chew Tobacco: No; Hx Alcohol Use: Yes Alcohol type: wine Hx Substance Use: Yes Last Used Substance: Hours (ago) Last Used Substance Other:: last used yesterday Substance Use Type Other:: medical card for sleep/anx Preferred Language: Mauritian Communication Ability: Effective Visual Impairment: No Limitations Hearing Ability: Normal Sales Marketing Manager Required: No Beliefs That Will Affect Care: None marital status: Single Current Living Situation: Parent Current Living Situation Comment: home with mother and dog current occupational status: employed current occupation: at [employer] How many Children do You have: 0 Other Information That Helps Us Care for You: No Feels Safe at Home: Yes Safety Concerns: Feels Safe At This Time Childhood Exposure to Second-Hand Smoke: No Diet: regular Diet Comment: regular Dental Care, Regularly: Yes Physical Activity Frequency: Does not Exercise Seatbelt Use: always Sunscreen Use: Yes Do you think of yourself as: straight/heterosexual Assistive Devices: None Allergies Allergies Allergy/AdvReac Type Severity Reaction Status Date / Time buspirone [From BuSpar] Allergy Severe Unconscious, Verified 05/19/25 11:34 seizures quetiapine [From Seroquel] Allergy Severe Unconscious, Verified 05/19/25 11:34 seizures capsaicin AdvReac Intermediate Redness of Verified 05/19/25 11:34 Skin citalopram [From Celexa] AdvReac Intermediate Vomiting Verified 05/19/25 11:34 morphine AdvReac Intermediate Vomiting Verified 05/19/25 11:34 vilazodone [From Viibryd] AdvReac Intermediate Vomiting Verified 05/19/25 11:34 metoclopramide AdvReac Unknown "Twitchy" Verified 05/19/25 11:34 Home Meds Home Medications Medication Instructions Recorded Confirmed cholecalciferol (vitamin D3) 250 250 mcg PO QAM 08/18/23 05/19/25 mcg (10,000 unit) capsule levonorgestrel 21 mcg/24 hr (up to 1 device intrauterine DIRECTED 08/16/24 05/19/25 8 years) 52 mg intrauterine device (Mirena) folic acid 1 mg tablet 1 mg PO QAM 02/17/25 05/19/25 clonazepam 0.5 mg tablet 0.5 mg PO DAILY PRN anxiety 05/19/25 05/19/25 Previous Rx's Medication Instructions Recorded mecobalamin (vitamin B12) 1,000 1,000 mcg PO QAM #100 tabs 01/20/24 mcg chewable tablet (B12 Active) pantoprazole 40 mg tablet,delayed 40 mg PO BID #180 tabs 10/11/24 release baclofen 20 mg tablet 20 mg PO TID PRN neck pain/muscle 10/20/24 spasm #270 tabs apixaban 5 mg tablet (Eliquis) 5 mg PO BID #90 tabs 01/12/25 sumatriptan succinate 100 mg tablet 100 mg PO DAILY PRN 02/03/25 migraine/headache #20 tabs methocarbamol 750 mg tablet 750 mg PO TID PRN pain #90 tabs 03/30/25 bqkhsa-[id number]-jmwxxjo 3 cap PO AC #180 caps 04/08/25 36,000-114,000-180,000 unit capsule,delay rel (Creon) ondansetron 4 mg disintegrating 4 mg PO Q6H PRN nausea and 04/08/25 tablet vomiting #30 tabs potassium chloride 20 mEq 20 meq PO DAILY #30 tabs 04/08/25 tablet,extended release(part/cryst) (Klor-Con M) gabapentin 600 mg tablet 600 mg PO TID PRN Pain #90 tabs 04/11/25 promethazine 25 mg tablet 25 mg PO Q6H PRN nausea and 04/26/25 vomiting #12 tabs Results & Data (ED) Vital Signs Vital Signs - 24 hr 05/19/25 09:14 05/19/25 09:40 05/19/25 09:40 Temperature 36 C L Temperature Source Temporal Artery Scan Pulse Rate 148 H Pulse Rate [Apical] Pulse Rate from SpO2 Sensor Pulse Rhythm Regular Pulse Strength Normal Respiratory Rate 20 Respiratory Effort / Characteristics Non-Labored Spontaneous Respiratory Depth Normal Respiratory Pattern Regular Blood Pressure 131/90 138/106 H 138/106 H Blood Pressure [Left Arm] Blood Pressure Mean 103 123 123 Blood Pressure Mean [Left Arm] Blood Pressure Position Sitting Pulse Oximetry 97 Oxygen Delivery Method Room Air Sepsis Recent Fever Within 48 Hours No Sepsis New/Unexplained Change in Mental Status N/A Sepsis Action Taken by Nursing No Action Required 05/19/25 09:42 05/19/25 09:44 05/19/25 09:45 Temperature Temperature Source Pulse Rate 220 H 129 H 150 H Pulse Rate [Apical] Pulse Rate from SpO2 Sensor Pulse Rhythm Pulse Strength Respiratory Rate Respiratory Effort / Characteristics Respiratory Depth Respiratory Pattern Blood Pressure Blood Pressure [Left Arm] Blood Pressure Mean Blood Pressure Mean [Left Arm] Blood Pressure Position Pulse Oximetry Oxygen Delivery Method Sepsis Recent Fever Within 48 Hours Sepsis New/Unexplained Change in Mental Status Sepsis Action Taken by Nursing 05/19/25 09:55 05/19/25 09:57 05/19/25 09:57 Temperature Temperature Source Pulse Rate Pulse Rate [Apical] 126 H Pulse Rate from SpO2 Sensor Pulse Rhythm Pulse Strength Respiratory Rate 16 Respiratory Effort / Characteristics Respiratory Depth Respiratory Pattern Blood Pressure 136/103 H Blood Pressure [Left Arm] 136/103 H Blood Pressure Mean 109 Blood Pressure Mean [Left Arm] 114 Blood Pressure Position Pulse Oximetry 97 Oxygen Delivery Method Room Air Room Air Sepsis Recent Fever Within 48 Hours Sepsis New/Unexplained Change in Mental Status Sepsis Action Taken by Nursing 05/19/25 09:59 05/19/25 10:00 05/19/25 10:01 Temperature Temperature Source Pulse Rate 127 H Pulse Rate [Apical] Pulse Rate from SpO2 Sensor 127 H Pulse Rhythm Pulse Strength Respiratory Rate 27 H Respiratory Effort / Characteristics Respiratory Depth Respiratory Pattern Blood Pressure 135/90 Blood Pressure [Left Arm] Blood Pressure Mean 111 Blood Pressure Mean [Left Arm] Blood Pressure Position Pulse Oximetry 97 97 Oxygen Delivery Method Room Air Sepsis Recent Fever Within 48 Hours Sepsis New/Unexplained Change in Mental Status Sepsis Action Taken by Nursing 05/19/25 10:12 05/19/25 10:27 05/19/25 10:33 Temperature Temperature Source Pulse Rate 110 H 108 H 104 H Pulse Rate [Apical] Pulse Rate from SpO2 Sensor 111 H 109 H 105 H Pulse Rhythm Pulse Strength Respiratory Rate 12 15 18 Respiratory Effort / Characteristics Respiratory Depth Respiratory Pattern Blood Pressure Blood Pressure [Left Arm] Blood Pressure Mean Blood Pressure Mean [Left Arm] Blood Pressure Position Pulse Oximetry 99 98 97 Oxygen Delivery Method Sepsis Recent Fever Within 48 Hours Sepsis New/Unexplained Change in Mental Status Sepsis Action Taken by Nursing 05/19/25 11:00 05/19/25 11:00 05/19/25 11:19 Temperature Temperature Source Pulse Rate 105 H Pulse Rate [Apical] Pulse Rate from SpO2 Sensor 105 H Pulse Rhythm Pulse Strength Respiratory Rate 12 16 Respiratory Effort / Characteristics Respiratory Depth Respiratory Pattern Blood Pressure 121/90 Blood Pressure [Left Arm] Blood Pressure Mean 102 Blood Pressure Mean [Left Arm] Blood Pressure Position Pulse Oximetry 98 Oxygen Delivery Method Sepsis Recent Fever Within 48 Hours Sepsis New/Unexplained Change in Mental Status Sepsis Action Taken by Nursing Laboratory Data 05/19/25 09:27 05/19/25 09:27 Lab Results 05/19/25 05/19/25 05/19/25 Range/Units 09: 10:26 11:00 WBC 8.63 (4.8-10.8) K/ul RBC 4.95 (4.20-5.40) M/uL Hgb 14.8 (12.0-16.0) g/dl Hct 44.2 (37.0-47.0) % MCV 89.3 (80.0-100.0) fL MCH 29.9 (25.0-34.0) pg MCHC 33.5 (32.0-36.0) g/dL RDW Std Deviation 49.8 H (36.4-46.3) fL RDW Coeff of Jessica 15.2 H (11.5-14.5) % Plt Count 410 H (130-400) K/uL MPV 9.5 (9.4-12.4) fL Immature Gran % (Auto) 0.1 % Neut % (Auto) 51.9 % Lymph % (Auto) 36.6 % Gove % (Auto) 9.4 % Eos % (Auto) 0.8 % Baso % (Auto) 1.2 % Neut # (Auto) 4.48 (1.40-6.50) K/uL Lymph # (Auto) 3.16 (1.20-3.40) K/uL Gove # (Auto) 0.81 H (0.11-0.59) K/uL Eos # (Auto) 0.07 (0.00-0.50) K/uL Baso # (Auto) 0.10 (0.00-0.20) K/uL Immature Gran # (Auto) 0.01 (0.01-0.20) K/uL Sodium 137 (136-145) mmol/L Potassium 4.3 (3.5-5.1) mmol/L Chloride 99 (98-107) mmol/L Carbon Dioxide 20 L (21-32) mmol/L Anion Gap 18 H (3-11) BUN 8 (6-23) mg/dl Creatinine 0.70 (0.6-1.2) mg/dl Est Cr Clr Drug Dosing 80.4 ml/min eGFR 108.62 BUN/Creatinine Ratio 11.4 (10-20) Glucose 134 H (70-99(Fasting)) mg/dl Osmolality 391 H* (280-300) mOsm/kg Calcium 9.3 (8.6-10.3) mg/dl Magnesium 2.2 (1.7-2.4) mg/dl Total Bilirubin 0.6 (0.2-1.0) mg/dl AST 164 H (13-39) U/L ALT 77 H (7-52) U/L Alkaline Phosphatase 351 H (34-104) U/L Troponin I High Sens 3.1 (0-14) pg/ml Total Protein 8.0 (6.0-8.3) gm/dl Albumin 4.5 (3.4-5.0) gm/dl Globulin 3.5 (2.5-4.0) gm/dl Albumin/Globulin Ratio 1.3 (0.9-2) Lipase 31 (11-82) U/L Urine Color Yellow Urine Appearance Clear (Clear) Urine pH 5.0 (4.5-7.5) Ur Specific Dozier 1.007 (1.000-1.030) Urine Protein Negative (Negative) Urine Glucose (UA) Negative (Negative) Urine Ketones Negative (Negative) Urine Blood Trace H (Negative) Urine Nitrite Negative (Negative) Urine Bilirubin Negative (Negative) Urine Urobilinogen Negative (Negative) Ur Leukocyte Esterase Negative (Negative) Urine WBC (Auto) 0-5 (0-5) /hpf Urine RBC (Auto) 0-2 (0-2) /hpf U Hyaline Cast (Auto) 0-2 (0-2) /lpf U Epithel Cells (Auto) 0-2 (0-2) /hpf Urine Bacteria (Auto) None Seen (None Seen) Urine Comment Urine Opiates Screen Pos H (Neg) Ur Methadone, Qual Neg (Neg) Urine Fentanyl Screen Neg (Neg) Urine Barbiturates Neg (Neg) Ur Phencyclidine (PCP) Neg (Neg) U Amphetamin/Meth Scrn Neg (Neg) MDMA (Ecstasy) Screen Neg (Neg) U Benzodiazepines Scrn Neg (Neg) Ur Cocaine Metabolite Neg (Neg) U Marijuana (THC) Screen Pos H (Neg) Ethyl Alcohol mg/dL 304.3 H (<10.0) mg/dl Administered Medications Chlordiazepoxide HCl (Chlordiazepoxide Hcl 25 Mg Cap) 50 mg PO Q6H CIRO Stop: 05/20/25 08:01 Last Admin: 05/19/25 14:18 Dose: 50 mg Documented By: DIONE Discontinued Medications Sodium Chloride (Nss) 1,000 mls @ 999 mls/hr IV .Q1H1M STA Stop: 05/19/25 10:33 Last Infusion: 05/19/25 11:10 Dose: Infused Documented By: Admin: 05/19/25 09:55 Dose: 999 mls/hr Documented By: EDVIN Thiamine HCl 200 mg/ Sodium (Chloride) 52 mls @ 210 mls/hr IV ONE ONE Stop: 05/19/25 12:59 Last Admin: 05/19/25 14:19 Dose: 210 mls/hr Documented By: DIONE Ioversol (Optiray 320 100ml) 94 ml IV ONCE ONE Stop: 05/19/25 11:09 Last Admin: 05/19/25 11:08 Dose: 94 ml Documented By: AURELIO Lorazepam (Lorazepam 1 Mg/1 Ml Syr Ed Inj Use) 1 mg IV ONE STA Stop: 05/19/25 10:38 Last Admin: 05/19/25 10:42 Dose: 1 mg Documented By: EDVIN Ondansetron HCl (Ondansetron Inj 2 Mg/Ml 2 Ml Vial) 4 mg IV NOW STA Stop: 05/19/25 09:34 Last Admin: 05/19/25 09:55 Dose: 4 mg Documented By: EDVIN Imaging Data Radiologist's Impression: Chest X-Ray 05/19/25 09:34 XR chest 1V portable CLINICAL HISTORY: Chest pain, nonspecific COMPARISON STUDY: 04/01/2025 FINDINGS: Heart size and pulmonary vasculature are normal. Stable mildly hyperexpanded lungs. No consolidation or pleural effusion. No pneumothorax. IMPRESSION: No acute findings. ACT 112: Negative or not required by law. Electronically signed by: Kevin Knox M.D. 05/19/2025 9:49 AM Abdomen/Pelvis CT 05/19/25 10:50 CT SCAN OF THE ABDOMEN AND PELVIS WITH IV CONTRAST CLINICAL HISTORY: Abdominal pain. COMPARISON STUDY: CT of the abdomen and pelvis March 18, 2025, MRCP April 01, 2025 and KUB April 04, 2025 TECHNIQUE: Following the IV administration of 94 cc of Optiray 320, CT scan of the abdomen and pelvis is performed from the lung bases to the proximal femora. Images are reviewed in the axial, sagittal, and coronal planes. IV contrast was administered without complication. A dose lowering technique was utilized adhering to the principles of ALARA. CT DOSE: 367.45 mGy.cm FINDINGS: Visualized portions of the lung bases are unremarkable. There is no pneumatosis, free air or portal venous gas. There are no hepatic lesions. There is hepatic steatosis. Mild biliary ductal dilatation is unchanged. The common bile duct measures 1 cm in caliber. This is likely related to previous cholecystectomy. There is no pancreatic ductal dilatation. Hypodensity within the pancreatic head and uncinate process with associated multifocal calcifications is similar to prior exam. There is minimal adjacent stranding. This was also shown on prior exam. No well-defined lesion is identified by CT. Spleen, adrenal glands and kidneys are unremarkable with exception of small bilateral renal calculi. There are no ureteral calculi. There is no hydronephrosis. Bladder is mildly distended. The appendix is normal. There is no evidence for a bowel obstruction. The right colon is fluid-filled with mild wall thickening, decreased compared to prior CT. Major vasculature is patent. IMPRESSION: 1. Hypodensity with associated multifocal calcifications within the pancreatic head and uncinate process suggestive of the sequela of chronic pancreatitis. No lesion identified however imaging follow-up to ensure stability is recommended to exclude the less likely possibility of an underlying mass. No change in minimal adjacent infiltration which may be chronic however acute on chronic pancreatitis could appear similar. Findings could be correlated as lipase level. 2. No change in biliary ductal dilatation. This is likely related to cholecystectomy although correlation with obstructive liver function tests is recommended. 3. Hepatic steatosis. 4. No bowel obstruction. Normal appendix. 5. Mildly fluid-filled right colon with minimal wall thickening, decreased since prior exam. This may represent a mild colitis. ACT 112: Negative or not required by law. Electronically signed by: José Miguel Bruno M.D. 05/19/2025 11:36 AM Discharge Plan Visit Data Chief Complaint: Chest Pain Stated Complaint: FEEL LIKE DYING, CHEST PAIN, WITHDRAWL FORM MEDICI ED Provider: Jp Middleton ED Midlevel Provider: Pili Harrington Discharge Problem: Alcohol abuse, Alcohol withdrawal, Benzodiazepine withdrawal Patient Disposition: Admitted As Inpatient Condition: Good Discharge Instructions Interventions: ED Discharge Assessment Last Done: 05/19/25 13:29 Discharge Problem: Alcohol withdrawal Qualifiers: Complication of substance-induced condition: with unspecified complication Q ualified Code(s): F10.939 - Alcohol use, unspecified with withdrawal, unspecified Benzodiazepine withdrawal Qualifiers: Complication of substance-induced condition: with unspecified complication Q ualified Code(s): F13.939 - Sedative, hypnotic or anxiolytic use, unspecified with withdrawal, unspecified
--- NOTE | 2025-05-19 12:32 | History & Physical Report ---
Date of Service May 19, 2025 Assessment & Plan (1) Alcohol withdrawal: (2) Benzodiazepine withdrawal: (3) Intractable abdominal pain: (4) Elevated LFTs: (5) Portal vein thrombosis: Plan This is a 44 year old female with past medical history of chronic pancreatitis, back/neck pain, alcohol abuse who presented to the ED on 05/19/2025 secondary to withdrawal symptoms. While in the ED CBC & BMP were stable. Her LFTs were mildly elevated w/ a AST of 164 and ALT of 77. Alk phos elevated at 351. TB WNL. Lipase WNL. Troponin WNL. Urinalysis negative for infection. Drug screen positive for opiates and marijuana. Alcohol level significantly elevated at 304.3. CTAP shows findings consistent with chronic pancreatitis, hepatic steatosis. CXR was negative. #Alcohol abuse/benzodiazepine withdrawal/anxiety/depression was previously 17 months sober but drank in March, was admitted at [facility] for this. Unfortunately due to testing + for alcohol, she violated her contract w/ PCP for her chronic oxycodone + clonazepam use. Clonazepam last filled 05/14 @ tapering dose but was taking @ usual dose (28 day supply); Oxycodone last filled 04/12 w/ 11 days worth. CBC stable, BMP stable. Alc level 304.3; tox screen + for marijuana & opiates - per patient she does have marijuana medical card Serum osmol high @ 391 --> additional alcohol studies ordered including ethylene glycol, methyl alcohol Start on Librium taper + Prn Ativan for breakthrough withdrawal symptoms (AWSS >6) Thiamine/folic acid supplement Monitor on telemetry Psych consulted for management of anxiety/depression now being off clonazepam --> denies SI on admission #Transaminitis Secondary to alcohol use CTAP: changes consistent w/ chronic pancreatitis, hepatic steatosis TB WNL, AST/ALT 164/77, AP 351 Lipase WNL, troponin negative. #Abdominal pain abd pain, n/v - secondary to withdrawal symptoms + component of gastritis + hx of cannabinoid hyperemesis syndrome Continue PPI BID Pepcid BID added in event it is alcohol related gastritis Avoid narcotics given she is unable to have them filled by PCP on outpatient basis #hypokalemia stable on admission continue 20meq daily #hx portal vein thrombosis - continue Eliquis DVT prophylaxis: Eliquis Code: full Case discussed w/ Dr. Chavez at time of admission. History of Present Illness Primary Care Provider: Radha Alicea MD This is a 44 year old female with past medical history of chronic pancreatitis, back/neck pain, alcohol abuse who presented to the ED on 05/19/2025 secondary to withdrawal symptoms. Nadja was seen & examined this morning w/ her mother present. She reports that her PCP is refusing to fill both her clonazepam & oxycodone prescriptions. States that previously she has been on clonazepam for 12 years and oxycodone for 1-1.5 years. Oxycodone is used for chronic neck/back pain & chronic abdominal pain. She also has a medical marijuana card. Back in March, patient was admitted to [facility] & she tested positive for alcohol which is a breech of her contract for controlled substances. PCP did try to contact patient but she was a no show x 2. Her last prescription of Clonazepam was picked up on 05/14 which was supposed to be a tapering dose & oxycodone has not been filled since 04/12 which was an 11 day supply. The patient was tearful & anxious at time of my encounter. She states that she "feels like she is dying". She complained of chest/abdominal pain, tachycardia, nausea/vomiting, diarrhea. She denied any muscle aches. She states that she has been feeling like her heart is racing at home & she was having to use alcohol to help reduce the HR. She states that previous to drinking again she had been sober for about 17 months. She states that she did have 2 small glasses of wine prior to coming to the hospital today. She states that she has been struggling with anxiety/depression lately secondary to her friend passing away. States that she has been trying to get established with a psychiatrist outpatient & a therapist but it has not happened yet. She also states she has tried various antidepressants in the past, with one being Prozac that was not effective for her & made her feel worse. She is open to seeing our psychiatrist while here to help get her on a medication regimen. She denied any suicidal thoughts & states that she does want to live as she has a dog to take care of at home. She was agreeable to admission for withdrawal symptoms. While in the ED CBC & BMP were stable. Her LFTs were mildly elevated w/ a AST of 164 and ALT of 77. Alk phos elevated at 351. TB WNL. Lipase WNL. Troponin WNL. Urinalysis negative for infection. Drug screen positive for opiates and marijuana. Alcohol level significantly elevated at 304.3. CTAP shows findings consistent with chronic pancreatitis, hepatic steatosis. CXR was negative. Allergies Allergy/AdvReac Type Severity Reaction Status Date / Time buspirone [From BuSpar] Allergy Severe Unconscious, Verified 05/19/25 11:34 seizures quetiapine [From Seroquel] Allergy Severe Unconscious, Verified 05/19/25 11:34 seizures capsaicin AdvReac Intermediate Redness of Verified 05/19/25 11:34 Skin citalopram [From Celexa] AdvReac Intermediate Vomiting Verified 05/19/25 11:34 morphine AdvReac Intermediate Vomiting Verified 05/19/25 11:34 vilazodone [From Viibryd] AdvReac Intermediate Vomiting Verified 05/19/25 11:34 metoclopramide AdvReac Unknown "Twitchy" Verified 05/19/25 11:34 Home Medications Medication Instructions Recorded Confirmed Type cholecalciferol (vitamin D3) 250 250 mcg PO QAM 08/18/23 05/19/25 History mcg (10,000 unit) capsule mecobalamin (vitamin B12) 1,000 1,000 mcg PO QAM #100 tabs 01/20/24 05/19/25 Rx mcg chewable tablet (B12 Active) levonorgestrel 21 mcg/24 hr (up to 1 device intrauterine DIRECTED 08/16/24 05/19/25 History 8 years) 52 mg intrauterine device (Mirena) pantoprazole 40 mg tablet,delayed 40 mg PO BID #180 tabs 10/11/24 05/19/25 Rx release baclofen 20 mg tablet 20 mg PO TID PRN neck pain/muscle 10/20/24 05/19/25 Rx spasm #270 tabs apixaban 5 mg tablet (Eliquis) 5 mg PO BID #90 tabs 01/12/25 05/19/25 Rx sumatriptan succinate 100 mg tablet 100 mg PO DAILY PRN 02/03/25 05/19/25 Rx migraine/headache #20 tabs folic acid 1 mg tablet 1 mg PO QAM 02/17/25 05/19/25 History methocarbamol 750 mg tablet 750 mg PO TID PRN pain #90 tabs 03/30/25 05/19/25 Rx lpcmkm-ltnlnuqa-sdttypt 3 cap PO AC #180 caps 04/08/25 05/19/25 Rx 36,000-114,000-180,000 unit capsule,delay rel (Creon) ondansetron 4 mg disintegrating 4 mg PO Q6H PRN nausea and 04/08/25 05/19/25 Rx tablet vomiting #30 tabs potassium chloride 20 mEq 20 meq PO DAILY #30 tabs 04/08/25 05/19/25 Rx tablet,extended release(part/cryst) (Klor-Con M) gabapentin 600 mg tablet 600 mg PO TID PRN Pain #90 tabs 04/11/25 05/19/25 Rx promethazine 25 mg tablet 25 mg PO Q6H PRN nausea and 04/26/25 05/19/25 Rx vomiting #12 tabs clonazepam 0.5 mg tablet 0.5 mg PO DAILY PRN anxiety 05/19/25 05/19/25 History Past Med/Surg History Problem List (Updated 05/20/25 @ 11:42 by Pam Pike MD) Depression Insomnia Alcohol use disorder Benzodiazepine withdrawal (Acute) Alcohol withdrawal (Acute) Alcohol abuse (Acute) Ileus Abnormal MRI of abdomen Candidiasis of mouth and esophagus Chronic alcoholic pancreatitis Elevated LFTs (Acute) Intractable vomiting with nausea (Acute) Intractable abdominal pain (Acute) Acute pancreatitis (Acute) Acute colitis Acute dehydration (Acute) Hypomagnesemia (Acute) Intractable nausea and vomiting (Acute) Calcific tendinitis of right shoulder Cannabinoid hyperemesis syndrome Hypocalcemia (Acute) Hypomagnesemia (Acute) Hypokalemia (Acute) Pancolitis (Acute) Tobacco abuse Leukocytosis Hematochezia Intractable abdominal pain Nausea & vomiting (Acute) History of gastritis History of alcohol abuse Restless leg syndrome Medical marijuana use Chronic prescription opiate use Chronic prescription benzodiazepine use Chronic abdominal pain (Acute) Chronic pain syndrome Right ankle sprain Tendinitis of both rotator cuffs Intertrigo Gastroparesis Low serum cortisol level Other cervical disc degeneration at C6-C7 level Degeneration of thoracolumbar intervertebral disc T12-L1 Other cervical disc degeneration at C5-C6 level Elevated hemidiaphragm Generalized anxiety disorder with panic attacks Portal vein thrombosis (~2018) Gastritis Dental decay Chronic pancreatitis (Acute) Per records Hiatal hernia (Chronic) Medical History Medical marijuana use Chronic pancreatitis Chronic abdominal pain Portal vein thrombosis (2019) on eliquis Gastroparesis per pt is severe, following with [facility] Pancreatic pseudocyst Pancolitis Adjustment disorder with depressed mood Per records History of seizure due to alcohol withdrawal 2020, "from either alcohol or clonazepam" PTSD (post-traumatic stress disorder) Hx of migraines Iron deficiency anemia Insomnia Hiatal hernia Nocturnal hypoxia Noted during previous hospitalizations per patient, plan for future sleep study (not scheduled until 07/2024 per patient) Degeneration of thoracolumbar intervertebral disc History of colitis Cervical radiculopathy Cervical spondylosis Anxiety and depression Tendinitis of right rotator cuff Ongoing Acne Cream every 4-6 months GERD (gastroesophageal reflux disease) Panic attacks hx Peptic ulcer disease hx Surgical History H/O oral surgery History of breast biopsy History of esophagogastroduodenoscopy (EGD) 2017 History of cholecystectomy History of tooth extraction History of lumpectomy of right breast "benign" Family History Father Family history of diabetes mellitus Myocardial infarction Hypertension Stroke Grandfather (Maternal) Family history of diabetes mellitus Grandmother (Maternal) Family history of diabetes mellitus Cancer Hypertension Mother Hypothyroidism Grandfather (Paternal) Heart problem Cancer Grandmother (Paternal) Hypertension Other No family history of adverse response to anesthesia Denies family history of Ovarian cancer Prostate cancer Breast cancer Colorectal cancer Social History Smoking Status: Current every day smoker Tobacco Type: Cigarettes Age Started Using Tobacco: 15; packs per day: 0.5; Cigarettes Per Day: 10-15; Second Hand Exposure: No; Do You Dip or Chew Tobacco: No; Hx Alcohol Use: Yes Alcohol type: wine Hx Substance Use: Yes Last Used Substance: Hours (ago) Last Used Substance Other:: last used yesterday Substance Use Type Other:: medical card for sleep/anx Preferred Language: Guyanese Communication Ability: Effective Visual Impairment: No Limitations Hearing Ability: Normal Case Planner Required: No Beliefs That Will Affect Care: None marital status: Single Current Living Situation: Parent Current Living Situation Comment: home with mother and dog current occupational status: employed current occupation: at [employer] How many Children do You have: 0 Other Information That Helps Us Care for You: No Feels Safe at Home: Yes Safety Concerns: Feels Safe At This Time Childhood Exposure to Second-Hand Smoke: No Diet: regular Diet Comment: regular Dental Care, Regularly: Yes Physical Activity Frequency: Does not Exercise Seatbelt Use: always Sunscreen Use: Yes Do you think of yourself as: straight/heterosexual Assistive Devices: None Physical Exam Constitutional: in mild distress, tearful Eyes: PERRL, conjunctivae normal, anicteric sclerae Respiratory: normal respiratory effort, lungs clear to auscultation Cardiovascular: tachy, regular rhythm, no le edema Gastrointestinal (Abdomen): +BS, generalized tenderness to palpation Neurologic: PERRL, EOMI, accommodation nl, no face palsy, no dysarthria Psychiatric: Orientation: alert and oriented x 3 Affect: + tearful affect Mood: + depressed mood and + anxious mood Suicidal Thoughts: denies suicidal thoughts Results & Data Results & Data Vital Signs (Past 12 Hours) Vital Signs Temp Pulse Pulse Resp BP BP Pulse Ox 05/19/25 11:19 16 05/19/25 11:00 121/90 05/19/25 11:00 105 H 12 98 05/19/25 10:33 104 H 18 97 05/19/25 10:27 108 H 15 98 05/19/25 10:12 110 H 12 99 05/19/25 10:01 135/90 05/19/25 10:00 127 H 27 H 97 05/19/25 09:59 97 05/19/25 09:57 126 H 16 136/103 H 97 05/19/25 09:57 05/19/25 09:55 136/103 H 05/19/25 09:45 150 H 05/19/25 09:44 129 H 05/19/25 09:42 220 H 05/19/25 09:40 138/106 H 05/19/25 09:40 138/106 H 05/19/25 09:14 36 C L 148 H 20 131/90 97 O2 Del Method 05/19/25 11:19 05/19/25 11:00 05/19/25 11:00 05/19/25 10:33 05/19/25 10:27 05/19/25 10:12 05/19/25 10:01 05/19/25 10:00 05/19/25 09:59 Room Air 05/19/25 09:57 Room Air 05/19/25 09:57 Room Air 05/19/25 09:55 05/19/25 09:45 05/19/25 09:44 05/19/25 09:42 05/19/25 09:40 05/19/25 09:40 05/19/25 09:14 Room Air Supervising Physician Co-Signing Physician Notes During face to face encounter, I obtained a history and physical examination, discussed plan of care with patient and answered any questions. I discussed plan of care with MARLON Pozo. I reviewed above note and agree with it except for the following: Patient will be admitted for alcohol withdrawal. Concern given her anion gap was 18 and osmolar gap which was 24. Will check for methanol and ethylene glycol. will continue IVF. Monitor BMP PG Care Time/CCT Total # of Minutes Spent Total Time Spent with Patient: Total time spent is greater than 50% in coordination of care (as documented) at patient's floor/unit and/or counseling patient: Coding Level of Care Code 50826 INT INP/OBS CARE 375MIN Diagnoses Alcohol withdrawal F10.939 Complication of substance-induced condition: with unspecified complication Benzodiazepine withdrawal F13.939 Complication of substance-induced condition: with unspecified complication Intractable abdominal pain R10.9 Elevated LFTs R79.89 Portal vein thrombosis I81 (1) Alcohol withdrawal Complication of substance-induced condition: with unspecified complication Qualified Code(s): F10.939 - Alcohol use, unspecified with withdrawal, unspecified (2) Benzodiazepine withdrawal Complication of substance-induced condition: with unspecified complication Qualified Code(s): F13.939 - Sedative, hypnotic or anxiolytic use, unspecified with withdrawal, unspecified
[2025-05-19 12:38] LABS: Base Excess VBG -0.2 mEq/L; HCO3 VBG 24 mmol/L; Oxygen Saturation VBG < 60.0 %; PCO2 VBG 37 mmHg (38-50); PO2 VBG 28 mmHg; pH VBG 7.42 (7.36-7.41)
[2025-05-19] MEDS ORDERED: POLYETHYLENE (MIRALAX) 17 GM PACK PO PRN (13:48)
[2025-05-19] MEDS: THIAMINE HCL 200 MG in SODIUM CHLORIDE 0.9% 50 ML IV ONE (14:19)
[2025-05-19] MEDS: FAMOTIDINE 20MG IV PUSH 20 MG/5 ML SYR IV SCH (15:00)
[2025-05-19] MEDS: chlordiazePOXIDE ALCOHOL WITHDRAWL 50MG PO STA (15:30)
[2025-05-19] MEDS: ONDANSETRON 4 MG OD TAB PO PRN (16:30)
[2025-05-19] MEDS: ACETAMINOPHEN 325 MG TAB PO PRN (17:00)
[2025-05-19] MEDS: PROMETHAZINE HCL 25 MG TAB PO PRN (18:16)
[2025-05-19] MEDS: GABAPENTIN 600 MG TAB PO PRN (19:36)
[2025-05-19] MEDS ORDERED: Ativan PO Alcohol Withdrawal--Active Protocol PO PRN (20:35)
[2025-05-19] MEDS ORDERED: LORazepam 1 MG TAB PO PRN ×2 (20:35)
[2025-05-19] MEDS: APIXABAN 5 MG TABLET PO SCH (20:40)
[2025-05-19] MEDS: LORazepam 1 MG TAB PO PRN (20:52)
[2025-05-20] MEDS: METHOCARBAMOL 750 MG TABLET PO PRN (06:23)
[2025-05-20 06:29] LABS: Hematocrit (blood only) 37.1 % (37.0-47.0); Hemoglobin 12.8 g/dl (12.0-16.0); Mean Corpuscular Hemoglobin 31.1 pg (25.0-34.0); Mean Corpuscular Volume 90.3 fL (80.0-100.0); Platelet Count 310 K/uL (130-400); RDW Standard Deviation 49.4 fL (36.4-46.3); Red Blood Count 4.11 M/uL (4.20-5.40); White Blood Count 5.90 K/ul (4.8-10.8)
[2025-05-20 07:00] LABS: Alanine Aminotransferase 56.0 U/L (7-52); Albumin Globulin Ratio 1.5 (0.9-2); Alkaline Phosphatase 317.0 U/L (34-104); Anion Gap 6.0 (3-11); Bilirubin,Total 1.2 mg/dl (0.2-1.0); Blood Urea Nitrogen 8.0 mg/dl (6-23); Calcium 9.2 mg/dl (8.6-10.3); Carbon Dioxide 31.0 mmol/L (21-32); Chloride 101.0 mmol/L (98-107); Creatinine Clr Calc Pharmacy 75.1 ml/min; Globulin 2.6 gm/dl (2.5-4.0); Glucose 86.0 mg/dl (70-99(Fasting)); Magnesium 2.0 mg/dl (1.7-2.4); Potassium 4.3 mmol/L (3.5-5.1); Sodium 138.0 mmol/L (136-145); Total Protein 6.4 gm/dl (6.0-8.3)
[2025-05-20] MEDS ORDERED: PANCREAZE (LIPASE 10,500U) CAP PO PRN (08:25)
[2025-05-20] MEDS: POTASSIUM CHLORIDE CRTAB 20 MEQ TABCR PO SCH (08:56)
[2025-05-20] MEDS: THIAMINE HCL 100 MG TAB PO SCH (08:58)
[2025-05-20] MEDS ORDERED: THIAMINE HCL 200 MG in SODIUM CHLORIDE 0.9% 50 ML IV SCH (09:00)
[2025-05-20] MEDS: CYANOCOBALAMIN (B-12) 500 MCG TABLET PO SCH (10:17)
[2025-05-20] MEDS: CHOLECALCIFEROL 125 MCG (5,000 UNITS) TAB PO SCH (10:18)
[2025-05-20] MEDS: FOLIC ACID 1 MG TAB PO SCH (10:18)
[2025-05-20] MEDS: PANCREAZE (LIPASE 10,500U) CAP PO SCH (11:25)
--- NOTE | 2025-05-20 11:30 | Psychiatric Consultation ---
Date of Consultation May 20, 2025 Impression / Recommendations Impression Diagnostically consistent with alcohol use disorder with recent relapse, likely a combination of substance-induced anxiety and depression as well as anxiety disorder and chronic pain in the setting of multiple recent stressors including friend's . Acute risk of self-harm is low given denial of SI, no longer with intoxication, future-oriented, multiple protective factors and strengths and willingness to engage in treatment with outpatient referrals. Chronic risk of self harm is moderate due to history of previous suicide attempt 20 years ago, recent alcohol relapse after period of sobriety and elevated FLROENCE on admission however also with protective factors and willing to allow for outpatient referrals. She is willing to engage with treatment recommendations including new medications and referrals. Continue withdrawal protocol with Ativan per scores, start duloxetine for anxiety and pain management and depression and start mirtazapine at bedtime for anxiety, sleep and gastrointestinal symptoms. Can use Vistaril prn for anxiety. Refer to [facility] for buprenorphine/naloxone evaluation and to [facility] for outpatient dual diagnosis therapy. Reviewed risks of untreated alcohol use disorder and provided comprehensive psychoeducation regarding combining alcohol with benzodiazepines and opioids. Possible she is minimizing extent of recent alcohol use attributing recent use to situational factors however she is willing to consider treatment options and outpatient referrals including Suboxone which is encouraging and shows she is at least contemplative in regard to stage of change. Motivational interviewing done. Overall, I spent a total of 60 minutes with this case including review of chart records, review of labwork, review of EKG QTc, direct evaluation of the patient at bedside, counseling the patient, discussion of the patient with the Nurse and with the hospitalist provider, discussion with the psychiatric liason during clinical rounds and documentation in the electronic health record. (1) Benzodiazepine withdrawal: Complication of substance-induced condition: with unspecified comp lication Qualified Code(s): F13.939 - Sedative, hypnotic or anxiolytic use, unspecified with withdrawal, unspecified (2) Alcohol withdrawal: Complication of substance-induced condition: with unspecified complication Qualified Code(s): F10.939 - Alcohol use, unspecified with withdrawal, unspecified (3) Alcohol use disorder: (4) Anxiety: (5) Chronic abdominal pain: (6) Insomnia: (7) Depression: (8) Chronic prescription opiate use: Plan -Psychiatric liason will provide resources on local mental health services and substance use services and attempt to set them up with outpatient services -Patient is not an imminent danger to self or others and does not meet criteria for involuntary psychiatric commitment -Continue AWSS as well as thiamine and folic acid -Start mirtazapine 15mg HS, can increase to 30mg HS if tolerated and further sedation needed -Start duloxetine 40mg daily and can increase to 60mg in one week if tolerated -Start Vistaril 25mg q4h prn for anxiety/panic attacks -Option to titrate gabapentin back to prior to admission dose, can be beneficial off-label for anxiety and alcohol use disorder -Consider further labwork if concern for minimization of the extent of recent alcohol use: * GGT * CDT Psych History Identifying Data Nadja Pete is a 44 yo woman with past medical history of anxiety, depression, insomnia, chronic pancreatitis, back/neck pain, alcohol use who presented to the ED on 05/19/2025 secondary to withdrawal symptoms. Psychiatry consulted for recommendations for "anxiety, depression, alcohol withdrawal, benzodiazepine withdrawal". Chief Complaint "I just feel awful". History of Present Illness Nadja was seen by psych consult service in 2021. Per chart review recently admitted in March for pancreatitis. Recent period of prolonged remission from alcohol use but relapsed in March with reported +UDS for alcohol at [facility] in March (she reports this was one time due to mixing up non- alcoholic and alcoholic beer) and then started drinking boxed wine two days ago. Nadja was admitted for alcohol relapse and worsening anxiety symptoms following multiple stressors including friend's , father's health issues and her pets declining condition. Today she reports ongoing anxiety with heart rate spikes to 130 causing chest pain and feeling like she is "having a heart attack all the time". He describes difficulty sleeping and chronic stomach pain over the last 6 months resulting in difficulty working. Since her oxycodone was recently discontinued after many months and clonazepam is being tapered due to recent alcohol use as this was in violation of her controlled substances contract with her outpatient providers. Reports recent trial of Prozac for anxiety up to 60 mg is ineffective. Mentions chronic neck problems with missed surgery and recent dental surgery removing a lot of teeth contributing to depression. Denies suicidal thoughts or wanting to hurt others. Endorses chronic issues sleeping. Denies any history of shelton. States she does not have "the alcohol thing" regarding her 2-day wine relapse after 17 months sobriety. Expresses frustration that her concerns about pain and anxiety or not being listened to. Wonders why she cannot be given Klonopin. States "I just want to feel better". Allergies Allergy/AdvReac Type Severity Reaction Status Date / Time buspirone [From BuSpar] Allergy Severe Unconscious, Verified 05/19/25 11:34 seizures quetiapine [From Seroquel] Allergy Severe Unconscious, Verified 05/19/25 11:34 seizures capsaicin AdvReac Intermediate Redness of Verified 05/19/25 11:34 Skin citalopram [From Celexa] AdvReac Intermediate Vomiting Verified 05/19/25 11:34 morphine AdvReac Intermediate Vomiting Verified 05/19/25 11:34 vilazodone [From Viibryd] AdvReac Intermediate Vomiting Verified 05/19/25 11:34 metoclopramide AdvReac Unknown "Twitchy" Verified 05/19/25 11:34 Home Medications Medication Instructions Recorded Confirmed Type cholecalciferol (vitamin D3) 250 250 mcg PO QAM 08/18/23 05/19/25 History mcg (10,000 unit) capsule mecobalamin (vitamin B12) 1,000 1,000 mcg PO QAM #100 tabs 01/20/24 05/19/25 Rx mcg chewable tablet (B12 Active) levonorgestrel 21 mcg/24 hr (up to 1 device intrauterine DIRECTED 08/16/24 05/19/25 History 8 years) 52 mg intrauterine device (Mirena) pantoprazole 40 mg tablet,delayed 40 mg PO BID #180 tabs 10/11/24 05/19/25 Rx release baclofen 20 mg tablet 20 mg PO TID PRN neck pain/muscle 10/20/24 05/19/25 Rx spasm #270 tabs apixaban 5 mg tablet (Eliquis) 5 mg PO BID #90 tabs 01/12/25 05/19/25 Rx sumatriptan succinate 100 mg tablet 100 mg PO DAILY PRN 02/03/25 05/19/25 Rx migraine/headache #20 tabs folic acid 1 mg tablet 1 mg PO QAM 02/17/25 05/19/25 History methocarbamol 750 mg tablet 750 mg PO TID PRN pain #90 tabs 03/30/25 05/19/25 Rx xsqkog-qqoabrty-trkyeyo 3 cap PO AC #180 caps 04/08/25 05/19/25 Rx 36,000-114,000-180,000 unit capsule,delay rel (Creon) ondansetron 4 mg disintegrating 4 mg PO Q6H PRN nausea and 04/08/25 05/19/25 Rx tablet vomiting #30 tabs potassium chloride 20 mEq 20 meq PO DAILY #30 tabs 04/08/25 05/19/25 Rx tablet,extended release(part/cryst) (Klor-Con M) gabapentin 600 mg tablet 600 mg PO TID PRN Pain #90 tabs 04/11/25 05/19/25 Rx promethazine 25 mg tablet 25 mg PO Q6H PRN nausea and 04/26/25 05/19/25 Rx vomiting #12 tabs clonazepam 0.5 mg tablet 0.5 mg PO DAILY PRN anxiety 05/19/25 05/19/25 History Patient History Medical History Medical marijuana use Chronic pancreatitis Chronic abdominal pain Portal vein thrombosis (2019) on eliquis Gastroparesis per pt is severe, following with [facility] Pancreatic pseudocyst Pancolitis Adjustment disorder with depressed mood Per records History of seizure due to alcohol withdrawal 2020, "from either alcohol or clonazepam" PTSD (post-traumatic stress disorder) Hx of migraines Iron deficiency anemia Insomnia Hiatal hernia Nocturnal hypoxia Noted during previous hospitalizations per patient, plan for future sleep study (not scheduled until 07/2024 per patient) Degeneration of thoracolumbar intervertebral disc History of colitis Cervical radiculopathy Cervical spondylosis Anxiety and depression Tendinitis of right rotator cuff Ongoing Acne Cream every 4-6 months GERD (gastroesophageal reflux disease) Panic attacks hx Peptic ulcer disease hx Surgical History H/O oral surgery History of breast biopsy History of esophagogastroduodenoscopy (EGD) 2017 History of cholecystectomy History of tooth extraction History of lumpectomy of right breast "benign" Family History Father Family history of diabetes mellitus Myocardial infarction Hypertension Stroke Grandfather (Maternal) Family history of diabetes mellitus Grandmother (Maternal) Family history of diabetes mellitus Cancer Hypertension Mother Hypothyroidism Grandfather (Paternal) Heart problem Cancer Grandmother (Paternal) Hypertension Other No family history of adverse response to anesthesia Denies family history of Ovarian cancer Prostate cancer Breast cancer Colorectal cancer Social History Smoking Status: Current every day smoker Tobacco Type: Cigarettes Age Started Using Tobacco: 15; packs per day: 0.5; Cigarettes Per Day: 10-15; Second Hand Exposure: No; Do You Dip or Chew Tobacco: No; Hx Alcohol Use: Yes Alcohol type: wine Hx Substance Use: Yes Last Used Substance: Hours (ago) Last Used Substance Other:: last used yesterday Substance Use Type Other:: medical card for sleep/anx Preferred Language: French Communication Ability: Effective Visual Impairment: No Limitations Hearing Ability: Normal 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 Beliefs That Will Affect Care: None marital status: Single Current Living Situation: Parent Current Living Situation Comment: home with mother and dog current occupational status: employed current occupation: at [employer] How many Children do You have: 0 Other Information That Helps Us Care for You: No Feels Safe at Home: Yes Safety Concerns: Feels Safe At This Time Childhood Exposure to Second-Hand Smoke: No Diet: regular Diet Comment: regular Dental Care, Regularly: Yes Physical Activity Frequency: Does not Exercise Seatbelt Use: always Sunscreen Use: Yes Do you think of yourself as: straight/heterosexual Assistive Devices: None Physical Exam Psychiatric: Orientation: alert and oriented x 3 Apperance: appropriately dressed and appropriately groomed Eye Contact: good eye contact Motor Behavior: no abnormal motor movements Speech: normal rate/rhythm/volume of speech Affect: + anxious affect Mood: + depressed mood and + anxious mood Thought Process: linear/logical thought process and + perseveration Thought Content: reality based without delusions Suicidal Thoughts: denies suicidal thoughts Homicidal Thoughts: denies homicidal thoughts Hallucinations: no auditory hallucinations and no visual hallucinations Cognition: recent memory grossly intact, remote memory grossly intact, attention grossly intact and language grossly intact Estimated Intelligence: consistent with education level Insight: + limited insight Judgment: + fair judgement Vital Signs (Past 24 Hours): Last Vital Signs Temp 36.6 C 05/20/25 07:27 Pulse 108 H 05/20/25 07:27 Resp 16 08/22/25 07:27 BP 124/85 05/20/25 07:27 Pulse Ox 98 05/20/25 07:27 O2 Del Method Room Air 05/20/25 07:27 Results & Data (PSY) Medications Administered Acetaminophen (Acetaminophen 325 Mg Tab) 650 mg PO Q4H PRN PRN Reason: Pain or Fever Stop: 06/18/25 13:47 Last Admin: 05/19/25 17:00 Dose: 650 mg Documented By: ISRAEL Co-signed By: DIONE Apixaban (Apixaban 5 Mg Tablet) 5 mg PO BID COUNT INCLUDES THE [facility] Stop: 06/18/25 20:59 Last Admin: 05/20/25 10:18 Dose: 5 mg Documented By: ISRAEL Co-signed By: KYLIE Admin: 05/19/25 20:40 Dose: 5 mg Documented By: ISAAK Cyanocobalamin (Cyanocobalamin (B-12) 500 Mcg Tablet) 1,000 mcg PO QAM CIRO Stop: 06/19/25 08:59 Last Admin: 05/20/25 10:17 Dose: 1,000 mcg Documented By: TB Co-signed By: KYLIE Folic Acid (Folic Acid 1 Mg Tab) 1 mg PO QAM CIRO Stop: 06/19/25 08:59 Last Admin: 05/20/25 10:18 Dose: 1 mg Documented By: ISRAEL Co-signed By: KYLIE Gabapentin (Gabapentin 600 Mg Tab) 600 mg PO TID PRN PRN Reason: Pain Stop: 06/18/25 13:47 Last Admin: 05/19/25 19:36 Dose: 600 mg Documented By: ISAAK Famotidine (Pepcid 20mg Iv Push) 20 mg in 5 mls @ 2.5 mls/min IV Q12H COUNT INCLUDES THE [facility] Stop: 06/18/25 12:29 Last Admin: 05/20/25 01:39 Dose: 2.5 mls/min Documented By: Admin: 05/19/25 15:00 Dose: 2.5 mls/min Documented By: ISRAEL Co-signed By: DIONE Lorazepam (Lorazepam 1 Mg Tab) 1 mg PO UD PRN; Protocol PRN Reason: EtOH Withdrawal AWSS Score 6,7 Stop: 06/18/25 20:34 Last Admin: 05/19/25 20:52 Dose: 1 mg Documented By: ISAAK Methocarbamol (Methocarbamol 750 Mg Tablet) 750 mg PO TID PRN PRN Reason: pain Stop: 06/18/25 13:47 Last Admin: 05/20/25 06:23 Dose: 750 mg Documented By: ISAAK Ondansetron HCl (Ondansetron 4 Mg Od Tab) 4 mg PO Q6H PRN PRN Reason: nausea and vomiting Stop: 06/18/25 13:47 Last Admin: 05/20/25 09:00 Dose: 4 mg Documented By: ISRAEL Co-signed By: KYLIE Admin: 05/19/25 16:30 Dose: 4 mg Documented By: DIONE Pantoprazole Sodium (Pantoprazole 40 Mg Tab) 40 mg PO BID COUNT INCLUDES THE [facility] Stop: 06/18/25 20:59 Last Admin: 05/20/25 10:17 Dose: 40 mg Documented By: ISRAEL Co-signed By: KYLIE Admin: 05/19/25 20:40 Dose: 40 mg Documented By: ISAAK Potassium Chloride (Potassium Chloride Crtab 20 Meq Tabcr) 20 meq PO DAILY CIRO Stop: 06/19/25 08:59 Last Admin: 05/20/25 08:56 Dose: 20 meq Documented By: ISRAEL Co-signed By: KYLIE Promethazine HCl (Promethazine Hcl 25 Mg Tab) 25 mg PO Q6H PRN PRN Reason: nausea and vomiting Stop: 06/18/25 13:47 Last Admin: 05/20/25 06:23 Dose: 25 mg Documented By: Admin: 05/19/25 18:16 Dose: 25 mg Documented By: DIONE Thiamine HCl (Thiamine Hcl 100 Mg Tab) 100 mg PO QAM COUNT INCLUDES THE [facility] Stop: 06/19/25 08:59 Last Admin: 05/20/25 08:58 Dose: 100 mg Documented By: ISRAEL Co-signed By: KYLIE Vitamin D (Cholecalciferol 125 Mcg (5,000 Units) Tab) [facility] Stop: 06/19/25 08:59 Last Admin: 05/20/25 10:18 Dose: 250 mcg Documented By: ISRAEL Co-signed By: KYLIE Coding Level of Care Code 30748 IN/OBS CONSULT LVL 4,60M Diagnoses Benzodiazepine withdrawal F13.939 Complication of substance-induced condition: with unspecified complication Alcohol withdrawal F10.939 Complication of substance-induced condition: with unspecified complication Alcohol use disorder F10.90 Anxiety F41.9 Chronic abdominal pain R10.9; G89.29 Insomnia G47.00 Depression F32.A Chronic prescription opiate use Z79.891
--- NOTE | 2025-05-20 12:21 | Hospitalist Progress Note ---
Date of Service May 20, 2025 Assessment & Plan (1) Alcohol withdrawal: (2) Benzodiazepine withdrawal: (3) Intractable abdominal pain: (4) Elevated LFTs: (5) Portal vein thrombosis: Plan This is a 44 year old female with past medical history of chronic pancreatitis, back/neck pain, alcohol abuse who presented to the ED on 05/19/2025 secondary to withdrawal symptoms. While in the ED CBC & BMP were stable. Her LFTs were mildly elevated w/ a AST of 164 and ALT of 77. Alk phos elevated at 351. TB WNL. Lipase WNL. Troponin WNL. Urinalysis negative for infection. Drug screen positive for opiates and marijuana. Alcohol level significantly elevated at 304.3. CTAP shows findings consistent with chronic pancreatitis, hepatic steatosis. CXR was negative. #Alcohol abuse/benzodiazepine withdrawal/anxiety/depression was previously 17 months sober but drank in March, was admitted at [facility] for this. Unfortunately due to testing + for alcohol, she violated her contract w/ PCP for her chronic oxycodone + clonazepam use. Clonazepam last filled 05/14 @ tapering dose but was taking @ usual dose (28 day supply); Oxycodone last filled 04/12 w/ 11 days worth. CBC stable, BMP stable. Alc level 304.3; tox screen + for marijuana & opiates - per patient she does have marijuana medical card Serum osmol high @ 391 --> additional alcohol studies ordered including ethylene glycol, methyl alcohol Continue Librium taper - doing well thus far. Thiamine/folic acid supplement Psych consulted for management of anxiety/depression now being off clonazepam --> recommending Mirtazapine 15mg HS and Duloxetine 40mg PO daily. Vistaril 25mg PO q4h for anxiety/panic attacks. Will have patient set up with outpatient resources. #Transaminitis Secondary to alcohol use CTAP: changes consistent w/ chronic pancreatitis, hepatic steatosis TB 1.2, AST/ALT 88/56, AP 317 Lipase WNL, troponin negative. #Abdominal pain abd pain, n/v - secondary to withdrawal symptoms + component of gastritis + hx of cannabinoid hyperemesis syndrome Continue PPI BID Pepcid BID added in event it is alcohol related gastritis Avoid narcotics given she is unable to have them filled by PCP on outpatient basis #hypokalemia stable on admission continue 20meq daily #hx portal vein thrombosis - continue Eliquis DVT prophylaxis: Eliquis Code: full Admission and Anticipated Discharge Date Admission Date: May 19, 2025 Supervising Physician Co-Signing Physician Notes The patient was not seen by me. The chart was reviewed. Case discussed with JOJO Lofton. Agree with assessment and plan Subjective Nadja seen and examined today. She appeared in no acute distress at time of encounter. Stated that she feels anxious and does have abdominal pain but she w as able to eat lunch without any issues. She is grateful for the staff as they have been kind to her thus far. Physical Exam Constitutional: WD/WN, vitals as above Eyes: PERRL, conjunctivae normal, anicteric sclerae Respiratory: normal respiratory effort Skin: no rashes, warm and dry Neurologic: PERRL, EOMI, accommodation nl, no face palsy, no dysarthria Psychiatric: A+Ox3, euthymic affect Results & Data Results & Data Vital Signs (Past 12 Hours) Vital Signs Temp Pulse Resp BP Pulse Ox O2 Del Method 05/20/25 11:27 36.9 C 109 H 24 131/92 98 Room Air 05/20/25 07:27 36.6 C 108 H 16 124/85 98 Room Air 05/20/25 03:22 36.7 C 101 H 16 121/75 95 Room Air PG Care Time/CCT Total # of Minutes Spent Total Time Spent with Patient: Total time spent is greater than 50% in coordination of care (as documented) at patient's floor/unit and/or counseling patient: Coding Level of Care Code 26838 SUB INP/OBS CARE 2/35MIN Diagnoses Alcohol withdrawal F10.939 Complication of substance-induced condition: with unspecified complication Benzodiazepine withdrawal F13.939 Complication of substance-induced condition: with unspecified complication Intractable abdominal pain R10.9 Elevated LFTs R79.89 Portal vein thrombosis I81 (1) Alcohol withdrawal Complication of substance-induced condition: with unspecified complication Qualified Code(s): F10.939 - Alcohol use, unspecified with withdrawal, unspecified (2) Benzodiazepine withdrawal Complication of substance-induced condition: with unspecified complication Qualified Code(s): F13.939 - Sedative, hypnotic or anxiolytic use, unspecified with withdrawal, unspecified
[2025-05-20] MEDS: MIRTAZAPINE TAB 15 MG TAB PO SCH (21:48)
[2025-05-21 06:16] LABS: Hematocrit (blood only) 38.4 % (37.0-47.0); Hemoglobin 12.8 g/dl (12.0-16.0); Mean Corpuscular Hemoglobin 31.1 pg (25.0-34.0); Mean Corpuscular Volume 93.2 fL (80.0-100.0); Platelet Count 286 K/uL (130-400); RDW Standard Deviation 52.1 fL (36.4-46.3); Red Blood Count 4.12 M/uL (4.20-5.40); White Blood Count 6.81 K/ul (4.8-10.8)
[2025-05-21 06:40] LABS: INR 1.0 (0.9-1.1); Prothrombin Time 10.7 Seconds (9.0-12.0)
[2025-05-21 06:48] LABS: Alanine Aminotransferase 39.0 U/L (7-52); Albumin Globulin Ratio 1.4 (0.9-2); Alkaline Phosphatase 281.0 U/L (34-104); Anion Gap 8.0 (3-11); Bilirubin,Total 0.5 mg/dl (0.2-1.0); Blood Urea Nitrogen 7.0 mg/dl (6-23); Calcium 9.3 mg/dl (8.6-10.3); Carbon Dioxide 29.0 mmol/L (21-32); Chloride 104.0 mmol/L (98-107); Creatinine Clr Calc Pharmacy 82.3 ml/min; Globulin 2.7 gm/dl (2.5-4.0); Glucose 95.0 mg/dl (70-99(Fasting)); Potassium 3.8 mmol/L (3.5-5.1); Sodium 141.0 mmol/L (136-145); Total Protein 6.6 gm/dl (6.0-8.3)
--- NOTE | 2025-05-21 06:59 | Electrocardiogram Report ---
Test Reason : Blood Pressure : */* mmHG Vent. Rate : 139 BPM Atrial Rate : 139 BPM P-R Int : 136 ms QRS Dur : 72 ms QT Int : 286 ms P-R-T Axes : 66 67 62 degrees QTcB Int : 435 ms Sinus tachycardia Otherwise normal ECG When compared with ECG of 06-Apr-2025 10:56, HR has increased Confirmed by Bry Quintana ([id number]) on 05/21/2025 6:59:21 AM Referred By: REFERRED SELF Confirmed By: Bry Quintana
--- NOTE | 2025-05-21 12:12 | Hospitalist Progress Note ---
Date of Service May 21, 2025 Assessment & Plan (1) Alcohol withdrawal: (2) Benzodiazepine withdrawal: (3) Intractable abdominal pain: (4) Elevated LFTs: (5) Portal vein thrombosis: Plan This is a 44 year old female with past medical history of chronic pancreatitis, back/neck pain, alcohol abuse who presented to the ED on 05/19/2025 secondary to withdrawal symptoms. While in the ED CBC & BMP were stable. Her LFTs were mildly elevated w/ a AST of 164 and ALT of 77. Alk phos elevated at 351. TB WNL. Lipase WNL. Troponin WNL. Urinalysis negative for infection. Drug screen positive for opiates and marijuana. Alcohol level significantly elevated at 304.3. CTAP shows findings consistent with chronic pancreatitis, hepatic steatosis. CXR was negative. #Alcohol abuse/benzodiazepine withdrawal/anxiety/depression was previously 17 months sober but drank in March, was admitted at [facility] for this. Unfortunately due to testing + for alcohol, she violated her contract w/ PCP for her chronic oxycodone + clonazepam use. Clonazepam last filled 05/14 @ tapering dose but was taking @ usual dose (28 day supply); Oxycodone last filled 04/12. CBC stable, BMP stable. Alc level 304.3; tox screen + for marijuana & opiates - per patient she does [place] marijuana medical card Serum osmol high @ 391 --> additional alcohol studies ordered including ethylene glycol, methyl alcohol Continue Librium taper - has been scoring well on AWSS. Thiamine/folic acid supplement Psych consulted for management of anxiety/depression now being off clonazepam --> recommending Mirtazapine 15mg HS and Duloxetine 40mg PO daily. Vistaril 25mg PO q4h for anxiety/panic attacks. Will have patient set up with outpatient resources. #Transaminitis - resolving Secondary to alcohol use CTAP: changes consistent w/ chronic pancreatitis, hepatic steatosis TB 0.5, AST/ALT 38/39, AP 281 Lipase WNL, troponin negative. #Abdominal pain abd pain, n/v - secondary to withdrawal symptoms + component of gastritis + hx of cannabinoid hyperemesis syndrome Continue PPI BID Pepcid BID added in event it is alcohol related gastritis Avoid narcotics/additional benzos given she is unable to have them filled by PCP on outpatient basis #hypokalemia stable on admission continue 20meq daily #hx portal vein thrombosis - continue Eliquis DVT prophylaxis: Eliquis Code: full Discussed w/ psych liaison 05/21. Admission and Anticipated Discharge Date Admission Date: May 19, 2025 Supervising Physician Co-Signing Physician Notes The patient was not seen by me. The chart was reviewed. Case discussed with JOJO Lofton. Agree with assessment and plan Subjective Nadja seen & examined this morning. She was tearful, upset, and anxious at time of encounter. Requested repeatedly for Ativan or Klonopin secondary to anxiety. Discussed w/ patient that given she does not have a provider to prescribe these in the outpatient setting, she should not have any in the inpatient setting as she is trying to wean off of them. Discussed her Librium and the Hydroxyzine that she can ask for as needed. She reports that she "cannot do this" because of her anxiety. Discussed speaking w/ the psych liaison again which she was agreeable to Physical Exam Constitutional: tearful, anxious Eyes: PERRL, conjunctivae normal, anicteric sclerae Respiratory: normal respiratory effort Skin: no rashes, warm and dry Neurologic: PERRL, EOMI, accommodation nl, no face palsy, no dysarthria Psychiatric: Orientation: alert and oriented x 3 Affect: + anxious affect and + tearful affect Mood: + anxious mood Results & Data Results & Data Vital Signs (Past 12 Hours) Vital Signs Temp Pulse Pulse Resp BP Pulse Ox O2 Del Method 05/21/25 11:24 36.6 C 107 H 18 115/84 98 Room Air 05/21/25 09:02 91 H 05/21/25 07:14 36.8 C 105 H 18 102/61 96 Room Air 05/21/25 04:36 36.4 C L 93 H 14 118/79 97 Room Air PG Care Time/CCT Total # of Minutes Spent Total Time Spent with Patient: Total time spent is greater than 50% in coordination of care (as documented) at patient's floor/unit and/or counseling patient: Coding Level of Care Code 59955 SUB INP/OBS CARE 2/35MIN Diagnoses Alcohol withdrawal F10.939 Complication of substance-induced condition: with unspecified complication Benzodiazepine withdrawal F13.939 Complication of substance-induced condition: with unspecified complication Intractable abdominal pain R10.9 Elevated LFTs R79.89 Portal vein thrombosis I81 (1) Alcohol withdrawal Complication of substance-induced condition: with unspecified complication Qualified Code(s): F10.939 - Alcohol use, unspecified with withdrawal, unspecified (2) Benzodiazepine withdrawal Complication of substance-induced condition: with unspecified complication Qualified Code(s): F13.939 - Sedative, hypnotic or anxiolytic use, unspecified with withdrawal, unspecified
[2025-05-22 04:22] LABS: Methyl Alcohol Comment WHOLE BLOOD; Methyl Alcohol Level NONE DETECTED (NONE DETECTED)
[2025-05-22 05:13] LABS: Hydrocodone Urine 107 ng/mL (<50); Hydromor Urine NEGATIVE ng/mL (<50); Marijuana Quant, GCMS Urine 51 ng/mL (<5); Noroxycodone Urine NEGATIVE ng/mL (<50); Oxymorph Urine NEGATIVE ng/mL (<50)
--- NOTE | 2025-05-22 12:08 | Hospitalist Progress Note ---
Date of Service May 22, 2025 Assessment & Plan (1) Alcohol withdrawal: (2) Benzodiazepine withdrawal: (3) Intractable abdominal pain: (4) Elevated LFTs: (5) Portal vein thrombosis: Plan This is a 44 year old female with past medical history of chronic pancreatitis, back/neck pain, alcohol abuse who presented to the ED on 05/19/2025 secondary to withdrawal symptoms. While in the ED CBC & BMP were stable. Her LFTs were mildly elevated w/ a AST of 164 and ALT of 77. Alk phos elevated at 351. TB WNL. Lipase WNL. Troponin WNL. Urinalysis negative for infection. Drug screen positive for opiates and marijuana. Alcohol level significantly elevated at 304.3. CTAP shows findings consistent with chronic pancreatitis, hepatic steatosis. CXR was negative. #Alcohol abuse/benzodiazepine withdrawal/anxiety/depression was previously 17 months sober but drank in March, was admitted at [facility] for this. Unfortunately due to testing + for alcohol, she violated her contract w/ PCP for her chronic oxycodone + clonazepam use. Clonazepam last filled 05/14 @ tapering dose but was taking @ usual dose (28 day supply); Oxycodone last filled 04/12. CBC stable, BMP stable. Alc level 304.3; tox screen + for marijuana & opiates - per patient she does [place] marijuana medical card Serum osmol high @ 391 --> additional alcohol studies ordered including ethylene glycol (still pending), methyl alcohol (neg) 2 doses left of Librium taper (10mg q12h) then completed --> AWSS score ~1 Thiamine/folic acid supplement Psych consulted for management of anxiety/depression now being off clonazepam --> recommending Mirtazapine and Duloxetine daily. Vistaril 25mg PO q4h for anxiety/panic attacks. Will have patient set up with outpatient resources. Increased Mirtazapine to 30mg HS & added scheduled gabapentin TID (previously prn) Avoid benzos & oxycodone given she is unable to have them filled by PCP on outpatient basis --> has continually asked staff for clonazepam or oxycodone, continue to reinforce she is unable to take these medications. #Transaminitis - resolving Secondary to alcohol use CTAP: changes consistent w/ chronic pancreatitis, hepatic steatosis TB 0.5, AST/ALT 38/39, AP 281 Lipase WNL, troponin negative. #Abdominal pain abd pain, n/v - secondary to withdrawal symptoms + component of gastritis + hx of cannabinoid hyperemesis syndrome Continue PPI BID Pepcid BID added in event it is alcohol related gastritis #hypokalemia stable on admission continue 20meq daily #hx portal vein thrombosis - continue Eliquis DVT prophylaxis: Eliquis Code: full Admission and Anticipated Discharge Date Admission Date: May 19, 2025 Supervising Physician Co-Signing Physician Notes The patient was not seen by me. The chart was reviewed. Case discussed with JOJO Lofton. Agree with assessment and plan Subjective Nadja seen and examined this morning. She reports she is feeling minimally better today. She reports feeling anxious and abdominal pain. Physical Exam Constitutional: WD/WN, vitals as above Eyes: PERRL, conjunctivae normal, anicteric sclerae Respiratory: normal respiratory effort Skin: no rashes, warm and dry Neurologic: PERRL, EOMI, accommodation nl, no face palsy, no dysarthria Psychiatric: A&Ox3, anxious Results & Data Results & Data Vital Signs (Past 12 Hours) Vital Signs Temp Pulse Pulse Resp BP BP Pulse Ox 05/22/25 11:30 36.5 C 97 H 18 124/84 98 05/22/25 07:54 36.1 C L 05/22/25 07:43 86 05/22/25 07:26 96 H 18 133/96 99 05/22/25 04:34 36.5 C 83 16 95/64 L 95 O2 Del Method 05/22/25 11:30 Room Air 05/22/25 07:54 05/22/25 07:43 05/22/25 07:26 Room Air 05/22/25 04:34 Room Air PG Care Time/CCT Total # of Minutes Spent Total Time Spent with Patient: Total time spent is greater than 50% in coordination of care (as documented) at patient's floor/unit and/or counseling patient: Coding Level of Care Code 97465 SUB INP/OBS CARE 2/35MIN Diagnoses Alcohol withdrawal F10.939 Complication of substance-induced condition: with unspecified complication Benzodiazepine withdrawal F13.939 Complication of substance-induced condition: with unspecified complication Intractable abdominal pain R10.9 Elevated LFTs R79.89 Portal vein thrombosis I81 (1) Alcohol withdrawal Complication of substance-induced condition: with unspecified complication Qualified Code(s): F10.939 - Alcohol use, unspecified with withdrawal, unspecified (2) Benzodiazepine withdrawal Complication of substance-induced condition: with unspecified complication Qualified Code(s): F13.939 - Sedative, hypnotic or anxiolytic use, unspecified with withdrawal, unspecified
[2025-05-22] MEDS: GABAPENTIN 600 MG TAB PO SCH (15:55)
[2025-05-22] MEDS: MIRTAZAPINE TAB 15 MG TAB PO SCH (21:09)
--- NOTE | 2025-05-23 12:19 | Hospitalist Progress Note ---
Date of Service May 23, 2025 Assessment & Plan (1) Alcohol withdrawal: (2) Benzodiazepine withdrawal: (3) Intractable abdominal pain: (4) Elevated LFTs: (5) Portal vein thrombosis: Plan This is a 44 year old female with past medical history of chronic pancreatitis, back/neck pain, alcohol abuse who presented to the ED on 05/19/2025 secondary to withdrawal symptoms. Clonazepam last filled 05/14 @ tapering dose but was taking @ usual dose (28 day supply); Oxycodone last filled 04/12. Alc level 304.3; tox screen + for marijuana & opiates - per patient she does have marijuana medical card. CT A/P showed findings consistent with chronic pancreatitis, hepatic steatosis. CXR was negative. #Alcohol abuse | Benzodiazepine withdrawal | Anxiety | Depression - was previously 17 months sober but drank in March, was admitted at [facility] for this. Unfortunately due to testing + for alcohol, she violated her contract w/ PCP for her chronic oxycodone + clonazepam use. - Serum osmol high @ 391 --> additional alcohol studies ordered including eth ylene glycol (still pending), methyl alcohol (neg) - Completed Librium taper 05/23 - Continue Thiamine/folic acid supplement - Psych consulted for management of anxiety/depression now being off clonazepam --> recommending Mirtazapine and Duloxetine daily. Vistaril 25mg PO q4h for anxiety/panic attacks. Will have patient set up with outpatient resources. Asked psych to revisit 05/23 per patient's request - Continue increased Mirtazapine to 30mg HS & added scheduled gabapentin TID (previously prn) - Avoid benzos & oxycodone given she is unable to have them filled by PCP on outpatient basis --> has continually asked staff for clonazepam or oxycodone, continue to reinforce she is unable to take these medications. #Transaminitis - nearly resolved. Secondary to alcohol use - CT A/P: changes consistent w/ chronic pancreatitis, hepatic steatosis - TB 0.5, AST/ALT 38/39, AP 281 - Lipase WNL, troponin negative #Abdominal pain - secondary to withdrawal symptoms + component of gastritis + hx of cannabinoid hyperemesis syndrome - Continue PPI BID - Continue Pepcid BID in event it is alcohol related gastritis #Hypokalemia - continue 20meq daily #Hx portal vein thrombosis - continue Eliquis DVT prophylaxis: Stephen Dispo: Continued inpatient stay for further medication adjustments Updated mother at bedside Admission and Anticipated Discharge Date Admission Date: May 19, 2025 Subjective Patient seen and evaluated at bedside with her mother present. She reports ongoing pain "all over" and increased anxiety. She does not feel that her complaints have been taken seriously. She repeatedly asked for oxycodone. She appears to have poor insight into her drinking habits and seriousness of her current condition. She refers to her alcohol relapse as a "slip up" and states "people have slip ups sometimes. I have no problem with alcohol or oxycodone." She would like to speak with psych regarding Suboxone. She reports "none of these medicines they have given me help at all." Emotional support provided throughout visit. She reports poor sleep x several months. She does not have an appetite at this time. ROS difficult to obtain secondary to conflicting answers throughout our conversation. Review of Systems Constitutional: + malaise and + insomnia Gastrointestinal: + abdominal pain (generalized, worse in epigastrium ) Psychiatric: + irritability and + anxiety Physical Exam Physical Exam: General: No acute distress, nondiaphoretic. Appears anxious, picking at fingers. Skin: Warm, dry. No rashes or peripheral edema noted. Cardiac: Tachycardic in 110s. Well-perfused. Pulm: Normal respiratory effort. 94% on room air. Abdominal: Soft, nontender on palpation, nondistended. Bowel sounds present. Neuro: A&O x3. No focal neurological deficits. Psych: Poor insight. Appears motivated to change. Results & Data Results & Data Vital Signs (Past 12 Hours) Vital Signs Temp Pulse Resp BP Pulse Ox O2 Del Method 05/23/25 11:32 97.5 F L 111 H 18 134/89 94 Room Air PG Care Time/CCT Total # of Minutes Spent Total Time Spent with Patient: Total time spent is greater than 50% in coordination of care (as documented) at patient's floor/unit and/or counseling patient: Coding Level of Care Code 68293 SUB INP/OBS CARE 2/35MIN Diagnoses Alcohol withdrawal F10.939 Complication of substance-induced condition: with unspecified complication Benzodiazepine withdrawal F13.939 Complication of substance-induced condition: with unspecified complication Intractable abdominal pain R10.9 Elevated LFTs R79.89 Portal vein thrombosis I81 (1) Alcohol withdrawal Complication of substance-induced condition: with unspecified complication Qu alified Code(s): F10.939 - Alcohol use, unspecified with withdrawal, unspecified (2) Benzodiazepine withdrawal Complication of substance-induced condition: with unspecified complication Qualified Code(s): F13.939 - Sedative, hypnotic or anxiolytic use, unspecified with withdrawal, unspecified
[2025-05-23] MEDS: BACLOFEN 20 MG TAB PO PRN (20:55)
--- NOTE | 2025-05-24 09:46 | Hospitalist Progress Note ---
Date of Service May 24, 2025 Assessment & Plan (1) Alcohol withdrawal: (2) Benzodiazepine withdrawal: (3) Intractable abdominal pain: (4) Elevated LFTs: (5) Portal vein thrombosis: Plan This is a 44 year old female with past medical history of chronic pancreatitis, back/neck pain, alcohol abuse who presented to the ED on 05/19/2025 secondary to withdrawal symptoms. Clonazepam last filled 05/14 @ tapering dose but was taking @ usual dose (28 day supply); Oxycodone last filled 04/12. Alc level 304.3; tox screen + for marijuana & opiates - per patient she does have marijuana medical card. CT A/P showed findings consistent with chronic pancreatitis, hepatic steatosis. CXR was negative. #Alcohol abuse | Benzodiazepine withdrawal | Anxiety | Depression - was previously 17 months sober but drank in March, was admitted at [facility] for this. Unfortunately due to testing + for alcohol, she violated her contract w/ PCP for her chronic oxycodone + clonazepam use. - Serum osmol high @ 391 --> additional alcohol studies ordered including eth ylene glycol (still pending), methyl alcohol (neg) - Completed Librium taper 05/23 - Continue Thiamine/folic acid supplement - Psych consulted for management of anxiety/depression now being off clonazepam --> recommending Mirtazapine and Duloxetine daily. Vistaril 25mg PO q4h for anxiety/panic attacks. Will have patient set up with outpatient resources. Currently working on kiko Saez set up with Suboxone clinic - Continue increased Mirtazapine to 30mg HS & added scheduled gabapentin TID (previously prn) - Avoid benzos & oxycodone given she is unable to have them filled by PCP on outpatient basis --> has continually asked staff for clonazepam or oxycodone, continue to reinforce she is unable to take these medications. #Transaminitis - nearly resolved. Secondary to alcohol use - CT A/P: changes consistent w/ chronic pancreatitis, hepatic steatosis - TB 0.5, AST/ALT 38/39, AP 281 - Lipase WNL, troponin negative #Abdominal pain - secondary to withdrawal symptoms + component of gastritis + hx of cannabinoid hyperemesis syndrome - Continue PPI BID - Continue Pepcid BID in event it is alcohol related gastritis #Hypokalemia - continue 20meq daily #Hx portal vein thrombosis - continue Eliquis DVT prophylaxis: Eliquis Dispo: Continued inpatient stay while coordinating safe discharge plan Discussed case with psychiatry Admission and Anticipated Discharge Date Admission Date: May 19, 2025 Subjective Patient seen and evaluated at bedside this morning with psych liaison and RN. She reports "I am in so much pain all over." She also reports feeling significantly anxious. We discussed her events overnight as she was reported to be anxious, restless, delirious, and having hallucinations. She is completely oriented at this time. She repeatedly states "I am not confused." She is able to recall events from yesterday and overnight. We again discussed that she will not be prescribed any oxycodone and she does verbalize understanding of this today. She continues to seem motivated to improve in the outpatient setting. Psych liaison reviewed what phone calls she needs to make for intake information for Suboxone clinic; psych liaison plans to follow-up this afternoon about the status of these phone calls. Nadja asked for nausea and anxiety medications at this time. No additional complaints or concerns currently. Review of Systems Review of Systems: All systems reviewed & are unremarkable except as noted in HPI & below Gastrointestinal: + abdominal pain Musculoskeletal: + back pain and + neck pain Psychiatric: + anxiety Physical Exam Physical Exam: General: No acute distress, nondiaphoretic. Appears anxious, picking at fingers. Skin: Warm, dry. No rashes or peripheral edema noted. Cardiac: Tachycardic in 110s. Well-perfused. Pulm: Normal respiratory effort. 94% on room air. Abdominal: Soft, nontender on palpation, nondistended. Bowel sounds present. Neuro: A&O x3. No focal neurological deficits. Psych: Poor insight. Appears motivated to change. Results & Data Results & Data Vital Signs (Past 12 Hours) Vital Signs Temp Pulse Resp BP Pulse Ox O2 Del Method 05/23/25 23:00 97.7 F 118 H 20 139/102 H 96 Room Air Laboratory Results Reviewed CMP PG Care Time/CCT Total # of Minutes Spent Total Time Spent with Patient: Total time spent is greater than 50% in coordination of care (as documented) at patient's floor/unit and/or counseling patient: Coding Level of Care Code 83623 SUB INP/OBS CARE 3/50MIN Diagnoses Alcohol withdrawal F10.939 Complication of substance-induced condition: with unspecified complication Benzodiazepine withdrawal F13.939 Complication of substance-induced condition: with unspecified complication Intractable abdominal pain R10.9 Elevated LFTs R79.89 Portal vein thrombosis I81 (1) Alcohol withdrawal Complication of substance-induced condition: with unspecified complication Qualified Code(s): F10.939 - Alcohol use, unspecified with withdrawal, unspecified (2) Benzodiazepine withdrawal Complication of substance-induced condition: with unspecified complication Q ualified Code(s): F13.939 - Sedative, hypnotic or anxiolytic use, unspecified with withdrawal, unspecified
[2025-05-24 10:13] LABS: Alanine Aminotransferase 29.0 U/L (7-52); Albumin Globulin Ratio 1.5 (0.9-2); Alkaline Phosphatase 195.0 U/L (34-104); Anion Gap 7.0 (3-11); Bilirubin,Total 0.4 mg/dl (0.2-1.0); Blood Urea Nitrogen 11.0 mg/dl (6-23); Calcium 10.1 mg/dl (8.6-10.3); Carbon Dioxide 32.0 mmol/L (21-32); Chloride 104.0 mmol/L (98-107); Creatinine Clr Calc Pharmacy 76.8 ml/min; Globulin 3.0 gm/dl (2.5-4.0); Glucose 117.0 mg/dl (70-99(Fasting)); Potassium 3.9 mmol/L (3.5-5.1); Sodium 143.0 mmol/L (136-145); Total Protein 7.6 gm/dl (6.0-8.3)
[2025-05-24] MEDS ORDERED: CALCIUM CARBONATE 500 MG CHEWABLE TAB PO PRN (19:53)
[2025-05-24] MEDS: FAMOTIDINE 20 MG TAB PO SCH (20:12)
[2025-05-25] MEDS: MAGNESIUM SULFATE / D5W 1 GM/100 ML BAG IV SCH (00:23)
[2025-05-25] MEDS: LIDOCAINE VISCOUS 2% 15 ML UDC MT ONE (00:24)
--- NOTE | 2025-05-25 10:53 | Hospitalist Progress Note ---
Date of Service May 25, 2025 Assessment & Plan (1) Alcohol withdrawal: (2) Benzodiazepine withdrawal: (3) Intractable abdominal pain: (4) Elevated LFTs: (5) Portal vein thrombosis: Plan This is a 44 year old female with past medical history of chronic pancreatitis, back/neck pain, alcohol abuse who presented to the ED on 05/19/2025 secondary to withdrawal symptoms. Clonazepam last filled 05/14 @ tapering dose but was taking @ usual dose (28 day supply); Oxycodone last filled 04/12. Alc level 304.3; tox screen + for marijuana & opiates - per patient she does have marijuana medical card. CT A/P showed findings consistent with chronic pancreatitis, hepatic steatosis. CXR was negative. #Alcohol abuse | Benzodiazepine withdrawal | Anxiety | Depression - was previously 17 months sober but drank in March, was admitted at [facility] for this. Unfortunately due to testing + for alcohol, she violated her contract w/ PCP for her chronic oxycodone + clonazepam use. - Serum osmol high @ 391 --> additional alcohol studies ordered including eth ylene glycol (still pending), methyl alcohol (neg) - Completed Librium taper 05/23 - Continue Thiamine/folic acid supplement - Psych consulted for management of anxiety/depression now being off clonazepam --> recommending Mirtazapine and Duloxetine daily. Vistaril 25mg PO q4h for anxiety/panic attacks. Will have patient set up with outpatient resources. Currently working on kiko Saez set up with Suboxone clinic - Continue increased Mirtazapine to 30mg HS & added scheduled gabapentin TID (previously prn) - Avoid benzos & oxycodone given she is unable to have them filled by PCP on outpatient basis --> has continually asked staff for clonazepam or oxycodone, continue to reinforce she is unable to take these medications. #Transaminitis - nearly resolved. Secondary to alcohol use - CT A/P: changes consistent w/ chronic pancreatitis, hepatic steatosis - TB 0.5, AST/ALT 38/39, AP 281 - Lipase WNL, troponin negative #Abdominal pain - secondary to withdrawal symptoms + component of gastritis + hx of cannabinoid hyperemesis syndrome - Continue PPI BID - Continue Pepcid BID in event it is alcohol related gastritis #Hypokalemia - continue 20meq daily #Hx portal vein thrombosis - continue Eliquis DVT prophylaxis: Eliquis Dispo: Continued inpatient stay while coordinating safe discharge plan Updated mother at bedside Admission and Anticipated Discharge Date Admission Date: May 19, 2025 Subjective Patient seen evaluated at bedside with her mother present. She reports "I feel very weak and disoriented." She is oriented to person, place, event, she is intermittently confused about time. She gives conflicting answers regarding ROS. She states that she has been sleeping well overnight but then states that she has not slept since August. RN reports she is been quite paranoid this morning. She has not yet made the phone calls for her intake questionnaires for her outpatient appointments. I again encouraged her to do so. She reports she will make these phone calls this morning. She continues to complain of unspecified pain but does verbalize her understanding of no oxycodone. No additional complaints or concerns at this time. Physical Exam Physical Exam: General: No acute distress, nondiaphoretic. Appears fatigued and is intermittently paranoid. Skin: Warm, dry. No rashes or peripheral edema noted. Cardiac: Regular rate in 90s.. Well-perfused. Pulm: Normal respiratory effort. 92% on room air. Neuro: A&O x3 intermittently confused with time and place. No focal neurological deficits. Psych: Poor insight. Appears motivated to change. PG Care Time/CCT Total # of Minutes Spent Total Time Spent with Patient: Total time spent is greater than 50% in coordination of care (as documented) at patient's floor/unit and/or counseling patient: Coding Level of Care Code 83208 SUB INP/OBS CARE 2/35MIN Diagnoses Alcohol withdrawal F10.939 Complication of substance-induced condition: with unspecified complication Benzodiazepine withdrawal F13.939 Complication of substance-induced condition: with unspecified complication Intractable abdominal pain R10.9 Elevated LFTs R79.89 Portal vein thrombosis I81 (1) Alcohol withdrawal Complication of substance-induced condition: with unspecified complication Qualified Code(s): F10.939 - Alcohol use, unspecified with withdrawal, unspecified (2) Benzodiazepine withdrawal Complication of substance-induced condition: with unspecified complication Qualified Code(s): F13.939 - Sedative, hypnotic or anxiolytic use, unspecified with withdrawal, unspecified
[2025-05-25 20:13] VITALS: O2SAT 98
[2025-05-26 11:41] VITALS: PULSE 100; RESP 20; TEMP 97.9
--- NOTE | 2025-05-26 15:46 | Discharge Summary ---
Discharge Summary Date of Service May 26, 2025 Principal Dx & Hospital Course #1 = Principal Diagnosis (1) Alcohol withdrawal: (2) Benzodiazepine withdrawal: (3) Intractable abdominal pain: (4) Elevated LFTs: (5) Portal vein thrombosis: Plan This is a 44 year old female with past medical history of chronic pancreatitis, back/neck pain, alcohol abuse who presented to the ED on 05/19/2025 secondary to withdrawal symptoms. Clonazepam last filled 05/14 @ tapering dose but was taking @ usual dose (28 day supply); Oxycodone last filled 04/12. Alc level 304.3; tox screen + for marijuana & opiates - per patient she does have marijuana medical card. CT A/P showed findings consistent with chronic pancreatitis, hepatic steatosis. CXR was negative. #Alcohol abuse | Benzodiazepine withdrawal | Anxiety | Depression - was previously 17 months sober but drank in March, was admitted at [facility] for this. Unfortunately due to testing + for alcohol, she violated her contract w/ PCP for her chronic oxycodone + clonazepam use. - Serum osmol high @ 391 --> additional alcohol studies ordered including ethylene glycol (neg), methyl alcohol (neg) - Completed Librium taper 05/23 - Continue Thiamine/folic acid supplement - Psych consulted for management of anxiety/depression now being off clonazepam --> recommending Mirtazapine and Duloxetine daily. Vistaril 25mg PO q4h for anxiety/panic attacks. Will have patient set up with outpatient resources - information faxed by psych, patient called for her intake questionnaires, all information provided to patient - Continue increased Mirtazapine to 30mg HS & added scheduled gabapentin TID (previously prn) - Avoid benzos & oxycodone given she is unable to have them filled by PCP on outpatient basis --> continually asked staff for clonazepam or oxycodone, continued to reinforce she is unable to take these medications. #Transaminitis - resolved. Secondary to alcohol use - CT A/P: changes consistent w/ chronic pancreatitis, hepatic steatosis - TB 0.4, AST/ALT , AP 195 - Lipase WNL, troponin negative #Abdominal pain - secondary to withdrawal symptoms + component of gastritis + hx of cannabinoid hyperemesis syndrome - Continue PPI BID - Continue Pepcid BID in event it is alcohol related gastritis #Hypokalemia - continue 20meq daily #Hx portal vein thrombosis - continue Eliquis DVT prophylaxis: Eliquis Dispo: Discharged home 05/26 Notes For Next Care Provider Continue to reinforce that she is no longer allowed to have oxycodone or benzodiazepines. She was provided with resources for outpatient therapy and Suboxone clinic. The psychiatry department faxed the necessary information from their side. Patient has to make phone calls herself to complete the initial intake questionnaire. Nadja reports she completed these phone calls prior to discharge. Medication Changes From Visit See below Admission HPI Per Admitting Provider This is a 44 year old female with past medical history of chronic pancreatitis, back/neck pain, alcohol abuse who presented to the ED on 05/19/2025 secondary to withdrawal symptoms. Nadja was seen & examined this morning w/ her mother present. She reports that her PCP is refusing to fill both her clonazepam & oxycodone prescriptions. States that previously she has been on clonazepam for 12 years and oxycodone for 1-1.5 years. Oxycodone is used for chronic neck/back pain & chronic abdominal pain. She also has a medical marijuana card. Back in March, patient was admitted to [facility] & she tested positive for alcohol which is a breech of her contract for controlled substances. PCP did try to contact patient but she was a no show x 2. Her last prescription of Clonazepam was picked up on 05/14 which was supposed to be a tapering dose & oxycodone has not been filled since 04/12 which was an 11 day supply. The patient was tearful & anxious at time of my encounter. She states that she "feels like she is dying". She complained of chest/abdominal pain, tachycardia, nausea/vomiting, diarrhea. She denied any muscle aches. She states that she has been feeling like her heart is racing at home & she was having to use alcohol to help reduce the HR. She states that previous to drinking again she had been sober for about 17 months. She states that she did have 2 small glasses of wine prior to coming to the hospital today. She states that she has been struggling with anxiety/depression lately secondary to her friend passing away. States that she has been trying to get established with a psychiatrist outpatient & a therapist but it has not happened yet. She also states she has tried various antidepressants in the past, with one being Prozac that was not effective for her & made her feel worse. She is open to seeing our psychiatrist while here to help get her on a medication regimen. She denied any suicidal thoughts & states that she does want to live as she has a dog to take care of at home. She was agreeable to admission for withdrawal symptoms. While in the ED CBC & BMP were stable. Her LFTs were mildly elevated w/ a AST of 164 and ALT of 77. Alk phos elevated at 351. TB WNL. Lipase WNL. Troponin WNL. Urinalysis negative for infection. Drug screen positive for opiates and marijuana. Alcohol level significantly elevated at 304.3. CTAP shows findings consistent with chronic pancreatitis, hepatic steatosis. CXR was negative. Discharge Exam General: No acute distress, nondiaphoretic. Skin: Warm, dry. No rashes or peripheral edema noted. Cardiac: Regular rate in 90s. Well-perfused. Pulm: Normal respiratory effort. 98% on room air. Neuro: A&O x3. No focal neurological deficits. Psych: Poor insight. Appears motivated to change. Discharge Plan Discharge Items Patient Disposition: Home - Self-Care Reason For Visit: WITHDRAWL Discharge Diagnosis: Anxiety, alcohol withdrawal, benzodiazepine withdrawal Condition on Discharge: Good Activity: Resume your previous activity Non-emergency contact: Primary Care Provider, Psychiatrist and Therapist Call non-emergency contact if: you have any medication questions and your s ymptoms worsen Follow-up/Referrals: Radha Alicea MD [Primary Care Provider] - (Follow-up in 1-2 weeks. Patient would prefer a different provider within the same office.) Diet: Regular Addtl Attending Provider Instructions: Nadja, You were admitted to the hospital with with anxiety and alcohol and benzodiazepine withdrawal. You have finished your withdrawal protocol treatment. You were seen by psychiatry who provided you with additional resources for the outpatient setting and adjusted some of your medications. You are medically stable for discharge home. Your prescriptions have been sent to the [facility] pharmacy on [facility]. New medications: * Take duloxetine 40 mg daily. This is to treat anxiety. * Take hydroxyzine 25 mg every 4 hours as needed for anxiety. * Take mirtazapine 30 mg daily. This helps with depression/anxiety as well as sleep and appetite stimulation. * Take famotidine 20 mg twice daily. This decreases the amount of acid produced in the stomach. * Take thiamine (vitamin B1) 100 mg daily. Follow-up with your PCP office within 1-2 weeks. Complete the intake forms needed for your outpatient appointments as instructed by the psychiatry team. It was a pleasure taking care of you while you were in the hospital! Pending Studies at Discharge: No Stand-Alone Forms: My [facility], Smoking Cessation Medications and DC Order Prescriptions: New hydroxyzine HCl 25 mg Tablet 25 mg PO Q4H PRN (Reason: anxiety) Qty: 30 0RF duloxetine 20 mg Capsule,Delayed Release(Dr/Ec) 40 mg PO QAM Qty: 30 0RF thiamine HCl (vitamin B1) 100 mg Tablet 100 mg PO QAM Qty: 30 0RF famotidine 20 mg Tablet 20 mg PO BID Qty: 60 0RF mirtazapine 15 mg Tablet 30 mg PO HS Qty: 30 0RF Continued mecobalamin (vitamin B12) [B12 Active] 1,000 mcg tablet,chewable 1,000 mcg PO QAM Qty: 100 0RF baclofen 20 mg tablet 20 mg PO TID PRN (Reason: neck pain/muscle spasm) Qty: 270 3RF Eliquis 5 mg tablet 5 mg PO BID Qty: 90 3RF methocarbamol 750 mg tablet 750 mg PO TID PRN (Reason: pain) Qty: 90 1RF gabapentin 600 mg tablet 600 mg PO TID PRN (Reason: Pain) Qty: 90 0RF pantoprazole 40 mg tablet,delayed release (DR/EC) 40 mg PO BID Qty: 180 3RF Mirena 21 mcg/24hr (up to 8 yrs) 52 mg intrauterine device 1 device intrauterine DIRECTED sumatriptan succinate 100 mg tablet 100 mg PO DAILY PRN (Reason: migraine/headache) Qty: 20 3RF Rx Instructions: TAKE 1 TABLET BY MOUTH NEEDED FOR MIGRAINE/HEADACHE. MAY REPEAT 1 DOSE AFTER 1-2 HOURS cholecalciferol (vitamin D3) 250 mcg (10,000 unit) capsule 250 mcg PO QAM promethazine 25 mg tablet 25 mg PO Q6H PRN (Reason: nausea and vomiting) Qty: 30 0RF folic acid 1 mg tablet 1 mg PO QAM Creon 36,000-114,000- 180,000 unit Capsule,Delayed Release(Dr/Ec) 3 cap PO AC Qty: 180 0RF Rx Instructions: Even before snacks ondansetron 4 mg tablet,disintegrating 4 mg PO Q6H PRN (Reason: nausea and vomiting) Qty: 30 0RF potassium chloride [Klor-Con M20] 20 mEq tablet,ER particles/crystals 20 meq PO DAILY Qty: 30 0RF Discontinued clonazepam 0.5 mg tablet 0.5 mg PO DAILY PRN (Reason: anxiety) Rx Instructions: orally twice a day PRN; TAPERING OFF - Take 1/2 tablet twice daily alternating w/ once daily every other day for two weeks - Then take 1/2 tablet once daily for two weeks. - Then take 1/2 tablet every other day for two weeks - Then stop Discharge Orders: Discharge Order (Routine); Ordered 05/26/25 Ordered By: Scarlett Varghese Admission Data Admit Date/Time: 05/19/25 12:18 Attending Provider: Damian Del Castillo Admit Provider: Ariel Chavez Primary Care Provider: Radha Alicea Other Providers: Ariel Chavez; Pam Pike; Kevin Mohr; Jade Alcala; Jennifer Beaver; Montana Carreon; Maria D Gan; Doreen Roman; Elizabeth Venegas Hospital Stay Data Consultations 05/19/25 11:49 ED Decision to Admit Stat 05/19/25 13:48 Consult Psychiatry Routine Diagnostic Imagining Performed Chest X-Ray 05/19/25 09:34 XR chest 1V portable CLINICAL HISTORY: Chest pain, nonspecific COMPARISON STUDY: 04/01/2025 FINDINGS: Heart size and pulmonary vasculature are normal. Stable mildly hyperexpanded lungs. No consolidation or pleural effusion. No pneumothorax. IMPRESSION: No acute findings. ACT 112: Negative or not required by law. Electronically signed by: Kevin Knox M.D. 05/19/2025 9:49 AM Abdomen/Pelvis CT 05/19/25 10:50 CT SCAN OF THE ABDOMEN AND PELVIS WITH IV CONTRAST CLINICAL HISTORY: Abdominal pain. COMPARISON STUDY: CT of the abdomen and pelvis March 18, 2025, MRCP April 01, 2025 and KUB April 04, 2025 TECHNIQUE: Following the IV administration of 94 cc of Optiray 320, CT scan of the abdomen and pelvis is performed from the lung bases to the proximal femora. Images are reviewed in the axial, sagittal, and coronal planes. IV contrast was administered without complication. A dose lowering technique was utilized adhering to the principles of ALARA. CT DOSE: 367.45 mGy.cm FINDINGS: Visualized portions of the lung bases are unremarkable. There is no pneumatosis, free air or portal venous gas. There are no hepatic lesions. There is hepatic steatosis. Mild biliary ductal dilatation is unchanged. The common bile duct measures 1 cm in caliber. This is likely related to previous cholecystectomy. There is no pancreatic ductal dilatation. Hypodensity within the pancreatic head and uncinate process with associated multifocal calcifications is similar to prior exam. There is minimal adjacent stranding. This was also shown on prior exam. No well-defined lesion is identified by CT. Spleen, adrenal glands and kidneys are unremarkable with exception of small bilateral renal calculi. There are no ureteral calculi. There is no hydronephrosis. Bladder is mildly distended. The appendix is normal. There is no evidence for a bowel obstruction. The right colon is fluid-filled with mild wall thickening, decreased compared to prior CT. Major vasculature is patent. IMPRESSION: 1. Hypodensity with associated multifocal calcifications within the pancreatic head and uncinate process suggestive of the sequela of chronic pancreatitis. No lesion identified however imaging follow-up to ensure stability is recommended to exclude the less likely possibility of an underlying mass. No change in minimal adjacent infiltration which may be chronic however acute on chronic pancreatitis could appear similar. Findings could be correlated as lipase level. 2. No change in biliary ductal dilatation. This is likely related to cholecystectomy although correlation with obstructive liver function tests is recommended. 3. Hepatic steatosis. 4. No bowel obstruction. Normal appendix. 5. Mildly fluid-filled right colon with minimal wall thickening, decreased since prior exam. This may represent a mild colitis. ACT 112: Negative or not required by law. Electronically signed by: José Miguel Bruno M.D. 05/19/2025 11:36 AM Pending Results Patient Have Any Pending Studies at Discharge: No Discharge Instructions Given to Patient (Per Discharging Provider) Nadja, You were admitted to the hospital with with anxiety and alcohol and benzo diazepine withdrawal. You have finished your withdrawal protocol treatment. You were seen by psychiatry who provided you with additional resources for the outpatient setting and adjusted some of your medications. You are medically stable for discharge home. Your prescriptions have been sent to the [facility] pharmacy on [address] New medications: * Take duloxetine 40 mg daily. This is to treat anxiety. * Take hydroxyzine 25 mg every 4 hours as needed for anxiety. * Take mirtazapine 30 mg daily. This helps with depression/anxiety as well as sleep and appetite stimulation. * Take famotidine 20 mg twice daily. This decreases the amount of acid produced in the stomach. * Take thiamine (vitamin B1) 100 mg daily. Follow-up with your PCP office within 1-2 weeks. Complete the intake forms needed for your outpatient appointments as instructed by the psychiatry team. It was a pleasure taking care of you while you were in the hospital! Total Time Total Time Spent Total Time Spent (In Minutes): Greater than 30 minutes spent completing this discharge process including direct patient care, medication reconciliation, documentation, review of labs and images, and coordination of care. Coding Level of Care Code 28782 INP/OBS DISCH >30 MIN Diagnoses Alcohol withdrawal F10.939 Complication of substance-induced condition: with unspecified complication Benzodiazepine withdrawal F13.939 Complication of substance-induced condition: with unspecified complication Intractable abdominal pain R10.9 Elevated LFTs R79.89 Portal vein thrombosis I81
[2025-05-26 15:51] VITALS: BP 118/84
== END 2025-05-26 16:11 | disposition home or self-care (01) | DRG 896 ==
LOC: SUATTDRO → ED 09:08 → 2E 12:18 → SUATTDRO 12:18 → 2E 13:30

== ENCOUNTER 2025-06-15 09:19 | Observation (INO) ==
[2025-06-15 09:24] VITALS: TEMP 98.1
[2025-06-15 09:53] LABS: Hematocrit (blood only) 41.8 % (37.0-47.0); Hemoglobin 13.8 g/dl (12.0-16.0); Immature Granulocytes # (auto) 0.02 K/uL (0.01-0.20); Immature Granulocytes % (auto) 0.3 %; Mean Corpuscular Hemoglobin 29.1 pg (25.0-34.0); Mean Corpuscular Volume 88.0 fL (80.0-100.0); Platelet Count 411 K/uL (130-400); RDW Standard Deviation 46.6 fL (36.4-46.3); Red Blood Count 4.75 M/uL (4.20-5.40); White Blood Count 7.64 K/ul (4.8-10.8)
[2025-06-15] MEDS: SODIUM CHLORIDE 0.9% 1,000 ML IV ONE (10:03)
--- NOTE | 2025-06-15 10:06 | Emergency Department Note ---
Impression & Plan Chronic pancreatitis, Dehydration ED Provider Note NAME: ADA DYSON AGE: 44 SEX: F : 1980 ARRIVES VIA: Walk-In INFORMANT: Patient, ED PROVIDER(S): Chauncey Garcia MD CHIEF COMPLAINT: Epigastric pain HPI: This is a 44-year-old female presenting for epigastric pain. Patient has history of alcohol use disorder and was recently diagnosed with pancreatitis by 1 month ago. She complains of similar symptoms of the past 1 week. She notes abdominal pain, nausea, vomiting, dehydration. She notes excruciating epigastric pain and cannot tolerate fluids. She does use marijuana. She drank 2 beers 3 to 4 days ago. Denies any urinary symptoms. Denies any shortness of breath, chest pain. She reports burning in her esophagus. ROS: See above HPI for pertinent positives & negatives. A total of 10 systems reviewed and were otherwise negative. PAST MEDICAL HISTORY: See Below PAST SURGICAL HISTORY: See Below FAMILY HISTORY: See Below SOCIAL HISTORY: See Below HOME MEDICATIONS: See Below ALLERGIES: See Below VITALS: See Below PHYSICAL EXAMINATION: General: Thin, chronically ill-appearing Head: Normocephalic and atraumatic Eyes: Normal inspection, extraocular muscles intact Ear, nose, throat: Normal external exam Neck: Normal range of motion Respiratory: lungs clear to auscultation bilaterally Cardiovascular: Regular rate/rhythm, no murmur GI: soft, nontender, no guarding or rebound Extremities: nontender, moves all extremities Neuro: The patient awake and alert, appropriately conversive, no focal deficits, symmetric faces Skin: Warm, dry, and intact MEDICAL DECISION MAKING: This is a 44-year-old female present for epigastric pain. Will do screening blood work to assess for pancreatitis and dehydration. She is tachycardic between 110 and 125. Will give fluids for resuscitation currently. - Blood reveals no leukocytosis or anemia. - Electrolytes show hypokalemia to 3. Slight hypochloremia, anion gap of 13. No transaminitis. Lipase negative - Urinalysis negative for UTI -Patient has a full resuscitation with downtrending heart rate from 140s to 90s. -She still has further symptoms including abdominal pain, nausea. Will be the patient for chronic pancreatitis - Discussed care with Dr. Calhoun for admission Differential diagnosis: Pancreatitis, cyclic vomiting syndrome, cholecystitis, hepatitis, diverticulitis, SBO, UTI Independent History obtained from: [facility] interpreted by me: ECG: ECG independently interpreted by me with sinus tachycardia, rate of 102, normal ND, normal QRS, normal QTc, no ST segment elevations consistent with STEMI criteria, T wave inversions in the inferior leads Cardiac Monitoring: An order was placed for continuous cardiac monitoring. The monitor shows a rate of 86 with sinus rhythm. Past Med/Surg History Problem List (Updated 06/15/25 @ 17:25 by Chauncey Garcia MD) Dehydration (Acute) Depression Insomnia Alcohol use disorder Benzodiazepine withdrawal (Acute) Alcohol withdrawal (Acute) Alcohol abuse (Acute) Ileus Abnormal MRI of abdomen Candidiasis of mouth and esophagus Chronic alcoholic pancreatitis Elevated LFTs (Acute) Intractable vomiting with nausea (Acute) Intractable abdominal pain (Acute) Acute pancreatitis (Acute) Acute colitis Acute dehydration (Acute) Hypomagnesemia (Acute) Intractable nausea and vomiting (Acute) Calcific tendinitis of right shoulder Cannabinoid hyperemesis syndrome Hypocalcemia (Acute) Hypomagnesemia (Acute) Hypokalemia (Acute) Pancolitis (Acute) Tobacco abuse Leukocytosis Hematochezia Intractable abdominal pain Nausea & vomiting (Acute) History of gastritis History of alcohol abuse Restless leg syndrome Medical marijuana use Chronic prescription opiate use Chronic prescription benzodiazepine use Chronic abdominal pain (Acute) Chronic pain syndrome Right ankle sprain Tendinitis of both rotator cuffs Intertrigo Gastroparesis Low serum cortisol level Other cervical disc degeneration at C6-C7 level Degeneration of thoracolumbar intervertebral disc T12-L1 Other cervical disc degeneration at C5-C6 level Elevated hemidiaphragm Generalized anxiety disorder with panic attacks Portal vein thrombosis (~2019) Gastritis Dental decay Chronic pancreatitis (Acute) Per records Hiatal hernia (Chronic) Medical History Medical marijuana use Chronic pancreatitis Chronic abdominal pain Portal vein thrombosis (2019) on eliquis Gastroparesis per pt is severe, following with [facility] Pancreatic pseudocyst Pancolitis Adjustment disorder with depressed mood Per records History of seizure due to alcohol withdrawal 2020, "from either alcohol or clonazepam" PTSD (post-traumatic stress disorder) Hx of migraines Iron deficiency anemia Hiatal hernia Nocturnal hypoxia Noted during previous hospitalizations per patient, plan for future sleep study (not scheduled until 07/2024 per patient) Degeneration of thoracolumbar intervertebral disc History of colitis Cervical radiculopathy Cervical spondylosis Anxiety and depression Tendinitis of right rotator cuff Ongoing Acne Cream every 4-6 months GERD (gastroesophageal reflux disease) Panic attacks hx Peptic ulcer disease hx Surgical History H/O oral surgery History of breast biopsy History of esophagogastroduodenoscopy (EGD) 2017 History of cholecystectomy History of tooth extraction History of lumpectomy of right breast "benign" Family History Father Family history of diabetes mellitus Myocardial infarction Hypertension Stroke Grandfather (Maternal) Family history of diabetes mellitus Grandmother (Maternal) Family history of diabetes mellitus Cancer Hypertension Mother Hypothyroidism Grandfather (Paternal) Heart problem Cancer Grandmother (Paternal) Hypertension Other No family history of adverse response to anesthesia Denies family history of Ovarian cancer Prostate cancer Breast cancer Colorectal cancer Social History Smoking Status: Current every day smoker Tobacco Type: Cigarettes Age Started Using Tobacco: 15; packs per day: 0.5; Cigarettes Per Day: 10-15; Second Hand Exposure: No; Do You Dip or Chew Tobacco: No; Hx Alcohol Use: Yes Alcohol type: wine Hx Substance Use: Yes Last Used Substance: Hours (ago) Last Used Substance Other:: last used yesterday Substance Use Type Other:: medical card for sleep/anx Preferred Language: Nepali Communication Ability: Effective Visual Impairment: No Limitations Hearing Ability: Normal Director Religious Education Required: No Beliefs That Will Affect Care: None marital status: Single Current Living Situation: Parent Current Living Situation Comment: home with mother and dog current occupational status: employed current occupation: at [employer] How many Children do You have: 0 Feels Safe at Home: Yes Childhood Exposure to Second-Hand Smoke: No Diet: regular Diet Comment: regular Dental Care, Regularly: Yes Physical Activity Frequency: Does not Exercise Seatbelt Use: always Sunscreen Use: Yes Do you think of yourself as: straight/heterosexual Assistive Devices: None Allergies Allergies Allergy/AdvReac Type Severity Reaction Status Date / Time buspirone [From BuSpar] Allergy Severe Unconscious, Verified 06/15/25 13:05 seizures quetiapine [From Seroquel] Allergy Severe Unconscious, Verified 06/15/25 13:05 seizures capsaicin AdvReac Intermediate Redness of Verified 06/15/25 13:05 Skin citalopram [From Celexa] AdvReac Intermediate Vomiting Verified 06/15/25 13:05 morphine AdvReac Intermediate Vomiting Verified 06/15/25 13:05 vilazodone [From Viibryd] AdvReac Intermediate Vomiting Verified 06/15/25 13:05 metoclopramide AdvReac Unknown "Twitchy" Verified 06/15/25 13:05 Home Meds Home Medications Medication Instructions Recorded Confirmed cholecalciferol (vitamin D3) 250 250 mcg PO QAM 08/18/23 06/15/25 mcg (10,000 unit) capsule levonorgestrel 21 mcg/24 hr (up to 1 device intrauterine DIRECTED 08/16/24 06/15/25 8 years) 52 mg intrauterine device (Mirena) folic acid 1 mg tablet 1 mg PO QAM 02/17/25 06/15/25 buprenorphine 8 mg-naloxone 2 mg 1 film sublingual BID 06/15/25 06/15/25 sublingual film clonazepam 0.5 mg tablet 0.25 mg PO DAILY PRN Anxiety 06/15/25 06/15/25 Previous Rx's Medication Instructions Recorded mecobalamin (vitamin B12) 1,000 1,000 mcg PO QAM #100 tabs 01/20/24 mcg chewable tablet (B12 Active) pantoprazole 40 mg tablet,delayed 40 mg PO BID #180 tabs 10/11/24 release baclofen 20 mg tablet 20 mg PO TID PRN neck pain/muscle 10/20/24 spasm #270 tabs apixaban 5 mg tablet (Eliquis) 5 mg PO BID #90 tabs 01/12/25 sumatriptan succinate 100 mg tablet 100 mg PO DAILY PRN 02/03/25 migraine/headache #20 tabs methocarbamol 750 mg tablet 750 mg PO TID PRN pain #90 tabs 03/30/25 nasbbo-drnvnujo-jbcdaxt 3 cap PO AC #180 caps 04/08/25 36,000-114,000-180,000 unit capsule,delay rel (Creon) ondansetron 4 mg disintegrating 4 mg PO Q6H PRN nausea and 04/08/25 tablet vomiting #30 tabs potassium chloride 20 mEq 20 meq PO DAILY #30 tabs 04/08/25 tablet,extended release(part/cryst) (Klor-Con M) famotidine 20 mg tablet 20 mg PO BID #60 tabs 05/26/25 hydroxyzine HCl 25 mg tablet 25 mg PO Q4H PRN anxiety #30 tabs 05/26/25 promethazine 25 mg tablet 25 mg PO Q6H PRN nausea and 05/26/25 vomiting #30 tabs thiamine HCl (vitamin B1) 100 mg 100 mg PO QAM #30 tabs 05/26/25 tablet gabapentin 600 mg tablet 600 mg PO TID PRN Pain #90 tabs 05/31/25 Results & Data (ED) Vital Signs Vital Signs - 24 hr 06/15/25 09:22 06/15/25 09:28 06/15/25 10:00 Temperature 36.7 C Temperature Source Temporal Artery Scan Pulse Rate 142 H 112 H Pulse Rate [Apical] Pulse Rate from SpO2 Sensor Respiratory Rate 18 Respiratory Effort / Characteristics Non-Labored Spontaneous Respiratory Depth Normal Blood Pressure 131/92 Blood Pressure [Right Arm] Blood Pressure Mean 105 Blood Pressure Mean [Right Arm] Blood Pressure Position Sitting Blood Pressure Position [Right Arm] Pulse Oximetry 100 Oxygen Delivery Method Room Air Room Air Sepsis Recent Fever Within 48 Hours No Sepsis New/Unexplained Change in Mental Status No Sepsis Action Taken by Nursing No Action Required 06/15/25 10:00 06/15/25 11:00 06/15/25 12:00 Temperature Temperature Source Pulse Rate 114 H 100 H 97 H Pulse Rate [Apical] Pulse Rate from SpO2 Sensor 114 H Respiratory Rate 16 16 16 Respiratory Effort / Characteristics Respiratory Depth Blood Pressure 116/90 116/80 111/74 Blood Pressure [Right Arm] Blood Pressure Mean 98 92 93 Blood Pressure Mean [Right Arm] Blood Pressure Position Blood Pressure Position [Right Arm] Pulse Oximetry 95 96 95 Oxygen Delivery Method Room Air Room Air Room Air Sepsis Recent Fever Within 48 Hours Sepsis New/Unexplained Change in Mental Status Sepsis Action Taken by Nursing 06/15/25 12:30 06/15/25 13:03 06/15/25 13:56 Temperature Temperature Source Pulse Rate 97 H 108 H Pulse Rate [Apical] 86 Pulse Rate from SpO2 Sensor 97 H Respiratory Rate 14 19 Respiratory Effort / Characteristics Non-Labored Spontaneous Respiratory Depth Normal Blood Pressure Blood Pressure [Right Arm] 122/86 Blood Pressure Mean Blood Pressure Mean [Right Arm] 98 Blood Pressure Position Blood Pressure Position [Right Arm] Semi-fowlers Pulse Oximetry 98 96 Oxygen Delivery Method Room Air Sepsis Recent Fever Within 48 Hours Sepsis New/Unexplained Change in Mental Status Sepsis Action Taken by Nursing Laboratory Data 06/15/25 09:34 06/15/25 10:34 Lab Results 06/15/25 06/15/25 06/15/25 Range/Units 09:34 09:59 10:34 WBC 7.64 (4.8-10.8) K/ul RBC 4.75 (4.20-5.40) M/uL Hgb 13.8 (12.0-16.0) g/dl Hct 41.8 (37.0-47.0) % MCV 88.0 (80.0-100.0) fL MCH 29.1 (25.0-34.0) pg MCHC 33.0 (32.0-36.0) g/dL RDW Std Deviation 46.6 H (36.4-46.3) fL RDW Coeff of Jessica 14.5 (11.5-14.5) % Plt Count 411 H (130-400) K/uL MPV 9.7 (9.4-12.4) fL Immature Gran % (Auto) 0.3 % Neut % (Auto) 68.5 % Lymph % (Auto) 21.6 % Coffee % (Auto) 7.5 % Eos % (Auto) 1.4 % Baso % (Auto) 0.7 % Neut # (Auto) 5.24 (1.40-6.50) K/uL Lymph # (Auto) 1.65 (1.20-3.40) K/uL Coffee # (Auto) 0.57 (0.11-0.59) K/uL Eos # (Auto) 0.11 (0.00-0.50) K/uL Baso # (Auto) 0.05 (0.00-0.20) K/uL Immature Gran # (Auto) 0.02 (0.01-0.20) K/uL Sodium 135 L (136-145) mmol/L Potassium TNP 3.0 L Chloride 93 L (98-107) mmol/L Carbon Dioxide 29 (21-32) mmol/L Anion Gap 13 H (3-11) BUN 7 (6-23) mg/dl Creatinine 0.68 (0.6-1.2) mg/dl Est Cr Clr Drug Dosing 86.4 ml/min eGFR 109.38 BUN/Creatinine Ratio 10.3 (10-20) Glucose 160 H (70-99(Fasting)) mg/dl Calcium 9.1 (8.6-10.3) mg/dl Total Bilirubin 1.3 H (0.2-1.0) mg/dl AST TNP 25 ALT 23 (7-52) U/L Alkaline Phosphatase 263 H (34-104) U/L Troponin I High Sens 3.3 (0-14) pg/ml Total Protein 7.7 (6.0-8.3) gm/dl Albumin 4.8 (3.4-5.0) gm/dl Globulin 2.9 (2.5-4.0) gm/dl Albumin/Globulin Ratio 1.7 (0.9-2) Lipase 15 (11-82) U/L HCG, Qual Negative (Negative) Urine Color Yellow Urine Appearance Clear (Clear) Urine pH 6.0 (4.5-7.5) Ur Specific [place] 1.016 (1.000-1.030) Urine Protein Negative (Negative) Urine Glucose (UA) Negative (Negative) Urine Ketones 1+ H (Negative) Urine Blood 1+ H (Negative) Urine Nitrite Negative (Negative) Urine Bilirubin Negative (Negative) Urine Urobilinogen Negative (Negative) Ur Leukocyte Esterase 1+ H (Negative) Urine WBC (Auto) 0-5 (0-5) /hpf Urine RBC (Auto) 6-10 H (0-2) /hpf U Hyaline Cast (Auto) 0-2 (0-2) /lpf U Epithel Cells (Auto) 0-2 (0-2) /hpf Urine Bacteria (Auto) None Seen (None Seen) Urine Comment Administered Medications Gabapentin (Gabapentin 600 Mg Tab) 600 mg PO TID ON LICENSE OF [facility] Stop: 07/15/25 15:44 Last Admin: 06/15/25 16:00 Dose: 600 mg Documented By: CAP Lactated Ringer's (Lr) 1,000 mls @ 125 mls/hr IV .Q8H CIRO Stop: 06/18/25 15:27 Last Admin: 06/15/25 15:59 Dose: 125 mls/hr Documented By: CAP Acetaminophen (Ofirmev) 1,000 mg in 100 mls @ 400 mls/hr IV Q8H PRN PRN Reason: Mild Pain (Scale 1, 2, 3) Stop: 06/18/25 15:27 Last Infusion: 06/15/25 16:31 Dose: Infused Documented By: Admin: 06/15/25 15:59 Dose: 400 mls/hr Documented By: TRACY Ondansetron HCl (Ondansetron Inj 2 Mg/Ml 2 Ml Vial) 4 mg IV Q6H CIRO Stop: 07/15/25 15:27 Last Admin: 06/15/25 16:00 Dose: 4 mg Documented By: TRACY Sucralfate (Sucralfate 1 Gm/10 Ml Udc) 1 gm PO AC CIRO Stop: 07/15/25 16:29 Last Admin: 06/15/25 16:05 Dose: 1 gm Documented By: TRACY Discontinued Medications Al Hydrox/Mg Hydrox/Simethicone (Aluminum/Magnesium Susp 30 Ml Udc) 30 ml PO NOW STA Stop: 06/15/25 11:41 Last Admin: 06/15/25 11:47 Dose: 30 ml Documented By: BANDAR Sodium Chloride (Nss) 1,000 mls @ 999 mls/hr IV .Q1H1M ONE Stop: 06/15/25 11:01 Last Infusion: 06/15/25 11:33 Dose: Infused Documented By: Admin: 06/15/25 10:03 Dose: 999 mls/hr Documented By: DOC Acetaminophen (irmev) 1,000 mg in 100 mls @ 400 mls/hr IV NOW STA Stop: 06/15/25 11:54 Last Infusion: 06/15/25 12:40 Dose: Infused Documented By: Admin: 06/15/25 11:48 Dose: 400 mls/hr Documented By: BANDAR Famotidine (Pepcid 20mg Iv Push) 20 mg in 5 mls @ 2.5 mls/min IV NOW STA Stop: 06/15/25 15:29 Last Admin: 06/15/25 16:00 Dose: 2.5 mls/min Documented By: TRACY Pantoprazole Sodium (Protonix) 40 mg in 10 mls @ 5 mls/min IV NOW ONE Stop: 06/15/25 15:29 Last Admin: 06/15/25 16:00 Dose: 5 mls/min Documented By: TRACY Ondansetron HCl (Ondansetron Inj 2 Mg/Ml 2 Ml Vial) 4 mg IV NOW STA Stop: 06/15/25 12:42 Last Admin: 06/15/25 12:59 Dose: 4 mg Documented By: HEATHER Discharge Plan Visit Data Chief Complaint: Vomiting Stated Complaint: VOMITING, PAINFUL BREATHING ED Provider: Chauncey Garcia Discharge Problem: Chronic pancreatitis, Dehydration Patient Disposition: Admitted As Inpatient Condition: Fair
[2025-06-15 10:23] LABS: Appearance Urine Clear (Clear); Bacteria Urine Automated None Seen (None Seen); Cast Urine Automated 0-2 /lpf (0-2); Epithelial Cell Urine Auto 0-2 /hpf (0-2); Glucose Urine UA Negative (Negative); WBC Urine Automated 0-5 /hpf (0-5)
[2025-06-15 10:23] LABS: Alanine Aminotransferase 23 U/L (7-52); Albumin Globulin Ratio 1.7 (0.9-2); Alkaline Phosphatase 263 U/L (34-104); Anion Gap 13 (3-11); Bilirubin,Total 1.3 mg/dl (0.2-1.0); Blood Urea Nitrogen 7 mg/dl (6-23); Calcium 9.1 mg/dl (8.6-10.3); Carbon Dioxide 29 mmol/L (21-32); Chloride 93 mmol/L (98-107); Creatinine Clr Calc Pharmacy 86.4 ml/min; Globulin 2.9 gm/dl (2.5-4.0); Glucose 160 mg/dl (70-99(Fasting)); Lipase 15 U/L (11-82); Pregnancy Test, Serum Negative (Negative); Sodium 135 mmol/L (136-145); Total Protein 7.7 gm/dl (6.0-8.3)
[2025-06-15 11:18] LABS: Potassium 3.0 mmol/L (3.5-5.1)
[2025-06-15] MEDS: ALUMINUM/MAGNESIUM SUSP 30 ML UDC PO STA (11:47)
[2025-06-15] MEDS: ACETAMINOPHEN 1,000 MG/100 ML VIAL IV STA (11:48)
[2025-06-15] MEDS: ONDANSETRON INJ 2 MG/ML 2 ML VIAL IV STA (12:59)
[2025-06-15 13:04] VITALS: O2SAT 96
--- NOTE | 2025-06-15 14:10 | History & Physical Report ---
Date of Service June 15, 2025 Assessment & Plan (1) Intractable vomiting with nausea: (2) Acute dehydration: (3) Chronic alcoholic pancreatitis: (4) Chronic pain syndrome: Plan # Intractable nausea vomiting and dehydrationbeau has had progressive nausea and vomiting over the last week, now really cannot hold down fluids, her mucous membranes are dry and she is tachycardic suggesting volume depletion. While this could relate to her gastroparesis/functional GI disorder versus pancreatitis, her history (progressive and triggered most by stress) and her exam (without much epigastric tenderness) coupled with labs (normal lipase) makes me more suspicious that this relates to her gastroparesis +/- elements of functional dyspepsia rather than chronic pancreatitis - for the dehydration/volume depletionIV fluids and follow - for the nausea/vomitingagain suspect more likely to be gastroparesis/functional GI over pancreatitis (although obviously ongoing serial exams/etc.)IV Protonix twice daily, IV Pepcid twice daily, Carafate before every meal, scheduled Zofran for 24 hours, then as needed. Compazine and Phenergan as 2nd and 3rd line as needed for nausea, respectively. Discussed that the actual pain should hopefully improve with treatment of the GI symptoms/etiology itself far more than specifically with pain medicationsalso discussed the limitations with multiple pain medicines given it being more GI pain (discussed that Tylenol would be safe but probably not wildly effective, Toradol probably will be reasonably helpful for the pain, but over time/accumulated doses we will need to consider cessation due to gastritis risk, and given my biggest suspicion that the gastroparesis plays a role, narcotics would be probably "1 step forward, 2 steps back" providing temporary relief from the pain but slowing down her whole GI tract)with that in mind, we will take the aggressive approach for mucosal protection and symptomatic care, and utilize Tylenol/Toradol for pain at this time, and in addition to her regular home medications. Can obviously adjust the course as needed - chronically, given that this seems to be much more in line with gastroparesis and/or functional dyspepsia than chronic pancreatitis, we discussed in depth how much these functional GI disorders are heavily influenced by stress, and therefore very "mind/body"discussing that working with her psychiatrist is quite helpful for the anxiety itself, but she definitely would benefit from techniques she can do on her own/stress management techniquesand we discussed both active and quiet/meditative stress management techniques. I suppose cannabis hyperemesis syndrome could play a role, but given the lack of pathognomonic relief with heat/hot showers/etc., and given the overall clinical picture seeming to fit more with a truly functional upper GI disorder, we will keep this as a differential lower in probability at this time. #Portal vein thrombosis/prior alcoholic liver diseasefortunately other than a mild elevation of bilirubin and alk phos, her numbers look quite respectable. Applauded her sobriety. Continue Eliquis #alcohol abuseoutside of a short relapse, she has been predominantly sober for about the last year and a half. Applauded this. Continue thiamine, folate, B12. Follow clinically #Diarrheaon review of previou sCAT scans, I do not see chronic constipationso this probably truly is a degree of diarrhea (which makes me the more suspicious of more of a truly functional rather than purely gastroparesis pathophysiology going on with her nausea and vomiting) follow clinically. Further workup if necessary. #chronic pancreatitissee above, could be playing a role in her primary reason for being here, but my clinical suspicion is that this lies more in the functional/gastroparesis arena at this time. Continue Creon before every meal. #DVT prophylaxisanticoagulated on Eliquis as it relates to the portal vein thrombosis #Chronic painchronically on Suboxonecontinue this; continue her gabapentin and methocarbamol. Follow clinically. History of Present Illness Chief Complaint: Abdominal pain, intractable nausea and vomiting Primary Care Provider: Mariola Linda PA-C patient is a very pleasant 44-year-old female who notes that she is coming in after about a week and a half of intractable nausea and vomiting. Notes that when if she left the hospital she was feeling better, was able to eat dinner. Over the ensuing days, stress started to become a bigger deal, and for the last week and 1/2 to 2 weeks she has had progressively worse epigastric abdominal pain, nausea, vomiting, and now over the last few days some diarrhea. She remains sober. She notes that stress seems to be the main factor. There has been no blood in her vomit, a tiny bit of blood in her stool recently. The diarrhea is about 5 episodes largely in the morning, watery, and then seems to not be a problem for the rest of the day. The vomiting has been very pervasive, including pretty much everything she eats drinks or medications. She came to the hospital after feeling like she needed outside help. She has been working on her anxiety as far as seeing her psychiatrist, but does not necessarily have a lot of stress management tools she is able to use at home. Allergies Allergy/AdvReac Type Severity Reaction Status Date / Time buspirone [From BuSpar] Allergy Severe Unconscious, Verified 06/15/25 13:05 seizures quetiapine [From Seroquel] Allergy Severe Unconscious, Verified 06/15/25 13:05 seizures capsaicin AdvReac Intermediate Redness of Verified 06/15/25 13:05 Skin citalopram [From Celexa] AdvReac Intermediate Vomiting Verified 06/15/25 13:05 morphine AdvReac Intermediate Vomiting Verified 06/15/25 13:05 vilazodone [From Viibryd] AdvReac Intermediate Vomiting Verified 06/15/25 13:05 metoclopramide AdvReac Unknown "Twitchy" Verified 06/15/25 13:05 Home Medications Medication Instructions Recorded Confirmed Type cholecalciferol (vitamin D3) 250 250 mcg PO QAM 08/18/23 06/15/25 History mcg (10,000 unit) capsule mecobalamin (vitamin B12) 1,000 1,000 mcg PO QAM #100 tabs 01/20/24 06/15/25 Rx mcg chewable tablet (B12 Active) levonorgestrel 21 mcg/24 hr (up to 1 device intrauterine DIRECTED 08/16/24 06/15/25 History 8 years) 52 mg intrauterine device (Mirena) pantoprazole 40 mg tablet,delayed 40 mg PO BID #180 tabs 10/11/24 06/15/25 Rx release baclofen 20 mg tablet 20 mg PO TID PRN neck pain/muscle 10/20/24 06/15/25 Rx spasm #270 tabs apixaban 5 mg tablet (Eliquis) 5 mg PO BID #90 tabs 01/12/25 06/15/25 Rx sumatriptan succinate 100 mg tablet 100 mg PO DAILY PRN 02/03/25 06/15/25 Rx migraine/headache #20 tabs folic acid 1 mg tablet 1 mg PO QAM 02/17/25 06/15/25 History methocarbamol 750 mg tablet 750 mg PO TID PRN pain #90 tabs 03/30/25 06/15/25 Rx zlbxwe-rqjjzyxi-bulscfy 3 cap PO AC #180 caps 04/08/25 06/15/25 Rx 36,000-114,000-180,000 unit capsule,delay rel (Creon) ondansetron 4 mg disintegrating 4 mg PO Q6H PRN nausea and 04/08/25 06/15/25 Rx tablet vomiting #30 tabs potassium chloride 20 mEq 20 meq PO DAILY #30 tabs 04/08/25 06/15/25 Rx tablet,extended release(part/cryst) (Klor-Con M) famotidine 20 mg tablet 20 mg PO BID #60 tabs 05/26/25 06/15/25 Rx hydroxyzine HCl 25 mg tablet 25 mg PO Q4H PRN anxiety #30 tabs 05/26/25 06/15/25 Rx promethazine 25 mg tablet 25 mg PO Q6H PRN nausea and 05/26/25 06/15/25 Rx vomiting #30 tabs thiamine HCl (vitamin B1) 100 mg 100 mg PO QAM #30 tabs 05/26/25 06/15/25 Rx tablet gabapentin 600 mg tablet 600 mg PO TID PRN Pain #90 tabs 05/31/25 06/15/25 Rx buprenorphine 8 mg-naloxone 2 mg 1 film sublingual BID 06/15/25 06/15/25 History sublingual film clonazepam 0.5 mg tablet 0.25 mg PO DAILY PRN Anxiety 06/15/25 06/15/25 History Past Med/Surg History Problem List Depression Insomnia Alcohol use disorder Benzodiazepine withdrawal (Acute) Alcohol withdrawal (Acute) Alcohol abuse (Acute) Ileus Abnormal MRI of abdomen Candidiasis of mouth and esophagus Chronic alcoholic pancreatitis Elevated LFTs (Acute) Intractable vomiting with nausea (Acute) Intractable abdominal pain (Acute) Acute pancreatitis (Acute) Acute colitis Acute dehydration (Acute) Hypomagnesemia (Acute) Intractable nausea and vomiting (Acute) Calcific tendinitis of right shoulder Cannabinoid hyperemesis syndrome Hypocalcemia (Acute) Hypomagnesemia (Acute) Hypokalemia (Acute) Pancolitis (Acute) Tobacco abuse Leukocytosis Hematochezia Intractable abdominal pain Nausea & vomiting (Acute) History of gastritis History of alcohol abuse Restless leg syndrome Medical marijuana use Chronic prescription opiate use Chronic prescription benzodiazepine use Chronic abdominal pain (Acute) Chronic pain syndrome Right ankle sprain Tendinitis of both rotator cuffs Intertrigo Gastroparesis Low serum cortisol level Other cervical disc degeneration at C6-C7 level Degeneration of thoracolumbar intervertebral disc T12-L1 Other cervical disc degeneration at C5-C6 level Elevated hemidiaphragm Generalized anxiety disorder with panic attacks Portal vein thrombosis (~2019) Gastritis Dental decay Chronic pancreatitis (Acute) Per records Hiatal hernia (Chronic) Medical History Medical marijuana use Chronic pancreatitis Chronic abdominal pain Portal vein thrombosis (2019) on eliquis Gastroparesis per pt is severe, following with [facility] Pancreatic pseudocyst Pancolitis Adjustment disorder with depressed mood Per records History of seizure due to alcohol withdrawal 2020, "from either alcohol or clonazepam" PTSD (post-traumatic stress disorder) Hx of migraines Iron deficiency anemia Hiatal hernia Nocturnal hypoxia Noted during previous hospitalizations per patient, plan for future sleep study (not scheduled until 07/2024 per patient) Degeneration of thoracolumbar intervertebral disc History of colitis Cervical radiculopathy Cervical spondylosis Anxiety and depression Tendinitis of right rotator cuff Ongoing Acne Cream every 4-6 months GERD (gastroesophageal reflux disease) Panic attacks hx Peptic ulcer disease hx Surgical History H/O oral surgery History of breast biopsy History of esophagogastroduodenoscopy (EGD) 2016 History of cholecystectomy History of tooth extraction History of lumpectomy of right breast "benign" Family History Father Family history of diabetes mellitus Myocardial infarction Hypertension Stroke Grandfather (Maternal) Family history of diabetes mellitus Grandmother (Maternal) Family history of diabetes mellitus Cancer Hypertension Mother Hypothyroidism Grandfather (Paternal) Heart problem Cancer Grandmother (Paternal) Hypertension Other No family history of adverse response to anesthesia Denies family history of Ovarian cancer Prostate cancer Breast cancer Colorectal cancer Social History Smoking Status: Current every day smoker Tobacco Type: Cigarettes Age Started Using Tobacco: 15; packs per day: 0.5; Cigarettes Per Day: 10-15; Second Hand Exposure: No; Do You Dip or Chew Tobacco: No; Hx Alcohol Use: Yes Alcohol type: wine Hx Substance Use: Yes Last Used Substance: Hours (ago) Last Used Substance Other:: last used yesterday Substance Use Type Other:: medical card for sleep/anx Preferred Language: Latvian Communication Ability: Effective Visual Impairment: No Limitations Hearing Ability: Normal Aitchbone Breaker Required: No Beliefs That Will Affect Care: None marital status: Single Current Living Situation: Parent Current Living Situation Comment: home with mother and dog current occupational status: employed current occupation: at [employer] How many Children do You have: 0 Feels Safe at Home: Yes Childhood Exposure to Second-Hand Smoke: No Diet: regular Diet Comment: regular Dental Care, Regularly: Yes Physical Activity Frequency: Does not Exercise Seatbelt Use: always Sunscreen Use: Yes Do you think of yourself as: straight/heterosexual Assistive Devices: None Review of Systems Review of Systems: All systems reviewed & are unremarkable except as noted in HPI & below Physical Exam Physical Exam: In general she is awake and alert pleasant but appears to be moderately ill. HEENT normocephalic atraumatic mucous membranes slightly dry. Cardio is regular but tachycardic, no rubs murmurs or gallops. Lungs are clear without rales rhonchi or wheezes. Abdomen is soft she does have epigastric tenderness without guarding rebound or rigidity, and I do not feel upper abdominal wall trigger points. Extremities show no sinus clubbing or edema no calf tenderness. Neuro shows cranial nerves II through XII to be grossly intact gross motor and sensory are intact. Skin without rashes pallor or icterus. Labs and diagnostics reviewed. Results & Data Results & Data Vital Signs (Past 12 Hours) Vital Signs Temp Pulse Pulse Resp BP BP Pulse Ox 06/15/25 13:56 108 H 06/15/25 13:03 86 19 122/86 96 06/15/25 12:30 97 H 14 98 06/15/25 12:00 97 H 16 111/74 95 06/15/25 11:00 100 H 16 116/80 96 06/15/25 10:00 114 H 16 116/90 95 06/15/25 10:00 112 H 06/15/25 09:28 06/15/25 09:22 98.1 F 142 H 18 131/92 100 O2 Del Method 06/15/25 13:56 06/15/25 13:03 Room Air 06/15/25 12:30 06/15/25 12:00 Room Air 06/15/25 11:00 Room Air 06/15/25 10:00 Room Air 06/15/25 10:00 06/15/25 09:28 Room Air 06/15/25 09:22 Room Air Code Status & VTE Plan VTE Prophylaxis Plan VTE Prophylaxis will be ordered: Yes PG Care Time/CCT Total # of Minutes Spent Total Time Spent with Patient: Total time spent is greater than 50% in coordination of care (as documented) at patient's floor/unit and/or counseling patient: Coding Level of Care Code 71538 INT INP/OBS CARE 3/75MIN Diagnoses Intractable vomiting with nausea R11.2 Acute dehydration E86.0 Chronic alcoholic pancreatitis K86.0 Chronic pain syndrome G89.4
[2025-06-15] MEDS ORDERED: PROMETHAZINE HCL INJ 25 MG/ML 1 ML VIAL IM PRN (15:28)
[2025-06-15] MEDS ORDERED: KETOROLAC 30 MG/ML VIAL IV PRN (15:28)
[2025-06-15] MEDS ORDERED: PROCHLORPERAZINE 10 MG in SYRINGE 8 ML IV PRN (15:28)
[2025-06-15] MEDS ORDERED: MELATONIN 3 MG TAB PO PRN (15:28)
[2025-06-15] MEDS ORDERED: METHOCARBAMOL 750 MG TABLET PO PRN (15:28)
[2025-06-15] MEDS ORDERED: BACLOFEN 20 MG TAB PO PRN (15:28)
[2025-06-15] MEDS ORDERED: POLYETHYLENE (MIRALAX) 17 GM PACK PO PRN (15:28)
[2025-06-15] MEDS ORDERED: LEVONORGESTREL IU SCH (15:28)
[2025-06-15] MEDS ORDERED: [UNRECOGNIZED DRUG - OTHER] IU SCH (15:28)
[2025-06-15] MEDS ORDERED: ALUMINUM/MAGNESIUM SUSP 30 ML UDC PO PRN (15:28)
[2025-06-15] MEDS ORDERED: MAGNESIUM HYDROXIDE SUSP 30 ML UDC PO PRN (15:28)
[2025-06-15] MEDS: LACTATED RINGER'S 1,000 ML IV SCH (15:59)
[2025-06-15] MEDS: ACETAMINOPHEN 1,000 MG/100 ML VIAL IV PRN (15:59)
[2025-06-15] MEDS: PANTOprazole 40 MG/10 ML SYR IV ONE (16:00)
[2025-06-15] MEDS: GABAPENTIN 600 MG TAB PO SCH (16:00)
[2025-06-15] MEDS: ONDANSETRON INJ 2 MG/ML 2 ML VIAL IV SCH (16:00)
[2025-06-15] MEDS: FAMOTIDINE 20MG IV PUSH 20 MG/5 ML SYR IV STA (16:00)
[2025-06-15] MEDS: SUCRALFATE 1 GM/10 ML UDC PO SCH (16:05)
[2025-06-15] MEDS ORDERED: PANCREAZE (LIPASE 10,500U) CAP PO SCH (16:30)
[2025-06-15 16:31] VITALS: RESP 12
--- NOTE | 2025-06-15 16:54 | Discharge Summary ---
Discharge Summary Date of Service June 15, 2025 Principal Dx & Hospital Course #1 = Principal Diagnosis (1) Intractable vomiting with nausea: (2) Acute dehydration: (3) Chronic alcoholic pancreatitis: (4) Chronic pain syndrome: Plan several hours after initial admission, I was informed that patient had an emergency and wanted to leave against advice. Given that she is medically stable, but just here for symptom control, I did not feel the need for her to leave against advice, and all the negative implications that could possibly entail for her (which would also worsen her stress)and wrote discharge instructions. Encourage close PCP follow-up. Plan is the same as the assessment and plan for her H&Pas below # Intractable nausea vomiting and dehydrationbeau has had progressive nausea and vomiting over the last week, now really cannot hold down fluids, her mucous membranes are dry and she is tachycardic suggesting volume depletion. While this could relate to her gastroparesis/functional GI disorder versus pancreatitis, her history (progressive and triggered most by stress) and her exam (without much epigastric tenderness) coupled with labs (normal lipase) makes me more suspicious that this relates to her gastroparesis +/- elements of functional dyspepsia rather than chronic pancreatitis - for the dehydration/volume depletionIV fluids and follow - for the nausea/vomitingagain suspect more likely to be gastroparesis/functional GI over pancreatitis (although obviously ongoing serial exams/etc.)IV Protonix twice daily, IV Pepcid twice daily, Carafate before every meal, scheduled Zofran for 24 hours, then as needed. Compazine and Phenergan as 2nd and 3rd line as needed for nausea, respectively. Discussed that the actual pain should hopefully improve with treatment of the GI symptoms/etiology itself far more than specifically with pain medicationsalso discussed the limitations with multiple pain medicines given it being more GI pain (discussed that Tylenol would be safe but probably not wildly effective, Toradol probably will be reasonably helpful for the pain, but over time/accumulated doses we will need to consider cessation due to gastritis risk, and given my biggest suspicion that the gastroparesis plays a role, narcotics would be probably "1 step forward, 2 steps back" providing temporary relief from the pain but slowing down her whole GI tract)with that in mind, we will take the aggressive approach for mucosal protection and symptomatic care, and utilize Tylenol/Toradol for pain at this time, and in addition to her regular home medications. Can obviously adjust the course as needed - chronically, given that this seems to be much more in line with gastroparesis and/or functional dyspepsia than chronic pancreatitis, we discussed in depth how much these functional GI disorders are heavily influenced by stress, and therefore very "mind/body"discussing that working with her psychiatrist is quite helpful for the anxiety itself, but she definitely would benefit from techniques she can do on her own/stress management techniquesand we discussed both active and quiet/meditative stress management techniques. I suppose cannabis hyperemesis syndrome could play a role, but given the lack of pathognomonic relief with heat/hot showers/etc., and given the overall clinical picture seeming to fit more with a truly functional upper GI disorder, we will keep this as a differential lower in probability at this time. #Portal vein thrombosis/prior alcoholic liver diseasefortunately other than a mild elevation of bilirubin and alk phos, her numbers look quite respectable. Applauded her sobriety. Continue Eliquis #alcohol abuseoutside of a short relapse, she has been predominantly sober for about the last year and a half. Applauded this. Continue thiamine, folate, B12. Follow clinically #Diarrheaon review of previou sCAT scans, I do not see chronic constipationso this probably truly is a degree of diarrhea (which makes me the more suspicious of more of a truly functional rather than purely gastroparesis pathophysiology going on with her nausea and vomiting) follow clinically. Further workup if necessary. #chronic pancreatitissee above, could be playing a role in her primary reason for being here, but my clinical suspicion is that this lies more in the functional/gastroparesis arena at this time. Continue Creon before every meal. #DVT prophylaxisanticoagulated on Eliquis as it relates to the portal vein thrombosis #Chronic painchronically on Suboxonecontinue this; continue her gabapentin and methocarbamol. Follow clinically. Notes For Next Care Provider Medication Changes From Visit None Admission HPI Per Admitting Provider patient is a very pleasant 44-year-old female who notes that she is coming in after about a week and a half of intractable nausea and vomiting. Notes that when if she left the hospital she was feeling better, was able to eat dinner. Over the ensuing days, stress started to become a bigger deal, and for the last week and 1/2 to 2 weeks she has had progressively worse epigastric abdominal pain, nausea, vomiting, and now over the last few days some diarrhea. She remains sober. She notes that stress seems to be the main factor. There has been no blood in her vomit, a tiny bit of blood in her stool recently. The diarrhea is about 5 episodes largely in the morning, watery, and then seems to not be a problem for the rest of the day. The vomiting has been very pervasive, including pretty much everything she eats drinks or medications. She came to the hospital after feeling like she needed outside help. She has been working on her anxiety as far as seeing her psychiatrist, but does not necessarily have a lot of stress management tools she is able to use at home. Updated Medication List Medication Instructions Recorded Confirmed Type cholecalciferol (vitamin D3) 250 250 mcg PO QAM 08/18/23 06/15/25 History mcg (10,000 unit) capsule mecobalamin (vitamin B12) 1,000 1,000 mcg PO QAM #100 tabs 01/20/24 06/15/25 Rx mcg chewable tablet (B12 Active) levonorgestrel 21 mcg/24 hr (up to 1 device intrauterine DIRECTED 08/16/24 06/15/25 History 8 years) 52 mg intrauterine device (Mirena) pantoprazole 40 mg tablet,delayed 40 mg PO BID #180 tabs 10/11/24 06/15/25 Rx release baclofen 20 mg tablet 20 mg PO TID PRN neck pain/muscle 10/20/24 06/15/25 Rx spasm #270 tabs apixaban 5 mg tablet (Eliquis) 5 mg PO BID #90 tabs 01/12/25 06/15/25 Rx sumatriptan succinate 100 mg tablet 100 mg PO DAILY PRN 02/03/25 06/15/25 Rx migraine/headache #20 tabs folic acid 1 mg tablet 1 mg PO QAM 02/17/25 06/15/25 History methocarbamol 750 mg tablet 750 mg PO TID PRN pain #90 tabs 03/30/25 06/15/25 Rx pbozam-ssadxpgy-foekryw 3 cap PO AC #180 caps 04/08/25 06/15/25 Rx 36,000-114,000-180,000 unit capsule,delay rel (Creon) ondansetron 4 mg disintegrating 4 mg PO Q6H PRN nausea and 04/08/25 06/15/25 Rx tablet vomiting #30 tabs potassium chloride 20 mEq 20 meq PO DAILY #30 tabs 04/08/25 06/15/25 Rx tablet,extended release(part/cryst) (Klor-Con M) famotidine 20 mg tablet 20 mg PO BID #60 tabs 05/26/25 06/15/25 Rx hydroxyzine HCl 25 mg tablet 25 mg PO Q4H PRN anxiety #30 tabs 05/26/25 06/15/25 Rx promethazine 25 mg tablet 25 mg PO Q6H PRN nausea and 05/26/25 06/15/25 Rx vomiting #30 tabs thiamine HCl (vitamin B1) 100 mg 100 mg PO QAM #30 tabs 05/26/25 06/15/25 Rx tablet gabapentin 600 mg tablet 600 mg PO TID PRN Pain #90 tabs 05/31/25 06/15/25 Rx buprenorphine 8 mg-naloxone 2 mg 1 film sublingual BID 06/15/25 06/15/25 History sublingual film clonazepam 0.5 mg tablet 0.25 mg PO DAILY PRN Anxiety 06/15/25 06/15/25 History Hospital Stay Data Consultations 06/15/25 12:45 ED Decision to Admit Stat Pending Results Patient Have Any Pending Studies at Discharge: No Discharge Instructions Given to Patient (Per Discharging Provider) as we discussed, right now your symptoms appeared much more consistent with the functional disorders of your upper GI tract (gastroparesis and likely elements of functional dyspepsiagastroparesis affects the motor nerves/stomach emptying, functional dyspepsia affects the sensory nerves)given the way you examined and a normal lipase level, I fortunately do not think it was the chronic pancreatitis at play at this time (it is a little bit difficult to tell given that you need to leave the hospital before we had a chance for serial exams and ongoing monitoringbut at least at "first impression" I suspect this was more gastroparesis and functional dyspepsia - stay hydrateddrink 60-80 ounces of fluid a day. If you are unable to do so, definitely come backit is pretty much impossible to feel better if you are playing against dehydration - take the Pepcid twice a day and Protonix twice a day for now (hopefully this will be "indefinite short term") but both of those can be helpful. It can also be helpful to coat your stomach with things like a small dose of Mylanta before each meal (it could accentuate the diarrhea, but if it helps your stomach transi ently feel better so that you can eat better, that may be worth it) - if this is related to the gastroparesis/functional dyspepsia angle far more than the chronic pancreatitis, like we discussed often this is one of the most "mind/body" diagnoses that we take care ofand start to build more tools for stress management (remember that working with your psychiatrist is working to treat the underlying anxiety, but that does not necessarily convey a day today stress management techniqueswhich are also critically important, given that improving anxiety is a very long process, but stressful things will happen every day by varying degrees). - Follow-up with your PCP later this week - if you worsen, we are absolutely here for you! Total Time Total Time Spent Total Time Spent (In Minutes): <30
--- NOTE | 2025-06-15 16:55 | Billing Data ---
Date of Service June 15, 2025 Coding Level of Care Code 14060 IN/OBS DISCH 30 MIN/LESS
[2025-06-15 17:05] VITALS: BP 122/86; PULSE 86
[2025-06-15] MEDS ORDERED: FAMOTIDINE 20MG IV PUSH 20 MG/5 ML SYR IV SCH (18:00)
[2025-06-15] MEDS ORDERED: PANTOprazole 40 MG/10 ML SYR IV SCH (21:00)
[2025-06-15] MEDS ORDERED: BUPRENORPHINE/NALOXONE 8/2 MG TAB SL SCH (21:00)
[2025-06-15] MEDS ORDERED: APIXABAN 5 MG TABLET PO SCH (21:00)
[2025-06-16] MEDS ORDERED: POTASSIUM CHLORIDE CRTAB 20 MEQ TABCR PO SCH (09:00)
[2025-06-16] MEDS ORDERED: THIAMINE HCL 100 MG TAB PO SCH (09:00)
[2025-06-16] MEDS ORDERED: CYANOCOBALAMIN (B-12) 500 MCG TABLET PO SCH (09:00)
[2025-06-16] MEDS ORDERED: CHOLECALCIFEROL 125 MCG (5,000 UNITS) TAB PO SCH (09:00)
[2025-06-16] MEDS ORDERED: FOLIC ACID 1 MG TAB PO SCH (09:00)
--- NOTE | 2025-06-18 07:47 | Electrocardiogram Report ---
Test Reason : Blood Pressure : */* mmHG Vent. Rate : 102 BPM Atrial Rate : 102 BPM P-R Int : 154 ms QRS Dur : 78 ms QT Int : 348 ms P-R-T Axes : -17 -5 0 degrees QTcB Int : 453 ms Sinus tachycardia Otherwise normal ECG When compared with ECG of 19-May-2025 09:24, Questionable change in QRS axis Non-specific change in ST segment in Inferior leads T wave inversion now evident in Inferior leads Nonspecific T wave abnormality now evident in Anterior leads Confirmed by Bry Quintana ([id number]) on 06/18/2025 7:47:24 AM Referred By: REFERRED SELF Confirmed By: Bry Quintana
== END 2025-06-15 17:04 | disposition home or self-care (01) ==
LOC: EDINP 09:19 → ED 09:19 → EDINP 18:04